=== PATIENT | female | born 1945 | race Caucasian/White ===

== ENCOUNTER → 2017-01-04 | Emergency (ER) | payer MEDICARE, MEDICAID ==
[~2017-01-04] VITALS: Ht 172.7 cm; Wt 100.0 kg
[~2017-01-04] MED LIST: ACET-2047 PO; ALPR0.25 PO; ALPR0.5T PO; AMLO5TAB4 PO; ARGI1POW19 PO; ASCO500C7 PO; BUDE0.5A INHALATION; BUDE1AMP INHALATION; CLOT15CR4 TP; CYAN500T46 PO; DIPH25CA6 PO; DOCU-144 PO; DULR PR; FER325 PO; FOLI-49 PO; HYDR-3671 PO; IPRA3AMP INHALATION; LEVA1.2527 INHALATION; METO25TA4 PO; MULTI PO; ONDA-43 PO; PANT40TA3 PO; RIVA20TA PO; SILD20TA13 PO; SS SC; UDROBAC PO; ZINC220C5 PO
--- NOTE | 2017-01-04 22:37 | ERA ---
ER Documentation Chief Complaint Date/Time DATE: 01/04/17 TIME: 22:37 Chief Complaint Abnormal lab HPI The patient is a 71-year-old female, presenting to the ER because of low hemoglobin 7.6 and low hematocrit 25.1 on January 03, 2017. She is unable to provide any history, the history is obtained per the stewardess supervisor and intermediate notes Past medical history: Chronic respiratory failure, history of gastrointestinal bleed, atrial fibrillation, anxiety, chronic respiratory failure, COPD, dysphagia, CAD, CHF, peripheral vascular disease, hypertension,pulmonary fibrosis Past surgical history: Tracheostomy. She had a colonoscopy that showed polyps and EGD that showed gastritis in October 2016 ROS All systems reviewed and are negative except as per history of present illness. Medications Home Meds Reported Medications Insulin Human Regular (Novolin-R U-100) 100 Unit/Ml Soln, 0 SC SLIDING SCALE AC , EA WITH MEALS 71-150 = 0 UNITS 151-200 = 2UNITS 201-250 = 4 UNITS 251-300 = 6 UNITS 301-350 = 8 UNITS 351-400 = 10 UNITS FOR BLOOD SUGAR ABOVE 400 GIVE 12 UNITS AND NOTIFY MD 01/04/17 Budesonide* (Budesonide*) 0.5 Mg/2 Ml Ampul.neb, 0.5 MG INHALATION BID, AMP 01/04/17 Alprazolam* (Xanax*) 0.25 Mg Tablet, 0.25 MG PO Q6 Y for ANXIETY, TAB 01/04/17 Ondansetron Hcl* (Zofran*) 4 Mg Tab, 4 MG PO Q6H Y for NAUSEA AND OR VOMITING, TAB 10/31/16 Levalbuterol Hcl* (Xopenex*) 1.25 Mg/3 Ml Vial.neb, 1.25 MG INHALATION Q6H Y for WHEEZING AND SOB, EA 10/31/16 Rivaroxaban* (Xarelto*) 20 Mg Tablet, 20 MG PO WITH DINNER, TAB 10/31/16 Ascorbic Acid* (Vitamin C*) 500 Mg Capsule.sa, 500 MG PO BID, CAP 10/31/16 Acetaminophen* (Acetaminophen*) 650 Mg Tablet, 650 MG PO Q4 Y for PAIN AND OR ELEVATED TEMP, #30 TAB 10/31/16 Sildenafil Citrate* (Revatio*) 20 Mg Tab, 20 MG PO TID, TAB 10/31/16 Pantoprazole* (Protonix*) 40 Mg Tablet.dr, 40 MG PO DAILY, TAB 10/31/16 Amlodipine Besylate* (Norvasc*) 5 Mg Tablet, 5 MG PO DAILY, TAB HOLD FOR SBP<110 OR PULSE<60 10/31/16 Multivitamins* (Theragran*) 1 Tab Tab, 1 TAB PO DAILY, TAB 10/31/16 Metoprolol Tartrate* (Lopressor*) 25 Mg Tablet, 25 MG PO BID, #60 TAB 10/31/16 Ipratropium-Albuterol (Ipratropium-Albuterol) 0.5-3 Mg/3 Ml Ampul.neb, 1 DOSE INHALATION Q6, #30 VIAL 10/31/16 Hydralazine Hcl* (Hydralazine Hcl*) 25 Mg Tab, 25 MG PO Q6H Y for ELEVATED BLOOD PRESSURE, #60 TAB 10/31/16 Guaifenesin-Codeine Phosphate* (Robitussin* AC) 5 Ml Syrup, 5 ML PO Q6H Y for COUGH, ML 10/31/16 Folic Acid* (Folic Acid*) 1 Mg Tablet, 1 MG PO DAILY, TAB 10/31/16 Ferrous Sulfate* (Ferrous Sulfate*) 325 Mg Tabec, 325 MG PO BID, TAB 10/31/16 Bisacodyl* (Bisacodyl*) 10 Mg Supp, 10 MG IN DAILY Y for CONSTIPATION, SUPP 10/31/16 Acetaminophen* (Acetaminophen*) 650 Mg Tablet, 650 MG PO Q4 Y for FEVER, #30 TAB 10/31/16 Discontinued Reported Medications Zinc Sulfate* (Zinc Sulfate*) 220 Mg Cap, 220 MG PO DAILY, CAP 10/31/16 Alprazolam* (Xanax*) 0.5 Mg Tab, 0.5 MG PO BID Y for ANXIETY, TAB 10/31/16 Cyanocobalamin* (Vitamin B12*) 500 Mcg Tab, 1000 MCG PO DAILY, TAB 10/31/16 Budesonide* (Pulmicort*) 1 Mg/2 Ml Ampul.neb, 1 DOSE INHALATION BID, #60 AMP 10/31/16 Clotrimazole/Betamethasone Dip (Lotrisone Cream) 15 Gm Cream..g., 1 APPLIC TP BID 10/31/16 Insulin Human Regular (Novolin-R U-100) 100 Unit/Ml Soln, 0-12 SC BID WITH MEALS , EA 10/31/16 Docusate Sodium* (Colace*) 100 Mg Capsule, 100 MG PO BID, #60 CAP 10/31/16 Diphenhydramine Hcl* (Diphenhydramine Hcl*) 25 Mg Capsule, 25 MG PO Q6 Y for ITCHING, CAP 10/31/16 Arginine/Ascorbate Sod/Antonio AC (Arginaid Powder) 1 Each Powd.pack, 1 EACH PO BID 10/31/16 Allergies Allergies: Coded Allergies: No Known Allergy (Unverified , 10/31/16) PMhx/Soc History of Surgery: No Anesthesia Reaction: No Hx Neurological Disorder: No Hx Respiratory Disorders: Yes (Pulmonary fibroids, trach to vent, COPD) Hx Cardiac Disorders: Yes (HTN, heart failure) Hx Psychiatric Problems: Yes (Anxiety) Hx Miscellaneous Medical Probl: Yes (Morbid obesity) Hx Alcohol Use: No Hx Substance Use: No Hx Tobacco Use: No Physical Exam Vitals Vital Signs Date Time Temp Pulse Resp B/P Pulse Ox O2 Delivery O2 Flow Rate FiO2 01/05/17 01:10 77 20 98 40 01/05/17 01:06 98.6 01/05/17 00:00 74 20 122/56 100 Mechanical Ventilator 01/04/17 22:42 92 26 144/99 97 Mechanical Ventilator 01/04/17 22:40 83 27 99 40 01/04/17 22:39 97.6 108 21 144/99 95 Physical Exam Const: No acute distress. Head: Atraumatic. Eyes: Normal Conjunctiva. ENT: Normal External Ears, Nose and Mouth. Neck: Full range of motion. No meningismus. Tracheostomy Resp: Clear to auscultation bilaterally. Cardio: Regular rate and rhythm, no murmurs. Abd: Soft, non distended, normal bowel sounds, non tender. Skin: No petechiae or rashes. Back: No midline or flank tenderness. Ext: No cyanosis, or edema. Neur: Limited due to her condition Psych: Limited due to her condition Result Diagram: 01/04/17225701/04/172257 Results 24 hrs Laboratory Tests Test 01/04/17 22:58 Activated Partial Thromboplast Time 32.8Sec Alanine Aminotransferase (ALT/SGPT) 31IU/L Albumin 3.6g/dl Albumin/Globulin Ratio 0.87 Alkaline Phosphatase 175IU/L Anion Gap 17 Aspartate Amino Transf (AST/SGOT) 23IU/L Blood Urea Nitrogen 27mg/dl Calcium Level 9.4mg/dl Carbon Dioxide Level 26mmol/L Chloride Level 102mmol/L Creatinine 1.39mg/dl Direct Bilirubin 0.00mg/dl Eosinophils # 2.410^3/ul Eosinophils % 21.0% Globulin 4.10g/dl Glucose Level 110mg/dl Hematocrit 26.3% Hemoglobin 8.0g/dl INR International Normalized Ratio 1.16 Indirect Bilirubin 0.1mg/dl Lymphocytes # 1.310^3/ul Lymphocytes % 11.0% Mean Corpuscular Hemoglobin 29.4pg Mean Corpuscular Hemoglobin Concent 30.4g/dl Mean Corpuscular Volume 96.7fl Mean Platelet Volume 9.2fl Monocytes # 0.110^3/ul Monocytes % 1.0% Neutrophils # 7.810^3/ul Neutrophils % 67.0% Platelet Count 50032^3/UL Potassium Level 4.9mmol/L Prothrombin Time 14.8Sec Prothrombin Time Ratio 1.2 Red Blood Count 2.7210^6/ul Red Cell Distribution Width 17.1% Sodium Level 140mmol/L Total Bilirubin 0.1mg/dl Total Protein 7.7g/dl White Blood Count 11.610^3/ul Procedures/MDM MEDICAL MAKING DECISION: The patient is a 71-year-old male, presenting with chronic anemia. He does not require any emergent blood transfusion. I do not suspect any acute GI bleeding. The differential diagnoses considered include but are not limited to gastritis, peptic ulcer disease, esophageal varices, Lita-Fontanez tear, carcinoma, polyp, hemorrhoid, fissure, diverticulosis, angiodysplasia. Departure Diagnosis: Primary Impression: Anemia Condition: Good Comments I discussed the finding with her physician Dr Elder Vasquez I discussed the findings with the patient and my discussion with Dr. Vasquez. I advised the patient to follow-up with the primary physician in about 1-2 days, sooner if needed and return if any concern. MAYLIN NATHAN MD Jan 04, 2017 22:37
[2017-01-04 22:39] VITALS: Ht 172.7 cm; Wt 100.0 kg
[2017-01-04 23:52] LABS: ABNORMAL IP MESSAGE 1; HEMATOCRIT 26.3 % (37.0-47.0); MEAN CORPUSCULAR HEMOGLOBIN 29.4 pg (29.0-33.0); MEAN CORPUSCULAR HGB CONC 30.4 g/dl (32.0-37.0); MEAN CORPUSCULAR VOLUME 96.7 fl (82.0-101.0); MEAN PLATELET VOLUME 9.2 fl (7.4-10.4); PLATELET COUNT 398 10^3/UL (140-415); RED BLOOD COUNT 2.72 10^6/ul (4.20-5.40); RED CELL DISTRIBUTION WIDTH 17.1 % (11.5-14.5); WHITE BLOOD COUNT 11.6 10^3/ul (4.8-10.8)
[2017-01-04 23:54] LABS: ADD SCAN DIFF YES
[2017-01-05 00:03] LABS: ALBUMIN 3.6 g/dl (3.3-4.9)
[2017-01-05 00:04] LABS: INR 1.16; PARTIAL THROMBOPLASTIN TIME 32.8 Sec (25.0-35.0); POTASSIUM 4.9 mmol/L (3.5-5.1); PROTIME 14.8 Sec (12.2-14.2); PT RATIO 1.2
[2017-01-05 00:06] LABS: ALBUMIN/GLOBULIN RATIO 0.87; BILIRUBIN,INDIRECT 0.1 mg/dl (0-1.1); BILIRUBIN,TOTAL 0.1 mg/dl (0.2-1.3); CALCIUM 9.4 mg/dl (8.4-10.2); CREATININE 1.39 mg/dl (0.44-1.00); TOTAL PROTEIN 7.7 g/dl (6.1-8.1)
[2017-01-05 01:06] VITALS: TEMP 98.6
[2017-01-05 01:33] LABS: EOSINOPHILS # 2.4 10^3/ul (0.0-0.5); LYMPHOCYTES # 1.3 10^3/ul (0.8-2.9); MONOCYTE # 0.1 10^3/ul (0.3-0.9); NEUTROPHIL # 7.8 10^3/ul (1.6-7.5)
[2017-01-05 03:55] VITALS: BP 107/58; PULSE 66; RESP 18
== END | disposition home or self-care (01) ==
LOC: E/R 22:29
DX: D64.9 Anemia, unspecified (principal); I10 Essential (primary) hypertension; I50.9 Heart failure, unspecified; I25.10 Atherosclerotic heart disease of native coronary artery without angina pectoris; J44.9 Chronic obstructive pulmonary disease, unspecified; E11.9 Type 2 diabetes mellitus without complications; E66.01 Morbid (severe) obesity due to excess calories; Z79.4 Long term (current) use of insulin; Z68.33 Body mass index [BMI] 33.0-33.9, adult
CPT/HCPCS: 36415; 80053; 85025; 85610; 85730; 86850; 86900; 86901; 93005; 94002

== ENCOUNTER → 2018-01-03 | Outpatient (CLI) | END | disposition home or self-care (01) ==

== ENCOUNTER 2018-03-05 13:12 | Inpatient (IN) | END 2018-03-19 20:50 | DRG 177 ==

== ENCOUNTER 2018-05-10 14:25 | Inpatient (IN) | END 2018-05-21 17:00 | DRG 207 ==

== ENCOUNTER 2018-07-23 21:43 | Inpatient (IN) | END 2018-07-31 21:15 | DRG 853 ==

== ENCOUNTER 2018-10-23 11:57 | Inpatient (IN) | END 2018-10-26 14:14 | DRG 291 ==

== ENCOUNTER 2018-10-27 07:39 | Inpatient (IN) | payer MEDICARE, OTHER ==
[~2018-10-27] VITALS: Ht 157.5 cm; Wt 86.9 kg
[2018-10-27] VITALS (23 sets, daily range): BP systolic 120–158; BP diastolic 58–132; PULSE 87–138; RESP 17–19; Ht 157.5 cm; Wt 86.9 kg
[~2018-10-27 07:39] MED LIST changes: -ACET-2047 PO; +ACET325T33 PO; +ALLO100T PO; -ALPR0.25 PO; -ALPR0.5T PO; -AMLO5TAB4 PO; -ARGI1POW19 PO; +ASC500 PO; -ASCO500C7 PO; +ATOR20TA38 PO; +BETH25TA PO; -BUDE0.5A INHALATION; -BUDE1AMP INHALATION; -CLOT15CR4 TP; +CYAN100080 PO; -CYAN500T46 PO; -DIPH25CA6 PO; -DULR PR; +EPO10ESRD SC; -HYDR-3671 PO; -IPRA3AMP INHALATION; +IPRA3AMP29 INHALATION; +L. A1CAP12 PO; +LANS30CA PO; -LEVA1.2527 INHALATION; +MAGN400O19 PO; +MEGE400O4 PO; -METO25TA4 PO; +MINE133E23 PR; +MULT-275 PO; -ONDA-43 PO; +ONDA4TAB13 PO; -RIVA20TA PO; -SILD20TA13 PO; -SS SC; -UDROBAC PO; -ZINC220C5 PO
[2018-10-27] MEDS ORDERED: SOD CHLORIDE 0.9% 1,000 ML IV STA (07:41)
[2018-10-27] MEDS ORDERED: DILTIAZEM 25 MG INJ IV ONE (08:00)
[2018-10-27] MEDS ORDERED: DILTIAZEM-D5W 125MG/125ML DRIP 125 ML IV STA (08:00)
[2018-10-27] MEDS ORDERED: CEFEPIME 2GM/50 ML (PMX) 50 ML IVPB STA (08:42)
[2018-10-27] MEDS ORDERED: SODIUM CHLORIDE 0.9% 1L BAG IV* STA (08:42)
[2018-10-27] MEDS ORDERED: VANCOMYCIN 1 GM (PMX) 250 ML IVPB ONE (09:00)
[2018-10-27] MEDS ORDERED: LORAZEPAM 2 MG INJ IV ONE (09:00)
[2018-10-27] MEDS ORDERED: DIPHENHYDRAMINE 50 MG INJ IV ONE (09:00)
--- NOTE | 2018-10-27 09:05 | ERD ---
ER Documentation Chief Complaint Chief Complaint evevated pulse rate x 30 minutes HPI This is a 73-year-old female trach to vent dependent patient who currently have been admitted to [place]. The patient was transferred to the emergency department after the patient had developed severe tachycardia. The patient's heart rate was 170. The patient has a history of congestive heart failure. The patient had no documentation of fevers. There is no coughing choking or gagging episode. The patient is bedbound. No further history is available. Upon reviewing the patient's medication list she does take digoxin. ROS All systems reviewed and are negative except as per history of present illness. Medications Home Meds Reported Medications Morphine Sulfate* (Morphine* Liq) 10 Mg/0.5 Ml Disp.syrin, 6 ML SL Q4H PRN for PAIN, ML 10/27/18 Metoprolol Tartrate* (Lopressor*) 25 Mg Tab, 25 MG PO BID, #60 TAB HOLD FOR SBP<110 OR HR<60 10/27/18 Levalbuterol Hcl* (Levalbuterol Hcl*) 1.25 Mg/0.5 Ml Vial.neb, 1.25 MG INHALATION Q6H, VIAL 10/27/18 Furosemide* (Lasix*) 20 Mg Tablet, 20 MG PO DAILY, TAB 10/27/18 Famotidine* (Famotidine*) 20 Mg Tablet, 20 MG PO DAILY, #30 TAB 10/27/18 Digoxin* (Digitek*) 125 Mcg Tablet, 0.125 MG PO DAILY, TAB 10/27/18 Collagenase* (Santyl*) 30 Gm Oint..gm., 1 APPLIC TOP .SOILED PRN for SOILED, #1 TUB 10/27/18 Ceftriaxone Na/Dextrose,Iso (Ceftriaxone 1 gm Piggyback) 1 Gm/50 Ml Froz.piggy, 1 GM IV Q24H START 10/25/18-11/01/18 10/27/18 Budesonide* (Budesonide*) 0.5 Mg/2 Ml Ampul.neb, 0.5 MG INHALATION BID, AMP 10/27/18 Apixaban* (Eliquis*) 2.5 Mg Tablet, 2.5 MG PO BID, TAB 10/27/18 Ipratropium-Albuterol (Ipratropium-Albuterol) 0.5-3 Mg/3 Ml Ampul.neb, 3 ML INHALATION Q6, #30 VIAL 10/22/18 Lansoprazole* (Lansoprazole*) 30 Mg Capsule.dr, 30 MG PO DAILY, CAP 10/22/18 Multivitamin with Minerals (Daily Vitamin Formula-Minerals) 1 Each Tablet, 1 EACH PO, TAB 10/22/18 Megestrol Acetate (Megestrol Acetate) 400 Mg/10 Ml Oral.susp, 400 MG PO BID, ML 10/22/18 Bethanechol Chloride* (Bethanechol Chloride*) 25 Mg Tablet, 25 MG PO TID, TAB 10/22/18 Ondansetron Hcl* (Zofran*) 4 Mg Tab, 4 MG PO Q6H PRN for NAUSEA AND OR VOMITING, TAB 05/10/18 L. Acidophilus/Pectin, [place] (Acidophilus Capsule) 1 Each Capsule, 1 EACH PO DAILY, CAP 05/10/18 Epoetin Amor (Epogen) 10,000 Units/Ml Soln, 1.5 ML SC Q MON,WED,FRI,5PM, VIAL 05/10/18 Cyanocobalamin* (Vitamin B-12*) 1,000 Mcg Tablet.sa, 1000 MCG PO BID, TAB 05/10/18 Folic Acid* (Folic Acid*) 1 Mg Tablet, 1 MG PO DAILY, TAB 05/10/18 Pantoprazole* (Protonix*) 40 Mg Tablet.dr, 40 MG PO QAM, TAB 05/10/18 Atorvastatin Calcium* (Atorvastatin Calcium*) 20 Mg Tablet, 20 MG PO QHS, #30 TAB 05/10/18 Allopurinol* (Allopurinol*) 100 Mg Tablet, 100 MG PO BID for GOUT, TAB 05/10/18 Mineral Oil* (Fleet* Mineral Oil Enema) 133 Ml Oil, 1 APPLIC AL NEEDED PRN for Q2DAYS, ENEMA 05/10/18 Magnesium Hydroxide* (Milk Of Magnesia*) 400 Mg/5 Ml Oral.susp, 30 ML PO Q24H PRN for PRN, ML 05/10/18 Docusate Sodium* (Colace*) 100 Mg Capsule, 100 MG PO Q9PM, #30 CAP 05/10/18 Ferrous Sulfate* (Ferrous Sulfate*) 325 Mg Tabec, 325 MG PO DAILY, TAB 05/10/18 Ascorbic Acid (Vitamin C) 500 Mg Tab, 500 MG PO DAILY, TAB 05/10/18 Multivitamins* (Theragran*) 1 Tab Tab, 1 TAB PO DAILY, TAB 05/10/18 Acetaminophen* (Tylenol*) 325 Mg Tablet, 650 MG PO NEEDED PRN for TRACH TUBE CHANGE, TAB 05/10/18 Discontinued Reported Medications Hydrocodone/Acetaminophen ([place] 5-325 Tablet) 1 Each Tablet, 1 EACH PO, TAB 10/22/18 Digoxin* (Lanoxin*) 0.125 Mg Tablet, 0.125 MG PO DAILY, TAB 10/22/18 Tramadol Hcl* (Ultram*) 50 Mg Tablet, 50 MG PO Q6H PRN for PAIN, TAB 10/22/18 Rivaroxaban* (Xarelto*) 20 Mg Tablet, 20 MG PO WITH DINNER, TAB 05/10/18 Metoprolol Tartrate* (Lopressor*) 50 Mg Tab, 50 MG PO BID, #60 TAB HOLD FOR SBP<110 OR HR<60 05/10/18 Bisacodyl* (Bisacodyl*) 10 Mg Supp, 10 MG AL Q24H for CONSTIPATION, SUPP 05/10/18 Acetaminophen* (Tylenol*) 500 Mg Tab, 1000 MG PO Q4H PRN for PAIN LEVEL 4-10, TAB 05/10/18 Acetaminophen* (Tylenol*) 325 Mg Tablet, 650 MG PO BID PRN for PAIN, TAB 05/10/18 Acetaminophen* (Tylenol*) 325 Mg Tablet, 650 MG PO Q4H PRN for MILD PAIN LEVEL 1-3, TAB and fever 101 and above 05/10/18 Allergies Allergies: Coded Allergies: No Known Allergy (Unverified , 10/27/18) PMhx/Soc History of Surgery: Yes (Trach ) Hx Neurological Disorder: No Hx Respiratory Disorders: Yes (Trach, Respiratory failure, Pulmonary fibrosis) Hx Cardiac Disorders: Yes (CHF, HTN, HLD, Afib) Hx Psychiatric Problems: No Hx Miscellaneous Medical Probl: Yes (Anemia) Smoking Status: Unknown if ever smoked Physical Exam Vitals Vital Signs Date Temp Pulse Resp B/P (MAP) Pulse Ox O2 O2 Flow FiO2 Time Delivery Rate 10/27/18 126 18 145/72 98 Mechanical 09:58 (96) Ventilator Trach Collar 10/27/18 156 18 60 08:47 10/27/18 98.0 151 20 152/88 100 BIPAP 08:11 (109) 10/27/18 98.9 168 20 152/88 100 07:45 (109) Physical Exam Constitutional:Well-developed. Debilitated bedbound patient HEENT:Normocephalic. Atraumatic.Pupils were equal round reactive to light and patient has left-sided gaze. Moist mucous membranes. NECK: No nuchal rigidity. No lymphadenopathy. No posterior cervical spine tenderness or step-offs. Tracheostomy site is clean dry and intact Respiratory: Not using accessory muscles of respiration.Lungs were clear to auscultation bilaterally. No rhonchi. No rales. No wheezing. Cardiovascular: Tachycardic with irregular regular rhythm. No murmurs. No rubs were appreciated.S1, S2 normal. Distal pulses are palpable 2+ bilaterally. GI: Abdomen was soft. Nontender. Non Distended. No pulsatile abdominal masses or bruits. No rebound. No guarding. Bowel sounds were present and normal. Muscle skeletal: Patient has no movement of the upper or lower extremities Skin: No petechia, no purpura. No lesions on the palms or the soles of the feet. No maculopapular rash. NEURO: Patient was alert with eyes open. Patient does not follow verbal command. Patient is aphasic and bedbound. Result Diagram: 10/27/1881310/27/18813 Results 24 hrs Laboratory Tests Test 10/27/18 08:14 10/27/18 09:25 White Blood Count 20.0 10^3/ul Red Blood Count 4.35 10^6/ul Hemoglobin 13.1 g/dl Hematocrit 44.7 % Mean Corpuscular Volume 102.8 fl Mean Corpuscular Hemoglobin 30.1 pg Mean Corpuscular Hemoglobin Concent 29.3 g/dl Red Cell Distribution Width 15.3 % Platelet Count 301 10^3/UL Mean Platelet Volume 10.0 fl Immature Granulocytes % 0.800 % Neutrophils % 89.2 % Lymphocytes % 7.5 % Monocytes % 2.4 % Eosinophils % 0.0 % Basophils % 0.1 % Nucleated Red Blood Cells % 0.1 /100WBC Immature Granulocytes # 0.170 10^3/ul Neutrophils # 17.8 10^3/ul Lymphocytes # 1.5 10^3/ul Monocytes # 0.5 10^3/ul Eosinophils # 0.0 10^3/ul Basophils # 0.0 10^3/ul Nucleated Red Blood Cells # 0.0 10^3/ul Prothrombin Time 14.2 Sec Prothrombin Time Ratio 1.1 INR International Normalized Ratio 1.09 Activated Partial Thromboplast Time 22.3 Sec Sodium Level 140 mmol/L Potassium Level 4.6 mmol/L Chloride Level 101 mmol/L Carbon Dioxide Level 26 mmol/L Anion Gap 13 Blood Urea Nitrogen 48 mg/dl Creatinine 1.55 mg/dl Est Glomerular Filtrat Rate mL/min mL/min Glucose Level 215 mg/dl Calcium Level 8.8 mg/dl Total Bilirubin 0.3 mg/dl Direct Bilirubin 0.00 mg/dl Indirect Bilirubin 0.3 mg/dl Aspartate Amino Transf (AST/SGOT) 32 IU/L Alanine Aminotransferase (ALT/SGPT) 45 IU/L Alkaline Phosphatase 81 IU/L Creatine Kinase < 20 IU/L Creatine Kinase Index Creatinine Kinase MB (Mass) 0.74 ng/ml Troponin I 0.092 ng/ml B-Type Natriuretic Peptide 20700 PG/ML Total Protein 6.6 g/dl Albumin 3.5 g/dl Globulin 3.10 g/dl Albumin/Globulin Ratio 1.12 Digoxin Level 0.9 ng/ml POC Venous Lactate 2.3 mmol/L Current Medications Medications Dose Sig/Ale Start Time Status Last (Trade) Ordered Route PRN Stop Time Admin Dose Reason Admin Diltiazem 20 mg ONCE ONCE 10/27/18 DC 10/27/18 HCl IV 08:00 07:59 (Cardizem Iv) 10/27/18 08:01 Sodium 1,000 ml @ Q1H STAT 10/27/18 DC 10/27/18 Chloride 1,000 mls/hr IV 07:41 07:58 10/27/18 08:40 Diltiazem 125 ml @ 5 ONCE STAT 10/27/18 10/27/18 HCl mls/hr IV 08:00 08:46 10/28/18 08:59 50 mg ONCE ONCE 10/27/18 DC 10/27/18 Diphenhydrami IV 09:00 08:38 ne HCl 10/27/18 (Benadryl) 09:01 Lorazepam 1 mg ONCE ONCE 10/27/18 DC 10/27/18 (Ativan) IV 09:00 08:39 10/27/18 09:01 Sodium 1,910 ml BOLUS OVER 2 10/27/18 DC 10/27/18 Chloride HOURS STAT 08:42 09:49 (NS) IV* 10/27/18 08:48 Cefepime HCl 50 ml @ ONCE STAT 10/27/18 DC 10/27/18 100 mls/hr IVPB 08:42 09:49 10/27/18 09:11 Vancomycin 250 ml @ ONCE ONCE 10/27/18 HCl 125 mls/hr IVPB 09:00 10/27/18 10:59 Amiodarone 100 ml ONCE STAT 10/27/18 DC 10/27/18 HCl IV* 09:18 09:38 (Cordarone 10/27/18 150mg/ D5W 09:19 Bolus) Digoxin 0.125 mg ONCE ONCE 10/27/18 DC (Digoxin) PO 09:30 10/27/18 09:31 1 inch ONCE STAT 10/27/18 DC 10/27/18 Nitroglycerin TD 09:20 09:30 10/27/18 (Nitroglyceri 09:23 n 2% Oint) Procedures/MDM This is a 73-year-old female that was transferred from [place] to the emergency department for evaluation of tachycardia. Patient was placed on a mammographer continuous pulse oximetry and IV access was established by nursing staff. The patient appeared to be in atrial fibrillation with rapid ventricular response. The patient was given 20 mg of Cardizem intravenously and started on a Cardizem drip with minimal improvement of the tachycardia. I obtained a digoxin level which was subtherapeutic and therefore administered digoxin and amiodarone to the patient. 12 Lead EKG tracing ordered and reviewed by myself showed: Irregular irregular rhythm with tachycardia 167 bpm and no arrhythmia. AL interval not present as P waves are not appreciated due to atrial fibrillation QRS duration normal. No ST segment elevation No ST segment depression. No changes consistent with acute ischemia. The patient had significant leukocytosis with white blood cell count of 20,000. Therefore I did obtain blood cultures and a lactic acid to evaluate for possible sepsis. However the patient was afebrile and did not initially meet Sirs criteria. IV fluids were given to the patient with a 30 cc/kg bolus of normal saline but this was monitored very closely in order to prevent fluid overload as the patient also has a history of congestive heart failure with a significantly elevated BNP. Blood pressure was controlled and nitroglycerin paste was placed onto the patient. Patient's infectious symptoms have not stabilized and the patient is at risk of rapid decompensation. The patient will be admitted for careful hydration, antibiotic therapy, and infectious source control. Severe Sepsis Assessment: Infectious Source: Unknown End organ damage indicated by: Lactate > 2.0 mmol/L Severe Sepsis Managment: Blood Cultures X 2 before broad spectrum antibiotics initiated within 3 hours of recognition. 30 ml/kg NS bolus Completed Initial Lactate: 2.3 Repeat Lactate pending I considered further perfusion assessment with CVP measurement, SCVO2, bedside ultrasound volume assessment, passive leg raise, trial of further fluid bolus. And preceded with gentle IV fluid hydration The patient will be admitted in serious condition to the intensive care unit under the care of Dr. Vasquez who is taking call for Dr. Phillips. Critical Care: Time: 80 minutes Treatments/Evaluations: Close monitoring and treatment of unstable vital signs, cardiorespiratory, and neurologic status, while maintaining tight balance of fluid, respiratory, and cardiac interventions. Time does not include performing any of the above billable procedures. Departure Diagnosis: Primary Impression: Atrial fibrillation with RVR Additional Impressions: CHF (congestive heart failure) Heart failure type: unspecified Heart failure chronicity: acute on chronic Qualified Codes: I50.9 - Heart failure, unspecified Sepsis Sepsis type: sepsis due to unspecified organism Qualified Codes: A41.9 - Sepsis, unspecified organism Condition: Serious HUSSEIN WORKMAN MD Oct 27, 2018 09:05
[2018-10-27] MEDS ORDERED: AMIODARONE 150MG/D5W BOLUS IV* STA (09:18)
[2018-10-27] MEDS ORDERED: NITROGLYCERIN 2% 1 GM OINT PKT TD STA (09:20)
[2018-10-27] MEDS ORDERED: DIGOXIN 0.125 MG TAB PO ONE (09:30)
[2018-10-27] MEDS ORDERED: APIX2.5T PO (10:29)
[2018-10-27] MEDS ORDERED: BUDE0.5A INHALATION (10:30)
[2018-10-27] MEDS ORDERED: CEFT1FRO2 IV (10:32)
[2018-10-27] MEDS ORDERED: SAN30GM TOP (10:33)
[2018-10-27] MEDS ORDERED: FAMO20TA18 PO (10:34)
[2018-10-27] MEDS ORDERED: DIGO125T PO (10:34)
[2018-10-27] MEDS ORDERED: FURO-110 PO (10:35)
[2018-10-27] MEDS ORDERED: LEVA1.25 INHALATION (10:37)
[2018-10-27] MEDS ORDERED: METO-448 PO (10:38)
[2018-10-27] MEDS ORDERED: MORP10DI10 SL (10:40)
[2018-10-27] MEDS ORDERED: MAGN400T28 PO (10:44)
[2018-10-27] MEDS ORDERED: MAGN400O19 PO (10:45)
[2018-10-27] MEDS ORDERED: METH40VI IV (10:48)
[2018-10-27] MEDS ORDERED: LORAZEPAM 2 MG INJ IV PRN (12:00)
[2018-10-27] MEDS ORDERED: DIGOXIN 500 MCG INJ IV ONE ×4 (12:00→18:00)
--- NOTE | 2018-10-27 12:00 | HP ---
Date/Time of Note Date/Time of Note DATE: 10/27/18 TIME: 11:56 Assessment/Plan VTE Prophylaxis Pharmacological prophylaxis: LMWH Lines/Catheters IV [facility] Saline Lock Urinary Cath still in place: Yes Reason Cath still needed: skin wounds contaminated by urine Assessment/Plan Hospital Course 1) atrial fibrillation - on cardizem drip - will try to restart digoxin IV since the patient is not tolerating oral medication 2) respiratory failure - on vent via trach - continue to monitor 3) possible seizure activity - ativan prn - consider neurology consult for possible EEG and other work up HPI/ROS Admit Date/Time Admit Date/Time Oct 27, 2018 at 08:14 Hx of Present Illness Patient with history of atrial fibrillation, hypertension, pulmonary edema, respiratory failure, COPD was inpatient at [facility] day prior to this current admission. Patient was transferred to [facility] for continued care of her respiratory failure. Early this morning, patient was noted to have worsening tachycardia with atrial fibrillation with possible seizure activity. Rapid response was called and because of her worsening condition, patient was transferred to the Emergency Room and then admitted to the ICU. PMH/Family/Social Past Medical History atrial fibrillation, respiratory failure, pulmonary fibrosis Medical History: coronary artery disease, hypertension Coded Allergies: No Known Allergy (Unverified , 10/27/18) Past Surgical History Past Surgical Hx: other Family History Significant Family History: no pertinent family hx Social History Smoking Status: Unknown if ever smoked Exam/Review of Systems Vital Signs Vitals Vital Signs Date Temp Pulse Resp B/P (MAP) Pulse Ox O2 O2 Flow FiO2 Time Delivery Rate 10/27/18 60 11:35 10/27/18 116 11:19 10/27/18 19 11:10 10/27/18 145/72 98 Mechanical 09:58 (96) Ventilator Trach Collar 10/27/18 98.0 08:11 Exam Constitutional: well developed Head: normocephalic, atraumatic Neck: supple Respiratory: diminished breath sounds Cardiovascular: regular rate and rhythm Gastrointestinal: soft, non-tender Extremities: normal pulses Medications Medications Current Medications Diltiazem HCl 125 ml @ 5 mls/hr ONCE STAT IV Last administered on 10/27/18at 08:46; Admin Dose 5 MLS/HR; Start 10/27/18 at 08:00; Stop 10/28/18 at 08:59 Digoxin (Digoxin) 0.125 mcg NOW ONCE IV ; Start 10/27/18 at 12:00; Stop 10/27/18 at 12:01 Results Result Diagram: 10/27/18 0814 10/27/18 0814 Results 24 hrs Laboratory Tests Test 10/27/18 08:14 10/27/18 09:25 White Blood Count 20.0 #H Red Blood Count 4.35 Hemoglobin 13.1 Hematocrit 44.7 Mean Corpuscular Volume 102.8 H Mean Corpuscular Hemoglobin 30.1 Mean Corpuscular Hemoglobin Concent 29.3 L Red Cell Distribution Width 15.3 H Platelet Count 301 # Mean Platelet Volume 10.0 Immature Granulocytes % 0.800 H Neutrophils % 89.2 H Lymphocytes % 7.5 L Monocytes % 2.4 Eosinophils % 0.0 Basophils % 0.1 Nucleated Red Blood Cells % 0.1 H Immature Granulocytes # 0.170 H Neutrophils # 17.8 H Lymphocytes # 1.5 Monocytes # 0.5 Eosinophils # 0.0 Basophils # 0.0 Nucleated Red Blood Cells # 0.0 Prothrombin Time 14.2 Prothrombin Time Ratio 1.1 INR International Normalized Ratio 1.09 Activated Partial Thromboplast Time 22.3 L Sodium Level 140 Potassium Level 4.6 Chloride Level 101 Carbon Dioxide Level 26 Anion Gap 13 Blood Urea Nitrogen 48 H Creatinine 1.55 H Est Glomerular Filtrat Rate mL/min Glucose Level 215 Calcium Level 8.8 Total Bilirubin 0.3 Direct Bilirubin 0.00 Indirect Bilirubin 0.3 Aspartate Amino Transf (AST/SGOT) 32 Alanine Aminotransferase (ALT/SGPT) 45 Alkaline Phosphatase 81 Creatine Kinase < 20 L Creatine Kinase Index Creatinine Kinase MB (Mass) 0.74 Troponin I 0.092 B-Type Natriuretic Peptide 30772 H Total Protein 6.6 Albumin 3.5 Globulin 3.10 Albumin/Globulin Ratio 1.12 Digoxin Level 0.9 L POC Venous Lactate 2.3 *H ROSALVA SANCHES Oct 27, 2018 12:00
[2018-10-27] MEDS: SOD CHLORIDE 0.9% 1,000 ML IV SCH (12:19)
--- NOTE | 2018-10-27 12:46 | CONS ---
Date/Time of Note Date/Time of Note DATE: 10/27/18 TIME: 12:42 Assessment/Plan Assessment/Plan Additional Assessment/Plan Chest x-ray is pending. Urine analysis grossly positive for UTI. Ventilator setting; AC of 16, tidal volume 500, PEEP of 5, 60% FiO2. Assessment recommendations; next 1. Patient with history of chronic encephalopathy and VDR F admitted for A. fib with RVR. Rate is improving on Cardizem drip. 2. UTI. With significant leukocytosis. Currently on appropriate antimicrobial regimen. Continue current supportive care. Antibiotic adjustment to be done once urine culture results are obtained. Further recommendations per crusher setter. Consultation Date/Type/Reason Admit Date/Time Oct 27, 2018 at 08:14 Date of Consultation: Oct 27, 2018 Type of Consult Pulmonary/critical care history of presenting illness; Patient is a 73-year-old lady who was transferred over to ICU from [facility] after developing A. fib with RVR. Rapid response was called in, patient be transferred to ICU and started on Cardizem drip with improvement in heart rate. Patient has chronic encephalopathy as well as VDR F and was unable to give any history by herself whatsoever. However by the time I saw her, patient is on ventilator via tracheostomy and did not appear to be in any distress. Past medical history; 1. History of chronic encephalopathy. 2. VDR F. 3. Status post tracheostomy and G-tube placement. Medications; reviewed. Allergies; none. Family history; not available. Patient apparently does not have any family. Occupational history; not available. Review of system; unable to be obtained. General exam; elderly woman, on ventilator via tracheostomy, awake but noncommunicative. Currently in no distress. Reason for Consultation HEENT exam; supple neck, no JVD. No lymphadenopathy. Midline trachea. No thyromegaly. Patient is edentulous. Tracheostomy in place. Chest exam; diminished but clear breath sounds. S1-S2 audible, no murmurs. Irregular rhythm. Tachycardic. Abdomen exam; soft, no organomegaly. G-tube in place. Bowel sounds audible. Extremity exam; no peripheral edema. Patient does have patchy ecchymosis. PATIENT SUPPORT REPRESENTATIVE exam; patient is awake but noncommunicative. Past Medical History Medical History: coronary artery disease, hypertension Past Surgical History Past Surgical Hx: other Social History Smoking Status: Unknown if ever smoked Exam/Review of Systems Vital Signs Vitals Vital Signs Date Temp Pulse Resp B/P (MAP) Pulse Ox O2 O2 Flow FiO2 Time Delivery Rate 10/27/18 60 11:35 10/27/18 116 11:19 10/27/18 19 11:10 10/27/18 145/72 98 Mechanical 09:58 (96) Ventilator Trach Collar 10/27/18 98.0 08:11 Medications Medications Current Medications Diltiazem HCl 125 ml @ 5 mls/hr ONCE STAT IV Last administered on 10/27/18at 08:46; Admin Dose 5 MLS/HR; Start 10/27/18 at 08:00; Stop 10/28/18 at 08:59 Lorazepam (Ativan) 1 mg Q6H PRN IV agitation, seizure activity; Start 10/27/18 at 12:00 Enoxaparin Sodium (Lovenox) 30 mg DAILY SC ; Start 10/28/18 at 09:00 Sodium Chloride 1,000 ml @ 75 mls/hr [id number] IV Last administered on 10/27/18at 12:19; Admin Dose 75 MLS/HR; Start 10/27/18 at 12:30 Results Result Diagram: 10/27/18 0814 10/27/18 0814 Results 24 hrs Laboratory Tests Test 10/27/18 08:14 10/27/18 09:25 10/27/18 10:50 White Blood Count 20.0 #H Red Blood Count 4.35 Hemoglobin 13.1 Hematocrit 44.7 Mean Corpuscular Volume 102.8 H Mean Corpuscular Hemoglobin 30.1 Mean Corpuscular 29.3 L Hemoglobin Concent Red Cell Distribution Width 15.3 H Platelet Count 301 # Mean Platelet Volume 10.0 Immature Granulocytes % 0.800 H Neutrophils % 89.2 H Lymphocytes % 7.5 L Monocytes % 2.4 Eosinophils % 0.0 Basophils % 0.1 Nucleated Red Blood Cells % 0.1 H Immature Granulocytes # 0.170 H Neutrophils # 17.8 H Lymphocytes # 1.5 Monocytes # 0.5 Eosinophils # 0.0 Basophils # 0.0 Nucleated Red Blood Cells # 0.0 Prothrombin Time 14.2 Prothrombin Time Ratio 1.1 INR International 1.09 Normalized Ratio Activated 22.3 L Partial Thromboplast Time Sodium Level 140 Potassium Level 4.6 Chloride Level 101 Carbon Dioxide Level 26 Anion Gap 13 Blood Urea Nitrogen 48 H Creatinine 1.55 H Est Glomerular Filtrat Rate mL/min Glucose Level 215 Calcium Level 8.8 Total Bilirubin 0.3 Direct Bilirubin 0.00 Indirect Bilirubin 0.3 Aspartate Amino 32 Transf (AST/SGOT) Alanine 45 Aminotransferase (ALT/SGPT) Alkaline Phosphatase 81 Creatine Kinase < 20 L Creatine Kinase Index Creatinine Kinase MB (Mass) 0.74 Troponin I 0.092 B-Type Natriuretic Peptide 04370 H Total Protein 6.6 Albumin 3.5 Globulin 3.10 Albumin/Globulin Ratio 1.12 Digoxin Level 0.9 L POC Venous Lactate 2.3 *H Urine Color YELLOW Urine Clarity SLIGHTLY CLOUDY A Urine pH 6.0 Urine Specific [place] 1.008 Urine Ketones NEGATIVE Urine Nitrite NEGATIVE Urine Bilirubin NEGATIVE Urine Urobilinogen NEGATIVE Urine Leukocyte Esterase 3+ H Urine Microscopic RBC 8 H Urine Microscopic WBC 92 H Urine Bacteria MANY A Urine Mucus MANY A Urine Hemoglobin 1+ H Urine Glucose NEGATIVE Urine Total Protein NEGATIVE GABRIEL TODD Oct 27, 2018 12:46
[2018-10-27] MEDS: ENOXAPARIN 60 MG/0.6 ML SYG SC SCH (14:12)
--- NOTE | 2018-10-27 19:29 | CONS ---
DATE OF ADMISSION: 10/26/2018 DATE OF CONSULTATION: 10/27/2018 REASON FOR CONSULTATION: Atrial fibrillation with rapid ventricular response. REQUESTING PHYSICIAN: Dr. Vasquez HISTORY OF PRESENT ILLNESS: Ms. Dowd is a 73-year-old female with history of congestive heart failure with preserved left ventricular ejection fraction by echo July 2018, hypertension, atri al fibrillation on systemic anticoagulation, dyslipidemia, COPD who had previously been admitted to [facility] on 10/21/2018 with shortness of breath, COPD exacerbation, upper respirat ory infection and ongoing URI. The patient had made significant improvement and was transferred to [facility] yesterday. The patient was noted to have a possible seizure-like episodes and increased atrial fibrillation with rapid ventricular response and therefore transferred to the [facility]. The patient had a head CT done prior to being transferred to ER and the ICU which revealed evide nce of acute intracranial pathology, mild volume loss. A 1.8 focal lucency defect in the left mastoi d temporal lobe. A 6 mm left parietal extraaxial calcified lesion, mild volume loss. The patient no w has been placed in the ICU where she has ongoing issues with atrial fibrillation with rapid ventric ular response and appears decreased responsiveness. PAST MEDICAL HISTORY: As above in HPI. MEDICATIONS CURRENTLY IN HOSPITAL: 1. Lovenox subcutaneously daily. 2. IV fluid hydration at 75 mL an hour. 3. Ativan p.r.n. 4. Diltiazem drip. ALLERGIES: NO KNOWN DRUG ALLERGIES. SOCIAL HISTORY: No current tobacco, EtOH or illicit drug use. FAMILY HISTORY: No sudden cardiac or early CAD. REVIEW OF SYSTEMS: As above in HPI. CONSTITUTIONAL: No fevers, chills. PULMONARY: Chronic respiratory failure, status post trach. GASTROINTESTINAL: Dysphagia, status post G-tube. GENITOURINARY: No hematuria. MUSCULOSKELETAL: Degenerative joint disease. PSYCHIATRIC: No documented psych history. NEUROLOGIC: Altered mental state. CARDIOVASCULAR: Atrial fibrillation with rapid ventricular response. PHYSICAL EXAMINATION: VITAL SIGNS: Temperature 98.4, blood pressure most recently 144/74, pulse 126, 75%. GENERAL: The patient is awake but appears somewhat lethargic, not clearly responding to verbal comma nds. NECK: Tracheostomy in place. CHEST: Upper airway transmitted rhonchus sounds. HEART: Tachycardic, irregular, I/ systolic murmur. ABDOMEN: Positive bowel sounds, soft. EXTREMITIES: Trace edema, 1+ pulses bilateral posterior tibial. LABORATORY DATA: Most recently from today, white count 20, hemoglobin of 13.1, platelet count 301. Sodium 140, potassium 4.6, creatinine 0.55, BUN of 48. Tox screen digoxin 0.9. UA with positive lorin teria. IMAGING STUDIES: Head CT from the revealing no acute intracranial pathology. IMPRESSION: 1. Atrial fibrillation with a rapid ventricular response. 2. Abnormal electrocardiogram with ST depressions during atrial fibrillation with rapid ventricular response. 3. Altered mental state/encephalopathy. 4. Possible seizure-like activity. 5. Congestive heart failure, diastolic, chronic. 6. Hypertension. 7. Urinary tract infection. 8. Renal failure. 9. Leukocytosis. RECOMMENDATIONS: 1. At this time, would maintain patient in ICU on close monitoring. 2. Would rule out patient for myocardial infarction, given EKG abnormalities. 3. Will give patient additional dose of digoxin. The patient currently n.p.o. at this time and give IV push p.r.n. beta blockers as necessary, wean off diltiazem as possible. 4. We will place patient on Lovenox systemic anticoagulation until able to take p.o., and once can t jorge Eliquis for prevention of thromboembolic complications and atrial fibrillation. 5. Follow the patient's volume status closely and creatinine and IV fluid hydration. 6. Follow for recurrent seizure activity. 7. Consider antibiotic therapy and initiation of antibiotics. Thank you for allowing me to take part in the care of this patient. I will continue to follow very c losely with you. Further recommendations will be made as the [facility]. Dictated By: LUIS JENKINS/NTS Conf#: [id number] DID#: [id number] CC: JAYLEN LUGO MD;*End*
[2018-10-28] VITALS (36 sets, daily range): BP systolic 118–159; BP diastolic 61–91; PULSE 77–110; RESP 16–23
[2018-10-28] MEDS: SOD CHLORIDE 0.9% 1,000 ML IV SCH ×2 (01:28→21:15)
[2018-10-28] MEDS ORDERED: ACETAMINOPHEN 650 MG SUPP PR PRN (02:30)
[2018-10-28] MEDS: METOPROLOL 5 MG INJ IV PRN (05:38)
[2018-10-28] MEDS ORDERED: PANTOPRAZOLE 40 MG INJ IV SCH (06:00)
--- NOTE | 2018-10-28 08:08 | PN ---
DATE: 10/28/2018 SUBJECTIVE: The patient was transferred from [facility] to [facility] intens selam Care Unit with hypertension, atrial fibrillation rapid rate, and respiratory failure. The patien geraldine was initially admitted to [facility] with complaints of congestive heart failure exacerbation. The patient was treated medically, stabilized and transferred to [facility] nt for continued care. The patient then subsequently brought down to the emergency room of [facility] due to decline in physical state in atrial fibrillation with rapid rate. The p atjennifer was transferred to intensive care unit and placed on Cardizem drip. Overnight, the patient's Cardizem drip was weaned off. In terms of patient's renal history, the patient has baseline creatinine of between 1.5 to 1.8 mg/dL. There are no reports of any hemoptysis, hematemesis or hematochezia. OBJECTIVE: VITAL SIGNS: Blood pressure is 154/74, respirations 18, pulse 87, temperature 100.4. HEENT: Head is normocephalic. NECK: Supple. HEART: Tachycardic. LUNGS: Show diminished breath sounds at the base. ABDOMEN: Soft, nontender to palpation. No rebound or guarding. EXTREMITIES: Negative for clubbing, cyanosis, no edema. DERMATOLOGIC: No rashes. MUSCULOSKELETAL: No joint effusions. NEUROLOGIC: No change in exam. MEDICATIONS: Reviewed. LABORATORY DATA: From 10/28/2018 pending. Laboratory data from 10/27/2018 was reviewed. IMAGING STUDIES: Chest x-ray pending. CT scan of the brain was reviewed, no evidence of acute infar ction. ASSESSMENT AND PLAN: This is a 73-year-old female who presents with: 1. Nonoliguric acute kidney injury on top of chronic kidney disease with previous baseline creatinin e of 1.5 mg/dL. Etiology of initial acute kidney injury is secondary to hemodynamics. Renal functio n is near baseline. At this point, continue current treatment plans, supportive care, renally dose a ll medicines. 2. Acute diastolic heart failure. Continue medical management. Continue intermittent diuretic ther apy. 3. Anemia. Continue to monitor hemoglobin and hematocrit levels. 4. Mineral bone disorder. Monitor calcium and phosphorus level. 5. Atrial fibrillation with rapid rate. Continue medical management. The patient is completing Car dizem drip. 6. Ventilator-dependent respiratory failure. Vent settings have been reviewed. ABG is reviewed. C ontinue to monitor. Follow up with Pulmonary. 7. Dysphagia. Continue modified diet. 8. Chronic obstructive pulmonary disease. Continue medical management. 9. History of pulmonary fibrosis. 10. Encephalopathy, etiology is toxic metabolic. Continue to monitor. 11. Systemic inflammatory response syndrome rule out sepsis. The patient has elevated white count. On empiric antibiotics. We will continue. Follow up cultures. Monitor inputs and outputs and IV f luids closely. Given history of congestive heart failure. Please note I spent over 30 minutes of critical care time with this patient. Dictated By: RAJINDER ATWOOD DO NR/NTS Conf#: [id number] DID#: [id number] CC: ERUM ALCOCER MD; ROSALVA SANCHES MD;*EndCC*
[2018-10-28] MEDS ORDERED: ENOXAPARIN 30 MG/0.3 ML SYG SC SCH (09:00)
[2018-10-28] MEDS: CEFEPIME 1GM/50 ML (PMX) 50 ML IVPB SCH (09:20)
[2018-10-28] MEDS: ENOXAPARIN 60 MG/0.6 ML SYG SC SCH (09:27)
--- NOTE | 2018-10-28 10:02 | CONS ---
Date/Time of Note Date/Time of Note DATE: 10/28/18 TIME: 10:00 Consult Date/Type/Reason Admit Date/Time Oct 27, 2018 at 08:14 Initial Consult Date 10/27/18 Type of Consultation: Pulmonary ICU Subjective Patient remains comfortable on mechanical ventilation this morning. Eyes open not following commands. Objective Vital Signs Date Temp Pulse Resp B/P (MAP) Pulse Ox O2 O2 Flow FiO2 Time Delivery Rate 10/28/18 95 08:00 10/28/18 18 154/74 100 [place] 07:00 (100) l Ventilato r 10/28/18 40 05:20 10/28/18 100.4 04:00 Intake and Output 10/27/18 10/27/18 10/28/18 1515:00 23:00 07:00 IntakeIntake Total 585 ml 605 ml 590 ml OutputOutput Total 615 ml 370 ml 275 ml BalanceBalance -30 ml 235 ml 315 ml Exam GENERAL: Chronically ill-appearing lady on mechanical ventilation appears comfortable at rest VITAL SIGNS: per chart NECK: Supple. No JVD or lymphadenopathy. CARDIAC EXAM: S1, S2. No added sounds or murmurs. CHEST: clear bilaterally, No added sounds, rales or wheezes ABDOMEN: Soft, nontender. No guarding or rebound. EXTREMITIES: No cyanosis, clubbing or edema. NEUROLOGIC: Generalized weakness. Results/Medications Result Diagram: 10/27/18 0814 10/28/18 0750 Results 24 hrs Laboratory Tests Test 10/27/18 10:50 10/28/18 03:00 10/28/18 07:50 10/28/18 07:52 Urine Color YELLOW YELLOW Urine Clarity SLIGHTLY CLOUDY CLOUDY A A Urine pH 6.0 5.0 Urine Specific 1.008 1.016 [place] Urine Ketones NEGATIVE NEGATIVE Urine Nitrite NEGATIVE NEGATIVE Urine Bilirubin NEGATIVE NEGATIVE Urine NEGATIVE NEGATIVE Urobilinogen Urine Leukocyte 3+ H 2+ H Esterase Urine 8 H 47 H Microscopic RBC Urine 92 H > 182 H Microscopic WBC Urine Bacteria MANY A FEW A Urine Mucus MANY A Urine 1+ H 2+ H Hemoglobin Urine Glucose NEGATIVE NEGATIVE Urine Total NEGATIVE 1+ H Protein Urine Squamous MANY A Epithelial Cell s Urine Calcium MANY A Oxalate Crystals Urine Amorphous FEW A Crystals Sodium Level 138 Potassium Level 4.5 Chloride Level 103 Carbon Dioxide 27 Level Anion Gap 8 Blood Urea 48 H Nitrogen Creatinine 1.46 H Est Glomerular Filtrat Rate mL/min Glucose Level 89 # Calcium Level 8.4 Blood Gas Blood Specimen arterial Source Arterial Blood 10/28/2018 8:1 Date Drawn 5:44 AM Arterial Blood 7.374 pH (Temp corrected ) Arterial Blood 44.9 pCO2 (Temp correct) Arterial Blood 90.0 pO2 (Temp corrected ) Arterial Blood 25.6 HCO3 Arterial Blood 0.1 Base Excess Arterial Blood 96.8 Oxygen Saturati on Jeremie Test ACCEPTAB Arterial Blood Right Radial Gas Puncture Site Arterial 0.2 Blood Carboxyhe moglobin Arterial Blood 0.3 Methemoglobin Blood Gas A-a 143.6 H O2 Differential Oxyhemoglobin 96.3 Percent Blood Gas 37.0 Temperature Blood Gas 16.0 Respiration Rate Blood Gas 18 Actual Respiration Rat e Blood Gas VENT - AC Modality FiO2 40.0 Blood Gas Tidal 500.0 Volume Blood Gas Low 5.0 PEEP Setting Blood Gas TM Notified Whom Blood Gas 10/28/2018 8:3 Notified Time 6:28 AM Medications Current Medications Lorazepam (Ativan) 1 mg Q6H PRN IV agitation, seizure activity Last administered on 10/27/18at 20:17; Admin Dose 1 MG; Start 10/27/18 at 12:00 Sodium Chloride 1,000 ml @ 40 mls/hr Q24H IV Last administered on 10/28/18 01:28; Admin Dose 75 MLS/HR; Start 10/27/18 at 12:30 Enoxaparin Sodium (Lovenox) 60 mg DAILY SC Last administered on 10/28/18at 09:27; Admin Dose 60 MG; Start 10/27/18 at 13:30 Metoprolol Tartrate (Lopressor) 5 mg Q4H PRN IV HR>110 Hold SBP<100 Last administered on 10/28/18at 05:38; Admin Dose 5 MG; Start 10/27/18 at 13:30 Pantoprazole (Protonix Iv) 20 mg DAILY@06 IV Last administered on 10/28/18at 05:35; Admin Dose 20 MG; Start 10/28/18 at 06:00 Cefepime HCl 50 ml @ 100 mls/hr DAILY IVPB Last administered on 10/28/18at 09:20; Admin Dose 100 MLS/HR; Start 10/28/18 at 09:00 Acetaminophen (Tylenol Supp) 650 mg Q6H PRN [place] FEVER GREATER THAN 100.6 Last administered on 10/28/18at 03:07; Admin Dose 650 MG; Start 10/28/18 at 02:30 Assessment/Plan Chief Complaint/Hosp Course Assessment 1. Atrial fibrillation with rapid ventricular rate now rate controlled 2. Chronic respiratory failure with tracheostomy and mechanical ventilation 3. Significant sepsis with leukocytosis 4. Dysphagia but no G-tube Plan 1. Continue rate control per cardiology 2. Nasogastric tube placement and initiation of tube feeding 3. Continue broad-spectrum antibiotics pending culture results 4. Address CODE STATUS with next of kin Patient stable for transfer to telemetry Critical care time 40 minutes ERUM ALCOCER MD, [facility] Oct 28, 2018 10:02
--- NOTE | 2018-10-28 10:50 | CONS ---
Date/Time of Note Date/Time of Note DATE: 10/28/18 TIME: 10:43 Assessment/Plan Assessment/Plan Chief Complaint/Hosp Course IMPRESSION: 1. Atrial fibrillation with a rapid ventricular response.-now improved HR s/p IVP digoxin doses x 2 2. Abnormal [address] with ST depressions during atrial fibrillation with rapid ventricular response. 3. Altered mental state/encephalopathy. 4. Possible seizure-like activity. 5. Congestive heart failure, diastolic, chronic. 6. Hypertension. 7. Urinary tract infection. 8. Renal failure. 9. Leukocytosis. 10. bacteremia 11.fevers Recc: -ICU -Continue IVP BB until able to take PO's. ? place NGT -Continue lovenox -Continue abx's and f/u cx data -consider clonidine TTS to improve BP until bale to take po's. Will write for pRN hydralazine Consultation Date/Type/Reason Admit Date/Time Oct 27, 2018 at 08:14 Initial Consult Date 10/27/18 Type of Consult cardiology Reason for Consultation AF Requesting Provider: JAYLEN LUGO MD Exam/Review of Systems Vital Signs Vitals Vital Signs Date Temp Pulse Resp B/P (MAP) Pulse Ox O2 O2 Flow FiO2 Time Delivery Rate 10/28/18 95 08:00 10/28/18 18 154/74 100 [place] 07:00 (100) l Ventilato r 10/28/18 40 05:20 10/28/18 100.4 04:00 Intake and Output 10/27/18 10/27/18 10/28/18 1515:00 23:00 07:00 IntakeIntake Total 585 ml 605 ml 590 ml OutputOutput Total 615 ml 370 ml 275 ml BalanceBalance -30 ml 235 ml 315 ml Exam Review of Systems: CONSTITUTIONAL: No fevers, chills. PULMONARY: trached CARDIOVASCULAR: No chest pain/palpitations GASTROINTESTINAL: No nausea/vomiting. GENITOURINARY: No hematuria/dysuria. MUSCULOSKELETAL: No myagias/arthalgias. PSYCHIATRIC: The patient denies depression. NEUROLOGIC: lethargic Constitutional: alert Psych: no complaints Head: normocephalic ENMT: mucosa pink and moist Neck: supple, jvd (9 cm water) Respiratory: diminished breath sounds (at bases/B) Cardiovascular: irregular rhythm Gastrointestinal: soft, non-tender Musculoskeletal: muscle weakness (generalized) Extremities: edema (trace/B) Neurological: other (No focal deficts) Medications Medications Current Medications Lorazepam (Ativan) 1 mg Q6H PRN IV agitation, seizure activity Last administered on 10/27/18at 20:17; Admin Dose 1 MG; Start 10/27/18 at 12:00 Sodium Chloride 1,000 ml @ 40 mls/hr Q24H IV Last administered on 10/28/18at 01:28; Admin Dose 75 MLS/HR; Start 10/27/18 at 12:30 Enoxaparin Sodium (Lovenox) 60 mg DAILY SC Last administered on 10/28/18at 09:27; Admin Dose 60 MG; Start 10/27/18 at 13:30 Metoprolol Tartrate (Lopressor) 5 mg Q4H PRN IV HR>110 Hold SBP<100 Last administered on 10/28/18at 05:38; Admin Dose 5 MG; Start 10/27/18 at 13:30 Pantoprazole (Protonix Iv) 20 mg DAILY@06 IV Last administered on 10/28/18at 05:35; Admin Dose 20 MG; Start 10/28/18 at 06:00 Cefepime HCl 50 ml @ 100 mls/hr DAILY IVPB Last administered on 10/28/18at 09:20; Admin Dose 100 MLS/HR; Start 10/28/18 at 09:00 Acetaminophen (Tylenol Supp) 650 mg Q6H PRN [place] FEVER GREATER THAN 100.6 Last administered on 10/28/18at 03:07; Admin Dose 650 MG; Start 10/28/18 at 02:30 Results Result Diagram: 10/27/18 0814 10/28/18 0750 Results 24 hrs Laboratory Tests Test 10/27/18 10:50 10/28/18 03:00 10/28/18 07:50 10/28/18 07:52 Urine Color YELLOW YELLOW Urine Clarity SLIGHTLY CLOUDY CLOUDY A A Urine pH 6.0 5.0 Urine Specific 1.008 1.016 [place] Urine Ketones NEGATIVE NEGATIVE Urine Nitrite NEGATIVE NEGATIVE Urine Bilirubin NEGATIVE NEGATIVE Urine NEGATIVE NEGATIVE Urobilinogen Urine Leukocyte 3+ H 2+ H Esterase Urine 8 H 47 H Microscopic RBC Urine 92 H > 182 H Microscopic WBC Urine Bacteria MANY A FEW A Urine Mucus MANY A Urine 1+ H 2+ H Hemoglobin Urine Glucose NEGATIVE NEGATIVE Urine Total NEGATIVE 59.0 H Protein Urine Squamous MANY A Epithelial Cell s Urine Calcium MANY A Oxalate Crystals Urine Amorphous FEW A Crystals Urine Random 68.73 Creatinine Urine Random 44 Sodium Sodium Level 138 Potassium Level 4.5 Chloride Level 103 Carbon Dioxide 27 Level Anion Gap 8 Blood Urea 48 H Nitrogen Creatinine 1.46 H Est Glomerular Filtrat Rate mL/min Glucose Level 89 # Calcium Level 8.4 Blood Gas Blood Specimen arterial Source Arterial Blood 10/28/2018 8:1 Date Drawn 5:44 AM Arterial Blood 7.374 pH (Temp corrected ) Arterial Blood 44.9 pCO2 (Temp correct) Arterial Blood 90.0 pO2 (Temp corrected ) Arterial Blood 25.6 HCO3 Arterial Blood 0.1 Base Excess Arterial Blood 96.8 Oxygen Saturati on Jeremie Test ACCEPTAB Arterial Blood Right Radial Gas Puncture Site Arterial 0.2 Blood Carboxyhe moglobin Arterial Blood 0.3 Methemoglobin Blood Gas A-a 143.6 H O2 Differential Oxyhemoglobin 96.3 Percent Blood Gas 37.0 Temperature Blood Gas 16.0 Respiration Rate Blood Gas 18 Actual Respiration Rat e Blood Gas VENT - AC Modality FiO2 40.0 Blood Gas Tidal 500.0 Volume Blood Gas Low 5.0 PEEP Setting Blood Gas TM Notified Whom Blood Gas 10/28/2018 8:3 Notified Time 6:28 AM LUIS FERGUSON Oct 28, 2018 10:50
[2018-10-28] MEDS ORDERED: hydrALAzine 20 MG INJ IV PRN (11:00)
[2018-10-28] MEDS ORDERED: VANCOMYCIN IV PER PHARMACY XX SCH (13:00)
[2018-10-28] MEDS: VANCOMYCIN 1 GM 250 ML IVPB SCH (14:10)
--- NOTE | 2018-10-28 16:06 | CONS ---
[facility] LIVE HCIS Consult Initial Patient Name: Tawana Dowd Unit Number: [id number] Date of : 1945 Patient Status: Admitted Inpatient Attending Doctor: Sadaf Vasquez Edit: CHRISTIANA LARSON on 10/29/18 @ 06:39 73 yo F with reported Hx of afib, HTN, and other comorbidities...who presents with ams, tachyarrhythmia, and involuntary muscle jerking...for which neurology is consulted. The clinical picture is consistent w/ status epilepticus. The pt was noted to be in afib with RVR on readmission, which raises concern for superimposed acute stroke. Encephalitis is unlikely.. Of note, patient DPOA is reportedly refusing Ativan.. P: MRI brain for further characterization EEG Versed 2mg x1 stat, then dilantin 1g iv loading dose, followed by maintenance dosing of 100mg TID. Titrate Dilantin prn to goal level 10-20.. Versed iv for prolonged seizure > 5min or for cluster Other medical management and supportive care per primary Will follow clinically Consultation Date/Type/Reason Admit Date/Time Oct 27, 2018 at 08:14 Date of Consultation: Oct 28, 2018 Type of Consult neurology Reason for Consultation eval for seizures Hx of Present Illness This is a 73 yo F with hx of afib, HTN, respiratory failure and other comorb idities who presented to [facility] from [place] with dysrhythmias and possible seizure activity. History was obtained from chart review as pt is in critical condition and therefore unable to contribute. It is elsewhere noted: Patient with history of atrial fibrillation, hypertension, pulmonary edema, re spiratory failure, COPD was inpatient at [facility] day prior to this current admission. Patient was transferred to [facility] for continued care of her respiratory failure. Early this morning, patient was noted to have worsening tachycardia with atrial fibrillation with possible seizure activity. Rapid response was called and because of her worsening condition, patient was transferred to the Emergency Room and then admitted to the ICU. Subjective hx not possible: pt non-verbal, pt critical Past Medical History reviewed Medical History: coronary artery disease, hypertension Past Surgical History reviewed Past Surgical Hx: other Family History Significant Family History: no pertinent family hx Social History reviewed Smoking Status: Former smoker Exam/Review of Systems Vital Signs Vitals Vital Signs Date Temp Pulse Resp B/P (MAP) Pulse Ox O2 O2 Flow FiO2 Time Delivery Rate 10/28/18 93 17 159/74 100 Mechanical 14:00 (102) Ventilator 10/28/18 40 12:00 10/28/18 99.8 12:00 Intake and Output 10/27/18 10/27/18 10/28/18 1515:00 23:00 07:00 IntakeIntake Total 585 ml 605 ml 590 ml OutputOutput Total 615 ml 370 ml 295 ml BalanceBalance -30 ml 235 ml 295 ml Exam PE: Gen Appearance: No Apparent Distress HEENT: Has trach Cardiovascular: SR on telemetry Abdomen: Soft Extremities: Dry NE: The patient was awake though unresponsive. Was blinking spontaneously. The pt did not track or follow commands. Cranial nerve examination was limited by mental status. Pupils were equal, round and briskly reactive to light. There was no afferent pupillary defect. Funduscopic examination was limited. Face was grossly symmetric, w/ a present cough/gag reflex. Tone was increased in her upper extremities . Muscle bulk was slightly dimi nished. I did see eye and chest fasciculations as well as BUE and LLE rhythmic muscle jerking. The patient did not withdraw to noxious stimuli. Coordination and gait testing was limited by mental status. Arm and leg reflexes were symmetric. Doshi's sign was absent. Plantar responses were flexor. Medications Medications Current Medications Sodium Chloride 1,000 ml @ 40 mls/hr Q24H IV Last administered on 10/28/18at 01:28; Admin Dose 75 MLS/HR; Start 10/27/18 at 12:30 Enoxaparin Sodium (Lovenox) 60 mg DAILY SC Last administered on 10/28/18at 09:27; Admin Dose 60 MG; Start 10/27/18 at 13:30 Metoprolol Tartrate (Lopressor) 5 mg Q4H PRN IV HR>110 Hold SBP<100 Last administered on 10/28/18at 05:38; Admin Dose 5 MG; Start 10/27/18 at 13:30 Cefepime HCl 50 ml @ 100 mls/hr DAILY IVPB Last administered on 10/28/18at 09:20; Admin Dose 100 MLS/HR; Start 10/28/18 at 09:00 Acetaminophen (Tylenol Supp) 650 mg Q6H PRN SC FEVER GREATER THAN 100.6 Last administered on 10/28/18at 03:07; Admin Dose 650 MG; Start 10/28/18 at 02:30 Hydralazine HCl (Apresoline) 10 mg Q4H PRN IV SBP>170; Start 10/28/18 at 11:00 Vancomycin HCl (Vanco Iv Per Pharmacy) VANCOMYCIN PER PHARMACY PER PROTOCOL XX ; Start 10/28/18 at 13:00 Pantoprazole (Protonix Iv) 40 mg DAILY@06 IV ; Start 10/29/18 at 06:00 Vancomycin HCl 250 ml @ 125 mls/hr Q48H IVPB Last administered on 10/28/18at 14:10; Admin Dose 125 MLS/HR; Start 10/28/18 at 14:00 Mupirocin (Bactroban) 1 applic BID TOP ; Start 10/28/18 at 21:00 Results Result Diagram: 10/27/18 0814 10/28/18 0750 Results 24 hrs Laboratory Tests Test 10/28/18 03:00 10/28/18 07:50 10/28/18 07:52 Urine Color YELLOW Urine Clarity CLOUDY A Urine pH 5.0 Urine Specific [place] 1.016 Urine Ketones NEGATIVE Urine Nitrite NEGATIVE Urine Bilirubin NEGATIVE Urine Urobilinogen NEGATIVE Urine Leukocyte Esterase 2+ H Urine Microscopic RBC 47 H Urine Microscopic WBC > 182 H Urine Squamous MANY A Epithelial Cells Urine Calcium Oxalate MANY A Crystals Urine Amorphous Crystals FEW A Urine Bacteria FEW A Urine Hemoglobin 2+ H Urine Random Creatinine 68.73 Urine Random Sodium 44 Urine Glucose NEGATIVE Urine Total Protein 59.0 H Sodium Level 138 Potassium Level 4.5 Chloride Level 103 Carbon Dioxide Level 27 Anion Gap 8 Blood Urea Nitrogen 48 H Creatinine 1.46 H Est Glomerular Filtrat Rate mL/min Glucose Level 89 # Calcium Level 8.4 Blood Gas Specimen Blood arterial Source Arterial Blood Date 10/28/2018 8:15:44 AM Drawn Arterial Blood pH 7.374 (Temp corrected) Arterial Blood pCO2 44.9 (Temp correct) Arterial Blood pO2 90.0 (Temp corrected) Arterial Blood HCO3 25.6 Arterial Blood Base 0.1 Excess Arterial Blood 96.8 Oxygen Saturation Jeremie Test ACCEPTAB Arterial Blood Gas Right Radial Puncture Site Arterial 0.2 Blood Carboxyhemoglobin Arterial Blood 0.3 Methemoglobin Blood Gas A-a O2 143.6 H Differential Oxyhemoglobin Percent 96.3 Blood Gas Temperature 37.0 Blood Gas Respiration 16.0 Rate Blood Gas Actual 18 Respiration Rate Blood Gas Modality VENT - AC FiO2 40.0 Blood Gas Tidal Volume 500.0 Blood Gas Low PEEP 5.0 Setting Blood Gas Notified Whom TM Blood Gas Notified Time 10/28/2018 8:36:28 AM Date/Time of Note Date/Time of Note DATE: 10/28/18 TIME: 16:06 Assessment/Plan Assessment/Plan Chief Complaint/Hosp Course 73 yo F with PMH of afib, HTN, and other comorbidities who presented to [facility] with ams, dysrhythmias, and episodic muscle jerking...for which neurology is consulted. The pt was noted to be in afib with RVR on readmission, which raises concern for a possible stroke. The pt was additionally noted to have episodic rhythmic upper and lower body muscle jerking, which additionally raises concern for seizures. P: Obtain MRI brain for further characterization Await EEG Give versed 2mg x1 dose now Give dilantin 1g loading dose, followed by maintenance dosing 100mg TID. Repeat level 1 hr after bolus and again in am. Ativan (or versed) for seizure > 5min or for cluster Seizure precautions Cont medical management per primary Will follow clinically Consultation Date/Type/Reason Admit Date/Time Oct 27, 2018 at 08:14 Date of Consultation: Oct 28, 2018 Type of Consult neurology Reason for Consultation eval for seizures Hx of Present Illness This is a 73 yo F with hx of afib, HTN, respiratory failure and other comorbidities who presented to [facility] from [place] with dysrhythmias and possible seizure activity. History was obtained from chart review as pt is in critical condition and the refore unable to contribute. It is elsewhere noted: Patient with history of atrial fibrillation, hypertension, pulmonary edema, respiratory failure, COPD was inpatient at [facility] day prior to this current admission. Patient was transferred to [facility] for continued care of her respiratory failure. Early this morning, patient was noted to have worsening tachycardia with atrial fibrillation with possible seizure activity. Rapid response was called and because of her worsening condition, patient was transferred to the Emergency Room and then admitted to the ICU. Subjective hx not possible: pt non-verbal, pt critical Past Medical History reviewed Medical History: coronary artery disease, hypertension Past Surgical History reviewed Past Surgical Hx: other Family History Significant Family History: no pertinent family hx Social History reviewed Smoking Status: Former smoker Exam/Review of Systems Vital Signs Vitals Vital Signs Date Temp Pulse Resp B/P (MAP) Pulse Ox O2 O2 Flow FiO2 Time Delivery Rate 10/28/18 93 17 159/74 100 Mechanical 14:00 (102) Ventilator 10/28/18 40 12:00 10/28/18 99.8 12:00 Intake and Output 10/27/18 10/27/18 10/28/18 1515:00 23:00 07:00 IntakeIntake Total 585 ml 605 ml 590 ml OutputOutput Total 615 ml 370 ml 295 ml BalanceBalance -30 ml 235 ml 295 ml Exam PE: Gen Appearance: No Apparent Distress HEENT: Has trach Cardiovascular: SR on telemetry Abdomen: Soft Extremities: Dry NE: The patient was awake though unresponsive. Was blinking spontaneously. The pt did not track or follow commands. Cranial nerve examination was limited by mental status. Pupils were equal, round and briskly reactive to light. There was no afferent pupillary defect. Funduscopic examination was limited. Face was grossly symmetric, w/ a present cough/gag reflex. Tone was increased in her upper extremities . Muscle bulk was slightly diminished. I did see eye and chest fasciculations as well as BUE and LLE rhythmic muscle jerking. The patient did not withdraw to noxious stimuli. Coordination and gait testing was limited by mental status. Arm and leg reflexes were symmetric. Doshi's sign was absent. Plantar responses were flexor. Medications Medications Current Medications Sodium Chloride 1,000 ml @ 40 mls/hr Q24H IV Last administered on 10/28/18at 01:28; Admin Dose 75 MLS/HR; Start 10/27/18 at 12:30 Enoxaparin Sodium (Lovenox) 60 mg DAILY SC Last administered on 10/28/18at 09:27; Admin Dose 60 MG; Start 10/27/18 at 13:30 Metoprolol Tartrate (Lopressor) 5 mg Q4H PRN IV HR>110 Hold SBP<100 Last administered on 10/28/18at 05:38; Admin Dose 5 MG; Start 10/27/18 at 13:30 Cefepime HCl 50 ml @ 100 mls/hr DAILY IVPB Last administered on 10/28/18at 09:20; Admin Dose 100 MLS/HR; Start 10/28/18 at 09:00 Acetaminophen (Tylenol Supp) 650 mg Q6H PRN SC FEVER GREATER THAN 100.6 Last administered on 10/28/18at 03:07; Admin Dose 650 MG; Start 10/28/18 at 02:30 Hydralazine HCl (Apresoline) 10 mg Q4H PRN IV SBP>170; Start 10/28/18 at 11:00 Vancomycin HCl (Vanco Iv Per Pharmacy) VANCOMYCIN PER PHARMACY PER PROTOCOL XX ; Start 10/28/18 at 13:00 Pantoprazole (Protonix Iv) 40 mg DAILY@06 IV ; Start 10/29/18 at 06:00 Vancomycin HCl 250 ml @ 125 mls/hr Q48H IVPB Last administered on 10/28/18at 14:10; Admin Dose 125 MLS/HR; Start 10/28/18 at 14:00 Mupirocin (Bactroban) 1 applic BID TOP ; Start 10/28/18 at 21:00 Results Result Diagram: 10/27/18 0814 10/28/18 0750 Results 24 hrs Laboratory Tests Test 10/28/18 03:00 10/28/18 07:50 10/28/18 07:52 Urine Color YELLOW Urine Clarity CLOUDY A Urine pH 5.0 Urine Specific [place] 1.016 Urine Ketones NEGATIVE Urine Nitrite NEGATIVE Urine Bilirubin NEGATIVE Urine Urobilinogen NEGATIVE Urine Leukocyte Esterase 2+ H Urine Microscopic RBC 47 H Urine Microscopic WBC > 182 H Urine Squamous MANY A Epithelial Cells Urine Calcium Oxalate MANY A Crystals Urine Amorphous Crystals FEW A Urine Bacteria FEW A Urine Hemoglobin 2+ H Urine Random Creatinine 68.73 Urine Random Sodium 44 Urine Glucose NEGATIVE Urine Total Protein 59.0 H Sodium Level 138 Potassium Level 4.5 Chloride Level 103 Carbon Dioxide Level 27 Anion Gap 8 Blood Urea Nitrogen 48 H Creatinine 1.46 H Est Glomerular Filtrat Rate mL/min Glucose Level 89 # Calcium Level 8.4 Blood Gas Specimen Blood arterial Source Arterial Blood Date 10/28/2018 8:15:44 AM Drawn Arterial Blood pH 7.374 (Temp corrected) Arterial Blood pCO2 44.9 (Temp correct) Arterial Blood pO2 90.0 (Temp corrected) Arterial Blood HCO3 25.6 Arterial Blood Base 0.1 Excess Arterial Blood 96.8 Oxygen Saturation Jeremie Test ACCEPTAB Arterial Blood Gas Right Radial Puncture Site Arterial 0.2 Blood Carboxyhemoglobin Arterial Blood 0.3 Methemoglobin Blood Gas A-a O2 143.6 H Differential Oxyhemoglobin Percent 96.3 Blood Gas Temperature 37.0 Blood Gas Respiration 16.0 Rate Blood Gas Actual 18 Respiration Rate Blood Gas Modality VENT - AC FiO2 40.0 Blood Gas Tidal Volume 500.0 Blood Gas Low PEEP 5.0 Setting Blood Gas Notified Whom TM Blood Gas Notified Time 10/28/2018 8:36:28 AM JOE WYATT NP Oct 28, 2018 16:06
--- NOTE | 2018-10-28 16:29 | PN ---
DATE: 10/28/2018 SUBJECTIVE AND INTERVAL HISTORY: The patient was recently transferred from [facility] due to AFib with rapid ventricular response. The patient in fact initially was transferred to ER after patient had developed severe tachycardia. The patient's heart rate was 170. The patient had t o be put on Cardizem drip and received 1 dose of digoxin. The patient remains in AFib, although hear t rate has improved. The patient also had significant leukocytosis with white cells of 20,000 and el evated lactate. The patient has been started on cefepime. The patient however since transfer from [facility] appears awake, however, confused and is not following command and only intermittently tracking. The patient did receive a dose of Ativan yesterday morning. The patient also received IV fluid rj us at 30 mL per kg while she was in the ER. The patient is also connected with the vent. The patien t continues to have intermittent fever, T-max 100.9, and patient's blood culture is growing gram-posi tive cocci in 11/13. The patient has been given a dose of vancomycin, and ID consult from Dr. Al perez as been requested. OBJECTIVE: VITAL SIGNS: T-max 100.9, pulse 95, blood pressure 150/73, O2 saturation 100% on FiO2 of 40%. HEENT: No eye discharge or redness. Nose and ears normal. Oropharynx grossly negative. NECK: Tracheostomy in place, mild secretion, no mass. CHEST: Diminished air entry bilaterally. CARDIOVASCULAR: Irregularly irregular rhythm. No murmur or gallop. ABDOMEN: Soft, nondistended, nontender. EXTREMITIES: No edema. Pedal pulses palpable. SKIN: Without acute rash. NEUROLOGIC: The patient is awake, alert, follows simple commands. LABORATORY DATA: Labs done this morning: Sodium 138, potassium 4.5, BUN 48, creatinine 1.4, glucose 89, calcium 8.4. CBC: WBC 20, hemoglobin 13.1, platelet 301. Chest x-ray done this morning reveal ed no significant interval change, increased interstitial changes throughout the lung, mild patchy bi basilar infiltrate. IMPRESSION: 1. Acute encephalopathy. We will obtain EEG and a neurology consultation from Dr. Meng. 2. Fever and leukocytosis with positive blood culture. Continue IV vancomycin and cefepime. Furthe r recommendation will depend on patient's hospital course and recommendation from Dr. Melendez. 3. Chronic obstructive pulmonary disease. Continue breathing treatment. 4. Paroxysmal atrial fibrillation. The patient is currently in atrial fibrillation. The patient is on metoprolol on p.r.n. basis. The patient is unable to take anything p.o. since she is encephalopat hic. The patient does not have a G-tube or NG tube. I met with patient's daughter and granddaughter and updated them regarding patient's condition and pl an of care. I recommended NG tube for nutrition as well as for medication, but daughter did not want her to have NG tube. Meanwhile for CVA prophylaxis, we will continue subQ Lovenox based on creatini ne; and for GI prophylaxis, continue Protonix. Plan of care discussed with nursing staff in ICU. Total critical care time spent 35 minutes. Dictated By: JAYLEN LUGO MD AB/NTS Conf#: [id number] DID#: [id number] CC: ROSALVA SANCHES MD;*EndCC*
[2018-10-28] MEDS ORDERED: MIDAZOLAM 1 MG/ML 2 ML INJ IV ONE (16:30)
--- NOTE | 2018-10-28 17:43 | CONS ---
DATE OF ADMISSION: 10/27/2018 DATE OF CONSULTATION: 10/28/2018 TYPE OF CONSULTATION: Infectious disease. REASON FOR CONSULTATION: Antibiotic management. HISTORY OF PRESENT ILLNESS: Tawana Dowd is a 73-year-old female who was admitted to [place]. She is ventilator dependent tracheostomy patient. She was transferred to the emergency room after renetta rice had developed severe tachycardia with a rate of 170. The patient has congestive heart failure . There is no documented fever, no cough. She is bedridden. Her problems include respiratory failu re, pulmonary fibrosis, congestive heart failure, hypertension, hyperlipidemia and atrial fibrillatio n. PAST MEDICAL HISTORY: Operations: None known. FAMILY HISTORY: Noncontributory. SOCIAL HISTORY: She does not smoke, drink or abuse drugs. ALLERGIES: NONE TO PENICILLIN, SULFA OR FOODS. MEDICATIONS: Per chart. REVIEW OF SYSTEMS: Noncontributory. HOSPITAL COURSE: The patient has a urinary catheter currently. She is in the intensive care unit. She continues to have intermittent fevers to 100.9. Blood cultures are positive 1 out of 2 for gram- positive cocci in clusters which was drawn on 10/27/2018. Urine culture is pending. The patient is currently on vancomycin. Her chest x-ray shows no significant interval change. There are increase i nterstitial changes throughout the lung, mild patchy bibasilar infiltrates, small left pleural effusi on, no pneumothorax, tracheostomy in place, calcified aorta consistent with atherosclerotic cardiovas cular disease. PHYSICAL EXAMINATION: GENERAL: The patient is an elderly appearing female who is awake, noncommunicative, in no acute dist ress. VITAL SIGNS: Stable. T-max of 100.9 today. SKIN: Without generalized rash. HEENT: Within normal limits. NECK: Tracheostomy in place. CHEST: Decreased breath sounds at the bases. HEART: Without murmur or gallop. ABDOMEN: Soft, obese, nontender without organosplenomegaly or masses. EXTREMITIES: Without cyanosis, clubbing or edema. RECTAL AND GENITAL: Deferred. NEUROLOGIC: The patient is relatively obtunded at the present time. No obvious focal neurological a bnormalities. IMPRESSION AND PLAN: I will repeat 2 sets of blood cultures. I will dictate my findings to Dr. Soniya paige. I want to thank him for asking me to see this unfortunate lady in consultation. Dictated By: MENDEL FIELDS MD, JD/MONROE Conf#: [id number] DID#: [id number] CC: ROSALVA SANCHES MD;*EndCC*
[2018-10-28] MEDS ORDERED: PHENYTOIN 1,000 MG in SOD CHLORIDE 0.9% 100 ML IV ONE ×2 (18:30→19:30)
[2018-10-28] MEDS: MUPIROCIN 2% 22 GM OINT TOP SCH (21:15)
--- NOTE | 2018-10-28 23:36 | CONS ---
Date/Time of Note Date/Time of Note DATE: 10/28/18 TIME: 23:35 Assessment/Plan Assessment/Plan Chief Complaint/Hosp Course ANEMIA WITH COMPONENT ACD CONT TO MONITOR BLOOD COUNT CLOSELY OBSERVE FOR BLEEDING AND HEMOLYSIS NO INDICATIONS FOR TRANSFUSION Hypomagnesium- resolved [id number] respiratory failure. The patient's respiratory status has improved after he was dialyzed yesterday. The patient is breathing comfortably. Endstage renal disease. Continue hemodialysis as per Dr. Monique. Coronary artery disease. Continue aspirin and carvedilol. Cardiomyopathy. Continue aspirin, carvedilol and Eliquis. Dyslipidemia. The patient is already maxed out on Lipitor. Benign prostatic hypertrophy. Continue Flomax. Chronic obstructive pulmonary disease evaluation. Continue DuoNeb, Rocephin. Meanwhile, we will decrease Solu-Medrol to 20 daily. Diabetes. Out of control due to Solu-Medrol and also patient due to agitation and unpredictable p.o. intake was not given long-acting. The patient at home takes Tresiba. I will start him on Lantus. Acute psychosis. Continue p.r.n. Haldol. Chronic lower back pain. Continue [place] as needed. Consultation Date/Type/Reason Admit Date/Time Oct 27, 2018 at 08:14 Date of Consultation: Oct 28, 2018 Type of Consult [facility] Reason for Consultation LEUKOCYTOSIS Requesting Provider: JAYLEN LUGO MD Hx of Present Illness Patient with history of atrial fibrillation, hypertension, pulmonary edema, respiratory failure, COPD was inpatient at [facility] day prior to this current admission. Patient was transferred to [facility] for continued care of her respiratory failure. Early this morning, patient was noted to have worsening tachycardia with atrial fibrillation with possible seizure activity. Rapid response was called and because of her worsening condition, patient was transferred to the Emergency Room and then adm itted to the ICU. PMH/Family/Social Past Medical History atrial fibrillation, respiratory failure, pulmonary fibrosis Medical History: coronary artery disease, hypertension Coded Allergies: No Known Allergy (Unverified , 10/27/18) Past Surgical History Past Surgical Hx: other Family History Significant Family History: no pertinent family hx Social History Smoking Status: Unknown if ever smoked ll noted NAD NO BLEEDING NO HEMOLYSIS Past Medical History Medical History: coronary artery disease, hypertension Past Surgical History Past Surgical Hx: other Social History Smoking Status: Former smoker Exam/Review of Systems Vital Signs Vitals Vital Signs Date Temp Pulse Resp B/P (MAP) Pulse Ox O2 O2 Flow FiO2 Time Delivery Rate 10/28/18 92 20 100 40 21:39 10/28/18 99.6 118/62 Mechanical 20:00 (80) Ventilator Intake and Output 10/27/18 10/27/18 10/28/18 1515:00 23:00 07:00 IntakeIntake Total 585 ml 605 ml 590 ml OutputOutput Total 615 ml 370 ml 295 ml BalanceBalance -30 ml 235 ml 295 ml Exam Exam Constitutional: well developed Head: normocephalic, atraumatic Neck: supple Respiratory: diminished breath sounds Cardiovascular: regular rate and rhythm Gastrointestinal: soft, non-tender Extremities: normal pulses Medications Medications Current Medications Sodium Chloride 1,000 ml @ 40 mls/hr Q24H IV Last administered on 10/28/18at 21:15; Admin Dose 40 MLS/HR; Start 10/27/18 at 12:30 Enoxaparin Sodium (Lovenox) 60 mg DAILY SC Last administered on 10/28/18at 09:27; Admin Dose 60 MG; Start 10/27/18 at 13:30 Metoprolol Tartrate (Lopressor) 5 mg Q4H PRN IV HR>110 Hold SBP<100 Last administered on 10/28/18at 05:38; Admin Dose 5 MG; Start 10/27/18 at 13:30 Cefepime HCl 50 ml @ 100 mls/hr DAILY IVPB Last administered on 10/28/18at 09:20; Admin Dose 100 MLS/HR; Start 10/28/18 at 09:00 Acetaminophen (Tylenol Supp) 650 mg Q6H PRN [place] FEVER GREATER THAN 100.6 Last administered on 10/28/18at 03:07; Admin Dose 650 MG; Start 10/28/18 at 02:30 Hydralazine HCl (Apresoline) 10 mg Q4H PRN IV SBP>170; Start 10/28/18 at 11:00 Vancomycin HCl (Vanco Iv Per Pharmacy) VANCOMYCIN PER PHARMACY PER PROTOCOL XX ; Start 10/28/18 at 13:00 Pantoprazole (Protonix Iv) 40 mg DAILY@06 IV ; Start 10/29/18 at 06:00 Vancomycin HCl 250 ml @ 125 mls/hr Q48H IVPB Last administered on 10/28/18at 14:10; Admin Dose 125 MLS/HR; Start 10/28/18 at 14:00 Mupirocin (Bactroban) 1 applic BID TOP Last administered on 10/28/18at 21:15; Admin Dose 1 APPLIC; Start 10/28/18 at 21:00 Phenytoin (Dilantin) 100 mg Q8 IV ; Start 10/29/18 at 06:00 Results Result Diagram: 10/27/18 0814 10/28/18 0750 Results 24 hrs Laboratory Tests Test 10/28/18 03:00 10/28/18 07:50 10/28/18 07:52 10/28/18 20:57 Urine Color YELLOW Urine Clarity CLOUDY A Urine pH 5.0 Urine Specific 1.016 [place] Urine Ketones NEGATIVE Urine Nitrite NEGATIVE Urine Bilirubin NEGATIVE Urine NEGATIVE Urobilinogen Urine Leukocyte 2+ H Esterase Urine 47 H Microscopic RBC Urine > 182 H Microscopic WBC Urine Squamous MANY A Epithelial Cell s Urine Calcium MANY A Oxalate Crystals Urine Amorphous FEW A Crystals Urine Bacteria FEW A Urine 2+ H Hemoglobin Urine Random 68.73 Creatinine Urine Random 44 Sodium Urine Glucose NEGATIVE Urine Total 59.0 H Protein Sodium Level 138 Potassium Level 4.5 Chloride Level 103 Carbon Dioxide 27 Level Anion Gap 8 Blood Urea 48 H Nitrogen Creatinine 1.46 H Est Glomerular Filtrat Rate mL/min Glucose Level 89 # Calcium Level 8.4 Blood Gas Blood arterial Specimen Source Arterial Blood 10/28/2018 8:15 Date Drawn :44 AM Arterial Blood 7.374 pH (Temp corrected ) Arterial Blood 44.9 pCO2 (Temp correct) Arterial Blood 90.0 pO2 (Temp corrected ) Arterial Blood 25.6 HCO3 Arterial Blood 0.1 Base Excess Arterial Blood 96.8 Oxygen Saturati on Jeremie Test ACCEPTAB Arterial Blood Right Radial Gas Puncture Site Arterial 0.2 Blood Carboxyhe moglobin Arterial Blood 0.3 Methemoglobin Blood Gas A-a 143.6 H O2 Differential Oxyhemoglobin 96.3 Percent Blood Gas 37.0 Temperature Blood Gas 16.0 Respiration Rate Blood Gas 18 Actual Respiration Rat e Blood Gas VENT - AC Modality FiO2 40.0 Blood Gas Tidal 500.0 Volume Blood Gas Low 5.0 PEEP Setting Blood Gas TM Notified Whom Blood Gas 10/28/2018 8:36 Notified Time :28 AM Phenytoin 10.3 (Dilantin) Level KLEYNBERG,VERA M MD Oct 28, 2018 23:36
[2018-10-29] VITALS (36 sets, daily range): BP systolic 120–148; BP diastolic 51–83; PULSE 80–108; RESP 10–40
[2018-10-29] MEDS: PANTOPRAZOLE 40 MG INJ IV SCH (06:27)
[2018-10-29] MEDS: PHENYTOIN 100 MG INJ IV SCH ×2 (06:27→14:07)
[2018-10-29] MEDS ORDERED: MAGNESIUM SULFATE 2 GM/50 ML 50 ML IVPB ONE (08:00)
--- NOTE | 2018-10-29 08:04 | PN ---
DATE: 10/29/2018 SUBJECTIVE: The patient is in serous, but stable condition, on full ventilatory support. The patien t had excellent urinary output. No other events noted. OBJECTIVE: VITAL SIGNS: Blood pressure is 142/67, respirations 16, pulse 18, temperature 100.0. HEENT: Head is normocephalic. NECK: Supple. HEART: Regular rate. LUNGS: Show diminished breath sounds at the base. ABDOMEN: Soft, nontender to palpation. No rebound or guarding. EXTREMITIES: Negative for clubbing, cyanosis, no edema. DERMATOLOGIC: No rashes. MUSCULOSKELETAL: No joint effusion. NEUROLOGIC: No change in exam. MEDICATIONS: The patient's medications have been reviewed. LABORATORY DATA: Shows blood cultures 1 out of 2 positive for gram-positive cocci. The patient's BM P shows sodium 139, potassium 3.7, BUN 44, creatinine 1.51, magnesium 1.5. The patient's CBC is pend ing. ABG was reviewed. Urinalysis shows FENa greater than 1%, protein creatinine ratio approximatel y 800 mg per gram of creatinine. The patient's urinalysis shows pyuria, calcium oxalate crystals, sq uamous epithelial cells and hematuria. IMAGING: Chest x-ray was reviewed and showed interstitial changes, patchy infiltrates. ASSESSMENT AND PLAN: 1. Nonoliguric acute kidney injury on top of chronic kidney disease with previous baseline creatinin e of 1.5 mg/dL. Etiology of acute kidney injury is secondary to hemodynamics. Renal function is cur rently at baseline. We will continue current treatment plan, supportive care, renally dose all medic thomas. 2. Acute diastolic heart failure. The patient appears compensated. Continue current medical manage ment. Follow up with Cardiology. 3. Anemia. Continue to monitor hemoglobin and hematocrit levels. 4. Mineral bone disorder, monitor calcium and phosphorus levels. 5. Atrial fibrillation, currently rate controlled. Continue medical management. 6. Ventilator-dependent respiratory failure. Vent settings and ABG has been reviewed. Continue to monitor. Follow up with Pulmonary. 7. Dysphagia. Continue modified diet. 8. Chronic obstructive pulmonary disease. Continue medical management. 9. Encephalopathy, etiology is toxic metabolic. Continue to monitor. 10. Sepsis secondary to bacteremia. Continue antibiotic therapy, monitor closely. The patient's IV fluids were deescalated given history of heart failure. Monitor I's and O's closely. 11. Seizure disorder. Continue Dilantin. 12. Hypomagnesemia. We will replete with magnesium sulfate. Dictated By: RAJINDER WATTS/MONROE Conf#: [id number] DID#: [id number] CC: ROSALVA SANCHES MD; MENDEL FIELDS MD;*EndCC*
--- NOTE | 2018-10-29 08:28 | PN ---
DATE: 10/29/2018 SUBJECTIVE: This is a 73-year-old female patient, who was transferred from [facility] to the ICU on 10/27/2018. She was seen by Dr. Mosley and the next day by Dr. Fernandes for pulmonary management. Th is patient is well known to me and has been followed by me for the past few years. The patient was r ecently here after treatment for congestive heart failure, decompensated chronic obstructive pulmonar y disease and she was transferred to [facility] last Sunday. The patient was transferred back to the intensive care unit on 10/27/2018 with a rapid atrial fibrill ation. She also had seizures. She continues to have twitchings. The patient's mental status is als o poor. She has been seen by multiple consultants for cardiology, neurology and nephrology. The pat ient has been started on phenytoin for control of seizures. The CT scan has been nondiagnostic. MRI scan is being planned. The patient herself is unable to give any history. Her mental status is poor. She is known to have chronic obstructive pulmonary disease, congestive heart failure, chronic atrial fibrillation. She al so has history of pulmonary fibrosis. In addition, the patient also has a history of chronic anemia and chronic kidney disease. Currently, the patient is on vancomycin and Maxipime. PHYSICAL EXAMINATION: The physical examination in ICU shows an elderly patient who has a tracheostomy for airway access dede ng connected to the ventilator this morning, her temperature is 99.8, blood pressure is 129/67, pulse rate is 94 showing atrial fibrillation, respiratory rate is 19, pulse oximetry shows 100% saturation with 40% inhaled oxygen concentration. Tracheal secretions are clear and mucoid, but no bleeding is seen. HEART: Atrial fibrillation with controlled ventricular rate. CHEST: Breath sounds are heard bilaterally, diminished in both the lung corona with rales and rhonch i. ABDOMEN: Soft, no distention seen. Bowel sounds are present. EXTREMITIES: Show no edema. No cyanosis, no clubbing, no calf tenderness. NEUROLOGICAL: The patient is poorly responsive shows minimal eye opening, but does not focus. She d oes not follow. She shows a response to deep painful stimuli with facial grimacing. LABORATORY DATA: The lab tests show sodium 139, potassium 3.7, bicarbonate of 26, BUN 44, creatinine 1.51. Lactic acid level done earlier 2 days ago was 2.3, slightly high. The CBC showed of 10/27/20 18 white count of 20,000, hemoglobin 13.1, hematocrit 44.7, platelets are within normal limits. Amara beyer's CBC results are awaited. The arterial blood gases done on 10/28/2018 yesterday showed ABG: pH 7 .37, pCO2 of 44, pO2 90 on 40% oxygen with a rate of 16. Urinalysis shows white blood cell count mor e than 182, leukocyte esterase 2+ positive, urine was cloudy. IMAGING STUDIES: The chest x-ray taken on the day of admission showed no significant interval change . Mild cardiomegaly with increased interstitial markings throughout the lungs. Mild patchy bibasila r infiltrates and small left pleural effusion. IMPRESSIONS: 1. Chronic ventilator-dependent respiratory failure. 2. Advanced chronic obstructive pulmonary disease. 3. History of pulmonary fibrosis. 4. History of congestive heart failure. 5. Chronic atrial fibrillation. 6. New onset seizures. 7. Possible sepsis. Cultures are pending. 8. Chronic kidney disease. 9. Acute encephalopathy, probably multifactorial. RECOMMENDATIONS: 1. As the patient is ventilator dependent, ventilator support needs to be continued on long-term bas is. Blood gases are satisfactory. 2. Continue antibiotics pending culture results. 3. Sputum culture from the tracheostomy aspirate will also be sent. 4. Continue bronchodilator inhalation therapy to maintain pulmonary hygiene and clear the secretions . 5. Continue to inhale steroid, Pulmicort. We will avoid intravenous steroids at this time. 6. The patient is scheduled to have MRI scan. Based on the MRI scan findings further neurological f ollow-up will be done. 7. Continue anticonvulsant medications. 8. If the patient's mental status does not improve, and if she cannot swallow safely she would need to have a tube feeding, probably initially nasogastric tube and later as for long-term feeding, upper clear endoscopic gastrostomy tube feedings may be necessary. 9. Continue deep vein thrombosis prophylaxis. 10. Continue gastrointestinal prophylaxis. Dictated By: KORTNEY GAMEZ MD SR/NTS Conf#: [id number] DID#: [id number] CC: ROSALVA SANCHES MD; MENDEL FIELDS MD;*End*
[2018-10-29] MEDS: CEFEPIME 1GM/50 ML (PMX) 50 ML IVPB SCH (09:29)
[2018-10-29] MEDS: ENOXAPARIN 60 MG/0.6 ML SYG SC SCH (09:33)
[2018-10-29] MEDS: IPRATROPIUM (NEB) 0.5 MG/2.5 ML AMP HHN SCH ×3 (09:48→19:17)
[2018-10-29] MEDS: LEVALBUTEROL (NEB) 1.25 MG/0.5 ML AMP HHN SCH ×3 (09:48→19:17)
[2018-10-29] MEDS: BUDESONIDE (NEB) 0.5MG/2ML AMP HHN SCH ×2 (09:49→19:17)
[2018-10-29] MEDS: ASPIRIN 81 MG TAB PO SCH (10:00)
[2018-10-29] MEDS: MUPIROCIN 2% 22 GM OINT TOP SCH ×2 (10:00→20:14)
[2018-10-29] MEDS ORDERED: MIDAZOLAM 1 MG/ML 2 ML INJ IV PRN (11:30)
--- NOTE | 2018-10-29 11:47 | CONS ---
Date/Time of Note Date/Time of Note DATE: 10/29/18 TIME: 11:46 Assessment/Plan Assessment/Plan Chief Complaint/Hosp Course Patient remains nonresponsive, she is laying down in bed with open eyes her face is twitching she just finished EEG with preliminary report positive for seizures. T-max 102 current 99.9 pulse 97 respirations 23 blood pressure 128/79 saturation 92% on vent WBC 8.4 H&H 10.2 and 34 platelets 150 neutrophils 87.5 BUN 44 creatinine 1.51 Microbiology: Blood culture on admission grew staph species, MRSA screen positive, urine culture growing gram-negative rods. MRI of the brain revealed acute nonhemorrhagic right parietal, medial occipital, posterior temporal and right temporal gyral cortical infarcts. Chest x-ray from yesterday revealed mild cardiomegaly, mild patchy bibasilar infiltrates Antimicrobials: Vancomycin, cefepime Indwelling: Tracheostomy, Damon catheter, peripheral IV Physical examination: Chronically ill-appearing elderly woman who is awake nonverbal noncommunicative and in no distress. Head atraumatic normocephalic sclera nonicteric. Neck is supple, tracheostomy present. Chest rise symmetrical, breath sounds diminished bases. Heart: S1-S2. Abdomen soft bowel sounds present. Extremities with trace edema. Assessment: 1. Acute encephalopathy secondary to CVA 2. Urinary tract infection, recurrent 3. Seizure disorder 4. Bacteremia, possibly contaminant 5. MRSA nares colonization 6. Atrial fibrillation 7. Healthcare associated pneumonia Plan: Patient is hemodynamically stable, with ongoing seizures, family refusing sedation and Ativan, she is on Dilantin, neurology follows, we will repeat blood cultures and continue her on current antibiotics Consultation Date/Type/Reason Admit Date/Time Oct 27, 2018 at 08:14 Initial Consult Date 10/28/18 Type of Consult ID Requesting Provider: JAYLEN LUGO MD Exam/Review of Systems Vital Signs Vitals Vital Signs Date Temp Pulse Resp B/P (MAP) Pulse Ox O2 O2 Flow FiO2 Time Delivery Rate 10/29/18 97 23 128/79 93 Mechanical 11:00 (95) Ventilator 10/29/18 99.9 08:00 10/29/18 40 05:36 Intake and Output 10/28/18 10/28/18 10/29/18 1515:00 23:00 07:00 IntakeIntake Total 545 ml 580 ml 280 ml OutputOutput Total 200 ml 425 ml 400 ml BalanceBalance 345 ml 155 ml -120 ml Medications Medications Current Medications Sodium Chloride 1,000 ml @ 40 mls/hr Q24H IV Last administered on 10/28/18at 21:15; Admin Dose 40 MLS/HR; Start 10/27/18 at 12:30 Enoxaparin Sodium (Lovenox) 60 mg DAILY SC Last administered on 10/29/18at 09:33; Admin Dose 60 MG; Start 10/27/18 at 13:30 Metoprolol Tartrate (Lopressor) 5 mg Q4H PRN IV HR>110 Hold SBP<100 Last administered on 10/28/18at 05:38; Admin Dose 5 MG; Start 10/27/18 at 13:30 Cefepime HCl 50 ml @ 100 mls/hr DAILY IVPB Last administered on 10/29/18at 09:29; Admin Dose 100 MLS/HR; Start 10/28/18 at 09:00 Acetaminophen (Tylenol Supp) 650 mg Q6H PRN [place] FEVER GREATER THAN 100.6 Last administered on 10/28/18at 03:07; Admin Dose 650 MG; Start 10/28/18 at 02:30 Hydralazine HCl (Apresoline) 10 mg Q4H PRN IV SBP>170; Start 10/28/18 at 11:00 Vancomycin HCl (Vanco Iv Per Pharmacy) VANCOMYCIN PER PHARMACY PER PROTOCOL XX ; Start 10/28/18 at 13:00 Pantoprazole (Protonix Iv) 40 mg DAILY@06 IV Last administered on 10/29/18at 06:27; Admin Dose 40 MG; Start 10/29/18 at 06:00 Vancomycin HCl 250 ml @ 125 mls/hr Q48H IVPB Last administered on 10/28/18at 14:10; Admin Dose 125 MLS/HR; Start 10/28/18 at 14:00 Mupirocin (Bactroban) 1 applic BID TOP Last administered on 10/29/18at 10:00; Admin Dose 1 APPLIC; Start 10/28/18 at 21:00 Phenytoin (Dilantin) 100 mg Q8 IV Last administered on 10/29/18at 06:27; Admin Dose 100 MG; Start 10/29/18 at 06:00 Levalbuterol (Xopenex Neb) 1.25 mg Q6H RESP THERAPY HHN Last administered on 10/29/18at 09:48; Admin Dose 1.25 MG; Start 10/29/18 at 08:00 Budesonide (Pulmicort (Neb)) 0.5 mg BID RESP THERAPY HHN Last administered on 10/29/18at 09:49; Admin Dose 0.5 MG; Start 10/29/18 at 09:00 Ipratropium [place] (Atrovent 0.02% (Neb)) 0.5 mg Q6H RESP THERAPY HHN Last administered on 10/29/18at 09:48; Admin Dose 0.5 MG; Start 10/29/18 at 08:00 Aspirin (Aspirin) 81 mg DAILY PO ; Start 10/29/18 at 10:00 Midazolam HCl (Versed) 2 mg ONCE PRN IV seizures; Start 10/29/18 at 11:30; Stop 10/30/18 at 23:00 Results Result Diagram: 10/29/18 0435 10/29/18 0435 Results 24 hrs Laboratory Tests Test 10/28/18 20:57 10/29/18 04:32 10/29/18 04:35 Phenytoin (Dilantin) Level 10.3 7.4 L Erythrocyte Sedimentation Rate 4.0 White Blood Count 8.4 # Red Blood Count 3.29 #L Hemoglobin 10.2 #L Hematocrit 34.0 #L Mean Corpuscular Volume 103.3 H Mean Corpuscular Hemoglobin 31.0 Mean Corpuscular 30.0 L Hemoglobin Concent Red Cell Distribution Width 15.7 H Platelet Count 150 # Mean Platelet Volume 10.3 Immature Granulocytes % 0.600 H Neutrophils % 87.5 H Lymphocytes % 8.1 L Monocytes % 3.8 Eosinophils % 0.0 Basophils % 0.0 Nucleated Red Blood Cells % 0.0 Immature Granulocytes # 0.050 H Neutrophils # 7.3 Lymphocytes # 0.7 L Monocytes # 0.3 Eosinophils # 0.0 Basophils # 0.0 Nucleated Red Blood Cells # 0.0 Sodium Level 139 Potassium Level 3.7 Chloride Level 106 Carbon Dioxide Level 26 Anion Gap 7 Blood Urea Nitrogen 44 H Creatinine 1.51 H Est Glomerular Filtrat Rate mL/min Glucose Level 78 Calcium Level 8.2 L Phosphorus Level 3.7 Magnesium Level 1.5 L DEBO UMANA NP Oct 29, 2018 11:47
--- NOTE | 2018-10-29 11:59 | CONS ---
Date/Time of Note Date/Time of Note DATE: 10/29/18 TIME: 11:57 Assessment/Plan Assessment/Plan Additional Assessment/Plan 1. Atrial fibrillation with a rapid ventricular response.-now improved HR s/p IVP digoxin doses x 2 - HR much better now - will monitor closely. Responded to Rx. 2. Abnormal electrocardiogram with ST depressions during atrial fibrillation with rapid ventricular response. 3. Altered mental state/encephalopathy- still altered. 4. Possible seizure-like activity - neurology. 5. Congestive heart failure, diastolic, chronic- euvolemic on exam. 6. Hypertension- BP well controlled. 7. Urinary tract infection - on anti-Bx, will Rx. 8. Renal failure. 9. Leukocytosis. 10. bacteremia 11.fevers Consultation Date/Type/Reason Admit Date/Time Oct 27, 2018 at 08:14 Initial Consult Date 10/28/18 Requesting Provider: JAYLEN LUGO MD 24 HR Interval Summary Free Text/Dictation Rate controlled - anti-coagulation per neurology team - not in CHF by exam. ROS: No fever, no chills, no nausea, no vomiting, no diarrhea/constipation No recent weight changes No chest pain, no PND, no orthopnea - chroic SOB No dizziness, blurred vision No thirst, no heat or cold intolerance Exam/Review of Systems Vital Signs Vitals Vital Signs Date Temp Pulse Resp B/P (MAP) Pulse Ox O2 O2 Flow FiO2 Time Delivery Rate 10/29/18 97 23 128/79 93 Mechanical 11:00 (95) Ventilator 10/29/18 99.9 08:00 10/29/18 40 05:36 Intake and Output 10/28/18 10/28/18 10/29/18 1515:00 23:00 07:00 IntakeIntake Total 545 ml 580 ml 280 ml OutputOutput Total 200 ml 425 ml 400 ml BalanceBalance 345 ml 155 ml -120 ml Exam General: WN/WD/NAD, AOx comfortable, vconfused HEENT: Unicetric/atraumatic/EOMI (does not follow commands) NECK: trach Lymph: no lymphadenopathy HEART: irregular with no S3, II/ systolic murmur at apex LUNGS: Coarse sounds ABD: soft, NT, ND, +BS : Intact Neuro: non focal SKIN: chronic changes EXT: trace edema Medications Medications Current Medications Sodium Chloride 1,000 ml @ 40 mls/hr Q24H IV Last administered on 10/28/18at 21:15; Admin Dose 40 MLS/HR; Start 10/27/18 at 12:30 Enoxaparin Sodium (Lovenox) 60 mg DAILY SC Last administered on 10/29/18at 09:33; Admin Dose 60 MG; Start 10/27/18 at 13:30 Metoprolol Tartrate (Lopressor) 5 mg Q4H PRN IV HR>110 Hold SBP<100 Last administered on 10/28/18at 05:38; Admin Dose 5 MG; Start 10/27/18 at 13:30 Cefepime HCl 50 ml @ 100 mls/hr DAILY IVPB Last administered on 10/29/18at 09:29; Admin Dose 100 MLS/HR; Start 10/28/18 at 09:00 Acetaminophen (Tylenol Supp) 650 mg Q6H PRN [place] FEVER GREATER THAN 100.6 Last administered on 10/28/18at 03:07; Admin Dose 650 MG; Start 10/28/18 at 02:30 Hydralazine HCl (Apresoline) 10 mg Q4H PRN IV SBP>170; Start 10/28/18 at 11:00 Vancomycin HCl (Vanco Iv Per Pharmacy) VANCOMYCIN PER PHARMACY PER PROTOCOL XX ; Start 10/28/18 at 13:00 Pantoprazole (Protonix Iv) 40 mg DAILY@06 IV Last administered on 10/29/18at 06:27; Admin Dose 40 MG; Start 10/29/18 at 06:00 Vancomycin HCl 250 ml @ 125 mls/hr Q48H IVPB Last administered on 10/28/18at 14:10; Admin Dose 125 MLS/HR; Start 10/28/18 at 14:00 Mupirocin (Bactroban) 1 applic BID TOP Last administered on 10/29/18at 10:00; Admin Dose 1 APPLIC; Start 10/28/18 at 21:00 Phenytoin (Dilantin) 100 mg Q8 IV Last administered on 10/29/18at 06:27; Admin Dose 100 MG; Start 10/29/18 at 06:00 Levalbuterol (Xopenex Neb) 1.25 mg Q6H RESP THERAPY HHN Last administered on 10/29/18at 09:48; Admin Dose 1.25 MG; Start 10/29/18 at 08:00 Budesonide (Pulmicort (Neb)) 0.5 mg BID RESP THERAPY HHN Last administered on 10/29/18at 09:49; Admin Dose 0.5 MG; Start 10/29/18 at 09:00 Ipratropium [place] (Atrovent 0.02% (Neb)) 0.5 mg Q6H RESP THERAPY HHN Last administered on 10/29/18at 09:48; Admin Dose 0.5 MG; Start 10/29/18 at 08:00 Aspirin (Aspirin) 81 mg DAILY PO ; Start 10/29/18 at 10:00 Midazolam HCl (Versed) 2 mg ONCE PRN IV seizures; Start 10/29/18 at 11:30; Stop 10/30/18 at 23:00 Results Result Diagram: 10/29/18 0435 10/29/18 0435 Results 24 hrs Laboratory Tests Test 10/28/18 20:57 10/29/18 04:32 10/29/18 04:35 Phenytoin (Dilantin) Level 10.3 7.4 L Erythrocyte Sedimentation Rate 4.0 White Blood Count 8.4 # Red Blood Count 3.29 #L Hemoglobin 10.2 #L Hematocrit 34.0 #L Mean Corpuscular Volume 103.3 H Mean Corpuscular Hemoglobin 31.0 Mean Corpuscular 30.0 L Hemoglobin Concent Red Cell Distribution Width 15.7 H Platelet Count 150 # Mean Platelet Volume 10.3 Immature Granulocytes % 0.600 H Neutrophils % 87.5 H Lymphocytes % 8.1 L Monocytes % 3.8 Eosinophils % 0.0 Basophils % 0.0 Nucleated Red Blood Cells % 0.0 Immature Granulocytes # 0.050 H Neutrophils # 7.3 Lymphocytes # 0.7 L Monocytes # 0.3 Eosinophils # 0.0 Basophils # 0.0 Nucleated Red Blood Cells # 0.0 Sodium Level 139 Potassium Level 3.7 Chloride Level 106 Carbon Dioxide Level 26 Anion Gap 7 Blood Urea Nitrogen 44 H Creatinine 1.51 H Est Glomerular Filtrat Rate mL/min Glucose Level 78 Calcium Level 8.2 L Phosphorus Level 3.7 Magnesium Level 1.5 L KINGSTON HEARD MD Oct 29, 2018 11:59
--- NOTE | 2018-10-29 12:02 | CONS ---
Date/Time of Note Date/Time of Note DATE: 10/29/18 TIME: 12:02 Assessment/Plan Assessment/Plan Chief Complaint/Hosp Course ANEMIA WITH COMPONENT ACD CONT TO MONITOR BLOOD COUNT CLOSELY OBSERVE FOR BLEEDING AND HEMOLYSIS NO INDICATIONS FOR TRANSFUSION Hypomagnesium- resolved [id number] respiratory failure. The patient's respiratory status has improved after he was dialyzed yesterday. The patient is breathing comfortably. Endstage renal disease. Continue hemodialysis as per Dr. Monique. Coronary artery disease. Continue aspirin and carvedilol. Cardiomyopathy. Continue aspirin, carvedilol and Eliquis. Dyslipidemia. The patient is already maxed out on Lipitor. Benign prostatic hypertrophy. Continue Flomax. Chronic obstructive pulmonary disease evaluation. Continue DuoNeb, Rocephin. Meanwhile, we will decrease Solu-Medrol to 20 daily. Diabetes. Out of control due to Solu-Medrol and also patient due to agitation and unpredictable p.o. intake was not given long-acting. The patient at home takes Tresiba. I will start him on Lantus. Acute psychosis. Continue p.r.n. Haldol. Chronic lower back pain. Continue Conley as needed. Consultation Date/Type/Reason Admit Date/Time Oct 27, 2018 at 08:14 Initial Consult Date 10/28/18 Type of Consult [facility] Requesting Provider: JAYLEN LUGO MD 24 HR Interval Summary Free Text/Dictation ALL NOTED Exam/Review of Systems Vital Signs Vitals Vital Signs Date Temp Pulse Resp B/P (MAP) Pulse Ox O2 O2 Flow FiO2 Time Delivery Rate 10/29/18 97 23 128/79 93 Mechanical 11:00 (95) Ventilator 10/29/18 99.9 08:00 10/29/18 40 05:36 Intake and Output 10/28/18 10/28/18 10/29/18 1414:59 22:59 06:59 IntakeIntake Total 455 ml 705 ml 320 ml OutputOutput Total 200 ml 395 ml 370 ml BalanceBalance 255 ml 310 ml -50 ml Exam Constitutional: non-verbal Psych: nl mood/affect Eyes: nl conjunctiva, nl lids, nl sclera ENMT: nl external ears & nose Neck: other Respiratory: diminished breath sounds Cardiovascular: nl pulses, other Gastrointestinal: soft, other Musculoskeletal: muscle weakness, range of motion Extremities: normal pulses Neurological: lethargic Lymph: nontender Medications Medications Current Medications Sodium Chloride 1,000 ml @ 40 mls/hr Q24H IV Last administered on 10/28/18at 21:15; Admin Dose 40 MLS/HR; Start 10/27/18 at 12:30 Enoxaparin Sodium (Lovenox) 60 mg DAILY SC Last administered on 10/29/18at 09 :33; Admin Dose 60 MG; Start 10/27/18 at 13:30 Metoprolol Tartrate (Lopressor) 5 mg Q4H PRN IV HR>110 Hold SBP<100 Last administered on 10/28/18at 05:38; Admin Dose 5 MG; Start 10/27/18 at 13:30 Cefepime HCl 50 ml @ 100 mls/hr DAILY IVPB Last administered on 10/29/18at 09:29; Admin Dose 100 MLS/HR; Start 10/28/18 at 09:00 Acetaminophen (Tylenol Supp) 650 mg Q6H PRN [place] FEVER GREATER THAN 100.6 Last administered on 10/28/18at 03:07; Admin Dose 650 MG; Start 10/28/18 at 02:30 Hydralazine HCl (Apresoline) 10 mg Q4H PRN IV SBP>170; Start 10/28/18 at 11:00 Vancomycin HCl (Vanco Iv Per Pharmacy) VANCOMYCIN PER PHARMACY PER PROTOCOL XX ; Start 10/28/18 at 13:00 Pantoprazole (Protonix Iv) 40 mg DAILY@06 IV Last administered on 10/29/18at 06:27; Admin Dose 40 MG; Start 10/29/18 at 06:00 Vancomycin HCl 250 ml @ 125 mls/hr Q48H IVPB Last administered on 10/28/18at 14:10; Admin Dose 125 MLS/HR; Start 10/28/18 at 14:00 Mupirocin (Bactroban) 1 applic BID TOP Last administered on 10/29/18at 10:00; Admin Dose 1 APPLIC; Start 10/28/18 at 21:00 Phenytoin (Dilantin) 100 mg Q8 IV Last administered on 10/29/18at 06:27; Admin Dose 100 MG; Start 10/29/18 at 06:00 Levalbuterol (Xopenex Neb) 1.25 mg Q6H RESP THERAPY HHN Last administered on 10/29/18at 09:48; Admin Dose 1.25 MG; Start 10/29/18 at 08:00 Budesonide (Pulmicort (Neb)) 0.5 mg BID RESP THERAPY HHN Last administered on 10/29/18at 09:49; Admin Dose 0.5 MG; Start 10/29/18 at 09:00 Ipratropium [place] (Atrovent 0.02% (Neb)) 0.5 mg Q6H RESP THERAPY HHN Last administered on 10/29/18at 09:48; Admin Dose 0.5 MG; Start 10/29/18 at 08:00 Aspirin (Aspirin) 81 mg DAILY PO ; Start 10/29/18 at 10:00 Midazolam HCl (Versed) 2 mg ONCE PRN IV seizures; Start 10/29/18 at 11:30; Stop 10/30/18 at 23:00 Results Result Diagram: 10/29/18 0435 10/29/18 0435 Results 24 hrs Laboratory Tests Test 10/28/18 20:57 10/29/18 04:32 10/29/18 04:35 Phenytoin (Dilantin) Level 10.3 7.4 L Erythrocyte Sedimentation Rate 4.0 White Blood Count 8.4 # Red Blood Count 3.29 #L Hemoglobin 10.2 #L Hematocrit 34.0 #L Mean Corpuscular Volume 103.3 H Mean Corpuscular Hemoglobin 31.0 Mean Corpuscular 30.0 L Hemoglobin Concent Red Cell Distribution Width 15.7 H Platelet Count 150 # Mean Platelet Volume 10.3 Immature Granulocytes % 0.600 H Neutrophils % 87.5 H Lymphocytes % 8.1 L Monocytes % 3.8 Eosinophils % 0.0 Basophils % 0.0 Nucleated Red Blood Cells % 0.0 Immature Granulocytes # 0.050 H Neutrophils # 7.3 Lymphocytes # 0.7 L Monocytes # 0.3 Eosinophils # 0.0 Basophils # 0.0 Nucleated Red Blood Cells # 0.0 Sodium Level 139 Potassium Level 3.7 Chloride Level 106 Carbon Dioxide Level 26 Anion Gap 7 Blood Urea Nitrogen 44 H Creatinine 1.51 H Est Glomerular Filtrat Rate mL/min Glucose Level 78 Calcium Level 8.2 L Phosphorus Level 3.7 Magnesium Level 1.5 L WENDIE BARILLAS MD Oct 29, 2018 12:02
--- NOTE | 2018-10-29 14:44 | RADRPT ---
Echocardiogram Report Patient Name: KELI FARIAS Gender: Female Date: 1945 Study Date: 29-Oct-2018 Mask Designer: Anabela Carrington [facility] Location: 118 Ref. Physician: ROSALVA SANCHES Quality: Adequate Procedures: Transthoracic echocardiogram examination. Indications: stroke workup. Findings Left Ventricle: The left ventricular ejection fraction is visually estimated at 65 %. Mitral Valve: Anterior mitral valve leaflet appear mildly thickened. Posterior mitral valve leaflet appear mildly thickened. Mild mitral annular calcification. Aortic Valve: Aortic cusps appear mildly calcified. Trace aortic regurgitation. IVC: Dilated inferior vena cava with no respiratory collapse. Conclusions The left ventricular ejection fraction is visually estimated at 65 %. Anterior mitral valve leaflet appear mildly thickened. Posterior mitral valve leaflet appear mildly thickened. Mild mitral annular calcification. Aortic cusps appear mildly calcified. Trace aortic regurgitation. Electronically Signed By: Gerard Romero 29-Oct-2018 14:43:38 -0800 Patient Name: KELI FARIAS Study Date: 29-Oct-[id number]
--- NOTE | 2018-10-29 14:56 | CONS ---
[facility]IVE HCIS Consult Follow-up Patient Name: Tawana Dowd Unit Number: [id number] Date of : 1945 Patient Status: Admitted Inpatient Attending Doctor: Sadaf Vasquez Edit: CHRISTIANA LARSON on 10/29/18 @ 19:39 73 yo F with reported Hx of afib, HTN, and other comorbidities...who presents with ams, tachyarrhythmia, and involuntary muscle jerking...for which neurology is consulted. The clinical picture is consistent w/ status epilepticus. 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 EEG is consistent w/ the clinical Dx of status epilepticus... P: Add echocardiogram, ESR, RPR Start ASA/Lipitor for secondary stroke prevention for now Load Dilantin 500mg iv, then increase maintenance to 200mg q12h... Titrate dilantin PRN to goal level ~20. Repeat level in am. Other medical management and supportive care per primary Will follow clinically Consultation Date/Type/Reason Admit Date/Time Oct 27, 2018 at 08:14 Initial Consult Date 10/28/18 Type of Consult neurology Requesting Provider: JAYLEN LUGO MD 24 HR Interval Summary Free Text/Dictation Continues critical care. Pt still noted to have muscle tremors. Family is reportedly refusing echo, NGT for meds, and ativan. Subjective hx not possible: pt non-verbal, pt critical status Exam/Review of Systems Vital Signs Vitals Vital Signs Date Temp Pulse Resp B/P (MAP) Pulse Ox O2 O2 Flow FiO2 Time Delivery Rate 10/29/18 107 12:00 10/29/18 40 12:00 10/29/18 23 128/79 93 Mechanical 11:00 (95) Ventilator 10/29/18 99.9 08:00 Intake and Output 10/28/18 10/28/18 10/29/18 1515:00 23:00 07:00 IntakeIntake Total 545 ml 580 ml 280 ml OutputOutput Total 200 ml 425 ml 400 ml BalanceBalance 345 ml 155 ml -120 ml Exam PE: Gen Appearance: No Apparent Distress HEENT: Has trach Cardiovascular: SR on telemetry Abdomen: Soft Extremities: Dry NE: The patient was awake though nonverbal. Was blinking spontaneously. The pt did not track or follow commands. Cranial nerve examination was limited by mental status. Pupils were equal, round and briskly reactive to light. There was no afferent pupillary defect. Funduscopic examination was limited. Face was grossly symmetric, w/ a present cough/gag reflex. Tone was increased in her upper extremities . Muscle bulk was slightly diminish ed. I did see intermittent LUE/LLE rhythmic muscle jerking. The patient spontaneously moved her RUE and minimally withdrew to noxious stimuli in lower extremities. Coordination and gait testing was limited by mental status. Arm and leg reflexes were symmetric. Doshi's sign was absent. Plantar re sponses were flexor. Medications Medications Current Medications Sodium Chloride 1,000 ml @ 40 mls/hr Q24H IV Last administered on 10/28/18at 2 1:15; Admin Dose 40 MLS/HR; Start 10/27/18 at 12:30 Enoxaparin Sodium (Lovenox) 60 mg DAILY SC Last administered on 10/29/18at 09:33; Admin Dose 60 MG; Start 10/27/18 at 13:30 Metoprolol Tartrate (Lopressor) 5 mg Q4H PRN IV HR>110 Hold SBP<100 Last administered on 10/28/18at 05:38; Admin Dose 5 MG; Start 10/27/18 at 13:30 Cefepime HCl 50 ml @ 100 mls/hr DAILY IVPB Last administered on 10/29/18at 09:29; Admin Dose 100 MLS/HR; Start 10/28/18 at 09:00 Acetaminophen (Tylenol Supp) 650 mg Q6H PRN [place] FEVER GREATER THAN 100.6 Last administered on 10/28/18at 03:07; Admin Dose 650 MG; Start 10/28/18 at 02:30 Hydralazine HCl (Apresoline) 10 mg Q4H PRN IV SBP>170; Start 10/28/18 at 11:00 Vancomycin HCl (Vanco Iv Per Pharmacy) VANCOMYCIN PER PHARMACY PER PROTOCOL XX ; Start 10/28/18 at 13:00 Pantoprazole (Protonix Iv) 40 mg DAILY@06 IV Last administered on 10/29/18at 06:27; Admin Dose 40 MG; Start 10/29/18 at 06:00 Vancomycin HCl 250 ml @ 125 mls/hr Q48H IVPB Last administered on 10/28/18 14:10; Admin Dose 125 MLS/HR; Start 10/28/18 at 14:00 Mupirocin (Bactroban) 1 applic BID TOP Last administered on 10/29/18at 10:00; Admin Dose 1 APPLIC; Start 10/28/18 at 21:00 Phenytoin (Dilantin) 100 mg Q8 IV Last administered on 10/29/18 14:07; Admin Dose 100 MG; Start 10/29/18 at 06:00 Levalbuterol (Xopenex Neb) 1.25 mg Q6H RESP THERAPY HHN Last administered on 10/29/18 14:45; Admin Dose 1.25 MG; Start 10/29/18 at 08:00 Budesonide (Pulmicort (Neb)) 0.5 mg BID RESP THERAPY HHN Last administered on 10/29/18at 09:49; Admin Dose 0.5 MG; Start 10/29/18 at 09:00 Ipratropium [place] (Atrovent 0.02% (Neb)) 0.5 mg Q6H RESP THERAPY HHN Last administered on 10/29/18 14:45; Admin Dose 0.5 MG; Start 10/29/18 at 08:00 Aspirin (Aspirin) 81 mg DAILY PO ; Start 10/29/18 at 10:00 Midazolam HCl (Versed) 2 mg ONCE PRN IV seizures; Start 10/29/18 at 11:30; Stop 10/30/18 at 23:00 Results Result Diagram: 10/29/18 0435 10/29/18 0435 Results 24 hrs Laboratory Tests Test 10/28/18 20:57 10/29/18 04:32 10/29/18 04:35 Phenytoin (Dilantin) Level 10.3 7.4 L Erythrocyte Sedimentation Rate 4.0 White Blood Count 8.4 # Red Blood Count 3.29 #L Hemoglobin 10.2 #L Hematocrit 34.0 #L Mean Corpuscular Volume 103.3 H Mean Corpuscular Hemoglobin 31.0 Mean Corpuscular 30.0 L Hemoglobin Concent Red Cell Distribution Width 15.7 H Platelet Count 150 # Mean Platelet Volume 10.3 Immature Granulocytes % 0.600 H Neutrophils % 87.5 H Lymphocytes % 8.1 L Monocytes % 3.8 Eosinophils % 0.0 Basophils % 0.0 Nucleated Red Blood Cells % 0.0 Immature Granulocytes # 0.050 H Neutrophils # 7.3 Lymphocytes # 0.7 L Monocytes # 0.3 Eosinophils # 0.0 Basophils # 0.0 Nucleated Red Blood Cells # 0.0 Sodium Level 139 Potassium Level 3.7 Chloride Level 106 Carbon Dioxide Level 26 Anion Gap 7 Blood Urea Nitrogen 44 H Creatinine 1.51 H Est Glomerular Filtrat Rate mL/min Glucose Level 78 Calcium Level 8.2 L Phosphorus Level 3.7 Magnesium Level 1.5 L Date/Time of Note Date/Time of Note DATE: 10/29/18 TIME: 14:56 Assessment/Plan Assessment/Plan Chief Complaint/Hosp Course 73 yo F with reported Hx of afib, HTN, and other comorbidities...who presents with ams, tachyarrhythmia, and involuntary muscle jerking...for which neurology is consulted. The clinical picture is consistent w/ status epilepticus. The pt was noted to be in afib with RVR on readmission, which raises concern for superimposed acute stroke. Encephalitis is unlikely.. 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 P: Await EEG Add echocardiogram, ESR, RPR Start ASA/Lipitor for secondary stroke prevention Continue dilantin 100 TID as scheduled. Titrate dilantin PRN to goal level 10- 20. Repeat level in am. Versed iv for prolonged seizure > 5min or for cluster Other medical management and supportive care per primary Will follow clinically Consultation Date/Type/Reason Admit Date/Time Oct 27, 2018 at 08:14 Initial Consult Date 10/28/18 Type of Consult neurology Requesting Provider: JAYLEN LUGO MD 24 HR Interval Summary Free Text/Dictation Continues critical care. Pt still noted to have muscle tremors. Family is reportedly refusing echo, NGT for meds, and ativan. Subjective hx not possible: pt non-verbal, pt critical status Exam/Review of Systems Vital Signs Vitals Vital Signs Date Temp Pulse Resp B/P (MAP) Pulse Ox O2 O2 Flow FiO2 Time Delivery Rate 10/29/18 107 12:00 10/29/18 40 12:00 10/29/18 23 128/79 93 Mechanical 11:00 (95) Ventilator 10/29/18 99.9 08:00 Intake and Output 10/28/18 10/28/18 10/29/18 1515:00 23:00 07:00 IntakeIntake Total 545 ml 580 ml 280 ml OutputOutput Total 200 ml 425 ml 400 ml BalanceBalance 345 ml 155 ml -120 ml Exam PE: Gen Appearance: No Apparent Distress HEENT: Has trach Cardiovascular: SR on telemetry Abdomen: Soft Extremities: Dry NE: The patient was awake though nonverbal. Was blinking spontaneously. The pt did not track or follow commands. Cranial nerve examination was limited by mental status. Pupils were equal, round and briskly reactive to light. There was no afferent pupillary defect. Funduscopic examination was limited. Face was grossly symmetric, w/ a present cough/gag reflex. Tone was increased in her upper extremities . Muscle bulk was slightly diminished. I did see intermittent LUE/LLE rhythmic muscle jerking. The patient spontaneously moved her RUE and minimally withdrew to noxious stimuli in lower extremities. Coordination and gait testing was limited by mental status. Arm and leg reflexes were symmetric. Doshi's sign was absent. Plantar responses were flexor. Medications Medications Current Medications Sodium Chloride 1,000 ml @ 40 mls/hr Q24H IV Last administered on 10/28/18at 21:15; Admin Dose 40 MLS/HR; Start 10/27/18 at 12:30 Enoxaparin Sodium (Lovenox) 60 mg DAILY SC Last administered on 10/29/18at 09:33; Admin Dose 60 MG; Start 10/27/18 at 13:30 Metoprolol Tartrate (Lopressor) 5 mg Q4H PRN IV HR>110 Hold SBP<100 Last administered on 10/28/18at 05:38; Admin Dose 5 MG; Start 10/27/18 at 13:30 Cefepime HCl 50 ml @ 100 mls/hr DAILY IVPB Last administered on 10/29/18at 09:29; Admin Dose 100 MLS/HR; Start 10/28/18 at 09:00 Acetaminophen (Tylenol Supp) 650 mg Q6H PRN [place] FEVER GREATER THAN 100.6 Last administered on 10/28/18 03:07; Admin Dose 650 MG; Start 10/28/18 at 02:30 Hydralazine HCl (Apresoline) 10 mg Q4H PRN IV SBP>170; Start 10/28/18 at 11:00 Vancomycin HCl (Vanco Iv Per Pharmacy) VANCOMYCIN PER PHARMACY PER PROTOCOL XX ; Start 10/28/18 at 13:00 Pantoprazole (Protonix Iv) 40 mg DAILY@06 IV Last administered on 10/29/18at 06:27; Admin Dose 40 MG; Start 10/29/18 at 06:00 Vancomycin HCl 250 ml @ 125 mls/hr Q48H IVPB Last administered on 10/28/18at 14:10; Admin Dose 125 MLS/HR; Start 10/28/18 at 14:00 Mupirocin (Bactroban) 1 applic BID TOP Last administered on 10/29/18at 10:00; Admin Dose 1 APPLIC; Start 10/28/18 at 21:00 Phenytoin (Dilantin) 100 mg Q8 IV Last administered on 10/29/18 14:07; Admin Dose 100 MG; Start 10/29/18 at 06:00 Levalbuterol (Xopenex Neb) 1.25 mg Q6H RESP THERAPY HHN Last administered on 10/29/18 14:45; Admin Dose 1.25 MG; Start 10/29/18 at 08:00 Budesonide (Pulmicort (Neb)) 0.5 mg BID RESP THERAPY HHN Last administered on 10/29/18 09:49; Admin Dose 0.5 MG; Start 10/29/18 at 09:00 Ipratropium [place] (Atrovent 0.02% (Neb)) 0.5 mg Q6H RESP THERAPY HHN Last administered on 10/29/18 14:45; Admin Dose 0.5 MG; Start 10/29/18 at 08:00 Aspirin (Aspirin) 81 mg DAILY PO ; Start 10/29/18 at 10:00 Midazolam HCl (Versed) 2 mg ONCE PRN IV seizures; Start 10/29/18 at 11:30; Stop 10/30/18 at 23:00 Results Result Diagram: 10/29/18 0435 10/29/18 0435 Results 24 hrs Laboratory Tests Test 10/28/18 20:57 10/29/18 04:32 10/29/18 04:35 Phenytoin (Dilantin) Level 10.3 7.4 L Erythrocyte Sedimentation Rate 4.0 White Blood Count 8.4 # Red Blood Count 3.29 #L Hemoglobin 10.2 #L Hematocrit 34.0 #L Mean Corpuscular Volume 103.3 H Mean Corpuscular Hemoglobin 31.0 Mean Corpuscular 30.0 L Hemoglobin Concent Red Cell Distribution Width 15.7 H Platelet Count 150 # Mean Platelet Volume 10.3 Immature Granulocytes % 0.600 H Neutrophils % 87.5 H Lymphocytes % 8.1 L Monocytes % 3.8 Eosinophils % 0.0 Basophils % 0.0 Nucleated Red Blood Cells % 0.0 Immature Granulocytes # 0.050 H Neutrophils # 7.3 Lymphocytes # 0.7 L Monocytes # 0.3 Eosinophils # 0.0 Basophils # 0.0 Nucleated Red Blood Cells # 0.0 Sodium Level 139 Potassium Level 3.7 Chloride Level 106 Carbon Dioxide Level 26 Anion Gap 7 Blood Urea Nitrogen 44 H Creatinine 1.51 H Est Glomerular Filtrat Rate mL/min Glucose Level 78 Calcium Level 8.2 L Phosphorus Level 3.7 Magnesium Level 1.5 L JOE WYATT NP Oct 29, 2018 14:56
--- NOTE | 2018-10-29 19:30 | EEG ---
EEG NOTE Report Details DATE OF TEST: 10/29/18 HISTORY: The patient is a 73-year-old F who presents with altered mental status. This EEG is requested to evaluate for seizures. SEDATION: None. CONDITIONS OF RECORDING: This EEG was recorded digitally on the [employer] machine, using the [employer] 10-20 System of electrodes plus anterior temporals and [place]. STATES SAMPLED: Lethargic. FINDINGS: The background is asymmetric...somewhat discontinuous.. There are frequent right hemispheric sharp waves. There are 3 electrographic seizures noted, each < 60s in duration. The normal [id number] frequency-amplitude gradient was absent. Photic stimulation does not elicit any definite driving responses or epileptiform discharges. Hyperventilation was not performed. IMPRESSION: Abnormal electroencephalogram due to: frequent right hemispheric epileptiform discharges, with 3 right hemisphere onset secondarily generalized electrographic seizures noted, each less than one minute in duration, corresponding to annotated "chewing." CHRISTIANA LARSON Oct 29, 2018 19:30
[2018-10-29] MEDS ORDERED: PHENYTOIN 500 MG in SOD CHLORIDE 0.9% 100 ML IV STA (19:32)
--- NOTE | 2018-10-29 20:59 | PN ---
Date/Time of Note Date/Time of Note DATE: 10/29/18 TIME: 20:55 Assessment/Plan VTE Prophylaxis Risk score (from Ns)>0 risk: 12 SCD applied (from Ns): Yes Pharmacological prophylaxis: other Lines/Catheters IV Catheter Type (from Nrsg): Peripheral IV Urinary Cath still in place: Yes Reason Cath still needed: urinary retention Assessment/Plan Assessment/Plan - HYPOMAGNESIUM- REPLACED, fu am Mag 1. Acute encephalopathy. We will obtain EEG and a neurology consultation from Dr. Meng. 2. Fever and leukocytosis with positive blood culture. Continue IV vancomycin and cefepime. Further recommendation will depend on patient's hospital course and recommendation from Dr. Melendez. 3. Chronic obstructive pulmonary disease. Continue breathing treatment. 4. Paroxysmal atrial fibrillation. The patient is currently in atrial fibrillation. The patient is on metoprolol on p.r.n. basis. The patient is unable to take anything p.o. since she is encephalopathic. The patient does not have a G-tube or NG tube. - CVA prophylaxis- Lovenox based on creatinine - GI prophylaxis, continue Protonix. Total critical care time spent is 35 mins. Plan of care discussed with Dr Camilo/ nursing staff in ICU. Subjective 24 Hr Interval Summary Free Text/Dictation - Low Mag, replaced, fu am labs Subjective hx not possible: pt non-verbal, pt critical status Constitutional: requiring IVF, requiring O2 Exam/Review of Systems Vital Signs Vitals Vital Signs Date Temp Pulse Resp B/P (MAP) Pulse Ox O2 O2 Flow FiO2 Time Delivery Rate 10/29/18 98.8 103 16 122/61 100 Mechanical 20:00 (81) Ventilator 10/29/18 40 19:45 Intake and Output 10/28/18 10/28/18 10/29/18 1515:00 23:00 07:00 IntakeIntake Total 545 ml 580 ml 320 ml OutputOutput Total 200 ml 425 ml 400 ml BalanceBalance 345 ml 155 ml -80 ml Exam Constitutional: non-verbal, frail Eyes: nl conjunctiva, nl lids, nl sclera ENMT: nl external ears & nose Neck: non-tender, other (trach intact) Respiratory: diminished breath sounds Cardiovascular: nl pulses, irregular rhythm, other (s1s2) Musculoskeletal: muscle weakness, range of motion Extremities: normal pulses Neurological: confused SADEORA,FRANCESCO Oct 29, 2018 20:59
[2018-10-29] MEDS: SOD CHLORIDE 0.9% 1,000 ML IV SCH (22:34)
[2018-10-30] VITALS (35 sets, daily range): BP systolic 106–140; BP diastolic 52–105; PULSE 77–104; RESP 14–36
[2018-10-30] MEDS: LEVALBUTEROL (NEB) 1.25 MG/0.5 ML AMP HHN SCH ×4 (01:24→19:43)
[2018-10-30] MEDS: IPRATROPIUM (NEB) 0.5 MG/2.5 ML AMP HHN SCH ×4 (01:24→19:43)
[2018-10-30] MEDS: MIDAZOLAM 1 MG/ML 2 ML INJ IV PRN (02:40)
[2018-10-30] MEDS: PANTOPRAZOLE 40 MG INJ IV SCH (05:44)
[2018-10-30] MEDS: PHENYTOIN 100 MG INJ IV SCH ×2 (05:44→18:55)
[2018-10-30] MEDS: ASPIRIN 81 MG TAB PO SCH (08:32)
[2018-10-30] MEDS: MUPIROCIN 2% 22 GM OINT TOP SCH ×2 (08:32→20:41)
[2018-10-30] MEDS: BALSAM PERU/CASTOR OIL 60 GM TUBE TOP SCH (08:32)
[2018-10-30] MEDS: CEFEPIME 1GM/50 ML (PMX) 50 ML IVPB SCH (08:32)
[2018-10-30] MEDS: ENOXAPARIN 60 MG/0.6 ML SYG SC SCH (08:41)
--- NOTE | 2018-10-30 08:46 | PN ---
DATE: 10/30/2018 SUBJECTIVE: The patient remains altered, noted to be in status epilepticus per neurology. The patie nt is on full ventilatory support. No other events noted. OBJECTIVE: VITAL SIGNS: Blood pressure is 120/61, respirations 20, pulse 90, temperature 99.4. HEENT: Head is normocephalic. NECK: Supple. HEART: Regular rate. LUNGS: Show diminished breath sounds at the base. ABDOMEN: Soft, nontender to palpation. No rebound or guarding. EXTREMITIES: Negative for clubbing, cyanosis, no edema. DERMATOLOGIC: No rashes. MUSCULOSKELETAL: No joint effusion. NEUROLOGIC: No change in exam. MEDICATIONS: Reviewed. LABORATORY DATA: Shows sodium 142, potassium 3.5, BUN 41, creatinine 1.30. White count 8.4, hemoglo bin 10.5, platelet count is 132. Urinalysis was reviewed. IMAGING STUDIES: Chest x-ray was reviewed. Cultures have been reviewed. ASSESSMENT AND PLAN: 1. Nonoliguric acute kidney injury on top of chronic kidney disease with previous baseline creatinin e of 1.5 mg/dL. Etiology of acute kidney injury is secondary to hemodynamics. Renal function is cur rently below baseline. Continue current treatment plan, supportive care, renally dose all medicines. 2. Acute diastolic heart failure. The patient appears to be near euvolemic status. Monitor closely and IV fluids. 3. Anemia. Monitor hemoglobin and hematocrit levels. 4. Mineral bone disorder, monitor calcium and phosphorus levels. 5. Atrial fibrillation, rate controlled. Continue medical management. 6. Ventilator-dependent respiratory failure. Vent settings and ABG was reviewed. Continue to monit or. Follow up with pulmonary. 7. Dysphagia. The patient is currently n.p.o. Consider starting tube feedings. 8. Seizure disorder, possible status epilepticus. Continue medical management. Continue antiepilep tic medications. Follow up with Neurology. 9. Encephalopathy, etiology is secondary to seizures. Continue to monitor. 10. Sepsis secondary to bacteremia. Continue antibiotic therapy. 11. Hypomagnesemia. Continue to monitor and replete as needed. Dictated By: RAJINDER ATWOOD DO NR/NTS Conf#: [id number] DID#: [id number] CC: ROSALVA SANCHES MD; MENDEL FIELDS MD;*EndCC*
[2018-10-30] MEDS: BUDESONIDE (NEB) 0.5MG/2ML AMP HHN SCH ×2 (08:58→19:43)
--- NOTE | 2018-10-30 11:57 | CONS ---
Date/Time of Note Date/Time of Note DATE: 10/30/18 TIME: 11:53 Assessment/Plan Assessment/Plan Chief Complaint/Hosp Course IMPRESSION: 1. Atrial fibrillation with a rapid ventricular response.-now improved HR s/p IVP digoxin doses x 2 2. Ab[address] with [address] depressions during atrial fibrillation with rapid ventricular response. 3. Altered mental state/encephalopathy. 4. Possible seizure-like activity. 5. Congestive heart failure, diastolic, chronic. 6. Hypertension. 7. Urinary tract infection. 8. Renal failure. 9. Leukocytosis. 10. bacteremia 11.fevers Recc: -ICU -Continue IVP BB PRN until able to take PO's. ? place NGT -Continue lovenox -Continue abx's and f/u cx data -IVP PRN hydralazine -follow MS closely Consultation Date/Type/Reason Admit Date/Time Oct 27, 2018 at 08:14 Initial Consult Date 10/27/18 Type of Consult cardiology Reason for Consultation AF Requesting Provider: JAYLEN LUGO MD Exam/Review of Systems Vital Signs Vitals Vital Signs Date Temp Pulse Resp B/P (MAP) Pulse Ox O2 O2 Flow FiO2 Time Delivery Rate 10/30/18 81 24 100 30 11:15 10/30/18 120/61 Mechanical 06:00 (80) Ventilator 10/30/18 99.4 04:00 Intake and Output 10/29/18 10/29/18 10/30/18 1515:00 23:00 07:00 IntakeIntake Total 370 ml 630 ml 640 ml OutputOutput Total 280 ml 440 ml 435 ml BalanceBalance 90 ml 190 ml 205 ml Exam Review of Systems: CONSTITUTIONAL: No fevers, chills. PULMONARY: No sob CARDIOVASCULAR: No chest pain/palpitations GASTROINTESTINAL: No nausea/vomiting. GENITOURINARY: No hematuria/dysuria. MUSCULOSKELETAL: No myagias/arthalgias. PSYCHIATRIC: The patient denies depression. NEUROLOGIC: No weakness Constitutional: other (sleeping, arousable) Psych: no complaints Head: normocephalic ENMT: mucosa pink and moist Neck: supple, jvd (9 cm water) Respiratory: diminished breath sounds (at bases/B) Cardiovascular: regular rate and rhythm Gastrointestinal: soft, non-tender Musculoskeletal: muscle weakness (generalized) Extremities: edema (none) Neurological: lethargic FERGUSON,LUIS R. Oct 30, 2018 11:57
--- NOTE | 2018-10-30 12:31 | PN ---
DATE: 10/30/2018 SUBJECTIVE: The patient is in ICU on the ventilator support through tracheostomy. Her mental status is poor. Intermittently, she opens her eyes per nursing report. However, she makes eye contact and does not follow. No cognitive response seen during examination. PHYSICAL EXAMINATION: VITAL SIGNS: This morning shows temperature of 99.4, blood pressure 120/61, pulse rate 90, respirati ons 20, pulse oximetry 98% saturation. NECK: Tracheal secretions are mucoid. No bleeding seen. HEART: Irregular rhythm showing atrial fibrillation. CHEST: Breath sounds are heard, more diminished in the lower lung corona; otherwise rales and rhonch i on both sides. ABDOMEN: Soft. No distention seen, tolerating NG tube feedings. Bowel sounds are present. EXTREMITIES: Show no edema. Intermittent twitching movements are seen. LABORATORY RESULTS: From today show sodium of 142, potassium 3.5, BUN 41, creatinine 1.3, glucose 12 3. Both BUN and creatinine have shown some slight improvement. CBC from today shows a WBC 8400, hem oglobin 10.5, hematocrit 34.9, platelets slightly decreased to 132,000. The urine culture is reporte d to show gram-negative rods. Identification and sensitivity are awaited. Blood culture shows coagu lase-negative Staphylococcus in one specimen. The other one is negative. This could be a contaminan t. DIAGNOSTIC DATA: The chest x-ray from today shows cardiomegaly with central pulmonary vascular conge stion and mild interstitial prominence in both the lungs, also retrocardiac opacity which may be due to left lower lobe atelectasis or infiltrate combined with a small pleural effusion, also patchy lars hilar infiltrates in the right lung and small right pleural effusion. All of above could be due to c ongestive heart failure which the patient is known to have; however pneumonia was initially ruled out . Sputum cultures have been sent and the results are awaited. The patient had an MRI of the brain yesterday which shows an acute nonhemorrhagic multiple infarcts i nvolving the right parietal, medial, occipital, posterotemporal and right parahippocampal areas. Mil d to moderate chronic microvascular ischemic disease with diffuse volume loss is also seen. There is also parietal, lateral and parafalcine micro-calcified meningioma present. IMPRESSION: 1. Chronic ventilator dependent respiratory failure. 2. Multiple acute cerebral infarcts. 3. Acute encephalopathy. 4. Advanced chronic obstructive pulmonary disease. 5. Congestive heart failure. 6. History of pulmonary fibrosis. 7. Chronic atrial fibrillation. 8. New onset seizures. 9. Possible sepsis with urinary tract infection. 10. Chronic kidney disease. RECOMMENDATIONS: 1. The patient will be continued on long-term ventilator support. With multiple new acute cerebral infarcts and unstable neurological status, weaning will be difficult. 2. Continue antibiotics, pending culture results. This will be directed by the infectious disease c onsultant. 3. Continue bronchodilator inhalation therapy to maintain pulmonary hygiene and clear the secretions . 4. Continue inhaled steroids. 5. Continue anticonvulsant medications. 6. Continue G-tube feedings. If the patient cannot take oral feedings, gastrostomy tube feeding may be necessary for long-term nutrition. 7. Continue on GI prophylaxis. 8. Continue deep venous thrombosis prophylaxis. Dictated By: KORTNEY GAMEZ MD SR/NTS Conf#: [id number] DID#: [id number] CC: ROSALVA SANCHES MD; MENDEL FIELDS MD;*EndCC*
--- NOTE | 2018-10-30 14:01 | CONS ---
Assessment/Plan Assessment/Plan Assessment/Plan 73 yo F with reported Hx of afib, HTN, and other comorbidities...who presents with ams, tachyarrhythmia, and involuntary muscle jerking...for which neurology is consulted. The clinical picture is consistent w/ status epilepticus. The pt was noted to be in afib with RVR on readmission, which raises concern for superimposed acute stroke. Encephalitis is unlikely.. 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 EEG is notable for frequent right hemispheric epileptiform discharges, which is clinically consistent with status epilepticus. Echo is unrevealing. P: Continue ASA/Lipitor for secondary stroke prevention Reload Dilantin 300mg iv x1, then continue maintenance 200 BID. Repeat level in am. Titrate PRN to goal level 10-20 Versed iv for prolonged seizure > 5min or for cluster Other medical management and supportive care per primary Will follow clinically Result Diagram: 10/30/18 0435 10/30/18 0435 Results 24hrs Laboratory Tests Test 10/30/18 04:35 White Blood Count 8.4 Red Blood Count 3.46 L Hemoglobin 10.5 L Hematocrit 34.9 L Mean Corpuscular Volume 100.9 Mean Corpuscular Hemoglobin 30.3 Mean Corpuscular Hemoglobin Concent 30.1 L Red Cell Distribution Width 15.9 H Platelet Count 132 L Mean Platelet Volume 10.5 H Immature Granulocytes % 0.600 H Neutrophils % 91.4 H Lymphocytes % 5.2 L Monocytes % 2.8 Eosinophils % 0.0 Basophils % 0.0 Nucleated Red Blood Cells % 0.0 Immature Granulocytes # 0.050 H Neutrophils # 7.7 H Lymphocytes # 0.4 L Monocytes # 0.2 L Eosinophils # 0.0 Basophils # 0.0 Nucleated Red Blood Cells # 0.0 Sodium Level 142 Potassium Level 3.5 Chloride Level 110 Carbon Dioxide Level 26 Anion Gap 6 Blood Urea Nitrogen 41 H Creatinine 1.30 H Est Glomerular Filtrat Rate mL/min Glucose Level 123 # Calcium Level 8.0 L Phosphorus Level 3.0 Magnesium Level 1.8 Total Bilirubin 0.4 Direct Bilirubin 0.00 Indirect Bilirubin 0.4 Aspartate Amino Transf (AST/SGOT) 14 L Alanine Aminotransferase (ALT/SGPT) 22 Alkaline Phosphatase 48 Total Protein 4.9 L Albumin 2.4 L Globulin 2.50 Albumin/Globulin Ratio 0.96 Phenytoin (Dilantin) Level 8.2 L Consultation Date/Type/Reason Admit Date/Time Oct 27, 2018 at 08:14 Type of Consult Neurology Requesting Provider: JAYLEN LUGO MD Date/Time of Note DATE: 10/30/18 TIME: 13:51 24 HR Interval Summary Free Text/Dictation Continues critical care. S/p EEG and echo. Subjective hx not possible: pt non-verbal, pt critical Exam Vital Signs Vitals Vital Signs Date Temp Pulse Resp B/P (MAP) Pulse Ox O2 O2 Flow FiO2 Time Delivery Rate 10/30/18 88 22 100 30 12:45 10/30/18 120/61 Mechanical 06:00 (80) Ventilator 10/30/18 99.4 04:00 Intake and Output 10/29/18 10/29/18 10/30/18 1515:00 23:00 07:00 IntakeIntake Total 370 ml 630 ml 640 ml OutputOutput Total 280 ml 440 ml 435 ml BalanceBalance 90 ml 190 ml 205 ml Exam PE: Gen Appearance: No Apparent Distress HEENT: Has trach Cardiovascular: SR on telemetry Abdomen: Soft Extremities: Dry NE: The patient was awake though nonverbal. Was blinking spontaneously. The pt did not track or follow commands. Cranial nerve examination was limited by mental status. Pupils were equal, round and briskly reactive to light. There was no afferent pupillary defect. Funduscopic examination was limited. Face was grossly symmetric, w/ a present cough/gag reflex. Tone was increased in her upper extremities . Muscle bulk was slightly diminished. I did see a rhythmic chewing and an arhythmic L foot jerking. The patient spontaneously moved her UE and localized to noxious stimuli; the pt minimally withdrew to noxious stimuli in lower extremities. Coordination and gait testing was limited by mental status. Arm and leg reflexes were symmetric. Doshi's sign was absent. Plantar responses were flexor. JOE WYATT NP Oct 30, 2018 14:01 CHRISTIANA LARSON Oct 30, 2018 21:52
--- NOTE | 2018-10-30 14:32 | PN ---
Date/Time of Note Date/Time of Note DATE: 10/30/18 TIME: 14:30 Assessment/Plan VTE Prophylaxis Risk score (from Ns)>0 risk: 15 SCD applied (from [facility] [place]): Yes SCD contraindicated: other Pharmacological prophylaxis: other Lines/Catheters IV [facility]ter Type (from [facility]): Peripheral IV Urinary Cath still in place: Yes Reason Cath still needed: urinary retention Assessment/Plan Assessment/Plan -Hypomagnesium- resolved 1. Acute encephalopathy. - neurology follows; EEG done 2. Fever and leukocytosis with positive blood culture. Continue IV vancomycin and cefepime. Further recommendation will depend on patient's hospital course and recommendation from Dr. Melendez. 3. Chronic obstructive pulmonary disease. Continue breathing treatment. 4. Paroxysmal atrial fibrillation. The patient is currently in atrial fibrillation. The patient is on metoprolol on p.r.n. basis. The patient is unable to take anything p.o. since she is encephalopathic. The patient does not have a G-tube or NG tube. - CVA prophylaxis- Lovenox based on creatinine - GI prophylaxis, continue Protonix. Total critical care time spent is 35 mins. Plan of care discussed with Dr Camilo/ nursing staff in ICU. Subjective 24 Hr Interval Summary Free Text/Dictation Hypomagnesium - resolved Subjective hx not possible: pt non-verbal, pt critical Constitutional: requiring IVF, requiring O2 Exam/Review of Systems Vital Signs Vitals Vital Signs Date Temp Pulse Resp B/P (MAP) Pulse Ox O2 O2 Flow FiO2 Time Delivery Rate 10/30/18 88 22 100 30 12:45 10/30/18 120/61 Mechanical 06:00 (80) Ventilator 10/30/18 99.4 04:00 Intake and Output 10/29/18 10/29/18 10/30/18 1515:00 23:00 07:00 IntakeIntake Total 370 ml 630 ml 640 ml OutputOutput Total 280 ml 440 ml 435 ml BalanceBalance 90 ml 190 ml 205 ml Exam Constitutional: non-verbal Psych: nl mood/affect Eyes: nl conjunctiva, nl lids, nl sclera ENMT: nl external ears & nose Neck: other Respiratory: diminished breath sounds Cardiovascular: nl pulses, other Gastrointestinal: soft, other Musculoskeletal: muscle weakness, range of motion Extremities: normal pulses Neurological: lethargic Lymph: nontender FRANCESCO SIU Oct 30, 2018 14:32
[2018-10-30] MEDS: VANCOMYCIN 1 GM 250 ML IVPB SCH (15:00)
--- NOTE | 2018-10-30 15:27 | CONS ---
Date/Time of Note Date/Time of Note DATE: 10/30/18 TIME: 15:26 Assessment/Plan Assessment/Plan Chief Complaint/Hosp Course No acute changes overnight patient was started on tube feedings she has NG tube now clinically unchanged in no distress T-max 102 current 99.4 pulse 90 respirations 20 blood pressure 120/61 saturation 98 on vent WBC 8.4 H&H 10.5 and 34.9 platelets 132 neutrophils 91.4 BUN 41 creatinine 1.30 Microbiology: Blood culture on admission grew coag negative staph species with repeat blood cultures negative, urine culture growing Klebsiella ESBL Antimicrobials: Vancomycin, cefepime Indwelling: Tracheostomy, NG tube, Damon catheter, peripheral IV Physical examination: Chronically ill-appearing elderly woman who is awake nonverbal noncommunicative and in no distress. Head atraumatic normocephalic sclera nonicteric. Neck is supple, tracheostomy present. Chest rise symmetrical, breath sounds diminished bases. Heart: S1-S2. Abdomen soft bowel sounds present. Extremities with trace edema. Assessment: 1. Acute encephalopathy secondary to CVA 2. Urinary tract infection 3. Seizure disorder 4. Bacteremia, possibly contaminant 5. MRSA nares colonization 6. Atrial fibrillation 7. Healthcare associated pneumonia Plan: Remains unchanged, hemodynamically stable, on appropriate antibiotics Consultation Date/Type/Reason Admit Date/Time Oct 27, 2018 at 08:14 Initial Consult Date 10/28/18 Type of Consult ID Requesting Provider: JAYLEN LUGO MD Exam/Review of Systems Vital Signs Vitals Vital Signs Date Temp Pulse Resp B/P (MAP) Pulse Ox O2 O2 Flow FiO2 Time Delivery Rate 10/30/18 90 20 99 30 15:07 10/30/18 120/61 Mechanical 06:00 (80) Ventilator 10/30/18 99.4 04:00 Intake and Output 10/29/18 10/29/18 10/30/18 1515:00 23:00 07:00 IntakeIntake Total 370 ml 630 ml 640 ml OutputOutput Total 280 ml 440 ml 435 ml BalanceBalance 90 ml 190 ml 205 ml DEBO UMANA NP Oct 30, 2018 15:27
[2018-10-30] MEDS: SOD CHLORIDE 0.9% 1,000 ML IV SCH (21:56)
[2018-10-30] MEDS ORDERED: PHENYTOIN 300 MG in SOD CHLORIDE 0.9% 50 ML IV ONE (22:00)
--- NOTE | 2018-10-30 23:50 | CONS ---
Date/Time of Note Date/Time of Note DATE: 10/30/18 TIME: 23:47 Assessment/Plan Assessment/Plan Chief Complaint/Hosp Course ANEMIA WITH COMPONENT ACD CONT TO MONITOR BLOOD COUNT CLOSELY OBSERVE FOR BLEEDING AND HEMOLYSIS NO INDICATIONS FOR TRANSFUSION Hypomagnesium- resolved [id number] respiratory failure. The patient's respiratory status has improved after he was dialyzed yesterday. The patient is breathing comfortably. Endstage renal disease. Continue hemodialysis as per Dr. Monique. Coronary artery disease. Continue aspirin and carvedilol. Cardiomyopathy. Continue aspirin, carvedilol and Eliquis. Dyslipidemia. The patient is already maxed out on Lipitor. Benign prostatic hypertrophy. Continue Flomax. Chronic obstructive pulmonary disease evaluation. Continue DuoNeb, Rocephin. Meanwhile, we will decrease Solu-Medrol to 20 daily. Diabetes. Out of control due to Solu-Medrol and also patient due to agitation and unpredictable p.o. intake was not given long-acting. The patient at home takes Tresiba. I will start him on Lantus. Acute psychosis. Continue p.r.n. Haldol. Chronic lower back pain. Continue [place] as needed. Consultation Date/Type/Reason Admit Date/Time Oct 27, 2018 at 08:14 Initial Consult Date 10/28/18 Type of Consult [facility] Requesting Provider: JAYLEN LUGO MD 24 HR Interval Summary Free Text/Dictation all noted d/w rn Exam/Review of Systems Vital Signs Vitals Vital Signs Date Temp Pulse Resp B/P (MAP) Pulse Ox O2 O2 Flow FiO2 Time Delivery Rate 10/30/18 88 25 132/70 99 Mechanical 23:00 (90) Ventilator 10/30/18 99.4 21:00 10/30/18 30 17:10 Intake and Output 10/29/18 10/29/18 10/30/18 1515:00 23:00 07:00 IntakeIntake Total 370 ml 630 ml 730 ml OutputOutput Total 280 ml 440 ml 455 ml BalanceBalance 90 ml 190 ml 275 ml Exam Constitutional: non-verbal Psych: nl mood/affect Eyes: nl conjunctiva, nl lids, nl sclera ENMT: nl external ears & nose Neck: other Respiratory: diminished breath sounds Cardiovascular: nl pulses, other Gastrointestinal: soft, other Musculoskeletal: muscle weakness, range of motion Extremities: normal pulses Neurological: lethargic Lymph: nontender WENDIE BARILLAS MD Oct 30, 2018 23:50
[2018-10-31] VITALS (36 sets, daily range): BP systolic 109–142; BP diastolic 48–115; PULSE 69–96; RESP 12–29
[2018-10-31] MEDS: LEVALBUTEROL (NEB) 1.25 MG/0.5 ML AMP HHN SCH ×4 (01:18→19:20)
[2018-10-31] MEDS: IPRATROPIUM (NEB) 0.5 MG/2.5 ML AMP HHN SCH ×4 (01:18→19:20)
[2018-10-31] MEDS: LANSOPRAZOLE 30 MG CAP GTB SCH (05:36)
[2018-10-31] MEDS: PHENYTOIN 100 MG INJ IV SCH ×2 (05:37→17:58)
[2018-10-31] MEDS: SOD CHLORIDE 0.9% 1,000 ML IV SCH (05:50)
[2018-10-31] MEDS: BUDESONIDE (NEB) 0.5MG/2ML AMP HHN SCH ×2 (08:10→19:20)
[2018-10-31] MEDS: BALSAM PERU/CASTOR OIL 60 GM TUBE TOP SCH (09:34)
[2018-10-31] MEDS: MUPIROCIN 2% 22 GM OINT TOP SCH ×2 (09:34→22:25)
[2018-10-31] MEDS: ASPIRIN 81 MG TAB PO SCH (09:34)
[2018-10-31] MEDS: ENOXAPARIN 60 MG/0.6 ML SYG SC SCH (09:38)
[2018-10-31] MEDS: CEFEPIME 1GM/50 ML (PMX) 50 ML IVPB SCH (11:02)
--- NOTE | 2018-10-31 11:36 | CONS ---
Date/Time of Note Date/Time of Note DATE: 10/31/18 TIME: 11:33 Assessment/Plan Assessment/Plan Chief Complaint/Hosp Course IMPRESSION: 1. Atrial fibrillation with a rapid ventricular response.-now improved HR s/p IVP digoxin doses x 2 2. Abnormal electrocardiogram with ST depressions during atrial fibrillation with rapid ventricular response. 3. Altered mental state/encephalopathy. 4. Possible seizure-like activity. 5. Congestive heart failure, diastolic, chronic. 6. Hypertension. 7. Urinary tract infection. 8. Renal failure. 9. Leukocytosis. 10. bacteremia 11.fevers Recc: -ICU -Continue IVP BB PRN until able to take PO's. -Continue lovenox/asa -po BB -Continue abx's and f/u cx data -IVP PRN hydralazine -follow MS closely Consultation Date/Type/Reason Admit Date/Time Oct 27, 2018 at 08:14 Initial Consult Date 10/27/18 Type of Consult cardiology Reason for Consultation AF Requesting Provider: JAYLEN LUGO MD Exam/Review of Systems Vital Signs Vitals Vital Signs Date Temp Pulse Resp B/P (MAP) Pulse Ox O2 O2 Flow FiO2 Time Delivery Rate 10/31/18 84 20 100 30 11:30 10/31/18 130/68 Mechanical 09:00 (88) Ventilator 10/31/18 98.8 07:00 Intake and Output 10/30/18 10/30/18 10/31/18 1515:00 23:00 07:00 IntakeIntake Total 920 ml 1010 ml 746 ml OutputOutput Total 240 ml 330 ml 335 ml BalanceBalance 680 ml 680 ml 411 ml Exam Review of Systems: CONSTITUTIONAL: No fevers, chills. PULMONARY: No sob CARDIOVASCULAR: No chest pain/palpitations GASTROINTESTINAL: No nausea/vomiting. GENITOURINARY: No hematuria/dysuria. MUSCULOSKELETAL: No myagias/arthalgias. PSYCHIATRIC: The patient denies depression. NEUROLOGIC: No weakness Constitutional: alert Psych: no complaints Head: normocephalic ENMT: mucosa pink and moist Neck: supple, jvd (9 cm water) Respiratory: diminished breath sounds (at bases/B) Cardiovascular: regular rate and rhythm Gastrointestinal: soft, non-tender Musculoskeletal: muscle weakness (generalized) Extremities: edema (none) Neurological: other (focal defiicts) LUIS FERGUSON Oct 31, 2018 11:36
--- NOTE | 2018-10-31 11:59 | CONS ---
Date/Time of Note Date/Time of Note DATE: 10/31/18 TIME: 11:59 Assessment/Plan Assessment/Plan Chief Complaint/Hosp Course No acute changes overnight patient is noncommunicative in no distress no fevers temperature 98.8 pulse 75 respirations 14 blood pressure 126/53 saturation 99% WBC 6.2 H&H 9.9 33.6 platelets 110 neutrophils 85.4 BUN 38 creatinine 1.22 Microbiology: Blood culture on admission grew coag negative staph species with repeat blood cultures negative, urine culture growing Klebsiella ESBL Antimicrobials: Vancomycin, cefepime Indwelling: Tracheostomy, NG tube, Damon catheter, peripheral IV Physical examination: Chronically ill-appearing elderly woman who is awake nonverbal noncommunicative and in no distress. Head atraumatic normocephalic sclera nonicteric. Neck is supple, tracheostomy present. Chest rise symmetrical, breath sounds diminished bases. Heart: S1-S2. Abdomen soft bowel sounds present. Extremities with trace edema. Assessment: 1. Acute encephalopathy secondary to CVA 2. Urinary tract infection 3. Seizure disorder/status epilepticus 4. Bacteremia, consistent with contaminant 5. MRSA nares colonization 6. Atrial fibrillation 7. Healthcare associated pneumonia Plan: Remains unchanged, hemodynamically stable, on appropriate antibiotics, follow neurology recommendations Consultation Date/Type/Reason Admit Date/Time Oct 27, 2018 at 08:14 Initial Consult Date 10/28/18 Type of Consult ID Requesting Provider: JAYLEN LUGO MD Exam/Review of Systems Vital Signs Vitals Vital Signs Date Temp Pulse Resp B/P (MAP) Pulse Ox O2 O2 Flow FiO2 Time Delivery Rate 10/31/18 84 20 100 30 11:30 10/31/18 130/68 Mechanical 09:00 (88) Ventilator 10/31/18 98.8 07:00 Intake and Output 10/30/18 10/30/18 10/31/18 1515:00 23:00 07:00 IntakeIntake Total 920 ml 1010 ml 746 ml OutputOutput Total 240 ml 330 ml 335 ml BalanceBalance 680 ml 680 ml 411 ml DEBO UMANA NP Oct 31, 2018 11:59
--- NOTE | 2018-10-31 12:33 | CONS ---
Assessment/Plan Assessment/Plan Assessment/Plan 73 yo F with reported Hx of afib, HTN, and other comorbidities...who presents with ams, tachyarrhythmia, and involuntary muscle jerking...for which neurology is consulted. The clinical picture is consistent w/ status epilepticus. The pt was noted to be in afib with RVR on readmission, which raises concern for superimposed acute stroke. Encephalitis is unlikely.. 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 EEG is notable for frequent right hemispheric epileptiform discharges, which is clinically consistent with status epilepticus. Echo is unrevealing. P: Continue ASA/Lipitor for secondary stroke prevention Reload again with Dilantin 600mg iv, then continue maintenance 200 BID. Repeat level in am. Titrate PRN to goal level 10-20 Versed iv for prolonged seizure > 5min or for cluster Other medical management and supportive care per primary Will follow clinically Result Diagram: 10/31/18 0515 10/31/18 0515 Results 24hrs Laboratory Tests Test 10/31/18 05:15 White Blood Count 6.2 # Red Blood Count 3.29 L Hemoglobin 9.9 L Hematocrit 33.6 L Mean Corpuscular Volume 102.1 H Mean Corpuscular Hemoglobin 30.1 Mean Corpuscular Hemoglobin Concent 29.5 L Red Cell Distribution Width 15.9 H Platelet Count 110 L Mean Platelet Volume 10.4 Immature Granulocytes % 0.500 H Neutrophils % 85.4 H Lymphocytes % 9.9 L Monocytes % 3.7 Eosinophils % 0.5 Basophils % 0.0 Nucleated Red Blood Cells % 0.0 Immature Granulocytes # 0.030 Neutrophils # 5.3 Lymphocytes # 0.6 L Monocytes # 0.2 L Eosinophils # 0.0 Basophils # 0.0 Nucleated Red Blood Cells # 0.0 Sodium Level 145 H Potassium Level 3.7 Chloride Level 111 H Carbon Dioxide Level 29 Anion Gap 5 Blood Urea Nitrogen 38 H Creatinine 1.22 H Est Glomerular Filtrat Rate mL/min Glucose Level 104 Calcium Level 7.8 L Phosphorus Level 2.2 L Magnesium Level 1.7 Phenytoin (Dilantin) Level 8.8 L Consultation Date/Type/Reason Admit Date/Time Oct 27, 2018 at 08:14 Type of Consult Neurology Requesting Provider: JAYLEN LUGO MD Date/Time of Note DATE: 10/31/18 TIME: 12:33 24 HR Interval Summary Free Text/Dictation Continues critical care. No acute events or seizure activity reported Subjective hx not possible: pt non-verbal, pt critical status Exam Vital Signs Vitals Vital Signs Date Temp Pulse Resp B/P (MAP) Pulse Ox O2 O2 Flow FiO2 Time Delivery Rate 10/31/18 84 20 100 30 11:30 10/31/18 130/68 Mechanical 09:00 (88) Ventilator 10/31/18 98.8 07:00 Intake and Output 10/30/18 10/30/18 10/31/18 1515:00 23:00 07:00 IntakeIntake Total 920 ml 1010 ml 746 ml OutputOutput Total 240 ml 330 ml 335 ml BalanceBalance 680 ml 680 ml 411 ml Exam PE: Gen Appearance: No Apparent Distress HEENT: Has trach Cardiovascular: SR on telemetry Abdomen: Soft Extremities: Dry NE: The patient was awake though nonverbal. Was blinking spontaneously. The pt did not track or follow commands. Cranial nerve examination was limited by mental status. Pupils were equal, round and briskly reactive to light. There was no afferent pupillary defect. Funduscopic examination was limited. Face was grossly symmetric, w/ a present cough/gag reflex. Tone was increased in her upper extremities . Muscle bulk was slightly diminished. I did see a rhythmic chewing and an arhythmic L foot jerking. The patient spontaneously moved her UE and localized to noxious stimuli; the pt minimally withdrew to noxious stimuli in lower extremities. Coordination and gait testing was limited by mental status. Arm and leg reflexes were symmetric. Doshi's sign was absent. Plantar responses were flexor JOE WYATT NP Oct 31, 2018 12:33 CHRISTIANA LARSON Oct 31, 2018 15:49
--- NOTE | 2018-10-31 13:07 | PN ---
DATE: 10/31/2018 SUBJECTIVE: The patient remains in serious condition. Remains on full ventilatory support. No othe r events noted. OBJECTIVE: VITAL SIGNS: Blood pressure is 109/64, respiration 19, pulse 91, temperature 99.9. HEENT: Head is normocephalic. NECK: Supple. HEART: Regular rate. LUNGS: Show diminished breath sounds at base. ABDOMEN: Soft, nontender to palpation without rebound or guarding. EXTREMITIES: Negative for clubbing, cyanosis, no edema. DERMATOLOGIC: No rashes. MUSCULOSKELETAL: No joint effusion. NEUROLOGIC: No change in exam. MEDICATIONS: Reviewed. LABORATORY DATA: Shows a white count 6.2, hemoglobin 9.9, platelet count is 110, sodium 145, potassi um 3.7, BUN 38, creatinine 1.22. Phosphorus 3.2. The patient's cultures have been reviewed. IMAGING: Chest x-ray was reviewed. ASSESSMENT AND PLAN: 1. Nonoliguric acute kidney injury on top of chronic kidney disease with previous baseline creatinin e of 1.5 mg/dL. Etiology of acute kidney injury is secondary to hemodynamics. Renal function is cur rently stable at baseline. Continue current treatment plan, supportive care, renally dose all meds. 2. Hypernatremia. The patient has a free water deficit approximately 2 liters. We will start the p atient on free water flushes, monitor sodium levels closely. 3. Acute diastolic heart failure. The patient appears to be euvolemic. Discontinue IV fluids. 4. Anemia. Continue to monitor hemoglobin and hematocrit levels. 5. Mineral bone disorder, monitor calcium and phosphorus levels. 6. Atrial fibrillation, rate controlled. Continue medical management. 7. Ventilator-dependent respiratory failure. Vent settings and arterial blood gas was reviewed. Co ntinue to monitor. 8. Dysphagia. Continue tube feedings. 9. Seizure disorder. Continue antiepileptic medications. Follow up with neurology. 10. Encephalopathy. Continue to monitor. 11. Sepsis secondary to bacteremia. Continue current antibiotic regimen. 12. Hyperphosphatemia. We will replete with potassium phosphate. Dictated By: RAJINDER ATWOOD DO NR/NTS Conf#: [id number] DID#: [id number] CC: ROSALVA SANCHES MD;*EndCC*
[2018-10-31] MEDS: METOPROLOL 25 MG TAB PO SCH ×2 (13:32→22:24)
[2018-10-31] MEDS ORDERED: PHENYTOIN 100 MG INJ IV ONE (15:00)
--- NOTE | 2018-10-31 15:29 | PN ---
DATE: 10/31/2018 SUBJECTIVE: The patient is minimally awake showing minimal eye opening, but she does not follow beyo nd this. Her family is at the bedside, even though they cannot make her show any response. She is o n continuous ventilator support through tracheostomy. Her breathing appears comfortable. She opened her eyes during the examination. PHYSICAL EXAMINATION: VITAL SIGNS: Stable. Temperature 99.1, blood pressure 109/64, pulse rate 91, respirations 19, pulse oximetry 99% saturation. NECK: Tracheal secretions are clear per the respiratory therapist. No bleeding seen. HEART: Irregular rhythm showing atrial fibrillation. CHEST: Breath sounds are heard bilaterally, diminished in both the lower lung corona with a few rale s and rhonchi. ABDOMEN: Soft. No distention seen. Tolerating NG tube feedings. Bowel sounds are present. EXTREMITIES: Show no edema. SCDs have been applied over both the legs. LABORATORY TESTS: From today shows sodium 145, potassium 3.7, bicarbonate 21, BUN 38, creatinine 1.2 2, glucose 104. BUN and creatinine have been progressively improving. CBC shows a WBC 6200, hemoglo bin 9.9, hematocrit 33.6, platelets 110,000 showing a further decrease from yesterday's 132,000. The urine culture showed growth of Klebsiella pneumoniae which is sensitive to Maxipime which the patien t is getting now. The blood cultures show no growth. IMPRESSION: 1. Chronic ventilator dependent respiratory failure. 2. Multiple acute cerebral infarcts. 3. Acute encephalopathy. 4. New onset seizures. 5. Advanced chronic obstructive pulmonary disease. 6. Congestive heart failure. 7. Chronic atrial fibrillation. 8. History of pulmonary fibrosis. 9. Urosepsis. 10. Chronic kidney disease, improving. RECOMMENDATIONS: 1. Continue long-term ventilator support. 2. Continue antibiotics per infectious disease hospice care consultant. 3. Continue bronchodilator inhalation therapy to maintain pulmonary hygiene and clear the secretions . 4. Continue inhaled steroids. 5. Continue anticonvulsant medications. 6. Continue NG tube feedings. If the patient cannot take oral feedings for swallow evaluation, she may need permanent gastrostomy tube placement for long-term nutritional maintenance. 7. Continue GI prophylaxis. 8. Continue deep venous thrombosis prophylaxis. 9. I discussed with the patient's daughter and the grandson outside the patient's room with the kevyn mccauley nurse present about patient's multiple medical problems and prognosis. In view of the multipl e cerebral infarcts and altered mental status, the prognosis is rather poor. However because of all these additional problems, the patient would be difficult to come off the ventilator. Long-term vent ilator support will be necessary. Gastrostomy tube may also be as needed for long-term feeding. I w ill also advise the patient's family members to pass on this information to other family members and also discussed with other physicians involved in the patient's care to get a comprehensive picture of the patient's status and multiple medical problems. Dictated By: KORTNEY GAMEZ MD SR/NTS Conf#: [id number] DID#: [id number] CC: ROSALVA SANCHES MD; MENDEL FIELDS MD;*End*
--- NOTE | 2018-10-31 16:53 | PN ---
Date/Time of Note Date/Time of Note DATE: 10/31/18 TIME: 16:45 Assessment/Plan VTE Prophylaxis Risk score (from Ns)>0 risk: 8 [place] applied [place] [facility] Yes SCD contraindicated: other Pharmacological prophylaxis: other Lines/Catheters IV Catheter Type (from [facility]): Peripheral IV Urinary Cath still in place: Yes Reason Cath still needed: urinary retention Assessment/Plan Assessment/Plan 1. Acute encephalopathy. - neurology follows; EEG done 2. Fever and leukocytosis with positive blood culture. Continue IV vancomycin and cefepime. Further recommendation will depend on patient's hospital course and recommendation from Dr. Melendez. 3. Chronic obstructive pulmonary disease. Continue breathing treatment. 4. Paroxysmal atrial fibrillation. The patient is currently in atrial fibrillation. The patient is on metoprolol on p.r.n. basis. The patient is unable to take anything p.o. since she is encephalopathic. The patient does not have a G-tube or NG tube. - CVA prophylaxis- Lovenox based on creatinine - GI prophylaxis, continue Protonix. Daughter at bed side- all Qs answered. Total critical care time spent is 35 mins. Plan of care discussed with Dr Camilo/ nursing staff in ICU. Subjective 24 Hr Interval Summary Free Text/Dictation stable- ok to step down to tele floor Subjective hx not possible: pt non-verbal Constitutional: requiring O2 Exam/Review of Systems Vital Signs Vitals Vital Signs Date Temp Pulse Resp B/P (MAP) Pulse Ox O2 O2 Flow FiO2 Time Delivery Rate 10/31/18 74 16:00 10/31/18 23 129/56 99 Mechanical 14:00 (80) Ventilator 10/31/18 98.2 12:00 10/31/18 30 11:30 Intake and Output 10/30/18 10/30/18 10/31/18 1515:00 23:00 07:00 IntakeIntake Total 920 ml 1010 ml 836 ml OutputOutput Total 240 ml 330 ml 335 ml BalanceBalance 680 ml 680 ml 501 ml Exam Constitutional: non-verbal, frail Psych: nl mood/affect Head: atraumatic Eyes: nl sclera ENMT: nl external ears & nose Neck: other (trach intact) Respiratory: diminished breath sounds Cardiovascular: nl pulses, other (sis2) Gastrointestinal: soft, non-tender, other (gt intact) Musculoskeletal: muscle weakness, range of motion Extremities: normal pulses Neurological: unresponsive FRANCESCO SIU Oct 31, 2018 16:53
[2018-10-31] MEDS ORDERED: PHENYTOIN 300 MG in SOD CHLORIDE 0.9% 50 ML IV ONE (17:00)
[2018-10-31] MEDS: MIDAZOLAM 1 MG/ML 2 ML INJ IV PRN (22:28)
--- NOTE | 2018-10-31 23:24 | CONS ---
Date/Time of Note Date/Time of Note DATE: 10/31/18 TIME: 23:24 Assessment/Plan Assessment/Plan Chief Complaint/Hosp Course ANEMIA WITH COMPONENT ACD CONT TO MONITOR BLOOD COUNT CLOSELY OBSERVE FOR BLEEDING AND HEMOLYSIS NO INDICATIONS FOR TRANSFUSION Hypomagnesium- resolved Mceus-cv-wlivvhi respiratory failure. The patient's respiratory status has improved after he was dialyzed yesterday. The patient is breathing comfortably. Endstage renal disease. Continue hemodialysis as per Dr. Monique. Coronary artery disease. Continue aspirin and carvedilol. Cardiomyopathy. Continue aspirin, carvedilol and Eliquis. Dyslipidemia. The patient is already maxed out on Lipitor. Benign prostatic hypertrophy. Continue Flomax. Chronic obstructive pulmonary disease evaluation. Continue DuoNeb, Rocephin. Meanwhile, we will decrease Solu-Medrol to 20 daily. Diabetes. Out of control due to Solu-Medrol and also patient due to agitation and unpredictable p.o. intake was not given long-acting. The patient at home takes Tresiba. I will start him on Lantus. Acute psychosis. Continue p.r.n. Haldol. Chronic lower back pain. Continue [place] as needed. Consultation Date/Type/Reason Admit Date/Time Oct 27, 2018 at 08:14 Initial Consult Date 10/28/18 Type of Consult [facility] Requesting Provider: JAYLEN LUGO MD 24 HR Interval Summary Free Text/Dictation all noted nad Exam/Review of Systems Vital Signs Vitals Vital Signs Date Temp Pulse Resp B/P (MAP) Pulse Ox O2 O2 Flow FiO2 Time Delivery Rate 10/31/18 79 22 129/69 99 Mechanical 21:00 (89) Ventilator 10/31/18 98.4 20:00 10/31/18 30 18:04 Intake and Output 10/30/18 10/30/18 10/31/18 1414:59 22:59 06:59 IntakeIntake Total 920 ml 1010 ml 836 ml OutputOutput Total 230 ml 315 ml 380 ml BalanceBalance 690 ml 695 ml 456 ml Exam Constitutional: non-verbal Psych: nl mood/affect Eyes: nl conjunctiva, nl lids, nl sclera ENMT: nl external ears & nose Neck: other Respiratory: diminished breath sounds Cardiovascular: nl pulses, other Gastrointestinal: soft, other Musculoskeletal: muscle weakness, range of motion Extremities: normal pulses Neurological: lethargic Lymph: nontender WENDIE BARILLAS MD Oct 31, 2018 23:24
[2018-11-01] VITALS (28 sets, daily range): BP systolic 114–154; BP diastolic 58–92; PULSE 71–89; RESP 16–32
[2018-11-01] MEDS: IPRATROPIUM (NEB) 0.5 MG/2.5 ML AMP HHN SCH ×4 (01:50→20:22)
[2018-11-01] MEDS: LEVALBUTEROL (NEB) 1.25 MG/0.5 ML AMP HHN SCH ×4 (01:50→20:22)
[2018-11-01] MEDS: PHENYTOIN 100 MG INJ IV SCH ×2 (05:34→21:30)
[2018-11-01] MEDS: LANSOPRAZOLE 30 MG CAP GTB SCH (05:34)
[2018-11-01] MEDS ORDERED: MAGNESIUM SULFATE 2 GM/50 ML 50 ML IVPB ONE (08:30)
[2018-11-01] MEDS: BUDESONIDE (NEB) 0.5MG/2ML AMP HHN SCH ×2 (08:34→20:22)
[2018-11-01] MEDS: NEUTRA-PHOS 250 MG PACKET PO SCH ×2 (08:43→21:31)
[2018-11-01] MEDS: METOPROLOL 25 MG TAB PO SCH ×2 (08:43→21:31)
[2018-11-01] MEDS: ASPIRIN 81 MG TAB PO SCH (08:43)
[2018-11-01] MEDS: ENOXAPARIN 60 MG/0.6 ML SYG SC SCH (08:51)
[2018-11-01] MEDS: BALSAM PERU/CASTOR OIL 60 GM TUBE TOP SCH (09:24)
[2018-11-01] MEDS: MUPIROCIN 2% 22 GM OINT TOP SCH ×2 (09:24→21:31)
[2018-11-01] MEDS: CEFEPIME 1GM/50 ML (PMX) 50 ML IVPB SCH (09:24)
--- NOTE | 2018-11-01 12:54 | CONS ---
Date/Time of Note Date/Time of Note DATE: 11/01/18 TIME: 12:52 Assessment/Plan Assessment/Plan Chief Complaint/Hosp Course IMPRESSION: 1. Atrial fibrillation with a rapid ventricular response.-now improved HR s/p IVP digoxin doses x [address] with [address] depressions during atrial fibrillation with rapid ventricular response. 3. Altered mental state/encephalopathy. 4. Possible seizure-like activity. 5. Congestive heart failure, diastolic, chronic. 6. Hypertension. 7. Urinary tract infection. 8. Renal failure. 9. Leukocytosis. 10. bacteremia 11.fevers Recc: -Tele -Continue IVP BB PRN -continue PO BB -Resume eliquis and d/c lovenox and will hold asa to decrease bleeding risk at this time given decreasing platelets -Continue abx's and f/u cx data -IVP PRN hydralazine -Continue bronchodilators -follow MS closely Consultation Date/Type/Reason Admit Date/Time Oct 27, 2018 at 08:14 Initial Consult Date 10/27/18 Type of Consult cardiology Reason for Consultation AF Requesting Provider: JAYLEN LUGO MD Exam/Review of Systems Vital Signs Vitals Vital Signs Date Temp Pulse Resp B/P (MAP) Pulse Ox O2 O2 Flow FiO2 Time Delivery Rate 11/01/18 98.9 76 18 129/58 100 Mechanical 11:55 (81) Ventilator 11/01/18 30 11:20 Intake and Output 10/31/18 10/31/18 11/01/18 1515:00 23:00 07:00 IntakeIntake Total 950 ml 856 ml 750 ml OutputOutput Total 600 ml 440 ml 330 ml BalanceBalance 350 ml 416 ml 420 ml Exam Review of Systems: CONSTITUTIONAL: No fevers, chills. PULMONARY: No sob CARDIOVASCULAR: No chest pain/palpitations GASTROINTESTINAL: No nausea/vomiting. GENITOURINARY: No hematuria/dysuria. MUSCULOSKELETAL: No myagias/arthalgias. PSYCHIATRIC: The patient denies depression. NEUROLOGIC: No weakness Constitutional: alert Psych: no complaints Head: normocephalic ENMT: mucosa pink and moist Neck: supple, jvd (9 cm water), other (trached) Respiratory: diminished breath sounds Cardiovascular: regular rate and rhythm Gastrointestinal: soft, non-tender Musculoskeletal: muscle tone (normal) Extremities: edema (none) Neurological: other (No focal deficits) LUIS FERGUSON Nov 01, 2018 12:54
--- NOTE | 2018-11-01 14:46 | CONS ---
Assessment/Plan Assessment/Plan Assessment/Plan 73 yo F with reported Hx of afib, HTN, and other comorbidities...who presents with ams, tachyarrhythmia, and involuntary muscle jerking...for which neurology is consulted. The clinical picture is consistent w/ status epilepticus. The pt was noted to be in afib with RVR on readmission, which raises concern for superimposed acute stroke. Encephalitis is unlikely.. 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 EEG is notable for frequent right hemispheric epileptiform discharges, which is clinically consistent with status epilepticus. Echo is unrevealing. P: Reload again with Dilantin 500mg iv, then increase maintenance dose to 200/100/200mg. Titrate PRN to goal level 10-20 Change Versed to Ativan iv for prolonged seizure > 5min or for cluster Continue ASA/Lipitor for secondary stroke prevention Other medical management and supportive care per primary Will follow clinically Result Diagram: 11/01/18 0448 11/01/18 0448 Results 24hrs Laboratory Tests Test 11/01/18 04:48 White Blood Count 6.5 Red Blood Count 3.36 L Hemoglobin 10.3 L Hematocrit 34.5 L Mean Corpuscular Volume 102.7 H Mean Corpuscular Hemoglobin 30.7 Mean Corpuscular Hemoglobin Concent 29.9 L Red Cell Distribution Width 16.3 H Platelet Count 93 L Mean Platelet Volume 10.7 H Immature Granulocytes % 0.500 H Neutrophils % 85.2 H Lymphocytes % 9.8 L Monocytes % 3.1 Eosinophils % 1.4 Basophils % 0.0 Nucleated Red Blood Cells % 0.0 Immature Granulocytes # 0.030 Neutrophils # 5.6 Lymphocytes # 0.6 L Monocytes # 0.2 L Eosinophils # 0.1 Basophils # 0.0 Nucleated Red Blood Cells # 0.0 Sodium Level 146 H Potassium Level 3.6 Chloride Level 111 H Carbon Dioxide Level 28 Anion Gap 7 Blood Urea Nitrogen 36 H Creatinine 1.12 H Est Glomerular Filtrat Rate mL/min Glucose Level 100 Calcium Level 7.7 L Phosphorus Level 2.0 L Magnesium Level 1.6 L Phenytoin (Dilantin) Level 8.9 L Consultation Date/Type/Reason Admit Date/Time Oct 27, 2018 at 08:14 Type of Consult Neurology Requesting Provider: JAYLEN LUGO MD Date/Time of Note DATE: 11/01/18 TIME: 14:46 24 HR Interval Summary Free Text/Dictation Downgraded to telemetry overnight. No acute events reported. Subjective hx not possible: pt non-verbal Exam Vital Signs Vitals Vital Signs Date Temp Pulse Resp B/P (MAP) Pulse Ox O2 O2 Flow FiO2 Time Delivery Rate 11/01/18 85 12:00 11/01/18 98.9 18 129/58 100 Mechanical 11:55 (81) Ventilator 11/01/18 30 11:20 Intake and Output 10/31/18 10/31/18 11/01/18 1515:00 23:00 07:00 IntakeIntake Total 950 ml 856 ml 750 ml OutputOutput Total 600 ml 440 ml 330 ml BalanceBalance 350 ml 416 ml 420 ml Exam PE: Gen Appearance: No Apparent Distress HEENT: Has trach Cardiovascular: SR on telemetry Abdomen: Soft Extremities: Dry NE: The patient was awake though nonverbal. Was blinking spontaneously. The pt did not track or follow commands. Cranial nerve examination was limited by mental status. Pupils were equal, round and briskly reactive to light. There was no afferent pupillary defect. Funduscopic examination was limited. Face was grossly symmetric, w/ a present cough/gag reflex. Tone was increased in her upper extremities . Muscle bulk was slightly d iminished. I did see a continuous and rhythmic chewing and an arhythmic L foot jerking. The patient withdrew her extremities to noxious stimuli. Coordination and gait testing was limited by mental status. Arm and leg reflexes were symmetric. Doshi's sign was absent. Plantar responses were flexor. JOE WYATT NP Nov 01, 2018 14:46 CHRISTIANA LARSON Nov 02, 2018 06:33
--- NOTE | 2018-11-01 14:53 | PN ---
DATE: 11/01/2018 SUBJECTIVE: The patient is transferred from intensive care unit to telemetry. No other acute events noted overnight. OBJECTIVE: VITAL SIGNS: Blood pressure is 142/76, respirations 20, pulse 88, temperature 99.4. HEENT: Head is normocephalic. NECK: Supple. HEART: Regular rate. LUNGS: Show diminished breath sounds at the base. ABDOMEN: Soft, nontender to palpation, no rebound or guarding. EXTREMITIES: Negative for clubbing or cyanosis, no edema. DERMATOLOGIC: No rashes. MUSCULOSKELETAL: No joint effusion. NEUROLOGIC: No change in exam. MEDICATIONS: The patient's medications have been reviewed. LABORATORY DATA: Shows a sodium 146, potassium 3.6, chloride 111, BUN 36, creatinine 1.12, calcium 7 .7, phosphorus 2.0, magnesium 1.6. White count 6.5, platelet count 93. ASSESSMENT AND PLAN: 1. Nonoliguric acute kidney injury on top of chronic kidney disease with previous baseline creatinin e of 1.5 mg/dL. Etiology of acute kidney injury is secondary to hemodynamics. Renal function is imp roved. Continue current treatment plan, supportive care, renally dose all meds. 2. Hypernatremia. The patient has free water deficit approximately 2 L. We will increase free wate r flushes to 300 mL q.4 hours. 3. Acute diastolic heart failure. Continue medical management. 4. Anemia. Monitor hemoglobin and hematocrit levels. 5. Mineral bone disorder. The patient is hypophosphatemic. We will replete with potassium phosphat e. 6. Hypomagnesemia. We will replete with magnesium sulfate. 7. Atrial fibrillation, rate controlled. Continue medical management. 8. Ventilator-dependent respiratory failure. Vent settings and ABG reviewed. Continue to monitor. 9. Dysphagia. Continue tube feeding. 10. Seizure disorder. Follow up with neurology. 11. Encephalopathy. Continue to monitor. 12. Sepsis secondary to bacteremia. Continue antibiotic regimen. Dictated By: RAJINDER WATTS/NTS Conf#: [id number] DID#: [id number] CC: ROSALVA SANCHES MD;*EndCC*
[2018-11-01] MEDS ORDERED: PHENYTOIN 750 MG in SOD CHLORIDE 0.9% 100 ML IV ONE (15:00)
[2018-11-01] MEDS ORDERED: LORAZEPAM 4 MG/ML VIAL IV PRN (15:00)
--- NOTE | 2018-11-01 15:45 | PN ---
Date/Time of Note Date/Time of Note DATE: 11/01/18 TIME: 15:43 Assessment/Plan VTE Prophylaxis Risk score (from [facility])>0 risk: 6 SCD applied (from [facility]): Yes SCD contraindicated: other Pharmacological prophylaxis: other Pharm contraindication: other Lines/Catheters [facility] C[facility] Type ([facility]): Peripheral IV Urinary Cath still in place: Yes Reason Cath still needed: urinary retention Assessment/Plan Assessment/Plan -hYPOMAGNESIUM-replaced 1. Acute encephalopathy. - neurology follows; EEG done 2. Fever and leukocytosis with positive blood culture. Continue IV vancomycin and cefepime. Further recommendation will depend on patient's hospital course and recommendation from Dr. Melendez. 3. Chronic obstructive pulmonary disease. Continue breathing treatment. 4. Paroxysmal atrial fibrillation. The patient is currently in atrial fibrillation. The patient is on metoprolol on p.r.n. basis. The patient is unable to take anything p.o. since she is encephalopathic. The patient does not have a G-tube or NG tube. - CVA prophylaxis- Lovenox based on creatinine - GI prophylaxis, continue Protonix. Plan of care discussed with Dr Camilo/ nursing staff in ICU. Exam/Review of Systems Vital Signs Vitals Vital Signs Date Temp Pulse Resp B/P (MAP) Pulse Ox O2 O2 Flow FiO2 Time Delivery Rate 11/01/18 98.8 89 22 122/64 99 Mechanical 15:22 (83) Ventilator 11/01/18 30 15:21 Intake and Output 10/31/18 10/31/18 11/01/18 1414:59 22:59 06:59 IntakeIntake Total 990 ml 856 ml 800 ml OutputOutput Total 500 ml 490 ml 380 ml BalanceBalance 490 ml 366 ml 420 ml FRANCESCO SIU Nov 01, 2018 15:45
--- NOTE | 2018-11-01 16:36 | PN ---
DATE: 11/01/2018 SUBJECTIVE: The patient's general condition is same. She shows minimal eye opening, but she does no t follow when spoken to. She is on the ventilator support through tracheostomy. PHYSICAL EXAMINATION: VITAL SIGNS: Stable. Temperature 99.4, blood pressure 140/76, pulse rate 88, respirations 20, pulse oximetry 100% saturation. She is on 30% inhaled oxygen concentration. NECK: Tracheal secretions are mostly clear. No bleeding seen. HEART: Atrial fibrillation with controlled rate. CHEST: Breath sounds are diminished in both the lower lung corona with a few intermittent rales and rhonchi. ABDOMEN: Soft, somewhat obese. No localized tenderness. She is tolerating NG tube feedings well. Bowel sounds are normally heard. EXTREMITIES: Show no edema. SCDs have been applied to both the legs. LABORATORY DATA: From today shows normal WBC of 6500, hemoglobin 10.3, hematocrit 34.5, platelets ar e decreased to 93,000. Her platelet count has been progressively decreasing. Chemistry panel shows sodium 146, potassium 3.6, bicarbonate of 28, BUN 36, creatinine 1.12. BUN and creatinine have also been gradually improving. Glucose 100. Sputum culture from the tracheal aspirate reported to show gram-negative rods. Identification and se nsitivity are awaited. The patient is on: 1. Cefepime. 2. Vancomycin. IMPRESSION: 1. Chronic ventilator dependent respiratory failure. 2. Multiple acute cerebral infarcts. 3. Acute encephalopathy. 4. New onset seizures. 5. Advanced chronic obstructive pulmonary disease. 6. Congestive heart failure - diastolic. 7. Chronic atrial fibrillation. 8. History of pulmonary fibrosis. 9. Urosepsis. 10. Chronic kidney disease, gradually improving. 11. Chronic anemia with thrombocytopenia. PLAN: 1. Continue long-term ventilator support. 2. Continue antibiotics per infectious disease alliances consultant. 3. Continue bronchodilator inhalation therapy to maintain pulmonary hygiene and clear the secretions . 4. Continue inhaled steroids. 5. Continue anticonvulsant medications. 6. Continue G-tube feedings. 7. Continue GI prophylaxis. 8. Continue anticoagulant prophylaxis. Preferably, the patient should be on anticoagulants, which c ould be given through NG tube. Avoid Lovenox especially in view of thrombocytopenia. 9. Continue supportive therapy. Dictated By: KORTNEY GAMEZ MD SR/MONROE Conf#: [id number] [facility]#: [id number] CC: ROSALVA SANCHES MD; MENDEL FIELDS MD;*[facility]*
[2018-11-01] MEDS: VANCOMYCIN 1 GM 250 ML IVPB SCH (16:40)
--- NOTE | 2018-11-01 17:22 | CONS ---
Date/Time of Note Date/Time of Note DATE: 11/01/18 TIME: 17:21 Assessment/Plan Assessment/Plan Chief Complaint/Hosp Course Patient was transferred to telemetry, she looks comfortable, afebrile WBC 6.5 H&H 10.3 and 34.5 platelets 93 neutrophils 85.2 BUN 36 creatinine 1.12 Microbiology: Blood culture on admission grew coag negative staph species with repeat blood cultures negative, urine culture growing Klebsiella ESBL Antimicrobials: Vancomycin, cefepime Indwelling: Tracheostomy, NG tube, Damon catheter, peripheral IV Physical examination: Chronically ill-appearing elderly woman who is awake nonverbal noncommunicative and in no distress. Head atraumatic normocephalic sclera nonicteric. Neck is supple, tracheostomy present. Chest rise symmetrical, breath sounds diminished bases. Heart: S1-S2. Abdomen soft bowel sounds present. Extremities with trace edema. Assessment: 1. Acute encephalopathy secondary to CVA 2. Urinary tract infection 3. Seizure disorder/status epilepticus 4. Bacteremia, consistent with contaminant 5. MRSA nares colonization 6. Atrial fibrillation 7. Healthcare associated pneumonia Plan: Remains unchanged, hemodynamically stable, continue antibiotics, follow neurology recommendations Consultation Date/Type/Reason Admit Date/Time Oct 27, 2018 at 08:14 Initial Consult Date 10/28/18 Type of Consult ID Requesting Provider: JAYLEN LUGO MD Exam/Review of Systems Vital Signs Vitals Vital Signs Date Temp Pulse Resp B/P (MAP) Pulse Ox O2 O2 Flow FiO2 Time Delivery Rate 11/01/18 87 16 98 30 17:20 11/01/18 98.8 122/64 Mechanical 15:22 (83) Ventilator Intake and Output 10/31/18 10/31/18 11/01/18 1515:00 23:00 07:00 IntakeIntake Total 950 ml 856 ml 750 ml OutputOutput Total 600 ml 440 ml 330 ml BalanceBalance 350 ml 416 ml 420 ml DEBO UMANA NP Nov 01, 2018 17:22
--- NOTE | 2018-11-01 18:11 | CONS ---
Date/Time of Note Date/Time of Note DATE: 11/01/18 TIME: 18:06 Assessment/Plan Assessment/Plan Chief Complaint/Hosp Course ANEMIA WITH COMPONENT ACD CONT TO MONITOR BLOOD COUNT CLOSELY OBSERVE FOR BLEEDING AND HEMOLYSIS NO INDICATIONS FOR TRANSFUSION Hypomagnesium- resolved Fxtsi-fw-krukddc respiratory failure. The patient's respiratory status has improved after he was dialyzed yesterday. The patient is breathing comfortably. Endstage renal disease. Continue hemodialysis as per Dr. Monique. Coronary artery disease. Continue aspirin and carvedilol. Cardiomyopathy. Continue aspirin, carvedilol and Eliquis. Dyslipidemia. The patient is already maxed out on Lipitor. Benign prostatic hypertrophy. Continue Flomax. Chronic obstructive pulmonary disease evaluation. Continue DuoNeb, Rocephin. Meanwhile, we will decrease Solu-Medrol to 20 daily. Diabetes. Out of control due to Solu-Medrol and also patient due to agitation and unpredictable p.o. intake was not given long-acting. The patient at home takes Tresiba. I will start him on Lantus. Acute psychosis. Continue p.r.n. Haldol. Chronic lower back pain. Continue [place] as needed. Consultation Date/Type/Reason Admit Date/Time Oct 27, 2018 at 08:14 Initial Consult Date 10/28/18 Type of Consult [facility] Requesting Provider: JAYLEN LUGO MD 24 HR Interval Summary Free Text/Dictation ALL NOTED NAD NO BLEEDING Exam/Review of Systems Vital Signs Vitals Vital Signs Date Temp Pulse Resp B/P (MAP) Pulse Ox O2 O2 Flow FiO2 Time Delivery Rate 11/01/18 87 16 98 30 17:20 11/01/18 98.8 122/64 Mechanical 15:22 (83) Ventilator Intake and Output 10/31/18 10/31/18 11/01/18 1515:00 23:00 07:00 IntakeIntake Total 950 ml 856 ml 750 ml OutputOutput Total 600 ml 440 ml 330 ml BalanceBalance 350 ml 416 ml 420 ml Exam Constitutional: non-verbal Psych: nl mood/affect Eyes: nl conjunctiva, nl lids, nl sclera ENMT: nl external ears & nose Neck: other Respiratory: diminished breath sounds Cardiovascular: nl pulses, other Gastrointestinal: soft, other Musculoskeletal: muscle weakness, range of motion Extremities: normal pulses Neurological: lethargic Lymph: nontender WENDIE BARILLAS MD Nov 01, 2018 18:11
[2018-11-02] VITALS (23 sets, daily range): BP systolic 122–137; BP diastolic 64–87; PULSE 66–92; RESP 18–31
[2018-11-02] MEDS: IPRATROPIUM (NEB) 0.5 MG/2.5 ML AMP HHN SCH ×4 (01:17→19:34)
[2018-11-02] MEDS: LEVALBUTEROL (NEB) 1.25 MG/0.5 ML AMP HHN SCH ×4 (01:18→19:34)
[2018-11-02] MEDS: LANSOPRAZOLE 30 MG CAP GTB SCH (05:34)
[2018-11-02] MEDS: BUDESONIDE (NEB) 0.5MG/2ML AMP HHN SCH ×2 (08:21→19:34)
[2018-11-02] MEDS: NEUTRA-PHOS 250 MG PACKET PO SCH ×2 (09:17→23:39)
[2018-11-02] MEDS: CEFEPIME 1GM/50 ML (PMX) 50 ML IVPB SCH (09:17)
[2018-11-02] MEDS: METOPROLOL 25 MG TAB PO SCH ×2 (09:18→23:40)
[2018-11-02] MEDS: APIXABAN 5 MG TABLET PO SCH ×2 (09:18→23:40)
[2018-11-02] MEDS: PHENYTOIN 100 MG INJ IV SCH ×2 (09:18→23:41)
[2018-11-02] MEDS: MUPIROCIN 2% 22 GM OINT TOP SCH ×2 (09:19→23:41)
[2018-11-02] MEDS: BALSAM PERU/CASTOR OIL 60 GM TUBE TOP SCH (09:19)
--- NOTE | 2018-11-02 09:33 | CONS ---
Date/Time of Note Date/Time of Note DATE: 11/02/18 TIME: 09:32 Assessment/Plan Assessment/Plan Chief Complaint/Hosp Course ANEMIA WITH COMPONENT ACD CONT TO MONITOR BLOOD COUNT CLOSELY OBSERVE FOR BLEEDING AND HEMOLYSIS NO INDICATIONS FOR TRANSFUSION Hypomagnesium- resolved Orqhq-xf-fzqsnev respiratory failure. The patient's respiratory status has improved after he was dialyzed yesterday. The patient is breathing comfortably. Endstage renal disease. Continue hemodialysis as per Dr. Monique. Coronary artery disease. Continue aspirin and carvedilol. Cardiomyopathy. Continue aspirin, carvedilol and Eliquis. Dyslipidemia. The patient is already maxed out on Lipitor. Benign prostatic hypertrophy. Continue Flomax. Chronic obstructive pulmonary disease evaluation. Continue DuoNeb, Rocephin. Meanwhile, we will decrease Solu-Medrol to 20 daily. Diabetes. Out of control due to Solu-Medrol and also patient due to agitation and unpredictable p.o. intake was not given long-acting. The patient at home takes Tresiba. I will start him on Lantus. Acute psychosis. Continue p.r.n. Haldol. Chronic lower back pain. Continue [place] as needed. Consultation Date/Type/Reason Admit Date/Time Oct 27, 2018 at 08:14 Initial Consult Date 10/28/18 Type of Consult [facility] Requesting Provider: JAYLEN LUGO MD 24 HR Interval Summary Free Text/Dictation ALL NOTED NAD NO BLEEDING Exam/Review of Systems Vital Signs Vitals Vital Signs Date Temp Pulse Resp B/P (MAP) Pulse Ox O2 O2 Flow FiO2 Time Delivery Rate 11/02/18 79 26 97 30 08:10 11/02/18 98.4 129/81 Mechanical 07:30 (97) Ventilator Intake and Output 11/01/18 11/01/18 11/02/18 1515:00 23:00 07:00 IntakeIntake Total 50 ml 165 ml 1200 ml OutputOutput Total 450 ml 750 ml BalanceBalance 50 ml -285 ml 450 ml Exam Constitutional: non-verbal Psych: nl mood/affect Eyes: nl conjunctiva, nl lids, nl sclera ENMT: nl external ears & nose Neck: other Respiratory: diminished breath sounds Cardiovascular: nl pulses, other Gastrointestinal: soft, other Musculoskeletal: muscle weakness, range of motion Extremities: normal pulses Neurological: lethargic Lymph: nontender KLEYNBERG,VERA M MD Nov 02, 2018 09:33
--- NOTE | 2018-11-02 11:09 | PN ---
Date/Time of Note Date/Time of Note DATE: 11/02/18 TIME: 11:09 Assessment/Plan VTE Prophylaxis Risk score (from Ns)>0 risk: 7 SCD applied (from Ns): Yes Pharmacological prophylaxis: LMWH Lines/Catheters [facility]from [facility] [place] Urinary Cath still in place: Yes Reason Cath still needed: skin wounds contaminated by urine Assessment/Plan Hospital Course 1. Acute encephalopathy. - neurology follows; EEG done 2. Fever and leukocytosis with positive blood culture. Continue IV vancomycin and cefepime. Further recommendation will depend on patient's hospital course and recommendation from Dr. Melendez. 3. Chronic obstructive pulmonary disease. Continue breathing treatment. 4. Paroxysmal atrial fibrillation. The patient is currently in atrial fibrillation. The patient is on metoprolol on p.r.n. basis. The patient is unable to take anything p.o. since she is encephalopathic. The patient does not have a G-tube or NG tube. - CVA prophylaxis- Lovenox based on creatinine - GI prophylaxis, continue Protonix. Subjective 24 Hr Interval Summary Free Text/Dictation Patient has some reaction to voice but not verbally communicative Exam/Review of Systems Vital Signs Vitals Vital Signs Date Temp Pulse Resp B/P (MAP) Pulse Ox O2 O2 Flow FiO2 Time Delivery Rate 11/02/18 71 24 98 30 10:28 11/02/18 98.4 129/81 Mechanical 07:30 (97) Ventilator Intake and Output 11/01/18 11/01/18 11/02/18 1515:00 23:00 07:00 IntakeIntake Total 50 ml 165 ml 1200 ml OutputOutput Total 450 ml 750 ml BalanceBalance 50 ml -285 ml 450 ml Exam Constitutional: well developed Head: normocephalic, atraumatic Neck: supple Respiratory: diminished breath sounds Cardiovascular: regular rate and rhythm Gastrointestinal: soft, non-tender Extremities: normal pulses ROSALVA SANCHES Nov 02, 2018 11:09
--- NOTE | 2018-11-02 12:58 | PN ---
DATE: 11/02/2018 SUBJECTIVE: The patient is stable. No events overnight. No fever, chills, nausea, vomiting. OBJECTIVE: VITAL SIGNS: Blood pressure is 129/81, respiration 18, pulse 77, temperature 98.4. HEENT: Head is normocephalic. NECK: Supple. HEART: Regular rate. LUNGS: Show diminished breath sounds at base. ABDOMEN: Soft, nontender to palpation without rebound or guarding. EXTREMITIES: Negative for clubbing, cyanosis. No edema. DERMATOLOGIC: No rashes. MUSCULOSKELETAL: No joint effusion. NEUROLOGIC: No change in exam. MEDICATIONS: Have been reviewed. LABORATORY DATA: Show sodium 146, potassium 4.2, BUN 36, creatinine 0.96. Phosphorus is 1.8, calciu m 7.8. White count 7.6, hemoglobin 10.0, platelet count is 87. ASSESSMENT AND PLAN: 1. Nonoliguric acute kidney injury on top of chronic kidney disease with previous baseline creatinin e of 1.5 mg/dL. Etiology is likely secondary to hemodynamics. Renal function has improved. Continu e current treatment plan, supportive care, renally dose all meds. 2. Hypernatremia. We will increase free water flushes to 400 mL q.4 hours. Monitor closely. 3. Acute diastolic heart failure. Continue medical management. 4. Anemia. Monitor H and H levels. 5. Mineral bone disorder. The patient is hypophosphatemic. Continue repletion. 6. Hypomagnesemia. Continue to monitor and replete as needed. 7. Atrial fibrillation. Continue medical management. 8. Ventilator-dependent respiratory failure. Vent settings and ABG was reviewed. Continue to monit or. 9. Dysphagia. Continue tube feeding. 10. Seizure disorder. Continue to monitor. Follow up with neurology. 11. Encephalopathy. Continue to monitor. 12. Sepsis secondary to bacteremia. Continue antibiotic therapy. Dictated By: RAJINDER ATWOOD DO NR/NTS Conf#: [id number] DID#: [id number] CC: MENDEL FIELDS MD; ROSALVA SANCHES MD;*EndCC*
[2018-11-02] MEDS ORDERED: PHENYTOIN 100 MG INJ IV SCH (13:00)
--- NOTE | 2018-11-02 13:10 | PN ---
DATE: 11/02/2018 The patient is on in the telemetry floor in room 631. She is on continuous ventilator support. She opens her eyes minimally, but she does not focus and does not follow. She has intermittent involunta ry movements of the lower jaw and facial muscles. According to nursing staff, she has been breathing comfortably with the ventilator support in [facility]. No respiratory distress, no episodes of desaturation, no tracheal bleeding. Secretions are mini mal to moderate and clear. She has been tolerating tube feedings well, without any vomiting. PHYSICAL EXAMINATION: VITAL SIGNS: Show temperature 98.4, blood pressure 129/81, pulse rate 77, respirations 18, pulse oxi metry 100% saturation. She is on 30% inhaled oxygen concentration. HEART: Irregular rhythm showing atrial fibrillation with controlled ventricular rate. CHEST: Breath sounds are heard diminished in both the lower lung corona with a few intermittent rale s and rhonchi. ABDOMEN: Soft. No distention seen. Normal bowel sounds. EXTREMITIES: Show no edema. SCDs are being applied on both the legs. Her intake is 1450 mL and output is 1200 mL in the last 24 hours. The lab tests show sodium 146, potassium 4.2, bicarbonate of 29, BUN is 36, creatinine 0.97. BUN and creatinine have been gradually decreasing, showing improvement in renal status. The glucose is 95. CBC shows a normal WBC of 7600, hemoglobin of 10, hematocrit 35.1, platelets are decreased to 87,000 . Platelets are gradually decreasing from yesterday is 93,000 to 87,000 today. The sputum culture is reported to show gram-negative bacilli. Identification and sensitivity are raysa ited. IMPRESSION: 1. Chronic ventilator-dependent respiratory failure. 2. Multiple acute cerebral infarcts. 3. Acute encephalopathy. 4. New-onset seizures. 5. Advanced chronic obstructive pulmonary disease. 6. Congestive heart failure, diastolic. 7. Chronic atrial fibrillation. 8. History of pulmonary fibrosis. 9. Urosepsis. 10. Chronic kidney disease, gradually improving. 11. Chronic anemia with thrombocytopenia. PLAN: 1. Continue long-term ventilator support. 2. Continue antibiotics per infectious disease leadership development consultant. As of now, she is on vancomycin and Maxi pime. 3. Continue bronchodilator inhalation therapy to maintain the pulmonary hygiene and clear the secret ions. 4. Continue inhaled steroids. 5. Continue anticonvulsant medications per neurology. 6. Continue G-tube feeding. 7. Continue GI prophylaxis. 8. Continue anticoagulant prophylaxis. She is off Lovenox and has been placed on Eliquis. 9. Continue supportive therapy. Dictated By: KORTNEY GAMEZ MD SR/NTS Conf#: [id number] DID#: [id number] CC: ROSALVA SANCHES MD;*EndCC*
--- NOTE | 2018-11-02 14:07 | CONS ---
Date/Time of Note Date/Time of Note DATE: 11/02/18 TIME: 14:05 Assessment/Plan Assessment/Plan Additional Assessment/Plan 1. Atrial fibrillation with a rapid ventricular response.-now improved HR s/p IVP digoxin doses x 2 - in sinus now 2. Abnormal electrocardiogram with ST depressions during atrial fibrillation with rapid ventricular response- resume anti-coagultion 3. Altered mental state/encephalopathy - [place] 4. Possible seizure-like activity. 5. Congestive heart failure, diastolic, ACUTE - increased water retention now - start lasix 20 mg IV BID 6. Hypertension. 7. Urinary tract infection. 8. Renal failure. 9. Leukocytosis- on anti-bx, will monitor clinically 10. bacteremia- treated 11.fevers Consultation Date/Type/Reason Admit Date/Time Oct 27, 2018 at 08:14 Initial Consult Date 10/28/18 Requesting Provider: JAYLEN LUGO MD 24 HR Interval Summary Free Text/Dictation increased water retention now - start lasix 20 mg IV BID ROS: No fever, no chills, no nausea, no vomiting, no diarrhea/constipation No recent weight changes No chest pain, no PND, no orthopnea - chronic SOB No dizziness, blurred vision No thirst, no heat or cold intolerance Exam/Review of Systems Vital Signs Vitals Vital Signs Date Temp Pulse Resp B/P (MAP) Pulse Ox O2 O2 Flow FiO2 Time Delivery Rate 11/02/18 82 12:00 11/02/18 20 99 30 11:40 11/02/18 98.6 124/80 Mechanical 11:35 (95) Ventilator Intake and Output 11/01/18 11/01/18 11/02/18 1515:00 23:00 07:00 IntakeIntake Total 50 ml 165 ml 1200 ml OutputOutput Total 450 ml 750 ml BalanceBalance 50 ml -285 ml 450 ml Exam General: WN/WD/NAD, AOx comfortable HEENT: Unicetric/atraumatic/EOMI (follow commands) NECK: trach Lymph: no lymphadenopathy HEART: regular with no S3, II/ systolic murmur at apex LUNGS: Coarse sounds ABD: soft, NT, ND, +BS : Intact Neuro: non focal SKIN: chronic changes EXT: INCREASED edema KINGSTON HEARD MD Nov 02, 2018 14:07
--- NOTE | 2018-11-02 15:17 | CONS ---
Date/Time of Note Date/Time of Note DATE: 11/02/18 TIME: 15:14 Consultation Date/Type/Reason Admit Date/Time Oct 27, 2018 at 08:14 Initial Consult Date SUBJECTIVE: Patient is sleepy, trach to vent. Looks comfortable, afebrile. VS: stable T: 98.5 LABS: Reviewed. WBC-7.6 Microbiology: Blood culture on admission grew coag negative staph species with repeat blood cultures negative, urine culture growing Klebsiella ESBL Antimicrobials: Vancomycin, cefepime Indwelling: Tracheostomy, NG tube, Damon catheter, peripheral IV Physical examination: GEN: Chronically ill-appearing elderly woman who is awake nonverbal noncommunicative and in no distress. Head atraumatic normocephalic sclera nonicteric. Neck is supple, tracheostomy present. Chest rise symmetrical, breath sounds diminished bases. Heart: S1-S2. Abdomen soft bowel sounds present. Extremities with trace edema. Assessment: 1. Acute encephalopathy secondary to CVA 2. Urinary tract infection 3. Seizure disorder/status epilepticus 4. Bacteremia, consistent with contaminant 5. MRSA nares colonization 6. Atrial fibrillation 7. Healthcare associated pneumonia Plan: Remains unchanged and hemodynamically stable. Continue current antibiotics. Requesting Provider: JAYLEN LUGO MD Exam/Review of Systems Vital Signs Vitals Vital Signs Date Temp Pulse Resp B/P (MAP) Pulse Ox O2 O2 Flow FiO2 Time Delivery Rate 11/02/18 98.5 68 24 131/87 100 Mechanical 15:05 (102) Ventilator 11/02/18 30 14:08 Intake and Output 11/01/18 11/01/18 11/02/18 1414:59 22:59 06:59 IntakeIntake Total 50 ml 165 ml 1200 ml OutputOutput Total 450 ml 750 ml BalanceBalance 50 ml -285 ml 450 ml MADONNA ODELL Nov 02, 2018 15:17
[2018-11-02] MEDS ORDERED: PHENYTOIN 500 MG in SOD CHLORIDE 0.9% 100 ML IV ONE (17:30)
[2018-11-02] MEDS: FUROSEMIDE 20 MG INJ IV SCH (17:53)
[2018-11-03] VITALS (22 sets, daily range): BP systolic 106–125; BP diastolic 53–67; PULSE 67–105; RESP 16–30
[2018-11-03] MEDS: LEVALBUTEROL (NEB) 1.25 MG/0.5 ML AMP HHN SCH ×4 (01:10→19:40)
[2018-11-03] MEDS: IPRATROPIUM (NEB) 0.5 MG/2.5 ML AMP HHN SCH ×4 (01:10→19:40)
[2018-11-03] MEDS: LANSOPRAZOLE 30 MG CAP GTB SCH (05:06)
[2018-11-03] MEDS: FUROSEMIDE 20 MG INJ IV SCH ×2 (05:59→18:40)
[2018-11-03] MEDS: BUDESONIDE (NEB) 0.5MG/2ML AMP HHN SCH ×2 (08:02→19:40)
[2018-11-03] MEDS: MUPIROCIN 2% 22 GM OINT TOP SCH ×2 (09:00→21:55)
[2018-11-03] MEDS: PHENYTOIN 100 MG INJ IV SCH ×2 (09:00→21:55)
[2018-11-03] MEDS: METOPROLOL 25 MG TAB PO SCH ×2 (09:00→21:56)
[2018-11-03] MEDS: BALSAM PERU/CASTOR OIL 60 GM TUBE TOP SCH (09:00)
[2018-11-03] MEDS: CEFEPIME 1GM/50 ML (PMX) 50 ML IVPB SCH (10:20)
[2018-11-03] MEDS: APIXABAN 5 MG TABLET PO SCH ×2 (10:20→21:57)
[2018-11-03] MEDS: NEUTRA-PHOS 250 MG PACKET PO SCH ×2 (10:20→21:57)
--- NOTE | 2018-11-03 11:00 | PN ---
Date/Time of Note Date/Time of Note DATE: 11/03/18 TIME: 10:59 Assessment/Plan VTE Prophylaxis Risk score (from Ns)>0 risk: 8 SCD applied [place]from [facility] [place] Yes Pharmacological prophylaxis: LMWH Lines/Catheters IV [facility]ter Type (from [facility]): Peripheral IV Urinary Cath still in place: Yes Reason Cath still needed: skin wounds contaminated by urine Assessment/Plan Hospital Course 1. Acute encephalopathy. - neurology follows; EEG done 2. Fever and leukocytosis with positive blood culture. Continue IV vancomycin and cefepime. Further recommendation will depend on patient's hospital course and recommendation from Dr. Melendez. 3. Chronic obstructive pulmonary disease. Continue breathing treatment. 4. Paroxysmal atrial fibrillation. The patient is currently in atrial fibrillation. The patient is on metoprolol on p.r.n. basis. The patient is unable to take anything p.o. since she is encephalopathic. The patient does not have a G-tube or NG tube. - CVA prophylaxis- Lovenox based on creatinine - GI prophylaxis, continue Protonix. Subjective 24 Hr Interval Summary Free Text/Dictation Patient appear comfortable, seems to comprehend but unable to speak because of trach Exam/Review of Systems Vital Signs Vitals Vital Signs Date Temp Pulse Resp B/P (MAP) Pulse Ox O2 O2 Flow FiO2 Time Delivery Rate 11/03/18 82 08:00 11/03/18 99.0 18 106/53 100 07:42 (70) 11/03/18 30 05:12 11/02/18 Mechanical 15:05 Ventilator Intake and Output 11/02/18 11/02/18 11/03/18 1515:00 23:00 07:00 IntakeIntake Total 1200 ml 1320 ml OutputOutput Total 550 ml 950 ml BalanceBalance 650 ml 370 ml Exam Constitutional: well developed Head: normocephalic, atraumatic Neck: supple Respiratory: diminished breath sounds Cardiovascular: regular rate and rhythm Gastrointestinal: soft, non-tender Extremities: normal pulses ROSALVA SANCHES Nov 03, 2018 11:00
--- NOTE | 2018-11-03 12:05 | CONS ---
Date/Time of Note Date/Time of Note DATE: 11/03/18 TIME: 12:03 Assessment/Plan Assessment/Plan Additional Assessment/Plan 1. Atrial fibrillation with a rapid ventricular response.-now improved HR s/p IVP digoxin doses x 2 - in sinus now - rate controled - better overall 2. Abnormal electrocardiogram with ST depressions during atrial fibrillation with rapid ventricular response- resume anti-coagultion 3. Altered mental state/encephalopathy - stable 4. Possible seizure-like activity. 5. Congestive heart failure, diastolic, ACUTE - increased water retention now - start lasix 20 mg IV BID - con;t diuresis - better today 6. Hypertension. 7. Urinary tract infection. 8. Renal failure. 9. Leukocytosis- on anti-bx, will monitor clinically - no new fevers Consultation Date/Type/Reason Admit Date/Time Oct 27, 2018 at 08:14 Initial Consult Date 10/28/18 Requesting Provider: JAYLEN LUGO MD 24 HR Interval Summary Free Text/Dictation NO acute events - no CP - responded to diuresis - rate controlled ROS: No fever, no chills, no nausea, no vomiting, no diarrhea/constipation No recent weight changes No chest pain, no PND, no orthopnea + SOB No dizziness, blurred vision No thirst, no heat or cold intolerance Exam/Review of Systems Vital Signs Vitals Vital Signs Date Temp Pulse Resp B/P (MAP) Pulse Ox O2 O2 Flow FiO2 Time Delivery Rate 11/03/18 98.6 67 20 121/67 99 11:44 (85) 11/03/18 30 05:12 11/02/18 Mechanical 15:05 Ventilator Intake and Output 11/02/18 11/02/18 11/03/18 1515:00 23:00 07:00 IntakeIntake Total 1200 ml 1320 ml OutputOutput Total 550 ml 950 ml BalanceBalance 650 ml 370 ml Exam General: WN/WD/NAD, AOx more comfortable HEENT: Unicetric/atraumatic/EOMI (does not follow commands) NECK: JVD elevated, no thyromegaly Lymph: no lymphadenopathy HEART: regular with no S3, II/ systolic murmur at apex - PMI L LUNGS: Coarse sounds ABD: soft, NT, ND, +BS : Intact Neuro: non focal SKIN: chronic changes EXT: + edema KINGSTON HEARD MD Nov 03, 2018 12:05
--- NOTE | 2018-11-03 12:27 | PN ---
DATE: 11/03/2018 SUBJECTIVE: The patient remains in serious but stable condition. No other events noted. OBJECTIVE: VITAL SIGNS: Blood pressure is 106/53, pulse 78, respiration 18, temperature 99.0. HEENT: Head is normocephalic. NECK: Supple. HEART: Regular rate. LUNGS: Show diminished breath sounds at the base. ABDOMEN: Soft, nontender to palpation without rebound or guarding. EXTREMITIES: Negative for clubbing, cyanosis, no edema. DERMATOLOGIC: No rashes. MUSCULOSKELETAL: No joint effusions. NEUROLOGIC: No change in exam. MEDICATIONS: Reviewed. LABORATORY DATA: Shows sodium 141, potassium 4.0, BUN 36, creatinine 0.92. White count 6.4, hemoglo bin 9.6, platelet count is 95. ASSESSMENT AND PLAN: 1. Nonoliguric acute kidney injury on top of chronic kidney disease with previous baseline creatinin e of 1.5 mg/dL. Etiology of AKA is secondary to hemodynamics. Renal function is improved. Continue current treatment plan, supportive care, renally dose all meds. 2. Hypernatremia. The patient's sodium levels improved. Continue free water flushes. We will cons ider deescalating in the next 24 hours. 3. Acute diastolic heart failure. Continue medical management. 4. Anemia. Monitor hemoglobin and hematocrit levels. 5. Mineral bone disorder. The patient's phosphorus levels have improved. Continue repletion. 6. Hypomagnesemia. Continue to monitor and replete as needed. 7. Atrial fibrillation. Continue medical management. 8. Ventilator dependent respiratory failure. Vent settings and ABG was reviewed. Continue to monit or. 9. Dysphagia. Continue tube feeding. 10. Seizure disorder. Continue to monitor. Follow up with neurology. 11. Encephalopathy continue current treatment plan. 12. Sepsis bacteremia. Continue current antibiotic regimen. Dictated By: RAJINDER ATWOOD DO NR/NTS Conf#: [id number] DID#: [id number] CC: ROSALVA SANCHES MD; MENDEL FIELDS MD;*EndCC*
--- NOTE | 2018-11-03 12:29 | PN ---
DATE: 11/03/2018 SUBJECTIVE: The patient is in telemetry floor in room 631. She is on ventilator support. She seems to be awake. Her eyes are open, but she makes no eye contact and does not follow when spoken to. Her breathing appears comfortable in synchrony with ventilator support. She is on a rate of 16 and h er own spontaneous respiratory rate is 19. PHYSICAL EXAMINATION: VITAL SIGNS: Stable. No fever spikes. Temperature 99, blood pressure 106/53, pulse rate 78, respir ations 18, pulse oximetry 100% saturation. NECK: Tracheal secretions are clear. No bleeding seen. HEART: Irregular rhythm showing atrial fibrillation with controlled ventricular rate. CHEST: Breath sounds are heard bilaterally, diminished in both the lower lung corona with a few inte rmittent rales and rhonchi. ABDOMEN: Soft, tolerating NG tube feedings. Bowel sounds are present. EXTREMITIES: Show no edema. She has SCDs on both the legs. NEUROLOGICAL: The patient's mental status as described earlier. She has intermittent involuntary tw itching movements involving the lower jaw and the facial muscles. LABORATORY TESTS: From today show sodium 141, potassium 4, bicarbonate of 28, BUN is 36, creatinine 0.92, glucose 104. BUN and creatinine have been gradually improving, but further improvement may not be likely due to her underlying chronic kidney disease. The CBC shows a WBC of 6400, hemoglobin 9.6 , hematocrit 33.4, platelets are decreased from 95,000 for what seems to be coming up slightly from y 's 87,000. The sputum culture is reported to show growth of Pseudomonas aeruginosa and Steno trophomonas maltophilia. MEDICATIONS: The patient is on: 1. Vancomycin. 2. Cefepime. IMPRESSION: 1. Chronic ventilator dependent respiratory failure. 2. Multiple acute cerebral infarcts. 3. Acute encephalopathy. 4. New onset seizures. 5. Advanced chronic obstructive pulmonary disease. 6. Healthcare-acquired pneumonia secondary to Pseudomonas aeruginosa and Stenotrophomonas maltophili a. 7. Advanced chronic obstructive pulmonary disease. 8. Congestive heart failure, diastolic. 9. Chronic atrial fibrillation. 10. History of pulmonary fibrosis. 11. Urosepsis. 12. Chronic kidney disease, gradually improving. 13. Chronic anemia with thrombocytopenia. PLAN: 1. Continue long-term ventilator support. 2. Continue bronchodilator inhalation therapy to maintain pulmonary hygiene and clear the secretions . 3. Continue antibiotics per infectious disease retirement consultant. 4. Continue inhaled steroids. 5. Continue anticonvulsant medications per neurology. 6. Continue G-tube feedings. 7. Continue GI prophylaxis. 8. Continue anticoagulant prophylaxis for long-term. 9. Continue supportive therapy. 10. The patient may need permanent G-tube placement for long-term feeding as she may not be able to take oral feedings in view of her altered mental status which carries a risk of aspiration. Dictated By: KORTNEY GAMEZ MD SR/NTS Conf#: [id number] DID#: [id number] CC: ROSALVA SANCHES MD; MENDEL FIELDS MD;*EndCC*
[2018-11-03] MEDS ORDERED: PHENYTOIN 100 MG INJ IV SCH (13:00)
[2018-11-03] MEDS: PHENYTOIN 250 MG INJ IV SCH (13:00)
--- NOTE | 2018-11-03 13:38 | CONS ---
Date/Time of Note Date/Time of Note DATE: 11/03/18 TIME: 13:37 Assessment/Plan Assessment/Plan Chief Complaint/Hosp Course Patient is more awake and in no distress looks comfortable no fevers overnight WBC 6.4 neutrophils 82.1 BUN 36 creatinine 0.92 Microbiology: Endotracheal aspirate growing Pseudomonas, procidentia and Stenotrophomonas maltophilia Antimicrobials: Vancomycin, cefepime Indwelling: Tracheostomy, NG tube, Damon catheter, peripheral IV Physical examination: Chronically ill-appearing elderly woman who is awake nonverbal noncommunicative and in no distress. Head atraumatic normocephalic sclera nonicteric. Neck is supple, tracheostomy present. Chest rise symm etrical, breath sounds diminished bases. Heart: S1-S2. Abdomen soft bowel sounds present. Extremities with trace edema. Assessment: 1. Acute encephalopathy secondary to CVA 2. Urinary tract infection 3. Seizure disorder/status epilepticus 4. Bacteremia, consistent with contaminant 5. MRSA nares colonization 6. Atrial fibrillation 7. Healthcare associated pneumonia Plan: Clinically doing better, will change vancomycin to Bactrim Consultation Date/Type/Reason Admit Date/Time Oct 27, 2018 at 08:14 Initial Consult Date 10/28/18 Type of Consult ID Requesting Provider: JAYLEN LUGO MD Exam/Review of Systems Vital Signs Vitals Vital Signs Date Temp Pulse Resp B/P (MAP) Pulse Ox O2 O2 Flow FiO2 Time Delivery Rate 11/03/18 71 16 100 30 13:20 11/03/18 98.6 121/67 11:44 (85) 11/02/18 Mechanical 15:05 Ventilator Intake and Output 11/02/18 11/02/18 11/03/18 1515:00 23:00 07:00 IntakeIntake Total 1200 ml 1320 ml OutputOutput Total 550 ml 950 ml BalanceBalance 650 ml 370 ml [employer]BO [employer] Nov 03, 2018 13:38
[2018-11-03] MEDS ORDERED: VANCOMYCIN 1.25 GM in SOD CHLORIDE 0.9% 250 ML IVPB SCH (16:00)
[2018-11-03] MEDS: TRIMETHOPRIM/SULFAMETHOX (DS) TAB NGT SCH (21:57)
--- NOTE | 2018-11-03 22:18 | CONS ---
Date/Time of Note Date/Time of Note DATE: 11/03/18 TIME: 22:17 Assessment/Plan Assessment/Plan Chief Complaint/Hosp Course ANEMIA WITH COMPONENT ACD CONT TO MONITOR BLOOD COUNT CLOSELY OBSERVE FOR BLEEDING AND HEMOLYSIS NO INDICATIONS FOR TRANSFUSION Hypomagnesium- resolved Imrhn-go-[id number] respiratory failure. The patient's respiratory status has improved after he was dialyzed yesterday. The patient is breathing comfortably. Endstage renal disease. Continue hemodialysis as per Dr. Monique. Coronary artery disease. Continue aspirin and carvedilol. Cardiomyopathy. Continue aspirin, carvedilol and Eliquis. Dyslipidemia. The patient is already maxed out on Lipitor. Benign prostatic hypertrophy. Continue Flomax. Chronic obstructive pulmonary disease evaluation. Continue DuoNeb, Rocephin. Meanwhile, we will decrease Solu-Medrol to 20 daily. Diabetes. Out of control due to Solu-Medrol and also patient due to agitation and unpredictable p.o. intake was not given long-acting. The patient at home takes Tresiba. I will start him on Lantus. Acute psychosis. Continue p.r.n. Haldol. Chronic lower back pain. Continue [place] as needed. Consultation Date/Type/Reason Admit Date/Time Oct 27, 2018 at 08:14 Initial Consult Date 10/28/18 Type of Consult [facility] Requesting Provider: JAYLEN LUGO MD 24 HR Interval Summary Free Text/Dictation ALL NOTED NAD NO BLEEDING Exam/Review of Systems Vital Signs Vitals Vital Signs Date Temp Pulse Resp B/P (MAP) Pulse Ox O2 O2 Flow FiO2 Time Delivery Rate 11/03/18 97.8 105 17 125/61 96 20:46 (82) 11/03/18 30 18:00 11/02/18 Mechanical 15:05 Ventilator Intake and Output 11/02/18 11/02/18 11/03/18 1515:00 23:00 07:00 IntakeIntake Total 1200 ml 1320 ml OutputOutput Total 550 ml 950 ml BalanceBalance 650 ml 370 ml Exam Constitutional: non-verbal Psych: nl mood/affect Eyes: nl conjunctiva, nl lids, nl sclera ENMT: nl external ears & nose Neck: other Respiratory: diminished breath sounds Cardiovascular: nl pulses, other Gastrointestinal: soft, other Musculoskeletal: muscle weakness, range of motion Extremities: normal pulses Neurological: lethargic Lymph: nontender WENDIE BARILLAS MD Nov 03, 2018 22:18
[2018-11-04] VITALS (24 sets, daily range): BP systolic 113–120; BP diastolic 58–73; PULSE 72–107; RESP 16–29
[2018-11-04] MEDS: LEVALBUTEROL (NEB) 1.25 MG/0.5 ML AMP HHN SCH ×4 (01:14→20:09)
[2018-11-04] MEDS: IPRATROPIUM (NEB) 0.5 MG/2.5 ML AMP HHN SCH ×4 (01:14→20:09)
[2018-11-04] MEDS: LANSOPRAZOLE 30 MG CAP GTB SCH (06:22)
[2018-11-04] MEDS: FUROSEMIDE 20 MG INJ IV SCH ×2 (06:23→18:25)
[2018-11-04] MEDS: BUDESONIDE (NEB) 0.5MG/2ML AMP HHN SCH ×2 (08:16→20:09)
[2018-11-04] MEDS: MUPIROCIN 2% 22 GM OINT TOP SCH ×2 (09:00→20:56)
[2018-11-04] MEDS: PHENYTOIN 100 MG INJ IV SCH ×2 (09:00→20:54)
[2018-11-04] MEDS: BALSAM PERU/CASTOR OIL 60 GM TUBE TOP SCH (09:00)
[2018-11-04] MEDS: NEUTRA-PHOS 250 MG PACKET PO SCH ×2 (09:00→20:56)
--- NOTE | 2018-11-04 09:52 | PN ---
DATE: 11/04/2018 SUBJECTIVE: The patient seems to be awake. Her eyes are open, but she is poorly communicative and d oes not follow. She does not make eye contact and does not focus. Her breathing with her long-term ventilator support through tracheostomy appears comfortable. She has not had any periods of desatura tion. No respiratory distress according to nursing staff and per the respiratory therapist at the [facility]. PHYSICAL EXAMINATION: VITAL SIGNS: Show temperature 97, blood pressure 116/73, pulse rate of 94, respirations 18, pulse ox imetry 100% saturation. NECK: Tracheal secretions are minimal to moderate. No bleeding seen. HEART: Irregular rhythm showing atrial fibrillation with controlled ventricular rate. CHEST: Breath sounds are heard bilaterally, diminished in both the lower lung corona with a few inte rmittent rales and rhonchi. ABDOMEN: Soft, tolerating nasogastric tube feedings. Bowel sounds are normally heard. EXTREMITIES: Show no pedal edema. SCDs have been applied over both the lower legs. Intake the last 24 hours is 1320 mL, output is 1250 mL. LABORATORY DATA: From today shows sodium 138, potassium 4.3, bicarbonate of 31, BUN 37, creatinine 0 .98. BUN and creatinine seems to have reached a plateau and may not show further improvement. Actua lly there has been some slight increase in both BUN and creatinine. No CBC results are available as of now. The sputum culture is reported to show growth of Pseudomonas aeruginosa, and Stenotrop homonas maltophilia. She is on cefepime. IMPRESSION: 1. Chronic ventilator dependent respiratory failure. 2. Healthcare-acquired pneumonia secondary to Pseudomonas aeruginosa, she has and the Stenotro phomonas maltophilia. 3. Multiple acute cerebral infarcts. 4. Acute encephalopathy. 5. New onset seizures under control. 6. Advanced chronic obstructive lung disease. 7. Congestive heart failure, diastolic. 8. Chronic atrial fibrillation. 9. History of pulmonary fibrosis. 10. Urosepsis secondary to Klebsiella pneumoniae. 11. Chronic kidney disease, gradually improving. 12. Chronic anemia, thrombocytopenia. PLAN: 1. Continue long-term ventilator support. 2. Continue bronchodilator inhalation therapy to maintain the pulmonary hygiene and clear the secret ions. 3. Continue antibiotics per infectious disease healthcare management consultant. 4. Continue inhaled steroids. 5. Continue anticonvulsant medications per neurology. 6. Continue NG tube feedings. 7. Continue GI prophylaxis. 8. Continue anticoagulant prophylaxis for long-term. 9. Continue supportive therapy. 10. The patient will need swallow evaluation and if she fails swallow evaluation, she may need G-tub e placement for long-term feeding. Dictated By: KORTNEY GAMEZ MD SR/NTS Conf#: [id number] DID#: [id number] CC: ROSALVA SANCHES MD;*EndCC*
[2018-11-04] MEDS ORDERED: MAGNESIUM SULFATE 2 GM/50 ML 50 ML IVPB ONE (10:00)
--- NOTE | 2018-11-04 10:57 | PN ---
Date/Time of Note Date/Time of Note DATE: 11/04/18 TIME: 10:56 Assessment/Plan VTE Prophylaxis Risk score (from Ns)>0 risk: 8 SCD applied (from [facility] [place]): Yes Pharmacological prophylaxis: LMWH Lines/Catheters IV Catheter Type (from [facility]): Peripheral IV Urinary Cath still in place: Yes Reason Cath still needed: skin wounds contaminated by urine Assessment/Plan Hospital Course 1. Acute encephalopathy. - neurology follows; EEG done 2. Fever and leukocytosis with positive blood culture. Continue IV vancomycin and cefepime. Further recommendation will depend on patient's hospital course and recommendation from Dr. Melendez. 3. Chronic obstructive pulmonary disease. Continue breathing treatment. 4. Paroxysmal atrial fibrillation. The patient is currently in atrial fibrillation. The patient is on metoprolol on p.r.n. basis. The patient is unable to take anything p.o. since she is encephalopathic. The patient does not have a G-tube or NG tube. - CVA prophylaxis- Lovenox based on creatinine - GI prophylaxis, continue Protonix. Subjective 24 Hr Interval Summary Free Text/Dictation Patient sedated, l arm seem to be more swollen Exam/Review of Systems Vital Signs Vitals Vital Signs Date Temp Pulse Resp B/P (MAP) Pulse Ox O2 O2 Flow FiO2 Time Delivery Rate 11/04/18 84 08:34 11/04/18 26 100 30 08:06 11/04/18 97.0 116/73 08:00 (87) 11/02/18 Mechanical 15:05 Ventilator Intake and Output 11/03/18 11/03/18 11/04/18 1515:00 23:00 07:00 IntakeIntake Total 1320 ml OutputOutput Total 1250 ml BalanceBalance 70 ml Exam Constitutional: well developed Head: normocephalic, atraumatic Neck: supple Respiratory: clear to auscultation Gastrointestinal: soft, non-tender Extremities: normal pulses ROSALVA SANCHES Nov 04, 2018 10:57
--- NOTE | 2018-11-04 11:49 | CONS ---
Assessment/Plan Assessment/Plan Assessment/Plan 73 yo F with reported Hx of afib, HTN, and other comorbidities...who presents with ams, tachyarrhythmia, and involuntary muscle jerking...for which neurology is consulted. The clinical picture is consistent w/ status epilepticus. The pt was noted to be in afib with RVR on readmission, which raises concern for superimposed acute stroke. Encephalitis is unlikely.. 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 EEG is notable for frequent right hemispheric epileptiform discharges, which is clinically consistent with status epilepticus. Echo is unrevealing. P: Continue maintenance dilantin 200/250/200 for now. Titrate PRN to goal level 10- 20 Ativan iv for prolonged seizure > 5min or for cluster Continue Lipitor for secondary stroke prevention Eliquis OK for the same..beginning 11/04 Other medical management and supportive care per primary Will follow clinically Result Diagram: 11/03/18 0603 11/04/18 0514 Results 24hrs Laboratory Tests Test 11/04/18 05:14 Sodium Level 138 Potassium Level 4.3 Chloride Level 103 Carbon Dioxide Level 31 Anion Gap 4 L Blood Urea Nitrogen 37 H Creatinine 0.98 Est Glomerular Filtrat Rate mL/min Glucose Level 101 Calcium Level 7.3 L Phosphorus Level 2.5 Magnesium Level 1.6 L Phenytoin (Dilantin) Level 10.0 Consultation Date/Type/Reason Admit Date/Time Oct 27, 2018 at 08:14 Type of Consult Neurology Requesting Provider: JAYLEN LUGO MD Date/Time of Note DATE: 11/04/18 TIME: 11:48 24 HR Interval Summary Free Text/Dictation Continues telemetry monitoring. No acute events or seizures reported. Subjective hx not possible: pt non-verbal Exam Vital Signs Vitals Vital Signs Date Temp Pulse Resp B/P (MAP) Pulse Ox O2 O2 Flow FiO2 Time Delivery Rate 11/04/18 84 08:34 11/04/18 26 100 30 08:06 11/04/18 97.0 116/73 08:00 (87) 11/02/18 Mechanical 15:05 Ventilator Intake and Output 11/03/18 11/03/18 11/04/18 1414:59 22:59 06:59 IntakeIntake Total 1320 ml OutputOutput Total 1250 ml BalanceBalance 70 ml Exam PE: Gen Appearance: No Apparent Distress HEENT: Has trach Cardiovascular: SR on telemetry Abdomen: Soft Extremities: Dry NE: The patient was awake though nonverbal. Was blinking spontaneously. The pt did not track or follow commands. Cranial nerve examination was limited by mental status. Pupils were equal, round and briskly reactive to light. There was no afferent pupillary defect. Funduscopic examination was limited. Face was grossly symmetric, w/ a present cough/gag reflex. Tone was increased in her upper extremities . Muscle bulk was slightly diminished. I did not see fasciculations. The patient withdrew her extremities to noxious stimuli. Coordination and gait testing was limited by mental status. Arm and leg reflexes were symmetric. Doshi's sign was absent. Plantar responses were flexor. JOE WYATT NP Nov 04, 2018 11:49 CHRISTIANA LARSON Nov 05, 2018 08:02
--- NOTE | 2018-11-04 11:53 | CONS ---
Date/Time of Note Date/Time of Note DATE: 11/04/18 TIME: 11:51 Assessment/Plan Assessment/Plan Additional Assessment/Plan 1. Atrial fibrillation with a rapid ventricular response.-now improved HR s/p IVP digoxin doses x 2 - In A. FIB - rate controled - better overall 2. Abnormal electrocardiogram with ST depressions during atrial fibrillation with rapid ventricular response- resume anti-coagultion - no signs of bleeding. 3. Altered mental state/encephalopathy - stable 4. Possible seizure-like activity. 5. Congestive heart failure, diastolic, ACUTE - increased water retention now - start lasix 20 mg IV BID - con;t diuresis - better today RESPONDED to DIURESIS. 6. Hypertension. 7. Urinary tract infection. 8. Renal failure. 9. Leukocytosis- on anti-bx, will monitor clinically - no new fever Consultation Date/Type/Reason Admit Date/Time Oct 27, 2018 at 08:14 Initial Consult Date 10/28/18 Requesting Provider: JAYLEN LUGO MD 24 HR Interval Summary Free Text/Dictation Rate controlled - in a. fib - responded to diuresis - no CP now. ROS: No fever, no chills, no nausea, no vomiting, no diarrhea/constipation No recent weight changes No chest pain, no PND, no orthopnea + SOB No dizziness, blurred vision No thirst, no heat or cold intolerance Meds and Labs reviewed. Exam/Review of Systems Vital Signs Vitals Vital Signs Date Temp Pulse Resp B/P (MAP) Pulse Ox O2 O2 Flow FiO2 Time Delivery Rate 11/04/18 84 08:34 11/04/18 26 100 30 08:06 11/04/18 97.0 116/73 08:00 (87) 11/02/18 Mechanical 15:05 Ventilator Intake and Output 11/03/18 11/03/18 11/04/18 1515:00 23:00 07:00 IntakeIntake Total 1320 ml OutputOutput Total 1250 ml BalanceBalance 70 ml Exam General: WN/WD/NAD, AOx 1-2 confused HEENT: Unicetric/atraumatic/EOMI (does not follow commands) NECK: trach Lymph: no lymphadenopathy HEART: irregular with no S3, II/ systolic murmur at apex LUNGS: Coarse sounds ABD: soft, NT, ND, +BS : Intact Neuro: non focal SKIN: chronic changes EXT: improved edema KINGSTON HEARD MD Nov 04, 2018 11:53
--- NOTE | 2018-11-04 12:08 | PN ---
DATE: 11/04/2018 SUBJECTIVE: The patient is stable, no events overnight. OBJECTIVE: VITAL SIGNS: Blood pressure is 116/73, pulse 84, temperature 97.0. HEENT: Head is normocephalic. NECK: Supple. HEART: Regular rate. LUNGS: Show diminished breath sounds at the base. ABDOMEN: Soft, nontender to palpation, no rebound or guarding. EXTREMITIES: Negative for clubbing, cyanosis, no edema. DERMATOLOGIC: No rashes. MUSCULOSKELETAL: No joint effusion. NEUROLOGIC: No change in exam. MEDICATIONS: Reviewed. LABORATORY DATA: From 11/04/2018 shows magnesium 1.6, BUN 37, creatinine 0.98. White count 6.4, hem oglobin 9.6, platelet count is 96. ASSESSMENT AND PLAN: 1. Nonoliguric acute kidney injury on top. CK is 56, creatinine of 1.5 mg/dL. Etiology of acute ki dney injury is secondary to hemodynamics. Renal function is improved. Continue current treatment pl ans, supportive care, renally dose all medication. 2. Hypernatremia, improved. Continue free water flushes. 3. Acute diastolic heart failure. Continue low-dose diuretic therapy. 4. Anemia. Continue to monitor hemoglobin and hematocrit levels. 5. Mineral bone disorder. Monitor calcium and phosphorus levels. 6. Hypomagnesemia. Will replete with magnesium sulfate. 7. Atrial fibrillation. Continue medical management. 8. Ventilator dependent respiratory failure. Vent settings and arterial blood gas was reviewed. Co ntinue to monitor. 9. Dysphagia. Continue tube feeding. 10. Seizure disorder. Continue to monitor. 11. Encephalopathy, improving. Continue to monitor. 12. Sepsis bacteremia. Continue current antibiotic regimen. Dictated By: RAJINDER ATWOOD DO NR/NTS Conf#: [id number] DID#: [id number] CC: ROSALVA SANCHES MD;*EndCC*
[2018-11-04] MEDS: TRIMETHOPRIM/SULFAMETHOX (DS) TAB NGT SCH ×2 (12:22→20:54)
[2018-11-04] MEDS: APIXABAN 5 MG TABLET PO SCH ×2 (12:22→20:55)
[2018-11-04] MEDS: CEFEPIME 1GM/50 ML (PMX) 50 ML IVPB SCH (12:23)
[2018-11-04] MEDS: METOPROLOL 25 MG TAB PO SCH ×2 (12:23→20:56)
[2018-11-04] MEDS: PHENYTOIN 250 MG INJ IV SCH (12:24)
[2018-11-04] MEDS ORDERED: morphine LIQ (10 MG/5 ML) CUP PO PRN (14:30)
[2018-11-04] MEDS ORDERED: LORAZEPAM 4 MG/ML VIAL IV PRN ×2 (15:00)
--- NOTE | 2018-11-04 15:55 | CONS ---
Date/Time of Note Date/Time of Note DATE: 11/04/18 TIME: 15:54 Assessment/Plan Assessment/Plan Chief Complaint/Hosp Course No acute changes patient looks comfortable, no fevers overnight, tolerates tube feedings Microbiology: Endotracheal aspirate growing Pseudomonas, procidentia and Stenotrophomonas maltophilia Antimicrobials: Bactrim, cefepime Indwelling: Tracheostomy, NG tube, Damon catheter, peripheral IV Physical examination: Chronically ill-appearing elderly woman who is awake nonverbal noncommunicative and in no distress. Head atraumatic normocephalic sclera nonicteric. Neck is supple, tracheostomy present. Chest rise symmetrical, breath sounds diminished bases. Heart: S1-S2. Abdomen soft bowel sounds present. Extremities with trace edema. Assessment: 1. Acute encephalopathy secondary to CVA 2. Urinary tract infection 3. Seizure disorder/status epilepticus 4. Bacteremia, consistent with contaminant 5. MRSA nares colonization 6. Atrial fibrillation 7. Healthcare associated pneumonia 8. Bilateral superficial venous thrombus within the cephalic veins. Plan: Remains stable, continue present care Consultation Date/Type/Reason Admit Date/Time Oct 27, 2018 at 08:14 Initial Consult Date 10/28/18 Type of Consult ID Requesting Provider: JAYLEN LUGO MD Exam/Review of Systems Vital Signs Vitals Vital Signs Date Temp Pulse Resp B/P (MAP) Pulse Ox O2 O2 Flow FiO2 Time Delivery Rate 11/04/18 98.7 107 19 113/66 99 15:40 (82) 11/04/18 30 14:01 11/02/18 Mechanical 15:05 Ventilator Intake and Output 11/03/18 11/03/18 11/04/18 1515:00 23:00 07:00 IntakeIntake Total 1320 ml OutputOutput Total 1250 ml BalanceBalance 70 ml Medications Medications Current Medications Metoprolol Tartrate (Lopressor) 5 mg Q4H PRN IV HR>110 Hold SBP<100 Last administered on 10/28/18at 05:38; Admin Dose 5 MG; Start 10/27/18 at 13:30 Cefepime HCl 50 ml @ 100 mls/hr DAILY IVPB Last administered on 11/04/18at 12:23; Admin Dose 100 MLS/HR; Start 10/28/18 at 09:00 Acetaminophen (Tylenol Supp) [address] FEVER GREATER THAN 100.6 Last a dministered on 10/28/18 03:07; Admin Dose 650 MG; Start 10/28/18 at 02:30 Hydralazine HCl (Apresoline) 10 mg Q4H PRN IV SBP>170; Start 10/28/18 at 11:00 Mupirocin (Bactroban) 1 applic BID TOP Last administered on 11/04/18 09:00; Admin Dose 1 APPLIC; Start 10/28/18 at 21:00 Levalbuterol (Xopenex Neb) 1.25 mg Q6H RESP THERAPY HHN Last administered on 11/04/18 14:05; Admin Dose 1.25 MG; Start 10/29/18 at 08:00 Budesonide (Pulmicort (Neb)) 0.5 mg BID RESP THERAPY HHN Last administered on 11/04/18 08:16; Admin Dose 0.5 MG; Start 10/29/18 at 09:00 Ipratropium [place] (Atrovent 0.02% (Neb)) 0.5 mg Q6H RESP THERAPY HHN Last administered on 11/04/18 14:04; Admin Dose 0.5 MG; Start 10/29/18 at 08:00 Lansoprazole (Prevacid) 30 mg DAILY@06 GTB Last administered on 11/04/18 06:22; Admin Dose 30 MG; Start 10/31/18 at 06:00 Metoprolol Tartrate (Lopressor) 25 mg BID PO Last administered on 11/04/18 12:23; Admin Dose 25 MG; Start 10/31/18 at 12:00 Sodium Phosphate (Neutra-Phos) 250 mg BID PO Last administered on 11/04/18 09:00; Admin Dose 250 MG; Start 11/01/18 at 09:00 Apixaban (Eliquis) 2.5 mg BID PO Last administered on 11/04/18 12:22; Admin Dose 2.5 MG; Start 11/02/18 at 09:00 Phenytoin (Dilantin) 200 mg Q12 IV Last administered on 11/04/18 09:00; Admin Dose 200 MG; Start 11/01/18 at 21:00 Furosemide (Lasix) 20 mg BID DIURETICS IV Last administered on 12/24/18at 06:23; Admin Dose 20 MG; Start 11/02/18 at 18:00 Phenytoin (Dilantin) 250 mg DAILY@1300 IV Last administered on 11/04/18at 12:24; Admin Dose 250 MG; Start 11/03/18 at 13:00 Trimethoprim/ Sulfamethoxazole (Bactrim (Ds)) 1 tab BID NGT Last administered on 11/04/18at 12:22; Admin Dose 1 TAB; Start 11/03/18 at 21:00 Morphine Sulfate (morphine) 15 mg Q4H PRN PO SEVERE PAIN LEVEL 7-10; Start 11/04/18 at 14:30 Lorazepam (Ativan) 1 mg Q6H PRN IV SEIZURES; Start 11/04/18 at 15:00 Lorazepam (Ativan) 1 mg Q6H PRN PO ANXIETY; Start 11/04/18 at 15:00 DEBO UMANA NP Nov 04, 2018 15:55
--- NOTE | 2018-11-04 17:50 | CONS ---
Date/Time of Note Date/Time of Note DATE: 11/04/18 TIME: 17:50 Assessment/Plan Assessment/Plan Chief Complaint/Hosp Course ANEMIA WITH COMPONENT ACD CONT TO MONITOR BLOOD COUNT CLOSELY OBSERVE FOR BLEEDING AND HEMOLYSIS NO INDICATIONS FOR TRANSFUSION Hypomagnesium- resolved [id number] respiratory failure. The patient's respiratory status has improved after he was dialyzed yesterday. The patient is breathing comfortably. Endstage renal disease. Continue hemodialysis as per Dr. Monique. Coronary artery disease. Continue aspirin and carvedilol. Cardiomyopathy. Continue aspirin, carvedilol and Eliquis. Dyslipidemia. The patient is already maxed out on Lipitor. Benign prostatic hypertrophy. Continue Flomax. Chronic obstructive pulmonary disease evaluation. Continue DuoNeb, Rocephin. Meanwhile, we will decrease Solu-Medrol to 20 daily. Diabetes. Out of control due to Solu-Medrol and also patient due to agitation and unpredictable p.o. intake was not given long-acting. The patient at home takes Tresiba. I will start him on Lantus. Acute psychosis. Continue p.r.n. Haldol. Chronic lower back pain. Continue [place] as needed. Consultation Date/Type/Reason Admit Date/Time Oct 27, 2018 at 08:14 Initial Consult Date 10/28/18 Type of Consult [facility] Requesting Provider: JAYLEN LUGO MD 24 HR Interval Summary Free Text/Dictation ALL NOTED Exam/Review of Systems Vital Signs Vitals Vital Signs Date Temp Pulse Resp B/P (MAP) Pulse Ox O2 O2 Flow FiO2 Time Delivery Rate 11/04/18 82 26 98 30 17:25 11/04/18 98.7 113/66 15:40 (82) 11/02/18 Mechanical 15:05 Ventilator Intake and Output 11/03/18 11/03/18 11/04/18 1414:59 22:59 06:59 IntakeIntake Total 1320 ml OutputOutput Total 1250 ml BalanceBalance 70 ml Exam Constitutional: non-verbal Psych: nl mood/affect Eyes: nl conjunctiva, nl lids, nl sclera ENMT: nl external ears & nose Neck: other Respiratory: diminished breath sounds Cardiovascular: nl pulses, other Gastrointestinal: soft, other Musculoskeletal: muscle weakness, range of motion Extremities: normal pulses Neurological: lethargic Lymph: nontender Medications Medications Current Medications Metoprolol Tartrate (Lopressor) 5 mg Q4H PRN IV HR>110 Hold SBP<100 Last administered on 10/28/18at 05:38; Admin Dose 5 MG; Start 10/27/18 at 13:30 Cefepime HCl 50 ml @ 100 mls/hr DAILY IVPB Last administered on 11/04/18 12:23; Admin Dose 100 MLS/HR; Start 10/28/18 at 09:00 Acetaminophen (Tylenol Supp) 650 mg Q6H PRN [place] FEVER GREATER THAN 100.6 Last administered on 10/28/18 03:07; Admin Dose 650 MG; Start 10/28/18 at 02:30 Hydralazine HCl (Apresoline) 10 mg Q4H PRN IV SBP>170; Start 10/28/18 at 11:00 Mupirocin (Bactroban) 1 applic BID TOP Last administered on 11/04/18 09:00; Admin Dose 1 APPLIC; Start 10/28/18 at 21:00 Levalbuterol (Xopenex Neb) 1.25 mg Q6H RESP THERAPY HHN Last administered on 11/04/18 14:05; Admin Dose 1.25 MG; Start 10/29/18 at 08:00 Budesonide (Pulmicort (Neb)) 0.5 mg BID RESP THERAPY HHN Last administered on 11/04/18 08:16; Admin Dose 0.5 MG; Start 10/29/18 at 09:00 Ipratropium [place] (Atrovent 0.02% (Neb)) 0.5 mg Q6H RESP THERAPY HHN Last administered on 11/04/18 14:04; Admin Dose 0.5 MG; Start 10/29/18 at 08:00 Lansoprazole (Prevacid) 30 mg DAILY@06 GTB Last administered on 11/04/18 06:22; Admin Dose 30 MG; Start 10/31/18 at 06:00 Metoprolol Tartrate (Lopressor) 25 mg BID PO Last administered on 11/04/18 12:23; Admin Dose 25 MG; Start 10/31/18 at 12:00 Sodium Phosphate (Neutra-Phos) 250 mg BID PO Last administered on 11/04/18 09:00; Admin Dose 250 MG; Start 11/01/18 at 09:00 Apixaban (Eliquis) 2.5 mg BID PO Last administered on 11/04/18at 12:22; Admin Dose 2.5 MG; Start 11/02/18 at 09:00 Phenytoin (Dilantin) 200 mg Q12 IV Last administered on 11/04/18at 09:00; Admin Dose 200 MG; Start 11/01/18 at 21:00 Furosemide (Lasix) 20 mg BID DIURETICS IV Last administered on 11/04/18at 06:23; Admin Dose 20 MG; Start 11/02/18 at 18:00 Phenytoin (Dilantin) 250 mg DAILY@1300 IV Last administered on 11/04/18at 12:24; Admin Dose 250 MG; Start 11/03/18 at 13:00 Trimethoprim/ Sulfamethoxazole (Bactrim (Ds)) 1 tab BID NGT Last administered on 11/04/18at 12:22; Admin Dose 1 TAB; Start 11/03/18 at 21:00 Morphine Sulfate (morphine) 15 mg Q4H PRN PO SEVERE PAIN LEVEL 7-10; Start 11/04/18 at 14:30 Lorazepam (Ativan) 1 mg Q6H PRN IV SEIZURES; Start 11/04/18 at 15:00 Lorazepam (Ativan) 1 mg Q6H PRN PO ANXIETY; Start 11/04/18 at 15:00 WENDIE BARILLAS MD Nov 04, 2018 17:50
[2018-11-04] MEDS: DOCUSATE SODIUM 10 MG/ML (10ML CUP) NGT SCH (20:54)
[2018-11-04] MEDS ORDERED: DOCUSATE SODIUM 100 MG CAP PO SCH (21:00)
[2018-11-05] VITALS (24 sets, daily range): BP systolic 115–124; BP diastolic 55–87; PULSE 70–101; RESP 16–28
[2018-11-05] MEDS: LEVALBUTEROL (NEB) 1.25 MG/0.5 ML AMP HHN SCH ×4 (01:17→20:36)
[2018-11-05] MEDS: IPRATROPIUM (NEB) 0.5 MG/2.5 ML AMP HHN SCH ×4 (01:17→20:36)
[2018-11-05] MEDS: LANSOPRAZOLE 30 MG CAP GTB SCH (06:08)
[2018-11-05] MEDS: FUROSEMIDE 20 MG INJ IV SCH ×2 (06:10→18:00)
--- NOTE | 2018-11-05 07:13 | CONS ---
Date/Time of Note Date/Time of Note DATE: 11/05/18 TIME: 07:12 Assessment/Plan Assessment/Plan Chief Complaint/Hosp Course ANEMIA WITH COMPONENT ACD CONT TO MONITOR BLOOD COUNT CLOSELY OBSERVE FOR BLEEDING AND HEMOLYSIS NO INDICATIONS FOR TRANSFUSION Hypomagnesium- resolved [id number] respiratory failure. The patient's respiratory status has improved after he was dialyzed yesterday. The patient is breathing comfortably. Endstage renal disease. Continue hemodialysis as per Dr. Monique. Coronary artery disease. Continue aspirin and carvedilol. Cardiomyopathy. Continue aspirin, carvedilol and Eliquis. Dyslipidemia. The patient is already maxed out on Lipitor. Benign prostatic hypertrophy. Continue Flomax. Chronic obstructive pulmonary disease evaluation. Continue DuoNeb, Rocephin. Meanwhile, we will decrease Solu-Medrol to 20 daily. Diabetes. Out of control due to Solu-Medrol and also patient due to agitation and unpredictable p.o. intake was not given long-acting. The patient at home takes Tresiba. I will start him on Lantus. Acute psychosis. Continue p.r.n. Haldol. Chronic lower back pain. Continue [place] as needed. Consultation Date/Type/Reason Admit Date/Time Oct 27, 2018 at 08:14 Initial Consult Date 10/28/18 Type of Consult [facility] Requesting Provider: JAYLEN LUGO MD 24 HR Interval Summary Free Text/Dictation ALL NOTED nad NO BLEEDING Exam/Review of Systems Vital Signs Vitals Vital Signs Date Temp Pulse Resp B/P (MAP) Pulse Ox O2 O2 Flow FiO2 Time Delivery Rate 11/05/18 97 25 99 30 05:10 11/05/18 97.9 124/60 03:56 (81) 11/02/18 Mechanical 15:05 Ventilator Intake and Output 11/04/18 11/04/18 11/05/18 1515:00 23:00 07:00 IntakeIntake Total 1000 ml 1000 ml OutputOutput Total 1500 ml 650 ml BalanceBalance -500 ml 350 ml Exam Constitutional: non-verbal Psych: nl mood/affect Eyes: nl conjunctiva, nl lids, nl sclera ENMT: nl external ears & nose Neck: other Respiratory: diminished breath sounds Cardiovascular: nl pulses, other Gastrointestinal: soft, other Musculoskeletal: muscle weakness, range of motion Extremities: normal pulses Neurological: lethargic Lymph: nontender Medications Medications Current Medications Metoprolol Tartrate (Lopressor) 5 mg Q4H PRN IV HR>110 Hold SBP<100 Last administered on 10/28/18at 05:38; Admin Dose 5 MG; Start 10/27/18 at 13:30 Cefepime HCl 50 ml @ 100 mls/hr DAILY IVPB Last administered on 11/04/18at 12:23; Admin Dose 100 MLS/HR; Start 10/28/18 at 09:00 Acetaminophen (Tylenol Supp) 650 mg Q6H PRN [place] FEVER GREATER THAN 100.6 Last administered on 10/28/18 03:07; Admin Dose 650 MG; Start 10/28/18 at 02:30 Hydralazine HCl (Apresoline) 10 mg Q4H PRN IV SBP>170; Start 10/28/18 at 11:00 Mupirocin (Bactroban) 1 applic BID TOP Last administered on 11/04/18 20:56; Admin Dose 1 APPLIC; Start 10/28/18 at 21:00 Levalbuterol (Xopenex Neb) 1.25 mg Q6H RESP THERAPY HHN Last administered on 11/05/18 01:17; Admin Dose 1.25 MG; Start 10/29/18 at 08:00 Budesonide (Pulmicort (Neb)) 0.5 mg BID RESP THERAPY HHN Last administered on 11/04/18 20:09; Admin Dose 0.5 MG; Start 10/29/18 at 09:00 Ipratropium [place] (Atrovent 0.02% (Neb)) 0.5 mg Q6H RESP THERAPY HHN Last administered on 11/05/18 01:17; Admin Dose 0.5 MG; Start 10/29/18 at 08:00 Lansoprazole (Prevacid) 30 mg DAILY@06 GTB Last administered on 11/05/18 06:08; Admin Dose 30 MG; Start 10/31/18 at 06:00 Metoprolol Tartrate (Lopressor) 25 mg BID PO Last administered on 11/04/18 20:56; Admin Dose 25 MG; Start 10/31/18 at 12:00 Sodium Phosphate (Neutra-Phos) 250 mg BID PO Last administered on 11/04/18 20:56; Admin Dose 250 MG; Start 11/01/18 at 09:00 Apixaban (Eliquis) 2.5 mg BID PO Last administered on 11/04/18at 20:55; Admin Dose 2.5 MG; Start 11/02/18 at 09:00 Phenytoin (Dilantin) 200 mg Q12 IV Last administered on 11/04/18at 20:54; Admin Dose 200 MG; Start 11/01/18 at 21:00 Furosemide (Lasix) 20 mg BID DIURETICS IV Last administered on 11/05/18at 06:10; Admin Dose 20 MG; Start 11/02/18 at 18:00 Phenytoin (Dilantin) 250 mg DAILY@1300 IV Last administered on 11/04/18at 12:24; Admin Dose 250 MG; Start 11/03/18 at 13:00 Trimethoprim/ Sulfamethoxazole (Bactrim (Ds)) 1 tab BID NGT Last administered on 11/04/18at 20:54; Admin Dose 1 TAB; Start 11/03/18 at 21:00 Morphine Sulfate (morphine) 15 mg Q4H PRN PO SEVERE PAIN LEVEL 7-10; Start 11/04/18 at 14:30 Lorazepam (Ativan) 1 mg Q6H PRN IV SEIZURES; Start 11/04/18 at 15:00 Lorazepam (Ativan) 1 mg Q6H PRN PO ANXIETY; Start 11/04/18 at 15:00 Docusate Sodium (Colace Liquid Cup) 100 mg BID NGT Last administered on 11/04/18at 20:54; Admin Dose 100 MG; Start 11/04/18 at 21:00 WENDIE BARILLAS MD Nov 05, 2018 07:13
[2018-11-05] MEDS: BUDESONIDE (NEB) 0.5MG/2ML AMP HHN SCH ×2 (08:30→20:36)
[2018-11-05] MEDS: PHENYTOIN 100 MG INJ IV SCH ×2 (09:48→21:14)
[2018-11-05] MEDS: METOPROLOL 25 MG TAB PO SCH ×2 (09:48→21:12)
[2018-11-05] MEDS: APIXABAN 5 MG TABLET PO SCH ×2 (09:48→21:13)
[2018-11-05] MEDS: CEFEPIME 1GM/50 ML (PMX) 50 ML IVPB SCH (09:48)
[2018-11-05] MEDS: TRIMETHOPRIM/SULFAMETHOX (DS) TAB NGT SCH ×2 (09:48→21:11)
[2018-11-05] MEDS: DOCUSATE SODIUM 10 MG/ML (10ML CUP) NGT SCH ×2 (09:48→21:14)
[2018-11-05] MEDS: BALSAM PERU/CASTOR OIL 60 GM TUBE TOP SCH (09:49)
[2018-11-05] MEDS: NEUTRA-PHOS 250 MG PACKET PO SCH ×2 (09:49→21:11)
[2018-11-05] MEDS: MUPIROCIN 2% 22 GM OINT TOP SCH ×2 (09:49→21:13)
[2018-11-05] MEDS ORDERED: BISACODYL 10 MG SUPP PR PRN (11:30)
--- NOTE | 2018-11-05 11:32 | PN ---
Date/Time of Note Date/Time of Note DATE: 11/05/18 TIME: 11:31 Assessment/Plan VTE Prophylaxis Risk score (from Ns)>0 risk: 7 SCD applied (from Ns): Yes Pharmacological prophylaxis: LMWH Lines/Catheters IV Catheter Type (from [facility]): Peripheral IV Urinary Cath still in place: Yes Reason Cath still needed: skin wounds contaminated by urine Assessment/Plan Hospital Course 1. Acute encephalopathy. - neurology follows; EEG done 2. Fever and leukocytosis with positive blood culture. Continue IV vancomycin and cefepime. Further recommendation will depend on patient's hospital course and recommendation from Dr. Melendez. 3. Chronic obstructive pulmonary disease. Continue breathing treatment. 4. Paroxysmal atrial fibrillation. The patient is currently in atrial fibrillation. The patient is on metoprolol on p.r.n. basis. The patient is unable to take anything p.o. since she is encephalopathic. The patient does not have a G-tube or NG tube. - CVA prophylaxis- Lovenox based on creatinine - GI prophylaxis, continue Protonix. Result Diagram: 11/05/18 0603 11/05/18 0603 Results 24hrs Laboratory Tests Test 11/05/18 06:03 White Blood Count 5.8 Red Blood Count 3.28 L Hemoglobin 9.9 L Hematocrit 33.7 L Mean Corpuscular Volume 102.7 H Mean Corpuscular Hemoglobin 30.2 Mean Corpuscular Hemoglobin Concent 29.4 L Red Cell Distribution Width 15.9 H Platelet Count 78 L Mean Platelet Volume 12.2 H Immature Granulocytes % 0.700 H Neutrophils % 82.3 H Lymphocytes % 12.3 L Monocytes % 3.6 Eosinophils % 0.9 Basophils % 0.2 Nucleated Red Blood Cells % 0.0 Immature Granulocytes # 0.040 H Neutrophils # 4.8 Lymphocytes # 0.7 L Monocytes # 0.2 L Eosinophils # 0.1 Basophils # 0.0 Nucleated Red Blood Cells # 0.0 Sodium Level 140 Potassium Level 4.3 Chloride Level 101 Carbon Dioxide Level 29 Anion Gap 10 # Blood Urea Nitrogen 38 H Creatinine 1.07 H Est Glomerular Filtrat Rate mL/min Glucose Level 96 Calcium Level 7.8 L Phosphorus Level 3.1 Magnesium Level 1.7 Phenytoin (Dilantin) Level 6.4 L Subjective 24 Hr Interval Summary Free Text/Dictation Patient has eyes open but not verbally responsive Exam/Review of Systems Vital Signs Vitals Vital Signs Date Temp Pulse Resp B/P (MAP) Pulse Ox O2 O2 Flow FiO2 Time Delivery Rate 11/05/18 92 22 96 30 11:22 11/05/18 98.5 122/58 11:10 (79) 11/02/18 Mechanical 15:05 Ventilator Intake and Output 11/04/18 11/04/18 11/05/18 1515:00 23:00 07:00 IntakeIntake Total 1000 ml 1000 ml OutputOutput Total 1500 ml 650 ml BalanceBalance -500 ml 350 ml Exam Constitutional: well developed Head: normocephalic, atraumatic Neck: supple Respiratory: diminished breath sounds Cardiovascular: regular rate and rhythm Gastrointestinal: soft, non-tender Extremities: normal pulses Medications Medications Current Medications Metoprolol Tartrate (Lopressor) 5 mg Q4H PRN IV HR>110 Hold SBP<100 Last administered on 10/28/18 05:38; Admin Dose 5 MG; Start 10/27/18 at 13:30 Cefepime HCl 50 ml @ 100 mls/hr DAILY IVPB Last administered on 11/05/18 09:48; Admin Dose 100 MLS/HR; Start 10/28/18 at 09:00 Acetaminophen (Tylenol Supp) 650 mg Q6H PRN [place] FEVER GREATER THAN 100.6 Last administered on 10/28/18 03:07; Admin Dose 650 MG; Start 10/28/18 at 02:30 Hydralazine HCl (Apresoline) 10 mg Q4H PRN IV SBP>170; Start 10/28/18 at 11:00 Mupirocin (Bactroban) 1 applic BID TOP Last administered on 11/05/18 09:49; Admin Dose 1 APPLIC; Start 10/28/18 at 21:00 Levalbuterol (Xopenex Neb) 1.25 mg Q6H RESP THERAPY HHN Last administered on 1 01/06/18 08:30; Admin Dose 1.25 MG; Start 10/29/18 at 08:00 Budesonide (Pulmicort (Neb)) 0.5 mg BID RESP THERAPY HHN Last administered on 11/05/18 08:30; Admin Dose 0.5 MG; Start 10/29/18 at 09:00 Ipratropium [place] (Atrovent 0.02% (Neb)) 0.5 mg Q6H RESP THERAPY HHN Last administered on 11/05/18 08:30; Admin Dose 0.5 MG; Start 10/29/18 at 08:00 Lansoprazole (Prevacid) 30 mg DAILY@06 GTB Last administered on 11/05/18 06:08; Admin Dose 30 MG; Start 10/31/18 at 06:00 Metoprolol Tartrate (Lopressor) 25 mg BID PO Last administered on 11/05/18 09:48; Admin Dose 25 MG; Start 10/31/18 at 12:00 Sodium Phosphate (Neutra-Phos) 250 mg BID PO Last administered on 11/05/18 09:49; Admin Dose 250 MG; Start 11/01/18 at 09:00 Apixaban (Eliquis) 2.5 mg BID PO Last administered on 11/05/18 09:48; Admin Dose 2.5 MG; Start 11/02/18 at 09:00 Phenytoin (Dilantin) 200 mg Q12 IV Last administered on 11/05/18 09:48; Admin Dose 200 MG; Start 11/01/18 at 21:00 Furosemide (Lasix) 20 mg BID DIURETICS IV Last administered on 11/05/18 06:10; Admin Dose 20 MG; Start 11/02/18 at 18:00 Phenytoin (Dilantin) 250 mg DAILY@1300 IV Last administered on 11/04/18 12:24; Admin Dose 250 MG; Start 11/03/18 at 13:00 Trimethoprim/ Sulfamethoxazole (Bactrim (Ds)) 1 tab BID NGT Last administered on 11/05/18 09:48; Admin Dose 1 TAB; Start 11/03/18 at 21:00 Morphine Sulfate (morphine) 15 mg Q4H PRN PO SEVERE PAIN LEVEL 7-10; Start 11/04/18 at 14:30 Lorazepam (Ativan) 1 mg Q6H PRN IV SEIZURES; Start 11/04/18 at 15:00 Lorazepam (Ativan) 1 mg Q6H PRN PO ANXIETY; Start 11/04/18 at 15:00 Docusate Sodium (Colace Liquid Cup) 100 mg BID NGT Last administered on 11/05/18 09:48; Admin Dose 100 MG; Start 11/04/18 at 21:00 Bisacodyl (Dulcolax Supp) 10 mg DAILY PRN [place] CONSTIPATION; Start 11/05/18 at 11:30; Status UNV ROSALVA SANCHES Nov 05, 2018 11:32
--- NOTE | 2018-11-05 11:46 | CONS ---
Date/Time of Note Date/Time of Note DATE: 11/05/18 TIME: 11:46 Assessment/Plan Assessment/Plan Chief Complaint/Hosp Course Subjective: All noted, looks comfortable, no fevers overnight Microbiology: Endotracheal aspirate growing Pseudomonas, procidentia and Stenotrophomonas maltophilia Antimicrobials: Bactrim, cefepime Indwelling: Tracheostomy, NG tube, Damon catheter, peripheral IV Physical examination: Chronically ill-appearing elderly woman who is awake nonverbal noncommunicative and in no distress. Head atraumatic normocephalic sclera nonicteric. Neck is supple, tracheostomy present. Chest rise symmetrical, breath sounds diminished bases. Heart: S1-S2. Abdomen soft bowel sounds present. Extremities with trace edema. Assessment: 1. Acute encephalopathy secondary to CVA 2. Urinary tract infection 3. Seizure disorder/status epilepticus 4. Bacteremia, consistent with contaminant 5. MRSA nares colonization 6. Atrial fibrillation 7. Healthcare associated pneumonia 8. Bilateral superficial venous thrombus within the cephalic veins. Plan: Remains stable, completing antibiotics, continue present care Consultation Date/Type/Reason Admit Date/Time Oct 27, 2018 at 08:14 Initial Consult Date 10/28/18 Type of Consult ID Requesting Provider: JAYLEN LUGO MD Exam/Review of Systems Vital Signs Vitals Vital Signs Date Temp Pulse Resp B/P (MAP) Pulse Ox O2 O2 Flow FiO2 Time Delivery Rate 11/05/18 92 22 96 30 11:22 11/05/18 98.5 122/58 11:10 (79) 11/02/18 Mechanical 15:05 Ventilator Intake and Output 11/04/18 11/04/18 11/05/18 1515:00 23:00 07:00 IntakeIntake Total 1000 ml 1000 ml OutputOutput Total 1500 ml 650 ml BalanceBalance -500 ml 350 ml Medications Medications Current Medications Metoprolol Tartrate (Lopressor) 5 mg Q4H PRN IV HR>110 Hold SBP<100 Last administered on 10/28/18at 05:38; Admin Dose 5 MG; Start 10/27/18 at 13:30 Cefepime HCl 50 ml @ 100 mls/hr DAILY IVPB Last administered on 11/05/18at 09:48; Admin Dose 100 MLS/HR; Start 10/28/18 at 09:00 Acetaminophen (Tylenol Supp) [address] FEVER GREATER THAN 100.6 Last administered on 10/28/18 03:07; Admin Dose 650 MG; Start 10/28/18 at 02:30 Hydralazine HCl (Apresoline) 10 mg Q4H PRN IV SBP>170; Start 10/28/18 at 11:00 Mupirocin (Bactroban) 1 applic BID TOP Last administered on 11/05/18 09:49; Admin Dose 1 APPLIC; Start 10/28/18 at 21:00 Levalbuterol (Xopenex Neb) 1.25 mg Q6H RESP THERAPY HHN Last administered on 11/05/18 08:30; Admin Dose 1.25 MG; Start 10/29/18 at 08:00 Budesonide (Pulmicort (Neb)) 0.5 mg BID RESP THERAPY HHN Last administered on 11/05/18 08:30; Admin Dose 0.5 MG; Start 10/29/18 at 09:00 Ipratropium [place] (Atrovent 0.02% (Neb)) 0.5 mg Q6H RESP THERAPY HHN Last administered on 11/05/18 08:30; Admin Dose 0.5 MG; Start 10/29/18 at 08:00 Lansoprazole (Prevacid) 30 mg DAILY@06 GTB Last administered on 11/05/18 06:08; Admin Dose 30 MG; Start 10/31/18 at 06:00 Metoprolol Tartrate (Lopressor) 25 mg BID PO Last administered on 11/05/18 09:48; Admin Dose 25 MG; Start 10/31/18 at 12:00 Sodium Phosphate (Neutra-Phos) 250 mg BID PO Last administered on 11/05/18 09:49; Admin Dose 250 MG; Start 11/01/18 at 09:00 Apixaban (Eliquis) 2.5 mg BID PO Last administered on 11/05/18 09:48; Admin Dose 2.5 MG; Start 11/02/18 at 09:00 Phenytoin (Dilantin) 200 mg Q12 IV Last administered on 11/05/18 09:48; Admin Dose 200 MG; Start 11/01/18 at 21:00 Furosemide (Lasix) 20 mg BID DIURETICS IV Last administered on 12/25/18at 06:10; Admin Dose 20 MG; Start 11/02/18 at 18:00 Phenytoin (Dilantin) 250 mg DAILY@1300 IV Last administered on 11/04/18at 12:24; Admin Dose 250 MG; Start 11/03/18 at 13:00 Trimethoprim/ Sulfamethoxazole (Bactrim (Ds)) 1 tab BID NGT Last administered on 11/05/18at 09:48; Admin Dose 1 TAB; Start 11/03/18 at 21:00 Morphine Sulfate (morphine) 15 mg Q4H PRN PO SEVERE PAIN LEVEL 7-10; Start 11/04/18 at 14:30 Lorazepam (Ativan) 1 mg Q6H PRN IV SEIZURES; Start 11/04/18 at 15:00 Lorazepam (Ativan) 1 mg Q6H PRN PO ANXIETY; Start 11/04/18 at 15:00 Docusate Sodium (Colace Liquid Cup) 100 mg BID NGT Last administered on 11/05/18at 09:48; Admin Dose 100 MG; Start 11/04/18 at 21:00 Bisacodyl (Dulcolax Supp) [address] CONSTIPATION; Start 11/05/18 at 11:30 DEBO UMANA NP Nov 05, 2018 11:46
--- NOTE | 2018-11-05 11:46 | PN ---
DATE: 11/05/2018 SUBJECTIVE: The patient is stable, no events overnight. OBJECTIVE: VITAL SIGNS: Blood pressure is 124/63, pulse 94, respiration 18, temperature 98.5. HEENT: Head is normocephalic. NECK: Supple. HEART: Regular rate. LUNGS: Show diminished breath sounds at the base. ABDOMEN: Soft, nontender to palpation without rebound or guarding. EXTREMITIES: Negative for clubbing, cyanosis, no edema. DERMATOLOGIC: No rashes. MUSCULOSKELETAL: No joint effusion. NEUROLOGIC: No change in exam. MEDICATIONS: Reviewed. LABORATORY DATA: Shows a sodium 140, potassium 4.3, BUN 38, creatinine 1.07. White count 5.8, hemog lobin 9.9, platelet count is 78. ASSESSMENT AND PLAN: 1. Nonoliguric acute injury on top of chronic kidney disease with previous baseline creatinine of 1. 5 mg/dL. Etiology of acute kidney injury is secondary to hemodynamics. The patient's renal function is currently below baseline. At this point, continue current treatment plan, supportive care, renal ly dose all meds. 2. Hyponatremia, improved. 3. Acute diastolic heart failure. The patient remains volume overloaded. Continue diuretic therapy , monitor renal function, electrolytes closely. 4. Anemia. Monitor hemoglobin and hematocrit levels. 5. Mineral bone disorder, monitor calcium and phosphorus levels. 6. Hypomagnesemia. Continue to monitor and replete as needed. 7. Atrial fibrillation. Continue medical management. 8. Ventilator-dependent respiratory failure. Vent settings and ABG was reviewed. Continue to monit or. 9. Dysphagia. Continue tube feeding. 10. Seizure disorder. Continue to monitor. 11. Encephalopathy, improving. 12. Sepsis bacteremia. The patient is completing an antibiotic course. Dictated By: RAJINDER ATWOOD DO NR/NTS Conf#: [id number] DID#: [id number] CC: ROSALVA SANCHES MD; MENDEL FIELDS MD;*[facility]*
--- NOTE | 2018-11-05 12:04 | PN ---
DATE: 11/05/2018 SUBJECTIVE: The patient is in room 631 on the telemetry floor. She is on continuous ventilator supp ort through tracheostomy. Her breathing appears comfortable and synchronized with the ventilator. S he is awake and looks around when called and able to follow simple commands, though not consistently. She still has involuntary twitching movements of the lower jaw and the lower facial muscles. NECK: Tracheal secretions are mucoid. No bleeding seen. HEART: Irregular rhythm showing atrial fibrillation with controlled ventricular rate. CHEST: Breath sounds are heard bilaterally, diminished in both the lower lung corona with a few inte rmittent rales and rhonchi. ABDOMEN: Soft, no distention seen, tolerating NG tube feedings. Bowel sounds are normally heard. EXTREMITIES: Show no pedal edema. SCDs have been applied over the lower extremities. The intake in the last 24 hours is 2000 mL, output is 2150 mL. LABORATORY DATA: From today shows a WBC 5800, hemoglobin 9.9, hematocrit 33.7, platelets decreased t o 78,000. The chemistry panel shows sodium 140, potassium 4.3, bicarbonate 29, BUN 38, creatinine 1. 07, glucose 96. Her BUN and creatinine seem to have reached a plateau and gradually now inching up. There may not be any further improvement. The upper extremity venous Doppler study shows bilateral superficial vein thrombosis within the hepat ic cephalic veins, but no evidence of deep vein thrombosis. IMPRESSION: 1. Chronic ventilator dependent respiratory failure. 2. Healthcare-acquired pneumonia. 3. Multiple acute cerebral infarcts. 4. Acute encephalopathy. 5. New onset seizures. 6. Advanced chronic obstructive lung disease. 7. Congestive heart failure, diastolic. 8. Chronic atrial fibrillation. 9. History of pulmonary fibrosis. 10. Urosepsis secondary to Klebsiella pneumoniae. 11. Chronic kidney disease. 12. Chronic anemia with thrombocytopenia. PLAN: 1. Continue long-term ventilator support. 2. Continue bronchodilator inhalation therapy to maintain the pulmonary hygiene and clear the secret ions. 3. Continue antibiotics per infectious disease medical sales consultant. As of now, she is on Maxipime. 4. Continue inhaled steroids. 5. Continue anticonvulsant medications per neurology. She is on Dilantin. 6. Continue NG tube feedings. 7. Continue GI prophylaxis. 8. Continue anticoagulant prophylaxis for long-term. 9. Patient will need swallow evaluation and if she fails swallow evaluation, she may need endoscopic ally placed gastrostomy tube for long-term feeding. Dictated By: KORTNEY GAMEZ MD SR/NTS Conf#: [id number] DID#: [id number] CC: ROSALVA SANCHES MD; MENDEL FIELDS MD;*[facility]*
--- NOTE | 2018-11-05 12:46 | CONS ---
Date/Time of Note Date/Time of Note DATE: 11/05/18 TIME: 12:43 Assessment/Plan Assessment/Plan Additional Assessment/Plan 1. Atrial fibrillation with a rapid ventricular response.-now improved HR s/p IVP digoxin doses x 2 - In A. FIB - rate controled - better overall 2. Abnormal electrocardiogram with ST depressions during atrial fibrillation with rapid ventricular response- resume anti-coagultion - no signs of bleeding. Stable. 3. Altered mental state/encephalopathy - stable - more alert now - more agitated con't pain Rx. 4. Possible seizure-like activity - nio new episodes now 5. Congestive heart failure, diastolic, ACUTE - increased water retention now - start lasix 20 mg IV BID - con;t diuresis - better today RESPONDED to DIURESIS. Better fluidsatus. 6. Hypertension. 7. Urinary tract infection. 8. Renal failure. 9. Leukocytosis- on anti-bx, will monitor clinically - no new fever Consultation Date/Type/Reason Admit Date/Time Oct 27, 2018 at 08:14 Initial Consult Date 10/28/18 Requesting Provider: JAYLEN LUGO MD 24 HR Interval Summary Free Text/Dictation Better fluid status - more agitated - con't pain Rx and resp Rx - good urine output. ROS: No fever, no chills, no nausea, no vomiting, no diarrhea/constipation No recent weight changes No chest pain, no PND, no orthopnea - chronic SOB No dizziness, blurred vision No thirst, no heat or cold intolerance Exam/Review of Systems Vital Signs Vitals Vital Signs Date Temp Pulse Resp B/P (MAP) Pulse Ox O2 O2 Flow FiO2 Time Delivery Rate 11/05/18 92 22 96 30 11:22 11/05/18 98.5 122/58 11:10 (79) 11/02/18 Mechanical 15:05 Ventilator Intake and Output 11/04/18 11/04/18 11/05/18 1515:00 23:00 07:00 IntakeIntake Total 1000 ml 1000 ml OutputOutput Total 1500 ml 650 ml BalanceBalance -500 ml 350 ml Exam General: WN/WD/NAD, AOx 3 HEENT: Unicetric/atraumatic/EOMI (does not follow commands) NECK: trach Lymph: no lymphadenopathy HEART: irregular with no S3, II/ systolic murmur at apex LUNGS: Coarse sounds ABD: soft, NT, ND, +BS : Intact Neuro: non focal SKIN: chronic changes EXT: improved edema Medications Medications Current Medications Metoprolol Tartrate (Lopressor) 5 mg Q4H PRN IV HR>110 Hold SBP<100 Last administered on 10/28/18 05:38; Admin Dose 5 MG; Start 10/27/18 at 13:30 Cefepime HCl 50 ml @ 100 mls/hr DAILY IVPB Last administered on 11/05/18 09:48; Admin Dose 100 MLS/HR; Start 10/28/18 at 09:00 Acetaminophen (Tylenol Supp) 650 mg Q6H PRN [place] FEVER GREATER THAN 100.6 Last administered on 10/28/18 03:07; Admin Dose 650 MG; Start 10/28/18 at 02:30 Hydralazine HCl (Apresoline) 10 mg Q4H PRN IV SBP>170; Start 10/28/18 at 11:00 Mupirocin (Bactroban) 1 applic BID TOP Last administered on 11/05/18 09:49; Admin Dose 1 APPLIC; Start 10/28/18 at 21:00 Levalbuterol (Xopenex Neb) 1.25 mg Q6H RESP THERAPY HHN Last administered on 11/05/18 08:30; Admin Dose 1.25 MG; Start 10/29/18 at 08:00 Budesonide (Pulmicort (Neb)) 0.5 mg BID RESP THERAPY HHN Last administered on 11/05/18 08:30; Admin Dose 0.5 MG; Start 10/29/18 at 09:00 Ipratropium [place] (Atrovent 0.02% (Neb)) 0.5 mg Q6H RESP THERAPY HHN Last administered on 11/05/18 08:30; Admin Dose 0.5 MG; Start 10/29/18 at 08:00 Lansoprazole (Prevacid) 30 mg DAILY@06 GTB Last administered on 11/05/18 06:08; Admin Dose 30 MG; Start 10/31/18 at 06:00 Metoprolol Tartrate (Lopressor) 25 mg BID PO Last administered on 11/05/18 09:48; Admin Dose 25 MG; Start 10/31/18 at 12:00 Sodium Phosphate (Neutra-Phos) 250 mg BID PO Last administered on 11/05/18 09:49; Admin Dose 250 MG; Start 11/01/18 at 09:00 Apixaban (Eliquis) 2.5 mg BID PO Last administered on 11/05/18 09:48; Admin Dose 2.5 MG; Start 11/02/18 at 09:00 Phenytoin (Dilantin) 200 mg Q12 IV Last administered on 11/05/18 09:48; Admin Dose 200 MG; Start 11/01/18 at 21:00 Furosemide (Lasix) 20 mg BID DIURETICS IV Last administered on 11/05/18 06:10; Admin Dose 20 MG; Start 11/02/18 at 18:00 Phenytoin (Dilantin) 250 mg DAILY@1300 IV Last administered on 11/04/18 12:24; Admin Dose 250 MG; Start 11/03/18 at 13:00 Trimethoprim/ Sulfamethoxazole (Bactrim (Ds)) 1 tab BID NGT Last administered on 11/05/18 09:48; Admin Dose 1 TAB; Start 11/03/18 at 21:00 Morphine Sulfate (morphine) 15 mg Q4H PRN PO SEVERE PAIN LEVEL 7-10; Start 11/04/18 at 14:30 Lorazepam (Ativan) 1 mg Q6H PRN IV SEIZURES; Start 11/04/18 at 15:00 Lorazepam (Ativan) 1 mg Q6H PRN PO ANXIETY; Start 11/04/18 at 15:00 Docusate Sodium (Colace Liquid Cup) 100 mg BID NGT Last administered on 11/05/18 09:48; Admin Dose 100 MG; Start 11/04/18 at 21:00 Bisacodyl (Dulcolax Supp) 10 mg DAILY PRN [place] CONSTIPATION Last administered on 11/05/18 12:21; Admin Dose 10 MG; Start 11/05/18 at 11:30 KINGSTON HEARD MD Nov 05, 2018 12:46
[2018-11-05] MEDS: PHENYTOIN 250 MG INJ IV SCH (13:00)
[2018-11-05] MEDS ORDERED: FUROSEMIDE 20 MG TAB NGT SCH (19:30)
[2018-11-05] MEDS ORDERED: PHENYTOIN (100 MG/4 ML) CUP NGT SCH (21:00)
[2018-11-06] VITALS (22 sets, daily range): BP systolic 105–125; BP diastolic 51–82; PULSE 70–102; RESP 2–25
[2018-11-06] MEDS: LEVALBUTEROL (NEB) 1.25 MG/0.5 ML AMP HHN SCH ×4 (02:45→19:31)
[2018-11-06] MEDS: IPRATROPIUM (NEB) 0.5 MG/2.5 ML AMP HHN SCH ×4 (02:45→19:30)
[2018-11-06] MEDS: LANSOPRAZOLE 30 MG CAP GTB SCH (05:24)
[2018-11-06] MEDS: FUROSEMIDE 20 MG INJ IV SCH ×2 (05:31→17:11)
[2018-11-06] MEDS: BUDESONIDE (NEB) 0.5MG/2ML AMP HHN SCH ×2 (08:10→19:30)
[2018-11-06] MEDS: NEUTRA-PHOS 250 MG PACKET PO SCH ×2 (08:53→22:49)
[2018-11-06] MEDS: CEFEPIME 1GM/50 ML (PMX) 50 ML IVPB SCH (08:53)
[2018-11-06] MEDS: PHENYTOIN 100 MG INJ IV SCH ×2 (08:53→21:00)
[2018-11-06] MEDS: TRIMETHOPRIM/SULFAMETHOX (DS) TAB NGT SCH (08:54)
[2018-11-06] MEDS: DOCUSATE SODIUM 10 MG/ML (10ML CUP) NGT SCH ×2 (08:54→22:49)
[2018-11-06] MEDS: METOPROLOL 25 MG TAB PO SCH ×2 (08:54→21:00)
[2018-11-06] MEDS: APIXABAN 5 MG TABLET PO SCH ×2 (08:54→22:50)
[2018-11-06] MEDS: BALSAM PERU/CASTOR OIL 60 GM TUBE TOP SCH (08:55)
[2018-11-06] MEDS: MUPIROCIN 2% 22 GM OINT TOP SCH ×2 (08:55→21:00)
--- NOTE | 2018-11-06 11:34 | PN ---
Date/Time of Note Date/Time of Note DATE: 11/06/18 TIME: 11:33 Assessment/Plan VTE Prophylaxis Risk score (from Ns)>0 risk: 8 SCD applied (from Ns): Yes Pharmacological prophylaxis: LMWH Lines/Catheters IV C[facility] ([facility] Mid Line Urinary Cath still in place: Yes Reason Cath still needed: skin wounds contaminated by urine Assessment/Plan Hospital Course 1. Acute encephalopathy. - neurology follows; EEG done 2. Fever and leukocytosis with positive blood culture. Continue IV vancomycin and cefepime. Further recommendation will depend on patient's hospital course and recommendation from Dr. Melendez. 3. Chronic obstructive pulmonary disease. Continue breathing treatment. 4. Paroxysmal atrial fibrillation. The patient is currently in atrial fibrillation. The patient is on metoprolol on p.r.n. basis. The patient is unable to take anything p.o. since she is encephalopathic. The patient does not have a G-tube or NG tube. - CVA prophylaxis- Lovenox based on creatinine - GI prophylaxis, continue Protonix. Result Diagram: 11/05/18 0603 11/06/18 1031 Results 24hrs Laboratory Tests Test 11/06/18 10:31 Sodium Level 137 Potassium Level 4.7 Chloride Level 102 Carbon Dioxide Level 27 Anion Gap 8 Blood Urea Nitrogen 40 H Creatinine 1.13 H Est Glomerular Filtrat Rate mL/min Glucose Level 102 Calcium Level 7.6 L Phosphorus Level 3.7 Magnesium Level 2.0 Phenytoin (Dilantin) Level 6.9 L Subjective 24 Hr Interval Summary Free Text/Dictation Patient has eyes open, not communicative Exam/Review of Systems Vital Signs Vitals Vital Signs Date Temp Pulse Resp B/P (MAP) Pulse Ox O2 O2 Flow FiO2 Time Delivery Rate 11/06/18 98.3 84 20 115/56 100 11:17 (75) 11/06/18 30 11:15 11/02/18 Mechanical 15:05 Ventilator Intake and Output 11/05/18 11/05/18 11/06/18 1414:59 22:59 06:59 IntakeIntake Total 900 ml OutputOutput Total 1100 ml BalanceBalance -200 ml Exam Constitutional: well developed Head: normocephalic, atraumatic Neck: supple Respiratory: diminished breath sounds Cardiovascular: regular rate and rhythm Gastrointestinal: soft, non-tender Extremities: normal pulses Medications Medications Current Medications Metoprolol Tartrate (Lopressor) 5 mg Q4H PRN IV HR>110 Hold SBP<100 Last administered on 10/28/18 05:38; Admin Dose 5 MG; Start 10/27/18 at 13:30 Cefepime HCl 50 ml @ 100 mls/hr DAILY IVPB Last administered on 11/06/18 08:53; Admin Dose 100 MLS/HR; Start 10/28/18 at 09:00 Acetaminophen (Tylenol Supp) 650 mg Q6H PRN IN FEVER GREATER THAN 100.6 Last administered on 10/28/18 03:07; Admin Dose 650 MG; Start 10/28/18 at 02:30 Hydralazine HCl (Apresoline) 10 mg Q4H PRN IV SBP>170; Start 10/28/18 at 11:00 Mupirocin (Bactroban) 1 applic BID TOP Last administered on 11/06/18 08:55; Admin Dose 1 APPLIC; Start 10/28/18 at 21:00 Levalbuterol (Xopenex Neb) 1.25 mg Q6H RESP THERAPY HHN Last administered on 11/06/18 07:58; Admin Dose 1.25 MG; Start 10/29/18 at 08:00 Budesonide (Pulmicort (Neb)) 0.5 mg BID RESP THERAPY HHN Last administered on 11/06/18at 08:10; Admin Dose 0.5 MG; Start 10/29/18 at 09:00 Ipratropium [place] (Atrovent 0.02% (Neb)) 0.5 mg Q6H RESP THERAPY HHN Last administered on 11/06/18 07:58; Admin Dose 0.5 MG; Start 10/29/18 at 08:00 Lansoprazole (Prevacid) 30 mg DAILY@06 GTB Last administered on 11/06/18 05:24; Admin Dose 30 MG; Start 10/31/18 at 06:00 Metoprolol Tartrate (Lopressor) 25 mg BID PO Last administered on 11/06/18 08:54; Admin Dose 25 MG; Start 10/31/18 at 12:00 Sodium Phosphate (Neutra-Phos) 250 mg BID PO Last administered on 11/06/18 08:53; Admin Dose 250 MG; Start 11/01/18 at 09:00 Apixaban (Eliquis) 2.5 mg BID PO Last administered on 11/06/18 08:54; Admin Dose 2.5 MG; Start 11/02/18 at 09:00 Phenytoin (Dilantin) 200 mg Q12 IV Last administered on 11/06/18 08:53; Admin Dose 200 MG; Start 11/01/18 at 21:00 Furosemide (Lasix) 20 mg BID DIURETICS IV Last administered on 11/06/18at 05:31; Admin Dose 20 MG; Start 11/02/18 at 18:00 Phenytoin (Dilantin) 250 mg DAILY@1300 IV Last administered on 11/05/18 13:00; Admin Dose 250 MG; Start 11/03/18 at 13:00 Trimethoprim/ Sulfamethoxazole (Bactrim (Ds)) 1 tab BID NGT Last administered on 11/06/18 08:54; Admin Dose 1 TAB; Start 11/03/18 at 21:00 Morphine Sulfate (morphine) 15 mg Q4H PRN PO SEVERE PAIN LEVEL 7-10; Start 11/04/18 at 14:30 Lorazepam (Ativan) 1 mg Q6H PRN IV SEIZURES; Start 11/04/18 at 15:00 Lorazepam (Ativan) 1 mg Q6H PRN PO ANXIETY; Start 11/04/18 at 15:00 Docusate Sodium (Colace Liquid Cup) 100 mg BID NGT Last administered on 11/06/18 08:54; Admin Dose 100 MG; Start 11/04/18 at 21:00 Bisacodyl (Dulcolax Supp) 10 mg DAILY PRN IN CONSTIPATION Last administered on 11/05/18 12:21; Admin Dose 10 MG; Start 11/05/18 at 11:30 ROSALVA SANCHES Nov 06, 2018 11:34
--- NOTE | 2018-11-06 12:17 | PN ---
DATE: 11/06/2018 SUBJECTIVE: The patient's general condition is same. She seems to be awake with eyes open, but she does not follow much. She still has involuntary twitching movements of the lower jaw at the lower fa cial muscles. PHYSICAL EXAMINATION: VITAL SIGNS: Show temperature 98.7, temperature 98.3, blood pressure 123/82, pulse rate 94, respirat ions 20, pulse oximetry 98% saturation. She is on 30% inhaled oxygen concentration through a long-te rm ventilator support. She seems to be breathing comfortably, synchronized with the ventilator. Her own spontaneous respiratory rate is in the low 20s, usually 22 to 23 per minute. NECK: Tracheal secretions are moderate. No bleeding seen. HEART: Irregular rhythm showing atrial fibrillation with controlled ventricular rate. CHEST: Breath sounds are heard bilaterally, diminished in the lower lung corona with a few intermitt ent rales or rhonchi. ABDOMEN: Soft, no distention seen. She is tolerating NG tube feedings. She is scheduled to have a swallow evaluation today per nursing staff. EXTREMITIES: Show no pedal edema. SCDs have been applied on both the lower legs. INTAKE: 900 mL, output is 1100 mL. No lab tests results are available today. ASSESSMENT AND PLAN: 1. Chronic ventilator dependent respiratory failure. 2. Healthcare-acquired pneumonia. 3. Multiple acute cerebral infarcts. 4. Acute encephalopathy. 5. New onset seizures. 6. Advanced chronic obstructive lung disease. 7. Congestive heart failure, diastolic. 8. Chronic atrial fibrillation. 9. History of pulmonary fibrosis. 10. Urosepsis secondary to Klebsiella pneumoniae. 11. Chronic kidney disease. 12. Chronic anemia with thrombocytopenia. 13. Superficial venous thrombosis in both the upper extremities. PLAN: 1. Continue long-term ventilator support. 2. Continue bronchodilator inhalation therapy to maintain the pulmonary hygiene and clear the secret ions. 3. Continue antibiotics per infectious disease senior financial consultant. As of now, she is on Maxipime. 4. Continue inhaled steroids. 5. Continue anticonvulsant medications per neurology. She is on Dilantin. 6. Continue NG tube feedings. 7. Continue GI prophylaxis. 8. Continue anticoagulant prophylaxis for long-term, and we will follow. 9. Chronic atrial fibrillation. 10. Swallow evaluation today. Dictated By: KORTNEY GAMEZ MD SR/MONROE Conf#: [id number] [facility]#: [id number] CC: ROSALVA SANCHES MD;*End*
--- NOTE | 2018-11-06 12:34 | PN ---
DATE: 11/06/2018 SUBJECTIVE: The patient is stable. No events overnight. No fevers, chills, nausea, vomiting. No s hortness of breath. OBJECTIVE: VITAL SIGNS: Blood pressure is 123/82, pulse 74, respirations 20, temperature 98.3. HEENT: Head is normocephalic. NECK: Supple. HEART: Regular rate. LUNGS: Show diminished breath sounds at the base. ABDOMEN: Soft, nontender to palpation without rebound or guarding. EXTREMITIES: Negative for clubbing, cyanosis. No edema. DERMATOLOGIC: No rashes. MUSCULOSKELETAL: No joint effusions. NEUROLOGIC: No change in exam. MEDICATIONS: Have been reviewed. LABORATORY DATA: From 11/05/2018 was reviewed. ASSESSMENT AND PLAN: 1. Nonoliguric kidney injury on top of chronic kidney disease with previous baseline creatinine of 1 .5 mg/dL. Etiology of acute kidney injury is secondary to hemodynamics. The patient's renal functio n is currently below baseline. Continue current treatment plans, supportive care, renally dose medic ations. 2. Hypernatremia, improved. 3. Acute diastolic heart failure. The patient is clinically improving. Continue diuretic therapy. Monitor renal function and electrolytes closely. 4. Anemia. Monitor hemoglobin and hematocrit levels. 5. Mineral bone disorder. Monitor calcium and phosphorus level. 6. Hypomagnesemia. Continue to monitor and replete as needed. 7. Atrial fibrillation. Continue current medical management. 8. Ventilator dependent respiratory failure. The patient's vent settings and ABG was reviewed. Con tinue to monitor. Follow up with pulmonary. 9. Dysphagia. Continue tube feeding. 10. Seizure disorder. Continue medical management. 11. Encephalopathy. 11. Sepsis. The patient is completing antibiotic course. Dictated By: RAJINDER ATWOOD DO NR/NTS Conf#: [id number] DID#: [id number] CC: ROSALVA SANCHES MD; MENDEL FIELDS MD;*End*
--- NOTE | 2018-11-06 12:35 | CONS ---
Date/Time of Note Date/Time of Note DATE: 11/06/18 TIME: 12:33 Assessment/Plan Assessment/Plan Assessment/Plan 1. Atrial fibrillation with a rapid ventricular response.-now improved HR s/p IVP digoxin doses x 2 - In A. FIB - rate controled - better overall - stable 2. Abnormal electrocardiogram with ST depressions during atrial fibrillation with rapid ventricular response- resume anti-coagultion - no signs of bleeding. Stable. 3. Altered mental state/encephalopathy - stable - more alert now - more agitated con't pain Rx. Still confused. 4. Possible seizure-like activity - nio new episodes now 5. Congestive heart failure, diastolic, ACUTE - diuresis as needed, responds to lasix. 6. Hypertension. 7. Urinary tract infection- on anti-Bx now. 8. Renal failure. 9. Leukocytosis- on anti-bx, will monitor clinically - no new fever Result Diagram: 11/05/18 0603 11/06/18 1031 Results 24hrs Laboratory Tests Test 11/06/18 10:31 Sodium Level 137 Potassium Level 4.7 Chloride Level 102 Carbon Dioxide Level 27 Anion Gap 8 Blood Urea Nitrogen 40 H Creatinine 1.13 H Est Glomerular Filtrat Rate mL/min Glucose Level 102 Calcium Level 7.6 L Phosphorus Level 3.7 Magnesium Level 2.0 Phenytoin (Dilantin) Level 6.9 L Consultation Date/Type/Reason Admit Date/Time Oct 27, 2018 at 08:14 Initial Consult Date 10/28/18 Requesting Provider: JAYLEN LUGO MD 24 HR Interval Summary Free Text/Dictation Overall stable - responded to gentle diuresis - still confused. ROS: No fever, no chills, no nausea, no vomiting, no diarrhea/constipation - per nurse Exam/Review of Systems Vital Signs Vitals Vital Signs Date Temp Pulse Resp B/P (MAP) Pulse Ox O2 O2 Flow FiO2 Time Delivery Rate 11/06/18 87 12:21 11/06/18 98.3 20 115/56 100 11:17 (75) 11/06/18 30 11:15 11/02/18 Mechanical 15:05 Ventilator Intake and Output 11/05/18 11/05/18 11/06/18 1515:00 23:00 07:00 IntakeIntake Total 900 ml OutputOutput Total 1100 ml BalanceBalance -200 ml Exam General: WN/WD/NAD, AOx 0 confused HEENT: Unicetric/atraumatic/EOMI (does not follow commands) NECK: trace Lymph: no lymphadenopathy HEART: regular with no S3, II/ systolic murmur at apex LUNGS: Coarse sounds ABD: soft, NT, ND, +BS : Intact Neuro: non focal SKIN: chronic changes EXT: less edema Medications Medications Current Medications Metoprolol Tartrate (Lopressor) 5 mg Q4H PRN IV HR>110 Hold SBP<100 Last administered on 10/28/18 05:38; Admin Dose 5 MG; Start 10/27/18 at 13:30 Cefepime HCl 50 ml @ 100 mls/hr DAILY IVPB Last administered on 11/06/18 08:53; Admin Dose 100 MLS/HR; Start 10/28/18 at 09:00 Acetaminophen (Tylenol Supp) 650 mg Q6H PRN [place] FEVER GREATER THAN 100.6 Last administered on 10/28/18 03:07; Admin Dose 650 MG; Start 10/28/18 at 02:30 Hydralazine HCl (Apresoline) 10 mg Q4H PRN IV SBP>170; Start 10/28/18 at 11:00 Mupirocin (Bactroban) 1 applic BID TOP Last administered on 11/06/18 08:55; Admin Dose 1 APPLIC; Start 10/28/18 at 21:00 Levalbuterol (Xopenex Neb) 1.25 mg Q6H RESP THERAPY HHN Last administered on 11/06/18 07:58; Admin Dose 1.25 MG; Start 10/29/18 at 08:00 Budesonide (Pulmicort (Neb)) 0.5 mg BID RESP THERAPY HHN Last administered on 11/06/18 08:10; Admin Dose 0.5 MG; Start 10/29/18 at 09:00 Ipratropium [place] (Atrovent 0.02% (Neb)) 0.5 mg Q6H RESP THERAPY HHN Last administered on 11/06/18 07:58; Admin Dose 0.5 MG; Start 10/29/18 at 08:00 Lansoprazole (Prevacid) 30 mg DAILY@06 GTB Last administered on 11/06/18 05:24; Admin Dose 30 MG; Start 10/31/18 at 06:00 Metoprolol Tartrate (Lopressor) 25 mg BID PO Last administered on 11/06/18 08:54; Admin Dose 25 MG; Start 10/31/18 at 12:00 Sodium Phosphate (Neutra-Phos) 250 mg BID PO Last administered on 11/06/18 08:53; Admin Dose 250 MG; Start 11/01/18 at 09:00 Apixaban (Eliquis) 2.5 mg BID PO Last administered on 11/06/18 08:54; Admin Dose 2.5 MG; Start 11/02/18 at 09:00 Phenytoin (Dilantin) 200 mg Q12 IV Last administered on 11/06/18 08:53; Admin Dose 200 MG; Start 11/01/18 at 21:00 Furosemide (Lasix) 20 mg BID DIURETICS IV Last administered on 11/06/18 05:31; Admin Dose 20 MG; Start 11/02/18 at 18:00 Phenytoin (Dilantin) 250 mg DAILY@1300 IV Last administered on 11/05/18 13:00; Admin Dose 250 MG; Start 11/03/18 at 13:00 Trimethoprim/ Sulfamethoxazole (Bactrim (Ds)) 1 tab BID NGT Last administered on 11/06/18 08:54; Admin Dose 1 TAB; Start 11/03/18 at 21:00 Morphine Sulfate (morphine) 15 mg Q4H PRN PO SEVERE PAIN LEVEL 7-10; Start 11/04/18 at 14:30 Lorazepam (Ativan) 1 mg Q6H PRN IV SEIZURES; Start 11/04/18 at 15:00 Lorazepam (Ativan) 1 mg Q6H PRN PO ANXIETY; Start 11/04/18 at 15:00 Docusate Sodium (Colace Liquid Cup) 100 mg BID NGT Last administered on 11/06/18 08:54; Admin Dose 100 MG; Start 11/04/18 at 21:00 Bisacodyl (Dulcolax Supp) 10 mg DAILY PRN [place] CONSTIPATION Last administered on 11/05/18 12:21; Admin Dose 10 MG; Start 11/05/18 at 11:30 KINGSTON HEARD MD Nov 06, 2018 12:35
[2018-11-06] MEDS ORDERED: PHENYTOIN (100 MG/4 ML) CUP NGT SCH (13:00)
--- NOTE | 2018-11-06 13:19 | CONS ---
Date/Time of Note Date/Time of Note DATE: 11/06/18 TIME: 13:19 Assessment/Plan Assessment/Plan Hospital Course Subjective: All noted, looks comfortable, no fevers overnight BUN 40 creatinine 1.13 Microbiology: Endotracheal aspirate growing Pseudomonas, procidentia and Stenotrophomonas maltophilia Antimicrobials: Bactrim, cefepime Indwelling: Tracheostomy, NG tube, Damon catheter, peripheral IV Physical examination: Chronically ill-appearing elderly woman who is awake nonverbal noncommunicative and in no distress. Head atraumatic normocephalic sclera nonicteric. Neck is supple, tracheostomy present. Chest rise symmetrical, breath sounds diminished bases. Heart: S1-S2. Abdomen soft bowel sounds present. Extremities with trace edema. Assessment: 1. Acute encephalopathy secondary to CVA 2. Urinary tract infection 3. Seizure disorder/status epilepticus 4. Bacteremia, consistent with contaminant 5. MRSA nares colonization 6. Atrial fibrillation 7. Healthcare associated pneumonia 8. Bilateral superficial venous thrombus within the cephalic veins. Plan: Remains stable, renal function is getting worse patient had been afebrile without leukocytosis, we will will discontinue antibiotics and observe Result Diagram: 11/05/18 0603 11/06/18 1031 Results 24hrs Laboratory Tests Test 11/06/18 10:31 Sodium Level 137 Potassium Level 4.7 Chloride Level 102 Carbon Dioxide Level 27 Anion Gap 8 Blood Urea Nitrogen 40 H Creatinine 1.13 H Est Glomerular Filtrat Rate mL/min Glucose Level 102 Calcium Level 7.6 L Phosphorus Level 3.7 Magnesium Level 2.0 Phenytoin (Dilantin) Level 6.9 L Consultation Date/Type/Reason Admit Date/Time Oct 27, 2018 at 08:14 Initial Consult Date 10/28/18 Type of Consult ID Requesting Provider: JAYLEN LUGO MD Exam/Review of Systems Vital Signs Vitals Vital Signs Date Temp Pulse Resp B/P (MAP) Pulse Ox O2 O2 Flow FiO2 Time Delivery Rate 11/06/18 87 12:21 11/06/18 98.3 20 115/56 100 11:17 (75) 11/06/18 30 11:15 11/02/18 Mechanical 15:05 Ventilator Intake and Output 11/05/18 11/05/18 11/06/18 1515:00 23:00 07:00 IntakeIntake Total 900 ml OutputOutput Total 1100 ml BalanceBalance -200 ml Medications Medications Current Medications Metoprolol Tartrate (Lopressor) 5 mg Q4H PRN IV HR>110 Hold SBP<100 Last administered on 10/28/18 05:38; Admin Dose 5 MG; Start 10/27/18 at 13:30 Cefepime HCl 50 ml @ 100 mls/hr DAILY IVPB Last administered on 11/06/18 08:53; Admin Dose 100 MLS/HR; Start 10/28/18 at 09:00 Acetaminophen (Tylenol Supp) 650 mg Q6H PRN [place] FEVER GREATER THAN 100.6 Last administered on 10/28/18 03:07; Admin Dose 650 MG; Start 10/28/18 at 02:30 Hydralazine HCl (Apresoline) 10 mg Q4H PRN IV SBP>170; Start 10/28/18 at 11:00 Mupirocin (Bactroban) 1 applic BID TOP Last administered on 11/06/18 08:55; Admin Dose 1 APPLIC; Start 10/28/18 at 21:00 Levalbuterol (Xopenex Neb) 1.25 mg Q6H RESP THERAPY HHN Last administered on 11/06/18 07:58; Admin Dose 1.25 MG; Start 10/29/18 at 08:00 Budesonide (Pulmicort (Neb)) 0.5 mg BID RESP THERAPY HHN Last administered on 11/06/18 08:10; Admin Dose 0.5 MG; Start 10/29/18 at 09:00 Ipratropium [place] (Atrovent 0.02% (Neb)) 0.5 mg Q6H RESP THERAPY HHN Last administered on 11/06/18 07:58; Admin Dose 0.5 MG; Start 10/29/18 at 08:00 Lansoprazole (Prevacid) 30 mg DAILY@06 GTB Last administered on 11/06/18 05:24; Admin Dose 30 MG; Start 10/31/18 at 06:00 Metoprolol Tartrate (Lopressor) 25 mg BID PO Last administered on 11/06/18 08:54; Admin Dose 25 MG; Start 10/31/18 at 12:00 Sodium Phosphate (Neutra-Phos) 250 mg BID PO Last administered on 11/06/18 08:53; Admin Dose 250 MG; Start 11/01/18 at 09:00 Apixaban (Eliquis) 2.5 mg BID PO Last administered on 11/06/18 08:54; Admin Dose 2.5 MG; Start 11/02/18 at 09:00 Phenytoin (Dilantin) 200 mg Q12 IV Last administered on 11/06/18 08:53; Admin Dose 200 MG; Start 11/01/18 at 21:00 Furosemide (Lasix) 20 mg BID DIURETICS IV Last administered on 11/06/18 05:31; Admin Dose 20 MG; Start 11/02/18 at 18:00 Phenytoin (Dilantin) 250 mg DAILY@1300 IV Last administered on 11/05/18 13:00; Admin Dose 250 MG; Start 11/03/18 at 13:00 Trimethoprim/ Sulfamethoxazole (Bactrim (Ds)) 1 tab BID NGT Last administered on 11/06/18 08:54; Admin Dose 1 TAB; Start 11/03/18 at 21:00 Morphine Sulfate (morphine) 15 mg Q4H PRN PO SEVERE PAIN LEVEL 7-10; Start 11/04/18 at 14:30 Lorazepam (Ativan) 1 mg Q6H PRN IV SEIZURES; Start 11/04/18 at 15:00 Lorazepam (Ativan) 1 mg Q6H PRN PO ANXIETY; Start 11/04/18 at 15:00 Docusate Sodium (Colace Liquid Cup) 100 mg BID NGT Last administered on 11/06/18at 08:54; Admin Dose 100 MG; Start 11/04/18 at 21:00 Bisacodyl (Dulcolax Supp) 10 mg DAILY PRN [place] CONSTIPATION Last administered on 11/05/18at 12:21; Admin Dose 10 MG; Start 11/05/18 at 11:30 DEBO UMANA NP Nov 06, 2018 13:19
--- NOTE | 2018-11-06 14:16 | CONS ---
Assessment/Plan Assessment/Plan Hospital Course A: 73 yo F with reported Hx of afib, HTN, and other comorbidities...who presents with ams, tachyarrhythmia, and involuntary muscle jerking...for which neurology is consulted. The clinical picture is consistent w/ status epilepticus. The pt was noted to be in afib with RVR on readmission, which raises concern for superimposed acute stroke. Encephalitis is unlikely.. 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 EEG is notable for frequent right hemispheric epileptiform discharges, which is clinically consistent with status epilepticus. Echo is unrevealing. P: Repeat CTH for surveillance Continue maintenance dilantin 200/250/200 for now. Titrate PRN to goal level 10- 20 Ativan iv for prolonged seizure > 5min or for cluster Continue Lipitor for secondary stroke prevention Eliquis OK for the same Other medical management and supportive care per primary Will follow clinically Result Diagram: 11/05/18 0603 11/06/18 1031 Results 24hrs Laboratory Tests Test 11/06/18 10:31 Sodium Level 137 Potassium Level 4.7 Chloride Level 102 Carbon Dioxide Level 27 Anion Gap 8 Blood Urea Nitrogen 40 H Creatinine 1.13 H Est Glomerular Filtrat Rate mL/min Glucose Level 102 Calcium Level 7.6 L Phosphorus Level 3.7 Magnesium Level 2.0 Phenytoin (Dilantin) Level 6.9 L Consultation Date/Type/Reason Admit Date/Time Oct 27, 2018 at 08:14 Type of Consult Neurology Requesting Provider: JAYLEN LUGO MD Date/Time of Note DATE: 11/06/18 TIME: 14:16 24 HR Interval Summary Free Text/Dictation Continues telemetry monitoring. No acute events or seizures reported. Subjective hx not possible: pt non-verbal Exam Vital Signs Vitals Vital Signs Date Temp Pulse Resp B/P (MAP) Pulse Ox O2 O2 Flow FiO2 Time Delivery Rate 11/06/18 87 12:21 11/06/18 98.3 20 115/56 100 11:17 (75) 11/06/18 30 11:15 11/02/18 Mechanical 15:05 Ventilator Intake and Output 11/05/18 11/05/18 11/06/18 1414:59 22:59 06:59 IntakeIntake Total 900 ml OutputOutput Total 1100 ml BalanceBalance -200 ml Exam PE: Gen Appearance: No Apparent Distress HEENT: Has trach Cardiovascular: SR on telemetry Abdomen: Soft Extremities: Dry NE: The patient was awake though nonverbal. Was blinking spontaneously. The pt did not track or follow commands. Cranial nerve examination was limited by mental status. Pupils were equal, round and briskly reactive to light. There was no afferent pupillary defect. Funduscopic examination was limited. Face was grossly symmetric, w/ a present cough/gag reflex. Tone was increased in her upper extremities . Muscle bulk was slightly diminished. I did not see fasciculations. The patient withdrew her extremities to noxious stimuli. Coordination and gait testing was limited by mental status. Arm and leg reflexes were symmetric. Doshi's sign was absent. Plantar responses were flexor. JOE WYATT NP Nov 06, 2018 14:16 CHRISTIANA LARSON Nov 07, 2018 06:01
[2018-11-06] MEDS: PHENYTOIN 250 MG INJ IV SCH (15:51)
[2018-11-06] MEDS ORDERED: PHENYTOIN 1,000 MG in SOD CHLORIDE 0.9% 100 ML IV ONE (17:30)
[2018-11-06] MEDS ORDERED: LIDOCAINE 1% (MPF) 5 ML VIAL SC ONE (21:00)
[2018-11-07] VITALS (24 sets, daily range): BP systolic 103–132; BP diastolic 51–62; PULSE 64–187; RESP 16–26
[2018-11-07] MEDS: IPRATROPIUM (NEB) 0.5 MG/2.5 ML AMP HHN SCH ×4 (01:00→20:12)
[2018-11-07] MEDS: LEVALBUTEROL (NEB) 1.25 MG/0.5 ML AMP HHN SCH ×4 (01:00→20:12)
[2018-11-07] MEDS: LANSOPRAZOLE 30 MG CAP GTB SCH (06:56)
[2018-11-07] MEDS: FUROSEMIDE 20 MG INJ IV SCH (06:56)
[2018-11-07] MEDS: BUDESONIDE (NEB) 0.5MG/2ML AMP HHN SCH ×2 (08:14→20:12)
[2018-11-07] MEDS: DOCUSATE SODIUM 10 MG/ML (10ML CUP) NGT SCH ×2 (08:47→22:12)
[2018-11-07] MEDS: NEUTRA-PHOS 250 MG PACKET PO SCH ×2 (08:47→22:14)
[2018-11-07] MEDS: PHENYTOIN 100 MG INJ IV SCH ×2 (08:47→22:13)
[2018-11-07] MEDS: APIXABAN 5 MG TABLET PO SCH ×2 (08:48→22:13)
[2018-11-07] MEDS: MUPIROCIN 2% 22 GM OINT TOP SCH ×2 (08:48→22:15)
[2018-11-07] MEDS: BALSAM PERU/CASTOR OIL 60 GM TUBE TOP SCH (08:49)
[2018-11-07] MEDS: METOPROLOL 25 MG TAB PO SCH ×2 (08:51→21:00)
--- NOTE | 2018-11-07 10:09 | PN ---
DATE: 11/07/2018 SUBJECTIVE: The patient is stable, no events overnight. OBJECTIVE: VITAL SIGNS: Blood pressure is 132/60, pulse 75, respirations 66, temperature 97.8. HEENT: Head is normocephalic. NECK: Supple. HEART: Regular rate. LUNGS: Diminished breath sounds at the base. ABDOMEN: Soft, nontender to palpation. No rebound or guarding. EXTREMITIES: Negative for clubbing, cyanosis. Trace edema. DERMATOLOGIC: No rashes. MUSCULOSKELETAL: No joint effusions. NEUROLOGIC: No change in exam. MEDICATIONS: The patient's medications have been reviewed. LABORATORY DATA: From 11/06/2018 was reviewed. Laboratory data from 11/07/2018 is pending. ASSESSMENT AND PLAN: 1. Nonoliguric acute kidney injury on top of chronic kidney disease with previous baseline creatinin e of 1.5 mg/dL. Etiology of acute kidney injury is secondary to hemodynamics. The patient's renal f unction is improved and fluctuating. We will continue to monitor creatinine closely. If renal funct ion should further decline, will deescalate diuretic therapy. 2. Hypernatremia, improved. Continue free water flushes. 3. Acute diastolic heart failure. The patient is clinically improving. Continue current management . Continue diuretic therapy. 4. Anemia. Monitor hemoglobin and hematocrit levels. 4. Mineral bone disorder, monitor calcium and phosphorus levels. 5. Hypomagnesemia. Continue to monitor as needed. 6. Atrial fibrillation. Continue current medical management. 7. Ventilator dependent respiratory failure. Vent settings and arterial blood gas was reviewed. Co ntinue to monitor. 8. Dysphagia. Continue tube feeding. 9. Seizure disorder. Continue medical management. 10. Sepsis. The patient has completed antibiotic course. Continue to monitor. Dictated By: RAJINDER ATWOOD DO NR/NTS Conf#: [id number] DID#: [id number] CC: ROSALVA SANCHES MD;*End*
--- NOTE | 2018-11-07 10:54 | PN ---
Date/Time of Note Date/Time of Note DATE: 11/07/18 TIME: 10:53 Assessment/Plan VTE Prophylaxis Risk score (from [facility])>0 risk: 9 SCD applied (from [facility]): Yes Pharmacological prophylaxis: LMWH Lines/Catheters IV Catheter Type (from [facility]): Peripheral IV Urinary Cath still in place: Yes Reason Cath still needed: skin wounds contaminated by urine Assessment/Plan Hospital Course 1. Acute encephalopathy. - neurology follows; EEG done 2. Fever and leukocytosis with positive blood culture. Continue IV vancomycin and cefepime. Further recommendation will depend on patient's hospital course and recommendation from Dr. Melendez. 3. Chronic obstructive pulmonary disease. Continue breathing treatment. 4. Paroxysmal atrial fibrillation. The patient is currently in atrial fibrillation. The patient is on metoprolol on p.r.n. basis. The patient is unable to take anything p.o. since she is encephalopathic. The patient does not have a G-tube or NG tube. - CVA prophylaxis- Lovenox based on creatinine - GI prophylaxis, continue Protonix. Result Diagram: 11/05/18 0603 11/06/18 1031 Results 24hrs Laboratory Tests Test 11/07/18 05:58 Phenytoin (Dilantin) Level 5.1 L Subjective 24 Hr Interval Summary Free Text/Dictation Patient has eyes open but not verbally responsive Exam/Review of Systems Vital Signs Vitals Vital Signs Date Temp Pulse Resp B/P (MAP) Pulse Ox O2 O2 Flow FiO2 Time Delivery Rate 11/07/18 97.6 80 22 115/62 96 Mechanical 08:56 (79) Ventilator Trach Collar 11/07/18 30 08:13 Intake and Output 11/06/18 11/06/18 11/07/18 1515:00 23:00 07:00 IntakeIntake Total 1000 ml OutputOutput Total 950 ml BalanceBalance 50 ml Exam Constitutional: well developed Head: normocephalic, atraumatic Neck: supple Respiratory: diminished breath sounds Cardiovascular: regular rate and rhythm Gastrointestinal: soft, non-tender Extremities: normal pulses Medications Medications Current Medications Metoprolol Tartrate (Lopressor) 5 mg Q4H PRN IV HR>110 Hold SBP<100 Last administered on 10/28/18at 05:38; Admin Dose 5 MG; Start 10/27/18 at 13:30 Acetaminophen (Tylenol Supp) 650 mg Q6H PRN [place] FEVER GREATER THAN 100.6 Last administered on 10/28/18 03:07; Admin Dose 650 MG; Start 10/28/18 at 02:30 Hydralazine HCl (Apresoline) 10 mg Q4H PRN IV SBP>170; Start 10/28/18 at 11:00 Mupirocin (Bactroban) 1 applic BID TOP Last administered on 11/07/18 08:48; Admin Dose 1 APPLIC; Start 10/28/18 at 21:00 Levalbuterol (Xopenex Neb) 1.25 mg Q6H RESP THERAPY HHN Last administered on 11/07/18 08:14; Admin Dose 1.25 MG; Start 10/29/18 at 08:00 Budesonide (Pulmicort (Neb)) 0.5 mg BID RESP THERAPY HHN Last administered on 11/07/18 08:14; Admin Dose 0.5 MG; Start 10/29/18 at 09:00 Ipratropium [place] (Atrovent 0.02% (Neb)) 0.5 mg Q6H RESP THERAPY HHN Last administered on 11/07/18 08:14; Admin Dose 0.5 MG; Start 10/29/18 at 08:00 Lansoprazole (Prevacid) 30 mg DAILY@06 GTB Last administered on 11/07/18 06:56; Admin Dose 30 MG; Start 10/31/18 at 06:00 Metoprolol Tartrate (Lopressor) 25 mg BID PO Last administered on 11/07/18 08:51; Admin Dose 25 MG; Start 10/31/18 at 12:00 Sodium Phosphate (Neutra-Phos) 250 mg BID PO Last administered on 11/07/18 08:47; Admin Dose 250 MG; Start 11/01/18 at 09:00 Apixaban (Eliquis) 2.5 mg BID PO Last administered on 11/07/18 08:48; Admin Dose 2.5 MG; Start 11/02/18 at 09:00 Phenytoin (Dilantin) 200 mg Q12 IV Last administered on 11/07/18 08:47; Admin Dose 200 MG; Start 11/01/18 at 21:00 Phenytoin (Dilantin) 250 mg DAILY@1300 IV Last administered on 12/26/18at 15:51; Admin Dose 250 MG; Start 11/03/18 at 13:00 Morphine Sulfate (morphine) 15 mg Q4H PRN PO SEVERE PAIN LEVEL 7-10; Start 11/04/18 at 14:30 Lorazepam (Ativan) 1 mg Q6H PRN IV SEIZURES; Start 11/04/18 at 15:00 Lorazepam (Ativan) 1 mg Q6H PRN PO ANXIETY; Start 11/04/18 at 15:00 Docusate Sodium (Colace Liquid Cup) 100 mg BID NGT Last administered on 10/13 05/29at 08:47; Admin Dose 100 MG; Start 11/04/18 at 21:00 Bisacodyl (Dulcolax Supp) 10 mg DAILY PRN [place] CONSTIPATION Last administered on 11/05/18at 12:21; Admin Dose 10 MG; Start 11/05/18 at 11:30 Furosemide (Lasix) 20 mg DAILY IV ; Start 11/08/18 at 09:00 ROSALVA SANCHES Nov 07, 2018 10:54
--- NOTE | 2018-11-07 11:45 | CONS ---
Date/Time of Note Date/Time of Note DATE: 11/07/18 TIME: 11:40 Assessment/Plan Assessment/Plan Hospital Course IMPRESSION: 1. Atrial fibrillation with a rapid ventricular response.-now in SR 2. Abnormal electrocardiogram with ST depressions during atrial fibrillation with rapid ventricular response. 3. Altered mental state/encephalopathy. 4. Possible seizure-like activity. 5. Congestive heart failure, diastolic, chronic. 6. Hypertension. 7. Urinary tract infection. 8. Renal failure. 9. Leukocytosis. 10. bacteremia 11.fevers Recc: -Tele -Continue IVP BB PRN -continue PO BB -Continue eliquis -Continue abx's and f/u cx data -IVP PRN hydralazine -Continue bronchodilators -follow MS closely -Continue lasix and follow volume status closely Result Diagram: 11/05/18 0603 11/06/18 1031 Results 24hrs Laboratory Tests Test 11/07/18 05:58 Phenytoin (Dilantin) Level 5.1 L Consultation Date/Type/Reason Admit Date/Time Oct 27, 2018 at 08:14 Initial Consult Date 10/27/18 Type of Consult cardiology Reason for Consultation AF Requesting Provider: JAYLEN LUGO MD Exam/Review of Systems Vital Signs Vitals Vital Signs Date Temp Pulse Resp B/P (MAP) Pulse Ox O2 O2 Flow FiO2 Time Delivery Rate 11/07/18 97.6 76 18 122/59 96 Mechanical 11:19 (80) Ventilator Trach Collar 11/07/18 30 08:13 Intake and Output 11/06/18 11/06/18 11/07/18 1515:00 23:00 07:00 IntakeIntake Total 1000 ml OutputOutput Total 950 ml BalanceBalance 50 ml Exam Review of Systems: CONSTITUTIONAL: No fevers, chills. PULMONARY: No sob CARDIOVASCULAR: No chest pain/palpitations GASTROINTESTINAL: No nausea/vomiting. GENITOURINARY: No hematuria/dysuria. MUSCULOSKELETAL: No myagias/arthalgias. PSYCHIATRIC: The patient denies depression. NEUROLOGIC: encephalopathy Constitutional: alert Psych: no complaints Head: normocephalic Neck: supple Respiratory: diminished breath sounds Cardiovascular: regular rate and rhythm Gastrointestinal: soft, non-tender Musculoskeletal: muscle tone (normal) Extremities: edema (none) Neurological: other (No focal deficits) Medications Medications Current Medications Metoprolol Tartrate (Lopressor) 5 mg Q4H PRN IV HR>110 Hold SBP<100 Last administered on 10/28/18at 05:38; Admin Dose 5 MG; Start 10/27/18 at 13:30 Acetaminophen (Tylenol Supp) 650 mg Q6H PRN [place] FEVER GREATER THAN 100.6 Last administered on 10/28/18 03:07; Admin Dose 650 MG; Start 10/28/18 at 02:30 Hydralazine HCl (Apresoline) 10 mg Q4H PRN IV SBP>170; Start 10/28/18 at 11:00 Mupirocin (Bactroban) 1 applic BID TOP Last administered on 11/07/18 08:48; Admin Dose 1 APPLIC; Start 10/28/18 at 21:00 Levalbuterol (Xopenex Neb) 1.25 mg Q6H RESP THERAPY HHN Last administered on 11/07/18 08:14; Admin Dose 1.25 MG; Start 10/29/18 at 08:00 Budesonide (Pulmicort (Neb)) 0.5 mg BID RESP THERAPY HHN Last administered on 11/07/18 08:14; Admin Dose 0.5 MG; Start 10/29/18 at 09:00 Ipratropium [place] (Atrovent 0.02% (Neb)) 0.5 mg Q6H RESP THERAPY HHN Last administered on 11/07/18 08:14; Admin Dose 0.5 MG; Start 10/29/18 at 08:00 Lansoprazole (Prevacid) 30 mg DAILY@06 GTB Last administered on 11/07/18 06:56; Admin Dose 30 MG; Start 10/31/18 at 06:00 Metoprolol Tartrate (Lopressor) 25 mg BID PO Last administered on 11/07/18 08:51; Admin Dose 25 MG; Start 10/31/18 at 12:00 Sodium Phosphate (Neutra-Phos) 250 mg BID PO Last administered on 11/07/18 08:47; Admin Dose 250 MG; Start 11/01/18 at 09:00 Apixaban (Eliquis) 2.5 mg BID PO Last administered on 11/07/18 08:48; Admin Dose 2.5 MG; Start 11/02/18 at 09:00 Phenytoin (Dilantin) 200 mg Q12 IV Last administered on 11/07/18at 08:47; Admin Dose 200 MG; Start 11/01/18 at 21:00 Phenytoin (Dilantin) 250 mg DAILY@1300 IV Last administered on 11/06/18at 15:51; Admin Dose 250 MG; Start 11/03/18 at 13:00 Morphine Sulfate (morphine) 15 mg Q4H PRN PO SEVERE PAIN LEVEL 7-10; Start 11/04/18 at 14:30 Lorazepam (Ativan) 1 mg Q6H PRN IV SEIZURES; Start 11/04/18 at 15:00 Lorazepam (Ativan) 1 mg Q6H PRN PO ANXIETY; Start 11/04/18 at 15:00 Docusate Sodium (Colace Liquid Cup) 100 mg BID NGT Last administered on 11/07/18at 08:47; Admin Dose 100 MG; Start 11/04/18 at 21:00 Bisacodyl (Dulcolax Supp) 10 mg DAILY PRN [place] CONSTIPATION Last administered on 11/05/18at 12:21; Admin Dose 10 MG; Start 11/05/18 at 11:30 Furosemide (Lasix) 20 mg DAILY IV ; Start 11/08/18 at 09:00 LUIS FERGUSON Nov 07, 2018 11:45
--- NOTE | 2018-11-07 12:11 | PN ---
DATE: 11/07/2018 SUBJECTIVE: The patient's general condition is same. She seems to be awake. Her eyes are open, but she does not make much of an eye contact and does not follow when spoken to. Involuntary movements in the lower jaw and the lower face seem to be getting better. She is breathing comfortably with the long-term ventilator support through tracheostomy. PHYSICAL EXAMINATION: VITAL SIGNS: Show temperature 97.6, blood pressure 115/62, pulse rate 80, respirations 22, pulse oxi metry 96% saturation. NECK: Tracheal secretions are clear, moderate in quantity. No bleeding seen. HEART: Atrial fibrillation with controlled ventricular rate. CHEST: Breath sounds are heard bilaterally, somewhat diminished in the lower lung corona with a few intermittent rales and rhonchi. ABDOMEN: Soft, tolerating NG tube feedings. Normal bowel sounds. EXTREMITIES: Show no pedal edema. SCDs have been applied in both the legs. LABORATORY DATA: There are no lab test results available today. MEDICATIONS: Antibiotics, cefepime and Cipro have been discontinued by the infectious disease consul tangeraldine. IMPRESSION: 1. Chronic ventilator dependent respiratory failure. 2. Healthcare-acquired pneumonia. 3. Multiple acute cerebral infarcts. 4. Acute encephalopathy. 5. New onset seizures. 6. Advanced chronic obstructive lung disease. 7. Congestive heart failure, diastolic. 8. Chronic atrial fibrillation. 9. History of pulmonary fibrosis. 10. Urosepsis secondary to Klebsiella pneumoniae. 11. Chronic kidney disease. 12. Chronic anemia and thrombocytopenia. 13. Superficial venous thrombosis in both upper extremities. PLAN: 1. Continue long-term ventilator support. 2. Continue bronchodilator inhalation therapy to maintain pulmonary hygiene and clear the secretions . 3. Continue inhaled steroids. 4. Continue tube feedings. Preferably, G-tube will be better for long-term feeding. 5. Continue anticoagulant prophylaxis for long-term. 6. Continue anticonvulsants per neurology. The patient's pulmonary status seems to have reached plateau and seems to be stable. I will sign off at this time and we will follow on her request. Please call if any significant changes occur in her pulmonary status. Dictated By: KORTNEY GAMEZ MD SR/NTS Conf#: [id number] DID#: [id number] CC: ROSALVA SANCHES MD; MENDEL FIELDS MD;*EndCC*
--- NOTE | 2018-11-07 14:42 | CONS ---
Date/Time of Note Date/Time of Note DATE: 11/07/18 TIME: 14:41 Assessment/Plan Assessment/Plan Hospital Course Subjective: Patient is awake noncommunicative in no distress, no fevers overnight Microbiology: Endotracheal aspirate grew Pseudomonas, procidentia and Stenotrophomonas maltophilia Indwelling: Tracheostomy, NG tube, Damon catheter, peripheral IV Physical examination: Chronically ill-appearing elderly woman who is awake nonverbal noncommunicative and in no distress. Head atraumatic normocephalic sclera nonicteric. Neck is supple, tracheostomy present. Chest rise symmetrical, breath sounds diminished bases. Heart: S1-S2. Abdomen soft bowel sounds present. Extremities with trace edema. Assessment: 1. Acute encephalopathy secondary to CVA 2. Status post urinary tract infection 3. Seizure disorder/status epilepticus 4. Status post bacteremia, consistent with contaminant 5. MRSA nares colonization 6. Atrial fibrillation 7. Status post healthcare associated pneumonia 8. Bilateral superficial venous thrombus within the cephalic veins. Plan: Remains stable, completed antibiotics, continue present care, follow neurology and pulmonary recommendations, repeat cultures prn Result Diagram: 11/05/18 0603 11/06/18 1031 Results 24hrs Laboratory Tests Test 11/07/18 05:58 Phenytoin (Dilantin) Level 5.1 L Consultation Date/Type/Reason Admit Date/Time Oct 27, 2018 at 08:14 Initial Consult Date 10/28/18 Type of Consult ID Requesting Provider: JAYLEN LUGO MD Exam/Review of Systems Vital Signs Vitals Vital Signs Date Temp Pulse Resp B/P (MAP) Pulse Ox O2 O2 Flow FiO2 Time Delivery Rate 11/07/18 97.6 76 18 122/59 96 Mechanical 11:19 (80) Ventilator Trach Collar 11/07/18 30 08:13 Intake and Output 11/06/18 11/06/18 11/07/18 1414:59 22:59 06:59 IntakeIntake Total 1000 ml OutputOutput Total 950 ml BalanceBalance 50 ml Medications Medications Current Medications Metoprolol Tartrate (Lopressor) 5 mg Q4H PRN IV HR>110 Hold SBP<100 Last administered on 10/28/18at 05:38; Admin Dose 5 MG; Start 10/27/18 at 13:30 Acetaminophen (Tylenol Supp) 650 mg Q6H PRN [place] FEVER GREATER THAN 100.6 Last administered on 10/28/18 03:07; Admin Dose 650 MG; Start 10/28/18 at 02:30 Hydralazine HCl (Apresoline) 10 mg Q4H PRN IV SBP>170; Start 10/28/18 at 11:00 Mupirocin (Bactroban) 1 applic BID TOP Last administered on 11/07/18 08:48; Admin Dose 1 APPLIC; Start 10/28/18 at 21:00 Levalbuterol (Xopenex Neb) 1.25 mg Q6H RESP THERAPY HHN Last administered on 11/07/18 13:36; Admin Dose 1.25 MG; Start 10/29/18 at 08:00 Budesonide (Pulmicort (Neb)) 0.5 mg BID RESP THERAPY HHN Last administered on 11/07/18 08:14; Admin Dose 0.5 MG; Start 10/29/18 at 09:00 Ipratropium [place] (Atrovent 0.02% (Neb)) 0.5 mg Q6H RESP THERAPY HHN Last administered on 11/07/18 13:36; Admin Dose 0.5 MG; Start 10/29/18 at 08:00 Lansoprazole (Prevacid) 30 mg DAILY@06 GTB Last administered on 11/07/18 06:56; Admin Dose 30 MG; Start 10/31/18 at 06:00 Metoprolol Tartrate (Lopressor) 25 mg BID PO Last administered on 11/07/18 08:51; Admin Dose 25 MG; Start 10/31/18 at 12:00 Sodium Phosphate (Neutra-Phos) 250 mg BID PO Last administered on 11/07/18 08:47; Admin Dose 250 MG; Start 11/01/18 at 09:00 Apixaban (Eliquis) 2.5 mg BID PO Last administered on 11/07/18 08:48; Admin Dose 2.5 MG; Start 11/02/18 at 09:00 Phenytoin (Dilantin) 200 mg Q12 IV Last administered on 11/07/18 08:47; Admin Dose 200 MG; Start 11/01/18 at 21:00 Phenytoin (Dilantin) 250 mg DAILY@1300 IV Last administered on 11/06/18 15:51; Admin Dose 250 MG; Start 11/03/18 at 13:00 Morphine Sulfate (morphine) 15 mg Q4H PRN PO SEVERE PAIN LEVEL 7-10; Start 11/04/18 at 14:30 Lorazepam (Ativan) 1 mg Q6H PRN IV SEIZURES; Start 11/04/18 at 15:00 Lorazepam (Ativan) 1 mg Q6H PRN PO ANXIETY; Start 11/04/18 at 15:00 Docusate Sodium (Colace Liquid Cup) 100 mg BID NGT Last administered on 11/07/18at 08:47; Admin Dose 100 MG; Start 11/04/18 at 21:00 Bisacodyl (Dulcolax Supp) 10 mg DAILY PRN [place] CONSTIPATION Last administered on 11/05/18at 12:21; Admin Dose 10 MG; Start 11/05/18 at 11:30 Furosemide (Lasix) 20 mg DAILY IV ; Start 11/08/18 at 09:00 DEBO UMANA NP Nov 07, 2018 14:42
--- NOTE | 2018-11-07 14:46 | CONS ---
Assessment/Plan Assessment/Plan Assessment/Plan A: 73 yo F with reported Hx of afib, HTN, and other comorbidities...who presents with ams, tachyarrhythmia, and involuntary muscle jerking...for which neurology is consulted. The clinical picture is consistent w/ status epilepticus. The pt was noted to be in afib with RVR on readmission, which raises concern for superimposed acute stroke. Encephalitis is unlikely.. 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 EEG is notable for frequent right hemispheric epileptiform discharges, which is clinically consistent with status epilepticus. Echo is unrevealing. Repeat CTH is unrevealing. P: D/c dilantin. Load Keppra 1g IV x 1 and start maintenance dose 500 BID Ativan iv for prolonged seizure > 5min or for cluster Continue Lipitor for secondary stroke prevention Eliquis OK for the same Other medical management and supportive care per primary Will follow clinically Result Diagram: 11/05/18 0603 11/06/18 1031 Results 24hrs Laboratory Tests Test 11/07/18 05:58 Phenytoin (Dilantin) Level 5.1 L Consultation Date/Type/Reason Admit Date/Time Oct 27, 2018 at 08:14 Type of Consult Neurology Requesting Provider: JAYLEN LUGO MD Date/Time of Note DATE: 11/07/18 TIME: 14:46 24 HR Interval Summary Free Text/Dictation Continues telemetry monitoring. No acute events or seizures reported. Pt is without complaints at this time. Exam Vital Signs Vitals Vital Signs Date Temp Pulse Resp B/P (MAP) Pulse Ox O2 O2 Flow FiO2 Time Delivery Rate 11/07/18 97.6 76 18 122/59 96 Mechanical 11:19 (80) Ventilator Trach Collar 11/07/18 30 08:13 Intake and Output 11/06/18 11/06/18 11/07/18 1515:00 23:00 07:00 IntakeIntake Total 1000 ml OutputOutput Total 950 ml BalanceBalance 50 ml Exam PE: Gen Appearance: No Apparent Distress HEENT: Has trach Cardiovascular: SR on telemetry Abdomen: Soft Extremities: Dry NE: The patient was awake and alert though nonverbal, d/t trach. Was able to mouth words. Was blinking spontaneously. The pt was able to track and follow simple axial and appendicular commands. Cranial nerve examination was limited by mental status. Pupils were equal, round and briskly reactive to light. There was no afferent pupillary defect. Funduscopic examination was limited. Face was grossly symmetric, w/ a present cough/gag reflex. Tone was increased in her upper extremities . Muscle bulk was slightly diminished. I did not see fasciculations. The patient moved her upper extremities spontaneously and withdrew her lowers extremities to noxious stimuli. Coordination and gait testing was limited by mental status. Arm and leg reflexes were symmetric. Doshi's sign was absent. Plantar responses were flexor. JOE WYATT NP Nov 07, 2018 14:46 CHRISTIANA LARSON Nov 08, 2018 06:17
[2018-11-07] MEDS: PHENYTOIN 250 MG INJ IV SCH (15:00)
[2018-11-08] VITALS (25 sets, daily range): BP systolic 111–130; BP diastolic 55–69; PULSE 58–78; RESP 15–23
[2018-11-08] MEDS: IPRATROPIUM (NEB) 0.5 MG/2.5 ML AMP HHN SCH ×4 (02:01→20:02)
[2018-11-08] MEDS: LEVALBUTEROL (NEB) 1.25 MG/0.5 ML AMP HHN SCH ×4 (02:01→20:02)
[2018-11-08] MEDS: LANSOPRAZOLE 30 MG CAP GTB SCH (04:54)
[2018-11-08] MEDS ORDERED: LEVETIRACETAM 1000 MG (PMX) 100 ML IVPB ONE (06:00)
[2018-11-08] MEDS: BUDESONIDE (NEB) 0.5MG/2ML AMP HHN SCH ×2 (08:01→20:02)
[2018-11-08] MEDS: DOCUSATE SODIUM 10 MG/ML (10ML CUP) NGT SCH ×2 (08:29→20:44)
[2018-11-08] MEDS: APIXABAN 5 MG TABLET PO SCH ×2 (08:29→20:45)
[2018-11-08] MEDS: METOPROLOL 25 MG TAB PO SCH ×2 (08:29→20:45)
[2018-11-08] MEDS: NEUTRA-PHOS 250 MG PACKET PO SCH ×2 (08:29→20:44)
[2018-11-08] MEDS: MUPIROCIN 2% 22 GM OINT TOP SCH ×2 (08:30→20:44)
[2018-11-08] MEDS: BALSAM PERU/CASTOR OIL 60 GM TUBE TOP SCH (08:30)
[2018-11-08] MEDS: FUROSEMIDE 20 MG INJ IV SCH (08:31)
[2018-11-08] MEDS ORDERED: LEVETIRACETAM 500 MG TAB PO SCH (09:00)
--- NOTE | 2018-11-08 11:31 | PN ---
DATE: 11/08/2018 SUBJECTIVE: The patient is stable. No events overnight. No fevers, chills, nausea, vomiting. OBJECTIVE: VITAL SIGNS: Blood pressure is 129/63, pulse 70, respirations 17, temperature 98.2. HEENT: Head is normocephalic. NECK: Supple. HEART: Regular rate. LUNGS: Show diminished breath sounds at the base. ABDOMEN: Soft, nontender to palpation without rebound or guarding. EXTREMITIES: Negative for clubbing, cyanosis. No edema. DERMATOLOGIC: No rashes. MUSCULOSKELETAL: No joint effusion. NEUROLOGIC: No change in exam. MEDICATIONS: Have been reviewed. LABORATORY DATA: Show sodium 139, BUN 44, creatinine 1.23. White count 4.1, hemoglobin 8.6 and plat elet count is 149. ASSESSMENT AND PLAN: 1. Nonoliguric acute kidney injury on top of chronic kidney disease with previous baseline creatinin e of 1.5 mg/dL. Etiology of acute kidney injury is secondary to hemodynamics. The patient's renal f unction is fluctuating, but has declined in the last 2 to 3 days. This is likely due to diuretic the rapy. We will deescalate Lasix, monitor renal function closely, adjust diuretics as needed. 2. Hypernatremia, improved. Continue free water flushes. 3. Acute diastolic heart failure. The patient is clinically improving. Continue current medical ma nagement. 4. Anemia. Monitor hemoglobin and hematocrit levels. 5. Mineral bone disorder. Monitor calcium and phosphorus levels. 6. Hypomagnesemia. Continue to monitor and replete as needed. 7. Atrial fibrillation. Continue medical management. 8. Ventilatory-dependent respiratory failure. Vent settings and ABG was reviewed. Continue to [facility]. Follow up with pulmonary. 9. Dysphagia. Continue tube feeding. 10. Seizure disorder. Continue medical management. 11. Sepsis. The patient is completing antibiotic course. Continue to monitor. 12. Acute cerebrovascular accident. Continue medical management. Follow up with neurology. 13. Acute encephalopathy secondary to cerebrovascular accident. Continue to monitor. Dictated By: RAJINDER ATWOOD DO NR/NTS Conf#: [id number] DID#: [id number] CC: ROSALVA SANCHES MD; MENDEL FIELDS MD;*EndCC*
--- NOTE | 2018-11-08 11:44 | CONS ---
Date/Time of Note Date/Time of Note DATE: 11/08/18 TIME: 11:41 Assessment/Plan Assessment/Plan Hospital Course Subjective: All noted. Patient is awake, in no distress, no fevers overnight Microbiology: Endotracheal aspirate grew Pseudomonas, procidentia and Stenotrophomonas maltophilia Indwelling: Tracheostomy, NG tube, Damon catheter, PICC Physical examination: Chronically ill-appearing elderly woman who is awake nonverbal noncommunicative and in no distress. Head atraumatic normocephalic sclera nonicteric. Neck is supple, tracheostomy present. Chest rise symmetrical, breath sounds diminished bases. Heart: S1-S2. Abdomen soft bowel sounds present. Extremities with trace edema. Assessment: 1. Acute encephalopathy secondary to CVA 2. Status post urinary tract infection 3. Seizure disorder/status epilepticus 4. Status post bacteremia, consistent with contaminant 5. MRSA nares colonization 6. Atrial fibrillation 7. Status post healthcare associated pneumonia 8. Bilateral superficial venous thrombus within the cephalic veins. Plan: Remains stable, off antibiotics, continue present care, follow neurology and pulmonary recommendations, repeat cultures prn Result Diagram: 11/08/18 0525 11/08/18 0525 Results 24hrs Laboratory Tests Test 11/08/18 05:25 White Blood Count 4.1 #L Red Blood Count 2.86 L Hemoglobin 8.6 L Hematocrit 29.7 L Mean Corpuscular Volume 103.8 H Mean Corpuscular Hemoglobin 30.1 Mean Corpuscular Hemoglobin Concent 29.0 L Red Cell Distribution Width 16.1 H Platelet Count 149 # Mean Platelet Volume 11.0 H Immature Granulocytes % 0.500 H Neutrophils % 74.5 Lymphocytes % 19.2 Monocytes % 3.9 Eosinophils % 1.7 Basophils % 0.2 Nucleated Red Blood Cells % 0.0 Immature Granulocytes # 0.020 Neutrophils # 3.1 Lymphocytes # 0.8 Monocytes # 0.2 L Eosinophils # 0.1 Basophils # 0.0 Nucleated Red Blood Cells # 0.0 Sodium Level 139 Potassium Level 4.6 Chloride Level 100 Carbon Dioxide Level 30 Anion Gap 9 Blood Urea Nitrogen 44 H Creatinine 1.23 H Est Glomerular Filtrat Rate mL/min Glucose Level 91 Calcium Level 8.1 L Phosphorus Level 4.0 Magnesium Level 2.0 Consultation Date/Type/Reason Admit Date/Time Oct 27, 2018 at 08:14 Initial Consult Date 10/28/18 Type of Consult ID Requesting Provider: JAYLEN LUGO MD Exam/Review of Systems Vital Signs Vitals Vital Signs Date Temp Pulse Resp B/P (MAP) Pulse Ox O2 O2 Flow FiO2 Time Delivery Rate 11/08/18 98.3 68 15 113/61 98 11:28 (78) 11/08/18 30 05:42 11/08/18 Mechanical 04:42 Ventilator Intake and Output 11/07/18 11/07/18 11/08/18 1515:00 23:00 07:00 IntakeIntake Total 1000 ml 800 ml OutputOutput Total 1700 ml 400 ml BalanceBalance -700 ml 400 ml Medications Medications Current Medications Metoprolol Tartrate (Lopressor) 5 mg Q4H PRN IV HR>110 Hold SBP<100 Last administered on 10/28/18at 05:38; Admin Dose 5 MG; Start 10/27/18 at 13:30 Acetaminophen (Tylenol Supp) 650 mg Q6H PRN [place] FEVER GREATER THAN 100.6 Last administered on 10/28/18 03:07; Admin Dose 650 MG; Start 10/28/18 at 02:30 Hydralazine HCl (Apresoline) 10 mg Q4H PRN IV SBP>170; Start 10/28/18 at 11:00 Mupirocin (Bactroban) 1 applic BID TOP Last administered on 11/08/18 08:30; Admin Dose 1 APPLIC; Start 10/28/18 at 21:00 Levalbuterol (Xopenex Neb) 1.25 mg Q6H RESP THERAPY HHN Last administered on 11/08/18 07:58; Admin Dose 1.25 MG; Start 10/29/18 at 08:00 Budesonide (Pulmicort (Neb)) 0.5 mg BID RESP THERAPY HHN Last administered on 11/08/18 08:01; Admin Dose 0.5 MG; Start 10/29/18 at 09:00 Ipratropium [place] (Atrovent 0.02% (Neb)) 0.5 mg Q6H RESP THERAPY HHN Last administered on 11/08/18 07:58; Admin Dose 0.5 MG; Start 10/29/18 at 08:00 Lansoprazole (Prevacid) 30 mg DAILY@06 GTB Last administered on 12/28/18at 04:54; Admin Dose 30 MG; Start 10/31/18 at 06:00 Metoprolol Tartrate (Lopressor) 25 mg BID PO Last administered on 11/08/18at 0 8:29; Admin Dose 25 MG; Start 10/31/18 at 12:00 Sodium Phosphate (Neutra-Phos) 250 mg BID PO Last administered on 11/08/18 08:29; Admin Dose 250 MG; Start 11/01/18 at 09:00 Apixaban (Eliquis) 2.5 mg BID PO Last administered on 11/08/18 08:29; Admin Dose 2.5 MG; Start 11/02/18 at 09:00 Morphine Sulfate (morphine) 15 mg Q4H PRN PO SEVERE PAIN LEVEL 7-10; Start 11/04/18 at 14:30 Lorazepam (Ativan) 1 mg Q6H PRN IV SEIZURES; Start 11/04/18 at 15:00 Lorazepam (Ativan) 1 mg Q6H PRN PO ANXIETY; Start 11/04/18 at 15:00 Docusate Sodium (Colace Liquid Cup) 100 mg BID NGT Last administered on 11/08/18 08:29; Admin Dose 100 MG; Start 11/04/18 at 21:00 Bisacodyl (Dulcolax Supp) 10 mg DAILY PRN [place] CONSTIPATION Last administered on 11/05/18at 12:21; Admin Dose 10 MG; Start 11/05/18 at 11:30 Furosemide (Lasix) 20 mg DAILY IV Last administered on 11/08/18 08:31; Admin Dose 20 MG; Start 11/08/18 at 09:00 IV Flush (NS 10 ml) 10 ml PRN PRN IV IV PROTOCOL; Start 11/07/18 at 15:00 Levetiracetam (Keppra) 500 mg BID PO Last administered on 11/08/18 08:29; Admin Dose 500 MG; Start 11/08/18 at 09:00 DEBO UMANA NP Nov 08, 2018 11:44
--- NOTE | 2018-11-08 13:30 | CONS ---
Date/Time of Note Date/Time of Note DATE: 11/08/18 TIME: 13:29 Assessment/Plan Assessment/Plan Hospital Course IMPRESSION: 1. Atrial fibrillation with a rapid ventricular response.-now in SR and remains 2. Abnormal electrocardiogram with ST depressions during atrial fibrillation with rapid ventricular response. 3. Altered mental state/encephalopathy. 4. Possible seizure-like activity. 5. Congestive heart failure, diastolic, chronic. 6. Hypertension. 7. Urinary tract infection. 8. Renal failure. 9. Leukocytosis. 10. bacteremia 11.fevers Recc: -Tele -Continue IVP BB PRN -continue PO BB -Continue eliquis -Continue abx's and f/u cx data -IVP PRN hydralazine -Continue bronchodilators -follow MS closely -Continue lasix and follow volume status closely Result Diagram: 11/08/18 0525 11/08/18 0525 Results 24hrs Laboratory Tests Test 11/08/18 05:25 White Blood Count 4.1 #L Red Blood Count 2.86 L Hemoglobin 8.6 L Hematocrit 29.7 L Mean Corpuscular Volume 103.8 H Mean Corpuscular Hemoglobin 30.1 Mean Corpuscular Hemoglobin Concent 29.0 L Red Cell Distribution Width 16.1 H Platelet Count 149 # Mean Platelet Volume 11.0 H Immature Granulocytes % 0.500 H Neutrophils % 74.5 Lymphocytes % 19.2 Monocytes % 3.9 Eosinophils % 1.7 Basophils % 0.2 Nucleated Red Blood Cells % 0.0 Immature Granulocytes # 0.020 Neutrophils # 3.1 Lymphocytes # 0.8 Monocytes # 0.2 L Eosinophils # 0.1 Basophils # 0.0 Nucleated Red Blood Cells # 0.0 Sodium Level 139 Potassium Level 4.6 Chloride Level 100 Carbon Dioxide Level 30 Anion Gap 9 Blood Urea Nitrogen 44 H Creatinine 1.23 H Est Glomerular Filtrat Rate mL/min Glucose Level 91 Calcium Level 8.1 L Phosphorus Level 4.0 Magnesium Level 2.0 Consultation Date/Type/Reason Admit Date/Time Oct 27, 2018 at 08:14 Initial Consult Date 10/27/18 Type of Consult cardiology Reason for Consultation AF Requesting Provider: JAYLEN LUGO MD Exam/Review of Systems Vital Signs Vitals Vital Signs Date Temp Pulse Resp B/P (MAP) Pulse Ox O2 O2 Flow FiO2 Time Delivery Rate 11/08/18 75 19 98 30 13:10 12/28/18 98.3 113/61 11:28 (78) 11/08/18 Mechanical 04:42 Ventilator Intake and Output 11/07/18 11/07/18 11/08/18 1515:00 23:00 07:00 IntakeIntake Total 1000 ml 800 ml OutputOutput Total 1700 ml 400 ml BalanceBalance -700 ml 400 ml Exam Review of Systems: CONSTITUTIONAL: No fevers, chills. PULMONARY: No sob CARDIOVASCULAR: No chest pain/palpitations GASTROINTESTINAL: No nausea/vomiting. GENITOURINARY: No hematuria/dysuria. MUSCULOSKELETAL: No myagias/arthalgias. PSYCHIATRIC: The patient denies depression. NEUROLOGIC: No weakness Constitutional: alert Psych: no complaints Head: normocephalic ENMT: mucosa pink and moist Neck: supple, jvd (9 cm water), other (trached) Respiratory: diminished breath sounds (at bases/B) Cardiovascular: regular rate and rhythm Gastrointestinal: soft, non-tender Musculoskeletal: muscle weakness (generalized) Extremities: edema (none) Medications Medications Current Medications Metoprolol Tartrate (Lopressor) 5 mg Q4H PRN IV HR>110 Hold SBP<100 Last administered on 10/28/18at 05:38; Admin Dose 5 MG; Start 10/27/18 at 13:30 Acetaminophen (Tylenol Supp) 650 mg Q6H PRN [place] FEVER GREATER THAN 100.6 Last administered on 10/28/18at 03:07; Admin Dose 650 MG; Start 10/28/18 at 02:30 Hydralazine HCl (Apresoline) 10 mg Q4H PRN IV SBP>170; Start 10/28/18 at 11:00 Mupirocin (Bactroban) 1 applic BID TOP Last administered on 11/08/18at 08:30; Admin Dose 1 APPLIC; Start 10/28/18 at 21:00 Levalbuterol (Xopenex Neb) 1.25 mg Q6H RESP THERAPY HHN Last administered on 11/08/18at 13:21; Admin Dose 1.25 MG; Start 10/29/18 at 08:00 Budesonide (Pulmicort (Neb)) 0.5 mg BID RESP THERAPY HHN Last administered on 11/08/18at 08:01; Admin Dose 0.5 MG; Start 10/29/18 at 09:00 Ipratropium [place] (Atrovent 0.02% (Neb)) 0.5 mg Q6H RESP THERAPY HHN Last administered on 11/08/18 13:21; Admin Dose 0.5 MG; Start 10/29/18 at 08:00 Lansoprazole (Prevacid) 30 mg DAILY@06 GTB Last administered on 11/08/18 04: 54; Admin Dose 30 MG; Start 10/31/18 at 06:00 Metoprolol Tartrate (Lopressor) 25 mg BID PO Last administered on 11/08/18 08:29; Admin Dose 25 MG; Start 10/31/18 at 12:00 Sodium Phosphate (Neutra-Phos) 250 mg BID PO Last administered on 11/08/18 08:29; Admin Dose 250 MG; Start 11/01/18 at 09:00 Apixaban (Eliquis) 2.5 mg BID PO Last administered on 11/08/18 08:29; Admin Dose 2.5 MG; Start 11/02/18 at 09:00 Morphine Sulfate (morphine) 15 mg Q4H PRN PO SEVERE PAIN LEVEL 7-10; Start at 14:30 Lorazepam (Ativan) 1 mg Q6H PRN IV SEIZURES; Start 11/04/18 at 15:00 Lorazepam (Ativan) 1 mg Q6H PRN PO ANXIETY; Start 11/04/18 at 15:00 Docusate Sodium (Colace Liquid Cup) 100 mg BID NGT Last administered on 11/08/18 08:29; Admin Dose 100 MG; Start 11/04/18 at 21:00 Bisacodyl (Dulcolax Supp) 10 mg DAILY PRN [place] CONSTIPATION Last administered on 11/05/18 12:21; Admin Dose 10 MG; Start 11/05/18 at 11:30 Furosemide (Lasix) 20 mg DAILY IV Last administered on 11/08/18 08:31; Admin Dose 20 MG; Start 11/08/18 at 09:00 IV Flush (NS 10 ml) 10 ml PRN PRN IV IV PROTOCOL; Start 11/07/18 at 15:00 Levetiracetam (Keppra) 500 mg BID PO Last administered on 11/08/18 08:29; Admin Dose 500 MG; Start 11/08/18 at 09:00 LUIS FERGUSON Nov 08, 2018 13:30
--- NOTE | 2018-11-08 13:37 | CONS ---
Assessment/Plan Assessment/Plan Hospital Course A: 73 yo F with reported Hx of afib, HTN, and other comorbidities...who presents with ams, tachyarrhythmia, and involuntary muscle jerking...for which neurology is consulted. The clinical picture is consistent w/ status epilepticus. The pt was noted to be in afib with RVR on readmission, which raises concern for superimposed acute stroke. Encephalitis is unlikely.. 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 EEG is notable for frequent right hemispheric epileptiform discharges, which is clinically consistent with status epilepticus. Echo is unrevealing. Repeat CTH is unrevealing. P: Cont maintenance Keppra 500 BID Ativan iv for prolonged seizure > 5min or for cluster Continue Lipitor for secondary stroke prevention Eliquis OK for the same Other medical management and supportive care per primary Will follow clinically Result Diagram: 11/08/18 0525 11/08/18 0525 Results 24hrs Laboratory Tests Test 11/08/18 05:25 White Blood Count 4.1 #L Red Blood Count 2.86 L Hemoglobin 8.6 L Hematocrit 29.7 L Mean Corpuscular Volume 103.8 H Mean Corpuscular Hemoglobin 30.1 Mean Corpuscular Hemoglobin Concent 29.0 L Red Cell Distribution Width 16.1 H Platelet Count 149 # Mean Platelet Volume 11.0 H Immature Granulocytes % 0.500 H Neutrophils % 74.5 Lymphocytes % 19.2 Monocytes % 3.9 Eosinophils % 1.7 Basophils % 0.2 Nucleated Red Blood Cells % 0.0 Immature Granulocytes # 0.020 Neutrophils # 3.1 Lymphocytes # 0.8 Monocytes # 0.2 L Eosinophils # 0.1 Basophils # 0.0 Nucleated Red Blood Cells # 0.0 Sodium Level 139 Potassium Level 4.6 Chloride Level 100 Carbon Dioxide Level 30 Anion Gap 9 Blood Urea Nitrogen 44 H Creatinine 1.23 H Est Glomerular Filtrat Rate mL/min Glucose Level 91 Calcium Level 8.1 L Phosphorus Level 4.0 Magnesium Level 2.0 Consultation Date/Type/Reason Admit Date/Time Oct 27, 2018 at 08:14 Type of Consult Neurology Requesting Provider: JAYLEN LUGO MD Date/Time of Note DATE: 11/08/18 TIME: 13:37 24 HR Interval Summary Free Text/Dictation Continues telemetry monitoring. No acute events or seizures reported. Subjective hx not possible: pt non-verbal Exam Vital Signs Vitals Vital Signs Date Temp Pulse Resp B/P (MAP) Pulse Ox O2 O2 Flow FiO2 Time Delivery Rate 11/08/18 75 19 98 30 13:10 11/08/18 98.3 113/61 11:28 (78) 11/08/18 Mechanical 04:42 Ventilator Intake and Output 11/07/18 11/07/18 11/08/18 1515:00 23:00 07:00 IntakeIntake Total 1000 ml 800 ml OutputOutput Total 1700 ml 400 ml BalanceBalance -700 ml 400 ml Exam PE: Gen Appearance: No Apparent Distress HEENT: Has trach Cardiovascular: SR on telemetry Abdomen: Soft Extremities: Dry NE: The patient was awake and alert though nonverbal, d/t trach. Jaw tremors were noted, however pt was able to mouth words. Was blinking spontaneously. The pt was able to track and follow simple axial and appendicular commands. Cranial nerve examination was limited by mental status. Pupils were equal, round and briskly reactive to light. There was no afferent pupillary defect. Funduscopic examination was limited. Face was grossly symmetric, w/ a present cough/gag reflex. Tone was increased in her upper extremities . Muscle bulk was slightly diminished. I did not see fasciculations. The patient moved her upper extremities spontaneously and withdrew her lowers extremities to noxious stimuli. Coordination and gait testing was limited by mental status. Arm and leg reflexes were symmetric. Doshi's sign was absent. Plantar responses were flexor. JOE WYATT NP Nov 08, 2018 13:37 CHRISTIANA LARSON Nov 08, 2018 18:55
--- NOTE | 2018-11-08 14:59 | PN ---
Date/Time of Note Date/Time of Note DATE: 11/08/18 TIME: 14:58 Assessment/Plan VTE Prophylaxis [place] [facility] [place] [facility] risk: 11 SCD applied [place] [facility] [place] Yes Pharmacological prophylaxis: LMWH Lines/Catheters IV Catheter Type (from [facility]): PICC Line Central line still needed: Yes Urinary Cath still in place: Yes Reason Cath still needed: skin wounds contaminated by urine Assessment/Plan Hospital Course 1. Acute encephalopathy. - neurology follows; EEG done 2. Fever and leukocytosis with positive blood culture. Continue IV vancomycin and cefepime. Further recommendation will depend on patient's hospital course and recommendation from Dr. Melendez. 3. Chronic obstructive pulmonary disease. Continue breathing treatment. 4. Paroxysmal atrial fibrillation. The patient is currently in atrial fibrillation. The patient is on metoprolol on p.r.n. basis. The patient is unable to take anything p.o. since she is encephalopathic. The patient does not have a G-tube or NG tube. - CVA prophylaxis- Lovenox based on creatinine - GI prophylaxis, continue Protonix. Result Diagram: 11/08/18 0525 11/08/18 0525 Results 24hrs Laboratory Tests Test 11/08/18 05:25 White Blood Count 4.1 #L Red Blood Count 2.86 L Hemoglobin 8.6 L Hematocrit 29.7 L Mean Corpuscular Volume 103.8 H Mean Corpuscular Hemoglobin 30.1 Mean Corpuscular Hemoglobin Concent 29.0 L Red Cell Distribution Width 16.1 H Platelet Count 149 # Mean Platelet Volume 11.0 H Immature Granulocytes % 0.500 H Neutrophils % 74.5 Lymphocytes % 19.2 Monocytes % 3.9 Eosinophils % 1.7 Basophils % 0.2 Nucleated Red Blood Cells % 0.0 Immature Granulocytes # 0.020 Neutrophils # 3.1 Lymphocytes # 0.8 Monocytes # 0.2 L Eosinophils # 0.1 Basophils # 0.0 Nucleated Red Blood Cells # 0.0 Sodium Level 139 Potassium Level 4.6 Chloride Level 100 Carbon Dioxide Level 30 Anion Gap 9 Blood Urea Nitrogen 44 H Creatinine 1.23 H Est Glomerular Filtrat Rate mL/min Glucose Level 91 Calcium Level 8.1 L Phosphorus Level 4.0 Magnesium Level 2.0 Subjective 24 Hr Interval Summary Free Text/Dictation Patient remain unchanged Exam/Review of Systems Vital Signs Vitals Vital Signs Date Temp Pulse Resp B/P (MAP) Pulse Ox O2 O2 Flow FiO2 Time Delivery Rate 11/08/18 75 19 98 30 13:10 11/08/18 98.3 113/61 11:28 (78) 11/08/18 Mechanical 04:42 Ventilator Intake and Output 11/07/18 11/07/18 11/08/18 1515:00 23:00 07:00 IntakeIntake Total 1000 ml 800 ml OutputOutput Total 1700 ml 400 ml BalanceBalance -700 ml 400 ml Exam Constitutional: well developed Head: normocephalic, atraumatic Neck: supple Respiratory: diminished breath sounds Cardiovascular: regular rate and rhythm Gastrointestinal: soft, non-tender Extremities: normal pulses Medications Medications Current Medications Metoprolol Tartrate (Lopressor) 5 mg Q4H PRN IV HR>110 Hold SBP<100 Last administered on 10/28/18at 05:38; Admin Dose 5 MG; Start 10/27/18 at 13:30 Acetaminophen (Tylenol Supp) 650 mg Q6H PRN [place] FEVER GREATER THAN 100.6 Last administered on 10/28/18at 03:07; Admin Dose 650 MG; Start 10/28/18 at 02:30 Hydralazine HCl (Apresoline) 10 mg Q4H PRN IV SBP>170; Start 10/28/18 at 11:00 Mupirocin (Bactroban) 1 applic BID TOP Last administered on 11/08/18 08:30; Admin Dose 1 APPLIC; Start 10/28/18 at 21:00 Levalbuterol (Xopenex Neb) 1.25 mg Q6H RESP THERAPY HHN Last administered on 11/08/18 13:21; Admin Dose 1.25 MG; Start 10/29/18 at 08:00 Budesonide (Pulmicort (Neb)) 0.5 mg BID RESP THERAPY HHN Last administered on 11/08/18 08:01; Admin Dose 0.5 MG; Start 10/29/18 at 09:00 Ipratropium [place] (Atrovent 0.02% (Neb)) 0.5 mg Q6H RESP THERAPY HHN Last administered on 11/08/18 13:21; Admin Dose 0.5 MG; Start 10/29/18 at 08:00 Lansoprazole (Prevacid) 30 mg DAILY@06 GTB Last administered on 11/08/18 04:54; Admin Dose 30 MG; Start 10/31/18 at 06:00 Metoprolol Tartrate (Lopressor) 25 mg BID PO Last administered on 11/08/18 08:29; Admin Dose 25 MG; Start 10/31/18 at 12:00 Sodium Phosphate (Neutra-Phos) 250 mg BID PO Last administered on 11/08/18 08:29; Admin Dose 250 MG; Start 11/01/18 at 09:00 Apixaban (Eliquis) 2.5 mg BID PO Last administered on 11/08/18 08:29; Admin Dose 2.5 MG; Start 11/02/18 at 09:00 Morphine Sulfate (morphine) 15 mg Q4H PRN PO SEVERE PAIN LEVEL 7-10; Start 11/04/18 at 14:30 Lorazepam (Ativan) 1 mg Q6H PRN IV SEIZURES; Start 11/04/18 at 15:00 Lorazepam (Ativan) 1 mg Q6H PRN PO ANXIETY; Start 11/04/18 at 15:00 Docusate Sodium (Colace Liquid Cup) 100 mg BID NGT Last administered on 11/08/18 08:29; Admin Dose 100 MG; Start 11/04/18 at 21:00 Bisacodyl (Dulcolax Supp) 10 mg DAILY PRN [place] CONSTIPATION Last administered on 11/05/18 12:21; Admin Dose 10 MG; Start 11/05/18 at 11:30 Furosemide (Lasix) 20 mg DAILY IV Last administered on 11/08/18 08:31; Admin Dose 20 MG; Start 11/08/18 at 09:00 IV Flush (NS 10 ml) 10 ml PRN PRN IV IV PROTOCOL; Start 11/07/18 at 15:00 Levetiracetam (Keppra) 500 mg BID PO Last administered on 11/08/18 08:29; Admin Dose 500 MG; Start 11/08/18 at 09:00 ROSALVA SANCHES Nov 08, 2018 14:59
[2018-11-08] MEDS: LEVETIRACETAM (100 MG/ML) 5ML CUP GTB SCH (20:44)
[2018-11-09] VITALS (24 sets, daily range): BP systolic 115–155; BP diastolic 60–72; PULSE 68–168; RESP 16–23
[2018-11-09] MEDS: IPRATROPIUM (NEB) 0.5 MG/2.5 ML AMP HHN SCH ×4 (01:23→19:18)
[2018-11-09] MEDS: LEVALBUTEROL (NEB) 1.25 MG/0.5 ML AMP HHN SCH ×4 (01:23→19:18)
[2018-11-09] MEDS: LANSOPRAZOLE 30 MG CAP GTB SCH (05:39)
--- NOTE | 2018-11-09 08:09 | PN ---
Date/Time of Note Date/Time of Note DATE: 11/09/18 TIME: 08:08 Assessment/Plan VTE Prophylaxis Risk score (from Nsg)>0 risk: 11 SCD applied (from Nsg): Yes Pharmacological prophylaxis: other Lines/Catheters IV Catheter Type (from Nrsg): PICC Line Central line still needed: Yes Urinary Cath still in place: Yes Reason Cath still needed: urinary retention Assessment/Plan Hospital Course renal follow up SUBJECTIVE: The patient is stable. No events overnight. No fevers, chills, nausea, vomiting. OBJECTIVE: HEENT: Head is normocephalic. NECK: Supple. HEART: Regular rate. LUNGS: Show diminished breath sounds at the base. ABDOMEN: Soft, nontender to palpation without rebound or guarding. EXTREMITIES: Negative for clubbing, cyanosis. No edema. DERMATOLOGIC: No rashes. MUSCULOSKELETAL: No joint effusion. NEUROLOGIC: No change in exam. MEDICATIONS: Have been reviewed. ASSESSMENT AND PLAN: 1. Nonoliguric acute kidney injury on top of chronic kidney disease with previous baseline creatinine of 1.5 mg/dL. Etiology of acute kidney injury is secondary to hemodynamics. The patient's renal function is fluctuating, but has declined in the last 2 to 3 days. This is likely due to diuretic therapy. We will deescalate Lasix, monitor renal function closely, adjust diuretics as needed. 2. Hypernatremia, improved. Continue free water flushes. 3. Acute diastolic heart failure. The patient is clinically improving. Continue current medical management. 4. Anemia. Monitor hemoglobin and hematocrit levels. 5. Mineral bone disorder. Monitor calcium and phosphorus levels. 6. Hypomagnesemia. Continue to monitor and replete as needed. 7. Atrial fibrillation. Continue medical management. 8. Ventilatory-dependent respiratory failure. Vent settings and ABG was reviewed. Continue to monitor. Follow up with pulmonary. 9. Dysphagia. Continue tube feeding. 10. Seizure disorder. Continue medical management. 11. Sepsis. The patient is completing antibiotic course. Continue to monitor. 12. Acute cerebrovascular accident. Continue medical management. Follow up with neurology. 13. Acute encephalopathy secondary to cerebrovascular accident. Continue to monitor. Result Diagram: 11/08/1825 11/08/18 05 Exam/Review of Systems Vital Signs Vitals Vital Signs Date Temp Pulse Resp B/P (MAP) Pulse Ox O2 O2 Flow FiO2 Time Delivery Rate 11/09/18 63 19 100 30 07:15 11/09/18 98.8 128/68 Mechanical 07:11 (88) Ventilator Intake and Output 11/08/18 11/08/18 11/09/18 1515:00 23:00 07:00 IntakeIntake Total 600 ml 600 ml OutputOutput Total 600 ml BalanceBalance 600 ml 0 ml Medications Medications Current Medications Metoprolol Tartrate (Lopressor) 5 mg Q4H PRN IV HR>110 Hold SBP<100 Last administered on 10/28/18 05:38; Admin Dose 5 MG; Start 10/27/18 at 13:30 Acetaminophen (Tylenol Supp) 650 mg Q6H PRN [place] FEVER GREATER THAN 100.6 Last administered on 10/28/18at 03:07; Admin Dose 650 MG; Start 10/28/18 at 02:30 Hydralazine HCl (Apresoline) 10 mg Q4H PRN IV SBP>170; Start 10/28/18 at 11:00 Mupirocin (Bactroban) 1 applic BID TOP Last administered on 11/08/18at 20:44; Admin Dose 1 APPLIC; Start 10/28/18 at 21:00 Levalbuterol (Xopenex Neb) 1.25 mg Q6H RESP THERAPY HHN Last administered on 11/09/18 07:51; Admin Dose 1.25 MG; Start 10/29/18 at 08:00 Budesonide (Pulmicort (Neb)) 0.5 mg BID RESP THERAPY HHN Last administered on 11/08/18 20:02; Admin Dose 0.5 MG; Start 10/29/18 at 09:00 Ipratropium [place] (Atrovent 0.02% (Neb)) 0.5 mg Q6H RESP THERAPY HHN Last administered on 11/09/18 07:51; Admin Dose 0.5 MG; Start 10/29/18 at 08:00 Lansoprazole (Prevacid) 30 mg DAILY@06 GTB Last administered on 11/09/18 05:39; Admin Dose 30 MG; Start 10/31/18 at 06:00 Metoprolol Tartrate (Lopressor) 25 mg BID PO Last administered on 11/08/18at 20:45; Admin Dose 25 MG; Start 10/31/18 at 12:00 Sodium Phosphate (Neutra-Phos) 250 mg BID PO Last administered on 11/08/18 20:44; Admin Dose 250 MG; Start 11/01/18 at 09:00 Apixaban (Eliquis) 2.5 mg BID PO Last administered on 11/08/18 20:45; Admin Dose 2.5 MG; Start 11/02/18 at 09:00 Morphine Sulfate (morphine) 15 mg Q4H PRN PO SEVERE PAIN LEVEL 7-10; Start 11/04/18 at 14:30 Lorazepam (Ativan) 1 mg Q6H PRN IV SEIZURES; Start 11/04/18 at 15:00 Lorazepam (Ativan) 1 mg Q6H PRN PO ANXIETY; Start 11/04/18 at 15:00 Docusate Sodium (Colace Liquid Cup) 100 mg BID NGT Last administered on 11/08/18 20:44; Admin Dose 100 MG; Start 11/04/18 at 21:00 Bisacodyl (Dulcolax Supp) 10 mg DAILY PRN [place] CONSTIPATION Last administered on 11/05/18at 12:21; Admin Dose 10 MG; Start 11/05/18 at 11:30 Furosemide (Lasix) 20 mg DAILY IV Last administered on 11/08/18 08:31; Admin Dose 20 MG; Start 11/08/18 at 09:00 IV Flush (NS 10 ml) 10 ml PRN PRN IV IV PROTOCOL; Start 11/07/18 at 15:00 Levetiracetam (Keppra Liquid) 500 mg BID GTB Last administered on 11/08/18at 20:44; Admin Dose 500 MG; Start 11/08/18 at 21:00 CLAIRE MARTINEZ DO Nov 09, 2018 08:09
[2018-11-09] MEDS: APIXABAN 5 MG TABLET PO SCH ×2 (09:17→21:57)
[2018-11-09] MEDS: DOCUSATE SODIUM 10 MG/ML (10ML CUP) NGT SCH ×2 (09:17→21:56)
[2018-11-09] MEDS: FUROSEMIDE 20 MG INJ IV SCH (09:17)
[2018-11-09] MEDS: LEVETIRACETAM (100 MG/ML) 5ML CUP GTB SCH ×2 (09:17→21:56)
[2018-11-09] MEDS: NEUTRA-PHOS 250 MG PACKET PO SCH ×2 (09:17→21:56)
[2018-11-09] MEDS: METOPROLOL 25 MG TAB PO SCH ×2 (09:17→21:57)
[2018-11-09] MEDS: MUPIROCIN 2% 22 GM OINT TOP SCH ×2 (09:18→21:57)
[2018-11-09] MEDS: BALSAM PERU/CASTOR OIL 60 GM TUBE TOP SCH (09:18)
[2018-11-09] MEDS: BUDESONIDE (NEB) 0.5MG/2ML AMP HHN SCH ×2 (09:36→19:18)
--- NOTE | 2018-11-09 11:18 | PN ---
Date/Time of Note Date/Time of Note DATE: 11/09/18 TIME: 11:18 Assessment/Plan VTE Prophylaxis Risk score (from [facility] [place])>0 risk: 11 SCD applied (from [facility] [place]): Yes Pharmacological prophylaxis: LMWH Lines/Catheters IV Catheter Type (from [facility]): PICC Line Central line still needed: Yes Urinary Cath still in place: Yes Reason Cath still needed: skin wounds contaminated by urine Assessment/Plan Hospital Course 1. Acute encephalopathy. - neurology follows; EEG done 2. Fever and leukocytosis with positive blood culture. Continue IV vancomycin and cefepime. Further recommendation will depend on patient's hospital course and recommendation from Dr. Melendez. 3. Chronic obstructive pulmonary disease. Continue breathing treatment. 4. Paroxysmal atrial fibrillation. The patient is currently in atrial fibrillation. The patient is on metoprolol on p.r.n. basis. The patient is unable to take anything p.o. since she is encephalopathic. The patient does not have a G-tube or NG tube. - CVA prophylaxis- Lovenox based on creatinine - GI prophylaxis, continue Protonix. Result Diagram: 11/08/18 0525 11/08/18 0525 Subjective 24 Hr Interval Summary Free Text/Dictation Patient has eyes open, trach in place Exam/Review of Systems Vital Signs Vitals Vital Signs Date Temp Pulse Resp B/P (MAP) Pulse Ox O2 O2 Flow FiO2 Time Delivery Rate 11/09/18 83 09:08 11/09/18 20 99 30 09:05 11/09/18 98.8 128/68 Mechanical 07:11 (88) Ventilator Intake and Output 11/08/18 11/08/18 11/09/18 1515:00 23:00 07:00 IntakeIntake Total 600 ml 600 ml OutputOutput Total 600 ml BalanceBalance 600 ml 0 ml Exam Constitutional: well developed Head: normocephalic, atraumatic Neck: supple Respiratory: diminished breath sounds Cardiovascular: regular rate and rhythm Gastrointestinal: soft, non-tender Extremities: normal pulses Medications Medications Current Medications Metoprolol Tartrate (Lopressor) 5 mg Q4H PRN IV HR>110 Hold SBP<100 Last administered on 10/28/18at 05:38; Admin Dose 5 MG; Start 10/27/18 at 13:30 Acetaminophen (Tylenol Supp) 650 mg Q6H PRN [place] FEVER GREATER THAN 100.6 Last administered on 10/28/18 03:07; Admin Dose 650 MG; Start 10/28/18 at 02:30 Hydralazine HCl (Apresoline) 10 mg Q4H PRN IV SBP>170; Start 10/28/18 at 11:00 Mupirocin (Bactroban) 1 applic BID TOP Last administered on 11/09/18 09:18; Admin Dose 1 APPLIC; Start 10/28/18 at 21:00 Levalbuterol (Xopenex Neb) 1.25 mg Q6H RESP THERAPY HHN Last administered on 11/09/18 07:51; Admin Dose 1.25 MG; Start 10/29/18 at 08:00 Budesonide (Pulmicort (Neb)) 0.5 mg BID RESP THERAPY HHN Last administered on 11/09/18 09:36; Admin Dose 0.5 MG; Start 10/29/18 at 09:00 Ipratropium [place] (Atrovent 0.02% (Neb)) 0.5 mg Q6H RESP THERAPY HHN Last administered on 11/09/18 07:51; Admin Dose 0.5 MG; Start 10/29/18 at 08:00 Lansoprazole (Prevacid) 30 mg DAILY@06 GTB Last administered on 11/09/18at 05:39; Admin Dose 30 MG; Start 10/31/18 at 06:00 Metoprolol Tartrate (Lopressor) 25 mg BID PO Last administered on 11/09/18 09:17; Admin Dose 25 MG; Start 10/31/18 at 12:00 Sodium Phosphate (Neutra-Phos) 250 mg BID PO Last administered on 11/09/18 09:17; Admin Dose 250 MG; Start 11/01/18 at 09:00 Apixaban (Eliquis) 2.5 mg BID PO Last administered on 11/09/18 09:17; Admin Dose 2.5 MG; Start 11/02/18 at 09:00 Morphine Sulfate (morphine) 15 mg Q4H PRN PO SEVERE PAIN LEVEL 7-10; Start 11/04/18 at 14:30 Lorazepam (Ativan) 1 mg Q6H PRN IV SEIZURES; Start 11/04/18 at 15:00 Lorazepam (Ativan) 1 mg Q6H PRN PO ANXIETY; Start 11/04/18 at 15:00 Docusate Sodium (Colace Liquid Cup) 100 mg BID NGT Last administered on 11/09/18 09:17; Admin Dose 100 MG; Start 11/04/18 at 21:00 Bisacodyl (Dulcolax Supp) 10 mg DAILY PRN [place] CONSTIPATION Last administered on 11/05/18at 12:21; Admin Dose 10 MG; Start 11/05/18 at 11:30 Furosemide (Lasix) 20 mg DAILY IV Last administered on 11/09/18at 09:17; Admin Dose 20 MG; Start 11/08/18 at 09:00 IV Flush (NS 10 ml) 10 ml PRN PRN IV IV PROTOCOL; Start 11/07/18 at 15:00 Levetiracetam (Keppra Liquid) 500 mg BID GTB Last administered on 11/09/18 09:17; Admin Dose 500 MG; Start 11/08/18 at 21:00 ROSALVA SANCHES Nov 09, 2018 11:18
--- NOTE | 2018-11-09 11:22 | CONS ---
Date/Time of Note Date/Time of Note DATE: 11/09/18 TIME: 11:22 Assessment/Plan Assessment/Plan Hospital Course ID PROGRESS NOTE CURRENT ABX: DAY # = OFF ABX s/p Vanco IV, Bactrim, Cefepime 11/08/18 0525 11/08/18 0525 24H INTERVAL SUMMARY * 73 obese F => encephalopathic, lethargic, noncommunicative on the Vent - VSS, NAD, no fevers * INDWELLINGS: Trach, NGT,Damon, NEW PICC LINE * DIAGNOSTICS: Chest x-ray on admission revealed extensive bilateral pneumonia or pulmonary edema. * 11/07/18 CXR: IMPRESSION: * 1. Right arm PICC line is over the inferior SVC. Negative for a postprocedure pneumothorax. * 2. Enteric tube tip is in the gastric fundus and the side port is at the GE junction. Consider advancement. * 3. Diffuse lung disease with diffuse reticulonodular opacities is similar to the prior exam. It is unclear if this is due to infection, pulmonary edema superimposed on emphysema or chronic interstitial lung disease. This could better be evaluated with CT. Enlarged pulmonary arteries suggest pulmonary artery hypertension. * 4. Left lower lobe consolidation may represent atelectasis, aspiration or pneumonia. * 5. Small bilateral pleural effusions are unchanged. 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 MULTI DRUG RESISTANT ORGANISM * 10/28/18 BCX (-) * 10/29/18 TRACH RESPIRATORY CULTURE Final Organism 1 PSEUDOMONAS AERUGINOSA QUANTITY 1+ Organism 2 PROVIDENCIA STUARTII QUANTITY 1+ Organism 3 STENOTROPHOMONAS MALTOPHILIA QUANTITY 1+ PHYSICAL EXAMINATION: GENERAL: Afebrile, VSS, A/A/responsive, chronically ill-appearing HEENT: AT, NC, anicteric NECK: Supple,(+)TRACH secure CHEST: Equal chest rise bilaterally, without dyspnea on observation HEART: Pulse RRR ABDOMEN: Soft EXTREMITIES: Warm, dry, Bilateral lower extremities edema and erythema. SKIN: FUNGAL MOISTURE DERMATITIS UNDER BREASTS MASH BRAD-ANAL no diaphoresis ID ASSESSMENT 73 yo MORBID OBESE F admit with 1. s/p SIRS w/ low grade temps, leukocytosis on 10/31/18 = due to GNR UTI= RESOLVED * 10/28/18 Urine Cx (+) URINE CULTURE Final Organism 1 K PNEUMO ESBL COLONY COUNT >100,000 CFU/ml . MULTI DRUG RESISTANT ORGANISM 2. Status post bacteremia, consistent with contaminant = RESOLVED 3. Acute encephalopathy secondary to CVA 4. Seizure disorder/status epilepticus 5. Status post healthcare associated pneumonia 6. (+) Tracheobronchitis == Polymicrobial GNR = SUSPECT TRACH COLONIZATION * 10/29/18 TRACH RESPIRATORY CULTURE Final Organism 1 PSEUDOMONAS AERUGINOSA Organism 2 PROVIDENCIA STUARTII Organism 3 STENOTROPHOMONAS MALTOPHILIA 7. Chronic respiratory failure=> (+)Trach * COPD Emphysema * Interstitial Lung Disease * (+)PHTN 8. Bilateral superficial venous thrombus within the cephalic veins. 9. Bilateral lower extremity cellulitis, likely acute on chronic = RESOLVED 10. Breast folds = moisture yeast dermatitis 11. Atrial fibrillation. 12. Hx of CHF w/pulmonary edema 13. Anemia. (-)MRSA NARES w/hx of prior (+)MRSA (+)VRE stool colonization ABX ALLERGIES: KNDA CURRENT ABX: DAY #OFF ABX s/p Vanco IV, Bactrim, Cefepime ID RECOMMENDATIONS Continue to monitor OFF ABX . Result Diagram: 11/08/1825 11/08/1825 Consultation Date/Type/Reason Admit Date/Time Oct 27, 2018 at 08:14 Initial Consult Date 10/28/18 Requesting Provider: JAYLEN LUGO MD Exam/Review of Systems Vital Signs Vitals Vital Signs Date Temp Pulse Resp B/P (MAP) Pulse Ox O2 O2 Flow FiO2 Time Delivery Rate 11/09/18 83 09:08 11/09/18 20 99 30 09:05 11/09/18 98.8 128/68 Mechanical 07:11 (88) Ventilator Intake and Output 11/08/18 11/08/18 11/09/18 1515:00 23:00 07:00 IntakeIntake Total 600 ml 600 ml OutputOutput Total 600 ml BalanceBalance 600 ml 0 ml Medications Medications Current Medications Metoprolol Tartrate (Lopressor) 5 mg Q4H PRN IV HR>110 Hold SBP<100 Last administered on 10/28/18 05:38; Admin Dose 5 MG; Start 10/27/18 at 13:30 Acetaminophen (Tylenol Supp) 650 mg Q6H PRN [place] FEVER GREATER THAN 100.6 Last administered on 10/28/18 03:07; Admin Dose 650 MG; Start 10/28/18 at 02:30 Hydralazine HCl (Apresoline) 10 mg Q4H PRN IV SBP>170; Start 10/28/18 at 11:00 Mupirocin (Bactroban) 1 applic BID TOP Last administered on 11/09/18 09:18; Admin Dose 1 APPLIC; Start 10/28/18 at 21:00 Levalbuterol (Xopenex Neb) 1.25 mg Q6H RESP THERAPY HHN Last administered on 11/09/18 07:51; Admin Dose 1.25 MG; Start 10/29/18 at 08:00 Budesonide (Pulmicort (Neb)) 0.5 mg BID RESP THERAPY HHN Last administered on 11/09/18 09:36; Admin Dose 0.5 MG; Start 10/29/18 at 09:00 Ipratropium [place] (Atrovent 0.02% (Neb)) 0.5 mg Q6H RESP THERAPY HHN Last administered on 11/09/18 07:51; Admin Dose 0.5 MG; Start 10/29/18 at 08:00 Lansoprazole (Prevacid) 30 mg DAILY@06 GTB Last administered on 11/09/18 05:39; Admin Dose 30 MG; Start 10/31/18 at 06:00 Metoprolol Tartrate (Lopressor) 25 mg BID PO Last administered on 11/09/18 09:17; Admin Dose 25 MG; Start 10/31/18 at 12:00 Sodium Phosphate (Neutra-Phos) 250 mg BID PO Last administered on 11/09/18 09:17; Admin Dose 250 MG; Start 11/01/18 at 09:00 Apixaban (Eliquis) 2.5 mg BID PO Last administered on 11/09/18 09:17; Admin Dose 2.5 MG; Start 11/02/18 at 09:00 Morphine Sulfate (morphine) 15 mg Q4H PRN PO SEVERE PAIN LEVEL 7-10; Start 11/04/18 at 14:30 Lorazepam (Ativan) 1 mg Q6H PRN IV SEIZURES; Start 11/04/18 at 15:00 Lorazepam (Ativan) 1 mg Q6H PRN PO ANXIETY; Start 11/04/18 at 15:00 Docusate Sodium (Colace Liquid Cup) 100 mg BID NGT Last administered on 11/09/18 09:17; Admin Dose 100 MG; Start 11/04/18 at 21:00 Bisacodyl (Dulcolax Supp) 10 mg DAILY PRN [place] CONSTIPATION Last administered on 11/05/18at 12:21; Admin Dose 10 MG; Start 11/05/18 at 11:30 Furosemide (Lasix) 20 mg DAILY IV Last administered on 11/09/18at 09:17; Admin Dose 20 MG; Start 11/08/18 at 09:00 IV Flush (NS 10 ml) 10 ml PRN PRN IV IV PROTOCOL; Start 11/07/18 at 15:00 Levetiracetam (Keppra Liquid) 500 mg BID GTB Last administered on 11/09/18at 09:17; Admin Dose 500 MG; Start 11/08/18 at 21:00 ELIAS CORONEL NP Nov 09, 2018 11:22
--- NOTE | 2018-11-09 12:25 | CONS ---
Assessment/Plan Assessment/Plan Hospital Course Assessment/Plan A: 73 yo F with reported Hx of afib, HTN, and other comorbidities...who presents with ams, tachyarrhythmia, and involuntary muscle jerking...for which neurology is consulted. The clinical picture is consistent w/ status epilepticus. The pt was noted to be in afib with RVR on readmission, which raises concern for superimposed acute stroke. Encephalitis is unlikely.. 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 EEG is notable for frequent right hemispheric epileptiform discharges, which is clinically consistent with status epilepticus. Echo is unrevealing. Repeat CTH is unrevealing. P: Cont maintenance Keppra 500 BID for now Ativan iv for prolonged seizure > 5min or for cluster Continue Lipitor for secondary stroke prevention Eliquis OK for the same Other medical management and supportive care per primary Will follow clinically Result Diagram: 11/08/18 0525 11/08/18 0525 Consultation Date/Type/Reason Admit Date/Time Oct 27, 2018 at 08:14 Type of Consult Neurology Requesting Provider: JAYLEN LUGO MD Date/Time of Note DATE: 11/09/18 TIME: 12:25 24 HR Interval Summary Free Text/Dictation Continues telemetry monitoring. No acute events reported. Pt states that she isn't doing okay but is unable to verbalize why. Exam Vital Signs Vitals Vital Signs Date Temp Pulse Resp B/P (MAP) Pulse Ox O2 O2 Flow FiO2 Time Delivery Rate 11/09/18 66 17 98 30 11:05 11/09/18 98.8 128/68 Mechanical 07:11 (88) Ventilator Intake and Output 11/08/18 11/08/18 11/09/18 1515:00 23:00 07:00 IntakeIntake Total 600 ml 600 ml OutputOutput Total 600 ml BalanceBalance 600 ml 0 ml Exam PE: Gen Appearance: No Apparent Distress HEENT: Has trach Cardiovascular: SR on telemetry Abdomen: Soft Extremities: Dry NE: The patient was awake and alert though nonverbal, d/t trach. Jaw tremors were noted, however pt was able to mouth words. Was blinking spontaneously. The pt was able to track and follow simple axial and appendicular commands. Cranial nerve examination was limited by mental status. Pupils were equal, round and briskly reactive to light. There was no afferent pupillary defect. Funduscopic examination was limited. Face was grossly symmetric, w/ a present cough/gag reflex. Tone was increased in her upper extremities . Muscle bulk was slightly diminished. I did not see fasciculations. The patient moved her upper extremities spontaneously and withdrew her lowers extremities to noxious stimuli. Coordination and gait testing was limited by mental status. Arm and leg reflexes were symmetric. Doshi's sign was absent. Plantar responses were flexor. JOE WYATT NP Nov 09, 2018 12:25 CHRISTIANA LARSON Nov 10, 2018 07:11
--- NOTE | 2018-11-09 14:48 | CONS ---
Date/Time of Note Date/Time of Note DATE: 11/09/18 TIME: 14:47 Assessment/Plan Assessment/Plan Hospital Course IMPRESSION: 1. Atrial fibrillation with a rapid ventricular response.-now in SR and remains 2. Abnormal electrocardiogram with ST depressions during atrial fibrillation with rapid ventricular response. 3. Altered mental state/encephalopathy. 4. Possible seizure-like activity. 5. Congestive heart failure, diastolic, chronic. 6. Hypertension. 7. Urinary tract infection. 8. Renal failure. 9. Leukocytosis. 10. bacteremia 11.fevers Recc: -Tele -Continue IVP BB PRN -continue PO BB -Continue eliquis -Continue abx's and f/u cx data -IVP PRN hydralazine -Continue bronchodilators -follow MS closely -Continue lasix and follow volume status closely Result Diagram: 11/08/18 0525 11/08/1825 Consultation Date/Type/Reason Admit Date/Time Oct 27, 2018 at 08:14 Initial Consult Date 10/27/18 Type of Consult cardiology Reason for Consultation AF Requesting Provider: JAYLEN LUGO MD Exam/Review of Systems Vital Signs Vitals Vital Signs Date Temp Pulse Resp B/P (MAP) Pulse Ox O2 O2 Flow FiO2 Time Delivery Rate 11/09/18 84 13:05 11/09/18 16 99 30 13:00 11/09/18 98.6 130/60 Mechanical 12:00 (83) Ventilator Intake and Output 11/08/18 11/08/18 11/09/18 1515:00 23:00 07:00 IntakeIntake Total 600 ml 600 ml OutputOutput Total 600 ml BalanceBalance 600 ml 0 ml Exam Review of Systems: CONSTITUTIONAL: No fevers, chills. PULMONARY: No sob CARDIOVASCULAR: No chest pain/palpitations GASTROINTESTINAL: No nausea/vomiting. GENITOURINARY: No hematuria/dysuria. MUSCULOSKELETAL: No myagias/arthalgias. PSYCHIATRIC: The patient denies depression. NEUROLOGIC: No weakness Constitutional: alert Psych: no complaints Head: normocephalic ENMT: mucosa pink and moist Neck: supple, jvd (9 cm water) Respiratory: diminished breath sounds Cardiovascular: regular rate and rhythm Gastrointestinal: soft, non-tender Musculoskeletal: muscle tone (normal) Extremities: edema (none) Neurological: other (No focal deficits) Medications Medications Current Medications Metoprolol Tartrate (Lopressor) 5 mg Q4H PRN IV HR>110 Hold SBP<100 Last ad ministered on 10/28/18at 05:38; Admin Dose 5 MG; Start 10/27/18 at 13:30 Acetaminophen (Tylenol Supp) 650 mg Q6H PRN [place] FEVER GREATER THAN 100.6 Last administered on 10/28/18 03:07; Admin Dose 650 MG; Start 10/28/18 at 02:30 Hydralazine HCl (Apresoline) 10 mg Q4H PRN IV SBP>170; Start 10/28/18 at 11:00 Mupirocin (Bactroban) 1 applic BID TOP Last administered on 11/09/18 09:18; Admin Dose 1 APPLIC; Start 10/28/18 at 21:00 Levalbuterol (Xopenex Neb) 1.25 mg Q6H RESP THERAPY HHN Last administered on 11/09/18 13:05; Admin Dose 1.25 MG; Start 10/29/18 at 08:00 Budesonide (Pulmicort (Neb)) 0.5 mg BID RESP THERAPY HHN Last administered on 11/09/18 09:36; Admin Dose 0.5 MG; Start 10/29/18 at 09:00 Ipratropium [place] (Atrovent 0.02% (Neb)) 0.5 mg Q6H RESP THERAPY [facility] Last ad ministered on 11/09/18at 13:05; Admin Dose 0.5 MG; Start 10/29/18 at 08:00 Lansoprazole (Prevacid) 30 mg DAILY@06 GTB Last administered on 11/09/18 05:39; Admin Dose 30 MG; Start 10/31/18 at 06:00 Metoprolol Tartrate (Lopressor) 25 mg BID PO Last administered on 11/09/18 09:17; Admin Dose 25 MG; Start 10/31/18 at 12:00 Sodium Phosphate (Neutra-Phos) 250 mg BID PO Last administered on 11/09/18 09:17; Admin Dose 250 MG; Start 11/01/18 at 09:00 Apixaban (Eliquis) 2.5 mg BID PO Last administered on 11/09/18 09:17; Admin Dose 2.5 MG; Start 11/02/18 at 09:00 Morphine Sulfate (morphine) 15 mg Q4H PRN PO SEVERE PAIN LEVEL 7-10; Start 11/04/18 at 14:30 Lorazepam (Ativan) 1 mg Q6H PRN IV SEIZURES; Start 11/04/18 at 15:00 Lorazepam (Ativan) 1 mg Q6H PRN PO ANXIETY; Start 11/04/18 at 15:00 Docusate Sodium (Colace Liquid Cup) 100 mg BID NGT Last administered on 11/09/18at 09:17; Admin Dose 100 MG; Start 11/04/18 at 21:00 Bisacodyl (Dulcolax Supp) 10 mg DAILY PRN [place] CONSTIPATION Last administered on 11/05/18at 12:21; Admin Dose 10 MG; Start 11/05/18 at 11:30 Furosemide (Lasix) 20 mg DAILY IV Last administered on 11/09/18at 09:17; Admin Dose 20 MG; Start 11/08/18 at 09:00 IV Flush (NS 10 ml) 10 ml PRN PRN IV IV PROTOCOL; Start 11/07/18 at 15:00 Levetiracetam (Keppra Liquid) 500 mg BID GTB Last administered on 11/09/18 09:17; Admin Dose 500 MG; Start 11/08/18 at 21:00 LUIS FERGUSON Nov 09, 2018 14:48
--- NOTE | 2018-11-09 14:54 | CONS ---
Date/Time of Note Date/Time of Note DATE: 11/09/18 TIME: 14:34 Assessment/Plan Assessment/Plan Hospital Course ID PROGRESS NOTE CURRENT ABX: DAY # = OFF ABX s/p Vanco IV, Bactrim, Cefepime 11/08/18 0525 11/08/18 0525 24H INTERVAL SUMMARY * 73 obese F => encephalopathic, lethargic, noncommunicative on the Vent - VSS, NAD, no fevers * INDWELLINGS: Trach, NGT,Damon, NEW PICC LINE * DIAGNOSTICS: Chest x-ray on admission revealed extensive bilateral pneumonia or pulmonary edema. * 11/07/18 CXR: IMPRESSION: * 1. Right arm PICC line is over the inferior SVC. Negative for a postprocedure pneumothorax. * 2. Enteric tube tip is in the gastric fundus and the side port is at the GE junction. Consider advancement. * 3. Diffuse lung disease with diffuse reticulonodular opacities is similar to the prior exam. It is unclear if this is due to infection, pulmonary edema superimposed on emphysema or chronic interstitial lung disease. This could better be evaluated with CT. Enlarged pulmonary arteries suggest pulmonary artery hypertension. * 4. Left lower lobe consolidation may represent atelectasis, aspiration or pneumonia. * 5. Small bilateral pleural effusions are unchanged. 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 MULTI DRUG RESISTANT ORGANISM * 10/28/18 BCX (-) * 10/29/18 TRACH RESPIRATORY CULTURE Final Organism 1 PSEUDOMONAS AERUGINOSA QUANTITY 1+ Organism 2 PROVIDENCIA STUARTII QUANTITY 1+ Organism 3 STENOTROPHOMONAS MALTOPHILIA QUANTITY 1+ PHYSICAL EXAMINATION: GENERAL: Afebrile, VSS, A/A/responsive, chronically ill-appearing HEENT: AT, NC, anicteric NECK: Supple,(+)TRACH secure CHEST: Equal chest rise bilaterally, without dyspnea on observation HEART: Pulse RRR ABDOMEN: Soft EXTREMITIES: Warm, dry, Bilateral lower extremities edema and erythema. SKIN: FUNGAL MOISTURE DERMATITIS UNDER BREASTS MASH BRAD-ANAL no diaphoresis ID ASSESSMENT 73 yo MORBID OBESE F admit with 1. s/p SIRS w/ low grade temps, leukocytosis on 10/31/18 = due to GNR UTI= RESOLVED * 10/28/18 Urine Cx (+) URINE CULTURE Final Organism 1 K PNEUMO ESBL COLONY COUNT >100,000 CFU/ml . MULTI DRUG RESISTANT ORGANISM 2. Status post bacteremia, consistent with contaminant = RESOLVED 3. Acute encephalopathy secondary to CVA 4. Seizure disorder/status epilepticus 5. Status post healthcare associated pneumonia 6. (+) Tracheobronchitis == Polymicrobial GNR = SUSPECT TRACH COLONIZATION * 10/29/18 TRACH RESPIRATORY CULTURE Final Organism 1 PSEUDOMONAS AERUGINOSA Organism 2 PROVIDENCIA STUARTII Organism 3 STENOTROPHOMONAS MALTOPHILIA 7. Chronic respiratory failure=> (+)Trach * COPD Emphysema * Interstitial Lung Disease * (+)PHTN 8. Bilateral superficial venous thrombus within the cephalic veins. 9. Bilateral lower extremity cellulitis, likely acute on chronic = RESOLVED 10. Breast folds = moisture yeast dermatitis 11. Atrial fibrillation. 12. Hx of CHF w/pulmonary edema 13. Anemia. (-)MRSA NARES w/hx of prior (+)MRSA (+)VRE stool colonization ABX ALLERGIES: KNDA CURRENT ABX: DAY #OFF ABX s/p Vanco IV, Bactrim, Cefepime ID RECOMMENDATIONS Continue to monitor OFF ABX . Result Diagram: 11/08/1825 11/08/18 0525 Consultation Date/Type/Reason Admit Date/Time Oct 27, 2018 at 08:14 Initial Consult Date 10/28/18 Requesting Provider: JAYLEN LUGO MD Exam/Review of Systems Vital Signs Vitals Vital Signs Date Temp Pulse Resp B/P (MAP) Pulse Ox O2 O2 Flow FiO2 Time Delivery Rate 11/09/18 84 13:05 11/09/18 16 99 30 13:00 11/09/18 98.6 130/60 Mechanical 12:00 (83) Ventilator Intake and Output 11/08/18 11/08/18 11/09/18 1414:59 22:59 06:59 IntakeIntake Total 600 ml 600 ml OutputOutput Total 600 ml BalanceBalance 600 ml 0 ml Medications Medications Current Medications Metoprolol Tartrate (Lopressor) 5 mg Q4H PRN IV HR>110 Hold SBP<100 Last administered on 10/28/18 05:38; Admin Dose 5 MG; Start 10/27/18 at 13:30 Acetaminophen (Tylenol Supp) 650 mg Q6H PRN [place] FEVER GREATER THAN 100.6 Last administered on 10/28/18 03:07; Admin Dose 650 MG; Start 10/28/18 at 02:30 Hydralazine HCl (Apresoline) 10 mg Q4H PRN IV SBP>170; Start 10/28/18 at 11:00 Mupirocin (Bactroban) 1 applic BID TOP Last administered on 11/09/18 09:18; Admin Dose 1 APPLIC; Start 10/28/18 at 21:00 Levalbuterol (Xopenex Neb) 1.25 mg Q6H RESP THERAPY HHN Last administered on 11/09/18 13:05; Admin Dose 1.25 MG; Start 10/29/18 at 08:00 Budesonide (Pulmicort (Neb)) 0.5 mg BID RESP THERAPY [facility]N Last administered on 11/09/18 09:36; Admin Dose 0.5 MG; Start 10/29/18 at 09:00 Ipratropium [place] (Atrovent 0.02% (Neb)) 0.5 mg Q6H RESP THERAPY [facility] Last administered on 11/09/18 13:05; Admin Dose 0.5 MG; Start 10/29/18 at 08:00 Lansoprazole (Prevacid) 30 mg DAILY@06 GTB Last administered on 11/09/18 05:39; Admin Dose 30 MG; Start 10/31/18 at 06:00 Metoprolol Tartrate (Lopressor) 25 mg BID PO Last administered on 11/09/18 09:17; Admin Dose 25 MG; Start 10/31/18 at 12:00 Sodium Phosphate (Neutra-Phos) 250 mg BID PO Last administered on 11/09/18 09:17; Admin Dose 250 MG; Start 11/01/18 at 09:00 Apixaban (Eliquis) 2.5 mg BID PO Last administered on 11/09/18 09:17; Admin Dose 2.5 MG; Start 11/02/18 at 09:00 Morphine Sulfate (morphine) 15 mg Q4H PRN PO SEVERE PAIN LEVEL 7-10; Start 11/04/18 at 14:30 Lorazepam (Ativan) 1 mg Q6H PRN IV SEIZURES; Start 11/04/18 at 15:00 Lorazepam (Ativan) 1 mg Q6H PRN PO ANXIETY; Start 11/04/18 at 15:00 Docusate Sodium (Colace Liquid Cup) 100 mg BID NGT Last administered on 11/09/18 09:17; Admin Dose 100 MG; Start 11/04/18 at 21:00 Bisacodyl (Dulcolax Supp) 10 mg DAILY PRN [place] CONSTIPATION Last administered on 11/05/18at 12:21; Admin Dose 10 MG; Start 11/05/18 at 11:30 Furosemide (Lasix) 20 mg DAILY IV Last administered on 11/09/18at 09:17; Admin Dose 20 MG; Start 11/08/18 at 09:00 IV Flush (NS 10 ml) 10 ml PRN PRN IV IV PROTOCOL; Start 11/07/18 at 15:00 Levetiracetam (Keppra Liquid) 500 mg BID GTB Last administered on 11/09/18at 09:17; Admin Dose 500 MG; Start 11/08/18 at 21:00 ELIAS CORONEL NP Nov 09, 2018 14:46
[2018-11-10] VITALS (23 sets, daily range): BP systolic 122–149; BP diastolic 53–82; PULSE 66–158; RESP 14–23
[2018-11-10] MEDS: LEVALBUTEROL (NEB) 1.25 MG/0.5 ML AMP HHN SCH ×4 (01:00→19:51)
[2018-11-10] MEDS: IPRATROPIUM (NEB) 0.5 MG/2.5 ML AMP HHN SCH ×4 (01:00→19:51)
[2018-11-10] MEDS: LANSOPRAZOLE 30 MG CAP GTB SCH (06:42)
--- NOTE | 2018-11-10 07:21 | PN ---
Date/Time of Note Date/Time of Note DATE: 11/10/18 TIME: 07:20 Assessment/Plan VTE Prophylaxis Risk score (from Nsg)>0 risk: 10 SCD applied (from Nsg): Yes Pharmacological prophylaxis: other Lines/Catheters IV Catheter Type (from Nrsg): PICC Line Central line still needed: Yes Urinary Cath still in place: Yes Reason Cath still needed: urinary retention Assessment/Plan Hospital Course renal follow up SUBJECTIVE: The patient is stable. No events overnight. No fevers, chills, nausea, vomiting. OBJECTIVE: HEENT: Head is normocephalic. NECK: Supple. HEART: Regular rate. LUNGS: Show diminished breath sounds at the base. ABDOMEN: Soft, nontender to palpation without rebound or guarding. EXTREMITIES: Negative for clubbing, cyanosis. No edema. DERMATOLOGIC: No rashes. MUSCULOSKELETAL: No joint effusion. NEUROLOGIC: No change in exam. MEDICATIONS: Have been reviewed. ASSESSMENT AND PLAN: 1. Nonoliguric acute kidney injury on top of chronic kidney disease with previous baseline creatinine of 1.5 mg/dL. Etiology of acute kidney injury is secondary to hemodynamics. The patient's renal function is fluctuating,. This is likely due to diuretic therapy. We will deescalate Lasix, monitor renal function closely, adjust diuretics as needed. 2. Hypernatremia, improved. Continue free water flushes. 3. Acute diastolic heart failure. The patient is clinically improving. Continue current medical management. 4. Anemia. Monitor hemoglobin and hematocrit levels. 5. Mineral bone disorder. Monitor calcium and phosphorus levels. 6. Hypomagnesemia. Continue to monitor and replete as needed. 7. Atrial fibrillation. Continue medical management. 8. Ventilatory-dependent respiratory failure. Vent settings and ABG was reviewed. Continue to monitor. Follow up with pulmonary. 9. Dysphagia. Continue tube feeding. 10. Seizure disorder. Continue medical management. 11. Sepsis. The patient is completing antibiotic course. Continue to monitor. 12. Acute cerebrovascular accident. Continue medical management. Follow up with neurology. 13. Acute encephalopathy secondary to cerebrovascular accident. Continue to monitor. Result Diagram: 11/08/1852411/08/18524 Exam/Review of Systems Vital Signs Vitals Vital Signs Date Temp Pulse Resp B/P (MAP) Pulse Ox O2 O2 Flow FiO2 Time Delivery Rate 11/10/18 76 16 99 30 05:05 11/10/18 98.5 137/72 04:22 (93) 11/09/18 Mechanical 20:02 Ventilator Intake and Output 11/09/18 11/09/18 11/10/18 1515:00 23:00 07:00 IntakeIntake Total 800 ml OutputOutput Total 1900 ml BalanceBalance -1100 ml Medications Medications Current Medications Metoprolol Tartrate (Lopressor) 5 mg Q4H PRN IV HR>110 Hold SBP<100 Last administered on 10/28/18at 05:38; Admin Dose 5 MG; Start 10/27/18 at 13:30 Acetaminophen (Tylenol Supp) 650 mg Q6H PRN IN FEVER GREATER THAN 100.6 Last administered on 10/28/18at 03:07; Admin Dose 650 MG; Start 10/28/18 at 02:30 Hydralazine HCl (Apresoline) 10 mg Q4H PRN IV SBP>170; Start 10/28/18 at 11:00 Mupirocin (Bactroban) 1 applic BID TOP Last administered on 11/09/18 21:57; Admin Dose 1 APPLIC; Start 10/28/18 at 21:00 Levalbuterol (Xopenex Neb) 1.25 mg Q6H RESP THERAPY HHN Last administered on 11/10/18 01:00; Admin Dose 1.25 MG; Start 10/29/18 at 08:00 Budesonide (Pulmicort (Neb)) 0.5 mg BID RESP THERAPY HHN Last administered on 11/09/18 19:18; Admin Dose 0.5 MG; Start 10/29/18 at 09:00 Ipratropium [place] (Atrovent 0.02% (Neb)) 0.5 mg Q6H RESP THERAPY HHN Last administered on 11/10/18 01:00; Admin Dose 0.5 MG; Start 10/29/18 at 08:00 Lansoprazole (Prevacid) 30 mg DAILY@06 GTB Last administered on 11/10/18 06: 42; Admin Dose 30 MG; Start 10/31/18 at 06:00 Metoprolol Tartrate (Lopressor) 25 mg BID PO Last administered on 11/09/18 21:57; Admin Dose 25 MG; Start 10/31/18 at 12:00 Sodium Phosphate (Neutra-Phos) 250 mg BID PO Last administered on 11/09/18 21:56; Admin Dose 250 MG; Start 11/01/18 at 09:00 Apixaban (Eliquis) 2.5 mg BID PO Last administered on 11/09/18 21:57; Admin Dose 2.5 MG; Start 11/02/18 at 09:00 Morphine Sulfate (morphine) 15 mg Q4H PRN PO SEVERE PAIN LEVEL 7-10; Start at 14:30 Lorazepam (Ativan) 1 mg Q6H PRN IV SEIZURES; Start 11/04/18 at 15:00 Lorazepam (Ativan) 1 mg Q6H PRN PO ANXIETY; Start 11/04/18 at 15:00 Docusate Sodium (Colace Liquid Cup) 100 mg BID NGT Last administered on 11/09/18 21:56; Admin Dose 100 MG; Start 11/04/18 at 21:00 Bisacodyl (Dulcolax Supp) 10 mg DAILY PRN IN CONSTIPATION Last administered on 11/05/18at 12:21; Admin Dose 10 MG; Start 11/05/18 at 11:30 Furosemide (Lasix) 20 mg DAILY IV Last administered on 11/09/18 09:17; Admin Dose 20 MG; Start 11/08/18 at 09:00 IV Flush (NS 10 ml) 10 ml PRN PRN IV IV PROTOCOL; Start 11/07/18 at 15:00 Levetiracetam (Keppra Liquid) 500 mg BID GTB Last administered on 11/09/18 21:56; Admin Dose 500 MG; Start 11/08/18 at 21:00 CLAIRE MARTINEZ DO Nov 10, 2018 07:21
[2018-11-10] MEDS: LEVETIRACETAM (100 MG/ML) 5ML CUP GTB SCH ×2 (08:53→21:24)
[2018-11-10] MEDS: DOCUSATE SODIUM 10 MG/ML (10ML CUP) NGT SCH ×2 (08:53→21:25)
[2018-11-10] MEDS: NEUTRA-PHOS 250 MG PACKET PO SCH ×2 (08:53→21:25)
[2018-11-10] MEDS: METOPROLOL 25 MG TAB PO SCH ×2 (08:54→21:25)
[2018-11-10] MEDS: FUROSEMIDE 20 MG INJ IV SCH (08:54)
[2018-11-10] MEDS: APIXABAN 5 MG TABLET PO SCH ×2 (08:54→21:26)
[2018-11-10] MEDS: MUPIROCIN 2% 22 GM OINT TOP SCH ×2 (08:55→21:28)
[2018-11-10] MEDS: BALSAM PERU/CASTOR OIL 60 GM TUBE TOP SCH (08:55)
[2018-11-10] MEDS: BUDESONIDE (NEB) 0.5MG/2ML AMP HHN SCH ×2 (09:12→19:57)
--- NOTE | 2018-11-10 12:57 | PN ---
Date/Time of Note Date/Time of Note DATE: 11/10/18 TIME: 12:57 Assessment/Plan VTE Prophylaxis Risk score (from [facility])>0 risk: 6 SCD applied (from Ns): Yes Pharmacological prophylaxis: LMWH Lines/Catheters IV [facility] Type (from [facility] PICC Line Central line still needed: Yes Urinary Cath still in place: Yes Reason Cath still needed: skin wounds contaminated by urine Assessment/Plan Hospital Course 1. Acute encephalopathy. - neurology follows; EEG done 2. Fever and leukocytosis with positive blood culture. Continue IV vancomycin and cefepime. Further recommendation will depend on patient's hospital course and recommendation from Dr. Melendez. 3. Chronic obstructive pulmonary disease. Continue breathing treatment. 4. Paroxysmal atrial fibrillation. The patient is currently in atrial fibrillation. The patient is on metoprolol on p.r.n. basis. The patient is unable to take anything p.o. since she is encephalopathic. The patient does not have a G-tube or NG tube. - CVA prophylaxis- Lovenox based on creatinine - GI prophylaxis, continue Protonix. Result Diagram: 11/08/18 0525 11/08/18 0525 Subjective 24 Hr Interval Summary Free Text/Dictation Eyes open but not communicative Exam/Review of Systems Vital Signs Vitals Vital Signs Date Temp Pulse Resp B/P (MAP) Pulse Ox O2 O2 Flow FiO2 Time Delivery Rate 11/10/18 98.6 66 14 122/53 95 11:43 (76) 11/10/18 30 11:15 11/09/18 Mechanical 20:02 Ventilator Intake and Output 11/09/18 11/09/18 11/10/18 1515:00 23:00 07:00 IntakeIntake Total 800 ml 1000 ml OutputOutput Total 1900 ml 1300 ml BalanceBalance -1100 ml -300 ml Exam Constitutional: well developed Head: normocephalic, atraumatic Neck: supple Respiratory: diminished breath sounds Cardiovascular: regular rate and rhythm Gastrointestinal: soft, non-tender Extremities: normal pulses Medications Medications Current Medications Metoprolol Tartrate (Lopressor) 5 mg Q4H PRN IV HR>110 Hold SBP<100 Last administered on 10/28/18at 05:38; Admin Dose 5 MG; Start 10/27/18 at 13:30 Acetaminophen (Tylenol Supp) [address] FEVER GREATER THAN 100.6 Last administered on 10/28/18 03:07; Admin Dose 650 MG; Start 10/28/18 at 02:30 Hydralazine HCl (Apresoline) 10 mg Q4H PRN IV SBP>170; Start 10/28/18 at 11:00 Mupirocin (Bactroban) 1 applic BID TOP Last administered on 11/10/18 08:55; Admin Dose 1 APPLIC; Start 10/28/18 at 21:00 Levalbuterol (Xopenex Neb) 1.25 mg Q6H RESP THERAPY HHN Last administered on 11/10/18 07:59; Admin Dose 1.25 MG; Start 10/29/18 at 08:00 Budesonide (Pulmicort (Neb)) 0.5 mg BID RESP THERAPY HHN Last administered on 11/10/18 09:12; Admin Dose 0.5 MG; Start 10/29/18 at 09:00 Ipratropium [place] (Atrovent 0.02% (Neb)) 0.5 mg Q6H RESP THERAPY HHN Last administered on 11/10/18 07:59; Admin Dose 0.5 MG; Start 10/29/18 at 08:00 Lansoprazole (Prevacid) 30 mg DAILY@06 GTB Last administered on 11/10/18 06:42; Admin Dose 30 MG; Start 10/31/18 at 06:00 Metoprolol Tartrate (Lopressor) 25 mg BID PO Last administered on 11/10/18 08:54; Admin Dose 25 MG; Start 10/31/18 at 12:00 Sodium Phosphate (Neutra-Phos) 250 mg BID PO Last administered on 11/10/18 08:53; Admin Dose 250 MG; Start 11/01/18 at 09:00 Apixaban (Eliquis) 2.5 mg BID PO Last administered on 11/10/18 08:54; Admin Dose 2.5 MG; Start 11/02/18 at 09:00 Morphine Sulfate (morphine) 15 mg Q4H PRN PO SEVERE PAIN LEVEL 7-10; Start 11/04/18 at 14:30 Lorazepam (Ativan) 1 mg Q6H PRN IV SEIZURES; Start 11/04/18 at 15:00 Lorazepam (Ativan) 1 mg Q6H PRN PO ANXIETY; Start 11/04/18 at 15:00 Docusate Sodium (Colace Liquid Cup) 100 mg BID NGT Last administered on 11/10/18 08:53; Admin Dose 100 MG; Start 11/04/18 at 21:00 Bisacodyl (Dulcolax Supp) [address] CONSTIPATION Last administered on 11/05/18at 12:21; Admin Dose 10 MG; Start 11/05/18 at 11:30 Furosemide (Lasix) 20 mg DAILY IV Last administered on 11/10/18at 08:54; Admin Dose 20 MG; Start 11/08/18 at 09:00 IV Flush (NS 10 ml) 10 ml PRN PRN IV IV PROTOCOL; Start 11/07/18 at 15:00 Levetiracetam (Keppra Liquid) 500 mg BID GTB Last administered on 11/10/18 08:53; Admin Dose 500 MG; Start 11/08/18 at 21:00 ROSALVA SANCHES Nov 10, 2018 12:57
--- NOTE | 2018-11-10 13:16 | CONS ---
Date/Time of Note Date/Time of Note DATE: 11/10/18 TIME: 13:15 Assessment/Plan Assessment/Plan Hospital Course IMPRESSION: 1. Atrial fibrillation with a rapid ventricular response.-now in SR and remains 2. Abnormal electrocardiogram with ST depressions during atrial fibrillation with rapid ventricular response. 3. Altered mental state/encephalopathy. 4. Possible seizure-like activity. 5. Congestive heart failure, diastolic, chronic. 6. Hypertension. 7. Urinary tract infection. 8. Renal failure. 9. Leukocytosis. 10. bacteremia 11.fevers Recc: -Tele -Continue IVP BB PRN -continue PO BB -Continue eliquis -Continue abx's and f/u cx data -IVP PRN hydralazine -Continue bronchodilators -follow MS closely -Continue lasix and follow volume status closely Result Diagram: 11/08/1825 11/08/1825 Consultation Date/Type/Reason Admit Date/Time Oct 27, 2018 at 08:14 Initial Consult Date 10/27/18 Type of Consult cardiology Reason for Consultation AF Requesting Provider: JAYLEN LUGO MD Exam/Review of Systems Vital Signs Vitals Vital Signs Date Temp Pulse Resp B/P (MAP) Pulse Ox O2 O2 Flow FiO2 Time Delivery Rate 11/10/18 98.6 66 14 122/53 95 11:43 (76) 11/10/18 30 11:15 11/09/18 Mechanical 20:02 Ventilator Intake and Output 11/09/18 11/09/18 11/10/18 1515:00 23:00 07:00 IntakeIntake Total 800 ml 1000 ml OutputOutput Total 1900 ml 1300 ml BalanceBalance -1100 ml -300 ml Exam Review of Systems: CONSTITUTIONAL: No fevers, chills. PULMONARY: trached CARDIOVASCULAR: No chest pain/palpitations GASTROINTESTINAL: No nausea/vomiting. GENITOURINARY: No hematuria/dysuria. MUSCULOSKELETAL: No myagias/arthalgias. PSYCHIATRIC: The patient denies depression. NEUROLOGIC: No weakness Constitutional: alert Psych: no complaints Head: normocephalic ENMT: mucosa pink and moist Neck: supple, jvd (9 cm water) Respiratory: clear to auscultation Cardiovascular: irregular rhythm Gastrointestinal: soft, non-tender Musculoskeletal: muscle tone (normal) Extremities: edema (none) Neurological: other (No focal deficits) Medications Medications Current Medications Metoprolol Tartrate (Lopressor) 5 mg Q4H PRN IV HR>110 Hold SBP<100 Last administered on 10/28/18at 05:38; Admin Dose 5 MG; Start 10/27/18 at 13:30 Acetaminophen (Tylenol Supp) 650 mg Q6H PRN [place] FEVER GREATER THAN 100.6 Last administered on 10/28/18 03:07; Admin Dose 650 MG; Start 10/28/18 at 02:30 Hydralazine HCl (Apresoline) 10 mg Q4H PRN IV SBP>170; Start 10/28/18 at 11:00 Mupirocin (Bactroban) 1 applic BID TOP Last administered on 11/10/18 08:55; Admin Dose 1 APPLIC; Start 10/28/18 at 21:00 Levalbuterol (Xopenex Neb) 1.25 mg Q6H RESP THERAPY HHN Last administered on 11/10/18 07:59; Admin Dose 1.25 MG; Start 10/29/18 at 08:00 Budesonide (Pulmicort (Neb)) 0.5 mg BID RESP THERAPY HHN Last administered on 11/10/18 09:12; Admin Dose 0.5 MG; Start 10/29/18 at 09:00 Ipratropium [place] (Atrovent 0.02% (Neb)) 0.5 mg Q6H RESP THERAPY HHN Last administered on 11/10/18 07:59; Admin Dose 0.5 MG; Start 10/29/18 at 08:00 Lansoprazole (Prevacid) 30 mg DAILY@06 GTB Last administered on 11/10/18 06:42; Admin Dose 30 MG; Start 10/31/18 at 06:00 Metoprolol Tartrate (Lopressor) 25 mg BID PO Last administered on 11/10/18 08:54; Admin Dose 25 MG; Start 10/31/18 at 12:00 Sodium Phosphate (Neutra-Phos) 250 mg BID PO Last administered on 11/10/18 08:53; Admin Dose 250 MG; Start 11/01/18 at 09:00 Apixaban (Eliquis) 2.5 mg BID PO Last administered on 11/10/18 08:54; Admin Dose 2.5 MG; Start 11/02/18 at 09:00 Morphine Sulfate (morphine) 15 mg Q4H PRN PO SEVERE PAIN LEVEL 7-10; Start 11/04/18 at 14:30 Lorazepam (Ativan) 1 mg Q6H PRN IV SEIZURES; Start 11/04/18 at 15:00 Lorazepam (Ativan) 1 mg Q6H PRN PO ANXIETY; Start 11/04/18 at 15:00 Docusate Sodium (Colace Liquid Cup) 100 mg BID NGT Last administered on 11/10/18at 08:53; Admin Dose 100 MG; Start 11/04/18 at 21:00 Bisacodyl (Dulcolax Supp) 10 mg DAILY PRN [place] CONSTIPATION Last administered on 11/05/18at 12:21; Admin Dose 10 MG; Start 11/05/18 at 11:30 Furosemide (Lasix) 20 mg DAILY IV Last administered on 11/10/18at 08:54; Admin Dose 20 MG; Start 11/08/18 at 09:00 IV Flush (NS 10 ml) 10 ml PRN PRN IV IV PROTOCOL; Start 11/07/18 at 15:00 Levetiracetam (Keppra Liquid) 500 mg BID GTB Last administered on 11/10/18at 08:53; Admin Dose 500 MG; Start 11/08/18 at 21:00 LUIS FERGUSON Nov 10, 2018 13:16
--- NOTE | 2018-11-10 20:15 | CONS ---
Date/Time of Note Date/Time of Note DATE: 11/10/18 TIME: 20:12 Assessment/Plan Assessment/Plan Hospital Course ID PROGRESS NOTE CURRENT ABX: DAY # = OFF ABX s/p Vanco IV, Bactrim, Cefepime 24H INTERVAL SUMMARY * Low grade temps -- Tmax 99.9 * 73 obese F => encephalopathic, lethargic, noncommunicative on the Vent - VSS, NAD * INDWELLINGS: Trach, NGT,Damon, NEW PICC LINE * DIAGNOSTICS: Chest x-ray on admission revealed extensive bilateral pneumonia or pulmonary edema. * 11/07/18 CXR: IMPRESSION: * 1. Right arm PICC line is over the inferior SVC. Negative for a postprocedure pneumothorax. * 2. Enteric tube tip is in the gastric fundus and the side port is at the GE junction. Consider advancement. * 3. Diffuse lung disease with diffuse reticulonodular opacities is similar to the prior exam. It is unclear if this is due to infection, pulmonary edema superimposed on emphysema or chronic interstitial lung disease. This could better be evaluated with CT. Enlarged pulmonary arteries suggest pulmonary artery hypertension. * 4. Left lower lobe consolidation may represent atelectasis, aspiration or pneumonia. * 5. Small bilateral pleural effusions are unchanged. 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 MULTI DRUG RESISTANT ORGANISM * 10/28/18 BCX (-) * 10/29/18 TRACH RESPIRATORY CULTURE Final Organism 1 PSEUDOMONAS AERUGINOSA QUANTITY 1+ Organism 2 PROVIDENCIA STUARTII QUANTITY 1+ Organism 3 STENOTROPHOMONAS MALTOPHILIA QUANTITY 1+ PHYSICAL EXAMINATION: GENERAL: Afebrile, VSS, A/A/responsive, chronically ill-appearing HEENT: AT, NC, anicteric NECK: Supple,(+)TRACH secure CHEST: Equal chest rise bilaterally, without dyspnea on observation HEART: Pulse RRR ABDOMEN: Soft EXTREMITIES: Warm, dry, Bilateral lower extremities edema and erythema. SKIN: FUNGAL MOISTURE DERMATITIS UNDER BREASTS MASH BRAD-ANAL no diaphoresis ID ASSESSMENT 73 yo MORBID OBESE F admit with 1. s/p SIRS w/ low grade temps, leukocytosis on 10/31/18 = due to GNR UTI= RESOLVED * 10/28/18 Urine Cx (+) URINE CULTURE Final Organism 1 K PNEUMO ESBL COLONY COUNT >100,000 CFU/ml . MULTI DRUG RESISTANT ORGANISM 2. Status post bacteremia, consistent with contaminant = RESOLVED 3. Acute encephalopathy secondary to CVA 4. Seizure disorder/status epilepticus 5. Status post healthcare associated pneumonia 6. (+) Tracheobronchitis == Polymicrobial GNR = SUSPECT TRACH COLONIZATION * 10/29/18 TRACH RESPIRATORY CULTURE Final Organism 1 PSEUDOMONAS AERUGINOSA Organism 2 PROVIDENCIA STUARTII Organism 3 STENOTROPHOMONAS MALTOPHILIA 7. Chronic respiratory failure=> (+)Trach * COPD Emphysema * Interstitial Lung Disease * (+)PHTN 8. Bilateral superficial venous thrombus within the cephalic veins. 9. Bilateral lower extremity cellulitis, likely acute on chronic = RESOLVED 10. Breast folds = moisture yeast dermatitis 11. Atrial fibrillation. 12. Hx of CHF w/pulmonary edema 13. Anemia. (-)MRSA NARES w/hx of prior (+)MRSA (+)VRE stool colonization ABX ALLERGIES: KNDA CURRENT ABX: DAY #OFF ABX s/p Vanco IV, Bactrim, Cefepime ID RECOMMENDATIONS Continue to monitor OFF ABX Low grade Temps today @ 99.9 == For TEMP > 101.5 repeat BCX, Urine . Result Diagram: 11/08/18 0525 11/08/18 0525 Consultation Date/Type/Reason Admit Date/Time Oct 27, 2018 at 08:14 Initial Consult Date 10/28/18 Requesting Provider: JAYLEN LUGO MD Exam/Review of Systems Vital Signs Vitals Vital Signs Date Temp Pulse Resp B/P (MAP) Pulse Ox O2 O2 Flow FiO2 Time Delivery Rate 11/10/18 98.9 82 18 135/82 96 20:09 (99) 11/10/18 30 19:42 11/09/18 Mechanical 20:02 Ventilator Intake and Output 11/09/18 11/09/18 11/10/18 1515:00 23:00 07:00 IntakeIntake Total 800 ml 1000 ml OutputOutput Total 1900 ml 1300 ml BalanceBalance -1100 ml -300 ml Medications Medications Current Medications Metoprolol Tartrate (Lopressor) 5 mg Q4H PRN IV HR>110 Hold SBP<100 Last administered on 10/28/18 05:38; Admin Dose 5 MG; Start 10/27/18 at 13:30 Acetaminophen (Tylenol Supp) 650 mg Q6H PRN [place] FEVER GREATER THAN 100.6 Last administered on 10/28/18 03:07; Admin Dose 650 MG; Start 10/28/18 at 02:30 Hydralazine HCl (Apresoline) 10 mg Q4H PRN IV SBP>170; Start 10/28/18 at 11:00 Mupirocin (Bactroban) 1 applic BID TOP Last administered on 11/10/18 08:55; Admin Dose 1 APPLIC; Start 10/28/18 at 21:00 Levalbuterol (Xopenex Neb) 1.25 mg Q6H RESP THERAPY HHN Last administered on 11/10/18 19:51; Admin Dose 1.25 MG; Start 10/29/18 at 08:00 Budesonide (Pulmicort (Neb)) 0.5 mg BID RESP THERAPY HHN Last administered on 11/10/18 19:57; Admin Dose 0.5 MG; Start 10/29/18 at 09:00 Ipratropium [place] (Atrovent 0.02% (Neb)) 0.5 mg Q6H RESP THERAPY HHN Last administered on 11/10/18 19:51; Admin Dose 0.5 MG; Start 10/29/18 at 08:00 Lansoprazole (Prevacid) 30 mg DAILY@06 GTB Last administered on 11/10/18 06:42; Admin Dose 30 MG; Start 10/31/18 at 06:00 Metoprolol Tartrate (Lopressor) 25 mg BID PO Last administered on 11/10/18 08:54; Admin Dose 25 MG; Start 10/31/18 at 12:00 Sodium Phosphate (Neutra-Phos) 250 mg BID PO Last administered on 11/10/18 08:53; Admin Dose 250 MG; Start 11/01/18 at 09:00 Apixaban (Eliquis) 2.5 mg BID PO Last administered on 11/10/18 08:54; Admin Dose 2.5 MG; Start 11/02/18 at 09:00 Morphine Sulfate (morphine) 15 mg Q4H PRN PO SEVERE PAIN LEVEL 7-10; Start 11/04/18 at 14:30 Lorazepam (Ativan) 1 mg Q6H PRN IV SEIZURES; Start 11/04/18 at 15:00 Lorazepam (Ativan) 1 mg Q6H PRN PO ANXIETY; Start 11/04/18 at 15:00 Docusate Sodium (Colace Liquid Cup) 100 mg BID NGT Last administered on 11/10/18 08:53; Admin Dose 100 MG; Start 11/04/18 at 21:00 Bisacodyl (Dulcolax Supp) 10 mg DAILY PRN [place] CONSTIPATION Last administered on 11/05/18 12:21; Admin Dose 10 MG; Start 11/05/18 at 11:30 Furosemide (Lasix) 20 mg DAILY IV Last administered on 11/10/18at 08:54; Admin Dose 20 MG; Start 11/08/18 at 09:00 IV Flush (NS 10 ml) 10 ml PRN PRN IV IV PROTOCOL; Start 11/07/18 at 15:00 Levetiracetam (Keppra Liquid) 500 mg BID GTB Last administered on 11/10/18 08:53; Admin Dose 500 MG; Start 11/08/18 at 21:00 ELIAS CORONEL NP Nov 10, 2018 20:15
[2018-11-11] VITALS (24 sets, daily range): BP systolic 117–139; BP diastolic 52–88; PULSE 60–88; RESP 16–21
[2018-11-11] MEDS: IPRATROPIUM (NEB) 0.5 MG/2.5 ML AMP HHN SCH ×4 (01:16→19:36)
[2018-11-11] MEDS: LEVALBUTEROL (NEB) 1.25 MG/0.5 ML AMP HHN SCH ×4 (01:16→19:36)
[2018-11-11] MEDS: LANSOPRAZOLE 30 MG CAP GTB SCH (05:34)
[2018-11-11] MEDS: BUDESONIDE (NEB) 0.5MG/2ML AMP HHN SCH ×2 (08:05→19:36)
--- NOTE | 2018-11-11 08:47 | PN ---
DATE: 11/11/2018 SUBJECTIVE: The patient is stable. No events overnight. No hemoptysis, hematemesis, hematochezia. OBJECTIVE: VITAL SIGNS: Blood pressure is 129/88, respirations 18, pulse 88, temperature 98.8. HEENT: Head is normocephalic. NECK: Supple. HEART: Regular rate. LUNGS: Show diminished breath sounds at the base. ABDOMEN: Soft, nontender to palpation without rebound or guarding. EXTREMITIES: Negative for clubbing, cyanosis. Trace edema. DERMATOLOGIC: No rashes. MUSCULOSKELETAL: No joint effusions. NEUROLOGIC: No change in exam. MEDICATIONS: The patient's medications have been reviewed. LABORATORY DATA: Currently pending. ASSESSMENT AND PLAN: 1. Nonoliguric acute kidney injury on top of chronic kidney disease with previous baseline creatinin e of 1.5 mg/dL. Etiology of acute kidney injury is secondary to hemodynamics. The patient's renal f unction has been fluctuating. The patient's diuretics were deescalated. At this point, continue cur rent treatment plan. Follow up renal panel. Continue supportive care. Monitor closely. 2. Hypernatremia, improved. Continue free water flushes. 3. Acute diastolic heart failure, improving. Continue medical management. 4. Anemia. Continue to monitor hemoglobin and hematocrit levels. 5. Mineral bone disorder, monitor calcium and phosphorus levels. 6. Hypomagnesemia. Continue to monitor and replete as needed. 7. Atrial fibrillation. Continue medical management. 8. Ventilator-dependent respiratory failure. Vent settings and ABG was reviewed. Continue to monit or. Follow up with pulmonary. 9. Dysphagia. Continue tube feeding. 10. Seizure disorder. Continue medical management. 11. Sepsis. The patient is completing antibiotic course. 12. Acute cerebrovascular accident. Continue current treatment plan. Follow up with neurology. 13. Acute encephalopathy secondary to cerebrovascular accident. Continue to monitor. Dictated By: RAJINDER ATWOOD DO NR/NTS Conf#: [id number] DID#: [id number] CC: MENDEL FIELDS MD; ROSALVA SANCHES MD;*EndCC*
[2018-11-11] MEDS: NEUTRA-PHOS 250 MG PACKET PO SCH ×2 (09:34→21:38)
[2018-11-11] MEDS: DOCUSATE SODIUM 10 MG/ML (10ML CUP) NGT SCH ×2 (09:34→21:36)
[2018-11-11] MEDS: LEVETIRACETAM (100 MG/ML) 5ML CUP GTB SCH ×2 (09:34→21:36)
[2018-11-11] MEDS: APIXABAN 5 MG TABLET PO SCH ×2 (09:35→21:38)
[2018-11-11] MEDS: FUROSEMIDE 20 MG INJ IV SCH (09:35)
[2018-11-11] MEDS: METOPROLOL 25 MG TAB PO SCH ×2 (09:36→21:38)
[2018-11-11] MEDS: BALSAM PERU/CASTOR OIL 60 GM TUBE TOP SCH (09:38)
[2018-11-11] MEDS: MUPIROCIN 2% 22 GM OINT TOP SCH ×2 (09:38→21:39)
--- NOTE | 2018-11-11 11:27 | CONS ---
Date/Time of Note Date/Time of Note DATE: 11/11/18 TIME: 11:23 Assessment/Plan Assessment/Plan Hospital Course ID PROGRESS NOTE CURRENT ABX: DAY # = OFF ABX s/p Vanco IV, Bactrim, Cefepime 11/08/18 0525 11/08/18 0525 24H INTERVAL SUMMARY * Afebrile -- yesterday Tmax 99.9 -- Eyes open, non-tracking => encephalopathic,noncommunicative on the Vent - VSS, NAD * INDWELLINGS: Trach, NGT,Damon, NEW PICC LINE * DIAGNOSTICS: Chest x-ray on admission revealed extensive bilateral pneumonia or pulmonary edema. * 11/07/18 CXR: IMPRESSION: * 1. Right arm PICC line is over the inferior SVC. Negative for a postprocedure pneumothorax. * 2. Enteric tube tip is in the gastric fundus and the side port is at the GE junction. Consider advancement. * 3. Diffuse lung disease with diffuse reticulonodular opacities is similar to the prior exam. It is unclear if this is due to infection, pulmonary edema superimposed on emphysema or chronic interstitial lung disease. This could better be evaluated with CT. Enlarged pulmonary arteries suggest pulmonary artery hypertension. * 4. Left lower lobe consolidation may represent atelectasis, aspiration or pneumonia. * 5. Small bilateral pleural effusions are unchanged. 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 MULTI DRUG RESISTANT ORGANISM * 10/28/18 BCX (-) * 10/29/18 TRACH RESPIRATORY CULTURE Final Organism 1 PSEUDOMONAS AERUGINOSA QUANTITY 1+ Organism 2 PROVIDENCIA STUARTII QUANTITY 1+ Organism 3 STENOTROPHOMONAS MALTOPHILIA QUANTITY 1+ PHYSICAL EXAMINATION: GENERAL: Afebrile, VSS, A/A/responsive, chronically ill-appearing HEENT: AT, NC, anicteric NECK: Supple,(+)TRACH secure CHEST: Equal chest rise bilaterally, without dyspnea on observation HEART: Pulse RRR ABDOMEN: Soft EXTREMITIES: Warm, dry, Bilateral lower extremities edema and erythema. SKIN: FUNGAL MOISTURE DERMATITIS UNDER BREASTS MASH BRAD-ANAL no diaphoresis ID ASSESSMENT 73 yo MORBID OBESE F admit with 1. s/p SIRS w/ low grade temps, leukocytosis on 10/31/18 = due to GNR UTI= RESOLVED * 10/28/18 Urine Cx (+) URINE CULTURE Final Organism 1 K PNEUMO ESBL COLONY COUNT >100,000 CFU/ml . MULTI DRUG RESISTANT ORGANISM 2. Status post bacteremia, consistent with contaminant = RESOLVED 3. Acute encephalopathy secondary to CVA 4. Seizure disorder/status epilepticus 5. Status post healthcare associated pneumonia 6. (+) Tracheobronchitis == Polymicrobial GNR = SUSPECT TRACH COLONIZATION * 10/29/18 TRACH RESPIRATORY CULTURE Final Organism 1 PSEUDOMONAS AERUGINOSA Organism 2 PROVIDENCIA STUARTII Organism 3 STENOTROPHOMONAS MALTOPHILIA 7. Chronic respiratory failure=> (+)Trach * COPD Emphysema * Interstitial Lung Disease * (+)PHTN 8. Bilateral superficial venous thrombus within the cephalic veins. 9. Bilateral lower extremity cellulitis, likely acute on chronic = RESOLVED 10. Breast folds = moisture yeast dermatitis 11. Atrial fibrillation. 12. Hx of CHF w/pulmonary edema 13. Anemia. 14. Dysphagia (-)MRSA NARES w/hx of prior (+)MRSA (+)VRE stool colonization ABX ALLERGIES: KNDA CURRENT ABX: DAY #OFF ABX s/p Vanco IV, Bactrim, Cefepime ID RECOMMENDATIONS Continue to monitor OFF ABX Low grade Temps today @ 99.9 == For TEMP > 101.5 repeat BCX, Urine . Result Diagram: 11/08/18 0525 11/08/18 0525 Consultation Date/Type/Reason Admit Date/Time Oct 27, 2018 at 08:14 Initial Consult Date 10/28/18 Requesting Provider: JAYLEN LUGO MD Exam/Review of Systems Vital Signs Vitals Vital Signs Date Temp Pulse Resp B/P (MAP) Pulse Ox O2 O2 Flow FiO2 Time Delivery Rate 11/11/18 60 08:00 11/11/18 98.8 18 129/88 97 Mechanical 07:29 (102) Ventilator 11/11/18 30 05:43 Intake and Output 11/10/18 11/10/18 11/11/18 1515:00 23:00 07:00 IntakeIntake Total 1000 ml 1000 ml OutputOutput Total 900 ml 1000 ml BalanceBalance 100 ml 0 ml Medications Medications Current Medications Metoprolol Tartrate (Lopressor) 5 mg Q4H PRN IV HR>110 Hold SBP<100 Last administered on 10/28/18 05:38; Admin Dose 5 MG; Start 10/27/18 at 13:30 Acetaminophen (Tylenol Supp) 650 mg Q6H PRN [place] FEVER GREATER THAN 100.6 Last administered on 10/28/18 03:07; Admin Dose 650 MG; Start 10/28/18 at 02:30 Hydralazine HCl (Apresoline) 10 mg Q4H PRN IV SBP>170; Start 10/28/18 at 11:00 Mupirocin (Bactroban) 1 applic BID TOP Last administered on 11/11/18 09:38; Admin Dose 1 APPLIC; Start 10/28/18 at 21:00 Levalbuterol (Xopenex Neb) 1.25 mg Q6H RESP THERAPY HHN Last administered on 11/11/18 07:56; Admin Dose 1.25 MG; Start 10/29/18 at 08:00 Budesonide (Pulmicort (Neb)) 0.5 mg BID RESP THERAPY HHN Last administered on 11/11/18 08:05; Admin Dose 0.5 MG; Start 10/29/18 at 09:00 Ipratropium [place] (Atrovent 0.02% (Neb)) 0.5 mg Q6H RESP THERAPY HHN Last administered on 11/11/18 07:56; Admin Dose 0.5 MG; Start 10/29/18 at 08:00 Lansoprazole (Prevacid) 30 mg DAILY@06 GTB Last administered on 11/11/18 05:34; Admin Dose 30 MG; Start 10/31/18 at 06:00 Metoprolol Tartrate (Lopressor) 25 mg BID PO Last administered on 11/11/18 09:36; Admin Dose 25 MG; Start 10/31/18 at 12:00 Sodium Phosphate (Neutra-Phos) 250 mg BID PO Last administered on 11/11/18 09:34; Admin Dose 250 MG; Start 11/01/18 at 09:00 Apixaban (Eliquis) 2.5 mg BID PO Last administered on 11/11/18 09:35; Admin Dose 2.5 MG; Start 11/02/18 at 09:00 Morphine Sulfate (morphine) 15 mg Q4H PRN PO SEVERE PAIN LEVEL 7-10; Start 11/04/18 at 14:30 Lorazepam (Ativan) 1 mg Q6H PRN IV SEIZURES; Start 11/04/18 at 15:00 Lorazepam (Ativan) 1 mg Q6H PRN PO ANXIETY; Start 11/04/18 at 15:00 Docusate Sodium (Colace Liquid Cup) 100 mg BID NGT Last administered on 11/11/18at 09:34; Admin Dose 100 MG; Start 11/04/18 at 21:00 Bisacodyl (Dulcolax Supp) 10 mg DAILY PRN [place] CONSTIPATION Last administered on 11/05/18at 12:21; Admin Dose 10 MG; Start 11/05/18 at 11:30 Furosemide (Lasix) 20 mg DAILY IV Last administered on 11/11/18at 09:35; Admin Dose 20 MG; Start 11/08/18 at 09:00 IV Flush (NS 10 ml) 10 ml PRN PRN IV IV PROTOCOL; Start 11/07/18 at 15:00 Levetiracetam (Keppra Liquid) 500 mg BID GTB Last administered on 11/11/18 09:34; Admin Dose 500 MG; Start 11/08/18 at 21:00 ELIAS CORONEL NP Nov 11, 2018 11:27
--- NOTE | 2018-11-11 12:05 | CONS ---
Assessment/Plan Assessment/Plan Hospital Course A: 73 yo F with reported Hx of afib, HTN, and other comorbidities...who presents with ams, tachyarrhythmia, and involuntary muscle jerking...for which neurology is consulted. The clinical picture is consistent w/ status epilepticus. The pt was noted to be in afib with RVR on readmission, which raises concern for superimposed acute stroke. Encephalitis is unlikely.. 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 EEG is notable for frequent right hemispheric epileptiform discharges, which is clinically consistent with status epilepticus. Echo is unrevealing. Repeat CTH is unrevealing. P: Cont maintenance Keppra 500 BID for now Ativan iv for prolonged seizure > 5min or for cluster Continue Lipitor for secondary stroke prevention Eliquis OK for the same Other medical management and supportive care per primary Will follow clinically Result Diagram: 11/08/18 0525 11/08/18 0525 Consultation Date/Type/Reason Admit Date/Time Oct 27, 2018 at 08:14 Type of Consult Neurology Requesting Provider: JAYLEN LUGO MD Date/Time of Note DATE: 11/11/18 TIME: 12:05 24 HR Interval Summary Free Text/Dictation Continues telemetry monitoring. No acute events reported. Pt is without complaints at this time. Subjective hx not possible: pt non-verbal Exam Vital Signs Vitals Vital Signs Date Temp Pulse Resp B/P (MAP) Pulse Ox O2 O2 Flow FiO2 Time Delivery Rate 11/11/18 74 16 100 30 11:30 11/11/18 98.7 133/82 Mechanical 11:22 (99) Ventilator Intake and Output 11/10/18 11/10/18 11/11/18 1515:00 23:00 07:00 IntakeIntake Total 1000 ml 1000 ml OutputOutput Total 900 ml 1000 ml BalanceBalance 100 ml 0 ml Exam PE: Gen Appearance: No Apparent Distress HEENT: Has trach Cardiovascular: SR on telemetry Abdomen: Soft Extremities: Dry NE: The patient was awake and alert though nonverbal, d/t trach. Jaw tremors were n oted, however pt was able to mouth words. Was blinking spontaneously. The pt was able to track and follow simple axial and appendicular commands. Cranial nerve examination was limited by mental status. Pupils were equal, round and briskly reactive to light. There was no afferent pupillary defect. Funduscopic examination was limited. Face was grossly symmetric, w/ a present cough/gag reflex. Tone was increased in her upper extremities . Muscle bulk was slightly diminished. I did not see fasciculations. The patient moved her upper extremities spontaneously and withdrew her lowers extremities to noxious stimuli. Coordination and gait testing was limited by mental status. Arm and leg reflexes were symmetric. Doshi's sign was absent. Plantar responses were flexor. JOE WYATT NP Nov 11, 2018 12:05 CHRISTIANA LARSON Nov 11, 2018 20:40
--- NOTE | 2018-11-11 13:45 | PN ---
Date/Time of Note Date/Time of Note DATE: 11/11/18 TIME: 13:44 Assessment/Plan VTE Prophylaxis Risk score (from Ns)>0 risk: 6 SCD applied (from Ns): Yes Pharmacological prophylaxis: LMWH Lines/Catheters IV C[facility] Type (from [facility] PICC Line Central line still needed: Yes Urinary Cath still in place: Yes Reason Cath still needed: skin wounds contaminated by urine Assessment/Plan Hospital Course 1. Acute encephalopathy. - neurology follows; EEG done 2. Fever and leukocytosis with positive blood culture. Continue IV vancomycin and cefepime. Further recommendation will depend on patient's hospital course and recommendation from Dr. Melendez. 3. Chronic obstructive pulmonary disease. Continue breathing treatment. 4. Paroxysmal atrial fibrillation. The patient is currently in atrial fibrillation. The patient is on metoprolol on p.r.n. basis. The patient is unable to take anything p.o. since she is encephalopathic. The patient does not have a G-tube or NG tube. - CVA prophylaxis- Lovenox based on creatinine - GI prophylaxis, continue Protonix. Result Diagram: 11/08/18 0525 11/08/18 0525 Subjective 24 Hr Interval Summary Free Text/Dictation Eyes open, noninteractive Exam/Review of Systems Vital Signs Vitals Vital Signs Date Temp Pulse Resp B/P (MAP) Pulse Ox O2 O2 Flow FiO2 Time Delivery Rate 11/11/18 76 12:00 11/11/18 16 100 30 11:30 11/11/18 98.7 133/82 Mechanical 11:22 (99) Ventilator Intake and Output 11/10/18 11/10/18 11/11/18 1515:00 23:00 07:00 IntakeIntake Total 1000 ml 1000 ml OutputOutput Total 900 ml 1000 ml BalanceBalance 100 ml 0 ml Exam Constitutional: well developed Head: normocephalic, atraumatic Neck: supple Respiratory: diminished breath sounds Cardiovascular: regular rate and rhythm Gastrointestinal: soft, non-tender Extremities: normal pulses Medications Medications Current Medications Metoprolol Tartrate (Lopressor) 5 mg Q4H PRN IV HR>110 Hold SBP<100 Last administered on 10/28/18at 05:38; Admin Dose 5 MG; Start 10/27/18 at 13:30 Acetaminophen (Tylenol Supp) 650 mg Q6H PRN [place] FEVER GREATER THAN 100.6 Last administered on 10/28/18 03:07; Admin Dose 650 MG; Start 10/28/18 at 02:30 Hydralazine HCl (Apresoline) 10 mg Q4H PRN IV SBP>170; Start 10/28/18 at 11:00 Mupirocin (Bactroban) 1 applic BID TOP Last administered on 11/11/18 09:38; Admin Dose 1 APPLIC; Start 10/28/18 at 21:00 Levalbuterol (Xopenex Neb) 1.25 mg Q6H RESP THERAPY HHN Last administered on 11/11/18 13:28; Admin Dose 1.25 MG; Start 10/29/18 at 08:00 Budesonide (Pulmicort (Neb)) 0.5 mg BID RESP THERAPY HHN Last administered on 11/11/18 08:05; Admin Dose 0.5 MG; Start 10/29/18 at 09:00 Ipratropium [place] (Atrovent 0.02% (Neb)) 0.5 mg Q6H RESP THERAPY HHN Last administered on 11/11/18 13:28; Admin Dose 0.5 MG; Start 10/29/18 at 08:00 Lansoprazole (Prevacid) 30 mg DAILY@06 GTB Last administered on 11/11/18 05:34; Admin Dose 30 MG; Start 10/31/18 at 06:00 Metoprolol Tartrate (Lopressor) 25 mg BID PO Last administered on 11/11/18 09:36; Admin Dose 25 MG; Start 10/31/18 at 12:00 Sodium Phosphate (Neutra-Phos) 250 mg BID PO Last administered on 11/11/18 09:34; Admin Dose 250 MG; Start 11/01/18 at 09:00 Apixaban (Eliquis) 2.5 mg BID PO Last administered on 11/11/18 09:35; Admin Dose 2.5 MG; Start 11/02/18 at 09:00 Morphine Sulfate (morphine) 15 mg Q4H PRN PO SEVERE PAIN LEVEL 7-10; Start 11/04/18 at 14:30 Lorazepam (Ativan) 1 mg Q6H PRN IV SEIZURES; Start 11/04/18 at 15:00 Lorazepam (Ativan) 1 mg Q6H PRN PO ANXIETY; Start 11/04/18 at 15:00 Docusate Sodium (Colace Liquid Cup) 100 mg BID NGT Last administered on 11/11/18at 09:34; Admin Dose 100 MG; Start 11/04/18 at 21:00 Bisacodyl (Dulcolax Supp) 10 mg DAILY PRN [place] CONSTIPATION Last administered on 11/05/18at 12:21; Admin Dose 10 MG; Start 11/05/18 at 11:30 Furosemide (Lasix) 20 mg DAILY IV Last administered on 11/11/18at 09:35; Admin Dose 20 MG; Start 11/08/18 at 09:00 IV Flush (NS 10 ml) 10 ml PRN PRN IV IV PROTOCOL; Start 11/07/18 at 15:00 Levetiracetam (Keppra Liquid) 500 mg BID GTB Last administered on 11/11/18 09:34; Admin Dose 500 MG; Start 11/08/18 at 21:00 ROSALVA SANCHES Nov 11, 2018 13:45
--- NOTE | 2018-11-11 13:55 | CONS ---
Date/Time of Note Date/Time of Note DATE: 11/11/18 TIME: 13:54 Assessment/Plan Assessment/Plan Hospital Course IMPRESSION: 1. Atrial fibrillation with a rapid ventricular response.-now in SR and remains 2. Abnormal electrocardiogram with ST depressions during atrial fibrillation with rapid ventricular response. 3. Altered mental state/encephalopathy. 4. Possible seizure-like activity. 5. Congestive heart failure, diastolic, chronic. 6. Hypertension. 7. Urinary tract infection. 8. Renal failure. 9. Leukocytosis. 10. bacteremia 11.fevers Recc: -Tele -Continue IVP BB PRN -continue PO BB -Continue eliquis -Continue abx's and f/u cx data -IVP PRN hydralazine -Continue bronchodilators -follow MS closely -Continue lasix and follow volume status closely Result Diagram: 11/08/18 0525 11/08/18 0525 Consultation Date/Type/Reason Admit Date/Time Oct 27, 2018 at 08:14 Initial Consult Date 10/27/18 Type of Consult cardiology Reason for Consultation CHF Requesting Provider: JAYLEN LUGO MD Exam/Review of Systems Vital Signs Vitals Vital Signs Date Temp Pulse Resp B/P (MAP) Pulse Ox O2 O2 Flow FiO2 Time Delivery Rate 11/11/18 76 12:00 11/11/18 16 100 30 11:30 11/11/18 98.7 133/82 Mechanical 11:22 (99) Ventilator Intake and Output 11/10/18 11/10/18 11/11/18 1515:00 23:00 07:00 IntakeIntake Total 1000 ml 1000 ml OutputOutput Total 900 ml 1000 ml BalanceBalance 100 ml 0 ml Exam Review of Systems: CONSTITUTIONAL: No fevers, chills. PULMONARY: No sob CARDIOVASCULAR: No chest pain/palpitations GASTROINTESTINAL: No nausea/vomiting. GENITOURINARY: No hematuria/dysuria. MUSCULOSKELETAL: No myagias/arthalgias. PSYCHIATRIC: The patient denies depression. NEUROLOGIC: No weakness Constitutional: alert Psych: no complaints Head: normocephalic ENMT: mucosa pink and moist Neck: supple, jvd (9 cm water) Respiratory: clear to auscultation Cardiovascular: regular rate and rhythm Gastrointestinal: soft, non-tender Musculoskeletal: muscle tone (normal) Extremities: edema (none) Neurological: other (No focal deficits) Medications Medications Current Medications Metoprolol Tartrate (Lopressor) 5 mg Q4H PRN IV HR>110 Hold SBP<100 Last administered on 10/28/18 05:38; Admin Dose 5 MG; Start 10/27/18 at 13:30 Acetaminophen (Tylenol Supp) 650 mg Q6H PRN [place] FEVER GREATER THAN 100.6 Last administered on 10/28/18 03:07; Admin Dose 650 MG; Start 10/28/18 at 02:30 Hydralazine HCl (Apresoline) 10 mg Q4H PRN IV SBP>170; Start 10/28/18 at 11:00 Mupirocin (Bactroban) 1 applic BID TOP Last administered on 11/11/18 09:38; Admin Dose 1 APPLIC; Start 10/28/18 at 21:00 Levalbuterol (Xopenex Neb) 1.25 mg Q6H RESP THERAPY HHN Last administered on 11/11/18 13:28; Admin Dose 1.25 MG; Start 10/29/18 at 08:00 Budesonide (Pulmicort (Neb)) 0.5 mg BID RESP THERAPY HHN Last administered on 11/11/18 08:05; Admin Dose 0.5 MG; Start 10/29/18 at 09:00 Ipratropium [place] (Atrovent 0.02% (Neb)) 0.5 mg Q6H RESP THERAPY HHN Last administered on 11/11/18 13:28; Admin Dose 0.5 MG; Start 10/29/18 at 08:00 Lansoprazole (Prevacid) 30 mg DAILY@06 GTB Last administered on 11/11/18 05:34; Admin Dose 30 MG; Start 10/31/18 at 06:00 Metoprolol Tartrate (Lopressor) 25 mg BID PO Last administered on 11/11/18 09:36; Admin Dose 25 MG; Start 10/31/18 at 12:00 Sodium Phosphate (Neutra-Phos) 250 mg BID PO Last administered on 11/11/18 09:34; Admin Dose 250 MG; Start 11/01/18 at 09:00 Apixaban (Eliquis) 2.5 mg BID PO Last administered on 11/11/18 09:35; Admin Dose 2.5 MG; Start 11/02/18 at 09:00 Morphine Sulfate (morphine) 15 mg Q4H PRN PO SEVERE PAIN LEVEL 7-10; Start 11/04/18 at 14:30 Lorazepam (Ativan) 1 mg Q6H PRN IV SEIZURES; Start 11/04/18 at 15:00 Lorazepam (Ativan) 1 mg Q6H PRN PO ANXIETY; Start 11/04/18 at 15:00 Docusate Sodium (Colace Liquid Cup) 100 mg BID NGT Last administered on 8at 09:34; Admin Dose 100 MG; Start 11/04/18 at 21:00 Bisacodyl (Dulcolax Supp) 10 mg DAILY PRN [place] CONSTIPATION Last administered on 11/05/18at 12:21; Admin Dose 10 MG; Start 11/05/18 at 11:30 Furosemide (Lasix) 20 mg DAILY IV Last administered on 11/11/18at 09:35; Admin Dose 20 MG; Start 11/08/18 at 09:00 IV Flush (NS 10 ml) 10 ml PRN PRN IV IV PROTOCOL; Start 11/07/18 at 15:00 Levetiracetam (Keppra Liquid) 500 mg BID GTB Last administered on 11/11/18at 09:34; Admin Dose 500 MG; Start 11/08/18 at 21:00 LUIS FERGUSON Nov 11, 2018 13:55
[2018-11-12] VITALS (23 sets, daily range): BP systolic 112–125; BP diastolic 58–65; PULSE 66–88; RESP 16–22
[2018-11-12] MEDS: LEVALBUTEROL (NEB) 1.25 MG/0.5 ML AMP HHN SCH ×4 (02:07→20:48)
[2018-11-12] MEDS: IPRATROPIUM (NEB) 0.5 MG/2.5 ML AMP HHN SCH ×4 (02:07→20:48)
[2018-11-12] MEDS: LANSOPRAZOLE 30 MG CAP GTB SCH (05:27)
[2018-11-12] MEDS: BUDESONIDE (NEB) 0.5MG/2ML AMP HHN SCH ×2 (08:39→20:48)
[2018-11-12] MEDS: NEUTRA-PHOS 250 MG PACKET PO SCH ×2 (09:33→21:30)
[2018-11-12] MEDS: APIXABAN 5 MG TABLET PO SCH ×2 (09:33→21:58)
[2018-11-12] MEDS: DOCUSATE SODIUM 10 MG/ML (10ML CUP) NGT SCH ×2 (09:33→21:30)
[2018-11-12] MEDS: LEVETIRACETAM (100 MG/ML) 5ML CUP GTB SCH ×2 (09:33→21:30)
[2018-11-12] MEDS: METOPROLOL 25 MG TAB PO SCH ×2 (09:34→21:31)
[2018-11-12] MEDS: BALSAM PERU/CASTOR OIL 60 GM TUBE TOP SCH (09:35)
[2018-11-12] MEDS: MUPIROCIN 2% 22 GM OINT TOP SCH ×2 (09:35→21:31)
--- NOTE | 2018-11-12 09:49 | PN ---
DATE: 11/12/2018 SUBJECTIVE: The patient remains on tube feeding. Full ventilator support. No acute events noted. OBJECTIVE: VITAL SIGNS: Blood pressure is 112/59, respiration 18, pulse 85, temperature 98.1. HEENT: Head is normocephalic. NECK: Supple. HEART: Regular rate. LUNGS: Show diminished breath sounds at the base. ABDOMEN: Soft, nontender to palpation without rebound or guarding. EXTREMITIES: Negative for clubbing, cyanosis. Trace edema. DERMATOLOGIC: No rashes. MUSCULOSKELETAL: No joint effusions. NEUROLOGIC: No change in exam. MEDICATIONS: The patient's medications have been reviewed. LABORATORY DATA: Currently pending. ASSESSMENT AND PLAN: 1. Nonoliguric acute kidney injury on top of chronic kidney disease with previous baseline creatinin e of 1.5 mg/dL. The patient's renal function has been fluctuating but overall improved. Likely due to diuretic therapy. The patient's Lasix has been held. At this point, continue to monitor. Contin ue treatment plan, supportive care, renally dose all medication. 2. Hypernatremia. Continue free water flushes. 3. Acute diastolic heart failure. Continue medical management. 4. Anemia. Continue to monitor hemoglobin and hematocrit levels. 5. Mineral bone disorder, monitor calcium and phosphorus levels. 6. Hypomagnesemia. Continue to monitor and replete. 7. Atrial fibrillation. Continue medical management. 8. Ventilator dependent respiratory failure. Vent settings and ABG was reviewed. Continue to monit or. 9. Dysphagia. Continue tube feeding. 10. Seizure disorder. Continue medical management. 11. Sepsis. The patient is completing antibiotic course. 12. Acute cerebrovascular accident. Continue current treatment plan. Follow up with neurology. Dictated By: RAJINDER ATWOOD DO NR/NTS Conf#: [id number] DID#: [id number] CC: MENDEL FIELDS MD; ROSALVA SANCHES MD;*EndCC*
--- NOTE | 2018-11-12 12:27 | CONS ---
Assessment/Plan Assessment/Plan Hospital Course A: 73 yo F with reported Hx of afib, HTN, and other comorbidities...who presents with ams, tachyarrhythmia, and involuntary muscle jerking...for which neurology is consulted. The clinical picture is consistent w/ status epilepticus. The pt was noted to be in afib with RVR on readmission, which raises concern for superimposed acute stroke. Encephalitis is unlikely.. 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 EEG is notable for frequent right hemispheric epileptiform discharges, which is clinically consistent with status epilepticus. Echo is unrevealing. Repeat CTH is unrevealing. P: Cont maintenance Keppra 500 BID for now Ativan iv for prolonged seizure > 5min or for cluster Continue Lipitor for secondary stroke prevention Eliquis OK for the same Other medical management and supportive care per primary Will follow clinically Result Diagram: 11/12/18 0701 11/12/18 0701 Results 24hrs Laboratory Tests Test 11/12/18 07:01 White Blood Count 3.6 L Red Blood Count 2.66 L Hemoglobin 8.2 L Hematocrit 27.6 L Mean Corpuscular Volume 103.8 H Mean Corpuscular Hemoglobin 30.8 Mean Corpuscular Hemoglobin Concent 29.7 L Red Cell Distribution Width 15.8 H Platelet Count 188 # Mean Platelet Volume 10.1 Immature Granulocytes % 0.800 H Neutrophils % 72.1 Lymphocytes % 20.9 Monocytes % 3.8 Eosinophils % 1.9 Basophils % 0.5 Nucleated Red Blood Cells % 0.0 Immature Granulocytes # 0.030 Neutrophils # 2.6 Lymphocytes # 0.8 Monocytes # 0.1 L Eosinophils # 0.1 Basophils # 0.0 Nucleated Red Blood Cells # 0.0 Sodium Level 138 Potassium Level 4.3 Chloride Level 102 Carbon Dioxide Level 30 Anion Gap 6 Blood Urea Nitrogen 33 H Creatinine 0.84 Est Glomerular Filtrat Rate mL/min Glucose Level 104 Calcium Level 8.3 L Phosphorus Level 3.9 Magnesium Level 1.7 Consultation Date/Type/Reason Admit Date/Time Oct 27, 2018 at 08:14 Type of Consult Neurology Requesting Provider: JAYLEN LUGO MD Date/Time of Note DATE: 11/12/18 TIME: 12:27 24 HR Interval Summary Free Text/Dictation Continues telemetry monitoring. No acute events or changes in pt condition reported. Exam Vital Signs Vitals Vital Signs Date Temp Pulse Resp B/P (MAP) Pulse Ox O2 O2 Flow FiO2 Time Delivery Rate 11/12/18 71 08:00 11/12/18 30 08:00 11/12/18 98.0 22 119/59 96 Mechanical 07:55 (79) Ventilator Trach Collar Intake and Output 11/11/18 11/11/18 11/12/18 1515:00 23:00 07:00 IntakeIntake Total 1000 ml 1060 ml OutputOutput Total 1850 ml 1000 ml BalanceBalance -850 ml 60 ml Exam PE: Gen Appearance: No Apparent Distress HEENT: Has trach Cardiovascular: SR on telemetry Abdomen: Soft Extremities: Dry NE: The patient was awake and alert though nonverbal, d/t trach. Jaw tremors were noted, however pt was able to mouth words. Was blinking spontaneously. The pt was able to track and follow simple axial and appendicular commands. Cranial nerve examination was limited by mental status. Pupils were equal, round and briskly reactive to light. There was no afferent pupillary defect. Funduscopic examination was limited. Face was grossly symmetric, w/ a present cough/gag reflex. Tone was increased in her upper extremities . Muscle bulk was slightly diminished. I did not see fasciculations. The patient moved her upper extremities spontaneously and withdrew her lowers extremities to noxious stimuli. Coordination and gait testing was limited by mental status. Arm and leg reflexes were symmetric. Doshi's sign was absent. Plantar responses were flexor. JOE WYATT NP Nov 12, 2018 12:27
--- NOTE | 2018-11-12 12:59 | PN ---
Date/Time of Note Date/Time of Note DATE: 11/12/18 TIME: 12:58 Assessment/Plan VTE Prophylaxis Risk score (from [facility] [place]0 risk: 9 SCD applied (from [facility] [place]): Yes Pharmacological prophylaxis: LMWH Lines/Catheters IV Catheter Type (from [facility]): [place] Urinary Cath still in place: Yes Reason Cath still needed: skin wounds contaminated by urine Assessment/Plan Hospital Course 1. Acute encephalopathy. - neurology follows; EEG done 2. Fever and leukocytosis with positive blood culture. Continue IV vancomycin and cefepime. Further recommendation will depend on patient's hospital course and recommendation from Dr. Melendez. 3. Chronic obstructive pulmonary disease. Continue breathing treatment. 4. Paroxysmal atrial fibrillation. The patient is currently in atrial fibrillation. The patient is on metoprolol on p.r.n. basis. The patient is unable to take anything p.o. since she is encephalopathic. The patient does not have a G-tube or NG tube. - CVA prophylaxis- Lovenox based on creatinine - GI prophylaxis, continue Protonix. Result Diagram: 11/12/18 0711/12/18 0701 Results 24hrs Laboratory Tests Test 11/12/18 07:01 White Blood Count 3.6 L Red Blood Count 2.66 L Hemoglobin 8.2 L Hematocrit 27.6 L Mean Corpuscular Volume 103.8 H Mean Corpuscular Hemoglobin 30.8 Mean Corpuscular Hemoglobin Concent 29.7 L Red Cell Distribution Width 15.8 H Platelet Count 188 # Mean Platelet Volume 10.1 Immature Granulocytes % 0.800 H Neutrophils % 72.1 Lymphocytes % 20.9 Monocytes % 3.8 Eosinophils % 1.9 Basophils % 0.5 Nucleated Red Blood Cells % 0.0 Immature Granulocytes # 0.030 Neutrophils # 2.6 Lymphocytes # 0.8 Monocytes # 0.1 L Eosinophils # 0.1 Basophils # 0.0 Nucleated Red Blood Cells # 0.0 Sodium Level 138 Potassium Level 4.3 Chloride Level 102 Carbon Dioxide Level 30 Anion Gap 6 Blood Urea Nitrogen 33 H Creatinine 0.84 Est Glomerular Filtrat Rate mL/min Glucose Level 104 Calcium Level 8.3 L Phosphorus Level 3.9 Magnesium Level 1.7 Subjective 24 Hr Interval Summary Free Text/Dictation Patient appears stable, with eyes open but noncommunicative Exam/Review of Systems Vital Signs Vitals Vital Signs Date Temp Pulse Resp B/P (MAP) Pulse Ox O2 O2 Flow FiO2 Time Delivery Rate 11/12/18 71 08:00 11/12/18 30 08:00 11/12/18 98.0 22 119/59 96 Mechanical 07:55 (79) Ventilator Trach Collar Intake and Output 11/11/18 11/11/18 11/12/18 1414:59 22:59 06:59 IntakeIntake Total 1000 ml 1060 ml OutputOutput Total 1850 ml 1000 ml BalanceBalance -850 ml 60 ml Exam Constitutional: well developed Head: normocephalic, atraumatic Neck: supple Respiratory: diminished breath sounds Cardiovascular: regular rate and rhythm Gastrointestinal: soft, non-tender Extremities: normal pulses Medications Medications Current Medications Metoprolol Tartrate (Lopressor) 5 mg Q4H PRN IV HR>110 Hold SBP<100 Last administered on 10/28/18at 05:38; Admin Dose 5 MG; Start 10/27/18 at 13:30 Acetaminophen (Tylenol Supp) 650 mg Q6H PRN [place] FEVER GREATER THAN 100.6 Last administered on 10/28/18at 03:07; Admin Dose 650 MG; Start 10/28/18 at 02:30 Hydralazine HCl (Apresoline) 10 mg Q4H PRN IV SBP>170; Start 10/28/18 at 11:00 Mupirocin (Bactroban) 1 applic BID TOP Last administered on 11/12/18 09:35; Admin Dose 1 APPLIC; Start 10/28/18 at 21:00 Levalbuterol (Xopenex Neb) 1.25 mg Q6H RESP THERAPY HHN Last administered on 11/12/18 08:39; Admin Dose 1.25 MG; Start 10/29/18 at 08:00 Budesonide (Pulmicort (Neb)) 0.5 mg BID RESP THERAPY HHN Last administered on 11/12/18 08:39; Admin Dose 0.5 MG; Start 10/29/18 at 09:00 Ipratropium [place] (Atrovent 0.02% (Neb)) 0.5 mg Q6H RESP THERAPY HHN Last administered on 11/12/18 08:39; Admin Dose 0.5 MG; Start 10/29/18 at 08:00 Lansoprazole (Prevacid) 30 mg DAILY@06 GTB Last administered on 11/12/18 05:27; Admin Dose 30 MG; Start 10/31/18 at 06:00 Metoprolol Tartrate (Lopressor) 25 mg BID PO Last administered on 11/12/18 09:34; Admin Dose 25 MG; Start 10/31/18 at 12:00 Sodium Phosphate (Neutra-Phos) 250 mg BID PO Last administered on 11/12/18 09:33; Admin Dose 250 MG; Start 11/01/18 at 09:00 Apixaban (Eliquis) 2.5 mg BID PO Last administered on 11/12/18 09:33; Admin Dose 2.5 MG; Start 11/02/18 at 09:00 Morphine Sulfate (morphine) 15 mg Q4H PRN PO SEVERE PAIN LEVEL 7-10; Start 11/04/18 at 14:30 Lorazepam (Ativan) 1 mg Q6H PRN IV SEIZURES; Start 11/04/18 at 15:00 Lorazepam (Ativan) 1 mg Q6H PRN PO ANXIETY; Start 11/04/18 at 15:00 Docusate Sodium (Colace Liquid Cup) 100 mg BID NGT Last administered on 11/12/18 at 09:33; Admin Dose 100 MG; Start 11/04/18 at 21:00 Bisacodyl (Dulcolax Supp) 10 mg DAILY PRN [place] CONSTIPATION Last administered on 11/05/18at 12:21; Admin Dose 10 MG; Start 11/05/18 at 11:30 IV Flush (NS 10 ml) 10 ml PRN PRN IV IV PROTOCOL; Start 11/07/18 at 15:00 Levetiracetam (Keppra Liquid) 500 mg BID GTB Last administered on 11/12/18 09:33; Admin Dose 500 MG; Start 11/08/18 at 21:00 ROSALVA SANCHES Nov 12, 2018 12:59
--- NOTE | 2018-11-12 13:19 | CONS ---
Date/Time of Note Date/Time of Note DATE: 11/12/18 TIME: 13:16 Assessment/Plan Assessment/Plan Hospital Course IMPRESSION: 1. Atrial fibrillation with a rapid ventricular response.-now in SR and remains 2. Abnormal electrocardiogram with ST depressions during atrial fibrillation with rapid ventricular response. 3. Altered mental state/encephalopathy. 4. Possible seizure-like activity. 5. Congestive heart failure, diastolic, chronic. 6. Hypertension. 7. Urinary tract infection. 8. Renal failure. 9. Leukocytosis. 10. bacteremia 11.fevers Recc: -Tele -Continue IVP BB PRN -continue PO BB -Continue eliquis -Continue abx's and f/u cx data -IVP PRN hydralazine -Continue bronchodilators -follow MS closely -Follow volume status closely with lasix currently held Result Diagram: 11/12/18 0701 11/12/18 0701 Results 24hrs Laboratory Tests Test 11/12/18 07:01 White Blood Count 3.6 L Red Blood Count 2.66 L Hemoglobin 8.2 L Hematocrit 27.6 L Mean Corpuscular Volume 103.8 H Mean Corpuscular Hemoglobin 30.8 Mean Corpuscular Hemoglobin Concent 29.7 L Red Cell Distribution Width 15.8 H Platelet Count 188 # Mean Platelet Volume 10.1 Immature Granulocytes % 0.800 H Neutrophils % 72.1 Lymphocytes % 20.9 Monocytes % 3.8 Eosinophils % 1.9 Basophils % 0.5 Nucleated Red Blood Cells % 0.0 Immature Granulocytes # 0.030 Neutrophils # 2.6 Lymphocytes # 0.8 Monocytes # 0.1 L Eosinophils # 0.1 Basophils # 0.0 Nucleated Red Blood Cells # 0.0 Sodium Level 138 Potassium Level 4.3 Chloride Level 102 Carbon Dioxide Level 30 Anion Gap 6 Blood Urea Nitrogen 33 H Creatinine 0.84 Est Glomerular Filtrat Rate mL/min Glucose Level 104 Calcium Level 8.3 L Phosphorus Level 3.9 Magnesium Level 1.7 Consultation Date/Type/Reason Admit Date/Time Oct 27, 2018 at 08:14 Initial Consult Date 10/27/18 Type of Consult cardiology Reason for Consultation AF Requesting Provider: JAYLEN LUGO MD Exam/Review of Systems Vital Signs Vitals Vital Signs Date Temp Pulse Resp B/P (MAP) Pulse Ox O2 O2 Flow FiO2 Time Delivery Rate 11/12/18 85 20 100 30 13:11 11/12/18 98.0 119/59 Mechanical 07:55 (79) Ventilator Trach Collar Intake and Output 11/11/18 11/11/18 11/12/18 1515:00 23:00 07:00 IntakeIntake Total 1000 ml 1060 ml OutputOutput Total 1850 ml 1000 ml BalanceBalance -850 ml 60 ml Exam Review of Systems: CONSTITUTIONAL: No fevers, chills. PULMONARY: No sob CARDIOVASCULAR: No chest pain/palpitations GASTROINTESTINAL: No nausea/vomiting. GENITOURINARY: No hematuria/dysuria. MUSCULOSKELETAL: No myagias/arthalgias. PSYCHIATRIC: The patient denies depression. NEUROLOGIC: No weakness Constitutional: other (sleeping) Psych: no complaints Head: normocephalic ENMT: mucosa pink and moist Neck: supple, jvd (9 cm water), other (trached) Respiratory: clear to auscultation Cardiovascular: regular rate and rhythm Gastrointestinal: soft, nl liver, spleen Musculoskeletal: muscle weakness (generalized) Extremities: edema (trace/B) Neurological: lethargic Medications Medications Current Medications Metoprolol Tartrate (Lopressor) 5 mg Q4H PRN IV HR>110 Hold SBP<100 Last administered on 10/28/18at 05:38; Admin Dose 5 MG; Start 10/27/18 at 13:30 Acetaminophen (Tylenol Supp) 650 mg Q6H PRN [place] FEVER GREATER THAN 100.6 Last administered on 10/28/18at 03:07; Admin Dose 650 MG; Start 10/28/18 at 02:30 Hydralazine HCl (Apresoline) 10 mg Q4H PRN IV SBP>170; Start 10/28/18 at 11:00 Mupirocin (Bactroban) 1 applic BID TOP Last administered on 11/12/18 09:35; Admin Dose 1 APPLIC; Start 10/28/18 at 21:00 Levalbuterol (Xopenex Neb) 1.25 mg Q6H RESP THERAPY HHN Last administered on 11/12/18 08:39; Admin Dose 1.25 MG; Start 10/29/18 at 08:00 Budesonide (Pulmicort (Neb)) 0.5 mg BID RESP THERAPY HHN Last administered on 11/12/18 08:39; Admin Dose 0.5 MG; Start 10/29/18 at 09:00 Ipratropium [place] (Atrovent 0.02% (Neb)) 0.5 mg Q6H RESP THERAPY HHN Last administered on 11/12/18 08:39; Admin Dose 0.5 MG; Start 10/29/18 at 08:00 Lansoprazole (Prevacid) 30 mg DAILY@06 GTB Last administered on 11/12/18 05:27; Admin Dose 30 MG; Start 10/31/18 at 06:00 Metoprolol Tartrate (Lopressor) 25 mg BID PO Last administered on 11/12/18 09:34; Admin Dose 25 MG; Start 10/31/18 at 12:00 Sodium Phosphate (Neutra-Phos) 250 mg BID PO Last administered on 11/12/18 09:33; Admin Dose 250 MG; Start 11/01/18 at 09:00 Apixaban (Eliquis) 2.5 mg BID PO Last administered on 11/12/18 09:33; Admin Dose 2.5 MG; Start 11/02/18 at 09:00 Morphine Sulfate (morphine) 15 mg Q4H PRN PO SEVERE PAIN LEVEL 7-10; Start 11/04/18 at 14:30 Lorazepam (Ativan) 1 mg Q6H PRN IV SEIZURES; Start 11/04/18 at 15:00 Lorazepam (Ativan) 1 mg Q6H PRN PO ANXIETY; Start 11/04/18 at 15:00 Docusate Sodium (Colace Liquid Cup) 100 mg BID NGT Last administered on 11/12/18 09:33; Admin Dose 100 MG; Start 11/04/18 at 21:00 Bisacodyl (Dulcolax Supp) 10 mg DAILY PRN [place] CONSTIPATION Last administered on 11/05/18 12:21; Admin Dose 10 MG; Start 11/05/18 at 11:30 IV Flush (NS 10 ml) 10 ml PRN PRN IV IV PROTOCOL; Start 11/07/18 at 15:00 Levetiracetam (Keppra Liquid) 500 mg BID GTB Last administered on 11/12/18 09:33; Admin Dose 500 MG; Start 11/08/18 at 21:00 LUIS FERGUSON Nov 12, 2018 13:18
--- NOTE | 2018-11-12 17:48 | CONS ---
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 MULTI DRUG RESISTANT ORGANISM * 10/28/18 BCX (-) * 10/29/18 TRACH RESPIRATORY CULTURE Final Organism 1 PSEUDOMONAS AERUGINOSA QUANTITY 1+ Organism 2 PROVIDENCIA STUARTII QUANTITY 1+ Organism 3 STENOTROPHOMONAS MALTOPHILIA QUANTITY 1+ PHYSICAL EXAMINATION: GENERAL: Afebrile, VSS, A/A/responsive, chronically ill-appearing HEENT: AT, NC, anicteric NECK: Supple,(+)TRACH secure CHEST: Equal chest rise bilaterally, without dyspnea on observation HEART: Pulse RRR ABDOMEN: Soft EXTREMITIES: Warm, dry, Bilateral lower extremities edema and erythema. SKIN: FUNGAL MOISTURE DERMATITIS UNDER BREASTS MASH BRAD-ANAL no diaphoresis ID ASSESSMENT 73 yo MORBID OBESE F admit with 1. s/p SIRS w/ low grade temps, leukocytosis on 10/31/18 = due to GNR UTI= RESOLVED * 10/28/18 Urine Cx (+) URINE CULTURE Final Organism 1 K PNEUMO ESBL COLONY COUNT >100,000 CFU/ml . MULTI DRUG RESISTANT ORGANISM 2. Status post bacteremia, consistent with contaminant = RESOLVED 3. Acute encephalopathy secondary to CVA 4. Seizure disorder/status epilepticus 5. Status post healthcare associated pneumonia 6. (+) Tracheobronchitis == Polymicrobial GNR = SUSPECT TRACH COLONIZATION * 10/29/18 TRACH RESPIRATORY CULTURE Final Organism 1 PSEUDOMONAS AERUGINOSA Organism 2 PROVIDENCIA STUARTII Organism 3 STENOTROPHOMONAS MALTOPHILIA 7. Chronic respiratory failure=> (+)Trach * COPD Emphysema * Interstitial Lung Disease * (+)PHTN 8. Bilateral superficial venous thrombus within the cephalic veins. 9. Bilateral lower extremity cellulitis, likely acute on chronic = RESOLVED 10. Breast folds = moisture yeast dermatitis 11. Atrial fibrillation. 12. Hx of CHF w/pulmonary edema 13. Anemia. 14. Dysphagia (-)MRSA NARES w/hx of prior (+)MRSA (+)VRE stool colonization ABX ALLERGIES: KNDA CURRENT ABX: DAY #OFF ABX s/p Vanco IV, Bactrim, Cefepime ID RECOMMENDATIONS Continue to monitor OFF ABX For TEMP > 101.5 repeat BCX, Urine . Result Diagram: 11/12/18 0701 11/12/18 07 Results 24hrs Laboratory Tests Test 11/12/18 07:01 White Blood Count 3.6 L Red Blood Count 2.66 L Hemoglobin 8.2 L Hematocrit 27.6 L Mean Corpuscular Volume 103.8 H Mean Corpuscular Hemoglobin 30.8 Mean Corpuscular Hemoglobin Concent 29.7 L Red Cell Distribution Width 15.8 H Platelet Count 188 # Mean Platelet Volume 10.1 Immature Granulocytes % 0.800 H Neutrophils % 72.1 Lymphocytes % 20.9 Monocytes % 3.8 Eosinophils % 1.9 Basophils % 0.5 Nucleated Red Blood Cells % 0.0 Immature Granulocytes # 0.030 Neutrophils # 2.6 Lymphocytes # 0.8 Monocytes # 0.1 L Eosinophils # 0.1 Basophils # 0.0 Nucleated Red Blood Cells # 0.0 Sodium Level 138 Potassium Level 4.3 Chloride Level 102 Carbon Dioxide Level 30 Anion Gap 6 Blood Urea Nitrogen 33 H Creatinine 0.84 Est Glomerular Filtrat Rate mL/min Glucose Level 104 Calcium Level 8.3 L Phosphorus Level 3.9 Magnesium Level 1.7 Consultation Date/Type/Reason Admit Date/Time Oct 27, 2018 at 08:14 Initial Consult Date 10/28/18 Requesting Provider: JAYLEN LUGO MD Exam/Review of Systems Vital Signs Vitals Vital Signs Date Temp Pulse Resp B/P (MAP) Pulse Ox O2 O2 Flow FiO2 Time Delivery Rate 11/12/18 79 19 100 30 17:20 11/12/18 97.8 125/65 Mechanical 16:00 (85) Ventilator Trach Collar Intake and Output 11/11/18 11/11/18 11/12/18 1515:00 23:00 07:00 IntakeIntake Total 1000 ml 1060 ml OutputOutput Total 1850 ml 1000 ml BalanceBalance -850 ml 60 ml Medications Medications Current Medications Metoprolol Tartrate (Lopressor) 5 mg Q4H PRN IV HR>110 Hold SBP<100 Last administered on 10/28/18at 05:38; Admin Dose 5 MG; Start 10/27/18 at 13:30 Acetaminophen (Tylenol Supp) 650 mg Q6H PRN [place] FEVER GREATER THAN 100.6 Last administered on 10/28/18at 03:07; Admin Dose 650 MG; Start 10/28/18 at 02:30 Hydralazine HCl (Apresoline) 10 mg Q4H PRN IV SBP>170; Start 10/28/18 at 11:00 Mupirocin (Bactroban) 1 applic BID TOP Last administered on 11/12/18 09:35; Admin Dose 1 APPLIC; Start 10/28/18 at 21:00 Levalbuterol (Xopenex Neb) 1.25 mg Q6H RESP THERAPY HHN Last administered on 11/12/18 13:42; Admin Dose 1.25 MG; Start 10/29/18 at 08:00 Budesonide (Pulmicort (Neb)) 0.5 mg BID RESP THERAPY HHN Last administered on 11/12/18 08:39; Admin Dose 0.5 MG; Start 10/29/18 at 09:00 Ipratropium [place] (Atrovent 0.02% (Neb)) 0.5 mg Q6H RESP THERAPY HHN Last administered on 11/12/18 13:42; Admin Dose 0.5 MG; Start 10/29/18 at 08:00 Lansoprazole (Prevacid) 30 mg DAILY@06 GTB Last administered on 11/12/18 05:27; Admin Dose 30 MG; Start 10/31/18 at 06:00 Metoprolol Tartrate (Lopressor) 25 mg BID PO Last administered on 11/12/18 09:34; Admin Dose 25 MG; Start 10/31/18 at 12:00 Sodium Phosphate (Neutra-Phos) 250 mg BID PO Last administered on 11/12/18 09:33; Admin Dose 250 MG; Start 11/01/18 at 09:00 Apixaban (Eliquis) 2.5 mg BID PO Last administered on 11/12/18 09:33; Admin Dose 2.5 MG; Start 11/02/18 at 09:00 Morphine Sulfate (morphine) 15 mg Q4H PRN PO SEVERE PAIN LEVEL 7-10; Start 11/04/18 at 14:30 Lorazepam (Ativan) 1 mg Q6H PRN IV SEIZURES; Start 11/04/18 at 15:00 Lorazepam (Ativan) 1 mg Q6H PRN PO ANXIETY; Start 11/04/18 at 15:00 Docusate Sodium (Colace Liquid Cup) 100 mg BID NGT Last administered on 11/12/18 09:33; Admin Dose 100 MG; Start 11/04/18 at 21:00 Bisacodyl (Dulcolax Supp) 10 mg DAILY PRN [place] CONSTIPATION Last administered on 11/05/18at 12:21; Admin Dose 10 MG; Start 11/05/18 at 11:30 IV Flush (NS 10 ml) 10 ml PRN PRN IV IV PROTOCOL; Start 11/07/18 at 15:00 Levetiracetam (Keppra Liquid) 500 mg BID GTB Last administered on 11/12/18 09:33; Admin Dose 500 MG; Start 11/08/18 at 21:00 ELIAS CORONEL NP Nov 12, 2018 17:48
[2018-11-13] VITALS (26 sets, daily range): BP systolic 109–142; BP diastolic 52–71; PULSE 66–89; RESP 16–24
[2018-11-13] MEDS: LEVALBUTEROL (NEB) 1.25 MG/0.5 ML AMP HHN SCH ×4 (02:10→19:25)
[2018-11-13] MEDS: IPRATROPIUM (NEB) 0.5 MG/2.5 ML AMP HHN SCH ×4 (02:10→19:25)
[2018-11-13] MEDS: LANSOPRAZOLE 30 MG CAP GTB SCH (06:23)
[2018-11-13] MEDS: BUDESONIDE (NEB) 0.5MG/2ML AMP HHN SCH ×2 (07:57→19:25)
--- NOTE | 2018-11-13 08:28 | PN ---
DATE: 11/13/2018 SUBJECTIVE: The patient is stable, no events overnight. No fevers, chills, nausea, or vomiting. OBJECTIVE: VITAL SIGNS: Blood pressure is 137/58, respirations 18, pulse 77, temperature 98.7. HEENT: Head is normocephalic. NECK: Supple. HEART: Regular rate. LUNGS: Show diminished breath sounds at the base. ABDOMEN: Soft, nontender to palpation without rebound or guarding. EXTREMITIES: Negative for clubbing, cyanosis, no edema. DERMATOLOGIC: No rashes. MUSCULOSKELETAL: No joint effusion. NEUROLOGIC: No change in exam. MEDICATIONS: Reviewed. LABORATORY DATA: From 11/13/2018 was reviewed. The patient's BUN 31, creatinine 0.83. ASSESSMENT AND PLAN: 1. Nonoliguric acute kidney injury on top of chronic kidney disease with previous baseline creatinin e of 1.5 mg/dL. The patient's renal function has improved, currently creatinine is below previous ba seline. Etiology is likely due to hemodynamics and diuretics. At this point, continue current treat ment plan, supportive care, renally dose all medicines. 2. Hypernatremia, improved. Continue free water flushes. 3. Acute diastolic heart failure. The patient appears near euvolemic status. Continue to monitor, give intermittent diuretic therapy as needed. 4. Anemia. Monitor hemoglobin and hematocrit levels. 5. Mineral bone disorder, monitor calcium and phosphorus levels. 6. Atrial fibrillation. Continue medical management. 7. Ventilator-dependent respiratory failure. Vent settings and ABG was reviewed. Continue to monit or. 8. Dysphagia. Continue tube feeding. 9. Seizure disorder. Continue current treatment plan. 10. Sepsis. The patient has completed antibiotic course. 11. Encephalitis, acute encephalopathy. Continue current medical management. 12. Cerebrovascular accident. Continue current treatment plan. Dictated By: RAJINDER ATWOOD DO NR/NTS Conf#: [id number] DID#: [id number] CC: ROSALVA SANCHES MD; MENDEL FIELDS MD;*End*
[2018-11-13] MEDS: NEUTRA-PHOS 250 MG PACKET PO SCH ×2 (10:25→21:56)
[2018-11-13] MEDS: APIXABAN 5 MG TABLET PO SCH ×2 (10:25→21:57)
[2018-11-13] MEDS: LEVETIRACETAM (100 MG/ML) 5ML CUP GTB SCH ×2 (10:25→21:56)
[2018-11-13] MEDS: METOPROLOL 25 MG TAB PO SCH ×2 (10:26→21:57)
[2018-11-13] MEDS: DOCUSATE SODIUM 10 MG/ML (10ML CUP) NGT SCH ×2 (10:26→21:56)
[2018-11-13] MEDS: MUPIROCIN 2% 22 GM OINT TOP SCH ×2 (10:28→21:58)
[2018-11-13] MEDS: BALSAM PERU/CASTOR OIL 60 GM TUBE TOP SCH (10:28)
--- NOTE | 2018-11-13 11:01 | CONS ---
Date/Time of Note Date/Time of Note DATE: 11/13/18 TIME: 11:00 Assessment/Plan Assessment/Plan Hospital Course IMPRESSION: 1. Atrial fibrillation with a rapid ventricular response.-now in SR and remains 2. Abnormal electrocardiogram with ST depressions during atrial fibrillation with rapid ventricular response. 3. Altered mental state/encephalopathy. 4. Possible seizure-like activity. 5. Congestive heart failure, diastolic, chronic. 6. Hypertension. 7. Urinary tract infection. 8. Renal failure. 9. Leukocytosis. 10. bacteremia 11.fevers Recc: -Tele -Continue IVP BB PRN -continue PO BB -Continue eliquis -Continue abx's and f/u cx data -IVP PRN hydralazine -Continue bronchodilators -follow MS closely -Follow volume status closely Result Diagram: 11/13/187 11/13/187 Results 24hrs Laboratory Tests Test 11/13/18 04:37 White Blood Count 3.7 L Red Blood Count 2.71 L Hemoglobin 8.3 L Hematocrit 27.7 L Mean Corpuscular Volume 102.2 H Mean Corpuscular Hemoglobin 30.6 Mean Corpuscular Hemoglobin Concent 30.0 L Red Cell Distribution Width 15.9 H Platelet Count 207 Mean Platelet Volume 9.8 Immature Granulocytes % 0.800 H Neutrophils % 69.6 Lymphocytes % 22.6 Monocytes % 4.0 Eosinophils % 2.7 Basophils % 0.3 Nucleated Red Blood Cells % 0.0 Immature Granulocytes # 0.030 Neutrophils # 2.6 Lymphocytes # 0.8 Monocytes # 0.2 L Eosinophils # 0.1 Basophils # 0.0 Nucleated Red Blood Cells # 0.0 Sodium Level 141 Potassium Level 4.6 Chloride Level 103 Carbon Dioxide Level 31 Anion Gap 7 Blood Urea Nitrogen 31 H Creatinine 0.83 Est Glomerular Filtrat Rate mL/min Glucose Level 105 Calcium Level 8.4 Phosphorus Level 3.6 Magnesium Level 1.7 Consultation Date/Type/Reason Admit Date/Time Oct 27, 2018 at 08:14 Initial Consult Date 10/27/18 Type of Consult cardiology Reason for Consultation AF Requesting Provider: JAYLEN LUGO MD Exam/Review of Systems Vital Signs Vitals Vital Signs Date Temp Pulse Resp B/P (MAP) Pulse Ox O2 O2 Flow FiO2 Time Delivery Rate 11/13/18 89 18 100 30 09:13 11/13/18 98.8 123/59 Mechanical 08:20 (80) Ventilator Intake and Output 11/12/18 11/12/18 11/13/18 1515:00 23:00 07:00 IntakeIntake Total 1000 ml 1600 ml OutputOutput Total 1700 ml 1300 ml BalanceBalance -700 ml 300 ml Exam Review of Systems: CONSTITUTIONAL: No fevers, chills. PULMONARY: No sob CARDIOVASCULAR: No chest pain/palpitations GASTROINTESTINAL: No nausea/vomiting. GENITOURINARY: No hematuria/dysuria. MUSCULOSKELETAL: No myagias/arthalgias. PSYCHIATRIC: The patient denies depression. NEUROLOGIC: No weakness Constitutional: alert Psych: no complaints Head: normocephalic ENMT: mucosa pink and moist Neck: supple, jvd (9 cm water), other (trached) Respiratory: diminished breath sounds (at bases/B) Cardiovascular: regular rate and rhythm Gastrointestinal: soft, non-tender Musculoskeletal: muscle tone (normal) Extremities: edema (none) Neurological: other (No focal defiicts) Medications Medications Current Medications Metoprolol Tartrate (Lopressor) 5 mg Q4H PRN IV HR>110 Hold SBP<100 Last administered on 10/28/18at 05:38; Admin Dose 5 MG; Start 10/27/18 at 13:30 Acetaminophen (Tylenol Supp) 650 mg Q6H PRN [place] FEVER GREATER THAN 100.6 Last administered on 10/28/18at 03:07; Admin Dose 650 MG; Start 10/28/18 at 02:30 Hydralazine HCl (Apresoline) 10 mg Q4H PRN IV SBP>170; Start 10/28/18 at 11:00 Mupirocin (Bactroban) 1 applic BID TOP Last administered on 11/13/18 10:28; Admin Dose 1 APPLIC; Start 10/28/18 at 21:00 Levalbuterol (Xopenex Neb) 1.25 mg Q6H RESP THERAPY HHN Last administered on 11/13/18 07:57; Admin Dose 1.25 MG; Start 10/29/18 at 08:00 Budesonide (Pulmicort (Neb)) 0.5 mg BID RESP THERAPY HHN Last administered on 11/13/18 07:57; Admin Dose 0.5 MG; Start 10/29/18 at 09:00 Ipratropium [place] (Atrovent 0.02% (Neb)) 0.5 mg Q6H RESP THERAPY HHN Last administered on 11/13/18 07:57; Admin Dose 0.5 MG; Start 10/29/18 at 08:00 Lansoprazole (Prevacid) 30 mg DAILY@06 GTB Last administered on 11/13/18 06:23; Admin Dose 30 MG; Start 10/31/18 at 06:00 Metoprolol Tartrate (Lopressor) 25 mg BID PO Last administered on 11/13/18 10:26; Admin Dose 25 MG; Start 10/31/18 at 12:00 Sodium Phosphate (Neutra-Phos) 250 mg BID PO Last administered on 11/13/18 10:25; Admin Dose 250 MG; Start 11/01/18 at 09:00 Apixaban (Eliquis) 2.5 mg BID PO Last administered on 11/13/18 10:25; Admin Dose 2.5 MG; Start 11/02/18 at 09:00 Morphine Sulfate (morphine) 15 mg Q4H PRN PO SEVERE PAIN LEVEL 7-10; Start 11/04/18 at 14:30 Lorazepam (Ativan) 1 mg Q6H PRN IV SEIZURES; Start 11/04/18 at 15:00 Lorazepam (Ativan) 1 mg Q6H PRN PO ANXIETY; Start 11/04/18 at 15:00 Docusate Sodium (Colace Liquid Cup) 100 mg BID NGT Last administered on 11/13/18 10:26; Admin Dose 100 MG; Start 11/04/18 at 21:00 Bisacodyl (Dulcolax Supp) 10 mg DAILY PRN [place] CONSTIPATION Last administered on 11/05/18 12:21; Admin Dose 10 MG; Start 11/05/18 at 11:30 IV Flush (NS 10 ml) 10 ml PRN PRN IV IV PROTOCOL; Start 11/07/18 at 15:00 Levetiracetam (Keppra Liquid) 500 mg BID GTB Last administered on 11/13/18 10:25; Admin Dose 500 MG; Start 11/08/18 at 21:00 LUIS FERGUSON Nov 13, 2018 11:01
--- NOTE | 2018-11-13 12:55 | CONS ---
Assessment/Plan Assessment/Plan Hospital Course A: 73 yo F with reported Hx of afib, HTN, and other comorbidities...who presents with ams, tachyarrhythmia, and involuntary muscle jerking...for which neurology is consulted. The clinical picture is consistent w/ status epilepticus. The pt was noted to be in afib with RVR on readmission, which raises concern for superimposed acute stroke. Encephalitis is unlikely.. MRI brain is notable for multiple multilobar infarcts. EEG is notable for frequent right hemispheric epileptiform discharges, which is clinically consistent with status epilepticus. Echo is unrevealing. Repeat CTH is unrevealing. P: Cont maintenance Keppra 500 BID for now Ativan iv for prolonged seizure > 5min or for cluster Continue Lipitor for secondary stroke prevention Eliquis OK for the same Other medical management and supportive care per primary Will follow clinically Result Diagram: 11/13/187 11/13/187 Results 24hrs Laboratory Tests Test 11/13/18 04:37 White Blood Count 3.7 L Red Blood Count 2.71 L Hemoglobin 8.3 L Hematocrit 27.7 L Mean Corpuscular Volume 102.2 H Mean Corpuscular Hemoglobin 30.6 Mean Corpuscular Hemoglobin Concent 30.0 L Red Cell Distribution Width 15.9 H Platelet Count 207 Mean Platelet Volume 9.8 Immature Granulocytes % 0.800 H Neutrophils % 69.6 Lymphocytes % 22.6 Monocytes % 4.0 Eosinophils % 2.7 Basophils % 0.3 Nucleated Red Blood Cells % 0.0 Immature Granulocytes # 0.030 Neutrophils # 2.6 Lymphocytes # 0.8 Monocytes # 0.2 L Eosinophils # 0.1 Basophils # 0.0 Nucleated Red Blood Cells # 0.0 Sodium Level 141 Potassium Level 4.6 Chloride Level 103 Carbon Dioxide Level 31 Anion Gap 7 Blood Urea Nitrogen 31 H Creatinine 0.83 Est Glomerular Filtrat Rate mL/min Glucose Level 105 Calcium Level 8.4 Phosphorus Level 3.6 Magnesium Level 1.7 Consultation Date/Type/Reason Admit Date/Time Oct 27, 2018 at 08:14 Type of Consult Neurology Requesting Provider: JAYLEN LUGO MD Date/Time of Note DATE: 11/13/18 TIME: 12:53 24 HR Interval Summary Free Text/Dictation Continues telemetry monitoring. No acute events or changes in pt condition reported. Subjective hx not possible: pt non-verbal Exam Vital Signs Vitals Vital Signs Date Temp Pulse Resp B/P (MAP) Pulse Ox O2 O2 Flow FiO2 Time Delivery Rate 11/13/18 86 19 100 30 11:09 11/13/18 98.8 123/59 Mechanical 08:20 (80) Ventilator Intake and Output 11/12/18 11/12/18 11/13/18 1515:00 23:00 07:00 IntakeIntake Total 1000 ml 1600 ml OutputOutput Total 1700 ml 1300 ml BalanceBalance -700 ml 300 ml Exam PE: Gen Appearance: No Apparent Distress HEENT: Has trach Cardiovascular: SR on telemetry Abdomen: Soft Extremities: Dry NE: The patient was awake and alert though nonverbal, d/t trach. Jaw tremors were noted, however pt was able to mouth words. Was blinking spontaneously. The pt was not following commands today. Cranial nerve examination was limited by mental status. Pupils were equal, round and briskly reactive to light. There was no afferent pupillary defect. Funduscopic examination was limited. Face was grossly symmetric, w/ a present cough/gag reflex. Tone was increased in her upper extremities . Muscle bulk was slightly diminished. I did not see fasciculations. The patient moved her upper extremities spontaneously and withdrew her lowers extremities to noxious stimuli. Coordination and gait testing was limited by mental status. Arm and leg reflexes were symmetric. Doshi's sign was absent. Plantar responses were flexor. JOE WYATT NP Nov 13, 2018 12:55 CHRISTIANA LARSON Nov 13, 2018 13:28
--- NOTE | 2018-11-13 14:46 | CONS ---
Date/Time of Note Date/Time of Note DATE: 11/13/18 TIME: 14:46 Assessment/Plan Assessment/Plan Hospital Course Subjective: No acute events overnight patient looks comfortable no fevers Indwelling: Tracheostomy, NG tube, Damon catheter, peripheral IV Physical examination: Chronically ill-appearing elderly woman who is awake nonverbal noncommunicative and in no distress. Head atraumatic normocephalic sclera nonicteric. Neck is supple, tracheostomy present. Chest rise symmetrical, breath sounds diminished bases. Heart: S1-S2. Abdomen soft bowel sounds present. Extremities with trace edema. Assessment: 1. Acute encephalopathy secondary to CVA 2. Status post urinary tract infection 3. Seizure disorder/status epilepticus 4. Status post bacteremia, consistent with contaminant 5. MRSA nares colonization 6. Atrial fibrillation 7. Status post healthcare associated pneumonia 8. Bilateral superficial venous thrombus within the cephalic veins. Plan: Remains stable, off antibiotics, continue present care, follow neurology and pulmonary recommendations, repeat cultures prn ?PEG Result Diagram: 11/13/18 0437 11/13/18 0437 Results 24hrs Laboratory Tests Test 11/13/18 04:37 White Blood Count 3.7 L Red Blood Count 2.71 L Hemoglobin 8.3 L Hematocrit 27.7 L Mean Corpuscular Volume 102.2 H Mean Corpuscular Hemoglobin 30.6 Mean Corpuscular Hemoglobin Concent 30.0 L Red Cell Distribution Width 15.9 H Platelet Count 207 Mean Platelet Volume 9.8 Immature Granulocytes % 0.800 H Neutrophils % 69.6 Lymphocytes % 22.6 Monocytes % 4.0 Eosinophils % 2.7 Basophils % 0.3 Nucleated Red Blood Cells % 0.0 Immature Granulocytes # 0.030 Neutrophils # 2.6 Lymphocytes # 0.8 Monocytes # 0.2 L Eosinophils # 0.1 Basophils # 0.0 Nucleated Red Blood Cells # 0.0 Sodium Level 141 Potassium Level 4.6 Chloride Level 103 Carbon Dioxide Level 31 Anion Gap 7 Blood Urea Nitrogen 31 H Creatinine 0.83 Est Glomerular Filtrat Rate mL/min Glucose Level 105 Calcium Level 8.4 Phosphorus Level 3.6 Magnesium Level 1.7 Consultation Date/Type/Reason Admit Date/Time Oct 27, 2018 at 08:14 Initial Consult Date 10/28/18 Type of Consult ID Requesting Provider: JAYLEN LUGO MD Exam/Review of Systems Vital Signs Vitals Vital Signs Date Temp Pulse Resp B/P (MAP) Pulse Ox O2 O2 Flow FiO2 Time Delivery Rate 11/13/18 91 17 100 13:23 11/13/18 98.8 142/66 Mechanical 12:00 (91) Ventilator 11/13/18 30 11:09 Intake and Output 11/12/18 11/12/18 11/13/18 1515:00 23:00 07:00 IntakeIntake Total 1000 ml 1600 ml OutputOutput Total 1700 ml 1300 ml BalanceBalance -700 ml 300 ml Medications Medications Current Medications Metoprolol Tartrate (Lopressor) 5 mg Q4H PRN IV HR>110 Hold SBP<100 Last administered on 10/28/18 05:38; Admin Dose 5 MG; Start 10/27/18 at 13:30 Acetaminophen (Tylenol Supp) 650 mg Q6H PRN [place] FEVER GREATER THAN 100.6 Last administered on 10/28/18 03:07; Admin Dose 650 MG; Start 10/28/18 at 02:30 Hydralazine HCl (Apresoline) 10 mg Q4H PRN IV SBP>170; Start 10/28/18 at 11:00 Mupirocin (Bactroban) 1 applic BID TOP Last administered on 11/13/18 10:28; Admin Dose 1 APPLIC; Start 10/28/18 at 21:00 Levalbuterol (Xopenex Neb) 1.25 mg Q6H RESP THERAPY HHN Last administered on 11/13/18 13:22; Admin Dose 1.25 MG; Start 10/29/18 at 08:00 Budesonide (Pulmicort (Neb)) 0.5 mg BID RESP THERAPY HHN Last administered on 11/13/18 07:57; Admin Dose 0.5 MG; Start 10/29/18 at 09:00 Ipratropium [place] (Atrovent 0.02% (Neb)) 0.5 mg Q6H RESP THERAPY HHN Last administered on 11/13/18 13:22; Admin Dose 0.5 MG; Start 10/29/18 at 08:00 Lansoprazole (Prevacid) 30 mg DAILY@06 GTB Last administered on 11/13/18 06:23; Admin Dose 30 MG; Start 10/31/18 at 06:00 Metoprolol Tartrate (Lopressor) 25 mg BID PO Last administered on 11/13/18 10:26; Admin Dose 25 MG; Start 10/31/18 at 12:00 Sodium Phosphate (Neutra-Phos) 250 mg BID PO Last administered on 11/13/18 10:25; Admin Dose 250 MG; Start 11/01/18 at 09:00 Apixaban (Eliquis) 2.5 mg BID PO Last administered on 11/13/18 10:25; Admin Dose 2.5 MG; Start 11/02/18 at 09:00 Morphine Sulfate (morphine) 15 mg Q4H PRN PO SEVERE PAIN LEVEL 7-10; Start 11/04/18 at 14:30 Lorazepam (Ativan) 1 mg Q6H PRN IV SEIZURES; Start 11/04/18 at 15:00 Lorazepam (Ativan) 1 mg Q6H PRN PO ANXIETY; Start 11/04/18 at 15:00 Docusate Sodium (Colace Liquid Cup) 100 mg BID NGT Last administered on 11/13/18 10:26; Admin Dose 100 MG; Start 11/04/18 at 21:00 Bisacodyl (Dulcolax Supp) 10 mg DAILY PRN [place] CONSTIPATION Last administered on 11/05/18at 12:21; Admin Dose 10 MG; Start 11/05/18 at 11:30 IV Flush (NS 10 ml) 10 ml PRN PRN IV IV PROTOCOL; Start 11/07/18 at 15:00 Levetiracetam (Keppra Liquid) 500 mg BID GTB Last administered on 11/13/18 10:25; Admin Dose 500 MG; Start 11/08/18 at 21:00 DEBO UMANA NP Nov 13, 2018 14:46
--- NOTE | 2018-11-13 15:53 | PN ---
Date/Time of Note Date/Time of Note DATE: 11/13/18 TIME: 15:36 Assessment/Plan VTE Prophylaxis Risk score (from Ns)>0 risk: 9 SCD applied (from Ns): Yes Pharmacological prophylaxis: apixaban Lines/Catheters IV Catheter Type (from Nrsg): PICC Line Central line still needed: Yes Urinary Cath still in place: Yes Reason Cath still needed: urinary retention Assessment/Plan Hospital Course Patient with improvement in neuro status, tolerates NG tube feeding, comfortable on ventilatory support. Patient's condition and plan of care discussed with PRABHU Gudino, will obtain swallow evaluation Assessment/Plan -Acute encephalopathy secondary to CVA. Dr. Meng is following in neurology consultation. -Seizure disorder/status epilepticus. Continue Keppra and Ativan as needed. -Status post healthcare associated pneumonia and urinary tract infection. -MRSA nares colonization -Atrial fibrillation, continue Eliquis -Diastolic congestive heart failure. Dr. Hernandez is following in cardiology consultation. -Bilateral superficial venous thrombus within the cephalic veins. -Pulmonary fibrosis, continue Pulmicort. Dr. Davenport is following in pulmonology consultation. -Chronic tracheostomy -COPD Further recommendations based on clinical course. Plan of care discussed with Dr. Phillips. Result Diagram: 11/13/18 0437 11/13/18 0437 Results 24hrs Laboratory Tests Test 11/13/18 04:37 White Blood Count 3.7 L Red Blood Count 2.71 L Hemoglobin 8.3 L Hematocrit 27.7 L Mean Corpuscular Volume 102.2 H Mean Corpuscular Hemoglobin 30.6 Mean Corpuscular Hemoglobin Concent 30.0 L Red Cell Distribution Width 15.9 H Platelet Count 207 Mean Platelet Volume 9.8 Immature Granulocytes % 0.800 H Neutrophils % 69.6 Lymphocytes % 22.6 Monocytes % 4.0 Eosinophils % 2.7 Basophils % 0.3 Nucleated Red Blood Cells % 0.0 Immature Granulocytes # 0.030 Neutrophils # 2.6 Lymphocytes # 0.8 Monocytes # 0.2 L Eosinophils # 0.1 Basophils # 0.0 Nucleated Red Blood Cells # 0.0 Sodium Level 141 Potassium Level 4.6 Chloride Level 103 Carbon Dioxide Level 31 Anion Gap 7 Blood Urea Nitrogen 31 H Creatinine 0.83 Est Glomerular Filtrat Rate mL/min Glucose Level 105 Calcium Level 8.4 Phosphorus Level 3.6 Magnesium Level 1.7 Exam/Review of Systems Vital Signs Vitals Vital Signs Date Temp Pulse Resp B/P (MAP) Pulse Ox O2 O2 Flow FiO2 Time Delivery Rate 11/13/18 98.3 79 24 110/65 97 Mechanical 15:23 (80) Ventilator 11/13/18 30 11:09 Intake and Output 11/12/18 11/12/18 11/13/18 1414:59 22:59 06:59 IntakeIntake Total 1000 ml 1600 ml OutputOutput Total 1700 ml 1300 ml BalanceBalance -700 ml 300 ml Exam Constitutional: alert, non-verbal Neck: supple, other (trach) Respiratory: diminished breath sounds Cardiovascular: irregular rhythm Gastrointestinal: soft, non-tender Musculoskeletal: nl extremities to inspection Extremities: normal pulses Skin: nl turgor Medications Medications Current Medications Metoprolol Tartrate (Lopressor) 5 mg Q4H PRN IV HR>110 Hold SBP<100 Last administered on 10/28/18 05:38; Admin Dose 5 MG; Start 10/27/18 at 13:30 Acetaminophen (Tylenol Supp) 650 mg Q6H PRN [place] FEVER GREATER THAN 100.6 Last administered on 10/28/18 03:07; Admin Dose 650 MG; Start 10/28/18 at 02:30 Hydralazine HCl (Apresoline) 10 mg Q4H PRN IV SBP>170; Start 10/28/18 at 11:00 Mupirocin (Bactroban) 1 applic BID TOP Last administered on 11/13/18 10:28; Admin Dose 1 APPLIC; Start 10/28/18 at 21:00 Levalbuterol (Xopenex Neb) 1.25 mg Q6H RESP THERAPY HHN Last administered on 11/13/18 13:22; Admin Dose 1.25 MG; Start 10/29/18 at 08:00 Budesonide (Pulmicort (Neb)) 0.5 mg BID RESP THERAPY HHN Last administered on 11/13/18 07:57; Admin Dose 0.5 MG; Start 10/29/18 at 09:00 Ipratropium [place] (Atrovent 0.02% (Neb)) 0.5 mg Q6H RESP THERAPY HHN Last administered on 11/13/18 13:22; Admin Dose 0.5 MG; Start 10/29/18 at 08:00 Lansoprazole (Prevacid) 30 mg DAILY@06 GTB Last administered on 11/13/18 06:23; Admin Dose 30 MG; Start 10/31/18 at 06:00 Metoprolol Tartrate (Lopressor) 25 mg BID PO Last administered on 11/13/18 10:26; Admin Dose 25 MG; Start 10/31/18 at 12:00 Sodium Phosphate (Neutra-Phos) 250 mg BID PO Last administered on 11/13/18 10:25; Admin Dose 250 MG; Start 11/01/18 at 09:00 Apixaban (Eliquis) 2.5 mg BID PO Last administered on 11/13/18 10:25; Admin Dose 2.5 MG; Start 11/02/18 at 09:00 Morphine Sulfate (morphine) 15 mg Q4H PRN PO SEVERE PAIN LEVEL 7-10; Start 11/04/18 at 14:30 Lorazepam (Ativan) 1 mg Q6H PRN IV SEIZURES; Start 11/04/18 at 15:00 Lorazepam (Ativan) 1 mg Q6H PRN PO ANXIETY; Start 11/04/18 at 15:00 Docusate Sodium (Colace Liquid Cup) 100 mg BID NGT Last administered on 11/13/18 10:26; Admin Dose 100 MG; Start 11/04/18 at 21:00 Bisacodyl (Dulcolax Supp) 10 mg DAILY PRN [place] CONSTIPATION Last administered on 11/05/18at 12:21; Admin Dose 10 MG; Start 11/05/18 at 11:30 IV Flush (NS 10 ml) 10 ml PRN PRN IV IV PROTOCOL; Start 11/07/18 at 15:00 Levetiracetam (Keppra Liquid) 500 mg BID GTB Last administered on 11/13/18 10:25; Admin Dose 500 MG; Start 11/08/18 at 21:00 IMER VARGAS Nov 13, 2018 15:46
[2018-11-14] VITALS (30 sets, daily range): BP systolic 113–151; BP diastolic 53–72; PULSE 66–98; RESP 16–22
[2018-11-14] MEDS: LEVALBUTEROL (NEB) 1.25 MG/0.5 ML AMP HHN SCH ×4 (01:20→20:29)
[2018-11-14] MEDS: IPRATROPIUM (NEB) 0.5 MG/2.5 ML AMP HHN SCH ×4 (01:20→20:29)
[2018-11-14] MEDS: LANSOPRAZOLE 30 MG CAP GTB SCH (06:01)
[2018-11-14] MEDS: LEVETIRACETAM (100 MG/ML) 5ML CUP GTB SCH ×2 (08:50→22:27)
[2018-11-14] MEDS: NEUTRA-PHOS 250 MG PACKET PO SCH ×2 (08:50→22:27)
[2018-11-14] MEDS: DOCUSATE SODIUM 10 MG/ML (10ML CUP) NGT SCH ×2 (08:50→22:28)
[2018-11-14] MEDS: APIXABAN 5 MG TABLET PO SCH ×2 (08:51→22:27)
--- NOTE | 2018-11-14 08:51 | PN ---
DATE: 11/14/2018 SUBJECTIVE: The patient is stable, no events overnight. No fevers, chills, nausea, vomiting. OBJECTIVE: VITAL SIGNS: Blood pressure is 121/60, respirations 22, pulse 87, temperature 98.8. HEENT: Head is normocephalic. NECK: Supple. HEART: Regular rate. LUNGS: Show diminished breath sounds at the base. ABDOMEN: Soft, nontender to palpation without rebound or guarding. EXTREMITIES: Negative for clubbing, cyanosis, no edema. DERMATOLOGIC: No rashes. MUSCULOSKELETAL: No joint effusion. NEUROLOGIC: No change in exam. MEDICATIONS: Reviewed. LABORATORY DATA: Has been reviewed. ASSESSMENT AND PLAN: 1. Nonoliguric acute kidney injury with previous baseline creatinine of 1.5 mg/dL. The patient's re nal function has improved after holding diuretics. At this point, continue current plans, supportive care, renally dose all meds. 2. Hyponatremia, improved. Continue free water flushes. 3. Acute diastolic heart failure. The patient appears near euvolemic status. Continue to monitor, give intermittent diuretic therapy as needed. 4. Anemia. Monitor hemoglobin and hematocrit levels. 5. Mineral bone disorder, monitor calcium and phosphorus levels. 6. Atrial fibrillation. Continue medical management. 7. Ventilatory-dependent respiratory failure. Vent settings and ABG was reviewed. Continue to [facility]. 8. Dysphagia. Continue tube feeding. 9. Seizure disorder. Continue current treatment plan. 10. Sepsis. The patient has completed antibiotic course. 11. Acute encephalopathy. Continue to monitor. 12. History of cerebrovascular accident. Continue current treatment plan. Dictated By: RAJINDER WATTS/MONROE Conf#: [id number] DID#: [id number] CC: MENDEL FIELDS MD; ROSALVA SANCHES MD;*EndCC*
[2018-11-14] MEDS: METOPROLOL 25 MG TAB PO SCH ×2 (08:52→22:28)
[2018-11-14] MEDS: MUPIROCIN 2% 22 GM OINT TOP SCH ×2 (08:56→22:28)
[2018-11-14] MEDS: BALSAM PERU/CASTOR OIL 60 GM TUBE TOP SCH (08:56)
[2018-11-14] MEDS: BUDESONIDE (NEB) 0.5MG/2ML AMP HHN SCH ×2 (09:05→20:29)
--- NOTE | 2018-11-14 12:36 | CONS ---
Date/Time of Note Date/Time of Note DATE: 11/14/18 TIME: 12:34 Assessment/Plan Assessment/Plan Hospital Course IMPRESSION: 1. Atrial fibrillation with a rapid ventricular response.-now in SR and remains 2. Abnormal electrocardiogram with ST depressions during atrial fibrillation with rapid ventricular response. 3. Altered mental state/encephalopathy. 4. Possible seizure-like activity. 5. Congestive heart failure, diastolic, chronic. 6. Hypertension. 7. Urinary tract infection. 8. Renal failure. 9. Leukocytosis. 10. bacteremia 11.fevers Recc: -Tele -Continue IVP BB PRN -continue PO BB -Continue eliquis -Continue abx's and f/u cx data -IVP PRN hydralazine -Continue bronchodilators -follow MS closely -Follow volume status closely Result Diagram: 11/14/18 0455 11/14/18 0455 Results 24hrs Laboratory Tests Test 11/14/18 04:55 White Blood Count 4.0 L Red Blood Count 2.71 L Hemoglobin 8.3 L Hematocrit 27.8 L Mean Corpuscular Volume 102.6 H Mean Corpuscular Hemoglobin 30.6 Mean Corpuscular Hemoglobin Concent 29.9 L Red Cell Distribution Width 15.9 H Platelet Count 228 Mean Platelet Volume 9.8 Immature Granulocytes % 0.700 H Neutrophils % 67.7 Lymphocytes % 24.7 Monocytes % 4.2 Eosinophils % 2.2 Basophils % 0.5 Nucleated Red Blood Cells % 0.0 Immature Granulocytes # 0.030 Neutrophils # 2.7 Lymphocytes # 1.0 Monocytes # 0.2 L Eosinophils # 0.1 Basophils # 0.0 Nucleated Red Blood Cells # 0.0 Sodium Level 138 Potassium Level 4.4 Chloride Level 104 Carbon Dioxide Level 30 Anion Gap 4 L Blood Urea Nitrogen 29 H Creatinine 0.80 Est Glomerular Filtrat Rate mL/min Glucose Level 126 Calcium Level 8.5 Consultation Date/Type/Reason Admit Date/Time Oct 27, 2018 at 08:14 Initial Consult Date 10/27/18 Type of Consult cardiology Reason for Consultation AF Requesting Provider: JAYLEN LUGO MD Exam/Review of Systems Vital Signs Vitals Vital Signs Date Temp Pulse Resp B/P (MAP) Pulse Ox O2 O2 Flow FiO2 Time Delivery Rate 11/14/18 98.6 69 16 113/53 98 Mechanical 11:56 (73) Ventilator 11/14/18 30 11:00 Intake and Output 11/13/18 11/13/18 11/14/18 1515:00 23:00 07:00 IntakeIntake Total 1200 ml 600 ml OutputOutput Total 875 ml 950 ml BalanceBalance 325 ml -350 ml Exam Review of Systems: CONSTITUTIONAL: No fevers, chills. PULMONARY: trached CARDIOVASCULAR: No chest pain/palpitations GASTROINTESTINAL: No nausea/vomiting. GENITOURINARY: No hematuria/dysuria. MUSCULOSKELETAL: No myagias/arthalgias. PSYCHIATRIC: The patient denies depression. NEUROLOGIC: No weakness Constitutional: alert Psych: no complaints Head: normocephalic ENMT: mucosa pink and moist Neck: supple, jvd (9 cm water) Respiratory: diminished breath sounds (at bases/B) Cardiovascular: regular rate and rhythm Gastrointestinal: soft, non-tender Musculoskeletal: muscle tone (normal) Extremities: edema (none) Neurological: other (No focal deficits) Medications Medications Current Medications Metoprolol Tartrate (Lopressor) 5 mg Q4H PRN IV HR>110 Hold SBP<100 Last administered on 10/28/18at 05:38; Admin Dose 5 MG; Start 10/27/18 at 13:30 Acetaminophen (Tylenol Supp) 650 mg Q6H PRN [place] FEVER GREATER THAN 100.6 Last administered on 10/28/18at 03:07; Admin Dose 650 MG; Start 10/28/18 at 02:30 Hydralazine HCl (Apresoline) 10 mg Q4H PRN IV SBP>170; Start 10/28/18 at 11:00 Mupirocin (Bactroban) 1 applic BID TOP Last administered on 11/14/18 08:56; Admin Dose 1 APPLIC; Start 10/28/18 at 21:00 Levalbuterol (Xopenex Neb) 1.25 mg Q6H RESP THERAPY HHN Last administered on 11/14/18 08:04; Admin Dose 1.25 MG; Start 10/29/18 at 08:00 Budesonide (Pulmicort (Neb)) 0.5 mg BID RESP THERAPY HHN Last administered on 11/14/18 09:05; Admin Dose 0.5 MG; Start 10/29/18 at 09:00 Ipratropium [place] (Atrovent 0.02% (Neb)) 0.5 mg Q6H RESP THERAPY HHN Last administered on 11/14/18 08:04; Admin Dose 0.5 MG; Start 10/29/18 at 08:00 Lansoprazole (Prevacid) 30 mg DAILY@06 GTB Last administered on 11/14/18 06:01; Admin Dose 30 MG; Start 10/31/18 at 06:00 Metoprolol Tartrate (Lopressor) 25 mg BID PO Last administered on 11/14/18 08:52; Admin Dose 25 MG; Start 10/31/18 at 12:00 Sodium Phosphate (Neutra-Phos) 250 mg BID PO Last administered on 11/14/18 08:50; Admin Dose 250 MG; Start 11/01/18 at 09:00 Apixaban (Eliquis) 2.5 mg BID PO Last administered on 11/14/18 08:51; Admin Dose 2.5 MG; Start 11/02/18 at 09:00 Morphine Sulfate (morphine) 15 mg Q4H PRN PO SEVERE PAIN LEVEL 7-10; Start 11/04/18 at 14:30 Lorazepam (Ativan) 1 mg Q6H PRN IV SEIZURES; Start 11/04/18 at 15:00 Lorazepam (Ativan) 1 mg Q6H PRN PO ANXIETY; Start 11/04/18 at 15:00 Docusate Sodium (Colace Liquid Cup) 100 mg BID NGT Last administered on 11/14/18 08:50; Admin Dose 100 MG; Start 11/04/18 at 21:00 Bisacodyl (Dulcolax Supp) 10 mg DAILY PRN [place] CONSTIPATION Last administered on 11/05/18at 12:21; Admin Dose 10 MG; Start 11/05/18 at 11:30 IV Flush (NS 10 ml) 10 ml PRN PRN IV IV PROTOCOL; Start 11/07/18 at 15:00 Levetiracetam (Keppra Liquid) 500 mg BID GTB Last administered on 11/14/18 08:50; Admin Dose 500 MG; Start 11/08/18 at 21:00 LUIS FERGUSON Nov 14, 2018 12:36
--- NOTE | 2018-11-14 13:52 | CONS ---
Assessment/Plan Assessment/Plan Hospital Course A: 73 yo F with reported Hx of afib, HTN, and other comorbidities...who presents with ams, tachyarrhythmia, and involuntary muscle jerking...for which neurology is consulted. The clinical picture was initially consistent w/ status epilepticus...which has since responded to AED Tx.. The pt was addtionally noted to be in afib with RVR on readmission, which raised concern for superimposed acute stroke. MRI brain confirmed acute multilobar infarcts. EEG was notable for frequent right hemispheric epileptiform discharges, which was clinically consistent with status epilepticus. Echo was unrevealing. Repeat CTH was unrevealing. P: Cont maintenance Keppra 500 BID for now Ativan iv for prolonged seizure > 5min or for cluster Continue Lipitor for secondary stroke prevention Eliquis OK for the same Other medical management and supportive care per primary Will follow clinically Result Diagram: 11/14/18 0455 11/14/18 0455 Results 24hrs Laboratory Tests Test 11/14/18 04:55 White Blood Count 4.0 L Red Blood Count 2.71 L Hemoglobin 8.3 L Hematocrit 27.8 L Mean Corpuscular Volume 102.6 H Mean Corpuscular Hemoglobin 30.6 Mean Corpuscular Hemoglobin Concent 29.9 L Red Cell Distribution Width 15.9 H Platelet Count 228 Mean Platelet Volume 9.8 Immature Granulocytes % 0.700 H Neutrophils % 67.7 Lymphocytes % 24.7 Monocytes % 4.2 Eosinophils % 2.2 Basophils % 0.5 Nucleated Red Blood Cells % 0.0 Immature Granulocytes # 0.030 Neutrophils # 2.7 Lymphocytes # 1.0 Monocytes # 0.2 L Eosinophils # 0.1 Basophils # 0.0 Nucleated Red Blood Cells # 0.0 Sodium Level 138 Potassium Level 4.4 Chloride Level 104 Carbon Dioxide Level 30 Anion Gap 4 L Blood Urea Nitrogen 29 H Creatinine 0.80 Est Glomerular Filtrat Rate mL/min Glucose Level 126 Calcium Level 8.5 Consultation Date/Type/Reason Admit Date/Time Oct 27, 2018 at 08:14 Type of Consult Neurology Requesting Provider: JAYLEN LUGO MD Date/Time of Note DATE: 11/14/18 TIME: 13:52 24 HR Interval Summary Free Text/Dictation Continues telemetry monitoring. No acute events or changes in pt condition reported at this time. Exam Vital Signs Vitals Vital Signs Date Temp Pulse Resp B/P (MAP) Pulse Ox O2 O2 Flow FiO2 Time Delivery Rate 11/14/18 86 21 100 30 13:12 11/14/18 98.6 113/53 Mechanical 11:56 (73) Ventilator Intake and Output 11/13/18 11/13/18 11/14/18 1515:00 23:00 07:00 IntakeIntake Total 1200 ml 600 ml OutputOutput Total 875 ml 950 ml BalanceBalance 325 ml -350 ml Exam PE: Gen Appearance: No Apparent Distress HEENT: Has trach Cardiovascular: SR on telemetry Abdomen: Soft Extremities: Dry NE: The patient was awake and alert though nonverbal, d/t trach. Jaw tremors were noted, however pt was able to mouth words. Was blinking spontaneously. The pt was not following commands today. Cranial nerve examination was limited by mental status. Pupils were equal, round and briskly reactive to light. There was no afferent pupillary defect. Funduscopic examination was limited. Face was grossly symmetric, w/ a present cough/gag reflex. Tone was increased in her upper extremities . Muscle bulk was slightly diminished. I did not see fasciculations. The patient moved her upper extremities spontaneously and withdrew her lowers extremities to noxious stimuli. Coordination and gait testing was limited by mental status. Arm and leg reflexes were symmetric. Doshi's sign was absent. Plantar response s were flexor. JOE WYATT NP Nov 14, 2018 13:52 CHRISTIANA LARSON Nov 14, 2018 19:21
--- NOTE | 2018-11-14 15:01 | PN ---
Date/Time of Note Date/Time of Note DATE: 11/14/18 TIME: 14:57 Assessment/Plan VTE Prophylaxis Risk score (from [facility])>0 risk: 9 SCD applied (from [facility]): Yes Pharmacological prophylaxis: NA/contraindicated Pharm contraindication: other Lines/Catheters IV Catheter Type (from [facility]): PICC Line Central line still needed: Yes Urinary Cath still in place: Yes Reason Cath still needed: urinary retention Assessment/Plan Hospital Course Patient continues on vent without distress, patient failed swallow evaluation, will reassess tomorrow, continue NG tube feeding, strict aspiration precaution. Assessment/Plan -Acute encephalopathy secondary to CVA. Dr. Meng is following in neurology consultation. -Seizure disorder/status epilepticus. Continue Keppra and Ativan as needed. -Status post healthcare associated pneumonia and urinary tract infection. -MRSA nares colonization -Atrial fibrillation, continue Eliquis -Diastolic congestive heart failure. Dr. Hernandez is following in cardiology consultation. -Bilateral superficial venous thrombus within the cephalic veins. -Pulmonary fibrosis, continue Pulmicort. Dr. Davenport is following in pulmonology consultation. -Chronic tracheostomy -COPD Further recommendations based on clinical course. Plan of care discussed with Dr. Phillips. Result Diagram: 11/14/18 0455 11/14/18 0455 Results 24hrs Laboratory Tests Test 11/14/18 04:55 White Blood Count 4.0 L Red Blood Count 2.71 L Hemoglobin 8.3 L Hematocrit 27.8 L Mean Corpuscular Volume 102.6 H Mean Corpuscular Hemoglobin 30.6 Mean Corpuscular Hemoglobin Concent 29.9 L Red Cell Distribution Width 15.9 H Platelet Count 228 Mean Platelet Volume 9.8 Immature Granulocytes % 0.700 H Neutrophils % 67.7 Lymphocytes % 24.7 Monocytes % 4.2 Eosinophils % 2.2 Basophils % 0.5 Nucleated Red Blood Cells % 0.0 Immature Granulocytes # 0.030 Neutrophils # 2.7 Lymphocytes # 1.0 Monocytes # 0.2 L Eosinophils # 0.1 Basophils # 0.0 Nucleated Red Blood Cells # 0.0 Sodium Level 138 Potassium Level 4.4 Chloride Level 104 Carbon Dioxide Level 30 Anion Gap 4 L Blood Urea Nitrogen 29 H Creatinine 0.80 Est Glomerular Filtrat Rate mL/min Glucose Level 126 Calcium Level 8.5 Exam/Review of Systems Vital Signs Vitals Vital Signs Date Temp Pulse Resp B/P (MAP) Pulse Ox O2 O2 Flow FiO2 Time Delivery Rate 11/14/18 98.6 98 22 151/72 98 Mechanical 14:11 (98) Ventilator 11/14/18 30 13:12 Intake and Output 11/13/18 11/13/18 11/14/18 1414:59 22:59 06:59 IntakeIntake Total 1200 ml 600 ml OutputOutput Total 875 ml 950 ml BalanceBalance 325 ml -350 ml Exam Constitutional: alert, non-verbal Neck: supple, other (trach) Respiratory: diminished breath sounds Cardiovascular: irregular rhythm Gastrointestinal: soft, non-tender Musculoskeletal: nl extremities to inspection Extremities: normal pulses Skin: nl turgor Medications Medications Current Medications Metoprolol Tartrate (Lopressor) 5 mg Q4H PRN IV HR>110 Hold SBP<100 Last administered on 10/28/18at 05:38; Admin Dose 5 MG; Start 10/27/18 at 13:30 Acetaminophen (Tylenol Supp) 650 mg Q6H PRN [place] FEVER GREATER THAN 100.6 Last administered on 10/28/18at 03:07; Admin Dose 650 MG; Start 10/28/18 at 02:30 Hydralazine HCl (Apresoline) 10 mg Q4H PRN IV SBP>170; Start 10/28/18 at 11:00 Mupirocin (Bactroban) 1 applic BID TOP Last administered on 11/14/18 08:56; Admin Dose 1 APPLIC; Start 10/28/18 at 21:00 Levalbuterol (Xopenex Neb) 1.25 mg Q6H RESP THERAPY HHN Last administered on 11/14/18 13:09; Admin Dose 1.25 MG; Start 10/29/18 at 08:00 Budesonide (Pulmicort (Neb)) 0.5 mg BID RESP THERAPY HHN Last administered on 11/14/18 09:05; Admin Dose 0.5 MG; Start 10/29/18 at 09:00 Ipratropium [place] (Atrovent 0.02% (Neb)) 0.5 mg Q6H RESP THERAPY HHN Last administered on 11/14/18 13:09; Admin Dose 0.5 MG; Start 10/29/18 at 08:00 Lansoprazole (Prevacid) 30 mg DAILY@06 GTB Last administered on 11/14/18 06:01; Admin Dose 30 MG; Start 10/31/18 at 06:00 Metoprolol Tartrate (Lopressor) 25 mg BID PO Last administered on 11/14/18 0 8:52; Admin Dose 25 MG; Start 10/31/18 at 12:00 Sodium Phosphate (Neutra-Phos) 250 mg BID PO Last administered on 11/14/18 08:50; Admin Dose 250 MG; Start 11/01/18 at 09:00 Apixaban (Eliquis) 2.5 mg BID PO Last administered on 11/14/18 08:51; Admin Dose 2.5 MG; Start 11/02/18 at 09:00 Morphine Sulfate (morphine) 15 mg Q4H PRN PO SEVERE PAIN LEVEL 7-10; Start 11/04/18 at 14:30 Lorazepam (Ativan) 1 mg Q6H PRN IV SEIZURES; Start 11/04/18 at 15:00 Lorazepam (Ativan) 1 mg Q6H PRN PO ANXIETY; Start 11/04/18 at 15:00 Docusate Sodium (Colace Liquid Cup) 100 mg BID NGT Last administered on 11/14/18 08:50; Admin Dose 100 MG; Start 11/04/18 at 21:00 Bisacodyl (Dulcolax Supp) 10 mg DAILY PRN [place] CONSTIPATION Last administered on 11/05/18at 12:21; Admin Dose 10 MG; Start 11/05/18 at 11:30 IV Flush (NS 10 ml) 10 ml PRN PRN IV IV PROTOCOL; Start 11/07/18 at 15:00 Levetiracetam (Keppra Liquid) 500 mg BID GTB Last administered on 11/14/18 08:50; Admin Dose 500 MG; Start 11/08/18 at 21:00 IMER VARGAS Nov 14, 2018 15:01
--- NOTE | 2018-11-14 16:34 | CONS ---
Date/Time of Note Date/Time of Note DATE: 11/14/18 TIME: 16:33 Assessment/Plan Assessment/Plan Hospital Course Subjective: No acute events patient is noncommunicative looks comfortable afebrile tolerates tube feeding WBC today 4 platelets 228 neutrophils 67.7 BUN 29 creatinine 0.80 Indwelling: Tracheostomy, NG tube, Damon catheter, peripheral IV Physical examination: Chronically ill-appearing elderly woman who is awake nonverbal noncommunicative and in no distress. Head atraumatic normocephalic sclera nonicteric. Neck is supple, tracheostomy present. Chest rise symmetrical, breath sounds diminished bases. Heart: S1-S2. Abdomen soft bowel sounds present. Extremities with trace edema. Assessment: 1. Acute encephalopathy secondary to CVA 2. Status post urinary tract infection 3. Seizure disorder/status epilepticus 4. Status post bacteremia, consistent with contaminant 5. MRSA nares colonization 6. Atrial fibrillation 7. Status post healthcare associated pneumonia 8. Bilateral superficial venous thrombus within the cephalic veins. Plan: Remains stable, off antibiotics, continue present care, follow neurology and pulmonary recommendations, repeat cultures prn ?PEG Result Diagram: 11/14/18 0455 11/14/18 0455 Results 24hrs Laboratory Tests Test 11/14/18 04:55 White Blood Count 4.0 L Red Blood Count 2.71 L Hemoglobin 8.3 L Hematocrit 27.8 L Mean Corpuscular Volume 102.6 H Mean Corpuscular Hemoglobin 30.6 Mean Corpuscular Hemoglobin Concent 29.9 L Red Cell Distribution Width 15.9 H Platelet Count 228 Mean Platelet Volume 9.8 Immature Granulocytes % 0.700 H Neutrophils % 67.7 Lymphocytes % 24.7 Monocytes % 4.2 Eosinophils % 2.2 Basophils % 0.5 Nucleated Red Blood Cells % 0.0 Immature Granulocytes # 0.030 Neutrophils # 2.7 Lymphocytes # 1.0 Monocytes # 0.2 L Eosinophils # 0.1 Basophils # 0.0 Nucleated Red Blood Cells # 0.0 Sodium Level 138 Potassium Level 4.4 Chloride Level 104 Carbon Dioxide Level 30 Anion Gap 4 L Blood Urea Nitrogen 29 H Creatinine 0.80 Est Glomerular Filtrat Rate mL/min Glucose Level 126 Calcium Level 8.5 Consultation Date/Type/Reason Admit Date/Time Oct 27, 2018 at 08:14 Initial Consult Date 10/28/18 Type of Consult ID Requesting Provider: JAYLEN LUGO MD Exam/Review of Systems Vital Signs Vitals Vital Signs Date Temp Pulse Resp B/P (MAP) Pulse Ox O2 O2 Flow FiO2 Time Delivery Rate 11/14/18 98.6 89 17 123/66 98 Mechanical 15:54 (85) Ventilator 11/14/18 30 15:15 Intake and Output 11/13/18 11/13/18 11/14/18 1515:00 23:00 07:00 IntakeIntake Total 1200 ml 600 ml OutputOutput Total 875 ml 950 ml BalanceBalance 325 ml -350 ml Medications Medications Current Medications Metoprolol Tartrate (Lopressor) 5 mg Q4H PRN IV HR>110 Hold SBP<100 Last administered on 10/28/18 05:38; Admin Dose 5 MG; Start 10/27/18 at 13:30 Acetaminophen (Tylenol Supp) 650 mg Q6H PRN [place] FEVER GREATER THAN 100.6 Last administered on 10/28/18 03:07; Admin Dose 650 MG; Start 10/28/18 at 02:30 Hydralazine HCl (Apresoline) 10 mg Q4H PRN IV SBP>170; Start 10/28/18 at 11:00 Mupirocin (Bactroban) 1 applic BID TOP Last administered on 11/14/18 08:56; Admin Dose 1 APPLIC; Start 10/28/18 at 21:00 Levalbuterol (Xopenex Neb) 1.25 mg Q6H RESP THERAPY HHN Last administered on 11/14/18 13:09; Admin Dose 1.25 MG; Start 10/29/18 at 08:00 Budesonide (Pulmicort (Neb)) 0.5 mg BID RESP THERAPY HHN Last administered on 11/14/18 09:05; Admin Dose 0.5 MG; Start 10/29/18 at 09:00 Ipratropium [place] (Atrovent 0.02% (Neb)) 0.5 mg Q6H RESP THERAPY HHN Last administered on 11/14/18 13:09; Admin Dose 0.5 MG; Start 10/29/18 at 08:00 Lansoprazole (Prevacid) 30 mg DAILY@06 GTB Last administered on 11/14/18 06:01; Admin Dose 30 MG; Start 10/31/18 at 06:00 Metoprolol Tartrate (Lopressor) 25 mg BID PO Last administered on 11/14/18 0 8:52; Admin Dose 25 MG; Start 10/31/18 at 12:00 Sodium Phosphate (Neutra-Phos) 250 mg BID PO Last administered on 11/14/18 08:50; Admin Dose 250 MG; Start 11/01/18 at 09:00 Apixaban (Eliquis) 2.5 mg BID PO Last administered on 11/14/18 08:51; Admin Dose 2.5 MG; Start 11/02/18 at 09:00 Morphine Sulfate (morphine) 15 mg Q4H PRN PO SEVERE PAIN LEVEL 7-10; Start 11/04/18 at 14:30 Lorazepam (Ativan) 1 mg Q6H PRN IV SEIZURES; Start 11/04/18 at 15:00 Lorazepam (Ativan) 1 mg Q6H PRN PO ANXIETY; Start 11/04/18 at 15:00 Docusate Sodium (Colace Liquid Cup) 100 mg BID NGT Last administered on 11/14/18 08:50; Admin Dose 100 MG; Start 11/04/18 at 21:00 Bisacodyl (Dulcolax Supp) 10 mg DAILY PRN [place] CONSTIPATION Last administered on 11/05/18at 12:21; Admin Dose 10 MG; Start 11/05/18 at 11:30 IV Flush (NS 10 ml) 10 ml PRN PRN IV IV PROTOCOL; Start 11/07/18 at 15:00 Levetiracetam (Keppra Liquid) 500 mg BID GTB Last administered on 11/14/18 08:50; Admin Dose 500 MG; Start 11/08/18 at 21:00 DEBO UMANA NP Nov 14, 2018 16:34
[2018-11-15] VITALS (30 sets, daily range): BP systolic 108–169; BP diastolic 56–80; PULSE 60–186; RESP 16–25
[2018-11-15] MEDS: LEVALBUTEROL (NEB) 1.25 MG/0.5 ML AMP HHN SCH ×4 (01:41→20:20)
[2018-11-15] MEDS: IPRATROPIUM (NEB) 0.5 MG/2.5 ML AMP HHN SCH ×4 (01:41→20:19)
[2018-11-15] MEDS: LANSOPRAZOLE 30 MG CAP GTB SCH (05:37)
[2018-11-15] MEDS: LORAZEPAM 1 MG TAB PO PRN (06:53)
[2018-11-15] MEDS: METOPROLOL 5 MG INJ IV PRN (07:59)
[2018-11-15] MEDS ORDERED: ACETAMINOPHEN 650MG/20.3ML CUP NGT PRN (08:00)
[2018-11-15] MEDS ORDERED: ONDANSETRON 4 MG INJ IV PRN (08:00)
[2018-11-15] MEDS: LEVETIRACETAM (100 MG/ML) 5ML CUP GTB SCH ×2 (08:03→21:07)
[2018-11-15] MEDS: DOCUSATE SODIUM 10 MG/ML (10ML CUP) NGT SCH ×2 (08:04→21:07)
[2018-11-15] MEDS: METOPROLOL 25 MG TAB PO SCH (08:04)
[2018-11-15] MEDS: APIXABAN 5 MG TABLET PO SCH ×2 (08:04→21:08)
[2018-11-15] MEDS: NEUTRA-PHOS 250 MG PACKET PO SCH ×2 (08:04→21:07)
[2018-11-15] MEDS: MUPIROCIN 2% 22 GM OINT TOP SCH ×2 (08:05→21:09)
[2018-11-15] MEDS: BALSAM PERU/CASTOR OIL 60 GM TUBE TOP SCH (08:05)
[2018-11-15] MEDS: BUDESONIDE (NEB) 0.5MG/2ML AMP HHN SCH ×2 (09:00→20:19)
[2018-11-15] MEDS ORDERED: DILTIAZEM-D5W 125MG/125ML DRIP 125 ML IV SCH (10:00)
--- NOTE | 2018-11-15 10:01 | PN ---
Date/Time of Note Date/Time of Note DATE: 11/15/18 TIME: 10:00 Assessment/Plan VTE Prophylaxis Risk score (from [facility])>0 risk: 9 SCD applied (from [facility]): Yes Pharmacological prophylaxis: other Lines/Catheters IV Catheter Type (from [facility]): PICC Line Central line still needed: Yes Urinary Cath still in place: Yes Reason Cath still needed: urinary retention Assessment/Plan Hospital Course renal follow up SUBJECTIVE: The patient is stable. No events overnight. No fevers, chills, nausea, vomiting. OBJECTIVE: HEENT: Head is normocephalic. NECK: Supple. HEART: Regular rate. LUNGS: Show diminished breath sounds at the base. ABDOMEN: Soft, nontender to palpation without rebound or guarding. EXTREMITIES: Negative for clubbing, cyanosis, no edema. DERMATOLOGIC: No rashes. MUSCULOSKELETAL: No joint effusion. NEUROLOGIC: No change in exam. MEDICATIONS: Reviewed. LABORATORY DATA: Has been reviewed. ASSESSMENT AND PLAN: 1. Nonoliguric acute kidney injury. The patient's renal function has improved after holding diuretics. At this point, continue current plans, supportive care, renally dose all meds. 2. Hyponatremia, improved. Continue free water flushes. 3. Acute diastolic heart failure. The patient appears near euvolemic status. Continue to monitor, give intermittent diuretic therapy as needed. 4. Anemia. Monitor hemoglobin and hematocrit levels. 5. Mineral bone disorder, monitor calcium and phosphorus levels. 6. Atrial fibrillation. Continue medical management. 7. Ventilatory-dependent respiratory failure. Vent settings and ABG was reviewed. Continue to monitor. 8. Dysphagia. Continue tube feeding. 9. Seizure disorder. Continue current treatment plan. 10. Sepsis. The patient has completed antibiotic course. 11. Acute encephalopathy. Continue to monitor. 12. History of cerebrovascular accident. Continue current treatment plan. will follow prn thanks Result Diagram: 11/15/18 0537 11/15/18 0537 Results 24hrs Laboratory Tests Test 11/15/18 05:37 11/15/18 08:44 11/15/18 09:00 White Blood Count 5.2 # Red Blood Count 2.85 L Hemoglobin 8.7 L Hematocrit 29.7 L Mean Corpuscular Volume 104.2 H Mean Corpuscular Hemoglobin 30.5 Mean Corpuscular Hemoglobin Concent 29.3 L Red Cell Distribution Width 15.9 H Platelet Count 265 Mean Platelet Volume 9.7 Immature Granulocytes % 0.600 H Neutrophils % 70.7 Lymphocytes % 22.7 Monocytes % 3.7 Eosinophils % 1.9 Basophils % 0.4 Nucleated Red Blood Cells % 0.0 Immature Granulocytes # 0.030 Neutrophils # 3.7 Lymphocytes # 1.2 Monocytes # 0.2 L Eosinophils # 0.1 Basophils # 0.0 Nucleated Red Blood Cells # 0.0 Sodium Level 140 Potassium Level 4.6 Chloride Level 104 Carbon Dioxide Level 32 H Anion Gap 4 L Blood Urea Nitrogen 27 H Creatinine 0.84 Est Glomerular Filtrat Rate mL/min Glucose Level 115 Calcium Level 8.8 Bedside Glucose 148 Lactic Acid Level 2.0 Exam/Review of Systems Vital Signs Vitals Vital Signs Date Temp Pulse Resp B/P (MAP) Pulse Ox O2 O2 Flow FiO2 Time Delivery Rate 11/15/18 148 09:29 11/15/18 100.2 08:48 11/15/18 25 158/80 100 [place] 07:23 (106) l Ventilato r 11/15/18 30 05:47 Intake and Output 11/14/18 11/14/18 11/15/18 1515:00 23:00 07:00 IntakeIntake Total 1060 ml 899 ml OutputOutput Total 1450 ml 450 ml BalanceBalance -390 ml 449 ml Medications Medications Current Medications Metoprolol Tartrate (Lopressor) 5 mg Q4H PRN IV HR>110 Hold SBP<100 Last administered on 11/15/18 07:59; Admin Dose 5 MG; Start 10/27/18 at 13:30 Acetaminophen (Tylenol Supp) 650 mg Q6H PRN [place] FEVER GREATER THAN 100.6 Last administered on 10/28/18at 03:07; Admin Dose 650 MG; Start 10/28/18 at 02:30 Hydralazine HCl (Apresoline) 10 mg Q4H PRN IV SBP>170; Start 10/28/18 at 11:00 Mupirocin (Bactroban) 1 applic BID TOP Last administered on 11/15/18 08:05; Admin Dose 1 APPLIC; Start 10/28/18 at 21:00 Levalbuterol (Xopenex Neb) 1.25 mg Q6H RESP THERAPY HHN Last administered on 11/15/18 08:13; Admin Dose 1.25 MG; Start 10/29/18 at 08:00 Budesonide (Pulmicort (Neb)) 0.5 mg BID RESP THERAPY HHN Last administered on 11/14/18 20:29; Admin Dose 0.5 MG; Start 10/29/18 at 09:00 Ipratropium [place] (Atrovent 0.02% (Neb)) 0.5 mg Q6H RESP THERAPY HHN Last administered on 11/15/18 08:12; Admin Dose 0.5 MG; Start 10/29/18 at 08:00 Lansoprazole (Prevacid) 30 mg DAILY@06 GTB Last administered on 11/15/18 05:37; Admin Dose 30 MG; Start 10/31/18 at 06:00 Metoprolol Tartrate (Lopressor) 25 mg BID PO Last administered on 11/15/18 08:04; Admin Dose 25 MG; Start 10/31/18 at 12:00 Sodium Phosphate (Neutra-Phos) 250 mg BID PO Last administered on 11/15/18 08:04; Admin Dose 250 MG; Start 11/01/18 at 09:00 Apixaban (Eliquis) 2.5 mg BID PO Last administered on 11/15/18 08:04; Admin Dose 2.5 MG; Start 11/02/18 at 09:00 Morphine Sulfate (morphine) 15 mg Q4H PRN PO SEVERE PAIN LEVEL 7-10; Start 11/04/18 at 14:30 Lorazepam (Ativan) 1 mg Q6H PRN IV SEIZURES; Start 11/04/18 at 15:00 Lorazepam (Ativan) 1 mg Q6H PRN PO ANXIETY Last administered on 11/15/18 06:53; Admin Dose 1 MG; Start 11/04/18 at 15:00 Docusate Sodium (Colace Liquid Cup) 100 mg BID NGT Last administered on 11/15/18 at 08:04; Admin Dose 100 MG; Start 11/04/18 at 21:00 Bisacodyl (Dulcolax Supp) 10 mg DAILY PRN [place] CONSTIPATION Last administered on 11/05/18at 12:21; Admin Dose 10 MG; Start 11/05/18 at 11:30 IV Flush (NS 10 ml) 10 ml PRN PRN IV IV PROTOCOL; Start 11/07/18 at 15:00 Levetiracetam (Keppra Liquid) 500 mg BID GTB Last administered on 11/15/18at 08:03; Admin Dose 500 MG; Start 11/08/18 at 21:00 Ondansetron HCl (Zofran Inj) 4 mg Q6H PRN IV NAUSEA AND/OR VOMITING; Start 11/15/18 at 08:00 Acetaminophen (Tylenol Liquid) 650 mg Q4H PRN NGT MILD PAIN(1-3)OR ELEVATED TEMP Last administered on 11/15/18at 08:03; Admin Dose 650 MG; Start 11/15/18 at 08:00 Diltiazem HCl 125 ml @ 5 mls/hr TITRATE IV Last administered on 11/15/18at 09:17; Admin Dose 5 MLS/HR; Start 11/15/18 at 10:00 Cefepime HCl 50 ml @ 100 mls/hr Q12 IVPB ; Start 11/15/18 at 10:30 Levofloxacin/ Dextrose 150 ml @ 100 mls/hr Q24H IVPB ; Start 11/15/18 at 10:30 CLAIRE MARTINEZ DO Nov 15, 2018 10:01
[2018-11-15] MEDS: LEVOFLOXACIN 750MG/D5W (PMX) 150 ML IVPB SCH (11:44)
--- NOTE | 2018-11-15 13:07 | CONS ---
Assessment/Plan Assessment/Plan Hospital Course A: 73 yo F with reported Hx of afib, HTN, and other comorbidities...who presents with ams, tachyarrhythmia, and involuntary muscle jerking...for which neurology is consulted. The clinical picture was initially consistent w/ status epilepticus...which has since responded to AED Tx.. The pt was addtionally noted to be in afib with RVR on readmission, which raised concern for superimposed acute stroke. MRI brain confirmed acute multilobar infarcts. EEG was notable for frequent right hemispheric epileptiform discharges, which was clinically consistent with status epilepticus. Echo was unrevealing. Repeat CTH was unrevealing. P: Cont maintenance Keppra 500 BID for now Ativan iv for prolonged seizure > 5min or for cluster Continue Lipitor for secondary stroke prevention Eliquis OK for the same Other medical management and supportive care per primary Will follow clinically Result Diagram: 11/15/18 0537 11/15/18 0537 Results 24hrs Laboratory Tests Test 11/15/18 05:37 11/15/18 08:44 11/15/18 09:00 White Blood Count 5.2 # Red Blood Count 2.85 L Hemoglobin 8.7 L Hematocrit 29.7 L Mean Corpuscular Volume 104.2 H Mean Corpuscular Hemoglobin 30.5 Mean Corpuscular Hemoglobin Concent 29.3 L Red Cell Distribution Width 15.9 H Platelet Count 265 Mean Platelet Volume 9.7 Immature Granulocytes % 0.600 H Neutrophils % 70.7 Lymphocytes % 22.7 Monocytes % 3.7 Eosinophils % 1.9 Basophils % 0.4 Nucleated Red Blood Cells % 0.0 Immature Granulocytes # 0.030 Neutrophils # 3.7 Lymphocytes # 1.2 Monocytes # 0.2 L Eosinophils # 0.1 Basophils # 0.0 Nucleated Red Blood Cells # 0.0 Sodium Level 140 Potassium Level 4.6 Chloride Level 104 Carbon Dioxide Level 32 H Anion Gap 4 L Blood Urea Nitrogen 27 H Creatinine 0.84 Est Glomerular Filtrat Rate mL/min Glucose Level 115 Calcium Level 8.8 Bedside Glucose 148 Urine Color YELLOW Urine Clarity CLOUDY A Urine pH 7.0 Urine Specific [place] 1.011 Urine Ketones NEGATIVE Urine Nitrite POSITIVE A Urine Bilirubin NEGATIVE Urine Urobilinogen 1+ H Urine Leukocyte Esterase 2+ H Urine Microscopic RBC 9 H Urine Microscopic WBC 38 H Urine Squamous Epithelial Cells MODERATE Urine Bacteria FEW A Urine Hemoglobin NEGATIVE Urine Glucose NEGATIVE Urine Total Protein 1+ H Lactic Acid Level 2.0 Consultation Date/Type/Reason Admit Date/Time Oct 27, 2018 at 08:14 Type of Consult Neurology Requesting Provider: JAYLEN LUGO MD Date/Time of Note DATE: 11/15/18 TIME: 13:07 24 HR Interval Summary Free Text/Dictation Continues telemetry monitoring. No acute events or changes in pt condition reported. Family at bedside. Subjective hx not possible: pt non-verbal Exam Vital Signs Vitals Vital Signs Date Temp Pulse Resp B/P (MAP) Pulse Ox O2 O2 Flow FiO2 Time Delivery Rate 11/15/18 98.1 78 116/56 100 Mechanical 11:49 (76) Ventilator 11/15/18 17 45 11:10 Intake and Output 11/14/18 11/14/18 11/15/18 1515:00 23:00 07:00 IntakeIntake Total 1060 ml 899 ml OutputOutput Total 1450 ml 450 ml BalanceBalance -390 ml 449 ml Exam PE: Gen Appearance: No Apparent Distress HEENT: Has trach Cardiovascular: SR on telemetry Abdomen: Soft Extremities: Dry NE: The patient was awake and alert though nonverbal, d/t trach. Jaw tremors were noted, however pt was able to mouth words. Was blinking spontaneously. The pt intermittently followed appendicular commands. Cranial nerve examination was limited by mental status. Pupils were equal, round and briskly reactive to light. There was no afferent pupillary defect. Funduscopic examination was limited. Face was grossly symmetric, w/ a present cough/gag reflex. Tone was increased in her upper extremities . Muscle bulk was slightly diminished. I did not see fasciculations. The patient moved her upper extremities spontaneously and withdrew her lowers extremities to noxious stimuli. Coordination and gait testing was limited by mental status. Arm and leg reflexes were symmetric. Doshi's sign was absent. Plantar responses were flexor. JOE WYATT NP Nov 15, 2018 13:07
[2018-11-15] MEDS: CEFEPIME 2GM/50 ML (PMX) 50 ML IVPB SCH ×2 (13:38→21:07)
[2018-11-15] MEDS ORDERED: VANCOMYCIN IV PER PHARMACY XX SCH (14:00)
[2018-11-15] MEDS ORDERED: VANCOMYCIN 1.75 GM in SOD CHLORIDE 0.9% 500 ML IVPB SCH (15:00)
--- NOTE | 2018-11-15 15:34 | CONS ---
Date/Time of Note Date/Time of Note DATE: 11/15/18 TIME: 15:32 Assessment/Plan Assessment/Plan Hospital Course Subjective: Patient spiked fever this morning of 101.2 clinically unchanged in no distress WBC today 5.2 platelets 265 neutrophils 70.7 BUN 27 creatinine 0.84 Antimicrobials: Vancomycin, cefepime, levofloxacin Indwelling: Tracheostomy, NG tube, Damon catheter, peripheral IV Physical examination: Chronically ill-appearing elderly woman who is awake nonverbal noncommunicative and in no distress. Head atraumatic normocephalic sclera nonicteric. Neck is supple, tracheostomy present. Chest rise symmetric al, breath sounds diminished bases. Heart: S1-S2. Abdomen soft bowel sounds present. Extremities with trace edema. Assessment: 1. Fevers, possibly nosocomial sepsis ?aspirated 2. Acute encephalopathy secondary to CVA 3. Status post urinary tract infection 4. Seizure disorder/status epilepticus 5. Status post bacteremia, consistent with contaminant 6. MRSA nares colonization 7. Atrial fibrillation 8. Status post healthcare associated pneumonia 9. Bilateral superficial venous thrombus within the cephalic veins. Plan: Clinically unchanged, started on broad-spectrum antibiotics, we will repeat cultures and chest x-ray, follow neurology and pulmonary recommendations Result Diagram: 11/15/18 0537 11/15/18 0537 Results 24hrs Laboratory Tests Test 11/15/18 05:37 11/15/18 08:44 11/15/18 09:00 White Blood Count 5.2 # Red Blood Count 2.85 L Hemoglobin 8.7 L Hematocrit 29.7 L Mean Corpuscular Volume 104.2 H Mean Corpuscular Hemoglobin 30.5 Mean Corpuscular Hemoglobin Concent 29.3 L Red Cell Distribution Width 15.9 H Platelet Count 265 Mean Platelet Volume 9.7 Immature Granulocytes % 0.600 H Neutrophils % 70.7 Lymphocytes % 22.7 Monocytes % 3.7 Eosinophils % 1.9 Basophils % 0.4 Nucleated Red Blood Cells % 0.0 Immature Granulocytes # 0.030 Neutrophils # 3.7 Lymphocytes # 1.2 Monocytes # 0.2 L Eosinophils # 0.1 Basophils # 0.0 Nucleated Red Blood Cells # 0.0 Sodium Level 140 Potassium Level 4.6 Chloride Level 104 Carbon Dioxide Level 32 H Anion Gap 4 L Blood Urea Nitrogen 27 H Creatinine 0.84 Est Glomerular Filtrat Rate mL/min Glucose Level 115 Calcium Level 8.8 Bedside Glucose 148 Urine Color YELLOW Urine Clarity CLOUDY A Urine pH 7.[address] 1.011 Urine Ketones NEGATIVE Urine Nitrite POSITIVE A Urine Bilirubin NEGATIVE Urine Urobilinogen 1+ H Urine Leukocyte Esterase 2+ H Urine Microscopic RBC 9 H Urine Microscopic WBC 38 H Urine Squamous Epithelial Cells MODERATE Urine Bacteria FEW A Urine Hemoglobin NEGATIVE Urine Glucose NEGATIVE Urine Total Protein 1+ H Lactic Acid Level 2.0 Consultation Date/Type/Reason Admit Date/Time Oct 27, 2018 at 08:14 Initial Consult Date 10/28/18 Type of Consult ID Requesting Provider: JAYLEN LUOG MD Exam/Review of Systems Vital Signs Vitals Vital Signs Date Temp Pulse Resp B/P (MAP) Pulse Ox O2 O2 Flow FiO2 Time Delivery Rate 11/15/18 97.8 76 20 158/64 100 Mechanical 14:00 (95) Ventilator 11/15/18 40 13:15 Intake and Output 11/14/18 11/14/18 11/15/18 1515:00 23:00 07:00 IntakeIntake Total 1060 ml 899 ml OutputOutput Total 1450 ml 450 ml BalanceBalance -390 ml 449 ml Medications Medications Current Medications Metoprolol Tartrate (Lopressor) 5 mg Q4H PRN IV HR>110 Hold SBP<100 Last administered on 11/15/18 07:59; Admin Dose 5 MG; Start 10/27/18 at 13:30 Acetaminophen (Tylenol Supp) 650 mg Q6H PRN [place] FEVER GREATER THAN 100.6 Last administered on 10/28/18at 03:07; Admin Dose 650 MG; Start 10/28/18 at 02:30 Hydralazine HCl (Apresoline) 10 mg Q4H PRN IV SBP>170; Start 10/28/18 at 11:00 Mupirocin (Bactroban) 1 applic BID TOP Last administered on 11/15/18 08:05; Admin Dose 1 APPLIC; Start 10/28/18 at 21:00 Levalbuterol (Xopenex Neb) 1.25 mg Q6H RESP THERAPY HHN Last administered on 11/15/18 15:31; Admin Dose 1.25 MG; Start 10/29/18 at 08:00 Budesonide (Pulmicort (Neb)) 0.5 mg BID RESP THERAPY HHN Last administered on 11/14/18 20:29; Admin Dose 0.5 MG; Start 10/29/18 at 09:00 Ipratropium [place] (Atrovent 0.02% (Neb)) 0.5 mg Q6H RESP THERAPY HHN Last administered on 11/15/18 15:30; Admin Dose 0.5 MG; Start 10/29/18 at 08:00 Lansoprazole (Prevacid) 30 mg DAILY@06 GTB Last administered on 11/15/18 05:37; Admin Dose 30 MG; Start 10/31/18 at 06:00 Metoprolol Tartrate (Lopressor) 25 mg BID PO Last administered on 11/15/18 08:04; Admin Dose 25 MG; Start 10/31/18 at 12:00 Sodium Phosphate (Neutra-Phos) 250 mg BID PO Last administered on 11/15/18 08:04; Admin Dose 250 MG; Start 11/01/18 at 09:00 Apixaban (Eliquis) 2.5 mg BID PO Last administered on 11/15/18 08:04; Admin Dose 2.5 MG; Start 11/02/18 at 09:00 Morphine Sulfate (morphine) 15 mg Q4H PRN PO SEVERE PAIN LEVEL 7-10; Start 11/04/18 at 14:30 Lorazepam (Ativan) 1 mg Q6H PRN IV SEIZURES; Start 11/04/18 at 15:00 Lorazepam (Ativan) 1 mg Q6H PRN PO ANXIETY Last administered on 11/15/18 06:53; Admin Dose 1 MG; Start 11/04/18 at 15:00 Docusate Sodium (Colace Liquid Cup) 100 mg BID NGT Last administered on 11/15/18 08:04; Admin Dose 100 MG; Start 11/04/18 at 21:00 Bisacodyl (Dulcolax Supp) 10 mg DAILY PRN [place] CONSTIPATION Last administered on 11/05/18 12:21; Admin Dose 10 MG; Start 11/05/18 at 11:30 IV Flush (NS 10 ml) 10 ml PRN PRN IV IV PROTOCOL; Start 11/07/18 at 15:00 Levetiracetam (Keppra Liquid) 500 mg BID GTB Last administered on 11/15/18 08:03; Admin Dose 500 MG; Start 11/08/18 at 21:00 Ondansetron HCl (Zofran Inj) 4 mg Q6H PRN IV NAUSEA AND/OR VOMITING; Start 11/15/18 at 08:00 Acetaminophen (Tylenol Liquid) 650 mg Q4H PRN NGT MILD PAIN(1-3)OR ELEVATED TEMP Last administered on 11/15/18at 08:03; Admin Dose 650 MG; Start 11/15/18 at 08:00 Diltiazem HCl 125 ml @ 5 mls/hr TITRATE IV Last administered on 11/15/18at 09:17; Admin Dose 5 MLS/HR; Start 11/15/18 at 10:00 Cefepime HCl 50 ml @ 100 mls/hr Q12 IVPB Last administered on 11/15/18at 13:38; Admin Dose 100 MLS/HR; Start 11/15/18 at 10:30 Levofloxacin/ Dextrose 150 ml @ 100 mls/hr Q24H IVPB Last administered on 11/15/18at 11:44; Admin Dose 100 MLS/HR; Start 11/15/18 at 10:30 Vancomycin HCl (Vanco Iv Per Pharmacy) VANCOMYCIN PER PHARMACY PER PROTOCOL XX ; Start 11/15/18 at 14:00 Vancomycin HCl 1.75 gm/Sodium Chloride 500 ml @ 125 mls/hr 1500 IVPB ; Start 11/15/18 at 15:00; Stop 11/15/18 at 23:00 Vancomycin HCl 1.25 gm/Sodium Chloride 250 ml @ 83.333 mls/ hr Q48H IVPB ; Start 11/17/18 at 15:00 DEBO UMANA NP Nov 15, 2018 15:34
--- NOTE | 2018-11-15 18:02 | CONS ---
Date/Time of Note Date/Time of Note DATE: 11/15/18 TIME: 17:59 Assessment/Plan Assessment/Plan Hospital Course IMPRESSION: 1. Atrial fibrillation with a rapid ventricular response.-now in SR and remains. Had SVT ths am in the setting of fevers, intially regular at 170-180. Improved after starting silt drip. ? AVNRT/AT-now SR 2. Abnormal electrocardiogram with ST depressions during atrial fibrillation with rapid ventricular response. 3. Altered mental state/encephalopathy. 4. Possible seizure-like activity. 5. Congestive heart failure, diastolic, chronic. 6. Hypertension. 7. Urinary tract infection. 8. Renal failure. 9. Leukocytosis. 10. bacteremia 11.fevers Recc: -Tele -Continue IVP BB PRN -continue PO BB with increase to suppress further bouts of SVT -Continue eliquis -Continue abx's and f/u cx data -IVP PRN hydralazine -Continue bronchodilators -follow MS closely -Follow volume status closely Result Diagram: 11/15/18 0537 11/15/18 0537 Results 24hrs Laboratory Tests Test 11/15/18 05:37 11/15/18 08:44 11/15/18 09:00 White Blood Count 5.2 # Red Blood Count 2.85 L Hemoglobin 8.7 L Hematocrit 29.7 L Mean Corpuscular Volume 104.2 H Mean Corpuscular Hemoglobin 30.5 Mean Corpuscular Hemoglobin Concent 29.3 L Red Cell Distribution Width 15.9 H Platelet Count 265 Mean Platelet Volume 9.7 Immature Granulocytes % 0.600 H Neutrophils % 70.7 Lymphocytes % 22.7 Monocytes % 3.7 Eosinophils % 1.9 Basophils % 0.4 Nucleated Red Blood Cells % 0.0 Immature Granulocytes # 0.030 Neutrophils # 3.7 Lymphocytes # 1.2 Monocytes # 0.2 L Eosinophils # 0.1 Basophils # 0.0 Nucleated Red Blood Cells # 0.0 Sodium Level 140 Potassium Level 4.6 Chloride Level 104 Carbon Dioxide Level 32 H Anion Gap 4 L Blood Urea Nitrogen 27 H Creatinine 0.84 Est Glomerular Filtrat Rate mL/min Glucose Level 115 Calcium Level 8.8 Bedside Glucose 148 Urine Color YELLOW Urine Clarity CLOUDY A Urine pH 7.0 Urine Specific [place] 1.011 Urine Ketones NEGATIVE Urine Nitrite POSITIVE A Urine Bilirubin NEGATIVE Urine Urobilinogen 1+ H Urine Leukocyte Esterase 2+ H Urine Microscopic RBC 9 H Urine Microscopic WBC 38 H Urine Squamous Epithelial Cells MODERATE Urine Bacteria FEW A Urine Hemoglobin NEGATIVE Urine Glucose NEGATIVE Urine Total Protein 1+ H Lactic Acid Level 2.0 Consultation Date/Type/Reason Admit Date/Time Oct 27, 2018 at 08:14 Initial Consult Date 10/27/18 Type of Consult cardiology Reason for Consultation PAF Requesting Provider: JAYLEN LUGO MD Exam/Review of Systems Vital Signs Vitals Vital Signs Date Temp Pulse Resp B/P (MAP) Pulse Ox O2 O2 Flow FiO2 Time Delivery Rate 11/15/18 91 22 99 30 17:20 11/15/18 98.3 135/63 Nasal 15:53 (87) Cannula Intake and Output 11/14/18 11/14/18 11/15/18 1515:00 23:00 07:00 IntakeIntake Total 1060 ml 899 ml OutputOutput Total 1450 ml 450 ml BalanceBalance -390 ml 449 ml Exam Review of Systems: CONSTITUTIONAL: No fevers, chills. PULMONARY: No sob CARDIOVASCULAR: No chest pain/palpitations GASTROINTESTINAL: No nausea/vomiting. GENITOURINARY: No hematuria/dysuria. MUSCULOSKELETAL: No myagias/arthalgias. PSYCHIATRIC: The patient denies depression. NEUROLOGIC: No weakness Constitutional: alert, oriented Psych: no complaints Head: normocephalic ENMT: mucosa pink and moist Neck: supple, jvd Respiratory: diminished breath sounds (at bases/B) Cardiovascular: regular rate and rhythm Gastrointestinal: soft, non-tender Musculoskeletal: muscle tone (normal) Extremities: edema (none) Neurological: other (No focal deficits) Medications Medications Current Medications Metoprolol Tartrate (Lopressor) 5 mg Q4H PRN IV HR>110 Hold SBP<100 Last administered on 11/15/18at 07:59; Admin Dose 5 MG; Start 10/27/18 at 13:30 Acetaminophen (Tylenol Supp) 650 mg Q6H PRN [place] FEVER GREATER THAN 100.6 Last administered on 10/28/18at 03:07; Admin Dose 650 MG; Start 10/28/18 at 02:30 Hydralazine HCl (Apresoline) 10 mg Q4H PRN IV SBP>170; Start 10/28/18 at 11:00 Mupirocin (Bactroban) 1 applic BID TOP Last administered on 11/15/18 08:05; Admin Dose 1 APPLIC; Start 10/28/18 at 21:00 Levalbuterol (Xopenex Neb) 1.25 mg Q6H RESP THERAPY HHN Last administered on 11/15/18 15:31; Admin Dose 1.25 MG; Start 10/29/18 at 08:00 Budesonide (Pulmicort (Neb)) 0.5 mg BID RESP THERAPY HHN Last administered on 11/14/18 20:29; Admin Dose 0.5 MG; Start 10/29/18 at 09:00 Ipratropium [place] (Atrovent 0.02% (Neb)) 0.5 mg Q6H RESP THERAPY HHN Last administered on 11/15/18 15:30; Admin Dose 0.5 MG; Start 10/29/18 at 08:00 Lansoprazole (Prevacid) 30 mg DAILY@06 GTB Last administered on 11/15/18 05:37; Admin Dose 30 MG; Start 10/31/18 at 06:00 Metoprolol Tartrate (Lopressor) 25 mg BID PO Last administered on 11/15/18 08:04; Admin Dose 25 MG; Start 10/31/18 at 12:00 Sodium Phosphate (Neutra-Phos) 250 mg BID PO Last administered on 11/15/18 08:04; Admin Dose 250 MG; Start 11/01/18 at 09:00 Apixaban (Eliquis) 2.5 mg BID PO Last administered on 11/15/18 08:04; Admin Dose 2.5 MG; Start 11/02/18 at 09:00 Morphine Sulfate (morphine) 15 mg Q4H PRN PO SEVERE PAIN LEVEL 7-10; Start 11/04/18 at 14:30 Lorazepam (Ativan) 1 mg Q6H PRN IV SEIZURES; Start 11/04/18 at 15:00 Lorazepam (Ativan) 1 mg Q6H PRN PO ANXIETY Last administered on 11/15/18 06:53; Admin Dose 1 MG; Start 11/04/18 at 15:00 Docusate Sodium (Colace Liquid Cup) 100 mg BID NGT Last administered on 11/15/18 08:04; Admin Dose 100 MG; Start 12/24/18 at 21:00 Bisacodyl (Dulcolax Supp) 10 mg DAILY PRN [place] CONSTIPATION Last administered on 11/05/18at 12:21; Admin Dose 10 MG; Start 11/05/18 at 11:30 IV Flush (NS 10 ml) 10 ml PRN PRN IV IV PROTOCOL; Start 11/07/18 at 15:00 Levetiracetam (Keppra Liquid) 500 mg BID GTB Last administered on 11/15/18 08:03; Admin Dose 500 MG; Start 11/08/18 at 21:00 Ondansetron HCl (Zofran Inj) 4 mg Q6H PRN IV NAUSEA AND/OR VOMITING; Start 11/15/18 at 08:00 Acetaminophen (Tylenol Liquid) 650 mg Q4H PRN NGT MILD PAIN(1-3)OR ELEVATED TEMP Last administered on 11/15/18 08:03; Admin Dose 650 MG; Start 11/15/18 at 08:00 Diltiazem HCl 125 ml @ 5 mls/hr TITRATE IV Last administered on 11/15/18at 09:17; Admin Dose 5 MLS/HR; Start 11/15/18 at 10:00 Cefepime HCl 50 ml @ 100 mls/hr Q12 IVPB Last administered on 11/15/18at 13:38; Admin Dose 100 MLS/HR; Start 11/15/18 at 10:30 Levofloxacin/ Dextrose 150 ml @ 100 mls/hr Q24H IVPB Last administered on 11/15/18at 11:44; Admin Dose 100 MLS/HR; Start 11/15/18 at 10:30 Vancomycin HCl (Vanco Iv Per Pharmacy) VANCOMYCIN PER PHARMACY PER PROTOCOL XX ; Start 11/15/18 at 14:00 Vancomycin HCl 1.75 gm/Sodium Chloride 500 ml @ 125 mls/hr 1500 IVPB Last administered on 11/15/18 16:27; Admin Dose 125 MLS/HR; Start 11/15/18 at 15:00; Stop 11/15/18 at 23:00 Vancomycin HCl 1.25 gm/Sodium Chloride 250 ml @ 83.333 mls/ hr Q48H IVPB ; Start 11/17/18 at 15:00 LUIS FERGUSON Nov 15, 2018 18:02
[2018-11-15] MEDS ORDERED: DILTIAZEM 25 MG INJ IV PRN (18:30)
[2018-11-15] MEDS: METOPROLOL 50 MG TAB PO SCH (21:08)
[2018-11-16] VITALS (26 sets, daily range): BP systolic 115–149; BP diastolic 57–67; PULSE 72–131; RESP 16–22
[2018-11-16] MEDS: IPRATROPIUM (NEB) 0.5 MG/2.5 ML AMP HHN SCH ×4 (02:17→20:01)
[2018-11-16] MEDS: LEVALBUTEROL (NEB) 1.25 MG/0.5 ML AMP HHN SCH ×4 (02:18→20:01)
[2018-11-16] MEDS: LANSOPRAZOLE 30 MG CAP GTB SCH (06:52)
--- NOTE | 2018-11-16 08:04 | CONS ---
Assessment/Plan Assessment/Plan Hospital Course A: 73 yo F with reported Hx of afib, HTN, and other comorbidities...who presents with ams, tachyarrhythmia, and involuntary muscle jerking...for which neurology is consulted. The clinical picture was initially consistent w/ status epilepticus...which has since responded to AED Tx.. The pt was addtionally noted to be in afib with RVR on readmission, which raised concern for superimposed acute stroke. MRI brain confirmed acute multilobar infarcts. EEG was notable for frequent right hemispheric epileptiform discharges, which was clinically consistent with status epilepticus. Echo was unrevealing. Repeat CTH was unrevealing. P: Cont maintenance Keppra 500 BID for now Ativan iv for prolonged seizure > 5min or for cluster Continue Lipitor for secondary stroke prevention Eliquis OK for the same Other medical management and supportive care per primary Will follow clinically Result Diagram: 11/16/18 0455 11/16/18 0455 Results 24hrs Laboratory Tests Test 11/15/18 08:44 11/15/18 08:52 11/15/18 09:00 11/16/18 04:55 Bedside Glucose 148 Thyroid Stimulating 3.950 Hormone (TSH) Urine Color YELLOW Urine Clarity CLOUDY A Urine pH 7.0 Urine Specific [place] 1.011 Urine Ketones NEGATIVE Urine Nitrite POSITIVE A Urine Bilirubin NEGATIVE Urine Urobilinogen 1+ H Urine Leukocyte Esterase 2+ H Urine Microscopic RBC 9 H Urine Microscopic WBC 38 H Urine Squamous MODERATE Epithelial Cells Urine Bacteria FEW A Urine Hemoglobin NEGATIVE Urine Glucose NEGATIVE Urine Total Protein 1+ H Lactic Acid Level 2.0 White Blood Count 4.7 L Red Blood Count 2.49 L Hemoglobin 7.7 L Hematocrit 25.8 L Mean Corpuscular Volume 103.6 H Mean Corpuscular 30.9 Hemoglobin Mean Corpuscular 29.8 L Hemoglobin Concent Red Cell Distribution 15.9 H Width Platelet Count 229 Mean Platelet Volume 9.7 Immature Granulocytes % 1.100 H Neutrophils % 70.8 Lymphocytes % 22.4 Monocytes % 4.4 Eosinophils % 1.1 Basophils % 0.2 Nucleated Red Blood 0.0 Cells % Immature Granulocytes # 0.050 H Neutrophils # 3.4 Lymphocytes # 1.1 Monocytes # 0.2 L Eosinophils # 0.1 Basophils # 0.0 Nucleated Red Blood 0.0 Cells # Sodium Level 140 Potassium Level 4.6 Chloride Level 105 Carbon Dioxide Level 29 Anion Gap 6 Blood Urea Nitrogen 27 H Creatinine 0.92 Est Glomerular Filtrat Rate mL/min Glucose Level 127 Calcium Level 8.4 Consultation Date/Type/Reason Admit Date/Time Oct 27, 2018 at 08:14 Type of Consult Neurology Requesting Provider: JAYLEN LUGO MD Date/Time of Note DATE: 11/16/18 TIME: 08:03 24 HR Interval Summary Free Text/Dictation Continues telemetry monitoring. Pt reportedly went into afib with rvr yesterday for which cardizem gtt was initiated; pt back in SR now. Subjective hx not possible: pt non-verbal Exam Vital Signs Vitals Vital Signs Date Temp Pulse Resp B/P (MAP) Pulse Ox O2 O2 Flow FiO2 Time Delivery Rate 11/16/18 96.6 86 21 131/58 96 Mechanical 07:49 (82) Ventilator Trach Collar 11/15/18 30 23:04 Intake and Output 11/15/18 11/15/18 11/16/18 1515:00 23:00 07:00 IntakeIntake Total 1000 ml 1110 ml OutputOutput Total 600 ml 900 ml BalanceBalance 400 ml 210 ml Exam PE: Gen Appearance: No Apparent Distress HEENT: Has trach, NGT Cardiovascular: SR on telemetry Abdomen: Soft Extremities: Dry NE: The patient was awake and alert though nonverbal, d/t trach, however pt was able to mouth words. Was blinking spontaneously. The pt intermittently followed appendicular commands. Cranial nerve examination was limited by mental status. Pupils were equal, round and briskly reactive to light. There was no afferent pupillary defect. Funduscopic examination was limited. Face was grossly symmetric, w/ a present cough/gag reflex. Tone was increased in her upper extremities . Muscle bulk was slightly diminished. I did not see fasciculations. The patient moved her upper extremities spontaneously and withdrew her lowers extremities to noxious stimuli. Coordination and gait testing was limited by mental status. Arm and leg reflexes were symmetric. Doshi's sign was absent. Plantar responses were flexor. JOE WYATT NP Nov 16, 2018 08:04 CHRISTIANA LARSON Nov 17, 2018 05:35
[2018-11-16] MEDS: BUDESONIDE (NEB) 0.5MG/2ML AMP HHN SCH ×2 (08:06→19:52)
[2018-11-16] MEDS: CEFEPIME 2GM/50 ML (PMX) 50 ML IVPB SCH ×2 (08:45→21:24)
[2018-11-16] MEDS: APIXABAN 5 MG TABLET PO SCH ×2 (08:46→21:24)
[2018-11-16] MEDS: METOPROLOL 50 MG TAB PO SCH ×2 (08:46→21:24)
[2018-11-16] MEDS: LEVETIRACETAM (100 MG/ML) 5ML CUP GTB SCH ×2 (08:46→21:23)
[2018-11-16] MEDS: NEUTRA-PHOS 250 MG PACKET PO SCH ×2 (08:46→21:24)
[2018-11-16] MEDS: MUPIROCIN 2% 22 GM OINT TOP SCH ×2 (08:46→21:25)
[2018-11-16] MEDS: DOCUSATE SODIUM 10 MG/ML (10ML CUP) NGT SCH ×2 (08:47→21:23)
[2018-11-16] MEDS: BALSAM PERU/CASTOR OIL 60 GM TUBE TOP SCH (08:47)
--- NOTE | 2018-11-16 10:22 | CONS ---
Date/Time of Note Date/Time of Note DATE: 11/16/18 TIME: 10:21 Consult Date/Type/Reason Admit Date/Time Oct 27, 2018 at 08:14 Initial Consult Date 10/28/18 Type of Consultation: Pulmonary ICU Requesting Provider: JAYLEN LUGO MD Objective Vital Signs Date Temp Pulse Resp B/P (MAP) Pulse Ox O2 O2 Flow FiO2 Time Delivery Rate 11/16/18 78 08:00 11/16/18 21 98 07:55 11/16/18 96.6 131/58 Mechanical 07:49 (82) Ventilator Trach Collar 11/15/18 30 23:04 Intake and Output 11/15/18 11/15/18 11/16/18 1515:00 23:00 07:00 IntakeIntake Total 1000 ml 1110 ml OutputOutput Total 600 ml 900 ml BalanceBalance 400 ml 210 ml Results/Medications Result Diagram: 11/16/18 0455 11/16/18 0455 Results 24 hrs Laboratory Tests Test 11/16/18 04:55 White Blood Count 4.7 L Red Blood Count 2.49 L Hemoglobin 7.7 L Hematocrit 25.8 L Mean Corpuscular Volume 103.6 H Mean Corpuscular Hemoglobin 30.9 Mean Corpuscular Hemoglobin Concent 29.8 L Red Cell Distribution Width 15.9 H Platelet Count 229 Mean Platelet Volume 9.7 Immature Granulocytes % 1.100 H Neutrophils % 70.8 Lymphocytes % 22.4 Monocytes % 4.4 Eosinophils % 1.1 Basophils % 0.2 Nucleated Red Blood Cells % 0.0 Immature Granulocytes # 0.050 H Neutrophils # 3.4 Lymphocytes # 1.1 Monocytes # 0.2 L Eosinophils # 0.1 Basophils # 0.0 Nucleated Red Blood Cells # 0.0 Sodium Level 140 Potassium Level 4.6 Chloride Level 105 Carbon Dioxide Level 29 Anion Gap 6 Blood Urea Nitrogen 27 H Creatinine 0.92 Est Glomerular Filtrat Rate mL/min Glucose Level 127 Calcium Level 8.4 Medications Current Medications Acetaminophen (Tylenol Supp) 650 mg Q6H PRN [place] FEVER GREATER THAN 100.6 Last administered on 10/28/18at 03:07; Admin Dose 650 MG; Start 10/28/18 at 02:30 Hydralazine HCl (Apresoline) 10 mg Q4H PRN IV SBP>170; Start 10/28/18 at 11:00 Mupirocin (Bactroban) 1 applic BID TOP Last administered on 11/16/18 08:46; Admin Dose 1 APPLIC; Start 10/28/18 at 21:00 Levalbuterol (Xopenex Neb) 1.25 mg Q6H RESP THERAPY HHN Last administered on 11/16/18 08:06; Admin Dose 1.25 MG; Start 10/29/18 at 08:00 Budesonide (Pulmicort (Neb)) 0.5 mg BID RESP THERAPY HHN Last administered on 11/16/18 08:06; Admin Dose 0.5 MG; Start 10/29/18 at 09:00 Ipratropium [place] (Atrovent 0.02% (Neb)) 0.5 mg Q6H RESP THERAPY HHN Last administered on 11/16/18 08:05; Admin Dose 0.5 MG; Start 10/29/18 at 08:00 Lansoprazole (Prevacid) 30 mg DAILY@06 GTB Last administered on 11/16/18 06:52; Admin Dose 30 MG; Start 10/31/18 at 06:00 Sodium Phosphate (Neutra-Phos) 250 mg BID PO Last administered on 11/16/18 08:46; Admin Dose 250 MG; Start 11/01/18 at 09:00 Apixaban (Eliquis) 2.5 mg BID PO Last administered on 11/16/18 08:46; Admin Dose 2.5 MG; Start 11/02/18 at 09:00 Morphine Sulfate (morphine) 15 mg Q4H PRN PO SEVERE PAIN LEVEL 7-10; Start 11/04/18 at 14:30 Lorazepam (Ativan) 1 mg Q6H PRN IV SEIZURES; Start 11/04/18 at 15:00 Lorazepam (Ativan) 1 mg Q6H PRN PO ANXIETY Last administered on 11/15/18 06:53; Admin Dose 1 MG; Start 11/04/18 at 15:00 Docusate Sodium (Colace Liquid Cup) 100 mg BID NGT Last administered on 11/15/18 21:07; Admin Dose 100 MG; Start 11/04/18 at 21:00 Bisacodyl (Dulcolax Supp) 10 mg DAILY PRN [place] CONSTIPATION Last administered on 12/25/18at 12:21; Admin Dose 10 MG; Start 11/05/18 at 11:30 IV Flush (NS 10 ml) 10 ml PRN PRN IV IV PROTOCOL; Start 11/07/18 at 15:00 Levetiracetam (Keppra Liquid) 500 mg BID GTB Last administered on 11/16/18 08:46; Admin Dose 500 MG; Start 11/08/18 at 21:00 Ondansetron HCl (Zofran Inj) 4 mg Q6H PRN IV NAUSEA AND/OR VOMITING; Start 11/15/18 at 08:00 Acetaminophen (Tylenol Liquid) 650 mg Q4H PRN NGT MILD PAIN(1-3)OR ELEVATED TEMP Last administered on 11/15/18 08:03; Admin Dose 650 MG; Start 11/15/18 at 08:00 Diltiazem HCl 125 ml @ 5 mls/hr TITRATE IV Last administered on 11/15/18 09:17; Admin Dose 5 MLS/HR; Start 11/15/18 at 10:00; Status Hold Cefepime HCl 50 ml @ 100 mls/hr Q12 IVPB Last administered on 11/16/18 08:45; Admin Dose 100 MLS/HR; Start 11/15/18 at 10:30 Levofloxacin/ Dextrose 150 ml @ 100 mls/hr Q24H IVPB Last administered on 11/15/18at 11:44; Admin Dose 100 MLS/HR; Start 11/15/18 at 10:30 Vancomycin HCl (Vanco Iv Per Pharmacy) VANCOMYCIN PER PHARMACY PER PROTOCOL XX ; Start 11/15/18 at 14:00 Vancomycin HCl 1.25 gm/Sodium Chloride 250 ml @ 83.333 mls/ hr Q48H IVPB ; Start 11/17/18 at 15:00 Metoprolol Tartrate (Lopressor) 50 mg BID PO Last administered on 11/16/18 08:46; Admin Dose 50 MG; Start 11/15/18 at 21:00 Diltiazem HCl (Cardizem Iv) 5 mg Q4 PRN IV HR>110 Hold SBP<100; Start 11/15/18 a t 18:30 Assessment/Plan Chief Complaint/Hosp Course The patient is stable. No events overnight. No fevers, chills, nausea, vomiting. good uop PE: HEENT: Head is normocephalic. NECK: Supple. HEART: Regular rate. LUNGS: Show diminished breath sounds at the base. ABDOMEN: Soft, nontender to palpation without rebound or guarding. EXTREMITIES: Negative for clubbing, cyanosis, no edema. DERMATOLOGIC: No rashes. MUSCULOSKELETAL: No joint effusion. NEUROLOGIC: No change in exam. MEDICATIONS: Reviewed. ASSESSMENT AND PLAN: 1. Nonoliguric acute kidney injury. The patient's renal function has improved after holding diuretics. At this point, continue current plans, supportive care, renally dose all meds. 2. Hyponatremia, improved. Continue free water flushes. 3. Acute diastolic heart failure. The patient appears near euvolemic status. Continue to monitor, give intermittent diuretic therapy as needed. 4. Anemia. Monitor hemoglobin and hematocrit levels. 5. Mineral bone disorder, monitor calcium and phosphorus levels. 6. Atrial fibrillation. Continue medical management. 7. Ventilatory-dependent respiratory failure. Vent settings and ABG was reviewed. Continue to monitor. 8. Dysphagia. Continue tube feeding. 9. Seizure disorder. Continue current treatment plan. 10. Sepsis. The patient has completed antibiotic course. 11. Acute encephalopathy. Continue to monitor. 12. History of cerebrovascular accident. Continue current treatment plan. PHILLIP HENDERSON MD Nov 16, 2018 10:21
[2018-11-16] MEDS: LEVOFLOXACIN 750MG/D5W (PMX) 150 ML IVPB SCH (11:22)
--- NOTE | 2018-11-16 12:45 | CONS ---
Date/Time of Note Date/Time of Note DATE: 11/16/18 TIME: 12:43 Assessment/Plan Assessment/Plan Assessment/Plan 1. Atrial fibrillation with a rapid ventricular response.-now in SR and remains. Had SVT ths am in the setting of fevers, intially regular at 170-180. Improved after starting silt drip. ? AVNRT/AT-now SR - NOW RATE CONTROLLED 2. Abnormal electrocardiogram with ST depressions during atrial fibrillation with rapid ventricular response- no CP noed 3. Altered mental state/encephalopathy - might be new baseline 4. Possible seizure-like activity. 5. Congestive heart failure, diastolic, chronic- con't to keep euvolemic. 6. Hypertension- well controlled. 7. Urinary tract infection- on anti-Bx, no fevers nw. 8. Renal failure - avoid nephrotoxic meds. Result Diagram: 11/16/18 0455 11/16/18 0455 Results 24hrs Laboratory Tests Test 11/16/18 04:55 White Blood Count 4.7 L Red Blood Count 2.49 L Hemoglobin 7.7 L Hematocrit 25.8 L Mean Corpuscular Volume 103.6 H Mean Corpuscular Hemoglobin 30.9 Mean Corpuscular Hemoglobin Concent 29.8 L Red Cell Distribution Width 15.9 H Platelet Count 229 Mean Platelet Volume 9.7 Immature Granulocytes % 1.100 H Neutrophils % 70.8 Lymphocytes % 22.4 Monocytes % 4.4 Eosinophils % 1.1 Basophils % 0.2 Nucleated Red Blood Cells % 0.0 Immature Granulocytes # 0.050 H Neutrophils # 3.4 Lymphocytes # 1.1 Monocytes # 0.2 L Eosinophils # 0.1 Basophils # 0.0 Nucleated Red Blood Cells # 0.0 Sodium Level 140 Potassium Level 4.6 Chloride Level 105 Carbon Dioxide Level 29 Anion Gap 6 Blood Urea Nitrogen 27 H Creatinine 0.92 Est Glomerular Filtrat Rate mL/min Glucose Level 127 Calcium Level 8.4 Consultation Date/Type/Reason Admit Date/Time Oct 27, 2018 at 08:14 Initial Consult Date 10/28/18 Requesting Provider: JAYLEN LUGO MD 24 HR Interval Summary Free Text/Dictation NO acute events - encephalopathic now. Per nurse: no fevers, no CP, + SO B - HR controlled Exam/Review of Systems Vital Signs Vitals Vital Signs Date Temp Pulse Resp B/P (MAP) Pulse Ox O2 O2 Flow FiO2 Time Delivery Rate 11/16/18 82 16 98 11:50 11/16/18 97.6 122/60 Mechanical 11:46 (80) Ventilator Trach Collar 11/16/18 30 11:06 Intake and Output 11/15/18 11/15/18 11/16/18 1515:00 23:00 07:00 IntakeIntake Total 1000 ml 1110 ml OutputOutput Total 600 ml 900 ml BalanceBalance 400 ml 210 ml Exam General: WN/WD/NAD, AOx 0 HEENT: Unicetric/atraumatic/EOMI (does not follow commands) NECK: trach Lymph: no lymphadenopathy HEART: regular with no S3, II/ systolic murmur at apex LUNGS: Coarse sounds ABD: soft, NT, ND, +BS : Intact Neuro: non focal SKIN: chronic changes EXT: trace edema Medications Medications Current Medications Acetaminophen (Tylenol Supp) 650 mg Q6H PRN [place] FEVER GREATER THAN 100.6 Last administered on 10/28/18 03:07; Admin Dose 650 MG; Start 10/28/18 at 02:30 Hydralazine HCl (Apresoline) 10 mg Q4H PRN IV SBP>170; Start 10/28/18 at 11:00 Mupirocin (Bactroban) 1 applic BID TOP Last administered on 11/16/18 08:46; Admin Dose 1 APPLIC; Start 10/28/18 at 21:00 Levalbuterol (Xopenex Neb) 1.25 mg Q6H RESP THERAPY HHN Last administered on 11/16/18 08:06; Admin Dose 1.25 MG; Start 10/29/18 at 08:00 Budesonide (Pulmicort (Neb)) 0.5 mg BID RESP THERAPY HHN Last administered on 11/16/18 08:06; Admin Dose 0.5 MG; Start 10/29/18 at 09:00 Ipratropium [place] (Atrovent 0.02% (Neb)) 0.5 mg Q6H RESP THERAPY HHN Last administered on 11/16/18 08:05; Admin Dose 0.5 MG; Start 10/29/18 at 08:00 Lansoprazole (Prevacid) 30 mg DAILY@06 GTB Last administered on 11/16/18 06:52; Admin Dose 30 MG; Start 10/31/18 at 06:00 Sodium Phosphate (Neutra-Phos) 250 mg BID PO Last administered on 11/16/18 08:46; Admin Dose 250 MG; Start 11/01/18 at 09:00 Apixaban (Eliquis) 2.5 mg BID PO Last administered on 11/16/18 08:46; Admin Dose 2.5 MG; Start 11/02/18 at 09:00 Morphine Sulfate (morphine) 15 mg Q4H PRN PO SEVERE PAIN LEVEL 7-10; Start 11/04/18 at 14:30 Lorazepam (Ativan) 1 mg Q6H PRN IV SEIZURES; Start 11/04/18 at 15:00 Lorazepam (Ativan) 1 mg Q6H PRN PO ANXIETY Last administered on 11/15/18 06:53; Admin Dose 1 MG; Start 11/04/18 at 15:00 Docusate Sodium (Colace Liquid Cup) 100 mg BID NGT Last administered on 11/15/18 21:07; Admin Dose 100 MG; Start 11/04/18 at 21:00 Bisacodyl (Dulcolax Supp) 10 mg DAILY PRN [place] CONSTIPATION Last administered on 11/05/18at 12:21; Admin Dose 10 MG; Start 11/05/18 at 11:30 IV Flush (NS 10 ml) 10 ml PRN PRN IV IV PROTOCOL; Start 11/07/18 at 15:00 Levetiracetam (Keppra Liquid) 500 mg BID GTB Last administered on 11/16/18 08:46; Admin Dose 500 MG; Start 11/08/18 at 21:00 Ondansetron HCl (Zofran Inj) 4 mg Q6H PRN IV NAUSEA AND/OR VOMITING; Start 11/15/18 at 08:00 Acetaminophen (Tylenol Liquid) 650 mg Q4H PRN NGT MILD PAIN(1-3)OR ELEVATED TEMP Last administered on 11/15/18 08:03; Admin Dose 650 MG; Start 11/15/18 at 08:00 Diltiazem HCl 125 ml @ 5 mls/hr TITRATE IV Last administered on 11/15/18 09:17; Admin Dose 5 MLS/HR; Start 11/15/18 at 10:00; Status Hold Cefepime HCl 50 ml @ 100 mls/hr Q12 IVPB Last administered on 11/16/18at 08:45; Admin Dose 100 MLS/HR; Start 11/15/18 at 10:30 Levofloxacin/ Dextrose 150 ml @ 100 mls/hr Q24H IVPB Last administered on 11/16/18at 11:22; Admin Dose 100 MLS/HR; Start 11/15/18 at 10:30 Vancomycin HCl (Vanco Iv Per Pharmacy) VANCOMYCIN PER PHARMACY PER PROTOCOL XX ; Start 11/15/18 at 14:00 Vancomycin HCl 1.25 gm/Sodium Chloride 250 ml @ 83.333 mls/ hr Q48H IVPB ; Start 11/17/18 at 15:00 Metoprolol Tartrate (Lopressor) 50 mg BID PO Last administered on 11/16/18at 08:46; Admin Dose 50 MG; Start 11/15/18 at 21:00 Diltiazem HCl (Cardizem Iv) 5 mg Q4 PRN IV HR>110 Hold SBP<100; Start 11/15/18 at 18:30 KINGSTON EHARD MD Nov 16, 2018 12:45
--- NOTE | 2018-11-16 16:11 | PN ---
Date/Time of Note Date/Time of Note DATE: 11/16/18 TIME: 16:10 Assessment/Plan VTE [place] [facility] [place]: 8 [place] [facility] [place] No SCD contraindicated: other Pharmacological prophylaxis: other Pharm contraindication: other Lines/Catheters [facility] Type (from [facility] PICC Line Central line still needed: Yes Urinary Cath still in place: Yes Reason Cath still needed: urinary retention Assessment/Plan Assessment/Plan -Acute encephalopathy secondary to CVA. Dr. Meng is following in neurology consultation. -Seizure disorder/status epilepticus. Continue Keppra and Ativan as needed. -Status post healthcare associated pneumonia and urinary tract infection. -MRSA nares colonization -Atrial fibrillation, continue Eliquis -Diastolic congestive heart failure. Dr. Hernandez is following in cardiology consultation. -Bilateral superficial venous thrombus within the cephalic veins. -Pulmonary fibrosis, continue Pulmicort. Dr. Davenport is following in pulmonology consultation. -Chronic tracheostomy -COPD Further recommendations based on clinical course. Plan of care discussed with Dr. Phillips. Result Diagram: 11/16/18 0455 11/16/18 0455 Results 24hrs Laboratory Tests Test 11/16/18 04:55 White Blood Count 4.7 L Red Blood Count 2.49 L Hemoglobin 7.7 L Hematocrit 25.8 L Mean Corpuscular Volume 103.6 H Mean Corpuscular Hemoglobin 30.9 Mean Corpuscular Hemoglobin Concent 29.8 L Red Cell Distribution Width 15.9 H Platelet Count 229 Mean Platelet Volume 9.7 Immature Granulocytes % 1.100 H Neutrophils % 70.8 Lymphocytes % 22.4 Monocytes % 4.4 Eosinophils % 1.1 Basophils % 0.2 Nucleated Red Blood Cells % 0.0 Immature Granulocytes # 0.050 H Neutrophils # 3.4 Lymphocytes # 1.1 Monocytes # 0.2 L Eosinophils # 0.1 Basophils # 0.0 Nucleated Red Blood Cells # 0.0 Sodium Level 140 Potassium Level 4.6 Chloride Level 105 Carbon Dioxide Level 29 Anion Gap 6 Blood Urea Nitrogen 27 H Creatinine 0.92 Est Glomerular Filtrat Rate mL/min Glucose Level 127 Calcium Level 8.4 Exam/Review of Systems Vital Signs Vitals Vital Signs Date Temp Pulse Resp B/P (MAP) Pulse Ox O2 O2 Flow FiO2 Time Delivery Rate 11/16/18 98.8 92 18 126/61 98 Mechanical 15:59 (82) Ventilator 11/16/18 30 11:06 Intake and Output 11/15/18 11/15/18 11/16/18 1515:00 23:00 07:00 IntakeIntake Total 1000 ml 1110 ml OutputOutput Total 600 ml 900 ml BalanceBalance 400 ml 210 ml Medications Medications Current Medications Acetaminophen (Tylenol Supp) 650 mg Q6H PRN [place] FEVER GREATER THAN 100.6 Last administered on 10/28/18 03:07; Admin Dose 650 MG; Start 10/28/18 at 02:30 Hydralazine HCl (Apresoline) 10 mg Q4H PRN IV SBP>170; Start 10/28/18 at 11:00 Mupirocin (Bactroban) 1 applic BID TOP Last administered on 11/16/18 08:46; Admin Dose 1 APPLIC; Start 10/28/18 at 21:00 Levalbuterol (Xopenex Neb) 1.25 mg Q6H RESP THERAPY HHN Last administered on 11/16/18 08:06; Admin Dose 1.25 MG; Start 10/29/18 at 08:00 Budesonide (Pulmicort (Neb)) 0.5 mg BID RESP THERAPY HHN Last administered on 11/16/18 08:06; Admin Dose 0.5 MG; Start 10/29/18 at 09:00 Ipratropium [place] (Atrovent 0.02% (Neb)) 0.5 mg Q6H RESP THERAPY HHN Last administered on 11/16/18 08:05; Admin Dose 0.5 MG; Start 10/29/18 at 08:00 Lansoprazole (Prevacid) 30 mg DAILY@06 GTB Last administered on 11/16/18 06:52; Admin Dose 30 MG; Start 10/31/18 at 06:00 Sodium Phosphate (Neutra-Phos) 250 mg BID PO Last administered on 11/16/18 08:46; Admin Dose 250 MG; Start 11/01/18 at 09:00 Apixaban (Eliquis) 2.5 mg BID PO Last administered on 11/16/18 08:46; Admin Dose 2.5 MG; Start 11/02/18 at 09:00 Morphine Sulfate (morphine) 15 mg Q4H PRN PO SEVERE PAIN LEVEL 7-10; Start 11/04/18 at 14:30 Lorazepam (Ativan) 1 mg Q6H PRN IV SEIZURES; Start 11/04/18 at 15:00 Lorazepam (Ativan) 1 mg Q6H PRN PO ANXIETY Last administered on 11/15/18 06:53; Admin Dose 1 MG; Start 11/04/18 at 15:00 Docusate Sodium (Colace Liquid Cup) 100 mg BID NGT Last administered on 11/15/18 21:07; Admin Dose 100 MG; Start 11/04/18 at 21:00 Bisacodyl (Dulcolax Supp) 10 mg DAILY PRN [place] CONSTIPATION Last administered on 11/05/18at 12:21; Admin Dose 10 MG; Start 11/05/18 at 11:30 IV Flush (NS 10 ml) 10 ml PRN PRN IV IV PROTOCOL; Start 11/07/18 at 15:00 Levetiracetam (Keppra Liquid) 500 mg BID GTB Last administered on 11/16/18 08:46; Admin Dose 500 MG; Start 11/08/18 at 21:00 Ondansetron HCl (Zofran Inj) 4 mg Q6H PRN IV NAUSEA AND/OR VOMITING; Start 11/15/18 at 08:00 Acetaminophen (Tylenol Liquid) 650 mg Q4H PRN NGT MILD PAIN(1-3)OR ELEVATED TEMP Last administered on 11/15/18 08:03; Admin Dose 650 MG; Start 11/15/18 at 08:00 Diltiazem HCl 125 ml @ 5 mls/hr TITRATE IV Last administered on 11/15/18 09:17; Admin Dose 5 MLS/HR; Start 11/15/18 at 10:00; Status Hold Cefepime HCl 50 ml @ 100 mls/hr Q12 IVPB Last administered on 11/16/18 08:45; Admin Dose 100 MLS/HR; Start 11/15/18 at 10:30 Levofloxacin/ Dextrose 150 ml @ 100 mls/hr Q24H IVPB Last administered on 11/16/18 11:22; Admin Dose 100 MLS/HR; Start 11/15/18 at 10:30 Vancomycin HCl (Vanco Iv Per Pharmacy) VANCOMYCIN PER PHARMACY PER PROTOCOL XX ; Start 11/15/18 at 14:00 Vancomycin HCl 1.25 gm/Sodium Chloride 250 ml @ 83.333 mls/ hr Q48H IVPB ; Start 11/17/18 at 15:00 Metoprolol Tartrate (Lopressor) 50 mg BID PO Last administered on 11/16/18at 08:46; Admin Dose 50 MG; Start 11/15/18 at 21:00 Diltiazem HCl (Cardizem Iv) 5 mg Q4 PRN IV HR>110 Hold SBP<100; Start 11/15/18 at 18:30 FRANCESCO SIU Nov 16, 2018 16:11
--- NOTE | 2018-11-16 19:36 | CONS ---
Date/Time of Note Date/Time of Note DATE: 11/16/18 TIME: 19:35 Assessment/Plan Assessment/Plan Hospital Course 1315 Subjective: All noted, no fevers over night, looks comfortable Antimicrobials: Vancomycin, cefepime, levofloxacin Indwelling: Tracheostomy, NG tube, Damon catheter, peripheral IV Physical examination: Chronically ill-appearing elderly woman who is awake nonverbal noncommunicative and in no distress. Head atraumatic normocephalic sclera nonicteric. Neck is supple, tracheostomy present. Chest rise symmetrical, breath sounds diminished bases. Heart: S1-S2. Abdomen soft bowel sounds present. Extremities with trace edema. Assessment: 1. Fevers, possibly nosocomial sepsis ?aspirated 2. Acute encephalopathy secondary to CVA 3. Status post urinary tract infection 4. Seizure disorder/status epilepticus 5. Status post bacteremia, consistent with contaminant 6. MRSA nares colonization 7. Atrial fibrillation 8. Status post healthcare associated pneumonia 9. Bilateral superficial venous thrombus within the cephalic veins. Plan: Stable, started on broad-spectrum antibiotics, will f/u repeat cultures, neurology and pulmonary recommendations Result Diagram: 11/16/18 0455 11/16/18 0455 Results 24hrs Laboratory Tests Test 11/16/18 04:55 White Blood Count 4.7 L Red Blood Count 2.49 L Hemoglobin 7.7 L Hematocrit 25.8 L Mean Corpuscular Volume 103.6 H Mean Corpuscular Hemoglobin 30.9 Mean Corpuscular Hemoglobin Concent 29.8 L Red Cell Distribution Width 15.9 H Platelet Count 229 Mean Platelet Volume 9.7 Immature Granulocytes % 1.100 H Neutrophils % 70.8 Lymphocytes % 22.4 Monocytes % 4.4 Eosinophils % 1.1 Basophils % 0.2 Nucleated Red Blood Cells % 0.0 Immature Granulocytes # 0.050 H Neutrophils # 3.4 Lymphocytes # 1.1 Monocytes # 0.2 L Eosinophils # 0.1 Basophils # 0.0 Nucleated Red Blood Cells # 0.0 Sodium Level 140 Potassium Level 4.6 Chloride Level 105 Carbon Dioxide Level 29 Anion Gap 6 Blood Urea Nitrogen 27 H Creatinine 0.92 Est Glomerular Filtrat Rate mL/min Glucose Level 127 Calcium Level 8.4 Consultation Date/Type/Reason Admit Date/Time Oct 27, 2018 at 08:14 Initial Consult Date 10/28/18 Type of Consult ID Requesting Provider: JAYLEN LUGO MD Exam/Review of Systems Vital Signs Vitals Vital Signs Date Temp Pulse Resp B/P (MAP) Pulse Ox O2 O2 Flow FiO2 Time Delivery Rate 11/16/18 97.8 131 22 149/67 96 Mechanical 18:00 (94) Ventilator Trach Collar 11/16/18 30 11:06 Intake and Output 11/15/18 11/15/18 11/16/18 1515:00 23:00 07:00 IntakeIntake Total 1000 ml 1110 ml OutputOutput Total 600 ml 900 ml BalanceBalance 400 ml 210 ml Medications Medications Current Medications Acetaminophen (Tylenol Supp) 650 mg Q6H PRN [place] FEVER GREATER THAN 100.6 Last administered on 10/28/18 03:07; Admin Dose 650 MG; Start 10/28/18 at 02:30 Hydralazine HCl (Apresoline) 10 mg Q4H PRN IV SBP>170; Start 10/28/18 at 11:00 Mupirocin (Bactroban) 1 applic BID TOP Last administered on 11/16/18 08:46; Admin Dose 1 APPLIC; Start 10/28/18 at 21:00 Levalbuterol (Xopenex Neb) 1.25 mg Q6H RESP THERAPY HHN Last administered on 11/16/18 16:39; Admin Dose 1.25 MG; Start 10/29/18 at 08:00 Budesonide (Pulmicort (Neb)) 0.5 mg BID RESP THERAPY HHN Last administered on 11/16/18 08:06; Admin Dose 0.5 MG; Start 10/29/18 at 09:00 Ipratropium [place] (Atrovent 0.02% (Neb)) 0.5 mg Q6H RESP THERAPY HHN Last administered on 11/16/18 16:33; Admin Dose 0.5 MG; Start 10/29/18 at 08:00 Lansoprazole (Prevacid) 30 mg DAILY@06 GTB Last administered on 11/16/18 06:52; Admin Dose 30 MG; Start 10/31/18 at 06:00 Sodium Phosphate (Neutra-Phos) 250 mg BID PO Last administered on 11/16/18 08:46; Admin Dose 250 MG; Start 11/01/18 at 09:00 Apixaban (Eliquis) 2.5 mg BID PO Last administered on 11/16/18 08:46; Admin Dose 2.5 MG; Start 11/02/18 at 09:00 Morphine Sulfate (morphine) 15 mg Q4H PRN PO SEVERE PAIN LEVEL 7-10; Start 11/04/18 at 14:30 Lorazepam (Ativan) 1 mg Q6H PRN IV SEIZURES; Start 11/04/18 at 15:00 Lorazepam (Ativan) 1 mg Q6H PRN PO ANXIETY Last administered on 11/15/18 06:53; Admin Dose 1 MG; Start 11/04/18 at 15:00 Docusate Sodium (Colace Liquid Cup) 100 mg BID NGT Last administered on 11/15/18 21:07; Admin Dose 100 MG; Start 11/04/18 at 21:00 Bisacodyl (Dulcolax Supp) 10 mg DAILY PRN [place] CONSTIPATION Last administered on 11/05/18at 12:21; Admin Dose 10 MG; Start 11/05/18 at 11:30 IV Flush (NS 10 ml) 10 ml PRN PRN IV IV PROTOCOL; Start 11/07/18 at 15:00 Levetiracetam (Keppra Liquid) 500 mg BID GTB Last administered on 11/16/18 08:46; Admin Dose 500 MG; Start 11/08/18 at 21:00 Ondansetron HCl (Zofran Inj) 4 mg Q6H PRN IV NAUSEA AND/OR VOMITING; Start 11/15/18 at 08:00 Acetaminophen (Tylenol Liquid) 650 mg Q4H PRN NGT MILD PAIN(1-3)OR ELEVATED TEMP Last administered on 11/15/18 08:03; Admin Dose 650 MG; Start 11/15/18 at 08:00 Diltiazem HCl 125 ml @ 5 mls/hr TITRATE IV Last administered on 11/15/18 09:17; Admin Dose 5 MLS/HR; Start 11/15/18 at 10:00; Status Hold Cefepime HCl 50 ml @ 100 mls/hr Q12 IVPB Last administered on 11/16/18 08:45; Admin Dose 100 MLS/HR; Start 11/15/18 at 10:30 Levofloxacin/ Dextrose 150 ml @ 100 mls/hr Q24H IVPB Last administered on 1/5/19at 11:22; Admin Dose 100 MLS/HR; Start 11/15/18 at 10:30 Vancomycin HCl (Vanco Iv Per Pharmacy) VANCOMYCIN PER PHARMACY PER PROTOCOL XX ; Start 11/15/18 at 14:00 Vancomycin HCl 1.25 gm/Sodium Chloride 250 ml @ 83.333 mls/ hr Q48H IVPB ; Start 11/17/18 at 15:00 Metoprolol Tartrate (Lopressor) 50 mg BID PO Last administered on 11/16/18at 08:46; Admin Dose 50 MG; Start 11/15/18 at 21:00 Diltiazem HCl (Cardizem Iv) 5 mg Q4 PRN IV HR>110 Hold SBP<100; Start 11/15/18 at 18:30 Collagenase (Santyl) 1 applic BID TOP ; Start 11/16/18 at 21:00 DEBO UMANA NP Nov 16, 2018 19:36
[2018-11-16] MEDS: COLLAGENASE 5 GM (UD JAR) TOP SCH (21:23)
[2018-11-17] VITALS (27 sets, daily range): BP systolic 116–162; BP diastolic 55–82; PULSE 70–159; RESP 16–26
[2018-11-17] MEDS: LEVALBUTEROL (NEB) 1.25 MG/0.5 ML AMP HHN SCH ×4 (01:28→20:01)
[2018-11-17] MEDS: IPRATROPIUM (NEB) 0.5 MG/2.5 ML AMP HHN SCH ×4 (01:28→20:01)
[2018-11-17] MEDS: LANSOPRAZOLE 30 MG CAP GTB SCH (05:38)
[2018-11-17] MEDS: BUDESONIDE (NEB) 0.5MG/2ML AMP HHN SCH ×2 (08:23→20:01)
[2018-11-17] MEDS: CEFEPIME 2GM/50 ML (PMX) 50 ML IVPB SCH ×2 (09:08→21:48)
[2018-11-17] MEDS: APIXABAN 5 MG TABLET PO SCH ×2 (09:09→21:48)
[2018-11-17] MEDS: METOPROLOL 50 MG TAB PO SCH ×2 (09:09→21:49)
[2018-11-17] MEDS: LEVETIRACETAM (100 MG/ML) 5ML CUP GTB SCH ×2 (09:09→21:48)
[2018-11-17] MEDS: DOCUSATE SODIUM 10 MG/ML (10ML CUP) NGT SCH ×2 (09:09→21:48)
[2018-11-17] MEDS: BALSAM PERU/CASTOR OIL 60 GM TUBE TOP SCH (09:10)
[2018-11-17] MEDS: NEUTRA-PHOS 250 MG PACKET PO SCH ×2 (09:10→21:49)
[2018-11-17] MEDS: COLLAGENASE 5 GM (UD JAR) TOP SCH ×2 (09:10→21:49)
[2018-11-17] MEDS: MUPIROCIN 2% 22 GM OINT TOP SCH ×2 (09:11→21:53)
[2018-11-17] MEDS: LEVOFLOXACIN 750MG/D5W (PMX) 150 ML IVPB SCH (10:27)
--- NOTE | 2018-11-17 10:52 | CONS ---
Date/Time of Note Date/Time of Note DATE: 11/17/18 TIME: 10:51 Consult Date/Type/Reason Admit Date/Time Oct 27, 2018 at 08:14 Initial Consult Date 10/28/18 Type of Consultation: nephrology Requesting Provider: JAYLEN LUGO MD Objective Vital Signs Date Temp Pulse Resp B/P (MAP) Pulse Ox O2 O2 Flow FiO2 Time Delivery Rate 11/17/18 85 16 136/65 99 Mechanical 10:24 (88) Ventilator 11/17/18 30 09:33 11/17/18 97.6 08:00 Intake and Output 11/16/18 11/16/18 11/17/18 1515:00 23:00 07:00 IntakeIntake Total 200 ml 1110 ml 1060 ml OutputOutput Total 800 ml 2550 ml BalanceBalance 200 ml 310 ml -1490 ml Results/Medications Result Diagram: 11/17/18 0450 11/17/18 0450 Results 24 hrs Laboratory Tests Test 11/17/18 04:50 White Blood Count 4.3 L Red Blood Count 2.39 L Hemoglobin 7.4 L Hematocrit 24.6 L Mean Corpuscular Volume 102.9 H Mean Corpuscular Hemoglobin 31.0 Mean Corpuscular Hemoglobin Concent 30.1 L Red Cell Distribution Width 16.0 H Platelet Count 230 Mean Platelet Volume 9.9 Immature Granulocytes % 1.900 H Neutrophils % 66.9 Lymphocytes % 23.3 Monocytes % 5.6 Eosinophils % 2.3 Basophils % 0.0 Nucleated Red Blood Cells % 0.0 Immature Granulocytes # 0.080 H Neutrophils # 2.9 Lymphocytes # 1.0 Monocytes # 0.2 L Eosinophils # 0.1 Basophils # 0.0 Nucleated Red Blood Cells # 0.0 Sodium Level 139 Potassium Level 4.4 Chloride Level 104 Carbon Dioxide Level 29 Anion Gap 6 Blood Urea Nitrogen 26 H Creatinine 0.90 Est Glomerular Filtrat Rate mL/min Glucose Level 104 Calcium Level 8.6 Medications Current Medications Acetaminophen (Tylenol Supp) 650 mg Q6H PRN [place] FEVER GREATER THAN 100.6 Last administered on 10/28/18at 03:07; Admin Dose 650 MG; Start 10/28/18 at 02:30 Hydralazine HCl (Apresoline) 10 mg Q4H PRN IV SBP>170; Start 10/28/18 at 11:00 Mupirocin (Bactroban) 1 applic BID TOP Last administered on 11/17/18 09:11; Admin Dose 1 APPLIC; Start 10/28/18 at 21:00 Levalbuterol (Xopenex Neb) 1.25 mg Q6H RESP THERAPY HHN Last administered on 11/17/18 08:23; Admin Dose 1.25 MG; Start 10/29/18 at 08:00 Budesonide (Pulmicort (Neb)) 0.5 mg BID RESP THERAPY HHN Last administered on 11/17/18 08:23; Admin Dose 0.5 MG; Start 10/29/18 at 09:00 Ipratropium [place] (Atrovent 0.02% (Neb)) 0.5 mg Q6H RESP THERAPY HHN Last administered on 11/17/18 08:23; Admin Dose 0.5 MG; Start 10/29/18 at 08:00 Lansoprazole (Prevacid) 30 mg DAILY@06 GTB Last administered on 11/17/18 05:38; Admin Dose 30 MG; Start 10/31/18 at 06:00 Sodium Phosphate (Neutra-Phos) 250 mg BID PO Last administered on 11/17/18 09:10; Admin Dose 250 MG; Start 11/01/18 at 09:00 Apixaban (Eliquis) 2.5 mg BID PO Last administered on 11/17/18 09:09; Admin D ose 2.5 MG; Start 11/02/18 at 09:00 Morphine Sulfate (morphine) 15 mg Q4H PRN PO SEVERE PAIN LEVEL 7-10; Start 11/04/18 at 14:30 Lorazepam (Ativan) 1 mg Q6H PRN IV SEIZURES; Start 11/04/18 at 15:00 Lorazepam (Ativan) 1 mg Q6H PRN PO ANXIETY Last administered on 11/15/18 06:53; Admin Dose 1 MG; Start 11/04/18 at 15:00 Docusate Sodium (Colace Liquid Cup) 100 mg BID NGT Last administered on 09:09; Admin Dose 100 MG; Start 11/04/18 at 21:00 Bisacodyl (Dulcolax Supp) 10 mg DAILY PRN [place] CONSTIPATION Last administered on 12/25/18at 12:21; Admin Dose 10 MG; Start 11/05/18 at 11:30 IV Flush (NS 10 ml) 10 ml PRN PRN IV IV PROTOCOL; Start 11/07/18 at 15:00 Levetiracetam (Keppra Liquid) 500 mg BID GTB Last administered on 11/17/18 09:09; Admin Dose 500 MG; Start 11/08/18 at 21:00 Ondansetron HCl (Zofran Inj) 4 mg Q6H PRN IV NAUSEA AND/OR VOMITING; Start 11/15/18 at 08:00 Acetaminophen (Tylenol Liquid) 650 mg Q4H PRN NGT MILD PAIN(1-3)OR ELEVATED TEMP Last administered on 11/15/18 08:03; Admin Dose 650 MG; Start 11/15/18 at 08:00 Diltiazem HCl 125 ml @ 5 mls/hr TITRATE IV Last administered on 11/15/18 09:17; Admin Dose 5 MLS/HR; Start 11/15/18 at 10:00; Status Hold Cefepime HCl 50 ml @ 100 mls/hr Q12 IVPB Last administered on 11/17/18 09:08; Admin Dose 100 MLS/HR; Start 11/15/18 at 10:30 Levofloxacin/ Dextrose 150 ml @ 100 mls/hr Q24H IVPB Last administered on 10:27; Admin Dose 100 MLS/HR; Start 11/15/18 at 10:30 Vancomycin HCl (Vanco Iv Per Pharmacy) VANCOMYCIN PER PHARMACY PER PROTOCOL XX ; Start 11/15/18 at 14:00 Vancomycin HCl 1.25 gm/Sodium Chloride 250 ml @ 83.333 mls/ hr Q48H IVPB ; Start 11/17/18 at 15:00 Metoprolol Tartrate (Lopressor) 50 mg BID PO Last administered on 11/17/18 09:09; Admin Dose 50 MG; Start 11/15/18 at 21:00 Diltiazem HCl (Cardizem Iv) 5 mg Q4 PRN IV HR>110 Hold SBP<100; Start 11/15/18 at 18:30 Collagenase (Santyl) 1 applic BID TOP Last administered on 11/17/18 09:10; Admin Dose 1 APPLIC; Start 1/5/19 at 21:00 Assessment/Plan Chief Complaint/Hosp Course The patient is stable. No events overnight. No fevers, chills, nausea, vomiting. good uop PE: HEENT: Head is normocephalic. NECK: Supple. HEART: Regular rate. LUNGS: Show diminished breath sounds at the base. ABDOMEN: Soft, nontender to palpation without rebound or guarding. EXTREMITIES: Negative for clubbing, cyanosis, no edema. DERMATOLOGIC: No rashes. MUSCULOSKELETAL: No joint effusion. NEUROLOGIC: No change in exam. MEDICATIONS: Reviewed. ASSESSMENT AND PLAN: 1. Nonoliguric acute kidney injury. The patient's renal function has improved after holding diuretics. At this point, continue current plans, supportive care, renally dose all meds. 2. Hyponatremia, improved. Continue free water flushes. 3. Acute diastolic heart failure. The patient appears near euvolemic status. Continue to monitor, give intermittent diuretic therapy as needed. 4. Anemia. Monitor hemoglobin and hematocrit levels. 5. Mineral bone disorder, monitor calcium and phosphorus levels. 6. Atrial fibrillation. Continue medical management. 7. Ventilatory-dependent respiratory failure. Vent settings and ABG was reviewed. Continue to monitor. 8. Dysphagia. Continue tube feeding. 9. Seizure disorder. Continue current treatment plan. 10. Sepsis. The patient has completed antibiotic course. 11. Acute encephalopathy. Continue to monitor. 12. History of cerebrovascular accident. Continue current treatment plan. PHILLIP HENDERSON MD Nov 17, 2018 10:52
--- NOTE | 2018-11-17 13:38 | CONS ---
Date/Time of Note Date/Time of Note DATE: 11/17/18 TIME: 13:35 Assessment/Plan Assessment/Plan Result Diagram: 11/17/18 0450 11/17/18 0450 Results 24hrs Laboratory Tests Test 11/17/18 04:50 White Blood Count 4.3 L Red Blood Count 2.39 L Hemoglobin 7.4 L Hematocrit 24.6 L Mean Corpuscular Volume 102.9 H Mean Corpuscular Hemoglobin 31.0 Mean Corpuscular Hemoglobin Concent 30.1 L Red Cell Distribution Width 16.0 H Platelet Count 230 Mean Platelet Volume 9.9 Immature Granulocytes % 1.900 H Neutrophils % 66.9 Lymphocytes % 23.3 Monocytes % 5.6 Eosinophils % 2.3 Basophils % 0.0 Nucleated Red Blood Cells % 0.0 Immature Granulocytes # 0.080 H Neutrophils # 2.9 Lymphocytes # 1.0 Monocytes # 0.2 L Eosinophils # 0.1 Basophils # 0.0 Nucleated Red Blood Cells # 0.0 Sodium Level 139 Potassium Level 4.4 Chloride Level 104 Carbon Dioxide Level 29 Anion Gap 6 Blood Urea Nitrogen 26 H Creatinine 0.90 Est Glomerular Filtrat Rate mL/min Glucose Level 104 Calcium Level 8.6 Consultation Date/Type/Reason Admit Date/Time Oct 27, 2018 at 08:14 Initial Consult Date SUBJECTIVE: Patient is sleepy, trach to vent. Looks comfortable, afebrile. VS: stable T: 98.2 LABS: Reviewed. WBC-4.3 Microbiology: Blood culture on admission grew coag negative staph species with repeat blood cultures negative, urine culture growing Klebsiella ESBL REPEAT BLOOD Cx 11/15/18: BLOOD CULTURE Preliminary BCULT GRAM BOTTLE 1 Gram positive cocci in clusters 1 of 2 bottles . seen on gram stain of the broth Organism 1 GRAM POSITIVE COCCI IN CLUSTER Antimicrobials: Vancomycin, cefepime, levofloxacin Indwelling: Tracheostomy, NG tube, Damon catheter, peripheral IV Physical examination: GEN: Chronically ill-appearing elderly woman who is awake nonverbal noncommunicative and in no distress. Head atraumatic normocephalic sclera nonicteric. Neck is supple, tracheostomy present. Chest rise symmetrical, breath sounds diminished bases. Heart: S1-S2. Abdomen soft bowel sounds present. Extremities with trace edema. Assessment: 1. Fevers, possibly nosocomial sepsis ?aspirated 2. Acute encephalopathy secondary to CVA 3. Status post urinary tract infection 4. Seizure disorder/status epilepticus 5. Status post bacteremia, consistent with contaminant 6. MRSA nares colonization 7. Atrial fibrillation 8. Status post healthcare associated pneumonia 9. Bilateral superficial venous thrombus within the cephalic veins. Plan: Remains unchanged and hemodynamically stable. Continue current antibiotics.Pending final blood culture. Neurology and pulmonary recommendations Requesting Provider: JAYLEN LUGO MD Exam/Review of Systems Vital Signs Vitals Vital Signs Date Temp Pulse Resp B/P (MAP) Pulse Ox O2 O2 Flow FiO2 Time Delivery Rate 11/17/18 97.8 76 22 138/68 99 Mechanical 12:06 (91) Ventilator Trach Collar 11/17/18 30 11:45 Intake and Output 11/16/18 11/16/18 11/17/18 1515:00 23:00 07:00 IntakeIntake Total 200 ml 1110 ml 1060 ml OutputOutput Total 800 ml 2550 ml BalanceBalance 200 ml 310 ml -1490 ml Medications Medications Current Medications Acetaminophen (Tylenol Supp) 650 mg Q6H PRN ME FEVER GREATER THAN 100.6 Last administered on 10/28/18at 03:07; Admin Dose 650 MG; Start 10/28/18 at 02:30 Hydralazine HCl (Apresoline) 10 mg Q4H PRN IV SBP>170; Start 10/28/18 at 11:00 Mupirocin (Bactroban) 1 applic BID TOP Last administered on 11/17/18 09:11; Admin Dose 1 APPLIC; Start 10/28/18 at 21:00 Levalbuterol (Xopenex Neb) 1.25 mg Q6H RESP THERAPY HHN Last administered on 11/17/18 08:23; Admin Dose 1.25 MG; Start 10/29/18 at 08:00 Budesonide (Pulmicort (Neb)) 0.5 mg BID RESP THERAPY HHN Last administered on 11/17/18 08:23; Admin Dose 0.5 MG; Start 10/29/18 at 09:00 Ipratropium [place] (Atrovent 0.02% (Neb)) 0.5 mg Q6H RESP THERAPY HHN Last administered on 11/17/18 08:23; Admin Dose 0.5 MG; Start 10/29/18 at 08:00 Lansoprazole (Prevacid) 30 mg DAILY@06 GTB Last administered on 11/17/18 05:38; Admin Dose 30 MG; Start 10/31/18 at 06:00 Sodium Phosphate (Neutra-Phos) 250 mg BID PO Last administered on 11/17/18 09:10; Admin Dose 250 MG; Start 11/01/18 at 09:00 Apixaban (Eliquis) 2.5 mg BID PO Last administered on 11/17/18 09:09; Admin Dose 2.5 MG; Start 11/02/18 at 09:00 Morphine Sulfate (morphine) 15 mg Q4H PRN PO SEVERE PAIN LEVEL 7-10; Start 11/04/18 at 14:30 Lorazepam (Ativan) 1 mg Q6H PRN IV SEIZURES; Start 11/04/18 at 15:00 Lorazepam (Ativan) 1 mg Q6H PRN PO ANXIETY Last administered on 11/15/18 06:53; Admin Dose 1 MG; Start 11/04/18 at 15:00 Docusate Sodium (Colace Liquid Cup) 100 mg BID NGT Last administered on 11/17/18 09:09; Admin Dose 100 MG; Start 11/04/18 at 21:00 Bisacodyl (Dulcolax Supp) 10 mg DAILY PRN [place] CONSTIPATION Last administered on 11/05/18at 12:21; Admin Dose 10 MG; Start 11/05/18 at 11:30 IV Flush (NS 10 ml) 10 ml PRN PRN IV IV PROTOCOL; Start 11/07/18 at 15:00 Levetiracetam (Keppra Liquid) 500 mg BID GTB Last administered on 11/17/18 09:09; Admin Dose 500 MG; Start 11/08/18 at 21:00 Ondansetron HCl (Zofran Inj) 4 mg Q6H PRN IV NAUSEA AND/OR VOMITING; Start 11/15/18 at 08:00 Acetaminophen (Tylenol Liquid) 650 mg Q4H PRN NGT MILD PAIN(1-3)OR ELEVATED TEMP Last administered on 11/15/18 08:03; Admin Dose 650 MG; Start 11/15/18 at 08:00 Diltiazem HCl 125 ml @ 5 mls/hr TITRATE IV Last administered on 1/4/19at 09:17; Admin Dose 5 MLS/HR; Start 11/15/18 at 10:00; Status Hold Cefepime HCl 50 ml @ 100 mls/hr Q12 IVPB Last administered on 11/17/18at 09:08; Admin Dose 100 MLS/HR; Start 11/15/18 at 10:30 Levofloxacin/ Dextrose 150 ml @ 100 mls/hr Q24H IVPB Last administered on 11/17/18at 10:27; Admin Dose 100 MLS/HR; Start 11/15/18 at 10:30 Vancomycin HCl (Vanco Iv Per Pharmacy) VANCOMYCIN PER PHARMACY PER PROTOCOL XX ; Start 11/15/18 at 14:00 Vancomycin HCl 1.25 gm/Sodium Chloride 250 ml @ 83.333 mls/ hr Q48H IVPB ; Start 11/17/18 at 15:00 Metoprolol Tartrate (Lopressor) 50 mg BID PO Last administered on 11/17/18at 09:09; Admin Dose 50 MG; Start 11/15/18 at 21:00 Diltiazem HCl (Cardizem Iv) 5 mg Q4 PRN IV HR>110 Hold SBP<100; Start 11/15/18 at 18:30 Collagenase (Santyl) 1 applic BID TOP Last administered on 11/17/18at 09:10; Admin Dose 1 APPLIC; Start 11/16/18 at 21:00 MADONNA ODELL Nov 17, 2018 13:38
--- NOTE | 2018-11-17 13:42 | CONS ---
Date/Time of Note Date/Time of Note DATE: 11/17/18 TIME: 13:40 Assessment/Plan Assessment/Plan Assessment/Plan 1. Atrial fibrillation with a rapid ventricular response.-now in SR and remains. Had SVT ths am in the setting of fevers, intially regular at 170-180. Improved after starting silt drip. ? AVNRT/AT-now SR - NOW RATE CONTROLLED - stable overall. 2. Abnormal electrocardiogram with ST depressions during atrial fibrillation with rapid ventricular response- no CP noed - treated. 3. Altered mental state/encephalopathy - might be new baseline 4. Possible seizure-like activity - no new episodes noted. 5. Congestive heart failure, diastolic, chronic- con't to keep euvolemic. 6. Hypertension- well controlled - treated, 7. Urinary tract infection- on anti-Bx, no fevers now - on meds. 8. Renal failure - avoid nephrotoxic meds. Result Diagram: 11/17/18 0450 11/17/18 0450 Results 24hrs Laboratory Tests Test 11/17/18 04:50 White Blood Count 4.3 L Red Blood Count 2.39 L Hemoglobin 7.4 L Hematocrit 24.6 L Mean Corpuscular Volume 102.9 H Mean Corpuscular Hemoglobin 31.0 Mean Corpuscular Hemoglobin Concent 30.1 L Red Cell Distribution Width 16.0 H Platelet Count 230 Mean Platelet Volume 9.9 Immature Granulocytes % 1.900 H Neutrophils % 66.9 Lymphocytes % 23.3 Monocytes % 5.6 Eosinophils % 2.3 Basophils % 0.0 Nucleated Red Blood Cells % 0.0 Immature Granulocytes # 0.080 H Neutrophils # 2.9 Lymphocytes # 1.0 Monocytes # 0.2 L Eosinophils # 0.1 Basophils # 0.0 Nucleated Red Blood Cells # 0.0 Sodium Level 139 Potassium Level 4.4 Chloride Level 104 Carbon Dioxide Level 29 Anion Gap 6 Blood Urea Nitrogen 26 H Creatinine 0.90 Est Glomerular Filtrat Rate mL/min Glucose Level 104 Calcium Level 8.6 Consultation Date/Type/Reason Admit Date/Time Oct 27, 2018 at 08:14 Initial Consult Date 10/28/18 Requesting Provider: JAYLEN LUGO MD 24 HR Interval Summary Free Text/Dictation NO acute events - encephalopathic. PEr nurse: no FEVERS. + SOB Exam/Review of Systems Vital Signs Vitals Vital Signs Date Temp Pulse Resp B/P (MAP) Pulse Ox O2 O2 Flow FiO2 Time Delivery Rate 11/17/18 97.8 76 22 138/68 99 Mechanical 12:06 (91) Ventilator Trach Collar 11/17/18 30 11:45 Intake and Output 11/16/18 11/16/18 11/17/18 1515:00 23:00 07:00 IntakeIntake Total 200 ml 1110 ml 1060 ml OutputOutput Total 800 ml 2550 ml BalanceBalance 200 ml 310 ml -1490 ml Exam General: WN/WD/NAD, AOx 0 enceph HEENT: Unicetric/atraumatic/EOMI (does not follow commands) NECK: trach Lymph: no lymphadenopathy HEART: irregular with no S3, II/ systolic murmur at apex LUNGS: Coarse sounds ABD: soft, NT, ND, +BS : Intact Neuro: non focal SKIN: chronic changes EXT: trace edema Medications Medications Current Medications Acetaminophen (Tylenol Supp) 650 mg Q6H PRN [place] FEVER GREATER THAN 100.6 Last administered on 10/28/18at 03:07; Admin Dose 650 MG; Start 10/28/18 at 02:30 Hydralazine HCl (Apresoline) 10 mg Q4H PRN IV SBP>170; Start 10/28/18 at 11:00 Mupirocin (Bactroban) 1 applic BID TOP Last administered on 11/17/18 09:11; Admin Dose 1 APPLIC; Start 10/28/18 at 21:00 Levalbuterol (Xopenex Neb) 1.25 mg Q6H RESP THERAPY HHN Last administered on 11/17/18 08:23; Admin Dose 1.25 MG; Start 10/29/18 at 08:00 Budesonide (Pulmicort (Neb)) 0.5 mg BID RESP THERAPY HHN Last administered on 11/17/18 08:23; Admin Dose 0.5 MG; Start 10/29/18 at 09:00 Ipratropium [place] (Atrovent 0.02% (Neb)) 0.5 mg Q6H RESP THERAPY HHN Last administered on 11/17/18 08:23; Admin Dose 0.5 MG; Start 10/29/18 at 08:00 Lansoprazole (Prevacid) 30 mg DAILY@06 GTB Last administered on 11/17/18 05:38; Admin Dose 30 MG; Start 10/31/18 at 06:00 Sodium Phosphate (Neutra-Phos) 250 mg BID PO Last administered on 11/17/18 09:10; Admin Dose 250 MG; Start 11/01/18 at 09:00 Apixaban (Eliquis) 2.5 mg BID PO Last administered on 11/17/18 09:09; Admin Dose 2.5 MG; Start 11/02/18 at 09:00 Morphine Sulfate (morphine) 15 mg Q4H PRN PO SEVERE PAIN LEVEL 7-10; Start 11/04/18 at 14:30 Lorazepam (Ativan) 1 mg Q6H PRN IV SEIZURES; Start 11/04/18 at 15:00 Lorazepam (Ativan) 1 mg Q6H PRN PO ANXIETY Last administered on 11/15/18 06:53; Admin Dose 1 MG; Start 11/04/18 at 15:00 Docusate Sodium (Colace Liquid Cup) 100 mg BID NGT Last administered on 09:09; Admin Dose 100 MG; Start 11/04/18 at 21:00 Bisacodyl (Dulcolax Supp) 10 mg DAILY PRN [place] CONSTIPATION Last administered on 11/05/18at 12:21; Admin Dose 10 MG; Start 11/05/18 at 11:30 IV Flush (NS 10 ml) 10 ml PRN PRN IV IV PROTOCOL; Start 11/07/18 at 15:00 Levetiracetam (Keppra Liquid) 500 mg BID GTB Last administered on 11/17/18 09:09; Admin Dose 500 MG; Start 11/08/18 at 21:00 Ondansetron HCl (Zofran Inj) 4 mg Q6H PRN IV NAUSEA AND/OR VOMITING; Start 11/15/18 at 08:00 Acetaminophen (Tylenol Liquid) 650 mg Q4H PRN NGT MILD PAIN(1-3)OR ELEVATED TEMP Last administered on 11/15/18 08:03; Admin Dose 650 MG; Start 11/15/18 at 08:00 Diltiazem HCl 125 ml @ 5 mls/hr TITRATE IV Last administered on 11/15/18 09:17; Admin Dose 5 MLS/HR; Start 11/15/18 at 10:00; Status Hold Cefepime HCl 50 ml @ 100 mls/hr Q12 IVPB Last administered on 11/17/18at 09:08; Admin Dose 100 MLS/HR; Start 11/15/18 at 10:30 Levofloxacin/ Dextrose 150 ml @ 100 mls/hr Q24H IVPB Last administered on 11/17/18at 10:27; Admin Dose 100 MLS/HR; Start 11/15/18 at 10:30 Vancomycin HCl (Vanco Iv Per Pharmacy) VANCOMYCIN PER PHARMACY PER PROTOCOL XX ; Start 11/15/18 at 14:00 Vancomycin HCl 1.25 gm/Sodium Chloride 250 ml @ 83.333 mls/ hr Q48H IVPB ; Start 11/17/18 at 15:00 Metoprolol Tartrate (Lopressor) 50 mg BID PO Last administered on 11/17/18at 09:09; Admin Dose 50 MG; Start 11/15/18 at 21:00 Diltiazem HCl (Cardizem Iv) 5 mg Q4 PRN IV HR>110 Hold SBP<100; Start 11/15/18 at 18:30 Collagenase (Santyl) 1 applic BID TOP Last administered on 11/17/18at 09:10; Admin Dose 1 APPLIC; Start 11/16/18 at 21:00 KINGSTON HEARD MD Nov 17, 2018 13:42
[2018-11-17] MEDS ORDERED: VANCOMYCIN 1.25 GM in SOD CHLORIDE 0.9% 250 ML IVPB SCH ×2 (15:00→16:00)
--- NOTE | 2018-11-17 15:28 | PN ---
Date/Time of Note Date/Time of Note DATE: 11/17/18 TIME: 15:27 Assessment/Plan VTE Prophylaxis Risk score (from [facility])>0 risk: 8 SCD applied (from [facility]): Yes SCD contraindicated: other Pharmacological prophylaxis: other Pharm contraindication: other Lines/Catheters IV C[facility]ter Type (from [facility]): PICC Line Central line still needed: Yes Urinary Cath still in place: Yes Reason Cath still needed: urinary retention Assessment/Plan Assessment/Plan -Acute encephalopathy secondary to CVA. Dr. Meng is following in neurology consultation. -Seizure disorder/status epilepticus. Continue Keppra and Ativan as needed. -Status post healthcare associated pneumonia and urinary tract infection. -MRSA nares colonization -Atrial fibrillation, continue Eliquis -Diastolic congestive heart failure. Dr. Hernandez is following in cardiology consultation. -Bilateral superficial venous thrombus within the cephalic veins. -Pulmonary fibrosis, continue Pulmicort. Dr. Davenport is following in pulmonology consultation. -Chronic tracheostomy -COPD Further recommendations based on clinical course. Plan of care discussed with Dr. Phillips. Result Diagram: 11/17/18 0450 11/17/18 0450 Results 24hrs Laboratory Tests Test 11/17/18 04:50 White Blood Count 4.3 L Red Blood Count 2.39 L Hemoglobin 7.4 L Hematocrit 24.6 L Mean Corpuscular Volume 102.9 H Mean Corpuscular Hemoglobin 31.0 Mean Corpuscular Hemoglobin Concent 30.1 L Red Cell Distribution Width 16.0 H Platelet Count 230 Mean Platelet Volume 9.9 Immature Granulocytes % 1.900 H Neutrophils % 66.9 Lymphocytes % 23.3 Monocytes % 5.6 Eosinophils % 2.3 Basophils % 0.0 Nucleated Red Blood Cells % 0.0 Immature Granulocytes # 0.080 H Neutrophils # 2.9 Lymphocytes # 1.0 Monocytes # 0.2 L Eosinophils # 0.1 Basophils # 0.0 Nucleated Red Blood Cells # 0.0 Sodium Level 139 Potassium Level 4.4 Chloride Level 104 Carbon Dioxide Level 29 Anion Gap 6 Blood Urea Nitrogen 26 H Creatinine 0.90 Est Glomerular Filtrat Rate mL/min Glucose Level 104 Calcium Level 8.6 Subjective 24 Hr Interval Summary Constitutional: requiring O2 Exam/Review of Systems Vital Signs Vitals Vital Signs Date Temp Pulse Resp B/P (MAP) Pulse Ox O2 O2 Flow FiO2 Time Delivery Rate 11/17/18 98.5 107 20 144/67 96 Mechanical 14:00 (92) Ventilator 11/17/18 30 11:45 Intake and Output 11/16/18 11/16/18 11/17/18 1515:00 23:00 07:00 IntakeIntake Total 200 ml 1110 ml 1060 ml OutputOutput Total 800 ml 2550 ml BalanceBalance 200 ml 310 ml -1490 ml Exam Constitutional: non-verbal Psych: nl mood/affect Medications Medications Current Medications Acetaminophen (Tylenol Supp) 650 mg Q6H PRN [place] FEVER GREATER THAN 100.6 Last administered on 10/28/18 03:07; Admin Dose 650 MG; Start 10/28/18 at 02:30 Hydralazine HCl (Apresoline) 10 mg Q4H PRN IV SBP>170; Start 10/28/18 at 11:00 Mupirocin (Bactroban) 1 applic BID TOP Last administered on 11/17/18 09:11; Admin Dose 1 APPLIC; Start 10/28/18 at 21:00 Levalbuterol (Xopenex Neb) 1.25 mg Q6H RESP THERAPY HHN Last administered on 11/17/18 14:22; Admin Dose 1.25 MG; Start 10/29/18 at 08:00 Budesonide (Pulmicort (Neb)) 0.5 mg BID RESP THERAPY HHN Last administered on 11/17/18 08:23; Admin Dose 0.5 MG; Start 10/29/18 at 09:00 Ipratropium [place] (Atrovent 0.02% (Neb)) 0.5 mg Q6H RESP THERAPY HHN Last administered on 11/17/18 14:22; Admin Dose 0.5 MG; Start 10/29/18 at 08:00 Lansoprazole (Prevacid) 30 mg DAILY@06 GTB Last administered on 11/17/18 05:38; Admin Dose 30 MG; Start 10/31/18 at 06:00 Sodium Phosphate (Neutra-Phos) 250 mg BID PO Last administered on 11/17/18 09:10; Admin Dose 250 MG; Start 11/01/18 at 09:00 Apixaban (Eliquis) 2.5 mg BID PO Last administered on 11/17/18 09:09; Admin Dose 2.5 MG; Start 11/02/18 at 09:00 Morphine Sulfate (morphine) 15 mg Q4H PRN PO SEVERE PAIN LEVEL 7-10; Start 11/04/18 at 14:30 Lorazepam (Ativan) 1 mg Q6H PRN IV SEIZURES; Start 11/04/18 at 15:00 Lorazepam (Ativan) 1 mg Q6H PRN PO ANXIETY Last administered on 11/15/18 06:53; Admin Dose 1 MG; Start 11/04/18 at 15:00 Docusate Sodium (Colace Liquid Cup) 100 mg BID NGT Last administered on 11/17/18 09:09; Admin Dose 100 MG; Start 11/04/18 at 21:00 Bisacodyl (Dulcolax Supp) 10 mg DAILY PRN [place] CONSTIPATION Last administered on 11/05/18at 12:21; Admin Dose 10 MG; Start 11/05/18 at 11:30 IV Flush (NS 10 ml) 10 ml PRN PRN IV IV PROTOCOL; Start 11/07/18 at 15:00 Levetiracetam (Keppra Liquid) 500 mg BID GTB Last administered on 11/17/18 09:09; Admin Dose 500 MG; Start 11/08/18 at 21:00 Ondansetron HCl (Zofran Inj) 4 mg Q6H PRN IV NAUSEA AND/OR VOMITING; Start 11/15/18 at 08:00 Acetaminophen (Tylenol Liquid) 650 mg Q4H PRN NGT MILD PAIN(1-3)OR ELEVATED TEMP Last administered on 11/15/18 08:03; Admin Dose 650 MG; Start 11/15/18 at 08:00 Diltiazem HCl 125 ml @ 5 mls/hr TITRATE IV Last administered on 11/15/18 09:17; Admin Dose 5 MLS/HR; Start 11/15/18 at 10:00; Status Hold Cefepime HCl 50 ml @ 100 mls/hr Q12 IVPB Last administered on 11/17/18 09:08; Admin Dose 100 MLS/HR; Start 11/15/18 at 10:30 Levofloxacin/ Dextrose 150 ml @ 100 mls/hr Q24H IVPB Last administered on 11/17/18 10:27; Admin Dose 100 MLS/HR; Start 11/15/18 at 10:30 Vancomycin HCl (Vanco Iv Per Pharmacy) VANCOMYCIN PER PHARMACY PER PROTOCOL XX ; Start 11/15/18 at 14:00 Metoprolol Tartrate (Lopressor) 50 mg BID PO Last administered on 11/17/18at 09:09; Admin Dose 50 MG; Start 11/15/18 at 21:00 Diltiazem HCl (Cardizem Iv) 5 mg Q4 PRN IV HR>110 Hold SBP<100; Start 11/15/18 at 18:30 Collagenase (Santyl) 1 applic BID TOP Last administered on 11/17/18at 09:10; Admin Dose 1 APPLIC; Start 11/16/18 at 21:00 Vancomycin HCl 1.25 gm/Sodium Chloride 250 ml @ 83.333 mls/ hr Q24H IVPB ; Start 11/17/18 at 16:00 FRANCESCO SIU Nov 17, 2018 15:28
--- NOTE | 2018-11-17 21:20 | RADRPT ---
Vent Rate: 173 bpm RR Interval: 0 msec MS Interval: 0 msec QRS Duration: 70 msec QT Interval: 242 msec QTC Interval: 410 msec P-R-T [place]: 0 - 78 - 0 degrees Atrial fibrillation with rapid ventricular response RSR apos; orattern in V1 suggests right ventricular conduction delay ST depression, consider subendocardial injury or digitalis effect Nonspecific T wave abnormality , probably digitalis effect Abnormal ECG Electronically Signed By: Duane Estrada [id number]
[2018-11-18] VITALS (27 sets, daily range): BP systolic 116–186; BP diastolic 58–82; PULSE 84–108; RESP 17–30
[2018-11-18] MEDS: LEVALBUTEROL (NEB) 1.25 MG/0.5 ML AMP HHN SCH ×4 (01:42→20:50)
[2018-11-18] MEDS: IPRATROPIUM (NEB) 0.5 MG/2.5 ML AMP HHN SCH ×4 (01:42→20:51)
[2018-11-18] MEDS: LANSOPRAZOLE 30 MG CAP GTB SCH (06:14)
--- NOTE | 2018-11-18 08:32 | PN ---
DATE: 11/18/2018 SUBJECTIVE DATA: The patient is stable. No events overnight. No fevers, chills, nausea, vomiting. OBJECTIVE: VITAL SIGNS: Blood pressure is 136/82, respirations 22, pulse 87, temperature 98.3. HEENT: Head is normocephalic. NECK: Supple. HEART: Regular rate. LUNGS: Show diminished breath sounds at base. ABDOMEN: Soft, nontender to palpation. No rebound or guarding. EXTREMITIES: Negative for clubbing, cyanosis, no edema. DERMATOLOGIC: No rashes. MUSCULOSKELETAL: No joint effusion. NEUROLOGIC: No change in exam. MEDICATIONS: Reviewed. LABORATORY DATA: From 11/18/2018 was reviewed. ASSESSMENT AND PLAN: 1. Nonoliguric acute kidney injury. The patient's renal function has improved after adjusting diure tics. Continue current treatment plan, supportive care, renally dose all meds. 2. Hypernatremia, improved. Continue water flushes. 3. Acute diastolic heart failure. The patient appears near euvolemic. Continue to monitor, will gi ve intermittent diuretics as needed. 4. Anemia. Continue to monitor hemoglobin and hematocrit levels. 5. Mineral bone disorder, monitor calcium and phosphorus levels. 6. Atrial fibrillation. Continue medical management. 7. Ventilator-dependent respiratory failure. Vent settings and ABG was reviewed. Continue to monit or. 8. Dysphagia. Continue tube feeding. 9. Seizure disorder. Continue current treatment plan. 10. Sepsis. Patient is completing antibiotic course. 11. Encephalopathy, improved. 12. History of cerebrovascular accident. Continue current treatment plan. Dictated By: RAJINDER WATTS/MONROE Conf#: [id number] DID#: [id number] CC: ROSALVA SANCHES MD;*EndCC*
[2018-11-18] MEDS: BUDESONIDE (NEB) 0.5MG/2ML AMP HHN SCH ×2 (08:34→20:51)
[2018-11-18] MEDS: LEVETIRACETAM (100 MG/ML) 5ML CUP GTB SCH ×2 (09:07→21:08)
[2018-11-18] MEDS: NEUTRA-PHOS 250 MG PACKET PO SCH ×2 (09:07→21:09)
[2018-11-18] MEDS: DOCUSATE SODIUM 10 MG/ML (10ML CUP) NGT SCH ×2 (09:07→21:09)
[2018-11-18] MEDS: COLLAGENASE 5 GM (UD JAR) TOP SCH ×2 (09:07→21:09)
[2018-11-18] MEDS: CEFEPIME 2GM/50 ML (PMX) 50 ML IVPB SCH ×2 (09:07→21:20)
[2018-11-18] MEDS: APIXABAN 5 MG TABLET PO SCH ×2 (09:07→21:09)
[2018-11-18] MEDS: METOPROLOL 50 MG TAB PO SCH ×2 (09:08→21:10)
[2018-11-18] MEDS: BALSAM PERU/CASTOR OIL 60 GM TUBE TOP SCH (09:08)
[2018-11-18] MEDS: MUPIROCIN 2% 22 GM OINT TOP SCH ×2 (09:09→21:11)
--- NOTE | 2018-11-18 11:59 | CONS ---
Date/Time of Note Date/Time of Note DATE: 11/18/18 TIME: 11:53 Assessment/Plan Assessment/Plan Hospital Course IMPRESSION: 1. Atrial fibrillation with a rapid ventricular response.-now in SR and remains. Had SVT ths am in the setting of fevers, intially regular at 170-180. Improved after starting silt drip. ? AVNRT/AT-now SR 2. Abnormal electrocardiogram with ST depressions during atrial fibrillation with rapid ventricular response. 3. Altered mental state/encephalopathy. 4. Possible seizure-like activity. 5. Congestive heart failure, diastolic, chronic. 6. Hypertension. 7. Urinary tract infection. 8. Renal failure. 9. Leukocytosis. 10. bacteremia 11.fevers Recc: -Tele -Continue IVP BB PRN -continue PO BB with increase to suppress further bouts of SVT -Continue eliquis -Continue abx's and f/u cx data -IVP PRN hydralazine -Continue bronchodilators -follow MS closely -Follow volume status closely Result Diagram: 11/18/18 0516 11/18/18 0516 Results 24hrs Laboratory Tests Test 11/18/18 05:16 White Blood Count 5.6 # Red Blood Count 2.53 L Hemoglobin 7.8 L Hematocrit 25.9 L Mean Corpuscular Volume 102.4 H Mean Corpuscular Hemoglobin 30.8 Mean Corpuscular Hemoglobin Concent 30.1 L Red Cell Distribution Width 15.9 H Platelet Count 252 Mean Platelet Volume 9.7 Immature Granulocytes % 1.600 H Neutrophils % 69.1 Lymphocytes % 21.1 Monocytes % 5.9 Eosinophils % 1.8 Basophils % 0.5 Nucleated Red Blood Cells % 0.0 Immature Granulocytes # 0.090 H Neutrophils # 3.9 Lymphocytes # 1.2 Monocytes # 0.3 Eosinophils # 0.1 Basophils # 0.0 Nucleated Red Blood Cells # 0.0 Sodium Level 142 Potassium Level 4.6 Chloride Level 102 Carbon Dioxide Level 29 Anion Gap 11 Blood Urea Nitrogen 26 H Creatinine 0.92 Est Glomerular Filtrat Rate mL/min Glucose Level 113 Calcium Level 8.8 Consultation Date/Type/Reason Admit Date/Time Oct 27, 2018 at 08:14 Initial Consult Date 10/27/18 Type of Consult cardiology Reason for Consultation AF Requesting Provider: JAYLEN LUGO MD Exam/Review of Systems Vital Signs Vitals Vital Signs Date Temp Pulse Resp B/P (MAP) Pulse Ox O2 O2 Flow FiO2 Time Delivery Rate 11/18/18 89 25 131/62 98 10:00 (85) 11/18/18 30 07:53 11/18/18 98.9 07:49 11/18/18 Mechanical 06:00 Ventilator Trach Collar Intake and Output 11/17/18 11/17/18 11/18/18 1515:00 23:00 07:00 IntakeIntake Total 200 ml 1360 ml 1060 ml OutputOutput Total 1200 ml 1100 ml BalanceBalance 200 ml 160 ml -40 ml Exam Review of Systems: CONSTITUTIONAL: No fevers, chills. PULMONARY: No sob CARDIOVASCULAR: No chest pain/palpitations GASTROINTESTINAL: No nausea/vomiting. GENITOURINARY: No hematuria/dysuria. MUSCULOSKELETAL: No myagias/arthalgias. PSYCHIATRIC: The patient denies depression. NEUROLOGIC: lethargic Constitutional: alert Psych: no complaints Head: normocephalic ENMT: mucosa pink and moist Neck: supple, jvd (9 cm water) Respiratory: diminished breath sounds Cardiovascular: regular rate and rhythm Gastrointestinal: soft Musculoskeletal: muscle tone (normal) Extremities: edema (none) Medications Medications Current Medications Acetaminophen (Tylenol Supp) 650 mg Q6H PRN [place] FEVER GREATER THAN 100.6 Last administered on 10/28/18at 03:07; Admin Dose 650 MG; Start 10/28/18 at 02:30 Hydralazine HCl (Apresoline) 10 mg Q4H PRN IV SBP>170; Start 10/28/18 at 11:00 Mupirocin (Bactroban) 1 applic BID TOP Last administered on 11/18/18 09:09; Admin Dose 1 APPLIC; Start 10/28/18 at 21:00 Levalbuterol (Xopenex Neb) 1.25 mg Q6H RESP THERAPY HHN Last administered on 11/18/18 07:52; Admin Dose 1.25 MG; Start 10/29/18 at 08:00 Budesonide (Pulmicort (Neb)) 0.5 mg BID RESP THERAPY HHN Last administered on 11/18/18 08:34; Admin Dose 0.5 MG; Start 10/29/18 at 09:00 Ipratropium [place] (Atrovent 0.02% (Neb)) 0.5 mg Q6H RESP THERAPY HHN Last administered on 11/18/18 07:52; Admin Dose 0.5 MG; Start 10/29/18 at 08:00 Lansoprazole (Prevacid) 30 mg DAILY@06 GTB Last administered on 11/18/18 06:14; Admin Dose 30 MG; Start 10/31/18 at 06:00 Sodium Phosphate (Neutra-Phos) 250 mg BID PO Last administered on 11/18/18 09:07; Admin Dose 250 MG; Start 11/01/18 at 09:00 Apixaban (Eliquis) 2.5 mg BID PO Last administered on 11/18/18 09:07; Admin Dose 2.5 MG; Start 11/02/18 at 09:00 Morphine Sulfate (morphine) 15 mg Q4H PRN PO SEVERE PAIN LEVEL 7-10; Start 11/04/18 at 14:30 Lorazepam (Ativan) 1 mg Q6H PRN IV SEIZURES; Start 11/04/18 at 15:00 Lorazepam (Ativan) 1 mg Q6H PRN PO ANXIETY Last administered on 11/15/18 06:53; Admin Dose 1 MG; Start 11/04/18 at 15:00 Docusate Sodium (Colace Liquid Cup) 100 mg BID NGT Last administered on 11/18/18 09:07; Admin Dose 100 MG; Start 11/04/18 at 21:00 Bisacodyl (Dulcolax Supp) 10 mg DAILY PRN [place] CONSTIPATION Last administered on 11/05/18at 12:21; Admin Dose 10 MG; Start 11/05/18 at 11:30 IV Flush (NS 10 ml) 10 ml PRN PRN IV IV PROTOCOL; Start 11/07/18 at 15:00 Levetiracetam (Keppra Liquid) 500 mg BID GTB Last administered on 11/18/18 09:07; Admin Dose 500 MG; Start 11/08/18 at 21:00 Ondansetron HCl (Zofran Inj) 4 mg Q6H PRN IV NAUSEA AND/OR VOMITING; Start 11/15/18 at 08:00 Acetaminophen (Tylenol Liquid) 650 mg Q4H PRN NGT MILD PAIN(1-3)OR ELEVATED TEMP Last administered on 11/15/18 08:03; Admin Dose 650 MG; Start 11/15/18 at 08:00 Diltiazem HCl 125 ml @ 5 mls/hr TITRATE IV Last administered on 11/15/18 09:17; Admin Dose 5 MLS/HR; Start 11/15/18 at 10:00; Status Hold Cefepime HCl 50 ml @ 100 mls/hr Q12 IVPB Last administered on 11/18/18 09:07; Admin Dose 100 MLS/HR; Start 11/15/18 at 10:30 Levofloxacin/ Dextrose 150 ml @ 100 mls/hr Q24H IVPB Last administered on 11/17/18 10:27; Admin Dose 100 MLS/HR; Start 11/15/18 at 10:30 Vancomycin HCl (Vanco Iv Per Pharmacy) VANCOMYCIN PER PHARMACY PER PROTOCOL XX ; Start 11/15/18 at 14:00 Metoprolol Tartrate (Lopressor) 50 mg BID PO Last administered on 11/18/18 09:08; Admin Dose 50 MG; Start 11/15/18 at 21:00 Diltiazem HCl (Cardizem Iv) 5 mg Q4 PRN IV HR>110 Hold SBP<100; Start 11/15/18 at 18:30 Collagenase (Santyl) 1 applic BID TOP Last administered on 11/18/18 09:07; Admin Dose 1 APPLIC; Start 11/16/18 at 21:00 Vancomycin HCl 1.25 gm/Sodium Chloride 250 ml @ 83.333 mls/ hr Q24H IVPB ; Start 11/17/18 at 16:00 LUIS FERGUSON Nov 18, 2018 11:59
[2018-11-18] MEDS: LEVOFLOXACIN 750MG/D5W (PMX) 150 ML IVPB SCH (12:11)
--- NOTE | 2018-11-18 12:20 | CONS ---
Assessment/Plan Assessment/Plan Hospital Course A: 73 yo F with reported Hx of afib, HTN, and other comorbidities...who presents with ams, tachyarrhythmia, and involuntary muscle jerking...for which neurology is consulted. The clinical picture was initially consistent w/ status epilepticus...which has since responded to AED Tx.. The pt was addtionally noted to be in afib with RVR on readmission, which raised concern for superimposed acute stroke. MRI brain confirmed acute multilobar infarcts. EEG was notable for frequent right hemispheric epileptiform discharges, which was clinically consistent with status epilepticus. Echo was unrevealing. Repeat CTH was unrevealing. P: Cont maintenance Keppra 500 BID for now Ativan iv for prolonged seizure > 5min or for cluster Continue Lipitor for secondary stroke prevention Eliquis OK for the same Other medical management and supportive care per primary Will follow clinically Result Diagram: 11/18/18 0516 11/18/18 0516 Results 24hrs Laboratory Tests Test 11/18/18 05:16 White Blood Count 5.6 # Red Blood Count 2.53 L Hemoglobin 7.8 L Hematocrit 25.9 L Mean Corpuscular Volume 102.4 H Mean Corpuscular Hemoglobin 30.8 Mean Corpuscular Hemoglobin Concent 30.1 L Red Cell Distribution Width 15.9 H Platelet Count 252 Mean Platelet Volume 9.7 Immature Granulocytes % 1.600 H Neutrophils % 69.1 Lymphocytes % 21.1 Monocytes % 5.9 Eosinophils % 1.8 Basophils % 0.5 Nucleated Red Blood Cells % 0.0 Immature Granulocytes # 0.090 H Neutrophils # 3.9 Lymphocytes # 1.2 Monocytes # 0.3 Eosinophils # 0.1 Basophils # 0.0 Nucleated Red Blood Cells # 0.0 Sodium Level 142 Potassium Level 4.6 Chloride Level 102 Carbon Dioxide Level 29 Anion Gap 11 Blood Urea Nitrogen 26 H Creatinine 0.92 Est Glomerular Filtrat Rate mL/min Glucose Level 113 Calcium Level 8.8 Consultation Date/Type/Reason Admit Date/Time Oct 27, 2018 at 08:14 Type of Consult Neurology Requesting Provider: JAYLEN LUGO MD Date/Time of Note DATE: 11/18/18 TIME: 12:20 24 HR Interval Summary Free Text/Dictation Continues telemetry monitoring. No acute events or changes in pt condition reported. Subjective hx not possible: pt non-verbal Exam Vital Signs Vitals Vital Signs Date Temp Pulse Resp B/P (MAP) Pulse Ox O2 O2 Flow FiO2 Time Delivery Rate 11/18/18 97 23 98 30 11:50 11/18/18 131/62 10:00 (85) 11/18/18 98.9 07:49 11/18/18 Mechanical 06:00 Ventilator Trach Collar Intake and Output 11/17/18 11/17/18 11/18/18 1515:00 23:00 07:00 IntakeIntake Total 200 ml 1360 ml 1060 ml OutputOutput Total 1200 ml 1100 ml BalanceBalance 200 ml 160 ml -40 ml Exam PE: Gen Appearance: No Apparent Distress HEENT: Has trach, NGT Cardiovascular: SR on telemetry Abdomen: Soft Extremities: Dry NE: The patient was awake and alert though nonverbal, d/t trach, however pt was able to mouth words. Was blinking spontaneously. The pt intermittently followed appendicular commands. Cranial nerve examination was limited by mental status. Pupils were equal, round and briskly reactive to light. There was no afferent pupillary defect. Funduscopic examination was limited. Face was grossly symmetric, w/ a present cough/gag reflex. Tone was increased in her upper extremities . Muscle bulk was slightly diminished. I did not see fasciculations. The patient moved her upper extremities spontaneously and withdrew her lowers extremities to noxious stimuli. Coordination and gait testing was limited by mental status. Arm and leg reflexes were symmetric. Doshi's sign was absent. Plantar responses were flexor. JOE WYATT NP Nov 18, 2018 12:20
--- NOTE | 2018-11-18 14:44 | PN ---
Date/Time of Note Date/Time of Note DATE: 11/18/18 TIME: 14:40 Assessment/Plan VTE Prophylaxis Risk score (from Ns)>0 risk: 8 SCD applied (from Ns): Yes Pharmacological prophylaxis: apixaban Lines/Catheters IV Catheter Type (from Nrs): PICC Line Central line still needed: Yes Urinary Cath still in place: Yes Reason Cath still needed: urinary retention Assessment/Plan Hospital Course Patient is confused, continues on vent without distress, afebrile, pt continues on NG tube feeding, will obtain speech swallowing reevaluation. Assessment/Plan -Acute encephalopathy secondary to CVA. Dr. Meng is following in neurology consultation. -Seizure disorder/status epilepticus. Continue Keppra and Ativan as needed. -Status post healthcare associated pneumonia and urinary tract infection. -MRSA nares colonization -Atrial fibrillation, continue Eliquis -Diastolic congestive heart failure. Dr. Hernandez is following in cardiology consultation. -Bilateral superficial venous thrombus within the cephalic veins. -Pulmonary fibrosis, continue Pulmicort. Dr. Davenport is following in pulmonology consultation. -Chronic tracheostomy -COPD Further recommendations based on clinical course. Plan of care discussed with Dr. Phillips. Result Diagram: 11/18/18 0516 11/18/18 0516 Results 24hrs Laboratory Tests Test 11/18/18 05:16 White Blood Count 5.6 # Red Blood Count 2.53 L Hemoglobin 7.8 L Hematocrit 25.9 L Mean Corpuscular Volume 102.4 H Mean Corpuscular Hemoglobin 30.8 Mean Corpuscular Hemoglobin Concent 30.1 L Red Cell Distribution Width 15.9 H Platelet Count 252 Mean Platelet Volume 9.7 Immature Granulocytes % 1.600 H Neutrophils % 69.1 Lymphocytes % 21.1 Monocytes % 5.9 Eosinophils % 1.8 Basophils % 0.5 Nucleated Red Blood Cells % 0.0 Immature Granulocytes # 0.090 H Neutrophils # 3.9 Lymphocytes # 1.2 Monocytes # 0.3 Eosinophils # 0.1 Basophils # 0.0 Nucleated Red Blood Cells # 0.0 Sodium Level 142 Potassium Level 4.6 Chloride Level 102 Carbon Dioxide Level 29 Anion Gap 11 Blood Urea Nitrogen 26 H Creatinine 0.92 Est Glomerular Filtrat Rate mL/min Glucose Level 113 Calcium Level 8.8 Exam/Review of Systems Vital Signs Vitals Vital Signs Date Temp Pulse Resp B/P (MAP) Pulse Ox O2 O2 Flow FiO2 Time Delivery Rate 11/18/18 90 28 186/81 100 14:07 (116) 11/18/18 30 13:56 11/18/18 98.9 07:49 11/18/18 Mechanical 06:00 Ventilator Trach Collar Intake and Output 11/17/18 11/17/18 11/18/18 1515:00 23:00 07:00 IntakeIntake Total 200 ml 1360 ml 1060 ml OutputOutput Total 1200 ml 1100 ml BalanceBalance 200 ml 160 ml -40 ml Exam Constitutional: alert, non-verbal Neck: supple, other (trach) Respiratory: diminished breath sounds Cardiovascular: regular rhythm Gastrointestinal: soft, non-tender Musculoskeletal: nl extremities to inspection Extremities: normal pulses Skin: nl turgor Medications Medications Current Medications Acetaminophen (Tylenol Supp) 650 mg Q6H PRN [place] FEVER GREATER THAN 100.6 Last administered on 10/28/18 03:07; Admin Dose 650 MG; Start 10/28/18 at 02:30 Hydralazine HCl (Apresoline) 10 mg Q4H PRN IV SBP>170; Start 10/28/18 at 11:00 Mupirocin (Bactroban) 1 applic BID TOP Last administered on 11/18/18 09:09; Admin Dose 1 APPLIC; Start 10/28/18 at 21:00 Levalbuterol (Xopenex Neb) 1.25 mg Q6H RESP THERAPY HHN Last administered on 13:56; Admin Dose 1.25 MG; Start 10/29/18 at 08:00 Budesonide (Pulmicort (Neb)) 0.5 mg BID RESP THERAPY HHN Last administered on 11/18/18 08:34; Admin Dose 0.5 MG; Start 10/29/18 at 09:00 Ipratropium [place] (Atrovent 0.02% (Neb)) 0.5 mg Q6H RESP THERAPY HHN Last administered on 11/18/18 13:56; Admin Dose 0.5 MG; Start 10/29/18 at 08:00 Lansoprazole (Prevacid) 30 mg DAILY@06 GTB Last administered on 11/18/18 06:14; Admin Dose 30 MG; Start 10/31/18 at 06:00 Sodium Phosphate (Neutra-Phos) 250 mg BID PO Last administered on 11/18/18 09:07; Admin Dose 250 MG; Start 11/01/18 at 09:00 Apixaban (Eliquis) 2.5 mg BID PO Last administered on 11/18/18 09:07; Admin Dose 2.5 MG; Start 11/02/18 at 09:00 Morphine Sulfate (morphine) 15 mg Q4H PRN PO SEVERE PAIN LEVEL 7-10; Start at 14:30 Lorazepam (Ativan) 1 mg Q6H PRN IV SEIZURES; Start 11/04/18 at 15:00 Lorazepam (Ativan) 1 mg Q6H PRN PO ANXIETY Last administered on 11/15/18 06:53; Admin Dose 1 MG; Start 11/04/18 at 15:00 Docusate Sodium (Colace Liquid Cup) 100 mg BID NGT Last administered on 11/18/18 09:07; Admin Dose 100 MG; Start 11/04/18 at 21:00 Bisacodyl (Dulcolax Supp) 10 mg DAILY PRN [place] CONSTIPATION Last administered on 11/05/18at 12:21; Admin Dose 10 MG; Start 11/05/18 at 11:30 IV Flush (NS 10 ml) 10 ml PRN PRN IV IV PROTOCOL; Start 11/07/18 at 15:00 Levetiracetam (Keppra Liquid) 500 mg BID GTB Last administered on 11/18/18 09:07; Admin Dose 500 MG; Start 11/08/18 at 21:00 Ondansetron HCl (Zofran Inj) 4 mg Q6H PRN IV NAUSEA AND/OR VOMITING; Start 11/15/18 at 08:00 Acetaminophen (Tylenol Liquid) 650 mg Q4H PRN NGT MILD PAIN(1-3)OR ELEVATED TEMP Last administered on 11/15/18 08:03; Admin Dose 650 MG; Start 11/15/18 at 08:00 Diltiazem HCl 125 ml @ 5 mls/hr TITRATE IV Last administered on 11/15/18 09:17; Admin Dose 5 MLS/HR; Start 11/15/18 at 10:00; Status Hold Cefepime HCl 50 ml @ 100 mls/hr Q12 IVPB Last administered on 11/18/18at 09:07; Admin Dose 100 MLS/HR; Start 11/15/18 at 10:30 Levofloxacin/ Dextrose 150 ml @ 100 mls/hr Q24H IVPB Last administered on 11/18/18at 12:11; Admin Dose 100 MLS/HR; Start 11/15/18 at 10:30 Vancomycin HCl (Vanco Iv Per Pharmacy) VANCOMYCIN PER PHARMACY PER PROTOCOL XX ; Start 11/15/18 at 14:00 Metoprolol Tartrate (Lopressor) 50 mg BID PO Last administered on 11/18/18at 09:08; Admin Dose 50 MG; Start 11/15/18 at 21:00 Diltiazem HCl (Cardizem Iv) 5 mg Q4 PRN IV HR>110 Hold SBP<100; Start 11/15/18 at 18:30 Collagenase (Santyl) 1 applic BID TOP Last administered on 11/18/18at 09:07; Admin Dose 1 APPLIC; Start 11/16/18 at 21:00 Vancomycin HCl 1.25 gm/Sodium Chloride 250 ml @ 83.333 mls/ hr Q48H IVPB ; Start 11/19/18 at 14:00 IMER VARGAS Nov 18, 2018 14:44
--- NOTE | 2018-11-18 15:38 | CONS ---
Date/Time of Note Date/Time of Note DATE: 11/18/18 TIME: 15:37 Assessment/Plan Assessment/Plan Hospital Course ANEMIA WITH COMPONENT ACD CONT TO MONITOR BLOOD COUNT CLOSELY OBSERVE FOR BLEEDING AND HEMOLYSIS NO INDICATIONS FOR TRANSFUSION Hypomagnesium- resolved [id number] respiratory failure. The patient's respiratory status has improved after he was dialyzed yesterday. The patient is breathing comfortably. Endstage renal disease. Continue hemodialysis as per Dr. Monique. Coronary artery disease. Continue aspirin and carvedilol. Cardiomyopathy. Continue aspirin, carvedilol and Eliquis. Dyslipidemia. The patient is already maxed out on Lipitor. Benign prostatic hypertrophy. Continue Flomax. Chronic obstructive pulmonary disease evaluation. Continue DuoNeb, Rocephin. Meanwhile, we will decrease Solu-Medrol to 20 daily. Diabetes. Out of control due to Solu-Medrol and also patient due to agitation and unpredictable p.o. intake was not given long-acting. The patient at home takes Tresiba. I will start him on Lantus. Acute psychosis. Continue p.r.n. Haldol. Chronic lower back pain. Continue [place] as needed. Result Diagram: 11/18/18 0516 11/18/1816 Results 24hrs Laboratory Tests Test 11/18/18 05:16 White Blood Count 5.6 # Red Blood Count 2.53 L Hemoglobin 7.8 L Hematocrit 25.9 L Mean Corpuscular Volume 102.4 H Mean Corpuscular Hemoglobin 30.8 Mean Corpuscular Hemoglobin Concent 30.1 L Red Cell Distribution Width 15.9 H Platelet Count 252 Mean Platelet Volume 9.7 Immature Granulocytes % 1.600 H Neutrophils % 69.1 Lymphocytes % 21.1 Monocytes % 5.9 Eosinophils % 1.8 Basophils % 0.5 Nucleated Red Blood Cells % 0.0 Immature Granulocytes # 0.090 H Neutrophils # 3.9 Lymphocytes # 1.2 Monocytes # 0.3 Eosinophils # 0.1 Basophils # 0.0 Nucleated Red Blood Cells # 0.0 Sodium Level 142 Potassium Level 4.6 Chloride Level 102 Carbon Dioxide Level 29 Anion Gap 11 Blood Urea Nitrogen 26 H Creatinine 0.92 Est Glomerular Filtrat Rate mL/min Glucose Level 113 Calcium Level 8.8 Consultation Date/Type/Reason Admit Date/Time Oct 27, 2018 at 08:14 Initial Consult Date 10/28/18 Type of Consult [facility] Requesting Provider: JAYLEN LUGO MD 24 HR Interval Summary Free Text/Dictation ALL NOTED INTERMITTENT SVT NO BLEEDING Exam/Review of Systems Vital Signs Vitals Vital Signs Date Temp Pulse Resp B/P (MAP) Pulse Ox O2 O2 Flow FiO2 Time Delivery Rate 11/18/18 90 28 186/81 100 14:07 (116) 11/18/18 30 13:56 11/18/18 98.9 07:49 11/18/18 Mechanical 06:00 Ventilator Trach Collar Intake and Output 11/17/18 11/17/18 11/18/18 1515:00 23:00 07:00 IntakeIntake Total 200 ml 1360 ml 1060 ml OutputOutput Total 1200 ml 1100 ml BalanceBalance 200 ml 160 ml -40 ml Exam Constitutional: non-verbal Psych: nl mood/affect Eyes: nl conjunctiva, nl lids, nl sclera ENMT: nl external ears & nose Neck: other Respiratory: diminished breath sounds Cardiovascular: nl pulses, other Gastrointestinal: soft, other Musculoskeletal: muscle weakness, range of motion Extremities: normal pulses Neurological: lethargic Lymph: nontender Medications Medications Current Medications Acetaminophen (Tylenol Supp) 650 mg Q6H PRN [place] FEVER GREATER THAN 100.6 Last administered on 10/28/18at 03:07; Admin Dose 650 MG; Start 10/28/18 at 02:30 Hydralazine HCl (Apresoline) 10 mg Q4H PRN IV SBP>170; Start 10/28/18 at 11:00 Mupirocin (Bactroban) 1 applic BID TOP Last administered on 11/18/18 09:09; Adm in Dose 1 APPLIC; Start 10/28/18 at 21:00 Levalbuterol (Xopenex Neb) 1.25 mg Q6H RESP THERAPY HHN Last administered on 11/18/18 13:56; Admin Dose 1.25 MG; Start 10/29/18 at 08:00 Budesonide (Pulmicort (Neb)) 0.5 mg BID RESP THERAPY HHN Last administered on 11/18/18 08:34; Admin Dose 0.5 MG; Start 10/29/18 at 09:00 Ipratropium [place] (Atrovent 0.02% (Neb)) 0.5 mg Q6H RESP THERAPY HHN Last administered on 11/18/18 13:56; Admin Dose 0.5 MG; Start 10/29/18 at 08:00 Lansoprazole (Prevacid) 30 mg DAILY@06 GTB Last administered on 11/18/18 06:14; Admin Dose 30 MG; Start 10/31/18 at 06:00 Sodium Phosphate (Neutra-Phos) 250 mg BID PO Last administered on 11/18/18 09:07; Admin Dose 250 MG; Start 11/01/18 at 09:00 Apixaban (Eliquis) 2.5 mg BID PO Last administered on 11/18/18 09:07; Admin Dose 2.5 MG; Start 11/02/18 at 09:00 Morphine Sulfate (morphine) 15 mg Q4H PRN PO SEVERE PAIN LEVEL 7-10; Start 11/04/18 at 14:30 Lorazepam (Ativan) 1 mg Q6H PRN IV SEIZURES; Start 11/04/18 at 15:00 Lorazepam (Ativan) 1 mg Q6H PRN PO ANXIETY Last administered on 11/15/18 06:53; Admin Dose 1 MG; Start 11/04/18 at 15:00 Docusate Sodium (Colace Liquid Cup) 100 mg BID NGT Last administered on 11/18/18 09:07; Admin Dose 100 MG; Start 11/04/18 at 21:00 Bisacodyl (Dulcolax Supp) 10 mg DAILY PRN [place] CONSTIPATION Last administered on 11/05/18at 12:21; Admin Dose 10 MG; Start 11/05/18 at 11:30 IV Flush (NS 10 ml) 10 ml PRN PRN IV IV PROTOCOL; Start 11/07/18 at 15:00 Levetiracetam (Keppra Liquid) 500 mg BID GTB Last administered on 11/18/18 09:07; Admin Dose 500 MG; Start 11/08/18 at 21:00 Ondansetron HCl (Zofran Inj) 4 mg Q6H PRN IV NAUSEA AND/OR VOMITING; Start 11/15/18 at 08:00 Acetaminophen (Tylenol Liquid) 650 mg Q4H PRN NGT MILD PAIN(1-3)OR ELEVATED TEMP Last administered on 11/15/18 08:03; Admin Dose 650 MG; Start 11/15/18 at 08:00 Diltiazem HCl 125 ml @ 5 mls/hr TITRATE IV Last administered on 11/15/18at 09:17; Admin Dose 5 MLS/HR; Start 11/15/18 at 10:00; Status Hold Cefepime HCl 50 ml @ 100 mls/hr Q12 IVPB Last administered on 11/18/18at 09:07; Admin Dose 100 MLS/HR; Start 11/15/18 at 10:30 Levofloxacin/ Dextrose 150 ml @ 100 mls/hr Q24H IVPB Last administered on 11/18/18at 12:11; Admin Dose 100 MLS/HR; Start 11/15/18 at 10:30 Vancomycin HCl (Vanco Iv Per Pharmacy) VANCOMYCIN PER PHARMACY PER PROTOCOL XX ; Start 11/15/18 at 14:00 Metoprolol Tartrate (Lopressor) 50 mg BID PO Last administered on 11/18/18at 09:08; Admin Dose 50 MG; Start 11/15/18 at 21:00 Diltiazem HCl (Cardizem Iv) 5 mg Q4 PRN IV HR>110 Hold SBP<100; Start 11/15/18 at 18:30 Collagenase (Santyl) 1 applic BID TOP Last administered on 11/18/18 09:07; Admin Dose 1 APPLIC; Start 11/16/18 at 21:00 Vancomycin HCl 1.25 gm/Sodium Chloride 250 ml @ 83.333 mls/ hr Q48H IVPB ; Start 11/19/18 at 14:00 WENDIE BARILLAS MD Nov 18, 2018 15:38
[2018-11-18] MEDS: LORAZEPAM 1 MG TAB PO PRN (21:08)
[2018-11-19] VITALS (27 sets, daily range): BP systolic 104–158; BP diastolic 52–86; PULSE 65–105; RESP 19–31
[2018-11-19] MEDS: IPRATROPIUM (NEB) 0.5 MG/2.5 ML AMP HHN SCH ×4 (01:53→20:17)
[2018-11-19] MEDS: LEVALBUTEROL (NEB) 1.25 MG/0.5 ML AMP HHN SCH ×4 (01:53→20:17)
[2018-11-19] MEDS: LANSOPRAZOLE 30 MG CAP GTB SCH (05:22)
--- NOTE | 2018-11-19 08:29 | PN ---
DATE: 11/19/2018 SUBJECTIVE: The patient remains stable, no acute events overnight. No fevers, chills, nausea, vomit ing. OBJECTIVE: VITAL SIGNS: Blood pressure is 132/86, pulse 89, respiratory rate 22, temperature 98.0. HEENT: Head is normocephalic. NECK: Supple. HEART: Regular rate. LUNGS: Show diminished breath sounds at the base. ABDOMEN: Soft, nontender to palpation. No rebound or guarding. EXTREMITIES: Negative for clubbing, cyanosis, no edema. DERMATOLOGIC: No rashes. MUSCULOSKELETAL: No joint effusions. NEUROLOGIC: No change in exam. MEDICATIONS: The patient's medications have been reviewed. LABORATORY DATA: Shows white count 5.4, hemoglobin 10.2, white count 231. Sodium 140, potassium 4.5 , BUN 27, creatinine 0.92. ASSESSMENT AND PLAN: 1. Nonoliguric acute kidney injury. Etiology of acute kidney injury was secondary to hemodynamics. Renal function has improved. Continue current treatment plans, supportive care, renally dose all me ds. 2. Hypernatremia, improved. Continue free water flushes. 3. Acute diastolic heart failure. Continue medical management. The patient appears to be near euvo lemic status. Continue intermittent diuretic therapy as needed. 4. Anemia. Monitor hemoglobin and hematocrit levels. 5. Mineral bone disorder. Monitor calcium and phosphorus levels. 6. Atrial fibrillation, continue medical management. 7. Ventilator-dependent respiratory failure. Vent settings and ABG was reviewed. Continue to monit or. 8. Dysphagia. Continue tube feeding. 9. Seizure disorder. Continue medical management. 10. Sepsis. Patient has completed antibiotic course. 11. Encephalopathy. 12. History of cerebrovascular accident. Continue current treatment plan. Dictated By: RAJINDER ATWOOD DO NR/NTS Conf#: [id number] DID#: [id number] CC: MENDEL FIELDS MD; ROSALVA SANCHES MD;*End*
[2018-11-19] MEDS: BUDESONIDE (NEB) 0.5MG/2ML AMP HHN SCH ×2 (08:53→20:17)
--- NOTE | 2018-11-19 09:05 | CONS ---
Date/Time of Note Date/Time of Note DATE: 11/19/18 TIME: 09:02 Assessment/Plan Assessment/Plan Assessment/Plan 1. Atrial fibrillation with a rapid ventricular response.-now in SR and remains. Had SVT ths am in the setting of fevers, intially regular at 170-180. Improved after starting silt drip. ? AVNRT/AT-now SR - NOW RATE CONTROLLED - stable overall. Converted to sinus now. 2. Abnormal electrocardiogram with ST depressions during atrial fibrillation with rapid ventricular response- no CP noed - treated. 3. Altered mental state/encephalopathy - might be new baseline - more alert now. 4. Possible seizure-like activity - no new episodes noted. 5. Congestive heart failure, diastolic, chronic- con't to keep euvolemic. Better fluid status. 6. Hypertension- well controlled - treated, 7. Urinary tract infection- on anti-Bx, no fevers now - on meds. No fevers. 8. Renal failure - avoid nephrotoxic meds. Result Diagram: 11/19/18 0459 11/19/18 0459 Results 24hrs Laboratory Tests Test 11/19/18 04:59 White Blood Count 5.4 Red Blood Count 2.31 L Hemoglobin 7.2 L Hematocrit 24.1 L Mean Corpuscular Volume 104.3 H Mean Corpuscular Hemoglobin 31.2 Mean Corpuscular Hemoglobin Concent 29.9 L Red Cell Distribution Width 16.1 H Platelet Count 231 Mean Platelet Volume 10.1 Immature Granulocytes % 1.700 H Neutrophils % 69.6 Lymphocytes % 20.7 Monocytes % 6.3 Eosinophils % 1.5 Basophils % 0.2 Nucleated Red Blood Cells % 0.0 Immature Granulocytes # 0.090 H Neutrophils # 3.8 Lymphocytes # 1.1 Monocytes # 0.3 Eosinophils # 0.1 Basophils # 0.0 Nucleated Red Blood Cells # 0.0 Sodium Level 140 Potassium Level 4.5 Chloride Level 106 Carbon Dioxide Level 29 Anion Gap 5 Blood Urea Nitrogen 27 H Creatinine 0.92 Est Glomerular Filtrat Rate mL/min Glucose Level 109 Calcium Level 8.9 Consultation Date/Type/Reason Admit Date/Time Oct 27, 2018 at 08:14 Initial Consult Date 10/28/18 Requesting Provider: JAYLEN LUGO MD 24 HR Interval Summary Free Text/Dictation NO acute events - BP in good range - more alert - converted to sinus now. ROS: No fever, no chills, no nausea, no vomiting, no diarrhea/constipation - PER NURSE No recent weight changes No chest pain, no PND, no orthopnea - mild SOB No dizziness, blurred vision No thirst, no heat or cold intolerance Exam/Review of Systems Vital Signs Vitals Vital Signs Date Temp Pulse Resp B/P (MAP) Pulse Ox O2 O2 Flow FiO2 Time Delivery Rate 11/19/18 98.0 89 22 132/86 96 Mechanical 07:47 (101) Ventilator Trach Collar 11/19/18 30 05:02 Intake and Output 11/18/18 11/18/18 11/19/18 1515:00 23:00 07:00 IntakeIntake Total 950 ml 1110 ml OutputOutput Total 800 ml 1200 ml BalanceBalance 150 ml -90 ml Exam General: WN/WD/NAD, AOx confused HEENT: Unicetric/atraumatic/EOMI (does not follow commands) NECK: trach Lymph: no lymphadenopathy HEART: regular with no S3, II/ systolic murmur at apex LUNGS: Coarse sounds ABD: soft, NT, ND, +BS : Intact Neuro: non focal SKIN: chronic changes EXT: trace edema Medications Medications Current Medications Acetaminophen (Tylenol Supp) 650 mg Q6H PRN [place] FEVER GREATER THAN 100.6 Last administered on 10/28/18at 03:07; Admin Dose 650 MG; Start 10/28/18 at 02:30 Hydralazine HCl (Apresoline) 10 mg Q4H PRN IV SBP>170; Start 10/28/18 at 11:00 Mupirocin (Bactroban) 1 applic BID TOP Last administered on 11/18/18 21:11; Admin Dose 1 APPLIC; Start 10/28/18 at 21:00 Levalbuterol (Xopenex Neb) 1.25 mg Q6H RESP THERAPY HHN Last administered on 11/19/18 08:52; Admin Dose 1.25 MG; Start 10/29/18 at 08:00 Budesonide (Pulmicort (Neb)) 0.5 mg BID RESP THERAPY HHN Last administered on 11/19/18 08:53; Admin Dose 0.5 MG; Start 10/29/18 at 09:00 Ipratropium [place] (Atrovent 0.02% (Neb)) 0.5 mg Q6H RESP THERAPY HHN Last administered on 11/19/18 08:52; Admin Dose 0.5 MG; Start 10/29/18 at 08:00 Lansoprazole (Prevacid) 30 mg DAILY@06 GTB Last administered on 11/19/18 05:22; Admin Dose 30 MG; Start 10/31/18 at 06:00 Sodium Phosphate (Neutra-Phos) 250 mg BID PO Last administered on 11/18/18 21 :09; Admin Dose 250 MG; Start 11/01/18 at 09:00 Apixaban (Eliquis) 2.5 mg BID PO Last administered on 11/18/18 21:09; Admin Dose 2.5 MG; Start 11/02/18 at 09:00 Morphine Sulfate (morphine) 15 mg Q4H PRN PO SEVERE PAIN LEVEL 7-10; Start 11/04/18 at 14:30 Lorazepam (Ativan) 1 mg Q6H PRN IV SEIZURES; Start 11/04/18 at 15:00 Lorazepam (Ativan) 1 mg Q6H PRN PO ANXIETY Last administered on 11/18/18 21:08; Admin Dose 1 MG; Start 11/04/18 at 15:00 Docusate Sodium (Colace Liquid Cup) 100 mg BID NGT Last administered on 11/18/18 21:09; Admin Dose 100 MG; Start 11/04/18 at 21:00 Bisacodyl (Dulcolax Supp) 10 mg DAILY PRN [place] CONSTIPATION Last administered on 11/05/18at 12:21; Admin Dose 10 MG; Start 11/05/18 at 11:30 IV Flush (NS 10 ml) 10 ml PRN PRN IV IV PROTOCOL; Start 11/07/18 at 15:00 Levetiracetam (Keppra Liquid) 500 mg BID GTB Last administered on 11/18/18 21:08; Admin Dose 500 MG; Start 11/08/18 at 21:00 Ondansetron HCl (Zofran Inj) 4 mg Q6H PRN IV NAUSEA AND/OR VOMITING; Start 11/15/18 at 08:00 Acetaminophen (Tylenol Liquid) 650 mg Q4H PRN NGT MILD PAIN(1-3)OR ELEVATED TEMP Last administered on 11/15/18 08:03; Admin Dose 650 MG; Start 11/15/18 at 08:00 Diltiazem HCl 125 ml @ 5 mls/hr TITRATE IV Last administered on 11/15/18 09:17; Admin Dose 5 MLS/HR; Start 11/15/18 at 10:00; Status Hold Cefepime HCl 50 ml @ 100 mls/hr Q12 IVPB Last administered on 11/18/18 21:20; Admin Dose 100 MLS/HR; Start 11/15/18 at 10:30 Levofloxacin/ Dextrose 150 ml @ 100 mls/hr Q24H IVPB Last administered on 11/18/18 12:11; Admin Dose 100 MLS/HR; Start 11/15/18 at 10:30 Vancomycin HCl (Vanco Iv Per Pharmacy) VANCOMYCIN PER PHARMACY PER PROTOCOL XX ; Start 11/15/18 at 14:00 Metoprolol Tartrate (Lopressor) 50 mg BID PO Last administered on 11/18/18 21:10; Admin Dose 50 MG; Start 11/15/18 at 21:00 Diltiazem HCl (Cardizem Iv) 5 mg Q4 PRN IV HR>110 Hold SBP<100; Start 11/15/18 at 18:30 Collagenase (Santyl) 1 applic BID TOP Last administered on 11/18/18 21:09; Admin Dose 1 APPLIC; Start 11/16/18 at 21:00 Vancomycin HCl 1.25 gm/Sodium Chloride 250 ml @ 83.333 mls/ hr Q48H IVPB ; Start 11/19/18 at 14:00 KINGSTON HEARD MD Nov 19, 2018 09:05
[2018-11-19] MEDS: DOCUSATE SODIUM 10 MG/ML (10ML CUP) NGT SCH ×2 (09:40→21:17)
[2018-11-19] MEDS: LEVETIRACETAM (100 MG/ML) 5ML CUP GTB SCH ×2 (09:40→21:17)
[2018-11-19] MEDS: CEFEPIME 2GM/50 ML (PMX) 50 ML IVPB SCH ×2 (09:40→21:17)
[2018-11-19] MEDS: COLLAGENASE 5 GM (UD JAR) TOP SCH ×2 (09:41→21:19)
[2018-11-19] MEDS: MUPIROCIN 2% 22 GM OINT TOP SCH ×2 (09:41→21:19)
[2018-11-19] MEDS: BALSAM PERU/CASTOR OIL 60 GM TUBE TOP SCH (09:41)
[2018-11-19] MEDS: NEUTRA-PHOS 250 MG PACKET PO SCH ×2 (09:41→21:18)
[2018-11-19] MEDS: APIXABAN 5 MG TABLET PO SCH ×2 (09:41→21:17)
[2018-11-19] MEDS: METOPROLOL 50 MG TAB PO SCH ×2 (09:44→21:18)
[2018-11-19] MEDS: LEVOFLOXACIN 750MG/D5W (PMX) 150 ML IVPB SCH (10:06)
--- NOTE | 2018-11-19 12:36 | PN ---
Date/Time of Note Date/Time of Note DATE: 11/19/18 TIME: 12:28 Assessment/Plan VTE Prophylaxis Risk score (from Ns)>0 risk: 10 SCD applied (from Ns): Yes Pharmacological prophylaxis: apixaban Lines/Catheters IV Catheter Type (from Nrs): PICC Line Central line still needed: Yes Urinary Cath still in place: Yes Reason Cath still needed: urinary retention Assessment/Plan Hospital Course Patient failed speech swallowing reevaluation, speech therapy recommends manager terminal enteral nutrition, patient is confused, being fed via NG tube. Patient is currently on antibiotics for bacteremia. We will transfuse 1 unit of packed red blood cells for hemoglobin 7.2. Assessment/Plan -Acute encephalopathy secondary to CVA. Dr. Meng is following in neurology consultation. -Seizure disorder/status epilepticus. Continue Keppra and Ativan as needed. -Status post healthcare associated pneumonia and urinary tract infection. -MRSA nares colonization -Atrial fibrillation, continue Eliquis -Diastolic congestive heart failure. Dr. Hernandez is following in cardiology consultation. -Bilateral superficial venous thrombus within the cephalic veins. -Pulmonary fibrosis, continue Pulmicort. Dr. Davenport is following in pulmonology consultation. -Chronic tracheostomy -COPD Further recommendations based on clinical course. Plan of care discussed with Dr. Phillips. Result Diagram: 11/19/189 11/19/18 0459 Results 24hrs Laboratory Tests Test 11/19/18 04:59 White Blood Count 5.4 Red Blood Count 2.31 L Hemoglobin 7.2 L Hematocrit 24.1 L Mean Corpuscular Volume 104.3 H Mean Corpuscular Hemoglobin 31.2 Mean Corpuscular Hemoglobin Concent 29.9 L Red Cell Distribution Width 16.1 H Platelet Count 231 Mean Platelet Volume 10.1 Immature Granulocytes % 1.700 H Neutrophils % 69.6 Lymphocytes % 20.7 Monocytes % 6.3 Eosinophils % 1.5 Basophils % 0.2 Nucleated Red Blood Cells % 0.0 Immature Granulocytes # 0.090 H Neutrophils # 3.8 Lymphocytes # 1.1 Monocytes # 0.3 Eosinophils # 0.1 Basophils # 0.0 Nucleated Red Blood Cells # 0.0 Sodium Level 140 Potassium Level 4.5 Chloride Level 106 Carbon Dioxide Level 29 Anion Gap 5 Blood Urea Nitrogen 27 H Creatinine 0.92 Est Glomerular Filtrat Rate mL/min Glucose Level 109 Calcium Level 8.9 Exam/Review of Systems Vital Signs Vitals Vital Signs Date Temp Pulse Resp B/P (MAP) Pulse Ox O2 O2 Flow FiO2 Time Delivery Rate 11/19/18 98.0 70 22 127/72 96 Mechanical 12:17 (90) Ventilator Trach Collar 11/19/18 30 09:00 Intake and Output 11/18/18 11/18/18 11/19/18 1515:00 23:00 07:00 IntakeIntake Total 950 ml 1110 ml OutputOutput Total 800 ml 1200 ml BalanceBalance 150 ml -90 ml Exam Constitutional: alert, non-verbal Neck: supple, other (trach) Respiratory: diminished breath sounds Cardiovascular: regular rhythm Gastrointestinal: soft, non-tender Musculoskeletal: nl extremities to inspection Extremities: normal pulses Skin: nl turgor Medications Medications Current Medications Acetaminophen (Tylenol Supp) 650 mg Q6H PRN [place] FEVER GREATER THAN 100.6 Last administered on 10/28/18 03:07; Admin Dose 650 MG; Start 10/28/18 at 02:30 Hydralazine HCl (Apresoline) 10 mg Q4H PRN IV SBP>170; Start 10/28/18 at 11:00 Mupirocin (Bactroban) 1 applic BID TOP Last administered on 11/19/18 09:41; Admin Dose 1 APPLIC; Start 10/28/18 at 21:00 Levalbuterol (Xopenex Neb) 1.25 mg Q6H RESP THERAPY HHN Last administered on 11/19/18 08:52; Admin Dose 1.25 MG; Start 10/29/18 at 08:00 Budesonide (Pulmicort (Neb)) 0.5 mg BID RESP THERAPY HHN Last administered on 11/19/18 08:53; Admin Dose 0.5 MG; Start 10/29/18 at 09:00 Ipratropium [place] (Atrovent 0.02% (Neb)) 0.5 mg Q6H RESP THERAPY HHN Last administered on 11/19/18 08:52; Admin Dose 0.5 MG; Start 10/29/18 at 08:00 Lansoprazole (Prevacid) 30 mg DAILY@06 GTB Last administered on 11/19/18 05:22; Admin Dose 30 MG; Start 10/31/18 at 06:00 Sodium Phosphate (Neutra-Phos) 250 mg BID PO Last administered on 11/19/18 09:41; Admin Dose 250 MG; Start 11/01/18 at 09:00 Apixaban (Eliquis) 2.5 mg BID PO Last administered on 11/19/18 09:41; Admin Dose 2.5 MG; Start 11/02/18 at 09:00 Morphine Sulfate (morphine) 15 mg Q4H PRN PO SEVERE PAIN LEVEL 7-10; Start 11/04/18 at 14:30 Lorazepam (Ativan) 1 mg Q6H PRN IV SEIZURES; Start 11/04/18 at 15:00 Lorazepam (Ativan) 1 mg Q6H PRN PO ANXIETY Last administered on 11/18/18 21:08; Admin Dose 1 MG; Start 11/04/18 at 15:00 Docusate Sodium (Colace Liquid Cup) 100 mg BID NGT Last administered on 11/19/18 09:40; Admin Dose 100 MG; Start 11/04/18 at 21:00 Bisacodyl (Dulcolax Supp) 10 mg DAILY PRN [place] CONSTIPATION Last administered on 11/05/18at 12:21; Admin Dose 10 MG; Start 11/05/18 at 11:30 IV Flush (NS 10 ml) 10 ml PRN PRN IV IV PROTOCOL; Start 11/07/18 at 15:00 Levetiracetam (Keppra Liquid) 500 mg BID GTB Last administered on 11/19/18 09:40; Admin Dose 500 MG; Start 11/08/18 at 21:00 Ondansetron HCl (Zofran Inj) 4 mg Q6H PRN IV NAUSEA AND/OR VOMITING; Start 11/15/18 at 08:00 Acetaminophen (Tylenol Liquid) 650 mg Q4H PRN NGT MILD PAIN(1-3)OR ELEVATED TEMP Last administered on 11/15/18 08:03; Admin Dose 650 MG; Start 11/15/18 at 08:00 Diltiazem HCl 125 ml @ 5 mls/hr TITRATE IV Last administered on 11/15/18 09:17; Admin Dose 5 MLS/HR; Start 11/15/18 at 10:00; Status Hold Cefepime HCl 50 ml @ 100 mls/hr Q12 IVPB Last administered on 11/19/18at 09:40; Admin Dose 100 MLS/HR; Start 11/15/18 at 10:30 Levofloxacin/ Dextrose 150 ml @ 100 mls/hr Q24H IVPB Last administered on 11/19/18at 10:06; Admin Dose 100 MLS/HR; Start 11/15/18 at 10:30 Vancomycin HCl (Vanco Iv Per Pharmacy) VANCOMYCIN PER PHARMACY PER PROTOCOL XX ; Start 11/15/18 at 14:00 Metoprolol Tartrate (Lopressor) 50 mg BID PO Last administered on 11/19/18at 09:44; Admin Dose 50 MG; Start 11/15/18 at 21:00 Diltiazem HCl (Cardizem Iv) 5 mg Q4 PRN IV HR>110 Hold SBP<100; Start 11/15/18 at 18:30 Collagenase (Santyl) 1 applic BID TOP Last administered on 11/19/18at 09:41; Admin Dose 1 APPLIC; Start 11/16/18 at 21:00 Vancomycin HCl 1.25 gm/Sodium Chloride 250 ml @ 83.333 mls/ hr Q48H IVPB ; Start 11/19/18 at 14:00 IMER VARGAS Nov 19, 2018 12:36
[2018-11-19] MEDS ORDERED: SOD CHLORIDE 0.9% 250 ML IV* ONE (12:38)
[2018-11-19] MEDS ORDERED: VANCOMYCIN 1.25 GM in SOD CHLORIDE 0.9% 250 ML IVPB SCH (14:00)
--- NOTE | 2018-11-19 15:04 | CONS ---
Date/Time of Note Date/Time of Note DATE: 11/19/18 TIME: 15:02 Assessment/Plan Assessment/Plan Hospital Course Subjective: All noted, no fevers over night, looks comfortable Antimicrobials: Vancomycin, cefepime, levofloxacin Indwelling: Tracheostomy, NG tube, Damon catheter, peripheral IV Physical examination: Chronically ill-appearing elderly woman who is awake nonverbal noncommunicative and in no distress. Head atraumatic normocephalic sclera nonicteric. Neck is supple, tracheostomy present. Chest rise symme trical, breath sounds diminished bases. Heart: S1-S2. Abdomen soft bowel sounds present. Extremities with trace edema. Assessment: 1. Fevers, possibly nosocomial sepsis ?aspirated==> resolved 2. Bacteremia, blood culture growing gram-positive cocci in clusters 3. Acute encephalopathy secondary to CVA 4. Status post urinary tract infection 5. Seizure disorder, status post status epilepticus 6. MRSA nares colonization 7. Atrial fibrillation 8. Status post healthcare associated pneumonia 9. Bilateral superficial venous thrombus within the cephalic veins. Plan: Clinically stable, repeat bld cultures neg, continue abx, f/u cxr in am Result Diagram: 11/19/18 0459 11/19/18 0459 Results 24hrs Laboratory Tests Test 11/19/18 04:59 White Blood Count 5.4 Red Blood Count 2.31 L Hemoglobin 7.2 L Hematocrit 24.1 L Mean Corpuscular Volume 104.3 H Mean Corpuscular Hemoglobin 31.2 Mean Corpuscular Hemoglobin Concent 29.9 L Red Cell Distribution Width 16.1 H Platelet Count 231 Mean Platelet Volume 10.1 Immature Granulocytes % 1.700 H Neutrophils % 69.6 Lymphocytes % 20.7 Monocytes % 6.3 Eosinophils % 1.5 Basophils % 0.2 Nucleated Red Blood Cells % 0.0 Immature Granulocytes # 0.090 H Neutrophils # 3.8 Lymphocytes # 1.1 Monocytes # 0.3 Eosinophils # 0.1 Basophils # 0.0 Nucleated Red Blood Cells # 0.0 Sodium Level 140 Potassium Level 4.5 Chloride Level 106 Carbon Dioxide Level 29 Anion Gap 5 Blood Urea Nitrogen 27 H Creatinine 0.92 Est Glomerular Filtrat Rate mL/min Glucose Level 109 Calcium Level 8.9 Consultation Date/Type/Reason Admit Date/Time Oct 27, 2018 at 08:14 Initial Consult Date 10/28/18 Type of Consult ID Requesting Provider: JAYLEN LUGO MD Exam/Review of Systems Vital Signs Vitals Vital Signs Date Temp Pulse Resp B/P (MAP) Pulse Ox O2 O2 Flow FiO2 Time Delivery Rate 11/19/18 97.5 100 22 137/76 96 Mechanical 14:00 (96) Ventilator 11/19/18 30 09:00 Intake and Output 11/18/18 11/18/18 11/19/18 1414:59 22:59 06:59 IntakeIntake Total 950 ml 1110 ml OutputOutput Total 800 ml 1200 ml BalanceBalance 150 ml -90 ml Medications Medications Current Medications Acetaminophen (Tylenol Supp) 650 mg Q6H PRN [place] FEVER GREATER THAN 100.6 Last administered on 10/28/18 03:07; Admin Dose 650 MG; Start 10/28/18 at 02:30 Hydralazine HCl (Apresoline) 10 mg Q4H PRN IV SBP>170; Start 10/28/18 at 11:00 Mupirocin (Bactroban) 1 applic BID TOP Last administered on 11/19/18 09:41; Admin Dose 1 APPLIC; Start 10/28/18 at 21:00 Levalbuterol (Xopenex Neb) 1.25 mg Q6H RESP THERAPY HHN Last administered on 11/19/18 13:33; Admin Dose 1.25 MG; Start 10/29/18 at 08:00 Budesonide (Pulmicort (Neb)) 0.5 mg BID RESP THERAPY HHN Last administered on 11/19/18 08:53; Admin Dose 0.5 MG; Start 10/29/18 at 09:00 Ipratropium [place] (Atrovent 0.02% (Neb)) 0.5 mg Q6H RESP THERAPY HHN Last administered on 11/19/18 13:33; Admin Dose 0.5 MG; Start 10/29/18 at 08:00 Lansoprazole (Prevacid) 30 mg DAILY@06 GTB Last administered on 11/19/18 05:22; Admin Dose 30 MG; Start 10/31/18 at 06:00 Sodium Phosphate (Neutra-Phos) 250 mg BID PO Last administered on 11/19/18 09:41; Admin Dose 250 MG; Start 11/01/18 at 09:00 Apixaban (Eliquis) 2.5 mg BID PO Last administered on 11/19/18 09:41; Admin Dose 2.5 MG; Start 11/02/18 at 09:00 Morphine Sulfate (morphine) 15 mg Q4H PRN PO SEVERE PAIN LEVEL 7-10; Start 11/04/18 at 14:30 Lorazepam (Ativan) 1 mg Q6H PRN IV SEIZURES; Start 11/04/18 at 15:00 Lorazepam (Ativan) 1 mg Q6H PRN PO ANXIETY Last administered on 11/18/18 21:08; Admin Dose 1 MG; Start 11/04/18 at 15:00 Docusate Sodium (Colace Liquid Cup) 100 mg BID NGT Last administered on 11/19/18 09:40; Admin Dose 100 MG; Start 11/04/18 at 21:00 Bisacodyl (Dulcolax Supp) 10 mg DAILY PRN [place] CONSTIPATION Last administered on 11/05/18at 12:21; Admin Dose 10 MG; Start 11/05/18 at 11:30 IV Flush (NS 10 ml) 10 ml PRN PRN IV IV PROTOCOL; Start 11/07/18 at 15:00 Levetiracetam (Keppra Liquid) 500 mg BID GTB Last administered on 11/19/18 09:40; Admin Dose 500 MG; Start 11/08/18 at 21:00 Ondansetron HCl (Zofran Inj) 4 mg Q6H PRN IV NAUSEA AND/OR VOMITING; Start 11/15/18 at 08:00 Acetaminophen (Tylenol Liquid) 650 mg Q4H PRN NGT MILD PAIN(1-3)OR ELEVATED TEMP Last administered on 11/15/18 08:03; Admin Dose 650 MG; Start 11/15/18 at 08:00 Diltiazem HCl 125 ml @ 5 mls/hr TITRATE IV Last administered on 11/15/18 09:17; Admin Dose 5 MLS/HR; Start 11/15/18 at 10:00; Status Hold Cefepime HCl 50 ml @ 100 mls/hr Q12 IVPB Last administered on 11/19/18 09:40; Admin Dose 100 MLS/HR; Start 11/15/18 at 10:30 Levofloxacin/ Dextrose 150 ml @ 100 mls/hr Q24H IVPB Last administered on 11/19/18at 10:06; Admin Dose 100 MLS/HR; Start 11/15/18 at 10:30 Vancomycin HCl (Vanco Iv Per Pharmacy) VANCOMYCIN PER PHARMACY PER PROTOCOL XX ; Start 11/15/18 at 14:00 Metoprolol Tartrate (Lopressor) 50 mg BID PO Last administered on 11/19/18at 09:44; Admin Dose 50 MG; Start 11/15/18 at 21:00 Diltiazem HCl (Cardizem Iv) 5 mg Q4 PRN IV HR>110 Hold SBP<100; Start 11/15/18 at 18:30 Collagenase (Santyl) 1 applic BID TOP Last administered on 11/19/18at 09:41; Admin Dose 1 APPLIC; Start 11/16/18 at 21:00 Vancomycin HCl 1.25 gm/Sodium Chloride 250 ml @ 83.333 mls/ hr Q48H IVPB ; Start 11/19/18 at 14:00 DEBO UMANA NP Nov 19, 2018 15:04
--- NOTE | 2018-11-19 15:45 | CONS ---
Assessment/Plan Assessment/Plan Hospital Course A: 73 yo F with reported Hx of afib, HTN, and other comorbidities...who presents with ams, tachyarrhythmia, and involuntary muscle jerking...for which neurology is consulted. The clinical picture was initially consistent w/ status epilepticus...which has since responded to AED Tx.. The pt was addtionally noted to be in afib with RVR on readmission, which raised concern for superimposed acute stroke. MRI brain confirmed acute multilobar infarcts. EEG was notable for frequent right hemispheric epileptiform discharges, which was clinically consistent with status epilepticus. Echo was unrevealing. Repeat CTH was unrevealing. P: Cont maintenance Keppra 500 BID for now Ativan iv for prolonged seizure > 5min or for cluster Continue Lipitor for secondary stroke prevention Eliquis OK for the same Other medical management and supportive care per primary Will follow clinically Result Diagram: 11/19/18 0459 11/19/18 0459 Results 24hrs Laboratory Tests Test 11/19/18 04:59 White Blood Count 5.4 Red Blood Count 2.31 L Hemoglobin 7.2 L Hematocrit 24.1 L Mean Corpuscular Volume 104.3 H Mean Corpuscular Hemoglobin 31.2 Mean Corpuscular Hemoglobin Concent 29.9 L Red Cell Distribution Width 16.1 H Platelet Count 231 Mean Platelet Volume 10.1 Immature Granulocytes % 1.700 H Neutrophils % 69.6 Lymphocytes % 20.7 Monocytes % 6.3 Eosinophils % 1.5 Basophils % 0.2 Nucleated Red Blood Cells % 0.0 Immature Granulocytes # 0.090 H Neutrophils # 3.8 Lymphocytes # 1.1 Monocytes # 0.3 Eosinophils # 0.1 Basophils # 0.0 Nucleated Red Blood Cells # 0.0 Sodium Level 140 Potassium Level 4.5 Chloride Level 106 Carbon Dioxide Level 29 Anion Gap 5 Blood Urea Nitrogen 27 H Creatinine 0.92 Est Glomerular Filtrat Rate mL/min Glucose Level 109 Calcium Level 8.9 Consultation Date/Type/Reason Admit Date/Time Oct 27, 2018 at 08:14 Type of Consult Neurology Requesting Provider: JAYLEN LUGO MD Date/Time of Note DATE: 11/19/18 TIME: 15:45 24 HR Interval Summary Free Text/Dictation Continues telemetry monitoring. No acute events or changes in pt condition reported. Subjective hx not possible: pt non-verbal Exam Vital Signs Vitals Vital Signs Date Temp Pulse Resp B/P (MAP) Pulse Ox O2 O2 Flow FiO2 Time Delivery Rate 11/19/18 97.5 100 22 137/76 96 Mechanical 14:00 (96) Ventilator 11/19/18 30 09:00 Intake and Output 11/18/18 11/18/18 11/19/18 1515:00 23:00 07:00 IntakeIntake Total 950 ml 1110 ml OutputOutput Total 800 ml 1200 ml BalanceBalance 150 ml -90 ml Exam PE: Gen Appearance: No Apparent Distress HEENT: Has trach, NGT Cardiovascular: SR on telemetry Abdomen: Soft Extremities: Dry NE: The patient was awake and alert though nonverbal, d/t trach, however pt was able to mouth words. Was blinking spontaneously. The pt intermittently followed appendicular commands. Cranial nerve examination was limited by mental status. Pupils were equal, round and briskly reactive to light. There was no afferent pupillary defect. Funduscopic examination was limited. Face was grossly symmetric, w/ a present cough/gag reflex. Tone was increased in her upper extremities . Muscle bulk was slightly diminished. I did not see fasciculations. The patient moved her upper extremities spontaneously and withdrew her lowers extremities to noxious stimuli . Coordination and gait testing was limited by mental status. Arm and leg reflexes were symmetric. Doshi's sign was absent. Plantar responses were flexor. JOE WYATT NP Nov 19, 2018 15:45 CHRISTIANA LARSON Nov 19, 2018 17:55
--- NOTE | 2018-11-19 18:13 | CONS ---
Date/Time of Note Date/Time of Note DATE: 11/19/18 TIME: 18:13 Assessment/Plan Assessment/Plan Hospital Course ANEMIA WITH COMPONENT ACD CONT TO MONITOR BLOOD COUNT CLOSELY OBSERVE FOR BLEEDING AND HEMOLYSIS NO INDICATIONS FOR TRANSFUSION Hypomagnesium- resolved [id number] respiratory failure. The patient's respiratory status has improved after he was dialyzed yesterday. The patient is breathing comfortably. Endstage renal disease. Continue hemodialysis as per Dr. Monique. Coronary artery disease. Continue aspirin and carvedilol. Cardiomyopathy. Continue aspirin, carvedilol and Eliquis. Dyslipidemia. The patient is already maxed out on Lipitor. Benign prostatic hypertrophy. Continue Flomax. Chronic obstructive pulmonary disease evaluation. Continue DuoNeb, Rocephin. Meanwhile, we will decrease Solu-Medrol to 20 daily. Diabetes. Out of control due to Solu-Medrol and also patient due to agitation and unpredictable p.o. intake was not given long-acting. The patient at home takes Tresiba. I will start him on Lantus. Acute psychosis. Continue p.r.n. Haldol. Chronic lower back pain. Continue [place] as needed. Result Diagram: 11/19/18 0459 11/19/18 0459 Results 24hrs Laboratory Tests Test 11/19/18 04:59 White Blood Count 5.4 Red Blood Count 2.31 L Hemoglobin 7.2 L Hematocrit 24.1 L Mean Corpuscular Volume 104.3 H Mean Corpuscular Hemoglobin 31.2 Mean Corpuscular Hemoglobin Concent 29.9 L Red Cell Distribution Width 16.1 H Platelet Count 231 Mean Platelet Volume 10.1 Immature Granulocytes % 1.700 H Neutrophils % 69.6 Lymphocytes % 20.7 Monocytes % 6.3 Eosinophils % 1.5 Basophils % 0.2 Nucleated Red Blood Cells % 0.0 Immature Granulocytes # 0.090 H Neutrophils # 3.8 Lymphocytes # 1.1 Monocytes # 0.3 Eosinophils # 0.1 Basophils # 0.0 Nucleated Red Blood Cells # 0.0 Sodium Level 140 Potassium Level 4.5 Chloride Level 106 Carbon Dioxide Level 29 Anion Gap 5 Blood Urea Nitrogen 27 H Creatinine 0.92 Est Glomerular Filtrat Rate mL/min Glucose Level 109 Calcium Level 8.9 Consultation Date/Type/Reason Admit Date/Time Oct 27, 2018 at 08:14 Initial Consult Date 10/28/18 Type of Consult [facility] Requesting Provider: JAYLEN LUGO MD 24 HR Interval Summary Free Text/Dictation NAD Exam/Review of Systems Vital Signs Vitals Vital Signs Date Temp Pulse Resp B/P (MAP) Pulse Ox O2 O2 Flow FiO2 Time Delivery Rate 11/19/18 95 20 100 30 17:10 11/19/18 98.0 135/56 Room Air 16:00 (82) Intake and Output 11/18/18 11/18/18 11/19/18 1515:00 23:00 07:00 IntakeIntake Total 950 ml 1110 ml OutputOutput Total 800 ml 1200 ml BalanceBalance 150 ml -90 ml Exam Constitutional: non-verbal Psych: nl mood/affect Eyes: nl conjunctiva, nl lids, nl sclera ENMT: nl external ears & nose Neck: other Respiratory: diminished breath sounds Cardiovascular: nl pulses, other Gastrointestinal: soft, other Musculoskeletal: muscle weakness, range of motion Extremities: normal pulses Neurological: lethargic Lymph: nontender Medications Medications Current Medications Acetaminophen (Tylenol Supp) 650 mg Q6H PRN [place] FEVER GREATER THAN 100.6 Last administered on 10/28/18at 03:07; Admin Dose 650 MG; Start 10/28/18 at 02:30 Hydralazine HCl (Apresoline) 10 mg Q4H PRN IV SBP>170; Start 10/28/18 at 11:00 Mupirocin (Bactroban) 1 applic BID TOP Last administered on 11/19/18 09:41; Admin Dose 1 APPLIC; Start 10/28/18 at 21:00 Levalbuterol (Xopenex Neb) 1.25 mg Q6H RESP THERAPY HHN Last administered on 11/19/18 13:33; Admin Dose 1.25 MG; Start 10/29/18 at 08:00 Budesonide (Pulmicort (Neb)) 0.5 mg BID RESP THERAPY HHN Last administered on 11/19/18 08:53; Admin Dose 0.5 MG; Start 10/29/18 at 09:[address] (Atrovent 0.02% (Neb)) 0.5 mg Q6H RESP THERAPY HHN Last administered on 11/19/18 13:33; Admin Dose 0.5 MG; Start 10/29/18 at 08:00 Lansoprazole (Prevacid) 30 mg DAILY@06 GTB Last administered on 11/19/18 05:22; Admin Dose 30 MG; Start 10/31/18 at 06:00 Sodium Phosphate (Neutra-Phos) 250 mg BID PO Last administered on 11/19/18 09:41; Admin Dose 250 MG; Start 11/01/18 at 09:00 Apixaban (Eliquis) 2.5 mg BID PO Last administered on 11/19/18 09:41; Admin Dose 2.5 MG; Start 11/02/18 at 09:00 Morphine Sulfate (morphine) 15 mg Q4H PRN PO SEVERE PAIN LEVEL 7-10; Start 11/04/18 at 14:30 Lorazepam (Ativan) 1 mg Q6H PRN IV SEIZURES; Start 11/04/18 at 15:00 Lorazepam (Ativan) 1 mg Q6H PRN PO ANXIETY Last administered on 11/18/18 21:08; Admin Dose 1 MG; Start 11/04/18 at 15:00 Docusate Sodium (Colace Liquid Cup) 100 mg BID NGT Last administered on 11/19/18 09:40; Admin Dose 100 MG; Start 11/04/18 at 21:00 Bisacodyl (Dulcolax Supp) 10 mg DAILY PRN [place] CONSTIPATION Last administered on 11/05/18at 12:21; Admin Dose 10 MG; Start 11/05/18 at 11:30 IV Flush (NS 10 ml) 10 ml PRN PRN IV IV PROTOCOL; Start 11/07/18 at 15:00 Levetiracetam (Keppra Liquid) 500 mg BID GTB Last administered on 11/19/18 09:40; Admin Dose 500 MG; Start 11/08/18 at 21:00 Ondansetron HCl (Zofran Inj) 4 mg Q6H PRN IV NAUSEA AND/OR VOMITING; Start 11/15/18 at 08:00 Acetaminophen (Tylenol Liquid) 650 mg Q4H PRN NGT MILD PAIN(1-3)OR ELEVATED TEMP Last administered on 11/15/18 08:03; Admin Dose 650 MG; Start 11/15/18 at 08:00 Diltiazem HCl 125 ml @ 5 mls/hr TITRATE IV Last administered on 11/15/18 09:17; Admin Dose 5 MLS/HR; Start 11/15/18 at 10:00; Status Hold Cefepime HCl 50 ml @ 100 mls/hr Q12 IVPB Last administered on 11/19/18 09:40; Admin Dose 100 MLS/HR; Start 11/15/18 at 10:30 Levofloxacin/ Dextrose 150 ml @ 100 mls/hr Q24H IVPB Last administered on 11/19/18 10:06; Admin Dose 100 MLS/HR; Start 11/15/18 at 10:30 Vancomycin HCl (Vanco Iv Per Pharmacy) VANCOMYCIN PER PHARMACY PER PROTOCOL XX ; Start 11/15/18 at 14:00 Metoprolol Tartrate (Lopressor) 50 mg BID PO Last administered on 11/19/18 09:44; Admin Dose 50 MG; Start 11/15/18 at 21:00 Diltiazem HCl (Cardizem Iv) 5 mg Q4 PRN IV HR>110 Hold SBP<100; Start 11/15/18 at 18:30 Collagenase (Santyl) 1 applic BID TOP Last administered on 11/19/18 09:41; Admin Dose 1 APPLIC; Start 11/16/18 at 21:00 Vancomycin HCl 1.25 gm/Sodium Chloride 250 ml @ 83.333 mls/ hr Q48H IVPB Last administered on 11/19/18 15:51; Admin Dose 83.333 MLS/HR; Start 11/19/18 at 14:00 WENDIE BARILLAS MD Nov 19, 2018 18:13
[2018-11-20] VITALS (22 sets, daily range): BP systolic 115–155; BP diastolic 53–85; PULSE 74–114; RESP 18–28
[2018-11-20] MEDS: IPRATROPIUM (NEB) 0.5 MG/2.5 ML AMP HHN SCH ×4 (02:18→19:35)
[2018-11-20] MEDS: LEVALBUTEROL (NEB) 1.25 MG/0.5 ML AMP HHN SCH ×4 (02:18→19:35)
[2018-11-20] MEDS: LANSOPRAZOLE 30 MG CAP GTB SCH (05:28)
[2018-11-20] MEDS: BUDESONIDE (NEB) 0.5MG/2ML AMP HHN SCH ×2 (08:02→19:35)
--- NOTE | 2018-11-20 08:23 | PN ---
DATE: 11/20/2018 SUBJECTIVE: The patient is stable. No events overnight. OBJECTIVE: VITAL SIGNS: Blood pressure is 140/63, respiration 22, pulse 77, temperature 98.5. HEENT: Head is normocephalic. NECK: Supple. HEART: Regular rate. LUNGS: Show diminished breath sounds at the base. ABDOMEN: Soft, nontender to palpation, no rebound or guarding. EXTREMITIES: Negative for clubbing, cyanosis, no edema. DERMATOLOGIC: No rashes. MUSCULOSKELETAL: No joint effusion. NEUROLOGIC: No change in exam. MEDICATIONS: Reviewed. LABORATORY DATA: From 11/20/2018 was reviewed. ASSESSMENT AND PLAN: 1. Nonoliguric acute kidney injury. Etiology of acute kidney injury is secondary to hemodynamics. Renal functions improved. Continue current treatment plans, supportive care, renally dose all meds. 2. Hypernatremia, improved. Continue free water flushes. 3. Acute diastolic heart failure. The patient appears to be near euvolemic status. Continue interm ittent diuretic therapy as needed. 4. Anemia. Monitor hemoglobin and hematocrit levels. 5. Mineral bone disorder, monitor calcium and phosphorus levels. 6. Atrial fibrillation. Continue medical management. 7. Ventilator-dependent respiratory failure. Vent settings and ABG was reviewed. Continue to monit or. 8. Dysphagia. Continue tube feeding. 9. Seizure disorder. Continue current treatment plan. 10. Sepsis. Patient has completed antibiotic course. 11. Encephalopathy. 12. History of cerebrovascular accident. Dictated By: RAJINDER WATTS/MONROE Conf#: [id number] DID#: [id number]
[2018-11-20] MEDS: DOCUSATE SODIUM 10 MG/ML (10ML CUP) NGT SCH (08:53)
[2018-11-20] MEDS: METOPROLOL 50 MG TAB PO SCH (08:53)
[2018-11-20] MEDS: CEFEPIME 2GM/50 ML (PMX) 50 ML IVPB SCH (08:53)
[2018-11-20] MEDS: APIXABAN 5 MG TABLET PO SCH (08:53)
[2018-11-20] MEDS: NEUTRA-PHOS 250 MG PACKET PO SCH (08:53)
[2018-11-20] MEDS: LEVETIRACETAM (100 MG/ML) 5ML CUP GTB SCH (08:53)
[2018-11-20] MEDS: COLLAGENASE 5 GM (UD JAR) TOP SCH (08:54)
[2018-11-20] MEDS: BALSAM PERU/CASTOR OIL 60 GM TUBE TOP SCH (08:54)
[2018-11-20] MEDS: MUPIROCIN 2% 22 GM OINT TOP SCH (08:54)
[2018-11-20] MEDS: LEVOFLOXACIN 750MG/D5W (PMX) 150 ML IVPB SCH (09:48)
--- NOTE | 2018-11-20 11:35 | CONS ---
Date/Time of Note Date/Time of Note DATE: 11/20/18 TIME: 11:35 Assessment/Plan Assessment/Plan Hospital Course ANEMIA WITH COMPONENT ACD CONT TO MONITOR BLOOD COUNT CLOSELY OBSERVE FOR BLEEDING AND HEMOLYSIS NO INDICATIONS FOR TRANSFUSION Hypomagnesium- resolved Usmcz-le-[id number] respiratory failure. The patient's respiratory status has improved after he was dialyzed yesterday. The patient is breathing comfortably. Endstage renal disease. Continue hemodialysis as per Dr. Monique. Coronary artery disease. Continue aspirin and carvedilol. Cardiomyopathy. Continue aspirin, carvedilol and Eliquis. Dyslipidemia. The patient is already maxed out on Lipitor. Benign prostatic hypertrophy. Continue Flomax. Chronic obstructive pulmonary disease evaluation. Continue DuoNeb, Rocephin. Meanwhile, we will decrease Solu-Medrol to 20 daily. Diabetes. Out of control due to Solu-Medrol and also patient due to agitation and unpredictable p.o. intake was not given long-acting. The patient at home takes Tresiba. I will start him on Lantus. Acute psychosis. Continue p.r.n. Haldol. Chronic lower back pain. Continue Sharon as needed. Result Diagram: 11/20/1852311/20/18523 Results 24hrs Laboratory Tests Test 11/20/18 05:24 11/20/18 07:43 White Blood Count 5.9 Red Blood Count 2.68 L Hemoglobin 8.2 L Hematocrit 27.1 L Mean Corpuscular Volume 101.1 H Mean Corpuscular Hemoglobin 30.6 Mean Corpuscular Hemoglobin Concent 30.3 L Red Cell Distribution Width 17.6 H Platelet Count 234 Mean Platelet Volume 9.9 Immature Granulocytes % 4.100 H Neutrophils % 67.9 Lymphocytes % 20.6 Monocytes % 5.9 Eosinophils % 1.2 Basophils % 0.3 Nucleated Red Blood Cells % 0.0 Immature Granulocytes # 0.240 H Neutrophils # 4.0 Lymphocytes # 1.2 Monocytes # 0.4 Eosinophils # 0.1 Basophils # 0.0 Nucleated Red Blood Cells # 0.0 Sodium Level 141 Potassium Level 4.2 Chloride Level 107 Carbon Dioxide Level 26 Anion Gap 8 Blood Urea Nitrogen 26 H Creatinine 0.91 Est Glomerular Filtrat Rate mL/min Glucose Level 102 Calcium Level 9.0 Lab Scanned Report BLOOD TRANSFUSION Consultation Date/Type/Reason Admit Date/Time Oct 27, 2018 at 08:14 Initial Consult Date 10/28/18 Type of Consult [facility] Requesting Provider: JAYLEN LUGO MD 24 HR Interval Summary Free Text/Dictation all noted Exam/Review of Systems Vital Signs Vitals Vital Signs Date Temp Pulse Resp B/P (MAP) Pulse Ox O2 O2 Flow FiO2 Time Delivery Rate 11/20/18 92 28 99 30 10:39 11/20/18 98.3 146/63 08:35 (90) 11/19/18 Mechanical 18:00 Ventilator Intake and Output 11/19/18 11/19/18 11/20/18 1515:00 23:00 07:00 IntakeIntake Total 200 ml 1200 ml 1450 ml OutputOutput Total 1000 ml 900 ml BalanceBalance 200 ml 200 ml 550 ml Exam Constitutional: non-verbal Psych: nl mood/affect Eyes: nl conjunctiva, nl lids, nl sclera ENMT: nl external ears & nose Neck: other Respiratory: diminished breath sounds Cardiovascular: nl pulses, other Gastrointestinal: soft, other Musculoskeletal: muscle weakness, range of motion Extremities: normal pulses Neurological: lethargic Lymph: nontender Medications Medications Current Medications Acetaminophen (Tylenol Supp) 650 mg Q6H PRN [place] FEVER GREATER THAN 100.6 Last administered on 10/28/18at 03:07; Admin Dose 650 MG; Start 10/28/18 at 02:30 Hydralazine HCl (Apresoline) 10 mg Q4H PRN IV SBP>170; Start 10/28/18 at 11:00 Mupirocin (Bactroban) 1 applic BID TOP Last administered on 11/20/18 08:54; Admin Dose 1 APPLIC; Start 10/28/18 at 21:00 Levalbuterol (Xopenex Neb) 1.25 mg Q6H RESP THERAPY HHN Last administered on 11/20/18 08:02; Admin Dose 1.25 MG; Start 10/29/18 at 08:00 Budesonide (Pulmicort (Neb)) 0.5 mg BID RESP THERAPY HHN Last administered on 11/20/18 08:02; Admin Dose 0.5 MG; Start 10/29/18 at 09:00 Ipratropium [place] (Atrovent 0.02% (Neb)) 0.5 mg Q6H RESP THERAPY HHN Last administered on 11/20/18 08:02; Admin Dose 0.5 MG; Start 10/29/18 at 08:00 Lansoprazole (Prevacid) 30 mg DAILY@06 GTB Last administered on 11/20/18 05:28; Admin Dose 30 MG; Start 10/31/18 at 06:00 Sodium Phosphate (Neutra-Phos) 250 mg BID PO Last administered on 11/20/18 08:53; Admin Dose 250 MG; Start 11/01/18 at 09:00 Apixaban (Eliquis) 2.5 mg BID PO Last administered on 11/20/18 08:53; Admin Dose 2.5 MG; Start 11/02/18 at 09:00 Morphine Sulfate (morphine) 15 mg Q4H PRN PO SEVERE PAIN LEVEL 7-10; Start 11/04/18 at 14:30 Lorazepam (Ativan) 1 mg Q6H PRN IV SEIZURES; Start 11/04/18 at 15:00 Lorazepam (Ativan) 1 mg Q6H PRN PO ANXIETY Last administered on 11/18/18 21:08; Admin Dose 1 MG; Start 11/04/18 at 15:00 Docusate Sodium (Colace Liquid Cup) 100 mg BID NGT Last administered on 11/20/18 08:53; Admin Dose 100 MG; Start 11/04/18 at 21:00 Bisacodyl (Dulcolax Supp) 10 mg DAILY PRN [place] CONSTIPATION Last administered on 11/05/18at 12:21; Admin Dose 10 MG; Start 11/05/18 at 11:30 IV Flush (NS 10 ml) 10 ml PRN PRN IV IV PROTOCOL; Start 11/07/18 at 15:00 Levetiracetam (Keppra Liquid) 500 mg BID GTB Last administered on 11/20/18 08:53; Admin Dose 500 MG; Start 11/08/18 at 21:00 Ondansetron HCl (Zofran Inj) 4 mg Q6H PRN IV NAUSEA AND/OR VOMITING; Start 11/15 at 08:00 Acetaminophen (Tylenol Liquid) 650 mg Q4H PRN NGT MILD PAIN(1-3)OR ELEVATED TEMP Last administered on 11/15/18 08:03; Admin Dose 650 MG; Start 11/15/18 at 08:00 Diltiazem HCl 125 ml @ 5 mls/hr TITRATE IV Last administered on 11/15/18 09:17; Admin Dose 5 MLS/HR; Start 11/15/18 at 10:00; Status Hold Cefepime HCl 50 ml @ 100 mls/hr Q12 IVPB Last administered on 11/20/18 08:53; Admin Dose 100 MLS/HR; Start 11/15/18 at 10:30 Levofloxacin/ Dextrose 150 ml @ 100 mls/hr Q24H IVPB Last administered on 11/20/18 09:48; Admin Dose 100 MLS/HR; Start 11/15/18 at 10:30 Vancomycin HCl (Vanco Iv Per Pharmacy) VANCOMYCIN PER PHARMACY PER PROTOCOL XX ; Start 11/15/18 at 14:00 Metoprolol Tartrate (Lopressor) 50 mg BID PO Last administered on 11/20/18 08:53; Admin Dose 50 MG; Start 11/15/18 at 21:00 Diltiazem HCl (Cardizem Iv) 5 mg Q4 PRN IV HR>110 Hold SBP<100; Start 11/15/18 at 18:30 Collagenase (Santyl) 1 applic BID TOP Last administered on 11/20/18 08:54; Admin Dose 1 APPLIC; Start 11/16/18 at 21:00 Vancomycin HCl 1.25 gm/Sodium Chloride 250 ml @ 83.333 mls/ hr Q48H IVPB Last administered on 11/19/18at 15:51; Admin Dose 83.333 MLS/HR; Start 11/19/18 at 14:00 WENDIE BARILLAS MD Nov 20, 2018 11:35
--- NOTE | 2018-11-20 13:50 | CONS ---
Assessment/Plan Assessment/Plan Hospital Course A: 73 yo F with reported Hx of afib, HTN, and other comorbidities...who presents with ams, tachyarrhythmia, and involuntary muscle jerking...for which neurology is consulted. The clinical picture was initially consistent w/ status epilepticus...which has since responded to AED Tx.. The pt was addtionally noted to be in afib with RVR on readmission, which raised concern for superimposed acute stroke. MRI brain confirmed acute multilobar infarcts. EEG was notable for frequent right hemispheric epileptiform discharges, which was clinically consistent with status epilepticus. Echo was unrevealing. Repeat CTH was unrevealing. P: Cont maintenance Keppra 500 BID for now Ativan iv for prolonged seizure > 5min or for cluster Continue Lipitor for secondary stroke prevention Eliquis OK for the same Other medical management and supportive care per primary Will follow clinically Result Diagram: 11/20/18 0524 11/20/18 0524 Results 24hrs Laboratory Tests Test 11/20/18 05:24 11/20/18 07:43 White Blood Count 5.9 Red Blood Count 2.68 L Hemoglobin 8.2 L Hematocrit 27.1 L Mean Corpuscular Volume 101.1 H Mean Corpuscular Hemoglobin 30.6 Mean Corpuscular Hemoglobin Concent 30.3 L Red Cell Distribution Width 17.6 H Platelet Count 234 Mean Platelet Volume 9.9 Immature Granulocytes % 4.100 H Neutrophils % 67.9 Lymphocytes % 20.6 Monocytes % 5.9 Eosinophils % 1.2 Basophils % 0.3 Nucleated Red Blood Cells % 0.0 Immature Granulocytes # 0.240 H Neutrophils # 4.0 Lymphocytes # 1.2 Monocytes # 0.4 Eosinophils # 0.1 Basophils # 0.0 Nucleated Red Blood Cells # 0.0 Sodium Level 141 Potassium Level 4.2 Chloride Level 107 Carbon Dioxide Level 26 Anion Gap 8 Blood Urea Nitrogen 26 H Creatinine 0.91 Est Glomerular Filtrat Rate mL/min Glucose Level 102 Calcium Level 9.0 Lab Scanned Report BLOOD TRANSFUSION Consultation Date/Type/Reason Admit Date/Time Oct 27, 2018 at 08:14 Type of Consult Neurology Requesting Provider: JAYLEN LUGO MD Date/Time of Note DATE: 11/20/18 TIME: 13:50 24 HR Interval Summary Free Text/Dictation Continues telemetry monitoring. No acute events or changes in pt condition reported. Exam Vital Signs Vitals Vital Signs Date Temp Pulse Resp B/P (MAP) Pulse Ox O2 O2 Flow FiO2 Time Delivery Rate 11/20/18 91 20 99 30 13:07 11/20/18 99.0 148/85 11:49 (106) 11/19/18 Mechanical 18:00 Ventilator Intake and Output 11/19/18 11/19/18 11/20/18 1515:00 23:00 07:00 IntakeIntake Total 200 ml 1200 ml 1450 ml OutputOutput Total 1000 ml 900 ml BalanceBalance 200 ml 200 ml 550 ml Exam PE: Gen Appearance: No Apparent Distress HEENT: Has trach, NGT Cardiovascular: SR on telemetry Abdomen: Soft Extremities: Dry NE: The patient was awake and alert though nonverbal, d/t trach, however pt was able to mouth words. Was blinking spontaneously. The pt intermittently followed appendicular commands. Cranial nerve examination was limited by mental status. Pupils were equal, round and briskly reactive to light. There was no afferent pupillary defect. Funduscopic examination was limited. Face was grossly symmetric, w/ a present cough/gag reflex. Tone was increased in her upper extremities . Muscle bulk was slightly diminished. I did not see fasciculations. The patient moved her upper extremities spontaneously and withdrew her lowers extremities to noxious stimuli. Coordination and gait testing was limited by mental status. Arm and leg reflexes were symmetric. Doshi's sign was absent. Plantar re sponses were flexor. JOE WYATT NP Nov 20, 2018 13:50
--- NOTE | 2018-11-20 14:29 | CONS ---
Date/Time of Note Date/Time of Note DATE: 11/20/18 TIME: 14:28 Assessment/Plan Assessment/Plan Hospital Course Subjective: Awake, looks comfortable, no fevers, repeat bld cx + Antimicrobials: Vancomycin, cefepime, levofloxacin Indwelling: Tracheostomy, NG tube, Damon catheter, peripheral IV Physical examination: Chronically ill-appearing elderly woman who is awake nonverbal noncommunicative and in no distress. Head atraumatic normocephalic sclera nonicteric. Neck is supple, tracheostomy present. Chest rise sym metrical, breath sounds diminished bases. Heart: S1-S2. Abdomen soft bowel sounds present. Extremities with trace edema. Assessment: 1. Fevers, possibly nosocomial sepsis ?aspirated==> resolved 2. Bacteremia, blood culture growing gram-positive cocci in clusters 3. Acute encephalopathy secondary to CVA 4. Status post urinary tract infection 5. Seizure disorder, status post status epilepticus 6. MRSA nares colonization 7. Atrial fibrillation 8. Status post healthcare associated pneumonia 9. Bilateral superficial venous thrombus within the cephalic veins. Plan: Clinically stable, cxr noted, repeat bld cultures +, continue abx, dc PICC Result Diagram: 11/20/1852311/20/1824 Results 24hrs Laboratory Tests Test 11/20/18 05:24 11/20/18 07:43 White Blood Count 5.9 Red Blood Count 2.68 L Hemoglobin 8.2 L Hematocrit 27.1 L Mean Corpuscular Volume 101.1 H Mean Corpuscular Hemoglobin 30.6 Mean Corpuscular Hemoglobin Concent 30.3 L Red Cell Distribution Width 17.6 H Platelet Count 234 Mean Platelet Volume 9.9 Immature Granulocytes % 4.100 H Neutrophils % 67.9 Lymphocytes % 20.6 Monocytes % 5.9 Eosinophils % 1.2 Basophils % 0.3 Nucleated Red Blood Cells % 0.0 Immature Granulocytes # 0.240 H Neutrophils # 4.0 Lymphocytes # 1.2 Monocytes # 0.4 Eosinophils # 0.1 Basophils # 0.0 Nucleated Red Blood Cells # 0.0 Sodium Level 141 Potassium Level 4.2 Chloride Level 107 Carbon Dioxide Level 26 Anion Gap 8 Blood Urea Nitrogen 26 H Creatinine 0.91 Est Glomerular Filtrat Rate mL/min Glucose Level 102 Calcium Level 9.0 Lab Scanned Report BLOOD TRANSFUSION Consultation Date/Type/Reason Admit Date/Time Oct 27, 2018 at 08:14 Initial Consult Date 10/28/18 Type of Consult ID Requesting Provider: JAYLEN LUGO MD Exam/Review of Systems Vital Signs Vitals Vital Signs Date Temp Pulse Resp B/P (MAP) Pulse Ox O2 O2 Flow FiO2 Time Delivery Rate 11/20/18 91 20 99 30 13:07 11/20/18 99.0 148/85 11:49 (106) 11/19/18 Mechanical 18:00 Ventilator Intake and Output 11/19/18 11/19/18 11/20/18 1515:00 23:00 07:00 IntakeIntake Total 200 ml 1200 ml 1450 ml OutputOutput Total 1000 ml 900 ml BalanceBalance 200 ml 200 ml 550 ml Medications Medications Current Medications Acetaminophen (Tylenol Supp) 650 mg Q6H PRN [place] FEVER GREATER THAN 100.6 Last administered on 10/28/18at 03:07; Admin Dose 650 MG; Start 10/28/18 at 02:30 Hydralazine HCl (Apresoline) 10 mg Q4H PRN IV SBP>170; Start 10/28/18 at 11:00 Mupirocin (Bactroban) 1 applic BID TOP Last administered on 11/20/18 08:54; Admin Dose 1 APPLIC; Start 10/28/18 at 21:00 Levalbuterol (Xopenex Neb) 1.25 mg Q6H RESP THERAPY HHN Last administered on 13:06; Admin Dose 1.25 MG; Start 10/29/18 at 08:00 Budesonide (Pulmicort (Neb)) 0.5 mg BID RESP THERAPY HHN Last administered on 11/20/18 08:02; Admin Dose 0.5 MG; Start 10/29/18 at 09:00 Ipratropium [place] (Atrovent 0.02% (Neb)) 0.5 mg Q6H RESP THERAPY HHN Last administered on 11/20/18 13:06; Admin Dose 0.5 MG; Start 10/29/18 at 08:00 Lansoprazole (Prevacid) 30 mg DAILY@06 GTB Last administered on 11/20/18 05:28; Admin Dose 30 MG; Start 10/31/18 at 06:00 Sodium Phosphate (Neutra-Phos) 250 mg BID PO Last administered on 11/20/18 08:53; Admin Dose 250 MG; Start 11/01/18 at 09:00 Apixaban (Eliquis) 2.5 mg BID PO Last administered on 11/20/18 08:53; Admin Dose 2.5 MG; Start 11/02/18 at 09:00 Morphine Sulfate (morphine) 15 mg Q4H PRN PO SEVERE PAIN LEVEL 7-10; Start at 14:30 Lorazepam (Ativan) 1 mg Q6H PRN IV SEIZURES; Start 11/04/18 at 15:00 Lorazepam (Ativan) 1 mg Q6H PRN PO ANXIETY Last administered on 11/18/18 21:08; Admin Dose 1 MG; Start 11/04/18 at 15:00 Docusate Sodium (Colace Liquid Cup) 100 mg BID NGT Last administered on 11/20/18 08:53; Admin Dose 100 MG; Start 11/04/18 at 21:00 Bisacodyl (Dulcolax Supp) 10 mg DAILY PRN [place] CONSTIPATION Last administered on 11/05/18at 12:21; Admin Dose 10 MG; Start 11/05/18 at 11:30 IV Flush (NS 10 ml) 10 ml PRN PRN IV IV PROTOCOL; Start 11/07/18 at 15:00 Levetiracetam (Keppra Liquid) 500 mg BID GTB Last administered on 11/20/18 08:53; Admin Dose 500 MG; Start 11/08/18 at 21:00 Ondansetron HCl (Zofran Inj) 4 mg Q6H PRN IV NAUSEA AND/OR VOMITING; Start 11/15/18 at 08:00 Acetaminophen (Tylenol Liquid) 650 mg Q4H PRN NGT MILD PAIN(1-3)OR ELEVATED TEMP Last administered on 11/15/18 08:03; Admin Dose 650 MG; Start 11/15/18 at 08:00 Diltiazem HCl 125 ml @ 5 mls/hr TITRATE IV Last administered on 11/15/18 09:17; Admin Dose 5 MLS/HR; Start 11/15/18 at 10:00; Status Hold Cefepime HCl 50 ml @ 100 mls/hr Q12 IVPB Last administered on 11/20/18 08:53; Admin Dose 100 MLS/HR; Start 11/15/18 at 10:30 Levofloxacin/ Dextrose 150 ml @ 100 mls/hr Q24H IVPB Last administered on 11/20/18at 09:48; Admin Dose 100 MLS/HR; Start 11/15/18 at 10:30 Vancomycin HCl (Vanco Iv Per Pharmacy) VANCOMYCIN PER PHARMACY PER PROTOCOL XX ; Start 11/15/18 at 14:00 Metoprolol Tartrate (Lopressor) 50 mg BID PO Last administered on 11/20/18at 08:53; Admin Dose 50 MG; Start 11/15/18 at 21:00 Diltiazem HCl (Cardizem Iv) 5 mg Q4 PRN IV HR>110 Hold SBP<100; Start 11/15/18 at 18:30 Collagenase (Santyl) 1 applic BID TOP Last administered on 11/20/18at 08:54; Admin Dose 1 APPLIC; Start 11/16/18 at 21:00 Vancomycin HCl 1.25 gm/Sodium Chloride 250 ml @ 83.333 mls/ hr Q48H IVPB Last administered on 11/19/18at 15:51; Admin Dose 83.333 MLS/HR; Start 11/19/18 at 14:00 DEBO UMANA NP Nov 20, 2018 14:29
--- NOTE | 2018-11-20 14:31 | CONS ---
Date/Time of Note Date/Time of Note DATE: 11/20/18 TIME: 14:28 Assessment/Plan Assessment/Plan Hospital Course IMPRESSION: 1. Atrial fibrillation with a rapid ventricular response.-now in SR and remains. Had SVT ths am in the setting of fevers, intially regular at 170-180. Improved after starting silt drip. ? AVNRT/AT-now back in AF 2. Abnormal electrocardiogram with ST depressions during atrial fibrillation with rapid ventricular response. 3. Altered mental state/encephalopathy. 4. Possible seizure-like activity. 5. Congestive heart failure, diastolic, chronic. 6. Hypertension. 7. Urinary tract infection. 8. Renal failure. 9. Leukocytosis. 10. bacteremia 11.fevers Recc: -Tele -Continue IVP BB PRN -continue PO BB and will add low dose CCD to assure good HR control -Continue eliquis -Continue abx's and f/u cx data -IVP PRN hydralazine -Continue bronchodilators -follow MS closely -Follow volume status closely Result Diagram: 11/20/18 0524 11/20/18 0524 Results 24hrs Laboratory Tests Test 11/20/18 05:24 11/20/18 07:43 White Blood Count 5.9 Red Blood Count 2.68 L Hemoglobin 8.2 L Hematocrit 27.1 L Mean Corpuscular Volume 101.1 H Mean Corpuscular Hemoglobin 30.6 Mean Corpuscular Hemoglobin Concent 30.3 L Red Cell Distribution Width 17.6 H Platelet Count 234 Mean Platelet Volume 9.9 Immature Granulocytes % 4.100 H Neutrophils % 67.9 Lymphocytes % 20.6 Monocytes % 5.9 Eosinophils % 1.2 Basophils % 0.3 Nucleated Red Blood Cells % 0.0 Immature Granulocytes # 0.240 H Neutrophils # 4.0 Lymphocytes # 1.2 Monocytes # 0.4 Eosinophils # 0.1 Basophils # 0.0 Nucleated Red Blood Cells # 0.0 Sodium Level 141 Potassium Level 4.2 Chloride Level 107 Carbon Dioxide Level 26 Anion Gap 8 Blood Urea Nitrogen 26 H Creatinine 0.91 Est Glomerular Filtrat Rate mL/min Glucose Level 102 Calcium Level 9.0 Lab Scanned Report BLOOD TRANSFUSION Consultation Date/Type/Reason Admit Date/Time Oct 27, 2018 at 08:14 Initial Consult Date 10/27/18 Type of Consult cardiology Reason for Consultation AF Requesting Provider: JAYLEN LUGO MD Exam/Review of Systems Vital Signs Vitals Vital Signs Date Temp Pulse Resp B/P (MAP) Pulse Ox O2 O2 Flow FiO2 Time Delivery Rate 11/20/18 91 20 99 30 13:07 11/20/18 99.0 148/85 11:49 (106) 11/19/18 Mechanical 18:00 Ventilator Intake and Output 11/19/18 11/19/18 11/20/18 1515:00 23:00 07:00 IntakeIntake Total 200 ml 1200 ml 1450 ml OutputOutput Total 1000 ml 900 ml BalanceBalance 200 ml 200 ml 550 ml Exam Review of Systems: CONSTITUTIONAL: No fevers, chills. PULMONARY: trached CARDIOVASCULAR: No chest pain/palpitations GASTROINTESTINAL: No nausea/vomiting. GENITOURINARY: No hematuria/dysuria. MUSCULOSKELETAL: No myagias/arthalgias. PSYCHIATRIC: The patient denies depression. NEUROLOGIC: confused Constitutional: other (confused) Psych: no complaints Head: normocephalic ENMT: mucosa pink and moist Neck: other (trached) Respiratory: diminished breath sounds (at bases/B) Cardiovascular: regular rate and rhythm Gastrointestinal: soft, non-tender Musculoskeletal: muscle weakness (generalized) Extremities: edema (trace/B) Neurological: confused Medications Medications Current Medications Acetaminophen (Tylenol Supp) 650 mg Q6H PRN WI FEVER GREATER THAN 100.6 Last administered on 10/28/18at 03:07; Admin Dose 650 MG; Start 10/28/18 at 02:30 Hydralazine HCl (Apresoline) 10 mg Q4H PRN IV SBP>170; Start 10/28/18 at 11:00 Mupirocin (Bactroban) 1 applic BID TOP Last administered on 11/20/18 08:54; Admin Dose 1 APPLIC; Start 10/28/18 at 21:00 Levalbuterol (Xopenex Neb) 1.25 mg Q6H RESP THERAPY HHN Last administered on 11/20/18 13:06; Admin Dose 1.25 MG; Start 10/29/18 at 08:00 Budesonide (Pulmicort (Neb)) 0.5 mg BID RESP THERAPY HHN Last administered on 11/20/18 08:02; Admin Dose 0.5 MG; Start 10/29/18 at 09:00 Ipratropium [place] (Atrovent 0.02% (Neb)) 0.5 mg Q6H RESP THERAPY HHN Last administered on 11/20/18 13:06; Admin Dose 0.5 MG; Start 10/29/18 at 08:00 Lansoprazole (Prevacid) 30 mg DAILY@06 GTB Last administered on 11/20/18 05:28; Admin Dose 30 MG; Start 10/31/18 at 06:00 Sodium Phosphate (Neutra-Phos) 250 mg BID PO Last administered on 11/20/18 08:53; Admin Dose 250 MG; Start 11/01/18 at 09:00 Apixaban (Eliquis) 2.5 mg BID PO Last administered on 11/20/18 08:53; Admin Dose 2.5 MG; Start 11/02/18 at 09:00 Morphine Sulfate (morphine) 15 mg Q4H PRN PO SEVERE PAIN LEVEL 7-10; Start 11/04/18 at 14:30 Lorazepam (Ativan) 1 mg Q6H PRN IV SEIZURES; Start 11/04/18 at 15:00 Lorazepam (Ativan) 1 mg Q6H PRN PO ANXIETY Last administered on 11/18/18 21:08; Admin Dose 1 MG; Start 11/04/18 at 15:00 Docusate Sodium (Colace Liquid Cup) 100 mg BID NGT Last administered on 11/20/18 08:53; Admin Dose 100 MG; Start 11/04/18 at 21:00 Bisacodyl (Dulcolax Supp) 10 mg DAILY PRN WI CONSTIPATION Last administered on 11/05/18at 12:21; Admin Dose 10 MG; Start 11/05/18 at 11:30 IV Flush (NS 10 ml) 10 ml PRN PRN IV IV PROTOCOL; Start 11/07/18 at 15:00 Levetiracetam (Keppra Liquid) 500 mg BID GTB Last administered on 11/20/18 08:53; Admin Dose 500 MG; Start 11/08/18 at 21:00 Ondansetron HCl (Zofran Inj) 4 mg Q6H PRN IV NAUSEA AND/OR VOMITING; Start 11/15/18 at 08:00 Acetaminophen (Tylenol Liquid) 650 mg Q4H PRN NGT MILD PAIN(1-3)OR ELEVATED TEMP Last administered on 11/15/18 08:03; Admin Dose 650 MG; Start 11/15/18 at 08:00 Diltiazem HCl 125 ml @ 5 mls/hr TITRATE IV Last administered on 11/15/18 09:17; Admin Dose 5 MLS/HR; Start 11/15/18 at 10:00; Status Hold Cefepime HCl 50 ml @ 100 mls/hr Q12 IVPB Last administered on 11/20/18 08:53; Admin Dose 100 MLS/HR; Start 11/15/18 at 10:30 Levofloxacin/ Dextrose 150 ml @ 100 mls/hr Q24H IVPB Last administered on 11/20/18 09:48; Admin Dose 100 MLS/HR; Start 11/15/18 at 10:30 Vancomycin HCl (Vanco Iv Per Pharmacy) VANCOMYCIN PER PHARMACY PER PROTOCOL XX ; Start 11/15/18 at 14:00 Metoprolol Tartrate (Lopressor) 50 mg BID PO Last administered on 11/20/18 08:53; Admin Dose 50 MG; Start 11/15/18 at 21:00 Diltiazem HCl (Cardizem Iv) 5 mg Q4 PRN IV HR>110 Hold SBP<100; Start 11/15/18 at 18:30 Collagenase (Santyl) 1 applic BID TOP Last administered on 11/20/18 08:54; Admin Dose 1 APPLIC; Start 11/16/18 at 21:00 Vancomycin HCl 1.25 gm/Sodium Chloride 250 ml @ 83.333 mls/ hr Q48H IVPB Last administered on 11/19/18 15:51; Admin Dose 83.333 MLS/HR; Start 11/19/18 at 14:00 LUIS FERGUSON Nov 20, 2018 14:31
[2018-11-20] MEDS ORDERED: DILTIAZEM 30 MG TAB PO SCH (14:43)
--- NOTE | 2018-11-20 23:12 | DS ---
Date/Time of Note Date/Time of Note DATE: 11/20/18 TIME: 23:12 Discharge Summary Admission/Discharge Info Admit Date/Time Oct 27, 2018 at 08:14 Discharge Date/Time Nov 20, 2018 at 20:22 Patient Condition: Stable Hx of Present Illness Patient with history of atrial fibrillation, hypertension, pulmonary edema, respiratory failure, COPD was inpatient at [facility] day prior to this current admission. Patient was transferred to [facility] for continued care of her respiratory failure. Early this morning, patient was noted to have worsening tachycardia with atrial fibrillation with p ossible seizure activity. Rapid response was called and because of her worsening condition, patient was transferred to the Emergency Room and then admitted to the ICU. Hospital Course Pt d/alvin to [place] Assessment/Plan -Acute encephalopathy secondary to CVA. Dr. Meng is following in neurology consultation. -Seizure disorder/status epilepticus. Continue Keppra and Ativan as needed. -Status post healthcare associated pneumonia and urinary tract infection. -MRSA nares colonization -Atrial fibrillation, continue Eliquis -Diastolic congestive heart failure. Dr. Hernandez is following in cardiology consultation. -Bilateral superficial venous thrombus within the cephalic veins. -Pulmonary fibrosis, continue Pulmicort. Dr. Davenport is following in pulmonology consultation. -Chronic tracheostomy -COPD Plan of care discussed with Dr. Phillips. Home Meds Reported Medications Methylprednisolone Sodium Succinate PF (Solu-Medrol PF) 40 Mg/1 Ml Vial, 30 MG IV Q8H, VIAL 10/27/18 Magnesium Hydroxide* (Milk Of Magnesia*) 400 Mg/5 Ml Oral.susp, 30 ML PO BID, ML 10/27/18 Magnesium Oxide* (Magnesium Oxide*) 400 Mg Tablet, 400 MG PO BID, TAB 10/27/18 Morphine Sulfate* (Morphine* Liq) 10 Mg/0.5 Ml Disp.syrin, 6 ML SL Q4H PRN for PAIN, ML 10/27/18 Metoprolol Tartrate* (Lopressor*) 25 Mg Tab, 25 MG PO BID, #60 TAB HOLD FOR SBP<110 OR HR<60 10/27/18 Levalbuterol Hcl* (Levalbuterol Hcl*) 1.25 Mg/0.5 Ml Vial.neb, 1.25 MG INHALATION Q6H, VIAL 10/27/18 Furosemide* (Lasix*) 20 Mg Tablet, 20 MG PO DAILY, TAB 10/27/18 Famotidine* (Famotidine*) 20 Mg Tablet, 20 MG PO DAILY, #30 TAB 10/27/18 Digoxin* (Digitek*) 125 Mcg Tablet, 0.125 MG PO DAILY, TAB 10/27/18 Collagenase* (Santyl*) 30 Gm Oint..gm., 1 APPLIC TOP .SOILED PRN for SOILED, #1 TUB 10/27/18 Budesonide* (Budesonide*) 0.5 Mg/2 Ml Ampul.neb, 0.5 MG INHALATION BID, AMP 10/27/18 Apixaban* (Eliquis*) 2.5 Mg Tablet, 2.5 MG PO BID, TAB 10/27/18 Ipratropium-Albuterol (Ipratropium-Albuterol) 0.5-3 Mg/3 Ml Ampul.neb, 3 ML INHALATION Q6, #30 VIAL 10/22/18 Bethanechol Chloride* (Bethanechol Chloride*) 25 Mg Tablet, 25 MG PO TID, TAB 10/22/18 Ondansetron Hcl* (Zofran*) 4 Mg Tab, 4 MG PO Q6H PRN for NAUSEA AND OR VOMITING, TAB 05/10/18 L. Acidophilus/Pectin, [place] (Acidophilus Capsule) 1 Each Capsule, 1 EACH PO DAILY, CAP 05/10/18 Epoetin Amor (Epogen) 10,000 Units/Ml Soln, 1.5 ML SC Q MON,WED,FRI,5PM, VIAL 05/10/18 Cyanocobalamin* (Vitamin B-12*) 1,000 Mcg Tablet.sa, 1000 MCG PO BID, TAB 05/10/18 Folic Acid* (Folic Acid*) 1 Mg Tablet, 1 MG PO DAILY, TAB 05/10/18 Atorvastatin Calcium* (Atorvastatin Calcium*) 20 Mg Tablet, 20 MG PO QHS, #30 TAB 05/10/18 Allopurinol* (Allopurinol*) 100 Mg Tablet, 100 MG PO BID for GOUT, TAB 05/10/18 Mineral Oil* (Fleet* Mineral Oil Enema) 133 Ml Oil, 1 APPLIC [place] NEEDED PRN for Q2DAYS, ENEMA 05/10/18 Docusate Sodium* (Colace*) 100 Mg Capsule, 100 MG PO Q9PM, #30 CAP 05/10/18 Ferrous Sulfate* (Ferrous Sulfate*) 325 Mg Tabec, 325 MG PO DAILY, TAB 05/10/18 Ascorbic Acid (Vitamin C) 500 Mg Tab, 500 MG PO DAILY, TAB 05/10/18 Multivitamins* (Theragran*) 1 Tab Tab, 1 TAB PO DAILY, TAB 05/10/18 Acetaminophen* (Tylenol*) 325 Mg Tablet, 650 MG PO NEEDED PRN for TRACH TUBE CHANGE, TAB 05/10/18 Discontinued Reported Medications Ceftriaxone Na/Dextrose,Iso (Ceftriaxone 1 gm Piggyback) 1 Gm/50 Ml Froz.piggy, 1 GM IV Q24H START 10/25/18-11/01/18 10/27/18 Primary Care Provider Higinio Phillips MD Time spent on discharge: > 30 minutes Pending Labs Laboratory Tests Test 11/20/18 05:24 11/20/18 07:43 White Blood Count 5.9 10^3/ul (4.8-10.8) Red Blood Count 2.68 10^6/ul (4.20-5.40) Hemoglobin 8.2 g/dl (12.0-16.0) Hematocrit 27.1 % (37.0-47.0) Mean Corpuscular Volume 101.1 fl (82.0-101.0) Mean Corpuscular Hemoglobin 30.6 pg (29.0-33.0) Mean Corpuscular 30.3 g/dl (32.0-37.0) Hemoglobin Concent Red Cell Distribution Width 17.6 % (11.5-14.5) Platelet Count 234 10^3/UL (140-415) Mean Platelet Volume 9.9 fl (7.4-10.4) Immature Granulocytes % 4.100 % (0.001-0.429) Neutrophils % 67.9 % (39.0-77.0) Lymphocytes % 20.6 % (15.0-51.0) Monocytes % 5.9 % (0.0-11.0) Eosinophils % 1.2 % (0.0-7.0) Basophils % 0.3 % (0.0-2.0) Nucleated Red Blood Cells % 0.0 /100WBC (0.0-0.0) Immature Granulocytes # 0.240 10^3/ul (0.0-0.031) Neutrophils # 4.0 10^3/ul (1.6-7.5) Lymphocytes # 1.2 10^3/ul (0.8-2.9) Monocytes # 0.4 10^3/ul (0.3-0.9) Eosinophils # 0.1 10^3/ul (0.0-0.5) Basophils # 0.0 10^3/ul (0.0-0.1) Nucleated Red Blood Cells # 0.0 10^3/ul (0.0-0.0) Sodium Level 141 mmol/L (135-144) Potassium Level 4.2 mmol/L (3.5-5.1) Chloride Level 107 mmol/L (97-110) Carbon Dioxide Level 26 mmol/L (21-31) Anion Gap 8 (5-13) Blood Urea Nitrogen 26 mg/dl (7-20) Creatinine 0.91 mg/dl (0.44-1.00) Est Glomerular Filtrat Rate mL/min mL/min (>60) Glucose Level 102 mg/dl (70-220) Calcium Level 9.0 mg/dl (8.4-10.2) Lab Scanned Report BLOOD TRANSFUSION IMER VARGAS Nov 20, 2018 23:12
--- NOTE | 2018-12-01 21:51 | DS ---
Date/Time of Note Date/Time of Note DATE: 12/01/18 TIME: 21:50 Discharge Summary Admission/Discharge Info Admit Date/Time Oct 27, 2018 at 08:14 Discharge Date/Time Nov 20, 2018 at 20:22 Patient Condition: Stable Hx of Present Illness Patient with history of atrial fibrillation, hypertension, pulmonary edema, respiratory failure, COPD was inpatient at [facility] day prior to this current admission. Patient was transferred to [facility] for continued care of her respiratory failure. Early this morning, patient was noted to have worsening tachycardia with atrial fibrillation with possible seizure activity. Rapid response was called and because of her worsening condition, patient was transferred to the Emergency Room and then admitted to the ICU. Hospital Course Pt d/alvin to [place] -Acute encephalopathy secondary to CVA. Dr. Meng is following in neurology consultation. -Seizure disorder/status epilepticus. Continue Keppra and Ativan as needed. -Status post healthcare associated pneumonia and urinary tract infection. -MRSA nares colonization -Atrial fibrillation, continue Eliquis -Diastolic congestive heart failure. Dr. Hernandez is following in cardiology consultation. -Bilateral superficial venous thrombus within the cephalic veins. -Pulmonary fibrosis, continue Pulmicort. Dr. Davenport is following in pulmonology c onsultation. -Chronic tracheostomy -COPD Plan of care discussed with Dr. Phillips. Home Meds Reported Medications Methylprednisolone Sodium Succinate PF (Solu-Medrol PF) 40 Mg/1 Ml Vial, 30 MG IV Q8H, VIAL 10/27/18 Magnesium Hydroxide* (Milk Of Magnesia*) 400 Mg/5 Ml Oral.susp, 30 ML PO BID, ML 10/27/18 Magnesium Oxide* (Magnesium Oxide*) 400 Mg Tablet, 400 MG PO BID, TAB 10/27/18 Morphine Sulfate* (Morphine* Liq) 10 Mg/0.5 Ml Disp.syrin, 6 ML SL Q4H PRN for PAIN, ML 10/27/18 Metoprolol Tartrate* (Lopressor*) 25 Mg Tab, 25 MG PO BID, #60 TAB HOLD FOR SBP<110 OR HR<60 10/27/18 Levalbuterol Hcl* (Levalbuterol Hcl*) 1.25 Mg/0.5 Ml Vial.neb, 1.25 MG INHALATION Q6H, VIAL 10/27/18 Furosemide* (Lasix*) 20 Mg Tablet, 20 MG PO DAILY, TAB 10/27/18 Famotidine* (Famotidine*) 20 Mg Tablet, 20 MG PO DAILY, #30 TAB 10/27/18 Digoxin* (Digitek*) 125 Mcg Tablet, 0.125 MG PO DAILY, TAB 10/27/18 Collagenase* (Santyl*) 30 Gm Oint..gm., 1 APPLIC TOP .SOILED PRN for SOILED, #1 TUB 10/27/18 Budesonide* (Budesonide*) 0.5 Mg/2 Ml Ampul.neb, 0.5 MG INHALATION BID, AMP 10/27/18 Apixaban* (Eliquis*) 2.5 Mg Tablet, 2.5 MG PO BID, TAB 10/27/18 Ipratropium-Albuterol (Ipratropium-Albuterol) 0.5-3 Mg/3 Ml Ampul.neb, 3 ML INHALATION Q6, #30 VIAL 10/22/18 Bethanechol Chloride* (Bethanechol Chloride*) 25 Mg Tablet, 25 MG PO TID, TAB 10/22/18 Ondansetron Hcl* (Zofran*) 4 Mg Tab, 4 MG PO Q6H PRN for NAUSEA AND OR VOMITING, TAB 05/10/18 L. Acidophilus/Pectin, [place] (Acidophilus Capsule) 1 Each Capsule, 1 EACH PO DAILY, CAP 05/10/18 Epoetin Amor (Epogen) 10,000 Units/Ml Soln, 1.5 ML SC Q MON,WED,FRI,5PM, VIAL 05/10/18 Cyanocobalamin* (Vitamin B-12*) 1,000 Mcg Tablet.sa, 1000 MCG PO BID, TAB 05/10/18 Folic Acid* (Folic Acid*) 1 Mg Tablet, 1 MG PO DAILY, TAB 05/10/18 Atorvastatin Calcium* (Atorvastatin Calcium*) 20 Mg Tablet, 20 MG PO QHS, #30 TAB 05/10/18 Allopurinol* (Allopurinol*) 100 Mg Tablet, 100 MG PO BID for GOUT, TAB 05/10/18 Mineral Oil* (Fleet* Mineral Oil Enema) 133 Ml Oil, 1 APPLIC [place] NEEDED PRN for Q2DAYS, ENEMA 05/10/18 Docusate Sodium* (Colace*) 100 Mg Capsule, 100 MG PO Q9PM, #30 CAP 05/10/18 Ferrous Sulfate* (Ferrous Sulfate*) 325 Mg Tabec, 325 MG PO DAILY, TAB 05/10/18 Ascorbic Acid (Vitamin C) 500 Mg Tab, 500 MG PO DAILY, TAB 05/10/18 Multivitamins* (Theragran*) 1 Tab Tab, 1 TAB PO DAILY, TAB 05/10/18 Acetaminophen* (Tylenol*) 325 Mg Tablet, 650 MG PO NEEDED PRN for TRACH TUBE CHANGE, TAB 05/10/18 Discontinued Reported Medications Ceftriaxone Na/Dextrose,Iso (Ceftriaxone 1 gm Piggyback) 1 Gm/50 Ml Froz.piggy, 1 GM IV Q24H START 10/25/18-11/01/18 10/27/18 Primary Care Provider Higinio Phillips MD Time spent on discharge: > 30 minutes IMER VARGAS Dec 01, 2018 21:51
== END 2018-11-20 20:22 | disposition short-term general hospital (02) | DRG 870 ==
LOC: E/R 07:39 → ICU 08:14 → 6WM 11-01 05:45
PROVIDERS: ADMIT Internal Medicine; ATTEND Internal Medicine
PROC: 5A1955Z Respiratory Ventilation, Greater than 96 Consecutive Hours (ICD-10-PCS; principal; 2018-10-27)
PROC: 02HV33Z Insertion of Infusion Device into Superior Vena Cava, Percutaneous Approach (ICD-10-PCS; 2018-11-07)
PROC: B548ZZA Ultrasonography of Superior Vena Cava, Guidance (ICD-10-PCS; 2018-11-07)
PROC: 30233N1 Transfusion of Nonautologous Red Blood Cells into Peripheral Vein, Percutaneous Approach (ICD-10-PCS; 2018-11-19)
DX: A41.9 Sepsis, unspecified organism (principal); I50.33 Acute on chronic diastolic (congestive) heart failure; G92 Toxic encephalopathy; J18.9 Pneumonia, unspecified organism; I63.9 Cerebral infarction, unspecified; J96.20 Acute and chronic respiratory failure, unspecified whether with hypoxia or hypercapnia; N18.6 End stage renal disease; N39.0 Urinary tract infection, site not specified; N17.9 Acute kidney failure, unspecified; E87.0 Hyperosmolality and hypernatremia; Z99.11 Dependence on respirator [ventilator] status; I42.9 Cardiomyopathy, unspecified; I13.2 Hypertensive heart and chronic kidney disease with heart failure and with stage 5 chronic kidney disease, or end stage renal disease; I82.613 Acute embolism and thrombosis of superficial veins of upper extremity, bilateral; L03.116 Cellulitis of left lower limb; L03.115 Cellulitis of right lower limb; Z93.0 Tracheostomy status; E78.5 Hyperlipidemia, unspecified; Z93.1 Gastrostomy status; Z99.81 Dependence on supplemental oxygen; R13.10 Dysphagia, unspecified; N18.9 Chronic kidney disease, unspecified; G40.901 Epilepsy, unspecified, not intractable, with status epilepticus; I48.0 Paroxysmal atrial fibrillation; I25.10 Atherosclerotic heart disease of native coronary artery without angina pectoris; D63.1 Anemia in chronic kidney disease; E83.42 Hypomagnesemia; E83.39 Other disorders of phosphorus metabolism; E83.89 Other disorders of mineral metabolism; M54.5 Low back pain; G89.29 Other chronic pain; F29 Unspecified psychosis not due to a substance or known physiological condition; D64.9 Anemia, unspecified; D69.6 Thrombocytopenia, unspecified; E11.22 Type 2 diabetes mellitus with diabetic chronic kidney disease; B96.1 Klebsiella pneumoniae [K. pneumoniae] as the cause of diseases classified elsewhere; J43.9 Emphysema, unspecified; E66.01 Morbid (severe) obesity due to excess calories; Z68.35 Body mass index [BMI] 35.0-35.9, adult
CPT/HCPCS: 36430; 36569; 36600; 70450; 70551; 71045; 76937; 80048; 80053; 80162; 80185; 80202; 81001; 81003; 82043; 82550; 82553; 82803; 82962; 83605; 83735; 83880; 84100; 84155; 84300; 84443; 84484; 85025; 85610; 85651; 85730; 86022; 86592; 86850; 86900; 86901; 86920; 87040; 87070; 87075; 87081; 87086; 92526; 92610; 93005; 93308; 93970; 94002; 94003; 94640; 95819; 96374; 97163; 97530; C1769; C9113; J0282; J0692; J1165; J1200; J1940; J1953; J1956; J2060; J2250; J3370; J3475; J7030; J7040; J7050; P9016

== ENCOUNTER 2018-11-28 14:20 | Day surgery (SDC) | payer OTHER ==
[~2018-11-28] VITALS: Ht 157.5 cm; Wt 73.4 kg
[2018-11-28] VITALS (10 sets, daily range): BP systolic 119–141; BP diastolic 50–92; PULSE 68–82; RESP 15–77; Ht 157.5 cm; Wt 73.4 kg
[~2018-11-28 14:20] MED LIST changes: +APIX2.5T PO; +BUDE0.5A INHALATION; +CEFAZOLIN 1 GM INJ ONE; +CEFT1FRO2 IV; +DIGO125T PO; +FAMO20TA18 PO; +FURO-110 PO; -LANS30CA PO; +LEVA1.25 INHALATION; +MAGN400T28 PO; -MEGE400O4 PO; +METH40VI IV; +METO-448 PO; +MORP10DI10 SL; -MULT-275 PO; -PANT40TA3 PO; +SAN30GM TOP
--- NOTE | 2018-11-28 16:31 | PREAC ---
Date/Time of Note Date/Time of Note DATE: 11/28/18 TIME: 16:26 Anesthesia Eval and Record Evaluation Time Pre-Procedure Interview DATE: 11/28/18 TIME: 16:26 Age 73 Sex female NPO: 8 hrs Preoperative diagnosis Feeding tube removal Planned procedure PEG tube placement Past Medical History Past Medical History: Includes Cardio: HTN, CHF Pulm: COPD, Other (SR with PAC) Renal: CKD Surgery & Anesthesia Issues No known issue Meds Anticoagulation: No Beta Eros within 24 hr: No Reason Beta Eros not given: Pt. not on B-Eros Reported Medications Methylprednisolone Sodium Succinate PF (Solu-Medrol PF) 40 Mg/1 Ml Vial, 30 MG IV Q8H, VIAL 10/27/18 Magnesium Hydroxide* (Milk Of Magnesia*) 400 Mg/5 Ml Oral.susp, 30 ML PO BID, ML 10/27/18 Magnesium Oxide* (Magnesium Oxide*) 400 Mg Tablet, 400 MG PO BID, TAB 10/27/18 Morphine Sulfate* (Morphine* Liq) 10 Mg/0.5 Ml Disp.syrin, 6 ML SL Q4H PRN for PAIN, ML 10/27/18 Metoprolol Tartrate* (Lopressor*) 25 Mg Tab, 25 MG PO BID, #60 TAB HOLD FOR SBP<110 OR HR<60 10/27/18 Levalbuterol Hcl* (Levalbuterol Hcl*) 1.25 Mg/0.5 Ml Vial.neb, 1.25 MG INHALATION Q6H, VIAL 10/27/18 Furosemide* (Lasix*) 20 Mg Tablet, 20 MG PO DAILY, TAB 10/27/18 Famotidine* (Famotidine*) 20 Mg Tablet, 20 MG PO DAILY, #30 TAB 10/27/18 Digoxin* (Digitek*) 125 Mcg Tablet, 0.125 MG PO DAILY, TAB 10/27/18 Collagenase* (Santyl*) 30 Gm Oint..gm., 1 APPLIC TOP .SOILED PRN for SOILED, #1 TUB 10/27/18 Budesonide* (Budesonide*) 0.5 Mg/2 Ml Ampul.neb, 0.5 MG INHALATION BID, AMP 10/27/18 Apixaban* (Eliquis*) 2.5 Mg Tablet, 2.5 MG PO BID, TAB 10/27/18 Ipratropium-Albuterol (Ipratropium-Albuterol) 0.5-3 Mg/3 Ml Ampul.neb, 3 ML INHALATION Q6, #30 VIAL 10/22/18 Bethanechol Chloride* (Bethanechol Chloride*) 25 Mg Tablet, 25 MG PO TID, TAB 10/22/18 Ondansetron Hcl* (Zofran*) 4 Mg Tab, 4 MG PO Q6H PRN for NAUSEA AND OR VOMITING, TAB 05/10/18 L. Acidophilus/Pectin, [place] (Acidophilus Capsule) 1 Each Capsule, 1 EACH PO DAILY, CAP 05/10/18 Epoetin Amor (Epogen) 10,000 Units/Ml Soln, 1.5 ML SC Q MON,WED,FRI,5PM, VIAL 05/10/18 Cyanocobalamin* (Vitamin B-12*) 1,000 Mcg Tablet.sa, 1000 MCG PO BID, TAB 05/10/18 Folic Acid* (Folic Acid*) 1 Mg Tablet, 1 MG PO DAILY, TAB 05/10/18 Atorvastatin Calcium* (Atorvastatin Calcium*) 20 Mg Tablet, 20 MG PO QHS, #30 TAB 05/10/18 Allopurinol* (Allopurinol*) 100 Mg Tablet, 100 MG PO BID for GOUT, TAB 05/10/18 Mineral Oil* (Fleet* Mineral Oil Enema) 133 Ml Oil, 1 APPLIC RI NEEDED PRN for Q2DAYS, ENEMA 05/10/18 Docusate Sodium* (Colace*) 100 Mg Capsule, 100 MG PO Q9PM, #30 CAP 05/10/18 Ferrous Sulfate* (Ferrous Sulfate*) 325 Mg Tabec, 325 MG PO DAILY, TAB 05/10/18 Ascorbic Acid (Vitamin C) 500 Mg Tab, 500 MG PO DAILY, TAB 05/10/18 Multivitamins* (Theragran*) 1 Tab Tab, 1 TAB PO DAILY, TAB 05/10/18 Acetaminophen* (Tylenol*) 325 Mg Tablet, 650 MG PO NEEDED PRN for TRACH TUBE CHANGE, TAB 05/10/18 Discontinued Reported Medications Ceftriaxone Na/Dextrose,Iso (Ceftriaxone 1 gm Piggyback) 1 Gm/50 Ml Froz.piggy, 1 GM IV Q24H START 10/25/18-11/01/18 10/27/18 Meds reviewed: Yes Allergies Coded Allergies: No Known Allergy (Unverified , 11/28/18) Allergies Reviewed: Yes Labs/Studies Labs Reviewed: Reviewed by anesthesiologist test: N/A Studies: ECG (sinus arrthymia), 2D Echo (EF 60%) Pre-procedure Exam Airway: Adequate mouth opening Mallampati: Mallampati II Teeth: Normal Lung: Normal Heart: Normal ASA Physical Status ASA physical status: 4 Emergency: None Planned Anesthetic General/MAC: ETT Pre-operative Attestations Prior to commencing anesthesia and surgery, the patient was re-evaluated, there was verification of: *The patient's identity *The results of appropriate recent lab work and preoperative vital signs *The above evaluation not changing prior to induction *Anesthetic plan, risk benefits, alternative and complications discussed with patient/family; questions answered; patient/family understands, accepts and wishes to proceed. KARLA EVANS Nov 28, 2018 16:31
[2018-11-28] MEDS ORDERED: FENTAnyl 50 MCG/ML VIAL ONE (17:00)
--- NOTE | 2018-11-28 17:49 | PAC ---
Date/Time of Note Date/Time of Note DATE: 11/28/18 TIME: 17:48 Post-Anesthesia Notes Post-Anesthesia Note Last documented vital signs 1748 130/69 75 99% 98 Activity: WNL Respiratory function: WNL Cardiovascular function: WNL Mental status: Baseline Pain reasonably controlled: Yes Hydration appropriate: Yes Nausea/Vomiting absent: Yes SRAVANTHI ADAMES DO Nov 28, 2018 17:49
--- NOTE | 2018-11-30 02:31 | GILP ---
DATE OF PROCEDURE: 11/28/2018 PROCEDURE PERFORMED: Percutaneous endoscopic gastrostomy. INDICATION: A 73-year-old female undergoing this procedure for dysphagia secondary to stroke. The p urpose is to put a G-tube directly into the stomach for jail enteral nutrition. The risk of the procedure, related and unrelated complications, anesthetic risks, alternatives were discussed. Infor med consent was obtained. DESCRIPTION OF PROCEDURE: The patient was brought to the GI lab, sedated by [employer] and after optimal s edation, scope was passed with much ease into the esophagus. She was also given NSAID prior to the p rocedure. Scope was advanced further down into stomach and duodenum. There was no evidence of obstr uction. By transillumination and digital palpation technique, appropriate site was chosen on anterio r abdominal wall. Site was sterilized with chlorhexidine solution. A 2% Xylocaine instilled by safe method. A small incision was made. Through that incision, trocar stylet was passed into the stomac h. Stylet was removed. Through the hollow tip of the catheter, insertion wire was passed and the en tire procedure was completed by modified Ponsky technique. The patient was rescoped. The position o f the internal bumper confirmed. External bumper secured. She tolerated the procedure very well. IMPRESSION: Successful placement of PEG tube done without any complication. PLAN: Resume feeding after 6 hours, all the medication after 3 hours and abdominal binder. Dictated By: TYSON NAVARRETE/NTS Conf#: [id number] DID#: [id number] CC: JAYLEN LUGO MD;*EndCC*
--- NOTE | 2018-12-12 09:13 | HPN ---
Date/Time of Note Date/Time of Note DATE: 12/12/18 TIME: 09:13 Interval H&P Admission Note Pt. seen H&P reviewed: No system changes TYSON ALICEA MD Dec 12, 2018 09:13
== END 2018-11-28 18:25 | disposition other institution (70) ==
LOC: SDS 14:20
PROVIDERS: ATTEND Internal Medicine Gastroenterology
DX: Z43.1 Encounter for attention to gastrostomy (principal); I11.0 Hypertensive heart disease with heart failure; I50.32 Chronic diastolic (congestive) heart failure; J44.9 Chronic obstructive pulmonary disease, unspecified
CPT/HCPCS: 43246; 94002; J0690; J3010

== ENCOUNTER 2019-03-17 12:05 | Inpatient (IN) | payer MEDICARE, OTHER ==
[~2019-03-17] VITALS: Ht 160 cm; Wt 66.4 kg
[~2019-03-17 12:05] MED LIST changes: -CEFAZOLIN 1 GM INJ ONE; -CEFT1FRO2 IV
--- NOTE | 2019-03-17 12:19 | ERD ---
ER Documentation Chief Complaint Chief Complaint low hemoglobin, ?aloc HPI The patient is a 73-year-old female, presenting to the ER because of abnormal hemoglobin I did discuss the patient with her physician Dr. Phillips who wanted a CT scan of the brain as well because of questionable altered level of consciousness. He is unable to provide any history, the history is obtained from medical record and her physician Past medical history: Chronic respiratory failure, dyslipidemia, hypertension, history of CHF, atrial fibrillation, COPD, history of CVA, epilepsy, pulmonary fibrosis, anemia, status post cardiac arrest Past surgical history: Tracheostomy, G-tube ROS All systems reviewed and are negative except as per history of present illness. Medications Home Meds Reported Medications Levalbuterol Hcl* (Xopenex*) 1.25 Mg/0.5 Ml Vial.neb, 1.25 MG INHALATION Q6H for WHEEZING AND SOB, EA 03/17/19 Levalbuterol Hcl* (Levalbuterol Hcl*) 1.25 Mg/0.5 Ml Vial.neb, 1.25 MG INHALATION Q3H, VIAL 03/17/19 Ascorbic Acid (Vitamin C) 500 Mg Tab, 500 MG GTB DAILY, TAB 03/17/19 Cran/Vitc/Mannose/Inulin/Brom (Uti-Stat Liquid) 3,875 Mg/30 Ml Liquid, 30 ML GTB BID 03/17/19 Acetaminophen* (Acetaminophen*) 500 MG Extra Strength Tablet, 1000 MG PO Q4H PRN for NEEDED, TAB UNTIL 04/16/19 03/17/19 Acetaminophen* (Tylenol*) 325 Mg Tablet, 650 MG GTB BID PRN for PAIN MGT, TAB 03/17/19 Acetaminophen* (Tylenol*) 325 Mg Tablet, 650 MG GTB Q4H PRN for MILD PAIN LEVEL 1-3, TAB AND FEVER 101F, END DATE 04/16/19 03/17/19 Acetaminophen* (Tylenol*) 325 Mg Tablet, 650 MG GTB NEEDED PRN for TRACH TUBE CHANGE, TAB 03/17/19 Epoetin Amor (Procrit) 4,000 Unit/1 Ml Vial, 4000 UNIT IJ Q WED, VIAL 03/17/19 Amino Acids/Protein Hydrolys (PRO-STAT LIQUID) 30 Ml Liquid.pkt, 30 ML GTB DAILY 03/17/19 Multivitamins* (Theragran*) 1 Tab Tab, 1 TAB GTB DAILY, TAB 03/17/19 Magnesium Hydroxide* (Milk Of Magnesia*) 400 Mg/5 Ml Oral.susp, 30 ML GTB NEEDED, ML END DATE 04/16/19 03/17/19 Metoprolol Tartrate* (Lopressor*) 25 Mg Tab, 25 MG GTB BID, #60 TAB HOLD IF SBP<110 OR HR<60 03/17/19 Levetiracetam* (Levetiracetam*) 500 Mg/5 Ml Solution, 2.5 ML PO Q12H, ML 03/17/19 Mineral Oil* (Fleet* Mineral Oil Enema) Unknown Strength Oil, 1 APPLIC ND NEEDED PRN for CONSTIPATION, ENEMA 03/17/19 Bisacodyl (Dulcolax) 10 Mg Supp.rect, 10 MG RC NEEDED, SUPP.RECT UNTIL 04/16/19 03/17/19 Digoxin* (Digox*) 125 Mcg Tablet, 0.125 MG GTB DAILY PRN for HOLD IF HR<60, TAB 03/17/19 Docusate Sodium* (Colace*) 100 Mg Capsule, 100 MG GTB DAILY, #30 CAP 03/17/19 Chlorhexidine Gluconate (Peridex) 473 Ml Mouthwash, 15 ML MM Q12H, BOTTLE 03/17/19 Discontinued Reported Medications Methylprednisolone Sodium Succinate PF (Solu-Medrol PF) 40 Mg/1 Ml Vial, 30 MG IV Q8H, VIAL 10/27/18 Magnesium Hydroxide* (Milk Of Magnesia*) 400 Mg/5 Ml Oral.susp, 30 ML PO BID, ML 10/27/18 Magnesium Oxide* (Magnesium Oxide*) 400 Mg Tablet, 400 MG PO BID, TAB 10/27/18 Morphine Sulfate* (Morphine* Liq) 10 Mg/0.5 Ml Disp.syrin, 6 ML SL Q4H PRN for PAIN, ML 10/27/18 Metoprolol Tartrate* (Lopressor*) 25 Mg Tab, 25 MG PO BID, #60 TAB HOLD FOR SBP<110 OR HR<60 10/27/18 Levalbuterol Hcl* (Levalbuterol Hcl*) 1.25 Mg/0.5 Ml Vial.neb, 1.25 MG IN HALATION Q6H, VIAL 10/27/18 Furosemide* (Lasix*) 20 Mg Tablet, 20 MG PO DAILY, TAB 10/27/18 Famotidine* (Famotidine*) 20 Mg Tablet, 20 MG PO DAILY, #30 TAB 10/27/18 Digoxin* (Digitek*) 125 Mcg Tablet, 0.125 MG PO DAILY, TAB 10/27/18 Collagenase* (Santyl*) 30 Gm Oint..gm., 1 APPLIC TOP .SOILED PRN for SOILED, #1 TUB 10/27/18 Budesonide* (Budesonide*) 0.5 Mg/2 Ml Ampul.neb, 0.5 MG INHALATION BID, AMP 10/27/18 Apixaban* (Eliquis*) 2.5 Mg Tablet, 2.5 MG PO BID, TAB 10/27/18 Ipratropium-Albuterol (Ipratropium-Albuterol) 0.5-3 Mg/3 Ml Ampul.neb, 3 ML INHALATION Q6, #30 VIAL 10/22/18 Bethanechol Chloride* (Bethanechol Chloride*) 25 Mg Tablet, 25 MG PO TID, TAB 10/22/18 Ondansetron Hcl* (Zofran*) 4 Mg Tab, 4 MG PO Q6H PRN for NAUSEA AND OR VOMITING, TAB 05/10/18 L. Acidophilus/Pectin, Sharkey (Acidophilus Capsule) 1 Each Capsule, 1 EACH PO DAILY, CAP 05/10/18 Epoetin Amor (Epogen) 10,000 Units/Ml Soln, 1.5 ML SC Q MON,WED,FRI,5PM, VIAL 05/10/18 Cyanocobalamin* (Vitamin B-12*) 1,000 Mcg Tablet.sa, 1000 MCG PO BID, TAB 05/10/18 Folic Acid* (Folic Acid*) 1 Mg Tablet, 1 MG PO DAILY, TAB 05/10/18 Atorvastatin Calcium* (Atorvastatin Calcium*) 20 Mg Tablet, 20 MG PO QHS, #30 TAB 05/10/18 Allopurinol* (Allopurinol*) 100 Mg Tablet, 100 MG PO BID for GOUT, TAB 05/10/18 Mineral Oil* (Fleet* Mineral Oil Enema) 133 Ml Oil, 1 APPLIC ND NEEDED PRN for Q2DAYS, ENEMA 05/10/18 Docusate Sodium* (Colace*) 100 Mg Capsule, 100 MG PO Q9PM, #30 CAP 05/10/18 Ferrous Sulfate* (Ferrous Sulfate*) 325 Mg Tabec, 325 MG PO DAILY, TAB 05/10/18 Ascorbic Acid (Vitamin C) 500 Mg Tab, 500 MG PO DAILY, TAB 05/10/18 Multivitamins* (Theragran*) 1 Tab Tab, 1 TAB PO DAILY, TAB 05/10/18 Acetaminophen* (Tylenol*) 325 Mg Tablet, 650 MG PO NEEDED PRN for TRACH TUBE CHANGE, TAB 05/10/18 Allergies Allergies: Coded Allergies: No Known Allergy (Unverified , 03/17/19) PMhx/Soc History of Surgery: Yes (TRACH/GTUBE) Anesthesia Reaction: No Hx Neurological Disorder: Yes (STROKE) Hx Respiratory Disorders: Yes (RESP FAILURE) Hx Cardiac Disorders: Yes (HTN, CHF) Hx Psychiatric Problems: No Hx Miscellaneous Medical Probl: No Hx Alcohol Use: No Hx Substance Use: No Hx Tobacco Use: No Physical Exam Vitals Vital Signs Date Temp Pulse Resp B/P (MAP) Pulse Ox O2 O2 Flow FiO2 Time Delivery Rate 03/17/19 85 20 99 35 15:39 03/17/19 88 24 100 35 12:43 03/17/19 97.3 68 20 115/67 97 12:25 (83) Physical Exam Const: No acute distress. Head: Atraumatic. Eyes: Normal Conjunctiva. ENT: Normal External Ears, Nose and Mouth. Neck: Full range of motion. No meningismus. Trach Resp: Clear to auscultation bilaterally. Cardio: Irregularly irregular Abd: Soft, non distended, normal bowel sounds, non tender.G tube Skin: No petechiae or rashes. Back: No midline or flank tenderness. Ext: No cyanosis, or edema. Neur: Unable to obtain due to her condition Psych: Unable to obtain due to her condition Result Diagram: 03/17/19 1303 03/17/19 1303 Results 24 hrs Laboratory Tests Test 03/17/19 13:03 White Blood Count 9.3 10^3/ul Red Blood Count 2.50 10^6/ul Hemoglobin 7.8 g/dl Hematocrit 26.1 % Mean Corpuscular Volume 104.4 fl Mean Corpuscular Hemoglobin 31.2 pg Mean Corpuscular Hemoglobin Concent 29.9 g/dl Red Cell Distribution Width 18.8 % Platelet Count 481 10^3/UL Mean Platelet Volume 9.5 fl Immature Granulocytes % 1.300 % Neutrophils % 74.5 % Lymphocytes % 18.4 % Monocytes % 4.3 % Eosinophils % 1.4 % Basophils % 0.1 % Nucleated Red Blood Cells % 0.2 /100WBC Immature Granulocytes # 0.120 10^3/ul Neutrophils # 7.0 10^3/ul Lymphocytes # 1.7 10^3/ul Monocytes # 0.4 10^3/ul Eosinophils # 0.1 10^3/ul Basophils # 0.0 10^3/ul Nucleated Red Blood Cells # 0.0 10^3/ul Prothrombin Time 14.1 Sec Prothrombin Time Ratio 1.1 INR International Normalized Ratio 1.08 Activated Partial Thromboplast Time 28.0 Sec Sodium Level 139 mmol/L Potassium Level 4.7 mmol/L Chloride Level 98 mmol/L Carbon Dioxide Level 32 mmol/L Anion Gap 9 Blood Urea Nitrogen 81 mg/dl Creatinine 1.01 mg/dl Est Glomerular Filtrat Rate mL/min mL/min Glucose Level 121 mg/dl Calcium Level 9.4 mg/dl Total Bilirubin 0.2 mg/dl Direct Bilirubin 0.00 mg/dl Indirect Bilirubin 0.2 mg/dl Aspartate Amino Transf (AST/SGOT) 20 IU/L Alanine Aminotransferase (ALT/SGPT) 19 IU/L Alkaline Phosphatase 192 IU/L Troponin I 0.036 ng/ml Total Protein 7.4 g/dl Albumin 3.2 g/dl Globulin 4.20 g/dl Albumin/Globulin Ratio 0.76 Procedures/MDM [place] [id number] Radiology Main Line: [phone] DIAGNOSTIC IMAGING REPORT Patient: KELI FARIAS : 1945 Age: 73 Sex: F [id number] DOS: 03/17/19 1229 Ordering MD: MAYLIN NATHAN MD Location: E/R Room/Bed: PROCEDURE: XR Chest. CLINICAL INDICATION: Chest pain TECHNIQUE: Single frontal view of the chest was obtained. COMPARISON: None FINDINGS: The heart is within normal limits. The thoracic aorta is calcified. There is a tracheostomy tube in place. There are chronic interstitial changes throughout the lungs. There is a small right pleural effusion . There is no pneumothorax. RPTAT: AA IMPRESSION: Chronic interstitial changes throughout the lungs. Small right pleural effusion. Calcified aorta consistent with atherosclerotic disease. .Escobar Mckeon MD, MD Date Time Electronically viewed and signed by .Escobar Mckeon MD, on 03/17/2019 13:00 .S/ CC: MAYLIN NATHAN MD [phone] EKG: Read by emergency physician Rate/Rhythm: Atrial fibrillation 104 beats/min QRS, ST, T-waves: No ST elevation, no T inversion, artifacts Impression: Abnormal EKG ABG, brain CT Pending MEDICAL MAKING DECISION: The patient is 73-year-old female, presenting with acute gastrointestinal bleeding, hemoglobin was 9.2 on December 15, 2018. She is stable in the emergency department The differential diagnoses considered include but are not limited to gastritis, peptic ulcer disease, esophageal varices, Lita-Fontanez tear, carcinoma, polyp, hemorrhoid, fissure, diverticulosis, angiodysplasia. Departure Diagnosis: Primary Impression: GI bleed Additional Impressions: Anemia Pleural effusion, right Condition: Stable Comments I discussed the findings with the patient. I discussed the patient with Alan at 2 PM, who was made aware of the lab, the treatment, the patient condition, pending CT. The patient is admitted to [facility] Disclaimer: Inadvertent spelling and grammatical errors are likely due to EHR/dictation software use and do not reflect on the overall quality of patient care. Also, please note that the electronic time recorded on this note does not necessarily reflect the actual time of the patient encounter. MAYLIN NATHAN MD March 17, 2019 12:19
[2019-03-17] MEDS ORDERED: CHLO473M4 MM (13:19)
[2019-03-17] MEDS ORDERED: DOCU-144 GTB (13:19)
[2019-03-17] MEDS ORDERED: DIGO125T19 GTB (13:21)
[2019-03-17] MEDS ORDERED: BISA10SU55 RC (13:23)
[2019-03-17] MEDS ORDERED: MINE133E23 PR (13:24)
[2019-03-17] MEDS ORDERED: LEVE500S8 PO (13:25)
[2019-03-17] MEDS ORDERED: METO-448 GTB (13:26)
[2019-03-17] MEDS ORDERED: MULTI GTB (13:28)
[2019-03-17] MEDS ORDERED: MAGN400O19 GTB (13:28)
[2019-03-17] MEDS ORDERED: AMIN30LI GTB (13:30)
[2019-03-17] MEDS ORDERED: EPOE40009 IJ (13:31)
[2019-03-17] MEDS ORDERED: ACET325T33 GTB ×3 (13:36)
[2019-03-17] MEDS ORDERED: ACET-141 PO (13:36)
[2019-03-17] MEDS ORDERED: CRAN3875 GTB (13:37)
[2019-03-17] MEDS ORDERED: ASC500 GTB (13:38)
[2019-03-17] MEDS ORDERED: LEVA1.25 INHALATION (13:40)
[2019-03-17] MEDS ORDERED: LEVA1.2523 INHALATION (13:40)
[2019-03-17 19:48] VITALS: RESP 20
[2019-03-17 19:51] VITALS: PULSE 88
[2019-03-17 20:00] VITALS: BP 104/53; PULSE 87; PULSE 94; RESP 20; Ht 160 cm; Wt 66.4 kg
[2019-03-17] MEDS ORDERED: BISACODYL 10 MG SUPP PR PRN (21:00)
[2019-03-17] MEDS ORDERED: MAGNESIUM HYDROXIDE 30ML CUP GTB PRN (21:00)
[2019-03-17] MEDS ORDERED: ACETAMINOPHEN 325 MG TAB GTB PRN (21:00)
[2019-03-17 21:26] VITALS: RESP 20
[2019-03-17] MEDS ORDERED: ACETAMINOPHEN 650MG/20.3ML CUP GTB PRN (21:30)
[2019-03-17] MEDS: LEVALBUTEROL (NEB) 0.63 MG/3 ML AMP HHN SCH (22:11)
[2019-03-17] MEDS: SOD CHLORIDE 0.45% 1,000 ML IV SCH (22:18)
[2019-03-17] MEDS: LEVETIRACETAM (100 MG/ML) 5ML CUP GTB SCH (22:53)
[2019-03-17] MEDS: METOPROLOL 25 MG TAB GTB SCH (22:53)
[2019-03-17] MEDS: ASCORBIC ACID 500 MG TAB GTB SCH (22:59)
[2019-03-17] MEDS: CHLORHEXIDINE GLUCONATE 15 ML UD CUP MM SCH (22:59)
[2019-03-17 23:20] VITALS: RESP 22
[2019-03-18] VITALS (21 sets, daily range): BP systolic 81–133; BP diastolic 43–63; PULSE 60–90; RESP 20–22
[2019-03-18] MEDS: LEVALBUTEROL (NEB) 0.63 MG/3 ML AMP HHN SCH ×4 (01:50→19:40)
--- NOTE | 2019-03-18 02:55 | HP ---
DATE OF ADMISSION: 03/17/2019 CHIEF COMPLAINT AND HISTORY OF PRESENT ILLNESS: The patient is a 73-year-old female well known to me from previous several admissions. The patient has history of COPD, chronic respiratory failure, CVA , paroxysmal atrial fibrillation, seizure disorder, anemia of chronic kidney disease, history of chi tolic congestive heart failure, pulmonary fibrosis. The patient also is status post cardiopulmonary arrest. The patient at baseline is noncommunicative and is vent dependent. The patient is being fol lowed by Dr. Rambo Davenport from pulmonary standpoint at [facility]. I was call ed this morning regarding the patient's hemoglobin being around 7.8. The patient was sent to [facility] ER for further evaluation and management. The patient did not have any obvious hemateme sis or melena. No reported hematuria. No reported any known peptic ulcer disease. The patient has a G-tube since 11/2018. The patient did not have any fever or chills. No history of leg edema. No history of any change in her respiratory status or mental status. The patient is awake however nonve rbal and no useful communication was possible. The patient also was noted to have stable vital signs and her hemoglobin was noted to be 7.8 down from 9.2 back in 12/2018. Chemistry revealed BUN of 81 up from 53 approximately 3 months ago. The patient had normal AST and ALT, although slightly elevate d. Chest x-ray revealed chronic interstitial changes, small right pleural effusion. CT of the head was negative for any intracranial hemorrhage, mass effect or midline shift. The patient was noted to have multiple areas of chronic infarct in the right parietal, occipital and temporal lobes with poss ible meningioma. The patient is being admitted for further evaluation and management. REVIEW OF SYSTEMS: Limited because the patient was noncommunicative, although she did not have any t emperature spike or wheezing or any known tonic-clonic activity. PAST MEDICAL HISTORY: As stated above. In addition back in early part of 2018, the patient was diag nosed with epilepsy based on EEG and also was diagnosed with acute CVA. The patient was seen by Dr. Meng at that time. In addition, the patient also has history of anemia of chronic disease for which she had been getting Procrit. ALLERGIES: NO KNOWN DRUG ALLERGIES. PAST SURGICAL HISTORY: Status post tracheostomy and G-tube placement. FAMILY HISTORY: No pertinent family history. SOCIAL HISTORY: Ex-smoker, quit smoking when she underwent tracheostomy few months ago. FAMILY HISTORY: Noncontributory for patient's condition. PHYSICAL EXAMINATION: GENERAL: Revealed the patient to be lethargic but arousable, does not follow any commands. VITAL SIGNS: Upon arrival in the ER, temperature 97.3, pulse 60, respiration 20, blood pressure 115/ 67, O2 saturation 97% on FiO2 of 35% on full vent support. HEENT: No eye discharge or redness. Conjunctivae and lids are normal. Nose and ears are normal. O ropharynx is grossly negative. NECK: Tracheostomy in place. No mass. CHEST: Diminished air entry at bases. No use of accessory muscles. CARDIOVASCULAR: S1, S2 normal. No murmur, gallop or rub. ABDOMEN: Soft, nondistended, nontender. G-tube in place. EXTREMITIES: No edema, clubbing or cyanosis. NEUROLOGIC: The patient is lethargic but arousable; however does not follow any command. LABORATORY DATA: Sodium 139, potassium 4.7, BUN 81, creatinine 1. WBC 9.3, hemoglobin 7.8, platelet 481. IMPRESSION: 1. Worsening anemia probably due to anemia of chronic disease. The patient's last iron studies were done a few months ago and iron level was low, but also had low TIBC. Ferritin level was borderline high with a maximum of 336 back in 07/2018. The patient has had previous multiple negative stool for guaiac. We will obtain stool for OB again especially in view of elevated BUN. We will obtain GI co nsultation with Dr. Galdamez who had previously seen her. 2. Acute on chronic kidney disease. The patient's BUN has worsened. We will obtain nephrology cons ult from Dr. Grant. 3. Hypertension. Continue metoprolol. 4. Paroxysmal atrial fibrillation. Continue digoxin, metoprolol and we will add baby aspirin for ce rebrovascular accident prophylaxis. The patient will continue tube feeding. 5. Acute kidney injury. We will also give gentle hydration and monitor electrolytes. If the patien t does not have any improvement in her renal function, we will obtain nephrology consultation. The patient will be transfused 1 unit of PRBC and we will do followup CBC. We will continue to bud martin. We will discuss with the patient's family about goals of care. Prognosis for any meaningful kimberlee very remains poor. I spoke with the ER physician, Dr. Damir Carter and discussed with him about curr ent plan. I spoke with Dr. Rambo Davenport, patient's account administrator. Dictated By: JAYLEN VILLA/MONROE Conf#: [id number] DID#: [id number]
[2019-03-18] MEDS: LANSOPRAZOLE 30 MG CAP GTB SCH (06:24)
[2019-03-18] MEDS: DOCUSATE SODIUM 100 MG CAP PO SCH (08:43)
[2019-03-18] MEDS: ASCORBIC ACID 500 MG TAB GTB SCH (08:43)
[2019-03-18] MEDS: CHLORHEXIDINE GLUCONATE 15 ML UD CUP MM SCH ×2 (08:43→21:53)
[2019-03-18] MEDS: ASPIRIN 81 MG TAB NGT SCH (08:43)
[2019-03-18] MEDS: LEVETIRACETAM (100 MG/ML) 5ML CUP GTB SCH ×2 (08:44→21:53)
[2019-03-18] MEDS: METOPROLOL 25 MG TAB GTB SCH ×2 (08:44→21:54)
[2019-03-18] MEDS: MULTIVITAMINS 30 ML CUP GTB SCH (08:46)
[2019-03-18] MEDS: DIGOXIN 0.125 MG TAB PO SCH (13:00)
--- NOTE | 2019-03-18 14:03 | CONS ---
Assessment/Plan Assessment/Plan Hospital Course (Demo Recall) 73 yo with #Anemia -pt is noted to have a macrocytic anemia which is mostly likely 2/2 underlying myelodysplastic syndrome -will check epo level and start epogen 20,000 units weekly -check iron panel -check vitamin b12 and folate levels -past workup for anemia reveals a negative SPEP and no signs of hemolysis. will however recheck LDH, haptoglobin and retic Consultation Date/Type/Reason Admit Date/Time March 17, 2019 at 14:33 Date of Consultation: March 18, 2019 Type of Consult hematology Reason for Consultation anemia Requesting Provider: JAYLEN LUGO MD Date/Time of Note DATE: 03/18/19 TIME: 13:49 Hx of Present Illness 73 yo female with multiple medical problems including COPD, chronic respiratory failure, CVA, paroxysmal atrial fibrillation, seizure disorder, anemia of chronic kidney disease, history of diastolic congestive heart failure, and pulmonary fibrosis, who was admitted from her subacute facility for sever anemia and Hg 7.8. History did not reveal evidence of melena or GI bleed. PT has had a G tube since 11/2018. Since admission pt has received 1 unit of PRBCs. Thus far, patients anemia workup reveals macrocytosis, elevated Creatinine 1.04. Constitutional: no complaints, disoriented, poor po Eyes: no complaints ENT: no complaints Respiratory: no complaints Cardiovascular: no complaints Gastrointestinal: no complaints Genitourinary: no complaints Musculoskeletal: no complaints, bone/joint pain Neurologic: no complaints Endocrine: no complaints Past Medical History Chronic respiratory failure, dyslipidemia, hypertension, history of CHF, atrial fibrillation, COPD, history of CVA, epilepsy, pulmonary fibrosis, anemia, status post cardiac arrest Home Meds Reported Medications Levalbuterol Hcl* (Xopenex*) 1.25 Mg/0.5 Ml Vial.neb, 1.25 MG INHALATION Q6H for WHEEZING AND SOB, EA 03/17/19 Levalbuterol Hcl* (Levalbuterol Hcl*) 1.25 Mg/0.5 Ml Vial.neb, 1.25 MG INHALATION Q3H, VIAL 03/17/19 Ascorbic Acid (Vitamin C) 500 Mg Tab, 500 MG GTB DAILY, TAB 03/17/19 Cran/Vitc/Mannose/Inulin/Brom (Uti-Stat Liquid) 3,875 Mg/30 Ml Liquid, 30 ML GTB BID 03/17/19 Acetaminophen* (Acetaminophen*) 500 MG Extra Strength Tablet, 1000 MG PO Q4H PRN for NEEDED, TAB UNTIL 04/16/19 03/17/19 Acetaminophen* (Tylenol*) 325 Mg Tablet, 650 MG GTB BID PRN for PAIN MGT, TAB 03/17/19 Acetaminophen* (Tylenol*) 325 Mg Tablet, 650 MG GTB Q4H PRN for MILD PAIN LEVEL 1-3, TAB AND FEVER 101F, END DATE 04/16/19 03/17/19 Acetaminophen* (Tylenol*) 325 Mg Tablet, 650 MG GTB NEEDED PRN for TRACH TUBE CHANGE, TAB 03/17/19 Epoetin Amor (Procrit) 4,000 Unit/1 Ml Vial, 4000 UNIT IJ Q WED, VIAL 03/17/19 Amino Acids/Protein Hydrolys (PRO-STAT LIQUID) 30 Ml Liquid.pkt, 30 ML GTB DAILY 03/17/19 Multivitamins* (Theragran*) 1 Tab Tab, 1 TAB GTB DAILY, TAB 03/17/19 Magnesium Hydroxide* (Milk Of Magnesia*) 400 Mg/5 Ml Oral.susp, 30 ML GTB NEEDED, ML END DATE 04/16/19 03/17/19 Metoprolol Tartrate* (Lopressor*) 25 Mg Tab, 25 MG GTB BID, #60 TAB HOLD IF SBP<110 OR HR<60 03/17/19 Levetiracetam* (Levetiracetam*) 500 Mg/5 Ml Solution, 2.5 ML PO Q12H, ML 03/17/19 Mineral Oil* (Fleet* Mineral Oil Enema) Unknown Strength Oil, 1 APPLIC OH NEEDED PRN for CONSTIPATION, ENEMA 03/17/19 Bisacodyl (Dulcolax) 10 Mg Supp.rect, 10 MG RC NEEDED, SUPP.RECT UNTIL 04/16/19 03/17/19 Digoxin* (Digox*) 125 Mcg Tablet, 0.125 MG GTB DAILY PRN for HOLD IF HR<60, TAB 03/17/19 Docusate Sodium* (Colace*) 100 Mg Capsule, 100 MG GTB DAILY, #30 CAP 03/17/19 Chlorhexidine Gluconate (Peridex) 473 Ml Mouthwash, 15 ML MM Q12H, BOTTLE 03/17/19 Discontinued Reported Medications Methylprednisolone Sodium Succinate PF (Solu-Medrol PF) 40 Mg/1 Ml Vial, 30 MG IV Q8H, VIAL 10/27/18 Magnesium Hydroxide* (Milk Of Magnesia*) 400 Mg/5 Ml Oral.susp, 30 ML PO BID, ML 10/27/18 Magnesium Oxide* (Magnesium Oxide*) 400 Mg Tablet, 400 MG PO BID, TAB 10/27/18 Morphine Sulfate* (Morphine* Liq) 10 Mg/0.5 Ml Disp.syrin, 6 ML SL Q4H PRN for PAIN, ML 10/27/18 Metoprolol Tartrate* (Lopressor*) 25 Mg Tab, 25 MG PO BID, #60 TAB HOLD FOR SBP<110 OR HR<60 10/27/18 Levalbuterol Hcl* (Levalbuterol Hcl*) 1.25 Mg/0.5 Ml Vial.neb, 1.25 MG INHALATION Q6H, VIAL 10/27/18 Furosemide* (Lasix*) 20 Mg Tablet, 20 MG PO DAILY, TAB 10/27/18 Famotidine* (Famotidine*) 20 Mg Tablet, 20 MG PO DAILY, #30 TAB 10/27/18 Digoxin* (Digitek*) 125 Mcg Tablet, 0.125 MG PO DAILY, TAB 10/27/18 Collagenase* (Santyl*) 30 Gm Oint..gm., 1 APPLIC TOP .SOILED PRN for SOILED, #1 TUB 10/27/18 Budesonide* (Budesonide*) 0.5 Mg/2 Ml Ampul.neb, 0.5 MG INHALATION BID, AMP 10/27/18 Apixaban* (Eliquis*) 2.5 Mg Tablet, 2.5 MG PO BID, TAB 10/27/18 Ipratropium-Albuterol (Ipratropium-Albuterol) 0.5-3 Mg/3 Ml Ampul.neb, 3 ML INHALATION Q6, #30 VIAL 10/22/18 Bethanechol Chloride* (Bethanechol Chloride*) 25 Mg Tablet, 25 MG PO TID, TAB 10/22/18 Ondansetron Hcl* (Zofran*) 4 Mg Tab, 4 MG PO Q6H PRN for NAUSEA AND OR VOMITING, TAB 05/10/18 L. Acidophilus/Pectin, [place] (Acidophilus Capsule) 1 Each Capsule, 1 EACH PO DAILY, CAP 05/10/18 Epoetin Amor (Epogen) 10,000 Units/Ml Soln, 1.5 ML SC Q MON,WED,FRI,5PM, VIAL 05/10/18 Cyanocobalamin* (Vitamin B-12*) 1,000 Mcg Tablet.sa, 1000 MCG PO BID, TAB 05/10/18 Folic Acid* (Folic Acid*) 1 Mg Tablet, 1 MG PO DAILY, TAB 05/10/18 Atorvastatin Calcium* (Atorvastatin Calcium*) 20 Mg Tablet, 20 MG PO QHS, #30 TAB 05/10/18 Allopurinol* (Allopurinol*) 100 Mg Tablet, 100 MG PO BID for GOUT, TAB 05/10/18 Mineral Oil* (Fleet* Mineral Oil Enema) 133 Ml Oil, 1 APPLIC OH NEEDED PRN for Q2DAYS, ENEMA 05/10/18 Docusate Sodium* (Colace*) 100 Mg Capsule, 100 MG PO Q9PM, #30 CAP 05/10/18 Ferrous Sulfate* (Ferrous Sulfate*) 325 Mg Tabec, 325 MG PO DAILY, TAB 05/10/18 Ascorbic Acid (Vitamin C) 500 Mg Tab, 500 MG PO DAILY, TAB 05/10/18 Multivitamins* (Theragran*) 1 Tab Tab, 1 TAB PO DAILY, TAB 05/10/18 Acetaminophen* (Tylenol*) 325 Mg Tablet, 650 MG PO NEEDED PRN for TRACH TUBE CHANGE, TAB 05/10/18 Medications Current Medications Acetaminophen (Tylenol Liquid) 650 mg Q4H PRN GTB MILD PAIN 1-3; Start 03/17/19 at 21:30 Ascorbic Acid (Vitamin C) 500 mg DAILY GTB Last administered on 03/18/19at 08:43; Admin Dose 500 MG; Start 03/17/19 at 21:00 Bisacodyl (Dulcolax Supp) 10 mg DAILY PRN OH CONSTIPATION; Start 03/17/19 at 21:00 Chlorhexidine Gluconate (Peridex) 15 ml Q12H MM Last administered on 03/18/19at 08:43; Admin Dose 15 ML; Start 03/17/19 at 21:00 Digoxin (Digoxin) 0.125 mg DAILY@13 PO ; Start 03/18/19 at 13:00 Docusate Sodium (Colace) 100 mg DAILY PO Last administered on 03/18/19 08:43; Admin Dose 100 MG; Start 03/18/19 at 09:00 Levalbuterol (Xopenex Neb) 0.63 mg Q6H RESP THERAPY HHN Last administered on 03/18/19 13:08; Admin Dose 0.63 MG; Start 03/17/19 at 21:08 Levetiracetam (Keppra Liquid) 250 mg Q12H GTB Last administered on 03/18/19 08:44; Admin Dose 250 MG; Start 03/17/19 at 21:00 Magnesium Hydroxide (Milk Of Mag) 30 ml DAILY PRN GTB CONSTIPATION; Start 03/17/19 at 21:00 Metoprolol Tartrate (Lopressor) 25 mg BID GTB Last administered on 03/18/19 08:44; Admin Dose 25 MG; Start 03/17/19 at 21:00 Multivitamins (Multivitamin) 30 ml DAILY GTB Last administered on 03/18/19 08:46; Admin Dose 30 ML; Start 03/18/19 at 09:00 Sodium Chloride 1,000 ml @ 50 mls/hr Q20H IV Last administered on 03/17/19 22:18; Admin Dose 50 MLS/HR; Start 03/17/19 at 21:00 Aspirin (Aspirin) 81 mg DAILY NGT Last administered on 03/18/19at 08:43; Admin Dose 81 MG; Start 03/18/19 at 09:00 Lansoprazole (Prevacid) 30 mg DAILY@06 GTB Last administered on 03/18/19at 06:24; Admin Dose 30 MG; Start 03/18/19 at 06:00 Epoetin Amor-epbx (RETACRIT(non-esrd)) 40,000 unit We@1700 SC ; Start 03/19/19 at 17:00 Allergies: Coded Allergies: No Known Allergy (Unverified , 03/17/19) Past Surgical History Tracheostomy, G-tube Past Surgical Hx: other Family History Significant Family History: no pertinent family hx Social History Alcohol Use: none Smoking Status: Never smoker Drug Use: none Exam/Review of Systems Exam Vitals Vital Signs Date Temp Pulse Resp B/P (MAP) Pulse Ox O2 O2 Flow FiO2 Time Delivery Rate 03/18/19 60 20 100 30 13:09 03/18/19 98.3 81/43 (56) Mechanical 11:31 Ventilator Intake and Output 03/17/19 03/17/19 03/18/19 1515:00 23:00 07:00 IntakeIntake Total 300 ml OutputOutput Total 1400 ml BalanceBalance -1100 ml Constitutional: alert, frail Head: normocephalic Eyes: nl conjunctiva ENMT: nl external ears & nose Neck: supple Respiratory: clear to auscultation Cardiovascular: regular rate and rhythm Gastrointestinal: soft, other (G tube) Musculoskeletal: nl extremities to inspection Results Result Diagram: 03/18/19 0620 03/18/19 0620 Results 24hrs Laboratory Tests Test 03/18/19 06:20 White Blood Count 8.2 Red Blood Count 2.31 L Hemoglobin 7.2 L Hematocrit 24.7 L Mean Corpuscular Volume 106.9 H Mean Corpuscular Hemoglobin 31.2 Mean Corpuscular Hemoglobin Concent 29.1 L Red Cell Distribution Width 18.6 H Platelet Count 449 H Mean Platelet Volume 9.5 Immature Granulocytes % 1.100 H Neutrophils % 70.3 Lymphocytes % 22.0 Monocytes % 5.0 Eosinophils % 1.2 Basophils % 0.4 Nucleated Red Blood Cells % 0.0 Immature Granulocytes # 0.090 H Neutrophils # 5.7 Lymphocytes # 1.8 Monocytes # 0.4 Eosinophils # 0.1 Basophils # 0.0 Nucleated Red Blood Cells # 0.0 Sodium Level 142 Potassium Level 4.3 Chloride Level 103 Carbon Dioxide Level 31 Anion Gap 8 Blood Urea Nitrogen 73 H Creatinine 1.04 H Est Glomerular Filtrat Rate mL/min Glucose Level 103 Calcium Level 8.9 Medications Medication Current Medications Acetaminophen (Tylenol Liquid) 650 mg Q4H PRN GTB MILD PAIN 1-3; Start 03/17/19 at 21:30 Ascorbic Acid (Vitamin C) 500 mg DAILY GTB Last administered on 03/18/19at 08:43; Admin Dose 500 MG; Start 03/17/19 at 21:00 Bisacodyl (Dulcolax Supp) 10 mg DAILY PRN OH CONSTIPATION; Start 03/17/19 at 21:00 Chlorhexidine Gluconate (Peridex) 15 ml Q12H MM Last administered on 03/18/19at 08:43; Admin Dose 15 ML; Start 03/17/19 at 21:00 Digoxin (Digoxin) 0.125 mg DAILY@13 PO ; Start 03/18/19 at 13:00 Docusate Sodium (Colace) 100 mg DAILY PO Last administered on 03/18/19 08:43; Admin Dose 100 MG; Start 03/18/19 at 09:00 Levalbuterol (Xopenex Neb) 0.63 mg Q6H RESP THERAPY HHN Last administered on 03/18/19 13:08; Admin Dose 0.63 MG; Start 03/17/19 at 21:08 Levetiracetam (Keppra Liquid) 250 mg Q12H GTB Last administered on 03/18/19 08:44; Admin Dose 250 MG; Start 03/17/19 at 21:00 Magnesium Hydroxide (Milk Of Mag) 30 ml DAILY PRN GTB CONSTIPATION; Start 03/17/19 at 21:00 Metoprolol Tartrate (Lopressor) 25 mg BID GTB Last administered on 03/18/19 08:44; Admin Dose 25 MG; Start 03/17/19 at 21:00 Multivitamins (Multivitamin) 30 ml DAILY GTB Last administered on 03/18/19 08: 46; Admin Dose 30 ML; Start 03/18/19 at 09:00 Sodium Chloride 1,000 ml @ 50 mls/hr Q20H IV Last administered on 03/17/19 22:18; Admin Dose 50 MLS/HR; Start 03/17/19 at 21:00 Aspirin (Aspirin) 81 mg DAILY NGT Last administered on 03/18/19 08:43; Admin Dose 81 MG; Start 03/18/19 at 09:00 Lansoprazole (Prevacid) 30 mg DAILY@06 GTB Last administered on 03/18/19 06:24; Admin Dose 30 MG; Start 03/18/19 at 06:00 Epoetin Amor-epbx (RETACRIT(non-esrd)) 40,000 unit We@1700 SC ; Start 03/19/19 at 17:00 IJEOMA GROSSMAN M.D. March 18, 2019 14:02
--- NOTE | 2019-03-18 15:28 | CONS ---
DATE OF ADMISSION: 03/17/2019 DATE OF CONSULTATION: 03/18/2019 TYPE OF CONSULTATION: Pulmonary REQUESTING: Dr. Jaylen Lugo Thank you, Dr. Lugo, for referring this patient in pulmonary consultation. HISTORY OF PRESENT ILLNESS: As you know, this is 73-year-old female who is a long-term resident in [facility], being ventilator dependent, was transferred to the hospital yesterday with a history of low hemoglobin and hematocrit. The patient has not had any obvious external bleeding like hemate mesis, hemoptysis, melena, hematochezia or hematuria. The patient has had respiratory failure and is ventilator dependent. She has also had a cardiac arrest resulting in chronic encephalopathic state. She has a history of advanced chronic obstructive pulmonary disease and also congestive heart failu re. In addition, she has history of paroxysmal atrial fibrillation. She has a history of hypertensi on, dyslipidemia, chronic anemia. She is also known to have pulmonary fibrosis. In addition, she marks s a history of cerebrovascular accidents. The patient has a long smoking prior to the onset of present illness until a few years ago with advan cing COPD and having had respiratory failure, she has been a nonsmoker. The patient is ventilator dependent and has had a tracheostomy. She also has a gastrostomy for tube feeding. MEDICATIONS: 1. Albuterol inhalation. 2. Ascorbic acid. 3. Cranberry with vitamin C tablets. 4. Tylenol. 5. Epogen. 6. Multivitamin supplements. 7. Magnesium hydroxide as needed. 8. Metoprolol. 9. Keppra. 10. Mineral oil as needed. 11. Dulcolax suppository as needed. 12. Digoxin. 13. Colace. 14. Peridex mouthwash. 15. Solu-Medrol. 16. Magnesium hydroxide. 17. Magnesium oxide. 18. Morphine sulfate. 19. Lasix. 20. Pepcid. 21. Eliquis. 22. Atrovent inhalation. 23. Vitamin B12. 24. Lactobacillus acidophilus capsules. 25. Probiotic. 26. Lipitor. 27. Allopurinol. 28. Ferrous sulfate. In the Emergency Room the patient was found to have anemia with a hemoglobin of 7.8 hematocrit 26.1. She received blood transfusion. Subsequently she was also admitted to the medical floor with teleme try monitoring. PHYSICAL EXAMINATION: GENERAL: Shows an elderly female patient who is in status with eyes partly open, but makes eye contact and does not follow. She is on long-term ventilator support without showing any signs of re spiratory distress. VITAL SIGNS: Today shows temperature 98.3, blood pressure 81/43, pulse rate of 60, respirations 20, pulse oximetry 96% saturation. HEENT: Head looks normal. No scleral icterus is seen. Throat could not be seen. She would not injury prevention coordinator perate and open her mouth fully. Oral mucosa appears moist. NECK: No retinopathy. No jugular venous distention seen. HEART: Regular rhythm, normal first and second heart sounds. CHEST: Breath sounds are heard, more diminished with a few occasional rales and rhonchi. Lung field s are mostly clear. ABDOMEN: Soft, not localized, distant. No localized tenderness. Tolerating G-tube feedings. Bowel sounds are normally heard. EXTREMITIES: Show no edema. Relevant spasticity in all extremities. No cyanosis, no calf tendernes s. NEUROLOGIC: The patient is non-cognitive. Eyes are partly open, but she makes eye contact and does not follow when spoken to. Shows facial grimacing and reaction to deep painful stimuli. No spontane ous movements are seen. IMAGING: The chest x-ray taken in the Emergency Room is reported to show chronic interstitial change s throughout both the lungs with a small right pleural effusion. The CT scan of the brain is reporte d to show a moderate generalized atrophy with severe chronic microangiopathic micro angioplasty, isch emic changes. Multiple areas of chronic infarcts involving the right parietal, occipital and tempora l lobes are seen. LABORATORY DATA: From today shows a WBC of 8200, hemoglobin 7.2, hematocrit 34.7, platelets are incr eased to 449,000. The chemistry panel shows sodium 142, potassium 4.3, BUN 73, creatinine 1.04, gluc ose 103, calcium 8.9. ASSESSMENT AND PLAN: 1. Chronic ventilator dependent respiratory failure. 2. Chronic encephalopathy following cardiac arrest. 3. History of advanced chronic obstructive lung disease. 4. History of congestive heart failure. 5. History of paroxysmal atrial fibrillation. 6. Status post cerebrovascular accident. 7. History of seizure disorder. 8. Chronic anemia. 9. Azotemia, probably secondary to dehydration. RECOMMENDATIONS: 1. From a pulmonary standpoint, the patient will need to be continued on long-term ventilator suppor t. She is not a candidate for any weaning. 2. Continue bronchodilator inhalation therapy to maintain the pulmonary hygiene and clear the secret ions. 3. Continue G-tube feedings. 4. Treat anemia and transfuse as needed based on the hemoglobin and hematocrit readings. The patien t's general condition and prognosis have been discussed in detail with the patient's family members s everal times in the assisted. The family is fully aware of condition and prognosis. Thank you, Dr. Lugo, for referring this patient in pulmonary consultation. Dictated By: KORTNEY GAMEZ MD SR/NTS Conf#: [id number] DID#: [id number] CC: JAYLEN LUGO MD;*EndCC*
--- NOTE | 2019-03-18 16:02 | CONS ---
DATE OF ADMISSION: 03/17/2019 DATE OF CONSULTATION: 03/18/2019 TYPE OF CONSULTATION: Nephrology. REASON FOR CONSULTATION: Chronic kidney disease. PHYSICIAN REQUESTING CONSULT: Jaylen Phillips MD HISTORY OF PRESENT ILLNESS: This is a 73-year-old female with a past medical history of ventilatory dependent respiratory failure, history of dysphagia, history of dyslipidemia, hypertension, history o f CHF, COPD, history of AFib, history of chronic kidney disease with baseline creatinine around 1.0 m g/dL, who presents to [facility] due to abnormal labs. The patient upon arrival to the emergency room had a CT scan of the brain which showed no acute findings. The patient was diagn osed with anemia in the emergency room, possible GI bleed. The patient was subsequently admitted to telemetry for further evaluation. In terms of patient's renal history, the patient has a history of chronic kidney disease with previou s baseline creatinine of 1.0 mg/dL. On admission, the patient's renal function was at baseline. The re were no reports of any rashes or any hematuria. PAST MEDICAL HISTORY: As stated above, history of ventilatory dependent respiratory failure, history of dysphagia, history of coronary artery disease, history of COPD, CVA, epilepsy, pulmonary fibrosis , hypertension. PAST SURGICAL HISTORY: Status post trach, status post PEG placement. FAMILY HISTORY: Noncontributory. MEDICATIONS: Have been reviewed. ALLERGIES: HAVE BEEN REVIEWED. REVIEW OF SYSTEMS: Unable to do adequate review of systems as patient is altered. Pertinent positiv es were as stated, reviewed medical records, speaking to hospital staff and stated in HPI; otherwise negative. PHYSICAL EXAMINATION: VITAL SIGNS: Blood pressure is 81/43, respiratory rate 20, pulse 60, temperature 98.3. HEENT: Head is normocephalic. HEART: Regular rate. LUNGS: Show diminished breath sounds at base. ABDOMEN: Soft, nontender to palpation. No rebound or guarding. EXTREMITIES: Negative for clubbing, cyanosis. Trace edema. DERMATOLOGIC: No rashes. MUSCULOSKELETAL: No joint effusion. NEUROLOGIC: No change in exam. LABORATORY DATA: Have been reviewed. ASSESSMENT AND PLAN: This is a 73-year-old female who presents with: 1. Nonoliguric acute kidney injury on top of chronic kidney disease with previous baseline creatinin e of around 1.0 mg/dL. Etiology of current acute kidney injury is secondary to hemodynamics, possibl e volume depletion. Plan at this point is to check UA with microanalysis. Check urine electrolytes. Calculate a FENa. We would continue and I agree with gentle fluid challenge. Otherwise, continue current treatment plan, supportive care, renally dose all meds. Monitor I's and O's and renal functi on closely. 2. Anemia. Monitor hemoglobin and hematocrit levels. 3. Mineral bone disorder. Monitor calcium and phosphate levels. 4. Hypotension, possibly due to volume depletion. The patient has been on IV fluids. We will monit or volume status closely. 5. Ventilatory dependent respiratory failure. Vent settings were reviewed. Continue current treatm ent. Follow up with pulmonary. 6. Dysphagia. Continue tube feeding. 7. Seizure disorder. Continue current medical management. 8. Encephalopathy, chronic. Continue to monitor. 9. History of cerebrovascular accident. Continue current treatment plan. 10. Anemia with possible gastrointestinal bleed. The patient has been by hematology. Currently on Epogen. We follow up iron panel. Follow up iron, B12, folic acid level. Thank you, Dr. Phillips, for this interesting consult. It will be a pleasure to follow patient with you throughout the hospital course. Dictated By: RAJINDER ATWOOD DO NR/NTS Conf#: [id number] DID#: [id number] CC: JAYLEN PHILLIPS MD;*EndCC*
[2019-03-18] MEDS: SOD CHLORIDE 0.45% 1,000 ML IV SCH (17:00)
[2019-03-18] MEDS ORDERED: EPOETIN 4000 UNITS/ML VIAL (ONCOLOGY) SC SCH (17:00)
[2019-03-18] MEDS ORDERED: BISACODYL (EC) 5 MG TAB PO STA (17:57)
[2019-03-18] MEDS ORDERED: NA PHOSPHATE/BIPHOS 133 ML ENEMA PR STA (17:58)
--- NOTE | 2019-03-18 18:38 | PN ---
Date/Time of Note Date/Time of Note DATE: 03/18/19 TIME: 18:28 Assessment/Plan VTE Prophylaxis Risk score (from [facility] [place])>0 risk: 6 SCD applied (from [facility] [place]): Yes Pharmacological prophylaxis: NA/contraindicated Pharm contraindication: other Lines/Catheters IV Catheter Type (from [facility]): Peripheral IV Urinary Cath still in place: Yes Reason Cath still needed: urinary retention Assessment/Plan Hospital Course Patient continues on ventilatory support without distress, lethargic, hemodynamically stable. Assessment/Plan -Anemia, rule out GI bleed. Dr. Galdamez is following in gastroenterology consultation. Dr. Kiser is following in hematology consultation -Ventilator dependent respiratory failure with tracheostomy. Dr. Davenport is following in pulmonology consultation. -Acute on chronic kidney disease. Monitor BUN and creatinine. Dr. Grant is following in nephrology consultation -Atrial fibrillation, continue metoprolol -Diastolic congestive heart failure. Dr. Hernandez is following in cardiology consultation. -Pulmonary fibrosis, continue Pulmicort. -Dysphagia with G-tube. -Chronic encephalopathy -COPD -History of CVA, continue aspirin. -Seizure disorder/status epilepticus. Continue Keppra and Ativan as needed. -MRSA nares colonization Further recommendations based on clinical course. Plan of care discussed with Dr. Phillips. Result Diagram: 03/18/19 0620 03/18/19 0620 Results 24hrs Laboratory Tests Test 03/18/19 06:20 03/18/19 14:17 03/18/19 16:01 White Blood Count 8.2 Red Blood Count 2.31 L Hemoglobin 7.2 L Hematocrit 24.7 L Mean Corpuscular Volume 106.9 H Mean Corpuscular Hemoglobin 31.2 Mean Corpuscular 29.1 L Hemoglobin Concent Red Cell Distribution Width 18.6 H Platelet Count 449 H Mean Platelet Volume 9.5 Immature Granulocytes % 1.100 H Neutrophils % 70.3 Lymphocytes % 22.0 Monocytes % 5.0 Eosinophils % 1.2 Basophils % 0.4 Nucleated Red Blood Cells % 0.0 Immature Granulocytes # 0.090 H Neutrophils # 5.7 Lymphocytes # 1.8 Monocytes # 0.4 Eosinophils # 0.1 Basophils # 0.0 Nucleated Red Blood Cells # 0.0 Sodium Level 142 Potassium Level 4.3 Chloride Level 103 Carbon Dioxide Level 31 Anion Gap 8 Blood Urea Nitrogen 73 H Creatinine 1.04 H Est Glomerular Filtrat Rate mL/min Glucose Level 103 Calcium Level 8.9 Absolute Reticulocyte Count 0.104 Percent Reticulocyte Count 3.8 H Lactate Dehydrogenase 354 Blood Gas Specimen Source Blood arterial Arterial Blood Date Drawn 03/18/2019 4:15:49 PM Arterial Blood pH 7.525 H (Temp corrected) Arterial Blood pCO2 35.5 (Temp correct) Arterial Blood pO2 90.5 H (Temp corrected) Arterial Blood HCO3 28.7 H Arterial Blood Base Excess 5.7 H Arterial Blood 97.0 Oxygen Saturation Jeremie Test N/A Arterial Blood Gas Right Brachial Puncture Site Arterial 1.1 Blood Carboxyhemoglobin Arterial Blood Methemoglobin 0 Blood Gas A-a O2 Differential 81.7 H Oxyhemoglobin Percent 95.9 Blood Gas Temperature 37.0 Blood Gas Respiration Rate 20.0 Blood Gas Actual 20 Respiration Rate Blood Gas Modality VENT - AC FiO2 30.0 Blood Gas Tidal Volume 500.0 Blood Gas Low PEEP Setting 5.0 Blood Gas Notified Whom CW Blood Gas Notified Time 03/18/2019 4:31:10 PM Exam/Review of Systems Exam Vitals Vital Signs Date Temp Pulse Resp B/P (MAP) Pulse Ox O2 O2 Flow FiO2 Time Delivery Rate 03/18/19 72 20 98 30 17:05 03/18/19 99.8 116/55 Mechanical 15:40 (75) Ventilator Intake and Output 03/17/19 03/17/19 03/18/19 1414:59 22:59 06:59 IntakeIntake Total 300 ml OutputOutput Total 1400 ml BalanceBalance -1100 ml Constitutional: frail Neck: other (trach) Respiratory: diminished breath sounds Cardiovascular: regular rate and rhythm Gastrointestinal: soft, non-tender, other (G-tube) Extremities: normal pulses Neurological: lethargic Results Results 24hrs Laboratory Tests Test 03/18/19 06:20 03/18/19 14:17 03/18/19 16:01 White Blood Count 8.2 Red Blood Count 2.31 L Hemoglobin 7.2 L Hematocrit 24.7 L Mean Corpuscular Volume 106.9 H Mean Corpuscular Hemoglobin 31.2 Mean Corpuscular 29.1 L Hemoglobin Concent Red Cell Distribution Width 18.6 H Platelet Count 449 H Mean Platelet Volume 9.5 Immature Granulocytes % 1.100 H Neutrophils % 70.3 Lymphocytes % 22.0 Monocytes % 5.0 Eosinophils % 1.2 Basophils % 0.4 Nucleated Red Blood Cells % 0.0 Immature Granulocytes # 0.090 H Neutrophils # 5.7 Lymphocytes # 1.8 Monocytes # 0.4 Eosinophils # 0.1 Basophils # 0.0 Nucleated Red Blood Cells # 0.0 Sodium Level 142 Potassium Level 4.3 Chloride Level 103 Carbon Dioxide Level 31 Anion Gap 8 Blood Urea Nitrogen 73 H Creatinine 1.04 H Est Glomerular Filtrat Rate mL/min Glucose Level 103 Calcium Level 8.9 Absolute Reticulocyte Count 0.104 Percent Reticulocyte Count 3.8 H Lactate Dehydrogenase 354 Blood Gas Specimen Source Blood arterial Arterial Blood Date Drawn 03/18/2019 4:15:49 PM Arterial Blood pH 7.525 H (Temp corrected) Arterial Blood pCO2 35.5 (Temp correct) Arterial Blood pO2 90.5 H (Temp corrected) Arterial Blood HCO3 28.7 H Arterial Blood Base Excess 5.7 H Arterial Blood 97.0 Oxygen Saturation Jeremie Test N/A Arterial Blood Gas Right Brachial Puncture Site Arterial 1.1 Blood Carboxyhemoglobin Arterial Blood Methemoglobin 0 Blood Gas A-a O2 Differential 81.7 H Oxyhemoglobin Percent 95.9 Blood Gas Temperature 37.0 Blood Gas Respiration Rate 20.0 Blood Gas Actual 20 Respiration Rate Blood Gas Modality VENT - AC FiO2 30.0 Blood Gas Tidal Volume 500.0 Blood Gas Low PEEP Setting 5.0 Blood Gas Notified Whom CW Blood Gas Notified Time 03/18/2019 4:31:10 PM Medications Medication Current Medications Acetaminophen (Tylenol Liquid) 650 mg Q4H PRN GTB MILD PAIN 1-3; Start 03/17/19 at 21:30 Ascorbic Acid (Vitamin C) 500 mg DAILY GTB Last administered on 03/18/19at 08:43; Admin Dose 500 MG; Start 03/17/19 at 21:00 Bisacodyl (Dulcolax Supp) 10 mg DAILY PRN [place] CONSTIPATION; Start 03/17/19 at 21:00 Chlorhexidine Gluconate (Peridex) 15 ml Q12H MM Last administered on 03/18/19at 08:43; Admin Dose 15 ML; Start 03/17/19 at 21:00 Digoxin (Digoxin) 0.125 mg DAILY@13 PO ; Start 03/18/19 at 13:00 Docusate Sodium (Colace) 100 mg DAILY PO Last administered on 03/18/19 08:43; Admin Dose 100 MG; Start 03/18/19 at 09:00 Levalbuterol (Xopenex Neb) 0.63 mg Q6H RESP THERAPY HHN Last administered on 03/18/19 13:08; Admin Dose 0.63 MG; Start 03/17/19 at 21:08 Levetiracetam (Keppra Liquid) 250 mg Q12H GTB Last administered on 03/18/19 08:44; Admin Dose 250 MG; Start 03/17/19 at 21:00 Magnesium Hydroxide (Milk Of Mag) 30 ml DAILY PRN GTB CONSTIPATION; Start 03/17/19 at 21:00 Metoprolol Tartrate (Lopressor) 25 mg BID GTB Last administered on 03/18/19 08:44; Admin Dose 25 MG; Start 03/17/19 at 21:00 Multivitamins (Multivitamin) 30 ml DAILY GTB Last administered on 03/18/19 08:46; Admin Dose 30 ML; Start 03/18/19 at 09:00 Sodium Chloride 1,000 ml @ 50 mls/hr Q20H IV Last administered on 03/17/19 22:18; Admin Dose 50 MLS/HR; Start 03/17/19 at 21:00 Aspirin (Aspirin) 81 mg DAILY NGT Last administered on 03/18/19 08:43; Admin Dose 81 MG; Start 03/18/19 at 09:00 Lansoprazole (Prevacid) 30 mg DAILY@06 GTB Last administered on 03/18/19 06:24; Admin Dose 30 MG; Start 03/18/19 at 06:00 Epoetin Amor-epbx (RETACRIT(non-esrd)) 40,000 unit We@1700 SC ; Start 03/19/19 at 17:00 Magnesium Citrate (Citroma) 300 ml ONCE ONCE PO ; Start 03/18/19 at 23:00; Stop 03/18/19 at 23:01 IMER VARGAS March 18, 2019 18:37
--- NOTE | 2019-03-18 19:33 | CONS ---
DATE OF ADMISSION: 03/17/2019 DATE OF CONSULTATION: TYPE OF CONSULTATION: Gastroenterology. From Justin Alicea MD, to Jaylen Phillips MD Thank you for kind consultation. HISTORY OF PRESENT ILLNESS: A 73-year-old female with a history of COPD, CVA, vent dependent respira tory failure, atrial fibrillation, anemia of chronic disease, CHF, status post cardiopulmonary arrest was admitted to the hospital for anemia. As per the staff, no gross GI bleeding was noted. The NG tube aspirate was not bloody and she has not had a bowel movement. Indeed, her BUN has gone up to 81 from 53. REVIEW OF SYSTEMS: Unable to do it. PAST MEDICAL HISTORY: As described. Besides, she had multiple strokes and possible meningioma. ALLERGIES: NO KNOWN DRUG ALLERGIES. PAST SURGICAL HISTORY: Trach and G-tube. SOCIAL HISTORY: Ex-smoker. FAMILY HISTORY: Nothing contributory. PHYSICAL EXAMINATION GENERAL: Sleepy, not in distress. VITAL SIGNS: Stable. HEENT: Unremarkable. NECK: Supple. No thyromegaly, no lymphadenopathy. CARDIOVASCULAR: No murmur, gallop or click. LUNGS: Clear. She is on vent. ABDOMEN: Benign. G-tube is in place. EXTREMITIES: No edema. LABORATORY DATA: BUN is 81. Hemoglobin was low at , normochromic normocytic picture. Platelet count was normal. Retic count was 3.8, absolute retic count was low. Alkaline phosphatase was mild ly elevated. IMPRESSION: 1. Anemia which is anemia of chronic disease, rule out gastrointestinal bleeding. 2. Chronic kidney disease. 3. Hypertension. 4. Paroxysmal atrial fibrillation. 5. Cerebrovascular accident. 6. Possible meningioma. 7. Vent dependent respiratory failure. 8. Dysphagia, status post G-tube. PLAN: At this point is to work her up for anemia. I have informed the staff nurse if they see black stool, they should contact me. In the interim, we will continue lansoprazole and monitor H and H. Dictated By: JUSTIN ALIECA MD PJ/NTS Conf#: [id number] DID#: [id number] CC: JAYLEN PHILLIPS MD;*EndCC*
[2019-03-18] MEDS ORDERED: MAGNESIUM CITRATE 300 ML BTL PO ONE (23:00)
[2019-03-19] VITALS (22 sets, daily range): BP systolic 99–132; BP diastolic 50–71; PULSE 73–88; RESP 20–24
[2019-03-19] MEDS: LEVALBUTEROL (NEB) 0.63 MG/3 ML AMP HHN SCH ×4 (01:27→20:17)
[2019-03-19] MEDS: LANSOPRAZOLE 30 MG CAP GTB SCH (06:40)
[2019-03-19] MEDS ORDERED: GLUCAGON 1 MG INJ ONE (07:00)
[2019-03-19] MEDS: MULTIVITAMINS 30 ML CUP GTB SCH (08:54)
[2019-03-19] MEDS: ASPIRIN 81 MG TAB NGT SCH (08:55)
[2019-03-19] MEDS: DOCUSATE SODIUM 100 MG CAP PO SCH (08:55)
[2019-03-19] MEDS: LEVETIRACETAM (100 MG/ML) 5ML CUP GTB SCH ×2 (08:55→20:52)
[2019-03-19] MEDS: CHLORHEXIDINE GLUCONATE 15 ML UD CUP MM SCH ×2 (08:55→20:51)
[2019-03-19] MEDS: ASCORBIC ACID 500 MG TAB GTB SCH (08:55)
[2019-03-19] MEDS: METOPROLOL 25 MG TAB GTB SCH ×2 (08:57→20:52)
--- NOTE | 2019-03-19 09:13 | PN ---
DATE: 03/19/2019 SUBJECTIVE: The patient was stable. No events overnight. The patient is pending possible EGD, colo noscopy. No episodes of bleeding. OBJECTIVE: VITAL SIGNS: Blood pressure is 199/50, respirations 20, pulse 74, temperature 98.7. HEENT: Head is normocephalic. NECK: Supple. HEART: Regular rate. LUNGS: Show diminished breath sounds at the base. ABDOMEN: Soft, nontender to palpation without rebound or guarding. EXTREMITIES: Negative for clubbing, cyanosis. Trace edema. DERMATOLOGIC: No rashes. MUSCULOSKELETAL: No joint effusions. NEUROLOGIC: No change in exam. Patient remains obtunded. LABORATORY DATA: Has been reviewed. MEDICATIONS: Have been reviewed. IMAGING STUDIES: Have been reviewed. ASSESSMENT AND PLAN: 1. Nonoliguric acute kidney injury on top of chronic kidney disease with previous baseline creatinin e around 1 mg/dL. The patient's renal function appears to be at baseline. A urinalysis, urine elect rolytes are pending. At this point, continue current treatment plan, supportive care, renally dose a ll meds. 2. Anemia. Monitor hemoglobin and hematocrit levels. 3. Mineral bone disorder, monitor calcium and phosphorus levels, no need for phos binders. 4. Hypertension, improved. Continue to monitor. 5. Ventilatory-dependent respiratory failure. Vent settings and ABG was reviewed. Continue to [facility]. Follow up with pulmonary for vent management. 6. Dysphagia. Continue tube feeding. 7. Anemia, questionable gastrointestinal bleed. The patient seen by GI, pending possible EGD and co lonoscopy. 8. History of cerebrovascular accident. Continue medical management. 9. Chronic encephalopathy. No change. 10. Seizure disorder. Continue current treatment plan. 11. Dysphagia. Continue tube feeding. Dictated By: RAJINDER ATWOOD DO NR/NTS Conf#: [id number] DID#: [id number] CC: JAYLEN LUGO MD;*EndCC*
[2019-03-19] MEDS: DIGOXIN 0.125 MG TAB PO SCH (12:49)
[2019-03-19] MEDS: SOD CHLORIDE 0.45% 1,000 ML IV SCH (13:00)
[2019-03-19] MEDS ORDERED: PROPOFOL 0 ML ONE (13:53)
[2019-03-19] MEDS ORDERED: ETOMIDATE 20 MG INJ ONE (13:57)
[2019-03-19] MEDS ORDERED: FENTAnyl 50 MCG/ML VIAL ONE (14:04)
--- NOTE | 2019-03-19 14:13 | PREAC ---
Date/Time of Note Date/Time of Note DATE: 03/19/19 TIME: 14:10 Anesthesia Eval and Record Evaluation Time Pre-Procedure Interview DATE: 03/19/19 TIME: 14:10 Age 73 Sex female NPO: 8 hrs Preoperative diagnosis rectal bleeding Planned procedure colonoscopy Past Medical History Past Medical History: Includes Cardio: CHF Endo: Diabetes Pulm: COPD, Other (res failure) Neuro: CVA, Seizure disorder Renal: CKD Surgery & Anesthesia Issues No known issue Meds Anticoagulation: No Beta Eros within 24 hr: Yes Reason Beta Eros not given: Pt. not on B-Eros Reported Medications Levalbuterol Hcl* (Xopenex*) 1.25 Mg/0.5 Ml Vial.neb, 1.25 MG INHALATION Q6H for WHEEZING AND SOB, EA 03/17/19 Levalbuterol Hcl* (Levalbuterol Hcl*) 1.25 Mg/0.5 Ml Vial.neb, 1.25 MG INHALATION Q3H, VIAL 03/17/19 Ascorbic Acid (Vitamin C) 500 Mg Tab, 500 MG GTB DAILY, TAB 03/17/19 Cran/Vitc/Mannose/Inulin/Brom (Uti-Stat Liquid) 3,875 Mg/30 Ml Liquid, 30 ML GTB BID 03/17/19 Acetaminophen* (Acetaminophen*) 500 MG Extra Strength Tablet, 1000 MG PO Q4H PRN for NEEDED, TAB UNTIL 04/16/19 03/17/19 Acetaminophen* (Tylenol*) 325 Mg Tablet, 650 MG GTB BID PRN for PAIN MGT, TAB 03/17/19 Acetaminophen* (Tylenol*) 325 Mg Tablet, 650 MG GTB Q4H PRN for MILD PAIN LEVEL 1-3, TAB AND FEVER 101F, END DATE 04/16/19 03/17/19 Acetaminophen* (Tylenol*) 325 Mg Tablet, 650 MG GTB NEEDED PRN for TRACH TUBE CHANGE, TAB 03/17/19 Epoetin Amor (Procrit) 4,000 Unit/1 Ml Vial, 4000 UNIT IJ Q WED, VIAL 03/17/19 Amino Acids/Protein Hydrolys (PRO-STAT LIQUID) 30 Ml Liquid.pkt, 30 ML GTB DAILY 03/17/19 Multivitamins* (Theragran*) 1 Tab Tab, 1 TAB GTB DAILY, TAB 03/17/19 Magnesium Hydroxide* (Milk Of Magnesia*) 400 Mg/5 Ml Oral.susp, 30 ML GTB NEEDED, ML END DATE 04/16/19 03/17/19 Metoprolol Tartrate* (Lopressor*) 25 Mg Tab, 25 MG GTB BID, #60 TAB HOLD IF SBP<110 OR HR<60 03/17/19 Levetiracetam* (Levetiracetam*) 500 Mg/5 Ml Solution, 2.5 ML PO Q12H, ML 03/17/19 Mineral Oil* (Fleet* Mineral Oil Enema) Unknown Strength Oil, 1 APPLIC MN NEEDED PRN for CONSTIPATION, ENEMA 03/17/19 Bisacodyl (Dulcolax) 10 Mg Supp.rect, 10 MG RC NEEDED, SUPP.RECT UNTIL 04/16/19 03/17/19 Digoxin* (Digox*) 125 Mcg Tablet, 0.125 MG GTB DAILY PRN for HOLD IF HR<60, TAB 03/17/19 Docusate Sodium* (Colace*) 100 Mg Capsule, 100 MG GTB DAILY, #30 CAP 03/17/19 Chlorhexidine Gluconate (Peridex) 473 Ml Mouthwash, 15 ML MM Q12H, BOTTLE 03/17/19 Discontinued Reported Medications Methylprednisolone Sodium Succinate PF (Solu-Medrol PF) 40 Mg/1 Ml Vial, 30 MG IV Q8H, VIAL 10/27/18 Magnesium Hydroxide* (Milk Of Magnesia*) 400 Mg/5 Ml Oral.susp, 30 ML PO BID, ML 10/27/18 Magnesium Oxide* (Magnesium Oxide*) 400 Mg Tablet, 400 MG PO BID, TAB 10/27/18 Morphine Sulfate* (Morphine* Liq) 10 Mg/0.5 Ml Disp.syrin, 6 ML SL Q4H PRN for PAIN, ML 10/27/18 Metoprolol Tartrate* (Lopressor*) 25 Mg Tab, 25 MG PO BID, #60 TAB HOLD FOR SBP<110 OR HR<60 10/27/18 Levalbuterol Hcl* (Levalbuterol Hcl*) 1.25 Mg/0.5 Ml Vial.neb, 1.25 MG INHALATION Q6H, VIAL 10/27/18 Furosemide* (Lasix*) 20 Mg Tablet, 20 MG PO DAILY, TAB 10/27/18 Famotidine* (Famotidine*) 20 Mg Tablet, 20 MG PO DAILY, #30 TAB 10/27/18 Digoxin* (Digitek*) 125 Mcg Tablet, 0.125 MG PO DAILY, TAB 10/27/18 Collagenase* (Santyl*) 30 Gm Oint..gm., 1 APPLIC TOP .SOILED PRN for SOILED, #1 TUB 10/27/18 Budesonide* (Budesonide*) 0.5 Mg/2 Ml Ampul.neb, 0.5 MG INHALATION BID, AMP 10/27/18 Apixaban* (Eliquis*) 2.5 Mg Tablet, 2.5 MG PO BID, TAB 10/27/18 Ipratropium-Albuterol (Ipratropium-Albuterol) 0.5-3 Mg/3 Ml Ampul.neb, 3 ML INHALATION Q6, #30 VIAL 10/22/18 Bethanechol Chloride* (Bethanechol Chloride*) 25 Mg Tablet, 25 MG PO TID, TAB 10/22/18 Ondansetron Hcl* (Zofran*) 4 Mg Tab, 4 MG PO Q6H PRN for NAUSEA AND OR VOMITING, TAB 05/10/18 L. Acidophilus/Pectin, [place] (Acidophilus Capsule) 1 Each Capsule, 1 EACH PO DAILY, CAP 05/10/18 Epoetin Amor (Epogen) 10,000 Units/Ml Soln, 1.5 ML SC Q MON,WED,FRI,5PM, VIAL 05/10/18 Cyanocobalamin* (Vitamin B-12*) 1,000 Mcg Tablet.sa, 1000 MCG PO BID, TAB 05/10/18 Folic Acid* (Folic Acid*) 1 Mg Tablet, 1 MG PO DAILY, TAB 05/10/18 Atorvastatin Calcium* (Atorvastatin Calcium*) 20 Mg Tablet, 20 MG PO QHS, #30 TA B 05/10/18 Allopurinol* (Allopurinol*) 100 Mg Tablet, 100 MG PO BID for GOUT, TAB 05/10/18 Mineral Oil* (Fleet* Mineral Oil Enema) 133 Ml Oil, 1 APPLIC [place] NEEDED PRN for Q2DAYS, ENEMA 05/10/18 Docusate Sodium* (Colace*) 100 Mg Capsule, 100 MG PO Q9PM, #30 CAP 05/10/18 Ferrous Sulfate* (Ferrous Sulfate*) 325 Mg Tabec, 325 MG PO DAILY, TAB 05/10/18 Ascorbic Acid (Vitamin C) 500 Mg Tab, 500 MG PO DAILY, TAB 05/10/18 Multivitamins* (Theragran*) 1 Tab Tab, 1 TAB PO DAILY, TAB 05/10/18 Acetaminophen* (Tylenol*) 325 Mg Tablet, 650 MG PO NEEDED PRN for TRACH TUBE CHANGE, TAB 05/10/18 Current Medications Acetaminophen (Tylenol Liquid) 650 mg Q4H PRN GTB MILD PAIN 1-3; Start 03/17/19 at 21:30 Ascorbic Acid (Vitamin C) 500 mg DAILY GTB Last administered on 03/19/19 08:55; Admin Dose 500 MG; Start 03/17/19 at 21:00 Bisacodyl (Dulcolax Supp) 10 mg DAILY PRN [place] CONSTIPATION; Start 03/17/19 at 21:00 Chlorhexidine Gluconate (Peridex) 15 ml Q12H MM Last administered on 03/19/19 08:55; Admin Dose 15 ML; Start 03/17/19 at 21:00 Digoxin (Digoxin) 0.125 mg DAILY@13 PO ; Start 03/18/19 at 13:00 Docusate Sodium (Colace) 100 mg DAILY PO Last administered on 03/19/19 08:55; Admin Dose 100 MG; Start 03/18/19 at 09:00 Levalbuterol (Xopenex Neb) 0.63 mg Q6H RESP THERAPY HHN Last administered on 03/19/19 01:27; Admin Dose 0.63 MG; Start 03/17/19 at 21:08 Levetiracetam (Keppra Liquid) 250 mg Q12H GTB Last administered on 03/19/19 08:55; Admin Dose 250 MG; Start 03/17/19 at 21:00 Magnesium Hydroxide (Milk Of Mag) 30 ml DAILY PRN GTB CONSTIPATION; Start 03/17/19 at 21:00 Metoprolol Tartrate (Lopressor) 25 mg BID GTB Last administered on 03/18/19 21:54; Admin Dose 25 MG; Start 03/17/19 at 21:00 Multivitamins (Multivitamin) 30 ml DAILY GTB Last administered on 03/19/19 08:54; Admin Dose 30 ML; Start 03/18/19 at 09:00 Sodium Chloride 1,000 ml @ 50 mls/hr Q20H IV Last administered on 03/18/19at 17:00; Admin Dose 50 MLS/HR; Start 03/17/19 at 21:00 Lansoprazole (Prevacid) 30 mg DAILY@06 GTB Last administered on 03/19/19at 06:40; Admin Dose 30 MG; Start 03/18/19 at 06:00 Epoetin Amor-epbx (RETACRIT(non-esrd)) 40,000 unit We@1700 SC ; Start 03/19/19 at 17:00 Meds reviewed: Yes Allergies Coded Allergies: No Known Allergy (Unverified , 03/17/19) Allergies Reviewed: Yes Labs/Studies Labs Reviewed: Reviewed by anesthesiologist Result Diagram: 03/19/19 0502 03/19/19 0502 Laboratory Tests 03/19/19 05:02 test: N/A Studies: ECG (Afib), CXR (r pleural effusio) Pre-procedure Exam Last vitals Vital Signs Date Temp Pulse Resp B/P (MAP) Pulse Ox O2 O2 Flow FiO2 Time Delivery Rate 03/19/19 75 22 114/71 96 Mechanical 13:27 (85) Ventilator 03/19/19 99.3 11:37 03/19/19 30 09:09 Airway: Adequate mouth opening Mallampati: Mallampati I Teeth: Abnormal (on vent) Lung: Normal Heart: Abnormal (afib) ASA Physical Status ASA physical status: 3 Emergency: None Planned Anesthetic General/MAC: MAC Pre-operative Attestations Prior to commencing anesthesia and surgery, the patient was re-evaluated, there was verification of: *The patient's identity *The results of appropriate recent lab work and preoperative vital signs *The above evaluation not changing prior to induction *Anesthetic plan, risk benefits, alternative and complications discussed with patient/family; questions answered; patient/family understands, accepts and wishes to proceed. DELVIN JEFFERSON MD March 19, 2019 14:13
--- NOTE | 2019-03-19 14:19 | PN ---
Date/Time of Note Date/Time of Note DATE: 03/19/19 TIME: 14:16 Assessment/Plan VTE Prophylaxis Risk score (from [facility] [place])>0 risk: 6 SCD applied (from [facility] [place]): Yes Pharmacological prophylaxis: NA/contraindicated Pharm contraindication: bleeding Lines/Catheters IV Catheter Type (from [facility]): Peripheral IV Central line still needed: Yes Urinary Cath still in place: Yes Reason Cath still needed: urinary retention Assessment/Plan Hospital Course Plan for colonoscopy today, patient continues on ventilatory support without distress, lethargic. Assessment/Plan -Anemia, rule out GI bleed. Dr. Galdamez is following in gastroenterology consultation. Dr. Kiser is following in hematology consultation -Ventilator dependent respiratory failure with tracheostomy. Dr. Davenport is following in pulmonology consultation. -Acute on chronic kidney disease. Monitor BUN and creatinine. Dr. Grant is following in nephrology consultation -Atrial fibrillation, continue metoprolol -Diastolic congestive heart failure. Dr. Hernandez is following in cardiology consultation. -Pulmonary fibrosis, continue Pulmicort. -Dysphagia with G-tube. -Chronic encephalopathy -COPD -History of CVA, continue aspirin. -Seizure disorder/status epilepticus. Continue Keppra and Ativan as needed. -MRSA nares colonization Further recommendations based on clinical course. Plan of care discussed with Dr. Phillips. Result Diagram: 03/19/19 0502 03/19/19 0502 Results 24hrs Laboratory Tests Test 03/18/19 14:17 03/18/19 16:01 03/19/19 05:02 03/19/19 08:00 Absolute 0.104 Reticulocyte Count Percent 3.8 H Reticulocyte Count Lactate 354 Dehydrogenase Blood Gas Specimen Blood arterial Source Arterial Blood 03/18/2019 4:15:49 Date Drawn PM Arterial Blood pH 7.525 H (Temp corrected) Arterial Blood 35.5 pCO2 (Temp correct) Arterial Blood pO2 90.5 H (Temp corrected) Arterial Blood 28.7 H HCO3 Arterial Blood 5.7 H Base Excess Arterial Blood 97.0 Oxygen Saturation Jeremie Test N/A Arterial Blood Gas Right Brachial Puncture Site Arterial 1.1 Blood Carboxyhemog lobin Arterial Blood 0 Methemoglobin Blood Gas A-a O2 81.7 H Differential Oxyhemoglobin 95.9 Percent Blood Gas 37.0 Temperature Blood Gas 20.0 Respiration Rate Blood Gas Actual 20 Respiration Rate Blood Gas Modality VENT - AC FiO2 30.0 Blood Gas Tidal 500.0 Volume Blood Gas Low PEEP 5.0 Setting Blood Gas Notified CW Whom Blood Gas Notified 03/18/2019 4:31:10 Time PM White Blood Count 11.5 #H Red Blood Count 2.84 #L Hemoglobin 8.8 #L Hematocrit 29.2 L Mean Corpuscular 102.8 H Volume Mean Corpuscular 31.0 Hemoglobin Mean Corpuscular 30.1 L Hemoglobin Concent Red Cell 19.8 H Distribution Width Platelet Count 453 H Mean Platelet 9.4 Volume Immature 1.400 H Granulocytes % Neutrophils % 78.2 H Lymphocytes % 15.3 Monocytes % 4.2 Eosinophils % 0.6 Basophils % 0.3 Nucleated Red 0.0 Blood Cells % Immature 0.160 H Granulocytes # Neutrophils # 9.0 H Lymphocytes # 1.8 Monocytes # 0.5 Eosinophils # 0.1 Basophils # 0.0 Nucleated Red 0.0 Blood Cells # Sodium Level 143 Potassium Level 3.8 Chloride Level 108 Carbon Dioxide 28 Level Anion Gap 7 Blood Urea 62 H Nitrogen Creatinine 1.03 H Est Glomerular Filtrat Rate mL/min Glucose Level 110 Calcium Level 8.6 Stool Occult Blood NEGATIVE Exam/Review of Systems Exam Vitals Vital Signs Date Temp Pulse Resp B/P (MAP) Pulse Ox O2 O2 Flow FiO2 Time Delivery Rate 03/19/19 75 22 114/71 96 Mechanical 13:27 (85) Ventilator 03/19/19 99.3 11:37 03/19/19 30 09:09 Intake and Output 03/18/19 03/18/19 03/19/19 1515:00 23:00 07:00 IntakeIntake Total 550 ml OutputOutput Total 350 ml BalanceBalance 200 ml Exam Constitutional: frail Neck: other (trach) Respiratory: diminished breath sounds Cardiovascular: regular rate and rhythm Gastrointestinal: soft, non-tender, other (G-tube) Extremities: normal pulses Neurological: lethargic Results Results 24hrs Laboratory Tests Test 03/18/19 14:17 03/18/19 16:01 03/19/19 05:02 03/19/19 08:00 Absolute 0.104 Reticulocyte Count Percent 3.8 H Reticulocyte Count Lactate 354 Dehydrogenase Blood Gas Specimen Blood arterial Source Arterial Blood 03/18/2019 4:15:49 Date Drawn PM Arterial Blood pH 7.525 H (Temp corrected) Arterial Blood 35.5 pCO2 (Temp correct) Arterial Blood pO2 90.5 H (Temp corrected) Arterial Blood 28.7 H HCO3 Arterial Blood 5.7 H Base Excess Arterial Blood 97.0 Oxygen Saturation Jeremie Test N/A Arterial Blood Gas Right Brachial Puncture Site Arterial 1.1 Blood Carboxyhemog lobin Arterial Blood 0 Methemoglobin Blood Gas A-a O2 81.7 H Differential Oxyhemoglobin 95.9 Percent Blood Gas 37.0 Temperature Blood Gas 20.0 Respiration Rate Blood Gas Actual 20 Respiration Rate Blood Gas Modality VENT - AC FiO2 30.0 Blood Gas Tidal 500.0 Volume Blood Gas Low PEEP 5.0 Setting Blood Gas Notified CW Whom Blood Gas Notified 03/18/2019 4:31:10 Time PM White Blood Count 11.5 #H Red Blood Count 2.84 #L Hemoglobin 8.8 #L Hematocrit 29.2 L Mean Corpuscular 102.8 H Volume Mean Corpuscular 31.0 Hemoglobin Mean Corpuscular 30.1 L Hemoglobin Concent Red Cell 19.8 H Distribution Width Platelet Count 453 H Mean Platelet 9.4 Volume Immature 1.400 H Granulocytes % Neutrophils % 78.2 H Lymphocytes % 15.3 Monocytes % 4.2 Eosinophils % 0.6 Basophils % 0.3 Nucleated Red 0.0 Blood Cells % Immature 0.160 H Granulocytes # Neutrophils # 9.0 H Lymphocytes # 1.8 Monocytes # 0.5 Eosinophils # 0.1 Basophils # 0.0 Nucleated Red 0.0 Blood Cells # Sodium Level 143 Potassium Level 3.8 Chloride Level 108 Carbon Dioxide 28 Level Anion Gap 7 Blood Urea 62 H Nitrogen Creatinine 1.03 H Est Glomerular Filtrat Rate mL/min Glucose Level 110 Calcium Level 8.6 Stool Occult Blood NEGATIVE Medications Medication Current Medications Acetaminophen (Tylenol Liquid) 650 mg Q4H PRN GTB MILD PAIN 1-3; Start 03/17/19 at 21:30 Ascorbic Acid (Vitamin C) 500 mg DAILY GTB Last administered on 03/19/19at 08:55; Admin Dose 500 MG; Start 03/17/19 at 21:00 Bisacodyl (Dulcolax Supp) 10 mg DAILY PRN [place] CONSTIPATION; Start 03/17/19 at 21:00 Chlorhexidine Gluconate (Peridex) 15 ml Q12H MM Last administered on 03/19/19at 08:55; Admin Dose 15 ML; Start 03/17/19 at 21:00 Digoxin (Digoxin) 0.125 mg DAILY@13 PO ; Start 03/18/19 at 13:00 Docusate Sodium (Colace) 100 mg DAILY PO Last administered on 03/19/19 08:55; Admin Dose 100 MG; Start 03/18/19 at 09:00 Levalbuterol (Xopenex Neb) 0.63 mg Q6H RESP THERAPY HHN Last administered on 03/19/19 01:27; Admin Dose 0.63 MG; Start 03/17/19 at 21:08 Levetiracetam (Keppra Liquid) 250 mg Q12H GTB Last administered on 03/19/19 08:55; Admin Dose 250 MG; Start 03/17/19 at 21:00 Magnesium Hydroxide (Milk Of Mag) 30 ml DAILY PRN GTB CONSTIPATION; Start 03/17/19 at 21:00 Metoprolol Tartrate (Lopressor) 25 mg BID GTB Last administered on 03/18/19 21:54; Admin Dose 25 MG; Start 03/17/19 at 21:00 Multivitamins (Multivitamin) 30 ml DAILY GTB Last administered on 03/19/19 08:54; Admin Dose 30 ML; Start 03/18/19 at 09:00 Sodium Chloride 1,000 ml @ 50 mls/hr Q20H IV Last administered on 03/18/19at 17:00; Admin Dose 50 MLS/HR; Start 03/17/19 at 21:00 Lansoprazole (Prevacid) 30 mg DAILY@06 GTB Last administered on 03/19/19at 06:40; Admin Dose 30 MG; Start 03/18/19 at 06:00 Epoetin Amor-epbx (RETACRIT(non-esrd)) 40,000 unit We@1700 SC ; Start 03/19/19 at 17:00 IMER VARGAS March 19, 2019 14:19
[2019-03-19] MEDS ORDERED: PROPOFOL 60 ML ONE (14:25)
--- NOTE | 2019-03-19 14:43 | CONS ---
Assessment/Plan Assessment/Plan Hospital Course (Demo Recall) 73 yo with #Anemia -Hg up to 8.8 after 1 units PRBC transfusion -pt is noted to have a macrocytic anemia which is mostly likely 2/2 underlying myelodysplastic syndrome -will check epo level and start epogen 40,000 units weekly -check iron panel -check vitamin b12 and folate levels -past workup for anemia reveals a negative SPEP and no signs of hemolysis. will however recheck LDH, haptoglobin and retic -f/u colonoscopy results Consultation Date/Type/Reason Admit Date/Time March 17, 2019 at 14:33 Initial Consult Date 03/18/19 Type of Consult hematology Reason for Consultation anemia Requesting Provider: JAYLEN LUGO MD Date/Time of Note DATE: 03/19/19 TIME: 14:42 24 HR Interval Summary Free Text/Dictation colonoscopy today Exam/Review of Systems Exam Vitals Vital Signs Date Temp Pulse Resp B/P (MAP) Pulse Ox O2 O2 Flow FiO2 Time Delivery Rate 03/19/19 75 22 114/71 96 Mechanical 13:27 (85) Ventilator 03/19/19 99.3 11:37 03/19/19 30 09:09 Intake and Output 03/18/19 03/18/19 03/19/19 1414:59 22:59 06:59 IntakeIntake Total 550 ml OutputOutput Total 350 ml BalanceBalance 200 ml Constitutional: alert Psych: confusion Head: normocephalic Eyes: nl conjunctiva ENMT: nl external ears & nose Neck: supple Respiratory: clear to auscultation Cardiovascular: regular rate and rhythm Gastrointestinal: soft Musculoskeletal: nl extremities to inspection Extremities: normal pulses Results Result Diagram: 03/19/19 0502 03/19/19 0502 Results 24hrs Laboratory Tests Test 03/18/19 16:01 03/19/19 05:02 03/19/19 08:00 Blood Gas Specimen Source Blood arterial Arterial Blood Date Drawn 03/18/2019 4:15:49 PM Arterial Blood pH 7.525 H (Temp corrected) Arterial Blood pCO2 35.5 (Temp correct) Arterial Blood pO2 90.5 H (Temp corrected) Arterial Blood HCO3 28.7 H Arterial Blood Base Excess 5.7 H Arterial Blood 97.0 Oxygen Saturation Jeremie Test N/A Arterial Blood Gas Right Brachial Puncture Site Arterial 1.1 Blood Carboxyhemoglobin Arterial Blood Methemoglobin 0 Blood Gas A-a O2 Differential 81.7 H Oxyhemoglobin Percent 95.9 Blood Gas Temperature 37.0 Blood Gas Respiration Rate 20.0 Blood Gas Actual 20 Respiration Rate Blood Gas Modality VENT - AC FiO2 30.0 Blood Gas Tidal Volume 500.0 Blood Gas Low PEEP Setting 5.0 Blood Gas Notified Whom CW Blood Gas Notified Time 03/18/2019 4:31:10 PM White Blood Count 11.5 #H Red Blood Count 2.84 #L Hemoglobin 8.8 #L Hematocrit 29.2 L Mean Corpuscular Volume 102.8 H Mean Corpuscular Hemoglobin 31.0 Mean Corpuscular 30.1 L Hemoglobin Concent Red Cell Distribution Width 19.8 H Platelet Count 453 H Mean Platelet Volume 9.4 Immature Granulocytes % 1.400 H Neutrophils % 78.2 H Lymphocytes % 15.3 Monocytes % 4.2 Eosinophils % 0.6 Basophils % 0.3 Nucleated Red Blood Cells % 0.0 Immature Granulocytes # 0.160 H Neutrophils # 9.0 H Lymphocytes # 1.8 Monocytes # 0.5 Eosinophils # 0.1 Basophils # 0.0 Nucleated Red Blood Cells # 0.0 Sodium Level 143 Potassium Level 3.8 Chloride Level 108 Carbon Dioxide Level 28 Anion Gap 7 Blood Urea Nitrogen 62 H Creatinine 1.03 H Est Glomerular Filtrat Rate mL/min Glucose Level 110 Calcium Level 8.6 Stool Occult Blood NEGATIVE Medications Medication Current Medications Acetaminophen (Tylenol Liquid) 650 mg Q4H PRN GTB MILD PAIN 1-3; Start 03/17/19 at 21:30 Ascorbic Acid (Vitamin C) 500 mg DAILY GTB Last administered on 03/19/19at 08:55; Admin Dose 500 MG; Start 03/17/19 at 21:00 Bisacodyl (Dulcolax Supp) 10 mg DAILY PRN [place] CONSTIPATION; Start 03/17/19 at 21:00 Chlorhexidine Gluconate (Peridex) 15 ml Q12H MM Last administered on 03/19/19at 08:55; Admin Dose 15 ML; Start 03/17/19 at 21:00 Digoxin (Digoxin) 0.125 mg DAILY@13 PO ; Start 03/18/19 at 13:00 Docusate Sodium (Colace) 100 mg DAILY PO Last administered on 03/19/19at 08:55; Admin Dose 100 MG; Start 03/18/19 at 09:00 Levalbuterol (Xopenex Neb) 0.63 mg Q6H RESP THERAPY HHN Last administered on 03/19/19 01:27; Admin Dose 0.63 MG; Start 03/17/19 at 21:08 Levetiracetam (Keppra Liquid) 250 mg Q12H GTB Last administered on 03/19/19 08:55; Admin Dose 250 MG; Start 03/17/19 at 21:00 Magnesium Hydroxide (Milk Of Mag) 30 ml DAILY PRN GTB CONSTIPATION; Start at 21:00 Metoprolol Tartrate (Lopressor) 25 mg BID GTB Last administered on 03/18/19 21:54; Admin Dose 25 MG; Start 03/17/19 at 21:00 Multivitamins (Multivitamin) 30 ml DAILY GTB Last administered on 03/19/19 08:54; Admin Dose 30 ML; Start 03/18/19 at 09:00 Sodium Chloride 1,000 ml @ 50 mls/hr Q20H IV Last administered on 03/18/19 17:00; Admin Dose 50 MLS/HR; Start 03/17/19 at 21:00 Lansoprazole (Prevacid) 30 mg DAILY@06 GTB Last administered on 03/19/19 06:40; Admin Dose 30 MG; Start 03/18/19 at 06:00 Epoetin Amor-epbx (RETACRIT(non-esrd)) 40,000 unit We@1700 SC ; Start 03/19/19 at 17:00 IJEOMA GROSSMAN M.D. March 19, 2019 14:43
[2019-03-19] MEDS ORDERED: EPHEDrine 25 MG/5 ML SYG ONE (17:09)
[2019-03-19] MEDS: EPOETIN ALFA-EPBX (NON-ESRD 10,000 UNIT/ML VIAL SC SCH (17:25)
--- NOTE | 2019-03-19 18:33 | PN ---
DATE: 03/19/2019 SUBJECTIVE: The patient remains in a vegetative state. She shows only minimal eye opening. She is breathing comfortably with the ventilator support. PHYSICAL EXAMINATION: VITAL SIGNS: Show temperature of 98.9, blood pressure 109/54, pulse rate 75, respirations 20, pulse oximetry 94% saturation. NECK: Tracheal secretions are minimal to moderate. No bleeding seen. HEART: Regular rhythm. CHEST: Breath sounds are diminished bilaterally in the lung bases but otherwise clear except for a f ew occasional rales and rhonchi. ABDOMEN: Soft. No distention seen. EXTREMITIES: Show no spontaneous movement, spasticity seen in all the extremities. LABORATORY TESTS: Show sodium 143, potassium 3.8, BUN down to 62, creatinine 1.03, glucose is 110. The CBC shows WBC 11,500, hemoglobin 8.8, hematocrit 29.2, platelets increased to 453,000. ABG shows pH of 7.52, pCO2 of 35, pO2 of 90 on 30% oxygen with a rate of 20. IMPRESSION: 1. Chronic ventilator dependent respiratory failure. 2. Chronic encephalopathy following cardiac arrest. 3. History of advanced chronic obstructive lung disease. 4. History of congestive heart failure. 5. History of paroxysmal atrial fibrillation. 6. Status post cerebrovascular accident. 7. History of seizure disorder. 8. Chronic anemia. 9. Azotemia, probably secondary to dehydration, improving. PLAN: 1. Continue long-term ventilator support. 2. Continue bronchodilator inhalation therapy to maintain the pulmonary hygiene and clear the secret ions. 3. Continue G-tube feedings. Overall, patient's pulmonary status seems stable. She needs to be on long-term ventilator support. Dictated By: KORTNEY GAMEZ MD SR/NTS Conf#: [id number] DID#: [id number] CC: JAYLEN LUGO MD;*EndCC*
[2019-03-20] VITALS (22 sets, daily range): BP systolic 90–111; BP diastolic 44–73; PULSE 70–83; RESP 18–20
[2019-03-20] MEDS: LEVALBUTEROL (NEB) 0.63 MG/3 ML AMP HHN SCH ×4 (01:39→19:03)
[2019-03-20] MEDS: LANSOPRAZOLE 30 MG CAP GTB SCH (06:49)
[2019-03-20] MEDS: SOD CHLORIDE 0.45% 1,000 ML IV SCH ×2 (09:00→13:27)
--- NOTE | 2019-03-20 09:03 | PAC ---
Date/Time of Note Date/Time of Note DATE: 03/20/19 TIME: 09:03 Post-Anesthesia Notes Post-Anesthesia Note Last documented vital signs Vital Signs Date Temp Pulse Resp B/P (MAP) Pulse Ox O2 O2 Flow FiO2 Time Delivery Rate 03/20/19 97.9 75 19 111/73 100 07:53 (86) 03/20/19 40 05:50 03/19/19 Mechanical 16:09 Ventilator Activity: WNL Respiratory function: WNL Cardiovascular function: WNL Mental status: Baseline Pain reasonably controlled: Yes Hydration appropriate: Yes Nausea/Vomiting absent: No DELVIN JEFFERSON MD March 20, 2019 09:03
[2019-03-20] MEDS: LEVETIRACETAM (100 MG/ML) 5ML CUP GTB SCH ×2 (10:07→22:41)
[2019-03-20] MEDS: CHLORHEXIDINE GLUCONATE 15 ML UD CUP MM SCH ×2 (10:07→22:41)
[2019-03-20] MEDS: MULTIVITAMINS 30 ML CUP GTB SCH (10:07)
[2019-03-20] MEDS: ASCORBIC ACID 500 MG TAB GTB SCH (10:08)
[2019-03-20] MEDS: METOPROLOL 25 MG TAB GTB SCH ×2 (10:08→22:41)
[2019-03-20] MEDS: DOCUSATE SODIUM 100 MG CAP PO SCH (10:08)
--- NOTE | 2019-03-20 10:28 | PN ---
DATE: 03/20/2019 SUBJECTIVE: The patient is stable. No events overnight. OBJECTIVE: VITAL SIGNS: Blood pressure is 109/73, pulse 75, respirations 19, temperature 97.9. HEENT: Head is normocephalic. NECK: Supple. HEART: Regular rate. LUNGS: Show diminished breath sounds at the base. ABDOMEN: Soft, nontender to palpation without rebound or guarding. EXTREMITIES: Negative for clubbing, cyanosis, no edema. DERMATOLOGIC: No rashes. MUSCULOSKELETAL: No joint effusion. NEUROLOGIC: No change in exam. MEDICATIONS: Reviewed. LABORATORY DATA: Reviewed. ASSESSMENT AND PLAN: 1. Nonoliguric acute kidney injury on top of chronic kidney disease with baseline creatinine of arou nd 1.0 mg/dL. The patient's renal function currently appears to be at baseline. Continue current tr eatment plan, supportive care and renally dose all medications. 2. Anemia. Monitor hematology and hematocrit levels. 3. Mineral bone disorder. Monitor calcium and phosphorus levels. 4. Hypertension. Continue current blood pressure regimen. 5. Ventilatory-dependent respiratory failure. Vent settings and ABG was reviewed. Continue to gaurav tor. 6. Dysphagia. Continue tube feeding. 7. Questionable GI bleed. The patient is status post EGD. Results are pending. Continue to monito r. Followup with GI. 8. Chronic encephalopathy. No change. 9. Seizures disorder. Dictated By: RAJINDER WATTS/MONROE Conf#: [id number] DID#: [id number] CC: JAYLEN LUGO MD;*End*
--- NOTE | 2019-03-20 13:13 | PN ---
Date/Time of Note Date/Time of Note DATE: 03/20/19 TIME: 13:07 Assessment/Plan VTE Prophylaxis Risk score (from [facility] [place])>0 risk: 4 SCD applied (from [facility] [place]): Yes Pharmacological prophylaxis: NA/contraindicated Pharm contraindication: bleeding Lines/Catheters IV Catheter Type (from [facility]): Peripheral IV Central line still needed: Yes Urinary Cath still in place: Yes Reason Cath still needed: urinary retention Assessment/Plan Hospital Course Patient is status post colonoscopy yesterday, patient remains hemodynamically stable, continues on vent support without distress. Assessment/Plan -Severe diverticulosis with spasm per colonoscopy -Anemia, rule out GI bleed. Dr. Galdamez is following in gastroenterology consultation. Dr. Kiser is following in hematology consultation -Ventilator dependent respiratory failure with tracheostomy. Dr. Davenport is following in pulmonology consultation. -Acute on chronic kidney disease. Monitor BUN and creatinine. Dr. Grant is following in nephrology consultation -Atrial fibrillation, continue metoprolol -Diastolic congestive heart failure. Dr. Hernandez is following in cardiology consultation. -Pulmonary fibrosis, continue Pulmicort. -Dysphagia with G-tube. -Chronic encephalopathy -COPD -History of CVA, continue aspirin. -Seizure disorder/status epilepticus. Continue Keppra and Ativan as needed. -MRSA nares colonization Further recommendations based on clinical course. Plan of care discussed with Dr. Phillips. Result Diagram: 03/20/19 0600 03/20/19 0600 Results 24hrs Laboratory Tests Test 03/20/19 06:00 White Blood Count 7.6 # Red Blood Count 2.77 L Hemoglobin 8.5 L Hematocrit 28.4 L Mean Corpuscular Volume 102.5 H Mean Corpuscular Hemoglobin 30.7 Mean Corpuscular Hemoglobin Concent 29.9 L Red Cell Distribution Width 19.2 H Platelet Count 379 Mean Platelet Volume 9.5 Immature Granulocytes % 1.300 H Neutrophils % 71.7 Lymphocytes % 21.3 Monocytes % 4.2 Eosinophils % 1.2 Basophils % 0.3 Nucleated Red Blood Cells % 0.0 Immature Granulocytes # 0.100 H Neutrophils # 5.4 Lymphocytes # 1.6 Monocytes # 0.3 Eosinophils # 0.1 Basophils # 0.0 Nucleated Red Blood Cells # 0.0 Sodium Level 144 Potassium Level 3.8 Chloride Level 111 H Carbon Dioxide Level 26 Anion Gap 7 Blood Urea Nitrogen 46 #H Creatinine 0.95 Est Glomerular Filtrat Rate mL/min Glucose Level 106 Calcium Level 8.5 Phosphorus Level 4.0 Magnesium Level 3.3 H Exam/Review of Systems Exam Vitals Vital Signs Date Temp Pulse Resp B/P (MAP) Pulse Ox O2 O2 Flow FiO2 Time Delivery Rate 03/20/19 98.9 70 19 106/53 100 Room Air 11:09 (70) 03/20/19 35 09:30 Intake and Output 03/19/19 03/19/19 03/20/19 1515:00 23:00 07:00 IntakeIntake Total 200 ml 400 ml 800 ml OutputOutput Total 400 ml 850 ml 600 ml BalanceBalance -200 ml -450 ml 200 ml Exam Constitutional: frail Neck: other (trach) Respiratory: diminished breath sounds Cardiovascular: regular rate and rhythm Gastrointestinal: soft, non-tender, other (G-tube) Extremities: normal pulses Neurological: lethargic Results Results 24hrs Laboratory Tests Test 03/20/19 06:00 White Blood Count 7.6 # Red Blood Count 2.77 L Hemoglobin 8.5 L Hematocrit 28.4 L Mean Corpuscular Volume 102.5 H Mean Corpuscular Hemoglobin 30.7 Mean Corpuscular Hemoglobin Concent 29.9 L Red Cell Distribution Width 19.2 H Platelet Count 379 Mean Platelet Volume 9.5 Immature Granulocytes % 1.300 H Neutrophils % 71.7 Lymphocytes % 21.3 Monocytes % 4.2 Eosinophils % 1.2 Basophils % 0.3 Nucleated Red Blood Cells % 0.0 Immature Granulocytes # 0.100 H Neutrophils # 5.4 Lymphocytes # 1.6 Monocytes # 0.3 Eosinophils # 0.1 Basophils # 0.0 Nucleated Red Blood Cells # 0.0 Sodium Level 144 Potassium Level 3.8 Chloride Level 111 H Carbon Dioxide Level 26 Anion Gap 7 Blood Urea Nitrogen 46 #H Creatinine 0.95 Est Glomerular Filtrat Rate mL/min Glucose Level 106 Calcium Level 8.5 Phosphorus Level 4.0 Magnesium Level 3.3 H Medications Medication Current Medications Acetaminophen (Tylenol Liquid) 650 mg Q4H PRN GTB MILD PAIN 1-3; Start 03/17/19 at 21:30 Ascorbic Acid (Vitamin C) 500 mg DAILY GTB Last administered on 03/20/19at 10:08; Admin Dose 500 MG; Start 03/17/19 at 21:00 Bisacodyl (Dulcolax Supp) 10 mg DAILY PRN [place] CONSTIPATION; Start 03/17/19 at 21:00 Chlorhexidine Gluconate (Peridex) 15 ml Q12H MM Last administered on 03/20/19 10:07; Admin Dose 15 ML; Start 03/17/19 at 21:00 Digoxin (Digoxin) 0.125 mg DAILY@13 PO ; Start 03/18/19 at 13:00 Docusate Sodium (Colace) 100 mg DAILY PO Last administered on 03/20/19 10:08; Admin Dose 100 MG; Start 03/18/19 at 09:00 Levalbuterol (Xopenex Neb) 0.63 mg Q6H RESP THERAPY HHN Last administered on 03/20/19 08:07; Admin Dose 0.63 MG; Start 03/17/19 at 21:08 Levetiracetam (Keppra Liquid) 250 mg Q12H GTB Last administered on 03/20/19 10:07; Admin Dose 250 MG; Start 03/17/19 at 21:00 Magnesium Hydroxide (Milk Of Mag) 30 ml DAILY PRN GTB CONSTIPATION; Start 03/17/19 at 21:00 Metoprolol Tartrate (Lopressor) 25 mg BID GTB Last administered on 03/20/19 10:08; Admin Dose 25 MG; Start 03/17/19 at 21:00 Multivitamins (Multivitamin) 30 ml DAILY GTB Last administered on 03/20/19 10:07; Admin Dose 30 ML; Start 03/18/19 at 09:00 Sodium Chloride 1,000 ml @ 50 mls/hr Q20H IV Last administered on 03/18/19 17:00; Admin Dose 50 MLS/HR; Start 03/17/19 at 21:00 Lansoprazole (Prevacid) 30 mg DAILY@06 GTB Last administered on 03/20/19 06:49; Admin Dose 30 MG; Start 03/18/19 at 06:00 Epoetin Amor-epbx (RETACRIT(non-esrd)) 40,000 unit We@1700 SC Last administered on 03/19/19 17:25; Admin Dose 40,000 UNIT; Start 03/19/19 at 17:00 Ferric Sodium Gluconate Complex 125 mg/Sodium Chloride 110 ml @ 110 mls/hr DAILY@1300 IVPB ; Start 03/20/19 at 13:00; Stop 03/24/19 at 13:59 IMER VARGAS March 20, 2019 13:13
--- NOTE | 2019-03-20 13:20 | CONS ---
Assessment/Plan Assessment/Plan Hospital Course (Demo Recall) 1. Anemia of chronic disease --per DR Kiser note "pt is noted to have a macrocytic anemia which is mostly likely 2/2 underlying myelodysplastic syndrome" 2. Chronic kidney disease. 3. Hypertension. 4. Paroxysmal atrial fibrillation. 5. Cerebrovascular accident. 6. Possible meningioma. 7. Vent dependent respiratory failure. 8. Dysphagia, status post G-tube. 9. S/P colonoscopy 03/20 -found severe diverticulosis of left side of colon with spasm and poor prep Plan: CT of abd/pelvis High fiber diet. Continue tube feeds, monitor residuals Monitor HH Consultation Date/Type/Reason Admit Date/Time March 17, 2019 at 14:33 Initial Consult Date 03/18/19 Requesting Provider: JAYLEN LUGO MD Date/Time of Note DATE: 03/20/19 TIME: 13:16 Exam/Review of Systems Exam Vitals Vital Signs Date Temp Pulse Resp B/P (MAP) Pulse Ox O2 O2 Flow FiO2 Time Delivery Rate 03/20/19 98.9 70 19 106/53 100 Room Air 11:09 (70) 03/20/19 35 09:30 Intake and Output 03/19/19 03/19/19 03/20/19 1515:00 23:00 07:00 IntakeIntake Total 200 ml 400 ml 800 ml OutputOutput Total 400 ml 850 ml 600 ml BalanceBalance -200 ml -450 ml 200 ml Respiratory: normal air movement Cardiovascular: regular rate and rhythm Gastrointestinal: soft, bowel sounds Results Result Diagram: 03/20/19 0600 03/20/19 0600 Results 24hrs Laboratory Tests Test 03/20/19 06:00 White Blood Count 7.6 # Red Blood Count 2.77 L Hemoglobin 8.5 L Hematocrit 28.4 L Mean Corpuscular Volume 102.5 H Mean Corpuscular Hemoglobin 30.7 Mean Corpuscular Hemoglobin Concent 29.9 L Red Cell Distribution Width 19.2 H Platelet Count 379 Mean Platelet Volume 9.5 Immature Granulocytes % 1.300 H Neutrophils % 71.7 Lymphocytes % 21.3 Monocytes % 4.2 Eosinophils % 1.2 Basophils % 0.3 Nucleated Red Blood Cells % 0.0 Immature Granulocytes # 0.100 H Neutrophils # 5.4 Lymphocytes # 1.6 Monocytes # 0.3 Eosinophils # 0.1 Basophils # 0.0 Nucleated Red Blood Cells # 0.0 Sodium Level 144 Potassium Level 3.8 Chloride Level 111 H Carbon Dioxide Level 26 Anion Gap 7 Blood Urea Nitrogen 46 #H Creatinine 0.95 Est Glomerular Filtrat Rate mL/min Glucose Level 106 Calcium Level 8.5 Phosphorus Level 4.0 Magnesium Level 3.3 H Medications Medication Current Medications Acetaminophen (Tylenol Liquid) 650 mg Q4H PRN GTB MILD PAIN 1-3; Start 03/17/19 at 21:30 Bisacodyl (Dulcolax Supp) 10 mg DAILY PRN [place] CONSTIPATION; Start 03/17/19 at 21:00 Chlorhexidine Gluconate (Peridex) 15 ml Q12H MM Last administered on 03/20/19 10:07; Admin Dose 15 ML; Start 03/17/19 at 21:00 Digoxin (Digoxin) 0.125 mg DAILY@13 PO ; Start 03/18/19 at 13:00 Docusate Sodium (Colace) 100 mg DAILY PO Last administered on 03/20/19 10:08; Admin Dose 100 MG; Start 03/18/19 at 09:00 Levalbuterol (Xopenex Neb) 0.63 mg Q6H RESP THERAPY HHN Last administered on 03/20/19 08:07; Admin Dose 0.63 MG; Start 03/17/19 at 21:08 Levetiracetam (Keppra Liquid) 250 mg Q12H GTB Last administered on 03/20/19 10:07; Admin Dose 250 MG; Start 03/17/19 at 21:00 Magnesium Hydroxide (Milk Of Mag) 30 ml DAILY PRN GTB CONSTIPATION; Start 03/17/19 at 21:00 Metoprolol Tartrate (Lopressor) 25 mg BID GTB Last administered on 03/20/19 10:08; Admin Dose 25 MG; Start 03/17/19 at 21:00 Sodium Chloride 1,000 ml @ 50 mls/hr Q20H IV Last administered on 03/18/19at 17:00; Admin Dose 50 MLS/HR; Start 03/17/19 at 21:00 Lansoprazole (Prevacid) 30 mg DAILY@06 GTB Last administered on 03/20/19at 06:49; Admin Dose 30 MG; Start 03/18/19 at 06:00 Epoetin Amor-epbx (RETACRIT(non-esrd)) 40,000 unit We@1700 SC Last administered on 03/19/19at 17:25; Admin Dose 40,000 UNIT; Start 03/19/19 at 17:00 Ferric Sodium Gluconate Complex 125 mg/Sodium Chloride 110 ml @ 110 mls/hr DAILY@1300 IVPB ; Start 03/20/19 at 13:00; Stop 03/24/19 at 13:59 Multivit/Ca Carb/ B Cmplx/FA/Prenat (Renee-Antonio) 1 tab DAILY GTB ; Start 03/21/19 at 09:00; Status UNV Zinc Sulfate (Zinc Sulfate) 220 mg DAILY GTB ; Start 03/21/19 at 09:00; Status UNV TEODORA DAVILA March 20, 2019 13:20
[2019-03-20] MEDS: DIGOXIN 0.125 MG TAB PO SCH (13:26)
[2019-03-20] MEDS: SOD FERRIC GLUC COMPLX 125 MG in SOD CHLORIDE 0.9% 100 ML IVPB SCH (13:26)
--- NOTE | 2019-03-20 16:15 | CONS ---
Assessment/Plan Assessment/Plan Hospital Course (Demo Recall) 73 yo with #Anemia -Hg up to 8.5 today -pt is noted to have a macrocytic anemia which is mostly likely 2/2 underlying myelodysplastic syndrome -will check epo level and start epogen 40,000 units weekly -iron panel reveals mild iron deficiency. Ferrlecit ordered -vitamin b12 and folate levels are ok -past workup for anemia reveals a negative SPEP and no signs of hemolysis. will however recheck LDH, haptoglobin and retic -f/u colonoscopy results Consultation Date/Type/Reason Admit Date/Time March 17, 2019 at 14:33 Initial Consult Date 03/18/19 Type of Consult hematology Reason for Consultation anemia Requesting Provider: JAYLEN LUGO MD Date/Time of Note DATE: 03/20/19 TIME: 16:13 24 HR Interval Summary Free Text/Dictation no acute overnight Exam/Review of Systems Exam Vitals Vital Signs Date Temp Pulse Resp B/P (MAP) Pulse Ox O2 O2 Flow FiO2 Time Delivery Rate 03/20/19 99.0 71 110/53 100 Mechanical 15:33 (72) Ventilator 03/20/19 20 35 15:00 Intake and Output 03/19/19 03/19/19 03/20/19 1414:59 22:59 06:59 IntakeIntake Total 200 ml 400 ml 800 ml OutputOutput Total 400 ml 850 ml 600 ml BalanceBalance -200 ml -450 ml 200 ml Constitutional: distress, frail Psych: no complaints, depression Head: normocephalic Eyes: nl conjunctiva ENMT: nl external ears & nose Neck: supple Respiratory: clear to auscultation Cardiovascular: regular rate and rhythm Gastrointestinal: soft Musculoskeletal: nl extremities to inspection Results Result Diagram: 03/20/19 0600 03/20/19 0600 Results 24hrs Laboratory Tests Test 03/20/19 06:00 White Blood Count 7.6 # Red Blood Count 2.77 L Hemoglobin 8.5 L Hematocrit 28.4 L Mean Corpuscular Volume 102.5 H Mean Corpuscular Hemoglobin 30.7 Mean Corpuscular Hemoglobin Concent 29.9 L Red Cell Distribution Width 19.2 H Platelet Count 379 Mean Platelet Volume 9.5 Immature Granulocytes % 1.300 H Neutrophils % 71.7 Lymphocytes % 21.3 Monocytes % 4.2 Eosinophils % 1.2 Basophils % 0.3 Nucleated Red Blood Cells % 0.0 Immature Granulocytes # 0.100 H Neutrophils # 5.4 Lymphocytes # 1.6 Monocytes # 0.3 Eosinophils # 0.1 Basophils # 0.0 Nucleated Red Blood Cells # 0.0 Sodium Level 144 Potassium Level 3.8 Chloride Level 111 H Carbon Dioxide Level 26 Anion Gap 7 Blood Urea Nitrogen 46 #H Creatinine 0.95 Est Glomerular Filtrat Rate mL/min Glucose Level 106 Calcium Level 8.5 Phosphorus Level 4.0 Magnesium Level 3.3 H Medications Medication Current Medications Acetaminophen (Tylenol Liquid) 650 mg Q4H PRN GTB MILD PAIN 1-3; Start 03/17/19 at 21:30 Bisacodyl (Dulcolax Supp) 10 mg DAILY PRN [place] CONSTIPATION; Start 03/17/19 at 21:00 Chlorhexidine Gluconate (Peridex) 15 ml Q12H MM Last administered on 03/20/19 1 0:07; Admin Dose 15 ML; Start 03/17/19 at 21:00 Digoxin (Digoxin) 0.125 mg DAILY@13 PO Last administered on 03/20/19 13:26; Admin Dose 0.125 MG; Start 03/18/19 at 13:00 Docusate Sodium (Colace) 100 mg DAILY PO Last administered on 03/20/19 10:08; Admin Dose 100 MG; Start 03/18/19 at 09:00 Levalbuterol (Xopenex Neb) 0.63 mg Q6H RESP THERAPY HHN Last administered on 03/20/19 13:54; Admin Dose 0.63 MG; Start 03/17/19 at 21:08 Levetiracetam (Keppra Liquid) 250 mg Q12H GTB Last administered on 03/20/19 10:07; Admin Dose 250 MG; Start 03/17/19 at 21:00 Magnesium Hydroxide (Milk Of Mag) 30 ml DAILY PRN GTB CONSTIPATION; Start 03/17/19 at 21:00 Metoprolol Tartrate (Lopressor) 25 mg BID GTB Last administered on 03/20/19 10:08; Admin Dose 25 MG; Start 03/17/19 at 21:00 Sodium Chloride 1,000 ml @ 50 mls/hr Q20H IV Last administered on 03/20/19 13:27; Admin Dose 50 MLS/HR; Start 03/17/19 at 21:00 Lansoprazole (Prevacid) 30 mg DAILY@06 GTB Last administered on 03/20/19at 06:49; Admin Dose 30 MG; Start 03/18/19 at 06:00 Epoetin Amor-epbx (RETACRIT(non-esrd)) 40,000 unit We@1700 SC Last administered on 03/19/19at 17:25; Admin Dose 40,000 UNIT; Start 03/19/19 at 17:00 Ferric Sodium Gluconate Complex 125 mg/Sodium Chloride 110 ml @ 110 mls/hr DAILY@1300 IVPB Last administered on 03/20/19at 13:26; Admin Dose 110 MLS/HR; Start 03/20/19 at 13:00; Stop 03/24/19 at 13:59 Multivit/Ca Carb/ B Cmplx/FA/Prenat (Renee-Antonio) 1 tab DAILY GTB ; Start 03/21/19 at 09:00 Zinc Sulfate (Zinc Sulfate) 220 mg DAILY GTB ; Start 03/21/19 at 09:00 Collagenase (Santyl) 1 applic BID TOP ; Start 03/20/19 at 21:00 IJEOMA GROSSMAN M.D. March 20, 2019 16:15
[2019-03-20] MEDS: COLLAGENASE 5 GM (UD JAR) TOP SCH ×2 (17:01→22:41)
--- NOTE | 2019-03-20 18:23 | PN ---
DATE: 03/20/2019 SUBJECTIVE: The patient's general condition is same. She remains noncognitive. No eye opening seen . She is breathing comfortably with long-term ventilator support and tracheostomy. PHYSICAL EXAMINATION: VITAL SIGNS: Show temperature 98.9, blood pressure 106/53, pulse rate 70, respirations 19, pulse oxi metry 100% saturation. NECK: Tracheal secretions are clear. No bleeding seen. HEART: Regular rate, rhythm. CHEST: Breath sounds are clear bilaterally, though somewhat diminished in the lung bases. ABDOMEN: Soft. No distention seen. Tolerating tube feedings. Bowel sounds are present. EXTREMITIES: Show no spontaneous movements. No edema. Generalized spasticity seen in all the extre mities. LABORATORY TESTS: Show sodium 144, potassium 3.8, BUN is 46, creatinine 0.95, glucose 106. CBC show s a WBC 7600 decrease from yesterday, hemoglobin 8.5, hematocrit 28.4 almost same as before. Platele t count is 379,000. IMPRESSION: 1. Chronic ventilator dependent respiratory failure. 2. Chronic encephalopathy following cardiac arrest. 3. History of advanced chronic obstructive lung disease. 4. History of congestive heart failure. 5. History of paroxysmal atrial fibrillation. 6. Status post cerebrovascular accident. 7. History of seizure disorder. 8. Chronic anemia. 9. Azotemia, probably secondary to dehydration, improving. PLAN: 1. Continue long-term ventilator support. 2. Continue bronchodilator inhalation therapy to maintain pulmonary hygiene and clear the secretions . 3. Continue G-tube feedings. Dictated By: KROTNEY GAMEZ MD SR/NTS Conf#: [id number] DID#: [id number] CC: JAYLEN LUGO MD;*EndCC*
[2019-03-20] MEDS ORDERED: COLLAGENASE 5 GM (UD JAR) TOP SCH (21:00)
[2019-03-21] VITALS (23 sets, daily range): BP systolic 99–129; BP diastolic 50–63; PULSE 64–77; RESP 18–20
[2019-03-21] MEDS: LEVALBUTEROL (NEB) 0.63 MG/3 ML AMP HHN SCH ×4 (01:16→19:20)
[2019-03-21] MEDS: LANSOPRAZOLE 30 MG CAP GTB SCH (05:33)
--- NOTE | 2019-03-21 08:40 | PN ---
DATE: 03/21/2019 SUBJECTIVE: The patient is stable, no events overnight. OBJECTIVE: VITAL SIGNS: Blood pressure is 123/59, pulse 65, respirations 20, temperature 98.6. HEENT: Head is normocephalic. NECK: Supple. HEART: Regular rate. LUNGS: Show diminished breath sounds at base. ABDOMEN: Soft, nontender to palpation. No rebound or guarding. EXTREMITIES: Negative for clubbing, cyanosis, no edema. DERMATOLOGIC: No rashes. MUSCULOSKELETAL: No joint effusion. NEUROLOGIC: No change in exam. MEDICATIONS: Reviewed. LABORATORY DATA: Has been reviewed. ASSESSMENT AND PLAN: 1. Chronic kidney disease stage III. The patient's renal function is currently at baseline. Contin ue current treatment plan, supportive care, renally dose all meds. 2. Anemia. Continue to monitor hemoglobin and hematocrit levels. Patient has been seen by hematolo gy workup ongoing. 3. Mineral bone disorder, monitor calcium and phosphorus levels. 4. Hypertension. Continue current blood pressure regimen. 5. Diverticulosis per colonoscopy. The patient is pending a CT abdomen and pelvis per GI. Continue to monitor. 6. Ventilatory respiratory failure. Vent settings have been reviewed. Continue to monitor. Follow up with pulmonary. 7. Dysphagia. Continue tube feeding. 8. Chronic encephalopathy. No change. 9. Seizure disorder. Dictated By: RAJINDER WATTS/NTS Conf#: [id number] DID#: [id number] CC: JAYLEN LUGO MD;*EndCC*
[2019-03-21] MEDS: MULTIVIT/CA CARB/B CMPLX/FA TAB GTB SCH (09:28)
[2019-03-21] MEDS: ZINC SULFATE 220 MG CAP GTB SCH (09:28)
[2019-03-21] MEDS: DOCUSATE SODIUM 100 MG CAP PO SCH (09:28)
[2019-03-21] MEDS: CHLORHEXIDINE GLUCONATE 15 ML UD CUP MM SCH ×2 (09:28→20:24)
[2019-03-21] MEDS: COLLAGENASE 5 GM (UD JAR) TOP SCH ×2 (09:28→20:24)
[2019-03-21] MEDS: SOD CHLORIDE 0.45% 1,000 ML IV SCH (09:28)
[2019-03-21] MEDS: LEVETIRACETAM (100 MG/ML) 5ML CUP GTB SCH ×2 (09:29→20:21)
[2019-03-21] MEDS: METOPROLOL 25 MG TAB GTB SCH ×2 (09:29→20:24)
[2019-03-21] MEDS ORDERED: IOHEXOL 14.3 MG(I)/ML (ADULT) BTL PO ONE (10:00)
--- NOTE | 2019-03-21 10:23 | PN ---
Date/Time of Note Date/Time of Note DATE: 03/21/19 TIME: 10:21 Assessment/Plan VTE Prophylaxis Risk score (from [facility])>0 risk: 7 SCD applied (from [facility]): Yes SCD contraindicated: other Pharmacological prophylaxis: other Pharm contraindication: surgical contra, other Lines/Catheters IV Catheter Type (from [facility]): Peripheral IV Urinary Cath still in place: Yes Reason Cath still needed: urinary retention Assessment/Plan Assessment/Plan -Severe diverticulosis with spasm per colonoscopy -Anemia, rule out GI bleed. Dr. Galdamez is following in gastroenterology consultation. Dr. Kiser is following in hematology consultation -Ventilator dependent respiratory failure with tracheostomy. Dr. Davenport is following in pulmonology consultation. -Acute on chronic kidney disease. Monitor BUN and creatinine. Dr. Grant is following in nephrology consultation -Atrial fibrillation, continue metoprolol -Diastolic congestive heart failure. Dr. Hernandez is following in cardiology consultation. -Pulmonary fibrosis, continue Pulmicort. -Dysphagia with G-tube. -Chronic encephalopathy -COPD -History of CVA, continue aspirin. -Seizure disorder/status epilepticus. Continue Keppra and Ativan as needed. -MRSA nares colonization Further recommendations based on clinical course. Plan of care discussed with Dr. Phillips. Result Diagram: 03/20/19 0600 03/20/19 0600 Results 24hrs Laboratory Tests Test 03/21/19 07:33 Lab Scanned Report REFERENCE LAB Subjective 24 Hr Interval Summary Free Text/Dictation CT abdomen; feeding on hold; fu results Constitutional: requiring O2 Exam/Review of Systems Exam Vitals Vital Signs Date Temp Pulse Resp B/P (MAP) Pulse Ox O2 O2 Flow FiO2 Time Delivery Rate 03/21/19 74 09:05 03/21/19 98.6 20 123/59 100 07:54 (80) 03/21/19 30 05:17 03/20/19 Mechanical 15:33 Ventilator Intake and Output 03/20/19 03/20/19 03/21/19 1515:00 23:00 07:00 IntakeIntake Total 700 ml 1330 ml 1150 ml OutputOutput Total 400 ml 350 ml BalanceBalance 700 ml 930 ml 800 ml Constitutional: alert, non-verbal, frail Psych: nl mood/affect Eyes: EOMI, nl sclera ENMT: nl external ears & nose Respiratory: clear to auscultation Cardiovascular: nl pulses, other (S1S2) Gastrointestinal: soft, non-tender, other (gt) Musculoskeletal: muscle weakness Extremities: normal pulses Neurological: confused Skin: other Results Results 24hrs Laboratory Tests Test 03/21/19 07:33 Lab Scanned Report REFERENCE LAB Medications Medication Current Medications Acetaminophen (Tylenol Liquid) 650 mg Q4H PRN GTB MILD PAIN 1-3; Start 03/17/19 at 21:30 Bisacodyl (Dulcolax Supp) 10 mg DAILY PRN [place] CONSTIPATION; Start 03/17/19 at 21:00 Chlorhexidine Gluconate (Peridex) 15 ml Q12H MM Last administered on 03/21/19 09:28; Admin Dose 15 ML; Start 03/17/19 at 21:00 Digoxin (Digoxin) 0.125 mg DAILY@13 PO Last administered on 03/20/19 13:26; Admin Dose 0.125 MG; Start 03/18/19 at 13:00 Docusate Sodium (Colace) 100 mg DAILY PO Last administered on 03/21/19 09:28; Admin Dose 100 MG; Start 03/18/19 at 09:00 Levalbuterol (Xopenex Neb) 0.63 mg Q6H RESP THERAPY HHN Last administered on 03/21/19 07:38; Admin Dose 0.63 MG; Start 03/17/19 at 21:08 Levetiracetam (Keppra Liquid) 250 mg Q12H GTB Last administered on 03/21/19 09:29; Admin Dose 250 MG; Start 03/17/19 at 21:00 Magnesium Hydroxide (Milk Of Mag) 30 ml DAILY PRN GTB CONSTIPATION; Start 03/17/19 at 21:00 Metoprolol Tartrate (Lopressor) 25 mg BID GTB Last administered on 03/21/19 09 :29; Admin Dose 25 MG; Start 03/17/19 at 21:00 Sodium Chloride 1,000 ml @ 50 mls/hr Q20H IV Last administered on 03/21/19 09:28; Admin Dose 50 MLS/HR; Start 03/17/19 at 21:00 Lansoprazole (Prevacid) 30 mg DAILY@06 GTB Last administered on 03/21/19 05:33; Admin Dose 30 MG; Start 03/18/19 at 06:00 Epoetin Amor-epbx (RETACRIT(non-esrd)) 40,000 unit We@1700 SC Last administered on 03/19/19 17:25; Admin Dose 40,000 UNIT; Start 03/19/19 at 17:00 Ferric Sodium Gluconate Complex 125 mg/Sodium Chloride 110 ml @ 110 mls/hr DAILY@1300 IVPB Last administered on 03/20/19 13:26; Admin Dose 110 MLS/HR; Start 03/20/19 at 13:00; Stop 03/24/19 at 13:59 Multivit/Ca Carb/ B Cmplx/FA/Prenat (Renee-Antonio) 1 tab DAILY GTB Last administered on 03/21/19 09:28; Admin Dose 1 TAB; Start 03/21/19 at 09:00 Zinc Sulfate (Zinc Sulfate) 220 mg DAILY GTB Last administered on 03/21/19 09:28; Admin Dose 220 MG; Start 03/21/19 at 09:00 Collagenase (Santyl) 1 applic BID TOP Last administered on 03/21/19 09:28; Admin Dose 1 APPLIC; Start 03/20/19 at 16:28 FRANCESCO SIU March 21, 2019 10:23
[2019-03-21] MEDS: DIGOXIN 0.125 MG TAB PO SCH (13:36)
[2019-03-21] MEDS: SOD FERRIC GLUC COMPLX 125 MG in SOD CHLORIDE 0.9% 100 ML IVPB SCH (13:36)
[2019-03-22] VITALS (22 sets, daily range): BP systolic 94–139; BP diastolic 52–66; PULSE 60–78; RESP 20–23
[2019-03-22] MEDS: LEVALBUTEROL (NEB) 0.63 MG/3 ML AMP HHN SCH ×4 (02:04→20:29)
[2019-03-22] MEDS: LANSOPRAZOLE 30 MG CAP GTB SCH (05:16)
[2019-03-22] MEDS: METOPROLOL 25 MG TAB GTB SCH ×2 (09:17→20:58)
[2019-03-22] MEDS: MULTIVIT/CA CARB/B CMPLX/FA TAB GTB SCH (09:17)
[2019-03-22] MEDS: COLLAGENASE 5 GM (UD JAR) TOP SCH ×2 (09:17→20:58)
[2019-03-22] MEDS: ZINC SULFATE 220 MG CAP GTB SCH (09:17)
[2019-03-22] MEDS: DOCUSATE SODIUM 100 MG CAP PO SCH (09:17)
[2019-03-22] MEDS: CHLORHEXIDINE GLUCONATE 15 ML UD CUP MM SCH ×2 (09:17→20:57)
[2019-03-22] MEDS: LEVETIRACETAM (100 MG/ML) 5ML CUP GTB SCH ×2 (09:17→20:56)
--- NOTE | 2019-03-22 12:34 | CONS ---
Assessment/Plan Assessment/Plan Hospital Course (Demo Recall) 1. Chronic kidney disease stage III. The patient's renal function is currently at baseline. Continue current treatment plan, supportive care, renally dose all meds. 2. Anemia. Continue to monitor hemoglobin and hematocrit levels. Patient has been seen by hematology workup ongoing. 3. Mineral bone disorder, monitor calcium and phosphorus levels. 4. Hypertension. Continue current blood pressure regimen. 5. Diverticulosis per colonoscopy. The patient is pending a CT abdomen and pel vis per GI. Continue to monitor. 6. Ventilatory respiratory failure. Vent settings have been reviewed. Continue to monitor. Follow up with pulmonary. 7. Dysphagia. Continue tube feeding. 8. Chronic encephalopathy. No change. 9. Seizure disorder. Consultation Date/Type/Reason Admit Date/Time March 17, 2019 at 14:33 Initial Consult Date 03/18/19 Requesting Provider: JAYLEN LUGO MD Date/Time of Note DATE: 03/22/19 TIME: 12:33 24 HR Interval Summary Free Text/Dictation denies n/v or urinary issues gen nad cv rrr pulm ctab abd soft, nd, nt +bs ext: no edema Exam/Review of Systems Exam Vitals Vital Signs Date Temp Pulse Resp B/P (MAP) Pulse Ox O2 O2 Flow FiO2 Time Delivery Rate 03/22/19 68 20 99 30 11:44 03/22/19 98.4 94/52 (66) Mechanical 11:22 Ventilator Intake and Output 03/21/19 03/21/19 03/22/19 1414:59 22:59 06:59 IntakeIntake Total 700 ml 510 ml 1440 ml OutputOutput Total 400 ml 400 ml BalanceBalance 700 ml 110 ml 1040 ml Results Result Diagram: 03/20/19 0600 03/20/19 0600 Medications Medication Current Medications Acetaminophen (Tylenol Liquid) 650 mg Q4H PRN GTB MILD PAIN 1-3; Start 03/17/19 at 21:30 Bisacodyl (Dulcolax Supp) 10 mg DAILY PRN [place] CONSTIPATION; Start 03/17/19 at 21:00 Chlorhexidine Gluconate (Peridex) 15 ml Q12H MM Last administered on 03/22/19at 09:17; Admin Dose 15 ML; Start 03/17/19 at 21:00 Digoxin (Digoxin) 0.125 mg DAILY@13 PO Last administered on 03/21/19 13:36; Admin Dose 0.125 MG; Start 03/18/19 at 13:00 Docusate Sodium (Colace) 100 mg DAILY PO Last administered on 03/22/19 09:17; Admin Dose 100 MG; Start 03/18/19 at 09:00 Levalbuterol (Xopenex Neb) 0.63 mg Q6H RESP THERAPY HHN Last administered on 03/22/19 07:55; Admin Dose 0.63 MG; Start 03/17/19 at 21:08 Levetiracetam (Keppra Liquid) 250 mg Q12H GTB Last administered on 03/22/19 09:17; Admin Dose 250 MG; Start 03/17/19 at 21:00 Magnesium Hydroxide (Milk Of Mag) 30 ml DAILY PRN GTB CONSTIPATION; Start 03/17/19 at 21:00 Metoprolol Tartrate (Lopressor) 25 mg BID GTB Last administered on 03/22/19 09:17; Admin Dose 25 MG; Start 03/17/19 at 21:00 Sodium Chloride 1,000 ml @ 50 mls/hr Q20H IV Last administered on 03/21/19 09:28; Admin Dose 50 MLS/HR; Start 03/17/19 at 21:00 Lansoprazole (Prevacid) 30 mg DAILY@06 GTB Last administered on 03/22/19 05:16; Admin Dose 30 MG; Start 03/18/19 at 06:00 Epoetin Amor-epbx (RETACRIT(non-esrd)) 40,000 unit We@1700 SC Last administered on 03/19/19 17:25; Admin Dose 40,000 UNIT; Start 03/19/19 at 17:00 Ferric Sodium Gluconate Complex 125 mg/Sodium Chloride 110 ml @ 110 mls/hr DAILY@1300 IVPB Last administered on 03/21/19 13:36; Admin Dose 110 MLS/HR; Start 03/20/19 at 13:00; Stop 03/24/19 at 13:59 Multivit/Ca Carb/ B Cmplx/FA/Prenat (Renee-Antonio) 1 tab DAILY GTB Last administered on 03/22/19 09:17; Admin Dose 1 TAB; Start 03/21/19 at 09:00 Zinc Sulfate (Zinc Sulfate) 220 mg DAILY GTB Last administered on 03/22/19at 09:17; Admin Dose 220 MG; Start 03/21/19 at 09:00 Collagenase (Santyl) 1 applic BID TOP Last administered on 03/22/19at 09:17; Admin Dose 1 APPLIC; Start 03/20/19 at 16:28 CHANEL RAMIREZ MD March 22, 2019 12:33
[2019-03-22] MEDS: SOD FERRIC GLUC COMPLX 125 MG in SOD CHLORIDE 0.9% 100 ML IVPB SCH (13:16)
[2019-03-22] MEDS: DIGOXIN 0.125 MG TAB PO SCH (13:17)
[2019-03-22] MEDS: SOD CHLORIDE 0.45% 1,000 ML IV SCH (13:18)
--- NOTE | 2019-03-22 13:34 | PN ---
Date/Time of Note Date/Time of Note DATE: 03/22/19 TIME: 13:32 Assessment/Plan VTE Prophylaxis Risk score (from [facility] [place]0 risk: 5 SCD applied (from [facility] [place] Yes SCD contraindicated: other Pharmacological prophylaxis: other Pharm contraindication: other Lines/Catheters IV Catheter Type (from [facility]): Peripheral IV Urinary Cath still in place: Yes Reason Cath still needed: urinary retention Assessment/Plan Assessment/Plan -Severe diverticulosis with spasm per colonoscopy -Anemia, rule out GI bleed. Dr. Galdamez is following in gastroenterology consultation. Dr. Kiser is following in hematology consultation -Ventilator dependent respiratory failure with tracheostomy. Dr. Davenport is following in pulmonology consultation. -Acute on chronic kidney disease. Monitor BUN and creatinine. Dr. Grant is following in nephrology consultation -Atrial fibrillation, continue metoprolol -Diastolic congestive heart failure. Dr. Hernandez is following in cardiology consultation. -Pulmonary fibrosis, continue Pulmicort. -Dysphagia with G-tube. -Chronic encephalopathy -COPD -History of CVA, continue aspirin. -Seizure disorder/status epilepticus. Continue Keppra and Ativan as needed. -MRSA nares colonization Further recommendations based on clinical course. Plan of care discussed with Dr. Phillips. Result Diagram: 03/20/19 0600 03/22/19 1135 Results 24hrs Laboratory Tests Test 03/22/19 11:35 Sodium Level 139 Potassium Level 4.2 Chloride Level 109 Carbon Dioxide Level 25 Anion Gap 5 Blood Urea Nitrogen 35 H Creatinine 0.89 Est Glomerular Filtrat Rate mL/min Glucose Level 106 Calcium Level 8.5 Magnesium Level 2.7 H Subjective 24 Hr Interval Summary Free Text/Dictation afebrile sees comfortable on trach to vent no new events reported last night dw staff Subjective hx not possible: pt non-verbal Constitutional: requiring O2 Exam/Review of Systems Exam Vitals Vital Signs Date Temp Pulse Resp B/P (MAP) Pulse Ox O2 O2 Flow FiO2 Time Delivery Rate 03/22/19 72 20 98 30 13:20 03/22/19 98.4 94/52 (66) Mechanical 11:22 Ventilator Intake and Output 03/21/19 03/21/19 03/22/19 1414:59 22:59 06:59 IntakeIntake Total 700 ml 510 ml 1440 ml OutputOutput Total 400 ml 400 ml BalanceBalance 700 ml 110 ml 1040 ml Constitutional: alert, frail Psych: nl mood/affect Eyes: nl lids ENMT: nl external ears & nose Respiratory: diminished breath sounds Cardiovascular: nl pulses, other (s1s2) Gastrointestinal: soft, non-tender Musculoskeletal: nl extremities to inspection Extremities: normal pulses Neurological: nl mental status Lymph: nontender Results Results 24hrs Laboratory Tests Test 03/22/19 11:35 Sodium Level 139 Potassium Level 4.2 Chloride Level 109 Carbon Dioxide Level 25 Anion Gap 5 Blood Urea Nitrogen 35 H Creatinine 0.89 Est Glomerular Filtrat Rate mL/min Glucose Level 106 Calcium Level 8.5 Magnesium Level 2.7 H Medications Medication Current Medications Acetaminophen (Tylenol Liquid) 650 mg Q4H PRN GTB MILD PAIN 1-3; Start 03/17/19 at 21:30 Bisacodyl (Dulcolax Supp) 10 mg DAILY PRN [place] CONSTIPATION; Start 03/17/19 at 21: 00 Chlorhexidine Gluconate (Peridex) 15 ml Q12H MM Last administered on 03/22/19 09:17; Admin Dose 15 ML; Start 03/17/19 at 21:00 Digoxin (Digoxin) 0.125 mg DAILY@13 PO Last administered on 03/22/19 13:17; Admin Dose 0.125 MG; Start 03/18/19 at 13:00 Docusate Sodium (Colace) 100 mg DAILY PO Last administered on 03/22/19 09:17; Admin Dose 100 MG; Start 03/18/19 at 09:00 Levalbuterol (Xopenex Neb) 0.63 mg Q6H RESP THERAPY HHN Last administered on 03/22/19 13:21; Admin Dose 0.63 MG; Start 03/17/19 at 21:08 Levetiracetam (Keppra Liquid) 250 mg Q12H GTB Last administered on 03/22/19 09:17; Admin Dose 250 MG; Start 03/17/19 at 21:00 Magnesium Hydroxide (Milk Of Mag) 30 ml DAILY PRN GTB CONSTIPATION; Start 03/17/19 at 21:00 Metoprolol Tartrate (Lopressor) 25 mg BID GTB Last administered on 03/22/19 09:17; Admin Dose 25 MG; Start 03/17/19 at 21:00 Sodium Chloride 1,000 ml @ 50 mls/hr Q20H IV Last administered on 03/22/19 13:18; Admin Dose 50 MLS/HR; Start 03/17/19 at 21:00 Lansoprazole (Prevacid) 30 mg DAILY@06 GTB Last administered on 03/22/19 05:16; Admin Dose 30 MG; Start 03/18/19 at 06:00 Epoetin Amor-epbx (RETACRIT(non-esrd)) 40,000 unit We@1700 SC Last administered on 03/19/19 17:25; Admin Dose 40,000 UNIT; Start 03/19/19 at 17:00 Ferric Sodium Gluconate Complex 125 mg/Sodium Chloride 110 ml @ 110 mls/hr DAILY@1300 IVPB Last administered on 03/22/19 13:16; Admin Dose 110 MLS/HR; Start 03/20/19 at 13:00; Stop 03/24/19 at 13:59 Multivit/Ca Carb/ B Cmplx/FA/Prenat (Renee-Antonio) 1 tab DAILY GTB Last administered on 03/22/19 09:17; Admin Dose 1 TAB; Start 03/21/19 at 09:00 Zinc Sulfate (Zinc Sulfate) 220 mg DAILY GTB Last administered on 03/22/19 09:17; Admin Dose 220 MG; Start 03/21/19 at 09:00 Collagenase (Santyl) 1 applic BID TOP Last administered on 03/22/19 09:17; Admin Dose 1 APPLIC; Start 03/20/19 at 16:28 FRANCESCO SIU March 22, 2019 13:34
--- NOTE | 2019-03-22 14:19 | CONS ---
Consultation Date/Type/Reason Admit Date/Time March 17, 2019 at 14:33 Type of Consult Cardiology Date/Time of Note DATE: 03/22/19 TIME: 14:18 Hx of Present Illness Pt well known to me, debilitated - had very short episode of SVT - a. fib vs a. tach - OK with BB, hold anti-coag with pos GIB. Full note dictated. # [id number] Past Medical History Home Meds Reported Medications Levalbuterol Hcl* (Xopenex*) 1.25 Mg/0.5 Ml Vial.neb, 1.25 MG INHALATION Q6H for WHEEZING AND SOB, EA 03/17/19 Levalbuterol Hcl* (Levalbuterol Hcl*) 1.25 Mg/0.5 Ml Vial.neb, 1.25 MG INHALATION Q3H, VIAL 03/17/19 Ascorbic Acid (Vitamin C) 500 Mg Tab, 500 MG GTB DAILY, TAB 03/17/19 Cran/Vitc/Mannose/Inulin/Brom (Uti-Stat Liquid) 3,875 Mg/30 Ml Liquid, 30 ML GTB BID 03/17/19 Acetaminophen* (Acetaminophen*) 500 MG Extra Strength Tablet, 1000 MG PO Q4H PRN for NEEDED, TAB UNTIL 04/16/19 03/17/19 Acetaminophen* (Tylenol*) 325 Mg Tablet, 650 MG GTB BID PRN for PAIN MGT, TAB 03/17/19 Acetaminophen* (Tylenol*) 325 Mg Tablet, 650 MG GTB Q4H PRN for MILD PAIN LEVEL 1-3, TAB AND FEVER 101F, END DATE 04/16/19 03/17/19 Acetaminophen* (Tylenol*) 325 Mg Tablet, 650 MG GTB NEEDED PRN for TRACH TUBE CHANGE, TAB 03/17/19 Epoetin Amor (Procrit) 4,000 Unit/1 Ml Vial, 4000 UNIT IJ Q WED, VIAL 03/17/19 Amino Acids/Protein Hydrolys (PRO-STAT LIQUID) 30 Ml Liquid.pkt, 30 ML GTB DAILY 03/17/19 Multivitamins* (Theragran*) 1 Tab Tab, 1 TAB GTB DAILY, TAB 03/17/19 Magnesium Hydroxide* (Milk Of Magnesia*) 400 Mg/5 Ml Oral.susp, 30 ML GTB NEEDED, ML END DATE 04/16/19 03/17/19 Metoprolol Tartrate* (Lopressor*) 25 Mg Tab, 25 MG GTB BID, #60 TAB HOLD IF SBP<110 OR HR<60 03/17/19 Levetiracetam* (Levetiracetam*) 500 Mg/5 Ml Solution, 2.5 ML PO Q12H, ML 03/17/19 Mineral Oil* (Fleet* Mineral Oil Enema) Unknown Strength Oil, 1 APPLIC SC NEEDED PRN for CONSTIPATION, ENEMA 03/17/19 Bisacodyl (Dulcolax) 10 Mg Supp.rect, 10 MG RC NEEDED, SUPP.RECT UNTIL 04/16/19 03/17/19 Digoxin* (Digox*) 125 Mcg Tablet, 0.125 MG GTB DAILY PRN for HOLD IF HR<60, TAB 03/17/19 Docusate Sodium* (Colace*) 100 Mg Capsule, 100 MG GTB DAILY, #30 CAP 03/17/19 Chlorhexidine Gluconate (Peridex) 473 Ml Mouthwash, 15 ML MM Q12H, BOTTLE 03/17/19 Discontinued Reported Medications Methylprednisolone Sodium Succinate PF (Solu-Medrol PF) 40 Mg/1 Ml Vial, 30 MG IV Q8H, VIAL 10/27/18 Magnesium Hydroxide* (Milk Of Magnesia*) 400 Mg/5 Ml Oral.susp, 30 ML PO BID, ML 10/27/18 Magnesium Oxide* (Magnesium Oxide*) 400 Mg Tablet, 400 MG PO BID, TAB 10/27/18 Morphine Sulfate* (Morphine* Liq) 10 Mg/0.5 Ml Disp.syrin, 6 ML SL Q4H PRN for PAIN, ML 10/27/18 Metoprolol Tartrate* (Lopressor*) 25 Mg Tab, 25 MG PO BID, #60 TAB HOLD FOR SBP<110 OR HR<60 10/27/18 Levalbuterol Hcl* (Levalbuterol Hcl*) 1.25 Mg/0.5 Ml Vial.neb, 1.25 MG INHALATION Q6H, VIAL 10/27/18 Furosemide* (Lasix*) 20 Mg Tablet, 20 MG PO DAILY, TAB 10/27/18 Famotidine* (Famotidine*) 20 Mg Tablet, 20 MG PO DAILY, #30 TAB 10/27/18 Digoxin* (Digitek*) 125 Mcg Tablet, 0.125 MG PO DAILY, TAB 10/27/18 Collagenase* (Santyl*) 30 Gm Oint..gm., 1 APPLIC TOP .SOILED PRN for SOILED, #1 TUB 10/27/18 Budesonide* (Budesonide*) 0.5 Mg/2 Ml Ampul.neb, 0.5 MG INHALATION BID, AMP 10/27/18 Apixaban* (Eliquis*) 2.5 Mg Tablet, 2.5 MG PO BID, TAB 10/27/18 Ipratropium-Albuterol (Ipratropium-Albuterol) 0.5-3 Mg/3 Ml Ampul.neb, 3 ML INHALATION Q6, #30 VIAL 10/22/18 Bethanechol Chloride* (Bethanechol Chloride*) 25 Mg Tablet, 25 MG PO TID, TAB 10/22/18 Ondansetron Hcl* (Zofran*) 4 Mg Tab, 4 MG PO Q6H PRN for NAUSEA AND OR VOMITING, TAB 05/10/18 L. Acidophilus/Pectin, Nuckolls (Acidophilus Capsule) 1 Each Capsule, 1 EACH PO DAILY, CAP 05/10/18 Epoetin Amor (Epogen) 10,000 Units/Ml Soln, 1.5 ML SC Q MON,WED,FRI,5PM, VIAL 05/10/18 Cyanocobalamin* (Vitamin B-12*) 1,000 Mcg Tablet.sa, 1000 MCG PO BID, TAB 05/10/18 Folic Acid* (Folic Acid*) 1 Mg Tablet, 1 MG PO DAILY, TAB 05/10/18 Atorvastatin Calcium* (Atorvastatin Calcium*) 20 Mg Tablet, 20 MG PO QHS, #30 TAB 05/10/18 Allopurinol* (Allopurinol*) 100 Mg Tablet, 100 MG PO BID for GOUT, TAB 05/10/18 Mineral Oil* (Fleet* Mineral Oil Enema) 133 Ml Oil, 1 APPLIC SC NEEDED PRN for Q2DAYS, ENEMA 05/10/18 Docusate Sodium* (Colace*) 100 Mg Capsule, 100 MG PO Q9PM, #30 CAP 05/10/18 Ferrous Sulfate* (Ferrous Sulfate*) 325 Mg Tabec, 325 MG PO DAILY, TAB 05/10/18 Ascorbic Acid (Vitamin C) 500 Mg Tab, 500 MG PO DAILY, TAB 05/10/18 Multivitamins* (Theragran*) 1 Tab Tab, 1 TAB PO DAILY, TAB 05/10/18 Acetaminophen* (Tylenol*) 325 Mg Tablet, 650 MG PO NEEDED PRN for TRACH TUBE CHANGE, TAB 05/10/18 Medications Current Medications Acetaminophen (Tylenol Liquid) 650 mg Q4H PRN GTB MILD PAIN 1-3; Start 03/17/19 at 21:30 Bisacodyl (Dulcolax Supp) 10 mg DAILY PRN SC CONSTIPATION; Start 03/17/19 at 21:00 Chlorhexidine Gluconate (Peridex) 15 ml Q12H MM Last administered on 03/22/19 09:17; Admin Dose 15 ML; Start 03/17/19 at 21:00 Digoxin (Digoxin) 0.125 mg DAILY@13 PO Last administered on 03/22/19 13:17; Admin Dose 0.125 MG; Start 03/18/19 at 13:00 Docusate Sodium (Colace) 100 mg DAILY PO Last administered on 03/22/19 09:17; Admin Dose 100 MG; Start 03/18/19 at 09:00 Levalbuterol (Xopenex Neb) 0.63 mg Q6H RESP THERAPY HHN Last administered on 03/22/19 13:21; Admin Dose 0.63 MG; Start 03/17/19 at 21:08 Levetiracetam (Keppra Liquid) 250 mg Q12H GTB Last administered on 03/22/19 09:17; Admin Dose 250 MG; Start 03/17/19 at 21:00 Magnesium Hydroxide (Milk Of Mag) 30 ml DAILY PRN GTB CONSTIPATION; Start 03/17/19 at 21:00 Metoprolol Tartrate (Lopressor) 25 mg BID GTB Last administered on 03/22/19 09:17; Admin Dose 25 MG; Start 03/17/19 at 21:00 Sodium Chloride 1,000 ml @ 50 mls/hr Q20H IV Last administered on 03/22/19 13:18; Admin Dose 50 MLS/HR; Start 03/17/19 at 21:00 Lansoprazole (Prevacid) 30 mg DAILY@06 GTB Last administered on 03/22/19 05:16; Admin Dose 30 MG; Start 03/18/19 at 06:00 Epoetin Amor-epbx (RETACRIT(non-esrd)) 40,000 unit We@1700 SC Last administered on 03/19/19at 17:25; Admin Dose 40,000 UNIT; Start 03/19/19 at 17:00 Ferric Sodium Gluconate Complex 125 mg/Sodium Chloride 110 ml @ 110 mls/hr DAILY@1300 IVPB Last administered on 03/22/19at 13:16; Admin Dose 110 MLS/HR; Start 03/20/19 at 13:00; Stop 03/24/19 at 13:59 Multivit/Ca Carb/ B Cmplx/FA/Prenat (Renee-Antonio) 1 tab DAILY GTB Last administered on 03/22/19 09:17; Admin Dose 1 TAB; Start 03/21/19 at 09:00 Zinc Sulfate (Zinc Sulfate) 220 mg DAILY GTB Last administered on 03/22/19 09:17; Admin Dose 220 MG; Start 03/21/19 at 09:00 Collagenase (Santyl) 1 applic BID TOP Last administered on 03/22/19 09:17; Admin Dose 1 APPLIC; Start 03/20/19 at 16:28 Allergies: Coded Allergies: No Known Allergy (Unverified , 03/17/19) Past Surgical History Past Surgical Hx: other Social History Alcohol Use: none Smoking Status: Never smoker Drug Use: none Exam/Review of Systems Vital Signs Vitals Vital Signs Date Temp Pulse Resp B/P (MAP) Pulse Ox O2 O2 Flow FiO2 Time Delivery Rate 03/22/19 72 20 98 30 13:20 03/22/19 98.4 94/52 (66) Mechanical 11:22 Ventilator Intake and Output 03/21/19 03/21/19 03/22/19 1414:59 22:59 06:59 IntakeIntake Total 700 ml 510 ml 1440 ml OutputOutput Total 400 ml 400 ml BalanceBalance 700 ml 110 ml 1040 ml Labs Result Diagram: 03/20/19 0600 03/22/19 1135 Results 24hrs Laboratory Tests Test 03/22/19 11:35 Sodium Level 139 Potassium Level 4.2 Chloride Level 109 Carbon Dioxide Level 25 Anion Gap 5 Blood Urea Nitrogen 35 H Creatinine 0.89 Est Glomerular Filtrat Rate mL/min Glucose Level 106 Calcium Level 8.5 Magnesium Level 2.7 H Medications Medications Current Medications Acetaminophen (Tylenol Liquid) 650 mg Q4H PRN GTB MILD PAIN 1-3; Start 03/17/19 at 21:30 Bisacodyl (Dulcolax Supp) 10 mg DAILY PRN SC CONSTIPATION; Start 03/17/19 at 21:00 Chlorhexidine Gluconate (Peridex) 15 ml Q12H MM Last administered on 03/22/19 09:17; Admin Dose 15 ML; Start 03/17/19 at 21:00 Digoxin (Digoxin) 0.125 mg DAILY@13 PO Last administered on 03/22/19 13:17; Admin Dose 0.125 MG; Start 03/18/19 at 13:00 Docusate Sodium (Colace) 100 mg DAILY PO Last administered on 03/22/19 09:17; Admin Dose 100 MG; Start 03/18/19 at 09:00 Levalbuterol (Xopenex Neb) 0.63 mg Q6H RESP THERAPY HHN Last administered on 03/22/19 13:21; Admin Dose 0.63 MG; Start 03/17/19 at 21:08 Levetiracetam (Keppra Liquid) 250 mg Q12H GTB Last administered on 03/22/19 09:17; Admin Dose 250 MG; Start 03/17/19 at 21:00 Magnesium Hydroxide (Milk Of Mag) 30 ml DAILY PRN GTB CONSTIPATION; Start 03/17/19 at 21:00 Metoprolol Tartrate (Lopressor) 25 mg BID GTB Last administered on 03/22/19 09:17; Admin Dose 25 MG; Start 03/17/19 at 21:00 Sodium Chloride 1,000 ml @ 50 mls/hr Q20H IV Last administered on 03/22/19 13:18; Admin Dose 50 MLS/HR; Start 03/17/19 at 21:00 Lansoprazole (Prevacid) 30 mg DAILY@06 GTB Last administered on 03/22/19 05:16; Admin Dose 30 MG; Start 03/18/19 at 06:00 Epoetin Amor-epbx (RETACRIT(non-esrd)) 40,000 unit We@1700 SC Last administered on 03/19/19 17:25; Admin Dose 40,000 UNIT; Start 03/19/19 at 17:00 Ferric Sodium Gluconate Complex 125 mg/Sodium Chloride 110 ml @ 110 mls/hr DAILY@1300 IVPB Last administered on 03/22/19at 13:16; Admin Dose 110 MLS/HR; Start 03/20/19 at 13:00; Stop 03/24/19 at 13:59 Multivit/Ca Carb/ B Cmplx/FA/Prenat (Renee-Antonio) 1 tab DAILY GTB Last administered on 03/22/19at 09:17; Admin Dose 1 TAB; Start 03/21/19 at 09:00 Zinc Sulfate (Zinc Sulfate) 220 mg DAILY GTB Last administered on 03/22/19 09:17; Admin Dose 220 MG; Start 03/21/19 at 09:00 Collagenase (Santyl) 1 applic BID TOP Last administered on 03/22/19 09:17; Admin Dose 1 APPLIC; Start 03/20/19 at 16:28 KINGSTON HEARD MD March 22, 2019 14:18
--- NOTE | 2019-03-22 19:26 | CONS ---
DATE OF ADMISSION: 03/17/2019 DATE OF CONSULTATION: 03/22/2019 REASON FOR EVALUATION: PVCs. HISTORY OF PRESENT ILLNESS: Mr. Dowd is a 73-year-old woman, known to me from multiple prior admissions, with history of COPD, history of chronic respiratory failure, prior history of CVA, parox ysmal atrial fibrillation, seizure disorder, chronic renal disease, heart failure with preserved ejec tion fraction, and pulmonary fibrosis, who comes to the hospital now for evaluation of anemia and chr onic debility. I have been asked to see patient in consultation because of the reported runs of PVCs . I reviewed her telemetry carefully. There is 1 episode that the patient had few beats of irregula r supraventricular rhythm, possibly atrial fibrillation versus atrial tachycardia, with pulmonary fib rosis which predisposed such event. She appears to be hemodynamically stable at this particular poin t. She is much less alert than last time I remembered seeing her with chronic decompensation from mu ltiple conditions. I think, for now, conservative therapy is expected. The patient would not be a g ood invasive candidate anyway. I am going to review her medications carefully and provide more recom mendations for her care as more information of her condition becomes available. PAST MEDICAL HISTORY: COPD, history of coronary artery disease, history of hypertension, prior history of CVA, chronic resp iratory failure, malnutrition with PEG, history of chronic debilitated state, and pulmonary fibrosis. ALLERGIES: NO KNOWN DRUG ALLERGIES. SOCIAL HISTORY: The patient does not smoke, does not drink, and does not use drugs. FAMILY HISTORY: Positive for hypertension and diabetes per records review. MEDICATIONS: The patient is on zinc sulfide, collagenase, Digoxin 0.125 mg once a day, EPO projectio n, docusate, pantoprazole, bisacodyl, and metoprolol tartrate 25 mg p.o. b.i.d. REVIEW OF SYSTEMS: The patient is not able to provide. According to the nurse, she has been showing some decompensation, but no fever and no chills. Has weakness and respiratory failure, fairly chron ic. She is on PEG feedings, on a stable ventilatory support. PHYSICAL EXAMINATION: VITAL SIGNS: Temperature 98.4, heart rate 72, blood pressure 94/52. GENERAL: She is thin woman in no acute distress, not fully alert, much change just a few months ago. NECK: With trach. HEART: Regular with soft holosystolic murmur. PMI is nondisplaced. LUNGS: Coarse at the base. ABDOMEN: PEG in place. GENITOURINARY: Intact. EXTREMITIES: Show no evidence of edema. There are some chronic changes. LABORATORY DATA: White blood cell count is 7.6, hemoglobin is 8.5, platelets are 379. INR is 1.1. Sodium 139, potassium 4.2, BUN 35, creatinine 0.8. Troponin is negative at 0.036. ASSESSMENT AND PLAN: 1. Premature ventricular contractions. Premature ventricular contractions are not confirmed based o n my interpretation on telemetry strip. We will monitor clinically now. 2. Supraventricular tachycardia, possibly atrial tachycardia versus a short run of atrial tachycardi a. No particular treatment is required. Continue to treat the patient with a beta-jude now. She is also on digoxin which is reasonable. 3. Hypertension. Blood pressure is well optimized now, which was actually in the low side. I think it is reasonable to hydrate as needed. 4. Respiratory failure. Continue respiratory therapy. The patient is on the ventilator. 5. Chronic malnourished state. Continue feedings per PEG. 6. Anemia. Hemoglobin is fairly stable now. No evidence of bleeding. We will monitor clinically. I would like to thank Dr. Phillips for referring this patient for my evaluation. Dictated By: KINGSTON HEARD MD ML/NTS Conf#: [id number] DID#: [id number] CC: JAYLEN PHILLIPS MD;*EndCC*
[2019-03-23] VITALS (21 sets, daily range): BP systolic 111–133; BP diastolic 54–61; PULSE 57–73; RESP 20–21
[2019-03-23] MEDS: LEVALBUTEROL (NEB) 0.63 MG/3 ML AMP HHN SCH ×4 (02:26→19:30)
[2019-03-23] MEDS: LANSOPRAZOLE 30 MG CAP GTB SCH (05:11)
--- NOTE | 2019-03-23 06:11 | PN ---
Date/Time of Note Date/Time of Note DATE: 03/23/19 TIME: 06:09 Assessment/Plan VTE Prophylaxis Risk score (from [facility])>0 risk: 7 SCD applied (from [facility]): Yes SCD contraindicated: other Pharmacological prophylaxis: other Pharm contraindication: other Lines/Catheters IV Catheter Type (from [facility]): Peripheral IV Urinary Cath still in place: Yes Reason Cath still needed: urinary retention Assessment/Plan Assessment/Plan - Abdominal Abscess - ID consult - Vanco/Zosyn - ? IR to drain abscess per Dr Galdamez -Severe diverticulosis with spasm per colonoscopy -Anemia, rule out GI bleed. Dr. Galdamez is following in gastroenterology consultation. Dr. Kiser is following in hematology consultation -Ventilator dependent respiratory failure with tracheostomy. Dr. Davenport is following in pulmonology consultation. -Acute on chronic kidney disease. Monitor BUN and creatinine. Dr. Grant is following in nephrology consultation -Atrial fibrillation, continue metoprolol -Diastolic congestive heart failure. Dr. Hernandez is following in cardiology consultation. -Pulmonary fibrosis, continue Pulmicort. -Dysphagia with G-tube. -Chronic encephalopathy -COPD -History of CVA, continue aspirin. -Seizure disorder/status epilepticus. Continue Keppra and Ativan as needed. -MRSA nares colonization Further recommendations based on clinical course. Plan of care discussed with Dr. Phillips. Result Diagram: 03/20/19 0600 03/22/19 1135 Results 24hrs Laboratory Tests Test 03/22/19 11:35 Sodium Level 139 Potassium Level 4.2 Chloride Level 109 Carbon Dioxide Level 25 Anion Gap 5 Blood Urea Nitrogen 35 H Creatinine 0.89 Est Glomerular Filtrat Rate mL/min Glucose Level 106 Calcium Level 8.5 Magnesium Level 2.7 H Subjective 24 Hr Interval Summary Free Text/Dictation - Abdominal Abscess; will get ID consult; start on Vanco/Zosyn - ? IR to drain abscess per Dr Galdamez Subjective hx not possible: pt non-verbal Constitutional: requiring O2 Exam/Review of Systems Exam Vitals Vital Signs Date Temp Pulse Resp B/P (MAP) Pulse Ox O2 O2 Flow FiO2 Time Delivery Rate 03/23/19 61 20 98 30 06:01 03/23/19 98.1 117/61 Mechanical 04:00 (79) Ventilator 03/22/19 2.0 20:00 Intake and Output 03/22/19 03/22/19 03/23/19 1515:00 23:00 07:00 IntakeIntake Total 100 ml 840 ml OutputOutput Total 600 ml BalanceBalance 100 ml 240 ml Constitutional: non-verbal, frail Psych: nl mood/affect Eyes: nl lids, nl sclera ENMT: nl external ears & nose Neck: other (trach intact) Respiratory: diminished breath sounds (at bases bilaterally) Cardiovascular: nl pulses, other (s1s2) Gastrointestinal: soft, other (gt intact) Musculoskeletal: muscle weakness, range of motion Neurological: confused Skin: other Results Results 24hrs Laboratory Tests Test 03/22/19 11:35 Sodium Level 139 Potassium Level 4.2 Chloride Level 109 Carbon Dioxide Level 25 Anion Gap 5 Blood Urea Nitrogen 35 H Creatinine 0.89 Est Glomerular Filtrat Rate mL/min Glucose Level 106 Calcium Level 8.5 Magnesium Level 2.7 H Medications Medication Current Medications Acetaminophen (Tylenol Liquid) 650 mg Q4H PRN GTB MILD PAIN 1-3; Start 03/17/19 at 21:30 Bisacodyl (Dulcolax Supp) 10 mg DAILY PRN ME CONSTIPATION; Start 03/17/19 at 21:00 Chlorhexidine Gluconate (Peridex) 15 ml Q12H MM Last administered on 03/22/19at 20:57; Admin Dose 15 ML; Start 03/17/19 at 21:00 Digoxin (Digoxin) 0.125 mg DAILY@13 PO Last administered on 03/22/19at 13:17; Admin Dose 0.125 MG; Start 03/18/19 at 13:00 Docusate Sodium (Colace) 100 mg DAILY PO Last administered on 03/22/19at 09:17; Admin Dose 100 MG; Start 03/18/19 at 09:00 Levalbuterol (Xopenex Neb) 0.63 mg Q6H RESP THERAPY HHN Last administered on 03/23/19at 02:26; Admin Dose 0.63 MG; Start 03/17/19 at 21:08 Levetiracetam (Keppra Liquid) 250 mg Q12H GTB Last administered on 03/22/19at 20:56; Admin Dose 250 MG; Start 03/17/19 at 21:00 Magnesium Hydroxide (Milk Of Mag) 30 ml DAILY PRN GTB CONSTIPATION; Start 03/17/19 at 21:00 Metoprolol Tartrate (Lopressor) 25 mg BID GTB Last administered on 03/22/19 20:58; Admin Dose 25 MG; Start 03/17/19 at 21:00 Sodium Chloride 1,000 ml @ 50 mls/hr Q20H IV Last administered on 03/22/19 13:18; Admin Dose 50 MLS/HR; Start 03/17/19 at 21:00 Lansoprazole (Prevacid) 30 mg DAILY@06 GTB Last administered on 03/23/19 05:11; Admin Dose 30 MG; Start 03/18/19 at 06:00 Epoetin Amor-epbx (RETACRIT(non-esrd)) 40,000 unit We@1700 SC Last administered on 03/19/19 17:25; Admin Dose 40,000 UNIT; Start 03/19/19 at 17:00 Ferric Sodium Gluconate Complex 125 mg/Sodium Chloride 110 ml @ 110 mls/hr DAILY@1300 IVPB Last administered on 03/22/19 13:16; Admin Dose 110 MLS/HR; Start 03/20/19 at 13:00; Stop 03/24/19 at 13:59 Multivit/Ca Carb/ B Cmplx/FA/Prenat (Renee-Antonio) 1 tab DAILY GTB Last administered on 03/22/19 09:17; Admin Dose 1 TAB; Start 03/21/19 at 09:00 Zinc Sulfate (Zinc Sulfate) 220 mg DAILY GTB Last administered on 03/22/19 09:17; Admin Dose 220 MG; Start 03/21/19 at 09:00 Collagenase (Santyl) 1 applic BID TOP Last administered on 03/22/19 20:58; Admin Dose 1 APPLIC; Start 03/20/19 at 16:28 FRANCESCO SIU March 23, 2019 06:11
[2019-03-23] MEDS: PIPER-TAZO 3.375 GM IV (PMX) 100 ML IVPB SCH ×4 (06:22→23:43)
[2019-03-23] MEDS ORDERED: VANCOMYCIN IV PER PHARMACY XX SCH (06:30)
[2019-03-23] MEDS ORDERED: VANCOMYCIN HCL 1.25 GM in SOD CHLORIDE 0.9% 250 ML IVPB ONE (08:00)
[2019-03-23] MEDS: LEVETIRACETAM (100 MG/ML) 5ML CUP GTB SCH ×2 (08:32→20:45)
[2019-03-23] MEDS: MULTIVIT/CA CARB/B CMPLX/FA TAB GTB SCH (08:32)
[2019-03-23] MEDS: METOPROLOL 25 MG TAB GTB SCH ×2 (08:32→20:45)
[2019-03-23] MEDS: DOCUSATE SODIUM 100 MG CAP PO SCH (08:33)
[2019-03-23] MEDS: ZINC SULFATE 220 MG CAP GTB SCH (08:33)
[2019-03-23] MEDS: CHLORHEXIDINE GLUCONATE 15 ML UD CUP MM SCH ×2 (08:35→20:44)
[2019-03-23] MEDS: COLLAGENASE 5 GM (UD JAR) TOP SCH ×2 (08:35→20:49)
--- NOTE | 2019-03-23 12:38 | CONS ---
Assessment/Plan Assessment/Plan Hospital Course (Demo Recall) 1. Chronic kidney disease stage III. The patient's renal function is currently at baseline. Continue current treatment plan, supportive care, renally dose all meds. 2. Anemia. Continue to monitor hemoglobin and hematocrit levels. Patient has been seen by hematology workup ongoing. 3. Mineral bone disorder, monitor calcium and phosphorus levels. 4. Hypertension. Continue current blood pressure regimen. 5. Diverticulosis per colonoscopy. Continue to monitor. 6. intra-abdominal abscess: cont abx. possible IR to drain? 7. Ventilatory respiratory failure. Vent settings have been reviewed. Continue to monitor. Follow up with pulmonary. 8. Dysphagia. Continue tube feeding. 9. Chronic encephalopathy. No change. 10. Seizure disorder. Consultation Date/Type/Reason Admit Date/Time March 17, 2019 at 14:33 Initial Consult Date 03/18/19 Requesting Provider: JAYLEN LUGO MD Date/Time of Note DATE: 03/23/19 TIME: 12:36 24 HR Interval Summary Free Text/Dictation urinating via catheter afebrile gen nad cv rrr pulm ctab abd soft ,nd ,nt +bs ext: no edema Exam/Review of Systems Exam Vitals Vital Signs Date Temp Pulse Resp B/P (MAP) Pulse Ox O2 O2 Flow FiO2 Time Delivery Rate 03/23/19 98.8 69 20 120/59 100 Mechanical 11:03 (79) Ventilator 03/23/19 30 08:44 03/22/19 2.0 20:00 Intake and Output 03/22/19 03/22/19 03/23/19 1515:00 23:00 07:00 IntakeIntake Total 100 ml 840 ml 200 ml OutputOutput Total 600 ml 350 ml BalanceBalance 100 ml 240 ml -150 ml Results Result Diagram: 03/23/19 0712 03/23/19 0712 Results 24hrs Laboratory Tests Test 03/23/19 07:12 03/23/19 09:23 White Blood Count 9.1 Red Blood Count 2.74 L Hemoglobin 8.5 L Hematocrit 28.8 L Mean Corpuscular Volume 105.1 H Mean Corpuscular Hemoglobin 31.0 Mean Corpuscular Hemoglobin Concent 29.5 L Red Cell Distribution Width 18.5 H Platelet Count 362 Mean Platelet Volume 9.3 Immature Granulocytes % 1.000 H Neutrophils % 76.4 Lymphocytes % 17.8 Monocytes % 3.5 Eosinophils % 1.0 Basophils % 0.3 Nucleated Red Blood Cells % 0.0 Immature Granulocytes # 0.090 H Neutrophils # 6.9 Lymphocytes # 1.6 Monocytes # 0.3 Eosinophils # 0.1 Basophils # 0.0 Nucleated Red Blood Cells # 0.0 Sodium Level 138 Potassium Level 4.3 Chloride Level 109 Carbon Dioxide Level 24 Anion Gap 5 Blood Urea Nitrogen 31 H Creatinine 0.88 Est Glomerular Filtrat Rate mL/min Glucose Level 86 Calcium Level 8.6 Lactic Acid Level 1.0 Medications Medication Current Medications Acetaminophen (Tylenol Liquid) 650 mg Q4H PRN GTB MILD PAIN 1-3; Start 03/17/19 at 21:30 Bisacodyl (Dulcolax Supp) 10 mg DAILY PRN [place] CONSTIPATION; Start 03/17/19 at 21:00 Chlorhexidine Gluconate (Peridex) 15 ml Q12H MM Last administered on 03/23/19 08:35; Admin Dose 15 ML; Start 03/17/19 at 21:00 Digoxin (Digoxin) 0.125 mg DAILY@13 PO Last administered on 03/22/19 13:17; Admin Dose 0.125 MG; Start 03/18/19 at 13:00 Docusate Sodium (Colace) 100 mg DAILY PO Last administered on 03/22/19 09:17; Admin Dose 100 MG; Start 03/18/19 at 09:00 Levalbuterol (Xopenex Neb) 0.63 mg Q6H RESP THERAPY HHN Last administered on 03/23/19 08:18; Admin Dose 0.63 MG; Start 03/17/19 at 21:08 Levetiracetam (Keppra Liquid) 250 mg Q12H GTB Last administered on 03/22/19 20:56; Admin Dose 250 MG; Start 03/17/19 at 21:00 Magnesium Hydroxide (Milk Of Mag) 30 ml DAILY PRN GTB CONSTIPATION; Start 03/17/19 at 21:00 Metoprolol Tartrate (Lopressor) 25 mg BID GTB Last administered on 03/22/19 20:58; Admin Dose 25 MG; Start 03/17/19 at 21:00 Sodium Chloride 1,000 ml @ 50 mls/hr Q20H IV Last administered on 03/22/19 13:18; Admin Dose 50 MLS/HR; Start 03/17/19 at 21:00 Lansoprazole (Prevacid) 30 mg DAILY@06 GTB Last administered on 03/23/19 05:11; Admin Dose 30 MG; Start 03/18/19 at 06:00 Epoetin Amor-epbx (RETACRIT(non-esrd)) 40,000 unit We@1700 SC Last administered on 03/19/19 17:25; Admin Dose 40,000 UNIT; Start 03/19/19 at 17:00 Ferric Sodium Gluconate Complex 125 mg/Sodium Chloride 110 ml @ 110 mls/hr DAILY@1300 IVPB Last administered on 03/22/19 13:16; Admin Dose 110 MLS/HR; Start 03/20/19 at 13:00; Stop 03/24/19 at 13:59 Multivit/Ca Carb/ B Cmplx/FA/Prenat (Renee-Antonio) 1 tab DAILY GTB Last administered on 03/22/19 09:17; Admin Dose 1 TAB; Start 03/21/19 at 09:00 Zinc Sulfate (Zinc Sulfate) 220 mg DAILY GTB Last administered on 03/22/19 09:17; Admin Dose 220 MG; Start 03/21/19 at 09:00 Collagenase (Santyl) 1 applic BID TOP Last administered on 03/23/19 08:35; Admin Dose 1 APPLIC; Start 03/20/19 at 16:28 Vancomycin HCl (Vanco Iv Per Pharmacy) VANCOMYCIN PER PHARMACY PER PROTOCOL XX ; Start 03/23/19 at 06:30 Piperacillin Sod/ Tazobactam Sod 100 ml @ 200 mls/hr Q6 IVPB Last administered on 03/23/19 06:22; Admin Dose 200 MLS/HR; Start 03/23/19 at 06:30 Vancomycin HCl 250 ml @ 125 mls/hr Q48H IVPB ; Start 03/25/19 at 08:00 CHANEL RAMIREZ MD March 23, 2019 12:38
[2019-03-23] MEDS: DIGOXIN 0.125 MG TAB PO SCH (13:00)
--- NOTE | 2019-03-23 13:47 | CONS ---
Assessment/Plan Assessment/Plan Hospital Course (Demo Recall) ID PRELIMINARY NOTE => Please see Dr. Melendez's ID FULL CONSULT NOTE pending CURRENT ABX: DAY #1 = VANCO IV + ZOSYN 03/23/19 0712 03/23/19 0712 24H INTERVAL SUMMARY * She was admitted with SIRS and anemia -- (+)Diverticulosis on colonoscopy * CT ABD revealing diverticulitis w/small abscess -- started on broad spectrum IV ABX for conservative tx RADIOLOGY IMAGING REPORTS * 03/21/19 CT ABD-PEL: * 1. Sigmoid diverticulosis with a focal area of abnormal wall thickening of the proximal sigmoid colon with an adjacent gas containing fluid collection measuring 3.1 x 3.2 x 8.5 cm extending along the left iliopsoas/iliacus muscles. This could represent peridiverticular abscess/contained perfor ation. No additional fluid collection is identified in the remainder of the abdomen. * 2. Complete atelectasis of the left lower lobe. Query mucus plugging. Consider bronchoscopy for further evaluation. * 3. Unchanged left adrenal nodule. * 4. Cholelithiasis. * 5. Splenomegaly. * 6. Peg tube is in satisfactory position. * 7. Multiple bilateral renal cysts. * 8. Aortoiliac vascular calcifications with no aneurysmal dilatation. * 03/17/19 CXR: IMPRESSION:Chronic interstitial changes throughout the lungs.Small right pleural effusion.Calcified aorta consistent with ath erosclerotic disease. * 03/17/[address] * 1. No intracranial hemorrhage, mass effect or midline shift. * 2. Moderate generalized atrophy. Severe chronic microangiopathic ischemic change. * 3. Multiple areas of chronic infarcts in the right parietal, occipital and temporal lobes. * 4. Intracranial atherosclerosis. * 5. Unchanged left parietal convexity parafalcine presumed meningiomas. Microbiology * NONE THIS ADMISSION * PER REVIEW PRIOR ADMISSION: * Hx of (+)VRE Stool Colonization * Hx of GNR Trach pathogen colonization PHYSICAL EXAMINATION: GENERAL: Afebrile, VSS, opens eyes, nonverbal, chronically ill-appearing HEENT: AT, NC, anicteric NECK: Supple,(+)TRACH secure CHEST: Equal chest rise bilaterally, without dyspnea on observation HEART: Pulse RRR ABDOMEN: Soft EXTREMITIES: Warm, dry, Bilateral lower extremities edema SKIN: no diaphoresis ID ASSESSMENT 73 yo MORBID OBESE F admit with 1. SIRS w/ low grade temps, leukocytosis, transient low b/p 90/44 2. Diverticulitis w/small abscess on CT * 03/21/19 CT ABD-PEL: Sigmoid diverticulosis with a focal area of abnormal wall thickening of the proximal sigmoid colon with an adjacent gas containing fluid collection measuring 3.1 x 3.2 x 8.5 cm extending along the left iliopsoas/iliacus muscles. This could represent peridiverticular abscess/contained perforation. 3. Encephalopathy secondary to hx of CVA 4. Seizure disorder/w/hx of prior status epilepticus 5. Status post healthcare associated pneumonia * CT evidence 03/21/19: Complete atelectasis of the left lower lobe. Query mucus plugging. Consider bronchoscopy for further evaluation. 6. Hx of GNR Tracheobronchitis == Polymicrobial GNR trach colonization 7. Chronic respiratory failure=> (+)Trach * COPD Emphysema * Interstitial Lung Disease * (+)PHTN 8. Hx of PRIOR Bilateral superficial venous thrombus within the cephalic veins. 9. Hx of Bilateral lower extremity cellulitis, likely acute on chronic 10. Hx of Breast folds = moisture yeast dermatitis 11. Atrial fibrillation. 12. Hx of CHF w/pulmonary edema and BLEXT edema 13. Anemia. 14. Dysphagia ABX ALLERGIES: KNDA CURRENT ABX: DAY #1=> VANCO IV + ZOSYN ID RECOMMENDATIONS Started on appropriate ABX Monitor response to conservative Tx . Consultation Date/Type/Reason Admit Date/Time March 17, 2019 at 14:33 Initial Consult Date 03/18/19 Requesting Provider: JAYLEN LUGO MD Date/Time of Note DATE: 03/23/19 TIME: 13:32 Exam/Review of Systems Exam Vitals Vital Signs Date Temp Pulse Resp B/P (MAP) Pulse Ox O2 O2 Flow FiO2 Time Delivery Rate 03/23/19 98.8 69 20 120/59 100 Mechanical 11:03 (79) Ventilator 03/23/19 30 08:44 03/22/19 2.0 20:00 Intake and Output 03/22/19 03/22/19 03/23/19 1515:00 23:00 07:00 IntakeIntake Total 100 ml 840 ml 200 ml OutputOutput Total 600 ml 350 ml BalanceBalance 100 ml 240 ml -150 ml Results Result Diagram: 03/23/1971103/23/19 0712 Results 24hrs Laboratory Tests Test 03/23/19 07:12 03/23/19 09:23 03/23/19 13:00 White Blood Count 9.1 Red Blood Count 2.74 L Hemoglobin 8.5 L Hematocrit 28.8 L Mean Corpuscular Volume 105.1 H Mean Corpuscular Hemoglobin 31.0 Mean Corpuscular Hemoglobin Concent 29.5 L Red Cell Distribution Width 18.5 H Platelet Count 362 Mean Platelet Volume 9.3 Immature Granulocytes % 1.000 H Neutrophils % 76.4 Lymphocytes % 17.8 Monocytes % 3.5 Eosinophils % 1.0 Basophils % 0.3 Nucleated Red Blood Cells % 0.0 Immature Granulocytes # 0.090 H Neutrophils # 6.9 Lymphocytes # 1.6 Monocytes # 0.3 Eosinophils # 0.1 Basophils # 0.0 Nucleated Red Blood Cells # 0.0 Sodium Level 138 Potassium Level 4.3 Chloride Level 109 Carbon Dioxide Level 24 Anion Gap 5 Blood Urea Nitrogen 31 H Creatinine 0.88 Est Glomerular Filtrat Rate mL/min Glucose Level 86 Calcium Level 8.6 Lactic Acid Level 1.0 Bedside Glucose 97 Medications Medication Current Medications Acetaminophen (Tylenol Liquid) 650 mg Q4H PRN GTB MILD PAIN 1-3; Start 03/17/19 at 21:30 Bisacodyl (Dulcolax Supp) 10 mg DAILY PRN [place] CONSTIPATION; Start 03/17/19 at 21:00 Chlorhexidine Gluconate (Peridex) 15 ml Q12H MM Last administered on 03/23/19at 08:35; Admin Dose 15 ML; Start 03/17/19 at 21:00 Digoxin (Digoxin) 0.125 mg DAILY@13 PO Last administered on 03/22/19at 13:17; Admin Dose 0.125 MG; Start 03/18/19 at 13:00 Docusate Sodium (Colace) 100 mg DAILY PO Last administered on 03/22/19at 09:17; Admin Dose 100 MG; Start 03/18/19 at 09:00 Levalbuterol (Xopenex Neb) 0.63 mg Q6H RESP THERAPY HHN Last administered on 03/23/19at 08:18; Admin Dose 0.63 MG; Start 03/17/19 at 21:08 Levetiracetam (Keppra Liquid) 250 mg Q12H GTB Last administered on 03/22/19 20:56; Admin Dose 250 MG; Start 03/17/19 at 21:00 Magnesium Hydroxide (Milk Of Mag) 30 ml DAILY PRN GTB CONSTIPATION; Start 03/17/19 at 21:00 Metoprolol Tartrate (Lopressor) 25 mg BID GTB Last administered on 03/22/19 20:58; Admin Dose 25 MG; Start 03/17/19 at 21:00 Sodium Chloride 1,000 ml @ 50 mls/hr Q20H IV Last administered on 03/22/19 13:18; Admin Dose 50 MLS/HR; Start 03/17/19 at 21:00 Lansoprazole (Prevacid) 30 mg DAILY@06 GTB Last administered on 03/23/19 05:11; Admin Dose 30 MG; Start 03/18/19 at 06:00 Epoetin Amor-epbx (RETACRIT(non-esrd)) 40,000 unit We@1700 SC Last administered on 03/19/19 17:25; Admin Dose 40,000 UNIT; Start 03/19/19 at 17:00 Ferric Sodium Gluconate Complex 125 mg/Sodium Chloride 110 ml @ 110 mls/hr DAILY@1300 IVPB Last administered on 03/22/19 13:16; Admin Dose 110 MLS/HR; Start 03/20/19 at 13:00; Stop 03/24/19 at 13:59 Multivit/Ca Carb/ B Cmplx/FA/Prenat (Renee-Antonio) 1 tab DAILY GTB Last administered on 03/22/19 09:17; Admin Dose 1 TAB; Start 03/21/19 at 09:00 Zinc Sulfate (Zinc Sulfate) 220 mg DAILY GTB Last administered on 03/22/19 09:17; Admin Dose 220 MG; Start 03/21/19 at 09:00 Collagenase (Santyl) 1 applic BID TOP Last administered on 03/23/19 08:35; Admin Dose 1 APPLIC; Start 03/20/19 at 16:28 Vancomycin HCl (Vanco Iv Per Pharmacy) VANCOMYCIN PER PHARMACY PER PROTOCOL XX ; Start 03/23/19 at 06:30 Piperacillin Sod/ Tazobactam Sod 100 ml @ 200 mls/hr Q6 IVPB Last administered on 5/12/19at 13:04; Admin Dose 200 MLS/HR; Start 03/23/19 at 06:30 Vancomycin HCl 250 ml @ 125 mls/hr Q48H IVPB ; Start 03/25/19 at 08:00 ELIAS CORONEL NP March 23, 2019 13:43
--- NOTE | 2019-03-23 14:33 | CONS ---
Consult Date/Type/Reason Admit Date/Time March 17, 2019 at 14:33 Initial Consult Date 03/18/19 Requesting Provider: JAYLEN LUGO MD Date/Time of Note DATE: 03/23/19 TIME: 14:30 Subjective NO acute events - pt comfortable - no CP - in good fluid status now - con't resp Rx. ROS: No fever, no chills, no nausea, no vomiting, no diarrhea/constipation - per nurse Objective Vitals Vital Signs Date Temp Pulse Resp B/P (MAP) Pulse Ox O2 O2 Flow FiO2 Time Delivery Rate 03/23/19 70 12:00 03/23/19 98.8 20 120/59 100 Mechanical 11:03 (79) Ventilator 03/23/19 30 08:44 03/22/19 2.0 20:00 Intake and Output 03/22/19 03/22/19 03/23/19 1515:00 23:00 07:00 IntakeIntake Total 100 ml 840 ml 200 ml OutputOutput Total 600 ml 350 ml BalanceBalance 100 ml 240 ml -150 ml Exam General: WN/WD/NAD, AOx 0 HEENT: Unicetric/atraumatic/EOMI (does not follow commands) NECK: JVD elevated, no thyromegaly Lymph: no lymphadenopathy HEART: regular with no S3, II/ systolic murmur at apex LUNGS: Coarse sounds ABD: soft, NT, ND, +BS : Intact Neuro: h/o CVA SKIN: chronic changes EXT: trace edema Results/Medications Result Diagram: 03/23/19 0712 03/23/19 0712 Results 24 hrs Laboratory Tests Test 03/23/19 07:12 03/23/19 09:23 03/23/19 13:00 White Blood Count 9.1 Red Blood Count 2.74 L Hemoglobin 8.5 L Hematocrit 28.8 L Mean Corpuscular Volume 105.1 H Mean Corpuscular Hemoglobin 31.0 Mean Corpuscular Hemoglobin Concent 29.5 L Red Cell Distribution Width 18.5 H Platelet Count 362 Mean Platelet Volume 9.3 Immature Granulocytes % 1.000 H Neutrophils % 76.4 Lymphocytes % 17.8 Monocytes % 3.5 Eosinophils % 1.0 Basophils % 0.3 Nucleated Red Blood Cells % 0.0 Immature Granulocytes # 0.090 H Neutrophils # 6.9 Lymphocytes # 1.6 Monocytes # 0.3 Eosinophils # 0.1 Basophils # 0.0 Nucleated Red Blood Cells # 0.0 Sodium Level 138 Potassium Level 4.3 Chloride Level 109 Carbon Dioxide Level 24 Anion Gap 5 Blood Urea Nitrogen 31 H Creatinine 0.88 Est Glomerular Filtrat Rate mL/min Glucose Level 86 Calcium Level 8.6 Lactic Acid Level 1.0 Bedside Glucose 97 Home Meds Reported Medications Levalbuterol Hcl* (Xopenex*) 1.25 Mg/0.5 Ml Vial.neb, 1.25 MG INHALATION Q6H for WHEEZING AND SOB, EA 03/17/19 Levalbuterol Hcl* (Levalbuterol Hcl*) 1.25 Mg/0.5 Ml Vial.neb, 1.25 MG INHALATION Q3H, VIAL 03/17/19 Ascorbic Acid (Vitamin C) 500 Mg Tab, 500 MG GTB DAILY, TAB 03/17/19 Cran/Vitc/Mannose/Inulin/Brom (Uti-Stat Liquid) 3,875 Mg/30 Ml Liquid, 30 ML GTB BID 03/17/19 Acetaminophen* (Acetaminophen*) 500 MG Extra Strength Tablet, 1000 MG PO Q4H PRN for NEEDED, TAB UNTIL 04/16/19 03/17/19 Acetaminophen* (Tylenol*) 325 Mg Tablet, 650 MG GTB BID PRN for PAIN MGT, TAB 03/17/19 Acetaminophen* (Tylenol*) 325 Mg Tablet, 650 MG GTB Q4H PRN for MILD PAIN LEVEL 1-3, TAB AND FEVER 101F, END DATE 04/16/19 03/17/19 Acetaminophen* (Tylenol*) 325 Mg Tablet, 650 MG GTB NEEDED PRN for TRACH TUBE CHANGE, TAB 03/17/19 Epoetin Amor (Procrit) 4,000 Unit/1 Ml Vial, 4000 UNIT IJ Q WED, VIAL 03/17/19 Amino Acids/Protein Hydrolys (PRO-STAT LIQUID) 30 Ml Liquid.pkt, 30 ML GTB DAILY 03/17/19 Multivitamins* (Theragran*) 1 Tab Tab, 1 TAB GTB DAILY, TAB 03/17/19 Magnesium Hydroxide* (Milk Of Magnesia*) 400 Mg/5 Ml Oral.susp, 30 ML GTB NEEDED, ML END DATE 04/16/19 03/17/19 Metoprolol Tartrate* (Lopressor*) 25 Mg Tab, 25 MG GTB BID, #60 TAB HOLD IF SBP<110 OR HR<60 03/17/19 Levetiracetam* (Levetiracetam*) 500 Mg/5 Ml Solution, 2.5 ML PO Q12H, ML 03/17/19 Mineral Oil* (Fleet* Mineral Oil Enema) Unknown Strength Oil, 1 APPLIC SC NEEDED PRN for CONSTIPATION, ENEMA 03/17/19 Bisacodyl (Dulcolax) 10 Mg Supp.rect, 10 MG RC NEEDED, SUPP.RECT UNTIL 04/16/19 03/17/19 Digoxin* (Digox*) 125 Mcg Tablet, 0.125 MG GTB DAILY PRN for HOLD IF HR<60, TAB 03/17/19 Docusate Sodium* (Colace*) 100 Mg Capsule, 100 MG GTB DAILY, #30 CAP 03/17/19 Chlorhexidine Gluconate (Peridex) 473 Ml Mouthwash, 15 ML MM Q12H, BOTTLE 03/17/19 Discontinued Reported Medications Methylprednisolone Sodium Succinate PF (Solu-Medrol PF) 40 Mg/1 Ml Vial, 30 MG IV Q8H, VIAL 10/27/18 Magnesium Hydroxide* (Milk Of Magnesia*) 400 Mg/5 Ml Oral.susp, 30 ML PO BID, ML 10/27/18 Magnesium Oxide* (Magnesium Oxide*) 400 Mg Tablet, 400 MG PO BID, TAB 10/27/18 Morphine Sulfate* (Morphine* Liq) 10 Mg/0.5 Ml Disp.syrin, 6 ML SL Q4H PRN for PAIN, ML 10/27/18 Metoprolol Tartrate* (Lopressor*) 25 Mg Tab, 25 MG PO BID, #60 TAB HOLD FOR SBP<110 OR HR<60 10/27/18 Levalbuterol Hcl* (Levalbuterol Hcl*) 1.25 Mg/0.5 Ml Vial.neb, 1.25 MG INH ALATION Q6H, VIAL 10/27/18 Furosemide* (Lasix*) 20 Mg Tablet, 20 MG PO DAILY, TAB 10/27/18 Famotidine* (Famotidine*) 20 Mg Tablet, 20 MG PO DAILY, #30 TAB 10/27/18 Digoxin* (Digitek*) 125 Mcg Tablet, 0.125 MG PO DAILY, TAB 10/27/18 Collagenase* (Santyl*) 30 Gm Oint..gm., 1 APPLIC TOP .SOILED PRN for SOILED, #1 TUB 10/27/18 Budesonide* (Budesonide*) 0.5 Mg/2 Ml Ampul.neb, 0.5 MG INHALATION BID, AMP 10/27/18 Apixaban* (Eliquis*) 2.5 Mg Tablet, 2.5 MG PO BID, TAB 10/27/18 Ipratropium-Albuterol (Ipratropium-Albuterol) 0.5-3 Mg/3 Ml Ampul.neb, 3 ML INHALATION Q6, #30 VIAL 10/22/18 Bethanechol Chloride* (Bethanechol Chloride*) 25 Mg Tablet, 25 MG PO TID, TAB 10/22/18 Ondansetron Hcl* (Zofran*) 4 Mg Tab, 4 MG PO Q6H PRN for NAUSEA AND OR VOMITING, TAB 05/10/18 L. Acidophilus/Pectin, [place] (Acidophilus Capsule) 1 Each Capsule, 1 EACH PO DAILY, CAP 05/10/18 Epoetin Amor (Epogen) 10,000 Units/Ml Soln, 1.5 ML SC Q MON,WED,FRI,5PM, VIAL 05/10/18 Cyanocobalamin* (Vitamin B-12*) 1,000 Mcg Tablet.sa, 1000 MCG PO BID, TAB 05/10/18 Folic Acid* (Folic Acid*) 1 Mg Tablet, 1 MG PO DAILY, TAB 05/10/18 Atorvastatin Calcium* (Atorvastatin Calcium*) 20 Mg Tablet, 20 MG PO QHS, #30 TAB 05/10/18 Allopurinol* (Allopurinol*) 100 Mg Tablet, 100 MG PO BID for GOUT, TAB 05/10/18 Mineral Oil* (Fleet* Mineral Oil Enema) 133 Ml Oil, 1 APPLIC SC NEEDED PRN for Q2DAYS, ENEMA 05/10/18 Docusate Sodium* (Colace*) 100 Mg Capsule, 100 MG PO Q9PM, #30 CAP 05/10/18 Ferrous Sulfate* (Ferrous Sulfate*) 325 Mg Tabec, 325 MG PO DAILY, TAB 05/10/18 Ascorbic Acid (Vitamin C) 500 Mg Tab, 500 MG PO DAILY, TAB 05/10/18 Multivitamins* (Theragran*) 1 Tab Tab, 1 TAB PO DAILY, TAB 05/10/18 Acetaminophen* (Tylenol*) 325 Mg Tablet, 650 MG PO NEEDED PRN for TRACH TUBE CHANGE, TAB 05/10/18 Medications Current Medications Acetaminophen (Tylenol Liquid) 650 mg Q4H PRN GTB MILD PAIN 1-3; Start 03/17/19 at 21:30 Bisacodyl (Dulcolax Supp) 10 mg DAILY PRN [place] CONSTIPATION; Start 03/17/19 at 21:00 Chlorhexidine Gluconate (Peridex) 15 ml Q12H MM Last administered on 03/23/19 08:35; Admin Dose 15 ML; Start 03/17/19 at 21:00 Digoxin (Digoxin) 0.125 mg DAILY@13 PO Last administered on 03/22/19 13:17; Admin Dose 0.125 MG; Start 03/18/19 at 13:00 Docusate Sodium (Colace) 100 mg DAILY PO Last administered on 03/22/19 09:17; Admin Dose 100 MG; Start 03/18/19 at 09:00 Levalbuterol (Xopenex Neb) 0.63 mg Q6H RESP THERAPY HHN Last administered on 03/23/19 13:50; Admin Dose 0.63 MG; Start 03/17/19 at 21:08 Levetiracetam (Keppra Liquid) 250 mg Q12H GTB Last administered on 03/22/19 20:56; Admin Dose 250 MG; Start 03/17/19 at 21:00 Magnesium Hydroxide (Milk Of Mag) 30 ml DAILY PRN GTB CONSTIPATION; Start 03/17/19 at 21:00 Metoprolol Tartrate (Lopressor) 25 mg BID GTB Last administered on 03/22/19 20:58; Admin Dose 25 MG; Start 03/17/19 at 21:00 Sodium Chloride 1,000 ml @ 50 mls/hr Q20H IV Last administered on 03/22/19at 1 3:18; Admin Dose 50 MLS/HR; Start 03/17/19 at 21:00 Lansoprazole (Prevacid) 30 mg DAILY@06 GTB Last administered on 03/23/19 05:11; Admin Dose 30 MG; Start 03/18/19 at 06:00 Epoetin Amor-epbx (RETACRIT(non-esrd)) 40,000 unit We@1700 SC Last administered on 03/19/19at 17:25; Admin Dose 40,000 UNIT; Start 03/19/19 at 17:00 Ferric Sodium Gluconate Complex 125 mg/Sodium Chloride 110 ml @ 110 mls/hr CECILE LY@1300 IVPB Last administered on 03/22/19 13:16; Admin Dose 110 MLS/HR; Start 03/20/19 at 13:00; Stop 03/24/19 at 13:59 Multivit/Ca Carb/ B Cmplx/FA/Prenat (Renee-Antonio) 1 tab DAILY GTB Last administ ered on 03/22/19at 09:17; Admin Dose 1 TAB; Start 03/21/19 at 09:00 Zinc Sulfate (Zinc Sulfate) 220 mg DAILY GTB Last administered on 03/22/19at 09:17; Admin Dose 220 MG; Start 03/21/19 at 09:00 Collagenase (Santyl) 1 applic BID TOP Last administered on 03/23/19at 08:35; Admin Dose 1 APPLIC; Start 03/20/19 at 16:28 Vancomycin HCl (Vanco Iv Per Pharmacy) VANCOMYCIN PER PHARMACY PER PROTOCOL XX ; Start 03/23/19 at 06:30 Piperacillin Sod/ Tazobactam Sod 100 ml @ 200 mls/hr Q6 IVPB Last administered on 03/23/19at 13:04; Admin Dose 200 MLS/HR; Start 03/23/19 at 06:30 Vancomycin HCl 250 ml @ 125 mls/hr Q48H IVPB ; Start 03/25/19 at 08:00 Assessment/Plan Hospital Course (Demo Recall) 1. Premature ventricular contractions. Premature ventricular contractions are not confirmed based on my interpretation on telemetry strip. We will monitor clinically now. No new arrhythmia now. 2. Supraventricular tachycardia, possibly atrial tachycardia versus a short run of atrial tachycardia. No particular treatment is required. Continue to treat the patient with a beta-jude now. She is also on digoxin which is reasonable. Rate controlled now. 3. Hypertension. Blood pressure is well optimized now, which was actually in the low side. I think it is reasonable to hydrate as needed. BP stable. 4. Respiratory failure. Continue respiratory therapy. The patient is on the ventilator. 5. Chronic malnourished state. Continue feedings per PEG. 6. Anemia. Hemoglobin is fairly stable now. No evidence of bleeding. We will monitor clinically. H/H stable now. KINGSTON HEARD MD March 23, 2019 14:33
[2019-03-23] MEDS: SOD FERRIC GLUC COMPLX 125 MG in SOD CHLORIDE 0.9% 100 ML IVPB SCH (14:46)
[2019-03-23] MEDS: SOD CHLORIDE 0.45% 1,000 ML IV SCH (14:49)
[2019-03-23] MEDS: DEXTROSE 5%-0.45% NACL 1,000 ML IV SCH (20:44)
--- NOTE | 2019-03-23 21:45 | CONS ---
DATE OF ADMISSION: 03/17/2019 DATE OF CONSULTATION: HISTORY OF PRESENT ILLNESS: I saw the patient yesterday, discussed the case with . I dictated the report, but it is not on the computer. The patient is a 73-year-old female who has no abdominal pain, no nausea, no vomiting. OBJECTIVE: VITAL SIGNS: Stable. CARDIOVASCULAR: Totally benign. LUNGS: Clear. EXTREMITIES: No edema. CENTRAL NERVOUS SYSTEM: The patient does not communicate. LABORATORY DATA: WBC is within normal limits. CAT scan shows a diverticular abscess walled off perf oration was a fistula formation. IMPRESSION: 1. Diverticular abscess, walled off perforation was a fistula. The patient is totally asymptomatic, has no leukocytosis. 2. Possible meningioma. 3. Vent dependent respiratory failure. 4. Cerebrovascular accident. 5. Hypertension. 6. Anemia of chronic disease. PLAN: To continue antibiotic. Keep the patient n.p.o. Will get a surgical consult and a repeat CAT scan after 7 to 10 days. Dictated By: TYSON NAVARRETE/NTS Conf#: [id number] DID#: [id number] CC: JAYLEN LUGO MD;*EndCC*
--- NOTE | 2019-03-23 21:54 | CONS ---
DATE OF ADMISSION: 03/17/2019 DATE OF CONSULTATION: 03/22/2019 HISTORY OF PRESENT ILLNESS: I saw the patient yesterday, 03/22/2019, Tawana. The patient is a 73-y ear-old female, totally asymptomatic, had a CAT scan done which showed diverticular abscess OBJECTIVE VITAL SIGNS: Stable. ABDOMEN: Totally benign. CARDIOVASCULAR: No peritonitis. Nontender, very soft. LUNGS: The patient is on vent. EXTREMITIES: No edema. CENTRAL NERVOUS SYSTEM: Does not communicate. LABORATORY DATA: WBC is within normal limit. IMPRESSION: 1. Diverticular abscess walled off perforation. There is no free air. It could be also fistula. 2. Vent dependent respiratory failure. 3. Anemia. 4. Status post G-tube. 5. Cerebrovascular accident. 6. Anemia of chronic disease. PLAN: To continue antibiotic. I discussed the case with a nurse practitioner, Blue. Also, I will get a surgical consult. I discussed with the radiologist for possible aspiration of the abscess, bu t as per the radiologist, it is not possible without going through the important organs, so he was re luctant to do it. Dictated By: TYSON NAVARRETE/MONROE Conf#: [id number] DID#: [id number]
[2019-03-24] VITALS (22 sets, daily range): BP systolic 111–136; BP diastolic 51–61; PULSE 58–67; RESP 20–21
[2019-03-24] MEDS: LEVALBUTEROL (NEB) 0.63 MG/3 ML AMP HHN SCH ×2 (01:34→08:12)
[2019-03-24] MEDS: LANSOPRAZOLE 30 MG CAP GTB SCH (06:43)
[2019-03-24] MEDS: PIPER-TAZO 3.375 GM IV (PMX) 100 ML IVPB SCH ×4 (06:43→23:41)
--- NOTE | 2019-03-24 08:13 | CONS ---
Consult Date/Type/Reason Admit Date/Time March 17, 2019 at 14:33 Initial Consult Date 03/18/19 Requesting Provider: JAYLEN LUGO MD Date/Time of Note DATE: 03/24/19 TIME: 08:11 Subjective NO acute events - pt comfortable - no focal ectopy on tele - con't Rx on vent. Per nurse: NO F/C/N/V/D - resp SOB chronic vent Objective Vitals Vital Signs Date Temp Pulse Resp B/P (MAP) Pulse Ox O2 O2 Flow FiO2 Time Delivery Rate 03/24/19 98.0 63 20 136/61 100 Trach 07:18 (86) Collar 03/24/19 30 05:10 03/22/19 2.0 20:00 Intake and Output 03/23/19 03/23/19 03/24/19 1515:00 23:00 07:00 OutputOutput Total 400 ml BalanceBalance -400 ml Exam General: WN/WD/NAD, AOx 0 HEENT: Unicetric/atraumatic/EOMI (does not follow commands) NECK: trach Lymph: no lymphadenopathy HEART: regular with no S3, II/ systolic murmur at apex LUNGS: Coarse sounds ABD: soft, NT, ND, +BS - PEG : Intact Neuro: h/o CVA SKIN: chronic changes EXT: trace edema Results/Medications Result Diagram: 03/23/19 0712 03/24/19 0542 Results 24 hrs Laboratory Tests Test 03/23/19 09:23 03/23/19 13:00 03/23/19 17:21 03/24/19 05:42 Lactic Acid Level 1.0 Bedside Glucose 97 102 White Blood Count Pending Red Blood Count Pending Hemoglobin Pending Hematocrit Pending Mean Corpuscular Pending Volume Mean Corpuscular Pending Hemoglobin Mean Corpuscular Pending Hemoglobin Concent Red Cell Pending Distribution Width Platelet Count Pending Mean Platelet Volume Pending Sodium Level 139 Potassium Level 4.6 Chloride Level 111 H Carbon Dioxide Level 19 L Anion Gap 9 Blood Urea Nitrogen 27 H Creatinine 0.84 Est Glomerular Filtrat Rate mL/min Glucose Level 94 Calcium Level 8.5 Home Meds Reported Medications Levalbuterol Hcl* (Xopenex*) 1.25 Mg/0.5 Ml Vial.neb, 1.25 MG INHALATION Q6H for WHEEZING AND SOB, EA 5//19 Levalbuterol Hcl* (Levalbuterol Hcl*) 1.25 Mg/0.5 Ml Vial.neb, 1.25 MG INHALATION Q3H, VIAL 03/17/19 Ascorbic Acid (Vitamin C) 500 Mg Tab, 500 MG GTB DAILY, TAB 03/17/19 Cran/Vitc/Mannose/Inulin/Brom (Uti-Stat Liquid) 3,875 Mg/30 Ml Liquid, 30 ML GTB BID 03/17/19 Acetaminophen* (Acetaminophen*) 500 MG Extra Strength Tablet, 1000 MG PO Q4H PRN for NEEDED, TAB UNTIL 04/16/19 03/17/19 Acetaminophen* (Tylenol*) 325 Mg Tablet, 650 MG GTB BID PRN for PAIN MGT, TAB 03/17/19 Acetaminophen* (Tylenol*) 325 Mg Tablet, 650 MG GTB Q4H PRN for MILD PAIN LEVEL 1-3, TAB AND FEVER 101F, END DATE 04/16/19 03/17/19 Acetaminophen* (Tylenol*) 325 Mg Tablet, 650 MG GTB NEEDED PRN for TRACH TUBE CHANGE, TAB 03/17/19 Epoetin Amor (Procrit) 4,000 Unit/1 Ml Vial, 4000 UNIT IJ Q WED, VIAL 03/17/19 Amino Acids/Protein Hydrolys (PRO-STAT LIQUID) 30 Ml Liquid.pkt, 30 ML GTB DAILY 03/17/19 Multivitamins* (Theragran*) 1 Tab Tab, 1 TAB GTB DAILY, TAB 03/17/19 Magnesium Hydroxide* (Milk Of Magnesia*) 400 Mg/5 Ml Oral.susp, 30 ML GTB NEEDED, ML END DATE 04/16/19 03/17/19 Metoprolol Tartrate* (Lopressor*) 25 Mg Tab, 25 MG GTB BID, #60 TAB HOLD IF SBP<110 OR HR<60 03/17/19 Levetiracetam* (Levetiracetam*) 500 Mg/5 Ml Solution, 2.5 ML PO Q12H, ML 03/17/19 Mineral Oil* (Fleet* Mineral Oil Enema) Unknown Strength Oil, 1 APPLIC TX NEEDED PRN for CONSTIPATION, ENEMA 03/17/19 Bisacodyl (Dulcolax) 10 Mg Supp.rect, 10 MG RC NEEDED, SUPP.RECT UNTIL 04/16/19 03/17/19 Digoxin* (Digox*) 125 Mcg Tablet, 0.125 MG GTB DAILY PRN for HOLD IF HR<60, TAB 03/17/19 Docusate Sodium* (Colace*) 100 Mg Capsule, 100 MG GTB DAILY, #30 CAP 03/17/19 Chlorhexidine Gluconate (Peridex) 473 Ml Mouthwash, 15 ML MM Q12H, BOTTLE 03/17/19 Discontinued Reported Medications Methylprednisolone Sodium Succinate PF (Solu-Medrol PF) 40 Mg/1 Ml Vial, 30 MG IV Q8H, VIAL 10/27/18 Magnesium Hydroxide* (Milk Of Magnesia*) 400 Mg/5 Ml Oral.susp, 30 ML PO BID, ML 10/27/18 Magnesium Oxide* (Magnesium Oxide*) 400 Mg Tablet, 400 MG PO BID, TAB 10/27/18 Morphine Sulfate* (Morphine* Liq) 10 Mg/0.5 Ml Disp.syrin, 6 ML SL Q4H PRN for PAIN, ML 10/27/18 Metoprolol Tartrate* (Lopressor*) 25 Mg Tab, 25 MG PO BID, #60 TAB HOLD FOR SBP<110 OR HR<60 10/27/18 Levalbuterol Hcl* (Levalbuterol Hcl*) 1.25 Mg/0.5 Ml Vial.neb, 1.25 MG INHALATION Q6H, VIAL 10/27/18 Furosemide* (Lasix*) 20 Mg Tablet, 20 MG PO DAILY, TAB 10/27/18 Famotidine* (Famotidine*) 20 Mg Tablet, 20 MG PO DAILY, #30 TAB 10/27/18 Digoxin* (Digitek*) 125 Mcg Tablet, 0.125 MG PO DAILY, TAB 10/27/18 Collagenase* (Santyl*) 30 Gm Oint..gm., 1 APPLIC TOP .SOILED PRN for SOILED, #1 TUB 10/27/18 Budesonide* (Budesonide*) 0.5 Mg/2 Ml Ampul.neb, 0.5 MG INHALATION BID, AMP 10/27/18 Apixaban* (Eliquis*) 2.5 Mg Tablet, 2.5 MG PO BID, TAB 10/27/18 Ipratropium-Albuterol (Ipratropium-Albuterol) 0.5-3 Mg/3 Ml Ampul.neb, 3 ML INHALATION Q6, #30 VIAL 10/22/18 Bethanechol Chloride* (Bethanechol Chloride*) 25 Mg Tablet, 25 MG PO TID, TAB 10/22/18 Ondansetron Hcl* (Zofran*) 4 Mg Tab, 4 MG PO Q6H PRN for NAUSEA AND OR VOMITING, TAB 05/10/18 L. Acidophilus/Pectin, [place] (Acidophilus Capsule) 1 Each Capsule, 1 EACH PO DAILY, CAP 05/10/18 Epoetin Amor (Epogen) 10,000 Units/Ml Soln, 1.5 ML SC Q MON,WED,FRI,5PM, VIAL 05/10/18 Cyanocobalamin* (Vitamin B-12*) 1,000 Mcg Tablet.sa, 1000 MCG PO BID, TAB 05/10/18 Folic Acid* (Folic Acid*) 1 Mg Tablet, 1 MG PO DAILY, TAB 05/10/18 Atorvastatin Calcium* (Atorvastatin Calcium*) 20 Mg Tablet, 20 MG PO QHS, #30 TAB 05/10/18 Allopurinol* (Allopurinol*) 100 Mg Tablet, 100 MG PO BID for GOUT, TAB 05/10/18 Mineral Oil* (Fleet* Mineral Oil Enema) 133 Ml Oil, 1 APPLIC TX NEEDED PRN for Q2DAYS, ENEMA 05/10/18 Docusate Sodium* (Colace*) 100 Mg Capsule, 100 MG PO Q9PM, #30 CAP 05/10/18 Ferrous Sulfate* (Ferrous Sulfate*) 325 Mg Tabec, 325 MG PO DAILY, TAB 05/10/18 Ascorbic Acid (Vitamin C) 500 Mg Tab, 500 MG PO DAILY, TAB 05/10/18 Multivitamins* (Theragran*) 1 Tab Tab, 1 TAB PO DAILY, TAB 05/10/18 Acetaminophen* (Tylenol*) 325 Mg Tablet, 650 MG PO NEEDED PRN for TRACH TUBE CHANGE, TAB 05/10/18 Medications Current Medications Acetaminophen (Tylenol Liquid) 650 mg Q4H PRN GTB MILD PAIN 1-3; Start 03/17/19 at 21:30 Bisacodyl (Dulcolax Supp) 10 mg DAILY PRN [place] CONSTIPATION; Start 03/17/19 at 21:00 Chlorhexidine Gluconate (Peridex) 15 ml Q12H MM Last administered on 03/23/19 20:44; Admin Dose 15 ML; Start 03/17/19 at 21:00 Digoxin (Digoxin) 0.125 mg DAILY@13 PO Last administered on 03/22/19 13:17; Admin Dose 0.125 MG; Start 03/18/19 at 13:00 Docusate Sodium (Colace) 100 mg DAILY PO Last administered on 03/22/19 09:17; Admin Dose 100 MG; Start 03/18/19 at 09:00 Levalbuterol (Xopenex Neb) 0.63 mg Q6H RESP THERAPY HHN Last administered on 03/24/19 01:34; Admin Dose 0.63 MG; Start 03/17/19 at 21:08 Levetiracetam (Keppra Liquid) 250 mg Q12H GTB Last administered on 03/23/19 20:45; Admin Dose 250 MG; Start 03/17/19 at 21:00 Magnesium Hydroxide (Milk Of Mag) 30 ml DAILY PRN GTB CONSTIPATION; Start 03/17/19 at 21:00 Metoprolol Tartrate (Lopressor) 25 mg BID GTB Last administered on 03/23/19 20:45; Admin Dose 25 MG; Start 03/17/19 at 21:00 Lansoprazole (Prevacid) 30 mg DAILY@06 GTB Last administered on 03/24/19 06:43; Admin Dose 30 MG; Start 03/18/19 at 06:00 Epoetin Amor-epbx (RETACRIT(non-esrd)) 40,000 unit We@1700 SC Last administered on 03/19/19 17:25; Admin Dose 40,000 UNIT; Start 03/19/19 at 17:00 Ferric Sodium Gluconate Complex 125 mg/Sodium Chloride 110 ml @ 110 mls/hr DAILY@1300 IVPB Last administered on 03/23/19 14:46; Admin Dose 110 MLS/HR; Start 03/20/19 at 13:00; Stop 03/24/19 at 13:59 Multivit/Ca Carb/ B Cmplx/FA/Prenat (Renee-Antonio) 1 tab DAILY GTB Last administered on 03/22/19 09:17; Admin Dose 1 TAB; Start 03/21/19 at 09:00 Zinc Sulfate (Zinc Sulfate) 220 mg DAILY GTB Last administered on 03/22/19at 09:17; Admin Dose 220 MG; Start 03/21/19 at 09:00 Collagenase (Santyl) 1 applic BID TOP Last administered on 03/23/19at 20:49; Admin Dose 1 APPLIC; Start 03/20/19 at 16:28 Vancomycin HCl (Vanco Iv Per Pharmacy) VANCOMYCIN PER PHARMACY PER PROTOCOL XX ; Start 03/23/19 at 06:30 Piperacillin Sod/ Tazobactam Sod 100 ml @ 200 mls/hr Q6 IVPB Last administered on 03/24/19at 06:43; Admin Dose 200 MLS/HR; Start 03/23/19 at 06:30 Vancomycin HCl 250 ml @ 125 mls/hr Q48H IVPB ; Start 03/25/19 at 08:00 Dextrose/Sodium Chloride 1,000 ml @ 75 mls/hr [id number] IV Last administered on 03/23/19at 20:44; Admin Dose 75 MLS/HR; Start 03/23/19 at 19:30 Assessment/Plan Hospital Course (Demo Recall) 1. Premature ventricular contractions. Premature ventricular contractions are not confirmed based on my interpretation on telemetry strip. We will monitor clinically now. No new arrhythmia now. NO focal ectopy on tele. 2. Supraventricular tachycardia, possibly atrial tachycardia versus a short run of atrial tachycardia. No particular treatment is required. Continue to treat the patient with a beta-jude now. She is also on digoxin which is reasonable. Rate controlled now. In sinus now - rachele at times - no pauses. 3. Hypertension. Blood pressure is well optimized now, which was actually in the low side. I think it is reasonable to hydrate as needed. BP stable. Stable overall. 4. Respiratory failure. Continue respiratory therapy. The patient is on the ventilator. 5. Chronic malnourished state. Continue feedings per PEG. At goal. 6. Anemia. Hemoglobin is fairly stable now. No evidence of bleeding. We will monitor clinically. H/H stable now. KINGSTON HEARD MD March 24, 2019 08:13
--- NOTE | 2019-03-24 08:23 | PN ---
DATE: 03/24/2019 SUBJECTIVE: The patient is stable, no events overnight. OBJECTIVE: VITAL SIGNS: Blood pressure is 136/61, respirations 20, pulse 63, temperature 98.0. HEENT: Head is normocephalic. NECK: Supple. HEART: Regular rate. LUNGS: Show diminished breath sounds at the base. ABDOMEN: Soft, nontender to palpation without rebound or guarding. EXTREMITIES: Negative for clubbing, cyanosis, no edema. DERMATOLOGIC: No rashes. MUSCULOSKELETAL: No joint effusion. NEUROLOGIC: No change in exam. MEDICATIONS: The patient's medications have been reviewed. LABORATORY DATA: Reviewed. ASSESSMENT AND PLAN: 1. Chronic kidney disease, stage III. The patient's renal function is stable. Continue current rosibel atment plans, supportive care, renally dose all medications. 2. Anemia. Continue to monitor hemoglobin and hematocrit levels. Workup is ongoing by hematology. 3. Mineral bone disorder. Monitor calcium and phosphorus levels. 4. Hypertension. Continue current blood pressure regimen. 5. Diverticulosis. The patient was seen by GI. Continue to monitor. 6. Possible intraabdominal abscess. Continue current antibiotic regimen. Possible IR to drain. Co ntinue to monitor. Follow up with primary team. 7. Ventilator-dependent respiratory failure. Vent settings have been reviewed. Continue to monitor . Follow up with pulmonary. 8. Dysphagia. Continue tube feeding. 9. Chronic encephalopathy. No change. 10. Seizure disorder. Dictated By: RAJINDER ATWOOD DO NR/NTS Conf#: [id number] DID#: [id number] CC: MENDEL FIELDS MD; JAYLEN LUGO MD;*EndCC*
[2019-03-24] MEDS: DEXTROSE 5%-0.45% NACL 1,000 ML IV SCH ×2 (08:50→22:10)
--- NOTE | 2019-03-24 08:58 | CONS ---
Assessment/Plan Assessment/Plan Hospital Course (Demo Recall) 1. Anemia of chronic disease --per DR Kiser note "pt is noted to have a macrocytic anemia which is mostly likely 2/2 underlying myelodysplastic syndrome" 2. Chronic kidney disease. 3. Hypertension. 4. Paroxysmal atrial fibrillation. 5. Cerebrovascular accident. 6. Possible meningioma. 7. Vent dependent respiratory failure. 8. Dysphagia, status post G-tube. 9. S/P colonoscopy 03/20 -found severe diverticulosis of left side of colon with spasm and poor prep 10. Walled off diverticular perforation abscess - no free air, could be also fistula. CT abd 03/21: 1. Sigmoid diverticulosis with a focal area of abnormal wall thickening of the proximal sigmoid colon with an adjacent gas containing fluid collection measuring 3.1 x 3.2 x 8.5 cm extending along the left iliopsoas/iliacus muscles. This could represent peridiverticular abscess/contained perforation. No additional fluid collection is identified in the remainder of the abdomen. 2. Complete atelectasis of the left lower lobe. Query mucus plugging. Consider bronchoscopy for further evaluation. 3. Unchanged left adrenal nodule. 4. Cholelithiasis. 5. Splenomegaly. 6. Peg tube is in satisfactory position. 7. Multiple bilateral renal cysts. 8. Aortoiliac vascular calcifications with no aneurysmal dilatation. PLAN: Continue abx Surgical consult IR is reluctant to aspirate, will monitor Hold Tube feeds Pt examined and plan of care discussed with Dr. Galdamez Consultation Date/Type/Reason Admit Date/Time March 17, 2019 at 14:33 Initial Consult Date 03/18/19 Requesting Provider: JAYLEN LUGO MD Date/Time of Note DATE: 03/24/19 TIME: 08:46 Exam/Review of Systems Exam Vitals Vital Signs Date Temp Pulse Resp B/P (MAP) Pulse Ox O2 O2 Flow FiO2 Time Delivery Rate 03/24/19 98.0 63 20 136/61 100 Trach 07:18 (86) Collar 03/24/19 30 05:10 03/22/19 2.0 20:00 Intake and Output 03/23/19 03/23/19 03/24/19 1515:00 23:00 07:00 OutputOutput Total 400 ml BalanceBalance -400 ml Head: normocephalic Eyes: PERRL Gastrointestinal: soft, non-tender (no non verbal cues to pain to palpitations), bowel sounds Results Result Diagram: 03/23/19 0712 03/24/19 0542 Results 24hrs Laboratory Tests Test 03/23/19 09:23 03/23/19 13:00 03/23/19 17:21 03/24/19 05:42 Lactic Acid Level 1.0 Bedside Glucose 97 102 White Blood Count Pending Red Blood Count Pending Hemoglobin Pending Hematocrit Pending Mean Corpuscular Pending Volume Mean Corpuscular Pending Hemoglobin Mean Corpuscular Pending Hemoglobin Concent Red Cell Pending Distribution Width Platelet Count Pending Mean Platelet Volume Pending Sodium Level 139 Potassium Level 4.6 Chloride Level 111 H Carbon Dioxide Level 19 L Anion Gap 9 Blood Urea Nitrogen 27 H Creatinine 0.84 Est Glomerular Filtrat Rate mL/min Glucose Level 94 Calcium Level 8.5 Medications Medication Current Medications Acetaminophen (Tylenol Liquid) 650 mg Q4H PRN GTB MILD PAIN 1-3; Start 03/17/19 at 21:30 Bisacodyl (Dulcolax Supp) 10 mg DAILY PRN [place] CONSTIPATION; Start 03/17/19 at 21:00 Chlorhexidine Gluconate (Peridex) 15 ml Q12H MM Last administered on 03/23/19at 20:44; Admin Dose 15 ML; Start 03/17/19 at 21:00 Digoxin (Digoxin) 0.125 mg DAILY@13 PO Last administered on 03/22/19 13:17; Admin Dose 0.125 MG; Start 03/18/19 at 13:00 Docusate Sodium (Colace) 100 mg DAILY PO Last administered on 03/22/19 09:17; Admin Dose 100 MG; Start 03/18/19 at 09:00 Levalbuterol (Xopenex Neb) 0.63 mg Q6H RESP THERAPY HHN Last administered on 08:12; Admin Dose 0.63 MG; Start 03/17/19 at 21:08 Levetiracetam (Keppra Liquid) 250 mg Q12H GTB Last administered on 03/23/19at 20:45; Admin Dose 250 MG; Start 03/17/19 at 21:00 Magnesium Hydroxide (Milk Of Mag) 30 ml DAILY PRN GTB CONSTIPATION; Start 03/17/19 at 21:00 Metoprolol Tartrate (Lopressor) 25 mg BID GTB Last administered on 03/23/19 20:45; Admin Dose 25 MG; Start 03/17/19 at 21:00 Lansoprazole (Prevacid) 30 mg DAILY@06 GTB Last administered on 03/24/19 06:43; Admin Dose 30 MG; Start 03/18/19 at 06:00 Epoetin Amor-epbx (RETACRIT(non-esrd)) 40,000 unit We@1700 SC Last administered on 03/19/19 17:25; Admin Dose 40,000 UNIT; Start 03/19/19 at 17:00 Ferric Sodium Gluconate Complex 125 mg/Sodium Chloride 110 ml @ 110 mls/hr DAILY@1300 IVPB Last administered on 03/23/19 14:46; Admin Dose 110 MLS/HR; Start 03/20/19 at 13:00; Stop 03/24/19 at 13:59 Multivit/Ca Carb/ B Cmplx/FA/Prenat (Renee-Antonio) 1 tab DAILY GTB Last administered on 03/22/19 09:17; Admin Dose 1 TAB; Start 03/21/19 at 09:00 Zinc Sulfate (Zinc Sulfate) 220 mg DAILY GTB Last administered on 03/22/19 09: 17; Admin Dose 220 MG; Start 03/21/19 at 09:00 Collagenase (Santyl) 1 applic BID TOP Last administered on 03/23/19 20:49; Admin Dose 1 APPLIC; Start 03/20/19 at 16:28 Vancomycin HCl (Vanco Iv Per Pharmacy) VANCOMYCIN PER PHARMACY PER PROTOCOL XX ; Start 03/23/19 at 06:30 Piperacillin Sod/ Tazobactam Sod 100 ml @ 200 mls/hr Q6 IVPB Last administered on 03/24/19 06:43; Admin Dose 200 MLS/HR; Start 03/23/19 at 06:30 Vancomycin HCl 250 ml @ 125 mls/hr Q48H IVPB ; Start 03/25/19 at 08:00 Dextrose/Sodium Chloride 1,000 ml @ 75 mls/hr [id number] IV Last administered on 03/23/19 20:44; Admin Dose 75 MLS/HR; Start 03/23/19 at 19:30 TEODORA DAVILA March 24, 2019 08:58
[2019-03-24] MEDS: CHLORHEXIDINE GLUCONATE 15 ML UD CUP MM SCH ×2 (09:25→21:31)
[2019-03-24] MEDS: COLLAGENASE 5 GM (UD JAR) TOP SCH ×2 (09:26→21:31)
[2019-03-24] MEDS: LEVETIRACETAM (100 MG/ML) 5ML CUP GTB SCH ×2 (09:26→21:29)
[2019-03-24] MEDS: DOCUSATE SODIUM 100 MG CAP PO SCH (09:27)
[2019-03-24] MEDS: ZINC SULFATE 220 MG CAP GTB SCH (09:27)
[2019-03-24] MEDS: MULTIVIT/CA CARB/B CMPLX/FA TAB GTB SCH (09:27)
[2019-03-24] MEDS: METOPROLOL 25 MG TAB GTB SCH ×2 (09:34→21:31)
[2019-03-24] MEDS: ACETYLCYSTEINE 20% 4 ML VIAL NEB SCH ×3 (11:00→20:08)
--- NOTE | 2019-03-24 12:03 | PN ---
DATE: 03/24/2019 GENERAL: The patient general condition is same. She is noncognitive. No eye opening, response to ve rbal or painful stimuli. She is on continuous ventilator support through tracheostomy. Her breathin g appears comfortable synchronized with the ventilator. PHYSICAL EXAMINATION: VITAL SIGNS: Show temperature 98, blood pressure 136/61, pulse rate 63, respirations 20, pulse oxime try 100% saturation. NECK: Tracheal secretions are minimal to moderate. No purulence or bleeding seen. HEART: Regular rhythm. CHEST: Breath sounds are heard bilaterally, diminished in the lower lung corona with a few intermitt ent rales and rhonchi. Otherwise, fairly clear. ABDOMEN: Soft, no distention seen. She is n.p.o. in preparation for drainage of the abdominal absce ss. EXTREMITIES: Show no edema. Generalized spasticity in all the extremities. LABORATORY DATA: The CT scan of the chest, CT scan of the abdomen done on 03/21/2019 is reported to show atelectasis of the left lower lobe. The lab tests show WBC 8600, hemoglobin 9.2, hematocrit 30. 6, platelets within normal limits. The chemistry panel shows sodium 139, potassium 4.6, BUN of 27, c reatinine 0.84, glucose 94. BUN and creatinine have shown progressive improvement. IMPRESSION: 1. Chronic ventilator dependent respiratory failure. 2. Atelectasis of the left lower lobe, probably due to retained secretions. 3. Chronic encephalopathy following cardiac arrest. 4. History of advanced chronic obstructive lung disease. 5. History of congestive heart failure. 6. History of paroxysmal atrial fibrillation. 7. Status post cerebrovascular accident. 8. History of seizure disorder. 9. Chronic anemia. 10. Azotemia, progressively improving. PLAN: 1. Continue long-term ventilator support. 2. Continue bronchodilator inhalation therapy to maintain pulmonary hygiene and clear the secretions . 3. Will add Mucomyst to help clear the secretions. 4. Will also adjust oxygen therapy to clear the secretions. 5. Follow up chest x-ray has been ordered. Dictated By: KORTNEY GAMEZ MD SR/NTS Conf#: [id number] DID#: [id number] CC: JAYLEN LUGO MD;*EndCC*
--- NOTE | 2019-03-24 13:51 | PN ---
Date/Time of Note Date/Time of Note DATE: 03/24/19 TIME: 13:45 Assessment/Plan VTE Prophylaxis Risk score (from [facility])>0 risk: 6 SCD applied (from [facility]): Yes Pharmacological prophylaxis: NA/contraindicated Pharm contraindication: surgical contra Lines/Catheters IV Catheter Type (from [facility]): Peripheral IV Central line still needed: Yes Urinary Cath still in place: Yes Reason Cath still needed: urinary retention Assessment/Plan Hospital Course Patient continues on vent. Pt is NPO, continued on IVF. No distress. Assessment/Plan -Diverticular abscess, pending surgical evaluation. Continue NPO, IVF. -Severe diverticulosis with spasm per colonoscopy. Dr. Galdamez is following in gastroenterology consultation. -Anemia. Stool for OB neg. Continue Epogen and Iron supplementation. Dr. Kiser is following in hematology consultation -Ventilator dependent respiratory failure with tracheostomy. Dr. Davenport is following in pulmonology consultation. -Acute on chronic kidney disease. Monitor BUN and creatinine. Dr. Grant is following in nephrology consultation -Atrial fibrillation, continue metoprolol -Diastolic congestive heart failure. Dr. Hernandez is following in cardiology consultation. -Pulmonary fibrosis, continue Pulmicort. -Dysphagia with G-tube. -Chronic encephalopathy -COPD -History of CVA, continue aspirin. -Seizure disorder/status epilepticus. Continue Keppra and Ativan as needed. -MRSA nares colonization Further recommendations based on clinical course. Plan of care discussed with Dr. Phillips. Result Diagram: 03/24/19 0847 03/24/19 0542 Results 24hrs Laboratory Tests Test 03/23/19 17:21 03/24/19 05:42 03/24/19 08:47 Bedside Glucose 102 Sodium Level 139 Potassium Level 4.6 Chloride Level 111 H Carbon Dioxide Level 19 L Anion Gap 9 Blood Urea Nitrogen 27 H Creatinine 0.84 Est Glomerular Filtrat Rate mL/min Glucose Level 94 Calcium Level 8.5 White Blood Count 8.6 Red Blood Count 2.99 L Hemoglobin 9.2 L Hematocrit 30.6 L Mean Corpuscular Volume 102.3 H Mean Corpuscular Hemoglobin 30.8 Mean Corpuscular Hemoglobin Concent 30.1 L Red Cell Distribution Width 18.6 H Platelet Count 323 Mean Platelet Volume 9.2 Immature Granulocytes % 1.000 H Neutrophils % 74.7 Lymphocytes % 18.5 Monocytes % 4.3 Eosinophils % 1.2 Basophils % 0.3 Nucleated Red Blood Cells % 0.0 Immature Granulocytes # 0.090 H Neutrophils # 6.4 Lymphocytes # 1.6 Monocytes # 0.4 Eosinophils # 0.1 Basophils # 0.0 Nucleated Red Blood Cells # 0.0 Exam/Review of Systems Exam Vitals Vital Signs Date Temp Pulse Resp B/P (MAP) Pulse Ox O2 O2 Flow FiO2 Time Delivery Rate 03/24/19 64 12:44 03/24/19 97.5 20 127/58 99 Trach 11:48 (81) Collar 03/24/19 30 09:00 03/22/19 2.0 20:00 Intake and Output 03/23/19 03/23/19 03/24/19 1515:00 23:00 07:00 OutputOutput Total 400 ml BalanceBalance -400 ml Exam Constitutional: frail Neck: other (trach) Respiratory: diminished breath sounds Cardiovascular: regular rate and rhythm Gastrointestinal: soft, non-tender, other (G-tube) Extremities: normal pulses Neurological: lethargic Results Results 24hrs Laboratory Tests Test 03/23/19 17:21 03/24/19 05:42 03/24/19 08:47 Bedside Glucose 102 Sodium Level 139 Potassium Level 4.6 Chloride Level 111 H Carbon Dioxide Level 19 L Anion Gap 9 Blood Urea Nitrogen 27 H Creatinine 0.84 Est Glomerular Filtrat Rate mL/min Glucose Level 94 Calcium Level 8.5 White Blood Count 8.6 Red Blood Count 2.99 L Hemoglobin 9.2 L Hematocrit 30.6 L Mean Corpuscular Volume 102.3 H Mean Corpuscular Hemoglobin 30.8 Mean Corpuscular Hemoglobin Concent 30.1 L Red Cell Distribution Width 18.6 H Platelet Count 323 Mean Platelet Volume 9.2 Immature Granulocytes % 1.000 H Neutrophils % 74.7 Lymphocytes % 18.5 Monocytes % 4.3 Eosinophils % 1.2 Basophils % 0.3 Nucleated Red Blood Cells % 0.0 Immature Granulocytes # 0.090 H Neutrophils # 6.4 Lymphocytes # 1.6 Monocytes # 0.4 Eosinophils # 0.1 Basophils # 0.0 Nucleated Red Blood Cells # 0.0 Medications Medication Current Medications Acetaminophen (Tylenol Liquid) 650 mg Q4H PRN GTB MILD PAIN 1-3; Start 03/17/19 at 21:30 Bisacodyl (Dulcolax Supp) 10 mg DAILY PRN [place] CONSTIPATION; Start 03/17/19 at 21:00 Chlorhexidine Gluconate (Peridex) 15 ml Q12H MM Last administered on 03/24/19 09:25; Admin Dose 15 ML; Start 03/17/19 at 21:00 Digoxin (Digoxin) 0.125 mg DAILY@13 PO Last administered on 03/22/19 13:17; Admin Dose 0.125 MG; Start 03/18/19 at 13:00 Docusate Sodium (Colace) 100 mg DAILY PO Last administered on 03/24/19 09:27; Admin Dose 100 MG; Start 03/18/19 at 09:00 Levetiracetam (Keppra Liquid) 250 mg Q12H GTB Last administered on 03/24/19 09:26; Admin Dose 250 MG; Start 03/17/19 at 21:00 Magnesium Hydroxide (Milk Of Mag) 30 ml DAILY PRN GTB CONSTIPATION; Start 03/17/19 at 21:00 Metoprolol Tartrate (Lopressor) 25 mg BID GTB Last administered on 03/24/19 09:34; Admin Dose 25 MG; Start 03/17/19 at 21:00 Lansoprazole (Prevacid) 30 mg DAILY@06 GTB Last administered on 03/24/19 06:43; Admin Dose 30 MG; Start 03/18/19 at 06:00 Epoetin Amor-epbx (RETACRIT(non-esrd)) 40,000 unit We@1700 SC Last administered on 03/19/19 17:25; Admin Dose 40,000 UNIT; Start 03/19/19 at 17:00 Ferric Sodium Gluconate Complex 125 mg/Sodium Chloride 110 ml @ 110 mls/hr DAILY@1300 IVPB Last administered on 03/23/19 14:46; Admin Dose 110 MLS/HR; Start 03/20/19 at 13:00; Stop 03/24/19 at 13:59 Multivit/Ca Carb/ B Cmplx/FA/Prenat (Renee-Antonio) 1 tab DAILY GTB Last administered on 03/24/19 09:27; Admin Dose 1 TAB; Start 03/21/19 at 09:00 Zinc Sulfate (Zinc Sulfate) 220 mg DAILY GTB Last administered on 03/24/19 09:27; Admin Dose 220 MG; Start 03/21/19 at 09:00 Collagenase (Santyl) 1 applic BID TOP Last administered on 03/24/19at 09:26; Admin Dose 1 APPLIC; Start 03/20/19 at 16:28 Vancomycin HCl (Vanco Iv Per Pharmacy) VANCOMYCIN PER PHARMACY PER PROTOCOL XX ; Start 03/23/19 at 06:30 Piperacillin Sod/ Tazobactam Sod 100 ml @ 200 mls/hr Q6 IVPB Last administered on 03/24/19at 06:43; Admin Dose 200 MLS/HR; Start 03/23/19 at 06:30 Vancomycin HCl 250 ml @ 125 mls/hr Q48H IVPB ; Start 03/25/19 at 08:00 Dextrose/Sodium Chloride 1,000 ml @ 75 mls/hr [id number] IV Last administered on 03/23/19at 20:44; Admin Dose 75 MLS/HR; Start 03/23/19 at 19:30 Acetylcysteine (Mucomyst) 2 ml Q6H RESP THERAPY NEB ; Start 03/24/19 at 11:00 Levalbuterol (Xopenex Hfa) 2 puff Q6H RESP THERAPY INH ; Start 03/24/19 at 14:00 IMER VARGAS March 24, 2019 13:51
[2019-03-24] MEDS: LEVALBUTEROL (HFA) 15 GM INHALER INH SCH ×2 (14:45→19:57)
[2019-03-24] MEDS: SOD FERRIC GLUC COMPLX 125 MG in SOD CHLORIDE 0.9% 100 ML IVPB SCH (15:02)
[2019-03-24] MEDS: DIGOXIN 0.125 MG TAB PO SCH (15:14)
--- NOTE | 2019-03-24 15:31 | CONS ---
Assessment/Plan Assessment/Plan Hospital Course (Demo Recall) Patient is noncommunicative lying comfortably in bed, no fevers overnight. WBC 8.6 platelets 323 neutrophils 74.7 BUN 27 creatinine 0.84 Indwelling: Trach, PEG, Damon Antimicrobials: Vancomycin, Zosyn Physical examination: Chronically ill-appearing elderly woman in no distress. Head atraumatic normocephalic neck is supple tracheostomy present chest rise symmetrical breath sounds diminished bases. Heart: S1-S2. Abdomen soft bowel sounds present. Assessment: 1. Sigmoid diverticulosis with abscess 2. Left lower lobe atelectasis 3. Chronic respiratory failure and dysphagia 4. Seizure disorder 5. Acute on chronic encephalopathy 6. Chronic kidney disease 7. Urinary tract infection as per urinalysis Plan: Clinically stable, order blood and urine cultures, continue antibiotics, pending surgical evaluation Consultation Date/Type/Reason Admit Date/Time March 17, 2019 at 14:33 Initial Consult Date 03/18/19 Type of Consult id Requesting Provider: JAYLEN LUGO MD Date/Time of Note DATE: 03/24/19 TIME: 15:31 Exam/Review of Systems Exam Vitals Vital Signs Date Temp Pulse Resp B/P (MAP) Pulse Ox O2 O2 Flow FiO2 Time Delivery Rate 03/24/19 64 12:44 03/24/19 97.5 20 127/58 99 Trach 11:48 (81) Collar 03/24/19 30 09:00 03/22/19 2.0 20:00 Intake and Output 03/23/19 03/23/19 03/24/19 1515:00 23:00 07:00 OutputOutput Total 400 ml BalanceBalance -400 ml Results Result Diagram: 03/24/19 0847 03/24/19 0542 Results 24hrs Laboratory Tests Test 03/23/19 17:21 03/24/19 05:42 03/24/19 08:47 Bedside Glucose 102 Sodium Level 139 Potassium Level 4.6 Chloride Level 111 H Carbon Dioxide Level 19 L Anion Gap 9 Blood Urea Nitrogen 27 H Creatinine 0.84 Est Glomerular Filtrat Rate mL/min Glucose Level 94 Calcium Level 8.5 White Blood Count 8.6 Red Blood Count 2.99 L Hemoglobin 9.2 L Hematocrit 30.6 L Mean Corpuscular Volume 102.3 H Mean Corpuscular Hemoglobin 30.8 Mean Corpuscular Hemoglobin Concent 30.1 L Red Cell Distribution Width 18.6 H Platelet Count 323 Mean Platelet Volume 9.2 Immature Granulocytes % 1.000 H Neutrophils % 74.7 Lymphocytes % 18.5 Monocytes % 4.3 Eosinophils % 1.2 Basophils % 0.3 Nucleated Red Blood Cells % 0.0 Immature Granulocytes # 0.090 H Neutrophils # 6.4 Lymphocytes # 1.6 Monocytes # 0.4 Eosinophils # 0.1 Basophils # 0.0 Nucleated Red Blood Cells # 0.0 Medications Medication Current Medications Acetaminophen (Tylenol Liquid) 650 mg Q4H PRN GTB MILD PAIN 1-3; Start 03/17/19 at 21:30 Bisacodyl (Dulcolax Supp) 10 mg DAILY PRN [place] CONSTIPATION; Start 03/17/19 at 21:00 Chlorhexidine Gluconate (Peridex) 15 ml Q12H MM Last administered on 03/24/19 09:25; Admin Dose 15 ML; Start 03/17/19 at 21:00 Digoxin (Digoxin) 0.125 mg DAILY@13 PO Last administered on 03/24/19 15:14; Admin Dose 0.125 MG; Start 03/18/19 at 13:00 Docusate Sodium (Colace) 100 mg DAILY PO Last administered on 03/24/19 09:27; Admin Dose 100 MG; Start 03/18/19 at 09:00 Levetiracetam (Keppra Liquid) 250 mg Q12H GTB Last administered on 03/24/19 09:26; Admin Dose 250 MG; Start 03/17/19 at 21:00 Magnesium Hydroxide (Milk Of Mag) 30 ml DAILY PRN GTB CONSTIPATION; Start 03/17/19 at 21:00 Metoprolol Tartrate (Lopressor) 25 mg BID GTB Last administered on 03/24/19 09:34; Admin Dose 25 MG; Start 03/17/19 at 21:00 Lansoprazole (Prevacid) 30 mg DAILY@06 GTB Last administered on 03/24/19 06:43; Admin Dose 30 MG; Start 03/18/19 at 06:00 Epoetin Amor-epbx (RETACRIT(non-esrd)) 40,000 unit We@1700 SC Last administered on 03/19/19 17:25; Admin Dose 40,000 UNIT; Start 03/19/19 at 17:00 Multivit/Ca Carb/ B Cmplx/FA/Prenat (Renee-Antonio) 1 tab DAILY GTB Last administered on 03/24/19 09:27; Admin Dose 1 TAB; Start 03/21/19 at 09:00 Zinc Sulfate (Zinc Sulfate) 220 mg DAILY GTB Last administered on 03/24/19 09:27; Admin Dose 220 MG; Start 03/21/19 at 09:00 Collagenase (Santyl) 1 applic BID TOP Last administered on 03/24/19 09:26; Admin Dose 1 APPLIC; Start 03/20/19 at 16:28 Vancomycin HCl (Vanco Iv Per Pharmacy) VANCOMYCIN PER PHARMACY PER PROTOCOL XX ; Start 03/23/19 at 06:30 Piperacillin Sod/ Tazobactam Sod 100 ml @ 200 mls/hr Q6 IVPB Last administered on 03/24/19 15:02; Admin Dose 200 MLS/HR; Start 03/23/19 at 06:30 Vancomycin HCl 250 ml @ 125 mls/hr Q48H IVPB ; Start 03/25/19 at 08:00 Dextrose/Sodium Chloride 1,000 ml @ 75 mls/hr [id number] IV Last administered on 03/23/19 20:44; Admin Dose 75 MLS/HR; Start 03/23/19 at 19:30 Acetylcysteine (Mucomyst) 2 ml Q6H RESP THERAPY NEB Last administered on 03/24/19 14:45; Admin Dose 2 ML; Start 03/24/19 at 11:00 Levalbuterol (Xopenex Hfa) 2 puff Q6H RESP THERAPY INH Last administered on 03/24/19 14:45; Admin Dose 2 PUFF; Start 03/24/19 at 14:00 DEBO UMANA NP March 24, 2019 15:31
[2019-03-25] VITALS (23 sets, daily range): BP systolic 102–137; BP diastolic 54–63; PULSE 57–79; RESP 18–24
[2019-03-25] MEDS: LEVALBUTEROL (HFA) 15 GM INHALER INH SCH ×4 (01:36→19:10)
[2019-03-25] MEDS: ACETYLCYSTEINE 20% 4 ML VIAL NEB SCH ×4 (01:44→19:10)
[2019-03-25] MEDS: LANSOPRAZOLE 30 MG CAP GTB SCH (06:15)
[2019-03-25] MEDS: PIPER-TAZO 3.375 GM IV (PMX) 100 ML IVPB SCH ×4 (06:16→23:46)
[2019-03-25] MEDS: DEXTROSE 5%-0.45% NACL 1,000 ML IV SCH (06:18)
--- NOTE | 2019-03-25 08:41 | CONS ---
Assessment/Plan Assessment/Plan Hospital Course (Demo Recall) 1. Anemia of chronic disease --per DR Kiser note "pt is noted to have a macrocytic anemia which is mostly likely 2/2 underlying myelodysplastic syndrome" 2. Chronic kidney disease. 3. Hypertension. 4. Paroxysmal atrial fibrillation. 5. Cerebrovascular accident. 6. Possible meningioma. 7. Vent dependent respiratory failure. 8. Dysphagia, status post G-tube. 9. S/P colonoscopy 03/20 -found severe diverticulosis of left side of colon with spasm and poor prep 10. Walled off diverticular perforation abscess - no free air, could be also fistula. CT abd 03/21: 1. Sigmoid diverticulosis with a focal area of abnormal wall thickening of the proximal sigmoid colon with an adjacent gas containing fluid collection measuring 3.1 x 3.2 x 8.5 cm extending along the left iliopsoas/iliacus muscles. This could represent peridiverticular abscess/contained perforation. No additional fluid collection is identified in the remainder of the abdomen. 2. Complete atelectasis of the left lower lobe. Query mucus plugging. Consider bronchoscopy for further evaluation. 3. Unchanged left adrenal nodule. 4. Cholelithiasis. 5. Splenomegaly. 6. Peg tube is in satisfactory position. 7. Multiple bilateral renal cysts. 8. Aortoiliac vascular calcifications with no aneurysmal dilatation. PLAN: Surgical consult to clear patient to restart tube feeds IR needs to aspirate abscess Hold Tube feeds until surgery clears pt Pt examined and plan of care discussed with Dr. Galdamez Consultation Date/Type/Reason Admit Date/Time March 17, 2019 at 14:33 Initial Consult Date 03/18/19 Requesting Provider: JAYLEN LUGO MD Date/Time of Note DATE: 03/25/19 TIME: 08:39 24 HR Interval Summary Free Text/Dictation No acute changes. TUBE CLEANER has gone up slightly Exam/Review of Systems Exam Vitals Vital Signs Date Temp Pulse Resp B/P (MAP) Pulse Ox O2 O2 Flow FiO2 Time Delivery Rate 03/25/19 30 05:18 03/25/19 60 20 99 05:17 03/25/19 99.0 107/54 04:44 (71) 03/24/19 Trach 15:54 Collar 03/22/19 2.0 20:00 Intake and Output 03/24/19 03/24/19 03/25/19 1515:00 23:00 07:00 IntakeIntake Total 200 ml 210 ml 1250 ml OutputOutput Total 400 ml BalanceBalance -200 ml 210 ml 1250 ml Respiratory: normal air movement Cardiovascular: regular rate and rhythm Gastrointestinal: soft, non-tender, bowel sounds Results Result Diagram: 03/24/19 0847 03/25/19 0550 Results 24hrs Laboratory Tests Test 03/24/19 08:47 03/25/19 05:50 White Blood Count 8.6 Red Blood Count 2.99 L Hemoglobin 9.2 L Hematocrit 30.6 L Mean Corpuscular Volume 102.3 H Mean Corpuscular Hemoglobin 30.8 Mean Corpuscular Hemoglobin Concent 30.1 L Red Cell Distribution Width 18.6 H Platelet Count 323 Mean Platelet Volume 9.2 Immature Granulocytes % 1.000 H Neutrophils % 74.7 Lymphocytes % 18.5 Monocytes % 4.3 Eosinophils % 1.2 Basophils % 0.3 Nucleated Red Blood Cells % 0.0 Immature Granulocytes # 0.090 H Neutrophils # 6.4 Lymphocytes # 1.6 Monocytes # 0.4 Eosinophils # 0.1 Basophils # 0.0 Nucleated Red Blood Cells # 0.0 Sodium Level 140 Potassium Level 3.8 Chloride Level 113 H Carbon Dioxide Level 19 L Anion Gap 8 Blood Urea Nitrogen 22 H Creatinine 1.05 H Est Glomerular Filtrat Rate mL/min Glucose Level 97 Calcium Level 8.5 Total Bilirubin 0.4 Direct Bilirubin 0.00 Indirect Bilirubin 0.4 Aspartate Amino Transf (AST/SGOT) 13 L Alanine Aminotransferase (ALT/SGPT) 7 L Alkaline Phosphatase 89 Total Protein 5.6 L Albumin 2.5 L Globulin 3.10 Albumin/Globulin Ratio 0.80 Medications Medication Current Medications Acetaminophen (Tylenol Liquid) 650 mg Q4H PRN GTB MILD PAIN 1-3; Start 03/17/19 at 21:30 Bisacodyl (Dulcolax Supp) 10 mg DAILY PRN [place] CONSTIPATION; Start 03/17/19 at 2 1:00 Chlorhexidine Gluconate (Peridex) 15 ml Q12H MM Last administered on 03/24/19at 21:31; Admin Dose 15 ML; Start 03/17/19 at 21:00 Digoxin (Digoxin) 0.125 mg DAILY@13 PO Last administered on 03/24/19at 15:14; Admin Dose 0.125 MG; Start 03/18/19 at 13:00 Docusate Sodium (Colace) 100 mg DAILY PO Last administered on 03/24/19 09:27; Admin Dose 100 MG; Start 03/18/19 at 09:00 Levetiracetam (Keppra Liquid) 250 mg Q12H GTB Last administered on 03/24/19 21:29; Admin Dose 250 MG; Start 03/17/19 at 21:00 Magnesium Hydroxide (Milk Of Mag) 30 ml DAILY PRN GTB CONSTIPATION; Start 03/17/19 at 21:00 Metoprolol Tartrate (Lopressor) 25 mg BID GTB Last administered on 03/24/19 21:31; Admin Dose 25 MG; Start 03/17/19 at 21:00 Lansoprazole (Prevacid) 30 mg DAILY@06 GTB Last administered on 03/25/19 06: 15; Admin Dose 30 MG; Start 03/18/19 at 06:00 Epoetin Amor-epbx (RETACRIT(non-esrd)) 40,000 unit We@1700 SC Last administered on 03/19/19 17:25; Admin Dose 40,000 UNIT; Start 03/19/19 at 17:00 Multivit/Ca Carb/ B Cmplx/FA/Prenat (Renee-Antonio) 1 tab DAILY GTB Last administered on 03/24/19 09:27; Admin Dose 1 TAB; Start 03/21/19 at 09:00 Zinc Sulfate (Zinc Sulfate) 220 mg DAILY GTB Last administered on 03/24/19 09:27; Admin Dose 220 MG; Start 03/21/19 at 09:00 Collagenase (Santyl) 1 applic BID TOP Last administered on 03/24/19 21:31; Admin Dose 1 APPLIC; Start 03/20/19 at 16:28 Vancomycin HCl (Vanco Iv Per Pharmacy) VANCOMYCIN PER PHARMACY PER PROTOCOL XX ; Start 03/23/19 at 06:30 Piperacillin Sod/ Tazobactam Sod 100 ml @ 200 mls/hr Q6 IVPB Last administered on 03/25/19 06:16; Admin Dose 200 MLS/HR; Start 03/23/19 at 06:30 Vancomycin HCl 250 ml @ 125 mls/hr Q48H IVPB ; Start 03/25/19 at 08:00 Dextrose/Sodium Chloride 1,000 ml @ 75 mls/hr [id number] IV Last administered on 03/25/19 06:18; Admin Dose 75 MLS/HR; Start 03/23/19 at 19:30 Acetylcysteine (Mucomyst) 2 ml Q6H RESP THERAPY NEB Last administered on 03/25/19at 01:44; Admin Dose 2 ML; Start 03/24/19 at 11:00 Levalbuterol (Xopenex Hfa) 2 puff Q6H RESP THERAPY INH Last administered on 03/25/19at 01:36; Admin Dose 2 PUFF; Start 03/24/19 at 14:00 TEODORA DAVILA March 25, 2019 08:41
--- NOTE | 2019-03-25 08:48 | PN ---
DATE: 03/25/2019 SUBJECTIVE: The patient is stable. No events overnight. OBJECTIVE: VITAL SIGNS: Blood pressure is 107/54, respirations 18, pulse 64, temperature 99.0. HEENT: Head is normocephalic. NECK: Supple. HEART: Regular rate. LUNGS: Show diminished breath sounds at the base. ABDOMEN: Soft, nontender to palpation without rebound or guarding. EXTREMITIES: Negative for clubbing, cyanosis, no edema. DERMATOLOGIC: No rashes. MUSCULOSKELETAL: No joint effusion. NEUROLOGIC: No change in exam. MEDICATIONS: Reviewed. LABORATORY DATA: Reviewed. ASSESSMENT AND PLAN: 1. Chronic kidney disease, stage III. The patient's renal function is stable. Continue current rosibel atment plan, supportive care, renally dose all medications. 2. Anemia. Continue to monitor hemoglobin and hematocrit levels. 3. Mineral bone disorder, monitor calcium and phosphorus levels. 4. Hypertension. Continue current blood pressure regimen. 5. Sigmoid diverticulosis with abscess. Continue current medical management, continue antibiotic th erapy. The patient is pending surgical evaluation. 6. Ventilator-dependent respiratory failure. Vent settings have been reviewed. Continue to monitor . Follow up with pulmonary. 7. Dysphagia. Continue tube feeding. 8. Chronic encephalopathy. No change. 9. Seizure disorder. Dictated By: RAJINDER ATWOOD DO NR/NTS Conf#: [id number] DID#: [id number] CC: MENDEL FIELDS MD; JAYLEN LUGO MD;*EndCC*
--- NOTE | 2019-03-25 08:59 | CONS ---
Consult Date/Type/Reason Admit Date/Time March 17, 2019 at 14:33 Initial Consult Date 03/18/19 Requesting Provider: JAYLEN LUGO MD Date/Time of Note DATE: 03/25/19 TIME: 08:57 Subjective NO acute events - pt stable - non-verbal now - stable resp effort - will monitor clinically now. ROS: No fever, no chills, no nausea, no vomiting, no diarrhea/constipation - per nurse Objective Vitals Vital Signs Date Temp Pulse Resp B/P (MAP) Pulse Ox O2 O2 Flow FiO2 Time Delivery Rate 03/25/19 30 05:18 03/25/19 60 20 99 05:17 03/25/19 99.0 107/54 04:44 (71) 03/24/19 Trach 15:54 Collar 03/22/19 2.0 20:00 Intake and Output 03/24/19 03/24/19 03/25/19 1515:00 23:00 07:00 IntakeIntake Total 200 ml 210 ml 1250 ml OutputOutput Total 400 ml BalanceBalance -200 ml 210 ml 1250 ml Exam General: WN/WD/NAD, AOx 0 HEENT: Unicetric/atraumatic/EOMI (does not follow commands) NECK: trach Lymph: no lymphadenopathy HEART: regular with no S3, II/ systolic murmur at apex LUNGS: Coarse sounds ABD: soft, NT, ND, +BS : Intact Neuro: non focal SKIN: chronic changes EXT: trace edema Results/Medications Result Diagram: 03/24/19 0847 03/25/19 0550 Results 24 hrs Laboratory Tests Test 03/25/19 05:50 Sodium Level 140 Potassium Level 3.8 Chloride Level 113 H Carbon Dioxide Level 19 L Anion Gap 8 Blood Urea Nitrogen 22 H Creatinine 1.05 H Est Glomerular Filtrat Rate mL/min Glucose Level 97 Calcium Level 8.5 Total Bilirubin 0.4 Direct Bilirubin 0.00 Indirect Bilirubin 0.4 Aspartate Amino Transf (AST/SGOT) 13 L Alanine Aminotransferase (ALT/SGPT) 7 L Alkaline Phosphatase 89 Total Protein 5.6 L Albumin 2.5 L Globulin 3.10 Albumin/Globulin Ratio 0.80 Home Meds Reported Medications Levalbuterol Hcl* (Xopenex*) 1.25 Mg/0.5 Ml Vial.neb, 1.25 MG INHALATION Q6H for WHEEZING AND SOB, EA 03/17/19 Levalbuterol Hcl* (Levalbuterol Hcl*) 1.25 Mg/0.5 Ml Vial.neb, 1.25 MG INHALATIO N Q3H, VIAL 03/17/19 Ascorbic Acid (Vitamin C) 500 Mg Tab, 500 MG GTB DAILY, TAB 03/17/19 Cran/Vitc/Mannose/Inulin/Brom (Uti-Stat Liquid) 3,875 Mg/30 Ml Liquid, 30 ML GTB BID 03/17/19 Acetaminophen* (Acetaminophen*) 500 MG Extra Strength Tablet, 1000 MG PO Q4H PRN for NEEDED, TAB UNTIL 04/16/19 03/17/19 Acetaminophen* (Tylenol*) 325 Mg Tablet, 650 MG GTB BID PRN for PAIN MGT, TAB 03/17/19 Acetaminophen* (Tylenol*) 325 Mg Tablet, 650 MG GTB Q4H PRN for MILD PAIN LEVEL 1-3, TAB AND FEVER 101F, END DATE 04/16/19 03/17/19 Acetaminophen* (Tylenol*) 325 Mg Tablet, 650 MG GTB NEEDED PRN for TRACH TUBE CHANGE, TAB 03/17/19 Epoetin Amor (Procrit) 4,000 Unit/1 Ml Vial, 4000 UNIT IJ Q WED, VIAL 03/17/19 Amino Acids/Protein Hydrolys (PRO-STAT LIQUID) 30 Ml Liquid.pkt, 30 ML GTB DAILY 03/17/19 Multivitamins* (Theragran*) 1 Tab Tab, 1 TAB GTB DAILY, TAB 03/17/19 Magnesium Hydroxide* (Milk Of Magnesia*) 400 Mg/5 Ml Oral.susp, 30 ML GTB NEEDED, ML END DATE 04/16/19 03/17/19 Metoprolol Tartrate* (Lopressor*) 25 Mg Tab, 25 MG GTB BID, #60 TAB HOLD IF SBP<110 OR HR<60 03/17/19 Levetiracetam* (Levetiracetam*) 500 Mg/5 Ml Solution, 2.5 ML PO Q12H, ML 03/17/19 Mineral Oil* (Fleet* Mineral Oil Enema) Unknown Strength Oil, 1 APPLIC [place] NEEDED PRN for CONSTIPATION, ENEMA 03/17/19 Bisacodyl (Dulcolax) 10 Mg Supp.rect, 10 MG RC NEEDED, SUPP.RECT UNTIL 04/16/19 03/17/19 Digoxin* (Digox*) 125 Mcg Tablet, 0.125 MG GTB DAILY PRN for HOLD IF HR<60, TAB 03/17/19 Docusate Sodium* (Colace*) 100 Mg Capsule, 100 MG GTB DAILY, #30 CAP 03/17/19 Chlorhexidine Gluconate (Peridex) 473 Ml Mouthwash, 15 ML MM Q12H, BOTTLE 03/17/19 Medications Current Medications Acetaminophen (Tylenol Liquid) 650 mg Q4H PRN GTB MILD PAIN 1-3; Start 03/17/19 at 21:30 Bisacodyl (Dulcolax Supp) 10 mg DAILY PRN [place] CONSTIPATION; Start 03/17/19 at 21:00 Chlorhexidine Gluconate (Peridex) 15 ml Q12H MM Last administered on 03/24/19 21:31; Admin Dose 15 ML; Start 03/17/19 at 21:00 Digoxin (Digoxin) 0.125 mg DAILY@13 PO Last administered on 03/24/19 15:14; Admin Dose 0.125 MG; Start 03/18/19 at 13:00 Docusate Sodium (Colace) 100 mg DAILY PO Last administered on 03/24/19 09:27; Admin Dose 100 MG; Start 03/18/19 at 09:00 Levetiracetam (Keppra Liquid) 250 mg Q12H GTB Last administered on 03/24/19 21:29; Admin Dose 250 MG; Start 03/17/19 at 21:00 Magnesium Hydroxide (Milk Of Mag) 30 ml DAILY PRN GTB CONSTIPATION; Start 03/17/19 at 21:00 Metoprolol Tartrate (Lopressor) 25 mg BID GTB Last administered on 03/24/19 21:31; Admin Dose 25 MG; Start 03/17/19 at 21:00 Lansoprazole (Prevacid) 30 mg DAILY@06 GTB Last administered on 03/25/19 06:15; Admin Dose 30 MG; Start 03/18/19 at 06:00 Epoetin Amor-epbx (RETACRIT(non-esrd)) 40,000 unit We@1700 SC Last administered on 03/19/19 17:25; Admin Dose 40,000 UNIT; Start 03/19/19 at 17:00 Multivit/Ca Carb/ B Cmplx/FA/Prenat (Renee-Antonio) 1 tab DAILY GTB Last administered on 03/24/19 09:27; Admin Dose 1 TAB; Start 03/21/19 at 09:00 Zinc Sulfate (Zinc Sulfate) 220 mg DAILY GTB Last administered on 03/24/19 09:27; Admin Dose 220 MG; Start 03/21/19 at 09:00 Collagenase (Santyl) 1 applic BID TOP Last administered on 03/24/19 21:31; Admin Dose 1 APPLIC; Start 03/20/19 at 16:28 Vancomycin HCl (Vanco Iv Per Pharmacy) VANCOMYCIN PER PHARMACY PER PROTOCOL XX ; Start 03/23/19 at 06:30 Piperacillin Sod/ Tazobactam Sod 100 ml @ 200 mls/hr Q6 IVPB Last administered on 03/25/19 06:16; Admin Dose 200 MLS/HR; Start 03/23/19 at 06:30 Vancomycin HCl 250 ml @ 125 mls/hr Q48H IVPB ; Start 03/25/19 at 08:00 Dextrose/Sodium Chloride 1,000 ml @ 75 mls/hr [id number] IV Last administered on 03/25/19 06:18; Admin Dose 75 MLS/HR; Start 03/23/19 at 19:30 Acetylcysteine (Mucomyst) 2 ml Q6H RESP THERAPY NEB Last administered on 03/25/19at 08:54; Admin Dose 2 ML; Start 03/24/19 at 11:00 Levalbuterol (Xopenex Hfa) 2 puff Q6H RESP THERAPY INH Last administered on 03/25/19 08:53; Admin Dose 2 PUFF; Start 03/24/19 at 14:00 Assessment/Plan Hospital Course (Demo Recall) 1. Premature ventricular contractions. Premature ventricular contractions are not confirmed based on my interpretation on telemetry strip. We will monitor clinically now. No new arrhythmia now. NO focal ectopy on tele. Better now - will follow clinically. 2. Supraventricular tachycardia, possibly atrial tachycardia versus a short run of atrial tachycardia. No particular treatment is required. Continue to treat the patient with a beta-jude now. She is also on digoxin which is reasonable. Rate controlled now. In sinus now - rachele at times - no pauses. On meds - better. 3. Hypertension. Blood pressure is well optimized now, which was actually in the low side. I think it is reasonable to hydrate as needed. BP stable. Stable overall. 4. Respiratory failure. Continue respiratory therapy. The patient is on the ventilator. 5. Chronic malnourished state. Continue feedings per PEG. At goal. 6. Anemia. Hemoglobin is fairly stable now. No evidence of bleeding. We will monitor clinically. H/H stable now. NO bleeding. KINGSTON HEADR MD March 25, 2019 08:59
[2019-03-25] MEDS: METOPROLOL 25 MG TAB GTB SCH ×2 (09:00→21:50)
[2019-03-25] MEDS: VANCOMYCIN 1 GM 250 ML IVPB SCH (09:53)
[2019-03-25] MEDS: LEVETIRACETAM (100 MG/ML) 5ML CUP GTB SCH ×2 (09:55→21:49)
[2019-03-25] MEDS: MULTIVIT/CA CARB/B CMPLX/FA TAB GTB SCH (09:56)
[2019-03-25] MEDS: CHLORHEXIDINE GLUCONATE 15 ML UD CUP MM SCH ×2 (09:56→21:50)
[2019-03-25] MEDS: ZINC SULFATE 220 MG CAP GTB SCH (09:56)
[2019-03-25] MEDS: DOCUSATE SODIUM 100 MG CAP PO SCH (09:56)
[2019-03-25] MEDS: COLLAGENASE 5 GM (UD JAR) TOP SCH ×2 (09:57→21:50)
[2019-03-25] MEDS: DIGOXIN 0.125 MG TAB PO SCH (12:30)
--- NOTE | 2019-03-25 14:36 | CONS ---
Assessment/Plan Assessment/Plan Hospital Course (Demo Recall) 1. Sigmoid diverticulosis with a focal area of abnormal wall thickening of the proximal sigmoid colon with an adjacent gas containing fluid collection measuring 3.1 x 3.2 x 8.5 cm extending along the left iliopsoas/iliacus muscles. This could represent peridiverticular abscess/contained perforation. Not drainable per IR. Family does not want aggressive measures (OR) -abx -supportive -nutrition ok -obs 2. anemia: No overt bleed noted -Monitor and transfuse as needed -Per hematology 3. VDRF: -Pulmonary toilet -Vent management per pulmonary 4. CKD -Limit nephrotoxic meds -Renally dose meds -Per renal 5. Atrial fibrillation history -Rate control 6. Heart failure: -Cardiac optimization 7. Dysphagia with PEG placement -Continue tube feeds with aspiration precautions Thank you. Patient seen and examined in collaboration with Dr. Harry Mario. Consultation Date/Type/Reason Admit Date/Time March 17, 2019 at 14:33 Type of Consult Surgical Reason for Consultation Abscess Requesting Provider: IMER VARGAS Date/Time of Note DATE: 03/25/19 TIME: 14:36 Hx of Present Illness Tawana Dowd is a 73-year-old woman with multiple comorbidities who was initially admitted to the hospital for anemia found at outside facility. She is currently being evaluated and managed by GI as well as hematology. No reports of obvious bleeding, fevers, congested cough, labored breathing, hematemesis, hematochezia, melena, seizure, rash, skin changes. While in-house, CT abdomen was performed which showed diverticular abscess extending along the left iliopsoas/iliac is muscle representing abscess/contained perforation which is not drainable by IR. General surgery was asked to evaluate. 12 point review of systems was reviewed and is negative except for as stated in HPI. Past Medical History COPD Chronic respiratory failure, vent dependent CVA Proximal atrial fibrillation Seizure disorder Anemia of chronic disease Congestive heart failure Pulmonary fibrosis Dysphagia status post PEG placement Home Meds Reported Medications Levalbuterol Hcl* (Xopenex*) 1.25 Mg/0.5 Ml Vial.neb, 1.25 MG INHALATION Q6H for WHEEZING AND SOB, EA 03/17/19 Levalbuterol Hcl* (Levalbuterol Hcl*) 1.25 Mg/0.5 Ml Vial.neb, 1.25 MG INHALATION Q3H, VIAL 03/17/19 Ascorbic Acid (Vitamin C) 500 Mg Tab, 500 MG GTB DAILY, TAB 03/17/19 Cran/Vitc/Mannose/Inulin/Brom (Uti-Stat Liquid) 3,875 Mg/30 Ml Liquid, 30 ML GTB BID 03/17/19 Acetaminophen* (Acetaminophen*) 500 MG Extra Strength Tablet, 1000 MG PO Q4H PRN for NEEDED, TAB UNTIL 04/16/19 03/17/19 Acetaminophen* (Tylenol*) 325 Mg Tablet, 650 MG GTB BID PRN for PAIN MGT, TAB 03/17/19 Acetaminophen* (Tylenol*) 325 Mg Tablet, 650 MG GTB Q4H PRN for MILD PAIN LEVEL 1-3, TAB AND FEVER 101F, END DATE 04/16/19 03/17/19 Acetaminophen* (Tylenol*) 325 Mg Tablet, 650 MG GTB NEEDED PRN for TRACH TUBE CHANGE, TAB 03/17/19 Epoetin Amor (Procrit) 4,000 Unit/1 Ml Vial, 4000 UNIT IJ Q WED, VIAL 03/17/19 Amino Acids/Protein Hydrolys (PRO-STAT LIQUID) 30 Ml Liquid.pkt, 30 ML GTB DAILY 03/17/19 Multivitamins* (Theragran*) 1 Tab Tab, 1 TAB GTB DAILY, TAB 03/17/19 Magnesium Hydroxide* (Milk Of Magnesia*) 400 Mg/5 Ml Oral.susp, 30 ML GTB NEEDED, ML END DATE 04/16/19 03/17/19 Metoprolol Tartrate* (Lopressor*) 25 Mg Tab, 25 MG GTB BID, #60 TAB HOLD IF SBP<110 OR HR<60 03/17/19 Levetiracetam* (Levetiracetam*) 500 Mg/5 Ml Solution, 2.5 ML PO Q12H, ML 03/17/19 Mineral Oil* (Fleet* Mineral Oil Enema) Unknown Strength Oil, 1 APPLIC [place] NEEDED PRN for CONSTIPATION, ENEMA 03/17/19 Bisacodyl (Dulcolax) 10 Mg Supp.rect, 10 MG RC NEEDED, SUPP.RECT UNTIL 04/16/19 03/17/19 Digoxin* (Digox*) 125 Mcg Tablet, 0.125 MG GTB DAILY PRN for HOLD IF HR<60, TAB 03/17/19 Docusate Sodium* (Colace*) 100 Mg Capsule, 100 MG GTB DAILY, #30 CAP 03/17/19 Chlorhexidine Gluconate (Peridex) 473 Ml Mouthwash, 15 ML MM Q12H, BOTTLE 03/17/19 Medications Current Medications Acetaminophen (Tylenol Liquid) 650 mg Q4H PRN GTB MILD PAIN 1-3; Start 03/17/19 at 21:30 Bisacodyl (Dulcolax Supp) 10 mg DAILY PRN [place] CONSTIPATION; Start 03/17/19 at 21:00 Chlorhexidine Gluconate (Peridex) 15 ml Q12H MM Last administered on 03/25/19 09:56; Admin Dose 15 ML; Start 03/17/19 at 21:00 Digoxin (Digoxin) 0.125 mg DAILY@13 PO Last administered on 03/24/19 15:14; Admin Dose 0.125 MG; Start 03/18/19 at 13:00 Docusate Sodium (Colace) 100 mg DAILY PO Last administered on 03/25/19 09:56; Admin Dose 100 MG; Start 03/18/19 at 09:00 Levetiracetam (Keppra Liquid) 250 mg Q12H GTB Last administered on 03/25/19 09:55; Admin Dose 250 MG; Start 03/17/19 at 21:00 Magnesium Hydroxide (Milk Of Mag) 30 ml DAILY PRN GTB CONSTIPATION; Start 03/17/19 at 21:00 Metoprolol Tartrate (Lopressor) 25 mg BID GTB Last administered on 03/25/19at 09:00; Admin Dose 25 MG; Start 03/17/19 at 21:00 Lansoprazole (Prevacid) 30 mg DAILY@06 GTB Last administered on 03/25/19 06:15; Admin Dose 30 MG; Start 03/18/19 at 06:00 Epoetin Amor-epbx (RETACRIT(non-esrd)) 40,000 unit We@1700 SC Last administered on 03/19/19at 17:25; Admin Dose 40,000 UNIT; Start 03/19/19 at 17:00 Multivit/Ca Carb/ B Cmplx/FA/Prenat (Renee-Antonio) 1 tab DAILY GTB Last administered on 03/25/19 09:56; Admin Dose 1 TAB; Start 03/21/19 at 09:00 Zinc Sulfate (Zinc Sulfate) 220 mg DAILY GTB Last administered on 03/25/19 09:56; Admin Dose 220 MG; Start 03/21/19 at 09:00 Collagenase (Santyl) 1 applic BID TOP Last administered on 03/25/19 09:57; Admin Dose 1 APPLIC; Start 03/20/19 at 16:28 Vancomycin HCl (Vanco Iv Per Pharmacy) VANCOMYCIN PER PHARMACY PER PROTOCOL XX ; Start 03/23/19 at 06:30 Piperacillin Sod/ Tazobactam Sod 100 ml @ 200 mls/hr Q6 IVPB Last administered on 03/25/19 12:42; Admin Dose 200 MLS/HR; Start 03/23/19 at 06:30 Vancomycin HCl 250 ml @ 125 mls/hr Q48H IVPB Last administered on 03/25/19 09:53; Admin Dose 125 MLS/HR; Start 03/25/19 at 08:00 Dextrose/Sodium Chloride 1,000 ml @ 75 mls/hr [id number] IV Last administered on 03/25/19 06:18; Admin Dose 75 MLS/HR; Start 03/23/19 at 19:30 Acetylcysteine (Mucomyst) 2 ml Q6H RESP THERAPY NEB Last administered on 03/25/19 08:54; Admin Dose 2 ML; Start 03/24/19 at 11:00 Levalbuterol (Xopenex Hfa) 2 puff Q6H RESP THERAPY INH Last administered on 03/25/19 14:35; Admin Dose 2 PUFF; Start 03/24/19 at 14:00 Allergies: Coded Allergies: No Known Allergy (Unverified , 03/17/19) Past Surgical History As above Past Surgical Hx: other Family History Significant Family History: no pertinent family hx Social History Alcohol Use: none Smoking Status: Never smoker Drug Use: none Exam/Review of Systems Exam Vitals Vital Signs Date Temp Pulse Resp B/P (MAP) Pulse Ox O2 O2 Flow FiO2 Time Delivery Rate 03/25/19 63 20 98 30 13:20 03/25/19 98.1 136/63 10:56 (87) 03/24/19 Trach 15:54 Collar 03/22/19 2.0 20:00 Intake and Output 03/24/19 03/24/19 03/25/19 1515:00 23:00 07:00 IntakeIntake Total 200 ml 210 ml 1250 ml OutputOutput Total 400 ml BalanceBalance -200 ml 210 ml 1250 ml Constitutional: alert; No oriented, No distress Psych: nl mood/affect Head: normocephalic, atraumatic Eyes: nl conjunctiva, EOMI, nl lids, nl sclera ENMT: nl external ears & nose, nl lips & teeth, mucosa pink and moist Neck: supple, non-tender, other (Tracheostomy) Respiratory: normal air movement, other (Vent); No congested cough Cardiovascular: regular rate and rhythm Gastrointestinal: soft, non-tender, other (PEG); No distended Genitourinary - Female: nl external genitalia Musculoskeletal: nl extremities to inspection, nl gait and stance Extremities: normal pulses; No edema Neurological: No nl mental status, No nl speech (Nonverbal, noncommunicative), No nl strength, No focal weakness Skin: No rash or lesions Results Result Diagram: 03/24/19 0847 03/25/19 0550 Results 24hrs Laboratory Tests Test 03/25/19 05:50 Sodium Level 140 Potassium Level 3.8 Chloride Level 113 H Carbon Dioxide Level 19 L Anion Gap 8 Blood Urea Nitrogen 22 H Creatinine 1.05 H Est Glomerular Filtrat Rate mL/min Glucose Level 97 Calcium Level 8.5 Total Bilirubin 0.4 Direct Bilirubin 0.00 Indirect Bilirubin 0.4 Aspartate Amino Transf (AST/SGOT) 13 L Alanine Aminotransferase (ALT/SGPT) 7 L Alkaline Phosphatase 89 Total Protein 5.6 L Albumin 2.5 L Globulin 3.10 Albumin/Globulin Ratio 0.80 Medications Medication Current Medications Acetaminophen (Tylenol Liquid) 650 mg Q4H PRN GTB MILD PAIN 1-3; Start 03/17/19 at 21:30 Bisacodyl (Dulcolax Supp) 10 mg DAILY PRN [place] CONSTIPATION; Start 03/17/19 at 21:00 Chlorhexidine Gluconate (Peridex) 15 ml Q12H MM Last administered on 03/25/19at 09:56; Admin Dose 15 ML; Start 03/17/19 at 21:00 Digoxin (Digoxin) 0.125 mg DAILY@13 PO Last administered on 03/24/19 15:14; Admin Dose 0.125 MG; Start 03/18/19 at 13:00 Docusate Sodium (Colace) 100 mg DAILY PO Last administered on 03/25/19 09:56; Admin Dose 100 MG; Start 03/18/19 at 09:00 Levetiracetam (Keppra Liquid) 250 mg Q12H GTB Last administered on 03/25/19 09:55; Admin Dose 250 MG; Start 03/17/19 at 21:00 Magnesium Hydroxide (Milk Of Mag) 30 ml DAILY PRN GTB CONSTIPATION; Start 03/17/19 at 21:00 Metoprolol Tartrate (Lopressor) 25 mg BID GTB Last administered on 03/25/19 09:00; Admin Dose 25 MG; Start 03/17/19 at 21:00 Lansoprazole (Prevacid) 30 mg DAILY@06 GTB Last administered on 03/25/19 06:15; Admin Dose 30 MG; Start 03/18/19 at 06:00 Epoetin Amor-epbx (RETACRIT(non-esrd)) 40,000 unit We@1700 SC Last administered on 03/19/19 17:25; Admin Dose 40,000 UNIT; Start 03/19/19 at 17:00 Multivit/Ca Carb/ B Cmplx/FA/Prenat (Renee-Antonio) 1 tab DAILY GTB Last administered on 03/25/19 09:56; Admin Dose 1 TAB; Start 03/21/19 at 09:00 Zinc Sulfate (Zinc Sulfate) 220 mg DAILY GTB Last administered on 03/25/19 09:56; Admin Dose 220 MG; Start 03/21/19 at 09:00 Collagenase (Santyl) 1 applic BID TOP Last administered on 03/25/19 09:57; Admin Dose 1 APPLIC; Start 03/20/19 at 16:28 Vancomycin HCl (Vanco Iv Per Pharmacy) VANCOMYCIN PER PHARMACY PER PROTOCOL XX ; Start 03/23/19 at 06:30 Piperacillin Sod/ Tazobactam Sod 100 ml @ 200 mls/hr Q6 IVPB Last administered on 03/25/19 12:42; Admin Dose 200 MLS/HR; Start 03/23/19 at 06:30 Vancomycin HCl 250 ml @ 125 mls/hr Q48H IVPB Last administered on 03/25/19 09:53; Admin Dose 125 MLS/HR; Start 03/25/19 at 08:00 Dextrose/Sodium Chloride 1,000 ml @ 75 mls/hr [id number] IV Last administered on 03/25/19 06:18; Admin Dose 75 MLS/HR; Start 03/23/19 at 19:30 Acetylcysteine (Mucomyst) 2 ml Q6H RESP THERAPY NEB Last administered on 03/25/19at 08:54; Admin Dose 2 ML; Start 03/24/19 at 11:00 Levalbuterol (Xopenex Hfa) 2 puff Q6H RESP THERAPY INH Last administered on 03/25/19 14:35; Admin Dose 2 PUFF; Start 03/24/19 at 14:00 EULA HICKMAN NP March 25, 2019 14:36
--- NOTE | 2019-03-25 14:53 | CONS ---
Consultation Date/Type/Reason Admit Date/Time March 17, 2019 at 14:33 Date/Time of Note DATE: 03/25/19 TIME: 14:53 Past Medical History Home Meds Reported Medications Levalbuterol Hcl* (Xopenex*) 1.25 Mg/0.5 Ml Vial.neb, 1.25 MG INHALATION Q6H for WHEEZING AND SOB, EA 03/17/19 Levalbuterol Hcl* (Levalbuterol Hcl*) 1.25 Mg/0.5 Ml Vial.neb, 1.25 MG INHALATION Q3H, VIAL 03/17/19 Ascorbic Acid (Vitamin C) 500 Mg Tab, 500 MG GTB DAILY, TAB 03/17/19 Cran/Vitc/Mannose/Inulin/Brom (Uti-Stat Liquid) 3,875 Mg/30 Ml Liquid, 30 ML GTB BID 03/17/19 Acetaminophen* (Acetaminophen*) 500 MG Extra Strength Tablet, 1000 MG PO Q4H PRN for NEEDED, TAB UNTIL 04/16/19 03/17/19 Acetaminophen* (Tylenol*) 325 Mg Tablet, 650 MG GTB BID PRN for PAIN MGT, TAB 03/17/19 Acetaminophen* (Tylenol*) 325 Mg Tablet, 650 MG GTB Q4H PRN for MILD PAIN LEVEL 1-3, TAB AND FEVER 101F, END DATE 04/16/19 03/17/19 Acetaminophen* (Tylenol*) 325 Mg Tablet, 650 MG GTB NEEDED PRN for TRACH TUBE CHANGE, TAB 03/17/19 Epoetin Amor (Procrit) 4,000 Unit/1 Ml Vial, 4000 UNIT IJ Q WED, VIAL 03/17/19 Amino Acids/Protein Hydrolys (PRO-STAT LIQUID) 30 Ml Liquid.pkt, 30 ML GTB DAILY 03/17/19 Multivitamins* (Theragran*) 1 Tab Tab, 1 TAB GTB DAILY, TAB 03/17/19 Magnesium Hydroxide* (Milk Of Magnesia*) 400 Mg/5 Ml Oral.susp, 30 ML GTB NEEDED, ML END DATE 04/16/19 03/17/19 Metoprolol Tartrate* (Lopressor*) 25 Mg Tab, 25 MG GTB BID, #60 TAB HOLD IF SBP<110 OR HR<60 03/17/19 Levetiracetam* (Levetiracetam*) 500 Mg/5 Ml Solution, 2.5 ML PO Q12H, ML 03/17/19 Mineral Oil* (Fleet* Mineral Oil Enema) Unknown Strength Oil, 1 APPLIC NH NEEDED PRN for CONSTIPATION, ENEMA 03/17/19 Bisacodyl (Dulcolax) 10 Mg Supp.rect, 10 MG RC NEEDED, SUPP.RECT UNTIL 04/16/19 03/17/19 Digoxin* (Digox*) 125 Mcg Tablet, 0.125 MG GTB DAILY PRN for HOLD IF HR<60, TAB 03/17/19 Docusate Sodium* (Colace*) 100 Mg Capsule, 100 MG GTB DAILY, #30 CAP 03/17/19 Chlorhexidine Gluconate (Peridex) 473 Ml Mouthwash, 15 ML MM Q12H, BOTTLE 03/17/19 Medications Current Medications Acetaminophen (Tylenol Liquid) 650 mg Q4H PRN GTB MILD PAIN 1-3; Start 03/17/19 at 21:30 Bisacodyl (Dulcolax Supp) 10 mg DAILY PRN [place] CONSTIPATION; Start 03/17/19 at 21:00 Chlorhexidine Gluconate (Peridex) 15 ml Q12H MM Last administered on 03/25/19at 09:56; Admin Dose 15 ML; Start 03/17/19 at 21:00 Digoxin (Digoxin) 0.125 mg DAILY@13 PO Last administered on 03/24/19at 15:14; Admin Dose 0.125 MG; Start 03/18/19 at 13:00 Docusate Sodium (Colace) 100 mg DAILY PO Last administered on 03/25/19at 09:56; Admin Dose 100 MG; Start 03/18/19 at 09:00 Levetiracetam (Keppra Liquid) 250 mg Q12H GTB Last administered on 03/25/19at 09:55; Admin Dose 250 MG; Start 03/17/19 at 21:00 Magnesium Hydroxide (Milk Of Mag) 30 ml DAILY PRN GTB CONSTIPATION; Start 03/17/19 at 21:00 Metoprolol Tartrate (Lopressor) 25 mg BID GTB Last administered on 03/25/19at 09:00; Admin Dose 25 MG; Start 03/17/19 at 21:00 Lansoprazole (Prevacid) 30 mg DAILY@06 GTB Last administered on 03/25/19 06:15; Admin Dose 30 MG; Start 03/18/19 at 06:00 Epoetin Amor-epbx (RETACRIT(non-esrd)) 40,000 unit We@1700 SC Last administered on 03/19/19 17:25; Admin Dose 40,000 UNIT; Start 03/19/19 at 17:00 Multivit/Ca Carb/ B Cmplx/FA/Prenat (Renee-Antonio) 1 tab DAILY GTB Last administered on 03/25/19 09:56; Admin Dose 1 TAB; Start 03/21/19 at 09:00 Zinc Sulfate (Zinc Sulfate) 220 mg DAILY GTB Last administered on 03/25/19 09:56; Admin Dose 220 MG; Start 03/21/19 at 09:00 Collagenase (Santyl) 1 applic BID TOP Last administered on 03/25/19 09:57; Admin Dose 1 APPLIC; Start 03/20/19 at 16:28 Vancomycin HCl (Vanco Iv Per Pharmacy) VANCOMYCIN PER PHARMACY PER PROTOCOL XX ; Start 03/23/19 at 06:30 Piperacillin Sod/ Tazobactam Sod 100 ml @ 200 mls/hr Q6 IVPB Last administered on 03/25/19 12:42; Admin Dose 200 MLS/HR; Start 03/23/19 at 06:30 Vancomycin HCl 250 ml @ 125 mls/hr Q48H IVPB Last administered on 03/25/19 09:53; Admin Dose 125 MLS/HR; Start 03/25/19 at 08:00 Dextrose/Sodium Chloride 1,000 ml @ 75 mls/hr [id number] IV Last administered on 03/25/19 06:18; Admin Dose 75 MLS/HR; Start 03/23/19 at 19:30 Acetylcysteine (Mucomyst) 2 ml Q6H RESP THERAPY NEB Last administered on 03/25/19 08:54; Admin Dose 2 ML; Start 03/24/19 at 11:00 Levalbuterol (Xopenex Hfa) 2 puff Q6H RESP THERAPY INH Last administered on 03/25/19 14:35; Admin Dose 2 PUFF; Start 03/24/19 at 14:00 Allergies: Coded Allergies: No Known Allergy (Unverified , 03/17/19) Past Surgical History Past Surgical Hx: other Social History Alcohol Use: none Smoking Status: Never smoker Drug Use: none Exam/Review of Systems Exam Vitals Vital Signs Date Temp Pulse Resp B/P (MAP) Pulse Ox O2 O2 Flow FiO2 Time Delivery Rate 03/25/19 63 20 98 30 13:20 03/25/19 98.1 136/63 10:56 (87) 03/24/19 Trach 15:54 Collar 03/22/19 2.0 20:00 Intake and Output 03/24/19 03/24/19 03/25/19 1515:00 23:00 07:00 IntakeIntake Total 200 ml 210 ml 1250 ml OutputOutput Total 400 ml BalanceBalance -200 ml 210 ml 1250 ml Results Result Diagram: 03/24/19 0847 03/25/19 0550 Results 24hrs Laboratory Tests Test 03/25/19 05:50 Sodium Level 140 Potassium Level 3.8 Chloride Level 113 H Carbon Dioxide Level 19 L Anion Gap 8 Blood Urea Nitrogen 22 H Creatinine 1.05 H Est Glomerular Filtrat Rate mL/min Glucose Level 97 Calcium Level 8.5 Total Bilirubin 0.4 Direct Bilirubin 0.00 Indirect Bilirubin 0.4 Aspartate Amino Transf (AST/SGOT) 13 L Alanine Aminotransferase (ALT/SGPT) 7 L Alkaline Phosphatase 89 Total Protein 5.6 L Albumin 2.5 L Globulin 3.10 Albumin/Globulin Ratio 0.80 Medications Medication Current Medications Acetaminophen (Tylenol Liquid) 650 mg Q4H PRN GTB MILD PAIN 1-3; Start 03/17/19 at 21:30 Bisacodyl (Dulcolax Supp) 10 mg DAILY PRN [place] CONSTIPATION; Start 03/17/19 at 21:00 Chlorhexidine Gluconate (Peridex) 15 ml Q12H MM Last administered on 03/25/19at 09:56; Admin Dose 15 ML; Start 03/17/19 at 21:00 Digoxin (Digoxin) 0.125 mg DAILY@13 PO Last administered on 03/24/19at 15:14; Admin Dose 0.125 MG; Start 03/18/19 at 13:00 Docusate Sodium (Colace) 100 mg DAILY PO Last administered on 03/25/19at 09:56; Admin Dose 100 MG; Start 03/18/19 at 09:00 Levetiracetam (Keppra Liquid) 250 mg Q12H GTB Last administered on 03/25/19 09:55; Admin Dose 250 MG; Start 03/17/19 at 21:00 Magnesium Hydroxide (Milk Of Mag) 30 ml DAILY PRN GTB CONSTIPATION; Start 03/17/19 at 21:00 Metoprolol Tartrate (Lopressor) 25 mg BID GTB Last administered on 03/25/19 09:00; Admin Dose 25 MG; Start 03/17/19 at 21:00 Lansoprazole (Prevacid) 30 mg DAILY@06 GTB Last administered on 03/25/19 06:15; Admin Dose 30 MG; Start 03/18/19 at 06:00 Epoetin Amor-epbx (RETACRIT(non-esrd)) 40,000 unit We@1700 SC Last administered on 03/19/19 17:25; Admin Dose 40,000 UNIT; Start 03/19/19 at 17:00 Multivit/Ca Carb/ B Cmplx/FA/Prenat (Renee-Antonio) 1 tab DAILY GTB Last administered on 03/25/19 09:56; Admin Dose 1 TAB; Start 03/21/19 at 09:00 Zinc Sulfate (Zinc Sulfate) 220 mg DAILY GTB Last administered on 03/25/19 09:56; Admin Dose 220 MG; Start 03/21/19 at 09:00 Collagenase (Santyl) 1 applic BID TOP Last administered on 03/25/19 09:57; Admin Dose 1 APPLIC; Start 03/20/19 at 16:28 Vancomycin HCl (Vanco Iv Per Pharmacy) VANCOMYCIN PER PHARMACY PER PROTOCOL XX ; Start 03/23/19 at 06:30 Piperacillin Sod/ Tazobactam Sod 100 ml @ 200 mls/hr Q6 IVPB Last administered on 03/25/19 12:42; Admin Dose 200 MLS/HR; Start 03/23/19 at 06:30 Vancomycin HCl 250 ml @ 125 mls/hr Q48H IVPB Last administered on 03/25/19 09:53; Admin Dose 125 MLS/HR; Start 03/25/19 at 08:00 Dextrose/Sodium Chloride 1,000 ml @ 75 mls/hr [id number] IV Last administered on 03/25/19 06:18; Admin Dose 75 MLS/HR; Start 03/23/19 at 19:30 Acetylcysteine (Mucomyst) 2 ml Q6H RESP THERAPY NEB Last administered on 03/25/19at 08:54; Admin Dose 2 ML; Start 03/24/19 at 11:00 Levalbuterol (Xopenex Hfa) 2 puff Q6H RESP THERAPY INH Last administered on 03/25/19at 14:35; Admin Dose 2 PUFF; Start 03/24/19 at 14:00 EULA HICKMAN NP March 25, 2019 14:53
--- NOTE | 2019-03-25 14:59 | PN ---
DATE: 03/25/2019 SUBJECTIVE: The patient's general condition is same. She is on long-term ventilator support through tracheostomy. She is noncognitive. No response to verbal or painful stimuli. Her breathing appear s comfortable synchronized with the ventilator. PHYSICAL EXAMINATION: VITAL SIGNS: Show temperature 98.1, blood pressure 136/63, pulse rate 62, respirations 20, pulse oxi metry 100% saturation. NECK: Tracheal secretions are moderate and clear per respiratory therapist. No gross bleeding seen. HEART: Regular rhythm. CHEST: Breath sounds are heard bilaterally, more diminished in the lower lung corona; otherwise fair ly clear. ABDOMEN: Soft. No distention seen. Tolerating tube feedings. Normal bowel sounds. EXTREMITIES: Show no spontaneous movements, no edema. Spastic in all the extremities. LABORATORY RESULTS: From today shows sodium 140, potassium 3.8, BUN 22, creatinine 1.05, glucose 97. DIAGNOSTIC DATA: Chest x-ray results are still awaited. The patient is getting vancomycin and Zosyn. She is also getting Mucomyst inhalation with chest perc ussion therapy following inhalation therapy. IMPRESSION: 1. Chronic ventilator dependent respiratory failure. 2. Atelectasis, left lower lobe, probably due to retained secretions. 3. Chronic encephalopathy following cardiac arrest. 4. History of advanced chronic obstructive pulmonary disease. 5. History of congestive heart failure. 6. History of paroxysmal atrial fibrillation. 7. Status post cerebrovascular accident. 8. History of seizure disorder. 9. Chronic anemia. 10. Azotemia, progressively improving. PLAN: 1. Continue long-term ventilator support. 2. Continue bronchodilator inhalation therapy to maintain the pulmonary hygiene and clear the secret ions. 3. Continue Mucomyst inhalation to clear the secretions. 4. Continue chest percussion therapy. 5. Chest x-ray was done today, but the report is not available. I called the radiology department. It will take some more time to get the results. Dictated By: KORTNEY GAMEZ MD SR/NTS Conf#: [id number] DID#: [id number] CC: MENDEL FIELDS MD; JAYLEN LUGO MD;*EndCC*
--- NOTE | 2019-03-25 15:27 | CONS ---
Assessment/Plan Assessment/Plan Hospital Course (Demo Recall) 73 yo with #Anemia -Hg > 9 today -pt is noted to have a macrocytic anemia which is mostly likely 2/2 underlying myelodysplastic syndrome -will check epo level and start epogen 40,000 units weekly -iron panel reveals mild iron deficiency. Ferrlecit ordered -vitamin b12 and folate levels are ok -past workup for anemia reveals a negative SPEP and no signs of hemolysis. will however recheck LDH, haptoglobin and retic -f/u colonoscopy results Consultation Date/Type/Reason Admit Date/Time March 17, 2019 at 14:33 Initial Consult Date 03/18/19 Type of Consult hematology Reason for Consultation anemia Requesting Provider: JAYLEN LUGO MD Date/Time of Note DATE: 03/25/19 TIME: 15:25 24 HR Interval Summary Free Text/Dictation no acute overnight events. Hg stable Exam/Review of Systems Exam Vitals Vital Signs Date Temp Pulse Resp B/P (MAP) Pulse Ox O2 O2 Flow FiO2 Time Delivery Rate 03/25/19 63 20 98 30 13:20 03/25/19 98.1 136/63 10:56 (87) 03/24/19 Trach 15:54 Collar 03/22/19 2.0 20:00 Intake and Output 03/24/19 03/24/19 03/25/19 1515:00 23:00 07:00 IntakeIntake Total 200 ml 210 ml 1250 ml OutputOutput Total 400 ml BalanceBalance -200 ml 210 ml 1250 ml Constitutional: alert, oriented Psych: no complaints Head: normocephalic Eyes: nl conjunctiva ENMT: nl external ears & nose Neck: supple Respiratory: clear to auscultation Cardiovascular: regular rate and rhythm Gastrointestinal: soft Musculoskeletal: nl extremities to inspection Results Result Diagram: 03/24/19 0847 03/25/19 0550 Results 24hrs Laboratory Tests Test 03/25/19 05:50 Sodium Level 140 Potassium Level 3.8 Chloride Level 113 H Carbon Dioxide Level 19 L Anion Gap 8 Blood Urea Nitrogen 22 H Creatinine 1.05 H Est Glomerular Filtrat Rate mL/min Glucose Level 97 Calcium Level 8.5 Total Bilirubin 0.4 Direct Bilirubin 0.00 Indirect Bilirubin 0.4 Aspartate Amino Transf (AST/SGOT) 13 L Alanine Aminotransferase (ALT/SGPT) 7 L Alkaline Phosphatase 89 Total Protein 5.6 L Albumin 2.5 L Globulin 3.10 Albumin/Globulin Ratio 0.80 Medications Medication Current Medications Acetaminophen (Tylenol Liquid) 650 mg Q4H PRN GTB MILD PAIN 1-3; Start 03/17/19 at 21:30 Bisacodyl (Dulcolax Supp) 10 mg DAILY PRN SD CONSTIPATION; Start 03/17/19 at 21:00 Chlorhexidine Gluconate (Peridex) 15 ml Q12H MM Last administered on 03/25/19 09:56; Admin Dose 15 ML; Start 03/17/19 at 21:00 Digoxin (Digoxin) 0.125 mg DAILY@13 PO Last administered on 03/24/19 15:14; Admin Dose 0.125 MG; Start 03/18/19 at 13:00 Docusate Sodium (Colace) 100 mg DAILY PO Last administered on 03/25/19 09:56; Admin Dose 100 MG; Start 03/18/19 at 09:00 Levetiracetam (Keppra Liquid) 250 mg Q12H GTB Last administered on 03/25/19 09:55; Admin Dose 250 MG; Start 03/17/19 at 21:00 Magnesium Hydroxide (Milk Of Mag) 30 ml DAILY PRN GTB CONSTIPATION; Start 03/17/19 at 21:00 Metoprolol Tartrate (Lopressor) 25 mg BID GTB Last administered on 03/25/19 09:00; Admin Dose 25 MG; Start 03/17/19 at 21:00 Lansoprazole (Prevacid) 30 mg DAILY@06 GTB Last administered on 03/25/19 06:15; Admin Dose 30 MG; Start 03/18/19 at 06:00 Epoetin Amor-epbx (RETACRIT(non-esrd)) 40,000 unit We@1700 SC Last administered on 03/19/19 17:25; Admin Dose 40,000 UNIT; Start 03/19/19 at 17:00 Multivit/Ca Carb/ B Cmplx/FA/Prenat (Renee-Antonio) 1 tab DAILY GTB Last administered on 03/25/19 09:56; Admin Dose 1 TAB; Start 03/21/19 at 09:00 Zinc Sulfate (Zinc Sulfate) 220 mg DAILY GTB Last administered on 03/25/19 09:56; Admin Dose 220 MG; Start 03/21/19 at 09:00 Collagenase (Santyl) 1 applic BID TOP Last administered on 03/25/19 09:57; Admin Dose 1 APPLIC; Start 03/20/19 at 16:28 Vancomycin HCl (Vanco Iv Per Pharmacy) VANCOMYCIN PER PHARMACY PER PROTOCOL XX ; Start 03/23/19 at 06:30 Piperacillin Sod/ Tazobactam Sod 100 ml @ 200 mls/hr Q6 IVPB Last administered on 03/25/19 12:42; Admin Dose 200 MLS/HR; Start 03/23/19 at 06:30 Vancomycin HCl 250 ml @ 125 mls/hr Q48H IVPB Last administered on 03/25/19 09:53; Admin Dose 125 MLS/HR; Start 03/25/19 at 08:00 Dextrose/Sodium Chloride 1,000 ml @ 75 mls/hr [id number] IV Last administered on 03/25/19 06:18; Admin Dose 75 MLS/HR; Start 03/23/19 at 19:30 Acetylcysteine (Mucomyst) 2 ml Q6H RESP THERAPY NEB Last administered on 03/25/19 08:54; Admin Dose 2 ML; Start 03/24/19 at 11:00 Levalbuterol (Xopenex Hfa) 2 puff Q6H RESP THERAPY INH Last administered on 03/25/19 14:35; Admin Dose 2 PUFF; Start 03/24/19 at 14:00 IJEOMA GROSSMAN M.D. March 25, 2019 15:27
--- NOTE | 2019-03-25 15:32 | PN ---
Date/Time of Note Date/Time of Note DATE: 03/25/19 TIME: 15:25 Assessment/Plan VTE Prophylaxis Risk score (from Ns)>0 risk: 9 [place] applied [place] [facility] Yes Pharmacological prophylaxis: NA/contraindicated Pharm contraindication: other Lines/Catheters IV [facility]ter Type (from [facility]): Peripheral IV Urinary Cath still in place: Yes Reason Cath still needed: urinary retention Assessment/Plan Hospital Course Pt is NPO, continued on IVF. No distress, continues on ventilatory support without acute distress. Assessment/Plan -Diverticular abscess, Dr Mario is asked to see pt in surgical consultation. Continue NPO, IVF. -Severe diverticulosis with spasm per colonoscopy. Dr. Galdamez is following in gastroenterology consultation. -Anemia. Stool for OB neg. Continue Epogen and Iron supplementation. Dr. Kiser is following in hematology consultation -Ventilator dependent respiratory failure with tracheostomy. Dr. Davenport is following in pulmonology consultation. -Acute on chronic kidney disease. Monitor BUN and creatinine. Dr. Grant is following in nephrology consultation -Atrial fibrillation, continue metoprolol -Diastolic congestive heart failure. Dr. Hernandez is following in cardiology consultation. -Pulmonary fibrosis, continue Pulmicort. -Dysphagia with G-tube. -Chronic encephalopathy -COPD -History of CVA, continue aspirin. -Seizure disorder/status epilepticus. Continue Keppra and Ativan as needed. -MRSA nares colonization Further recommendations based on clinical course. Plan of care discussed with Dr. Phillips. Result Diagram: 03/24/19 0847 03/25/19 0550 Results 24hrs Laboratory Tests Test 03/25/19 05:50 Sodium Level 140 Potassium Level 3.8 Chloride Level 113 H Carbon Dioxide Level 19 L Anion Gap 8 Blood Urea Nitrogen 22 H Creatinine 1.05 H Est Glomerular Filtrat Rate mL/min Glucose Level 97 Calcium Level 8.5 Total Bilirubin 0.4 Direct Bilirubin 0.00 Indirect Bilirubin 0.4 Aspartate Amino Transf (AST/SGOT) 13 L Alanine Aminotransferase (ALT/SGPT) 7 L Alkaline Phosphatase 89 Total Protein 5.6 L Albumin 2.5 L Globulin 3.10 Albumin/Globulin Ratio 0.80 Exam/Review of Systems Exam Vitals Vital Signs Date Temp Pulse Resp B/P (MAP) Pulse Ox O2 O2 Flow FiO2 Time Delivery Rate 03/25/19 63 20 98 30 13:20 03/25/19 98.1 136/63 10:56 (87) 03/24/19 Trach 15:54 Collar 03/22/19 2.0 20:00 Intake and Output 03/24/19 03/24/19 03/25/19 1515:00 23:00 07:00 IntakeIntake Total 200 ml 210 ml 1250 ml OutputOutput Total 400 ml BalanceBalance -200 ml 210 ml 1250 ml Exam Constitutional: frail Neck: other (trach) Respiratory: diminished breath sounds Cardiovascular: regular rate and rhythm Gastrointestinal: soft, non-tender, other (G-tube) Extremities: normal pulses Neurological: lethargic Results Results 24hrs Laboratory Tests Test 03/25/19 05:50 Sodium Level 140 Potassium Level 3.8 Chloride Level 113 H Carbon Dioxide Level 19 L Anion Gap 8 Blood Urea Nitrogen 22 H Creatinine 1.05 H Est Glomerular Filtrat Rate mL/min Glucose Level 97 Calcium Level 8.5 Total Bilirubin 0.4 Direct Bilirubin 0.00 Indirect Bilirubin 0.4 Aspartate Amino Transf (AST/SGOT) 13 L Alanine Aminotransferase (ALT/SGPT) 7 L Alkaline Phosphatase 89 Total Protein 5.6 L Albumin 2.5 L Globulin 3.10 Albumin/Globulin Ratio 0.80 Medications Medication Current Medications Acetaminophen (Tylenol Liquid) 650 mg Q4H PRN GTB MILD PAIN 1-3; Start 03/17/19 at 21:30 Bisacodyl (Dulcolax Supp) 10 mg DAILY PRN SD CONSTIPATION; Start 03/17/19 at 21:00 Chlorhexidine Gluconate (Peridex) 15 ml Q12H MM Last administered on 03/25/19at 09:56; Admin Dose 15 ML; Start 03/17/19 at 21:00 Digoxin (Digoxin) 0.125 mg DAILY@13 PO Last administered on 03/24/19at 15:14; Admin Dose 0.125 MG; Start 03/18/19 at 13:00 Docusate Sodium (Colace) 100 mg DAILY PO Last administered on 03/25/19at 09:56; Admin Dose 100 MG; Start 03/18/19 at 09:00 Levetiracetam (Keppra Liquid) 250 mg Q12H GTB Last administered on 03/25/19at 09:55; Admin Dose 250 MG; Start 03/17/19 at 21:00 Magnesium Hydroxide (Milk Of Mag) 30 ml DAILY PRN GTB CONSTIPATION; Start 03/17/19 at 21:00 Metoprolol Tartrate (Lopressor) 25 mg BID GTB Last administered on 03/25/19 09:00; Admin Dose 25 MG; Start 03/17/19 at 21:00 Lansoprazole (Prevacid) 30 mg DAILY@06 GTB Last administered on 03/25/19 06:15; Admin Dose 30 MG; Start 03/18/19 at 06:00 Epoetin Amor-epbx (RETACRIT(non-esrd)) 40,000 unit We@1700 SC Last administered on 03/19/19 17:25; Admin Dose 40,000 UNIT; Start 03/19/19 at 17:00 Multivit/Ca Carb/ B Cmplx/FA/Prenat (Renee-Antonio) 1 tab DAILY GTB Last administered on 03/25/19 09:56; Admin Dose 1 TAB; Start 03/21/19 at 09:00 Zinc Sulfate (Zinc Sulfate) 220 mg DAILY GTB Last administered on 03/25/19 09:56; Admin Dose 220 MG; Start 03/21/19 at 09:00 Collagenase (Santyl) 1 applic BID TOP Last administered on 03/25/19 09:57; Admin Dose 1 APPLIC; Start 03/20/19 at 16:28 Vancomycin HCl (Vanco Iv Per Pharmacy) VANCOMYCIN PER PHARMACY PER PROTOCOL XX ; Start 03/23/19 at 06:30 Piperacillin Sod/ Tazobactam Sod 100 ml @ 200 mls/hr Q6 IVPB Last administered on 03/25/19 12:42; Admin Dose 200 MLS/HR; Start 03/23/19 at 06:30 Vancomycin HCl 250 ml @ 125 mls/hr Q48H IVPB Last administered on 03/25/19 09:53; Admin Dose 125 MLS/HR; Start 03/25/19 at 08:00 Dextrose/Sodium Chloride 1,000 ml @ 75 mls/hr [id number] IV Last administered on 03/25/19 06:18; Admin Dose 75 MLS/HR; Start 03/23/19 at 19:30 Acetylcysteine (Mucomyst) 2 ml Q6H RESP THERAPY NEB Last administered on 5/14/19at 08:54; Admin Dose 2 ML; Start 03/24/19 at 11:00 Levalbuterol (Xopenex Hfa) 2 puff Q6H RESP THERAPY INH Last administered on 03/25/19at 14:35; Admin Dose 2 PUFF; Start 03/24/19 at 14:00 IMER VARGAS March 25, 2019 15:32
--- NOTE | 2019-03-25 15:38 | CONS ---
Assessment/Plan Assessment/Plan Hospital Course (Demo Recall) Patient is noncommunicative lying comfortably in bed, no fevers overnight. Indwelling: Trach, PEG, Damon Antimicrobials: Vancomycin, Zosyn Physical examination: Chronically ill-appearing elderly woman in no distress. Head atraumatic normocephalic neck is supple tracheostomy present chest rise symmetrical breath sounds diminished bases. Heart: S1-S2. Abdomen soft bowel sounds present. Assessment: 1. Sigmoid diverticulosis with abscess 2. Left lower lobe atelectasis ? PNA 3. Chronic respiratory failure and dysphagia 4. Seizure disorder 5. Acute on chronic encephalopathy 6. Chronic kidney disease 7. Urinary tract infection as per urinalysis Plan: Clinically stable, continue antibiotics, fu cx's, pending surgical evaluation Consultation Date/Type/Reason Admit Date/Time March 17, 2019 at 14:33 Initial Consult Date 03/18/19 Type of Consult id Requesting Provider: JAYLEN LUGO MD Date/Time of Note DATE: 03/25/19 TIME: 15:37 Exam/Review of Systems Exam Vitals Vital Signs Date Temp Pulse Resp B/P (MAP) Pulse Ox O2 O2 Flow FiO2 Time Delivery Rate 03/25/19 97.7 76 19 132/61 100 15:31 (84) 03/25/19 30 13:20 03/24/19 Trach 15:54 Collar 03/22/19 2.0 20:00 Intake and Output 03/24/19 03/24/19 03/25/19 1515:00 23:00 07:00 IntakeIntake Total 200 ml 210 ml 1250 ml OutputOutput Total 400 ml BalanceBalance -200 ml 210 ml 1250 ml Results Result Diagram: 03/24/19 0847 03/25/19 0550 Results 24hrs Laboratory Tests Test 03/25/19 05:50 Sodium Level 140 Potassium Level 3.8 Chloride Level 113 H Carbon Dioxide Level 19 L Anion Gap 8 Blood Urea Nitrogen 22 H Creatinine 1.05 H Est Glomerular Filtrat Rate mL/min Glucose Level 97 Calcium Level 8.5 Total Bilirubin 0.4 Direct Bilirubin 0.00 Indirect Bilirubin 0.4 Aspartate Amino Transf (AST/SGOT) 13 L Alanine Aminotransferase (ALT/SGPT) 7 L Alkaline Phosphatase 89 Total Protein 5.6 L Albumin 2.5 L Globulin 3.10 Albumin/Globulin Ratio 0.80 Medications Medication Current Medications Acetaminophen (Tylenol Liquid) 650 mg Q4H PRN GTB MILD PAIN 1-3; Start 03/17/19 at 21:30 Bisacodyl (Dulcolax Supp) 10 mg DAILY PRN [place] CONSTIPATION; Start 03/17/19 at 21:00 Chlorhexidine Gluconate (Peridex) 15 ml Q12H MM Last administered on 03/25/19 09:56; Admin Dose 15 ML; Start 03/17/19 at 21:00 Digoxin (Digoxin) 0.125 mg DAILY@13 PO Last administered on 03/24/19 15:14; Admin Dose 0.125 MG; Start 03/18/19 at 13:00 Docusate Sodium (Colace) 100 mg DAILY PO Last administered on 03/25/19 09:56; Admin Dose 100 MG; Start 03/18/19 at 09:00 Levetiracetam (Keppra Liquid) 250 mg Q12H GTB Last administered on 03/25/19 09:55; Admin Dose 250 MG; Start 03/17/19 at 21:00 Magnesium Hydroxide (Milk Of Mag) 30 ml DAILY PRN GTB CONSTIPATION; Start 03/17/19 at 21:00 Metoprolol Tartrate (Lopressor) 25 mg BID GTB Last administered on 03/25/19 09:00; Admin Dose 25 MG; Start 03/17/19 at 21:00 Lansoprazole (Prevacid) 30 mg DAILY@06 GTB Last administered on 03/25/19 06:15; Admin Dose 30 MG; Start 03/18/19 at 06:00 Epoetin Amor-epbx (RETACRIT(non-esrd)) 40,000 unit We@1700 SC Last administered on 03/19/19 17:25; Admin Dose 40,000 UNIT; Start 03/19/19 at 17:00 Multivit/Ca Carb/ B Cmplx/FA/Prenat (Renee-Antonio) 1 tab DAILY GTB Last administered on 03/25/19 09:56; Admin Dose 1 TAB; Start 03/21/19 at 09:00 Zinc Sulfate (Zinc Sulfate) 220 mg DAILY GTB Last administered on 03/25/19 09:56; Admin Dose 220 MG; Start 03/21/19 at 09:00 Collagenase (Santyl) 1 applic BID TOP Last administered on 03/25/19 09:57; Adm in Dose 1 APPLIC; Start 03/20/19 at 16:28 Vancomycin HCl (Vanco Iv Per Pharmacy) VANCOMYCIN PER PHARMACY PER PROTOCOL XX ; Start 03/23/19 at 06:30 Piperacillin Sod/ Tazobactam Sod 100 ml @ 200 mls/hr Q6 IVPB Last administered on 03/25/19 12:42; Admin Dose 200 MLS/HR; Start 03/23/19 at 06:30 Vancomycin HCl 250 ml @ 125 mls/hr Q48H IVPB Last administered on 03/25/19 09:53; Admin Dose 125 MLS/HR; Start 03/25/19 at 08:00 Dextrose/Sodium Chloride 1,000 ml @ 75 mls/hr [id number] IV Last administered on 03/25/19 06:18; Admin Dose 75 MLS/HR; Start 03/23/19 at 19:30 Acetylcysteine (Mucomyst) 2 ml Q6H RESP THERAPY NEB Last administered on 03/25/19 14:00; Admin Dose 2 ML; Start 03/24/19 at 11:00 Levalbuterol (Xopenex Hfa) 2 puff Q6H RESP THERAPY INH Last administered on 03/25/19 14:35; Admin Dose 2 PUFF; Start 03/24/19 at 14:00 DEBO UMANA NP March 25, 2019 15:38
--- NOTE | 2019-03-25 16:44 | PN ---
DATE: 03/25/2019 ADDENDUM: PROGRESS NOTE: I called her daughter Yoon, regarding the patient's condition, CAT scan finding and pending recommendation from surgery. She requested that if she can manage her without any surgic al intervention that will be the preferred choice. Due to patient's history of being noncommunicativ e and vent dependent, I agree with her decision. DISPOSITION: Patient will be transferred back to subacute unit once GI and surgery are okay with res uming G-tube feeding. Dictated By: JAYLEN VILLA/MONROE Conf#: [id number] DID#: [id number]
[2019-03-26] VITALS (23 sets, daily range): BP systolic 119–146; BP diastolic 53–64; PULSE 54–65; RESP 17–20
[2019-03-26] MEDS: DEXTROSE 5%-0.45% NACL 1,000 ML IV SCH ×2 (01:03→14:31)
[2019-03-26] MEDS: ACETYLCYSTEINE 20% 4 ML VIAL NEB SCH ×4 (01:13→19:23)
[2019-03-26] MEDS: LEVALBUTEROL (HFA) 15 GM INHALER INH SCH ×4 (01:13→19:23)
[2019-03-26] MEDS: PIPER-TAZO 3.375 GM IV (PMX) 100 ML IVPB SCH ×4 (05:38→23:15)
[2019-03-26] MEDS: LANSOPRAZOLE 30 MG CAP GTB SCH (05:38)
[2019-03-26] MEDS: METOPROLOL 25 MG TAB GTB SCH ×2 (09:00→20:54)
--- NOTE | 2019-03-26 09:45 | PN ---
DATE: 03/26/2019 SUBJECTIVE: The patient is stable, no events overnight. No other events noted. OBJECTIVE: VITAL SIGNS: Blood pressure is 146/63, respirations 20, pulse 68, temperature 98.1. HEENT: Head is normocephalic. NECK: Supple. HEART: Regular rate. LUNGS: Show diminished breath sounds at the base. ABDOMEN: Soft, nontender to palpation without rebound or guarding. EXTREMITIES: Negative for clubbing, cyanosis, no edema. DERMATOLOGIC: No rashes. MUSCULOSKELETAL: No joint effusion. NEUROLOGIC: No change in exam. MEDICATIONS: The patient's medications have been reviewed. LABORATORY DATA: Reviewed. ASSESSMENT AND PLAN: 1. Chronic kidney disease, stage III. The patient's renal function is stable. Continue current rosibel atment plan, supportive care, renally dose all medications. 2. Anemia. Continue to monitor hemoglobin and hematocrit levels. 3. Mineral bone disorder, monitor calcium and phosphorus levels. 4. Hypertension. Continue current blood pressure regimen. 5. Sigmoid diverticulosis with abscess. Continue medical management. Follow up with general surger y. Continue antibiotic therapy. 6. Ventilator-dependent respiratory failure. Vent settings have been reviewed. Continue to monitor . Follow up with pulmonary. 7. Dysphagia. Continue tube feeding. 8. Chronic encephalopathy. No change. 9. Seizure disorder. Continue medical management. Dictated By: RAJINDER ATWOOD DO NR/NTS Conf#: [id number] DID#: [id number] CC: JAYLEN LUGO MD; MENDEL FIELDS MD;*EndCC*
[2019-03-26] MEDS: DOCUSATE SODIUM 100 MG CAP PO SCH (10:04)
[2019-03-26] MEDS: COLLAGENASE 5 GM (UD JAR) TOP SCH ×2 (10:04→20:55)
[2019-03-26] MEDS: MULTIVIT/CA CARB/B CMPLX/FA TAB GTB SCH (10:04)
[2019-03-26] MEDS: ZINC SULFATE 220 MG CAP GTB SCH (10:04)
[2019-03-26] MEDS: LEVETIRACETAM (100 MG/ML) 5ML CUP GTB SCH ×2 (10:04→20:54)
[2019-03-26] MEDS: CHLORHEXIDINE GLUCONATE 15 ML UD CUP MM SCH ×2 (10:04→20:54)
--- NOTE | 2019-03-26 11:37 | PN ---
Date/Time of Note Date/Time of Note DATE: 03/26/19 TIME: 11:32 Assessment/Plan VTE Prophylaxis Risk score (from Ns)>0 risk: 7 SCD applied (from [facility] [place]): Yes Pharmacological prophylaxis: NA/contraindicated Pharm contraindication: surgical contra Lines/Catheters IV Catheter Type (from [facility], [place]): Peripheral IV Urinary Cath still in place: Yes Reason Cath still needed: urinary retention Assessment/Plan Hospital Course Patient continues on ventilatory support, more chest x-ray reviewed discussed with Dr. Davenport pulmonology, continue current treatment. pt is NPO, continued on IVF. Monitor electrolytes. Patient's daughter prefer patient is to be managed conservatively if possible. Assessment/Plan -Diverticular abscess, Dr Mario is following in surgical consultation. Continue NPO, IVF. -Severe diverticulosis with spasm per colonoscopy. Dr. Galdamez is following in gastroenterology consultation. -Anemia. Stool for OB neg. Continue Epogen and Iron supplementation. Dr. Kiser is following in hematology consultation -Ventilator dependent respiratory failure with tracheostomy. Dr. Davenport is following in pulmonology consultation. -Acute on chronic kidney disease. Monitor BUN and creatinine. Dr. Grant is following in nephrology consultation -Atrial fibrillation, continue metoprolol -Diastolic congestive heart failure. Dr. Hernandez is following in cardiology consultation. -Pulmonary fibrosis, continue Pulmicort. -Dysphagia with G-tube. -Chronic encephalopathy -COPD -History of CVA, continue aspirin. -Seizure disorder/status epilepticus. Continue Keppra and Ativan as needed. -MRSA nares colonization Further recommendations based on clinical course. Plan of care discussed with Dr. Phillips. Result Diagram: 03/24/19 0847 03/25/19 0550 Exam/Review of Systems Exam Vitals Vital Signs Date Temp Pulse Resp B/P (MAP) Pulse Ox O2 O2 Flow FiO2 Time Delivery Rate 03/26/19 61 20 98 30 09:15 03/26/19 98.1 146/63 Mechanical 07:40 (90) Ventilator 03/22/19 2.0 20:00 Intake and Output 03/25/19 03/25/19 03/26/19 1515:00 23:00 07:00 IntakeIntake Total 1550 ml OutputOutput Total 200 ml 1500 ml BalanceBalance -200 ml 50 ml Exam Constitutional: frail Neck: other (trach) Respiratory: diminished breath sounds Cardiovascular: regular rate and rhythm Gastrointestinal: soft, non-tender, other (G-tube) Extremities: normal pulses Neurological: lethargic Medications Medication Current Medications Acetaminophen (Tylenol Liquid) 650 mg Q4H PRN GTB MILD PAIN 1-3; Start 03/17/19 at 21:30 Bisacodyl (Dulcolax Supp) 10 mg DAILY PRN [place] CONSTIPATION; Start 03/17/19 at 21:00 Chlorhexidine Gluconate (Peridex) 15 ml Q12H MM Last administered on 03/26/19 10:04; Admin Dose 15 ML; Start 03/17/19 at 21:00 Digoxin (Digoxin) 0.125 mg DAILY@13 PO Last administered on 03/24/19 15:14; Admin Dose 0.125 MG; Start 03/18/19 at 13:00 Docusate Sodium (Colace) 100 mg DAILY PO Last administered on 03/26/19 10:04; Admin Dose 100 MG; Start 03/18/19 at 09:00 Levetiracetam (Keppra Liquid) 250 mg Q12H GTB Last administered on 03/26/19 10:04; Admin Dose 250 MG; Start 03/17/19 at 21:00 Magnesium Hydroxide (Milk Of Mag) 30 ml DAILY PRN GTB CONSTIPATION; Start 03/17/19 at 21:00 Metoprolol Tartrate (Lopressor) 25 mg BID GTB Last administered on 03/25/19 21:50; Admin Dose 25 MG; Start 03/17/19 at 21:00 Lansoprazole (Prevacid) 30 mg DAILY@06 GTB Last administered on 03/26/19 05:38; Admin Dose 30 MG; Start 03/18/19 at 06:00 Epoetin Amor-epbx (RETACRIT(non-esrd)) 40,000 unit We@1700 SC Last administered on 03/19/19 17:25; Admin Dose 40,000 UNIT; Start 03/19/19 at 17:00 Multivit/Ca Carb/ B Cmplx/FA/Prenat (Renee-Antonio) 1 tab DAILY GTB Last administered on 03/26/19 10:04; Admin Dose 1 TAB; Start 03/21/19 at 09:00 Zinc Sulfate (Zinc Sulfate) 220 mg DAILY GTB Last administered on 03/26/19 10:04; Admin Dose 220 MG; Start 03/21/19 at 09:00 Collagenase (Santyl) 1 applic BID TOP Last administered on 03/26/19 10:04; Admin Dose 1 APPLIC; Start 03/20/19 at 16:28 Vancomycin HCl (Vanco Iv Per Pharmacy) VANCOMYCIN PER PHARMACY PER PROTOCOL XX ; Start 03/23/19 at 06:30 Piperacillin Sod/ Tazobactam Sod 100 ml @ 200 mls/hr Q6 IVPB Last administered on 03/26/19 05:38; Admin Dose 200 MLS/HR; Start 03/23/19 at 06:30 Vancomycin HCl 250 ml @ 125 mls/hr Q48H IVPB Last administered on 03/25/19 09:53; Admin Dose 125 MLS/HR; Start 03/25/19 at 08:00 Dextrose/Sodium Chloride 1,000 ml @ 75 mls/hr [id number] IV Last administered on 03/26/19 01:03; Admin Dose 75 MLS/HR; Start 03/23/19 at 19:30 Acetylcysteine (Mucomyst) 2 ml Q6H RESP THERAPY NEB Last administered on 03/26/19 08:30; Admin Dose 2 ML; Start 03/24/19 at 11:00 Levalbuterol (Xopenex Hfa) 2 puff Q6H RESP THERAPY INH Last administered on 03/26/19 08:30; Admin Dose 2 PUFF; Start 03/24/19 at 14:00 IMER VARGAS March 26, 2019 11:37
[2019-03-26] MEDS: DIGOXIN 0.125 MG TAB PO SCH (12:55)
--- NOTE | 2019-03-26 14:24 | CONS ---
Assessment/Plan Assessment/Plan Hospital Course (Demo Recall) IMP: 1.PVC-ongoing. EF 65% by echo 10/29 2.Bradycardia-to 50's 3.HTN 4.REsp failure-chronic s/p trach 5.SVT-short run. NO recurrence 6.anemia Recc: -Tele -check digoxin level -Continue low dose BB as tolertedonly -Check TSH -Complete kamar -Continue abx's and f/u cx data Consultation Date/Type/Reason Admit Date/Time March 17, 2019 at 14:33 Initial Consult Date 03/18/19 Type of Consult Cardiology Reason for Consultation PVC Requesting Provider: JAYLEN LUGO MD Date/Time of Note DATE: 03/26/19 TIME: 14:18 Exam/Review of Systems Vital Signs Vitals Vital Signs Date Temp Pulse Resp B/P (MAP) Pulse Ox O2 O2 Flow FiO2 Time Delivery Rate 03/26/19 65 13:01 03/26/19 98.7 20 132/62 99 Mechanical 11:40 (85) Ventilator 03/26/19 30 11:17 03/22/19 2.0 20:00 Intake and Output 03/25/19 03/25/19 03/26/19 1515:00 23:00 07:00 IntakeIntake Total 1550 ml OutputOutput Total 200 ml 1500 ml BalanceBalance -200 ml 50 ml Exam Exam Review of Systems: CONSTITUTIONAL: No fevers, chills. PULMONARY: No sob CARDIOVASCULAR: No chest pain/palpitations GASTROINTESTINAL: No nausea/vomiting. GENITOURINARY: No hematuria/dysuria. MUSCULOSKELETAL: No myagias/arthalgias. PSYCHIATRIC: The patient denies depression. NEUROLOGIC: lethargic Constitutional: alert Psych: no complaints Head: normocephalic ENMT: mucosa pink and moist Neck: supple, jvd (9 cm water) Respiratory: diminished breath sounds Cardiovascular: regular rate and rhythm Gastrointestinal: soft, non-tender Musculoskeletal: muscle tone (normal) Extremities: edema (none) Neurological: other (No focal deficits) Labs Result Diagram: 03/24/19 0870 03/25/19 0550 Medications Medications Current Medications Acetaminophen (Tylenol Liquid) 650 mg Q4H PRN GTB MILD PAIN 1-3; Start 03/17/19 at 21:30 Bisacodyl (Dulcolax Supp) 10 mg DAILY PRN [place] CONSTIPATION; Start 03/17/19 at 21:00 Chlorhexidine Gluconate (Peridex) 15 ml Q12H MM Last administered on 03/26/19 10:04; Admin Dose 15 ML; Start 03/17/19 at 21:00 Digoxin (Digoxin) 0.125 mg DAILY@13 PO Last administered on 03/24/19 15:14; Admin Dose 0.125 MG; Start 03/18/19 at 13:00 Docusate Sodium (Colace) 100 mg DAILY PO Last administered on 03/26/19 10:04; Admin Dose 100 MG; Start 03/18/19 at 09:00 Levetiracetam (Keppra Liquid) 250 mg Q12H GTB Last administered on 03/26/19 10:04; Admin Dose 250 MG; Start 03/17/19 at 21:00 Magnesium Hydroxide (Milk Of Mag) 30 ml DAILY PRN GTB CONSTIPATION; Start 03/17/19 at 21:00 Metoprolol Tartrate (Lopressor) 25 mg BID GTB Last administered on 03/25/19 21:50; Admin Dose 25 MG; Start 03/17/19 at 21:00 Lansoprazole (Prevacid) 30 mg DAILY@06 GTB Last administered on 03/26/19 05:38; Admin Dose 30 MG; Start 03/18/19 at 06:00 Epoetin Amor-epbx (RETACRIT(non-esrd)) 40,000 unit We@1700 SC Last administered on 03/19/19 17:25; Admin Dose 40,000 UNIT; Start 03/19/19 at 17:00 Multivit/Ca Carb/ B Cmplx/FA/Prenat (Renee-Antonio) 1 tab DAILY GTB Last administered on 03/26/19 10:04; Admin Dose 1 TAB; Start 03/21/19 at 09:00 Zinc Sulfate (Zinc Sulfate) 220 mg DAILY GTB Last administered on 03/26/19 10:04; Admin Dose 220 MG; Start 03/21/19 at 09:00 Collagenase (Santyl) 1 applic BID TOP Last administered on 03/26/19 10:04; Admin Dose 1 APPLIC; Start 03/20/19 at 16:28 Vancomycin HCl (Vanco Iv Per Pharmacy) VANCOMYCIN PER PHARMACY PER PROTOCOL XX ; Start 03/23/19 at 06:30 Piperacillin Sod/ Tazobactam Sod 100 ml @ 200 mls/hr Q6 IVPB Last administered on 03/26/19at 13:04; Admin Dose 200 MLS/HR; Start 03/23/19 at 06:30 Vancomycin HCl 250 ml @ 125 mls/hr Q48H IVPB Last administered on 03/25/19at 09:53; Admin Dose 125 MLS/HR; Start 03/25/19 at 08:00 Dextrose/Sodium Chloride 1,000 ml @ 75 mls/hr [id number] IV Last administered on 03/26/19 01:03; Admin Dose 75 MLS/HR; Start 03/23/19 at 19:30 Acetylcysteine (Mucomyst) 2 ml Q6H RESP THERAPY NEB Last administered on 03/26/19at 08:30; Admin Dose 2 ML; Start 03/24/19 at 11:00 Levalbuterol (Xopenex Hfa) 2 puff Q6H RESP THERAPY INH Last administered on 03/26/19 08:30; Admin Dose 2 PUFF; Start 03/24/19 at 14:00 LUIS FERGUSON March 26, 2019 14:23
--- NOTE | 2019-03-26 14:47 | PN ---
DATE: 03/26/2019 SUBJECTIVE: The patient's general condition is same. She remains noncognitive. She is on continuou s long-term ventilator support through tracheostomy. Her breathing appears comfortable, synchronized with the ventilator. According to respiratory therapist at the bedside, she has moderate secretions , no excessive purulence or bleeding seen. PHYSICAL EXAMINATION: VITAL SIGNS: Show temperature 98.1, blood pressure 146/63, pulse rate of 61, respirations 20, pulse oximetry 98% saturation. She is on 30% oxygen. HEART: Regular rhythm. CHEST: Breath sounds are somewhat diminished in the lower lung corona with few intermittent rales or rhonchi. Otherwise, upper lung corona are clear. ABDOMEN: Soft. No distention seen. EXTREMITIES: Show no edema. Generalized spasticity in all the extremities. LABORATORY TESTS: No lab tests results are available today. MICROBIOLOGY: Blood cultures show no growth. DIAGNOSTIC DATA: Chest x-ray taken yesterday for followup is reported to show mild increase in bilat eral interstitial markings and patchy opacities in the lungs, representing probably pulmonary vascula r congestion or infiltrate on background of chronic interstitial lung changes, persistent retrocardia c opacity may represent atelectasis infiltrate or small left pleural effusion. Overall, the chest x- ray finding of left lower lobe atelectasis seems to be improving. Most of the changes are chronic. IMPRESSION: 1. Chronic ventilator dependent respiratory failure. 2. Probable pneumonia, left lower lobe versus atelectasis versus effusion. 3. Chronic encephalopathy following cardiac arrest. 4. History of advanced chronic obstructive pulmonary disease. 5. History of congestive heart failure. 6. History of paroxysmal atrial fibrillation. 7. Status post cerebrovascular accident. 8. History of seizure disorder. 9. Chronic anemia. PLAN: 1. Continue long-term ventilator support. 2. Continue bronchodilator inhalation therapy to maintain pulmonary hygiene and clear the secretions . 3. Continue Mucomyst inhalation to clear the secretions. 4. Continue chest percussion therapy. 5. Continue antibiotics in which the patient is already getting with vancomycin and Zosyn. 6. Given the patient's general condition, she is not a candidate for any aggressive interventions. Dictated By: KORTNEY GAMEZ MD SR/NTS Conf#: [id number] DID#: [id number] CC: JAYLEN LUGO MD; MENDEL FIELDS MD;*EndCC*
--- NOTE | 2019-03-26 14:49 | CONS ---
Assessment/Plan Assessment/Plan Hospital Course (Demo Recall) No acute changes overnight patient is noncommunicative in no distress no fevers overnight Indwelling: Trach, PEG, Damon Antimicrobials: Vancomycin, Zosyn Physical examination: Chronically ill-appearing elderly woman in no distress. Head atraumatic normocephalic neck is supple tracheostomy present chest rise symmetrical breath sounds diminished bases. Heart: S1-S2. Abdomen soft bowel sounds present. Assessment: 1. Sigmoid diverticulosis with abscess 2. Left lower lobe atelectasis ? PNA 3. Chronic respiratory failure and dysphagia 4. Seizure disorder 5. Acute on chronic encephalopathy 6. Chronic kidney disease 7. Urinary tract infection as per urinalysis Plan: Clinically unchanged, per discussion with Dr. Davenport family refusing surgical interventions, will continue medical management with current antibiotics Consultation Date/Type/Reason Admit Date/Time March 17, 2019 at 14:33 Initial Consult Date 03/18/19 Type of Consult id Requesting Provider: JAYLEN LUGO MD Date/Time of Note DATE: 03/26/19 TIME: 14:48 Exam/Review of Systems Exam Vitals Vital Signs Date Temp Pulse Resp B/P (MAP) Pulse Ox O2 O2 Flow FiO2 Time Delivery Rate 03/26/19 65 13:01 03/26/19 98.7 20 132/62 99 Mechanical 11:40 (85) Ventilator 03/26/19 30 11:17 03/22/19 2.0 20:00 Intake and Output 03/25/19 03/25/19 03/26/19 1515:00 23:00 07:00 IntakeIntake Total 1550 ml OutputOutput Total 200 ml 1500 ml BalanceBalance -200 ml 50 ml Results Result Diagram: 03/24/19 0847 03/25/19 0550 Medications Medication Current Medications Acetaminophen (Tylenol Liquid) 650 mg Q4H PRN GTB MILD PAIN 1-3; Start 03/17/19 at 21:30 Bisacodyl (Dulcolax Supp) 10 mg DAILY PRN [place] CONSTIPATION; Start 03/17/19 at 21:00 Chlorhexidine Gluconate (Peridex) 15 ml Q12H MM Last administered on 03/26/19at 10:04; Admin Dose 15 ML; Start 03/17/19 at 21:00 Digoxin (Digoxin) 0.125 mg DAILY@13 PO Last administered on 03/24/19 15:14; Admin Dose 0.125 MG; Start 03/18/19 at 13:00 Docusate Sodium (Colace) 100 mg DAILY PO Last administered on 03/26/19 10:04; Admin Dose 100 MG; Start 03/18/19 at 09:00 Levetiracetam (Keppra Liquid) 250 mg Q12H GTB Last administered on 03/26/19 10:04; Admin Dose 250 MG; Start 03/17/19 at 21:00 Magnesium Hydroxide (Milk Of Mag) 30 ml DAILY PRN GTB CONSTIPATION; Start 03/17/19 at 21:00 Metoprolol Tartrate (Lopressor) 25 mg BID GTB Last administered on 03/25/19 21:50; Admin Dose 25 MG; Start 03/17/19 at 21:00 Lansoprazole (Prevacid) 30 mg DAILY@06 GTB Last administered on 03/26/19 05:38; Admin Dose 30 MG; Start 03/18/19 at 06:00 Epoetin Amor-epbx (RETACRIT(non-esrd)) 40,000 unit We@1700 SC Last administered on 03/19/19 17:25; Admin Dose 40,000 UNIT; Start 03/19/19 at 17:00 Multivit/Ca Carb/ B Cmplx/FA/Prenat (Renee-Antonio) 1 tab DAILY GTB Last administered on 03/26/19 10:04; Admin Dose 1 TAB; Start 03/21/19 at 09:00 Zinc Sulfate (Zinc Sulfate) 220 mg DAILY GTB Last administered on 03/26/19 10:04; Admin Dose 220 MG; Start 03/21/19 at 09:00 Collagenase (Santyl) 1 applic BID TOP Last administered on 03/26/19 10:04; Admin Dose 1 APPLIC; Start 03/20/19 at 16:28 Vancomycin HCl (Vanco Iv Per Pharmacy) VANCOMYCIN PER PHARMACY PER PROTOCOL XX ; Start 03/23/19 at 06:30 Piperacillin Sod/ Tazobactam Sod 100 ml @ 200 mls/hr Q6 IVPB Last administered on 03/26/19 13:04; Admin Dose 200 MLS/HR; Start 03/23/19 at 06:30 Vancomycin HCl 250 ml @ 125 mls/hr Q48H IVPB Last administered on 03/25/19 09:53; Admin Dose 125 MLS/HR; Start 03/25/19 at 08:00 Dextrose/Sodium Chloride 1,000 ml @ 75 mls/hr [id number] IV Last administered on 03/26/19 14:31; Admin Dose 75 MLS/HR; Start 03/23/19 at 19:30 Acetylcysteine (Mucomyst) 2 ml Q6H RESP THERAPY NEB Last administered on 03/12 14:45; Admin Dose 2 ML; Start 03/24/19 at 11:00 Levalbuterol (Xopenex Hfa) 2 puff Q6H RESP THERAPY INH Last administered on 03/26/19 14:44; Admin Dose 2 PUFF; Start 03/24/19 at 14:00 DEBO UMANA NP March 26, 2019 14:48
--- NOTE | 2019-03-26 15:09 | CONS ---
Assessment/Plan Assessment/Plan Hospital Course (Demo Recall) 73 yo with #Anemia -Hg > 9 today -pt is noted to have a macrocytic anemia which is mostly likely 2/2 underlying myelodysplastic syndrome -will check epo level and start epogen 40,000 units weekly -iron panel reveals mild iron deficiency. Ferrlecit ordered -vitamin b12 and folate levels are ok -past workup for anemia reveals a negative SPEP and no signs of hemolysis. will however recheck LDH, haptoglobin and retic -f/u colonoscopy results Consultation Date/Type/Reason Admit Date/Time March 17, 2019 at 14:33 Initial Consult Date 03/18/19 Type of Consult hematology Reason for Consultation anemia Requesting Provider: JAYLEN LUGO MD Date/Time of Note DATE: 03/26/19 TIME: 15:09 24 HR Interval Summary Free Text/Dictation no acute overnight events Exam/Review of Systems Exam Vitals Vital Signs Date Temp Pulse Resp B/P (MAP) Pulse Ox O2 O2 Flow FiO2 Time Delivery Rate 03/26/19 60 20 100 30 14:53 03/26/19 98.7 132/62 Mechanical 11:40 (85) Ventilator 03/22/19 2.0 20:00 Intake and Output 03/25/19 03/25/19 03/26/19 1515:00 23:00 07:00 IntakeIntake Total 1550 ml OutputOutput Total 200 ml 1500 ml BalanceBalance -200 ml 50 ml Constitutional: alert, oriented Psych: no complaints, anxiety, depression Eyes: nl conjunctiva ENMT: nl external ears & nose Neck: supple Respiratory: clear to auscultation Cardiovascular: regular rate and rhythm Gastrointestinal: soft Musculoskeletal: nl extremities to inspection Results Result Diagram: 03/24/19 0847 03/25/19 0550 Medications Medication Current Medications Acetaminophen (Tylenol Liquid) 650 mg Q4H PRN GTB MILD PAIN 1-3; Start 03/17/19 at 21:30 Bisacodyl (Dulcolax Supp) 10 mg DAILY PRN [place] CONSTIPATION; Start 03/17/19 at 21:00 Chlorhexidine Gluconate (Peridex) 15 ml Q12H MM Last administered on 03/26/19at 10:04; Admin Dose 15 ML; Start 03/17/19 at 21:00 Digoxin (Digoxin) 0.125 mg DAILY@13 PO Last administered on 03/24/19 15:14; Admin Dose 0.125 MG; Start 03/18/19 at 13:00 Docusate Sodium (Colace) 100 mg DAILY PO Last administered on 03/26/19 10:04; Admin Dose 100 MG; Start 03/18/19 at 09:00 Levetiracetam (Keppra Liquid) 250 mg Q12H GTB Last administered on 03/26/19 10:04; Admin Dose 250 MG; Start 03/17/19 at 21:00 Magnesium Hydroxide (Milk Of Mag) 30 ml DAILY PRN GTB CONSTIPATION; Start 03/17/19 at 21:00 Metoprolol Tartrate (Lopressor) 25 mg BID GTB Last administered on 03/25/19 21:50; Admin Dose 25 MG; Start 03/17/19 at 21:00 Lansoprazole (Prevacid) 30 mg DAILY@06 GTB Last administered on 03/26/19 05:38; Admin Dose 30 MG; Start 03/18/19 at 06:00 Epoetin Amor-epbx (RETACRIT(non-esrd)) 40,000 unit We@1700 SC Last administered on 03/19/19 17:25; Admin Dose 40,000 UNIT; Start 03/19/19 at 17:00 Multivit/Ca Carb/ B Cmplx/FA/Prenat (Renee-Antonio) 1 tab DAILY GTB Last administered on 03/26/19 10:04; Admin Dose 1 TAB; Start 03/21/19 at 09:00 Zinc Sulfate (Zinc Sulfate) 220 mg DAILY GTB Last administered on 03/26/19 10:04; Admin Dose 220 MG; Start 03/21/19 at 09:00 Collagenase (Santyl) 1 applic BID TOP Last administered on 03/26/19 10:04; Admin Dose 1 APPLIC; Start 03/20/19 at 16:28 Vancomycin HCl (Vanco Iv Per Pharmacy) VANCOMYCIN PER PHARMACY PER PROTOCOL XX ; Start 03/23/19 at 06:30 Piperacillin Sod/ Tazobactam Sod 100 ml @ 200 mls/hr Q6 IVPB Last administered on 03/26/19 13:04; Admin Dose 200 MLS/HR; Start 03/23/19 at 06:30 Vancomycin HCl 250 ml @ 125 mls/hr Q48H IVPB Last administered on 03/25/19 09:53; Admin Dose 125 MLS/HR; Start 03/25/19 at 08:00 Dextrose/Sodium Chloride 1,000 ml @ 75 mls/hr [id number] IV Last administered on 03/26/19 14:31; Admin Dose 75 MLS/HR; Start 03/23/19 at 19:30 Acetylcysteine (Mucomyst) 2 ml Q6H RESP THERAPY NEB Last administered on 03/26/19 14:45; Admin Dose 2 ML; Start 03/24/19 at 11:00 Levalbuterol (Xopenex Hfa) 2 puff Q6H RESP THERAPY INH Last administered on 03/26/19 14:44; Admin Dose 2 PUFF; Start 03/24/19 at 14:00 IJEOMA GROSSMAN M.D. March 26, 2019 15:09
[2019-03-26] MEDS: EPOETIN ALFA-EPBX (NON-ESRD 10,000 UNIT/ML VIAL SC SCH (17:30)
--- NOTE | 2019-03-26 17:37 | CONS ---
Assessment/Plan Assessment/Plan Assessment/Plan (Daily) Assessment/Plan Assessment/Plan Hospital Course (Demo Recall) 1. Anemia of chronic disease --per DR Kiser note "pt is noted to have a macrocytic anemia which is mostly likely 2/2 underlying myelodysplastic syndrome" 2. Chronic kidney disease. 3. Hypertension. 4. Paroxysmal atrial fibrillation. 5. Cerebrovascular accident. 6. Possible meningioma. 7. Vent dependent respiratory failure. 8. Dysphagia, status post G-tube. 9. S/P colonoscopy 03/20 -found severe diverticulosis of left side of colon with spasm and poor prep 10. Walled off diverticular perforation abscess - no free air, could be also fistula. CT abd 03/21: 1. Sigmoid diverticulosis with a focal area of abnormal wall thickening of the proximal sigmoid colon with an adjacent gas containing fluid collection measuring 3.1 x 3.2 x 8.5 cm extending along the left iliopsoas/iliacus muscles. This could represent peridiverticular abscess/contained perforation. No additional fluid collection is identified in the remainder of the abdomen. 2. Complete atelectasis of the left lower lobe. Query mucus plugging. Consider bronchoscopy for further evaluation. 3. Unchanged left adrenal nodule. 4. Cholelithiasis. 5. Splenomegaly. 6. Peg tube is in satisfactory position. 7. Multiple bilateral renal cysts. 8. Aortoiliac vascular calcifications with no aneurysmal dilatation. PLAN: Surgical consult to clear patient to restart tube feeds IR needs to aspirate abscess. Awaiting response from IR Hold Tube feeds until surgery clears pt Consultation Date/Type/Reason Admit Date/Time March 17, 2019 at 14:33 Initial Consult Date 03/18/19 Requesting Provider: JAYLEN LUGO MD Date/Time of Note DATE: 03/26/19 TIME: 17:36 24 HR Interval Summary Subjective hx not possible: pt non-verbal Constitutional: improved Exam/Review of Systems Exam Vitals Vital Signs Date Temp Pulse Resp B/P (MAP) Pulse Ox O2 O2 Flow FiO2 Time Delivery Rate 03/26/19 60 20 100 30 17:04 03/26/19 98.5 138/62 16:49 (87) 03/26/19 Mechanical 11:40 Ventilator 03/22/19 2.0 20:00 Intake and Output 03/25/19 03/25/19 03/26/19 1515:00 23:00 07:00 IntakeIntake Total 1550 ml OutputOutput Total 200 ml 1500 ml BalanceBalance -200 ml 50 ml Constitutional: frail ENMT: intubated Respiratory: diminished breath sounds Cardiovascular: regular rate and rhythm, nl pulses Gastrointestinal: soft, nl liver, spleen, non-tender Extremities: normal pulses Neurological: unresponsive Results Result Diagram: 03/24/19 0847 03/25/19 0550 Results 24hrs Laboratory Tests Test 03/26/19 14:57 Thyroid Stimulating Hormone (TSH) 0.822 Digoxin Level 0.4 L Medications Medication Current Medications Acetaminophen (Tylenol Liquid) 650 mg Q4H PRN GTB MILD PAIN 1-3; Start 03/17/19 at 21:30 Bisacodyl (Dulcolax Supp) 10 mg DAILY PRN [place] CONSTIPATION; Start 03/17/19 at 21:00 Chlorhexidine Gluconate (Peridex) 15 ml Q12H MM Last administered on 03/26/19at 10:04; Admin Dose 15 ML; Start 03/17/19 at 21:00 Digoxin (Digoxin) 0.125 mg DAILY@13 PO Last administered on 03/24/19 15:14; Admin Dose 0.125 MG; Start 03/18/19 at 13:00 Docusate Sodium (Colace) 100 mg DAILY PO Last administered on 03/26/19 10:04; Admin Dose 100 MG; Start 03/18/19 at 09:00 Levetiracetam (Keppra Liquid) 250 mg Q12H GTB Last administered on 03/26/19 10:04; Admin Dose 250 MG; Start 03/17/19 at 21:00 Magnesium Hydroxide (Milk Of Mag) 30 ml DAILY PRN GTB CONSTIPATION; Start 03/17/19 at 21:00 Metoprolol Tartrate (Lopressor) 25 mg BID GTB Last administered on 03/25/19 21:50; Admin Dose 25 MG; Start 03/17/19 at 21:00 Lansoprazole (Prevacid) 30 mg DAILY@06 GTB Last administered on 03/26/19 05:38; Admin Dose 30 MG; Start 03/18/19 at 06:00 Epoetin Amor-epbx (RETACRIT(non-esrd)) 40,000 unit We@1700 SC Last administered on 03/26/19 17:30; Admin Dose 40,000 UNIT; Start 03/19/19 at 17:00 Multivit/Ca Carb/ B Cmplx/FA/Prenat (Renee-Antonio) 1 tab DAILY GTB Last administered on 03/26/19 10:04; Admin Dose 1 TAB; Start 03/21/19 at 09:00 Zinc Sulfate (Zinc Sulfate) 220 mg DAILY GTB Last administered on 03/26/19 10:04; Admin Dose 220 MG; Start 03/21/19 at 09:00 Collagenase (Santyl) 1 applic BID TOP Last administered on 03/26/19 10:04; Admin Dose 1 APPLIC; Start 03/20/19 at 16:28 Vancomycin HCl (Vanco Iv Per Pharmacy) VANCOMYCIN PER PHARMACY PER PROTOCOL XX ; Start 03/23/19 at 06:30 Piperacillin Sod/ Tazobactam Sod 100 ml @ 200 mls/hr Q6 IVPB Last administered on 03/26/19 17:30; Admin Dose 200 MLS/HR; Start 03/23/19 at 06:30 Vancomycin HCl 250 ml @ 125 mls/hr Q48H IVPB Last administered on 03/25/19 09:53; Admin Dose 125 MLS/HR; Start 03/25/19 at 08:00 Dextrose/Sodium Chloride 1,000 ml @ 75 mls/hr [id number] IV Last administered on 03/26/19 14:31; Admin Dose 75 MLS/HR; Start 03/23/19 at 19:30 Acetylcysteine (Mucomyst) 2 ml Q6H RESP THERAPY NEB Last administered on 03/26/19 14:45; Admin Dose 2 ML; Start 03/24/19 at 11:00 Levalbuterol (Xopenex Hfa) 2 puff Q6H RESP THERAPY INH Last administered on 03/26/19 14:44; Admin Dose 2 PUFF; Start 03/24/19 at 14:00 TYSON ALICEA MD March 26, 2019 17:37
[2019-03-27] VITALS (23 sets, daily range): BP systolic 125–143; BP diastolic 59–61; PULSE 50–99; RESP 16–21
[2019-03-27] MEDS: LEVALBUTEROL (HFA) 15 GM INHALER INH SCH ×4 (01:06→20:55)
[2019-03-27] MEDS: ACETYLCYSTEINE 20% 4 ML VIAL NEB SCH ×4 (01:06→20:55)
--- NOTE | 2019-03-27 02:53 | PN ---
Date/Time of Note Date/Time of Note DATE: 03/26/19 TIME: 22:52 Assessment/Plan Lines/Catheters IV Catheter Type (from [facility]): Peripheral IV Damon in Place (from [facility]): Yes Assessment/Plan Chief Complaint/Hosp Course 1. Sigmoid diverticulosis with a focal area of abnormal wall thickening of the proximal sigmoid colon with an adjacent gas containing fluid collection measuring 3.1 x 3.2 x 8.5 cm extending along the left iliopsoas/iliacus muscles. This could represent peridiverticular abscess/contained perforation. Not drainable per IR. Family does not want aggressive measures (OR) -abx -supportive -nutrition -obs Thank you, Late entry 03/26 Exam/Review of Systems Vital Signs Vitals Vital Signs Date Temp Pulse Resp B/P (MAP) Pulse Ox O2 O2 Flow FiO2 Time Delivery Rate 03/27/19 61 20 100 30 01:06 03/27/19 98.2 126/61 00:25 (82) 03/26/19 Mechanical 11:40 Ventilator Intake and Output 03/26/19 03/26/19 03/27/19 1515:00 23:00 07:00 IntakeIntake Total 100 ml OutputOutput Total 600 ml BalanceBalance -500 ml Results Result Diagram: 03/24/19 0847 03/25/19 0550 MARÍA ELENA MARTINEZ MD March 27, 2019 02:53
[2019-03-27] MEDS: DEXTROSE 5%-0.45% NACL 1,000 ML IV SCH ×2 (03:30→05:14)
[2019-03-27] MEDS: LANSOPRAZOLE 30 MG CAP GTB SCH (05:13)
[2019-03-27] MEDS: PIPER-TAZO 3.375 GM IV (PMX) 100 ML IVPB SCH ×3 (05:13→18:54)
--- NOTE | 2019-03-27 09:09 | PN ---
DATE: 03/27/2019 SUBJECTIVE: The patient is stable. No events overnight. OBJECTIVE: VITAL SIGNS: Blood pressure is 125/59, pulse 67, respirations 16, temperature 98.4. HEENT: Head is normocephalic. NECK: Supple. HEART: Regular rate. LUNGS: Show diminished breath sounds at the base. ABDOMEN: Soft, nontender to palpation without rebound or guarding. EXTREMITIES: Negative for clubbing, cyanosis, no edema. DERMATOLOGIC: No rashes. MUSCULOSKELETAL: No joint effusions. NEUROLOGIC: No change in exam. MEDICATIONS: Have been reviewed. LABORATORY DATA: Has been reviewed. ASSESSMENT AND PLAN: 1. Chronic kidney disease, stage III. Renal function is stable. Continue current treatment plan, s upportive care, renally dose all meds. 2. Hypokalemia. We will replete with potassium chloride. 3. Anemia. Continue to monitor hemoglobin and hematocrit levels. 4. Mineral bone disorder. Monitor calcium and phosphorus levels. 5. Hypertension. Continue current blood pressure regimen. 6. Sigmoid diverticulosis with intra-abdominal abscess. The patient has been seen by general surger y, no plans for surgery at this time. Continue antibiotic therapy. 7. Ventilator-dependent respiratory failure. Vent settings have been reviewed. Continue to monitor . Follow up with pulmonary. 8. Dysphagia. Continue tube feeding. 9. Chronic encephalopathy. No change. 10. Seizure disorder. Continue current medical management. Dictated By: RAJINDER ATWOOD DO NR/NTS Conf#: [id number] DID#: [id number] CC: JAYLEN LUGO MD;*EndCC*
[2019-03-27] MEDS: COLLAGENASE 5 GM (UD JAR) TOP SCH ×2 (10:20→20:26)
[2019-03-27] MEDS: LEVETIRACETAM (100 MG/ML) 5ML CUP GTB SCH ×2 (10:20→20:25)
[2019-03-27] MEDS: VANCOMYCIN 1 GM 250 ML IVPB SCH (10:20)
[2019-03-27] MEDS: MULTIVIT/CA CARB/B CMPLX/FA TAB GTB SCH (10:20)
[2019-03-27] MEDS: CHLORHEXIDINE GLUCONATE 15 ML UD CUP MM SCH ×2 (10:20→20:26)
[2019-03-27] MEDS: DOCUSATE SODIUM 100 MG CAP PO SCH (10:20)
[2019-03-27] MEDS: ZINC SULFATE 220 MG CAP GTB SCH (10:21)
[2019-03-27] MEDS: METOPROLOL 25 MG TAB GTB SCH ×2 (10:22→20:26)
[2019-03-27] MEDS: TRIAMCINOLONE ACET 0.1% 15 GM CR TOP SCH ×2 (10:22→20:27)
[2019-03-27] MEDS: POTASSIUM CHLORIDE 100 ML IVPB SCH ×2 (10:50→10:51)
--- NOTE | 2019-03-27 11:59 | CONS ---
Assessment/Plan Assessment/Plan Hospital Course (Demo Recall) IMP: 1.PVC-ongoing. EF 65% by echo 10/29. neg trop x 3 2.Bradycardia-to 50's 3.HTN 4.REsp failure-chronic s/p trach 5.SVT-short run. NO recurrence 6.anemia Recc: -Tele -Continue low dose BB as tolerated only -Continue abx's and f/u cx data -Continue digoxin Consultation Date/Type/Reason Admit Date/Time March 17, 2019 at 14:33 Initial Consult Date 03/18/19 Type of Consult Cardiology Reason for Consultation PVC Requesting Provider: JAYLEN LUGO MD Date/Time of Note DATE: 03/27/19 TIME: 11:56 Exam/Review of Systems Vital Signs Vitals Vital Signs Date Temp Pulse Resp B/P (MAP) Pulse Ox O2 O2 Flow FiO2 Time Delivery Rate 03/27/19 59 21 100 30 11:11 03/27/19 98.4 125/59 Mechanical 07:45 (81) Ventilator Intake and Output 03/26/19 03/26/19 03/27/19 1515:00 23:00 07:00 IntakeIntake Total 100 ml 150 ml OutputOutput Total 600 ml 300 ml BalanceBalance -500 ml -150 ml Exam Exam Review of Systems: CONSTITUTIONAL: No fevers, chills. PULMONARY: No sob CARDIOVASCULAR: No chest pain/palpitations GASTROINTESTINAL: No nausea/vomiting. GENITOURINARY: No hematuria/dysuria. MUSCULOSKELETAL: No myagias/arthalgias. PSYCHIATRIC: The patient denies depression. NEUROLOGIC: lethargic Constitutional: alert Psych: no complaints ENMT: mucosa pink and moist Neck: other (trached) Respiratory: diminished breath sounds (at bases/B) Cardiovascular: regular rate and rhythm Gastrointestinal: soft, non-tender Musculoskeletal: muscle tone (normal) Extremities: edema (none) Neurological: other (No focal deficicts) Labs Result Diagram: 03/27/19 0539 03/27/19 0539 Results 24hrs Laboratory Tests Test 03/26/19 14:57 03/26/19 17:36 03/27/19 00:30 03/27/19 05:39 Thyroid 0.822 Stimulating Hormone (TSH) Digoxin Level 0.4 L Troponin I 0.013 0.020 White Blood Count 5.7 # Red Blood Count 2.76 L Hemoglobin 8.6 L Hematocrit 28.3 L Mean Corpuscular 102.5 H Volume Mean Corpuscular 31.2 Hemoglobin Mean Corpuscular 30.4 L Hemoglobin Concen t Red Cell 18.3 H Distribution Width Platelet Count 320 Mean Platelet 8.8 Volume Immature 0.900 H Granulocytes % Neutrophils % 67.0 Lymphocytes % 25.2 Monocytes % 4.6 Eosinophils % 1.9 Basophils % 0.4 Nucleated Red 0.0 Blood Cells % Immature 0.050 H Granulocytes # Neutrophils # 3.8 Lymphocytes # 1.4 Monocytes # 0.3 Eosinophils # 0.1 Basophils # 0.0 Nucleated Red 0.0 Blood Cells # Sodium Level 141 Potassium Level 2.9 *L Chloride Level 117 H Carbon Dioxide 18 L Level Anion Gap 6 Blood Urea 11 # Nitrogen Creatinine 0.81 Est Glomerular Filtrat Rate mL/min Glucose Level 80 Calcium Level 8.1 L Test 03/27/19 07:16 Lab Scanned BLOOD TRANSFUSIO Report N Medications Medications Current Medications Acetaminophen (Tylenol Liquid) 650 mg Q4H PRN GTB MILD PAIN 1-3; Start 03/17/19 at 21:30 Bisacodyl (Dulcolax Supp) 10 mg DAILY PRN [place] CONSTIPATION; Start 03/17/19 at 21:00 Chlorhexidine Gluconate (Peridex) 15 ml Q12H MM Last administered on 03/27/19at 10:20; Admin Dose 15 ML; Start 03/17/19 at 21:00 Digoxin (Digoxin) 0.125 mg DAILY@13 PO Last administered on 03/24/19at 15:14; Admin Dose 0.125 MG; Start 03/18/19 at 13:00 Docusate Sodium (Colace) 100 mg DAILY PO Last administered on 03/27/19 10:20; Admin Dose 100 MG; Start 03/18/19 at 09:00 Levetiracetam (Keppra Liquid) 250 mg Q12H GTB Last administered on 03/27/19 10:20; Admin Dose 250 MG; Start 03/17/19 at 21:00 Magnesium Hydroxide (Milk Of Mag) 30 ml DAILY PRN GTB CONSTIPATION; Start 03/17/19 at 21:00 Metoprolol Tartrate (Lopressor) 25 mg BID GTB Last administered on 03/27/19at 10:22; Admin Dose 25 MG; Start 03/17/19 at 21:00 Lansoprazole (Prevacid) 30 mg DAILY@06 GTB Last administered on 03/27/19 05:13; Admin Dose 30 MG; Start 03/18/19 at 06:00 Epoetin Amor-epbx (RETACRIT(non-esrd)) 40,000 unit We@1700 SC Last administered on 03/26/19 17:30; Admin Dose 40,000 UNIT; Start 03/19/19 at 17:00 Multivit/Ca Carb/ B Cmplx/FA/Prenat (Renee-Antonio) 1 tab DAILY GTB Last administered on 03/27/19 10:20; Admin Dose 1 TAB; Start 03/21/19 at 09:00 Zinc Sulfate (Zinc Sulfate) 220 mg DAILY GTB Last administered on 03/27/19 10:21; Admin Dose 220 MG; Start 03/21/19 at 09:00 Collagenase (Santyl) 1 applic BID TOP Last administered on 03/27/19 10:20; Admin Dose 1 APPLIC; Start 03/20/19 at 16:28 Vancomycin HCl (Vanco Iv Per Pharmacy) VANCOMYCIN PER PHARMACY PER PROTOCOL XX ; Start 03/23/19 at 06:30 Piperacillin Sod/ Tazobactam Sod 100 ml @ 200 mls/hr Q6 IVPB Last administered on 03/27/19 05:13; Admin Dose 200 MLS/HR; Start 03/23/19 at 06:30 Vancomycin HCl 250 ml @ 125 mls/hr Q48H IVPB Last administered on 03/27/19 10:20; Admin Dose 125 MLS/HR; Start 03/25/19 at 08:00 Acetylcysteine (Mucomyst) 2 ml Q6H RESP THERAPY NEB Last administered on 03/27/19 07:27; Admin Dose 2 ML; Start 03/24/19 at 11:00 Levalbuterol (Xopenex Hfa) 2 puff Q6H RESP THERAPY INH Last administered on 03/27/19 07:16; Admin Dose 2 PUFF; Start 03/24/19 at 14:00 Triamcinolone Acetonide (Kenalog 0.1% Cr) 1 applic BID TOP Last administered on 03/27/19 10:22; Admin Dose 1 APPLIC; Start 03/27/19 at 09:00 Potassium Chloride 100 ml @ 50 mls/hr Q2H IVPB Last administered on 03/27/19at 10:51; Admin Dose 50 MLS/HR; Start 03/27/19 at 08:00; Stop 03/27/19 at 11:59 Potassium Chloride/Dextrose/ Sod Cl 1,000 ml @ 75 mls/hr [id number] IV ; Start 03/27/19 at 08:00 LUIS FERGUSON March 27, 2019 11:59
[2019-03-27] MEDS: D5W-0.45 NACL + KCL 40 MEQ 1,000 ML IV SCH ×2 (12:07→21:20)
[2019-03-27] MEDS: DIGOXIN 0.125 MG TAB PO SCH (13:16)
--- NOTE | 2019-03-27 13:45 | CONS ---
Assessment/Plan Assessment/Plan Hospital Course (Demo Recall) No acute changes overnight patient is noncommunicative in no distress no fevers Indwelling: Trach, PEG, Damon Antimicrobials: Vancomycin, Zosyn Physical examination: Chronically ill-appearing elderly woman in no distress. Head atraumatic normocephalic neck is supple tracheostomy present chest rise symmetrical breath sounds diminished bases. Heart: S1-S2. Abdomen soft bowel sounds present. Assessment: 1. Sigmoid diverticulosis with abscess 2. Left lower lobe atelectasis ? PNA 3. Chronic respiratory failure and dysphagia 4. Seizure disorder 5. Acute on chronic encephalopathy 6. Chronic kidney disease 7. Urinary tract infection as per urinalysis Plan: Clinically unchanged, continue antibiotics, await for surgical evaluation, GI recommendations noted Consultation Date/Type/Reason Admit Date/Time March 17, 2019 at 14:33 Initial Consult Date 03/18/19 Type of Consult id Requesting Provider: JAYLEN LUGO MD Date/Time of Note DATE: 03/27/19 TIME: 13:44 Exam/Review of Systems Exam Vitals Vital Signs Date Temp Pulse Resp B/P (MAP) Pulse Ox O2 O2 Flow FiO2 Time Delivery Rate 03/27/19 52 20 100 30 13:23 03/27/19 98.7 137/61 Mechanical 12:19 (86) Ventilator Intake and Output 03/26/19 03/26/19 03/27/19 1515:00 23:00 07:00 IntakeIntake Total 100 ml 150 ml OutputOutput Total 600 ml 300 ml BalanceBalance -500 ml -150 ml Results Result Diagram: 03/27/19 0539 03/27/19 0539 Results 24hrs Laboratory Tests Test 03/26/19 14:57 03/26/19 17:36 03/27/19 00:30 03/27/19 05:39 Thyroid 0.822 Stimulating Hormone (TSH) Digoxin Level 0.4 L Troponin I 0.013 0.020 White Blood Count 5.7 # Red Blood Count 2.76 L Hemoglobin 8.6 L Hematocrit 28.3 L Mean Corpuscular 102.5 H Volume Mean Corpuscular 31.2 Hemoglobin Mean Corpuscular 30.4 L Hemoglobin Concen t Red Cell 18.3 H Distribution Width Platelet Count 320 Mean Platelet 8.8 Volume Immature 0.900 H Granulocytes % Neutrophils % 67.0 Lymphocytes % 25.2 Monocytes % 4.6 Eosinophils % 1.9 Basophils % 0.4 Nucleated Red 0.0 Blood Cells % Immature 0.050 H Granulocytes # Neutrophils # 3.8 Lymphocytes # 1.4 Monocytes # 0.3 Eosinophils # 0.1 Basophils # 0.0 Nucleated Red 0.0 Blood Cells # Sodium Level 141 Potassium Level 2.9 *L Chloride Level 117 H Carbon Dioxide 18 L Level Anion Gap 6 Blood Urea 11 # Nitrogen Creatinine 0.81 Est Glomerular Filtrat Rate mL/min Glucose Level 80 Calcium Level 8.1 L Test 03/27/19 07:16 Lab Scanned BLOOD TRANSFUSIO Report N Medications Medication Current Medications Acetaminophen (Tylenol Liquid) 650 mg Q4H PRN GTB MILD PAIN 1-3; Start 03/17/19 at 21:30 Bisacodyl (Dulcolax Supp) 10 mg DAILY PRN [place] CONSTIPATION; Start 03/17/19 at 21:00 Chlorhexidine Gluconate (Peridex) 15 ml Q12H MM Last administered on 03/27/19 10:20; Admin Dose 15 ML; Start 03/17/19 at 21:00 Digoxin (Digoxin) 0.125 mg DAILY@13 PO Last administered on 03/27/19 13:16; Admin Dose 0.125 MG; Start 03/18/19 at 13:00 Docusate Sodium (Colace) 100 mg DAILY PO Last administered on 03/27/19 10:20; Admin Dose 100 MG; Start 03/18/19 at 09:00 Levetiracetam (Keppra Liquid) 250 mg Q12H GTB Last administered on 03/27/19 10:20; Admin Dose 250 MG; Start 03/17/19 at 21:00 Magnesium Hydroxide (Milk Of Mag) 30 ml DAILY PRN GTB CONSTIPATION; Start 03/17/19 at 21:00 Metoprolol Tartrate (Lopressor) 25 mg BID GTB Last administered on 03/27/19at 10:22; Admin Dose 25 MG; Start 03/17/19 at 21:00 Lansoprazole (Prevacid) 30 mg DAILY@06 GTB Last administered on 03/27/19at 05:13; Admin Dose 30 MG; Start 03/18/19 at 06:00 Epoetin Amor-epbx (RETACRIT(non-esrd)) 40,000 unit We@1700 SC Last administered on 03/26/19 17:30; Admin Dose 40,000 UNIT; Start 03/19/19 at 17:00 Multivit/Ca Carb/ B Cmplx/FA/Prenat (Renee-Antonio) 1 tab DAILY GTB Last administered on 03/27/19 10:20; Admin Dose 1 TAB; Start 03/21/19 at 09:00 Zinc Sulfate (Zinc Sulfate) 220 mg DAILY GTB Last administered on 03/27/19 10:21; Admin Dose 220 MG; Start 03/21/19 at 09:00 Collagenase (Santyl) 1 applic BID TOP Last administered on 03/27/19 10:20; Admin Dose 1 APPLIC; Start 03/20/19 at 16:28 Vancomycin HCl (Vanco Iv Per Pharmacy) VANCOMYCIN PER PHARMACY PER PROTOCOL XX ; Start 03/23/19 at 06:30 Piperacillin Sod/ Tazobactam Sod 100 ml @ 200 mls/hr Q6 IVPB Last administered on 03/27/19 13:16; Admin Dose 200 MLS/HR; Start 03/23/19 at 06:30 Vancomycin HCl 250 ml @ 125 mls/hr Q48H IVPB Last administered on 03/27/19 10:20; Admin Dose 125 MLS/HR; Start 03/25/19 at 08:00 Acetylcysteine (Mucomyst) 2 ml Q6H RESP THERAPY NEB Last administered on 03/27/19 13:26; Admin Dose 2 ML; Start 03/24/19 at 11:00 Levalbuterol (Xopenex Hfa) 2 puff Q6H RESP THERAPY INH Last administered on 03/27/19 13:23; Admin Dose 2 PUFF; Start 03/24/19 at 14:00 Triamcinolone Acetonide (Kenalog 0.1% Cr) 1 applic BID TOP Last administered on 03/27/19 10:22; Admin Dose 1 APPLIC; Start 03/27/19 at 09:00 Potassium Chloride/Dextrose/ Sod Cl 1,000 ml @ 75 mls/hr [id number] IV Last administered on 03/27/19 12:07; Admin Dose 75 MLS/HR; Start 03/27/19 at 08:00 DEBO UMANA NP March 27, 2019 13:45
--- NOTE | 2019-03-27 13:46 | CONS ---
Assessment/Plan Assessment/Plan Hospital Course (Demo Recall) 73 yo with #Anemia -Hg ok at 8.6 today -pt is noted to have a macrocytic anemia which is mostly likely 2/2 underlying myelodysplastic syndrome -continue epogen 40,000 units weekly -iron panel reveals mild iron deficiency. s/p ferrilict -vitamin b12 and folate levels are ok -past workup for anemia reveals a negative SPEP and no signs of hemolysis. will however recheck LDH, haptoglobin and retic -f/u colonoscopy results # fluid collection -measuring 3.1 x 3.2 x 8.5 cm extending along the left iliopsoas/iliacus muscles. This could represent peridiverticular abscess/contained perforation. -IR to drain -pt is currently on vancomycin and zosyn Consultation Date/Type/Reason Admit Date/Time March 17, 2019 at 14:33 Initial Consult Date 03/18/19 Type of Consult hematology Reason for Consultation anemia Requesting Provider: JAYLEN LUGO MD Date/Time of Note DATE: 03/27/19 TIME: 13:44 24 HR Interval Summary Free Text/Dictation no acute overnight events Exam/Review of Systems Exam Vitals Vital Signs Date Temp Pulse Resp B/P (MAP) Pulse Ox O2 O2 Flow FiO2 Time Delivery Rate 03/27/19 52 20 100 30 13:23 03/27/19 98.7 137/61 Mechanical 12:19 (86) Ventilator Intake and Output 03/26/19 03/26/19 03/27/19 1515:00 23:00 07:00 IntakeIntake Total 100 ml 150 ml OutputOutput Total 600 ml 300 ml BalanceBalance -500 ml -150 ml Constitutional: alert Psych: confusion, depression Head: normocephalic Eyes: nl conjunctiva ENMT: nl external ears & nose Neck: supple Respiratory: clear to auscultation Cardiovascular: regular rate and rhythm Gastrointestinal: soft Musculoskeletal: nl extremities to inspection Results Result Diagram: 03/27/19 0539 03/27/19 0539 Results 24hrs Laboratory Tests Test 03/26/19 14:57 03/26/19 17:36 03/27/19 00:30 03/27/19 05:39 Thyroid 0.822 Stimulating Hormone (TSH) Digoxin Level 0.4 L Troponin I 0.013 0.020 White Blood Count 5.7 # Red Blood Count 2.76 L Hemoglobin 8.6 L Hematocrit 28.3 L Mean Corpuscular 102.5 H Volume Mean Corpuscular 31.2 Hemoglobin Mean Corpuscular 30.4 L Hemoglobin Concen t Red Cell 18.3 H Distribution Width Platelet Count 320 Mean Platelet 8.8 Volume Immature 0.900 H Granulocytes % Neutrophils % 67.0 Lymphocytes % 25.2 Monocytes % 4.6 Eosinophils % 1.9 Basophils % 0.4 Nucleated Red 0.0 Blood Cells % Immature 0.050 H Granulocytes # Neutrophils # 3.8 Lymphocytes # 1.4 Monocytes # 0.3 Eosinophils # 0.1 Basophils # 0.0 Nucleated Red 0.0 Blood Cells # Sodium Level 141 Potassium Level 2.9 *L Chloride Level 117 H Carbon Dioxide 18 L Level Anion Gap 6 Blood Urea 11 # Nitrogen Creatinine 0.81 Est Glomerular Filtrat Rate mL/min Glucose Level 80 Calcium Level 8.1 L Test 03/27/19 07:16 Lab Scanned BLOOD TRANSFUSIO Report N Medications Medication Current Medications Acetaminophen (Tylenol Liquid) 650 mg Q4H PRN GTB MILD PAIN 1-3; Start 03/17/19 at 21:30 Bisacodyl (Dulcolax Supp) 10 mg DAILY PRN [place] CONSTIPATION; Start 03/17/19 at 21:00 Chlorhexidine Gluconate (Peridex) 15 ml Q12H MM Last administered on 03/27/19at 10:20; Admin Dose 15 ML; Start 03/17/19 at 21:00 Digoxin (Digoxin) 0.125 mg DAILY@13 PO Last administered on 03/27/19at 13:16; Admin Dose 0.125 MG; Start 03/18/19 at 13:00 Docusate Sodium (Colace) 100 mg DAILY PO Last administered on 03/27/19at 10:20; Admin Dose 100 MG; Start 03/18/19 at 09:00 Levetiracetam (Keppra Liquid) 250 mg Q12H GTB Last administered on 03/27/19 10:20; Admin Dose 250 MG; Start 03/17/19 at 21:00 Magnesium Hydroxide (Milk Of Mag) 30 ml DAILY PRN GTB CONSTIPATION; Start 03/17/19 at 21:00 Metoprolol Tartrate (Lopressor) 25 mg BID GTB Last administered on 03/27/19at 10:22; Admin Dose 25 MG; Start 03/17/19 at 21:00 Lansoprazole (Prevacid) 30 mg DAILY@06 GTB Last administered on 03/27/19 05:13; Admin Dose 30 MG; Start 03/18/19 at 06:00 Epoetin Amor-epbx (RETACRIT(non-esrd)) 40,000 unit We@1700 SC Last administered on 03/26/19 17:30; Admin Dose 40,000 UNIT; Start 03/19/19 at 17:00 Multivit/Ca Carb/ B Cmplx/FA/Prenat (Renee-Antonio) 1 tab DAILY GTB Last administered on 03/27/19 10:20; Admin Dose 1 TAB; Start 03/21/19 at 09:00 Zinc Sulfate (Zinc Sulfate) 220 mg DAILY GTB Last administered on 03/27/19 10:21; Admin Dose 220 MG; Start 03/21/19 at 09:00 Collagenase (Santyl) 1 applic BID TOP Last administered on 03/27/19 10:20; Admin Dose 1 APPLIC; Start 03/20/19 at 16:28 Vancomycin HCl (Vanco Iv Per Pharmacy) VANCOMYCIN PER PHARMACY PER PROTOCOL XX ; Start 03/23/19 at 06:30 Piperacillin Sod/ Tazobactam Sod 100 ml @ 200 mls/hr Q6 IVPB Last administered on 03/27/19 13:16; Admin Dose 200 MLS/HR; Start 03/23/19 at 06:30 Vancomycin HCl 250 ml @ 125 mls/hr Q48H IVPB Last administered on 03/27/19 10:20; Admin Dose 125 MLS/HR; Start 03/25/19 at 08:00 Acetylcysteine (Mucomyst) 2 ml Q6H RESP THERAPY NEB Last administered on 03/27/19 13:26; Admin Dose 2 ML; Start 03/24/19 at 11:00 Levalbuterol (Xopenex Hfa) 2 puff Q6H RESP THERAPY INH Last administered on 03/27/19 13:23; Admin Dose 2 PUFF; Start 03/24/19 at 14:00 Triamcinolone Acetonide (Kenalog 0.1% Cr) 1 applic BID TOP Last administered on 03/27/19 10:22; Admin Dose 1 APPLIC; Start 03/27/19 at 09:00 Potassium Chloride/Dextrose/ Sod Cl 1,000 ml @ 75 mls/hr [id number] IV Last administered on 03/27/19at 12:07; Admin Dose 75 MLS/HR; Start 03/27/19 at 08:00 IJEOMA GROSSMAN M.D. March 27, 2019 13:46
--- NOTE | 2019-03-27 14:25 | PN ---
Date/Time of Note Date/Time of Note DATE: 03/27/19 TIME: 14:22 Assessment/Plan VTE Prophylaxis Risk score (from [facility])>0 risk: 10 SCD applied (from [facility]): Yes Pharmacological prophylaxis: NA/contraindicated Pharm contraindication: anticoag not tolerated Lines/Catheters IV [facility] Type [facility] Peripheral IV Urinary Cath still in place: Yes Reason Cath still needed: urinary retention Assessment/Plan Hospital Course Hypokalemia, potassium was replaced, patient is continued on IV fluids. Assessment/Plan -Diverticular abscess, Dr Mario is following in surgical consultation. Continue NPO, IVF. -Severe diverticulosis with spasm per colonoscopy. Dr. Galdamez is following in gastroenterology consultation. -Anemia. Stool for OB neg. Continue Epogen and Iron supplementation. Dr. Kiser is following in hematology consultation -Ventilator dependent respiratory failure with tracheostomy. Dr. Davenport is following in pulmonology consultation. -Acute on chronic kidney disease. Monitor BUN and creatinine. Dr. Grant is following in nephrology consultation -Atrial fibrillation, continue metoprolol -Diastolic congestive heart failure. Dr. Hernandez is following in cardiology consultation. -Pulmonary fibrosis, continue Pulmicort. -Dysphagia with G-tube. -Chronic encephalopathy -COPD -History of CVA, continue aspirin. -Seizure disorder/status epilepticus. Continue Keppra and Ativan as needed. -MRSA nares colonization Further recommendations based on clinical course. Plan of care discussed with Dr. Phillips. Result Diagram: 03/27/19 0539 03/27/19 0539 Results 24hrs Laboratory Tests Test 03/26/19 14:57 03/26/19 17:36 03/27/19 00:30 03/27/19 05:39 Thyroid 0.822 Stimulating Hormone (TSH) Digoxin Level 0.4 L Troponin I 0.013 0.020 White Blood Count 5.7 # Red Blood Count 2.76 L Hemoglobin 8.6 L Hematocrit 28.3 L Mean Corpuscular 102.5 H Volume Mean Corpuscular 31.2 Hemoglobin Mean Corpuscular 30.4 L Hemoglobin Concen t Red Cell 18.3 H Distribution Width Platelet Count 320 Mean Platelet 8.8 Volume Immature 0.900 H Granulocytes % Neutrophils % 67.0 Lymphocytes % 25.2 Monocytes % 4.6 Eosinophils % 1.9 Basophils % 0.4 Nucleated Red 0.0 Blood Cells % Immature 0.050 H Granulocytes # Neutrophils # 3.8 Lymphocytes # 1.4 Monocytes # 0.3 Eosinophils # 0.1 Basophils # 0.0 Nucleated Red 0.0 Blood Cells # Sodium Level 141 Potassium Level 2.9 *L Chloride Level 117 H Carbon Dioxide 18 L Level Anion Gap 6 Blood Urea 11 # Nitrogen Creatinine 0.81 Est Glomerular Filtrat Rate mL/min Glucose Level 80 Calcium Level 8.1 L Test 03/27/19 07:16 Lab Scanned BLOOD TRANSFUSIO Report N Exam/Review of Systems Exam Vitals Vital Signs Date Temp Pulse Resp B/P (MAP) Pulse Ox O2 O2 Flow FiO2 Time Delivery Rate 03/27/19 52 20 100 30 13:23 03/27/19 98.7 137/61 Mechanical 12:19 (86) Ventilator Intake and Output 03/26/19 03/26/19 03/27/19 1515:00 23:00 07:00 IntakeIntake Total 100 ml 150 ml OutputOutput Total 600 ml 300 ml BalanceBalance -500 ml -150 ml Exam Constitutional: frail Neck: other (trach) Respiratory: diminished breath sounds Cardiovascular: regular rate and rhythm Gastrointestinal: soft, non-tender, other (G-tube) Extremities: normal pulses Neurological: lethargic Results Results 24hrs Laboratory Tests Test 03/26/19 14:57 03/26/19 17:36 03/27/19 00:30 03/27/19 05:39 Thyroid 0.822 Stimulating Hormone (TSH) Digoxin Level 0.4 L Troponin I 0.013 0.020 White Blood Count 5.7 # Red Blood Count 2.76 L Hemoglobin 8.6 L Hematocrit 28.3 L Mean Corpuscular 102.5 H Volume Mean Corpuscular 31.2 Hemoglobin Mean Corpuscular 30.4 L Hemoglobin Concen t Red Cell 18.3 H Distribution Width Platelet Count 320 Mean Platelet 8.8 Volume Immature 0.900 H Granulocytes % Neutrophils % 67.0 Lymphocytes % 25.2 Monocytes % 4.6 Eosinophils % 1.9 Basophils % 0.4 Nucleated Red 0.0 Blood Cells % Immature 0.050 H Granulocytes # Neutrophils # 3.8 Lymphocytes # 1.4 Monocytes # 0.3 Eosinophils # 0.1 Basophils # 0.0 Nucleated Red 0.0 Blood Cells # Sodium Level 141 Potassium Level 2.9 *L Chloride Level 117 H Carbon Dioxide 18 L Level Anion Gap 6 Blood Urea 11 # Nitrogen Creatinine 0.81 Est Glomerular Filtrat Rate mL/min Glucose Level 80 Calcium Level 8.1 L Test 03/27/19 07:16 Lab Scanned BLOOD TRANSFUSIO Report N Medications Medication Current Medications Acetaminophen (Tylenol Liquid) 650 mg Q4H PRN GTB MILD PAIN 1-3; Start 03/17/19 at 21:30 Bisacodyl (Dulcolax Supp) 10 mg DAILY PRN [place] CONSTIPATION; Start 03/17/19 at 21:00 Chlorhexidine Gluconate (Peridex) 15 ml Q12H MM Last administered on 03/27/19 10:20; Admin Dose 15 ML; Start 03/17/19 at 21:00 Digoxin (Digoxin) 0.125 mg DAILY@13 PO Last administered on 03/27/19 13:16; Admin Dose 0.125 MG; Start 03/18/19 at 13:00 Docusate Sodium (Colace) 100 mg DAILY PO Last administered on 03/27/19 10:20; Admin Dose 100 MG; Start 03/18/19 at 09:00 Levetiracetam (Keppra Liquid) 250 mg Q12H GTB Last administered on 03/27/19 10:20; Admin Dose 250 MG; Start 03/17/19 at 21:00 Magnesium Hydroxide (Milk Of Mag) 30 ml DAILY PRN GTB CONSTIPATION; Start 03/17/19 at 21:00 Metoprolol Tartrate (Lopressor) 25 mg BID GTB Last administered on 03/27/19 10:22; Admin Dose 25 MG; Start 03/17/19 at 21:00 Lansoprazole (Prevacid) 30 mg DAILY@06 GTB Last administered on 03/27/19 05:13; Admin Dose 30 MG; Start 03/18/19 at 06:00 Epoetin Amor-epbx (RETACRIT(non-esrd)) 40,000 unit We@1700 SC Last administered on 03/26/19 17:30; Admin Dose 40,000 UNIT; Start 03/19/19 at 17:00 Multivit/Ca Carb/ B Cmplx/FA/Prenat (Renee-Antonio) 1 tab DAILY GTB Last administered on 03/27/19 10:20; Admin Dose 1 TAB; Start 03/21/19 at 09:00 Zinc Sulfate (Zinc Sulfate) 220 mg DAILY GTB Last administered on 03/27/19 10:21; Admin Dose 220 MG; Start 03/21/19 at 09:00 Collagenase (Santyl) 1 applic BID TOP Last administered on 03/27/19 10:20; Admin Dose 1 APPLIC; Start 03/20/19 at 16:28 Vancomycin HCl (Vanco Iv Per Pharmacy) VANCOMYCIN PER PHARMACY PER PROTOCOL XX ; Start 03/23/19 at 06:30 Piperacillin Sod/ Tazobactam Sod 100 ml @ 200 mls/hr Q6 IVPB Last administered on 03/27/19 13:16; Admin Dose 200 MLS/HR; Start 03/23/19 at 06:30 Vancomycin HCl 250 ml @ 125 mls/hr Q48H IVPB Last administered on 03/27/19 10:20; Admin Dose 125 MLS/HR; Start 03/25/19 at 08:00 Acetylcysteine (Mucomyst) 2 ml Q6H RESP THERAPY NEB Last administered on 03/27/19 13:26; Admin Dose 2 ML; Start 03/24/19 at 11:00 Levalbuterol (Xopenex Hfa) 2 puff Q6H RESP THERAPY INH Last administered on 03/27/19 13:23; Admin Dose 2 PUFF; Start 03/24/19 at 14:00 Triamcinolone Acetonide (Kenalog 0.1% Cr) 1 applic BID TOP Last administered on 03/27/19 10:22; Admin Dose 1 APPLIC; Start 03/27/19 at 09:00 Potassium Chloride/Dextrose/ Sod Cl 1,000 ml @ 75 mls/hr [id number] IV Last administered on 03/27/19 12:07; Admin Dose 75 MLS/HR; Start 03/27/19 at 08:00 IMER VARGAS March 27, 2019 14:25
--- NOTE | 2019-03-27 16:57 | PN ---
Date/Time of Note Date/Time of Note DATE: 03/27/19 TIME: 16:54 Assessment/Plan Lines/Catheters IV Catheter Type (from [facility]): Peripheral IV Damon in Place (from [facility]): Yes Assessment/Plan Chief Complaint/Hosp Course 1. Sigmoid diverticulosis with a focal area of abnormal wall thickening of the proximal sigmoid colon with an adjacent gas containing fluid collection measuring 3.1 x 3.2 x 8.5 cm extending along the left iliopsoas/iliacus muscles. This could represent peridiverticular abscess/contained perforation. Not drainable per IR. Family does not want aggressive measures (OR) -Continue Abx per ID -supportive -nutrition ok -obs 2. anemia: No overt bleed noted -Monitor and transfuse as needed -Per hematology 3. VDRF: -Pulmonary toilet -Vent management per pulmonary 4. CKD -Limit nephrotoxic meds -Renally dose meds -Per renal 5. Atrial fibrillation history -Rate control 6. Heart failure: -Cardiac optimization 7. Dysphagia with PEG placement -Continue tube feeds with aspiration precautions Thank you. Patient seen and examined in collaboration with Dr. Harry Mario. Subjective 24 Hr Interval Summary Appears comfortable. Nonverbal indicators of pain at present. + Bowel function. No fevers, labored breathing, congested cough, vomiting, abdominal distention, diarrhea, seizure, rash. Exam/Review of Systems Vital Signs Vitals Vital Signs Date Temp Pulse Resp B/P (MAP) Pulse Ox O2 O2 Flow FiO2 Time Delivery Rate 03/27/19 97.9 50 18 143/59 98 Mechanical 15:35 (87) Ventilator 03/27/19 30 15:29 Intake and Output 03/26/19 03/26/19 03/27/19 1515:00 23:00 07:00 IntakeIntake Total 100 ml 150 ml OutputOutput Total 600 ml 300 ml BalanceBalance -500 ml -150 ml Exam Free Text/Dictation Constitutional: alert; No oriented, No distress Psych: nl mood/affect Head: normocephalic, atraumatic Eyes: nl conjunctiva, EOMI, nl lids, nl sclera ENMT: nl external ears & nose, nl lips & teeth, mucosa pink and moist Neck: supple, non-tender, other (Tracheostomy) Respiratory: normal air movement, other (Vent); No congested cough Cardiovascular: regular rate and rhythm Gastrointestinal: soft, non-tender, other (PEG); No distended Genitourinary - Female: nl external genitalia Musculoskeletal: nl extremities to inspection, nl gait and stance Extremities: normal pulses; No edema Neurological: No nl mental status, No nl speech (Nonverbal, noncommunicative), No nl strength, No focal weakness Skin: No rash or lesions Results Result Diagram: 03/27/19 0539 03/27/19 0539 EULA HICKMAN NP March 27, 2019 16:57
--- NOTE | 2019-03-27 17:31 | CONS ---
Assessment/Plan Assessment/Plan Assessment/Plan (Daily) Assessment/Plan Assessment/Plan Assessment/Plan (Daily) Assessment/Plan Assessment/Plan Hospital Course (Demo Recall) 1. Anemia of chronic disease --per DR Kiser note "pt is noted to have a macrocytic anemia which is mostly likely 2/2 underlying myelodysplastic syndrome" 2. Chronic kidney disease. 3. Hypertension. 4. Paroxysmal atrial fibrillation. 5. Cerebrovascular accident. 6. Possible meningioma. 7. Vent dependent respiratory failure. 8. Dysphagia, status post G-tube. 9. S/P colonoscopy 03/20 -found severe diverticulosis of left side of colon with spasm and poor prep 10. Walled off diverticular perforation abscess - no free air, could be also fistula. CT abd 03/21: 1. Sigmoid diverticulosis with a focal area of abnormal wall thickening of the proximal sigmoid colon with an adjacent gas containing fluid collection measuring 3.1 x 3.2 x 8.5 cm extending along the left iliopsoas/iliacus muscles. This could represent peridiverticular abscess/contained perforation. No additional fluid collection is identified in the remainder of the abdomen. 2. Complete atelectasis of the left lower lobe. Query mucus plugging. Consider bronchoscopy for further evaluation. 3. Unchanged left adrenal nodule. 4. Cholelithiasis. 5. Splenomegaly. 6. Peg tube is in satisfactory position. 7. Multiple bilateral renal cysts. 8. Aortoiliac vascular calcifications with no aneurysmal dilatation. PLAN: Surgical consult to clear patient to restart tube feeds IR needs to aspirate abscess. Awaiting response from IR. IR cannot put a drain Hold Tube feeds until surgery clears pt Since the patient is totally asymptomatic and has no evidence of peritonitis we may start feeding through the G-tube and to continue antibiotic Consultation Date/Type/Reason Admit Date/Time March 17, 2019 at 14:33 Initial Consult Date 03/18/19 Requesting Provider: IMER VARGAS Date/Time of Note DATE: 03/27/19 TIME: 17:29 24 HR Interval Summary Constitutional: no complaints Exam/Review of Systems Exam Vitals Vital Signs Date Temp Pulse Resp B/P (MAP) Pulse Ox O2 O2 Flow FiO2 Time Delivery Rate 03/27/19 97.9 50 18 143/59 98 Mechanical 15:35 (87) Ventilator 03/27/19 30 15:29 Intake and Output 03/26/19 03/26/19 03/27/19 1515:00 23:00 07:00 IntakeIntake Total 100 ml 150 ml OutputOutput Total 600 ml 300 ml BalanceBalance -500 ml -150 ml Constitutional: alert, oriented, well developed, non-verbal, frail Psych: no complaints, nl mood/affect Head: normocephalic, atraumatic Eyes: nl conjunctiva, EOMI, nl lids, nl sclera, PERRL ENMT: nl external ears & nose, nl lips & teeth, nl nasal mucosa & septum, intubated Neck: supple, non-tender Respiratory: clear to auscultation, normal air movement Cardiovascular: regular rate and rhythm, nl pulses Gastrointestinal: soft, nl liver, spleen, non-tender Musculoskeletal: nl extremities to inspection, nl gait and stance Extremities: normal pulses Neurological: [employer] EX[employer] II-XII intact, nl mental status, nl speech, nl strength, confused, lethargic Skin: nl turgor; No rash or lesions Lymph: nl lymph nodes Results Result Diagram: 03/27/19 0539 03/27/19 0539 Results 24hrs Laboratory Tests Test 03/26/19 17:36 03/27/19 00:30 03/27/19 05:39 03/27/19 07:16 Troponin I 0.013 0.020 White Blood Count 5.7 # Red Blood Count 2.76 L Hemoglobin 8.6 L Hematocrit 28.3 L Mean Corpuscular 102.5 H Volume Mean Corpuscular 31.2 Hemoglobin Mean Corpuscular 30.4 L Hemoglobin Concen t Red Cell 18.3 H Distribution Width Platelet Count 320 Mean Platelet 8.8 Volume Immature 0.900 H Granulocytes % Neutrophils % 67.0 Lymphocytes % 25.2 Monocytes % 4.6 Eosinophils % 1.9 Basophils % 0.4 Nucleated Red 0.0 Blood Cells % Immature 0.050 H Granulocytes # Neutrophils # 3.8 Lymphocytes # 1.4 Monocytes # 0.3 Eosinophils # 0.1 Basophils # 0.0 Nucleated Red 0.0 Blood Cells # Sodium Level 141 Potassium Level 2.9 *L Chloride Level 117 H Carbon Dioxide 18 L Level Anion Gap 6 Blood Urea 11 # Nitrogen Creatinine 0.81 Est Glomerular Filtrat Rate mL/min Glucose Level 80 Calcium Level 8.1 L Lab Scanned BLOOD TRANSFUSIO Report N Medications Medication Current Medications Acetaminophen (Tylenol Liquid) 650 mg Q4H PRN GTB MILD PAIN 1-3; Start 03/17/19 at 21:30 Bisacodyl (Dulcolax Supp) 10 mg DAILY PRN [place] CONSTIPATION; Start 03/17/19 at 21:00 Chlorhexidine Gluconate (Peridex) 15 ml Q12H MM Last administered on 03/27/19 10:20; Admin Dose 15 ML; Start 03/17/19 at 21:00 Digoxin (Digoxin) 0.125 mg DAILY@13 PO Last administered on 03/27/19 13:16; Admin Dose 0.125 MG; Start 03/18/19 at 13:00 Docusate Sodium (Colace) 100 mg DAILY PO Last administered on 03/27/19 10:20; Admin Dose 100 MG; Start 03/18/19 at 09:00 Levetiracetam (Keppra Liquid) 250 mg Q12H GTB Last administered on 03/27/19 10:20; Admin Dose 250 MG; Start 03/17/19 at 21:00 Magnesium Hydroxide (Milk Of Mag) 30 ml DAILY PRN GTB CONSTIPATION; Start 03/17/19 at 21:00 Metoprolol Tartrate (Lopressor) 25 mg BID GTB Last administered on 03/27/19 10 :22; Admin Dose 25 MG; Start 03/17/19 at 21:00 Lansoprazole (Prevacid) 30 mg DAILY@06 GTB Last administered on 03/27/19 05:13; Admin Dose 30 MG; Start 03/18/19 at 06:00 Epoetin Amor-epbx (RETACRIT(non-esrd)) 40,000 unit We@1700 SC Last administered on 03/26/19 17:30; Admin Dose 40,000 UNIT; Start 03/19/19 at 17:00 Multivit/Ca Carb/ B Cmplx/FA/Prenat (Renee-Antonio) 1 tab DAILY GTB Last administered on 03/27/19 10:20; Admin Dose 1 TAB; Start 03/21/19 at 09:00 Zinc Sulfate (Zinc Sulfate) 220 mg DAILY GTB Last administered on 03/27/19 10:21; Admin Dose 220 MG; Start 03/21/19 at 09:00 Collagenase (Santyl) 1 applic BID TOP Last administered on 03/27/19 10:20; Admin Dose 1 APPLIC; Start 03/20/19 at 16:28 Vancomycin HCl (Vanco Iv Per Pharmacy) VANCOMYCIN PER PHARMACY PER PROTOCOL XX ; Start 03/23/19 at 06:30 Piperacillin Sod/ Tazobactam Sod 100 ml @ 200 mls/hr Q6 IVPB Last administered on 03/27/19 13:16; Admin Dose 200 MLS/HR; Start 03/23/19 at 06:30 Vancomycin HCl 250 ml @ 125 mls/hr Q48H IVPB Last administered on 03/27/19 10:20; Admin Dose 125 MLS/HR; Start 03/25/19 at 08:00 Acetylcysteine (Mucomyst) 2 ml Q6H RESP THERAPY NEB Last administered on 03/27/19 13:26; Admin Dose 2 ML; Start 03/24/19 at 11:00 Levalbuterol (Xopenex Hfa) 2 puff Q6H RESP THERAPY INH Last administered on 03/27/19 13:23; Admin Dose 2 PUFF; Start 03/24/19 at 14:00 Triamcinolone Acetonide (Kenalog 0.1% Cr) 1 applic BID TOP Last administered on 03/27/19 10:22; Admin Dose 1 APPLIC; Start 03/27/19 at 09:00 Potassium Chloride/Dextrose/ Sod Cl 1,000 ml @ 75 mls/hr [id number] IV Last administered on 03/27/19 12:07; Admin Dose 75 MLS/HR; Start 03/27/19 at 08:00 TYSON ALICEA MD March 27, 2019 17:31
--- NOTE | 2019-03-27 19:38 | PN ---
DATE: 03/27/2019 SUBJECTIVE: The patient's general condition is same. She remains in a noncognitive status. She is ventilator-dependent, breathing comfortably synchronized with the ventilator. PHYSICAL EXAMINATION: VITAL SIGNS: Stable. Blood pressure is 98.7, pulse rate is 89, pulse oximetry 98% saturation, respi ratory rate is 18 to 20. She is on 30% oxygen. NECK: Tracheal secretions are minimal to moderate. No gross bleeding seen. Secretions are mucoid t o clear. HEART: Regular rhythm. CHEST: Breath sounds are heard bilaterally, somewhat diminished in the lower lung corona and the lisa g bases. There are a few occasional rales and rhonchi. ABDOMEN: Soft. No distention seen. EXTREMITIES: Show no edema. Generalized spasticity present in all the extremities. LABORATORY TESTS: The lab test results show sodium 141, potassium 2.9, bicarbonate of 18, glucose 80 , BUN is 11, creatinine 0.81. BUN and creatinine have normalized. The CBC shows WBC of 5700, hemogl obin 8.6, hematocrit 28.3, platelets within normal limits. IMPRESSION: 1. Chronic ventilator-dependent respiratory failure. 2. Probable pneumonia, left lower lobe, versus atelectasis versus effusion. 3. Chronic encephalopathy following cardiac arrest. 4. History of advanced chronic obstructive pulmonary disease. 5. History of congestive heart failure. 6. History of paroxysmal atrial fibrillation. 7. Status post cerebrovascular accident. 8. History of seizure disorder. 9. Chronic anemia. PLAN: 1. Continue long-term ventilator support. 2. Continue bronchodilator inhalation therapy to maintain pulmonary hygiene and clear the secretions . 3. Continue Mucomyst to clear the secretions. 4. Continue chest percussion therapy. 5. Continue antibiotics as per the Infectious Disease energy consultant. 6. The patient's pulmonary status seems to have stabilized and reached a plateau. No further interv ention under consideration. Discussed these with Dr. Phillips on 03/26/2019. I will sign off at this time. Dictated By: KORTNEY GAMEZ MD SR/NTS Conf#: [id number] DID#: [id number] CC: JAYLEN PHILLIPS MD;*EndCC*
[2019-03-28] VITALS (22 sets, daily range): BP systolic 116–145; BP diastolic 54–66; PULSE 50–66; RESP 18–22
[2019-03-28] MEDS: PIPER-TAZO 3.375 GM IV (PMX) 100 ML IVPB SCH ×5 (00:32→23:43)
[2019-03-28] MEDS: LEVALBUTEROL (HFA) 15 GM INHALER INH SCH ×4 (01:03→19:12)
[2019-03-28] MEDS: ACETYLCYSTEINE 20% 4 ML VIAL NEB SCH ×4 (01:03→19:12)
[2019-03-28] MEDS: LANSOPRAZOLE 30 MG CAP GTB SCH (05:21)
[2019-03-28] MEDS: CHLORHEXIDINE GLUCONATE 15 ML UD CUP MM SCH ×2 (08:06→20:46)
[2019-03-28] MEDS: LEVETIRACETAM (100 MG/ML) 5ML CUP GTB SCH ×2 (08:06→20:46)
[2019-03-28] MEDS: COLLAGENASE 5 GM (UD JAR) TOP SCH ×2 (08:06→20:46)
[2019-03-28] MEDS: METOPROLOL 25 MG TAB GTB SCH ×2 (08:07→20:45)
[2019-03-28] MEDS: MULTIVIT/CA CARB/B CMPLX/FA TAB GTB SCH (08:07)
[2019-03-28] MEDS: ZINC SULFATE 220 MG CAP GTB SCH (08:07)
[2019-03-28] MEDS: DOCUSATE SODIUM 100 MG CAP PO SCH (08:07)
[2019-03-28] MEDS: D5W-0.45 NACL + KCL 40 MEQ 1,000 ML IV SCH ×2 (08:08→23:42)
[2019-03-28] MEDS: TRIAMCINOLONE ACET 0.1% 15 GM CR TOP SCH ×2 (08:08→20:46)
--- NOTE | 2019-03-28 09:24 | PN ---
DATE: 03/28/2019 SUBJECTIVE: The patient is stable. No events overnight. OBJECTIVE: VITAL SIGNS: Blood pressure is 145/65, pulse 57, respirations 20, temperature 98.6. HEENT: Head is normocephalic. NECK: Supple. HEART: Regular rate. LUNGS: Show diminished breath sounds at the base. ABDOMEN: Soft, nontender to palpation without rebound or guarding. EXTREMITIES: Negative for clubbing, cyanosis, no edema. DERMATOLOGIC: No rashes. MUSCULOSKELETAL: No joint effusion. NEUROLOGIC: No change in exam. MEDICATIONS: Reviewed. LABORATORY DATA: Reviewed. ASSESSMENT AND PLAN: 1. Chronic kidney disease, stage III. Renal function is stable. Continue current treatment plan, s upportive care, renally dose all meds. 2. Hypokalemia, improved. 3. Hypomagnesemia. Continue to monitor and replete as needed. 4. Anemia. Monitor hemoglobin and hematocrit levels. 5. Mineral bone disorder, monitor calcium and phosphorus levels. 6. Hypertension. Continue current blood pressure regimen. 7. Sigmoid diverticulosis with possible intraabdominal abscess. Continue to monitor. Follow up wit h general surgery for possible drainage. 8. Ventilator dependent respiratory failure. Vent settings have been reviewed. Continue to monitor . 9. Dysphagia. Continue tube feeding. 10. Chronic encephalopathy. No change. 11. Seizure disorder. Continue medical management. Dictated By: RAJINDER WATTS/NTS Conf#: [id number] DID#: [id number] CC: JAYLEN LUGO MD;*EndCC*
[2019-03-28] MEDS ORDERED: MAGNESIUM SULFATE 2 GM/50 ML 50 ML IVPB ONE (09:30)
--- NOTE | 2019-03-28 09:40 | PN ---
Date/Time of Note Date/Time of Note DATE: 03/28/19 TIME: 09:37 Assessment/Plan VTE Prophylaxis Risk score (from [facility] [place]0 risk: 8 SCD applied (from [facility] [place]): Yes SCD contraindicated: other Pharmacological prophylaxis: other Pharm contraindication: other Lines/Catheters IV Catheter Type (from [facility]): Peripheral IV Urinary Cath still in place: Yes Reason Cath still needed: urinary retention Assessment/Plan Assessment/Plan -Hypokalemia, resolved -Hypomagnesium - replace mag. am Mag level -Diverticular abscess, Dr Mario is following in surgical consultation. Continue NPO, IVF. -Severe diverticulosis with spasm per colonoscopy. Dr. Galdamez is following in gastroenterology consultation. -Anemia. Stool for OB neg. Continue Epogen and Iron supplementation. Dr. Kiser is following in hematology consultation -Ventilator dependent respiratory failure with tracheostomy. Dr. Davenport is following in pulmonology consultation. -Acute on chronic kidney disease. Monitor BUN and creatinine. Dr. Grant is following in nephrology consultation -Atrial fibrillation, continue metoprolol -Diastolic congestive heart failure. Dr. Hernandez is following in cardiology consultation. -Pulmonary fibrosis, continue Pulmicort. -Dysphagia with G-tube. -Chronic encephalopathy -COPD -History of CVA, continue aspirin. -Seizure disorder/status epilepticus. Continue Keppra and Ativan as needed. -MRSA nares colonization Further recommendations based on clinical course. Plan of care discussed with Dr. Phillips. Result Diagram: 03/28/19 0513 03/28/19 0514 Results 24hrs Laboratory Tests Test 03/28/19 05:13 03/28/19 05:14 White Blood Count 6.6 Red Blood Count 3.05 L Hemoglobin 9.4 L Hematocrit 31.5 L Mean Corpuscular Volume 103.3 H Mean Corpuscular Hemoglobin 30.8 Mean Corpuscular Hemoglobin Concent 29.8 L Red Cell Distribution Width 18.2 H Platelet Count 293 Mean Platelet Volume 8.6 Immature Granulocytes % 0.900 H Neutrophils % 77.2 H Lymphocytes % 17.7 Monocytes % 2.6 Eosinophils % 1.1 Basophils % 0.5 Nucleated Red Blood Cells % 0.0 Immature Granulocytes # 0.060 H Neutrophils # 5.1 Lymphocytes # 1.2 Monocytes # 0.2 L Eosinophils # 0.1 Basophils # 0.0 Nucleated Red Blood Cells # 0.0 Phosphorus Level 3.2 Magnesium Level 1.6 L Sodium Level 142 Potassium Level 3.6 Chloride Level 118 H Carbon Dioxide Level 18 L Anion Gap 6 Blood Urea Nitrogen 8 Creatinine 0.82 Est Glomerular Filtrat Rate mL/min Glucose Level 89 Calcium Level 8.7 Subjective 24 Hr Interval Summary Free Text/Dictation Hypokalemia, resolved Hypomagnesium - replace mag. am Mag level Subjective hx not possible: pt non-verbal Constitutional: requiring IVF, requiring O2 Exam/Review of Systems Exam Vitals Vital Signs Date Temp Pulse Resp B/P (MAP) Pulse Ox O2 O2 Flow FiO2 Time Delivery Rate 03/28/19 65 20 99 30 09:26 03/28/19 98.7 145/66 Mechanical 07:34 (92) Ventilator Intake and Output 03/27/19 03/27/19 03/28/19 1515:00 23:00 07:00 IntakeIntake Total 1375 ml 75 ml 100 ml BalanceBalance 1375 ml 75 ml 100 ml Constitutional: well developed, non-verbal Psych: nl mood/affect Eyes: nl lids, nl sclera ENMT: nl external ears & nose Neck: other (trach ) Respiratory: clear to auscultation Cardiovascular: nl pulses, other (s1s2) Musculoskeletal: muscle weakness Extremities: normal pulses Neurological: confused, lethargic Results Results 24hrs Laboratory Tests Test 03/28/19 05:13 03/28/19 05:14 White Blood Count 6.6 Red Blood Count 3.05 L Hemoglobin 9.4 L Hematocrit 31.5 L Mean Corpuscular Volume 103.3 H Mean Corpuscular Hemoglobin 30.8 Mean Corpuscular Hemoglobin Concent 29.8 L Red Cell Distribution Width 18.2 H Platelet Count 293 Mean Platelet Volume 8.6 Immature Granulocytes % 0.900 H Neutrophils % 77.2 H Lymphocytes % 17.7 Monocytes % 2.6 Eosinophils % 1.1 Basophils % 0.5 Nucleated Red Blood Cells % 0.0 Immature Granulocytes # 0.060 H Neutrophils # 5.1 Lymphocytes # 1.2 Monocytes # 0.2 L Eosinophils # 0.1 Basophils # 0.0 Nucleated Red Blood Cells # 0.0 Phosphorus Level 3.2 Magnesium Level 1.6 L Sodium Level 142 Potassium Level 3.6 Chloride Level 118 H Carbon Dioxide Level 18 L Anion Gap 6 Blood Urea Nitrogen 8 Creatinine 0.82 Est Glomerular Filtrat Rate mL/min Glucose Level 89 Calcium Level 8.7 Medications Medication Current Medications Acetaminophen (Tylenol Liquid) 650 mg Q4H PRN GTB MILD PAIN 1-3; Start 03/17/19 at 21:30 Bisacodyl (Dulcolax Supp) 10 mg DAILY PRN [place] CONSTIPATION; Start 03/17/19 at 21:00 Chlorhexidine Gluconate (Peridex) 15 ml Q12H MM Last administered on 03/28/19 08:06; Admin Dose 15 ML; Start 03/17/19 at 21:00 Digoxin (Digoxin) 0.125 mg DAILY@13 PO Last administered on 03/27/19 13:16; Admin Dose 0.125 MG; Start 03/18/19 at 13:00 Docusate Sodium (Colace) 100 mg DAILY PO Last administered on 03/28/19 08:07; Admin Dose 100 MG; Start 03/18/19 at 09:00 Levetiracetam (Keppra Liquid) 250 mg Q12H GTB Last administered on 03/28/19 08:06; Admin Dose 250 MG; Start 03/17/19 at 21:00 Magnesium Hydroxide (Milk Of Mag) 30 ml DAILY PRN GTB CONSTIPATION; Start 03/17/19 at 21:00 Metoprolol Tartrate (Lopressor) 25 mg BID GTB Last administered on 03/28/19at 08:07; Admin Dose 25 MG; Start 03/17/19 at 21:00 Lansoprazole (Prevacid) 30 mg DAILY@06 GTB Last administered on 03/28/19at 05:21; Admin Dose 30 MG; Start 03/18/19 at 06:00 Epoetin Amor-epbx (RETACRIT(non-esrd)) 40,000 unit We@1700 SC Last administered on 03/26/19at 17:30; Admin Dose 40,000 UNIT; Start 03/19/19 at 17:00 Multivit/Ca Carb/ B Cmplx/FA/Prenat (Renee-Antonio) 1 tab DAILY GTB Last administered on 03/28/19 08:07; Admin Dose 1 TAB; Start 03/21/19 at 09:00 Zinc Sulfate (Zinc Sulfate) 220 mg DAILY GTB Last administered on 03/28/19 08:07; Admin Dose 220 MG; Start 03/21/19 at 09:00 Collagenase (Santyl) 1 applic BID TOP Last administered on 03/28/19 08:06; Admin Dose 1 APPLIC; Start 03/20/19 at 16:28 Vancomycin HCl (Vanco Iv Per Pharmacy) VANCOMYCIN PER PHARMACY PER PROTOCOL XX ; Start 03/23/19 at 06:30 Piperacillin Sod/ Tazobactam Sod 100 ml @ 200 mls/hr Q6 IVPB Last administered on 03/28/19 05:22; Admin Dose 200 MLS/HR; Start 03/23/19 at 06:30 Vancomycin HCl 250 ml @ 125 mls/hr Q48H IVPB Last administered on 03/27/19 10:20; Admin Dose 125 MLS/HR; Start 03/25/19 at 08:00 Acetylcysteine (Mucomyst) 2 ml Q6H RESP THERAPY NEB Last administered on 03/28/19 07:29; Admin Dose 2 ML; Start 03/24/19 at 11:00 Levalbuterol (Xopenex Hfa) 2 puff Q6H RESP THERAPY INH Last administered on 03/28/19 07:26; Admin Dose 2 PUFF; Start 03/24/19 at 14:00 Triamcinolone Acetonide (Kenalog 0.1% Cr) 1 applic BID TOP Last administered on 03/28/19 08:08; Admin Dose 1 APPLIC; Start 03/27/19 at 09:00 Potassium Chloride/Dextrose/ Sod Cl 1,000 ml @ 75 mls/hr [id number] IV Last administered on 03/28/19 08:08; Admin Dose 75 MLS/HR; Start 03/27/19 at 08:00 Magnesium Sulfate 50 ml @ 25 mls/hr ONCE ONCE IVPB ; Start 03/28/19 at 09:30; Stop 03/28/19 at 11:29 FRANCESCO SIU March 28, 2019 09:40
--- NOTE | 2019-03-28 11:55 | CONS ---
Assessment/Plan Assessment/Plan Hospital Course (Demo Recall) IMP: 1.PVC-ongoing. EF 65% by echo 10/29. neg trop x 3 2.Bradycardia-to 50's 3.HTN 4.REsp failure-chronic s/p trach 5.SVT-short run. NO recurrence 6.anemia Recc: -Tele -Continue low dose BB as tolerated only -Continue abx's and f/u cx data -Continue digoxin -Continue mucomyst and bronchodilators Consultation Date/Type/Reason Admit Date/Time March 17, 2019 at 14:33 Initial Consult Date 03/18/19 Type of Consult Cardiology Reason for Consultation CHF Requesting Provider: IMER VARGAS Date/Time of Note DATE: 03/28/19 TIME: 11:52 Exam/Review of Systems Vital Signs Vitals Vital Signs Date Temp Pulse Resp B/P (MAP) Pulse Ox O2 O2 Flow FiO2 Time Delivery Rate 03/28/19 61 20 100 30 11:17 03/28/19 98.7 145/66 Mechanical 07:34 (92) Ventilator Intake and Output 03/27/19 03/27/19 03/28/19 1515:00 23:00 07:00 IntakeIntake Total 1375 ml 75 ml 100 ml BalanceBalance 1375 ml 75 ml 100 ml Exam Exam Review of Systems: CONSTITUTIONAL: No fevers, chills. PULMONARY: No sob CARDIOVASCULAR: No chest pain/palpitations GASTROINTESTINAL: No nausea/vomiting. GENITOURINARY: No hematuria/dysuria. MUSCULOSKELETAL: No myagias/arthalgias. PSYCHIATRIC: The patient denies depression. NEUROLOGIC: No weakness Constitutional: alert Psych: no complaints Head: normocephalic ENMT: mucosa pink and moist Neck: supple, jvd (9 cm water) Respiratory: diminished breath sounds Cardiovascular: regular rate and rhythm Gastrointestinal: soft, non-tender Musculoskeletal: muscle tone (normal) Extremities: edema (trace/B) Neurological: other (No focal deficits) Labs Result Diagram: 03/28/19 0513 03/28/19 0514 Results 24hrs Laboratory Tests Test 03/28/19 05:13 03/28/19 05:14 White Blood Count 6.6 Red Blood Count 3.05 L Hemoglobin 9.4 L Hematocrit 31.5 L Mean Corpuscular Volume 103.3 H Mean Corpuscular Hemoglobin 30.8 Mean Corpuscular Hemoglobin Concent 29.8 L Red Cell Distribution Width 18.2 H Platelet Count 293 Mean Platelet Volume 8.6 Immature Granulocytes % 0.900 H Neutrophils % 77.2 H Lymphocytes % 17.7 Monocytes % 2.6 Eosinophils % 1.1 Basophils % 0.5 Nucleated Red Blood Cells % 0.0 Immature Granulocytes # 0.060 H Neutrophils # 5.1 Lymphocytes # 1.2 Monocytes # 0.2 L Eosinophils # 0.1 Basophils # 0.0 Nucleated Red Blood Cells # 0.0 Phosphorus Level 3.2 Magnesium Level 1.6 L Sodium Level 142 Potassium Level 3.6 Chloride Level 118 H Carbon Dioxide Level 18 L Anion Gap 6 Blood Urea Nitrogen 8 Creatinine 0.82 Est Glomerular Filtrat Rate mL/min Glucose Level 89 Calcium Level 8.7 Medications Medications Current Medications Acetaminophen (Tylenol Liquid) 650 mg Q4H PRN GTB MILD PAIN 1-3; Start 03/17/19 at 21:30 Bisacodyl (Dulcolax Supp) 10 mg DAILY PRN [place] CONSTIPATION; Start 03/17/19 at 21:00 Chlorhexidine Gluconate (Peridex) 15 ml Q12H MM Last administered on 03/28/19at 08:06; Admin Dose 15 ML; Start 03/17/19 at 21:00 Digoxin (Digoxin) 0.125 mg DAILY@13 PO Last administered on 03/27/19at 13:16; Admin Dose 0.125 MG; Start 03/18/19 at 13:00 Docusate Sodium (Colace) 100 mg DAILY PO Last administered on 03/28/19at 08:07; Admin Dose 100 MG; Start 03/18/19 at 09:00 Levetiracetam (Keppra Liquid) 250 mg Q12H GTB Last administered on 03/28/19at 08:06; Admin Dose 250 MG; Start 03/17/19 at 21:00 Magnesium Hydroxide (Milk Of Mag) 30 ml DAILY PRN GTB CONSTIPATION; Start 03/17/19 at 21:00 Metoprolol Tartrate (Lopressor) 25 mg BID GTB Last administered on 03/28/19at 08:07; Admin Dose 25 MG; Start 03/17/19 at 21:00 Lansoprazole (Prevacid) 30 mg DAILY@06 GTB Last administered on 03/28/19at 05:21; Admin Dose 30 MG; Start 03/18/19 at 06:00 Epoetin Amor-epbx (RETACRIT(non-esrd)) 40,000 unit We@1700 SC Last administered on 03/26/19 17:30; Admin Dose 40,000 UNIT; Start 03/19/19 at 17:00 Multivit/Ca Carb/ B Cmplx/FA/Prenat (Renee-Antonio) 1 tab DAILY GTB Last administered on 03/28/19 08:07; Admin Dose 1 TAB; Start 03/21/19 at 09:00 Zinc Sulfate (Zinc Sulfate) 220 mg DAILY GTB Last administered on 03/28/19 08:07; Admin Dose 220 MG; Start 03/21/19 at 09:00 Collagenase (Santyl) 1 applic BID TOP Last administered on 03/28/19 08:06; Admin Dose 1 APPLIC; Start 03/20/19 at 16:28 Vancomycin HCl (Vanco Iv Per Pharmacy) VANCOMYCIN PER PHARMACY PER PROTOCOL XX ; Start 03/23/19 at 06:30 Piperacillin Sod/ Tazobactam Sod 100 ml @ 200 mls/hr Q6 IVPB Last administered on 03/28/19 11:49; Admin Dose 200 MLS/HR; Start 03/23/19 at 06:30 Vancomycin HCl 250 ml @ 125 mls/hr Q48H IVPB Last administered on 03/27/19 10:20; Admin Dose 125 MLS/HR; Start 03/25/19 at 08:00 Acetylcysteine (Mucomyst) 2 ml Q6H RESP THERAPY NEB Last administered on 03/28/19 07:29; Admin Dose 2 ML; Start 03/24/19 at 11:00 Levalbuterol (Xopenex Hfa) 2 puff Q6H RESP THERAPY INH Last administered on 03/28/19 07:26; Admin Dose 2 PUFF; Start 03/24/19 at 14:00 Triamcinolone Acetonide (Kenalog 0.1% Cr) 1 applic BID TOP Last administered on 03/28/19 08:08; Admin Dose 1 APPLIC; Start 03/27/19 at 09:00 Potassium Chloride/Dextrose/ Sod Cl 1,000 ml @ 75 mls/hr [id number] IV Last administered on 5/17/19at 08:08; Admin Dose 75 MLS/HR; Start 03/27/19 at 08:00 LUIS FERGUSON March 28, 2019 11:55
--- NOTE | 2019-03-28 12:13 | CONS ---
Assessment/Plan Assessment/Plan Assessment/Plan (Daily) Assessment/Plan Assessment/Plan Hospital Course (Demo Recall) 1. Anemia of chronic disease --per DR Kiser note "pt is noted to have a macrocytic anemia which is mostly likely 2/2 underlying myelodysplastic syndrome" 2. Chronic kidney disease. 3. Hypertension. 4. Paroxysmal atrial fibrillation. 5. Cerebrovascular accident. 6. Possible meningioma. 7. Vent dependent respiratory failure. 8. Dysphagia, status post G-tube. 9. S/P colonoscopy 03/20 -found severe diverticulosis of left side of colon with spasm and poor prep 10. Walled off diverticular perforation abscess - no free air, could be also fistula. CT abd 03/21: 1. Sigmoid diverticulosis with a focal area of abnormal wall thickening of the proximal sigmoid colon with an adjacent gas containing fluid collection measuring 3.1 x 3.2 x 8.5 cm extending along the left iliopsoas/iliacus muscles. This could represent peridiverticular abscess/contained perforation. No additional fluid collection is identified in the remainder of the abdomen. 2. Complete atelectasis of the left lower lobe. Query mucus plugging. Consider bronchoscopy for further evaluation. 3. Unchanged left adrenal nodule. 4. Cholelithiasis. 5. Splenomegaly. 6. Peg tube is in satisfactory position. 7. Multiple bilateral renal cysts. 8. Aortoiliac vascular calcifications with no aneurysmal dilatation. PLAN: Surgical consult to clear patient to restart tube feeds IR needs to aspirate abscess. Awaiting response from IR. IR cannot put a drain Hold Tube feeds until surgery clears pt Since the patient is totally asymptomatic and has no evidence of peritonitis we may start feeding through the G-tube and to continue antibiotic Patient is tolerating feeding and will continue that. Her WBC is within normal limit. We will repeat CAT scan after 2 weeks Consultation Date/Type/Reason Admit Date/Time March 17, 2019 at 14:33 Initial Consult Date 03/18/19 Requesting Provider: IMER VARGAS Date/Time of Note DATE: 03/28/19 TIME: 12:13 24 HR Interval Summary Subjective hx not possible: pt non-verbal Exam/Review of Systems Exam Vitals Vital Signs Date Temp Pulse Resp B/P (MAP) Pulse Ox O2 O2 Flow FiO2 Time Delivery Rate 03/28/19 98.6 56 20 142/66 100 Mechanical 11:40 (91) Ventilator 5/17/19 30 11:17 Intake and Output 03/27/19 03/27/19 03/28/19 1515:00 23:00 07:00 IntakeIntake Total 1375 ml 75 ml 100 ml BalanceBalance 1375 ml 75 ml 100 ml ENMT: intubated Respiratory: clear to auscultation, normal air movement Results Result Diagram: 03/28/19 0513 03/28/19 0514 Results 24hrs Laboratory Tests Test 03/28/19 05:13 03/28/19 05:14 White Blood Count 6.6 Red Blood Count 3.05 L Hemoglobin 9.4 L Hematocrit 31.5 L Mean Corpuscular Volume 103.3 H Mean Corpuscular Hemoglobin 30.8 Mean Corpuscular Hemoglobin Concent 29.8 L Red Cell Distribution Width 18.2 H Platelet Count 293 Mean Platelet Volume 8.6 Immature Granulocytes % 0.900 H Neutrophils % 77.2 H Lymphocytes % 17.7 Monocytes % 2.6 Eosinophils % 1.1 Basophils % 0.5 Nucleated Red Blood Cells % 0.0 Immature Granulocytes # 0.060 H Neutrophils # 5.1 Lymphocytes # 1.2 Monocytes # 0.2 L Eosinophils # 0.1 Basophils # 0.0 Nucleated Red Blood Cells # 0.0 Phosphorus Level 3.2 Magnesium Level 1.6 L Sodium Level 142 Potassium Level 3.6 Chloride Level 118 H Carbon Dioxide Level 18 L Anion Gap 6 Blood Urea Nitrogen 8 Creatinine 0.82 Est Glomerular Filtrat Rate mL/min Glucose Level 89 Calcium Level 8.7 Medications Medication Current Medications Acetaminophen (Tylenol Liquid) 650 mg Q4H PRN GTB MILD PAIN 1-3; Start 03/17/19 at 21:30 Bisacodyl (Dulcolax Supp) 10 mg DAILY PRN [place] CONSTIPATION; Start 03/17/19 at 21:00 Chlorhexidine Gluconate (Peridex) 15 ml Q12H MM Last administered on 03/28/19at 08:06; Admin Dose 15 ML; Start 03/17/19 at 21:00 Digoxin (Digoxin) 0.125 mg DAILY@13 PO Last administered on 03/27/19at 13:16; Admin Dose 0.125 MG; Start 03/18/19 at 13:00 Docusate Sodium (Colace) 100 mg DAILY PO Last administered on 5/17/19at 08:07; Admin Dose 100 MG; Start 03/18/19 at 09:00 Levetiracetam (Keppra Liquid) 250 mg Q12H GTB Last administered on 03/28/19 08:06; Admin Dose 250 MG; Start 03/17/19 at 21:00 Magnesium Hydroxide (Milk Of Mag) 30 ml DAILY PRN GTB CONSTIPATION; Start 03/17/19 at 21:00 Metoprolol Tartrate (Lopressor) 25 mg BID GTB Last administered on 03/28/19 08 :07; Admin Dose 25 MG; Start 03/17/19 at 21:00 Lansoprazole (Prevacid) 30 mg DAILY@06 GTB Last administered on 03/28/19 05:21; Admin Dose 30 MG; Start 03/18/19 at 06:00 Epoetin Amor-epbx (RETACRIT(non-esrd)) 40,000 unit We@1700 SC Last administered on 03/26/19 17:30; Admin Dose 40,000 UNIT; Start 03/19/19 at 17:00 Multivit/Ca Carb/ B Cmplx/FA/Prenat (Renee-Antonio) 1 tab DAILY GTB Last administered on 03/28/19 08:07; Admin Dose 1 TAB; Start 03/21/19 at 09:00 Zinc Sulfate (Zinc Sulfate) 220 mg DAILY GTB Last administered on 03/28/19 08:07; Admin Dose 220 MG; Start 03/21/19 at 09:00 Collagenase (Santyl) 1 applic BID TOP Last administered on 03/28/19 08:06; Admin Dose 1 APPLIC; Start 03/20/19 at 16:28 Vancomycin HCl (Vanco Iv Per Pharmacy) VANCOMYCIN PER PHARMACY PER PROTOCOL XX ; Start 03/23/19 at 06:30 Piperacillin Sod/ Tazobactam Sod 100 ml @ 200 mls/hr Q6 IVPB Last administered on 03/28/19at 11:49; Admin Dose 200 MLS/HR; Start 03/23/19 at 06:30 Vancomycin HCl 250 ml @ 125 mls/hr Q48H IVPB Last administered on 03/27/19at 10:20; Admin Dose 125 MLS/HR; Start 03/25/19 at 08:00 Acetylcysteine (Mucomyst) 2 ml Q6H RESP THERAPY NEB Last administered on 03/28/19 07:29; Admin Dose 2 ML; Start 03/24/19 at 11:00 Levalbuterol (Xopenex Hfa) 2 puff Q6H RESP THERAPY INH Last administered on 03/28/19 07:26; Admin Dose 2 PUFF; Start 03/24/19 at 14:00 Triamcinolone Acetonide (Kenalog 0.1% Cr) 1 applic BID TOP Last administered on 03/28/19 08:08; Admin Dose 1 APPLIC; Start 03/27/19 at 09:00 Potassium Chloride/Dextrose/ Sod Cl 1,000 ml @ 75 mls/hr [id number] IV Last administered on 03/28/19 08:08; Admin Dose 75 MLS/HR; Start 03/27/19 at 08:00 TYSON ALICEA MD March 28, 2019 12:13
[2019-03-28] MEDS: DIGOXIN 0.125 MG TAB PO SCH (13:00)
--- NOTE | 2019-03-28 13:21 | CONS ---
Assessment/Plan Assessment/Plan Hospital Course (Demo Recall) No acute changes overnight patient is noncommunicative in no distress no fevers Indwelling: Trach, PEG, Damon Antimicrobials: Vancomycin, Zosyn Physical examination: Chronically ill-appearing elderly woman in no distress. Head atraumatic normocephalic neck is supple tracheostomy present chest rise symmetrical breath sounds diminished bases. Heart: S1-S2. Abdomen soft bowel sounds present. Assessment: 1. Sigmoid diverticulosis with abscess 2. Left lower lobe atelectasis ? PNA 3. Chronic respiratory failure and dysphagia 4. Seizure disorder 5. Acute on chronic encephalopathy 6. Chronic kidney disease 7. Urinary tract infection as per urinalysis Plan: Clinically unchanged, surgical rec-s noted, no aggressive measures per family, continue antibiotics Consultation Date/Type/Reason Admit Date/Time March 17, 2019 at 14:33 Initial Consult Date 03/18/19 Type of Consult id Requesting Provider: IMER VARGAS Date/Time of Note DATE: 03/28/19 TIME: 13:20 Exam/Review of Systems Exam Vitals Vital Signs Date Temp Pulse Resp B/P (MAP) Pulse Ox O2 O2 Flow FiO2 Time Delivery Rate 03/28/19 98.6 56 20 142/66 100 Mechanical 11:40 (91) Ventilator 03/28/19 30 11:17 Intake and Output 03/27/19 03/27/19 03/28/19 1515:00 23:00 07:00 IntakeIntake Total 1375 ml 75 ml 100 ml BalanceBalance 1375 ml 75 ml 100 ml Results Result Diagram: 03/28/19 0513 03/28/19 0514 Results 24hrs Laboratory Tests Test 03/28/19 05:13 03/28/19 05:14 White Blood Count 6.6 Red Blood Count 3.05 L Hemoglobin 9.4 L Hematocrit 31.5 L Mean Corpuscular Volume 103.3 H Mean Corpuscular Hemoglobin 30.8 Mean Corpuscular Hemoglobin Concent 29.8 L Red Cell Distribution Width 18.2 H Platelet Count 293 Mean Platelet Volume 8.6 Immature Granulocytes % 0.900 H Neutrophils % 77.2 H Lymphocytes % 17.7 Monocytes % 2.6 Eosinophils % 1.1 Basophils % 0.5 Nucleated Red Blood Cells % 0.0 Immature Granulocytes # 0.060 H Neutrophils # 5.1 Lymphocytes # 1.2 Monocytes # 0.2 L Eosinophils # 0.1 Basophils # 0.0 Nucleated Red Blood Cells # 0.0 Phosphorus Level 3.2 Magnesium Level 1.6 L Sodium Level 142 Potassium Level 3.6 Chloride Level 118 H Carbon Dioxide Level 18 L Anion Gap 6 Blood Urea Nitrogen 8 Creatinine 0.82 Est Glomerular Filtrat Rate mL/min Glucose Level 89 Calcium Level 8.7 Medications Medication Current Medications Acetaminophen (Tylenol Liquid) 650 mg Q4H PRN GTB MILD PAIN 1-3; Start 03/17/19 at 21:30 Bisacodyl (Dulcolax Supp) 10 mg DAILY PRN [place] CONSTIPATION; Start 03/17/19 at 21:00 Chlorhexidine Gluconate (Peridex) 15 ml Q12H MM Last administered on 03/28/19 08:06; Admin Dose 15 ML; Start 03/17/19 at 21:00 Digoxin (Digoxin) 0.125 mg DAILY@13 PO Last administered on 03/27/19at 13:16; Admin Dose 0.125 MG; Start 03/18/19 at 13:00 Docusate Sodium (Colace) 100 mg DAILY PO Last administered on 03/28/19 08:07; Admin Dose 100 MG; Start 03/18/19 at 09:00 Levetiracetam (Keppra Liquid) 250 mg Q12H GTB Last administered on 03/28/19 08:06; Admin Dose 250 MG; Start 03/17/19 at 21:00 Magnesium Hydroxide (Milk Of Mag) 30 ml DAILY PRN GTB CONSTIPATION; Start 03/17/19 at 21:00 Metoprolol Tartrate (Lopressor) 25 mg BID GTB Last administered on 03/28/19at 08:07; Admin Dose 25 MG; Start 03/17/19 at 21:00 Lansoprazole (Prevacid) 30 mg DAILY@06 GTB Last administered on 03/28/19at 05:21; Admin Dose 30 MG; Start 03/18/19 at 06:00 Epoetin Amor-epbx (RETACRIT(non-esrd)) 40,000 unit We@1700 SC Last administered on 03/26/19at 17:30; Admin Dose 40,000 UNIT; Start 03/19/19 at 17:00 Multivit/Ca Carb/ B Cmplx/FA/Prenat (Renee-Antonio) 1 tab DAILY GTB Last administered on 03/28/19 08:07; Admin Dose 1 TAB; Start 03/21/19 at 09:00 Zinc Sulfate (Zinc Sulfate) 220 mg DAILY GTB Last administered on 03/28/19 08:07; Admin Dose 220 MG; Start 03/21/19 at 09:00 Collagenase (Santyl) 1 applic BID TOP Last administered on 03/28/19 08:06; Admin Dose 1 APPLIC; Start 03/20/19 at 16:28 Vancomycin HCl (Vanco Iv Per Pharmacy) VANCOMYCIN PER PHARMACY PER PROTOCOL XX ; Start 03/23/19 at 06:30 Piperacillin Sod/ Tazobactam Sod 100 ml @ 200 mls/hr Q6 IVPB Last administered on 03/28/19 11:49; Admin Dose 200 MLS/HR; Start 03/23/19 at 06:30 Vancomycin HCl 250 ml @ 125 mls/hr Q48H IVPB Last administered on 03/27/19 10:20; Admin Dose 125 MLS/HR; Start 03/25/19 at 08:00 Acetylcysteine (Mucomyst) 2 ml Q6H RESP THERAPY NEB Last administered on 03/28/19 07:29; Admin Dose 2 ML; Start 03/24/19 at 11:00 Levalbuterol (Xopenex Hfa) 2 puff Q6H RESP THERAPY INH Last administered on 03/28/19 07:26; Admin Dose 2 PUFF; Start 03/24/19 at 14:00 Triamcinolone Acetonide (Kenalog 0.1% Cr) 1 applic BID TOP Last administered on 03/28/19 08:08; Admin Dose 1 APPLIC; Start 03/27/19 at 09:00 Potassium Chloride/Dextrose/ Sod Cl 1,000 ml @ 75 mls/hr [id number] IV Last administered on 03/28/19 08:08; Admin Dose 75 MLS/HR; Start 03/27/19 at 08:00 Miscellaneous Information (*Rx Drug Level Order Reminder*) VANCOMYCIN TROUGH LEVEL... 0700 ONCE XX ; Start 03/29/19 at 07:00; Stop 03/29/19 at 07:01 DEBO UMANA NP March 28, 2019 13:21
--- NOTE | 2019-03-28 15:02 | CONS ---
Assessment/Plan Assessment/Plan Hospital Course (Demo Recall) 73 yo with #Anemia -Hg ok at 9.4 today -pt is noted to have a macrocytic anemia which is mostly likely 2/2 underlying myelodysplastic syndrome -continue epogen 40,000 units weekly -iron panel reveals mild iron deficiency. s/p ferrilict -vitamin b12 and folate levels are ok -past workup for anemia reveals a negative SPEP and no signs of hemolysis. will however recheck LDH, haptoglobin and retic -f/u colonoscopy results # fluid collection -measuring 3.1 x 3.2 x 8.5 cm extending along the left iliopsoas/iliacus muscles. This could represent peridiverticular abscess/contained perforation. -IR to drain -pt is currently on vancomycin and zosyn Consultation Date/Type/Reason Admit Date/Time March 17, 2019 at 14:33 Initial Consult Date 03/18/19 Type of Consult hematology Reason for Consultation pancytopenia Requesting Provider: IMER VARGAS Date/Time of Note DATE: 03/28/19 TIME: 14:59 24 HR Interval Summary Free Text/Dictation no acute overnight events Exam/Review of Systems Exam Vitals Vital Signs Date Temp Pulse Resp B/P (MAP) Pulse Ox O2 O2 Flow FiO2 Time Delivery Rate 03/28/19 30 13:48 03/28/19 52 20 100 13:40 03/28/19 98.6 142/66 Mechanical 11:40 (91) Ventilator Intake and Output 03/27/19 03/27/19 03/28/19 1414:59 22:59 06:59 IntakeIntake Total 1300 ml 150 ml 100 ml BalanceBalance 1300 ml 150 ml 100 ml Constitutional: alert, oriented Psych: no complaints Head: normocephalic Eyes: nl conjunctiva ENMT: nl external ears & nose Neck: supple Respiratory: clear to auscultation Cardiovascular: regular rate and rhythm Gastrointestinal: soft Genitourinary - Female: nl adnexae Musculoskeletal: nl extremities to inspection Results Result Diagram: 03/28/19 0513 03/28/19 0514 Results 24hrs Laboratory Tests Test 03/28/19 05:13 03/28/19 05:14 White Blood Count 6.6 Red Blood Count 3.05 L Hemoglobin 9.4 L Hematocrit 31.5 L Mean Corpuscular Volume 103.3 H Mean Corpuscular Hemoglobin 30.8 Mean Corpuscular Hemoglobin Concent 29.8 L Red Cell Distribution Width 18.2 H Platelet Count 293 Mean Platelet Volume 8.6 Immature Granulocytes % 0.900 H Neutrophils % 77.2 H Lymphocytes % 17.7 Monocytes % 2.6 Eosinophils % 1.1 Basophils % 0.5 Nucleated Red Blood Cells % 0.0 Immature Granulocytes # 0.060 H Neutrophils # 5.1 Lymphocytes # 1.2 Monocytes # 0.2 L Eosinophils # 0.1 Basophils # 0.0 Nucleated Red Blood Cells # 0.0 Phosphorus Level 3.2 Magnesium Level 1.6 L Sodium Level 142 Potassium Level 3.6 Chloride Level 118 H Carbon Dioxide Level 18 L Anion Gap 6 Blood Urea Nitrogen 8 Creatinine 0.82 Est Glomerular Filtrat Rate mL/min Glucose Level 89 Calcium Level 8.7 Medications Medication Current Medications Acetaminophen (Tylenol Liquid) 650 mg Q4H PRN GTB MILD PAIN 1-3; Start 03/17/19 at 21:30 Bisacodyl (Dulcolax Supp) 10 mg DAILY PRN [place] CONSTIPATION; Start 03/17/19 at 21:00 Chlorhexidine Gluconate (Peridex) 15 ml Q12H MM Last administered on 03/28/19at 08:06; Admin Dose 15 ML; Start 03/17/19 at 21:00 Digoxin (Digoxin) 0.125 mg DAILY@13 PO Last administered on 03/27/19at 13:16; Admin Dose 0.125 MG; Start 03/18/19 at 13:00 Docusate Sodium (Colace) 100 mg DAILY PO Last administered on 03/28/19at 08:07; Admin Dose 100 MG; Start 03/18/19 at 09:00 Levetiracetam (Keppra Liquid) 250 mg Q12H GTB Last administered on 03/28/19at 08:06; Admin Dose 250 MG; Start 03/17/19 at 21:00 Magnesium Hydroxide (Milk Of Mag) 30 ml DAILY PRN GTB CONSTIPATION; Start 03/17/19 at 21:00 Metoprolol Tartrate (Lopressor) 25 mg BID GTB Last administered on 03/28/19at 08:07; Admin Dose 25 MG; Start 03/17/19 at 21:00 Lansoprazole (Prevacid) 30 mg DAILY@06 GTB Last administered on 5/17/19at 05:21; Admin Dose 30 MG; Start 03/18/19 at 06:00 Epoetin Amor-epbx (RETACRIT(non-esrd)) 40,000 unit We@1700 SC Last administered on 03/26/19 17:30; Admin Dose 40,000 UNIT; Start 03/19/19 at 17:00 Multivit/Ca Carb/ B Cmplx/FA/Prenat (Renee-Antonio) 1 tab DAILY GTB Last administered on 03/28/19 08:07; Admin Dose 1 TAB; Start 03/21/19 at 09:00 Zinc Sulfate (Zinc Sulfate) 220 mg DAILY GTB Last administered on 03/28/19 08:07; Admin Dose 220 MG; Start 03/21/19 at 09:00 Collagenase (Santyl) 1 applic BID TOP Last administered on 03/28/19 08:06; Admin Dose 1 APPLIC; Start 03/20/19 at 16:28 Vancomycin HCl (Vanco Iv Per Pharmacy) VANCOMYCIN PER PHARMACY PER PROTOCOL XX ; Start 03/23/19 at 06:30 Piperacillin Sod/ Tazobactam Sod 100 ml @ 200 mls/hr Q6 IVPB Last administered on 03/28/19 11:49; Admin Dose 200 MLS/HR; Start 03/23/19 at 06:30 Vancomycin HCl 250 ml @ 125 mls/hr Q48H IVPB Last administered on 03/27/19 10:20; Admin Dose 125 MLS/HR; Start 03/25/19 at 08:00 Acetylcysteine (Mucomyst) 2 ml Q6H RESP THERAPY NEB Last administered on 03/28/19 14:14; Admin Dose 2 ML; Start 03/24/19 at 11:00 Levalbuterol (Xopenex Hfa) 2 puff Q6H RESP THERAPY INH Last administered on 03/28/19 14:14; Admin Dose 2 PUFF; Start 03/24/19 at 14:00 Triamcinolone Acetonide (Kenalog 0.1% Cr) 1 applic BID TOP Last administered on 03/28/19 08:08; Admin Dose 1 APPLIC; Start 03/27/19 at 09:00 Potassium Chloride/Dextrose/ Sod Cl 1,000 ml @ 75 mls/hr [id number] IV Last administered on 5/17/19at 08:08; Admin Dose 75 MLS/HR; Start 03/27/19 at 08:00 Miscellaneous Information (*Rx Drug Level Order Reminder*) VANCOMYCIN TROUGH LEVEL... 0700 ONCE XX ; Start 03/29/19 at 07:00; Stop 03/29/19 at 07:01 IJEOMA GROSSMAN M.D. March 28, 2019 15:02
--- NOTE | 2019-03-28 16:32 | PN ---
Date/Time of Note Date/Time of Note DATE: 03/28/19 TIME: 16:30 Assessment/Plan Lines/Catheters IV Catheter Type (from [facility]): Peripheral IV Damon in Place (from [facility]): Yes Assessment/Plan Chief Complaint/Hosp Course 1. Sigmoid diverticulosis with a focal area of abnormal wall thickening of the proximal sigmoid colon with an adjacent gas containing fluid collection measuring 3.1 x 3.2 x 8.5 cm extending along the left iliopsoas/iliacus muscles. This could represent peridiverticular abscess/contained perforation. Not drainable per IR. Family does not want aggressive measures (OR) -Continue Abx per ID -supportive -nutrition ok -obs -consider d/w IR again 2. anemia: No overt bleed noted -Monitor and transfuse as needed -Per hematology 3. VDRF: -Pulmonary toilet -Vent management per pulmonary 4. CKD -Limit nephrotoxic meds -Renally dose meds -Per renal 5. Atrial fibrillation history -Rate control 6. Heart failure: -Cardiac optimization 7. Dysphagia with PEG placement -Continue tube feeds with aspiration precautions Thank you, Subjective 24 Hr Interval Summary Nonverbal indicators of pain at present. + Bowel function. No fevers, labored breathing, congested cough, vomiting, abdominal distention, diarrhea, seizure, rash. Exam/Review of Systems Vital Signs Vitals Vital Signs Date Temp Pulse Resp B/P (MAP) Pulse Ox O2 O2 Flow FiO2 Time Delivery Rate 03/28/19 50 16:19 03/28/19 98.1 20 116/54 100 Mechanical 15:40 (74) Ventilator 03/28/19 30 15:28 Intake and Output 03/27/19 03/27/19 03/28/19 1414:59 22:59 06:59 IntakeIntake Total 1300 ml 150 ml 100 ml BalanceBalance 1300 ml 150 ml 100 ml Exam Free Text/Dictation Constitutional: alert; No oriented, No distress Psych: nl mood/affect Head: normocephalic, atraumatic Eyes: nl conjunctiva, EOMI, nl lids, nl sclera ENMT: nl external ears & nose, nl lips & teeth, mucosa pink and moist Neck: supple, non-tender, other (Tracheostomy) Respiratory: normal air movement, other (Vent); No congested cough Cardiovascular: regular rate and rhythm Gastrointestinal: soft, non-tender, other (PEG); No distended Genitourinary - Female: nl external genitalia Musculoskeletal: nl extremities to inspection, nl gait and stance Extremities: normal pulses; No edema Neurological: No nl mental status, No nl speech (Nonverbal, noncommunicative), No nl strength, No focal weakness Skin: No rash or lesions Results Result Diagram: 03/28/19 0513 03/28/19 0514 MARÍA ELENA MARTINEZ MD March 28, 2019 16:32
[2019-03-29] VITALS (21 sets, daily range): BP systolic 101–157; BP diastolic 50–69; PULSE 48–60; RESP 18–23
[2019-03-29] MEDS: ACETYLCYSTEINE 20% 4 ML VIAL NEB SCH ×4 (01:06→20:14)
[2019-03-29] MEDS: LEVALBUTEROL (HFA) 15 GM INHALER INH SCH ×4 (01:07→20:07)
[2019-03-29] MEDS: LANSOPRAZOLE 30 MG CAP GTB SCH (05:52)
[2019-03-29] MEDS: PIPER-TAZO 3.375 GM IV (PMX) 100 ML IVPB SCH ×3 (05:52→17:46)
--- NOTE | 2019-03-29 08:28 | CONS ---
Assessment/Plan Assessment/Plan Assessment/Plan (Daily) Assessment/Plan (Daily) Assessment/Plan Assessment/Plan Hospital Course (Demo Recall) 1. Anemia of chronic disease --per DR Kiser note "pt is noted to have a macrocytic anemia which is mostly likely 2/2 underlying myelodysplastic syndrome" 2. Chronic kidney disease. 3. Hypertension. 4. Paroxysmal atrial fibrillation. 5. Cerebrovascular accident. 6. Possible meningioma. 7. Vent dependent respiratory failure. 8. Dysphagia, status post G-tube. 9. S/P colonoscopy 03/20 -found severe diverticulosis of left side of colon with spasm and poor prep 10. Walled off diverticular perforation abscess - no free air, could be also fistula. CT abd 03/21: 1. Sigmoid diverticulosis with a focal area of abnormal wall thickening of the proximal sigmoid colon with an adjacent gas containing fluid collection measuring 3.1 x 3.2 x 8.5 cm extending along the left iliopsoas/iliacus muscles. This could represent peridiverticular abscess/contained perforation. No additio nal fluid collection is identified in the remainder of the abdomen. 2. Complete atelectasis of the left lower lobe. Query mucus plugging. Consider bronchoscopy for further evaluation. 3. Unchanged left adrenal nodule. 4. Cholelithiasis. 5. Splenomegaly. 6. Peg tube is in satisfactory position. 7. Multiple bilateral renal cysts. 8. Aortoiliac vascular calcifications with no aneurysmal dilatation. PLAN: Family refused a surgical intervention. IR cannot put a drain Since the patient is totally asymptomatic and has no evidence of peritonitis we may start feeding through the G-tube and to continue antibiotic Patient is tolerating feeding and will continue that. Her WBC is within normal limit. We will repeat CAT scan after 2 weeks Yesterday discussed with the staff and told him to increase the feeding which patient is tolerating it and has no GI symptoms or leukocytosis or fever. We will continue with the present care Consultation Date/Type/Reason Admit Date/Time March 17, 2019 at 14:33 Initial Consult Date 03/18/19 Requesting Provider: IMER VARGAS Date/Time of Note DATE: 03/29/19 TIME: 08:27 24 HR Interval Summary Subjective hx not possible: pt non-verbal Constitutional: no complaints, improved Exam/Review of Systems Exam Vitals Vital Signs Date Temp Pulse Resp B/P (MAP) Pulse Ox O2 O2 Flow FiO2 Time Delivery Rate 03/29/19 59 20 98 30 08:07 03/29/19 97.4 122/56 04:00 (78) 03/28/19 Mechanical 15:40 Ventilator Intake and Output 03/28/19 03/28/19 03/29/19 1515:00 23:00 07:00 IntakeIntake Total 390 ml 2200 ml OutputOutput Total 450 ml 350 ml BalanceBalance -60 ml 1850 ml Constitutional: non-verbal ENMT: intubated Cardiovascular: regular rate and rhythm, nl pulses Extremities: normal pulses Neurological: confused Results Result Diagram: 03/29/19 0516 03/29/19 0516 Results 24hrs Laboratory Tests Test 03/29/19 05:16 03/29/19 07:09 White Blood Count 7.2 Red Blood Count 2.83 L Hemoglobin 8.7 L Hematocrit 29.5 L Mean Corpuscular Volume 104.2 H Mean Corpuscular Hemoglobin 30.7 Mean Corpuscular Hemoglobin Concent 29.5 L Red Cell Distribution Width 18.4 H Platelet Count 280 Mean Platelet Volume 8.8 Immature Granulocytes % 0.700 H Neutrophils % 71.0 Lymphocytes % 22.2 Monocytes % 4.3 Eosinophils % 1.5 Basophils % 0.3 Nucleated Red Blood Cells % 0.0 Immature Granulocytes # 0.050 H Neutrophils # 5.1 Lymphocytes # 1.6 Monocytes # 0.3 Eosinophils # 0.1 Basophils # 0.0 Nucleated Red Blood Cells # 0.0 Sodium Level 141 Potassium Level 4.1 Chloride Level 119 H Carbon Dioxide Level 16 L Anion Gap 6 Blood Urea Nitrogen 8 Creatinine 0.73 Est Glomerular Filtrat Rate mL/min Glucose Level 108 Calcium Level 8.0 L Magnesium Level 2.0 Vancomycin Level Trough 10.3 Medications Medication Current Medications Acetaminophen (Tylenol Liquid) 650 mg Q4H PRN GTB MILD PAIN 1-3; Start 03/17/19 at 21:30 Bisacodyl (Dulcolax Supp) 10 mg DAILY PRN [place] CONSTIPATION; Start 03/17/19 at 21:00 Chlorhexidine Gluconate (Peridex) 15 ml Q12H MM Last administered on 03/28/19at 20:46; Admin Dose 15 ML; Start 03/17/19 at 21:00 Digoxin (Digoxin) 0.125 mg DAILY@13 PO Last administered on 03/27/19 13:16; Admin Dose 0.125 MG; Start 03/18/19 at 13:00 Docusate Sodium (Colace) 100 mg DAILY PO Last administered on 03/28/19 08:07; Admin Dose 100 MG; Start 03/18/19 at 09:00 Levetiracetam (Keppra Liquid) 250 mg Q12H GTB Last administered on 03/28/19 20:46; Admin Dose 250 MG; Start 03/17/19 at 21:00 Magnesium Hydroxide (Milk Of Mag) 30 ml DAILY PRN GTB CONSTIPATION; Start 03/17/19 at 21:00 Metoprolol Tartrate (Lopressor) 25 mg BID GTB Last administered on 03/28/19 08:07; Admin Dose 25 MG; Start 03/17/19 at 21:00 Lansoprazole (Prevacid) 30 mg DAILY@06 GTB Last administered on 03/29/19 05:52; Admin Dose 30 MG; Start 03/18/19 at 06:00 Epoetin Amor-epbx (RETACRIT(non-esrd)) 40,000 unit We@1700 SC Last administered on 03/26/19 17:30; Admin Dose 40,000 UNIT; Start 03/19/19 at 17:00 Multivit/Ca Carb/ B Cmplx/FA/Prenat (Renee-Antonio) 1 tab DAILY GTB Last administered on 03/28/19 08:07; Admin Dose 1 TAB; Start 03/21/19 at 09:00 Zinc Sulfate (Zinc Sulfate) 220 mg DAILY GTB Last administered on 03/28/19 08:07; Admin Dose 220 MG; Start 03/21/19 at 09:00 Collagenase (Santyl) 1 applic BID TOP Last administered on 03/28/19 20:46; Admin Dose 1 APPLIC; Start 03/20/19 at 16:28 Vancomycin HCl (Vanco Iv Per Pharmacy) VANCOMYCIN PER PHARMACY PER PROTOCOL XX ; Start 03/23/19 at 06:30 Piperacillin Sod/ Tazobactam Sod 100 ml @ 200 mls/hr Q6 IVPB Last administered on 03/29/19 05:52; Admin Dose 200 MLS/HR; Start 03/23/19 at 06:30 Vancomycin HCl 250 ml @ 125 mls/hr Q48H IVPB Last administered on 03/27/19 10:20; Admin Dose 125 MLS/HR; Start 03/25/19 at 08:00; Stop 03/29/19 at 12:00 Acetylcysteine (Mucomyst) 2 ml Q6H RESP THERAPY NEB Last administered on 03/29/19 07:59; Admin Dose 2 ML; Start 03/24/19 at 11:00 Levalbuterol (Xopenex Hfa) 2 puff Q6H RESP THERAPY INH Last administered on 03/29/19 07:58; Admin Dose 2 PUFF; Start 03/24/19 at 14:00 Triamcinolone Acetonide (Kenalog 0.1% Cr) 1 applic BID TOP Last administered on 03/28/19 20:46; Admin Dose 1 APPLIC; Start 03/27/19 at 09:00 Potassium Chloride/Dextrose/ Sod Cl 1,000 ml @ 75 mls/hr [id number] IV Last administered on 03/28/19 23:42; Admin Dose 75 MLS/HR; Start 03/27/19 at 08:00 Vancomycin HCl 1.25 gm/Sodium Chloride 250 ml @ 83.333 mls/ hr Q48H IVPB ; Start 03/31/19 at 06:00 TYSON ALICEA MD March 29, 2019 08:28
[2019-03-29] MEDS: DOCUSATE SODIUM 100 MG CAP PO SCH (08:54)
[2019-03-29] MEDS: MULTIVIT/CA CARB/B CMPLX/FA TAB GTB SCH (08:54)
[2019-03-29] MEDS: METOPROLOL 25 MG TAB GTB SCH ×2 (08:54→20:47)
[2019-03-29] MEDS: ZINC SULFATE 220 MG CAP GTB SCH (08:54)
[2019-03-29] MEDS: LEVETIRACETAM (100 MG/ML) 5ML CUP GTB SCH ×2 (08:55→20:46)
[2019-03-29] MEDS: COLLAGENASE 5 GM (UD JAR) TOP SCH ×2 (08:55→20:46)
[2019-03-29] MEDS: VANCOMYCIN 1 GM 250 ML IVPB SCH (08:55)
[2019-03-29] MEDS: CHLORHEXIDINE GLUCONATE 15 ML UD CUP MM SCH ×2 (08:55→20:46)
[2019-03-29] MEDS: TRIAMCINOLONE ACET 0.1% 15 GM CR TOP SCH ×2 (08:55→20:47)
--- NOTE | 2019-03-29 10:15 | PN ---
DATE: 03/29/2019 SUBJECTIVE: The patient is stable, no events overnight. No fevers, chills, nausea, vomiting. OBJECTIVE: VITAL SIGNS: Blood pressure is 113/54, pulse 58, respirations 20, temperature 97.7. HEENT: Head is normocephalic. NECK: Supple. HEART: Regular rate. LUNGS: Show diminished breath sounds at the base. ABDOMEN: Soft, nontender to palpation without rebound or guarding. EXTREMITIES: Negative for clubbing, cyanosis, no edema. DERMATOLOGIC: No rashes. MUSCULOSKELETAL: No joint effusions. NEUROLOGIC: No change in exam. MEDICATIONS: Have been reviewed. LABORATORY DATA: Has been reviewed. ASSESSMENT AND PLAN: 1. Chronic kidney disease, stage III. Renal function is stable. Continue current treatment plans, supportive care, renally dose all meds. 2. Hypokalemia, improved. 3. Hypomagnesemia. Continue to monitor and replace as needed. 4. Anemia. Monitor hemoglobin and hematocrit levels. 5. Mineral bone disorder, monitor calcium and phosphorus levels. 6. Hypertension. Continue current blood pressure regimen. 7. Mild diverticulosis with possible intraabdominal abscess. Continue to monitor. Follow up with g eneral surgery. 8. Ventilator dependent respiratory failure. Vent settings have been reviewed. Continue to monitor . 9. Dysphagia. Continue tube feeding. 10. Chronic encephalopathy. No change. 11. Seizure disorder. Continue medical management. Dictated By: RAJINDER WATTS/NTS Conf#: [id number] DID#: [id number] CC: JAYLEN LUGO MD;*EndCC*
--- NOTE | 2019-03-29 11:02 | PN ---
Date/Time of Note Date/Time of Note DATE: 03/29/19 TIME: 11:02 Assessment/Plan VTE Prophylaxis Risk score (from Ns)>0 risk: 8 SCD applied (from Ns): Yes Pharmacological prophylaxis: LMWH Lines/Catheters IV C[facility]ter Type (from [facility]): Peripheral IV Urinary Cath still in place: Yes Reason Cath still needed: skin wounds contaminated by urine Assessment/Plan Hospital Course -Hypokalemia, resolved -Hypomagnesium - replace mag. am Mag level -Diverticular abscess, Dr Mario is following in surgical consultation. Continue NPO, IVF. -Severe diverticulosis with spasm per colonoscopy. Dr. Galdamez is following in gastroenterology consultation. -Anemia. Stool for OB neg. Continue Epogen and Iron supplementation. Dr. Kiser is following in hematology consultation -Ventilator dependent respiratory failure with tracheostomy. Dr. Davenport is follo wing in pulmonology consultation. -Acute on chronic kidney disease. Monitor BUN and creatinine. Dr. Grant is following in nephrology consultation -Atrial fibrillation, continue metoprolol -Diastolic congestive heart failure. Dr. Hernandez is following in cardiology consultation. -Pulmonary fibrosis, continue Pulmicort. -Dysphagia with G-tube. -Chronic encephalopathy -COPD -History of CVA, continue aspirin. -Seizure disorder/status epilepticus. Continue Keppra and Ativan as needed. -MRSA nares colonization Result Diagram: 03/29/19 0516 03/29/19 0516 Results 24hrs Laboratory Tests Test 03/29/19 05:16 03/29/19 07:09 White Blood Count 7.2 Red Blood Count 2.83 L Hemoglobin 8.7 L Hematocrit 29.5 L Mean Corpuscular Volume 104.2 H Mean Corpuscular Hemoglobin 30.7 Mean Corpuscular Hemoglobin Concent 29.5 L Red Cell Distribution Width 18.4 H Platelet Count 280 Mean Platelet Volume 8.8 Immature Granulocytes % 0.700 H Neutrophils % 71.0 Lymphocytes % 22.2 Monocytes % 4.3 Eosinophils % 1.5 Basophils % 0.3 Nucleated Red Blood Cells % 0.0 Immature Granulocytes # 0.050 H Neutrophils # 5.1 Lymphocytes # 1.6 Monocytes # 0.3 Eosinophils # 0.1 Basophils # 0.0 Nucleated Red Blood Cells # 0.0 Sodium Level 141 Potassium Level 4.1 Chloride Level 119 H Carbon Dioxide Level 16 L Anion Gap 6 Blood Urea Nitrogen 8 Creatinine 0.73 Est Glomerular Filtrat Rate mL/min Glucose Level 108 Calcium Level 8.0 L Magnesium Level 2.0 Vancomycin Level Trough 10.3 Subjective 24 Hr Interval Summary Free Text/Dictation Patient is sedated and on vent via trach Exam/Review of Systems Exam Vitals Vital Signs Date Temp Pulse Resp B/P (MAP) Pulse Ox O2 O2 Flow FiO2 Time Delivery Rate 03/29/19 58 23 98 30 09:56 03/29/19 97.7 113/54 Trach 08:29 (73) Collar Intake and Output 03/28/19 03/28/19 03/29/19 1414:59 22:59 06:59 IntakeIntake Total 390 ml 2200 ml OutputOutput Total 450 ml 350 ml BalanceBalance -60 ml 1850 ml Constitutional: well developed Head: normocephalic, atraumatic Neck: supple Respiratory: diminished breath sounds Cardiovascular: regular rate and rhythm Gastrointestinal: soft, non-tender Extremities: normal pulses Results Results 24hrs Laboratory Tests Test 03/29/19 05:16 03/29/19 07:09 White Blood Count 7.2 Red Blood Count 2.83 L Hemoglobin 8.7 L Hematocrit 29.5 L Mean Corpuscular Volume 104.2 H Mean Corpuscular Hemoglobin 30.7 Mean Corpuscular Hemoglobin Concent 29.5 L Red Cell Distribution Width 18.4 H Platelet Count 280 Mean Platelet Volume 8.8 Immature Granulocytes % 0.700 H Neutrophils % 71.0 Lymphocytes % 22.2 Monocytes % 4.3 Eosinophils % 1.5 Basophils % 0.3 Nucleated Red Blood Cells % 0.0 Immature Granulocytes # 0.050 H Neutrophils # 5.1 Lymphocytes # 1.6 Monocytes # 0.3 Eosinophils # 0.1 Basophils # 0.0 Nucleated Red Blood Cells # 0.0 Sodium Level 141 Potassium Level 4.1 Chloride Level 119 H Carbon Dioxide Level 16 L Anion Gap 6 Blood Urea Nitrogen 8 Creatinine 0.73 Est Glomerular Filtrat Rate mL/min Glucose Level 108 Calcium Level 8.0 L Magnesium Level 2.0 Vancomycin Level Trough 10.3 Medications Medication Current Medications Acetaminophen (Tylenol Liquid) 650 mg Q4H PRN GTB MILD PAIN 1-3; Start 03/17/19 at 21:30 Bisacodyl (Dulcolax Supp) 10 mg DAILY PRN [place] CONSTIPATION; Start 03/17/19 at 21:00 Chlorhexidine Gluconate (Peridex) 15 ml Q12H MM Last administered on 03/29/19 08:55; Admin Dose 15 ML; Start 03/17/19 at 21:00 Digoxin (Digoxin) 0.125 mg DAILY@13 PO Last administered on 03/27/19 13:16; Admin Dose 0.125 MG; Start 03/18/19 at 13:00 Docusate Sodium (Colace) 100 mg DAILY PO Last administered on 03/29/19 08:54; Admin Dose 100 MG; Start 03/18/19 at 09:00 Levetiracetam (Keppra Liquid) 250 mg Q12H GTB Last administered on 03/29/19 08:55; Admin Dose 250 MG; Start 03/17/19 at 21:00 Magnesium Hydroxide (Milk Of Mag) 30 ml DAILY PRN GTB CONSTIPATION; Start 03/17/19 at 21:00 Metoprolol Tartrate (Lopressor) 25 mg BID GTB Last administered on 03/28/19 08:07; Admin Dose 25 MG; Start 03/17/19 at 21:00 Lansoprazole (Prevacid) 30 mg DAILY@06 GTB Last administered on 03/29/19 05:52; Admin Dose 30 MG; Start 03/18/19 at 06:00 Epoetin Amor-epbx (RETACRIT(non-esrd)) 40,000 unit We@1700 SC Last administered on 03/26/19at 17:30; Admin Dose 40,000 UNIT; Start 03/19/19 at 17:00 Multivit/Ca Carb/ B Cmplx/FA/Prenat (Renee-Antonio) 1 tab DAILY GTB Last administered on 03/29/19 08:54; Admin Dose 1 TAB; Start 03/21/19 at 09:00 Zinc Sulfate (Zinc Sulfate) 220 mg DAILY GTB Last administered on 03/29/19 08:54; Admin Dose 220 MG; Start 03/21/19 at 09:00 Collagenase (Santyl) 1 applic BID TOP Last administered on 03/29/19 08:55; Admin Dose 1 APPLIC; Start 03/20/19 at 16:28 Vancomycin HCl (Vanco Iv Per Pharmacy) VANCOMYCIN PER PHARMACY PER PROTOCOL XX ; Start 03/23/19 at 06:30 Piperacillin Sod/ Tazobactam Sod 100 ml @ 200 mls/hr Q6 IVPB Last administered on 03/29/19 05:52; Admin Dose 200 MLS/HR; Start 03/23/19 at 06:30 Vancomycin HCl 250 ml @ 125 mls/hr Q48H IVPB Last administered on 03/29/19 08:55; Admin Dose 125 MLS/HR; Start 03/25/19 at 08:00; Stop 03/29/19 at 12:00 Acetylcysteine (Mucomyst) 2 ml Q6H RESP THERAPY NEB Last administered on 03/29/19 07:59; Admin Dose 2 ML; Start 03/24/19 at 11:00 Levalbuterol (Xopenex Hfa) 2 puff Q6H RESP THERAPY INH Last administered on 03/29/19 07:58; Admin Dose 2 PUFF; Start 03/24/19 at 14:00 Triamcinolone Acetonide (Kenalog 0.1% Cr) 1 applic BID TOP Last administered on 03/29/19at 08:55; Admin Dose 1 APPLIC; Start 03/27/19 at 09:00 Potassium Chloride/Dextrose/ Sod Cl 1,000 ml @ 75 mls/hr [id number] IV Last administered on 03/28/19at 23:42; Admin Dose 75 MLS/HR; Start 03/27/19 at 08:00 Vancomycin HCl 1.25 gm/Sodium Chloride 250 ml @ 83.333 mls/ hr Q48H IVPB ; Start 03/31/19 at 06:00 ROSALVA SANCHES March 29, 2019 11:02
[2019-03-29] MEDS: DIGOXIN 0.125 MG TAB PO SCH (12:39)
[2019-03-29] MEDS: D5W-0.45 NACL + KCL 40 MEQ 1,000 ML IV SCH (13:20)
--- NOTE | 2019-03-29 13:27 | CONS ---
Consultation Date/Type/Reason Admit Date/Time March 17, 2019 at 14:33 Initial Consult Date 03/18/19 Type of Consult SUBJECTIVE: Pt is with chronic encephalopathy, Trach to vent. No acute events over night. NO fevers. VS: stable T: 98.3 LABS: Reviewed. WBC- 7.2 Indwelling: Trach, PEG, Damon Antimicrobials: Vancomycin, Zosyn Physical examination: GEN: Chronically ill-appearing elderly woman, in no distress. HENT: Head atraumatic normocephalic; neck is supple; tracheostomy present PULM: chest rise symmetrical, breath sounds diminished bases. Heart: S1-S2. Abdomen: soft, bowel sounds present. Assessment: 1. Sigmoid diverticulosis with abscess 2. Left lower lobe atelectasis ? PNA 3. Chronic respiratory failure and dysphagia 4. Seizure disorder 5. Acute on chronic encephalopathy 6. Chronic kidney disease 7. Urinary tract infection as per urinalysis Plan: Clinically unchanged. No aggressive measures per family. Will continue current antibiotics. Requesting Provider: IMER VARGAS Date/Time of Note DATE: 03/29/19 TIME: 13:24 Exam/Review of Systems Exam Vitals Vital Signs Date Temp Pulse Resp B/P (MAP) Pulse Ox O2 O2 Flow FiO2 Time Delivery Rate 03/29/19 98.3 55 20 144/67 100 12:04 (92) 03/29/19 30 11:16 03/29/19 Trach 08:29 Collar Intake and Output 03/28/19 03/28/19 03/29/19 1515:00 23:00 07:00 IntakeIntake Total 390 ml 2200 ml OutputOutput Total 450 ml 350 ml BalanceBalance -60 ml 1850 ml Results Result Diagram: 03/29/19 0516 03/29/19 0516 Results 24hrs Laboratory Tests Test 03/29/19 05:16 03/29/19 07:09 White Blood Count 7.2 Red Blood Count 2.83 L Hemoglobin 8.7 L Hematocrit 29.5 L Mean Corpuscular Volume 104.2 H Mean Corpuscular Hemoglobin 30.7 Mean Corpuscular Hemoglobin Concent 29.5 L Red Cell Distribution Width 18.4 H Platelet Count 280 Mean Platelet Volume 8.8 Immature Granulocytes % 0.700 H Neutrophils % 71.0 Lymphocytes % 22.2 Monocytes % 4.3 Eosinophils % 1.5 Basophils % 0.3 Nucleated Red Blood Cells % 0.0 Immature Granulocytes # 0.050 H Neutrophils # 5.1 Lymphocytes # 1.6 Monocytes # 0.3 Eosinophils # 0.1 Basophils # 0.0 Nucleated Red Blood Cells # 0.0 Sodium Level 141 Potassium Level 4.1 Chloride Level 119 H Carbon Dioxide Level 16 L Anion Gap 6 Blood Urea Nitrogen 8 Creatinine 0.73 Est Glomerular Filtrat Rate mL/min Glucose Level 108 Calcium Level 8.0 L Magnesium Level 2.0 Vancomycin Level Trough 10.3 Medications Medication Current Medications Acetaminophen (Tylenol Liquid) 650 mg Q4H PRN GTB MILD PAIN 1-3; Start 03/17/19 at 21:30 Bisacodyl (Dulcolax Supp) 10 mg DAILY PRN [place] CONSTIPATION; Start 03/17/19 at 21:00 Chlorhexidine Gluconate (Peridex) 15 ml Q12H MM Last administered on 03/29/19 08:55; Admin Dose 15 ML; Start 03/17/19 at 21:00 Digoxin (Digoxin) 0.125 mg DAILY@13 PO Last administered on 03/27/19 13:16; Admin Dose 0.125 MG; Start 03/18/19 at 13:00 Docusate Sodium (Colace) 100 mg DAILY PO Last administered on 03/29/19 08:54; Admin Dose 100 MG; Start 03/18/19 at 09:00 Levetiracetam (Keppra Liquid) 250 mg Q12H GTB Last administered on 03/29/19 08:55; Admin Dose 250 MG; Start 03/17/19 at 21:00 Magnesium Hydroxide (Milk Of Mag) 30 ml DAILY PRN GTB CONSTIPATION; Start 03/17/19 at 21:00 Metoprolol Tartrate (Lopressor) 25 mg BID GTB Last administered on 03/28/19 08:07; Admin Dose 25 MG; Start 03/17/19 at 21:00 Lansoprazole (Prevacid) 30 mg DAILY@06 GTB Last administered on 03/29/19 05:52; Admin Dose 30 MG; Start 03/18/19 at 06:00 Epoetin Amor-epbx (RETACRIT(non-esrd)) 40,000 unit We@1700 SC Last administered on 03/26/19 17:30; Admin Dose 40,000 UNIT; Start 03/19/19 at 17:00 Multivit/Ca Carb/ B Cmplx/FA/Prenat (Renee-Antonio) 1 tab DAILY GTB Last administered on 03/29/19 08:54; Admin Dose 1 TAB; Start 03/21/19 at 09:00 Zinc Sulfate (Zinc Sulfate) 220 mg DAILY GTB Last administered on 03/29/19 08:54; Admin Dose 220 MG; Start 03/21/19 at 09:00 Collagenase (Santyl) 1 applic BID TOP Last administered on 03/29/19 08:55; Admin Dose 1 APPLIC; Start 03/20/19 at 16:28 Vancomycin HCl (Vanco Iv Per Pharmacy) VANCOMYCIN PER PHARMACY PER PROTOCOL XX ; Start 03/23/19 at 06:30 Piperacillin Sod/ Tazobactam Sod 100 ml @ 200 mls/hr Q6 IVPB Last administered on 03/29/19 11:51; Admin Dose 200 MLS/HR; Start 03/23/19 at 06:30 Acetylcysteine (Mucomyst) 2 ml Q6H RESP THERAPY NEB Last administered on 03/29/19 07:59; Admin Dose 2 ML; Start 03/24/19 at 11:00 Levalbuterol (Xopenex Hfa) 2 puff Q6H RESP THERAPY INH Last administered on 03/29/19 07:58; Admin Dose 2 PUFF; Start 03/24/19 at 14:00 Triamcinolone Acetonide (Kenalog 0.1% Cr) 1 applic BID TOP Last administered on 03/29/19 08:55; Admin Dose 1 APPLIC; Start 03/27/19 at 09:00 Potassium Chloride/Dextrose/ Sod Cl 1,000 ml @ 75 mls/hr [id number] IV Last administered on 03/28/19 23:42; Admin Dose 75 MLS/HR; Start 03/27/19 at 08:00 Vancomycin HCl 1.25 gm/Sodium Chloride 250 ml @ 83.333 mls/ hr Q48H IVPB ; Start 03/31/19 at 06:00 MADONNA ODELL March 29, 2019 13:27
--- NOTE | 2019-03-29 13:27 | CONS ---
Assessment/Plan Assessment/Plan Assessment/Plan (Daily) 73 yo with #Anemia -Hg ok at 8.7 today -pt is noted to have a macrocytic anemia which is mostly likely 2/2 underlying myelodysplastic syndrome -continue epogen 40,000 units weekly -iron panel reveals mild iron deficiency. s/p ferrilict -vitamin b12 and folate levels are ok -past workup for anemia reveals a negative SPEP and no signs of hemolysis. will however recheck LDH, haptoglobin and retic -f/u colonoscopy results # fluid collection -measuring 3.1 x 3.2 x 8.5 cm extending along the left iliopsoas/iliacus muscles. This could represent peridiverticular abscess/contained perforation. -IR to drain -pt is currently on vancomycin and zosyn Patient seen in collaboration with Dr Kiser/ [facility] staff Consultation Date/Type/Reason Admit Date/Time March 17, 2019 at 14:33 Initial Consult Date 03/18/19 Type of Consult Hematology/Oncology Reason for Consultation Anemia Requesting Provider: IMER VARGAS Date/Time of Note DATE: 03/29/19 TIME: 13:27 24 HR Interval Summary Free Text/Dictation patient seems comfortable on trach to vent no GI bleed reported no new events reported last night Subjective hx not possible: pt non-verbal Constitutional: requiring O2 Exam/Review of Systems Exam Vitals Vital Signs Date Temp Pulse Resp B/P (MAP) Pulse Ox O2 O2 Flow FiO2 Time Delivery Rate 03/29/19 98.3 55 20 144/67 100 12:04 (92) 03/29/19 30 11:16 03/29/19 Trach 08:29 Collar Intake and Output 03/28/19 03/28/19 03/29/19 1515:00 23:00 07:00 IntakeIntake Total 390 ml 2200 ml OutputOutput Total 450 ml 350 ml BalanceBalance -60 ml 1850 ml Constitutional: non-verbal, frail Psych: nl mood/affect Eyes: nl sclera ENMT: nl external ears & nose Neck: other (tach intact) Respiratory: diminished breath sounds Cardiovascular: nl pulses, other (s1s2) Gastrointestinal: soft, non-tender, other (gt intact) Musculoskeletal: muscle weakness, range of motion Extremities: normal pulses Neurological: confused, lethargic Results Result Diagram: 5/18/19 0516 5/18/19 0516 Results 24hrs Laboratory Tests Test 03/29/19 05:16 03/29/19 07:09 White Blood Count 7.2 Red Blood Count 2.83 L Hemoglobin 8.7 L Hematocrit 29.5 L Mean Corpuscular Volume 104.2 H Mean Corpuscular Hemoglobin 30.7 Mean Corpuscular Hemoglobin Concent 29.5 L Red Cell Distribution Width 18.4 H Platelet Count 280 Mean Platelet Volume 8.8 Immature Granulocytes % 0.700 H Neutrophils % 71.0 Lymphocytes % 22.2 Monocytes % 4.3 Eosinophils % 1.5 Basophils % 0.3 Nucleated Red Blood Cells % 0.0 Immature Granulocytes # 0.050 H Neutrophils # 5.1 Lymphocytes # 1.6 Monocytes # 0.3 Eosinophils # 0.1 Basophils # 0.0 Nucleated Red Blood Cells # 0.0 Sodium Level 141 Potassium Level 4.1 Chloride Level 119 H Carbon Dioxide Level 16 L Anion Gap 6 Blood Urea Nitrogen 8 Creatinine 0.73 Est Glomerular Filtrat Rate mL/min Glucose Level 108 Calcium Level 8.0 L Magnesium Level 2.0 Vancomycin Level Trough 10.3 Medications Medication Current Medications Acetaminophen (Tylenol Liquid) 650 mg Q4H PRN GTB MILD PAIN 1-3; Start 03/17/19 at 21:30 Bisacodyl (Dulcolax Supp) 10 mg DAILY PRN [place] CONSTIPATION; Start 03/17/19 at 21:00 Chlorhexidine Gluconate (Peridex) 15 ml Q12H MM Last administered on 03/29/19at 08:55; Admin Dose 15 ML; Start 03/17/19 at 21:00 Digoxin (Digoxin) 0.125 mg DAILY@13 PO Last administered on 03/27/19at 13:16; Admin Dose 0.125 MG; Start 03/18/19 at 13:00 Docusate Sodium (Colace) 100 mg DAILY PO Last administered on 03/29/19at 08:54; Admin Dose 100 MG; Start 03/18/19 at 09:00 Levetiracetam (Keppra Liquid) 250 mg Q12H GTB Last administered on 03/29/19at 08:55; Admin Dose 250 MG; Start 03/17/19 at 21:00 Magnesium Hydroxide (Milk Of Mag) 30 ml DAILY PRN GTB CONSTIPATION; Start 03/17/19 at 21:00 Metoprolol Tartrate (Lopressor) 25 mg BID GTB Last administered on 03/28/19 08:07; Admin Dose 25 MG; Start 03/17/19 at 21:00 Lansoprazole (Prevacid) 30 mg DAILY@06 GTB Last administered on 03/29/19 05:52; Admin Dose 30 MG; Start 03/18/19 at 06:00 Epoetin Amor-epbx (RETACRIT(non-esrd)) 40,000 unit We@1700 SC Last administered on 03/26/19 17:30; Admin Dose 40,000 UNIT; Start 03/19/19 at 17:00 Multivit/Ca Carb/ B Cmplx/FA/Prenat (Renee-Antonio) 1 tab DAILY GTB Last adminis tered on 03/29/19 08:54; Admin Dose 1 TAB; Start 03/21/19 at 09:00 Zinc Sulfate (Zinc Sulfate) 220 mg DAILY GTB Last administered on 03/29/19 08:54; Admin Dose 220 MG; Start 03/21/19 at 09:00 Collagenase (Santyl) 1 applic BID TOP Last administered on 03/29/19 08:55; Admin Dose 1 APPLIC; Start 03/20/19 at 16:28 Vancomycin HCl (Vanco Iv Per Pharmacy) VANCOMYCIN PER PHARMACY PER PROTOCOL XX ; Start 03/23/19 at 06:30 Piperacillin Sod/ Tazobactam Sod 100 ml @ 200 mls/hr Q6 IVPB Last administered on 03/29/19 11:51; Admin Dose 200 MLS/HR; Start 03/23/19 at 06:30 Acetylcysteine (Mucomyst) 2 ml Q6H RESP THERAPY NEB Last administered on 03/29/19 07:59; Admin Dose 2 ML; Start 03/24/19 at 11:00 Levalbuterol (Xopenex Hfa) 2 puff Q6H RESP THERAPY INH Last administered on 03/29/19 07:58; Admin Dose 2 PUFF; Start 03/24/19 at 14:00 Triamcinolone Acetonide (Kenalog 0.1% Cr) 1 applic BID TOP Last administered on 03/29/19 08:55; Admin Dose 1 APPLIC; Start 03/27/19 at 09:00 Potassium Chloride/Dextrose/ Sod Cl 1,000 ml @ 75 mls/hr [id number] IV Last administered on 03/28/19at 23:42; Admin Dose 75 MLS/HR; Start 03/27/19 at 08:00 Vancomycin HCl 1.25 gm/Sodium Chloride 250 ml @ 83.333 mls/ hr Q48H IVPB ; Start 03/31/19 at 06:00 FRANCESCO SIU March 29, 2019 13:27
--- NOTE | 2019-03-29 13:38 | CONS ---
Consult Date/Type/Reason Admit Date/Time March 17, 2019 at 14:33 Initial Consult Date 03/18/19 Requesting Provider: IMER VARGAS Date/Time of Note DATE: 03/29/19 TIME: 13:36 Subjective NO acute events - pt comfortable - resp support - euvolemic by exam. NO ectopy noted on tele. ROS: No fever, no chills, no nausea, no vomiting, no diarrhea/constipation - per nurse, chronic SOB Objective Vitals Vital Signs Date Temp Pulse Resp B/P (MAP) Pulse Ox O2 O2 Flow FiO2 Time Delivery Rate 03/29/19 98.3 55 20 144/67 100 12:04 (92) 03/29/19 30 11:16 03/29/19 Trach 08:29 Collar Intake and Output 03/28/19 03/28/19 03/29/19 1515:00 23:00 07:00 IntakeIntake Total 390 ml 2200 ml OutputOutput Total 450 ml 350 ml BalanceBalance -60 ml 1850 ml Exam General: WN/WD/NAD, AOx 0 HEENT: Unicetric/atraumatic/EOMI (does not follow commands) NECK: trach Lymph: no lymphadenopathy HEART: regular with no S3, II/ systolic murmur at apex LUNGS: Coarse sounds ABD: soft, NT, ND, +BS - PEG : Intact Neuro: non focal SKIN: chronic changes EXT: trace edema Results/Medications Result Diagram: 03/29/19 0516 03/29/19 0516 Results 24 hrs Laboratory Tests Test 03/29/19 05:16 03/29/19 07:09 White Blood Count 7.2 Red Blood Count 2.83 L Hemoglobin 8.7 L Hematocrit 29.5 L Mean Corpuscular Volume 104.2 H Mean Corpuscular Hemoglobin 30.7 Mean Corpuscular Hemoglobin Concent 29.5 L Red Cell Distribution Width 18.4 H Platelet Count 280 Mean Platelet Volume 8.8 Immature Granulocytes % 0.700 H Neutrophils % 71.0 Lymphocytes % 22.2 Monocytes % 4.3 Eosinophils % 1.5 Basophils % 0.3 Nucleated Red Blood Cells % 0.0 Immature Granulocytes # 0.050 H Neutrophils # 5.1 Lymphocytes # 1.6 Monocytes # 0.3 Eosinophils # 0.1 Basophils # 0.0 Nucleated Red Blood Cells # 0.0 Sodium Level 141 Potassium Level 4.1 Chloride Level 119 H Carbon Dioxide Level 16 L Anion Gap 6 Blood Urea Nitrogen 8 Creatinine 0.73 Est Glomerular Filtrat Rate mL/min Glucose Level 108 Calcium Level 8.0 L Magnesium Level 2.0 Vancomycin Level Trough 10.3 Home Meds Reported Medications Levalbuterol Hcl* (Xopenex*) 1.25 Mg/0.5 Ml Vial.neb, 1.25 MG INHALATION Q6H for WHEEZING AND SOB, EA 03/17/19 Levalbuterol Hcl* (Levalbuterol Hcl*) 1.25 Mg/0.5 Ml Vial.neb, 1.25 MG INHALATION Q3H, VIAL 03/17/19 Ascorbic Acid (Vitamin C) 500 Mg Tab, 500 MG GTB DAILY, TAB 03/17/19 Cran/Vitc/Mannose/Inulin/Brom (Uti-Stat Liquid) 3,875 Mg/30 Ml Liquid, 30 ML GTB BID 03/17/19 Acetaminophen* (Acetaminophen*) 500 MG Extra Strength Tablet, 1000 MG PO Q4H PRN for NEEDED, TAB UNTIL 04/16/19 03/17/19 Acetaminophen* (Tylenol*) 325 Mg Tablet, 650 MG GTB BID PRN for PAIN MGT, TAB 03/17/19 Acetaminophen* (Tylenol*) 325 Mg Tablet, 650 MG GTB Q4H PRN for MILD PAIN LEVEL 1-3, TAB AND FEVER 101F, END DATE 04/16/19 03/17/19 Acetaminophen* (Tylenol*) 325 Mg Tablet, 650 MG GTB NEEDED PRN for TRACH TUBE CHANGE, TAB 03/17/19 Epoetin Amor (Procrit) 4,000 Unit/1 Ml Vial, 4000 UNIT IJ Q WED, VIAL 03/17/19 Amino Acids/Protein Hydrolys (PRO-STAT LIQUID) 30 Ml Liquid.pkt, 30 ML GTB DAILY 03/17/19 Multivitamins* (Theragran*) 1 Tab Tab, 1 TAB GTB DAILY, TAB 03/17/19 Magnesium Hydroxide* (Milk Of Magnesia*) 400 Mg/5 Ml Oral.susp, 30 ML GTB NEEDED, ML END DATE 04/16/19 03/17/19 Metoprolol Tartrate* (Lopressor*) 25 Mg Tab, 25 MG GTB BID, #60 TAB HOLD IF SBP<110 OR HR<60 03/17/19 Levetiracetam* (Levetiracetam*) 500 Mg/5 Ml Solution, 2.5 ML PO Q12H, ML 03/17/19 Mineral Oil* (Fleet* Mineral Oil Enema) Unknown Strength Oil, 1 APPLIC [place] NEEDED PRN for CONSTIPATION, ENEMA 03/17/19 Bisacodyl (Dulcolax) 10 Mg Supp.rect, 10 MG RC NEEDED, SUPP.RECT UNTIL 04/16/19 03/17/19 Digoxin* (Digox*) 125 Mcg Tablet, 0.125 MG GTB DAILY PRN for HOLD IF HR<60, TAB 03/17/19 Docusate Sodium* (Colace*) 100 Mg Capsule, 100 MG GTB DAILY, #30 CAP 03/17/19 Chlorhexidine Gluconate (Peridex) 473 Ml Mouthwash, 15 ML MM Q12H, BOTTLE 03/17/19 Medications Current Medications Acetaminophen (Tylenol Liquid) 650 mg Q4H PRN GTB MILD PAIN 1-3; Start 03/17/19 at 21:30 Bisacodyl (Dulcolax Supp) 10 mg DAILY PRN [place] CONSTIPATION; Start 03/17/19 at 21:00 Chlorhexidine Gluconate (Peridex) 15 ml Q12H MM Last administered on 03/29/19at 08:55; Admin Dose 15 ML; Start 03/17/19 at 21:00 Digoxin (Digoxin) 0.125 mg DAILY@13 PO Last administered on 03/27/19at 13:16; Admin Dose 0.125 MG; Start 03/18/19 at 13:00 Docusate Sodium (Colace) 100 mg DAILY PO Last administered on 03/29/19at 08:54; Admin Dose 100 MG; Start 03/18/19 at 09:00 Levetiracetam (Keppra Liquid) 250 mg Q12H GTB Last administered on 03/29/19at 08:55; Admin Dose 250 MG; Start 03/17/19 at 21:00 Magnesium Hydroxide (Milk Of Mag) 30 ml DAILY PRN GTB CONSTIPATION; Start 03/17/19 at 21:00 Metoprolol Tartrate (Lopressor) 25 mg BID GTB Last administered on 03/28/19at 08:07; Admin Dose 25 MG; Start 03/17/19 at 21:00 Lansoprazole (Prevacid) 30 mg DAILY@06 GTB Last administered on 03/29/19at 05:52; Admin Dose 30 MG; Start 03/18/19 at 06:00 Epoetin Amor-epbx (RETACRIT(non-esrd)) 40,000 unit We@1700 SC Last administered on 03/26/19at 17:30; Admin Dose 40,000 UNIT; Start 03/19/19 at 17:00 Multivit/Ca Carb/ B Cmplx/FA/Prenat (Renee-Antonio) 1 tab DAILY GTB Last administered on 03/29/19 08:54; Admin Dose 1 TAB; Start 03/21/19 at 09:00 Zinc Sulfate (Zinc Sulfate) 220 mg DAILY GTB Last administered on 03/29/19at 08:54; Admin Dose 220 MG; Start 03/21/19 at 09:00 Collagenase (Santyl) 1 applic BID TOP Last administered on 03/29/19 08:55; Admin Dose 1 APPLIC; Start 03/20/19 at 16:28 Vancomycin HCl (Vanco Iv Per Pharmacy) VANCOMYCIN PER PHARMACY PER PROTOCOL XX ; Start 03/23/19 at 06:30 Piperacillin Sod/ Tazobactam Sod 100 ml @ 200 mls/hr Q6 IVPB Last administered on 03/29/19at 11:51; Admin Dose 200 MLS/HR; Start 03/23/19 at 06:30 Acetylcysteine (Mucomyst) 2 ml Q6H RESP THERAPY NEB Last administered on 03/29/19 07:59; Admin Dose 2 ML; Start 03/24/19 at 11:00 Levalbuterol (Xopenex Hfa) 2 puff Q6H RESP THERAPY INH Last administered on 07:58; Admin Dose 2 PUFF; Start 03/24/19 at 14:00 Triamcinolone Acetonide (Kenalog 0.1% Cr) 1 applic BID TOP Last administered on 03/29/19 08:55; Admin Dose 1 APPLIC; Start 03/27/19 at 09:00 Potassium Chloride/Dextrose/ Sod Cl 1,000 ml @ 75 mls/hr [id number] IV Last administered on 03/28/19at 23:42; Admin Dose 75 MLS/HR; Start 03/27/19 at 08:00 Vancomycin HCl 1.25 gm/Sodium Chloride 250 ml @ 83.333 mls/ hr Q48H IVPB ; Start 03/31/19 at 06:00 Assessment/Plan Hospital Course (Demo Recall) 1. Premature ventricular contractions. Premature ventricular contractions are not confirmed based on my interpretation on telemetry strip. We will monitor clinically now. No new arrhythmia now. NO focal ectopy on tele. Better now - will follow clinically. NO new focal ectopy on tele now. 2. Supraventricular tachycardia, possibly atrial tachycardia versus a short run of atrial tachycardia. No particular treatment is required. Continue to treat the patient with a beta-jude now. She is also on digoxin which is reasonable. Rate controlled now. In sinus now - rachele at times - no pauses. On meds - better.REsolved. 3. Hypertension. Blood pressure is well optimized now, which was actually in the low side. I think it is reasonable to hydrate as needed. BP stable. Stable overall. BP well maintained. 4. Respiratory failure. Continue respiratory therapy. The patient is on the ventilator. 5. Chronic malnourished state. Continue feedings per PEG. At goal. 6. Anemia. Hemoglobin is fairly stable now. No evidence of bleeding. We will monitor clinically. H/H stable now. NO bleeding. Hg 8.7 now. KINGSTON HEARD MD March 29, 2019 13:38
--- NOTE | 2019-03-29 16:41 | PN ---
Date/Time of Note Date/Time of Note DATE: 03/29/19 TIME: 16:36 Assessment/Plan Lines/Catheters IV Catheter Type (from [facility]): Peripheral IV Damon in Place (from [facility]): Yes Assessment/Plan Chief Complaint/Hosp Course 1. Sigmoid diverticulosis with a focal area of abnormal wall thickening of the proximal sigmoid colon with an adjacent gas containing fluid collection measuring 3.1 x 3.2 x 8.5 cm extending along the left iliopsoas/iliacus muscles. This could represent peridiverticular abscess/contained perforation. Not drainable per IR. Family does not want aggressive measures (OR) -Continue Abx per ID -supportive -nutrition ok -cont to obs for now -consider d/w IR again 2. anemia: No overt bleed noted -Monitor and transfuse as needed -Per hematology 3. VDRF: -Pulmonary toilet -Vent management per pulmonary 4. CKD -Limit nephrotoxic meds -Renally dose meds -Per renal 5. Atrial fibrillation history -Rate control 6. Heart failure: -Cardiac optimization 7. Dysphagia with PEG placement -Continue tube feeds with aspiration precautions Thank you. Patient seen and examined in collaboration with Dr. Harry Mario. Subjective 24 Hr Interval Summary Tolerating tf. Vitals wnl. No fevers, labored breathing, congested cough, tele changes, diarrhea, sz, rash. Exam/Review of Systems Vital Signs Vitals Vital Signs Date Temp Pulse Resp B/P (MAP) Pulse Ox O2 O2 Flow FiO2 Time Delivery Rate 03/29/19 98.3 60 20 157/69 100 15:16 (98) 03/29/19 30 15:10 03/29/19 Trach 08:29 Collar Intake and Output 03/28/19 03/28/19 03/29/19 1414:59 22:59 06:59 IntakeIntake Total 390 ml 2200 ml OutputOutput Total 450 ml 350 ml BalanceBalance -60 ml 1850 ml Exam Free Text/Dictation Constitutional: alert; No oriented, No distress Psych: nl mood/affect Head: normocephalic, atraumatic Eyes: nl conjunctiva, EOMI, nl lids, nl sclera ENMT: nl external ears & nose, nl lips & teeth, mucosa pink and moist Neck: supple, non-tender, other (Tracheostomy) Respiratory: normal air movement, other (Vent); No congested cough Cardiovascular: regular rate and rhythm Gastrointestinal: soft, non-tender, other (PEG); No distended Genitourinary - Female: nl external genitalia Musculoskeletal: nl extremities to inspection, nl gait and stance Extremities: normal pulses; No edema Neurological: No nl mental status, No nl speech (Nonverbal, noncommunicative), No nl strength, No focal weakness Skin: No rash or lesions Results Result Diagram: 03/29/19 0516 03/29/19 0516 EULA HICKMAN NP March 29, 2019 16:41
[2019-03-30] VITALS (20 sets, daily range): BP systolic 133–142; BP diastolic 61–68; PULSE 57–70; RESP 19–26
[2019-03-30] MEDS: PIPER-TAZO 3.375 GM IV (PMX) 100 ML IVPB SCH ×4 (00:22→17:37)
[2019-03-30] MEDS: LEVALBUTEROL (HFA) 15 GM INHALER INH SCH ×4 (01:22→19:36)
[2019-03-30] MEDS: ACETYLCYSTEINE 20% 4 ML VIAL NEB SCH ×4 (01:27→19:36)
[2019-03-30] MEDS: D5W-0.45 NACL + KCL 40 MEQ 1,000 ML IV SCH (06:00)
[2019-03-30] MEDS: LANSOPRAZOLE 30 MG CAP GTB SCH (06:00)
[2019-03-30] MEDS: DOCUSATE SODIUM 100 MG CAP PO SCH (09:00)
[2019-03-30] MEDS: MULTIVIT/CA CARB/B CMPLX/FA TAB GTB SCH (09:03)
[2019-03-30] MEDS: ZINC SULFATE 220 MG CAP GTB SCH (09:03)
[2019-03-30] MEDS: METOPROLOL 25 MG TAB GTB SCH ×2 (09:03→21:13)
[2019-03-30] MEDS: LEVETIRACETAM (100 MG/ML) 5ML CUP GTB SCH ×2 (09:03→21:13)
[2019-03-30] MEDS: CHLORHEXIDINE GLUCONATE 15 ML UD CUP MM SCH ×2 (09:04→21:12)
[2019-03-30] MEDS: COLLAGENASE 5 GM (UD JAR) TOP SCH ×2 (09:16→21:12)
[2019-03-30] MEDS: TRIAMCINOLONE ACET 0.1% 15 GM CR TOP SCH ×2 (09:17→21:12)
--- NOTE | 2019-03-30 11:21 | CONS ---
Consult Date/Type/Reason Admit Date/Time March 17, 2019 at 14:33 Initial Consult Date 03/18/19 Requesting Provider: IMER VARGAS Date/Time of Note DATE: 03/30/19 TIME: 11:18 Subjective NO acute events - pt comfortable - no focal ectopy on tele. ROS: No fever, no chills, no nausea, no vomiting, no diarrhea/constipation - per nurse Objective Vitals Vital Signs Date Temp Pulse Resp B/P (MAP) Pulse Ox O2 O2 Flow FiO2 Time Delivery Rate 03/30/19 64 22 98 30 09:45 03/30/19 98.9 141/65 Mechanical 07:35 (90) Ventilator Intake and Output 03/29/19 03/29/19 03/30/19 1515:00 23:00 07:00 IntakeIntake Total 1000 ml 2220 ml OutputOutput Total 1100 ml 650 ml BalanceBalance -100 ml 1570 ml Exam General: WN/WD/NAD, AOx 0 HEENT: Unicetric/atraumatic/EOMI (does not follow commands) NECK: trach Lymph: no lymphadenopathy HEART: regular with no S3, II/ systolic murmur at apex LUNGS: Coarse sounds ABD: soft, NT, ND, +BS - PEG : Intact Neuro: non focal SKIN: chronic changes EXT: trace edema Results/Medications Result Diagram: 03/29/1951503/29/19 05 Home Meds Reported Medications Levalbuterol Hcl* (Xopenex*) 1.25 Mg/0.5 Ml Vial.neb, 1.25 MG INHALATION Q6H for WHEEZING AND SOB, EA 03/17/19 Levalbuterol Hcl* (Levalbuterol Hcl*) 1.25 Mg/0.5 Ml Vial.neb, 1.25 MG INHALATION Q3H, VIAL 03/17/19 Ascorbic Acid (Vitamin C) 500 Mg Tab, 500 MG GTB DAILY, TAB 03/17/19 Cran/Vitc/Mannose/Inulin/Brom (Uti-Stat Liquid) 3,875 Mg/30 Ml Liquid, 30 ML GTB BID 03/17/19 Acetaminophen* (Acetaminophen*) 500 MG Extra Strength Tablet, 1000 MG PO Q4H PRN for NEEDED, TAB UNTIL 04/16/19 03/17/19 Acetaminophen* (Tylenol*) 325 Mg Tablet, 650 MG GTB BID PRN for PAIN MGT, TAB 03/17/19 Acetaminophen* (Tylenol*) 325 Mg Tablet, 650 MG GTB Q4H PRN for MILD PAIN LEVEL 1-3, TAB AND FEVER 101F, END DATE 04/16/19 03/17/19 Acetaminophen* (Tylenol*) 325 Mg Tablet, 650 MG GTB NEEDED PRN for TRACH TUBE CHANGE, TAB 03/17/19 Epoetin Amor (Procrit) 4,000 Unit/1 Ml Vial, 4000 UNIT IJ Q WED, VIAL 03/17/19 Amino Acids/Protein Hydrolys (PRO-STAT LIQUID) 30 Ml Liquid.pkt, 30 ML GTB DAILY 03/17/19 Multivitamins* (Theragran*) 1 Tab Tab, 1 TAB GTB DAILY, TAB 03/17/19 Magnesium Hydroxide* (Milk Of Magnesia*) 400 Mg/5 Ml Oral.susp, 30 ML GTB NEEDED, ML END DATE 04/16/19 03/17/19 Metoprolol Tartrate* (Lopressor*) 25 Mg Tab, 25 MG GTB BID, #60 TAB HOLD IF SBP<110 OR HR<60 03/17/19 Levetiracetam* (Levetiracetam*) 500 Mg/5 Ml Solution, 2.5 ML PO Q12H, ML 03/17/19 Mineral Oil* (Fleet* Mineral Oil Enema) Unknown Strength Oil, 1 APPLIC [place] NEEDED PRN for CONSTIPATION, ENEMA 03/17/19 Bisacodyl (Dulcolax) 10 Mg Supp.rect, 10 MG RC NEEDED, SUPP.RECT UNTIL 04/16/19 03/17/19 Digoxin* (Digox*) 125 Mcg Tablet, 0.125 MG GTB DAILY PRN for HOLD IF HR<60, TAB 03/17/19 Docusate Sodium* (Colace*) 100 Mg Capsule, 100 MG GTB DAILY, #30 CAP 03/17/19 Chlorhexidine Gluconate (Peridex) 473 Ml Mouthwash, 15 ML MM Q12H, BOTTLE 03/17/19 Medications Current Medications Acetaminophen (Tylenol Liquid) 650 mg Q4H PRN GTB MILD PAIN 1-3; Start 03/17/19 at 21:30 Bisacodyl (Dulcolax Supp) 10 mg DAILY PRN [place] CONSTIPATION; Start 03/17/19 at 21:00 Chlorhexidine Gluconate (Peridex) 15 ml Q12H MM Last administered on 03/30/19 09:04; Admin Dose 15 ML; Start 03/17/19 at 21:00 Digoxin (Digoxin) 0.125 mg DAILY@13 PO Last administered on 03/27/19 13:16; Admin Dose 0.125 MG; Start 03/18/19 at 13:00 Docusate Sodium (Colace) 100 mg DAILY PO Last administered on 03/29/19 08:54; Admin Dose 100 MG; Start 03/18/19 at 09:00 Levetiracetam (Keppra Liquid) 250 mg Q12H GTB Last administered on 03/30/19 09:03; Admin Dose 250 MG; Start 03/17/19 at 21:00 Magnesium Hydroxide (Milk Of Mag) 30 ml DAILY PRN GTB CONSTIPATION; Start 03/17/19 at 21:00 Metoprolol Tartrate (Lopressor) 25 mg BID GTB Last administered on 03/30/19 09:03; Admin Dose 25 MG; Start 03/17/19 at 21:00 Lansoprazole (Prevacid) 30 mg DAILY@06 GTB Last administered on 03/30/19 06:00; Admin Dose 30 MG; Start 03/18/19 at 06:00 Epoetin Amor-epbx (RETACRIT(non-esrd)) 40,000 unit We@1700 SC Last administered on 03/26/19 17:30; Admin Dose 40,000 UNIT; Start 03/19/19 at 17:00 Multivit/Ca Carb/ B Cmplx/FA/Prenat (Renee-Antonio) 1 tab DAILY GTB Last administered on 03/30/19 09:03; Admin Dose 1 TAB; Start 03/21/19 at 09:00 Zinc Sulfate (Zinc Sulfate) 220 mg DAILY GTB Last administered on 03/30/19 09:03; Admin Dose 220 MG; Start 03/21/19 at 09:00 Collagenase (Santyl) 1 applic BID TOP Last administered on 03/30/19 09:16; Admin Dose 1 APPLIC; Start 03/20/19 at 16:28 Vancomycin HCl (Vanco Iv Per Pharmacy) VANCOMYCIN PER PHARMACY PER PROTOCOL XX ; Start 03/23/19 at 06:30 Piperacillin Sod/ Tazobactam Sod 100 ml @ 200 mls/hr Q6 IVPB Last administered on 03/30/19at 06:00; Admin Dose 200 MLS/HR; Start 03/23/19 at 06:30 Acetylcysteine (Mucomyst) 2 ml Q6H RESP THERAPY NEB Last administered on 03/30/19at 08:32; Admin Dose 2 ML; Start 03/24/19 at 11:00 Levalbuterol (Xopenex Hfa) 2 puff Q6H RESP THERAPY INH Last administered on 03/30/19at 08:30; Admin Dose 2 PUFF; Start 03/24/19 at 14:00 Triamcinolone Acetonide (Kenalog 0.1% Cr) 1 applic BID TOP Last administered on 03/30/19at 09:17; Admin Dose 1 APPLIC; Start 03/27/19 at 09:00 Vancomycin HCl 1.25 gm/Sodium Chloride 250 ml @ 83.333 mls/ hr Q48H IVPB ; Start 03/31/19 at 06:00 Miscellaneous Information (*Order Clarification Bulletin) MEDICATION REQUIRES CLARIFICATI... Q8H XX ; Start 03/30/19 at 08:30 Assessment/Plan Hospital Course (Demo Recall) 1. Premature ventricular contractions. Premature ventricular contractions are not confirmed based on my interpretation on telemetry strip. We will monitor clinically now. No new arrhythmia now. NO focal ectopy on tele. Better now - will follow clinically. NO new focal ectopy on tele now. Sinus, rate controlled. 2. Supraventricular tachycardia, possibly atrial tachycardia versus a short run of atrial tachycardia. No particular treatment is required. Continue to treat the patient with a beta-jude now. She is also on digoxin which is reasonable. Rate controlled now. In sinus now - rachele at times - no pauses. On meds - better.REsolved. 3. Hypertension. Blood pressure is well optimized now, which was actually in the low side. I think it is reasonable to hydrate as needed. BP stable. Stable overall. BP well maintained. In good range now. 4. Respiratory failure. Continue respiratory therapy. The patient is on the ventilator. 5. Chronic malnourished state. Continue feedings per PEG. At goal. Stable. 6. Anemia. Hemoglobin is fairly stable now. No evidence of bleeding. We will monitor clinically. H/H stable now. NO bleeding. Hg 8.7 now. Unchanged. KINGSTON HEARD MD March 30, 2019 11:21
--- NOTE | 2019-03-30 11:33 | PN ---
Date/Time of Note Date/Time of Note DATE: 03/30/19 TIME: 11:33 Assessment/Plan VTE Prophylaxis Risk score (from Ns)>0 risk: 7 SCD applied (from Ns): Yes Pharmacological prophylaxis: LMWH Lines/Catheters IV [facility] Type [facility] Peripheral IV Urinary Cath still in place: Yes Reason Cath still needed: skin wounds contaminated by urine Assessment/Plan Hospital Course -Hypokalemia, resolved -Hypomagnesium - replace mag. am Mag level -Diverticular abscess, Dr Mario is following in surgical consultation. Continue NPO, IVF. -Severe diverticulosis with spasm per colonoscopy. Dr. Galdamez is following in gastroenterology consultation. -Anemia. Stool for OB neg. Continue Epogen and Iron supplementation. Dr. Kiser is following in hematology consultation -Ventilator dependent respiratory failure with tracheostomy. Dr. Davenport is follo wing in pulmonology consultation. -Acute on chronic kidney disease. Monitor BUN and creatinine. Dr. Grant is following in nephrology consultation -Atrial fibrillation, continue metoprolol -Diastolic congestive heart failure. Dr. Hernandez is following in cardiology consultation. -Pulmonary fibrosis, continue Pulmicort. -Dysphagia with G-tube. -Chronic encephalopathy -COPD -History of CVA, continue aspirin. -Seizure disorder/status epilepticus. Continue Keppra and Ativan as needed. -MRSA nares colonization Result Diagram: 03/29/1951503/29/19515 Subjective 24 Hr Interval Summary Free Text/Dictation Patient resting, appears comfortable Exam/Review of Systems Exam Vitals Vital Signs Date Temp Pulse Resp B/P (MAP) Pulse Ox O2 O2 Flow FiO2 Time Delivery Rate 03/30/19 98.3 65 20 136/68 100 11:21 (90) 03/30/19 30 11:17 03/30/19 Mechanical 07:35 Ventilator Intake and Output 03/29/19 03/29/19 03/30/19 1515:00 23:00 07:00 IntakeIntake Total 1000 ml 2220 ml OutputOutput Total 1100 ml 650 ml BalanceBalance -100 ml 1570 ml Constitutional: well developed Head: normocephalic, atraumatic Neck: supple Respiratory: diminished breath sounds Cardiovascular: regular rate and rhythm Gastrointestinal: soft, non-tender Extremities: normal pulses Medications Medication Current Medications Acetaminophen (Tylenol Liquid) 650 mg Q4H PRN GTB MILD PAIN 1-3; Start 03/17/19 at 21:30 Bisacodyl (Dulcolax Supp) 10 mg DAILY PRN [place] CONSTIPATION; Start 03/17/19 at 21:00 Chlorhexidine Gluconate (Peridex) 15 ml Q12H MM Last administered on 03/30/19 09:04; Admin Dose 15 ML; Start 03/17/19 at 21:00 Digoxin (Digoxin) 0.125 mg DAILY@13 PO Last administered on 03/27/19 13:16; Admin Dose 0.125 MG; Start 03/18/19 at 13:00 Docusate Sodium (Colace) 100 mg DAILY PO Last administered on 03/29/19 08:54; Admin Dose 100 MG; Start 03/18/19 at 09:00 Levetiracetam (Keppra Liquid) 250 mg Q12H GTB Last administered on 03/30/19 09:03; Admin Dose 250 MG; Start 03/17/19 at 21:00 Magnesium Hydroxide (Milk Of Mag) 30 ml DAILY PRN GTB CONSTIPATION; Start 03/17/19 at 21:00 Metoprolol Tartrate (Lopressor) 25 mg BID GTB Last administered on 03/30/19 09:03; Admin Dose 25 MG; Start 03/17/19 at 21:00 Lansoprazole (Prevacid) 30 mg DAILY@06 GTB Last administered on 03/30/19 06:00; Admin Dose 30 MG; Start 03/18/19 at 06:00 Epoetin Amor-epbx (RETACRIT(non-esrd)) 40,000 unit We@1700 SC Last administered on 03/26/19 17:30; Admin Dose 40,000 UNIT; Start 03/19/19 at 17:00 Multivit/Ca Carb/ B Cmplx/FA/Prenat (Renee-Antonio) 1 tab DAILY GTB Last administered on 03/30/19 09:03; Admin Dose 1 TAB; Start 03/21/19 at 09:00 Zinc Sulfate (Zinc Sulfate) 220 mg DAILY GTB Last administered on 03/30/19 09:03; Admin Dose 220 MG; Start 03/21/19 at 09:00 Collagenase (Santyl) 1 applic BID TOP Last administered on 03/30/19 09:16; Admin Dose 1 APPLIC; Start 03/20/19 at 16:28 Vancomycin HCl (Vanco Iv Per Pharmacy) VANCOMYCIN PER PHARMACY PER PROTOCOL XX ; Start 03/23/19 at 06:30 Piperacillin Sod/ Tazobactam Sod 100 ml @ 200 mls/hr Q6 IVPB Last administered on 03/30/19 06:00; Admin Dose 200 MLS/HR; Start 03/23/19 at 06:30 Acetylcysteine (Mucomyst) 2 ml Q6H RESP THERAPY NEB Last administered on 03/30/19 08:32; Admin Dose 2 ML; Start 03/24/19 at 11:00 Levalbuterol (Xopenex Hfa) 2 puff Q6H RESP THERAPY INH Last administered on 03/30/19 08:30; Admin Dose 2 PUFF; Start 03/24/19 at 14:00 Triamcinolone Acetonide (Kenalog 0.1% Cr) 1 applic BID TOP Last administered on 03/30/19 09:17; Admin Dose 1 APPLIC; Start 03/27/19 at 09:00 Vancomycin HCl 1.25 gm/Sodium Chloride 250 ml @ 83.333 mls/ hr Q48H IVPB ; Start 03/31/19 at 06:00 Miscellaneous Information (*Order Clarification Bulletin) MEDICATION REQUIRES CLARIFICATI... Q8H XX ; Start 03/30/19 at 08:30 ROSALVA SANCHES March 30, 2019 11:33
--- NOTE | 2019-03-30 11:55 | CONS ---
Consultation Date/Type/Reason Admit Date/Time March 17, 2019 at 14:33 Initial Consult Date 03/18/19 Type of Consult SUBJECTIVE: Pt is with chronic encephalopathy, Trach to vent. No acute events over night. NO fevers. VS: stable T: 98.3 LABS: Reviewed. Indwelling: Trach, PEG, Damon Antimicrobials: Vancomycin, Zosyn Physical examination: GEN: Chronically ill-appearing elderly woman, in no distress. HENT: Head atraumatic normocephalic; neck is supple; tracheostomy present PULM: chest rise symmetrical, breath sounds diminished bases. Heart: S1-S2. Abdomen: soft, bowel sounds present. Assessment: 1. Sigmoid diverticulosis with abscess 2. Left lower lobe atelectasis ? PNA 3. Chronic respiratory failure and dysphagia 4. Seizure disorder 5. Acute on chronic encephalopathy 6. Chronic kidney disease 7. Urinary tract infection as per urinalysis Plan: Clinically unchanged. No aggressive measures per family. Continue current antibiotics. Requesting Provider: IMER VARGAS Date/Time of Note DATE: 03/30/19 TIME: 11:55 Exam/Review of Systems Exam Vitals Vital Signs Date Temp Pulse Resp B/P (MAP) Pulse Ox O2 O2 Flow FiO2 Time Delivery Rate 03/30/19 98.3 65 20 136/68 100 11:21 (90) 03/30/19 30 11:17 03/30/19 Mechanical 07:35 Ventilator Intake and Output 03/29/19 03/29/19 03/30/19 1515:00 23:00 07:00 IntakeIntake Total 1000 ml 2220 ml OutputOutput Total 1100 ml 650 ml BalanceBalance -100 ml 1570 ml Results Result Diagram: 03/29/19 0516 03/29/19 0516 Medications Medication Current Medications Acetaminophen (Tylenol Liquid) 650 mg Q4H PRN GTB MILD PAIN 1-3; Start 03/17/19 at 21:30 Bisacodyl (Dulcolax Supp) 10 mg DAILY PRN [place] CONSTIPATION; Start 03/17/19 at 21:00 Chlorhexidine Gluconate (Peridex) 15 ml Q12H MM Last administered on 03/30/19at 09:04; Admin Dose 15 ML; Start 03/17/19 at 21:00 Digoxin (Digoxin) 0.125 mg DAILY@13 PO Last administered on 03/27/19 13:16; Admin Dose 0.125 MG; Start 03/18/19 at 13:00 Docusate Sodium (Colace) 100 mg DAILY PO Last administered on 03/29/19 08:54; Admin Dose 100 MG; Start 03/18/19 at 09:00 Levetiracetam (Keppra Liquid) 250 mg Q12H GTB Last administered on 03/30/19 09:03; Admin Dose 250 MG; Start 03/17/19 at 21:00 Magnesium Hydroxide (Milk Of Mag) 30 ml DAILY PRN GTB CONSTIPATION; Start 03/17/19 at 21:00 Metoprolol Tartrate (Lopressor) 25 mg BID GTB Last administered on 03/30/19 09:03; Admin Dose 25 MG; Start 03/17/19 at 21:00 Lansoprazole (Prevacid) 30 mg DAILY@06 GTB Last administered on 03/30/19 06:00; Admin Dose 30 MG; Start 03/18/19 at 06:00 Epoetin Amor-epbx (RETACRIT(non-esrd)) 40,000 unit We@1700 SC Last administered on 03/26/19 17:30; Admin Dose 40,000 UNIT; Start 03/19/19 at 17:00 Multivit/Ca Carb/ B Cmplx/FA/Prenat (Renee-Antonio) 1 tab DAILY GTB Last administered on 03/30/19 09:03; Admin Dose 1 TAB; Start 03/21/19 at 09:00 Zinc Sulfate (Zinc Sulfate) 220 mg DAILY GTB Last administered on 03/30/19 09:03; Admin Dose 220 MG; Start 03/21/19 at 09:00 Collagenase (Santyl) 1 applic BID TOP Last administered on 03/30/19 09:16; Admin Dose 1 APPLIC; Start 03/20/19 at 16:28 Vancomycin HCl (Vanco Iv Per Pharmacy) VANCOMYCIN PER PHARMACY PER PROTOCOL XX ; Start 03/23/19 at 06:30 Piperacillin Sod/ Tazobactam Sod 100 ml @ 200 mls/hr Q6 IVPB Last administered on 03/30/19 11:53; Admin Dose 200 MLS/HR; Start 03/23/19 at 06:30 Acetylcysteine (Mucomyst) 2 ml Q6H RESP THERAPY NEB Last administered on 03/30/19 08:32; Admin Dose 2 ML; Start 03/24/19 at 11:00 Levalbuterol (Xopenex Hfa) 2 puff Q6H RESP THERAPY INH Last administered on 03/30/19at 08:30; Admin Dose 2 PUFF; Start 03/24/19 at 14:00 Triamcinolone Acetonide (Kenalog 0.1% Cr) 1 applic BID TOP Last administered on 03/30/19at 09:17; Admin Dose 1 APPLIC; Start 03/27/19 at 09:00 Vancomycin HCl 1.25 gm/Sodium Chloride 250 ml @ 83.333 mls/ hr Q48H IVPB ; Start 03/31/19 at 06:00 Miscellaneous Information (*Order Clarification Bulletin) MEDICATION REQUIRES CLARIFICATI... Q8H XX ; Start 03/30/19 at 08:30 MADONNA ODELL March 30, 2019 11:55
--- NOTE | 2019-03-30 12:15 | CONS ---
Assessment/Plan Assessment/Plan Assessment/Plan (Daily) 73 yo with #Anemia -Hg ok at 8.7 today -pt is noted to have a macrocytic anemia which is mostly likely 2/2 underlying myelodysplastic syndrome -continue epogen 40,000 units weekly -iron panel reveals mild iron deficiency. s/p ferrilict -vitamin b12 and folate levels are ok -past workup for anemia reveals a negative SPEP and no signs of hemolysis. will however recheck LDH, haptoglobin and retic -f/u colonoscopy results # fluid collection -measuring 3.1 x 3.2 x 8.5 cm extending along the left iliopsoas/iliacus muscles. This could represent peridiverticular abscess/contained perforation. -IR to drain -pt is currently on vancomycin and zosyn Patient seen in collaboration with Dr Kiser/ dw staff Consultation Date/Type/Reason Admit Date/Time March 17, 2019 at 14:33 Initial Consult Date 03/18/19 Type of Consult Hematology/Oncology Reason for Consultation Anemia Requesting Provider: IMER VARGAS Date/Time of Note DATE: 03/30/19 TIME: 12:15 24 HR Interval Summary Free Text/Dictation resting; seems comfortable no new issues reported last night dw staff Subjective hx not possible: pt non-verbal Constitutional: requiring O2 Exam/Review of Systems Exam Vitals Vital Signs Date Temp Pulse Resp B/P (MAP) Pulse Ox O2 O2 Flow FiO2 Time Delivery Rate 03/30/19 98.3 65 20 136/68 100 11:21 (90) 03/30/19 30 11:17 03/30/19 Mechanical 07:35 Ventilator Intake and Output 03/29/19 03/29/19 03/30/19 1414:59 22:59 06:59 IntakeIntake Total 1000 ml 2220 ml OutputOutput Total 1100 ml 650 ml BalanceBalance -100 ml 1570 ml Constitutional: non-verbal, frail Psych: nl mood/affect Eyes: nl lids, nl sclera ENMT: nl external ears & nose Neck: non-tender, other (tack intact) Respiratory: clear to auscultation Cardiovascular: nl pulses, other (s1s2) Gastrointestinal: soft, other (gt intact) Musculoskeletal: muscle weakness, range of motion Extremities: normal pulses Neurological: lethargic Skin: other (decub) Results Result Diagram: 03/29/19 0516 03/29/19 0516 Medications Medication Current Medications Acetaminophen (Tylenol Liquid) 650 mg Q4H PRN GTB MILD PAIN 1-3; Start 03/17/19 at 21:30 Bisacodyl (Dulcolax Supp) 10 mg DAILY PRN [place] CONSTIPATION; Start 03/17/19 at 21:00 Chlorhexidine Gluconate (Peridex) 15 ml Q12H MM Last administered on 03/30/19 09:04; Admin Dose 15 ML; Start 03/17/19 at 21:00 Digoxin (Digoxin) 0.125 mg DAILY@13 PO Last administered on 03/27/19 13:16; Admin Dose 0.125 MG; Start 03/18/19 at 13:00 Docusate Sodium (Colace) 100 mg DAILY PO Last administered on 03/29/19 08:54; Admin Dose 100 MG; Start 03/18/19 at 09:00 Levetiracetam (Keppra Liquid) 250 mg Q12H GTB Last administered on 03/30/19 09:03; Admin Dose 250 MG; Start 03/17/19 at 21:00 Magnesium Hydroxide (Milk Of Mag) 30 ml DAILY PRN GTB CONSTIPATION; Start 03/17/19 at 21:00 Metoprolol Tartrate (Lopressor) 25 mg BID GTB Last administered on 03/30/19 09:03; Admin Dose 25 MG; Start 03/17/19 at 21:00 Lansoprazole (Prevacid) 30 mg DAILY@06 GTB Last administered on 03/30/19at 06:00; Admin Dose 30 MG; Start 03/18/19 at 06:00 Epoetin Amor-epbx (RETACRIT(non-esrd)) 40,000 unit We@1700 SC Last administered on 03/26/19 17:30; Admin Dose 40,000 UNIT; Start 03/19/19 at 17:00 Multivit/Ca Carb/ B Cmplx/FA/Prenat (Renee-Antonio) 1 tab DAILY GTB Last administered on 03/30/19 09:03; Admin Dose 1 TAB; Start 03/21/19 at 09:00 Zinc Sulfate (Zinc Sulfate) 220 mg DAILY GTB Last administered on 03/30/19 09:03; Admin Dose 220 MG; Start 03/21/19 at 09:00 Collagenase (Santyl) 1 applic BID TOP Last administered on 03/30/19 09:16; Admin Dose 1 APPLIC; Start 03/20/19 at 16:28 Vancomycin HCl (Vanco Iv Per Pharmacy) VANCOMYCIN PER PHARMACY PER PROTOCOL XX ; Start 03/23/19 at 06:30 Piperacillin Sod/ Tazobactam Sod 100 ml @ 200 mls/hr Q6 IVPB Last administered on 03/30/19at 11:53; Admin Dose 200 MLS/HR; Start 03/23/19 at 06:30 Acetylcysteine (Mucomyst) 2 ml Q6H RESP THERAPY NEB Last administered on 03/30/19 08:32; Admin Dose 2 ML; Start 03/24/19 at 11:00 Levalbuterol (Xopenex Hfa) 2 puff Q6H RESP THERAPY INH Last administered on 03/30/19 08:30; Admin Dose 2 PUFF; Start 03/24/19 at 14:00 Triamcinolone Acetonide (Kenalog 0.1% Cr) 1 applic BID TOP Last administered on 03/30/19 09:17; Admin Dose 1 APPLIC; Start 03/27/19 at 09:00 Vancomycin HCl 1.25 gm/Sodium Chloride 250 ml @ 83.333 mls/ hr Q48H IVPB ; Start 03/31/19 at 06:00 Miscellaneous Information (*Order Clarification Bulletin) MEDICATION REQUIRES CLARIFICATI... Q8H XX ; Start 03/30/19 at 08:30 FRANCESCO SIU March 30, 2019 12:15
--- NOTE | 2019-03-30 12:40 | PN ---
DATE: 03/30/2019 SUBJECTIVE: The patient is stable. No events overnight. Patient is tolerating tube feeding. No ot her events noted. OBJECTIVE: VITAL SIGNS: Blood pressure is 141/65, respirations 20, pulse 64, temperature 98.9. HEENT: Head is normocephalic. NECK: Supple. HEART: Regular rate. LUNGS: Show diminished breath sounds at the base. ABDOMEN: Soft, nontender to palpation without rebound or guarding. EXTREMITIES: Negative for clubbing, cyanosis, no edema. DERMATOLOGIC: No rashes. MUSCULOSKELETAL: No joint effusion. NEUROLOGIC: No change in exam. MEDICATIONS: The patient's medications have been reviewed. LABORATORY DATA: Has been reviewed. IMAGING STUDIES: Have been reviewed. ASSESSMENT AND PLAN: 1. Chronic kidney disease, stage III. Renal function is currently stable, below baseline. Continue current treatment plan, supportive care, renally dose all meds. 2. Hypokalemia and hypomagnesemia. Continue to monitor and replete as needed. 3. Anemia. Monitor hemoglobin and hematocrit levels. 4. Mineral bone disorder, monitor calcium and phosphorus levels. 5. Hypertension. Blood pressure controlled. 6. Diverticulosis with intra-abdominal abscess. Continue to monitor. 7. Ventilator-dependent respiratory failure. Vent settings have been reviewed. Continue to monitor . 8. Dysphagia. Continue tube feeding. Will discontinue IV fluids. 9. Chronic encephalopathy. No change. 10. Seizure disorder. Continue current medical management. Dictated By: RAJINDER ATWOOD DO NR/NTS Conf#: [id number] DID#: [id number] CC: JAYLEN LUGO MD; MENDEL FIELDS MD;*EndCC*
[2019-03-30] MEDS: DIGOXIN 0.125 MG TAB PO SCH (12:41)
--- NOTE | 2019-03-30 12:57 | PN ---
Date/Time of Note Date/Time of Note DATE: 03/30/19 TIME: 12:53 Assessment/Plan Lines/Catheters IV Catheter Type (from [facility], [place]): Peripheral IV Damon in Place (from [facility], [place]): Yes Assessment/Plan Chief Complaint/Hosp Course 1. Sigmoid diverticulosis with a focal area of abnormal wall thickening of the proximal sigmoid colon with an adjacent gas containing fluid collection measuring 3.1 x 3.2 x 8.5 cm extending along the left iliopsoas/iliacus muscles. This could represent peridiverticular abscess/contained perforation. Not drainable per IR. Family does not want aggressive measures (OR) -Continue Abx per ID -supportive -nutrition ok 2. anemia: No overt bleed noted -Monitor and transfuse as needed -Per hematology 3. VDRF: -Pulmonary toilet -Vent management per pulmonary 4. CKD -Limit nephrotoxic meds -Renally dose meds -Per renal 5. Atrial fibrillation history -Rate control 6. Heart failure: -Cardiac optimization 7. Dysphagia with PEG placement -Continue tube feeds with aspiration precautions Thank you. Patient seen and examined in collaboration with Dr. Harry Mario. Subjective 24 Hr Interval Summary appears comfortable. Tolerating diet. No fevers, congested cough, labored breathing, vomiting, diarrhea, sz, rash. Exam/Review of Systems Vital Signs Vitals Vital Signs Date Temp Pulse Resp B/P (MAP) Pulse Ox O2 O2 Flow FiO2 Time Delivery Rate 03/30/19 98.3 65 20 136/68 100 11:21 (90) 03/30/19 30 11:17 03/30/19 Mechanical 07:35 Ventilator Intake and Output 03/29/19 03/29/19 03/30/19 1515:00 23:00 07:00 IntakeIntake Total 1000 ml 2220 ml OutputOutput Total 1100 ml 650 ml BalanceBalance -100 ml 1570 ml Exam Free Text/Dictation Constitutional: alert; No oriented, No distress Psych: nl mood/affect Head: normocephalic, atraumatic Eyes: nl conjunctiva, EOMI, nl lids, nl sclera ENMT: nl external ears & nose, nl lips & teeth, mucosa pink and moist Neck: supple, non-tender, other (Tracheostomy) Respiratory: normal air movement, other (Vent); No congested cough Cardiovascular: regular rate and rhythm Gastrointestinal: soft, non-tender, other (PEG); No distended Genitourinary - Female: nl external genitalia Musculoskeletal: nl extremities to inspection, nl gait and stance Extremities: normal pulses; No edema Neurological: No nl mental status, No nl speech (Nonverbal, noncommunicative), No nl strength, No focal weakness Skin: No rash or lesions Results Result Diagram: 03/29/19 0516 03/29/19 0516 EULA HICKMAN NP March 30, 2019 12:57
--- NOTE | 2019-03-30 13:41 | CONS ---
Assessment/Plan Assessment/Plan Hospital Course (Demo Recall) 73 yo female Interval hx: no acute changes. tolerating tube feeds 1. Anemia of chronic disease --per DR Kiser note "pt is noted to have a macrocytic anemia which is mostly likely 2/2 underlying myelodysplastic syndrome" 2. Chronic kidney disease. 3. Hypertension. 4. Paroxysmal atrial fibrillation. 5. Cerebrovascular accident. 6. Possible meningioma. 7. Vent dependent respiratory failure. 8. Dysphagia, status post G-tube. 9. S/P colonoscopy 03/20 -found severe diverticulosis of left side of colon with spasm and poor prep 10. Walled off diverticular perforation abscess PLAN: Continue present care. Repeat CT scan in two weeks Pt examined and plan of care discussed with Dr. Galdamez Consultation Date/Type/Reason Admit Date/Time March 17, 2019 at 14:33 Initial Consult Date 03/18/19 Requesting Provider: IMER VARGAS Date/Time of Note DATE: 03/30/19 TIME: 13:39 Exam/Review of Systems Exam Vitals Vital Signs Date Temp Pulse Resp B/P (MAP) Pulse Ox O2 O2 Flow FiO2 Time Delivery Rate 03/30/19 62 12:01 03/30/19 98.3 20 136/68 100 11:21 (90) 03/30/19 30 11:17 03/30/19 Mechanical 07:35 Ventilator Intake and Output 03/29/19 03/29/19 03/30/19 1515:00 23:00 07:00 IntakeIntake Total 1000 ml 2220 ml OutputOutput Total 1100 ml 650 ml BalanceBalance -100 ml 1570 ml Respiratory: diminished breath sounds Cardiovascular: regular rate and rhythm Gastrointestinal: soft, bowel sounds Results Result Diagram: 03/29/19 0516 03/29/19 0516 Medications Medication Current Medications Acetaminophen (Tylenol Liquid) 650 mg Q4H PRN GTB MILD PAIN 1-3; Start 03/17/19 at 21:30 Bisacodyl (Dulcolax Supp) 10 mg DAILY PRN [place] CONSTIPATION; Start 03/17/19 at 21:00 Chlorhexidine Gluconate (Peridex) 15 ml Q12H MM Last administered on 03/30/19at 09:04; Admin Dose 15 ML; Start 03/17/19 at 21:00 Digoxin (Digoxin) 0.125 mg DAILY@13 PO Last administered on 03/27/19 13:16; Admin Dose 0.125 MG; Start 03/18/19 at 13:00 Docusate Sodium (Colace) 100 mg DAILY PO Last administered on 03/29/19 08:54; Admin Dose 100 MG; Start 03/18/19 at 09:00 Levetiracetam (Keppra Liquid) 250 mg Q12H GTB Last administered on 03/30/19 09:03; Admin Dose 250 MG; Start 03/17/19 at 21:00 Magnesium Hydroxide (Milk Of Mag) 30 ml DAILY PRN GTB CONSTIPATION; Start 03/17/19 at 21:00 Metoprolol Tartrate (Lopressor) 25 mg BID GTB Last administered on 03/30/19 09:03; Admin Dose 25 MG; Start 03/17/19 at 21:00 Lansoprazole (Prevacid) 30 mg DAILY@06 GTB Last administered on 03/30/19 06:00; Admin Dose 30 MG; Start 03/18/19 at 06:00 Epoetin Amor-epbx (RETACRIT(non-esrd)) 40,000 unit We@1700 SC Last administered on 03/26/19 17:30; Admin Dose 40,000 UNIT; Start 03/19/19 at 17:00 Multivit/Ca Carb/ B Cmplx/FA/Prenat (Renee-Antonio) 1 tab DAILY GTB Last administe red on 03/30/19 09:03; Admin Dose 1 TAB; Start 03/21/19 at 09:00 Zinc Sulfate (Zinc Sulfate) 220 mg DAILY GTB Last administered on 03/30/19 09:03; Admin Dose 220 MG; Start 03/21/19 at 09:00 Collagenase (Santyl) 1 applic BID TOP Last administered on 03/30/19 09:16; Admin Dose 1 APPLIC; Start 03/20/19 at 16:28 Vancomycin HCl (Vanco Iv Per Pharmacy) VANCOMYCIN PER PHARMACY PER PROTOCOL XX ; Start 03/23/19 at 06:30 Piperacillin Sod/ Tazobactam Sod 100 ml @ 200 mls/hr Q6 IVPB Last administered on 03/30/19 11:53; Admin Dose 200 MLS/HR; Start 03/23/19 at 06:30 Acetylcysteine (Mucomyst) 2 ml Q6H RESP THERAPY NEB Last administered on 03/30/19 08:32; Admin Dose 2 ML; Start 03/24/19 at 11:00 Levalbuterol (Xopenex Hfa) 2 puff Q6H RESP THERAPY INH Last administered on 03/30/19at 13:37; Admin Dose 2 PUFF; Start 03/24/19 at 14:00 Triamcinolone Acetonide (Kenalog 0.1% Cr) 1 applic BID TOP Last administered on 03/30/19at 09:17; Admin Dose 1 APPLIC; Start 03/27/19 at 09:00 Vancomycin HCl 1.25 gm/Sodium Chloride 250 ml @ 83.333 mls/ hr Q48H IVPB ; Start 03/31/19 at 06:00 Miscellaneous Information (*Order Clarification Bulletin) MEDICATION REQUIRES CLARIFICATI... Q8H XX ; Start 03/30/19 at 08:30 TEODORA DAVILA March 30, 2019 13:41
[2019-03-31] VITALS (23 sets, daily range): BP systolic 146–176; BP diastolic 66–83; PULSE 69–152; RESP 16–27
[2019-03-31] MEDS: PIPER-TAZO 3.375 GM IV (PMX) 100 ML IVPB SCH ×4 (00:06→18:06)
[2019-03-31] MEDS: LEVALBUTEROL (HFA) 15 GM INHALER INH SCH ×4 (01:22→20:47)
[2019-03-31] MEDS: ACETYLCYSTEINE 20% 4 ML VIAL NEB SCH ×4 (01:22→20:50)
[2019-03-31] MEDS: LANSOPRAZOLE 30 MG CAP GTB SCH (06:16)
[2019-03-31] MEDS: VANCOMYCIN HCL 1.25 GM in SOD CHLORIDE 0.9% 250 ML IVPB SCH (06:59)
[2019-03-31] MEDS: DOCUSATE SODIUM 100 MG CAP PO SCH (09:00)
--- NOTE | 2019-03-31 09:06 | CONS ---
Assessment/Plan Assessment/Plan Hospital Course (Demo Recall) 73 yo female Interval hx: no acute changes. tolerating tube feeds. 2 bm, no signs of GI bl eeding, no diarrhea. WBC are 11 today 1. Anemia of chronic disease --per DR Kiser note "pt is noted to have a macrocytic anemia which is mostly likely 2/2 underlying myelodysplastic syndrome" 2. Chronic kidney disease. 3. Hypertension. 4. Paroxysmal atrial fibrillation. 5. Cerebrovascular accident. 6. Possible meningioma. 7. Vent dependent respiratory failure. 8. Dysphagia, status post G-tube. 9. S/P colonoscopy 03/20 -found severe diverticulosis of left side of colon with spasm and poor prep 10. Walled off diverticular perforation abscess PLAN: Continue present care. Repeat CT scan in two weeks Pt examined and plan of care discussed with Dr. Galdamez Consultation Date/Type/Reason Admit Date/Time March 17, 2019 at 14:33 Initial Consult Date 03/18/19 Requesting Provider: IMER VARGAS Date/Time of Note DATE: 03/31/19 TIME: 09:04 Exam/Review of Systems Exam Vitals Vital Signs Date Temp Pulse Resp B/P (MAP) Pulse Ox O2 O2 Flow FiO2 Time Delivery Rate 03/31/19 99.1 100 17 176/72 99 07:30 (106) 03/31/19 30 05:40 03/30/19 Mechanical 07:35 Ventilator Intake and Output 03/30/19 03/30/19 03/31/19 1515:00 23:00 07:00 IntakeIntake Total 1120 ml 1520 ml OutputOutput Total 1900 ml 350 ml BalanceBalance -780 ml 1170 ml Constitutional: alert Head: normocephalic Eyes: PERRL ENMT: mucosa pink and moist Neck: other (trach) Respiratory: other (Non labored, symmetrical chest rise) Gastrointestinal: soft, non-tender (no non verbal cues to pain during palpitation), bowel sounds Results Result Diagram: 03/31/19 0440 03/31/19 0440 Results 24hrs Laboratory Tests Test 03/31/19 00:30 03/31/19 04:40 Stool Occult Blood NEGATIVE White Blood Count 11.5 #H Red Blood Count 3.37 L Hemoglobin 10.3 L Hematocrit 35.5 #L Mean Corpuscular Volume 105.3 H Mean Corpuscular Hemoglobin 30.6 Mean Corpuscular Hemoglobin Concent 29.0 L Red Cell Distribution Width 18.5 H Platelet Count 287 Mean Platelet Volume 8.8 Immature Granulocytes % 0.900 H Neutrophils % 80.9 H Lymphocytes % 13.4 L Monocytes % 3.0 Eosinophils % 1.5 Basophils % 0.3 Nucleated Red Blood Cells % 0.0 Immature Granulocytes # 0.100 H Neutrophils # 9.3 H Lymphocytes # 1.6 Monocytes # 0.4 Eosinophils # 0.2 Basophils # 0.0 Nucleated Red Blood Cells # 0.0 Sodium Level 139 Potassium Level 5.1 Chloride Level 115 H Carbon Dioxide Level 19 L Anion Gap 5 Blood Urea Nitrogen 13 Creatinine 0.74 Est Glomerular Filtrat Rate mL/min Glucose Level 121 Calcium Level 8.6 Phosphorus Level 2.1 L Magnesium Level 1.9 Medications Medication Current Medications Acetaminophen (Tylenol Liquid) 650 mg Q4H PRN GTB MILD PAIN 1-3; Start 03/17/19 at 21:30 Bisacodyl (Dulcolax Supp) 10 mg DAILY PRN [place] CONSTIPATION; Start 03/17/19 at 21:00 Chlorhexidine Gluconate (Peridex) 15 ml Q12H MM Last administered on 03/30/19at 21:12; Admin Dose 15 ML; Start 03/17/19 at 21:00 Digoxin (Digoxin) 0.125 mg DAILY@13 PO Last administered on 03/27/19at 13:16; Admin Dose 0.125 MG; Start 03/18/19 at 13:00 Docusate Sodium (Colace) 100 mg DAILY PO Last administered on 03/29/19at 08:54; Admin Dose 100 MG; Start 03/18/19 at 09:00 Levetiracetam (Keppra Liquid) 250 mg Q12H GTB Last administered on 03/30/19at 21 :13; Admin Dose 250 MG; Start 03/17/19 at 21:00 Magnesium Hydroxide (Milk Of Mag) 30 ml DAILY PRN GTB CONSTIPATION; Start 03/17/19 at 21:00 Metoprolol Tartrate (Lopressor) 25 mg BID GTB Last administered on 03/30/19at 21:13; Admin Dose 25 MG; Start 03/17/19 at 21:00 Lansoprazole (Prevacid) 30 mg DAILY@06 GTB Last administered on 03/31/19 06:16; Admin Dose 30 MG; Start 03/18/19 at 06:00 Epoetin Amor-epbx (RETACRIT(non-esrd)) 40,000 unit We@1700 SC Last administered on 03/26/19 17:30; Admin Dose 40,000 UNIT; Start 03/19/19 at 17:00 Multivit/Ca Carb/ B Cmplx/FA/Prenat (Renee-Antonio) 1 tab DAILY GTB Last administered on 03/30/19 09:03; Admin Dose 1 TAB; Start 03/21/19 at 09:00 Zinc Sulfate (Zinc Sulfate) 220 mg DAILY GTB Last administered on 03/30/19 09:03; Admin Dose 220 MG; Start 03/21/19 at 09:00 Collagenase (Santyl) 1 applic BID TOP Last administered on 03/30/19 21:12; Admin Dose 1 APPLIC; Start 03/20/19 at 16:28 Vancomycin HCl (Vanco Iv Per Pharmacy) VANCOMYCIN PER PHARMACY PER PROTOCOL XX ; Start 03/23/19 at 06:30 Piperacillin Sod/ Tazobactam Sod 100 ml @ 200 mls/hr Q6 IVPB Last administered on 03/31/19 06:16; Admin Dose 200 MLS/HR; Start 03/23/19 at 06:30 Acetylcysteine (Mucomyst) 2 ml Q6H RESP THERAPY NEB Last administered on 03/31/19 01:22; Admin Dose 2 ML; Start 03/24/19 at 11:00 Levalbuterol (Xopenex Hfa) 2 puff Q6H RESP THERAPY INH Last administered on 03/31/19 01:22; Admin Dose 2 PUFF; Start 03/24/19 at 14:00 Triamcinolone Acetonide (Kenalog 0.1% Cr) 1 applic BID TOP Last administered on 03/30/19 21:12; Admin Dose 1 APPLIC; Start 03/27/19 at 09:00 Vancomycin HCl 1.25 gm/Sodium Chloride 250 ml @ 83.333 mls/ hr Q48H IVPB Last administered on 03/31/19 06:59; Admin Dose 83.333 MLS/HR; Start 03/31/19 at 06:00 Miscellaneous Information (*Order Clarification Bulletin) MEDICATION REQUIRES CLARIFICATI... Q8H XX Last administered on 03/31/19at 01:09; Admin Dose 1 EA; Start 03/30/19 at 08:30 Sodium Phosphate (Neutra-Phos) 250 mg BID GTB ; Start 03/31/19 at 09:00 TEODORA DAVILA March 31, 2019 09:06
[2019-03-31] MEDS: LEVETIRACETAM (100 MG/ML) 5ML CUP GTB SCH ×2 (09:15→21:50)
[2019-03-31] MEDS: NEUTRA-PHOS 250 MG PACKET GTB SCH ×2 (09:15→21:50)
[2019-03-31] MEDS: COLLAGENASE 5 GM (UD JAR) TOP SCH ×2 (09:15→21:52)
[2019-03-31] MEDS: CHLORHEXIDINE GLUCONATE 15 ML UD CUP MM SCH ×2 (09:15→21:51)
[2019-03-31] MEDS: METOPROLOL 25 MG TAB GTB SCH ×3 (09:16→23:00)
[2019-03-31] MEDS: MULTIVIT/CA CARB/B CMPLX/FA TAB GTB SCH (09:16)
[2019-03-31] MEDS: TRIAMCINOLONE ACET 0.1% 15 GM CR TOP SCH ×2 (09:19→21:52)
--- NOTE | 2019-03-31 09:54 | PN ---
DATE: 03/31/2019 SUBJECTIVE: The patient is stable. No events overnight. OBJECTIVE: VITAL SIGNS: Blood pressure is 176/72, pulse 100, respirations 17, temperature 99.1. HEENT: Head is normocephalic. NECK: Supple. HEART: Regular rate. LUNGS: Show diminished breath sounds at the base. ABDOMEN: Soft, nontender to palpation without rebound or guarding. EXTREMITIES: Negative for clubbing, cyanosis, no edema. DERMATOLOGIC: No rashes. MUSCULOSKELETAL: No joint effusion. NEUROLOGIC: No change in exam. MEDICATIONS: Reviewed. LABORATORY DATA: Reviewed. IMAGING STUDIES: Reviewed. ASSESSMENT AND PLAN: 1. Chronic kidney disease, stage III. Renal function is stable currently below baseline. Continue current treatment plan, supportive care, renally dose all medications. 2. Hypokalemia and hypomagnesemia, improved. Continue to monitor. 3. Mineral bone disorder. The patient is hypophosphatemic. We will replete with sodium phosphate. 4. Anemia. Continue to monitor hemoglobin and hematocrit levels. 5. Hypertension. Continue current blood pressure regimen. 6. Diverticulosis, questionable intraabdominal abscess. The patient is pending possible IR drainage . 7. Ventilator-dependent respiratory failure. Vent settings have been reviewed. Continue to monitor . 8. Dysphagia. Continue tube feeding. 9. Chronic encephalopathy. No change. 10. Seizure disorder. Continue current medical management. Dictated By: RAJINDER WATTS/NTS Conf#: [id number] DID#: [id number] CC: JYALEN LUGO MD; MENDEL FIELDS MD;*End*
--- NOTE | 2019-03-31 10:46 | PN ---
Date/Time of Note Date/Time of Note DATE: 03/31/19 TIME: 10:43 Assessment/Plan Lines/Catheters IV Catheter Type (from [facility]): Saline Lock Damon in Place (from [facility]): Yes Assessment/Plan Chief Complaint/Hosp Course 1. Sigmoid diverticulosis with a focal area of abnormal wall thickening of the proximal sigmoid colon with an adjacent gas containing fluid collection measuring 3.1 x 3.2 x 8.5 cm extending along the left iliopsoas/iliacus muscles. This could represent peridiverticular abscess/contained perforation. Not drainable per IR. Family does not want aggressive measures (OR). s/p abx per ID -? reimage if wbc worsens -supportive -nutritional optimization 2. Anemia: No overt bleed noted -Monitor and transfuse as needed -Per hematology 3. VDRF: -Pulmonary toilet -Vent management per pulmonary 4. CKD -Limit nephrotoxic meds -Renally dose meds -Per renal 5. Atrial fibrillation history -Rate control 6. Heart failure: -Cardiac optimization 7. Dysphagia with PEG placement -Continue tube feeds with aspiration precautions Thank you Subjective 24 Hr Interval Summary WBC increased to 11. Tachycardia. Tolerating diet. No fevers, congested cough, labored breathing, vomiting, diarrhea, sz, rash. Exam/Review of Systems Vital Signs Vitals Vital Signs Date Temp Pulse Resp B/P (MAP) Pulse Ox O2 O2 Flow FiO2 Time Delivery Rate 03/31/19 105 08:01 03/31/19 99.1 17 176/72 99 07:30 (106) 03/31/19 30 05:40 03/30/19 Mechanical 07:35 Ventilator Intake and Output 03/30/19 03/30/19 03/31/19 1515:00 23:00 07:00 IntakeIntake Total 1120 ml 1520 ml OutputOutput Total 1900 ml 350 ml BalanceBalance -780 ml 1170 ml Exam Free Text/Dictation Constitutional: alert; No oriented, No distress Psych: nl mood/affect Head: normocephalic, atraumatic Eyes: nl conjunctiva, EOMI, nl lids, nl sclera ENMT: nl external ears & nose, nl lips & teeth, mucosa pink and moist Neck: supple, non-tender, other (Tracheostomy) Respiratory: normal air movement, other (Vent); No congested cough Cardiovascular: s1s2 Gastrointestinal: soft, non-tender, other (PEG); No distended Genitourinary - Female: nl external genitalia Musculoskeletal: nl extremities to inspection, nl gait and stance Extremities: normal pulses; No edema Neurological: No nl mental status, No nl speech (Nonverbal, noncommunicative), No nl strength, No focal weakness Skin: No rash or lesions Results Result Diagram: 03/31/1943903/31/19 0440 MARÍA ELENA MARTINEZ MD March 31, 2019 10:46
--- NOTE | 2019-03-31 11:02 | CONS ---
Assessment/Plan Assessment/Plan Hospital Course (Demo Recall) 73 yo with #Anemia -Hg > 10 -pt is noted to have a macrocytic anemia which is mostly likely 2/2 underlying myelodysplastic syndrome -continue epogen 40,000 units weekly -iron panel reveals mild iron deficiency. s/p ferrilict -vitamin b12 and folate levels are ok -past workup for anemia reveals a negative SPEP and no signs of hemolysis. will however recheck LDH, haptoglobin and retic -f/u colonoscopy results # fluid collection -measuring 3.1 x 3.2 x 8.5 cm extending along the left iliopsoas/iliacus muscles. This could represent peridiverticular abscess/contained perforation. -not drainable per IR -pt is currently on vancomycin and zosyn Consultation Date/Type/Reason Admit Date/Time March 17, 2019 at 14:33 Initial Consult Date 03/18/19 Type of Consult hematology Reason for Consultation anemia Requesting Provider: IMER VARGAS Date/Time of Note DATE: 03/31/19 TIME: 10:57 24 HR Interval Summary Free Text/Dictation no acute overnight events. Hg went up to 10. no GIB. pt restarted on G tube feeds Exam/Review of Systems Exam Vitals Vital Signs Date Temp Pulse Resp B/P (MAP) Pulse Ox O2 O2 Flow FiO2 Time Delivery Rate 03/31/19 105 08:01 03/31/19 99.1 17 176/72 99 07:30 (106) 03/31/19 30 05:40 03/30/19 Mechanical 07:35 Ventilator Intake and Output 03/30/19 03/30/19 03/31/19 1515:00 23:00 07:00 IntakeIntake Total 1120 ml 1520 ml OutputOutput Total 1900 ml 350 ml BalanceBalance -780 ml 1170 ml Constitutional: alert, frail Psych: no complaints Head: normocephalic Eyes: nl conjunctiva ENMT: nl external ears & nose Neck: supple Respiratory: clear to auscultation Cardiovascular: regular rate and rhythm Gastrointestinal: soft Musculoskeletal: nl extremities to inspection Results Result Diagram: 03/31/19 0440 03/31/19 0440 Results 24hrs Laboratory Tests Test 03/31/19 00:30 03/31/19 04:40 Stool Occult Blood NEGATIVE White Blood Count 11.5 #H Red Blood Count 3.37 L Hemoglobin 10.3 L Hematocrit 35.5 #L Mean Corpuscular Volume 105.3 H Mean Corpuscular Hemoglobin 30.6 Mean Corpuscular Hemoglobin Concent 29.0 L Red Cell Distribution Width 18.5 H Platelet Count 287 Mean Platelet Volume 8.8 Immature Granulocytes % 0.900 H Neutrophils % 80.9 H Lymphocytes % 13.4 L Monocytes % 3.0 Eosinophils % 1.5 Basophils % 0.3 Nucleated Red Blood Cells % 0.0 Immature Granulocytes # 0.100 H Neutrophils # 9.3 H Lymphocytes # 1.6 Monocytes # 0.4 Eosinophils # 0.2 Basophils # 0.0 Nucleated Red Blood Cells # 0.0 Sodium Level 139 Potassium Level 5.1 Chloride Level 115 H Carbon Dioxide Level 19 L Anion Gap 5 Blood Urea Nitrogen 13 Creatinine 0.74 Est Glomerular Filtrat Rate mL/min Glucose Level 121 Calcium Level 8.6 Phosphorus Level 2.1 L Magnesium Level 1.9 Medications Medication Current Medications Acetaminophen (Tylenol Liquid) 650 mg Q4H PRN GTB MILD PAIN 1-3; Start 03/17/19 at 21:30 Bisacodyl (Dulcolax Supp) 10 mg DAILY PRN ME CONSTIPATION; Start 03/17/19 at 21:00 Chlorhexidine Gluconate (Peridex) 15 ml Q12H MM Last administered on 03/31/19at 09:15; Admin Dose 15 ML; Start 03/17/19 at 21:00 Digoxin (Digoxin) 0.125 mg DAILY@13 PO Last administered on 03/27/19at 13:16; Admin Dose 0.125 MG; Start 03/18/19 at 13:00 Docusate Sodium (Colace) 100 mg DAILY PO Last administered on 03/29/19at 08:54; Admin Dose 100 MG; Start 03/18/19 at 09:00 Levetiracetam (Keppra Liquid) 250 mg Q12H GTB Last administered on 03/31/19at 09:15; Admin Dose 250 MG; Start 03/17/19 at 21:00 Magnesium Hydroxide (Milk Of Mag) 30 ml DAILY PRN GTB CONSTIPATION; Start 03/17/19 at 21:00 Metoprolol Tartrate (Lopressor) 25 mg BID GTB Last administered on 03/31/19at 09:16; Admin Dose 25 MG; Start 03/17/19 at 21:00 Lansoprazole (Prevacid) 30 mg DAILY@06 GTB Last administered on 03/31/19 06:16; Admin Dose 30 MG; Start 03/18/19 at 06:00 Epoetin Amor-epbx (RETACRIT(non-esrd)) 40,000 unit We@1700 SC Last administered on 03/26/19 17:30; Admin Dose 40,000 UNIT; Start 03/19/19 at 17:00 Multivit/Ca Carb/ B Cmplx/FA/Prenat (Renee-Antonio) 1 tab DAILY GTB Last administered on 03/31/19 09:16; Admin Dose 1 TAB; Start 03/21/19 at 09:00 Zinc Sulfate (Zinc Sulfate) 220 mg DAILY GTB Last administered on 03/30/19 09:03; Admin Dose 220 MG; Start 03/21/19 at 09:00 Collagenase (Santyl) 1 applic BID TOP Last administered on 03/31/19 09:15; Admin Dose 1 APPLIC; Start 03/20/19 at 16:28 Vancomycin HCl (Vanco Iv Per Pharmacy) VANCOMYCIN PER PHARMACY PER PROTOCOL XX ; Start 03/23/19 at 06:30 Piperacillin Sod/ Tazobactam Sod 100 ml @ 200 mls/hr Q6 IVPB Last administered on 03/31/19 06:16; Admin Dose 200 MLS/HR; Start 03/23/19 at 06:30 Acetylcysteine (Mucomyst) 2 ml Q6H RESP THERAPY NEB Last administered on 03/31/19 01:22; Admin Dose 2 ML; Start 03/24/19 at 11:00 Levalbuterol (Xopenex Hfa) 2 puff Q6H RESP THERAPY INH Last administered on 03/31/19 01:22; Admin Dose 2 PUFF; Start 03/24/19 at 14:00 Triamcinolone Acetonide (Kenalog 0.1% Cr) 1 applic BID TOP Last administered on 03/31/19 09:19; Admin Dose 1 APPLIC; Start 03/27/19 at 09:00 Vancomycin HCl 1.25 gm/Sodium Chloride 250 ml @ 83.333 mls/ hr Q48H IVPB Last administered on 03/31/19 06:59; Admin Dose 83.333 MLS/HR; Start 03/31/19 at 06:00 Miscellaneous Information (*Order Clarification Bulletin) MEDICATION REQUIRES CLARIFICATI... Q8H XX Last administered on 03/31/19at 01:09; Admin Dose 1 EA; Start 03/30/19 at 08:30 Sodium Phosphate (Neutra-Phos) 250 mg BID GTB Last administered on 03/31/19at 09:15; Admin Dose 250 MG; Start 03/31/19 at 09:00 IJEOMA GROSSMAN M.D. March 31, 2019 11:02
--- NOTE | 2019-03-31 11:30 | CONS ---
Assessment/Plan Assessment/Plan Hospital Course (Demo Recall) IMP: 1.PVC-ongoing. EF 65% by echo 10/29. neg trop x 3 2.Bradycardia-to 50's 3.HTN-elevated 4.REsp failure-chronic s/p trach 5.SVT-short run. Again recurrent short run at approx 150-160 ? PAFL/AT 6.anemia Recc: -Tele -Continue BB with increase given recurrent short run SVT this am -will also add ACEI to improve BP -Continue abx's and f/u cx data -Continue digoxin -Continue mucomyst and bronchodilators Consultation Date/Type/Reason Admit Date/Time March 17, 2019 at 14:33 Initial Consult Date 03/18/19 Type of Consult Cardiology Reason for Consultation SVT/HTN Requesting Provider: IMER VARGAS Date/Time of Note DATE: 03/31/19 TIME: 11:25 Exam/Review of Systems Vital Signs Vitals Vital Signs Date Temp Pulse Resp B/P (MAP) Pulse Ox O2 O2 Flow FiO2 Time Delivery Rate 03/31/19 105 08:01 03/31/19 99.1 17 176/72 99 07:30 (106) 03/31/19 30 05:40 03/30/19 Mechanical 07:35 Ventilator Intake and Output 03/30/19 03/30/19 03/31/19 1515:00 23:00 07:00 IntakeIntake Total 1120 ml 1520 ml OutputOutput Total 1900 ml 350 ml BalanceBalance -780 ml 1170 ml Exam Exam Review of Systems: CONSTITUTIONAL: No fevers, chills. PULMONARY: No sob CARDIOVASCULAR: No chest pain/palpitations GASTROINTESTINAL: No nausea/vomiting. GENITOURINARY: No hematuria/dysuria. MUSCULOSKELETAL: No myagias/arthalgias. PSYCHIATRIC: The patient denies depression. NEUROLOGIC:lethargic Constitutional: other (sleeping) Psych: no complaints ENMT: mucosa pink and moist Neck: other (trached) Respiratory: diminished breath sounds (at bases/B) Cardiovascular: regular rate and rhythm Gastrointestinal: soft, non-tender Musculoskeletal: muscle weakness (mild generalized) Extremities: edema (none) Neurological: other (No focal deficits) Labs Result Diagram: 03/31/19 0440 03/31/19 0440 Results 24hrs Laboratory Tests Test 03/31/19 00:30 03/31/19 04:40 Stool Occult Blood NEGATIVE White Blood Count 11.5 #H Red Blood Count 3.37 L Hemoglobin 10.3 L Hematocrit 35.5 #L Mean Corpuscular Volume 105.3 H Mean Corpuscular Hemoglobin 30.6 Mean Corpuscular Hemoglobin Concent 29.0 L Red Cell Distribution Width 18.5 H Platelet Count 287 Mean Platelet Volume 8.8 Immature Granulocytes % 0.900 H Neutrophils % 80.9 H Lymphocytes % 13.4 L Monocytes % 3.0 Eosinophils % 1.5 Basophils % 0.3 Nucleated Red Blood Cells % 0.0 Immature Granulocytes # 0.100 H Neutrophils # 9.3 H Lymphocytes # 1.6 Monocytes # 0.4 Eosinophils # 0.2 Basophils # 0.0 Nucleated Red Blood Cells # 0.0 Sodium Level 139 Potassium Level 5.1 Chloride Level 115 H Carbon Dioxide Level 19 L Anion Gap 5 Blood Urea Nitrogen 13 Creatinine 0.74 Est Glomerular Filtrat Rate mL/min Glucose Level 121 Calcium Level 8.6 Phosphorus Level 2.1 L Magnesium Level 1.9 Medications Medications Current Medications Acetaminophen (Tylenol Liquid) 650 mg Q4H PRN GTB MILD PAIN 1-3; Start 03/17/19 at 21:30 Bisacodyl (Dulcolax Supp) 10 mg DAILY PRN OR CONSTIPATION; Start 03/17/19 at 21:00 Chlorhexidine Gluconate (Peridex) 15 ml Q12H MM Last administered on 03/31/19at 09:15; Admin Dose 15 ML; Start 03/17/19 at 21:00 Digoxin (Digoxin) 0.125 mg DAILY@13 PO Last administered on 03/27/19at 13:16; Admin Dose 0.125 MG; Start 03/18/19 at 13:00 Docusate Sodium (Colace) 100 mg DAILY PO Last administered on 03/29/19at 08:54; Admin Dose 100 MG; Start 03/18/19 at 09:00 Levetiracetam (Keppra Liquid) 250 mg Q12H GTB Last administered on 03/31/19at 09:15; Admin Dose 250 MG; Start 03/17/19 at 21:00 Magnesium Hydroxide (Milk Of Mag) 30 ml DAILY PRN GTB CONSTIPATION; Start at 21:00 Metoprolol Tartrate (Lopressor) 25 mg BID GTB Last administered on 03/31/19 09:16; Admin Dose 25 MG; Start 03/17/19 at 21:00 Lansoprazole (Prevacid) 30 mg DAILY@06 GTB Last administered on 03/31/19 06:16; Admin Dose 30 MG; Start 03/18/19 at 06:00 Epoetin Amor-epbx (RETACRIT(non-esrd)) 40,000 unit We@1700 SC Last administered on 03/26/19 17:30; Admin Dose 40,000 UNIT; Start 03/19/19 at 17:00 Multivit/Ca Carb/ B Cmplx/FA/Prenat (Renee-Antonio) 1 tab DAILY GTB Last administered on 03/31/19 09:16; Admin Dose 1 TAB; Start 03/21/19 at 09:00 Zinc Sulfate (Zinc Sulfate) 220 mg DAILY GTB Last administered on 03/30/19 09:03; Admin Dose 220 MG; Start 03/21/19 at 09:00 Collagenase (Santyl) 1 applic BID TOP Last administered on 03/31/19 09:15; Admin Dose 1 APPLIC; Start 03/20/19 at 16:28 Vancomycin HCl (Vanco Iv Per Pharmacy) VANCOMYCIN PER PHARMACY PER PROTOCOL XX ; Start 03/23/19 at 06:30 Piperacillin Sod/ Tazobactam Sod 100 ml @ 200 mls/hr Q6 IVPB Last administered on 03/31/19 06:16; Admin Dose 200 MLS/HR; Start 03/23/19 at 06:30 Acetylcysteine (Mucomyst) 2 ml Q6H RESP THERAPY NEB Last administered on 03/31/19 01:22; Admin Dose 2 ML; Start 03/24/19 at 11:00 Levalbuterol (Xopenex Hfa) 2 puff Q6H RESP THERAPY INH Last administered on 03/31/19 01:22; Admin Dose 2 PUFF; Start 03/24/19 at 14:00 Triamcinolone Acetonide (Kenalog 0.1% Cr) 1 applic BID TOP Last administered on 03/31/19 09:19; Admin Dose 1 APPLIC; Start 03/27/19 at 09:00 Vancomycin HCl 1.25 gm/Sodium Chloride 250 ml @ 83.333 mls/ hr Q48H IVPB Last administered on 03/31/19 06:59; Admin Dose 83.333 MLS/HR; Start 03/31/19 at 06:00 Miscellaneous Information (*Order Clarification Bulletin) MEDICATION REQUIRES CLARIFICATI... Q8H XX Last administered on 03/31/19 01:09; Admin Dose 1 EA; Start 03/30/19 at 08:30 Sodium Phosphate (Neutra-Phos) 250 mg BID GTB Last administered on 03/31/19 09:15; Admin Dose 250 MG; Start 03/31/19 at 09:00 LUIS FERGUSON March 31, 2019 11:30
[2019-03-31] MEDS: ZINC SULFATE 220 MG CAP GTB SCH (11:44)
[2019-03-31] MEDS: DIGOXIN 0.125 MG TAB PO SCH (13:52)
--- NOTE | 2019-03-31 14:25 | CONS ---
Assessment/Plan Assessment/Plan Hospital Course (Demo Recall) All noted. No acute changes overnight patient is noncommunicative in no distress no fevers Indwelling: Trach, PEG, Damon Antimicrobials: Vancomycin, Zosyn Physical examination: Chronically ill-appearing elderly woman in no distress. Head atraumatic normocephalic neck is supple tracheostomy present chest rise symmetrical breath sounds diminished bases. Heart: S1-S2. Abdomen soft bowel sounds present. Assessment: 1. Sigmoid diverticulosis with abscess 2. Left lower lobe atelectasis ? PNA 3. Chronic respiratory failure and dysphagia 4. Seizure disorder 5. Acute on chronic encephalopathy 6. Chronic kidney disease 7. Urinary tract infection as per urinalysis Plan: Clinically unchanged, surgical rec-s noted, no aggressive measures per family, continue antibiotics Consultation Date/Type/Reason Admit Date/Time March 17, 2019 at 14:33 Initial Consult Date 03/18/19 Type of Consult id Requesting Provider: IMER VARGAS Date/Time of Note DATE: 03/31/19 TIME: 14:25 Exam/Review of Systems Exam Vitals Vital Signs Date Temp Pulse Resp B/P (MAP) Pulse Ox O2 O2 Flow FiO2 Time Delivery Rate 03/31/19 78 12:01 03/31/19 99.3 16 167/73 100 11:28 (104) 03/31/19 30 08:20 03/30/19 Mechanical 07:35 Ventilator Intake and Output 03/30/19 03/30/19 03/31/19 1515:00 23:00 07:00 IntakeIntake Total 1120 ml 1520 ml OutputOutput Total 1900 ml 350 ml BalanceBalance -780 ml 1170 ml Results Result Diagram: 03/31/19 0440 03/31/19 0440 Results 24hrs Laboratory Tests Test 03/31/19 00:30 03/31/19 04:40 Stool Occult Blood NEGATIVE White Blood Count 11.5 #H Red Blood Count 3.37 L Hemoglobin 10.3 L Hematocrit 35.5 #L Mean Corpuscular Volume 105.3 H Mean Corpuscular Hemoglobin 30.6 Mean Corpuscular Hemoglobin Concent 29.0 L Red Cell Distribution Width 18.5 H Platelet Count 287 Mean Platelet Volume 8.8 Immature Granulocytes % 0.900 H Neutrophils % 80.9 H Lymphocytes % 13.4 L Monocytes % 3.0 Eosinophils % 1.5 Basophils % 0.3 Nucleated Red Blood Cells % 0.0 Immature Granulocytes # 0.100 H Neutrophils # 9.3 H Lymphocytes # 1.6 Monocytes # 0.4 Eosinophils # 0.2 Basophils # 0.0 Nucleated Red Blood Cells # 0.0 Sodium Level 139 Potassium Level 5.1 Chloride Level 115 H Carbon Dioxide Level 19 L Anion Gap 5 Blood Urea Nitrogen 13 Creatinine 0.74 Est Glomerular Filtrat Rate mL/min Glucose Level 121 Calcium Level 8.6 Phosphorus Level 2.1 L Magnesium Level 1.9 Medications Medication Current Medications Acetaminophen (Tylenol Liquid) 650 mg Q4H PRN GTB MILD PAIN 1-3; Start 03/17/19 at 21:30 Bisacodyl (Dulcolax Supp) 10 mg DAILY PRN CO CONSTIPATION; Start 03/17/19 at 21:00 Chlorhexidine Gluconate (Peridex) 15 ml Q12H MM Last administered on 03/31/19 09:15; Admin Dose 15 ML; Start 03/17/19 at 21:00 Digoxin (Digoxin) 0.125 mg DAILY@13 PO Last administered on 03/31/19at 13:52; Admin Dose 0.125 MG; Start 03/18/19 at 13:00 Docusate Sodium (Colace) 100 mg DAILY PO Last administered on 03/29/19 08:54; Admin Dose 100 MG; Start 03/18/19 at 09:00 Levetiracetam (Keppra Liquid) 250 mg Q12H GTB Last administered on 03/31/19 09:15; Admin Dose 250 MG; Start 03/17/19 at 21:00 Magnesium Hydroxide (Milk Of Mag) 30 ml DAILY PRN GTB CONSTIPATION; Start 03/17/19 at 21:00 Lansoprazole (Prevacid) 30 mg DAILY@06 GTB Last administered on 03/31/19at 06:16; Admin Dose 30 MG; Start 03/18/19 at 06:00 Epoetin Amor-epbx (RETACRIT(non-esrd)) 40,000 unit We@1700 SC Last administered on 03/26/19at 17:30; Admin Dose 40,000 UNIT; Start 03/19/19 at 17:00 Multivit/Ca Carb/ B Cmplx/FA/Prenat (Renee-Antonio) 1 tab DAILY GTB Last administered on 03/31/19 09:16; Admin Dose 1 TAB; Start 03/21/19 at 09:00 Zinc Sulfate (Zinc Sulfate) 220 mg DAILY GTB Last administered on 03/31/19 11:44; Admin Dose 220 MG; Start 03/21/19 at 09:00 Collagenase (Santyl) 1 applic BID TOP Last administered on 03/31/19 09:15; Admin Dose 1 APPLIC; Start 03/20/19 at 16:28 Vancomycin HCl (Vanco Iv Per Pharmacy) VANCOMYCIN PER PHARMACY PER PROTOCOL XX ; Start 03/23/19 at 06:30 Piperacillin Sod/ Tazobactam Sod 100 ml @ 200 mls/hr Q6 IVPB Last administered on 03/31/19 11:44; Admin Dose 200 MLS/HR; Start 03/23/19 at 06:30 Acetylcysteine (Mucomyst) 2 ml Q6H RESP THERAPY NEB Last administered on 03/31/19 08:20; Admin Dose 2 ML; Start 03/24/19 at 11:00 Levalbuterol (Xopenex Hfa) 2 puff Q6H RESP THERAPY INH Last administered on 03/31/19 08:20; Admin Dose 2 PUFF; Start 03/24/19 at 14:00 Triamcinolone Acetonide (Kenalog 0.1% Cr) 1 applic BID TOP Last administered on 03/31/19 09:19; Admin Dose 1 APPLIC; Start 03/27/19 at 09:00 Vancomycin HCl 1.25 gm/Sodium Chloride 250 ml @ 83.333 mls/ hr Q48H IVPB Last administered on 03/31/19 06:59; Admin Dose 83.333 MLS/HR; Start 03/31/19 at 06 :00 Miscellaneous Information (*Order Clarification Bulletin) MEDICATION REQUIRES CLARIFICATI... Q8H XX Last administered on 03/31/19 01:09; Admin Dose 1 EA; Start 03/30/19 at 08:30 Sodium Phosphate (Neutra-Phos) 250 mg BID GTB Last administered on 03/31/19 09:15; Admin Dose 250 MG; Start 03/31/19 at 09:00 Metoprolol Tartrate (Lopressor) 25 mg Q8 GTB Last administered on 5/20/19at 13:53; Admin Dose 25 MG; Start 03/31/19 at 14:00 Benazepril HCl (Lotensin) 10 mg BID PO ; Start 03/31/19 at 21:00 DEBO UMANA NP March 31, 2019 14:25
--- NOTE | 2019-03-31 17:24 | PN ---
Date/Time of Note Date/Time of Note DATE: 03/31/19 TIME: 17:20 Assessment/Plan VTE Prophylaxis Risk score (from Ns)>0 risk: 7 SCD applied (from Ns): Yes Pharmacological prophylaxis: NA/contraindicated Pharm contraindication: bleeding Lines/Catheters IV [facility] Type [facility]from [facility] Peripheral IV Urinary Cath still in place: Yes Reason Cath still needed: urinary retention Assessment/Plan Hospital Course Patient with increased leukocytosis, low-grade fever and elevated blood pressure. Tolerates G-tube feeding per RN with minimal residual. Patient is continues on Vanco Zosyn. Assessment/Plan -Diverticular abscess, Dr Mario is following in surgical consultation. Abscess is too small for drainage by IR. Family did not want any surgical intervention. Plan to repeat CT in 2 weeks. -Severe diverticulosis with spasm per colonoscopy. Dr. Galdamez is following in gastroenterology consultation. -Anemia. Stool for OB neg. Continue Epogen and Iron supplementation. Dr. Kiser is following in hematology consultation -Ventilator dependent respiratory failure with tracheostomy. Dr. Davenport is following in pulmonology consultation. -Acute on chronic kidney disease. Monitor BUN and creatinine. Dr. Grant is following in nephrology consultation -Atrial fibrillation, continue metoprolol -Diastolic congestive heart failure. Dr. Hernandez is following in cardiology consultation. -Pulmonary fibrosis, continue Pulmicort. -Dysphagia with G-tube. -Chronic encephalopathy -COPD -History of CVA, continue aspirin. -Seizure disorder/status epilepticus. Continue Keppra and Ativan as needed. -MRSA nares colonization Further recommendations based on clinical course. Plan of care discussed with Dr. Phillips. Result Diagram: 03/31/19 0440 03/31/19 0440 Results 24hrs Laboratory Tests Test 03/31/19 00:30 03/31/19 04:40 Stool Occult Blood NEGATIVE White Blood Count 11.5 #H Red Blood Count 3.37 L Hemoglobin 10.3 L Hematocrit 35.5 #L Mean Corpuscular Volume 105.3 H Mean Corpuscular Hemoglobin 30.6 Mean Corpuscular Hemoglobin Concent 29.0 L Red Cell Distribution Width 18.5 H Platelet Count 287 Mean Platelet Volume 8.8 Immature Granulocytes % 0.900 H Neutrophils % 80.9 H Lymphocytes % 13.4 L Monocytes % 3.0 Eosinophils % 1.5 Basophils % 0.3 Nucleated Red Blood Cells % 0.0 Immature Granulocytes # 0.100 H Neutrophils # 9.3 H Lymphocytes # 1.6 Monocytes # 0.4 Eosinophils # 0.2 Basophils # 0.0 Nucleated Red Blood Cells # 0.0 Sodium Level 139 Potassium Level 5.1 Chloride Level 115 H Carbon Dioxide Level 19 L Anion Gap 5 Blood Urea Nitrogen 13 Creatinine 0.74 Est Glomerular Filtrat Rate mL/min Glucose Level 121 Calcium Level 8.6 Phosphorus Level 2.1 L Magnesium Level 1.9 Exam/Review of Systems Exam Vitals Vital Signs Date Temp Pulse Resp B/P (MAP) Pulse Ox O2 O2 Flow FiO2 Time Delivery Rate 03/31/19 98.1 72 17 146/66 98 15:26 (92) 03/31/19 30 14:51 03/30/19 Mechanical 07:35 Ventilator Intake and Output 03/30/19 03/30/19 03/31/19 1515:00 23:00 07:00 IntakeIntake Total 1120 ml 1520 ml OutputOutput Total 1900 ml 350 ml BalanceBalance -780 ml 1170 ml Exam Constitutional: frail Neck: other (trach) Respiratory: diminished breath sounds Cardiovascular: regular rate and rhythm Gastrointestinal: soft, non-tender, other (G-tube) Extremities: normal pulses Neurological: lethargic Results Results 24hrs Laboratory Tests Test 03/31/19 00:30 03/31/19 04:40 Stool Occult Blood NEGATIVE White Blood Count 11.5 #H Red Blood Count 3.37 L Hemoglobin 10.3 L Hematocrit 35.5 #L Mean Corpuscular Volume 105.3 H Mean Corpuscular Hemoglobin 30.6 Mean Corpuscular Hemoglobin Concent 29.0 L Red Cell Distribution Width 18.5 H Platelet Count 287 Mean Platelet Volume 8.8 Immature Granulocytes % 0.900 H Neutrophils % 80.9 H Lymphocytes % 13.4 L Monocytes % 3.0 Eosinophils % 1.5 Basophils % 0.3 Nucleated Red Blood Cells % 0.0 Immature Granulocytes # 0.100 H Neutrophils # 9.3 H Lymphocytes # 1.6 Monocytes # 0.4 Eosinophils # 0.2 Basophils # 0.0 Nucleated Red Blood Cells # 0.0 Sodium Level 139 Potassium Level 5.1 Chloride Level 115 H Carbon Dioxide Level 19 L Anion Gap 5 Blood Urea Nitrogen 13 Creatinine 0.74 Est Glomerular Filtrat Rate mL/min Glucose Level 121 Calcium Level 8.6 Phosphorus Level 2.1 L Magnesium Level 1.9 Medications Medication Current Medications Acetaminophen (Tylenol Liquid) 650 mg Q4H PRN GTB MILD PAIN 1-3; Start 03/17/19 at 21:30 Bisacodyl (Dulcolax Supp) 10 mg DAILY PRN MD CONSTIPATION; Start 03/17/19 at 21:00 Chlorhexidine Gluconate (Peridex) 15 ml Q12H MM Last administered on 03/31/19 09:15; Admin Dose 15 ML; Start 03/17/19 at 21:00 Digoxin (Digoxin) 0.125 mg DAILY@13 PO Last administered on 03/31/19 13:52; Admin Dose 0.125 MG; Start 03/18/19 at 13:00 Docusate Sodium (Colace) 100 mg DAILY PO Last administered on 03/29/19 08:54; Admin Dose 100 MG; Start 03/18/19 at 09:00 Levetiracetam (Keppra Liquid) 250 mg Q12H GTB Last administered on 03/31/19 09:15; Admin Dose 250 MG; Start 03/17/19 at 21:00 Magnesium Hydroxide (Milk Of Mag) 30 ml DAILY PRN GTB CONSTIPATION; Start 03/17/19 at 21:00 Lansoprazole (Prevacid) 30 mg DAILY@06 GTB Last administered on 03/31/19 06:16; Admin Dose 30 MG; Start 03/18/19 at 06:00 Epoetin Amor-epbx (RETACRIT(non-esrd)) 40,000 unit We@1700 SC Last administered on 03/26/19 17:30; Admin Dose 40,000 UNIT; Start 03/19/19 at 17:00 Multivit/Ca Carb/ B Cmplx/FA/Prenat (Renee-Antonio) 1 tab DAILY GTB Last administered on 03/31/19 09:16; Admin Dose 1 TAB; Start 03/21/19 at 09:00 Zinc Sulfate (Zinc Sulfate) 220 mg DAILY GTB Last administered on 03/31/19 11:44; Admin Dose 220 MG; Start 03/21/19 at 09:00 Collagenase (Santyl) 1 applic BID TOP Last administered on 03/31/19 09:15; Admin Dose 1 APPLIC; Start 03/20/19 at 16:28 Vancomycin HCl (Vanco Iv Per Pharmacy) VANCOMYCIN PER PHARMACY PER PROTOCOL XX ; Start 03/23/19 at 06:30 Piperacillin Sod/ Tazobactam Sod 100 ml @ 200 mls/hr Q6 IVPB Last administered on 03/31/19 11:44; Admin Dose 200 MLS/HR; Start 03/23/19 at 06:30 Acetylcysteine (Mucomyst) 2 ml Q6H RESP THERAPY NEB Last administered on 03/31/19 14:50; Admin Dose 2 ML; Start 03/24/19 at 11:00 Levalbuterol (Xopenex Hfa) 2 puff Q6H RESP THERAPY INH Last administered on 03/31/19 14:50; Admin Dose 2 PUFF; Start 03/24/19 at 14:00 Triamcinolone Acetonide (Kenalog 0.1% Cr) 1 applic BID TOP Last administered on 03/31/19 09:19; Admin Dose 1 APPLIC; Start 03/27/19 at 09:00 Vancomycin HCl 1.25 gm/Sodium Chloride 250 ml @ 83.333 mls/ hr Q48H IVPB Last administered on 03/31/19 06:59; Admin Dose 83.333 MLS/HR; Start 03/31/19 at 06:00 Sodium Phosphate (Neutra-Phos) 250 mg BID GTB Last administered on 03/31/19 09:15; Admin Dose 250 MG; Start 03/31/19 at 09:00 Metoprolol Tartrate (Lopressor) 25 mg Q8 GTB Last administered on 03/31/19 13:53; Admin Dose 25 MG; Start 03/31/19 at 14:00 Benazepril HCl (Lotensin) 10 mg BID PO ; Start 03/31/19 at 21:00 IMER VARGAS March 31, 2019 17:24
[2019-03-31] MEDS: BENAZEPRIL 10 MG TAB PO SCH (21:51)
[2019-04-01] VITALS (22 sets, daily range): BP systolic 114–149; BP diastolic 56–67; PULSE 53–67; RESP 16–20
[2019-04-01] MEDS: PIPER-TAZO 3.375 GM IV (PMX) 100 ML IVPB SCH ×4 (00:57→17:30)
[2019-04-01] MEDS: ACETYLCYSTEINE 20% 4 ML VIAL NEB SCH ×4 (01:06→20:47)
[2019-04-01] MEDS: LEVALBUTEROL (HFA) 15 GM INHALER INH SCH ×5 (01:06→20:47)
[2019-04-01] MEDS: METOPROLOL 25 MG TAB GTB SCH ×3 (06:03→22:00)
[2019-04-01] MEDS: LANSOPRAZOLE 30 MG CAP GTB SCH (06:03)
--- NOTE | 2019-04-01 08:37 | PN ---
DATE: 04/01/2019 SUBJECTIVE: The patient is stable. No events overnight. OBJECTIVE: VITAL SIGNS: Blood pressure is 114/56, pulse 57, respirations 17, temperature 98.2. HEENT: Head is normocephalic. NECK: Supple. HEART: Regular rate. LUNGS: Show diminished breath sounds at the base. ABDOMEN: Soft, nontender to palpation without rebound or guarding. EXTREMITIES: Negative for clubbing, cyanosis, no edema. DERMATOLOGIC: No rashes. MUSCULOSKELETAL: No joint effusion. NEUROLOGIC: No change in exam. MEDICATIONS: Reviewed. LABORATORY DATA: Reviewed. ASSESSMENT AND PLAN: 1. Chronic kidney disease, stage III. Renal function is stable. Continue current treatment plans, supportive care, renally dose all medications. 2. Hypokalemia and hypomagnesemia, improved. Continue to monitor. 3. Mineral bone disorder. The patient is on sodium phosphate. We will repeat a phosphorus level. 4. Anemia. Monitor hemoglobin and hematocrit levels. 5. Hypertension. Continue current blood pressure regimen. 6. Diverticulosis. Continue to monitor. 7. Ventilator-dependent respiratory failure. Vent settings have been reviewed. Continue to monitor . 8. Dysphagia. Continue tube feeding. 9. Chronic encephalopathy. No change. 10. Seizure disorder. Continue current medical management. Dictated By: RAJINDER ATWOOD DO NR/NTS Conf#: [id number] DID#: [id number] CC: MENDEL FIELDS MD; JAYLEN LUGO MD;*EndCC*
--- NOTE | 2019-04-01 08:41 | CONS ---
Assessment/Plan Assessment/Plan Hospital Course (Demo Recall) 73 yo female 1. Anemia of chronic disease --per DR Kiser note "pt is noted to have a macrocytic anemia which is mostly likely 2/2 underlying myelodysplastic syndrome" 2. Chronic kidney disease. 3. Hypertension. 4. Paroxysmal atrial fibrillation. 5. Cerebrovascular accident. 6. Possible meningioma. 7. Vent dependent respiratory failure. 8. Dysphagia, status post G-tube. 9. S/P colonoscopy 03/20 -found severe diverticulosis of left side of colon with spasm and poor prep 10. Walled off diverticular perforation abscess PLAN: Continue present care. Repeat CT scan in around end of first week of April to re evaluate abscess Pt examined and plan of care discussed with Dr. Galdamez Consultation Date/Type/Reason Admit Date/Time March 17, 2019 at 14:33 Initial Consult Date 03/18/19 Requesting Provider: IMER VARGAS Date/Time of Note DATE: 04/01/19 TIME: 08:39 24 HR Interval Summary Free Text/Dictation Abdomen soft. BM qd. Tolerating tube feeds. Afebrile. WBC wnl. Exam/Review of Systems Exam Vitals Vital Signs Date Temp Pulse Resp B/P (MAP) Pulse Ox O2 O2 Flow FiO2 Time Delivery Rate 04/01/19 98.2 57 17 114/56 100 07:32 (75) 04/01/19 30 07:21 03/30/19 Mechanical 07:35 Ventilator Intake and Output 03/31/19 03/31/19 04/01/19 1515:00 23:00 07:00 IntakeIntake Total 1320 ml OutputOutput Total 1000 ml BalanceBalance 320 ml Constitutional: alert Head: normocephalic Eyes: PERRL Gastrointestinal: soft, non-tender, bowel sounds Results Result Diagram: 04/01/1951104/01/19 0512 Results 24hrs Laboratory Tests Test 04/01/19 05:12 White Blood Count 6.0 # Red Blood Count 2.87 L Hemoglobin 8.9 L Hematocrit 30.4 L Mean Corpuscular Volume 105.9 H Mean Corpuscular Hemoglobin 31.0 Mean Corpuscular Hemoglobin Concent 29.3 L Red Cell Distribution Width 18.1 H Platelet Count 229 # Mean Platelet Volume 9.0 Immature Granulocytes % 0.800 H Neutrophils % 63.2 Lymphocytes % 27.0 Monocytes % 5.2 Eosinophils % 3.3 Basophils % 0.5 Nucleated Red Blood Cells % 0.0 Immature Granulocytes # 0.050 H Neutrophils # 3.8 Lymphocytes # 1.6 Monocytes # 0.3 Eosinophils # 0.2 Basophils # 0.0 Nucleated Red Blood Cells # 0.0 Sodium Level 143 Potassium Level 4.6 Chloride Level 117 H Carbon Dioxide Level 21 Anion Gap 5 Blood Urea Nitrogen 16 Creatinine 0.79 Est Glomerular Filtrat Rate mL/min Glucose Level 98 Calcium Level 8.4 Medications Medication Current Medications Acetaminophen (Tylenol Liquid) 650 mg Q4H PRN GTB MILD PAIN 1-3; Start 03/17/19 at 21:30 Bisacodyl (Dulcolax Supp) 10 mg DAILY PRN [place] CONSTIPATION; Start 03/17/19 at 21:00 Chlorhexidine Gluconate (Peridex) 15 ml Q12H MM Last administered on 03/31/19at 21:51; Admin Dose 15 ML; Start 03/17/19 at 21:00 Digoxin (Digoxin) 0.125 mg DAILY@13 PO Last administered on 03/31/19at 13:52; Admin Dose 0.125 MG; Start 03/18/19 at 13:00 Docusate Sodium (Colace) 100 mg DAILY PO Last administered on 03/29/19at 08:54; Admin Dose 100 MG; Start 03/18/19 at 09:00 Levetiracetam (Keppra Liquid) 250 mg Q12H GTB Last administered on 03/31/19at 21:50; Admin Dose 250 MG; Start 03/17/19 at 21:00 Magnesium Hydroxide (Milk Of Mag) 30 ml DAILY PRN GTB CONSTIPATION; Start 03/17/19 at 21:00 Lansoprazole (Prevacid) 30 mg DAILY@06 GTB Last administered on 04/01/19at 0 6:03; Admin Dose 30 MG; Start 03/18/19 at 06:00 Epoetin Amor-epbx (RETACRIT(non-esrd)) 40,000 unit We@1700 SC Last administered on 03/26/19at 17:30; Admin Dose 40,000 UNIT; Start 03/19/19 at 17:00 Multivit/Ca Carb/ B Cmplx/FA/Prenat (Renee-Antonio) 1 tab DAILY GTB Last administered on 03/31/19 09:16; Admin Dose 1 TAB; Start 03/21/19 at 09:00 Zinc Sulfate (Zinc Sulfate) 220 mg DAILY GTB Last administered on 03/31/19 11:44; Admin Dose 220 MG; Start 03/21/19 at 09:00 Collagenase (Santyl) 1 applic BID TOP Last administered on 03/31/19 21:52; Admin Dose 1 APPLIC; Start 03/20/19 at 16:28 Vancomycin HCl (Vanco Iv Per Pharmacy) VANCOMYCIN PER PHARMACY PER PROTOCOL XX ; Start 03/23/19 at 06:30 Piperacillin Sod/ Tazobactam Sod 100 ml @ 200 mls/hr Q6 IVPB Last administered on 04/01/19 06:08; Admin Dose 200 MLS/HR; Start 03/23/19 at 06:30 Acetylcysteine (Mucomyst) 2 ml Q6H RESP THERAPY NEB Last administered on 04/01/19 07:20; Admin Dose 2 ML; Start 03/24/19 at 11:00 Levalbuterol (Xopenex Hfa) 2 puff Q6H RESP THERAPY INH Last administered on 04/01/19 07:20; Admin Dose 2 PUFF; Start 03/24/19 at 14:00 Triamcinolone Acetonide (Kenalog 0.1% Cr) 1 applic BID TOP Last administered on 03/31/19 21:52; Admin Dose 1 APPLIC; Start 03/27/19 at 09:00 Vancomycin HCl 1.25 gm/Sodium Chloride 250 ml @ 83.333 mls/ hr Q48H IVPB Last administered on 03/31/19 06:59; Admin Dose 83.333 MLS/HR; Start 03/31/19 at 06:00 Sodium Phosphate (Neutra-Phos) 250 mg BID GTB Last administered on 03/31/19 21:50; Admin Dose 250 MG; Start 03/31/19 at 09:00 Metoprolol Tartrate (Lopressor) 25 mg Q8 GTB Last administered on 04/01/19 06:03; Admin Dose 25 MG; Start 03/31/19 at 14:00 Benazepril HCl (Lotensin) 10 mg BID PO Last administered on 03/31/19 21:51; Admin Dose 10 MG; Start 03/31/19 at 21:00 TEODORA DAVILA April 01, 2019 08:41
[2019-04-01] MEDS: CHLORHEXIDINE GLUCONATE 15 ML UD CUP MM SCH ×2 (09:06→21:42)
[2019-04-01] MEDS: ZINC SULFATE 220 MG CAP GTB SCH (09:07)
[2019-04-01] MEDS: TRIAMCINOLONE ACET 0.1% 15 GM CR TOP SCH ×2 (09:07→21:42)
[2019-04-01] MEDS: MULTIVIT/CA CARB/B CMPLX/FA TAB GTB SCH (09:07)
[2019-04-01] MEDS: LEVETIRACETAM (100 MG/ML) 5ML CUP GTB SCH ×2 (09:07→21:40)
[2019-04-01] MEDS: DOCUSATE SODIUM 100 MG CAP PO SCH (09:07)
[2019-04-01] MEDS: BENAZEPRIL 10 MG TAB PO SCH ×2 (09:07→21:41)
[2019-04-01] MEDS: COLLAGENASE 5 GM (UD JAR) TOP SCH ×2 (09:07→21:41)
[2019-04-01] MEDS: NEUTRA-PHOS 250 MG PACKET GTB SCH ×2 (09:08→21:40)
--- NOTE | 2019-04-01 11:10 | PN ---
Date/Time of Note Date/Time of Note DATE: 04/01/19 TIME: 11:07 Assessment/Plan Lines/Catheters IV Catheter Type (from [facility]): Saline Lock Damon in Place (from [facility]): Yes Assessment/Plan Chief Complaint/Hosp Course 1. Sigmoid diverticulosis with a focal area of abnormal wall thickening of the proximal sigmoid colon with an adjacent gas containing fluid collection measuring 3.1 x 3.2 x 8.5 cm extending along the left iliopsoas/iliacus muscles. This could represent peridiverticular abscess/contained perforation. Not drainable per IR. Family does not want aggressive measures (OR). s/p abx per ID -? reimage if wbc worsens (wbc nl) -supportive -nutritional optimization -dc planning ok from surgical standpoint 2. Anemia: No overt bleed noted -Monitor and transfuse as needed -Per hematology 3. VDRF: -Pulmonary toilet -Vent management per pulmonary 4. CKD -Limit nephrotoxic meds -Renally dose meds -Per renal 5. Atrial fibrillation history -Rate control 6. Heart failure: -Cardiac optimization 7. Dysphagia with PEG placement -Continue tube feeds with aspiration precautions Thank you. Patient seen and examined in collaboration with Dr. Harry Mario. Subjective 24 Hr Interval Summary WBC improved. Appears comfortable. Nonverbal indicators of pain not present. No fevers, congested cough, vomiting, diarrhea, sz, rash. Exam/Review of Systems Vital Signs Vitals Vital Signs Date Temp Pulse Resp B/P (MAP) Pulse Ox O2 O2 Flow FiO2 Time Delivery Rate 04/01/19 53 08:01 04/01/19 98.2 17 114/56 100 07:32 (75) 04/01/19 30 07:21 03/30/19 Mechanical 07:35 Ventilator Intake and Output 03/31/19 03/31/19 04/01/19 1515:00 23:00 07:00 IntakeIntake Total 1320 ml OutputOutput Total 1000 ml BalanceBalance 320 ml Exam Free Text/Dictation Constitutional: alert; No oriented, No distress Psych: nl mood/affect Head: normocephalic, atraumatic Eyes: nl conjunctiva, EOMI, nl lids, nl sclera ENMT: nl external ears & nose, nl lips & teeth, mucosa pink and moist Neck: supple, non-tender, other (Tracheostomy) Respiratory: normal air movement, other (Vent); No congested cough Cardiovascular: s1s2 Gastrointestinal: soft, non-tender, other (PEG); No distended Genitourinary - Female: nl external genitalia Musculoskeletal: nl extremities to inspection, nl gait and stance Extremities: normal pulses; No edema Neurological: No nl mental status, No nl speech (Nonverbal, noncommunicative), No nl strength, No focal weakness Skin: No rash or lesions Results Result Diagram: 04/01/19 0512 04/01/19 0512 EULA HICKMAN NP April 01, 2019 11:10
[2019-04-01] MEDS: DIGOXIN 0.125 MG TAB PO SCH (13:00)
--- NOTE | 2019-04-01 14:22 | CONS ---
Assessment/Plan Assessment/Plan Hospital Course (Demo Recall) 73 yo with #Anemia -Hg dropped to 8.9 -pt is noted to have a macrocytic anemia which is mostly likely 2/2 underlying myelodysplastic syndrome -continue epogen 40,000 units weekly -iron panel reveals mild iron deficiency. s/p ferrilict -vitamin b12 and folate levels are ok -past workup for anemia reveals a negative SPEP and no signs of hemolysis. will however recheck LDH, haptoglobin and retic -f/u colonoscopy results # fluid collection -measuring 3.1 x 3.2 x 8.5 cm extending along the left iliopsoas/iliacus muscles. This could represent peridiverticular abscess/contained perforation. -not drainable per IR -pt is currently on vancomycin and zosyn Consultation Date/Type/Reason Admit Date/Time March 17, 2019 at 14:33 Initial Consult Date 03/18/19 Type of Consult hematology Reason for Consultation anemia Requesting Provider: IMER VARGAS Date/Time of Note DATE: 04/01/19 TIME: 14:15 24 HR Interval Summary Free Text/Dictation no acute overnight events. Hg did drop 8.9. no active bleeding per nurse Exam/Review of Systems Exam Vitals Vital Signs Date Temp Pulse Resp B/P (MAP) Pulse Ox O2 O2 Flow FiO2 Time Delivery Rate 04/01/19 68 20 97 30 13:10 04/01/19 98.2 134/61 11:46 (85) 03/30/19 Mechanical 07:35 Ventilator Intake and Output 03/31/19 03/31/19 04/01/19 1515:00 23:00 07:00 IntakeIntake Total 1320 ml OutputOutput Total 1000 ml BalanceBalance 320 ml Constitutional: alert Psych: confusion Head: normocephalic Eyes: nl conjunctiva ENMT: nl external ears & nose Neck: supple Respiratory: clear to auscultation Cardiovascular: regular rate and rhythm Gastrointestinal: soft Musculoskeletal: nl extremities to inspection Extremities: normal pulses Results Result Diagram: 04/01/1951104/01/19511 Results 24hrs Laboratory Tests Test 04/01/19 05:12 White Blood Count 6.0 # Red Blood Count 2.87 L Hemoglobin 8.9 L Hematocrit 30.4 L Mean Corpuscular Volume 105.9 H Mean Corpuscular Hemoglobin 31.0 Mean Corpuscular Hemoglobin Concent 29.3 L Red Cell Distribution Width 18.1 H Platelet Count 229 # Mean Platelet Volume 9.0 Immature Granulocytes % 0.800 H Neutrophils % 63.2 Lymphocytes % 27.0 Monocytes % 5.2 Eosinophils % 3.3 Basophils % 0.5 Nucleated Red Blood Cells % 0.0 Immature Granulocytes # 0.050 H Neutrophils # 3.8 Lymphocytes # 1.6 Monocytes # 0.3 Eosinophils # 0.2 Basophils # 0.0 Nucleated Red Blood Cells # 0.0 Sodium Level 143 Potassium Level 4.6 Chloride Level 117 H Carbon Dioxide Level 21 Anion Gap 5 Blood Urea Nitrogen 16 Creatinine 0.79 Est Glomerular Filtrat Rate mL/min Glucose Level 98 Calcium Level 8.4 Medications Medication Current Medications Acetaminophen (Tylenol Liquid) 650 mg Q4H PRN GTB MILD PAIN 1-3; Start 03/17/19 at 21:30 Bisacodyl (Dulcolax Supp) 10 mg DAILY PRN ID CONSTIPATION; Start 03/17/19 at 21:00 Chlorhexidine Gluconate (Peridex) 15 ml Q12H MM Last administered on 04/01/19at 09:06; Admin Dose 15 ML; Start 03/17/19 at 21:00 Digoxin (Digoxin) 0.125 mg DAILY@13 PO Last administered on 03/31/19at 13:52; Admin Dose 0.125 MG; Start 03/18/19 at 13:00 Docusate Sodium (Colace) 100 mg DAILY PO Last administered on 04/01/19at 09:07; Admin Dose 100 MG; Start 03/18/19 at 09:00 Levetiracetam (Keppra Liquid) 250 mg Q12H GTB Last administered on 04/01/19at 0 9:07; Admin Dose 250 MG; Start 03/17/19 at 21:00 Magnesium Hydroxide (Milk Of Mag) 30 ml DAILY PRN GTB CONSTIPATION; Start 03/17/19 at 21:00 Lansoprazole (Prevacid) 30 mg DAILY@06 GTB Last administered on 04/01/19at 06:03; Admin Dose 30 MG; Start 03/18/19 at 06:00 Epoetin Amor-epbx (RETACRIT(non-esrd)) 40,000 unit We@1700 SC Last administered on 03/26/19at 17:30; Admin Dose 40,000 UNIT; Start 03/19/19 at 17:00 Multivit/Ca Carb/ B Cmplx/FA/Prenat (Renee-Antonio) 1 tab DAILY GTB Last administered on 04/01/19 09:07; Admin Dose 1 TAB; Start 03/21/19 at 09:00 Zinc Sulfate (Zinc Sulfate) 220 mg DAILY GTB Last administered on 04/01/19 09:07; Admin Dose 220 MG; Start 03/21/19 at 09:00 Collagenase (Santyl) 1 applic BID TOP Last administered on 04/01/19 09:07; Admin Dose 1 APPLIC; Start 03/20/19 at 16:28 Vancomycin HCl (Vanco Iv Per Pharmacy) VANCOMYCIN PER PHARMACY PER PROTOCOL XX ; Start 03/23/19 at 06:30 Piperacillin Sod/ Tazobactam Sod 100 ml @ 200 mls/hr Q6 IVPB Last administered on 04/01/19 13:03; Admin Dose 200 MLS/HR; Start 03/23/19 at 06:30 Acetylcysteine (Mucomyst) 2 ml Q6H RESP THERAPY NEB Last administered on 04/01/19 13:10; Admin Dose 2 ML; Start 03/24/19 at 11:00 Levalbuterol (Xopenex Hfa) 2 puff Q6H RESP THERAPY INH Last administered on 04/01/19 13:10; Admin Dose 2 PUFF; Start 03/24/19 at 14:00 Triamcinolone Acetonide (Kenalog 0.1% Cr) 1 applic BID TOP Last administered on 04/01/19 09:07; Admin Dose 1 APPLIC; Start 03/27/19 at 09:00 Vancomycin HCl 1.25 gm/Sodium Chloride 250 ml @ 83.333 mls/ hr Q48H IVPB Last administered on 03/31/19 06:59; Admin Dose 83.333 MLS/HR; Start 03/31/19 at 06:00 Sodium Phosphate (Neutra-Phos) 250 mg BID GTB Last administered on 04/01/19 09:08; Admin Dose 250 MG; Start 03/31/19 at 09:00 Metoprolol Tartrate (Lopressor) 25 mg Q8 GTB Last administered on 04/01/19 06:03; Admin Dose 25 MG; Start 03/31/19 at 14:00 Benazepril HCl (Lotensin) 10 mg BID PO Last administered on 04/01/19at 09:07; Admin Dose 10 MG; Start 03/31/19 at 21:00 IJEOMA GROSSMAN M.D. April 01, 2019 14:22
--- NOTE | 2019-04-01 14:39 | CONS ---
Consult Date/Type/Reason Admit Date/Time March 17, 2019 at 14:33 Initial Consult Date 03/18/19 Requesting Provider: IMER VARGAS Date/Time of Note DATE: 04/01/19 TIME: 14:37 Subjective NO acute e vents - pt comfortable - no CP - in good fluid status - con't resp RX ROS: No fever, no chills, no nausea, no vomiting, no diarrhea/constipation - per nurse - chronic SOB Objective Vitals Vital Signs Date Temp Pulse Resp B/P (MAP) Pulse Ox O2 O2 Flow FiO2 Time Delivery Rate 04/01/19 68 20 97 30 13:10 04/01/19 98.2 134/61 11:46 (85) 03/30/19 Mechanical 07:35 Ventilator Intake and Output 03/31/19 03/31/19 04/01/19 1515:00 23:00 07:00 IntakeIntake Total 1320 ml OutputOutput Total 1000 ml BalanceBalance 320 ml Exam General: WN/WD/NAD, AOx 0 HEENT: Unicetric/atraumatic/EOMI (does not follow commands) NECK: trach Lymph: no lymphadenopathy HEART: regular with no S3, II/ systolic murmur at apex LUNGS: Coarse sounds ABD: soft, NT, ND, +BS : Intact Neuro: non focal SKIN: chronic changes EXT: trace edema Results/Medications Result Diagram: 04/01/1951104/01/1912 Results 24 hrs Laboratory Tests Test 04/01/19 05:12 White Blood Count 6.0 # Red Blood Count 2.87 L Hemoglobin 8.9 L Hematocrit 30.4 L Mean Corpuscular Volume 105.9 H Mean Corpuscular Hemoglobin 31.0 Mean Corpuscular Hemoglobin Concent 29.3 L Red Cell Distribution Width 18.1 H Platelet Count 229 # Mean Platelet Volume 9.0 Immature Granulocytes % 0.800 H Neutrophils % 63.2 Lymphocytes % 27.0 Monocytes % 5.2 Eosinophils % 3.3 Basophils % 0.5 Nucleated Red Blood Cells % 0.0 Immature Granulocytes # 0.050 H Neutrophils # 3.8 Lymphocytes # 1.6 Monocytes # 0.3 Eosinophils # 0.2 Basophils # 0.0 Nucleated Red Blood Cells # 0.0 Sodium Level 143 Potassium Level 4.6 Chloride Level 117 H Carbon Dioxide Level 21 Anion Gap 5 Blood Urea Nitrogen 16 Creatinine 0.79 Est Glomerular Filtrat Rate mL/min Glucose Level 98 Calcium Level 8.4 Home Meds Reported Medications Levalbuterol Hcl* (Xopenex*) 1.25 Mg/0.5 Ml Vial.neb, 1.25 MG INHALATION Q6H for WHEEZING AND SOB, EA 03/17/19 Levalbuterol Hcl* (Levalbuterol Hcl*) 1.25 Mg/0.5 Ml Vial.neb, 1.25 MG INHAL ATION Q3H, VIAL 03/17/19 Ascorbic Acid (Vitamin C) 500 Mg Tab, 500 MG GTB DAILY, TAB 03/17/19 Cran/Vitc/Mannose/Inulin/Brom (Uti-Stat Liquid) 3,875 Mg/30 Ml Liquid, 30 ML GTB BID 03/17/19 Acetaminophen* (Acetaminophen*) 500 MG Extra Strength Tablet, 1000 MG PO Q4H PRN for NEEDED, TAB UNTIL 04/16/19 03/17/19 Acetaminophen* (Tylenol*) 325 Mg Tablet, 650 MG GTB BID PRN for PAIN MGT, TAB 03/17/19 Acetaminophen* (Tylenol*) 325 Mg Tablet, 650 MG GTB Q4H PRN for MILD PAIN LEVEL 1-3, TAB AND FEVER 101F, END DATE 04/16/19 03/17/19 Acetaminophen* (Tylenol*) 325 Mg Tablet, 650 MG GTB NEEDED PRN for TRACH TUBE CHANGE, TAB 03/17/19 Epoetin Amor (Procrit) 4,000 Unit/1 Ml Vial, 4000 UNIT IJ Q WED, VIAL 03/17/19 Amino Acids/Protein Hydrolys (PRO-STAT LIQUID) 30 Ml Liquid.pkt, 30 ML GTB DAILY 03/17/19 Multivitamins* (Theragran*) 1 Tab Tab, 1 TAB GTB DAILY, TAB 03/17/19 Magnesium Hydroxide* (Milk Of Magnesia*) 400 Mg/5 Ml Oral.susp, 30 ML GTB NEEDED, ML END DATE 04/16/19 03/17/19 Metoprolol Tartrate* (Lopressor*) 25 Mg Tab, 25 MG GTB BID, #60 TAB HOLD IF SBP<110 OR HR<60 03/17/19 Levetiracetam* (Levetiracetam*) 500 Mg/5 Ml Solution, 2.5 ML PO Q12H, ML 03/17/19 Mineral Oil* (Fleet* Mineral Oil Enema) Unknown Strength Oil, 1 APPLIC OK NEEDED PRN for CONSTIPATION, ENEMA 03/17/19 Bisacodyl (Dulcolax) 10 Mg Supp.rect, 10 MG RC NEEDED, SUPP.RECT UNTIL 04/16/19 03/17/19 Digoxin* (Digox*) 125 Mcg Tablet, 0.125 MG GTB DAILY PRN for HOLD IF HR<60, TAB 03/17/19 Docusate Sodium* (Colace*) 100 Mg Capsule, 100 MG GTB DAILY, #30 CAP 03/17/19 Chlorhexidine Gluconate (Peridex) 473 Ml Mouthwash, 15 ML MM Q12H, BOTTLE 03/17/19 Medications Current Medications Acetaminophen (Tylenol Liquid) 650 mg Q4H PRN GTB MILD PAIN 1-3; Start 03/17/19 at 21:30 Bisacodyl (Dulcolax Supp) 10 mg DAILY PRN [place] CONSTIPATION; Start 03/17/19 at 21:00 Chlorhexidine Gluconate (Peridex) 15 ml Q12H MM Last administered on 04/01/19at 09:06; Admin Dose 15 ML; Start 03/17/19 at 21:00 Digoxin (Digoxin) 0.125 mg DAILY@13 PO Last administered on 03/31/19at 13:52; Admin Dose 0.125 MG; Start 03/18/19 at 13:00 Docusate Sodium (Colace) 100 mg DAILY PO Last administered on 04/01/19at 09:07; Admin Dose 100 MG; Start 03/18/19 at 09:00 Levetiracetam (Keppra Liquid) 250 mg Q12H GTB Last administered on 04/01/19at 09:07; Admin Dose 250 MG; Start 03/17/19 at 21:00 Magnesium Hydroxide (Milk Of Mag) 30 ml DAILY PRN GTB CONSTIPATION; Start 03/17/19 at 21:00 Lansoprazole (Prevacid) 30 mg DAILY@06 GTB Last administered on 04/01/19at 06:03; Admin Dose 30 MG; Start 03/18/19 at 06:00 Epoetin Amor-epbx (RETACRIT(non-esrd)) 40,000 unit We@1700 SC Last administered on 03/26/19 17:30; Admin Dose 40,000 UNIT; Start 03/19/19 at 17:00 Multivit/Ca Carb/ B Cmplx/FA/Prenat (Renee-Antonio) 1 tab DAILY GTB Last administered on 04/01/19 09:07; Admin Dose 1 TAB; Start 03/21/19 at 09:00 Zinc Sulfate (Zinc Sulfate) 220 mg DAILY GTB Last administered on 04/01/19 09:07; Admin Dose 220 MG; Start 03/21/19 at 09:00 Collagenase (Santyl) 1 applic BID TOP Last administered on 04/01/19 09:07; Admin Dose 1 APPLIC; Start 03/20/19 at 16:28 Vancomycin HCl (Vanco Iv Per Pharmacy) VANCOMYCIN PER PHARMACY PER PROTOCOL XX ; Start 03/23/19 at 06:30 Piperacillin Sod/ Tazobactam Sod 100 ml @ 200 mls/hr Q6 IVPB Last administered on 04/01/19 13:03; Admin Dose 200 MLS/HR; Start 03/23/19 at 06:30 Acetylcysteine (Mucomyst) 2 ml Q6H RESP THERAPY NEB Last administered on 13:10; Admin Dose 2 ML; Start 03/24/19 at 11:00 Levalbuterol (Xopenex Hfa) 2 puff Q6H RESP THERAPY INH Last administered on 04/01/19 13:10; Admin Dose 2 PUFF; Start 03/24/19 at 14:00 Triamcinolone Acetonide (Kenalog 0.1% Cr) 1 applic BID TOP Last administered on 04/01/19 09:07; Admin Dose 1 APPLIC; Start 03/27/19 at 09:00 Vancomycin HCl 1.25 gm/Sodium Chloride 250 ml @ 83.333 mls/ hr Q48H IVPB Last administered on 03/31/19 06:59; Admin Dose 83.333 MLS/HR; Start 03/31/19 at 06:00 Sodium Phosphate (Neutra-Phos) 250 mg BID GTB Last administered on 04/01/19 09:08; Admin Dose 250 MG; Start 03/31/19 at 09:00 Metoprolol Tartrate (Lopressor) 25 mg Q8 GTB Last administered on 04/01/19at 06:03; Admin Dose 25 MG; Start 03/31/19 at 14:00 Benazepril HCl (Lotensin) 10 mg BID PO Last administered on 04/01/19at 09:07; Admin Dose 10 MG; Start 03/31/19 at 21:00 Assessment/Plan Hospital Course (Demo Recall) 1. Premature ventricular contractions. Premature ventricular contractions are not confirmed based on my interpretation on telemetry strip. We will monitor clinically now. No new arrhythmia now. NO focal ectopy on tele. Better now - will follow clinically. NO new focal ectopy on tele now. Sinus, rate controlled. No focal ectopy on tele. 2. Supraventricular tachycardia, possibly atrial tachycardia versus a short run of atrial tachycardia. No particular treatment is required. Continue to treat the patient with a beta-jude now. She is also on digoxin which is reasonable. Stable now. 3. Hypertension. Blood pressure is well optimized now, which was actually in the low side. I think it is reasonable to hydrate as needed. BP stable. Stable overall. BP well maintained. In good range now. Treated. 4. Respiratory failure. Continue respiratory therapy. The patient is on the ventilator. 5. Chronic malnourished state. Continue feedings per PEG. At goal. Stable. 6. Anemia. Hemoglobin is fairly stable now. No evidence of bleeding. We will monitor clinically. H/H stable now. NO bleeding. Hg 8.9 now. Unchanged. KINGSTON HEARD MD April 01, 2019 14:39
--- NOTE | 2019-04-01 14:50 | CONS ---
Assessment/Plan Assessment/Plan Hospital Course (Demo Recall) No aute events overnight patient is noncommunicative in no distress afebrile WBC today 6 platelets 229 neutrophils 63.2 BUN 16 creatinine 0.79cute changes overnight patient is noncommunicative in no distress no fevers Indwelling: Trach, PEG, Damon Antimicrobials: Vancomycin, Zosyn Physical examination: Chronically ill-appearing elderly woman in no distress. Head atraumatic normocephalic neck is supple tracheostomy present chest rise symmetrical breath sounds diminished bases. Heart: S1-S2. Abdomen soft bowel sounds present. Assessment: 1. Sigmoid diverticulosis with abscess 2. Left lower lobe atelectasis ? PNA 3. Chronic respiratory failure and dysphagia 4. Seizure disorder 5. Acute on chronic encephalopathy 6. Chronic kidney disease 7. Urinary tract infection as per urinalysis Plan: Clinically unchanged, surgical rec-s noted, no aggressive measures per family, continue antibiotics, consider repeat CT of the abdomen Consultation Date/Type/Reason Admit Date/Time March 17, 2019 at 14:33 Initial Consult Date 03/18/19 Type of Consult id Requesting Provider: IMER VARGAS Date/Time of Note DATE: 04/01/19 TIME: 14:50 Exam/Review of Systems Exam Vitals Vital Signs Date Temp Pulse Resp B/P (MAP) Pulse Ox O2 O2 Flow FiO2 Time Delivery Rate 04/01/19 68 20 97 30 13:10 04/01/19 98.2 134/61 11:46 (85) 03/30/19 Mechanical 07:35 Ventilator Intake and Output 03/31/19 03/31/19 04/01/19 1515:00 23:00 07:00 IntakeIntake Total 1320 ml OutputOutput Total 1000 ml BalanceBalance 320 ml Results Result Diagram: 04/01/1951104/01/19 0512 Results 24hrs Laboratory Tests Test 04/01/19 05:12 White Blood Count 6.0 # Red Blood Count 2.87 L Hemoglobin 8.9 L Hematocrit 30.4 L Mean Corpuscular Volume 105.9 H Mean Corpuscular Hemoglobin 31.0 Mean Corpuscular Hemoglobin Concent 29.3 L Red Cell Distribution Width 18.1 H Platelet Count 229 # Mean Platelet Volume 9.0 Immature Granulocytes % 0.800 H Neutrophils % 63.2 Lymphocytes % 27.0 Monocytes % 5.2 Eosinophils % 3.3 Basophils % 0.5 Nucleated Red Blood Cells % 0.0 Immature Granulocytes # 0.050 H Neutrophils # 3.8 Lymphocytes # 1.6 Monocytes # 0.3 Eosinophils # 0.2 Basophils # 0.0 Nucleated Red Blood Cells # 0.0 Sodium Level 143 Potassium Level 4.6 Chloride Level 117 H Carbon Dioxide Level 21 Anion Gap 5 Blood Urea Nitrogen 16 Creatinine 0.79 Est Glomerular Filtrat Rate mL/min Glucose Level 98 Calcium Level 8.4 Medications Medication Current Medications Acetaminophen (Tylenol Liquid) 650 mg Q4H PRN GTB MILD PAIN 1-3; Start 03/17/19 at 21:30 Bisacodyl (Dulcolax Supp) 10 mg DAILY PRN [place] CONSTIPATION; Start 03/17/19 at 21:00 Chlorhexidine Gluconate (Peridex) 15 ml Q12H MM Last administered on 04/01/19 09:06; Admin Dose 15 ML; Start 03/17/19 at 21:00 Digoxin (Digoxin) 0.125 mg DAILY@13 PO Last administered on 03/31/19 13:52; Admin Dose 0.125 MG; Start 03/18/19 at 13:00 Docusate Sodium (Colace) 100 mg DAILY PO Last administered on 04/01/19 09:07; Admin Dose 100 MG; Start 03/18/19 at 09:00 Levetiracetam (Keppra Liquid) 250 mg Q12H GTB Last administered on 04/01/19 09:07; Admin Dose 250 MG; Start 03/17/19 at 21:00 Magnesium Hydroxide (Milk Of Mag) 30 ml DAILY PRN GTB CONSTIPATION; Start 03/17/19 at 21:00 Lansoprazole (Prevacid) 30 mg DAILY@06 GTB Last administered on 04/01/19 06:03; Admin Dose 30 MG; Start 03/18/19 at 06:00 Epoetin Amor-epbx (RETACRIT(non-esrd)) 40,000 unit We@1700 SC Last administered on 03/26/19 17:30; Admin Dose 40,000 UNIT; Start 03/19/19 at 17:00 Multivit/Ca Carb/ B Cmplx/FA/Prenat (Renee-Antonio) 1 tab DAILY GTB Last administered on 04/01/19 09:07; Admin Dose 1 TAB; Start 03/21/19 at 09:00 Zinc Sulfate (Zinc Sulfate) 220 mg DAILY GTB Last administered on 04/01/19 09:07; Admin Dose 220 MG; Start 03/21/19 at 09:00 Collagenase (Santyl) 1 applic BID TOP Last administered on 04/01/19 09:07; Admin Dose 1 APPLIC; Start 03/20/19 at 16:28 Vancomycin HCl (Vanco Iv Per Pharmacy) VANCOMYCIN PER PHARMACY PER PROTOCOL XX ; Start 03/23/19 at 06:30 Piperacillin Sod/ Tazobactam Sod 100 ml @ 200 mls/hr Q6 IVPB Last administered on 04/01/19 13:03; Admin Dose 200 MLS/HR; Start 03/23/19 at 06:30 Acetylcysteine (Mucomyst) 2 ml Q6H RESP THERAPY NEB Last administered on 04/01/19 13:10; Admin Dose 2 ML; Start 03/24/19 at 11:00 Levalbuterol (Xopenex Hfa) 2 puff Q6H RESP THERAPY INH Last administered on 04/01/19 13:10; Admin Dose 2 PUFF; Start 03/24/19 at 14:00 Triamcinolone Acetonide (Kenalog 0.1% Cr) 1 applic BID TOP Last administered on 04/01/19 09:07; Admin Dose 1 APPLIC; Start 03/27/19 at 09:00 Vancomycin HCl 1.25 gm/Sodium Chloride 250 ml @ 83.333 mls/ hr Q48H IVPB Last administered on 03/31/19 06:59; Admin Dose 83.333 MLS/HR; Start 03/31/19 at 06:00 Sodium Phosphate (Neutra-Phos) 250 mg BID GTB Last administered on 04/01/19 09:08; Admin Dose 250 MG; Start 03/31/19 at 09:00 Metoprolol Tartrate (Lopressor) 25 mg Q8 GTB Last administered on 04/01/19 06:03; Admin Dose 25 MG; Start 03/31/19 at 14:00 Benazepril HCl (Lotensin) 10 mg BID PO Last administered on 04/01/19 09:07; Admin Dose 10 MG; Start 03/31/19 at 21:00 DEBO UMANA NP April 01, 2019 14:50
--- NOTE | 2019-04-01 18:07 | PN ---
Date/Time of Note Date/Time of Note DATE: 04/01/19 TIME: 18:04 Assessment/Plan VTE Prophylaxis Risk score (from Ns)>0 risk: 6 SCD applied (from Ns): Yes Pharmacological prophylaxis: NA/contraindicated Pharm contraindication: anticoag not tolerated Lines/Catheters IV [facility] Saline Lock Urinary Cath still in place: Yes Reason Cath still needed: urinary retention Assessment/Plan Hospital Course Patient remains hemodynamically stable, tolerates G-tube feeding well, DC planning Assessment/Plan -Diverticular abscess, Dr Mario is following in surgical consultation. Abscess is too small for drainage by IR. Family did not want any surgical intervention. Plan to repeat CT in 2 weeks. Continue antibiotics. Per ID patient is currently on Vanco and Zosyn. Dr. Melendez is following in infection disease consultation. -Severe diverticulosis with spasm per colonoscopy. Dr. Galdamez is following in gastroenterology consultation. -Anemia. Stool for OB neg. Continue Epogen and Iron supplementation. Dr. Kiser is following in hematology consultation -Ventilator dependent respiratory failure with tracheostomy. Dr. Davenport is following in pulmonology consultation. -Acute on chronic kidney disease. Monitor BUN and creatinine. Dr. Grant is following in nephrology consultation -Atrial fibrillation, continue metoprolol -Diastolic congestive heart failure. Dr. Hernandez is following in cardiology consultation. -Pulmonary fibrosis, continue Pulmicort. -Dysphagia with G-tube. -Chronic encephalopathy -COPD -History of CVA, continue aspirin. -Seizure disorder/status epilepticus. Continue Keppra and Ativan as needed. -MRSA nares colonization Further recommendations based on clinical course. Plan of care discussed with Dr. Phillips. Result Diagram: 04/01/19 0512 04/01/19 0512 Results 24hrs Laboratory Tests Test 04/01/19 05:12 White Blood Count 6.0 # Red Blood Count 2.87 L Hemoglobin 8.9 L Hematocrit 30.4 L Mean Corpuscular Volume 105.9 H Mean Corpuscular Hemoglobin 31.0 Mean Corpuscular Hemoglobin Concent 29.3 L Red Cell Distribution Width 18.1 H Platelet Count 229 # Mean Platelet Volume 9.0 Immature Granulocytes % 0.800 H Neutrophils % 63.2 Lymphocytes % 27.0 Monocytes % 5.2 Eosinophils % 3.3 Basophils % 0.5 Nucleated Red Blood Cells % 0.0 Immature Granulocytes # 0.050 H Neutrophils # 3.8 Lymphocytes # 1.6 Monocytes # 0.3 Eosinophils # 0.2 Basophils # 0.0 Nucleated Red Blood Cells # 0.0 Sodium Level 143 Potassium Level 4.6 Chloride Level 117 H Carbon Dioxide Level 21 Anion Gap 5 Blood Urea Nitrogen 16 Creatinine 0.79 Est Glomerular Filtrat Rate mL/min Glucose Level 98 Calcium Level 8.4 Exam/Review of Systems Exam Vitals Vital Signs Date Temp Pulse Resp B/P (MAP) Pulse Ox O2 O2 Flow FiO2 Time Delivery Rate 04/01/19 69 20 97 30 17:47 04/01/19 99.0 144/63 15:47 (90) 03/30/19 Mechanical 07:35 Ventilator Intake and Output 03/31/19 03/31/19 04/01/19 1515:00 23:00 07:00 IntakeIntake Total 1320 ml OutputOutput Total 1000 ml BalanceBalance 320 ml Exam Constitutional: frail Neck: other (trach) Respiratory: diminished breath sounds Cardiovascular: regular rate and rhythm Gastrointestinal: soft, non-tender, other (G-tube) Extremities: normal pulses Neurological: lethargic Results Results 24hrs Laboratory Tests Test 04/01/19 05:12 White Blood Count 6.0 # Red Blood Count 2.87 L Hemoglobin 8.9 L Hematocrit 30.4 L Mean Corpuscular Volume 105.9 H Mean Corpuscular Hemoglobin 31.0 Mean Corpuscular Hemoglobin Concent 29.3 L Red Cell Distribution Width 18.1 H Platelet Count 229 # Mean Platelet Volume 9.0 Immature Granulocytes % 0.800 H Neutrophils % 63.2 Lymphocytes % 27.0 Monocytes % 5.2 Eosinophils % 3.3 Basophils % 0.5 Nucleated Red Blood Cells % 0.0 Immature Granulocytes # 0.050 H Neutrophils # 3.8 Lymphocytes # 1.6 Monocytes # 0.3 Eosinophils # 0.2 Basophils # 0.0 Nucleated Red Blood Cells # 0.0 Sodium Level 143 Potassium Level 4.6 Chloride Level 117 H Carbon Dioxide Level 21 Anion Gap 5 Blood Urea Nitrogen 16 Creatinine 0.79 Est Glomerular Filtrat Rate mL/min Glucose Level 98 Calcium Level 8.4 Medications Medication Current Medications Acetaminophen (Tylenol Liquid) 650 mg Q4H PRN GTB MILD PAIN 1-3; Start 03/17/19 at 21:30 Bisacodyl (Dulcolax Supp) 10 mg DAILY PRN [place] CONSTIPATION; Start 03/17/19 at 21:00 Chlorhexidine Gluconate (Peridex) 15 ml Q12H MM Last administered on 04/01/19 09:06; Admin Dose 15 ML; Start 03/17/19 at 21:00 Digoxin (Digoxin) 0.125 mg DAILY@13 PO Last administered on 03/31/19 13:52; Admin Dose 0.125 MG; Start 03/18/19 at 13:00 Docusate Sodium (Colace) 100 mg DAILY PO Last administered on 04/01/19 09:07; Admin Dose 100 MG; Start 03/18/19 at 09:00 Levetiracetam (Keppra Liquid) 250 mg Q12H GTB Last administered on 04/01/19 09:07; Admin Dose 250 MG; Start 03/17/19 at 21:00 Magnesium Hydroxide (Milk Of Mag) 30 ml DAILY PRN GTB CONSTIPATION; Start 03/17/19 at 21:00 Lansoprazole (Prevacid) 30 mg DAILY@06 GTB Last administered on 04/01/19at 06:03; Admin Dose 30 MG; Start 03/18/19 at 06:00 Epoetin Amor-epbx (RETACRIT(non-esrd)) 40,000 unit We@1700 SC Last administered on 03/26/19at 17:30; Admin Dose 40,000 UNIT; Start 03/19/19 at 17:00 Multivit/Ca Carb/ B Cmplx/FA/Prenat (Renee-Antonio) 1 tab DAILY GTB Last administered on 04/01/19 09:07; Admin Dose 1 TAB; Start 03/21/19 at 09:00 Zinc Sulfate (Zinc Sulfate) 220 mg DAILY GTB Last administered on 04/01/19 09:07; Admin Dose 220 MG; Start 03/21/19 at 09:00 Collagenase (Santyl) 1 applic BID TOP Last administered on 04/01/19 09:07; Admin Dose 1 APPLIC; Start 03/20/19 at 16:28 Vancomycin HCl (Vanco Iv Per Pharmacy) VANCOMYCIN PER PHARMACY PER PROTOCOL XX ; Start 03/23/19 at 06:30 Piperacillin Sod/ Tazobactam Sod 100 ml @ 200 mls/hr Q6 IVPB Last administered on 04/01/19 17:30; Admin Dose 200 MLS/HR; Start 03/23/19 at 06:30 Acetylcysteine (Mucomyst) 2 ml Q6H RESP THERAPY NEB Last administered on 04/01/19 13:10; Admin Dose 2 ML; Start 03/24/19 at 11:00 Levalbuterol (Xopenex Hfa) 2 puff Q6H RESP THERAPY INH Last administered on 04/01/19 13:10; Admin Dose 2 PUFF; Start 03/24/19 at 14:00 Triamcinolone Acetonide (Kenalog 0.1% Cr) 1 applic BID TOP Last administered on 04/01/19 09:07; Admin Dose 1 APPLIC; Start 03/27/19 at 09:00 Vancomycin HCl 1.25 gm/Sodium Chloride 250 ml @ 83.333 mls/ hr Q48H IVPB Last administered on 03/31/19 06:59; Admin Dose 83.333 MLS/HR; Start 03/31/19 at 06:00 Sodium Phosphate (Neutra-Phos) 250 mg BID GTB Last administered on 04/01/19 09:08; Admin Dose 250 MG; Start 03/31/19 at 09:00 Metoprolol Tartrate (Lopressor) 25 mg Q8 GTB Last administered on 04/01/19 15:28; Admin Dose 25 MG; Start 03/31/19 at 14:00 Benazepril HCl (Lotensin) 10 mg BID PO Last administered on 04/01/19 09:07; Admin Dose 10 MG; Start 03/31/19 at 21:00 IMER VARGAS April 01, 2019 18:06
[2019-04-02] VITALS (24 sets, daily range): BP systolic 139–162; BP diastolic 65–84; PULSE 54–68; RESP 16–25
[2019-04-02] MEDS: PIPER-TAZO 3.375 GM IV (PMX) 100 ML IVPB SCH ×5 (00:40→23:26)
[2019-04-02] MEDS: LEVALBUTEROL (HFA) 15 GM INHALER INH SCH ×4 (01:31→21:27)
[2019-04-02] MEDS: ACETYLCYSTEINE 20% 4 ML VIAL NEB SCH ×4 (01:31→21:30)
[2019-04-02] MEDS: METOPROLOL 25 MG TAB GTB SCH ×3 (05:38→22:00)
[2019-04-02] MEDS: LANSOPRAZOLE 30 MG CAP GTB SCH (05:38)
[2019-04-02] MEDS: VANCOMYCIN HCL 1.25 GM in SOD CHLORIDE 0.9% 250 ML IVPB SCH (06:27)
--- NOTE | 2019-04-02 08:50 | PN ---
DATE: 04/02/2019 SUBJECTIVE: The patient is stable. No events overnight. OBJECTIVE: VITAL SIGNS: Blood pressure is 144/66, pulse 64, respirations 16, temperature 99.4. HEENT: Head is normocephalic. NECK: Supple. HEART: Regular rate. LUNGS: Show diminished breath sounds at the base. ABDOMEN: Soft, nontender to palpation without rebound or guarding. EXTREMITIES: Negative for clubbing, cyanosis, no edema. DERMATOLOGIC: No rashes. MUSCULOSKELETAL: No joint effusion. NEUROLOGIC: No change in exam. MEDICATIONS: Reviewed. LABORATORY DATA: Reviewed. ASSESSMENT AND PLAN: 1. Chronic kidney disease, stage III. Renal function is stable. Continue current treatment plan, s upportive care and renally dose all medications. 2. Hypokalemia and hypomagnesemia, improved. Continue to monitor. 3. Mineral bone disorder. Continue to monitor calcium and phosphorus levels. 4. Anemia. Continue to monitor hemoglobin and hematocrit levels. 5. Hypertension. Continue current blood pressure regimen. 6. Ventilator-dependent respiratory failure. Vent settings have been reviewed. 7. Intraabdominal abscess. Continue antibiotic therapy. 8. Dysphagia. Continue tube feeding. 9. Chronic encephalopathy. No change. 10. Seizure disorder. Continue medical management. Dictated By: RAJINDER ATWOOD DO NR/NTS Conf#: [id number] DID#: [id number] CC: MENDEL FIELDS MD; JAYLEN LUGO MD;*End*
[2019-04-02] MEDS: COLLAGENASE 5 GM (UD JAR) TOP SCH ×2 (09:41→21:45)
[2019-04-02] MEDS: MULTIVIT/CA CARB/B CMPLX/FA TAB GTB SCH (09:41)
[2019-04-02] MEDS: CHLORHEXIDINE GLUCONATE 15 ML UD CUP MM SCH ×2 (09:41→21:45)
[2019-04-02] MEDS: LEVETIRACETAM (100 MG/ML) 5ML CUP GTB SCH ×2 (09:41→21:45)
[2019-04-02] MEDS: DOCUSATE SODIUM 100 MG CAP PO SCH (09:42)
[2019-04-02] MEDS: ZINC SULFATE 220 MG CAP GTB SCH (09:42)
[2019-04-02] MEDS: NEUTRA-PHOS 250 MG PACKET GTB SCH ×2 (09:42→21:45)
[2019-04-02] MEDS: BENAZEPRIL 10 MG TAB PO SCH ×2 (09:42→21:46)
[2019-04-02] MEDS: TRIAMCINOLONE ACET 0.1% 15 GM CR TOP SCH ×2 (09:43→21:52)
--- NOTE | 2019-04-02 10:46 | CONS ---
Assessment/Plan Assessment/Plan Hospital Course (Demo Recall) 73 yo with #Anemia -Hg dropped to 8.9 -pt is noted to have a macrocytic anemia which is mostly likely 2/2 underlying myelodysplastic syndrome -continue epogen 40,000 units weekly -iron panel reveals mild iron deficiency. s/p ferrilict -vitamin b12 and folate levels are ok -past workup for anemia reveals a negative SPEP and no signs of hemolysis. will however recheck LDH, haptoglobin and retic -f/u colonoscopy results # fluid collection -measuring 3.1 x 3.2 x 8.5 cm extending along the left iliopsoas/iliacus muscles. This could represent peridiverticular abscess/contained perforation. -not drainable per IR -pt is currently on vancomycin and zosyn Consultation Date/Type/Reason Admit Date/Time March 17, 2019 at 14:33 Initial Consult Date 03/18/19 Type of Consult hematology Reason for Consultation MDS/ anemia Requesting Provider: IMER VARGAS Date/Time of Note DATE: 04/02/19 TIME: 10:44 24 HR Interval Summary Free Text/Dictation no acute overnight events Exam/Review of Systems Exam Vitals Vital Signs Date Temp Pulse Resp B/P (MAP) Pulse Ox O2 O2 Flow FiO2 Time Delivery Rate 04/02/19 64 22 100 30 09:15 04/02/19 99.4 144/66 08:09 (92) 04/02/19 Mechanical 04:38 Ventilator Intake and Output 04/01/19 04/01/19 04/02/19 1515:00 23:00 07:00 IntakeIntake Total 1120 ml OutputOutput Total 800 ml 650 ml BalanceBalance -800 ml 470 ml Constitutional: alert, frail Psych: confusion Head: normocephalic Eyes: nl conjunctiva ENMT: nl external ears & nose Neck: supple, other (trach in place) Respiratory: clear to auscultation Cardiovascular: regular rate and rhythm Gastrointestinal: soft Musculoskeletal: nl extremities to inspection Results Result Diagram: 04/01/1951104/01/19511 Medications Medication Current Medications Acetaminophen (Tylenol Liquid) 650 mg Q4H PRN GTB MILD PAIN 1-3; Start 03/17/19 at 21:30 Bisacodyl (Dulcolax Supp) 10 mg DAILY PRN [place] CONSTIPATION; Start 03/17/19 at 21:00 Chlorhexidine Gluconate (Peridex) 15 ml Q12H MM Last administered on 04/02/19 09:41; Admin Dose 15 ML; Start 03/17/19 at 21:00 Digoxin (Digoxin) 0.125 mg DAILY@13 PO Last administered on 03/31/19 13:52; Admin Dose 0.125 MG; Start 03/18/19 at 13:00 Docusate Sodium (Colace) 100 mg DAILY PO Last administered on 04/02/19 09:42; Admin Dose 100 MG; Start 03/18/19 at 09:00 Levetiracetam (Keppra Liquid) 250 mg Q12H GTB Last administered on 04/02/19 09:41; Admin Dose 250 MG; Start 03/17/19 at 21:00 Magnesium Hydroxide (Milk Of Mag) 30 ml DAILY PRN GTB CONSTIPATION; Start 03/17/19 at 21:00 Lansoprazole (Prevacid) 30 mg DAILY@06 GTB Last administered on 04/02/19 05:38; Admin Dose 30 MG; Start 03/18/19 at 06:00 Epoetin Amor-epbx (RETACRIT(non-esrd)) 40,000 unit We@1700 SC Last administered on 03/26/19 17:30; Admin Dose 40,000 UNIT; Start 03/19/19 at 17:00 Multivit/Ca Carb/ B Cmplx/FA/Prenat (Renee-Antonio) 1 tab DAILY GTB Last administered on 04/02/19 09:41; Admin Dose 1 TAB; Start 03/21/19 at 09:00 Zinc Sulfate (Zinc Sulfate) 220 mg DAILY GTB Last administered on 04/02/19 09:42; Admin Dose 220 MG; Start 03/21/19 at 09:00 Collagenase (Santyl) 1 applic BID TOP Last administered on 04/02/19 09:41; Admin Dose 1 APPLIC; Start 03/20/19 at 16:28 Vancomycin HCl (Vanco Iv Per Pharmacy) VANCOMYCIN PER PHARMACY PER PROTOCOL XX ; Start 03/23/19 at 06:30 Piperacillin Sod/ Tazobactam Sod 100 ml @ 200 mls/hr Q6 IVPB Last administered on 04/02/19 05:38; Admin Dose 200 MLS/HR; Start 03/23/19 at 06:30 Acetylcysteine (Mucomyst) 2 ml Q6H RESP THERAPY NEB Last administered on 04/02/19 07:53; Admin Dose 2 ML; Start 03/24/19 at 11:00 Levalbuterol (Xopenex Hfa) 2 puff Q6H RESP THERAPY INH Last administered on 04/02/19 07:53; Admin Dose 2 PUFF; Start 03/24/19 at 14:00 Triamcinolone Acetonide (Kenalog 0.1% Cr) 1 applic BID TOP Last administered on 04/02/19 09:43; Admin Dose 1 APPLIC; Start 03/27/19 at 09:00 Vancomycin HCl 1.25 gm/Sodium Chloride 250 ml @ 83.333 mls/ hr Q48H IVPB Last administered on 04/02/19 06:27; Admin Dose 83.333 MLS/HR; Start 03/31/19 at 06:00 Sodium Phosphate (Neutra-Phos) 250 mg BID GTB Last administered on 04/02/19 09:42; Admin Dose 250 MG; Start 03/31/19 at 09:00 Metoprolol Tartrate (Lopressor) 25 mg Q8 GTB Last administered on 04/02/19 05:38; Admin Dose 25 MG; Start 03/31/19 at 14:00 Benazepril HCl (Lotensin) 10 mg BID PO Last administered on 04/02/19 09:42; Admin Dose 10 MG; Start 03/31/19 at 21:00 IJEOMA GROSSMAN M.D. April 02, 2019 10:46
--- NOTE | 2019-04-02 11:30 | CONS ---
Assessment/Plan Assessment/Plan Hospital Course (Demo Recall) IMP: 1.PVC-ongoing. EF 65% by echo 10/29. neg trop x 3 2.Bradycardia-to 50's 3.HTN-elevated 4.REsp failure-chronic s/p trach 5.SVT-short run. Again recurrent short run at approx 150-160 ? PAFL/AT 03/31. NO recurrence since increase to BB 6.anemia Recc: -Tele -Continue current BB -Continue curent ACEI dose -Continue abx's and f/u cx data -Continue digoxin -Continue mucomyst and bronchodilators Consultation Date/Type/Reason Admit Date/Time March 17, 2019 at 14:33 Initial Consult Date 03/18/19 Type of Consult Cardiology Reason for Consultation SVT Requesting Provider: IMER VARGAS Date/Time of Note DATE: 04/02/19 TIME: 11:27 Exam/Review of Systems Vital Signs Vitals Vital Signs Date Temp Pulse Resp B/P (MAP) Pulse Ox O2 O2 Flow FiO2 Time Delivery Rate 04/02/19 98.0 64 16 139/65 100 11:20 (89) 04/02/19 30 11:11 04/02/19 Mechanical 04:38 Ventilator Intake and Output 04/01/19 04/01/19 04/02/19 1515:00 23:00 07:00 IntakeIntake Total 1120 ml OutputOutput Total 800 ml 650 ml BalanceBalance -800 ml 470 ml Exam Exam Review of Systems: CONSTITUTIONAL: No fevers, chills. PULMONARY: No sob CARDIOVASCULAR: No chest pain/palpitations GASTROINTESTINAL: No nausea/vomiting. GENITOURINARY: No hematuria/dysuria. MUSCULOSKELETAL: No myagias/arthalgias. PSYCHIATRIC: The patient denies depression. NEUROLOGIC: lethargic somewhat Constitutional: alert Psych: no complaints Head: normocephalic ENMT: mucosa pink and moist Neck: supple, jvd (9 cm water), other (trached) Respiratory: diminished breath sounds (at bases/B) Cardiovascular: regular rate and rhythm Gastrointestinal: soft, non-tender Musculoskeletal: muscle weakness (mild generalized) Extremities: edema (none) Neurological: lethargic Labs Result Diagram: 04/01/1951104/01/19511 Medications Medications Current Medications Acetaminophen (Tylenol Liquid) 650 mg Q4H PRN GTB MILD PAIN 1-3; Start 03/17/19 at 21:30 Bisacodyl (Dulcolax Supp) 10 mg DAILY PRN [place] CONSTIPATION; Start 03/17/19 at 21:00 Chlorhexidine Gluconate (Peridex) 15 ml Q12H MM Last administered on 04/02/19 09:41; Admin Dose 15 ML; Start 03/17/19 at 21:00 Digoxin (Digoxin) 0.125 mg DAILY@13 PO Last administered on 03/31/19 13:52; Admin Dose 0.125 MG; Start 03/18/19 at 13:00 Docusate Sodium (Colace) 100 mg DAILY PO Last administered on 04/02/19 09:42; Admin Dose 100 MG; Start 03/18/19 at 09:00 Levetiracetam (Keppra Liquid) 250 mg Q12H GTB Last administered on 04/02/19 09:41; Admin Dose 250 MG; Start 03/17/19 at 21:00 Magnesium Hydroxide (Milk Of Mag) 30 ml DAILY PRN GTB CONSTIPATION; Start 03/17/19 at 21:00 Lansoprazole (Prevacid) 30 mg DAILY@06 GTB Last administered on 04/02/19 05:38; Admin Dose 30 MG; Start 03/18/19 at 06:00 Epoetin Amor-epbx (RETACRIT(non-esrd)) 40,000 unit We@1700 SC Last administered on 03/26/19 17:30; Admin Dose 40,000 UNIT; Start 03/19/19 at 17:00 Multivit/Ca Carb/ B Cmplx/FA/Prenat (Renee-Antonio) 1 tab DAILY GTB Last administered on 04/02/19 09:41; Admin Dose 1 TAB; Start 03/21/19 at 09:00 Zinc Sulfate (Zinc Sulfate) 220 mg DAILY GTB Last administered on 04/02/19 09:42; Admin Dose 220 MG; Start 03/21/19 at 09:00 Collagenase (Santyl) 1 applic BID TOP Last administered on 04/02/19 09:41; Admin Dose 1 APPLIC; Start 03/20/19 at 16:28 Vancomycin HCl (Vanco Iv Per Pharmacy) VANCOMYCIN PER PHARMACY PER PROTOCOL XX ; Start 03/23/19 at 06:30 Piperacillin Sod/ Tazobactam Sod 100 ml @ 200 mls/hr Q6 IVPB Last administered on 04/02/19 05:38; Admin Dose 200 MLS/HR; Start 03/23/19 at 06:30 Acetylcysteine (Mucomyst) 2 ml Q6H RESP THERAPY NEB Last administered on 04/02/19 07:53; Admin Dose 2 ML; Start 03/24/19 at 11:00 Levalbuterol (Xopenex Hfa) 2 puff Q6H RESP THERAPY INH Last administered on 04/02/19 07:53; Admin Dose 2 PUFF; Start 03/24/19 at 14:00 Triamcinolone Acetonide (Kenalog 0.1% Cr) 1 applic BID TOP Last administered on 04/02/19 09:43; Admin Dose 1 APPLIC; Start 03/27/19 at 09:00 Vancomycin HCl 1.25 gm/Sodium Chloride 250 ml @ 83.333 mls/ hr Q48H IVPB Last administered on 04/02/19 06:27; Admin Dose 83.333 MLS/HR; Start 03/31/19 at 06:00 Sodium Phosphate (Neutra-Phos) 250 mg BID GTB Last administered on 04/02/19 09:42; Admin Dose 250 MG; Start 03/31/19 at 09:00 Metoprolol Tartrate (Lopressor) 25 mg Q8 GTB Last administered on 04/02/19 05:38; Admin Dose 25 MG; Start 03/31/19 at 14:00 Benazepril HCl (Lotensin) 10 mg BID PO Last administered on 04/02/19 09:42; Ad min Dose 10 MG; Start 03/31/19 at 21:00 LUIS FERGUSON April 02, 2019 11:30
[2019-04-02] MEDS: DIGOXIN 0.125 MG TAB PO SCH (13:26)
--- NOTE | 2019-04-02 14:39 | CONS ---
Assessment/Plan Assessment/Plan Hospital Course (Demo Recall) No aute events overnight patient is noncommunicative in no distress afebrile WBC today 6 platelets 229 neutrophils 63.2 BUN 16 creatinine 0.79cute changes overnight patient is noncommunicative in no distress no fevers Indwelling: Trach, PEG, Damon Antimicrobials: Vancomycin, Zosyn Physical examination: Chronically ill-appearing elderly woman in no distress. Head atraumatic normocephalic neck is supple tracheostomy present chest rise symmetrical breath sounds diminished bases. Heart: S1-S2. Abdomen soft bowel sounds present. Assessment: 1. Sigmoid diverticulosis with abscess 2. Left lower lobe atelectasis ? PNA 3. Chronic respiratory failure and dysphagia 4. Seizure disorder 5. Acute on chronic encephalopathy 6. Chronic kidney disease 7. Urinary tract infection as per urinalysis Plan: Remains unchanged, completed second week of antibiotics, pending repeat CT abdomen Consultation Date/Type/Reason Admit Date/Time March 17, 2019 at 14:33 Initial Consult Date 03/18/19 Type of Consult id Requesting Provider: IMER VARGAS Date/Time of Note DATE: 04/02/19 TIME: 14:39 Exam/Review of Systems Exam Vitals Vital Signs Date Temp Pulse Resp B/P (MAP) Pulse Ox O2 O2 Flow FiO2 Time Delivery Rate 04/02/19 72 21 100 30 13:00 04/02/19 98.0 139/65 11:20 (89) 04/02/19 Mechanical 04:38 Ventilator Intake and Output 04/01/19 04/01/19 04/02/19 1515:00 23:00 07:00 IntakeIntake Total 1120 ml OutputOutput Total 800 ml 650 ml BalanceBalance -800 ml 470 ml Results Result Diagram: 04/01/19 0504/01/19 0512 Medications Medication Current Medications Acetaminophen (Tylenol Liquid) 650 mg Q4H PRN GTB MILD PAIN 1-3; Start 03/17/19 at 21:30 Bisacodyl (Dulcolax Supp) 10 mg DAILY PRN [place] CONSTIPATION; Start 03/17/19 at 21:00 Chlorhexidine Gluconate (Peridex) 15 ml Q12H MM Last administered on 04/02/19at 09:41; Admin Dose 15 ML; Start 03/17/19 at 21:00 Digoxin (Digoxin) 0.125 mg DAILY@13 PO Last administered on 04/02/19 13:26; Admin Dose 0.125 MG; Start 03/18/19 at 13:00 Docusate Sodium (Colace) 100 mg DAILY PO Last administered on 04/02/19 09:42; Admin Dose 100 MG; Start 03/18/19 at 09:00 Levetiracetam (Keppra Liquid) 250 mg Q12H GTB Last administered on 04/02/19 09:41; Admin Dose 250 MG; Start 03/17/19 at 21:00 Magnesium Hydroxide (Milk Of Mag) 30 ml DAILY PRN GTB CONSTIPATION; Start 03/17/19 at 21:00 Lansoprazole (Prevacid) 30 mg DAILY@06 GTB Last administered on 04/02/19 05:38; Admin Dose 30 MG; Start 03/18/19 at 06:00 Epoetin Amor-epbx (RETACRIT(non-esrd)) 40,000 unit We@1700 SC Last administered on 03/26/19 17:30; Admin Dose 40,000 UNIT; Start 03/19/19 at 17:00 Multivit/Ca Carb/ B Cmplx/FA/Prenat (Renee-Antonio) 1 tab DAILY GTB Last administered on 04/02/19 09:41; Admin Dose 1 TAB; Start 03/21/19 at 09:00 Zinc Sulfate (Zinc Sulfate) 220 mg DAILY GTB Last administered on 04/02/19 09:42; Admin Dose 220 MG; Start 03/21/19 at 09:00 Collagenase (Santyl) 1 applic BID TOP Last administered on 04/02/19 09:41; Admin Dose 1 APPLIC; Start 03/20/19 at 16:28 Vancomycin HCl (Vanco Iv Per Pharmacy) VANCOMYCIN PER PHARMACY PER PROTOCOL XX ; Start 03/23/19 at 06:30 Piperacillin Sod/ Tazobactam Sod 100 ml @ 200 mls/hr Q6 IVPB Last administered on 04/02/19 13:25; Admin Dose 200 MLS/HR; Start 03/23/19 at 06:30 Acetylcysteine (Mucomyst) 2 ml Q6H RESP THERAPY NEB Last administered on 04/02/19 07:53; Admin Dose 2 ML; Start 03/24/19 at 11:00 Levalbuterol (Xopenex Hfa) 2 puff Q6H RESP THERAPY INH Last administered on 04/02/19 07:53; Admin Dose 2 PUFF; Start 03/24/19 at 14:00 Triamcinolone Acetonide (Kenalog 0.1% Cr) 1 applic BID TOP Last administered on 04/02/19 09:43; Admin Dose 1 APPLIC; Start 03/27/19 at 09:00 Vancomycin HCl 1.25 gm/Sodium Chloride 250 ml @ 83.333 mls/ hr Q48H IVPB Last administered on 04/02/19 06:27; Admin Dose 83.333 MLS/HR; Start 03/31/19 at 06:00 Sodium Phosphate (Neutra-Phos) 250 mg BID GTB Last administered on 04/02/19 09:42; Admin Dose 250 MG; Start 03/31/19 at 09:00 Metoprolol Tartrate (Lopressor) 25 mg Q8 GTB Last administered on 04/02/19 13:26; Admin Dose 25 MG; Start 03/31/19 at 14:00 Benazepril HCl (Lotensin) 10 mg BID PO Last administered on 04/02/19 09:42; Admin Dose 10 MG; Start 03/31/19 at 21:00 DEBO UMANA NP April 02, 2019 14:39
--- NOTE | 2019-04-02 15:38 | PN ---
Date/Time of Note Date/Time of Note DATE: 04/02/19 TIME: 15:37 Assessment/Plan Lines/Catheters IV Catheter Type (from [facility]): Saline Lock Damon in Place (from [facility]): Yes Assessment/Plan Chief Complaint/Hosp Course 1. Sigmoid diverticulosis with a focal area of abnormal wall thickening of the proximal sigmoid colon with an adjacent gas containing fluid collection measuring 3.1 x 3.2 x 8.5 cm extending along the left iliopsoas/iliacus muscles. This could represent peridiverticular abscess/contained perforation. Not drainable per IR. Family does not want aggressive measures (OR). s/p abx per ID -? reimage if wbc worsens (wbc nl) -supportive -nutritional optimization -dc planning ok from surgical standpoint 2. Anemia: No overt bleed noted -Monitor and transfuse as needed -Per hematology 3. VDRF: -Pulmonary toilet -Vent management per pulmonary 4. CKD -Limit nephrotoxic meds -Renally dose meds -Per renal 5. Atrial fibrillation history -Rate control 6. Heart failure: -Cardiac optimization 7. Dysphagia with PEG placement -Continue tube feeds with aspiration precautions Thank you Subjective 24 Hr Interval Summary WBC improved. Appears comfortable. Nonverbal indicators of pain not present. No fevers, congested cough, vomiting, diarrhea, sz, rash. Exam/Review of Systems Vital Signs Vitals Vital Signs Date Temp Pulse Resp B/P (MAP) Pulse Ox O2 O2 Flow FiO2 Time Delivery Rate 04/02/19 98.7 55 17 162/70 100 15:20 (100) 04/02/19 30 15:09 04/02/19 Mechanical 04:38 Ventilator Intake and Output 04/01/19 04/01/19 04/02/19 1515:00 23:00 07:00 IntakeIntake Total 1120 ml OutputOutput Total 800 ml 650 ml BalanceBalance -800 ml 470 ml Exam Free Text/Dictation Constitutional: alert; No oriented, No distress Psych: nl mood/affect Head: normocephalic, atraumatic Eyes: nl conjunctiva, EOMI, nl lids, nl sclera ENMT: nl external ears & nose, nl lips & teeth, mucosa pink and moist Neck: supple, non-tender, other (Tracheostomy) Respiratory: normal air movement, other (Vent); No congested cough Cardiovascular: s1s2 Gastrointestinal: soft, non-tender, other (PEG); No distended Genitourinary - Female: nl external genitalia Musculoskeletal: nl extremities to inspection, nl gait and stance Extremities: normal pulses; No edema Neurological: No nl mental status, No nl speech (Nonverbal, noncommunicative), No nl strength, No focal weakness Skin: No rash or lesions Results Result Diagram: 04/01/19 0512 04/01/19 0512 MARÍA ELENA MARTINEZ MD April 02, 2019 15:38
[2019-04-02] MEDS: EPOETIN ALFA-EPBX (NON-ESRD 10,000 UNIT/ML VIAL SC SCH (17:08)
--- NOTE | 2019-04-02 17:44 | CONS ---
Assessment/Plan Assessment/Plan Assessment/Plan (Daily) Assessment/Plan Assessment/Plan Hospital Course (Demo Recall) 73 yo female 1. Anemia of chronic disease --per DR Kiser note "pt is noted to have a macrocytic anemia which is mostly likely 2/2 underlying myelodysplastic syndrome" 2. Chronic kidney disease. 3. Hypertension. 4. Paroxysmal atrial fibrillation. 5. Cerebrovascular accident. 6. Possible meningioma. 7. Vent dependent respiratory failure. 8. Dysphagia, status post G-tube. 9. S/P colonoscopy 03/20 -found severe diverticulosis of left side of colon with spasm and poor prep 10. Walled off diverticular perforation abscess PLAN: Continue present care. Repeat CT scan has been done waiting for the result Consultation Date/Type/Reason Admit Date/Time March 17, 2019 at 14:33 Initial Consult Date 03/18/19 Requesting Provider: IMER VARGAS Date/Time of Note DATE: 04/02/19 TIME: 17:43 24 HR Interval Summary Subjective hx not possible: pt non-verbal Constitutional: no complaints, improved Exam/Review of Systems Exam Vitals Vital Signs Date Temp Pulse Resp B/P (MAP) Pulse Ox O2 O2 Flow FiO2 Time Delivery Rate 04/02/19 60 25 100 30 17:00 04/02/19 98.7 162/70 15:20 (100) 04/02/19 Mechanical 04:38 Ventilator Intake and Output 04/01/19 04/01/19 04/02/19 1515:00 23:00 07:00 IntakeIntake Total 1120 ml OutputOutput Total 800 ml 650 ml BalanceBalance -800 ml 470 ml Constitutional: non-verbal ENMT: intubated Respiratory: clear to auscultation, normal air movement Gastrointestinal: soft, nl liver, spleen, non-tender Musculoskeletal: nl extremities to inspection, nl gait and stance Results Result Diagram: 04/01/1951104/01/19511 Medications Medication Current Medications Acetaminophen (Tylenol Liquid) 650 mg Q4H PRN GTB MILD PAIN 1-3; Start 03/17/19 at 21:30 Bisacodyl (Dulcolax Supp) 10 mg DAILY PRN [place] CONSTIPATION; Start 03/17/19 at 21:00 Chlorhexidine Gluconate (Peridex) 15 ml Q12H MM Last administered on 04/02/19at 09:41; Admin Dose 15 ML; Start 03/17/19 at 21:00 Digoxin (Digoxin) 0.125 mg DAILY@13 PO Last administered on 04/02/19 13:26; Admin Dose 0.125 MG; Start 03/18/19 at 13:00 Docusate Sodium (Colace) 100 mg DAILY PO Last administered on 04/02/19 09:42; Admin Dose 100 MG; Start 03/18/19 at 09:00 Levetiracetam (Keppra Liquid) 250 mg Q12H GTB Last administered on 04/02/19 09:41; Admin Dose 250 MG; Start 03/17/19 at 21:00 Magnesium Hydroxide (Milk Of Mag) 30 ml DAILY PRN GTB CONSTIPATION; Start 03/17/19 at 21:00 Lansoprazole (Prevacid) 30 mg DAILY@06 GTB Last administered on 04/02/19 05:38; Admin Dose 30 MG; Start 03/18/19 at 06:00 Epoetin Amor-epbx (RETACRIT(non-esrd)) 40,000 unit We@1700 SC Last administered on 04/02/19 17:08; Admin Dose 40,000 UNIT; Start 03/19/19 at 17:00 Multivit/Ca Carb/ B Cmplx/FA/Prenat (Renee-Antonio) 1 tab DAILY GTB Last administered on 04/02/19 09:41; Admin Dose 1 TAB; Start 03/21/19 at 09:00 Zinc Sulfate (Zinc Sulfate) 220 mg DAILY GTB Last administered on 04/02/19 09:42; Admin Dose 220 MG; Start 03/21/19 at 09:00 Collagenase (Santyl) 1 applic BID TOP Last administered on 04/02/19 09:41; Admin Dose 1 APPLIC; Start 03/20/19 at 16:28 Vancomycin HCl (Vanco Iv Per Pharmacy) VANCOMYCIN PER PHARMACY PER PROTOCOL XX ; Start 03/23/19 at 06:30 Piperacillin Sod/ Tazobactam Sod 100 ml @ 200 mls/hr Q6 IVPB Last administered on 04/02/19 17:08; Admin Dose 200 MLS/HR; Start 03/23/19 at 06:30 Acetylcysteine (Mucomyst) 2 ml Q6H RESP THERAPY NEB Last administered on 04/02/19 15:11; Admin Dose 2 ML; Start 03/24/19 at 11:00 Levalbuterol (Xopenex Hfa) 2 puff Q6H RESP THERAPY INH Last administered on 04/02/19 15:11; Admin Dose 2 PUFF; Start 03/24/19 at 14:00 Triamcinolone Acetonide (Kenalog 0.1% Cr) 1 applic BID TOP Last administered on 04/02/19 09:43; Admin Dose 1 APPLIC; Start 03/27/19 at 09:00 Vancomycin HCl 1.25 gm/Sodium Chloride 250 ml @ 83.333 mls/ hr Q48H IVPB Last administered on 04/02/19 06:27; Admin Dose 83.333 MLS/HR; Start 03/31/19 at 06:00 Sodium Phosphate (Neutra-Phos) 250 mg BID GTB Last administered on 04/02/19 09:42; Admin Dose 250 MG; Start 03/31/19 at 09:00 Metoprolol Tartrate (Lopressor) 25 mg Q8 GTB Last administered on 04/02/19 13:26; Admin Dose 25 MG; Start 03/31/19 at 14:00 Benazepril HCl (Lotensin) 10 mg BID PO Last administered on 04/02/19 09:42; Admin Dose 10 MG; Start 03/31/19 at 21:00 TYSON ALICEA MD April 02, 2019 17:44
--- NOTE | 2019-04-02 18:50 | PN ---
Date/Time of Note Date/Time of Note DATE: 04/02/19 TIME: 18:49 Assessment/Plan VTE Prophylaxis Risk score (from Ns)>0 risk: 6 SCD applied (from Ns): Yes Pharmacological prophylaxis: NA/contraindicated Pharm contraindication: bleeding Lines/Catheters IV C[facility] Type (from [facility]): [place] Urinary Cath still in place: Yes Reason Cath still needed: urinary retention Assessment/Plan Hospital Course No acute events overnight, pending CT of the abdomen and pelvis, patient remains hemodynamically stable, tolerates G-tube feeding well, DC planning Assessment/Plan -Diverticular abscess, Dr Mario is following in surgical consultation. Abscess is too small for drainage by IR. Family did not want any surgical in tervention. Plan to repeat CT in 2 weeks. Continue antibiotics. Per ID patient is currently on Vanco and Zosyn. Dr. Melendez is following in infection disease consultation. -Severe diverticulosis with spasm per colonoscopy. Dr. Galdamez is following in gastroenterology consultation. -Anemia. Stool for OB neg. Continue Epogen and Iron supplementation. Dr. Kiser is following in hematology consultation -Ventilator dependent respiratory failure with tracheostomy. Dr. Davenport is following in pulmonology consultation. -Acute on chronic kidney disease. Monitor BUN and creatinine. Dr. Grant is following in nephrology consultation -Atrial fibrillation, continue metoprolol -Diastolic congestive heart failure. Dr. Hernandez is following in cardiology consultation. -Pulmonary fibrosis, continue Pulmicort. -Dysphagia with G-tube. -Chronic encephalopathy -COPD -History of CVA, continue aspirin. -Seizure disorder/status epilepticus. Continue Keppra and Ativan as needed. -MRSA nares colonization Further recommendations based on clinical course. Plan of care discussed with Dr. Phillips. Result Diagram: 04/01/1951104/01/19511 Exam/Review of Systems Exam Vitals Vital Signs Date Temp Pulse Resp B/P (MAP) Pulse Ox O2 O2 Flow FiO2 Time Delivery Rate 04/02/19 60 25 100 30 17:00 04/02/19 98.7 162/70 15:20 (100) 04/02/19 Mechanical 04:38 Ventilator Intake and Output 04/01/19 04/01/19 04/02/19 1515:00 23:00 07:00 IntakeIntake Total 1120 ml OutputOutput Total 800 ml 650 ml BalanceBalance -800 ml 470 ml Exam Constitutional: awake, alert Neck: other (trach) Respiratory: diminished breath sounds Cardiovascular: regular rate and rhythm Gastrointestinal: soft, non-tender, other (G-tube) Extremities: normal pulses Medications Medication Current Medications Acetaminophen (Tylenol Liquid) 650 mg Q4H PRN GTB MILD PAIN 1-3; Start 03/17/19 at 21:30 Bisacodyl (Dulcolax Supp) 10 mg DAILY PRN [place] CONSTIPATION; Start 03/17/19 at 21:00 Chlorhexidine Gluconate (Peridex) 15 ml Q12H MM Last administered on 04/02/19 09:41; Admin Dose 15 ML; Start 03/17/19 at 21:00 Digoxin (Digoxin) 0.125 mg DAILY@13 PO Last administered on 04/02/19 13:26; Admin Dose 0.125 MG; Start 03/18/19 at 13:00 Docusate Sodium (Colace) 100 mg DAILY PO Last administered on 04/02/19 09:42; Admin Dose 100 MG; Start 03/18/19 at 09:00 Levetiracetam (Keppra Liquid) 250 mg Q12H GTB Last administered on 04/02/19 09:41; Admin Dose 250 MG; Start 03/17/19 at 21:00 Magnesium Hydroxide (Milk Of Mag) 30 ml DAILY PRN GTB CONSTIPATION; Start 03/17/19 at 21:00 Lansoprazole (Prevacid) 30 mg DAILY@06 GTB Last administered on 04/02/19 05:38; Admin Dose 30 MG; Start 03/18/19 at 06:00 Epoetin Amor-epbx (RETACRIT(non-esrd)) 40,000 unit We@1700 SC Last administered on 04/02/19 17:08; Admin Dose 40,000 UNIT; Start 03/19/19 at 17:00 Multivit/Ca Carb/ B Cmplx/FA/Prenat (Renee-Antonio) 1 tab DAILY GTB Last administered on 04/02/19 09:41; Admin Dose 1 TAB; Start 03/21/19 at 09:00 Zinc Sulfate (Zinc Sulfate) 220 mg DAILY GTB Last administered on 04/02/19 09:42; Admin Dose 220 MG; Start 03/21/19 at 09:00 Collagenase (Santyl) 1 applic BID TOP Last administered on 04/02/19 09:41; Admin Dose 1 APPLIC; Start 03/20/19 at 16:28 Vancomycin HCl (Vanco Iv Per Pharmacy) VANCOMYCIN PER PHARMACY PER PROTOCOL XX ; Start 03/23/19 at 06:30 Piperacillin Sod/ Tazobactam Sod 100 ml @ 200 mls/hr Q6 IVPB Last administered on 04/02/19 17:08; Admin Dose 200 MLS/HR; Start 03/23/19 at 06:30 Acetylcysteine (Mucomyst) 2 ml Q6H RESP THERAPY NEB Last administered on 04/02/19 15:11; Admin Dose 2 ML; Start 03/24/19 at 11:00 Levalbuterol (Xopenex Hfa) 2 puff Q6H RESP THERAPY INH Last administered on 04/02/19 15:11; Admin Dose 2 PUFF; Start 03/24/19 at 14:00 Triamcinolone Acetonide (Kenalog 0.1% Cr) 1 applic BID TOP Last administered on 04/02/19 09:43; Admin Dose 1 APPLIC; Start 03/27/19 at 09:00 Vancomycin HCl 1.25 gm/Sodium Chloride 250 ml @ 83.333 mls/ hr Q48H IVPB Last administered on 04/02/19 06:27; Admin Dose 83.333 MLS/HR; Start 03/31/19 at 06:00 Sodium Phosphate (Neutra-Phos) 250 mg BID GTB Last administered on 04/02/19 09:42; Admin Dose 250 MG; Start 03/31/19 at 09:00 Metoprolol Tartrate (Lopressor) 25 mg Q8 GTB Last administered on 04/02/19 13:26; Admin Dose 25 MG; Start 03/31/19 at 14:00 Benazepril HCl (Lotensin) 10 mg BID PO Last administered on 04/02/19 09:42; Admin Dose 10 MG; Start 03/31/19 at 21:00 IMER VARGAS April 02, 2019 18:50
[2019-04-03] VITALS (26 sets, daily range): BP systolic 133–165; BP diastolic 55–112; PULSE 53–72; RESP 20–21
[2019-04-03] MEDS: LEVALBUTEROL (HFA) 15 GM INHALER INH SCH ×4 (02:51→19:35)
[2019-04-03] MEDS: ACETYLCYSTEINE 20% 4 ML VIAL NEB SCH ×4 (02:53→19:35)
[2019-04-03] MEDS: LANSOPRAZOLE 30 MG CAP GTB SCH (05:26)
[2019-04-03] MEDS: PIPER-TAZO 3.375 GM IV (PMX) 100 ML IVPB SCH ×3 (05:26→17:30)
[2019-04-03] MEDS: METOPROLOL 25 MG TAB GTB SCH ×3 (05:27→21:00)
[2019-04-03] MEDS: CHLORHEXIDINE GLUCONATE 15 ML UD CUP MM SCH ×2 (08:29→20:55)
[2019-04-03] MEDS: MULTIVIT/CA CARB/B CMPLX/FA TAB GTB SCH (08:29)
[2019-04-03] MEDS: BENAZEPRIL 10 MG TAB PO SCH (08:29)
[2019-04-03] MEDS: ZINC SULFATE 220 MG CAP GTB SCH (08:29)
[2019-04-03] MEDS: DOCUSATE SODIUM 100 MG CAP PO SCH (08:29)
[2019-04-03] MEDS: COLLAGENASE 5 GM (UD JAR) TOP SCH ×2 (08:29→20:56)
[2019-04-03] MEDS: NEUTRA-PHOS 250 MG PACKET GTB SCH ×2 (08:29→20:55)
[2019-04-03] MEDS: LEVETIRACETAM (100 MG/ML) 5ML CUP GTB SCH ×2 (08:29→20:55)
[2019-04-03] MEDS: TRIAMCINOLONE ACET 0.1% 15 GM CR TOP SCH ×2 (08:30→20:56)
--- NOTE | 2019-04-03 09:29 | PN ---
DATE: 04/03/2019 SUBJECTIVE: The patient is stable. No events overnight. OBJECTIVE: VITAL SIGNS: Blood pressure is 165/73, pulse 71, respirations 20, temperature 98.6. HEENT: Head is normocephalic. NECK: Supple. HEART: Regular rate. LUNGS: Show diminished breath sounds at the base. ABDOMEN: Soft, nontender to palpation without rebound or guarding. EXTREMITIES: Negative for clubbing, cyanosis, no edema. DERMATOLOGIC: No rashes. MUSCULOSKELETAL: No joint effusion. NEUROLOGIC: No change in exam. MEDICATIONS: Reviewed. LABORATORY DATA: Reviewed. IMAGING STUDIES: Reviewed. ASSESSMENT AND PLAN: 1. Chronic kidney disease stage III. The patient's renal function is currently stable. Continue cu rrent treatment plan, supportive care and renally dose all medications. 2. Hypokalemia and hypomagnesemia, improved. 3. Mineral bone disorder. Monitor calcium and phosphorus levels. 4. Anemia. Monitor hemoglobin and hematocrit levels. 5. Hypertension. Continue current blood pressure regimen. Adjust medications as needed. 6. Ventilator-dependent respiratory failure. Vent settings have been reviewed. Continue to monitor . 7. Intraabdominal abscess. The patient is on antibiotic therapy. Repeat CT scan is pending for ree valuation. 8. Dysphagia. Continue tube feeding. 9. Chronic encephalopathy. No change. Dictated By: RAJINDER ATWOOD DO NR/NTS Conf#: [id number] DID#: [id number] CC: JAYLEN LUGO MD; MENDEL FIELDS MD;*EndCC*
[2019-04-03] MEDS ORDERED: BENAZEPRIL 10 MG TAB PO SCH (09:30)
--- NOTE | 2019-04-03 10:30 | CONS ---
Assessment/Plan Assessment/Plan Assessment/Plan (Daily) Assessment/Plan Assessment/Plan Hospital Course (Demo Recall) 73 yo female 1. Anemia of chronic disease --per DR Kiser note "pt is noted to have a macrocytic anemia which is mostly likely 2/2 underlying myelodysplastic syndrome" 2. Chronic kidney disease. 3. Hypertension. 4. Paroxysmal atrial fibrillation. 5. Cerebrovascular accident. 6. Possible meningioma. 7. Vent dependent respiratory failure. 8. Dysphagia, status post G-tube. 9. S/P colonoscopy 03/20 -found severe diverticulosis of left side of colon with spasm and poor prep 10. Walled off diverticular perforation abscess PLAN: Continue present care. Repeat CT scan next week Consultation Date/Type/Reason Admit Date/Time March 17, 2019 at 14:33 Initial Consult Date 03/18/19 Requesting Provider: IMER VARGAS Date/Time of Note DATE: 04/03/19 TIME: 10:29 24 HR Interval Summary Subjective hx not possible: pt non-verbal Exam/Review of Systems Exam Vitals Vital Signs Date Temp Pulse Resp B/P (MAP) Pulse Ox O2 O2 Flow FiO2 Time Delivery Rate 04/03/19 59 20 98 30 09:40 04/03/19 98.6 165/73 Mechanical 07:41 (103) Ventilator Intake and Output 04/02/19 04/02/19 04/03/19 1515:00 23:00 07:00 IntakeIntake Total 1120 ml 1320 ml OutputOutput Total 900 ml 1100 ml BalanceBalance 220 ml 220 ml Constitutional: non-verbal ENMT: intubated Respiratory: diminished breath sounds Results Result Diagram: 04/01/19 0512 04/01/19 05 Medications Medication Current Medications Acetaminophen (Tylenol Liquid) 650 mg Q4H PRN GTB MILD PAIN 1-3; Start 03/17/19 at 21:30 Bisacodyl (Dulcolax Supp) 10 mg DAILY PRN [place] CONSTIPATION; Start 03/17/19 at 21:00 Chlorhexidine Gluconate (Peridex) 15 ml Q12H MM Last administered on 04/03/19at 08:29; Admin Dose 15 ML; Start 03/17/19 at 21:00 Digoxin (Digoxin) 0.125 mg DAILY@13 PO Last administered on 04/02/19at 13:26; Admin Dose 0.125 MG; Start 03/18/19 at 13:00 Docusate Sodium (Colace) 100 mg DAILY PO Last administered on 04/03/19 08:29; Admin Dose 100 MG; Start 03/18/19 at 09:00 Levetiracetam (Keppra Liquid) 250 mg Q12H GTB Last administered on 04/03/19 08:29; Admin Dose 250 MG; Start 03/17/19 at 21:00 Magnesium Hydroxide (Milk Of Mag) 30 ml DAILY PRN GTB CONSTIPATION; Start 03/17/19 at 21:00 Lansoprazole (Prevacid) 30 mg DAILY@06 GTB Last administered on 04/03/19 05:26; Admin Dose 30 MG; Start 03/18/19 at 06:00 Epoetin Amor-epbx (RETACRIT(non-esrd)) 40,000 unit We@1700 SC Last administered on 04/02/19 17:08; Admin Dose 40,000 UNIT; Start 03/19/19 at 17:00 Multivit/Ca Carb/ B Cmplx/FA/Prenat (Renee-Antonio) 1 tab DAILY GTB Last administered on 04/03/19 08:29; Admin Dose 1 TAB; Start 03/21/19 at 09:00 Zinc Sulfate (Zinc Sulfate) 220 mg DAILY GTB Last administered on 04/03/19 08:29; Admin Dose 220 MG; Start 03/21/19 at 09:00 Collagenase (Santyl) 1 applic BID TOP Last administered on 04/03/19 08:29; Admin Dose 1 APPLIC; Start 03/20/19 at 16:28 Vancomycin HCl (Vanco Iv Per Pharmacy) VANCOMYCIN PER PHARMACY PER PROTOCOL XX ; Start 03/23/19 at 06:30 Piperacillin Sod/ Tazobactam Sod 100 ml @ 200 mls/hr Q6 IVPB Last administered on 04/03/19 05:26; Admin Dose 200 MLS/HR; Start 03/23/19 at 06:30 Acetylcysteine (Mucomyst) 2 ml Q6H RESP THERAPY NEB Last administered on 04/03/19 08:14; Admin Dose 2 ML; Start 03/24/19 at 11:00 Levalbuterol (Xopenex Hfa) 2 puff Q6H RESP THERAPY INH Last administered on 04/03/19 08:14; Admin Dose 2 PUFF; Start 03/24/19 at 14:00 Triamcinolone Acetonide (Kenalog 0.1% Cr) 1 applic BID TOP Last administered on 04/03/19 08:30; Admin Dose 1 APPLIC; Start 03/27/19 at 09:00 Vancomycin HCl 1.25 gm/Sodium Chloride 250 ml @ 83.333 mls/ hr Q48H IVPB Last administered on 04/02/19 06:27; Admin Dose 83.333 MLS/HR; Start 03/31/19 at 06:00 Sodium Phosphate (Neutra-Phos) 250 mg BID GTB Last administered on 04/03/19 08:29; Admin Dose 250 MG; Start 03/31/19 at 09:00 Metoprolol Tartrate (Lopressor) 25 mg Q8 GTB Last administered on 04/03/19 05:27; Admin Dose 25 MG; Start 03/31/19 at 14:00 Benazepril HCl (Lotensin) 20 mg BID PO ; Start 04/03/19 at 21:00 Benazepril HCl (Lotensin) 10 mg ONCE PO Last administered on 04/03/19 09:39; Admin Dose 10 MG; Start 04/03/19 at 09:30; Stop 04/03/19 at 12:00 TYSON ALICEA MD April 03, 2019 10:30
--- NOTE | 2019-04-03 12:20 | PN ---
Date/Time of Note Date/Time of Note DATE: 04/03/19 TIME: 12:18 Assessment/Plan Lines/Catheters IV [facility] Type (from [facility] Peripheral IV Damon in Place (from [facility]): Yes Assessment/Plan Chief Complaint/Hosp Course 1. Sigmoid diverticulosis with a focal area of abnormal wall thickening of the proximal sigmoid colon with an adjacent gas containing fluid collection measuring 3.1 x 3.2 x 8.5 cm extending along the left iliopsoas/iliacus muscles. This could represent peridiverticular abscess/contained perforation. Not drainable per IR. Family does not want aggressive measures (OR). s/p abx per ID -? reimage if wbc worsens (wbc nl, vitals normal) -supportive -nutritional optimization -dc planning ok from surgical standpoint 2. Anemia: No overt bleed noted -Monitor and transfuse as needed -Per hematology 3. VDRF: -Pulmonary toilet -Vent management per pulmonary 4. CKD -Limit nephrotoxic meds -Renally dose meds -Per renal 5. Atrial fibrillation history -Rate control 6. Heart failure: -Cardiac optimization 7. Dysphagia with PEG placement -Continue tube feeds with aspiration precautions Thank you. Patient seen and examined in collaboration with Dr. Harry Mairo. Subjective 24 Hr Interval Summary Appears comfortable. Tolerating tube feeds. + Bowel function. Nonverbal indicators of pain at present. No fevers, labored breathing, congested cough, vomiting, diarrhea, seizure, rash. Exam/Review of Systems Vital Signs Vitals Vital Signs Date Temp Pulse Resp B/P (MAP) Pulse Ox O2 O2 Flow FiO2 Time Delivery Rate 04/03/19 98.2 63 20 148/65 100 Mechanical 11:38 (92) Ventilator 04/03/19 30 11:18 Intake and Output 04/02/19 04/02/19 04/03/19 1515:00 23:00 07:00 IntakeIntake Total 1120 ml 1320 ml OutputOutput Total 900 ml 1100 ml BalanceBalance 220 ml 220 ml Exam Free Text/Dictation Constitutional: alert; No oriented, No distress Psych: nl mood/affect Head: normocephalic, atraumatic Eyes: nl conjunctiva, EOMI, nl lids, nl sclera ENMT: nl external ears & nose, nl lips & teeth, mucosa pink and moist Neck: supple, non-tender, other (Tracheostomy) Respiratory: normal air movement, other (Vent); No congested cough Cardiovascular: s1s2 Gastrointestinal: soft, non-tender, other (PEG); No distended Genitourinary - Female: nl external genitalia Musculoskeletal: nl extremities to inspection, nl gait and stance Extremities: normal pulses; No edema Neurological: No nl mental status, No nl speech (Nonverbal, noncommunicative), No nl strength, No focal weakness Skin: No rash or lesions Results Result Diagram: 04/01/19 0512 04/01/19 0512 EULA HICKMAN NP April 03, 2019 12:20
[2019-04-03] MEDS: DIGOXIN 0.125 MG TAB PO SCH (13:00)
--- NOTE | 2019-04-03 13:11 | CONS ---
Assessment/Plan Assessment/Plan Hospital Course (Demo Recall) 73 yo with #Anemia -Hg dropped to 8.9 -pt is noted to have a macrocytic anemia which is mostly likely 2/2 underlying myelodysplastic syndrome -continue epogen 40,000 units weekly -iron panel reveals mild iron deficiency. s/p ferrilict -vitamin b12 and folate levels are ok -past workup for anemia reveals a negative SPEP and no signs of hemolysis. will however recheck LDH, haptoglobin and retic -f/u colonoscopy results # fluid collection -measuring 3.1 x 3.2 x 8.5 cm extending along the left iliopsoas/iliacus muscles. This could represent peridiverticular abscess/contained perforation. -not drainable per IR -pt is currently on vancomycin and zosyn Consultation Date/Type/Reason Admit Date/Time March 17, 2019 at 14:33 Initial Consult Date 03/18/19 Type of Consult hematology Reason for Consultation anemia Requesting Provider: IMER VARGAS Date/Time of Note DATE: 04/03/19 TIME: 13:10 24 HR Interval Summary Free Text/Dictation no acute overnight events Exam/Review of Systems Exam Vitals Vital Signs Date Temp Pulse Resp B/P (MAP) Pulse Ox O2 O2 Flow FiO2 Time Delivery Rate 04/03/19 59 12:00 04/03/19 98.2 20 148/65 100 Mechanical 11:38 (92) Ventilator 04/03/19 30 11:18 Intake and Output 04/02/19 04/02/19 04/03/19 1515:00 23:00 07:00 IntakeIntake Total 1120 ml 1320 ml OutputOutput Total 900 ml 1100 ml BalanceBalance 220 ml 220 ml Constitutional: distress, frail Psych: confusion Head: normocephalic Eyes: nl conjunctiva ENMT: nl external ears & nose Neck: other (trach in place) Respiratory: clear to auscultation Cardiovascular: regular rate and rhythm Gastrointestinal: soft Musculoskeletal: nl extremities to inspection Results Result Diagram: 04/01/1951104/01/19 05 Medications Medication Current Medications Acetaminophen (Tylenol Liquid) 650 mg Q4H PRN GTB MILD PAIN 1-3; Start 03/17/19 at 21:30 Bisacodyl (Dulcolax Supp) 10 mg DAILY PRN [place] CONSTIPATION; Start 03/17/19 at 21:00 Chlorhexidine Gluconate (Peridex) 15 ml Q12H MM Last administered on 04/03/19 08:29; Admin Dose 15 ML; Start 03/17/19 at 21:00 Digoxin (Digoxin) 0.125 mg DAILY@13 PO Last administered on 04/02/19 13:26; Admin Dose 0.125 MG; Start 03/18/19 at 13:00 Docusate Sodium (Colace) 100 mg DAILY PO Last administered on 04/03/19 08:29; Admin Dose 100 MG; Start 03/18/19 at 09:00 Levetiracetam (Keppra Liquid) 250 mg Q12H GTB Last administered on 04/03/19 08:29; Admin Dose 250 MG; Start 03/17/19 at 21:00 Magnesium Hydroxide (Milk Of Mag) 30 ml DAILY PRN GTB CONSTIPATION; Start 03/17/19 at 21:00 Lansoprazole (Prevacid) 30 mg DAILY@06 GTB Last administered on 04/03/19 05:26; Admin Dose 30 MG; Start 03/18/19 at 06:00 Epoetin Amor-epbx (RETACRIT(non-esrd)) 40,000 unit We@1700 SC Last administered on 04/02/19 17:08; Admin Dose 40,000 UNIT; Start 03/19/19 at 17:00 Multivit/Ca Carb/ B Cmplx/FA/Prenat (Renee-Antonio) 1 tab DAILY GTB Last administered on 04/03/19 08:29; Admin Dose 1 TAB; Start 03/21/19 at 09:00 Zinc Sulfate (Zinc Sulfate) 220 mg DAILY GTB Last administered on 04/03/19 08:29; Admin Dose 220 MG; Start 03/21/19 at 09:00 Collagenase (Santyl) 1 applic BID TOP Last administered on 04/03/19 08:29; Admin Dose 1 APPLIC; Start 03/20/19 at 16:28 Vancomycin HCl (Vanco Iv Per Pharmacy) VANCOMYCIN PER PHARMACY PER PROTOCOL XX ; Start 03/23/19 at 06:30 Piperacillin Sod/ Tazobactam Sod 100 ml @ 200 mls/hr Q6 IVPB Last administered on 04/03/19 11:19; Admin Dose 200 MLS/HR; Start 03/23/19 at 06:30 Acetylcysteine (Mucomyst) 2 ml Q6H RESP THERAPY NEB Last administered on 04/03/19 08:14; Admin Dose 2 ML; Start 03/24/19 at 11:00 Levalbuterol (Xopenex Hfa) 2 puff Q6H RESP THERAPY INH Last administered on 04/03/19 08:14; Admin Dose 2 PUFF; Start 03/24/19 at 14:00 Triamcinolone Acetonide (Kenalog 0.1% Cr) 1 applic BID TOP Last administered on 04/03/19 08:30; Admin Dose 1 APPLIC; Start 03/27/19 at 09:00 Vancomycin HCl 1.25 gm/Sodium Chloride 250 ml @ 83.333 mls/ hr Q48H IVPB Last administered on 04/02/19 06:27; Admin Dose 83.333 MLS/HR; Start 03/31/19 at 06:00 Sodium Phosphate (Neutra-Phos) 250 mg BID GTB Last administered on 04/03/19 08:29; Admin Dose 250 MG; Start 03/31/19 at 09:00 Metoprolol Tartrate (Lopressor) 25 mg Q8 GTB Last administered on 04/03/19 05:27; Admin Dose 25 MG; Start 03/31/19 at 14:00 Benazepril HCl (Lotensin) 20 mg BID PO ; Start 04/03/19 at 21:00 IJEOMA GROSSMAN M.D. April 03, 2019 13:11
--- NOTE | 2019-04-03 14:13 | PN ---
Date/Time of Note Date/Time of Note DATE: 04/03/19 TIME: 14:13 Assessment/Plan VTE Prophylaxis Risk score (from Ns)>0 risk: 6 SCD applied (from Ns): Yes Pharmacological prophylaxis: NA/contraindicated Pharm contraindication: bleeding Lines/Catheters IV [facility] Type (from [facility]): Peripheral IV Urinary Cath still in place: Yes Reason Cath still needed: urinary retention Assessment/Plan Hospital Course No acute events overnight, pending CT of the abdomen and pelvis, patient remains hemodynamically stable, tolerates G-tube feeding well, DC planning Assessment/Plan -Diverticular abscess, Dr Mario is following in surgical consultation. Abscess is too small for drainage by IR. Family did not want any surgical intervention. Plan to repeat CT in 2 weeks. Continue antibiotics. Per ID patient is currently on Vanco and Zosyn. Dr. Melendez is following in infection disease consultation. -Severe diverticulosis with spasm per colonoscopy. Dr. Galdamez is following in gastroenterology consultation. -Anemia. Stool for OB neg. Continue Epogen and Iron supplementation. Dr. Kiser is following in hematology consultation -Ventilator dependent respiratory failure with tracheostomy. Dr. Davenport is following in pulmonology consultation. -Acute on chronic kidney disease. Monitor BUN and creatinine. Dr. Grant is following in nephrology consultation -Atrial fibrillation, continue metoprolol -Diastolic congestive heart failure. Dr. Hernandez is following in cardiology consultation. -Pulmonary fibrosis, continue Pulmicort. -Dysphagia with G-tube. -Chronic encephalopathy -COPD -History of CVA, continue aspirin. -Seizure disorder/status epilepticus. Continue Keppra and Ativan as needed. -MRSA nares colonization Further recommendations based on clinical course. Plan of care discussed with Dr. Phillips. Result Diagram: 04/01/1951104/01/19511 Exam/Review of Systems Exam Vitals Vital Signs Date Temp Pulse Resp B/P (MAP) Pulse Ox O2 O2 Flow FiO2 Time Delivery Rate 04/03/19 59 12:00 04/03/19 30 12:00 04/03/19 98.2 20 148/65 100 Mechanical 11:38 (92) Ventilator Intake and Output 04/02/19 04/02/19 04/03/19 1515:00 23:00 07:00 IntakeIntake Total 1120 ml 1320 ml OutputOutput Total 900 ml 1100 ml BalanceBalance 220 ml 220 ml Exam Constitutional: awake, alert Neck: other (trach) Respiratory: diminished breath sounds Cardiovascular: regular rate and rhythm Gastrointestinal: soft, non-tender, other (G-tube) Extremities: normal pulses Medications Medication Current Medications Acetaminophen (Tylenol Liquid) 650 mg Q4H PRN GTB MILD PAIN 1-3; Start 03/17/19 at 21:30 Bisacodyl (Dulcolax Supp) 10 mg DAILY PRN [place] CONSTIPATION; Start 03/17/19 at 21:00 Chlorhexidine Gluconate (Peridex) 15 ml Q12H MM Last administered on 04/03/19 08:29; Admin Dose 15 ML; Start 03/17/19 at 21:00 Digoxin (Digoxin) 0.125 mg DAILY@13 PO Last administered on 04/02/19 13:26; Admin Dose 0.125 MG; Start 03/18/19 at 13:00 Docusate Sodium (Colace) 100 mg DAILY PO Last administered on 04/03/19 08:29; Admin Dose 100 MG; Start 03/18/19 at 09:00 Levetiracetam (Keppra Liquid) 250 mg Q12H GTB Last administered on 04/03/19 08:29; Admin Dose 250 MG; Start 03/17/19 at 21:00 Magnesium Hydroxide (Milk Of Mag) 30 ml DAILY PRN GTB CONSTIPATION; Start 03/17/19 at 21:00 Lansoprazole (Prevacid) 30 mg DAILY@06 GTB Last administered on 04/03/19 05:26; Admin Dose 30 MG; Start 03/18/19 at 06:00 Epoetin Amor-epbx (RETACRIT(non-esrd)) 40,000 unit We@1700 SC Last administered on 04/02/19 17:08; Admin Dose 40,000 UNIT; Start 03/19/19 at 17:00 Multivit/Ca Carb/ B Cmplx/FA/Prenat (Renee-Antonio) 1 tab DAILY GTB Last administered on 04/03/19 08:29; Admin Dose 1 TAB; Start 03/21/19 at 09:00 Zinc Sulfate (Zinc Sulfate) 220 mg DAILY GTB Last administered on 04/03/19 08:29; Admin Dose 220 MG; Start 03/21/19 at 09:00 Collagenase (Santyl) 1 applic BID TOP Last administered on 04/03/19 08:29; Admin Dose 1 APPLIC; Start 03/20/19 at 16:28 Vancomycin HCl (Vanco Iv Per Pharmacy) VANCOMYCIN PER PHARMACY PER PROTOCOL XX ; Start 03/23/19 at 06:30 Piperacillin Sod/ Tazobactam Sod 100 ml @ 200 mls/hr Q6 IVPB Last administered on 04/03/19 11:19; Admin Dose 200 MLS/HR; Start 03/23/19 at 06:30 Acetylcysteine (Mucomyst) 2 ml Q6H RESP THERAPY NEB Last administered on 04/03/19 08:14; Admin Dose 2 ML; Start 03/24/19 at 11:00 Levalbuterol (Xopenex Hfa) 2 puff Q6H RESP THERAPY INH Last administered on 04/03/19 08:14; Admin Dose 2 PUFF; Start 03/24/19 at 14:00 Triamcinolone Acetonide (Kenalog 0.1% Cr) 1 applic BID TOP Last administered on 04/03/19 08:30; Admin Dose 1 APPLIC; Start 03/27/19 at 09:00 Vancomycin HCl 1.25 gm/Sodium Chloride 250 ml @ 83.333 mls/ hr Q48H IVPB Last administered on 04/02/19 06:27; Admin Dose 83.333 MLS/HR; Start 03/31/19 at 06:00 Sodium Phosphate (Neutra-Phos) 250 mg BID GTB Last administered on 04/03/19 08:29; Admin Dose 250 MG; Start 03/31/19 at 09:00 Metoprolol Tartrate (Lopressor) 25 mg Q8 GTB Last administered on 04/03/19 05:27; Admin Dose 25 MG; Start 03/31/19 at 14:00 Benazepril HCl (Lotensin) 20 mg BID PO ; Start 04/03/19 at 21:00 IMER VARGAS April 03, 2019 14:13
--- NOTE | 2019-04-03 15:45 | CONS ---
Assessment/Plan Assessment/Plan Hospital Course (Demo Recall) No aute events overnight patient is noncommunicative in no distress afebrile Indwelling: Trach, PEG, Damon Antimicrobials: Vancomycin, Zosyn Physical examination: Chronically ill-appearing elderly woman in no distress. Head atraumatic normocephalic neck is supple tracheostomy present chest rise symmetrical breath sounds diminished bases. Heart: S1-S2. Abdomen soft bowel sounds present. Assessment: 1. Sigmoid diverticulosis with abscess 2. Left lower lobe atelectasis ? PNA 3. Chronic respiratory failure and dysphagia 4. Seizure disorder 5. Acute on chronic encephalopathy 6. Chronic kidney disease 7. Urinary tract infection as per urinalysis Plan: Remains unchanged, completing second week of antibiotics, pending repeat CT abdomen Consultation Date/Type/Reason Admit Date/Time March 17, 2019 at 14:33 Initial Consult Date 03/18/19 Type of Consult id Requesting Provider: IMER VARGAS Date/Time of Note DATE: 04/03/19 TIME: 15:44 Exam/Review of Systems Exam Vitals Vital Signs Date Temp Pulse Resp B/P (MAP) Pulse Ox O2 O2 Flow FiO2 Time Delivery Rate 04/03/19 66 20 98 30 14:59 04/03/19 98.2 148/65 Mechanical 11:38 (92) Ventilator Intake and Output 04/02/19 04/02/19 04/03/19 1515:00 23:00 07:00 IntakeIntake Total 1120 ml 1320 ml OutputOutput Total 900 ml 1100 ml BalanceBalance 220 ml 220 ml Results Result Diagram: 04/01/1951104/01/19 05 Medications Medication Current Medications Acetaminophen (Tylenol Liquid) 650 mg Q4H PRN GTB MILD PAIN 1-3; Start 03/17/19 at 21:30 Bisacodyl (Dulcolax Supp) 10 mg DAILY PRN [place] CONSTIPATION; Start 03/17/19 at 21:00 Chlorhexidine Gluconate (Peridex) 15 ml Q12H MM Last administered on 04/03/19at 08:29; Admin Dose 15 ML; Start 03/17/19 at 21:00 Digoxin (Digoxin) 0.125 mg DAILY@13 PO Last administered on 04/02/19at 13:26; Ad min Dose 0.125 MG; Start 03/18/19 at 13:00 Docusate Sodium (Colace) 100 mg DAILY PO Last administered on 04/03/19 08:29; Admin Dose 100 MG; Start 03/18/19 at 09:00 Levetiracetam (Keppra Liquid) 250 mg Q12H GTB Last administered on 04/03/19 08:29; Admin Dose 250 MG; Start 03/17/19 at 21:00 Magnesium Hydroxide (Milk Of Mag) 30 ml DAILY PRN GTB CONSTIPATION; Start 03/17/19 at 21:00 Lansoprazole (Prevacid) 30 mg DAILY@06 GTB Last administered on 04/03/19 05:26; Admin Dose 30 MG; Start 03/18/19 at 06:00 Epoetin Amor-epbx (RETACRIT(non-esrd)) 40,000 unit We@1700 SC Last administered on 04/02/19 17:08; Admin Dose 40,000 UNIT; Start 03/19/19 at 17:00 Multivit/Ca Carb/ B Cmplx/FA/Prenat (Renee-Antonio) 1 tab DAILY GTB Last administered on 04/03/19 08:29; Admin Dose 1 TAB; Start 03/21/19 at 09:00 Zinc Sulfate (Zinc Sulfate) 220 mg DAILY GTB Last administered on 04/03/19 08:29; Admin Dose 220 MG; Start 03/21/19 at 09:00 Collagenase (Santyl) 1 applic BID TOP Last administered on 04/03/19 08:29; Admin Dose 1 APPLIC; Start 03/20/19 at 16:28 Vancomycin HCl (Vanco Iv Per Pharmacy) VANCOMYCIN PER PHARMACY PER PROTOCOL XX ; Start 03/23/19 at 06:30 Piperacillin Sod/ Tazobactam Sod 100 ml @ 200 mls/hr Q6 IVPB Last administered on 04/03/19 11:19; Admin Dose 200 MLS/HR; Start 03/23/19 at 06:30 Acetylcysteine (Mucomyst) 2 ml Q6H RESP THERAPY NEB Last administered on 04/03/19 14:48; Admin Dose 2 ML; Start 03/24/19 at 11:00 Levalbuterol (Xopenex Hfa) 2 puff Q6H RESP THERAPY INH Last administered on 04/03/19 14:48; Admin Dose 2 PUFF; Start 03/24/19 at 14:00 Triamcinolone Acetonide (Kenalog 0.1% Cr) 1 applic BID TOP Last administered on 04/03/19at 08:30; Admin Dose 1 APPLIC; Start 03/27/19 at 09:00 Vancomycin HCl 1.25 gm/Sodium Chloride 250 ml @ 83.333 mls/ hr Q48H IVPB Last administered on 04/02/19at 06:27; Admin Dose 83.333 MLS/HR; Start 03/31/19 at 06:00 Sodium Phosphate (Neutra-Phos) 250 mg BID GTB Last administered on 04/03/19at 08:29; Admin Dose 250 MG; Start 03/31/19 at 09:00 Metoprolol Tartrate (Lopressor) 25 mg Q8 GTB Last administered on 04/03/19at 05:27; Admin Dose 25 MG; Start 03/31/19 at 14:00 Benazepril HCl (Lotensin) 20 mg BID PO ; Start 04/03/19 at 21:00 DEBO UMANA NP April 03, 2019 15:45
--- NOTE | 2019-04-03 18:30 | CONS ---
Assessment/Plan Assessment/Plan Hospital Course (Demo Recall) IMP: 1.PVC-ongoing. EF 65% by echo 10/29. neg trop x 3 2.Bradycardia-to 50's 3.HTN-elevated 4.REsp failure-chronic s/p trach 5.SVT-short run. Again recurrent short run at approx 150-160 ? PAFL/AT 03/31. NO recurrence since increase to BB 6.anemia Recc: -Tele -Continue current BB -Continue curent ACEI dose -Continue abx's and f/u cx data -Continue digoxin -Continue mucomyst and bronchodilators Consultation Date/Type/Reason Admit Date/Time March 17, 2019 at 14:33 Initial Consult Date 03/18/19 Type of Consult Cardiology Reason for Consultation SVT Requesting Provider: IMER VARGAS Date/Time of Note DATE: 04/03/19 TIME: 18:29 Exam/Review of Systems Vital Signs Vitals Vital Signs Date Temp Pulse Resp B/P (MAP) Pulse Ox O2 O2 Flow FiO2 Time Delivery Rate 04/03/19 59 20 99 30 17:15 04/03/19 99.0 150/112 Mechanical 15:43 (125) Ventilator Intake and Output 04/02/19 04/02/19 04/03/19 1515:00 23:00 07:00 IntakeIntake Total 1120 ml 1320 ml OutputOutput Total 900 ml 1100 ml BalanceBalance 220 ml 220 ml Exam Exam Review of Systems: CONSTITUTIONAL: No fevers, chills. PULMONARY: No sob CARDIOVASCULAR: No chest pain/palpitations GASTROINTESTINAL: No nausea/vomiting. GENITOURINARY: No hematuria/dysuria. MUSCULOSKELETAL: No myagias/arthalgias. PSYCHIATRIC: The patient denies depression. NEUROLOGIC: No weakness Constitutional: other (sleeping) Psych: no complaints Head: normocephalic ENMT: mucosa pink and moist Neck: supple, jvd (9 cm water), other (trached) Respiratory: diminished breath sounds (at bases/B) Cardiovascular: regular rate and rhythm Gastrointestinal: soft, non-tender Musculoskeletal: muscle tone (normal) Extremities: edema (none) Neurological: confused, lethargic Labs Result Diagram: 04/01/1951104/01/19511 Medications Medications Current Medications Acetaminophen (Tylenol Liquid) 650 mg Q4H PRN GTB MILD PAIN 1-3; Start 03/17/19 at 21:30 Bisacodyl (Dulcolax Supp) 10 mg DAILY PRN [place] CONSTIPATION; Start 03/17/19 at 21:00 Chlorhexidine Gluconate (Peridex) 15 ml Q12H MM Last administered on 04/03/19 08:29; Admin Dose 15 ML; Start 03/17/19 at 21:00 Digoxin (Digoxin) 0.125 mg DAILY@13 PO Last administered on 04/02/19 13:26; Admin Dose 0.125 MG; Start 03/18/19 at 13:00 Docusate Sodium (Colace) 100 mg DAILY PO Last administered on 04/03/19 08:29; Admin Dose 100 MG; Start 03/18/19 at 09:00 Levetiracetam (Keppra Liquid) 250 mg Q12H GTB Last administered on 04/03/19 08:29; Admin Dose 250 MG; Start 03/17/19 at 21:00 Magnesium Hydroxide (Milk Of Mag) 30 ml DAILY PRN GTB CONSTIPATION; Start 03/17/19 at 21:00 Lansoprazole (Prevacid) 30 mg DAILY@06 GTB Last administered on 04/03/19 05:26; Admin Dose 30 MG; Start 03/18/19 at 06:00 Epoetin Amor-epbx (RETACRIT(non-esrd)) 40,000 unit We@1700 SC Last administered on 04/02/19 17:08; Admin Dose 40,000 UNIT; Start 03/19/19 at 17:00 Multivit/Ca Carb/ B Cmplx/FA/Prenat (Renee-Antonio) 1 tab DAILY GTB Last adm inistered on 04/03/19 08:29; Admin Dose 1 TAB; Start 03/21/19 at 09:00 Zinc Sulfate (Zinc Sulfate) 220 mg DAILY GTB Last administered on 04/03/19 08:29; Admin Dose 220 MG; Start 03/21/19 at 09:00 Collagenase (Santyl) 1 applic BID TOP Last administered on 04/03/19 08:29; Admin Dose 1 APPLIC; Start 03/20/19 at 16:28 Vancomycin HCl (Vanco Iv Per Pharmacy) VANCOMYCIN PER PHARMACY PER PROTOCOL XX ; Start 03/23/19 at 06:30 Piperacillin Sod/ Tazobactam Sod 100 ml @ 200 mls/hr Q6 IVPB Last administered on 04/03/19 17:30; Admin Dose 200 MLS/HR; Start 03/23/19 at 06:30 Acetylcysteine (Mucomyst) 2 ml Q6H RESP THERAPY NEB Last administered on 04/03/19 14:48; Admin Dose 2 ML; Start 03/24/19 at 11:00 Levalbuterol (Xopenex Hfa) 2 puff Q6H RESP THERAPY INH Last administered on 04/03/19 14:48; Admin Dose 2 PUFF; Start 03/24/19 at 14:00 Triamcinolone Acetonide (Kenalog 0.1% Cr) 1 applic BID TOP Last administered on 04/03/19 08:30; Admin Dose 1 APPLIC; Start 03/27/19 at 09:00 Vancomycin HCl 1.25 gm/Sodium Chloride 250 ml @ 83.333 mls/ hr Q48H IVPB Last administered on 04/02/19 06:27; Admin Dose 83.333 MLS/HR; Start 03/31/19 at 06:00 Sodium Phosphate (Neutra-Phos) 250 mg BID GTB Last administered on 04/03/19 08:29; Admin Dose 250 MG; Start 03/31/19 at 09:00 Metoprolol Tartrate (Lopressor) 25 mg Q8 GTB Last administered on 04/03/19 05:27; Admin Dose 25 MG; Start 03/31/19 at 14:00 Benazepril HCl (Lotensin) 20 mg BID PO ; Start 04/03/19 at 21:00 Miscellaneous Information (*Rx Drug Level Order Reminder*) VANCO TR LEVEL PRIOR... 0500 ONCE XX ; Start 04/04/19 at 05:00; Stop 04/04/19 at 05:01 LUIS FERGUSON April 03, 2019 18:30
[2019-04-03] MEDS: BENAZEPRIL 20 MG TAB PO SCH (20:55)
[2019-04-04] VITALS (22 sets, daily range): BP systolic 131–156; BP diastolic 61–75; PULSE 57–69; RESP 20–22
[2019-04-04] MEDS: LEVALBUTEROL (HFA) 15 GM INHALER INH SCH ×4 (01:54→19:35)
[2019-04-04] MEDS: ACETYLCYSTEINE 20% 4 ML VIAL NEB SCH ×4 (01:54→19:35)
[2019-04-04] MEDS: PIPER-TAZO 3.375 GM IV (PMX) 100 ML IVPB SCH ×5 (03:08→21:07)
[2019-04-04] MEDS: VANCOMYCIN HCL 1.25 GM in SOD CHLORIDE 0.9% 250 ML IVPB SCH (06:16)
[2019-04-04] MEDS: METOPROLOL 25 MG TAB GTB SCH ×3 (06:17→21:07)
[2019-04-04] MEDS: LANSOPRAZOLE 30 MG CAP GTB SCH (06:17)
[2019-04-04] MEDS: LEVETIRACETAM (100 MG/ML) 5ML CUP GTB SCH ×2 (09:00→21:06)
[2019-04-04] MEDS: ZINC SULFATE 220 MG CAP GTB SCH (09:00)
[2019-04-04] MEDS: DOCUSATE SODIUM 100 MG CAP PO SCH (09:00)
[2019-04-04] MEDS: MULTIVIT/CA CARB/B CMPLX/FA TAB GTB SCH (09:00)
[2019-04-04] MEDS: NEUTRA-PHOS 250 MG PACKET GTB SCH ×2 (09:00→21:06)
[2019-04-04] MEDS: CHLORHEXIDINE GLUCONATE 15 ML UD CUP MM SCH ×2 (09:00→21:06)
[2019-04-04] MEDS: COLLAGENASE 5 GM (UD JAR) TOP SCH ×2 (09:00→21:06)
[2019-04-04] MEDS: BENAZEPRIL 20 MG TAB PO SCH ×2 (09:01→21:08)
[2019-04-04] MEDS: TRIAMCINOLONE ACET 0.1% 15 GM CR TOP SCH ×2 (09:14→21:07)
--- NOTE | 2019-04-04 09:39 | PN ---
DATE: 04/04/2019 SUBJECTIVE: The patient is stable. No events overnight. OBJECTIVE: VITAL SIGNS: Blood pressure is 152/75, pulse 66, respirations 20, temperature 98.5. HEENT: Head is normocephalic. NECK: Supple. HEART: Regular rate. LUNGS: Show diminished breath sounds at the base. ABDOMEN: Soft, nontender to palpation without rebound or guarding. EXTREMITIES: Negative for clubbing, cyanosis, no edema. DERMATOLOGIC: No rashes. MUSCULOSKELETAL: No joint effusion. NEUROLOGIC: No change in exam. MEDICATIONS: Reviewed. LABORATORY DATA: Reviewed. ASSESSMENT AND PLAN: 1. Chronic kidney disease stage III. The patient's renal function is stable. Continue current alfonso tment plans, supportive care, and renally dose all medications. 2. Hypokalemia and hypomagnesemia, improved. 3. Mineral bone disorder, monitor calcium and phosphorus levels. 4. Anemia. Continue to monitor hemoglobin and hematocrit levels. 5. Hypertension. Continue current blood pressure regimen. 6. Ventilator-dependent respiratory failure. Vent settings have been reviewed. Continue to monitor . 7. Intraabdominal abscess. The patient is currently on antibiotic therapy. We will continue to mon itor. 8. Dysphagia. Continue tube feeding. 9. Chronic encephalopathy. No change. Dictated By: RAJINDER ATWOOD DO NR/NTS Conf#: [id number] DID#: [id number] CC: MENDEL FIELDS MD; JAYLEN LUGO MD;*EndCC*
--- NOTE | 2019-04-04 12:15 | CONS ---
Assessment/Plan Assessment/Plan Hospital Course (Demo Recall) No aute events overnight patient is noncommunicative in no distress afebrile Indwelling: Trach, PEG, Damon Antimicrobials: Vancomycin, Zosyn Physical examination: Chronically ill-appearing elderly woman in no distress. Head atraumatic normocephalic neck is supple tracheostomy present chest rise symmetrical breath sounds diminished bases. Heart: S1-S2. Abdomen soft bowel sounds present. Assessment: 1. Sigmoid diverticulosis with abscess 2. Left lower lobe atelectasis ? PNA 3. Chronic respiratory failure and dysphagia 4. Seizure disorder 5. Acute on chronic encephalopathy 6. Chronic kidney disease 7. Urinary tract infection as per urinalysis Plan: Remains unchanged, repeat CT noted, continue on IV abx indefinitely, family refused aggressive measures, pt is DNR >dc to SNF Consultation Date/Type/Reason Admit Date/Time March 17, 2019 at 14:33 Initial Consult Date 03/18/19 Type of Consult id Requesting Provider: IMER VARGAS Date/Time of Note DATE: 04/04/19 TIME: 12:14 Exam/Review of Systems Exam Vitals Vital Signs Date Temp Pulse Resp B/P (MAP) Pulse Ox O2 O2 Flow FiO2 Time Delivery Rate 04/04/19 97.9 61 20 142/62 100 Trach 11:22 (88) Collar 04/04/19 30 11:17 Intake and Output 04/03/19 04/03/19 04/04/19 1515:00 23:00 07:00 IntakeIntake Total 100 ml 820 ml 1220 ml OutputOutput Total 850 ml 1200 ml BalanceBalance 100 ml -30 ml 20 ml Results Result Diagram: 04/01/19 0512 04/04/19 0512 Results 24hrs Laboratory Tests Test 04/04/19 05:12 Blood Urea Nitrogen 17 Creatinine 0.75 Vancomycin Level Trough 12.1 Medications Medication Current Medications Acetaminophen (Tylenol Liquid) 650 mg Q4H PRN GTB MILD PAIN 1-3; Start 03/17/19 at 21:30 Bisacodyl (Dulcolax Supp) 10 mg DAILY PRN [place] CONSTIPATION; Start 03/17/19 at 21:00 Chlorhexidine Gluconate (Peridex) 15 ml Q12H MM Last administered on 04/04/19at 09:00; Admin Dose 15 ML; Start 03/17/19 at 21:00 Digoxin (Digoxin) 0.125 mg DAILY@13 PO Last administered on 04/02/19 13:26; Admin Dose 0.125 MG; Start 03/18/19 at 13:00 Docusate Sodium (Colace) 100 mg DAILY PO Last administered on 04/04/19 09:00; Admin Dose 100 MG; Start 03/18/19 at 09:00 Levetiracetam (Keppra Liquid) 250 mg Q12H GTB Last administered on 04/04/19 09:00; Admin Dose 250 MG; Start 03/17/19 at 21:00 Magnesium Hydroxide (Milk Of Mag) 30 ml DAILY PRN GTB CONSTIPATION; Start 03/17/19 at 21:00 Lansoprazole (Prevacid) 30 mg DAILY@06 GTB Last administered on 04/04/19 06:17; Admin Dose 30 MG; Start 03/18/19 at 06:00 Epoetin Amor-epbx (RETACRIT(non-esrd)) 40,000 unit We@1700 SC Last administered on 04/02/19 17:08; Admin Dose 40,000 UNIT; Start 03/19/19 at 17:00 Multivit/Ca Carb/ B Cmplx/FA/Prenat (Renee-Antonio) 1 tab DAILY GTB Last administered on 04/04/19 09:00; Admin Dose 1 TAB; Start 03/21/19 at 09:00 Zinc Sulfate (Zinc Sulfate) 220 mg DAILY GTB Last administered on 04/04/19 09 :00; Admin Dose 220 MG; Start 03/21/19 at 09:00 Collagenase (Santyl) 1 applic BID TOP Last administered on 04/04/19 09:00; Admin Dose 1 APPLIC; Start 03/20/19 at 16:28 Vancomycin HCl (Vanco Iv Per Pharmacy) VANCOMYCIN PER PHARMACY PER PROTOCOL XX ; Start 03/23/19 at 06:30 Piperacillin Sod/ Tazobactam Sod 100 ml @ 200 mls/hr Q6 IVPB Last administered on 04/04/19 11:35; Admin Dose 200 MLS/HR; Start 03/23/19 at 06:30 Acetylcysteine (Mucomyst) 2 ml Q6H RESP THERAPY NEB Last administered on 5/2 4/19at 08:17; Admin Dose 2 ML; Start 03/24/19 at 11:00 Levalbuterol (Xopenex Hfa) 2 puff Q6H RESP THERAPY INH Last administered on 04/04/19 08:16; Admin Dose 2 PUFF; Start 03/24/19 at 14:00 Triamcinolone Acetonide (Kenalog 0.1% Cr) 1 applic BID TOP Last administered on 04/04/19 09:14; Admin Dose 1 APPLIC; Start 03/27/19 at 09:00 Vancomycin HCl 1.25 gm/Sodium Chloride 250 ml @ 83.333 mls/ hr Q48H IVPB Last administered on 04/04/19 06:16; Admin Dose 83.333 MLS/HR; Start 03/31/19 at 06:00 Sodium Phosphate (Neutra-Phos) 250 mg BID GTB Last administered on 04/04/19 09:00; Admin Dose 250 MG; Start 03/31/19 at 09:00 Metoprolol Tartrate (Lopressor) 25 mg Q8 GTB Last administered on 04/04/19 06:17; Admin Dose 25 MG; Start 03/31/19 at 14:00 Benazepril HCl (Lotensin) 20 mg BID PO Last administered on 04/04/19 09:01; Admin Dose 20 MG; Start 04/03/19 at 21:00 DEBO UMANA NP April 04, 2019 12:15
[2019-04-04] MEDS: DIGOXIN 0.125 MG TAB PO SCH (12:50)
--- NOTE | 2019-04-04 14:41 | CONS ---
Assessment/Plan Assessment/Plan Hospital Course (Demo Recall) IMP: 1.PVC-ongoing. EF 65% by echo 10/29. neg trop x 3 2.Bradycardia-to 50's 3.HTN-elevated 4.REsp failure-chronic s/p trach 5.SVT-short run. Again recurrent short run at approx 150-160 ? PAFL/AT 03/31. NO recurrence since increase to BB 6.anemia Recc: -Tele -Continue current BB -Continue current ACEI dose -Continue abx's and f/u cx data -Continue digoxin as tolerted only given borderline Bradycardia -Continue mucomyst and bronchodilators Consultation Date/Type/Reason Admit Date/Time March 17, 2019 at 14:33 Initial Consult Date 03/18/19 Type of Consult Cardiology Reason for Consultation SVT Requesting Provider: IMER VARGAS Date/Time of Note DATE: 04/04/19 TIME: 14:39 Exam/Review of Systems Vital Signs Vitals Vital Signs Date Temp Pulse Resp B/P (MAP) Pulse Ox O2 O2 Flow FiO2 Time Delivery Rate 04/04/19 55 20 98 30 13:31 04/04/19 97.9 142/62 Trach 11:22 (88) Collar Intake and Output 04/03/19 04/03/19 04/04/19 1515:00 23:00 07:00 IntakeIntake Total 100 ml 820 ml 1220 ml OutputOutput Total 850 ml 1200 ml BalanceBalance 100 ml -30 ml 20 ml Exam Exam Review of Systems: CONSTITUTIONAL: No fevers, chills. PULMONARY: No sob CARDIOVASCULAR: No chest pain/palpitations GASTROINTESTINAL: No nausea/vomiting. GENITOURINARY: No hematuria/dysuria. MUSCULOSKELETAL: No myagias/arthalgias. PSYCHIATRIC: The patient denies depression. NEUROLOGIC: No weakness Constitutional: alert Psych: no complaints Head: normocephalic ENMT: mucosa pink and moist Neck: supple, jvd (9 cm water) Respiratory: diminished breath sounds Cardiovascular: regular rate and rhythm Gastrointestinal: soft, non-tender Musculoskeletal: muscle tone (normal) Extremities: edema (none) Neurological: other (No focal deficits) Labs Result Diagram: 04/01/19 0512 04/04/19 0512 Results 24hrs Laboratory Tests Test 04/04/19 05:12 Blood Urea Nitrogen 17 Creatinine 0.75 Vancomycin Level Trough 12.1 Medications Medications Current Medications Acetaminophen (Tylenol Liquid) 650 mg Q4H PRN GTB MILD PAIN 1-3; Start 03/17/19 at 21:30 Bisacodyl (Dulcolax Supp) 10 mg DAILY PRN [place] CONSTIPATION; Start 03/17/19 at 21:00 Chlorhexidine Gluconate (Peridex) 15 ml Q12H MM Last administered on 04/04/19 09:00; Admin Dose 15 ML; Start 03/17/19 at 21:00 Digoxin (Digoxin) 0.125 mg DAILY@13 PO Last administered on 04/02/19 13:26; Admin Dose 0.125 MG; Start 03/18/19 at 13:00 Docusate Sodium (Colace) 100 mg DAILY PO Last administered on 04/04/19 09:00; Admin Dose 100 MG; Start 03/18/19 at 09:00 Levetiracetam (Keppra Liquid) 250 mg Q12H GTB Last administered on 04/04/19 09:00; Admin Dose 250 MG; Start 03/17/19 at 21:00 Magnesium Hydroxide (Milk Of Mag) 30 ml DAILY PRN GTB CONSTIPATION; Start 03/17/19 at 21:00 Lansoprazole (Prevacid) 30 mg DAILY@06 GTB Last administered on 04/04/19 06:17; Admin Dose 30 MG; Start 03/18/19 at 06:00 Epoetin Amor-epbx (RETACRIT(non-esrd)) 40,000 unit We@1700 SC Last administered on 04/02/19 17:08; Admin Dose 40,000 UNIT; Start 03/19/19 at 17:00 Multivit/Ca Carb/ B Cmplx/FA/Prenat (Renee-Antonio) 1 tab DAILY GTB Last administered on 04/04/19 09:00; Admin Dose 1 TAB; Start 03/21/19 at 09:00 Zinc Sulfate (Zinc Sulfate) 220 mg DAILY GTB Last administered on 04/04/19 09:00; Admin Dose 220 MG; Start 03/21/19 at 09:00 Collagenase (Santyl) 1 applic BID TOP Last administered on 04/04/19 09:00; Admin Dose 1 APPLIC; Start 03/20/19 at 16:28 Vancomycin HCl (Vanco Iv Per Pharmacy) VANCOMYCIN PER PHARMACY PER PROTOCOL XX ; Start 03/23/19 at 06:30 Piperacillin Sod/ Tazobactam Sod 100 ml @ 200 mls/hr Q6 IVPB Last administered on 04/04/19 11:35; Admin Dose 200 MLS/HR; Start 03/23/19 at 06:30 Acetylcysteine (Mucomyst) 2 ml Q6H RESP THERAPY NEB Last administered on 04/04/19 13:23; Admin Dose 2 ML; Start 03/24/19 at 11:00 Levalbuterol (Xopenex Hfa) 2 puff Q6H RESP THERAPY INH Last administered on 04/04/19 13:23; Admin Dose 2 PUFF; Start 03/24/19 at 14:00 Triamcinolone Acetonide (Kenalog 0.1% Cr) 1 applic BID TOP Last administered on 04/04/19 09:14; Admin Dose 1 APPLIC; Start 03/27/19 at 09:00 Vancomycin HCl 1.25 gm/Sodium Chloride 250 ml @ 83.333 mls/ hr Q48H IVPB Last administered on 04/04/19 06:16; Admin Dose 83.333 MLS/HR; Start 03/31/19 at 06:00 Sodium Phosphate (Neutra-Phos) 250 mg BID GTB Last administered on 04/04/19 09:00; Admin Dose 250 MG; Start 03/31/19 at 09:00 Metoprolol Tartrate (Lopressor) 25 mg Q8 GTB Last administered on 04/04/19 06:17; Admin Dose 25 MG; Start 03/31/19 at 14:00 Benazepril HCl (Lotensin) 20 mg BID PO Last administered on 04/04/19 09:01; Admin Dose 20 MG; Start 04/03/19 at 21:00 LUIS FERGUSON April 04, 2019 14:41
--- NOTE | 2019-04-04 14:57 | CONS ---
Assessment/Plan Assessment/Plan Assessment/Plan (Daily) 73 yo female 1. Anemia of chronic disease --per DR Kiser note "pt is noted to have a macrocytic anemia which is mostly likely 2/2 underlying myelodysplastic syndrome" 2. Chronic kidney disease. 3. Hypertension. 4. Paroxysmal atrial fibrillation. 5. Cerebrovascular accident. 6. Possible meningioma. 7. Vent dependent respiratory failure. 8. Dysphagia, status post G-tube. 9. S/P colonoscopy 03/20 -found severe diverticulosis of left side of colon with spasm and poor prep 10. Walled off diverticular perforation abscess 11. Patient has good pneumobilia most probably related to prior sphincterotomy PLAN: Continue present care. Repeat CT scan after few weeks Radiologist cannot drain the abscess Consultation Date/Type/Reason Admit Date/Time March 17, 2019 at 14:33 Initial Consult Date 03/18/19 Requesting Provider: IMER VARGAS Date/Time of Note DATE: 04/04/19 TIME: 14:56 24 HR Interval Summary Subjective hx not possible: pt non-verbal Exam/Review of Systems Exam Vitals Vital Signs Date Temp Pulse Resp B/P (MAP) Pulse Ox O2 O2 Flow FiO2 Time Delivery Rate 04/04/19 55 20 98 30 13:31 04/04/19 97.9 142/62 Trach 11:22 (88) Collar Intake and Output 04/03/19 04/03/19 04/04/19 1515:00 23:00 07:00 IntakeIntake Total 100 ml 820 ml 1220 ml OutputOutput Total 850 ml 1200 ml BalanceBalance 100 ml -30 ml 20 ml Constitutional: non-verbal ENMT: intubated Respiratory: diminished breath sounds Cardiovascular: nl pulses Musculoskeletal: nl extremities to inspection, nl gait and stance Extremities: normal pulses Results Result Diagram: 04/01/19 0512 04/04/19 0512 Results 24hrs Laboratory Tests Test 04/04/19 05:12 Blood Urea Nitrogen 17 Creatinine 0.75 Vancomycin Level Trough 12.1 Medications Medication Current Medications Acetaminophen (Tylenol Liquid) 650 mg Q4H PRN GTB MILD PAIN 1-3; Start 03/17/19 at 21:30 Bisacodyl (Dulcolax Supp) 10 mg DAILY PRN [place] CONSTIPATION; Start 03/17/19 at 21:00 Chlorhexidine Gluconate (Peridex) 15 ml Q12H MM Last administered on 04/04/19 09:00; Admin Dose 15 ML; Start 03/17/19 at 21:00 Digoxin (Digoxin) 0.125 mg DAILY@13 PO Last administered on 04/02/19 13:26; Admin Dose 0.125 MG; Start 03/18/19 at 13:00 Docusate Sodium (Colace) 100 mg DAILY PO Last administered on 04/04/19 09:00; Admin Dose 100 MG; Start 03/18/19 at 09:00 Levetiracetam (Keppra Liquid) 250 mg Q12H GTB Last administered on 04/04/19 09:00; Admin Dose 250 MG; Start 03/17/19 at 21:00 Magnesium Hydroxide (Milk Of Mag) 30 ml DAILY PRN GTB CONSTIPATION; Start 03/17/19 at 21:00 Lansoprazole (Prevacid) 30 mg DAILY@06 GTB Last administered on 04/04/19 06:17; Admin Dose 30 MG; Start 03/18/19 at 06:00 Epoetin Amor-epbx (RETACRIT(non-esrd)) 40,000 unit We@1700 SC Last administered on 04/02/19 17:08; Admin Dose 40,000 UNIT; Start 03/19/19 at 17:00 Multivit/Ca Carb/ B Cmplx/FA/Prenat (Renee-Antonio) 1 tab DAILY GTB Last administered on 04/04/19 09:00; Admin Dose 1 TAB; Start 03/21/19 at 09:00 Zinc Sulfate (Zinc Sulfate) 220 mg DAILY GTB Last administered on 04/04/19 09: 00; Admin Dose 220 MG; Start 03/21/19 at 09:00 Collagenase (Santyl) 1 applic BID TOP Last administered on 04/04/19 09:00; Admin Dose 1 APPLIC; Start 03/20/19 at 16:28 Vancomycin HCl (Vanco Iv Per Pharmacy) VANCOMYCIN PER PHARMACY PER PROTOCOL XX ; Start 03/23/19 at 06:30 Piperacillin Sod/ Tazobactam Sod 100 ml @ 200 mls/hr Q6 IVPB Last administered on 04/04/19 11:35; Admin Dose 200 MLS/HR; Start 03/23/19 at 06:30 Acetylcysteine (Mucomyst) 2 ml Q6H RESP THERAPY NEB Last administered on 04/04 13:23; Admin Dose 2 ML; Start 03/24/19 at 11:00 Levalbuterol (Xopenex Hfa) 2 puff Q6H RESP THERAPY INH Last administered on 04/04/19 13:23; Admin Dose 2 PUFF; Start 03/24/19 at 14:00 Triamcinolone Acetonide (Kenalog 0.1% Cr) 1 applic BID TOP Last administered on 04/04/19 09:14; Admin Dose 1 APPLIC; Start 03/27/19 at 09:00 Vancomycin HCl 1.25 gm/Sodium Chloride 250 ml @ 83.333 mls/ hr Q48H IVPB Last administered on 04/04/19 06:16; Admin Dose 83.333 MLS/HR; Start 03/31/19 at 06:00 Sodium Phosphate (Neutra-Phos) 250 mg BID GTB Last administered on 04/04/19 09:00; Admin Dose 250 MG; Start 03/31/19 at 09:00 Metoprolol Tartrate (Lopressor) 25 mg Q8 GTB Last administered on 04/04/19 06:17; Admin Dose 25 MG; Start 03/31/19 at 14:00 Benazepril HCl (Lotensin) 20 mg BID PO Last administered on 04/04/19 09:01; Admin Dose 20 MG; Start 04/03/19 at 21:00 TYSON ALICEA MD April 04, 2019 14:57
--- NOTE | 2019-04-04 18:50 | PN ---
Date/Time of Note Date/Time of Note DATE: 04/04/19 TIME: 18:48 Assessment/Plan Lines/Catheters IV Catheter Type (from [facility]): Peripheral IV Damon in Place (from [facility]): Yes Assessment/Plan Chief Complaint/Hosp Course 1. Sigmoid diverticulosis with a focal area of abnormal wall thickening of the proximal sigmoid colon with an adjacent gas containing fluid collection measuring 3.1 x 3.2 x 8.5 cm extending along the left iliopsoas/iliacus muscles. This could represent peridiverticular abscess/contained perforation. Not drainable per IR. Family does not want aggressive measures (OR). s/p abx per ID; repeat ct noted -supportive -nutritional optimization -abx per id -dc planning ok from surgical standpoint 2. Anemia: No overt bleed noted -Monitor and transfuse as needed -Per hematology 3. VDRF: -Pulmonary toilet -Vent management per pulmonary 4. CKD -Limit nephrotoxic meds -Renally dose meds -Per renal 5. Atrial fibrillation history -Rate control 6. Heart failure: -Cardiac optimization 7. Dysphagia with PEG placement -Continue tube feeds with aspiration precautions Thank you. Patient seen and examined in collaboration with Dr. Harry Mario. Subjective [address] noted. No significant change. No fevers, labored breathing, congested cough, vomiting, diarrhea. Exam/Review of Systems Vital Signs Vitals Vital Signs Date Temp Pulse Resp B/P (MAP) Pulse Ox O2 O2 Flow FiO2 Time Delivery Rate 04/04/19 60 20 98 30 17:07 04/04/19 98.1 140/66 Trach 15:32 (90) Collar Intake and Output 04/03/19 04/03/19 04/04/19 1515:00 23:00 07:00 IntakeIntake Total 100 ml 820 ml 1220 ml OutputOutput Total 850 ml 1200 ml BalanceBalance 100 ml -30 ml 20 ml Exam Free Text/Dictation Constitutional: alert; No oriented, No distress Psych: nl mood/affect Head: normocephalic, atraumatic Eyes: nl conjunctiva, EOMI, nl lids, nl sclera ENMT: nl external ears & nose, nl lips & teeth, mucosa pink and moist Neck: supple, non-tender, other (Tracheostomy) Respiratory: normal air movement, other (Vent); No congested cough Cardiovascular: s1s2 Gastrointestinal: soft, non-tender, other (PEG); No distended Genitourinary - Female: nl external genitalia Musculoskeletal: nl extremities to inspection, nl gait and stance Extremities: normal pulses; No edema Neurological: No nl mental status, No nl speech (Nonverbal, noncommunicative), No nl strength, No focal weakness Skin: No rash or lesions Results Result Diagram: 04/01/19 0512 04/04/19 0512 EULA HICKMAN NP April 04, 2019 18:50
--- NOTE | 2019-04-04 19:02 | PN ---
DATE: 04/04/2019 SUBJECTIVE: Followup on severe diverticulosis with walled off diverticular perforation and abscess, respiratory failure, COPD, paroxysmal atrial fibrillation, anemia, most likely due to underlying myel odysplastic syndrome, CVA. The patient remains nonverbal, no reported fever or chills. No reported vomiting. The patient is tolerating G-tube feeding well. No reported abdominal distention. PHYSICAL EXAMINATION: GENERAL: The patient is lethargic, currently on vent. VITAL SIGNS: Temperature 97.9, pulse 55 to 61, respiration 20, blood pressure 142/62, O2 saturation 100% on FiO2 of 30%. HEENT: No eye discharge or redness. Nose and ears normal. NECK: Trach is in place. CHEST: Diminished air entry bilaterally. CARDIOVASCULAR: S1, S2 normal, no murmur. ABDOMEN: Soft, nondistended, nontender. EXTREMITIES: No edema. NEUROLOGIC: The patient is lethargic but arousable; however, does not follow any commands. IMPRESSION: 1. COPD and respiratory failure. Continue vent support and breathing treatment. Continue IV antibi otic as per infectious disease. The patient is currently on vancomycin and Zosyn. 2. Paroxysmal atrial fibrillation. Patient is currently on digoxin and metoprolol. The patient is being seen by Dr. Hernandez' group. The patient also remains on digoxin. I spoke with patient's daughter, Yoon and updated her regarding patient's condition and plan of c are. The patient is ready to be discharged to ____; however, her previous subacute does not have bed . Prognosis for meaningful recovery remains poor. I have explained that the patient's daughter on m ultiple occasions. Dictated By: JAYLEN VILLA/NTS Conf#: [id number] DID#: [id number] CC: MENDEL FIELDS MD;*EndCC*
[2019-04-05] VITALS (23 sets, daily range): BP systolic 130–155; BP diastolic 61–69; PULSE 56–72; RESP 18–20
[2019-04-05] MEDS: LEVALBUTEROL (HFA) 15 GM INHALER INH SCH ×4 (01:17→20:26)
[2019-04-05] MEDS: ACETYLCYSTEINE 20% 4 ML VIAL NEB SCH ×4 (01:17→20:26)
[2019-04-05] MEDS: METOPROLOL 25 MG TAB GTB SCH ×4 (05:43→23:42)
[2019-04-05] MEDS: PIPER-TAZO 3.375 GM IV (PMX) 100 ML IVPB SCH ×3 (05:43→17:03)
[2019-04-05] MEDS: LANSOPRAZOLE 30 MG CAP GTB SCH (05:43)
--- NOTE | 2019-04-05 08:59 | PN ---
DATE: 04/05/2019 SUBJECTIVE: The patient is stable, no events overnight. OBJECTIVE: VITAL SIGNS: Blood pressure is 153/69, respirations 19, pulse 63, temperature 98.6. HEENT: Head is normocephalic. NECK: Supple. HEART: Regular rate. LUNGS: Show diminished breath sounds at the base. ABDOMEN: Soft, nontender to palpation without rebound or guarding. EXTREMITIES: Negative for clubbing, cyanosis, no edema. DERMATOLOGIC: No rashes. MUSCULOSKELETAL: No joint effusion. NEUROLOGIC: No change in exam. MEDICATIONS: Reviewed. LABORATORY DATA: Reviewed. ASSESSMENT AND PLAN: 1. Chronic kidney disease, stage III. The patient's renal function is stable. Continue current rosibel atment plan, supportive care, renally dose all medications. 2. Hypokalemia and hypomagnesemia, improved. 3. Mineral bone disorder, monitor calcium and phosphorus levels. 4. Anemia. Continue to monitor hemoglobin and hematocrit levels. 5. Hypertension. Continue current blood pressure regimen. 6. Ventilator-dependent respiratory failure. Vent settings have been reviewed. Continue to monitor . 7. Intraabdominal abscess. Continue current antibiotic regimen. 8. Dysphagia. Continue tube feeding. 9. Chronic encephalopathy. No change. Dictated By: RAJINDER ATWOOD DO NR/NTS Conf#: [id number] DID#: [id number] CC: JAYLEN LUGO MD; MENDEL FIELDS MD;*EndCC*
[2019-04-05] MEDS: CHLORHEXIDINE GLUCONATE 15 ML UD CUP MM SCH ×2 (09:09→21:11)
[2019-04-05] MEDS: LEVETIRACETAM (100 MG/ML) 5ML CUP GTB SCH ×2 (09:09→20:53)
[2019-04-05] MEDS: MULTIVIT/CA CARB/B CMPLX/FA TAB GTB SCH (09:09)
[2019-04-05] MEDS: NEUTRA-PHOS 250 MG PACKET GTB SCH ×2 (09:09→20:54)
[2019-04-05] MEDS: COLLAGENASE 5 GM (UD JAR) TOP SCH ×2 (09:09→21:11)
[2019-04-05] MEDS: ZINC SULFATE 220 MG CAP GTB SCH (09:10)
[2019-04-05] MEDS: TRIAMCINOLONE ACET 0.1% 15 GM CR TOP SCH ×2 (09:10→21:12)
[2019-04-05] MEDS: DOCUSATE SODIUM 100 MG CAP PO SCH (09:10)
[2019-04-05] MEDS: BENAZEPRIL 20 MG TAB PO SCH ×2 (09:15→20:56)
[2019-04-05] MEDS: DIGOXIN 0.125 MG TAB PO SCH (12:28)
--- NOTE | 2019-04-05 14:30 | CONS ---
Assessment/Plan Assessment/Plan Hospital Course (Demo Recall) IMP: 1.PVC-ongoing. EF 65% by echo 10/29. neg trop x 3 2.Bradycardia-to 50's 3.HTN-elevated 4.REsp failure-chronic s/p trach 5.SVT-short run. Again recurrent short run at approx 150-160 ? PAFL/AT 03/31. NO recurrence since increase to BB 6.anemia Recc: -Tele -Continue current BB -Continue current ACEI dose -Continue abx's and f/u cx data -Continue digoxin as tolerated only -Continue mucomyst and bronchodilators Consultation Date/Type/Reason Admit Date/Time March 17, 2019 at 14:33 Initial Consult Date 03/18/19 Type of Consult Cardiology Reason for Consultation SVT Requesting Provider: IMER VARGAS Date/Time of Note DATE: 04/05/19 TIME: 14:29 Exam/Review of Systems Vital Signs Vitals Vital Signs Date Temp Pulse Resp B/P (MAP) Pulse Ox O2 O2 Flow FiO2 Time Delivery Rate 04/05/19 60 12:10 04/05/19 30 12:00 04/05/19 98.1 20 130/61 99 11:15 (84) 04/04/19 Trach 15:32 Collar Intake and Output 04/04/19 04/04/19 04/05/19 1515:00 23:00 07:00 IntakeIntake Total 350 ml 200 ml 1270 ml OutputOutput Total 1100 ml 1600 ml BalanceBalance 350 ml -900 ml -330 ml Exam Exam Review of Systems: CONSTITUTIONAL: No fevers, chills. PULMONARY: No sob CARDIOVASCULAR: No chest pain/palpitations GASTROINTESTINAL: No nausea/vomiting. GENITOURINARY: No hematuria/dysuria. MUSCULOSKELETAL: No myagias/arthalgias. PSYCHIATRIC: The patient denies depression. NEUROLOGIC: No weakness Constitutional: other (sleping) Psych: no complaints, confusion Head: normocephalic ENMT: mucosa pink and moist Neck: supple, jvd, other (trached) Respiratory: diminished breath sounds (at bases/B) Cardiovascular: regular rate and rhythm Gastrointestinal: soft, non-tender Musculoskeletal: muscle weakness (generalized) Extremities: edema (none) Neurological: other (No focal deficits) Labs Result Diagram: 04/05/19 0530 04/05/19 0530 Results 24hrs Laboratory Tests Test 04/05/19 05:30 White Blood Count 7.9 # Red Blood Count 3.40 L Hemoglobin 10.7 #L Hematocrit 35.2 L Mean Corpuscular Volume 103.5 H Mean Corpuscular Hemoglobin 31.5 Mean Corpuscular Hemoglobin Concent 30.4 L Red Cell Distribution Width 18.1 H Platelet Count 231 Mean Platelet Volume 9.3 Immature Granulocytes % 0.600 H Neutrophils % 72.1 Lymphocytes % 19.2 Monocytes % 4.3 Eosinophils % 3.4 Basophils % 0.4 Nucleated Red Blood Cells % 0.0 Immature Granulocytes # 0.050 H Neutrophils # 5.7 Lymphocytes # 1.5 Monocytes # 0.3 Eosinophils # 0.3 Basophils # 0.0 Nucleated Red Blood Cells # 0.0 Sodium Level 138 Potassium Level 4.5 Chloride Level 108 Carbon Dioxide Level 24 Anion Gap 6 Blood Urea Nitrogen 16 Creatinine 0.78 Est Glomerular Filtrat Rate mL/min Glucose Level 84 Calcium Level 8.6 Phosphorus Level 4.1 Medications Medications Current Medications Acetaminophen (Tylenol Liquid) 650 mg Q4H PRN GTB MILD PAIN 1-3; Start 03/17/19 at 21:30 Bisacodyl (Dulcolax Supp) 10 mg DAILY PRN [place] CONSTIPATION; Start 03/17/19 at 21:00 Chlorhexidine Gluconate (Peridex) 15 ml Q12H MM Last administered on 04/05/19at 09:09; Admin Dose 15 ML; Start 03/17/19 at 21:00 Digoxin (Digoxin) 0.125 mg DAILY@13 PO Last administered on 04/05/19at 12:28; Admin Dose 0.125 MG; Start 03/18/19 at 13:00 Docusate Sodium (Colace) 100 mg DAILY PO Last administered on 04/05/19 09:10; Admin Dose 100 MG; Start 03/18/19 at 09:00 Levetiracetam (Keppra Liquid) 250 mg Q12H GTB Last administered on 04/05/19 09:09; Admin Dose 250 MG; Start 03/17/19 at 21:00 Magnesium Hydroxide (Milk Of Mag) 30 ml DAILY PRN GTB CONSTIPATION; Start 03/17/19 at 21:00 Lansoprazole (Prevacid) 30 mg DAILY@06 GTB Last administered on 04/05/19 05:43; Admin Dose 30 MG; Start 03/18/19 at 06:00 Epoetin Amor-epbx (RETACRIT(non-esrd)) 40,000 unit We@1700 SC Last administered on 04/02/19 17:08; Admin Dose 40,000 UNIT; Start 03/19/19 at 17:00 Multivit/Ca Carb/ B Cmplx/FA/Prenat (Renee-Antonio) 1 tab DAILY GTB Last administered on 04/05/19 09:09; Admin Dose 1 TAB; Start 03/21/19 at 09:00 Zinc Sulfate (Zinc Sulfate) 220 mg DAILY GTB Last administered on 04/05/19 09:10; Admin Dose 220 MG; Start 03/21/19 at 09:00 Collagenase (Santyl) 1 applic BID TOP Last administered on 04/05/19 09:09; Admin Dose 1 APPLIC; Start 03/20/19 at 16:28 Vancomycin HCl (Vanco Iv Per Pharmacy) VANCOMYCIN PER PHARMACY PER PROTOCOL XX ; Start 03/23/19 at 06:30 Piperacillin Sod/ Tazobactam Sod 100 ml @ 200 mls/hr Q6 IVPB Last administered on 04/05/19 10:58; Admin Dose 200 MLS/HR; Start 03/23/19 at 06:30 Acetylcysteine (Mucomyst) 2 ml Q6H RESP THERAPY NEB Last administered on 04/05/19 13:03; Admin Dose 2 ML; Start 03/24/19 at 11:00 Levalbuterol (Xopenex Hfa) 2 puff Q6H RESP THERAPY INH Last administered on 04/05/19 13:02; Admin Dose 2 PUFF; Start 03/24/19 at 14:00 Triamcinolone Acetonide (Kenalog 0.1% Cr) 1 applic BID TOP Last administered on 04/05/19 09:10; Admin Dose 1 APPLIC; Start 03/27/19 at 09:00 Vancomycin HCl 1.25 gm/Sodium Chloride 250 ml @ 83.333 mls/ hr Q48H IVPB Last administered on 04/04/19 06:16; Admin Dose 83.333 MLS/HR; Start 03/31/19 at 06:00 Sodium Phosphate (Neutra-Phos) 250 mg BID GTB Last administered on 04/05/19 09:09; Admin Dose 250 MG; Start 03/31/19 at 09:00 Metoprolol Tartrate (Lopressor) 25 mg Q8 GTB Last administered on 04/05/19 13:46; Admin Dose 25 MG; Start 03/31/19 at 14:00 Benazepril HCl (Lotensin) 20 mg BID PO Last administered on 04/05/19 09:15; Admin Dose 20 MG; Start 04/03/19 at 21:00 LUIS FERGUSON April 05, 2019 14:30
--- NOTE | 2019-04-05 18:48 | CONS ---
Assessment/Plan Assessment/Plan Hospital Course (Demo Recall) ID NOTE CURRENT ABX: DAY #14 = VANCO IV + ZOSYN 24H INTERVAL SUMMARY * Resting -- VSS, NAD, looks comfortable -- (+)Diverticulosis on colonoscopy w/abscess, no surgery per family * CT ABD revealing diverticulitis w/small abscess -- started on broad spectrum IV ABX for conservative tx RADIOLOGY IMAGING REPORTS * 03/21/19 CT ABD-PEL: * 1. Sigmoid diverticulosis with a focal area of abnormal wall thickening of the proximal sigmoid colon with an adjacent gas containing fluid collection measuring 3.1 x 3.2 x 8.5 cm extending along the left iliopsoas/iliacus muscles. This could represent peridiverticular abscess/contained perforation. No additional fluid collection is identified in the remainder of the abdomen. * 2. Complete atelectasis of the left lower lobe. Query mucus plugging. Consider bronchoscopy for further evaluation. * 3. Unchanged left adrenal nodule. * 4. Cholelithiasis. * 5. Splenomegaly. * 6. Peg tube is in satisfactory position. * 7. Multiple bilateral renal cysts. * 8. Aortoiliac vascular calcifications with no aneurysmal dilatation. * 03/17/19 CXR: IMPRESSION:Chronic interstitial changes throughout the lungs.Small right pleural effusion.Calcified aorta consistent with atherosclerotic disease. * 03/17/[address] * 1. No intracranial hemorrhage, mass effect or midline shift. * 2. Moderate generalized atrophy. Severe chronic microangiopathic ischemic change. * 3. Multiple areas of chronic infarcts in the right parietal, occipital and temporal lobes. * 4. Intracranial atherosclerosis. * 5. Unchanged left parietal convexity parafalcine presumed meningiomas. Microbiology * NONE THIS ADMISSION * PER REVIEW PRIOR ADMISSION: * Hx of (+)VRE Stool Colonization * Hx of GNR Trach pathogen colonization PHYSICAL EXAMINATION: GENERAL: Afebrile, VSS, opens eyes, nonverbal, chronically ill-appearing HEENT: AT, NC, anicteric NECK: Supple,(+)TRACH secure CHEST: Equal chest rise bilaterally, without dyspnea on observation HEART: Pulse RRR ABDOMEN: Soft EXTREMITIES: Warm, dry, Bilateral lower extremities edema SKIN: no diaphoresis ID ASSESSMENT 73 yo MORBID OBESE F admit with 1. SIRS w/ low grade temps, leukocytosis, transient low b/p 90/44 2. Diverticulitis w/small abscess on CT * 03/21/19 CT ABD-PEL: Sigmoid diverticulosis with a focal area of abnormal wall thickening of the proximal sigmoid colon with an adjacent gas containing fluid collection measuring 3.1 x 3.2 x 8.5 cm extending along the left iliopsoas/iliacus muscles. This could represent peridiverticular abscess/contained perforation. 3. Encephalopathy secondary to hx of CVA 4. Seizure disorder/w/hx of prior status epilepticus 5. Status post healthcare associated pneumonia * CT evidence 03/21/19: Complete atelectasis of the left lower lobe. Query mucus plugging. Consider bronchoscopy for further evaluation. 6. Hx of GNR Tracheobronchitis == Polymicrobial GNR trach colonization 7. Chronic respiratory failure=> (+)Trach * COPD Emphysema * Interstitial Lung Disease * (+)PHTN 8. Hx of PRIOR Bilateral superficial venous thrombus within the cephalic veins. 9. Hx of Bilateral lower extremity cellulitis, likely acute on chronic 10. Hx of Breast folds = moisture yeast dermatitis 11. Atrial fibrillation. 12. Hx of CHF w/pulmonary edema and BLEXT edema 13. Anemia. 14. Dysphagia ABX ALLERGIES: KNDA CURRENT ABX: DAY #14=> VANCO IV + ZOSYN ID RECOMMENDATIONS Started on appropriate ABX Continue current ABX -- still w/concern ABSCESS - no surgery per family . Consultation Date/Type/Reason Admit Date/Time March 17, 2019 at 14:33 Initial Consult Date 03/18/19 Requesting Provider: IMER VARGAS Date/Time of Note DATE: 04/05/19 TIME: 18:45 Exam/Review of Systems Exam Vitals Vital Signs Date Temp Pulse Resp B/P (MAP) Pulse Ox O2 O2 Flow FiO2 Time Delivery Rate 04/05/19 60 20 97 30 17:15 04/05/19 98.3 139/65 15:54 (89) 04/04/19 Trach 15:32 Collar Intake and Output 04/04/19 04/04/19 04/05/19 1515:00 23:00 07:00 IntakeIntake Total 350 ml 200 ml 1270 ml OutputOutput Total 1100 ml 1600 ml BalanceBalance 350 ml -900 ml -330 ml Results Result Diagram: 04/05/19 0530 04/05/19 0530 Results 24hrs Laboratory Tests Test 04/05/19 05:30 White Blood Count 7.9 # Red Blood Count 3.40 L Hemoglobin 10.7 #L Hematocrit 35.2 L Mean Corpuscular Volume 103.5 H Mean Corpuscular Hemoglobin 31.5 Mean Corpuscular Hemoglobin Concent 30.4 L Red Cell Distribution Width 18.1 H Platelet Count 231 Mean Platelet Volume 9.3 Immature Granulocytes % 0.600 H Neutrophils % 72.1 Lymphocytes % 19.2 Monocytes % 4.3 Eosinophils % 3.4 Basophils % 0.4 Nucleated Red Blood Cells % 0.0 Immature Granulocytes # 0.050 H Neutrophils # 5.7 Lymphocytes # 1.5 Monocytes # 0.3 Eosinophils # 0.3 Basophils # 0.0 Nucleated Red Blood Cells # 0.0 Sodium Level 138 Potassium Level 4.5 Chloride Level 108 Carbon Dioxide Level 24 Anion Gap 6 Blood Urea Nitrogen 16 Creatinine 0.78 Est Glomerular Filtrat Rate mL/min Glucose Level 84 Calcium Level 8.6 Phosphorus Level 4.1 Medications Medication Current Medications Acetaminophen (Tylenol Liquid) 650 mg Q4H PRN GTB MILD PAIN 1-3; Start 03/17/19 at 21:30 Bisacodyl (Dulcolax Supp) 10 mg DAILY PRN [place] CONSTIPATION; Start 03/17/19 at 21:00 Chlorhexidine Gluconate (Peridex) 15 ml Q12H MM Last administered on 04/05/19at 09:09; Admin Dose 15 ML; Start 03/17/19 at 21:00 Digoxin (Digoxin) 0.125 mg DAILY@13 PO Last administered on 04/05/19at 12:28; Admin Dose 0.125 MG; Start 03/18/19 at 13:00 Docusate Sodium (Colace) 100 mg DAILY PO Last administered on 04/05/19 09:10; Admin Dose 100 MG; Start 03/18/19 at 09:00 Levetiracetam (Keppra Liquid) 250 mg Q12H GTB Last administered on 04/05/19 09:09; Admin Dose 250 MG; Start 03/17/19 at 21:00 Magnesium Hydroxide (Milk Of Mag) 30 ml DAILY PRN GTB CONSTIPATION; Start 03/17/19 at 21:00 Lansoprazole (Prevacid) 30 mg DAILY@06 GTB Last administered on 04/05/19at 05:43; Admin Dose 30 MG; Start 03/18/19 at 06:00 Epoetin Amor-epbx (RETACRIT(non-esrd)) 40,000 unit We@1700 SC Last administered on 04/02/19 17:08; Admin Dose 40,000 UNIT; Start 03/19/19 at 17:00 Multivit/Ca Carb/ B Cmplx/FA/Prenat (Renee-Antonio) 1 tab DAILY GTB Last ad ministered on 04/05/19 09:09; Admin Dose 1 TAB; Start 03/21/19 at 09:00 Zinc Sulfate (Zinc Sulfate) 220 mg DAILY GTB Last administered on 04/05/19 09:10; Admin Dose 220 MG; Start 03/21/19 at 09:00 Collagenase (Santyl) 1 applic BID TOP Last administered on 04/05/19 09:09; Admin Dose 1 APPLIC; Start 03/20/19 at 16:28 Vancomycin HCl (Vanco Iv Per Pharmacy) VANCOMYCIN PER PHARMACY PER PROTOCOL XX ; Start 03/23/19 at 06:30 Piperacillin Sod/ Tazobactam Sod 100 ml @ 200 mls/hr Q6 IVPB Last administered on 04/05/19 17:03; Admin Dose 200 MLS/HR; Start 03/23/19 at 06:30 Acetylcysteine (Mucomyst) 2 ml Q6H RESP THERAPY NEB Last administered on 04/05/19 13:03; Admin Dose 2 ML; Start 03/24/19 at 11:00 Levalbuterol (Xopenex Hfa) 2 puff Q6H RESP THERAPY INH Last administered on 04/05/19 13:02; Admin Dose 2 PUFF; Start 03/24/19 at 14:00 Triamcinolone Acetonide (Kenalog 0.1% Cr) 1 applic BID TOP Last administered on 04/05/19 09:10; Admin Dose 1 APPLIC; Start 03/27/19 at 09:00 Vancomycin HCl 1.25 gm/Sodium Chloride 250 ml @ 83.333 mls/ hr Q48H IVPB Last administered on 04/04/19 06:16; Admin Dose 83.333 MLS/HR; Start 03/31/19 at 06:00 Sodium Phosphate (Neutra-Phos) 250 mg BID GTB Last administered on 04/05/19 09:09; Admin Dose 250 MG; Start 03/31/19 at 09:00 Metoprolol Tartrate (Lopressor) 25 mg Q8 GTB Last administered on 04/05/19 13:46; Admin Dose 25 MG; Start 03/31/19 at 14:00 Benazepril HCl (Lotensin) 20 mg BID PO Last administered on 04/05/19 09:15; Admin Dose 20 MG; Start 04/03/19 at 21:00 ELIAS CORONEL NP April 05, 2019 18:48
--- NOTE | 2019-04-05 21:34 | PN ---
Date/Time of Note Date/Time of Note DATE: 04/05/19 TIME: 21:33 Assessment/Plan VTE Prophylaxis Risk score (from [facility])>0 risk: 7 SCD applied (from [facility]): Yes SCD contraindicated: other Pharmacological prophylaxis: other Pharm contraindication: other Lines/Catheters IV Catheter Type (from [facility]): Peripheral IV Urinary Cath still in place: Yes Reason Cath still needed: urinary retention Assessment/Plan Assessment/Plan - COPD and respiratory failure. Continue vent support and breathing treatment. -Diverticular abscess, Dr Mario is following in surgical consultation. Abscess is too small for drainage by IR. Family did not want any surgical intervention. Plan to repeat CT in 2 weeks. Continue antibiotics. Per ID patient is currently on Vanco and Zosyn. Dr. Melendez is following in infection disease consultation. -Paroxysmal atrial fibrillation. Patient is currently on digoxin and meto prolol. The patient is being seen by Dr. Hernandez' group. The patient also remains on digoxin. -Severe diverticulosis with spasm per colonoscopy -Anemia, rule out GI bleed. Dr. Galdamez is following in gastroenterology consultation. Dr. Kiser is following in hematology consultation -Ventilator dependent respiratory failure with tracheostomy. Dr. Davenport is following in pulmonology consultation. -Acute on chronic kidney disease. Monitor BUN and creatinine. Dr. Grant is following in nephrology consultation -Diastolic congestive heart failure. Dr. Hernandez is following in cardiology consultation. -Pulmonary fibrosis, continue Pulmicort. -Dysphagia with G-tube. -Chronic encephalopathy -COPD -History of CVA, continue aspirin. -Seizure disorder/status epilepticus. Continue Keppra and Ativan as needed. -MRSA nares colonization Further recommendations based on clinical course. Plan of care discussed with Dr. Phillips. no events overnight per staff Result Diagram: 04/05/19 0530 04/05/19 0530 Results 24hrs Laboratory Tests Test 04/05/19 05:30 White Blood Count 7.9 # Red Blood Count 3.40 L Hemoglobin 10.7 #L Hematocrit 35.2 L Mean Corpuscular Volume 103.5 H Mean Corpuscular Hemoglobin 31.5 Mean Corpuscular Hemoglobin Concent 30.4 L Red Cell Distribution Width 18.1 H Platelet Count 231 Mean Platelet Volume 9.3 Immature Granulocytes % 0.600 H Neutrophils % 72.1 Lymphocytes % 19.2 Monocytes % 4.3 Eosinophils % 3.4 Basophils % 0.4 Nucleated Red Blood Cells % 0.0 Immature Granulocytes # 0.050 H Neutrophils # 5.7 Lymphocytes # 1.5 Monocytes # 0.3 Eosinophils # 0.3 Basophils # 0.0 Nucleated Red Blood Cells # 0.0 Sodium Level 138 Potassium Level 4.5 Chloride Level 108 Carbon Dioxide Level 24 Anion Gap 6 Blood Urea Nitrogen 16 Creatinine 0.78 Est Glomerular Filtrat Rate mL/min Glucose Level 84 Calcium Level 8.6 Phosphorus Level 4.1 Subjective 24 Hr Interval Summary Free Text/Dictation no events overnight per staff Subjective hx not possible: pt non-verbal Constitutional: requiring O2 Exam/Review of Systems Exam Vitals Vital Signs Date Temp Pulse Resp B/P (MAP) Pulse Ox O2 O2 Flow FiO2 Time Delivery Rate 04/05/19 62 20:58 04/05/19 20 98 30 20:22 04/05/19 99.7 142/67 20:00 (92) 04/04/19 Trach 15:32 Collar Intake and Output 04/04/19 04/04/19 04/05/19 1515:00 23:00 07:00 IntakeIntake Total 350 ml 200 ml 1270 ml OutputOutput Total 1100 ml 1600 ml BalanceBalance 350 ml -900 ml -330 ml Results Results 24hrs Laboratory Tests Test 04/05/19 05:30 White Blood Count 7.9 # Red Blood Count 3.40 L Hemoglobin 10.7 #L Hematocrit 35.2 L Mean Corpuscular Volume 103.5 H Mean Corpuscular Hemoglobin 31.5 Mean Corpuscular Hemoglobin Concent 30.4 L Red Cell Distribution Width 18.1 H Platelet Count 231 Mean Platelet Volume 9.3 Immature Granulocytes % 0.600 H Neutrophils % 72.1 Lymphocytes % 19.2 Monocytes % 4.3 Eosinophils % 3.4 Basophils % 0.4 Nucleated Red Blood Cells % 0.0 Immature Granulocytes # 0.050 H Neutrophils # 5.7 Lymphocytes # 1.5 Monocytes # 0.3 Eosinophils # 0.3 Basophils # 0.0 Nucleated Red Blood Cells # 0.0 Sodium Level 138 Potassium Level 4.5 Chloride Level 108 Carbon Dioxide Level 24 Anion Gap 6 Blood Urea Nitrogen 16 Creatinine 0.78 Est Glomerular Filtrat Rate mL/min Glucose Level 84 Calcium Level 8.6 Phosphorus Level 4.1 Medications Medication Current Medications Acetaminophen (Tylenol Liquid) 650 mg Q4H PRN GTB MILD PAIN 1-3; Start 03/17/19 at 21:30 Bisacodyl (Dulcolax Supp) 10 mg DAILY PRN [place] CONSTIPATION; Start 03/17/19 at 21:00 Chlorhexidine Gluconate (Peridex) 15 ml Q12H MM Last administered on 04/05/19 21:11; Admin Dose 15 ML; Start 03/17/19 at 21:00 Digoxin (Digoxin) 0.125 mg DAILY@13 PO Last administered on 04/05/19 12:28; Admin Dose 0.125 MG; Start 03/18/19 at 13:00 Docusate Sodium (Colace) 100 mg DAILY PO Last administered on 04/05/19 09:10; Admin Dose 100 MG; Start 03/18/19 at 09:00 Levetiracetam (Keppra Liquid) 250 mg Q12H GTB Last administered on 04/05/19 20:53; Admin Dose 250 MG; Start 03/17/19 at 21:00 Magnesium Hydroxide (Milk Of Mag) 30 ml DAILY PRN GTB CONSTIPATION; Start 03/17/19 at 21:00 Lansoprazole (Prevacid) 30 mg DAILY@06 GTB Last administered on 04/05/19 05:43; Admin Dose 30 MG; Start 03/18/19 at 06:00 Epoetin Amor-epbx (RETACRIT(non-esrd)) 40,000 unit We@1700 SC Last administered on 04/02/19 17:08; Admin Dose 40,000 UNIT; Start 03/19/19 at 17:00 Multivit/Ca Carb/ B Cmplx/FA/Prenat (Renee-Antonio) 1 tab DAILY GTB Last administered on 04/05/19 09:09; Admin Dose 1 TAB; Start 03/21/19 at 09:00 Zinc Sulfate (Zinc Sulfate) 220 mg DAILY GTB Last administered on 04/05/19 09:10; Admin Dose 220 MG; Start 03/21/19 at 09:00 Collagenase (Santyl) 1 applic BID TOP Last administered on 04/05/19 21:11; Admin Dose 1 APPLIC; Start 03/20/19 at 16:28 Vancomycin HCl (Vanco Iv Per Pharmacy) VANCOMYCIN PER PHARMACY PER PROTOCOL XX ; Start 03/23/19 at 06:30 Piperacillin Sod/ Tazobactam Sod 100 ml @ 200 mls/hr Q6 IVPB Last administered on 04/05/19 17:03; Admin Dose 200 MLS/HR; Start 03/23/19 at 06:30 Acetylcysteine (Mucomyst) 2 ml Q6H RESP THERAPY NEB Last administered on 04/05/19 20:26; Admin Dose 2 ML; Start 03/24/19 at 11:00 Levalbuterol (Xopenex Hfa) 2 puff Q6H RESP THERAPY INH Last administered on 04/05/19 20:26; Admin Dose 2 PUFF; Start 03/24/19 at 14:00 Triamcinolone Acetonide (Kenalog 0.1% Cr) 1 applic BID TOP Last administered on 04/05/19 21:12; Admin Dose 1 APPLIC; Start 03/27/19 at 09:00 Vancomycin HCl 1.25 gm/Sodium Chloride 250 ml @ 83.333 mls/ hr Q48H IVPB Last administered on 04/04/19 06:16; Admin Dose 83.333 MLS/HR; Start 03/31/19 at 06:00 Sodium Phosphate (Neutra-Phos) 250 mg BID GTB Last administered on 04/05/19 20:54; Admin Dose 250 MG; Start 03/31/19 at 09:00 Metoprolol Tartrate (Lopressor) 25 mg Q8 GTB Last administered on 04/05/19 13:46; Admin Dose 25 MG; Start 03/31/19 at 14:00 Benazepril HCl (Lotensin) 20 mg BID PO Last administered on 04/05/19 20:56; Admin Dose 20 MG; Start 04/03/19 at 21:00 FRANCESCO SIU April 05, 2019 21:33
[2019-04-06] VITALS (23 sets, daily range): BP systolic 132–141; BP diastolic 62–68; PULSE 58–70; RESP 17–20
[2019-04-06] MEDS: PIPER-TAZO 3.375 GM IV (PMX) 100 ML IVPB SCH ×5 (00:48→23:13)
[2019-04-06] MEDS: ACETYLCYSTEINE 20% 4 ML VIAL NEB SCH ×5 (01:25→21:37)
[2019-04-06] MEDS: LEVALBUTEROL (HFA) 15 GM INHALER INH SCH ×5 (01:25→21:37)
[2019-04-06] MEDS: LANSOPRAZOLE 30 MG CAP GTB SCH (06:13)
[2019-04-06] MEDS: VANCOMYCIN HCL 1.25 GM in SOD CHLORIDE 0.9% 250 ML IVPB SCH (06:13)
[2019-04-06] MEDS: METOPROLOL 25 MG TAB GTB SCH ×3 (06:20→23:09)
--- NOTE | 2019-04-06 07:56 | PN ---
Date/Time of Note Date/Time of Note DATE: 04/06/19 TIME: 07:56 Assessment/Plan VTE Prophylaxis Risk score (from [facility])>0 risk: 7 SCD applied (from [facility]): Yes SCD contraindicated: other Pharmacological prophylaxis: other Pharm contraindication: other Lines/Catheters IV Catheter Type (from [facility]): Peripheral IV Urinary Cath still in place: Yes Reason Cath still needed: urinary retention Assessment/Plan Assessment/Plan - COPD and respiratory failure. Continue vent support and breathing treatment. -Diverticular abscess, Dr Mario is following in surgical consultation. Abscess is too small for drainage by IR. Family did not want any surgical intervention. Plan to repeat CT in 2 weeks. Continue antibiotics. Per ID patient is currently on Vanco and Zosyn. Dr. Melendez is following in infection disease consultation. -Paroxysmal atrial fibrillation. Patient is currently on digoxin and meto prolol. The patient is being seen by Dr. Hernandez' group. The patient also remains on digoxin. -Severe diverticulosis with spasm per colonoscopy -Anemia, rule out GI bleed. Dr. Galdamez is following in gastroenterology consultation. Dr. Kiser is following in hematology consultation -Ventilator dependent respiratory failure with tracheostomy. Dr. Davenport is following in pulmonology consultation. -Acute on chronic kidney disease. Monitor BUN and creatinine. Dr. Grant is following in nephrology consultation -Diastolic congestive heart failure. Dr. Hernandez is following in cardiology consultation. -Pulmonary fibrosis, continue Pulmicort. -Dysphagia with G-tube. -Chronic encephalopathy -COPD -History of CVA, continue aspirin. -Seizure disorder/status epilepticus. Continue Keppra and Ativan as needed. -MRSA nares colonization Further recommendations based on clinical course. Plan of care discussed with Dr. Phillips. Result Diagram: 04/06/19 0504 04/06/19 0504 Results 24hrs Laboratory Tests Test 04/06/19 05:04 White Blood Count 5.7 # Red Blood Count 3.15 L Hemoglobin 9.7 L Hematocrit 32.5 L Mean Corpuscular Volume 103.2 H Mean Corpuscular Hemoglobin 30.8 Mean Corpuscular Hemoglobin Concent 29.8 L Red Cell Distribution Width 18.1 H Platelet Count 231 Mean Platelet Volume 9.3 Immature Granulocytes % 0.500 H Neutrophils % 62.0 Lymphocytes % 26.7 Monocytes % 6.0 Eosinophils % 4.4 Basophils % 0.4 Nucleated Red Blood Cells % 0.0 Immature Granulocytes # 0.030 Neutrophils # 3.5 Lymphocytes # 1.5 Monocytes # 0.3 Eosinophils # 0.3 Basophils # 0.0 Nucleated Red Blood Cells # 0.0 Sodium Level 139 Potassium Level 4.1 Chloride Level 109 Carbon Dioxide Level 25 Anion Gap 5 Blood Urea Nitrogen 17 Creatinine 0.82 Est Glomerular Filtrat Rate mL/min Glucose Level 93 Calcium Level 8.6 Subjective 24 Hr Interval Summary Free Text/Dictation no events overnight per staff Subjective hx not possible: pt non-verbal Constitutional: requiring IVF, requiring O2 Exam/Review of Systems Exam Vitals Vital Signs Date Temp Pulse Resp B/P (MAP) Pulse Ox O2 O2 Flow FiO2 Time Delivery Rate 04/06/19 68 20 98 30 07:49 04/06/19 98.2 132/62 07:39 (85) 04/04/19 Trach 15:32 Collar Intake and Output 04/05/19 04/05/19 04/06/19 1515:00 23:00 07:00 IntakeIntake Total 1260 ml OutputOutput Total 1400 ml 1150 ml BalanceBalance -1400 ml 110 ml Constitutional: non-verbal, frail Psych: nl mood/affect Eyes: nl lids ENMT: nl external ears & nose Neck: other (jack inatct) Respiratory: clear to auscultation Cardiovascular: nl pulses, other (s1s2) Gastrointestinal: soft, non-tender, other (gt intact) Musculoskeletal: muscle weakness, range of motion Extremities: normal pulses Neurological: confused Skin: other Results Results 24hrs Laboratory Tests Test 04/06/19 05:04 White Blood Count 5.7 # Red Blood Count 3.15 L Hemoglobin 9.7 L Hematocrit 32.5 L Mean Corpuscular Volume 103.2 H Mean Corpuscular Hemoglobin 30.8 Mean Corpuscular Hemoglobin Concent 29.8 L Red Cell Distribution Width 18.1 H Platelet Count 231 Mean Platelet Volume 9.3 Immature Granulocytes % 0.500 H Neutrophils % 62.0 Lymphocytes % 26.7 Monocytes % 6.0 Eosinophils % 4.4 Basophils % 0.4 Nucleated Red Blood Cells % 0.0 Immature Granulocytes # 0.030 Neutrophils # 3.5 Lymphocytes # 1.5 Monocytes # 0.3 Eosinophils # 0.3 Basophils # 0.0 Nucleated Red Blood Cells # 0.0 Sodium Level 139 Potassium Level 4.1 Chloride Level 109 Carbon Dioxide Level 25 Anion Gap 5 Blood Urea Nitrogen 17 Creatinine 0.82 Est Glomerular Filtrat Rate mL/min Glucose Level 93 Calcium Level 8.6 Medications Medication Current Medications Acetaminophen (Tylenol Liquid) 650 mg Q4H PRN GTB MILD PAIN 1-3; Start 03/17/19 at 21:30 Bisacodyl (Dulcolax Supp) 10 mg DAILY PRN [place] CONSTIPATION; Start 03/17/19 at 21:00 Chlorhexidine Gluconate (Peridex) 15 ml Q12H MM Last administered on 04/05/19 21:11; Admin Dose 15 ML; Start 03/17/19 at 21:00 Digoxin (Digoxin) 0.125 mg DAILY@13 PO Last administered on 04/05/19 12:28; Admin Dose 0.125 MG; Start 03/18/19 at 13:00 Docusate Sodium (Colace) 100 mg DAILY PO Last administered on 04/05/19 09:10; Admin Dose 100 MG; Start 03/18/19 at 09:00 Levetiracetam (Keppra Liquid) 250 mg Q12H GTB Last administered on 04/05/19 20:53; Admin Dose 250 MG; Start 03/17/19 at 21:00 Magnesium Hydroxide (Milk Of Mag) 30 ml DAILY PRN GTB CONSTIPATION; Start 03/17/19 at 21:00 Lansoprazole (Prevacid) 30 mg DAILY@06 GTB Last administered on 04/06/19 06:13; Admin Dose 30 MG; Start 03/18/19 at 06:00 Epoetin Amor-epbx (RETACRIT(non-esrd)) 40,000 unit We@1700 SC Last administered on 04/02/19 17:08; Admin Dose 40,000 UNIT; Start 03/19/19 at 17:00 Multivit/Ca Carb/ B Cmplx/FA/Prenat (Renee-Antonio) 1 tab DAILY GTB Last administered on 04/05/19 09:09; Admin Dose 1 TAB; Start 03/21/19 at 09:00 Zinc Sulfate (Zinc Sulfate) 220 mg DAILY GTB Last administered on 04/05/19 09:10; Admin Dose 220 MG; Start 03/21/19 at 09:00 Collagenase (Santyl) 1 applic BID TOP Last administered on 04/05/19 21:11; Admin Dose 1 APPLIC; Start 03/20/19 at 16:28 Vancomycin HCl (Vanco Iv Per Pharmacy) VANCOMYCIN PER PHARMACY PER PROTOCOL XX ; Start 03/23/19 at 06:30 Piperacillin Sod/ Tazobactam Sod 100 ml @ 200 mls/hr Q6 IVPB Last administered on 04/06/19 05:05; Admin Dose 200 MLS/HR; Start 03/23/19 at 06:30 Acetylcysteine (Mucomyst) 2 ml Q6H RESP THERAPY NEB Last administered on 04/06/19 01:25; Admin Dose 2 ML; Start 03/24/19 at 11:00 Levalbuterol (Xopenex Hfa) 2 puff Q6H RESP THERAPY INH Last administered on 04/06/19 01:25; Admin Dose 2 PUFF; Start 03/24/19 at 14:00 Triamcinolone Acetonide (Kenalog 0.1% Cr) 1 applic BID TOP Last administered on 04/05/19 21:12; Admin Dose 1 APPLIC; Start 03/27/19 at 09:00 Vancomycin HCl 1.25 gm/Sodium Chloride 250 ml @ 83.333 mls/ hr Q48H IVPB Last administered on 04/06/19 06:13; Admin Dose 83.333 MLS/HR; Start 03/31/19 at 06:00 Sodium Phosphate (Neutra-Phos) 250 mg BID GTB Last administered on 04/05/19 20:54; Admin Dose 250 MG; Start 03/31/19 at 09:00 Metoprolol Tartrate (Lopressor) 25 mg Q8 GTB Last administered on 04/06/19 06:20; Admin Dose 25 MG; Start 03/31/19 at 14:00 Benazepril HCl (Lotensin) 20 mg BID PO Last administered on 04/05/19 20:56; Admin Dose 20 MG; Start 04/03/19 at 21:00 FRANCESCO SIU April 06, 2019 07:56
[2019-04-06] MEDS: MULTIVIT/CA CARB/B CMPLX/FA TAB GTB SCH (09:10)
[2019-04-06] MEDS: COLLAGENASE 5 GM (UD JAR) TOP SCH ×2 (09:11→20:56)
[2019-04-06] MEDS: BENAZEPRIL 20 MG TAB PO SCH ×2 (09:11→20:56)
[2019-04-06] MEDS: NEUTRA-PHOS 250 MG PACKET GTB SCH ×2 (09:11→20:52)
[2019-04-06] MEDS: DOCUSATE SODIUM 100 MG CAP PO SCH (09:11)
[2019-04-06] MEDS: ZINC SULFATE 220 MG CAP GTB SCH (09:11)
[2019-04-06] MEDS: CHLORHEXIDINE GLUCONATE 15 ML UD CUP MM SCH ×2 (09:12→23:09)
[2019-04-06] MEDS: TRIAMCINOLONE ACET 0.1% 15 GM CR TOP SCH ×2 (09:14→23:09)
[2019-04-06] MEDS: LEVETIRACETAM (100 MG/ML) 5ML CUP GTB SCH ×2 (09:24→20:51)
--- NOTE | 2019-04-06 10:40 | PN ---
DATE: 04/06/2019 SUBJECTIVE: The patient is stable. No events overnight. OBJECTIVE: VITAL SIGNS: Blood pressure is 132/62, respirations 20, pulse 58, temperature 98.2. HEENT: Head is normocephalic. NECK: Supple. HEART: Regular rate. LUNGS: Show diminished breath sounds at the base. ABDOMEN: Soft, nontender to palpation without rebound or guarding. EXTREMITIES: Negative for clubbing, cyanosis, no edema. DERMATOLOGIC: No rashes. MUSCULOSKELETAL: No joint effusion. NEUROLOGIC: No change in exam. MEDICATIONS: The patient's medications have been reviewed. LABORATORY DATA: Has been reviewed. ASSESSMENT AND PLAN: 1. Chronic kidney disease, stage III. Renal function stable. Continue current treatment plan, supp ortive care, renally dose all medication. 2. Hypokalemia and hypomagnesemia, improved. Continue to monitor. 3. Mineral bone disorder, monitor calcium and phosphorus levels. 4. Anemia. Monitor hemoglobin and hematocrit levels. 5. Hypertension. Continue current blood pressure regimen. 6. Ventilator-dependent respiratory failure. Vent settings have been reviewed. Continue to monitor . 7. Intraabdominal abscess. The patient is being treated with IV antibiotics. Will continue. 8. Dysphagia. Continue tube feeding. 9. Chronic encephalopathy. No change. Dictated By: RAJINDER ATWOOD DO NR/NTS Conf#: [id number] DID#: [id number] CC: JAYLEN LUGO MD; MENDEL FIELDS MD;*End*
[2019-04-06] MEDS: DIGOXIN 0.125 MG TAB PO SCH (12:19)
--- NOTE | 2019-04-06 15:06 | CONS ---
Assessment/Plan Assessment/Plan Hospital Course (Demo Recall) ID NOTE CURRENT ABX: DAY #15 = VANCO IV + ZOSYN 24H INTERVAL SUMMARY * Chronic encephalopathy -- VSS, NAD, looks comfortable -- (+)Diverticulosis on colonoscopy w/abscess, no surgery per family * CT ABD revealing diverticulitis w/small abscess -- started on broad spectrum IV ABX for conservative tx RADIOLOGY IMAGING REPORTS * 03/21/19 CT ABD-PEL: * 1. Sigmoid diverticulosis with a focal area of abnormal wall thickening of the proximal sigmoid colon with an adjacent gas containing fluid collection measuring 3.1 x 3.2 x 8.5 cm extending along the left iliopsoas/iliacus muscles. This could represent peridiverticular abscess/contained perforation. No additional fluid collection is identified in the remainder of the abdomen. * 2. Complete atelectasis of the left lower lobe. Query mucus plugging. Consider bronchoscopy for further evaluation. * 3. Unchanged left adrenal nodule. * 4. Cholelithiasis. * 5. Splenomegaly. * 6. Peg tube is in satisfactory position. * 7. Multiple bilateral renal cysts. * 8. Aortoiliac vascular calcifications with no aneurysmal dilatation. * 03/17/19 CXR: IMPRESSION:Chronic interstitial changes throughout the lisa gs.Small right pleural effusion.Calcified aorta consistent with atherosclerotic disease. * 03/17/[address] * 1. No intracranial hemorrhage, mass effect or midline shift. * 2. Moderate generalized atrophy. Severe chronic microangiopathic ischemic change. * 3. Multiple areas of chronic infarcts in the right parietal, occipital and temporal lobes. * 4. Intracranial atherosclerosis. * 5. Unchanged left parietal convexity parafalcine presumed meningiomas. Microbiology * NONE THIS ADMISSION * PER REVIEW PRIOR ADMISSION: * Hx of (+)VRE Stool Colonization * Hx of GNR Trach pathogen colonization PHYSICAL EXAMINATION: GENERAL: Afebrile, VSS, opens eyes, nonverbal, chronically ill-appearing HEENT: AT, NC, anicteric NECK: Supple,(+)TRACH secure CHEST: Equal chest rise bilaterally, without dyspnea on observation HEART: Pulse RRR ABDOMEN: Soft EXTREMITIES: Warm, dry, Bilateral lower extremities edema SKIN: no diaphoresis ID ASSESSMENT 73 yo MORBID OBESE F admit with 1. SIRS w/ low grade temps, leukocytosis, transient low b/p 90/44 2. Diverticulitis w/small abscess on CT * 03/21/19 CT ABD-PEL: Sigmoid diverticulosis with a focal area of abnormal wall thickening of the proximal sigmoid colon with an adjacent gas containing fluid collection measuring 3.1 x 3.2 x 8.5 cm extending along the left iliopsoas/iliacus muscles. This could represent peridiverticular abscess/contained perforation. 3. Encephalopathy secondary to hx of CVA 4. Seizure disorder/w/hx of prior status epilepticus 5. Status post healthcare associated pneumonia * CT evidence 03/21/19: Complete atelectasis of the left lower lobe. Query mucus plugging. Consider bronchoscopy for further evaluation. 6. Hx of GNR Tracheobronchitis == Polymicrobial GNR trach colonization 7. Chronic respiratory failure=> (+)Trach * COPD Emphysema * Interstitial Lung Disease * (+)PHTN 8. Hx of PRIOR Bilateral superficial venous thrombus within the cephalic veins. 9. Hx of Bilateral lower extremity cellulitis, likely acute on chronic 10. Hx of Breast folds = moisture yeast dermatitis 11. Atrial fibrillation. 12. Hx of CHF w/pulmonary edema and BLEXT edema 13. Anemia. 14. Dysphagia ABX ALLERGIES: KNDA CURRENT ABX: DAY #15=> VANCO IV + ZOSYN ID RECOMMENDATIONS Started on appropriate ABX Continue current ABX -- still w/concern ABSCESS - no surgery per family . Consultation Date/Type/Reason Admit Date/Time March 17, 2019 at 14:33 Initial Consult Date 03/18/19 Requesting Provider: IMER VARGAS Date/Time of Note DATE: 04/06/19 TIME: 15:04 Exam/Review of Systems Exam Vitals Vital Signs Date Temp Pulse Resp B/P (MAP) Pulse Ox O2 O2 Flow FiO2 Time Delivery Rate 04/06/19 58 20 100 30 14:49 04/06/19 98.7 135/63 11:40 (87) 04/04/19 Trach 15:32 Collar Intake and Output 04/05/19 04/05/19 04/06/19 1515:00 23:00 07:00 IntakeIntake Total 1260 ml OutputOutput Total 1400 ml 1150 ml BalanceBalance -1400 ml 110 ml Results Result Diagram: 04/06/19 0504 04/06/19 0504 Results 24hrs Laboratory Tests Test 04/06/19 05:04 White Blood Count 5.7 # Red Blood Count 3.15 L Hemoglobin 9.7 L Hematocrit 32.5 L Mean Corpuscular Volume 103.2 H Mean Corpuscular Hemoglobin 30.8 Mean Corpuscular Hemoglobin Concent 29.8 L Red Cell Distribution Width 18.1 H Platelet Count 231 Mean Platelet Volume 9.3 Immature Granulocytes % 0.500 H Neutrophils % 62.0 Lymphocytes % 26.7 Monocytes % 6.0 Eosinophils % 4.4 Basophils % 0.4 Nucleated Red Blood Cells % 0.0 Immature Granulocytes # 0.030 Neutrophils # 3.5 Lymphocytes # 1.5 Monocytes # 0.3 Eosinophils # 0.3 Basophils # 0.0 Nucleated Red Blood Cells # 0.0 Sodium Level 139 Potassium Level 4.1 Chloride Level 109 Carbon Dioxide Level 25 Anion Gap 5 Blood Urea Nitrogen 17 Creatinine 0.82 Est Glomerular Filtrat Rate mL/min Glucose Level 93 Calcium Level 8.6 Medications Medication Current Medications Acetaminophen (Tylenol Liquid) 650 mg Q4H PRN GTB MILD PAIN 1-3; Start 03/17/19 at 21:30 Bisacodyl (Dulcolax Supp) 10 mg DAILY PRN [place] CONSTIPATION; Start 03/17/19 at 21:00 Chlorhexidine Gluconate (Peridex) 15 ml Q12H MM Last administered on 04/06/19at 09:12; Admin Dose 15 ML; Start 03/17/19 at 21:00 Digoxin (Digoxin) 0.125 mg DAILY@13 PO Last administered on 04/06/19at 12:19; Admin Dose 0.125 MG; Start 03/18/19 at 13:00 Docusate Sodium (Colace) 100 mg DAILY PO Last administered on 04/06/19at 09:11; Admin Dose 100 MG; Start 03/18/19 at 09:00 Levetiracetam (Keppra Liquid) 250 mg Q12H GTB Last administered on 04/06/19at 09:24; Admin Dose 250 MG; Start 03/17/19 at 21:00 Magnesium Hydroxide (Milk Of Mag) 30 ml DAILY PRN GTB CONSTIPATION; Start 03/17/19 at 21:00 Lansoprazole (Prevacid) 30 mg DAILY@06 GTB Last administered on 04/06/19at 06:13; Admin Dose 30 MG; Start 03/18/19 at 06:00 Epoetin Amor-epbx (RETACRIT(non-esrd)) 40,000 unit We@1700 SC Last administered on 04/02/19 17:08; Admin Dose 40,000 UNIT; Start 03/19/19 at 17:00 Multivit/Ca Carb/ B Cmplx/FA/Prenat (Renee-Antonio) 1 tab DAILY GTB Last administered on 04/06/19 09:10; Admin Dose 1 TAB; Start 03/21/19 at 09:00 Zinc Sulfate (Zinc Sulfate) 220 mg DAILY GTB Last administered on 04/06/19 09:11; Admin Dose 220 MG; Start 03/21/19 at 09:00 Collagenase (Santyl) 1 applic BID TOP Last administered on 04/06/19 09:11; Admin Dose 1 APPLIC; Start 03/20/19 at 16:28 Vancomycin HCl (Vanco Iv Per Pharmacy) VANCOMYCIN PER PHARMACY PER PROTOCOL XX ; Start 03/23/19 at 06:30 Piperacillin Sod/ Tazobactam Sod 100 ml @ 200 mls/hr Q6 IVPB Last administered on 04/06/19 12:20; Admin Dose 200 MLS/HR; Start 03/23/19 at 06:30 Acetylcysteine (Mucomyst) 2 ml Q6H RESP THERAPY NEB Last administered on 04/06/19 14:31; Admin Dose 2 ML; Start 03/24/19 at 11:00 Levalbuterol (Xopenex Hfa) 2 puff Q6H RESP THERAPY INH Last administered on 04/06/19 14:31; Admin Dose 2 PUFF; Start 03/24/19 at 14:00 Triamcinolone Acetonide (Kenalog 0.1% Cr) 1 applic BID TOP Last administered on 04/06/19 09:14; Admin Dose 1 APPLIC; Start 03/27/19 at 09:00 Vancomycin HCl 1.25 gm/Sodium Chloride 250 ml @ 83.333 mls/ hr Q48H IVPB Last administered on 04/06/19 06:13; Admin Dose 83.333 MLS/HR; Start 03/31/19 at 06:00 Sodium Phosphate (Neutra-Phos) 250 mg BID GTB Last administered on 04/06/19 09:11; Admin Dose 250 MG; Start 03/31/19 at 09:00 Metoprolol Tartrate (Lopressor) 25 mg Q8 GTB Last administered on 04/06/19at 06:20; Admin Dose 25 MG; Start 03/31/19 at 14:00 Benazepril HCl (Lotensin) 20 mg BID PO Last administered on 04/06/19at 09:11; Admin Dose 20 MG; Start 04/03/19 at 21:00 ELIAS CORONEL NP April 06, 2019 15:06
--- NOTE | 2019-04-06 15:27 | CONS ---
Assessment/Plan Assessment/Plan Hospital Course (Demo Recall) IMP: 1.PVC-ongoing. EF 65% by echo 10/29. neg trop x 3 2.Bradycardia-to 50's 3.HTN-elevated 4.REsp failure-chronic s/p trach 5.SVT-short run. Again recurrent short run at approx 150-160 ? PAFL/AT 03/31. NO recurrence since increase to BB 6.anemia Recc: -Tele -Continue current BB as tolerated only -Continue current ACEI dose -Continue abx's and f/u cx data -Continue digoxin as tolerated only -Continue mucomyst and bronchodilators Consultation Date/Type/Reason Admit Date/Time March 17, 2019 at 14:33 Initial Consult Date 03/18/19 Type of Consult Cardiology Reason for Consultation SVT Requesting Provider: IMER VARGAS Date/Time of Note DATE: 04/06/19 TIME: 15:26 Exam/Review of Systems Vital Signs Vitals Vital Signs Date Temp Pulse Resp B/P (MAP) Pulse Ox O2 O2 Flow FiO2 Time Delivery Rate 04/06/19 58 20 100 30 14:49 04/06/19 98.7 135/63 11:40 (87) 04/04/19 Trach 15:32 Collar Intake and Output 04/05/19 04/05/19 04/06/19 1515:00 23:00 07:00 IntakeIntake Total 1260 ml OutputOutput Total 1400 ml 1150 ml BalanceBalance -1400 ml 110 ml Exam Exam Review of Systems: CONSTITUTIONAL: No fevers, chills. PULMONARY: No sob CARDIOVASCULAR: No chest pain/palpitations GASTROINTESTINAL: No nausea/vomiting. GENITOURINARY: No hematuria/dysuria. MUSCULOSKELETAL: No myagias/arthalgias. PSYCHIATRIC: The patient denies depression. NEUROLOGIC: No weakness Constitutional: other (encephalopathic) Psych: no complaints Head: normocephalic ENMT: mucosa pink and moist Neck: supple, jvd (9 cm water), other (trached) Respiratory: diminished breath sounds (at bases/B) Cardiovascular: regular rate and rhythm Gastrointestinal: soft, non-tender Musculoskeletal: muscle tone (normal) Extremities: edema (none) Neurological: other (No focal deficits) Labs Result Diagram: 04/06/19 0504 04/06/19 0504 Results 24hrs Laboratory Tests Test 04/06/19 05:04 White Blood Count 5.7 # Red Blood Count 3.15 L Hemoglobin 9.7 L Hematocrit 32.5 L Mean Corpuscular Volume 103.2 H Mean Corpuscular Hemoglobin 30.8 Mean Corpuscular Hemoglobin Concent 29.8 L Red Cell Distribution Width 18.1 H Platelet Count 231 Mean Platelet Volume 9.3 Immature Granulocytes % 0.500 H Neutrophils % 62.0 Lymphocytes % 26.7 Monocytes % 6.0 Eosinophils % 4.4 Basophils % 0.4 Nucleated Red Blood Cells % 0.0 Immature Granulocytes # 0.030 Neutrophils # 3.5 Lymphocytes # 1.5 Monocytes # 0.3 Eosinophils # 0.3 Basophils # 0.0 Nucleated Red Blood Cells # 0.0 Sodium Level 139 Potassium Level 4.1 Chloride Level 109 Carbon Dioxide Level 25 Anion Gap 5 Blood Urea Nitrogen 17 Creatinine 0.82 Est Glomerular Filtrat Rate mL/min Glucose Level 93 Calcium Level 8.6 Medications Medications Current Medications Acetaminophen (Tylenol Liquid) 650 mg Q4H PRN GTB MILD PAIN 1-3; Start 03/17/19 at 21:30 Bisacodyl (Dulcolax Supp) 10 mg DAILY PRN [place] CONSTIPATION; Start 03/17/19 at 21:00 Chlorhexidine Gluconate (Peridex) 15 ml Q12H MM Last administered on 04/06/19at 09:12; Admin Dose 15 ML; Start 03/17/19 at 21:00 Digoxin (Digoxin) 0.125 mg DAILY@13 PO Last administered on 04/06/19at 12:19; Admin Dose 0.125 MG; Start 03/18/19 at 13:00 Docusate Sodium (Colace) 100 mg DAILY PO Last administered on 04/06/19at 09:11; Admin Dose 100 MG; Start 03/18/19 at 09:00 Levetiracetam (Keppra Liquid) 250 mg Q12H GTB Last administered on 04/06/19at 09:24; Admin Dose 250 MG; Start 03/17/19 at 21:00 Magnesium Hydroxide (Milk Of Mag) 30 ml DAILY PRN GTB CONSTIPATION; Start 03/17/19 at 21:00 Lansoprazole (Prevacid) 30 mg DAILY@06 GTB Last administered on 04/06/19at 06:13; Admin Dose 30 MG; Start 03/18/19 at 06:00 Epoetin Amor-epbx (RETACRIT(non-esrd)) 40,000 unit We@1700 SC Last administered on 04/02/19 17:08; Admin Dose 40,000 UNIT; Start 03/19/19 at 17:00 Multivit/Ca Carb/ B Cmplx/FA/Prenat (Renee-Antonio) 1 tab DAILY GTB Last administered on 04/06/19 09:10; Admin Dose 1 TAB; Start 03/21/19 at 09:00 Zinc Sulfate (Zinc Sulfate) 220 mg DAILY GTB Last administered on 04/06/19 09:11; Admin Dose 220 MG; Start 03/21/19 at 09:00 Collagenase (Santyl) 1 applic BID TOP Last administered on 04/06/19 09:11; Admin Dose 1 APPLIC; Start 03/20/19 at 16:28 Vancomycin HCl (Vanco Iv Per Pharmacy) VANCOMYCIN PER PHARMACY PER PROTOCOL XX ; Start 03/23/19 at 06:30 Piperacillin Sod/ Tazobactam Sod 100 ml @ 200 mls/hr Q6 IVPB Last administered on 04/06/19 12:20; Admin Dose 200 MLS/HR; Start 03/23/19 at 06:30 Acetylcysteine (Mucomyst) 2 ml Q6H RESP THERAPY NEB Last administered on 04/06/19 14:31; Admin Dose 2 ML; Start 03/24/19 at 11:00 Levalbuterol (Xopenex Hfa) 2 puff Q6H RESP THERAPY INH Last administered on 04/06/19 14:31; Admin Dose 2 PUFF; Start 03/24/19 at 14:00 Triamcinolone Acetonide (Kenalog 0.1% Cr) 1 applic BID TOP Last administered on 04/06/19 09:14; Admin Dose 1 APPLIC; Start 03/27/19 at 09:00 Vancomycin HCl 1.25 gm/Sodium Chloride 250 ml @ 83.333 mls/ hr Q48H IVPB Last administered on 04/06/19 06:13; Admin Dose 83.333 MLS/HR; Start 03/31/19 at 06:00 Sodium Phosphate (Neutra-Phos) 250 mg BID GTB Last administered on 04/06/19 09:11; Admin Dose 250 MG; Start 03/31/19 at 09:00 Metoprolol Tartrate (Lopressor) 25 mg Q8 GTB Last administered on 04/06/19at 06:20; Admin Dose 25 MG; Start 03/31/19 at 14:00 Benazepril HCl (Lotensin) 20 mg BID PO Last administered on 04/06/19at 09:11; Admin Dose 20 MG; Start 04/03/19 at 21:00 LUIS FERGUSON April 06, 2019 15:27
[2019-04-07] VITALS (24 sets, daily range): BP systolic 117–142; BP diastolic 58–68; PULSE 54–97; RESP 16–22
[2019-04-07] MEDS: ACETYLCYSTEINE 20% 4 ML VIAL NEB SCH ×4 (01:17→20:45)
[2019-04-07] MEDS: LEVALBUTEROL (HFA) 15 GM INHALER INH SCH ×4 (01:17→21:03)
[2019-04-07] MEDS: LANSOPRAZOLE 30 MG CAP GTB SCH (05:26)
[2019-04-07] MEDS: PIPER-TAZO 3.375 GM IV (PMX) 100 ML IVPB SCH ×3 (05:26→17:43)
[2019-04-07] MEDS: METOPROLOL 25 MG TAB GTB SCH ×3 (05:42→21:24)
--- NOTE | 2019-04-07 08:38 | PN ---
DATE: 04/07/2019 SUBJECTIVE: The patient is stable, no events overnight. OBJECTIVE: VITAL SIGNS: Blood pressure is 142/65, pulse 63, respirations 16, temperature 98.0. HEENT: Head is normocephalic. NECK: Supple. HEART: Regular rate. LUNGS: Show diminished breath sounds at the base. ABDOMEN: Soft, nontender to palpation without rebound or guarding. EXTREMITIES: Negative for clubbing, cyanosis, no edema. DERMATOLOGIC: No rashes. MUSCULOSKELETAL: No joint effusion. NEUROLOGIC: No change in exam. MEDICATIONS: Reviewed. LABORATORY DATA: Reviewed. ASSESSMENT AND PLAN: 1. Chronic kidney disease, stage III. Renal function is stable. Continue current treatment plans, supportive care, renally dose all medications. 2. Hypokalemia and hypomagnesemia, improved. Continue to monitor. 3. Mineral bone disorder, monitor calcium and phosphorus levels. 4. Anemia. Monitor hemoglobin and hematocrit levels. 5. Hypertension. Blood pressure is stable, continue to monitor. 6. Ventilator-dependent respiratory failure. Vent settings have been reviewed. Continue to monitor . 7. Intraabdominal abscess. The patient is completing course of IV antibiotics. 8. Dysphagia. Continue tube feeding. 9. Chronic encephalopathy. No change. Dictated By: RAJINDER ATWOOD DO NR/NTS Conf#: [id number] DID#: [id number] CC: JAYLEN LUGO MD; MENDEL FIELDS MD;*End*
[2019-04-07] MEDS: DOCUSATE SODIUM 100 MG CAP PO SCH (08:55)
[2019-04-07] MEDS: ZINC SULFATE 220 MG CAP GTB SCH (08:55)
[2019-04-07] MEDS: CHLORHEXIDINE GLUCONATE 15 ML UD CUP MM SCH ×2 (08:55→21:21)
[2019-04-07] MEDS: LEVETIRACETAM (100 MG/ML) 5ML CUP GTB SCH ×2 (08:55→21:21)
[2019-04-07] MEDS: COLLAGENASE 5 GM (UD JAR) TOP SCH ×2 (08:55→21:22)
[2019-04-07] MEDS: BENAZEPRIL 20 MG TAB PO SCH ×2 (08:55→21:25)
[2019-04-07] MEDS: NEUTRA-PHOS 250 MG PACKET GTB SCH ×2 (08:55→21:21)
[2019-04-07] MEDS: MULTIVIT/CA CARB/B CMPLX/FA TAB GTB SCH (08:55)
[2019-04-07] MEDS: TRIAMCINOLONE ACET 0.1% 15 GM CR TOP SCH ×2 (08:56→21:22)
--- NOTE | 2019-04-07 12:01 | CONS ---
Assessment/Plan Assessment/Plan Hospital Course (Demo Recall) IMP: 1.PVC-ongoing. EF 65% by echo 10/29. neg trop x 3 2.Bradycardia-to 50's 3.HTN-elevated 4.REsp failure-chronic s/p trach 5.SVT-short run. Again recurrent short run at approx 150-160 ? PAFL/AT 03/31. NO recurrence since increase to BB 6.anemia Recc: -Tele -Continue current BB as tolerated only -Continue current ACEI dose -Continue abx's and f/u cx data -Continue digoxin as tolerated only -Continue mucomyst and bronchodilators Consultation Date/Type/Reason Admit Date/Time March 17, 2019 at 14:33 Initial Consult Date 03/18/19 Type of Consult Cardiology Reason for Consultation SVT Requesting Provider: IMER VARGAS Date/Time of Note DATE: 04/07/19 TIME: 12:00 Exam/Review of Systems Vital Signs Vitals Vital Signs Date Temp Pulse Resp B/P (MAP) Pulse Ox O2 O2 Flow FiO2 Time Delivery Rate 04/07/19 98.6 74 18 129/68 100 11:34 (88) 04/07/19 30 09:50 04/04/19 Trach 15:32 Collar Intake and Output 04/06/19 04/06/19 04/07/19 1515:00 23:00 07:00 IntakeIntake Total 350 ml 1160 ml OutputOutput Total 1400 ml 800 ml BalanceBalance 350 ml -1400 ml 360 ml Exam Exam Review of Systems: CONSTITUTIONAL: No fevers, chills. PULMONARY: No sob CARDIOVASCULAR: No chest pain/palpitations GASTROINTESTINAL: No nausea/vomiting. GENITOURINARY: No hematuria/dysuria. MUSCULOSKELETAL: No myagias/arthalgias. PSYCHIATRIC: The patient denies depression. NEUROLOGIC: No weakness Constitutional: alert Psych: no complaints Head: normocephalic ENMT: mucosa pink and moist Neck: supple, jvd (9 cm water) Respiratory: diminished breath sounds (at bases/B) Cardiovascular: regular rate and rhythm Gastrointestinal: soft, non-tender Musculoskeletal: muscle tone (normal) Extremities: edema (none) Neurological: confused, lethargic Labs Result Diagram: 04/06/19 0504 04/06/19 0504 Medications Medications Current Medications Acetaminophen (Tylenol Liquid) 650 mg Q4H PRN GTB MILD PAIN 1-3; Start 03/17/19 at 21:30 Bisacodyl (Dulcolax Supp) 10 mg DAILY PRN [place] CONSTIPATION; Start 03/17/19 at 21:00 Chlorhexidine Gluconate (Peridex) 15 ml Q12H MM Last administered on 04/07/19 08:55; Admin Dose 15 ML; Start 03/17/19 at 21:00 Digoxin (Digoxin) 0.125 mg DAILY@13 PO Last administered on 04/06/19 12:19; Admin Dose 0.125 MG; Start 03/18/19 at 13:00 Docusate Sodium (Colace) 100 mg DAILY PO Last administered on 04/07/19 08:55; Admin Dose 100 MG; Start 03/18/19 at 09:00 Levetiracetam (Keppra Liquid) 250 mg Q12H GTB Last administered on 04/07/19 08:55; Admin Dose 250 MG; Start 03/17/19 at 21:00 Magnesium Hydroxide (Milk Of Mag) 30 ml DAILY PRN GTB CONSTIPATION; Start 03/17/19 at 21:00 Lansoprazole (Prevacid) 30 mg DAILY@06 GTB Last administered on 04/07/19 05:26; Admin Dose 30 MG; Start 03/18/19 at 06:00 Epoetin Amor-epbx (RETACRIT(non-esrd)) 40,000 unit We@1700 SC Last administered on 04/02/19at 17:08; Admin Dose 40,000 UNIT; Start 03/19/19 at 17:00 Multivit/Ca Carb/ B Cmplx/FA/Prenat (Renee-Antonio) 1 tab DAILY GTB Last administered on 04/07/19 08:55; Admin Dose 1 TAB; Start 03/21/19 at 09:00 Zinc Sulfate (Zinc Sulfate) 220 mg DAILY GTB Last administered on 04/07/19 08:55; Admin Dose 220 MG; Start 03/21/19 at 09:00 Collagenase (Santyl) 1 applic BID TOP Last administered on 04/07/19 08:55; Admin Dose 1 APPLIC; Start 03/20/19 at 16:28 Vancomycin HCl (Vanco Iv Per Pharmacy) VANCOMYCIN PER PHARMACY PER PROTOCOL XX ; Start 03/23/19 at 06:30 Piperacillin Sod/ Tazobactam Sod 100 ml @ 200 mls/hr Q6 IVPB Last administered on 04/07/19 05:26; Admin Dose 200 MLS/HR; Start 03/23/19 at 06:30 Acetylcysteine (Mucomyst) 2 ml Q6H RESP THERAPY NEB Last administered on 04/07/19 09:01; Admin Dose 2 ML; Start 03/24/19 at 11:00 Levalbuterol (Xopenex Hfa) 2 puff Q6H RESP THERAPY INH Last administered on 04/07/19 09:00; Admin Dose 2 PUFF; Start 03/24/19 at 14:00 Triamcinolone Acetonide (Kenalog 0.1% Cr) 1 applic BID TOP Last administered on 04/07/19 08:56; Admin Dose 1 APPLIC; Start 03/27/19 at 09:00 Vancomycin HCl 1.25 gm/Sodium Chloride 250 ml @ 83.333 mls/ hr Q48H IVPB Last administered on 04/06/19 06:13; Admin Dose 83.333 MLS/HR; Start 03/31/19 at 06:00 Sodium Phosphate (Neutra-Phos) 250 mg BID GTB Last administered on 04/07/19 08:55; Admin Dose 250 MG; Start 03/31/19 at 09:00 Metoprolol Tartrate (Lopressor) 25 mg Q8 GTB Last administered on 04/07/19 05:42; Admin Dose 25 MG; Start 03/31/19 at 14:00 Benazepril HCl (Lotensin) 20 mg BID PO Last administered on 04/07/19 08:55; Admin Dose 20 MG; Start 04/03/19 at 21:00 LUIS FERGUSON April 07, 2019 12:01
--- NOTE | 2019-04-07 12:15 | CONS ---
Assessment/Plan Assessment/Plan Hospital Course (Demo Recall) ID NOTE CURRENT ABX: DAY #16 = VANCO IV + ZOSYN 24H INTERVAL SUMMARY * Clinically status quo --- Chronic encephalopathy -- VSS, NAD, looks comfortable -- (+)Diverticulosis on colonoscopy w/abscess, no surgery per [facility] * CT ABD revealing diverticulitis w/small abscess -- started on broad spectrum IV ABX for conservative tx RADIOLOGY IMAGING REPORTS * 03/21/19 CT ABD-PEL: * 1. Sigmoid diverticulosis with a focal area of abnormal wall thickening of the proximal sigmoid colon with an adjacent gas containing fluid collection measuring 3.1 x 3.2 x 8.5 cm extending along the left iliopsoas/iliacus muscles. This could represent peridiverticular abscess/contained perforation. No additional fluid collection is identified in the remainder of the abdomen. * 2. Complete atelectasis of the left lower lobe. Query mucus plugging. Consider bronchoscopy for further evaluation. * 3. Unchanged left adrenal nodule. * 4. Cholelithiasis. * 5. Splenomegaly. * 6. Peg tube is in satisfactory position. * 7. Multiple bilateral renal cysts. * 8. Aortoiliac vascular calcifications with no aneurysmal dilatation. * 03/17/19 CXR: IMPRESSION:Chronic interstitial changes throughout the lungs.Small right pleural effusion.Calcified aorta consistent with atheroscle rotic disease. * 03/17/[address] * 1. No intracranial hemorrhage, mass effect or midline shift. * 2. Moderate generalized atrophy. Severe chronic microangiopathic ischemic change. * 3. Multiple areas of chronic infarcts in the right parietal, occipital and temporal lobes. * 4. Intracranial atherosclerosis. * 5. Unchanged left parietal convexity parafalcine presumed meningiomas. Microbiology * NONE THIS ADMISSION * PER REVIEW PRIOR ADMISSION: * Hx of (+)VRE Stool Colonization * Hx of GNR Trach pathogen colonization PHYSICAL EXAMINATION: GENERAL: Afebrile, VSS, opens eyes, nonverbal, chronically ill-appearing HEENT: AT, NC, anicteric NECK: Supple,(+)TRACH secure CHEST: Equal chest rise bilaterally, without dyspnea on observation HEART: Pulse RRR ABDOMEN: Soft EXTREMITIES: Warm, dry, Bilateral lower extremities edema SKIN: no diaphoresis ID ASSESSMENT 73 yo MORB[employer] OBESE F admit with 1. SIRS w/ low grade temps, leukocytosis, transient low b/p 90/44 2. Diverticulitis w/small abscess on CT * 03/21/19 CT ABD-PEL: Sigmoid diverticulosis with a focal area of abnormal wall thickening of the proximal sigmoid colon with an adjacent gas containing fluid collection measuring 3.1 x 3.2 x 8.5 cm extending along the left yasir opsoas/iliacus muscles. This could represent peridiverticular abscess/contained perforation. 3. Encephalopathy secondary to hx of CVA 4. Seizure disorder/w/hx of prior status epilepticus 5. Status post healthcare associated pneumonia * CT evidence 03/21/19: Complete atelectasis of the left lower lobe. Query mucus plugging. Consider bronchoscopy for further evaluation. 6. Hx of GNR Tracheobronchitis == Polymicrobial GNR trach colonization 7. Chronic respiratory failure=> (+)Trach * COPD Emphysema * Interstitial Lung Disease * (+)PHTN 8. Hx of PRIOR Bilateral superficial venous thrombus within the cephalic veins. 9. Hx of Bilateral lower extremity cellulitis, likely acute on chronic 10. Hx of Breast folds = moisture yeast dermatitis 11. Atrial fibrillation. 12. Hx of CHF w/pulmonary edema and BLEXT edema 13. Anemia. 14. Dysphagia ABX ALLERGIES: KNDA CURRENT ABX: DAY #15=> VANCO IV + ZOSYN ID RECOMMENDATIONS Started on appropriate ABX Continue current ABX -- still w/concern ABSCESS - no surgery per family . Consultation Date/Type/Reason Admit Date/Time March 17, 2019 at 14:33 Initial Consult Date 03/18/19 Requesting Provider: IMER VARGAS Date/Time of Note DATE: 04/07/19 TIME: 12:15 Exam/Review of Systems Exam Vitals Vital Signs Date Temp Pulse Resp B/P (MAP) Pulse Ox O2 O2 Flow FiO2 Time Delivery Rate 04/07/19 98.6 74 18 129/68 100 11:34 (88) 04/07/19 30 09:50 04/04/19 Trach 15:32 Collar Intake and Output 04/06/19 04/06/19 04/07/19 1515:00 23:00 07:00 IntakeIntake Total 350 ml 1160 ml OutputOutput Total 1400 ml 800 ml BalanceBalance 350 ml -1400 ml 360 ml Results Result Diagram: 04/06/19 0504 04/06/19 0504 Medications Medication Current Medications Acetaminophen (Tylenol Liquid) 650 mg Q4H PRN GTB MILD PAIN 1-3; Start 03/17/19 at 21:30 Bisacodyl (Dulcolax Supp) 10 mg DAILY PRN [place] CONSTIPATION; Start 03/17/19 at 21:00 Chlorhexidine Gluconate (Peridex) 15 ml Q12H MM Last administered on 04/07/19 08:55; Admin Dose 15 ML; Start 03/17/19 at 21:00 Digoxin (Digoxin) 0.125 mg DAILY@13 PO Last administered on 04/06/19 12:19; Admin Dose 0.125 MG; Start 03/18/19 at 13:00 Docusate Sodium (Colace) 100 mg DAILY PO Last administered on 04/07/19 08:55; Admin Dose 100 MG; Start 03/18/19 at 09:00 Levetiracetam (Keppra Liquid) 250 mg Q12H GTB Last administered on 04/07/19 08:55; Admin Dose 250 MG; Start 03/17/19 at 21:00 Magnesium Hydroxide (Milk Of Mag) 30 ml DAILY PRN GTB CONSTIPATION; Start 03/17/19 at 21:00 Lansoprazole (Prevacid) 30 mg DAILY@06 GTB Last administered on 04/07/19 05:26; Admin Dose 30 MG; Start 03/18/19 at 06:00 Epoetin Amor-epbx (RETACRIT(non-esrd)) 40,000 unit We@1700 SC Last administered on 04/02/19at 17:08; Admin Dose 40,000 UNIT; Start 03/19/19 at 17:00 Multivit/Ca Carb/ B Cmplx/FA/Prenat (Renee-Antonio) 1 tab DAILY GTB Last administered on 04/07/19 08:55; Admin Dose 1 TAB; Start 03/21/19 at 09:00 Zinc Sulfate (Zinc Sulfate) 220 mg DAILY GTB Last administered on 04/07/19 08:55; Admin Dose 220 MG; Start 03/21/19 at 09:00 Collagenase (Santyl) 1 applic BID TOP Last administered on 04/07/19 08:55; Admin Dose 1 APPLIC; Start 03/20/19 at 16:28 Vancomycin HCl (Vanco Iv Per Pharmacy) VANCOMYCIN PER PHARMACY PER PROTOCOL XX ; Start 03/23/19 at 06:30 Piperacillin Sod/ Tazobactam Sod 100 ml @ 200 mls/hr Q6 IVPB Last administered on 04/07/19 05:26; Admin Dose 200 MLS/HR; Start 03/23/19 at 06:30 Acetylcysteine (Mucomyst) 2 ml Q6H RESP THERAPY NEB Last administered on 04/07/19 09:01; Admin Dose 2 ML; Start 03/24/19 at 11:00 Levalbuterol (Xopenex Hfa) 2 puff Q6H RESP THERAPY INH Last administered on 04/07/19 09:00; Admin Dose 2 PUFF; Start 03/24/19 at 14:00 Triamcinolone Acetonide (Kenalog 0.1% Cr) 1 applic BID TOP Last administered on 04/07/19 08:56; Admin Dose 1 APPLIC; Start 03/27/19 at 09:00 Vancomycin HCl 1.25 gm/Sodium Chloride 250 ml @ 83.333 mls/ hr Q48H IVPB Last administered on 04/06/19 06:13; Admin Dose 83.333 MLS/HR; Start 03/31/19 at 06:00 Sodium Phosphate (Neutra-Phos) 250 mg BID GTB Last administered on 04/07/19 08:55; Admin Dose 250 MG; Start 03/31/19 at 09:00 Metoprolol Tartrate (Lopressor) 25 mg Q8 GTB Last administered on 04/07/19 05:42; Admin Dose 25 MG; Start 03/31/19 at 14:00 Benazepril HCl (Lotensin) 20 mg BID PO Last administered on 04/07/19 08:55; Admin Dose 20 MG; Start 04/03/19 at 21:00 ELIAS CORONEL NP April 07, 2019 12:15
[2019-04-07] MEDS: DIGOXIN 0.125 MG TAB PO SCH (13:01)
--- NOTE | 2019-04-07 14:31 | PN ---
Date/Time of Note Date/Time of Note DATE: 04/07/19 TIME: 14:28 Assessment/Plan VTE Prophylaxis Risk score (from Ns)>0 risk: 7 SCD applied (from [facility]): Yes Pharmacological prophylaxis: NA/contraindicated Pharm contraindication: anticoag not tolerated Lines/Catheters IV C[facility]ter Type (from [facility]): Peripheral IV Urinary Cath still in place: Yes Reason Cath still needed: urinary retention Assessment/Plan Hospital Course Patient continues on ventilatory support without distress, tolerates G-tube feeding, DC planning Assessment/Plan -Diverticular abscess, Dr Mario is following in surgical consultation. Abscess is too small for drainage by IR. Family did not want any surgical intervention. Per ID patient is currently on Vanco and Zosyn. Dr. Melendez is following in infection disease consultation. -Severe diverticulosis with spasm per colonoscopy. Dr. Galdamez is following in gastroenterology consultation. -Anemia. Stool for OB neg. Continue Epogen and Iron supplementation. Dr. Kiser is following in hematology consultation -Ventilator dependent respiratory failure with tracheostomy. Dr. Davenport is following in pulmonology consultation. -Acute on chronic kidney disease. Monitor BUN and creatinine. Dr. Grant is following in nephrology consultation -Atrial fibrillation, continue metoprolol -Diastolic congestive heart failure. Dr. Hernandez is following in cardiology consultation. -Pulmonary fibrosis, continue Pulmicort. -Dysphagia with G-tube. -Chronic encephalopathy -COPD -History of CVA, continue aspirin. -Seizure disorder/status epilepticus. Continue Keppra and Ativan as needed. -MRSA nares colonization Further recommendations based on clinical course. Plan of care discussed with Dr. Phillips. Result Diagram: 04/06/19 0504 04/06/19 0504 Exam/Review of Systems Exam Vitals Vital Signs Date Temp Pulse Resp B/P (MAP) Pulse Ox O2 O2 Flow FiO2 Time Delivery Rate 04/07/19 60 20 100 30 13:36 04/07/19 98.6 129/68 11:34 (88) 04/04/19 Trach 15:32 Collar Intake and Output 04/06/19 04/06/19 04/07/19 1414:59 22:59 06:59 IntakeIntake Total 350 ml 1160 ml OutputOutput Total 1400 ml 800 ml BalanceBalance 350 ml -1400 ml 360 ml Exam Constitutional: awake, alert Neck: other (trach) Respiratory: diminished breath sounds Cardiovascular: regular rate and rhythm Gastrointestinal: soft, non-tender, other (G-tube) Extremities: normal pulses Medications Medication Current Medications Acetaminophen (Tylenol Liquid) 650 mg Q4H PRN GTB MILD PAIN 1-3; Start 03/17/19 at 21:30 Bisacodyl (Dulcolax Supp) 10 mg DAILY PRN [place] CONSTIPATION; Start 03/17/19 at 21:00 Chlorhexidine Gluconate (Peridex) 15 ml Q12H MM Last administered on 04/07/19 08:55; Admin Dose 15 ML; Start 03/17/19 at 21:00 Digoxin (Digoxin) 0.125 mg DAILY@13 PO Last administered on 04/07/19 13:01; Admin Dose 0.125 MG; Start 03/18/19 at 13:00 Docusate Sodium (Colace) 100 mg DAILY PO Last administered on 04/07/19 08:55; Admin Dose 100 MG; Start 03/18/19 at 09:00 Levetiracetam (Keppra Liquid) 250 mg Q12H GTB Last administered on 04/07/19 08:55; Admin Dose 250 MG; Start 03/17/19 at 21:00 Magnesium Hydroxide (Milk Of Mag) 30 ml DAILY PRN GTB CONSTIPATION; Start 03/17/19 at 21:00 Lansoprazole (Prevacid) 30 mg DAILY@06 GTB Last administered on 04/07/19 05:26; Admin Dose 30 MG; Start 03/18/19 at 06:00 Epoetin Amor-epbx (RETACRIT(non-esrd)) 40,000 unit We@1700 SC Last administered on 04/02/19 17:08; Admin Dose 40,000 UNIT; Start 03/19/19 at 17:00 Multivit/Ca Carb/ B Cmplx/FA/Prenat (Renee-Antonio) 1 tab DAILY GTB Last administ ered on 04/07/19 08:55; Admin Dose 1 TAB; Start 03/21/19 at 09:00 Zinc Sulfate (Zinc Sulfate) 220 mg DAILY GTB Last administered on 04/07/19 08:55; Admin Dose 220 MG; Start 03/21/19 at 09:00 Collagenase (Santyl) 1 applic BID TOP Last administered on 04/07/19 08:55; Admin Dose 1 APPLIC; Start 03/20/19 at 16:28 Vancomycin HCl (Vanco Iv Per Pharmacy) VANCOMYCIN PER PHARMACY PER PROTOCOL XX ; Start 03/23/19 at 06:30 Piperacillin Sod/ Tazobactam Sod 100 ml @ 200 mls/hr Q6 IVPB Last administered on 04/07/19 13:01; Admin Dose 200 MLS/HR; Start 03/23/19 at 06:30 Acetylcysteine (Mucomyst) 2 ml Q6H RESP THERAPY NEB Last administered on 04/07/19 09:01; Admin Dose 2 ML; Start 03/24/19 at 11:00 Levalbuterol (Xopenex Hfa) 2 puff Q6H RESP THERAPY INH Last administered on 04/07/19 09:00; Admin Dose 2 PUFF; Start 03/24/19 at 14:00 Triamcinolone Acetonide (Kenalog 0.1% Cr) 1 applic BID TOP Last administered on 04/07/19 08:56; Admin Dose 1 APPLIC; Start 03/27/19 at 09:00 Vancomycin HCl 1.25 gm/Sodium Chloride 250 ml @ 83.333 mls/ hr Q48H IVPB Last administered on 04/06/19 06:13; Admin Dose 83.333 MLS/HR; Start 03/31/19 at 06:00 Sodium Phosphate (Neutra-Phos) 250 mg BID GTB Last administered on 04/07/19 08:55; Admin Dose 250 MG; Start 03/31/19 at 09:00 Metoprolol Tartrate (Lopressor) 25 mg Q8 GTB Last administered on 04/07/19 13:01; Admin Dose 25 MG; Start 03/31/19 at 14:00 Benazepril HCl (Lotensin) 20 mg BID PO Last administered on 04/07/19 08:55; Admin Dose 20 MG; Start 04/03/19 at 21:00 IMER VARGAS April 07, 2019 14:31
--- NOTE | 2019-04-07 17:46 | PN ---
Date/Time of Note Date/Time of Note DATE: 04/07/19 TIME: 17:45 Assessment/Plan VTE Prophylaxis Risk score (from [facility])>0 risk: 7 SCD applied (from [facility]): Yes SCD contraindicated: other Pharmacological prophylaxis: other Pharm contraindication: other Lines/Catheters IV Catheter Type (from [facility]): Peripheral IV Urinary Cath still in place: Yes Reason Cath still needed: urinary retention Assessment/Plan Assessment/Plan 73 yo with #Anemia -Hg trended up to 9.7 -pt is noted to have a macrocytic anemia which is mostly likely 2/2 underlying myelodysplastic syndrome -continue epogen 40,000 units weekly -iron panel reveals mild iron deficiency. s/p ferrilict -vitamin b12 and folate levels are ok -past workup for anemia reveals a negative SPEP and no signs of hemolysis. will however recheck LDH, haptoglobin and retic -f/u colonoscopy results # fluid collection -measuring 3.1 x 3.2 x 8.5 cm extending along the left iliopsoas/iliacus muscles. This could represent peridiverticular abscess/contained perforation. -not drainable per IR -pt is currently on vancomycin and zosyn Patient seen in collaboration with Dr Kiser/dw staff Result Diagram: 04/06/19 0504 04/06/19 0504 Subjective 24 Hr Interval Summary Free Text/Dictation alert/eyes open daughters at bed side- all qs answered no bleeding reported no new events reported last night dw staff Subjective hx not possible: pt non-verbal Constitutional: requiring O2 Exam/Review of Systems Exam Vitals Vital Signs Date Temp Pulse Resp B/P (MAP) Pulse Ox O2 O2 Flow FiO2 Time Delivery Rate 04/07/19 61 16:39 04/07/19 20 100 30 15:45 04/07/19 97.9 134/58 15:36 (83) 04/04/19 Trach 15:32 Collar Intake and Output 04/06/19 04/06/19 04/07/19 1515:00 23:00 07:00 IntakeIntake Total 350 ml 1160 ml OutputOutput Total 1400 ml 800 ml BalanceBalance 350 ml -1400 ml 360 ml Constitutional: alert, frail Psych: nl mood/affect Eyes: nl lids ENMT: nl external ears & nose Neck: non-tender, other (trach intact) Respiratory: diminished breath sounds (at bases bilaterally) Cardiovascular: nl pulses, other (s1s2) Gastrointestinal: soft, non-tender, other (gt intact) Musculoskeletal: nl gait and stance, muscle weakness, range of motion Extremities: normal pulses Neurological: other (alert- opens eyes at times) Medications Medication Current Medications Acetaminophen (Tylenol Liquid) 650 mg Q4H PRN GTB MILD PAIN 1-3; Start 03/17/19 at 21:30 Bisacodyl (Dulcolax Supp) 10 mg DAILY PRN [place] CONSTIPATION; Start 03/17/19 at 21:00 Chlorhexidine Gluconate (Peridex) 15 ml Q12H MM Last administered on 04/07/19 08:55; Admin Dose 15 ML; Start 03/17/19 at 21:00 Digoxin (Digoxin) 0.125 mg DAILY@13 PO Last administered on 04/07/19 13:01; Admin Dose 0.125 MG; Start 03/18/19 at 13:00 Docusate Sodium (Colace) 100 mg DAILY PO Last administered on 04/07/19 08:55; Admin Dose 100 MG; Start 03/18/19 at 09:00 Levetiracetam (Keppra Liquid) 250 mg Q12H GTB Last administered on 04/07/19 08:55; Admin Dose 250 MG; Start 03/17/19 at 21:00 Magnesium Hydroxide (Milk Of Mag) 30 ml DAILY PRN GTB CONSTIPATION; Start 03/17/19 at 21:00 Lansoprazole (Prevacid) 30 mg DAILY@06 GTB Last administered on 04/07/19 05:26; Admin Dose 30 MG; Start 03/18/19 at 06:00 Epoetin Amor-epbx (RETACRIT(non-esrd)) 40,000 unit We@1700 SC Last administered on 04/02/19 17:08; Admin Dose 40,000 UNIT; Start 03/19/19 at 17:00 Multivit/Ca Carb/ B Cmplx/FA/Prenat (Renee-Antonio) 1 tab DAILY GTB Last admini stered on 04/07/19 08:55; Admin Dose 1 TAB; Start 03/21/19 at 09:00 Zinc Sulfate (Zinc Sulfate) 220 mg DAILY GTB Last administered on 04/07/19 08:55; Admin Dose 220 MG; Start 03/21/19 at 09:00 Collagenase (Santyl) 1 applic BID TOP Last administered on 04/07/19 08:55; Admin Dose 1 APPLIC; Start 03/20/19 at 16:28 Vancomycin HCl (Vanco Iv Per Pharmacy) VANCOMYCIN PER PHARMACY PER PROTOCOL XX ; Start 03/23/19 at 06:30 Piperacillin Sod/ Tazobactam Sod 100 ml @ 200 mls/hr Q6 IVPB Last administered on 04/07/19 17:43; Admin Dose 200 MLS/HR; Start 03/23/19 at 06:30 Acetylcysteine (Mucomyst) 2 ml Q6H RESP THERAPY NEB Last administered on 04/07/19 14:00; Admin Dose 2 ML; Start 03/24/19 at 11:00 Levalbuterol (Xopenex Hfa) 2 puff Q6H RESP THERAPY INH Last administered on 04/07/19 14:00; Admin Dose 2 PUFF; Start 03/24/19 at 14:00 Triamcinolone Acetonide (Kenalog 0.1% Cr) 1 applic BID TOP Last administered on 04/07/19 08:56; Admin Dose 1 APPLIC; Start 03/27/19 at 09:00 Vancomycin HCl 1.25 gm/Sodium Chloride 250 ml @ 83.333 mls/ hr Q48H IVPB Last administered on 04/06/19 06:13; Admin Dose 83.333 MLS/HR; Start 03/31/19 at 06:00 Sodium Phosphate (Neutra-Phos) 250 mg BID GTB Last administered on 04/07/19 08:55; Admin Dose 250 MG; Start 03/31/19 at 09:00 Metoprolol Tartrate (Lopressor) 25 mg Q8 GTB Last administered on 04/07/19 13:01; Admin Dose 25 MG; Start 03/31/19 at 14:00 Benazepril HCl (Lotensin) 20 mg BID PO Last administered on 04/07/19 08:55; Admin Dose 20 MG; Start 04/03/19 at 21:00 FRANCESCO SIU April 07, 2019 17:46
[2019-04-08] VITALS (21 sets, daily range): BP systolic 118–136; BP diastolic 56–78; PULSE 61–89; RESP 18–20
[2019-04-08] MEDS: PIPER-TAZO 3.375 GM IV (PMX) 100 ML IVPB SCH ×4 (00:17→17:57)
[2019-04-08] MEDS: LEVALBUTEROL (HFA) 15 GM INHALER INH SCH ×4 (01:15→19:14)
[2019-04-08] MEDS: ACETYLCYSTEINE 20% 4 ML VIAL NEB SCH ×4 (01:46→19:13)
[2019-04-08] MEDS: VANCOMYCIN HCL 1.25 GM in SOD CHLORIDE 0.9% 250 ML IVPB SCH (05:41)
[2019-04-08] MEDS: METOPROLOL 25 MG TAB GTB SCH ×3 (05:43→22:01)
[2019-04-08] MEDS: LANSOPRAZOLE 30 MG CAP GTB SCH (05:43)
--- NOTE | 2019-04-08 08:11 | CONS ---
Consult Date/Type/Reason Admit Date/Time March 17, 2019 at 14:33 Initial Consult Date 03/18/19 Requesting Provider: IMER VARGAS Date/Time of Note DATE: 04/08/19 TIME: 08:09 Subjective No acute events - pt comfortable - no CP now - in good fluid status. NO sustained ectopy on tele. Per nurse: O F/C/N/V/ - con't resp Rx Objective Vitals Vital Signs Date Temp Pulse Resp B/P (MAP) Pulse Ox O2 O2 Flow FiO2 Time Delivery Rate 04/08/19 66 20 100 30 05:53 04/08/19 98.7 128/56 04:54 (80) 04/04/19 Trach 15:32 Collar Intake and Output 04/07/19 04/07/19 04/08/19 1515:00 23:00 07:00 IntakeIntake Total 1340 ml OutputOutput Total 550 ml 1100 ml BalanceBalance -550 ml 240 ml Exam General: WN/WD/NAD, AOx 0 HEENT: Unicetric/atraumatic/EOMI (does not follow commands) NECK: trach Lymph: no lymphadenopathy HEART: regular with no S3, II/ systolic murmur at apex LUNGS: Coarse sounds ABD: soft, NT, ND, +BS : Intact Neuro: s/p CVA SKIN: chronic changes EXT: trace edema Results/Medications Result Diagram: 04/08/1933 04/08/19 05 Results 24 hrs Laboratory Tests Test 04/08/19 05:33 White Blood Count 7.0 # Red Blood Count 3.18 L Hemoglobin 9.8 L Hematocrit 32.9 L Mean Corpuscular Volume 103.5 H Mean Corpuscular Hemoglobin 30.8 Mean Corpuscular Hemoglobin Concent 29.8 L Red Cell Distribution Width 17.5 H Platelet Count 251 Mean Platelet Volume 9.6 Immature Granulocytes % 0.400 Neutrophils % 61.8 Lymphocytes % 26.7 Monocytes % 6.0 Eosinophils % 4.7 Basophils % 0.4 Nucleated Red Blood Cells % 0.0 Immature Granulocytes # 0.030 Neutrophils # 4.3 Lymphocytes # 1.9 Monocytes # 0.4 Eosinophils # 0.3 Basophils # 0.0 Nucleated Red Blood Cells # 0.0 Sodium Level 140 Potassium Level 4.2 Chloride Level 109 Carbon Dioxide Level 25 Anion Gap 6 Blood Urea Nitrogen 22 H Creatinine 0.86 Est Glomerular Filtrat Rate mL/min Glucose Level 96 Calcium Level 8.6 Home Meds Reported Medications Levalbuterol Hcl* (Xopenex*) 1.25 Mg/0.5 Ml Vial.neb, 1.25 MG INHALATION Q6H for WHEEZING AND SOB, EA 03/17/19 Levalbuterol Hcl* (Levalbuterol Hcl*) 1.25 Mg/0.5 Ml Vial.neb, 1.25 MG INHALATION Q3H, VIAL 03/17/19 Ascorbic Acid (Vitamin C) 500 Mg Tab, 500 MG GTB DAILY, TAB 03/17/19 Cran/Vitc/Mannose/Inulin/Brom (Uti-Stat Liquid) 3,875 Mg/30 Ml Liquid, 30 ML GTB BID 03/17/19 Acetaminophen* (Acetaminophen*) 500 MG Extra Strength Tablet, 1000 MG PO Q4H PRN for NEEDED, TAB UNTIL 04/16/19 03/17/19 Acetaminophen* (Tylenol*) 325 Mg Tablet, 650 MG GTB BID PRN for PAIN MGT, TAB 03/17/19 Acetaminophen* (Tylenol*) 325 Mg Tablet, 650 MG GTB Q4H PRN for MILD PAIN LEVEL 1-3, TAB AND FEVER 101F, END DATE 04/16/19 03/17/19 Acetaminophen* (Tylenol*) 325 Mg Tablet, 650 MG GTB NEEDED PRN for TRACH TUBE CHANGE, TAB 03/17/19 Epoetin Amor (Procrit) 4,000 Unit/1 Ml Vial, 4000 UNIT IJ Q WED, VIAL 03/17/19 Amino Acids/Protein Hydrolys (PRO-STAT LIQUID) 30 Ml Liquid.pkt, 30 ML GTB DAILY 03/17/19 Multivitamins* (Theragran*) 1 Tab Tab, 1 TAB GTB DAILY, TAB 03/17/19 Magnesium Hydroxide* (Milk Of Magnesia*) 400 Mg/5 Ml Oral.susp, 30 ML GTB NEEDED, ML END DATE 04/16/19 03/17/19 Metoprolol Tartrate* (Lopressor*) 25 Mg Tab, 25 MG GTB BID, #60 TAB HOLD IF SBP<110 OR HR<60 03/17/19 Levetiracetam* (Levetiracetam*) 500 Mg/5 Ml Solution, 2.5 ML PO Q12H, ML 03/17/19 Mineral Oil* (Fleet* Mineral Oil Enema) Unknown Strength Oil, 1 APPLIC [place] NEEDED PRN for CONSTIPATION, ENEMA 03/17/19 Bisacodyl (Dulcolax) 10 Mg Supp.rect, 10 MG RC NEEDED, SUPP.RECT UNTIL 04/16/19 03/17/19 Digoxin* (Digox*) 125 Mcg Tablet, 0.125 MG GTB DAILY PRN for HOLD IF HR<60, TAB 03/17/19 Docusate Sodium* (Colace*) 100 Mg Capsule, 100 MG GTB DAILY, #30 CAP 03/17/19 Chlorhexidine Gluconate (Peridex) 473 Ml Mouthwash, 15 ML MM Q12H, BOTTLE 03/17/19 Medications Current Medications Acetaminophen (Tylenol Liquid) 650 mg Q4H PRN GTB MILD PAIN 1-3; Start 03/17/19 at 21:30 Bisacodyl (Dulcolax Supp) 10 mg DAILY PRN [place] CONSTIPATION; Start 03/17/19 at 21:00 Chlorhexidine Gluconate (Peridex) 15 ml Q12H MM Last administered on 04/07/19at 21:21; Admin Dose 15 ML; Start 03/17/19 at 21:00 Digoxin (Digoxin) 0.125 mg DAILY@13 PO Last administered on 04/07/19at 13:01; Admin Dose 0.125 MG; Start 03/18/19 at 13:00 Docusate Sodium (Colace) 100 mg DAILY PO Last administered on 04/07/19at 08:55; Admin Dose 100 MG; Start 03/18/19 at 09:00 Levetiracetam (Keppra Liquid) 250 mg Q12H GTB Last administered on 04/07/19at 21:21; Admin Dose 250 MG; Start 03/17/19 at 21:00 Magnesium Hydroxide (Milk Of Mag) 30 ml DAILY PRN GTB CONSTIPATION; Start 03/17/19 at 21:00 Lansoprazole (Prevacid) 30 mg DAILY@06 GTB Last administered on 04/08/19at 05:43; Admin Dose 30 MG; Start 03/18/19 at 06:00 Epoetin Amor-epbx (RETACRIT(non-esrd)) 40,000 unit We@1700 SC Last administered on 04/02/19 17:08; Admin Dose 40,000 UNIT; Start 03/19/19 at 17:00 Multivit/Ca Carb/ B Cmplx/FA/Prenat (Renee-Antonio) 1 tab DAILY GTB Last administered on 04/07/19 08:55; Admin Dose 1 TAB; Start 03/21/19 at 09:00 Zinc Sulfate (Zinc Sulfate) 220 mg DAILY GTB Last administered on 04/07/19 08:55; Admin Dose 220 MG; Start 03/21/19 at 09:00 Collagenase (Santyl) 1 applic BID TOP Last administered on 04/07/19 21:22; Admin Dose 1 APPLIC; Start 03/20/19 at 16:28 Vancomycin HCl (Vanco Iv Per Pharmacy) VANCOMYCIN PER PHARMACY PER PROTOCOL XX ; Start 03/23/19 at 06:30 Piperacillin Sod/ Tazobactam Sod 100 ml @ 200 mls/hr Q6 IVPB Last administered on 04/08/19 05:41; Admin Dose 200 MLS/HR; Start 03/23/19 at 06:30 Acetylcysteine (Mucomyst) 2 ml Q6H RESP THERAPY NEB Last administered on 04/08/19 07:59; Admin Dose 2 ML; Start 03/24/19 at 11:00 Levalbuterol (Xopenex Hfa) 2 puff Q6H RESP THERAPY INH Last administered on 04/08/19 07:58; Admin Dose 2 PUFF; Start 03/24/19 at 14:00 Triamcinolone Acetonide (Kenalog 0.1% Cr) 1 applic BID TOP Last administered on 04/07/19 21:22; Admin Dose 1 APPLIC; Start 03/27/19 at 09:00 Vancomycin HCl 1.25 gm/Sodium Chloride 250 ml @ 83.333 mls/ hr Q48H IVPB Last administered on 04/08/19 05:41; Admin Dose 83.333 MLS/HR; Start 03/31/19 at 06:00 Sodium Phosphate (Neutra-Phos) 250 mg BID GTB Last administered on 04/07/19 21:21; Admin Dose 250 MG; Start 03/31/19 at 09:00 Metoprolol Tartrate (Lopressor) 25 mg Q8 GTB Last administered on 5/28/19at 05:43; Admin Dose 25 MG; Start 03/31/19 at 14:00 Benazepril HCl (Lotensin) 20 mg BID PO Last administered on 04/07/19at 21:25; Admin Dose 20 MG; Start 04/03/19 at 21:00 Assessment/Plan Hospital Course (Demo Recall) 1. Premature ventricular contractions. Premature ventricular contractions are not confirmed based on my interpretation on telemetry strip. No focal ectopy on tele. Rate controlled. 2. Supraventricular tachycardia, possibly atrial tachycardia versus a short run of atrial tachycardia. No particular treatment is required. Continue to treat the patient with a beta-jude now. She is also on digoxin which is reasonable. Stable now. 3. Hypertension. Blood pressure is well optimized now, which was actually in the low side. I think it is reasonable to hydrate as needed. BP stable. Stable overall. BP well maintained. In good range now. Treated. In good range. 4. Respiratory failure. Continue respiratory therapy. The patient is on the ventilator. 5. Chronic malnourished state. Continue feedings per PEG. At goal. Stable. 6. Anemia. Hemoglobin is fairly stable now. No evidence of bleeding. We will monitor clinically. H/H stable now. NO bleeding. Hg 9.8 now. Unchanged. NO bleeding noted. KINGSTON HEARD MD April 08, 2019 08:11
--- NOTE | 2019-04-08 08:49 | PN ---
DATE: 04/08/2019 SUBJECTIVE: The patient is stable. No events overnight. OBJECTIVE: VITAL SIGNS: Blood pressure is 128/56, respirations 20, pulse 89, temperature 98.7. HEENT: Head is normocephalic. NECK: Supple. HEART: Regular rate. LUNGS: Show diminished breath sounds at the base. ABDOMEN: Soft, nontender to palpation. No rebound or guarding. EXTREMITIES: Negative for clubbing, cyanosis, no edema. DERMATOLOGIC: No rashes. MUSCULOSKELETAL: No joint effusion. NEUROLOGIC: No change in exam. MEDICATIONS: Reviewed. LABORATORY DATA: Reviewed. IMAGING STUDIES: Reviewed. ASSESSMENT AND PLAN: 1. Chronic kidney disease, stage III. Renal function is stable. Continue current treatment plan, s upportive care, renally dose all medications. 2. Hypokalemia and hypomagnesemia. Continue to monitor and replete as needed. 3. Mineral bone disorder. Monitor calcium and phosphorus levels. 4. Anemia. Continue to monitor hemoglobin and hematocrit levels. 5. Hypertension. Blood pressure is stable, continue to monitor. 6. Ventilator-dependent respiratory failure. Vent settings have been reviewed. Continue to monitor . 7. Intraabdominal abscess. The patient is completing a course of IV antibiotics. 8. Dysphagia. Continue tube feeding. 9. Chronic encephalopathy. No change. Dictated By: RAJINDER WATTS/NTS Conf#: [id number] DID#: [id number] CC: MENDEL FIELDS MD; JAYLEN LUGO MD;*EndCC*
[2019-04-08] MEDS: LEVETIRACETAM (100 MG/ML) 5ML CUP GTB SCH ×2 (08:58→22:01)
[2019-04-08] MEDS: NEUTRA-PHOS 250 MG PACKET GTB SCH ×2 (08:58→22:01)
[2019-04-08] MEDS: CHLORHEXIDINE GLUCONATE 15 ML UD CUP MM SCH ×2 (08:58→22:01)
[2019-04-08] MEDS: COLLAGENASE 5 GM (UD JAR) TOP SCH ×2 (08:58→22:02)
[2019-04-08] MEDS: BENAZEPRIL 20 MG TAB PO SCH ×2 (08:59→22:01)
[2019-04-08] MEDS: ZINC SULFATE 220 MG CAP GTB SCH (08:59)
[2019-04-08] MEDS: MULTIVIT/CA CARB/B CMPLX/FA TAB GTB SCH (08:59)
[2019-04-08] MEDS: TRIAMCINOLONE ACET 0.1% 15 GM CR TOP SCH ×2 (08:59→22:02)
[2019-04-08] MEDS: DOCUSATE SODIUM 100 MG CAP PO SCH (08:59)
--- NOTE | 2019-04-08 10:32 | PN ---
Date/Time of Note Date/Time of Note DATE: 04/08/19 TIME: 10:19 Assessment/Plan Lines/Catheters IV Catheter Type (from [facility]): Saline Lock Damon in Place (from [facility]): Yes Assessment/Plan Chief Complaint/Hosp Course 1. Sigmoid diverticulosis with a focal area of abnormal wall thickening of the proximal sigmoid colon with an adjacent gas containing fluid collection measuring 3.1 x 3.2 x 8.5 cm extending along the left iliopsoas/iliacus muscles. This could represent peridiverticular abscess/contained perforation. Not drainable per IR. Family does not want aggressive measures (OR). s/p abx per ID; repeat ct noted -supportive -nutritional optimization -abx per id -dc ok from surgical standpoint -eventual repeat CT 2. Anemia: No overt bleed noted -Monitor and transfuse as needed -Per hematology 3. VDRF: -Pulmonary toilet -Vent management per pulmonary 4. CKD -Limit nephrotoxic meds -Renally dose meds -Per renal 5. Atrial fibrillation history -Rate control 6. Heart failure: -Cardiac optimization 7. Dysphagia with PEG placement -Continue tube feeds with aspiration precautions Thank you. Patient seen and examined in collaboration with Dr. Harry Mario. Subjective 24 Hr Interval Summary Appears comfortable. Nonverbal indicators of pain not present. No fevers, labored breathing, congested cough, dysrhythmia, v/d, sz rash. Exam/Review of Systems Vital Signs Vitals Vital Signs Date Temp Pulse Resp B/P (MAP) Pulse Ox O2 O2 Flow FiO2 Time Delivery Rate 04/08/19 60 20 100 30 09:45 04/08/19 98.8 134/64 08:31 (87) 04/04/19 Trach 15:32 Collar Intake and Output 04/07/19 04/07/19 04/08/19 1515:00 23:00 07:00 IntakeIntake Total 1340 ml OutputOutput Total 550 ml 1100 ml BalanceBalance -550 ml 240 ml Exam Free Text/Dictation Constitutional: alert; No oriented, No distress Psych: nl mood/affect Head: normocephalic, atraumatic Eyes: nl conjunctiva, EOMI, nl lids, nl sclera ENMT: nl external ears & nose, nl lips & teeth, mucosa pink and moist Neck: supple, non-tender, other (Tracheostomy) Respiratory: normal air movement, other (Vent); No congested cough Cardiovascular: s1s2 Gastrointestinal: soft, non-tender, other (PEG); No distended Genitourinary - Female: nl external genitalia Musculoskeletal: nl extremities to inspection, nl gait and stance Extremities: normal pulses; No edema Neurological: No nl mental status, No nl speech (Nonverbal, noncommunicative), No nl strength, No focal weakness Skin: No rash or lesions Results Result Diagram: 04/08/19 0533 04/08/19 0533 EULA HICKMAN NP April 08, 2019 10:30
--- NOTE | 2019-04-08 11:32 | CONS ---
Assessment/Plan Assessment/Plan Hospital Course (Demo Recall) 73 yo with #Anemia -Hg stable at 9.8 -pt is noted to have a macrocytic anemia which is mostly likely 2/2 underlying myelodysplastic syndrome -continue epogen 40,000 units weekly -iron panel reveals mild iron deficiency. s/p ferrilict -vitamin b12 and folate levels are ok -past workup for anemia reveals a negative SPEP and no signs of hemolysis. will however recheck LDH, haptoglobin and retic -f/u colonoscopy results # fluid collection -measuring 3.1 x 3.2 x 8.5 cm extending along the left iliopsoas/iliacus muscles. This could represent peridiverticular abscess/contained perforation. -not drainable per IR -pt is currently on vancomycin and zosyn Consultation Date/Type/Reason Admit Date/Time March 17, 2019 at 14:33 Initial Consult Date 03/18/19 Type of Consult hematology Reason for Consultation anemia Requesting Provider: IMER VARGAS Date/Time of Note DATE: 04/08/19 TIME: 11:29 24 HR Interval Summary Free Text/Dictation no acute overnight events Exam/Review of Systems Exam Vitals Vital Signs Date Temp Pulse Resp B/P (MAP) Pulse Ox O2 O2 Flow FiO2 Time Delivery Rate 04/08/19 68 20 100 30 11:21 04/08/19 98.8 134/64 08:31 (87) 04/04/19 Trach 15:32 Collar Intake and Output 04/07/19 04/07/19 04/08/19 1515:00 23:00 07:00 IntakeIntake Total 1340 ml OutputOutput Total 550 ml 1100 ml BalanceBalance -550 ml 240 ml Constitutional: frail Psych: confusion Head: normocephalic Eyes: nl conjunctiva ENMT: nl external ears & nose Neck: other (trach in place) Respiratory: clear to auscultation Cardiovascular: regular rate and rhythm Gastrointestinal: soft Musculoskeletal: nl extremities to inspection Extremities: normal pulses Results Result Diagram: 04/08/1933 04/08/19 0533 Results 24hrs Laboratory Tests Test 04/08/19 05:33 White Blood Count 7.0 # Red Blood Count 3.18 L Hemoglobin 9.8 L Hematocrit 32.9 L Mean Corpuscular Volume 103.5 H Mean Corpuscular Hemoglobin 30.8 Mean Corpuscular Hemoglobin Concent 29.8 L Red Cell Distribution Width 17.5 H Platelet Count 251 Mean Platelet Volume 9.6 Immature Granulocytes % 0.400 Neutrophils % 61.8 Lymphocytes % 26.7 Monocytes % 6.0 Eosinophils % 4.7 Basophils % 0.4 Nucleated Red Blood Cells % 0.0 Immature Granulocytes # 0.030 Neutrophils # 4.3 Lymphocytes # 1.9 Monocytes # 0.4 Eosinophils # 0.3 Basophils # 0.0 Nucleated Red Blood Cells # 0.0 Sodium Level 140 Potassium Level 4.2 Chloride Level 109 Carbon Dioxide Level 25 Anion Gap 6 Blood Urea Nitrogen 22 H Creatinine 0.86 Est Glomerular Filtrat Rate mL/min Glucose Level 96 Calcium Level 8.6 Medications Medication Current Medications Acetaminophen (Tylenol Liquid) 650 mg Q4H PRN GTB MILD PAIN 1-3; Start 03/17/19 at 21:30 Bisacodyl (Dulcolax Supp) 10 mg DAILY PRN [place] CONSTIPATION; Start 03/17/19 at 21:00 Chlorhexidine Gluconate (Peridex) 15 ml Q12H MM Last administered on 04/08/19 08:58; Admin Dose 15 ML; Start 03/17/19 at 21:00 Digoxin (Digoxin) 0.125 mg DAILY@13 PO Last administered on 04/07/19 13:01; Admin Dose 0.125 MG; Start 03/18/19 at 13:00 Docusate Sodium (Colace) 100 mg DAILY PO Last administered on 04/08/19 08:59; Admin Dose 100 MG; Start 03/18/19 at 09:00 Levetiracetam (Keppra Liquid) 250 mg Q12H GTB Last administered on 04/08/19 08:58; Admin Dose 250 MG; Start 03/17/19 at 21:00 Magnesium Hydroxide (Milk Of Mag) 30 ml DAILY PRN GTB CONSTIPATION; Start 03/17/19 at 21:00 Lansoprazole (Prevacid) 30 mg DAILY@06 GTB Last administered on 04/08/19 05:43; Admin Dose 30 MG; Start 03/18/19 at 06:00 Epoetin Amor-epbx (RETACRIT(non-esrd)) 40,000 unit We@1700 SC Last administered on 04/02/19 17:08; Admin Dose 40,000 UNIT; Start 03/19/19 at 17:00 Multivit/Ca Carb/ B Cmplx/FA/Prenat (Renee-Antonio) 1 tab DAILY GTB Last administered on 04/08/19 08:59; Admin Dose 1 TAB; Start 03/21/19 at 09:00 Zinc Sulfate (Zinc Sulfate) 220 mg DAILY GTB Last administered on 04/08/19 08:59; Admin Dose 220 MG; Start 03/21/19 at 09:00 Collagenase (Santyl) 1 applic BID TOP Last administered on 04/08/19 08:58; Admin Dose 1 APPLIC; Start 03/20/19 at 16:28 Vancomycin HCl (Vanco Iv Per Pharmacy) VANCOMYCIN PER PHARMACY PER PROTOCOL XX ; Start 03/23/19 at 06:30 Piperacillin Sod/ Tazobactam Sod 100 ml @ 200 mls/hr Q6 IVPB Last administered on 04/08/19 11:19; Admin Dose 200 MLS/HR; Start 03/23/19 at 06:30 Acetylcysteine (Mucomyst) 2 ml Q6H RESP THERAPY NEB Last administered on 04/08/19 07:59; Admin Dose 2 ML; Start 03/24/19 at 11:00 Levalbuterol (Xopenex Hfa) 2 puff Q6H RESP THERAPY INH Last administered on 04/08/19 07:58; Admin Dose 2 PUFF; Start 03/24/19 at 14:00 Triamcinolone Acetonide (Kenalog 0.1% Cr) 1 applic BID TOP Last administered on 04/08/19 08:59; Admin Dose 1 APPLIC; Start 03/27/19 at 09:00 Vancomycin HCl 1.25 gm/Sodium Chloride 250 ml @ 83.333 mls/ hr Q48H IVPB Last administered on 04/08/19 05:41; Admin Dose 83.333 MLS/HR; Start 03/31/19 at 06 :00 Sodium Phosphate (Neutra-Phos) 250 mg BID GTB Last administered on 04/08/19 08:58; Admin Dose 250 MG; Start 03/31/19 at 09:00 Metoprolol Tartrate (Lopressor) 25 mg Q8 GTB Last administered on 04/08/19 05:43; Admin Dose 25 MG; Start 03/31/19 at 14:00 Benazepril HCl (Lotensin) 20 mg BID PO Last administered on 04/08/19at 08:59; Admin Dose 20 MG; Start 04/03/19 at 21:00 IJEOMA GROSSMAN M.D. April 08, 2019 11:32
[2019-04-08] MEDS: DIGOXIN 0.125 MG TAB PO SCH (14:00)
--- NOTE | 2019-04-08 15:07 | CONS ---
Assessment/Plan Assessment/Plan Hospital Course (Demo Recall) No acute changes, looks comfortable, no fevers Indwelling: Trach, PEG, Damon Antimicrobials: Vancomycin, Zosyn Physical examination: Chronically ill-appearing elderly woman in no distress. H ead atraumatic normocephalic neck is supple tracheostomy present chest rise symmetrical breath sounds diminished bases. Heart: S1-S2. Abdomen soft bowel sounds present. Assessment: 1. Sigmoid diverticulosis with abscess 2. Left lower lobe atelectasis ? PNA 3. Chronic respiratory failure and dysphagia 4. Seizure disorder 5. Acute on chronic encephalopathy 6. Chronic kidney disease 7. Urinary tract infection as per urinalysis Plan: Remains unchanged, repeat CT noted, continue on IV abx indefinitely, family refused aggressive measures, pt is DNR >dc to SNF Consultation Date/Type/Reason Admit Date/Time March 17, 2019 at 14:33 Initial Consult Date 03/18/19 Type of Consult id Requesting Provider: IMER VARGAS Date/Time of Note DATE: 04/08/19 TIME: 15:06 Exam/Review of Systems Exam Vitals Vital Signs Date Temp Pulse Resp B/P (MAP) Pulse Ox O2 O2 Flow FiO2 Time Delivery Rate 04/08/19 20 20 100 30 13:52 04/08/19 98.8 134/64 08:31 (87) 04/04/19 Trach 15:32 Collar Intake and Output 04/07/19 04/07/19 04/08/19 1515:00 23:00 07:00 IntakeIntake Total 1340 ml OutputOutput Total 550 ml 1100 ml BalanceBalance -550 ml 240 ml Results Result Diagram: 04/08/19 0533 04/08/19 0533 Results 24hrs Laboratory Tests Test 04/08/19 05:33 White Blood Count 7.0 # Red Blood Count 3.18 L Hemoglobin 9.8 L Hematocrit 32.9 L Mean Corpuscular Volume 103.5 H Mean Corpuscular Hemoglobin 30.8 Mean Corpuscular Hemoglobin Concent 29.8 L Red Cell Distribution Width 17.5 H Platelet Count 251 Mean Platelet Volume 9.6 Immature Granulocytes % 0.400 Neutrophils % 61.8 Lymphocytes % 26.7 Monocytes % 6.0 Eosinophils % 4.7 Basophils % 0.4 Nucleated Red Blood Cells % 0.0 Immature Granulocytes # 0.030 Neutrophils # 4.3 Lymphocytes # 1.9 Monocytes # 0.4 Eosinophils # 0.3 Basophils # 0.0 Nucleated Red Blood Cells # 0.0 Sodium Level 140 Potassium Level 4.2 Chloride Level 109 Carbon Dioxide Level 25 Anion Gap 6 Blood Urea Nitrogen 22 H Creatinine 0.86 Est Glomerular Filtrat Rate mL/min Glucose Level 96 Calcium Level 8.6 Medications Medication Current Medications Acetaminophen (Tylenol Liquid) 650 mg Q4H PRN GTB MILD PAIN 1-3; Start 03/17/19 at 21:30 Bisacodyl (Dulcolax Supp) 10 mg DAILY PRN [place] CONSTIPATION; Start 03/17/19 at 21:00 Chlorhexidine Gluconate (Peridex) 15 ml Q12H MM Last administered on 04/08/19 08:58; Admin Dose 15 ML; Start 03/17/19 at 21:00 Digoxin (Digoxin) 0.125 mg DAILY@13 PO Last administered on 04/08/19 14:00; Admin Dose 0.125 MG; Start 03/18/19 at 13:00 Docusate Sodium (Colace) 100 mg DAILY PO Last administered on 04/08/19 08:59; Admin Dose 100 MG; Start 03/18/19 at 09:00 Levetiracetam (Keppra Liquid) 250 mg Q12H GTB Last administered on 04/08/19 08:58; Admin Dose 250 MG; Start 03/17/19 at 21:00 Magnesium Hydroxide (Milk Of Mag) 30 ml DAILY PRN GTB CONSTIPATION; Start 03/17/19 at 21:00 Lansoprazole (Prevacid) 30 mg DAILY@06 GTB Last administered on 04/08/19at 05:43; Admin Dose 30 MG; Start 03/18/19 at 06:00 Epoetin Amor-epbx (RETACRIT(non-esrd)) 40,000 unit We@1700 SC Last administered on 04/02/19 17:08; Admin Dose 40,000 UNIT; Start 03/19/19 at 17:00 Multivit/Ca Carb/ B Cmplx/FA/Prenat (Renee-Antonio) 1 tab DAILY GTB Last administered on 04/08/19 08:59; Admin Dose 1 TAB; Start 03/21/19 at 09:00 Zinc Sulfate (Zinc Sulfate) 220 mg DAILY GTB Last administered on 04/08/19 08:59; Admin Dose 220 MG; Start 03/21/19 at 09:00 Collagenase (Santyl) 1 applic BID TOP Last administered on 04/08/19 08:58; Admin Dose 1 APPLIC; Start 03/20/19 at 16:28 Vancomycin HCl (Vanco Iv Per Pharmacy) VANCOMYCIN PER PHARMACY PER PROTOCOL XX ; Start 03/23/19 at 06:30 Piperacillin Sod/ Tazobactam Sod 100 ml @ 200 mls/hr Q6 IVPB Last administered on 04/08/19 11:19; Admin Dose 200 MLS/HR; Start 03/23/19 at 06:30 Acetylcysteine (Mucomyst) 2 ml Q6H RESP THERAPY NEB Last administered on 13:25; Admin Dose 2 ML; Start 03/24/19 at 11:00 Levalbuterol (Xopenex Hfa) 2 puff Q6H RESP THERAPY INH Last administered on 04/08/19 13:25; Admin Dose 2 PUFF; Start 03/24/19 at 14:00 Triamcinolone Acetonide (Kenalog 0.1% Cr) 1 applic BID TOP Last administered on 04/08/19 08:59; Admin Dose 1 APPLIC; Start 03/27/19 at 09:00 Vancomycin HCl 1.25 gm/Sodium Chloride 250 ml @ 83.333 mls/ hr Q48H IVPB Last administered on 04/08/19 05:41; Admin Dose 83.333 MLS/HR; Start 03/31/19 at 06:00 Sodium Phosphate (Neutra-Phos) 250 mg BID GTB Last administered on 04/08/19 08:58; Admin Dose 250 MG; Start 03/31/19 at 09:00 Metoprolol Tartrate (Lopressor) 25 mg Q8 GTB Last administered on 04/08/19 13:59; Admin Dose 25 MG; Start 03/31/19 at 14:00 Benazepril HCl (Lotensin) 20 mg BID PO Last administered on 04/08/19 08:59; Admin Dose 20 MG; Start 04/03/19 at 21:00 DEBO UMANA NP April 08, 2019 15:07
--- NOTE | 2019-04-08 18:51 | PN ---
Date/Time of Note Date/Time of Note DATE: 04/08/19 TIME: 18:48 Assessment/Plan VTE Prophylaxis Risk score (from Ns)>0 risk: 7 SCD applied (from Ns): Yes Pharmacological prophylaxis: NA/contraindicated Pharm contraindication: anticoag not tolerated Lines/Catheters IV C[facility] Type (from [facility]): Saline Lock Urinary Cath still in place: Yes Reason Cath still needed: urinary retention Assessment/Plan Hospital Course Patient continues on ventilatory support without distress, tolerates G-tube feeding, DC planning Assessment/Plan -Diverticular abscess, Dr Mario is following in surgical consultation. Abscess is too small for drainage by IR. Family did not want any surgical intervention. Recent repeat of CT of the abdomen and pelvis with redemonstration of diverticular abscess. Continue Vanco and Zosyn. Dr. Melendez is following in infection disease consultation. -Severe diverticulosis with spasm per colonoscopy. Dr. Galdamez is following in gastroenterology consultation. -Anemia. Stool for OB neg. Continue Epogen and Iron supplementation. Dr. Kiser is following in hematology consultation -Ventilator dependent respiratory failure with tracheostomy. Dr. Davenport is following in pulmonology consultation. -Acute on chronic kidney disease. Monitor BUN and creatinine. Dr. Grant is following in nephrology consultation -Atrial fibrillation, continue metoprolol -Diastolic congestive heart failure. Dr. Hernandez is following in cardiology consultation. -Pulmonary fibrosis, continue Pulmicort. -Dysphagia with G-tube. -Chronic encephalopathy -COPD -History of CVA, continue aspirin. -Seizure disorder/status epilepticus. Continue Keppra and Ativan as needed. -MRSA nares colonization Further recommendations based on clinical course. Plan of care discussed with Dr. Phillips. Result Diagram: 04/08/1933 04/08/1933 Results 24hrs Laboratory Tests Test 04/08/19 05:33 White Blood Count 7.0 # Red Blood Count 3.18 L Hemoglobin 9.8 L Hematocrit 32.9 L Mean Corpuscular Volume 103.5 H Mean Corpuscular Hemoglobin 30.8 Mean Corpuscular Hemoglobin Concent 29.8 L Red Cell Distribution Width 17.5 H Platelet Count 251 Mean Platelet Volume 9.6 Immature Granulocytes % 0.400 Neutrophils % 61.8 Lymphocytes % 26.7 Monocytes % 6.0 Eosinophils % 4.7 Basophils % 0.4 Nucleated Red Blood Cells % 0.0 Immature Granulocytes # 0.030 Neutrophils # 4.3 Lymphocytes # 1.9 Monocytes # 0.4 Eosinophils # 0.3 Basophils # 0.0 Nucleated Red Blood Cells # 0.0 Sodium Level 140 Potassium Level 4.2 Chloride Level 109 Carbon Dioxide Level 25 Anion Gap 6 Blood Urea Nitrogen 22 H Creatinine 0.86 Est Glomerular Filtrat Rate mL/min Glucose Level 96 Calcium Level 8.6 Exam/Review of Systems Exam Vitals Vital Signs Date Temp Pulse Resp B/P (MAP) Pulse Ox O2 O2 Flow FiO2 Time Delivery Rate 04/08/19 89 20 98 30 17:20 04/08/19 98.6 118/56 Mechanical 16:06 (76) Ventilator Intake and Output 04/07/19 04/07/19 04/08/19 1515:00 23:00 07:00 IntakeIntake Total 1020 ml 1340 ml OutputOutput Total 1550 ml 1100 ml BalanceBalance -530 ml 240 ml Exam Constitutional: awake, alert Neck: other (trach) Respiratory: diminished breath sounds Cardiovascular: regular rate and rhythm Gastrointestinal: soft, non-tender, other (G-tube) Extremities: normal pulses Results Results 24hrs Laboratory Tests Test 04/08/19 05:33 White Blood Count 7.0 # Red Blood Count 3.18 L Hemoglobin 9.8 L Hematocrit 32.9 L Mean Corpuscular Volume 103.5 H Mean Corpuscular Hemoglobin 30.8 Mean Corpuscular Hemoglobin Concent 29.8 L Red Cell Distribution Width 17.5 H Platelet Count 251 Mean Platelet Volume 9.6 Immature Granulocytes % 0.400 Neutrophils % 61.8 Lymphocytes % 26.7 Monocytes % 6.0 Eosinophils % 4.7 Basophils % 0.4 Nucleated Red Blood Cells % 0.0 Immature Granulocytes # 0.030 Neutrophils # 4.3 Lymphocytes # 1.9 Monocytes # 0.4 Eosinophils # 0.3 Basophils # 0.0 Nucleated Red Blood Cells # 0.0 Sodium Level 140 Potassium Level 4.2 Chloride Level 109 Carbon Dioxide Level 25 Anion Gap 6 Blood Urea Nitrogen 22 H Creatinine 0.86 Est Glomerular Filtrat Rate mL/min Glucose Level 96 Calcium Level 8.6 Medications Medication Current Medications Acetaminophen (Tylenol Liquid) 650 mg Q4H PRN GTB MILD PAIN 1-3; Start 03/17/19 at 21:30 Bisacodyl (Dulcolax Supp) 10 mg DAILY PRN [place] CONSTIPATION; Start 03/17/19 at 21:00 Chlorhexidine Gluconate (Peridex) 15 ml Q12H MM Last administered on 04/08/19 08:58; Admin Dose 15 ML; Start 03/17/19 at 21:00 Digoxin (Digoxin) 0.125 mg DAILY@13 PO Last administered on 04/08/19 14:00; Admin Dose 0.125 MG; Start 03/18/19 at 13:00 Docusate Sodium (Colace) 100 mg DAILY PO Last administered on 04/08/19 08:59; Admin Dose 100 MG; Start 03/18/19 at 09:00 Levetiracetam (Keppra Liquid) 250 mg Q12H GTB Last administered on 04/08/19 08:58; Admin Dose 250 MG; Start 03/17/19 at 21:00 Magnesium Hydroxide (Milk Of Mag) 30 ml DAILY PRN GTB CONSTIPATION; Start 03/17/19 at 21:00 Lansoprazole (Prevacid) 30 mg DAILY@06 GTB Last administered on 04/08/19 05:43; Admin Dose 30 MG; Start 03/18/19 at 06:00 Epoetin Amor-epbx (RETACRIT(non-esrd)) 40,000 unit We@1700 SC Last administered on 04/02/19 17:08; Admin Dose 40,000 UNIT; Start 03/19/19 at 17:00 Multivit/Ca Carb/ B Cmplx/FA/Prenat (Renee-Atnonio) 1 tab DAILY GTB Last administered on 04/08/19 08:59; Admin Dose 1 TAB; Start 03/21/19 at 09:00 Zinc Sulfate (Zinc Sulfate) 220 mg DAILY GTB Last administered on 04/08/19 08:59; Admin Dose 220 MG; Start 03/21/19 at 09:00 Collagenase (Santyl) 1 applic BID TOP Last administered on 04/08/19 08:58; Admin Dose 1 APPLIC; Start 03/20/19 at 16:28 Vancomycin HCl (Vanco Iv Per Pharmacy) VANCOMYCIN PER PHARMACY PER PROTOCOL XX ; Start 03/23/19 at 06:30 Piperacillin Sod/ Tazobactam Sod 100 ml @ 200 mls/hr Q6 IVPB Last administered on 04/08/19 17:57; Admin Dose 200 MLS/HR; Start 03/23/19 at 06:30 Acetylcysteine (Mucomyst) 2 ml Q6H RESP THERAPY NEB Last administered on 04/08/19 13:25; Admin Dose 2 ML; Start 03/24/19 at 11:00 Levalbuterol (Xopenex Hfa) 2 puff Q6H RESP THERAPY INH Last administered on 04/08/19 13:25; Admin Dose 2 PUFF; Start 03/24/19 at 14:00 Triamcinolone Acetonide (Kenalog 0.1% Cr) 1 applic BID TOP Last administered on 04/08/19 08:59; Admin Dose 1 APPLIC; Start 03/27/19 at 09:00 Vancomycin HCl 1.25 gm/Sodium Chloride 250 ml @ 83.333 mls/ hr Q48H IVPB Last administered on 04/08/19 05:41; Admin Dose 83.333 MLS/HR; Start 03/31/19 at 06:00 Sodium Phosphate (Neutra-Phos) 250 mg BID GTB Last administered on 04/08/19 08:58; Admin Dose 250 MG; Start 03/31/19 at 09:00 Metoprolol Tartrate (Lopressor) 25 mg Q8 GTB Last administered on 04/08/19 13:59; Admin Dose 25 MG; Start 03/31/19 at 14:00 Benazepril HCl (Lotensin) 20 mg BID PO Last administered on 04/08/19 08:59; Admin Dose 20 MG; Start 04/03/19 at 21:00 IMER VARGAS April 08, 2019 18:51
[2019-04-09] VITALS (24 sets, daily range): BP systolic 132–152; BP diastolic 64–84; PULSE 55–78; RESP 18–21
[2019-04-09] MEDS: PIPER-TAZO 3.375 GM IV (PMX) 100 ML IVPB SCH ×4 (00:25→18:38)
[2019-04-09] MEDS: LEVALBUTEROL (HFA) 15 GM INHALER INH SCH ×4 (01:25→19:40)
[2019-04-09] MEDS: ACETYLCYSTEINE 20% 4 ML VIAL NEB SCH ×4 (01:25→19:40)
[2019-04-09] MEDS: LANSOPRAZOLE 30 MG CAP GTB SCH (06:18)
[2019-04-09] MEDS: METOPROLOL 25 MG TAB GTB SCH ×3 (06:19→21:28)
--- NOTE | 2019-04-09 09:15 | PN ---
Date/Time of Note Date/Time of Note DATE: 04/09/19 TIME: 09:13 Assessment/Plan Lines/Catheters IV Catheter Type (from [facility]): Saline Lock Damon in Place (from [facility]): Yes Assessment/Plan Chief Complaint/Hosp Course 1. Sigmoid diverticulosis with a focal area of abnormal wall thickening of the proximal sigmoid colon with an adjacent gas containing fluid collection measuring 3.1 x 3.2 x 8.5 cm extending along the left iliopsoas/iliacus muscles. This could represent peridiverticular abscess/contained perforation. Not drainable per IR. Family does not want aggressive measures (OR). Continues on Abx per ID; repeat ct noted -supportive -nutritional optimization -abx per id -dc ok from surgical standpoint -eventual repeat CT if infectious symptoms 2. Anemia: No overt bleed noted -Monitor and transfuse as needed -Per hematology 3. VDRF: -Pulmonary toilet -Vent management per pulmonary 4. CKD -Limit nephrotoxic meds -Renally dose meds -Per renal 5. Atrial fibrillation history -Rate control 6. Heart failure: -Cardiac optimization 7. Dysphagia with PEG placement -Continue tube feeds with aspiration precautions Thank you. Patient seen and examined in collaboration with Dr. Harry Mario. Subjective 24 Hr Interval Summary Appears comfortable. Nonverbal indicators of pain not present. No labored breathing, congested cough, vomiting, diarrhea, seizure, rash, fevers. + Bowel function. Tolerating tube feeds. Exam/Review of Systems Vital Signs Vitals Vital Signs Date Temp Pulse Resp B/P (MAP) Pulse Ox O2 O2 Flow FiO2 Time Delivery Rate 04/09/19 63 08:31 04/09/19 20 99 30 07:44 04/09/19 98.3 141/65 Mechanical 07:03 (90) Ventilator Intake and Output 04/08/19 04/08/19 04/09/19 1515:00 23:00 07:00 IntakeIntake Total 1020 ml 1240 ml OutputOutput Total 1100 ml 1800 ml BalanceBalance -80 ml -560 ml Exam Free Text/Dictation Constitutional: alert; No oriented, No distress Psych: nl mood/affect Head: normocephalic, atraumatic Eyes: nl conjunctiva, EOMI, nl lids, nl sclera ENMT: nl external ears & nose, nl lips & teeth, mucosa pink and moist Neck: supple, non-tender, other (Tracheostomy) Respiratory: normal air movement, other (Vent); No congested cough Cardiovascular: s1s2 Gastrointestinal: soft, non-tender, other (PEG); No distended Genitourinary - Female: nl external genitalia Musculoskeletal: nl extremities to inspection, nl gait and stance Extremities: normal pulses; No edema Neurological: No nl mental status, No nl speech (Nonverbal, noncommunicative), No nl strength, No focal weakness Skin: No rash or lesions Results Result Diagram: 04/08/19 0533 04/08/19 0533 EULA HICKMAN NP April 09, 2019 09:15
--- NOTE | 2019-04-09 09:24 | PN ---
DATE: 04/09/2019 SUBJECTIVE: The patient is stable. No events overnight. OBJECTIVE: VITAL SIGNS: Blood pressure is 141/65, pulse 76, respirations 20, temperature 98.3. HEENT: Head is normocephalic. NECK: Supple. HEART: Regular rate. LUNGS: Show diminished breath sounds at the base. ABDOMEN: Soft, nontender to palpation without rebound or guarding. EXTREMITIES: Negative for clubbing, cyanosis, no edema. DERMATOLOGIC: No rashes. MUSCULOSKELETAL: No joint effusion. NEUROLOGIC: No change in exam. MEDICATIONS: Reviewed. LABORATORY DATA: Reviewed. IMAGING STUDIES: Reviewed. ASSESSMENT AND PLAN: 1. Chronic kidney disease stage III. Renal function is stable. Continue current treatment plan. 2. Hypokalemia and hypomagnesemia. Continue to monitor and replete as needed. 3. Mineral bone disorder, monitor calcium and phosphorus levels. 4. Anemia. Monitor hemoglobin and hematocrit levels. 5. Hypertension. Continue current blood pressure regimen. 6. Ventilator-dependent respiratory failure. Vent settings have been reviewed. 7. Intra-abdominal abscess. The patient is completing course of IV antibiotics. 8. Dysphagia. Continue tube feeding. 9. Chronic encephalopathy. No change. Dictated By: RAJINDER ATWOOD DO NR/NTS Conf#: [id number] DID#: [id number] CC: MENDEL FIELDS MD; JAYLEN LUGO MD;*EndCC*
[2019-04-09] MEDS: DOCUSATE SODIUM 100 MG CAP PO SCH (09:31)
[2019-04-09] MEDS: COLLAGENASE 5 GM (UD JAR) TOP SCH ×2 (09:31→21:27)
[2019-04-09] MEDS: CHLORHEXIDINE GLUCONATE 15 ML UD CUP MM SCH ×2 (09:31→21:27)
[2019-04-09] MEDS: NEUTRA-PHOS 250 MG PACKET GTB SCH ×2 (09:32→21:28)
[2019-04-09] MEDS: MULTIVIT/CA CARB/B CMPLX/FA TAB GTB SCH (09:32)
[2019-04-09] MEDS: ZINC SULFATE 220 MG CAP GTB SCH (09:32)
[2019-04-09] MEDS: LEVETIRACETAM (100 MG/ML) 5ML CUP GTB SCH ×2 (09:32→21:28)
[2019-04-09] MEDS: TRIAMCINOLONE ACET 0.1% 15 GM CR TOP SCH ×2 (09:34→21:30)
[2019-04-09] MEDS: BENAZEPRIL 20 MG TAB PO SCH (09:34)
[2019-04-09] MEDS: DIGOXIN 0.125 MG TAB PO SCH (12:10)
--- NOTE | 2019-04-09 13:56 | CONS ---
Assessment/Plan Assessment/Plan Hospital Course (Demo Recall) No acute changes, looks comfortable, no fevers Indwelling: Trach, PEG, Damon Antimicrobials: Vancomycin, Zosyn Physical examination: Chronically ill-appearing elderly woman in no distress. H ead atraumatic normocephalic neck is supple tracheostomy present chest rise symmetrical breath sounds diminished bases. Heart: S1-S2. Abdomen soft bowel sounds present. Assessment: 1. Sigmoid diverticulosis with abscess 2. Left lower lobe atelectasis ? PNA 3. Chronic respiratory failure and dysphagia 4. Seizure disorder 5. Acute on chronic encephalopathy 6. Chronic kidney disease 7. Urinary tract infection as per urinalysis Plan: Remains unchanged, continue on IV abx indefinitely, family refused aggressive measures, pt is DNR >dc to SNF Consultation Date/Type/Reason Admit Date/Time March 17, 2019 at 14:33 Initial Consult Date 03/18/19 Type of Consult id Requesting Provider: IMER VARGAS Date/Time of Note DATE: 04/09/19 TIME: 13:55 Exam/Review of Systems Exam Vitals Vital Signs Date Temp Pulse Resp B/P (MAP) Pulse Ox O2 O2 Flow FiO2 Time Delivery Rate 04/09/19 55 12:14 04/09/19 98.6 20 145/66 100 Mechanical 11:13 (92) Ventilator 04/09/19 30 07:44 Intake and Output 04/08/19 04/08/19 04/09/19 1515:00 23:00 07:00 IntakeIntake Total 1020 ml 1240 ml OutputOutput Total 1100 ml 1800 ml BalanceBalance -80 ml -560 ml Results Result Diagram: 04/08/19 0533 04/08/19 0533 Medications Medication Current Medications Acetaminophen (Tylenol Liquid) 650 mg Q4H PRN GTB MILD PAIN 1-3 Last administered on 04/09/19at 09:32; Admin Dose 650 MG; Start 03/17/19 at 21:30 Bisacodyl (Dulcolax Supp) 10 mg DAILY PRN [place] CONSTIPATION; Start 03/17/19 at 21:00 Chlorhexidine Gluconate (Peridex) 15 ml Q12H MM Last administered on 04/09/19at 09:31; Admin Dose 15 ML; Start 03/17/19 at 21:00 Digoxin (Digoxin) 0.125 mg DAILY@13 PO Last administered on 04/09/19 12:10; Admin Dose 0.125 MG; Start 03/18/19 at 13:00 Docusate Sodium (Colace) 100 mg DAILY PO Last administered on 04/09/19 09:31; Admin Dose 100 MG; Start 03/18/19 at 09:00 Levetiracetam (Keppra Liquid) 250 mg Q12H GTB Last administered on 04/09/19 09:32; Admin Dose 250 MG; Start 03/17/19 at 21:00 Magnesium Hydroxide (Milk Of Mag) 30 ml DAILY PRN GTB CONSTIPATION; Start 03/17/19 at 21:00 Lansoprazole (Prevacid) 30 mg DAILY@06 GTB Last administered on 04/09/19 06:18; Admin Dose 30 MG; Start 03/18/19 at 06:00 Epoetin Amor-epbx (RETACRIT(non-esrd)) 40,000 unit We@1700 SC Last administered on 04/02/19 17:08; Admin Dose 40,000 UNIT; Start 03/19/19 at 17:00 Multivit/Ca Carb/ B Cmplx/FA/Prenat (Renee-Antonio) 1 tab DAILY GTB Last administered on 04/09/19 09:32; Admin Dose 1 TAB; Start 03/21/19 at 09:00 Zinc Sulfate (Zinc Sulfate) 220 mg DAILY GTB Last administered on 04/09/19 09:32; Admin Dose 220 MG; Start 03/21/19 at 09:00 Collagenase (Santyl) 1 applic BID TOP Last administered on 04/09/19 09:31; Admin Dose 1 APPLIC; Start 03/20/19 at 16:28 Vancomycin HCl (Vanco Iv Per Pharmacy) VANCOMYCIN PER PHARMACY PER PROTOCOL XX ; Start 03/23/19 at 06:30 Piperacillin Sod/ Tazobactam Sod 100 ml @ 200 mls/hr Q6 IVPB Last administered on 04/09/19 12:10; Admin Dose 200 MLS/HR; Start 03/23/19 at 06:30 Acetylcysteine (Mucomyst) 2 ml Q6H RESP THERAPY NEB Last administered on 04/09/19 13:23; Admin Dose 2 ML; Start 03/24/19 at 11:00 Levalbuterol (Xopenex Hfa) 2 puff Q6H RESP THERAPY INH Last administered on 04/09/19 13:23; Admin Dose 2 PUFF; Start 03/24/19 at 14:00 Triamcinolone Acetonide (Kenalog 0.1% Cr) 1 applic BID TOP Last administered on 04/09/19 09:34; Admin Dose 1 APPLIC; Start 03/27/19 at 09:00 Vancomycin HCl 1.25 gm/Sodium Chloride 250 ml @ 83.333 mls/ hr Q48H IVPB Last administered on 04/08/19 05:41; Admin Dose 83.333 MLS/HR; Start 03/31/19 at 06:00 Sodium Phosphate (Neutra-Phos) 250 mg BID GTB Last administered on 04/09/19 09:32; Admin Dose 250 MG; Start 03/31/19 at 09:00 Metoprolol Tartrate (Lopressor) 25 mg Q8 GTB Last administered on 04/09/19 06:19; Admin Dose 25 MG; Start 03/31/19 at 14:00 Benazepril HCl (Lotensin) 20 mg BID PO Last administered on 04/09/19 09:34; Admin Dose 20 MG; Start 04/03/19 at 21:00 DEBO UMANA NP April 09, 2019 13:56
--- NOTE | 2019-04-09 14:59 | CONS ---
Assessment/Plan Assessment/Plan Hospital Course (Demo Recall) 73 yo with #Anemia -Hg stable at 9.8 -pt is noted to have a macrocytic anemia which is mostly likely 2/2 underlying myelodysplastic syndrome -continue epogen 40,000 units weekly -iron panel reveals mild iron deficiency. s/p ferrilict -vitamin b12 and folate levels are ok -past workup for anemia reveals a negative SPEP and no signs of hemolysis. will however recheck LDH, haptoglobin and retic -f/u colonoscopy results # fluid collection -measuring 3.1 x 3.2 x 8.5 cm extending along the left iliopsoas/iliacus muscles. This could represent peridiverticular abscess/contained perforation. -not drainable per IR -pt is currently on vancomycin and zosyn Consultation Date/Type/Reason Admit Date/Time March 17, 2019 at 14:33 Initial Consult Date 03/18/19 Type of Consult hematology Reason for Consultation anemia Requesting Provider: IMER VARGAS Date/Time of Note DATE: 04/09/19 TIME: 14:58 24 HR Interval Summary Free Text/Dictation no acute overnight events Exam/Review of Systems Exam Vitals Vital Signs Date Temp Pulse Resp B/P (MAP) Pulse Ox O2 O2 Flow FiO2 Time Delivery Rate 04/09/19 55 12:14 04/09/19 98.6 20 145/66 100 Mechanical 11:13 (92) Ventilator 04/09/19 30 07:44 Intake and Output 04/08/19 04/08/19 04/09/19 1515:00 23:00 07:00 IntakeIntake Total 1020 ml 1240 ml OutputOutput Total 1100 ml 1800 ml BalanceBalance -80 ml -560 ml Constitutional: frail Psych: confusion, depression Head: normocephalic Eyes: nl conjunctiva ENMT: nl external ears & nose Neck: supple Respiratory: clear to auscultation Cardiovascular: regular rate and rhythm Gastrointestinal: soft Musculoskeletal: nl extremities to inspection Results Result Diagram: 04/08/19 0533 04/08/19532 Medications Medication Current Medications Acetaminophen (Tylenol Liquid) 650 mg Q4H PRN GTB MILD PAIN 1-3 Last administered on 04/09/19at 09:32; Admin Dose 650 MG; Start 03/17/19 at 21:30 Bisacodyl (Dulcolax Supp) 10 mg DAILY PRN [place] CONSTIPATION; Start 03/17/19 at 21:00 Chlorhexidine Gluconate (Peridex) 15 ml Q12H MM Last administered on 04/09/19 09:31; Admin Dose 15 ML; Start 03/17/19 at 21:00 Digoxin (Digoxin) 0.125 mg DAILY@13 PO Last administered on 04/09/19 12:10; Admin Dose 0.125 MG; Start 03/18/19 at 13:00 Docusate Sodium (Colace) 100 mg DAILY PO Last administered on 04/09/19 09:31; Admin Dose 100 MG; Start 03/18/19 at 09:00 Levetiracetam (Keppra Liquid) 250 mg Q12H GTB Last administered on 04/09/19 09:32; Admin Dose 250 MG; Start 03/17/19 at 21:00 Magnesium Hydroxide (Milk Of Mag) 30 ml DAILY PRN GTB CONSTIPATION; Start 03/17/19 at 21:00 Lansoprazole (Prevacid) 30 mg DAILY@06 GTB Last administered on 04/09/19 06:18; Admin Dose 30 MG; Start 03/18/19 at 06:00 Epoetin Amor-epbx (RETACRIT(non-esrd)) 40,000 unit We@1700 SC Last administered on 04/02/19 17:08; Admin Dose 40,000 UNIT; Start 03/19/19 at 17:00 Multivit/Ca Carb/ B Cmplx/FA/Prenat (Renee-Antonio) 1 tab DAILY GTB Last administered on 04/09/19 09:32; Admin Dose 1 TAB; Start 03/21/19 at 09:00 Zinc Sulfate (Zinc Sulfate) 220 mg DAILY GTB Last administered on 04/09/19 09:32; Admin Dose 220 MG; Start 03/21/19 at 09:00 Collagenase (Santyl) 1 applic BID TOP Last administered on 04/09/19 09:31; Admin Dose 1 APPLIC; Start 03/20/19 at 16:28 Vancomycin HCl (Vanco Iv Per Pharmacy) VANCOMYCIN PER PHARMACY PER PROTOCOL XX ; Start 03/23/19 at 06:30 Piperacillin Sod/ Tazobactam Sod 100 ml @ 200 mls/hr Q6 IVPB Last administered on 04/09/19 12:10; Admin Dose 200 MLS/HR; Start 03/23/19 at 06:30 Acetylcysteine (Mucomyst) 2 ml Q6H RESP THERAPY NEB Last administered on 04/09/19 13:23; Admin Dose 2 ML; Start 03/24/19 at 11:00 Levalbuterol (Xopenex Hfa) 2 puff Q6H RESP THERAPY INH Last administered on 04/09/19 13:23; Admin Dose 2 PUFF; Start 03/24/19 at 14:00 Triamcinolone Acetonide (Kenalog 0.1% Cr) 1 applic BID TOP Last administered on 04/09/19 09:34; Admin Dose 1 APPLIC; Start 03/27/19 at 09:00 Vancomycin HCl 1.25 gm/Sodium Chloride 250 ml @ 83.333 mls/ hr Q48H IVPB Last administered on 04/08/19 05:41; Admin Dose 83.333 MLS/HR; Start 03/31/19 at 06:00 Sodium Phosphate (Neutra-Phos) 250 mg BID GTB Last administered on 04/09/19 09:32; Admin Dose 250 MG; Start 03/31/19 at 09:00 Metoprolol Tartrate (Lopressor) 25 mg Q8 GTB Last administered on 04/09/19 14:08; Admin Dose 25 MG; Start 03/31/19 at 14:00 Benazepril HCl (Lotensin) 20 mg BID PO Last administered on 04/09/19 09:34; Admin Dose 20 MG; Start 04/03/19 at 21:00 IJEOMA GROSSMAN M.D. April 09, 2019 14:59
--- NOTE | 2019-04-09 15:42 | PN ---
Date/Time of Note Date/Time of Note DATE: 04/09/19 TIME: 15:40 Assessment/Plan VTE Prophylaxis Risk score (from Ns)>0 risk: 6 SCD applied (from Ns): Yes Pharmacological prophylaxis: NA/contraindicated Pharm contraindication: anticoag not tolerated Lines/Catheters IV [facility] Saline Lock Urinary Cath still in place: Yes Reason Cath still needed: urinary retention Assessment/Plan Hospital Course Patient with faint rash over the upper extremities and trunk scabies scrape is negative, patient continues on antibiotics for diverticular abscess, remains stable, DC planning no senior care facility bed is available as per case management meeting in the morning. Assessment/Plan -Diverticular abscess, Dr Mario is following in surgical consultation. Abscess is too small for drainage by IR. Family did not want any surgical intervention. Recent repeat of CT of the abdomen and pelvis with redem onstration of diverticular abscess. Continue Vanco and Zosyn. Dr. Melendez is following in infection disease consultation. -Severe diverticulosis with spasm per colonoscopy. Dr. Galdamez is following in gastroenterology consultation. -Anemia. Stool for OB neg. Continue Epogen and Iron supplementation. Dr. Kiser is following in hematology consultation -Ventilator dependent respiratory failure with tracheostomy. Dr. Davenport is following in pulmonology consultation. -Acute on chronic kidney disease. Monitor BUN and creatinine. Dr. Grant is following in nephrology consultation -Atrial fibrillation, continue metoprolol -Diastolic congestive heart failure. Dr. Hernandez is following in cardiology consultation. -Pulmonary fibrosis, continue Pulmicort. -Dysphagia with G-tube. -Chronic encephalopathy -COPD -History of CVA, continue aspirin. -Seizure disorder/status epilepticus. Continue Keppra and Ativan as needed. -MRSA nares colonization Further recommendations based on clinical course. Plan of care discussed with Dr. Phillips. Result Diagram: 04/08/19 0504/08/19 0533 Exam/Review of Systems Exam Vitals Vital Signs Date Temp Pulse Resp B/P (MAP) Pulse Ox O2 O2 Flow FiO2 Time Delivery Rate 04/09/19 30 12:33 04/09/19 55 12:14 04/09/19 98.6 20 145/66 100 Mechanical 11:13 (92) Ventilator Intake and Output 04/08/19 04/08/19 04/09/19 1515:00 23:00 07:00 IntakeIntake Total 1020 ml 1240 ml OutputOutput Total 1100 ml 1800 ml BalanceBalance -80 ml -560 ml Exam Constitutional: awake, alert Neck: other (trach) Respiratory: diminished breath sounds Cardiovascular: regular rate and rhythm Gastrointestinal: soft, non-tender, other (G-tube) Extremities: normal pulses Medications Medication Current Medications Acetaminophen (Tylenol Liquid) 650 mg Q4H PRN GTB MILD PAIN 1-3 Last a dministered on 04/09/19 09:32; Admin Dose 650 MG; Start 03/17/19 at 21:30 Bisacodyl (Dulcolax Supp) 10 mg DAILY PRN [place] CONSTIPATION; Start 03/17/19 at 21:00 Chlorhexidine Gluconate (Peridex) 15 ml Q12H MM Last administered on 04/09/19 09:31; Admin Dose 15 ML; Start 03/17/19 at 21:00 Digoxin (Digoxin) 0.125 mg DAILY@13 PO Last administered on 04/09/19 12:10; Admin Dose 0.125 MG; Start 03/18/19 at 13:00 Docusate Sodium (Colace) 100 mg DAILY PO Last administered on 04/09/19 09:31; Admin Dose 100 MG; Start 03/18/19 at 09:00 Levetiracetam (Keppra Liquid) 250 mg Q12H GTB Last administered on 04/09/19 09:32; Admin Dose 250 MG; Start 03/17/19 at 21:00 Magnesium Hydroxide (Milk Of Mag) 30 ml DAILY PRN GTB CONSTIPATION; Start 03/17/19 at 21:00 Lansoprazole (Prevacid) 30 mg DAILY@06 GTB Last administered on 04/09/19 06:18; Admin Dose 30 MG; Start 03/18/19 at 06:00 Epoetin Amor-epbx (RETACRIT(non-esrd)) 40,000 unit We@1700 SC Last administered on 04/02/19 17:08; Admin Dose 40,000 UNIT; Start 03/19/19 at 17:00 Multivit/Ca Carb/ B Cmplx/FA/Prenat (Renee-Antonio) 1 tab DAILY GTB Last administered on 04/09/19 09:32; Admin Dose 1 TAB; Start 03/21/19 at 09:00 Zinc Sulfate (Zinc Sulfate) 220 mg DAILY GTB Last administered on 04/09/19 09:32; Admin Dose 220 MG; Start 03/21/19 at 09:00 Collagenase (Santyl) 1 applic BID TOP Last administered on 04/09/19 09:31; Admin Dose 1 APPLIC; Start 03/20/19 at 16:28 Vancomycin HCl (Vanco Iv Per Pharmacy) VANCOMYCIN PER PHARMACY PER PROTOCOL XX ; Start 03/23/19 at 06:30 Piperacillin Sod/ Tazobactam Sod 100 ml @ 200 mls/hr Q6 IVPB Last administered on 04/09/19 12:10; Admin Dose 200 MLS/HR; Start 03/23/19 at 06:30 Acetylcysteine (Mucomyst) 2 ml Q6H RESP THERAPY NEB Last administered on 04/09/19 13:23; Admin Dose 2 ML; Start 03/24/19 at 11:00 Levalbuterol (Xopenex Hfa) 2 puff Q6H RESP THERAPY INH Last administered on 04/09/19 13:23; Admin Dose 2 PUFF; Start 03/24/19 at 14:00 Triamcinolone Acetonide (Kenalog 0.1% Cr) 1 applic BID TOP Last administered on 04/09/19 09:34; Admin Dose 1 APPLIC; Start 03/27/19 at 09:00 Vancomycin HCl 1.25 gm/Sodium Chloride 250 ml @ 83.333 mls/ hr Q48H IVPB Last administered on 04/08/19 05:41; Admin Dose 83.333 MLS/HR; Start 03/31/19 at 06:00 Sodium Phosphate (Neutra-Phos) 250 mg BID GTB Last administered on 04/09/19 09:32; Admin Dose 250 MG; Start 03/31/19 at 09:00 Metoprolol Tartrate (Lopressor) 25 mg Q8 GTB Last administered on 04/09/19 14:08; Admin Dose 25 MG; Start 03/31/19 at 14:00 Benazepril HCl (Lotensin) 20 mg BID PO Last administered on 04/09/19 09:34; Admin Dose 20 MG; Start 04/03/19 at 21:00 IMER VARGAS April 09, 2019 15:42
[2019-04-09] MEDS: EPOETIN ALFA-EPBX (NON-ESRD 10,000 UNIT/ML VIAL SC SCH (17:00)
--- NOTE | 2019-04-09 17:12 | CONS ---
Assessment/Plan Assessment/Plan Assessment/Plan (Daily) Assessment/Plan (Daily) 73 yo female 1. Anemia of chronic disease --per DR Kiser note "pt is noted to have a macrocytic anemia which is mostly likely 2/2 underlying myelodysplastic syndrome" 2. Chronic kidney disease. 3. Hypertension. 4. Paroxysmal atrial fibrillation. 5. Cerebrovascular accident. 6. Possible meningioma. 7. Vent dependent respiratory failure. 8. Dysphagia, status post G-tube. 9. S/P colonoscopy 03/20 -found severe diverticulosis of left side of colon with spasm and poor prep 10. Walled off diverticular perforation abscess,pt totally asymptomatic 11. Patient has good pneumobilia most probably related to prior sphincterotomy PLAN: Continue present care. Repeat CT scan after few weeks Radiologist cannot drain the abscess, continue antibiotics Without drainage procedure it will be difficult for the abscess to heal Consultation Date/Type/Reason Admit Date/Time March 17, 2019 at 14:33 Initial Consult Date 03/18/19 Requesting Provider: IMER VARGAS Date/Time of Note DATE: 04/09/19 TIME: 17:12 24 HR Interval Summary Subjective hx not possible: pt non-verbal Exam/Review of Systems Exam Vitals Vital Signs Date Temp Pulse Resp B/P (MAP) Pulse Ox O2 O2 Flow FiO2 Time Delivery Rate 04/09/19 57 16:19 04/09/19 98.6 20 143/84 99 Mechanical 16:13 (103) Ventilator 04/09/19 30 16:05 Intake and Output 04/08/19 04/08/19 04/09/19 1515:00 23:00 07:00 IntakeIntake Total 1020 ml 1240 ml OutputOutput Total 1100 ml 1800 ml BalanceBalance -80 ml -560 ml ENMT: intubated Results Result Diagram: 04/08/19 0533 04/08/19 0533 Medications Medication Current Medications Acetaminophen (Tylenol Liquid) 650 mg Q4H PRN GTB MILD PAIN 1-3 Last administered on 04/09/19at 09:32; Admin Dose 650 MG; Start 03/17/19 at 21:30 Bisacodyl (Dulcolax Supp) 10 mg DAILY PRN [place] CONSTIPATION; Start 03/17/19 at 21:00 Chlorhexidine Gluconate (Peridex) 15 ml Q12H MM Last administered on 04/09/19 09:31; Admin Dose 15 ML; Start 03/17/19 at 21:00 Digoxin (Digoxin) 0.125 mg DAILY@13 PO Last administered on 04/09/19 12:10; Admin Dose 0.125 MG; Start 03/18/19 at 13:00 Docusate Sodium (Colace) 100 mg DAILY PO Last administered on 04/09/19 09:31; Admin Dose 100 MG; Start 03/18/19 at 09:00 Levetiracetam (Keppra Liquid) 250 mg Q12H GTB Last administered on 04/09/19 09:32; Admin Dose 250 MG; Start 03/17/19 at 21:00 Magnesium Hydroxide (Milk Of Mag) 30 ml DAILY PRN GTB CONSTIPATION; Start 03/17/19 at 21:00 Lansoprazole (Prevacid) 30 mg DAILY@06 GTB Last administered on 04/09/19 06:18; Admin Dose 30 MG; Start 03/18/19 at 06:00 Epoetin Amor-epbx (RETACRIT(non-esrd)) 40,000 unit We@1700 SC Last administered on 04/02/19 17:08; Admin Dose 40,000 UNIT; Start 03/19/19 at 17:00 Multivit/Ca Carb/ B Cmplx/FA/Prenat (Renee-Antonio) 1 tab DAILY GTB Last adm inistered on 04/09/19 09:32; Admin Dose 1 TAB; Start 03/21/19 at 09:00 Zinc Sulfate (Zinc Sulfate) 220 mg DAILY GTB Last administered on 04/09/19 09:32; Admin Dose 220 MG; Start 03/21/19 at 09:00 Collagenase (Santyl) 1 applic BID TOP Last administered on 04/09/19 09:31; Admin Dose 1 APPLIC; Start 03/20/19 at 16:28 Vancomycin HCl (Vanco Iv Per Pharmacy) VANCOMYCIN PER PHARMACY PER PROTOCOL XX ; Start 03/23/19 at 06:30 Piperacillin Sod/ Tazobactam Sod 100 ml @ 200 mls/hr Q6 IVPB Last administered on 04/09/19 12:10; Admin Dose 200 MLS/HR; Start 03/23/19 at 06:30 Acetylcysteine (Mucomyst) 2 ml Q6H RESP THERAPY NEB Last administered on 04/09/19 13:23; Admin Dose 2 ML; Start 03/24/19 at 11:00 Levalbuterol (Xopenex Hfa) 2 puff Q6H RESP THERAPY INH Last administered on 04/09/19 13:23; Admin Dose 2 PUFF; Start 03/24/19 at 14:00 Triamcinolone Acetonide (Kenalog 0.1% Cr) 1 applic BID TOP Last administered on 04/09/19 09:34; Admin Dose 1 APPLIC; Start 03/27/19 at 09:00 Vancomycin HCl 1.25 gm/Sodium Chloride 250 ml @ 83.333 mls/ hr Q48H IVPB Last administered on 04/08/19 05:41; Admin Dose 83.333 MLS/HR; Start 03/31/19 at 06:00 Sodium Phosphate (Neutra-Phos) 250 mg BID GTB Last administered on 04/09/19 09:32; Admin Dose 250 MG; Start 03/31/19 at 09:00 Metoprolol Tartrate (Lopressor) 25 mg Q8 GTB Last administered on 04/09/19 14:08; Admin Dose 25 MG; Start 03/31/19 at 14:00 Benazepril HCl (Lotensin) 20 mg BID PO Last administered on 04/09/19 09:34; Admin Dose 20 MG; Start 04/03/19 at 21:00 TYSON ALICEA MD April 09, 2019 17:12
--- NOTE | 2019-04-09 17:27 | CONS ---
Assessment/Plan Assessment/Plan Hospital Course (Demo Recall) IMP: 1.PVC-ongoing. EF 65% by echo 10/29. neg trop x 3 2.Bradycardia-to 50's 3.HTN-elevated 4.REsp failure-chronic s/p trach 5.SVT-short run. Again recurrent short run at approx 150-160 ? PAFL/AT 03/31. NO recurrence since increase to BB 6.anemia Recc: -Tele -Continue current BB as tolerated only -Continue current ACEI with slight uptitration -Continue abx's and f/u cx data -Continue digoxin as tolerated only -Continue mucomyst and bronchodilators Consultation Date/Type/Reason Admit Date/Time March 17, 2019 at 14:33 Initial Consult Date 03/18/19 Type of Consult Cardiology Reason for Consultation SVT Requesting Provider: IMER VARGAS Date/Time of Note DATE: 04/09/19 TIME: 17:25 Exam/Review of Systems Vital Signs Vitals Vital Signs Date Temp Pulse Resp B/P (MAP) Pulse Ox O2 O2 Flow FiO2 Time Delivery Rate 04/09/19 57 16:19 04/09/19 98.6 20 143/84 99 Mechanical 16:13 (103) Ventilator 04/09/19 30 16:05 Intake and Output 04/08/19 04/08/19 04/09/19 1515:00 23:00 07:00 IntakeIntake Total 1020 ml 1240 ml OutputOutput Total 1100 ml 1800 ml BalanceBalance -80 ml -560 ml Exam Exam Review of Systems: CONSTITUTIONAL: No fevers, chills. PULMONARY: No sob CARDIOVASCULAR: No chest pain/palpitations GASTROINTESTINAL: No nausea/vomiting. GENITOURINARY: No hematuria/dysuria. MUSCULOSKELETAL: No myagias/arthalgias. PSYCHIATRIC: The patient denies depression. NEUROLOGIC: Encephalopathic Constitutional: alert, other (sleeping) Psych: no complaints Head: normocephalic ENMT: mucosa pink and moist Neck: supple, jvd (9 cm water) Respiratory: diminished breath sounds Cardiovascular: regular rate and rhythm Gastrointestinal: soft, non-tender Musculoskeletal: muscle tone (normal) Extremities: edema (none) Neurological: other (No focal deficits) Labs Result Diagram: 04/08/19 0533 04/08/19532 Medications Medications Current Medications Acetaminophen (Tylenol Liquid) 650 mg Q4H PRN GTB MILD PAIN 1-3 Last administered on 04/09/19 09:32; Admin Dose 650 MG; Start 03/17/19 at 21:30 Bisacodyl (Dulcolax Supp) 10 mg DAILY PRN [place] CONSTIPATION; Start 03/17/19 at 21:00 Chlorhexidine Gluconate (Peridex) 15 ml Q12H MM Last administered on 04/09/19 09:31; Admin Dose 15 ML; Start 03/17/19 at 21:00 Digoxin (Digoxin) 0.125 mg DAILY@13 PO Last administered on 04/09/19 12:10; Admin Dose 0.125 MG; Start 03/18/19 at 13:00 Docusate Sodium (Colace) 100 mg DAILY PO Last administered on 04/09/19 09:31; Admin Dose 100 MG; Start 03/18/19 at 09:00 Levetiracetam (Keppra Liquid) 250 mg Q12H GTB Last administered on 04/09/19 09:32; Admin Dose 250 MG; Start 03/17/19 at 21:00 Magnesium Hydroxide (Milk Of Mag) 30 ml DAILY PRN GTB CONSTIPATION; Start 03/17/19 at 21:00 Lansoprazole (Prevacid) 30 mg DAILY@06 GTB Last administered on 04/09/19 06:18; Admin Dose 30 MG; Start 03/18/19 at 06:00 Epoetin Amor-epbx (RETACRIT(non-esrd)) 40,000 unit We@1700 SC Last administered on 04/02/19 17:08; Admin Dose 40,000 UNIT; Start 03/19/19 at 17:00 Multivit/Ca Carb/ B Cmplx/FA/Prenat (Renee-Antonio) 1 tab DAILY GTB Last administered on 04/09/19 09:32; Admin Dose 1 TAB; Start 03/21/19 at 09:00 Zinc Sulfate (Zinc Sulfate) 220 mg DAILY GTB Last administered on 04/09/19 09:32; Admin Dose 220 MG; Start 03/21/19 at 09:00 Collagenase (Santyl) 1 applic BID TOP Last administered on 04/09/19 09:31; Adm in Dose 1 APPLIC; Start 03/20/19 at 16:28 Vancomycin HCl (Vanco Iv Per Pharmacy) VANCOMYCIN PER PHARMACY PER PROTOCOL XX ; Start 03/23/19 at 06:30 Piperacillin Sod/ Tazobactam Sod 100 ml @ 200 mls/hr Q6 IVPB Last administered on 04/09/19 12:10; Admin Dose 200 MLS/HR; Start 03/23/19 at 06:30 Acetylcysteine (Mucomyst) 2 ml Q6H RESP THERAPY NEB Last administered on 04/09/19 13:23; Admin Dose 2 ML; Start 03/24/19 at 11:00 Levalbuterol (Xopenex Hfa) 2 puff Q6H RESP THERAPY INH Last administered on 04/09/19 13:23; Admin Dose 2 PUFF; Start 03/24/19 at 14:00 Triamcinolone Acetonide (Kenalog 0.1% Cr) 1 applic BID TOP Last administered on 04/09/19 09:34; Admin Dose 1 APPLIC; Start 03/27/19 at 09:00 Vancomycin HCl 1.25 gm/Sodium Chloride 250 ml @ 83.333 mls/ hr Q48H IVPB Last administered on 04/08/19 05:41; Admin Dose 83.333 MLS/HR; Start 03/31/19 at 06:00 Sodium Phosphate (Neutra-Phos) 250 mg BID GTB Last administered on 04/09/19 09:32; Admin Dose 250 MG; Start 03/31/19 at 09:00 Metoprolol Tartrate (Lopressor) 25 mg Q8 GTB Last administered on 04/09/19 14:08; Admin Dose 25 MG; Start 03/31/19 at 14:00 Benazepril HCl (Lotensin) 20 mg BID PO Last administered on 04/09/19 09:34; Admin Dose 20 MG; Start 04/03/19 at 21:00 LUIS FERGUSON April 09, 2019 17:27
[2019-04-09] MEDS: BENAZEPRIL 10 MG TAB PO SCH (21:29)
[2019-04-10] VITALS (17 sets, daily range): BP systolic 117–155; BP diastolic 58–69; PULSE 50–74; RESP 16–20
[2019-04-10] MEDS: PIPER-TAZO 3.375 GM IV (PMX) 100 ML IVPB SCH ×4 (00:05→17:41)
[2019-04-10] MEDS: ACETYLCYSTEINE 20% 4 ML VIAL NEB SCH ×3 (01:23→15:07)
[2019-04-10] MEDS: LEVALBUTEROL (HFA) 15 GM INHALER INH SCH ×3 (01:24→15:06)
[2019-04-10] MEDS: LANSOPRAZOLE 30 MG CAP GTB SCH (05:59)
[2019-04-10] MEDS: VANCOMYCIN HCL 1.25 GM in SOD CHLORIDE 0.9% 250 ML IVPB SCH (05:59)
[2019-04-10] MEDS: METOPROLOL 25 MG TAB GTB SCH ×2 (06:00→13:20)
[2019-04-10] MEDS: LEVETIRACETAM (100 MG/ML) 5ML CUP GTB SCH (07:58)
[2019-04-10] MEDS: MULTIVIT/CA CARB/B CMPLX/FA TAB GTB SCH (07:58)
[2019-04-10] MEDS: ZINC SULFATE 220 MG CAP GTB SCH (07:58)
[2019-04-10] MEDS: NEUTRA-PHOS 250 MG PACKET GTB SCH (07:58)
[2019-04-10] MEDS: CHLORHEXIDINE GLUCONATE 15 ML UD CUP MM SCH (08:08)
[2019-04-10] MEDS: DOCUSATE SODIUM 100 MG CAP PO SCH (08:09)
[2019-04-10] MEDS: COLLAGENASE 5 GM (UD JAR) TOP SCH (08:10)
[2019-04-10] MEDS: TRIAMCINOLONE ACET 0.1% 15 GM CR TOP SCH (08:10)
--- NOTE | 2019-04-10 09:03 | CONS ---
Assessment/Plan Assessment/Plan Hospital Course (Demo Recall) 73 yo with #Anemia -Hg stable at 9.8 -pt is noted to have a macrocytic anemia which is mostly likely 2/2 underlying myelodysplastic syndrome -continue epogen 40,000 units weekly -iron panel reveals mild iron deficiency. s/p ferrilict -vitamin b12 and folate levels are ok -past workup for anemia reveals a negative SPEP and no signs of hemolysis. will however recheck LDH, haptoglobin and retic -f/u colonoscopy results # fluid collection -measuring 3.1 x 3.2 x 8.5 cm extending along the left iliopsoas/iliacus muscles. This could represent peridiverticular abscess/contained perforation. -not drainable per IR -pt is currently on vancomycin and zosyn Consultation Date/Type/Reason Admit Date/Time March 17, 2019 at 14:33 Initial Consult Date 03/18/19 Type of Consult hematology Reason for Consultation anemia Requesting Provider: IMER VARGAS Date/Time of Note DATE: 04/10/19 TIME: 09:02 24 HR Interval Summary Free Text/Dictation no acute overnight events Exam/Review of Systems Exam Vitals Vital Signs Date Temp Pulse Resp B/P (MAP) Pulse Ox O2 O2 Flow FiO2 Time Delivery Rate 04/10/19 64 08:40 04/10/19 98.8 16 117/58 100 08:02 (77) 04/10/19 30 07:20 04/09/19 Mechanical 16:13 Ventilator Intake and Output 04/09/19 04/09/19 04/10/19 1515:00 23:00 07:00 IntakeIntake Total 100 ml 1120 ml 1220 ml OutputOutput Total 850 ml 1050 ml BalanceBalance 100 ml 270 ml 170 ml Constitutional: distress, frail Psych: confusion Head: normocephalic Eyes: nl conjunctiva ENMT: nl external ears & nose Neck: other (trach in place) Respiratory: clear to auscultation Cardiovascular: regular rate and rhythm Gastrointestinal: soft Musculoskeletal: nl extremities to inspection Extremities: normal pulses Results Result Diagram: 04/08/1953204/08/19532 Medications Medication Current Medications Acetaminophen (Tylenol Liquid) 650 mg Q4H PRN GTB MILD PAIN 1-3 Last administered on 04/09/19at 09:32; Admin Dose 650 MG; Start 03/17/19 at 21:30 Bisacodyl (Dulcolax Supp) 10 mg DAILY PRN [place] CONSTIPATION; Start 03/17/19 at 21:00 Chlorhexidine Gluconate (Peridex) 15 ml Q12H MM Last administered on 04/10/19 08:08; Admin Dose 15 ML; Start 03/17/19 at 21:00 Digoxin (Digoxin) 0.125 mg DAILY@13 PO Last administered on 04/09/19 12:10; Admin Dose 0.125 MG; Start 03/18/19 at 13:00 Docusate Sodium (Colace) 100 mg DAILY PO Last administered on 04/09/19 09:31; Admin Dose 100 MG; Start 03/18/19 at 09:00 Levetiracetam (Keppra Liquid) 250 mg Q12H GTB Last administered on 04/10/19 07:58; Admin Dose 250 MG; Start 03/17/19 at 21:00 Magnesium Hydroxide (Milk Of Mag) 30 ml DAILY PRN GTB CONSTIPATION; Start 03/17/19 at 21:00 Lansoprazole (Prevacid) 30 mg DAILY@06 GTB Last administered on 04/10/19 05:59; Admin Dose 30 MG; Start 03/18/19 at 06:00 Epoetin Amor-epbx (RETACRIT(non-esrd)) 40,000 unit We@1700 SC Last administered on 04/09/19 17:00; Admin Dose 40,000 UNIT; Start 03/19/19 at 17:00 Multivit/Ca Carb/ B Cmplx/FA/Prenat (Renee-Antonio) 1 tab DAILY GTB Last administered on 04/10/19 07:58; Admin Dose 1 TAB; Start 03/21/19 at 09:00 Zinc Sulfate (Zinc Sulfate) 220 mg DAILY GTB Last administered on 04/10/19 07:58; Admin Dose 220 MG; Start 03/21/19 at 09:00 Collagenase (Santyl) 1 applic BID TOP Last administered on 04/10/19 08:10; Admin Dose 1 APPLIC; Start 03/20/19 at 16:28 Vancomycin HCl (Vanco Iv Per Pharmacy) VANCOMYCIN PER PHARMACY PER PROTOCOL XX ; Start 03/23/19 at 06:30 Piperacillin Sod/ Tazobactam Sod 100 ml @ 200 mls/hr Q6 IVPB Last administered on 04/10/19 05:29; Admin Dose 200 MLS/HR; Start 03/23/19 at 06:30 Acetylcysteine (Mucomyst) 2 ml Q6H RESP THERAPY NEB Last administered on 04/10/19 08:26; Admin Dose 2 ML; Start 03/24/19 at 11:00 Levalbuterol (Xopenex Hfa) 2 puff Q6H RESP THERAPY INH Last administered on 04/10/19 08:26; Admin Dose 2 PUFF; Start 03/24/19 at 14:00 Triamcinolone Acetonide (Kenalog 0.1% Cr) 1 applic BID TOP Last administered on 04/10/19 08:10; Admin Dose 1 APPLIC; Start 03/27/19 at 09:00 Vancomycin HCl 1.25 gm/Sodium Chloride 250 ml @ 83.333 mls/ hr Q48H IVPB Last administered on 04/10/19 05:59; Admin Dose 83.333 MLS/HR; Start 03/31/19 at 06:00 Sodium Phosphate (Neutra-Phos) 250 mg BID GTB Last administered on 04/10/19 07:58; Admin Dose 250 MG; Start 03/31/19 at 09:00 Metoprolol Tartrate (Lopressor) 25 mg Q8 GTB Last administered on 04/10/19 06:00; Admin Dose 25 MG; Start 03/31/19 at 14:00 Benazepril HCl (Lotensin) 30 mg BID PO Last administered on 04/09/19 21:29; Admin Dose 30 MG; Start 04/09/19 at 21:00 IJEOMA GROSSMAN M.D. April 10, 2019 09:03
--- NOTE | 2019-04-10 10:32 | PN ---
DATE: 04/10/2019 SUBJECTIVE: The patient is stable. No events overnight. OBJECTIVE: VITAL SIGNS: Blood pressure is 117/58, pulse 50, respirations 16, temperature 98.8. HEENT: Head is normocephalic. NECK: Supple. HEART: Regular rate. LUNGS: Show diminished breath sounds at the base. ABDOMEN: Soft, nontender to palpation without rebound or guarding. EXTREMITIES: Negative for clubbing, cyanosis, no edema. DERMATOLOGIC: No rashes. MUSCULOSKELETAL: No joint effusion. NEUROLOGIC: No change in exam. MEDICATIONS: Reviewed. LABORATORY DATA: Reviewed. ASSESSMENT AND PLAN: 1. Chronic kidney disease, stage III. Renal function is stable. Continue current treatment plans, supportive care, renally dose all medications. 2. Hypokalemia and hypomagnesemia. Continue to monitor and replete as needed. 3. Mineral bone disorder, monitor calcium and phosphorus levels. 4. Anemia. Continue to monitor hemoglobin and hematocrit levels. 5. Hypertension. Continue current blood pressure regimen. 6. Ventilator-dependent respiratory failure. Vent settings have been reviewed. Continue to monitor . 7. Intraabdominal abscess. The patient is completing course of antibiotic therapy. 8. Dysphagia. Continue tube feeding. 9. Chronic encephalopathy. No change. Dictated By: RAJINDER ATWOOD DO NR/NTS Conf#: [id number] DID#: [id number] CC: MENDEL FIELDS MD; JAYLEN LUGO MD;*EndCC*
--- NOTE | 2019-04-10 11:00 | PN ---
Date/Time of Note Date/Time of Note DATE: 04/10/19 TIME: 10:59 Assessment/Plan Lines/Catheters IV Catheter Type (from [facility]): Peripheral IV Damon in Place (from [facility]): Yes Assessment/Plan Chief Complaint/Hosp Course 1. Sigmoid diverticulosis with a focal area of abnormal wall thickening of the proximal sigmoid colon with an adjacent gas containing fluid collection measuring 3.1 x 3.2 x 8.5 cm extending along the left iliopsoas/iliacus muscles. This could represent peridiverticular abscess/contained perforation. Not drainable per IR. Family does not want aggressive measures (OR). Continues on Abx per ID; repeat ct noted -supportive -nutritional optimization -abx per id -dc ok from surgical standpoint -repeat CT if infectious symptoms 2. Anemia: No overt bleed noted -Monitor and transfuse as needed -Per hematology 3. VDRF: -Pulmonary toilet -Vent management per pulmonary 4. CKD -Limit nephrotoxic meds -Renally dose meds -Per renal 5. Atrial fibrillation history -Rate control 6. Heart failure: -Cardiac optimization 7. Dysphagia with PEG placement -Continue tube feeds with aspiration precautions Thank you. Patient seen and examined in collaboration with Dr. Harry Mario. Subjective 24 Hr Interval Summary No overnight events. Appears comfortable. Nonverbal indicators of pain at present. Tolerating tube feeds. + Bowel function. No fevers, labored breathing, congested cough, vomiting, diarrhea, seizure, rash. Exam/Review of Systems Vital Signs Vitals Vital Signs Date Temp Pulse Resp B/P (MAP) Pulse Ox O2 O2 Flow FiO2 Time Delivery Rate 04/10/19 59 20 100 30 09:20 04/10/19 98.8 117/58 08:02 (77) 04/09/19 Mechanical 16:13 Ventilator Intake and Output 04/09/19 04/09/19 04/10/19 1515:00 23:00 07:00 IntakeIntake Total 100 ml 1120 ml 1220 ml OutputOutput Total 850 ml 1050 ml BalanceBalance 100 ml 270 ml 170 ml Exam Free Text/Dictation Constitutional: alert; No oriented, No distress Psych: nl mood/affect Head: normocephalic, atraumatic Eyes: nl conjunctiva, EOMI, nl lids, nl sclera ENMT: nl external ears & nose, nl lips & teeth, mucosa pink and moist Neck: supple, non-tender, other (Tracheostomy) Respiratory: normal air movement, other (Vent); No congested cough Cardiovascular: s1s2 Gastrointestinal: soft, non-tender, other (PEG); No distended Genitourinary - Female: nl external genitalia Musculoskeletal: nl extremities to inspection, nl gait and stance Extremities: normal pulses; No edema Neurological: No nl mental status, No nl speech (Nonverbal, noncommunicative), No nl strength, No focal weakness Skin: No rash or lesions Results Result Diagram: 04/08/19 0533 04/08/19 0533 EULA HICKMAN NP April 10, 2019 11:00
[2019-04-10] MEDS: BENAZEPRIL 10 MG TAB PO SCH (11:10)
[2019-04-10] MEDS: DIGOXIN 0.125 MG TAB PO SCH (12:03)
--- NOTE | 2019-04-10 12:14 | CONS ---
Assessment/Plan Assessment/Plan Hospital Course (Demo Recall) IMP: 1.PVC-improved on BB EF 65% by echo 10/29. neg trop x 3 2.Bradycardia-to 50's 3.HTN-elevated 4.REsp failure-chronic s/p trach 5.SVT-short run. Again recurrent short run at approx 150-160 ? PAFL/AT 03/31. NO recurrence since increase to BB 6.anemia Recc: -Tele -Continue current BB/ACEI with currently reasonable BP control -Continue abx's and f/u cx data -Continue digoxin as tolerated only -Continue mucomyst and bronchodilators -Follow volume status closely Consultation Date/Type/Reason Admit Date/Time March 17, 2019 at 14:33 Initial Consult Date 03/18/19 Type of Consult Cardiology Reason for Consultation SVT Requesting Provider: IMER VARGAS Date/Time of Note DATE: 04/10/19 TIME: 12:11 Exam/Review of Systems Vital Signs Vitals Vital Signs Date Temp Pulse Resp B/P (MAP) Pulse Ox O2 O2 Flow FiO2 Time Delivery Rate 04/10/19 98.8 65 16 145/60 100 11:07 (88) 04/10/19 30 09:20 04/09/19 Mechanical 16:13 Ventilator Intake and Output 04/09/19 04/09/19 04/10/19 1515:00 23:00 07:00 IntakeIntake Total 100 ml 1120 ml 1220 ml OutputOutput Total 850 ml 1050 ml BalanceBalance 100 ml 270 ml 170 ml Exam Exam Review of Systems: CONSTITUTIONAL: No fevers, chills. PULMONARY:trached CARDIOVASCULAR: No chest pain/palpitations GASTROINTESTINAL: No nausea/vomiting. GENITOURINARY: No hematuria/dysuria. MUSCULOSKELETAL: No myagias/arthalgias. PSYCHIATRIC: The patient denies depression. NEUROLOGIC: No weakness Constitutional: other (encephalopathic) Psych: no complaints Head: normocephalic ENMT: mucosa pink and moist Neck: supple, jvd (9 cm water) Respiratory: other (upper airway rhoncherous sounds) Cardiovascular: regular rate and rhythm Gastrointestinal: soft, non-tender Musculoskeletal: muscle weakness (mild generalized) Extremities: edema (trace/B) Labs Result Diagram: 04/08/1935 04/08/19532 Medications Medications Current Medications Acetaminophen (Tylenol Liquid) 650 mg Q4H PRN GTB MILD PAIN 1-3 Last administered on 04/09/19 09:32; Admin Dose 650 MG; Start 03/17/19 at 21:30 Bisacodyl (Dulcolax Supp) 10 mg DAILY PRN [place] CONSTIPATION; Start 03/17/19 at 21:00 Chlorhexidine Gluconate (Peridex) 15 ml Q12H MM Last administered on 04/10/19 08:08; Admin Dose 15 ML; Start 03/17/19 at 21:00 Digoxin (Digoxin) 0.125 mg DAILY@13 PO Last administered on 04/10/19 12:03; Admin Dose 0.125 MG; Start 03/18/19 at 13:00 Docusate Sodium (Colace) 100 mg DAILY PO Last administered on 04/09/19 09:31; Admin Dose 100 MG; Start 03/18/19 at 09:00 Levetiracetam (Keppra Liquid) 250 mg Q12H GTB Last administered on 04/10/19 07:58; Admin Dose 250 MG; Start 03/17/19 at 21:00 Magnesium Hydroxide (Milk Of Mag) 30 ml DAILY PRN GTB CONSTIPATION; Start 03/17/19 at 21:00 Lansoprazole (Prevacid) 30 mg DAILY@06 GTB Last administered on 04/10/19 05:59; Admin Dose 30 MG; Start 03/18/19 at 06:00 Epoetin Amor-epbx (RETACRIT(non-esrd)) 40,000 unit We@1700 SC Last administered on 04/09/19 17:00; Admin Dose 40,000 UNIT; Start 03/19/19 at 17:00 Multivit/Ca Carb/ B Cmplx/FA/Prenat (Renee-Antonio) 1 tab DAILY GTB Last administered on 04/10/19 07:58; Admin Dose 1 TAB; Start 03/21/19 at 09:00 Zinc Sulfate (Zinc Sulfate) 220 mg DAILY GTB Last administered on 04/10/19 07:58; Admin Dose 220 MG; Start 03/21/19 at 09:00 Collagenase (Santyl) 1 applic BID TOP Last administered on 04/10/19 08:10; Admin Dose 1 APPLIC; Start 03/20/19 at 16:28 Vancomycin HCl (Vanco Iv Per Pharmacy) VANCOMYCIN PER PHARMACY PER PROTOCOL XX ; Start 03/23/19 at 06:30 Piperacillin Sod/ Tazobactam Sod 100 ml @ 200 mls/hr Q6 IVPB Last administered on 04/10/19 12:03; Admin Dose 200 MLS/HR; Start 03/23/19 at 06:30 Acetylcysteine (Mucomyst) 2 ml Q6H RESP THERAPY NEB Last administered on 04/10/19 08:26; Admin Dose 2 ML; Start 03/24/19 at 11:00 Levalbuterol (Xopenex Hfa) 2 puff Q6H RESP THERAPY INH Last administered on 04/10/19 08:26; Admin Dose 2 PUFF; Start 03/24/19 at 14:00 Triamcinolone Acetonide (Kenalog 0.1% Cr) 1 applic BID TOP Last administered on 04/10/19 08:10; Admin Dose 1 APPLIC; Start 03/27/19 at 09:00 Vancomycin HCl 1.25 gm/Sodium Chloride 250 ml @ 83.333 mls/ hr Q48H IVPB Last administered on 04/10/19 05:59; Admin Dose 83.333 MLS/HR; Start 03/31/19 at 06:00 Sodium Phosphate (Neutra-Phos) 250 mg BID GTB Last administered on 04/10/19 07:58; Admin Dose 250 MG; Start 03/31/19 at 09:00 Metoprolol Tartrate (Lopressor) 25 mg Q8 GTB Last administered on 04/10/19 06:00; Admin Dose 25 MG; Start 03/31/19 at 14:00 Benazepril HCl (Lotensin) 30 mg BID PO Last administered on 04/10/19 11:10; Admin Dose 30 MG; Start 04/09/19 at 21:00 LUIS FERGUSON April 10, 2019 12:13
--- NOTE | 2019-04-10 13:08 | DS ---
Date/Time of Note Date/Time of Note DATE: 04/10/19 TIME: 13:06 Discharge Summary Admission/Discharge Info Admit Date/Time March 17, 2019 at 14:33 Discharge Date/Time Patient Condition: Stable Hx of Present Illness The patient is a 73-year-old female well known to me from previous several admissions. The patient has history of COPD, chronic respiratory failure, CVA, paroxysmal atrial fibrillation, seizure disorder, anemia of chronic kidney disease, history of diastolic congestive heart failure, pulmonary fibrosis. The patient also is status post cardiopulmonary arrest. The patient at baseline is noncommunicative and is vent dependent. The patient is being followed by Dr. Rambo Davenport from pulmonary standpoint at [facility]. I was called this morning regarding the patient's hemoglobin being around 7.8. The patient was sent to [facility] ER for further evaluation and management. The patient did not have any obvious hematemesis or melena. No reported hematuria. No reported any known peptic ulcer disease. The patient has a G-tube since 11/2018. The patient did not have any fever or chills. No history of leg edema. No history of any change in her respiratory status or mental status. The patient is awake however nonverbal and no useful communication was possible. The patient also was noted to have stable vital signs and her hemoglobin was noted to be 7.8 down from 9.2 back in 12/2018. Chemistry revealed BUN of 81 up from 53 approximately 3 months ago. The patient had normal AST and ALT, although slightly elevated. Chest x-ray revealed chronic interstitial changes, small right pleural effusion. CT of the head was negative for any intracranial hemorrhage, mass effect or midline shift. The patient was noted to have multiple areas of chronic infarct in the right parietal, occipital and temporal lobes with possible meningioma. The patient is being admitted for further evaluation and management. Hospital Course -Diverticular abscess, Dr Mario is following in surgical consultation. Abscess is too small for drainage by IR. Family did not want any surgical intervention. Recent repeat of CT of the abdomen and pelvis with redemonstration of diverticular abscess. Continue Vanco and Zosyn. Dr. Melendez is following in infection disease consultation. -Severe diverticulosis with spasm per colonoscopy. Dr. Galdamez is following in gastroenterology consultation. -Anemia. Stool for OB neg. Continue Epogen and Iron supplementation. Dr. Kiser is following in hematology consultation -Ventilator dependent respiratory failure with tracheostomy. Dr. Davenport is following in pulmonology consultation. -Acute on chronic kidney disease. Monitor BUN and creatinine. Dr. Grant is following in nephrology consultation -Atrial fibrillation, continue metoprolol -Diastolic congestive heart failure. Dr. Hernandez is following in cardiology consultation. -Pulmonary fibrosis, continue Pulmicort. -Dysphagia with G-tube. -Chronic encephalopathy -COPD -History of CVA, continue aspirin. -Seizure disorder/status epilepticus. Continue Keppra and Ativan as needed. -MRSA nares colonization -Faint rash over the upper extremities and trunk scabies scrape is negative. Plan of care discussed with Dr. Phillips. Home Meds Reported Medications Levalbuterol Hcl* (Xopenex*) 1.25 Mg/0.5 Ml Vial.neb, 1.25 MG INHALATION Q6H for WHEEZING AND SOB, EA 03/17/19 Levalbuterol Hcl* (Levalbuterol Hcl*) 1.25 Mg/0.5 Ml Vial.neb, 1.25 MG INHALATION Q3H, VIAL 03/17/19 Ascorbic Acid (Vitamin C) 500 Mg Tab, 500 MG GTB DAILY, TAB 03/17/19 Cran/Vitc/Mannose/Inulin/Brom (Uti-Stat Liquid) 3,875 Mg/30 Ml Liquid, 30 ML GTB BID 03/17/19 Acetaminophen* (Acetaminophen*) 500 MG Extra Strength Tablet, 1000 MG PO Q4H PRN for NEEDED, TAB UNTIL 04/16/19 03/17/19 Acetaminophen* (Tylenol*) 325 Mg Tablet, 650 MG GTB BID PRN for PAIN MGT, TAB 03/17/19 Acetaminophen* (Tylenol*) 325 Mg Tablet, 650 MG GTB Q4H PRN for MILD PAIN LEVEL 1-3, TAB AND FEVER 101F, END DATE 04/16/19 03/17/19 Acetaminophen* (Tylenol*) 325 Mg Tablet, 650 MG GTB NEEDED PRN for TRACH TUBE CHANGE, TAB 03/17/19 Epoetin Amor (Procrit) 4,000 Unit/1 Ml Vial, 4000 UNIT IJ Q WED, VIAL 03/17/19 Amino Acids/Protein Hydrolys (PRO-STAT LIQUID) 30 Ml Liquid.pkt, 30 ML GTB DAILY 03/17/19 Multivitamins* (Theragran*) 1 Tab Tab, 1 TAB GTB DAILY, TAB 03/17/19 Magnesium Hydroxide* (Milk Of Magnesia*) 400 Mg/5 Ml Oral.susp, 30 ML GTB NEEDED, ML END DATE 04/16/19 03/17/19 Metoprolol Tartrate* (Lopressor*) 25 Mg Tab, 25 MG GTB BID, #60 TAB HOLD IF SBP<110 OR HR<60 03/17/19 Levetiracetam* (Levetiracetam*) 500 Mg/5 Ml Solution, 2.5 ML PO Q12H, ML 03/17/19 Mineral Oil* (Fleet* Mineral Oil Enema) Unknown Strength Oil, 1 APPLIC MI NEEDED PRN for CONSTIPATION, ENEMA 03/17/19 Bisacodyl (Dulcolax) 10 Mg Supp.rect, 10 MG RC NEEDED, SUPP.RECT UNTIL 04/16/19 03/17/19 Digoxin* (Digox*) 125 Mcg Tablet, 0.125 MG GTB DAILY PRN for HOLD IF HR<60, TAB 03/17/19 Docusate Sodium* (Colace*) 100 Mg Capsule, 100 MG GTB DAILY, #30 CAP 03/17/19 Chlorhexidine Gluconate (Peridex) 473 Ml Mouthwash, 15 ML MM Q12H, BOTTLE 03/17/19 Follow-up Plan CBC BMP in 1 week Primary Care Provider Higinio Phillips MD Time spent on discharge: > 30 minutes IMER VARGAS April 10, 2019 13:07
--- NOTE | 2019-04-10 14:24 | CONS ---
Assessment/Plan Assessment/Plan Hospital Course (Demo Recall) No acute changes, looks comfortable, no fevers Indwelling: Trach, PEG, Damon Antimicrobials: Vancomycin, Zosyn Physical examination: Chronically ill-appearing elderly woman in no distress. H ead atraumatic normocephalic neck is supple tracheostomy present chest rise symmetrical breath sounds diminished bases. Heart: S1-S2. Abdomen soft bowel sounds present. Assessment: 1. Sigmoid diverticulosis with abscess 2. Left lower lobe atelectasis ? PNA 3. Chronic respiratory failure and dysphagia 4. Seizure disorder 5. Acute on chronic encephalopathy 6. Chronic kidney disease 7. Urinary tract infection as per urinalysis Plan: Remains unchanged, continue on IV abx indefinitely, family refused aggressive measures, pt is DNR, pending dc back to SNF Consultation Date/Type/Reason Admit Date/Time March 17, 2019 at 14:33 Initial Consult Date 03/18/19 Type of Consult id Requesting Provider: IMER VARGAS Date/Time of Note DATE: 04/10/19 TIME: 14:23 Exam/Review of Systems Exam Vitals Vital Signs Date Temp Pulse Resp B/P (MAP) Pulse Ox O2 O2 Flow FiO2 Time Delivery Rate 04/10/19 66 12:31 04/10/19 20 100 30 11:35 04/10/19 98.8 145/60 11:07 (88) 04/09/19 Mechanical 16:13 Ventilator Intake and Output 04/09/19 04/09/19 04/10/19 1515:00 23:00 07:00 IntakeIntake Total 100 ml 1120 ml 1220 ml OutputOutput Total 850 ml 1050 ml BalanceBalance 100 ml 270 ml 170 ml Results Result Diagram: 04/08/19 0533 04/08/19 0533 Medications Medication Current Medications Acetaminophen (Tylenol Liquid) 650 mg Q4H PRN GTB MILD PAIN 1-3 Last administered on 04/09/19at 09:32; Admin Dose 650 MG; Start 03/17/19 at 21:30 Bisacodyl (Dulcolax Supp) 10 mg DAILY PRN [place] CONSTIPATION; Start 03/17/19 at 21:00 Chlorhexidine Gluconate (Peridex) 15 ml Q12H MM Last administered on 04/10/19at 08:08; Admin Dose 15 ML; Start 03/17/19 at 21:00 Digoxin (Digoxin) 0.125 mg DAILY@13 PO Last administered on 04/10/19 12:03; Admin Dose 0.125 MG; Start 03/18/19 at 13:00 Docusate Sodium (Colace) 100 mg DAILY PO Last administered on 04/09/19 09:31; Admin Dose 100 MG; Start 03/18/19 at 09:00 Levetiracetam (Keppra Liquid) 250 mg Q12H GTB Last administered on 04/10/19 07:58; Admin Dose 250 MG; Start 03/17/19 at 21:00 Magnesium Hydroxide (Milk Of Mag) 30 ml DAILY PRN GTB CONSTIPATION; Start 03/17/19 at 21:00 Lansoprazole (Prevacid) 30 mg DAILY@06 GTB Last administered on 04/10/19 05:59; Admin Dose 30 MG; Start 03/18/19 at 06:00 Epoetin Amor-epbx (RETACRIT(non-esrd)) 40,000 unit We@1700 SC Last administered on 04/09/19 17:00; Admin Dose 40,000 UNIT; Start 03/19/19 at 17:00 Multivit/Ca Carb/ B Cmplx/FA/Prenat (Renee-Antonio) 1 tab DAILY GTB Last administered on 04/10/19 07:58; Admin Dose 1 TAB; Start 03/21/19 at 09:00 Zinc Sulfate (Zinc Sulfate) 220 mg DAILY GTB Last administered on 04/10/19 07:58; Admin Dose 220 MG; Start 03/21/19 at 09:00 Collagenase (Santyl) 1 applic BID TOP Last administered on 04/10/19 08:10; Admin Dose 1 APPLIC; Start 03/20/19 at 16:28 Vancomycin HCl (Vanco Iv Per Pharmacy) VANCOMYCIN PER PHARMACY PER PROTOCOL XX ; Start 03/23/19 at 06:30 Piperacillin Sod/ Tazobactam Sod 100 ml @ 200 mls/hr Q6 IVPB Last administered on 04/10/19 12:03; Admin Dose 200 MLS/HR; Start 03/23/19 at 06:30 Acetylcysteine (Mucomyst) 2 ml Q6H RESP THERAPY NEB Last administered on 04/10/19 08:26; Admin Dose 2 ML; Start 03/24/19 at 11:00 Levalbuterol (Xopenex Hfa) 2 puff Q6H RESP THERAPY INH Last administered on 04/10/19 08:26; Admin Dose 2 PUFF; Start 03/24/19 at 14:00 Triamcinolone Acetonide (Kenalog 0.1% Cr) 1 applic BID TOP Last administered on 04/10/19 08:10; Admin Dose 1 APPLIC; Start 03/27/19 at 09:00 Vancomycin HCl 1.25 gm/Sodium Chloride 250 ml @ 83.333 mls/ hr Q48H IVPB Last administered on 04/10/19 05:59; Admin Dose 83.333 MLS/HR; Start 03/31/19 at 06:00 Sodium Phosphate (Neutra-Phos) 250 mg BID GTB Last administered on 04/10/19 07:58; Admin Dose 250 MG; Start 03/31/19 at 09:00 Metoprolol Tartrate (Lopressor) 25 mg Q8 GTB Last administered on 04/10/19 13:20; Admin Dose 25 MG; Start 03/31/19 at 14:00 Benazepril HCl (Lotensin) 30 mg BID PO Last administered on 04/10/19 11:10; Admin Dose 30 MG; Start 04/09/19 at 21:00 DEBO UMANA NP April 10, 2019 14:24
--- NOTE | 2019-04-10 23:04 | CONS ---
DATE OF ADMISSION: 03/17/2019 DATE OF CONSULTATION: SUBJECTIVE: The patient is nonverbal on ventilator. As per the staff, no issue. OBJECTIVE VITAL SIGNS: Stable. GENERAL: The patient is afebrile. ABDOMEN: Totally benign, nontender and nondistended. LUNGS: The patient is on vent. No wheezes. Air entry is good. EXTREMITIES: No edema. NEUROLOGIC: The patient does not communicate. LABORATORY DATA: ____. Sodium is 140, BUN is 22 and creatinine is within normal limits. IMPRESSION: 1. Diverticular abscess. The patient is on antibiotic, not a candidate for drainage as per the radi ologist. 2. Vent dependent respiratory failure. 3. Pneumobilia. 4. Dysphagia, status post G-tube. 5. Cerebrovascular accident. 6. Atrial fibrillation. 7. Hypertension. 8. Anemia. PLAN: To continue antibiotic and repeat CAT scan after 2 to 3 weeks. Dictated By: TYSON NAVARRETE/MONROE Conf#: [id number] DID#: [id number]
== END 2019-04-10 18:39 | DRG 811 ==
LOC: E/R 12:05 → 6WM 14:33 → EDBEDREQ 18:08
PROVIDERS: ADMIT Internal Medicine; ATTEND Internal Medicine
PROC: 5A1955Z Respiratory Ventilation, Greater than 96 Consecutive Hours (ICD-10-PCS; 2019-03-17)
PROC: 30233N1 Transfusion of Nonautologous Red Blood Cells into Peripheral Vein, Percutaneous Approach (ICD-10-PCS; principal; 2019-03-18)
PROC: 0DJD8ZZ Inspection of Lower Intestinal Tract, Via Natural or Artificial Opening Endoscopic (ICD-10-PCS; 2019-03-19)
DX: D46.9 Myelodysplastic syndrome, unspecified (principal); L89.153 Pressure ulcer of sacral region, stage 3; J18.1 Lobar pneumonia, unspecified organism; J96.10 Chronic respiratory failure, unspecified whether with hypoxia or hypercapnia; I13.0 Hypertensive heart and chronic kidney disease with heart failure and stage 1 through stage 4 chronic kidney disease, or unspecified chronic kidney disease; I50.30 Unspecified diastolic (congestive) heart failure; N17.9 Acute kidney failure, unspecified; G93.49 Other encephalopathy; E46 Unspecified protein-calorie malnutrition; I47.1 Supraventricular tachycardia; K57.20 Diverticulitis of large intestine with perforation and abscess without bleeding; Z99.11 Dependence on respirator [ventilator] status; J98.11 Atelectasis; D63.0 Anemia in neoplastic disease; D63.1 Anemia in chronic kidney disease; D32.9 Benign neoplasm of meninges, unspecified; E87.6 Hypokalemia; E83.42 Hypomagnesemia; E78.5 Hyperlipidemia, unspecified; E86.0 Dehydration; G40.909 Epilepsy, unspecified, not intractable, without status epilepticus; I95.9 Hypotension, unspecified; I25.10 Atherosclerotic heart disease of native coronary artery without angina pectoris; J44.9 Chronic obstructive pulmonary disease, unspecified; I48.0 Paroxysmal atrial fibrillation; J84.10 Pulmonary fibrosis, unspecified; N18.3 Chronic kidney disease, stage 3 (moderate); R13.10 Dysphagia, unspecified; R21 Rash and other nonspecific skin eruption; Z22.322 Carrier or suspected carrier of Methicillin resistant Staphylococcus aureus; Z86.73 Personal history of transient ischemic attack (TIA), and cerebral infarction without residual deficits; Z68.25 Body mass index [BMI] 25.0-25.9, adult; Z86.74 Personal history of sudden cardiac arrest; Z87.891 Personal history of nicotine dependence; Z93.0 Tracheostomy status; Z93.1 Gastrostomy status; Z79.01 Long term (current) use of anticoagulants
CPT/HCPCS: 36415; 36430; 36600; 70450; 71045; 74176; 80048; 80053; 80162; 80202; 81001; 82270; 82565; 82607; 82668; 82728; 82746; 82803; 82962; 83010; 83540; 83605; 83615; 83735; 84100; 84443; 84484; 84520; 85025; 85045; 85610; 85730; 86850; 86900; 86901; 86920; 87075; 93005; 94002; 94003; 94640; 94664; 94667; 94668; J1610; J2543; J2916; J3010; J3370; J3475; J3480; J7042; J7050; P9016; Q5106; Q9967

== ENCOUNTER 2019-05-17 08:29 | Inpatient (IN) | payer MEDICARE, OTHER ==
[~2019-05-17] VITALS: Ht 165.1 cm; Wt 65.0 kg
[~2019-05-17 08:29] MED LIST changes: +ACET-141 PO; +ACET325T33 GTB; -ACET325T33 PO; -ALLO100T PO; +AMIN30LI GTB; -APIX2.5T PO; +ASC500 GTB; -ASC500 PO; -ATOR20TA38 PO; -BETH25TA PO; +BISA10SU55 RC; -BUDE0.5A INHALATION; +CHLO473M4 MM; +CRAN3875 GTB; -CYAN100080 PO; -DIGO125T PO; +DIGO125T19 GTB; +DOCU-144 GTB; -DOCU-144 PO; -EPO10ESRD SC; +EPOE40009 IJ; -FAMO20TA18 PO; -FER325 PO; -FOLI-49 PO; -FURO-110 PO; -IPRA3AMP29 INHALATION; -L. A1CAP12 PO; +LEVA1.2523 INHALATION; +LEVE500S8 PO; +MAGN400O19 GTB; -MAGN400O19 PO; -MAGN400T28 PO; -METH40VI IV; +METO-448 GTB; -METO-448 PO; -MORP10DI10 SL; +MULTI GTB; -MULTI PO; -ONDA4TAB13 PO; -SAN30GM TOP
[2019-05-17] MEDS ORDERED: SODIUM CHLORIDE 0.9% 1L BAG IV* STA (08:55)
[2019-05-17] MEDS ORDERED: CEFEPIME 2GM/50 ML (PMX) 50 ML IVPB STA (08:55)
[2019-05-17] MEDS ORDERED: VANCOMYCIN 1 GM (PMX) 250 ML IVPB ONE (09:00)
[2019-05-17] MEDS ORDERED: ALTEPLASE (CATHFLO) 2 MG INJ CATHETER ONE (09:30)
[2019-05-17] MEDS ORDERED: ACET160O41 GTB ×2 (10:15→10:17)
[2019-05-17] MEDS ORDERED: APIX5TAB GTB (10:17)
[2019-05-17] MEDS ORDERED: ARGI1POW19 GTB (10:19)
[2019-05-17] MEDS ORDERED: DIGO125T GTB (10:21)
[2019-05-17] MEDS ORDERED: DOCU-144 GTB (10:22)
[2019-05-17] MEDS ORDERED: LACT1TAB19 GTB (10:24)
[2019-05-17] MEDS ORDERED: IPRATROPIUM BROM (10:28)
[2019-05-17] MEDS ORDERED: EPO10ESRD SC (10:30)
[2019-05-17] MEDS ORDERED: LEVA0.3112 INHALATION (10:31)
[2019-05-17] MEDS ORDERED: LEVA1.2527 INHALATION (10:31)
[2019-05-17] MEDS ORDERED: METO-429 GTB (10:32)
[2019-05-17] MEDS ORDERED: NEPHRO-VITE GTB (10:33)
--- NOTE | 2019-05-17 10:33 | ERD ---
ER Documentation Chief Complaint Chief Complaint PT BIB RA 7 from [facility] with new onset Afib , with HR as high as 150's. HPI 73-year-old female brought to the emergency department by paramedics from her care facility for evaluation of fever and tachycardia. Patient is nonverbal providing no further history. According to my conversations with the daughter, the patient has had a fever for a few days. Although blood tests were performed at the care facility, there were no significant answers and as the patient became febrile again and tachycardic, she was referred to the emergency department for evaluation. According to my conversation with the primary doctor, patient has been treated as an outpatient but continues to not improve. I have reviewed the petroleum production engineer pre-hospital care. Pre-hospital vital signs were reviewed. Pre-hospital diagnostic tests were reviewed. Upon arrival, patient is nonverbal and provides no insight. ROS All systems reviewed and are negative except as per history of present illness. Medications Home Meds Reported Medications Lactobacillus Acidophilus (Acidophilus) 1 Each Tablet, 1 EACH GTB DAILY, TAB FOR 14 DAYS, STOP DATE 05/27/19 05/17/19 Docusate Sodium* (Colace*) 100 Mg Capsule, 100 MG GTB DAILY, #30 CAP 05/17/19 Digoxin* (Digitek*) 125 Mcg Tablet, 0.125 MG GTB DAILY PRN for HOLD IF HR<60, TA B 05/17/19 Arginine/Ascorbate Sod/Antonio AC (Arginaid Powder) 1 Each Powd.pack, 1 EACH GTB BID STOP DATE 07/06/19 05/17/19 Apixaban* (Eliquis*) 5 Mg Tablet, 5 MG GTB BID, TAB 05/17/19 Acetaminophen* (Acetaminophen* Susp) 160 Mg/5 Ml Oral.susp, 20 ML GTB DAILY PRN for PAIN MANAGEMENT, ML 05/17/19 Acetaminophen* (Acetaminophen* Susp) 160 Mg/5 Ml Oral.susp, 20 ML GTB Q4H PRN for PAIN, ML AND TEMP>100.5 05/17/19 Discontinued Reported Medications Levalbuterol Hcl* (Xopenex*) 1.25 Mg/0.5 Ml Vial.neb, 1.25 MG INHALATION Q6H for WHEEZING AND SOB, EA 03/17/19 Levalbuterol Hcl* (Levalbuterol Hcl*) 1.25 Mg/0.5 Ml Vial.neb, 1.25 MG INHALATION Q3H, VIAL 03/17/19 Ascorbic Acid (Vitamin C) 500 Mg Tab, 500 MG GTB DAILY, TAB 03/17/19 Cran/Vitc/Mannose/Inulin/Brom (Uti-Stat Liquid) 3,875 Mg/30 Ml Liquid, 30 ML GTB BID 03/17/19 Acetaminophen* (Acetaminophen*) 500 MG Extra Strength Tablet, 1000 MG PO Q4H PRN for NEEDED, TAB UNTIL 04/16/19 03/17/19 Acetaminophen* (Tylenol*) 325 Mg Tablet, 650 MG GTB BID PRN for PAIN MGT, TAB 03/17/19 Acetaminophen* (Tylenol*) 325 Mg Tablet, 650 MG GTB Q4H PRN for MILD PAIN LEVEL 1-3, TAB AND FEVER 101F, END DATE 04/16/19 03/17/19 Acetaminophen* (Tylenol*) 325 Mg Tablet, 650 MG GTB NEEDED PRN for TRACH TUBE CHANGE, TAB 03/17/19 Epoetin Amor (Procrit) 4,000 Unit/1 Ml Vial, 4000 UNIT IJ Q WED, VIAL 03/17/19 Amino Acids/Protein Hydrolys (PRO-STAT LIQUID) 30 Ml Liquid.pkt, 30 ML GTB DAILY 03/17/19 Multivitamins* (Theragran*) 1 Tab Tab, 1 TAB GTB DAILY, TAB 03/17/19 Magnesium Hydroxide* (Milk Of Magnesia*) 400 Mg/5 Ml Oral.susp, 30 ML GTB NE EDED, ML END DATE 04/16/19 03/17/19 Metoprolol Tartrate* (Lopressor*) 25 Mg Tab, 25 MG GTB BID, #60 TAB HOLD IF SBP<110 OR HR<60 03/17/19 Levetiracetam* (Levetiracetam*) 500 Mg/5 Ml Solution, 2.5 ML PO Q12H, ML 03/17/19 Mineral Oil* (Fleet* Mineral Oil Enema) Unknown Strength Oil, 1 APPLIC [place] NEEDED PRN for CONSTIPATION, ENEMA 03/17/19 Bisacodyl (Dulcolax) 10 Mg Supp.rect, 10 MG RC NEEDED, SUPP.RECT UNTIL 04/16/19 03/17/19 Digoxin* (Digox*) 125 Mcg Tablet, 0.125 MG GTB DAILY PRN for HOLD IF HR<60, TAB 03/17/19 Docusate Sodium* (Colace*) 100 Mg Capsule, 100 MG GTB DAILY, #30 CAP 03/17/19 Chlorhexidine Gluconate (Peridex) 473 Ml Mouthwash, 15 ML MM Q12H, BOTTLE 03/17/19 Allergies Allergies: Coded Allergies: No Known Allergy (Unverified , 05/17/19) PMhx/Soc History of Surgery: No Hx Neurological Disorder: Yes (confused; non verbal) Hx Respiratory Disorders: Yes (COPD, Chroic Resp Failure,Trach to vent , pul fibrosis) Hx Cardiac Disorders: Yes (HTN, AFIB, CVA,) Hx Psychiatric Problems: Yes (confused) Hx Miscellaneous Medical Probl: Yes (non communicative) Hx Alcohol Use: No Hx Substance Use: No Hx Tobacco Use: No Smoking Status: Never smoker Physical Exam Vitals Vital Signs Date Temp Pulse Resp B/P (MAP) Pulse Ox O2 O2 Flow FiO2 Time Delivery Rate 05/17/19 98.8 127 26 131/85 100 08:43 (100) Physical Exam General: Frail, bed bound, ill appearing HEENT: Mucous membranes dry, sclera nonicteric Neck: Tracheostomy noted. Ostomy patent. No inflammatory changes noted. No JVD. Cardiovascular: Rapid irregularly irregular rate and rhythm with no murmurs Lungs: Transmission of upper airway sounds. Abdomen: Soft with G-tube appreciated. Nontender to palpation. Bowel sounds noted. : Diaper in place and incontinent. Indwelling Damon catheter draining clear urine Extremities: Atrophic but atraumatic with no edema, cyanosis or clubbing. Neurologic: Baseline organic brain syndrome noted. Gag reflex week. Motor strength diminished in all 4 extremities but otherwise nonfocal. Skin: Skin breakdown noted per nursing note. Result Diagram: 05/17/1990405/17/19904 Results 24 hrs Laboratory Tests Test 05/17/19 09:05 05/17/19 09:33 White Blood Count 8.9 10^3/ul Red Blood Count 2.52 10^6/ul Hemoglobin 7.9 g/dl Hematocrit 26.5 % Mean Corpuscular Volume 105.2 fl Mean Corpuscular Hemoglobin 31.3 pg Mean Corpuscular Hemoglobin Concent 29.8 g/dl Red Cell Distribution Width 17.8 % Platelet Count 332 10^3/UL Mean Platelet Volume 10.4 fl Immature Granulocytes % 4.300 % Neutrophils % 71.0 % Lymphocytes % 16.8 % Monocytes % 5.4 % Eosinophils % 1.8 % Basophils % 0.7 % Nucleated Red Blood Cells % 0.2 /100WBC Immature Granulocytes # 0.380 10^3/ul Neutrophils # 6.3 10^3/ul Lymphocytes # 1.5 10^3/ul Monocytes # 0.5 10^3/ul Eosinophils # 0.2 10^3/ul Basophils # 0.1 10^3/ul Nucleated Red Blood Cells # 0.0 10^3/ul Prothrombin Time 15.0 Sec Prothrombin Time Ratio 1.2 INR International Normalized Ratio 1.17 Activated Partial Thromboplast Time 43.2 Sec Urine Color YELLOW Urine Clarity CLOUDY Urine pH 5.0 Urine Specific [place] 1.016 Urine Ketones NEGATIVE mg/dL Urine Nitrite NEGATIVE mg/dL Urine Bilirubin NEGATIVE mg/dL Urine Urobilinogen NEGATIVE mg/dL Urine Leukocyte Esterase 1+ [place]/ul Urine Microscopic RBC 20 /HPF Urine Microscopic WBC 24 /HPF Urine Squamous Epithelial Cells FEW /HPF Urine Bacteria FEW /HPF Urine Yeast (Budding) MANY /HPF Urine Hemoglobin NEGATIVE mg/dL Urine Glucose NEGATIVE mg/dL Urine Total Protein NEGATIVE mg/dl Sodium Level 147 mmol/L Potassium Level 4.0 mmol/L Chloride Level 111 mmol/L Carbon Dioxide Level 27 mmol/L Anion Gap 9 Blood Urea Nitrogen 97 mg/dl Creatinine 0.85 mg/dl Est Glomerular Filtrat Rate mL/min mL/min Glucose Level 142 mg/dl Calcium Level 9.3 mg/dl Total Bilirubin 0.1 mg/dl Direct Bilirubin 0.00 mg/dl Indirect Bilirubin 0.1 mg/dl Aspartate Amino Transf (AST/SGOT) 21 IU/L Alanine Aminotransferase (ALT/SGPT) 9 IU/L Alkaline Phosphatase 87 IU/L Troponin I 0.158 ng/ml Total Protein 7.0 g/dl Albumin 3.1 g/dl Globulin 3.90 g/dl Albumin/Globulin Ratio 0.79 POC Venous Lactate 2.5 mmol/L Current Medications Medications Dose Sig/Ale Start Time Status Last (Trade) Ordered Route PRN Stop Time Admin Dose Reason Admin Sodium 2,040 ml BOLUS OVER 2 05/17/19 DC 05/17/19 Chloride HOURS STAT 08:55 05/17/19 09:44 (NS) IV* 08:56 Cefepime HCl 50 ml @ ONCE STAT 05/17/19 DC 05/17/19 100 mls/hr IVPB 08:55 05/17/19 09:45 09:24 Vancomycin 250 ml @ ONCE ONCE 05/17/19 05/17/19 HCl 125 mls/hr IVPB 09:00 05/17/19 10:22 10:59 Alteplase, 2 mg ONCE ONCE 05/17/19 DC Recombinant CATHETER 09:30 05/17/19 (Cathflo 09:31 (Activase)) Procedures/MDM Patient was taken to a room, seen and evaluated. Comfort measures were initiated. Level of care was confirmed with the daughter Diagnostic tests were ordered and reviewed. 3 LEAD RHYTHM STRIP: Atrial fibrillation with rapid ventricular response EK lead EKG reviewed by myself: Atrial fibrillation with rapid ventricular response Normal [place] and intervals Nonspecific ST and T wave changes without ST elevation Impression: A. fib with RVR, nonspecific ischemic changes RADIOLOGY: Reviewed with the radiologist CONSULTATION: Alan was notified for admission REEVALUATION: 1030: Diagnostic tests were appreciated and arrangements were made for admission MEDICAL DECISION MAKIN-year-old female presents the emergency department likely septic. Source at this time appears to be a catheter associated urinary tract infection as well as the possibility of a ventilator associated, healthca re associated pneumonia. Patient has been started on broad-spectrum antibiotics and fluids. DNR status was confirmed with the patient's family who have requested fluids and antibiotics but no further aggressive interventions and continuation of current care. Severe Sepsis criteria: Infectious source: Catheter associated urinary tract infection, healthcare associated/ventilator associated pneumonia End organ damage indicated by: Lactate > 2.0 mmol/L Sepsis Management: Time of recognition of severe sepsis: Upon arrival Within 3 hours of recognition: Blood cultures x 2 before broad-spectrum antibiotics: Yes 30 ml/kg NS bolus Completed Initial lactate noted Repeat lactate pending Septic Shock Assessment: Any lactic acid > 4.0 No Persistent hypotension (SBP < 90 or 40 mmHg drop, MAP < 65) despite 30 mL/kg IV fluid bolus No A focused sepsis perfusion/reperfusion reassessment examination was performed post 30ml/kg bolus @ 1030: Vital signs noted per nursing note Persistent Hypotension Treatment: NA CRITICAL CARE: Time:>35 minutes Patient has a significant chance of clinical deterioration Treatments/Evaluations: Close monitoring and treatment of unstable vital signs, cardiorespiratory, and neurologic status, while maintaining tight balance of fluid, respiratory, and cardiac interventions. Departure Diagnosis: Primary Impression: Sepsis Additional Impressions: Anemia Ventilator associated pneumonia Catheter-associated urinary tract infection Atrial fibrillation with rapid ventricular response TON PUGA May 17, 2019 10:33
[2019-05-17] MEDS ORDERED: CHLO473M4 MM (10:34)
[2019-05-17] MEDS ORDERED: AMIN30LI GTB (10:35)
[2019-05-17] MEDS ORDERED: BUDE1AMP INHALATION (10:36)
[2019-05-17] MEDS ORDERED: BALS60OI TOP (10:39)
[2019-05-17] MEDS ORDERED: VIT500LI GTB (10:40)
[2019-05-17] MEDS ORDERED: ZINC220T GTB (10:41)
[2019-05-17] MEDS ORDERED: ONDANSETRON 4 MG INJ IV PRN (11:00)
[2019-05-17] MEDS ORDERED: ACETAMINOPHEN 325 MG TAB PO PRN (11:00)
--- NOTE | 2019-05-17 11:24 | CONS ---
DATE OF ADMISSION: 05/17/2019 DATE OF CONSULTATION: 05/17/2019 TYPE OF CONSULTATION: Infectious disease consult. REASON FOR CONSULTATION: Antibiotic management. HISTORY OF PRESENT ILLNESS: Tawana Dowd is a 73-year-old female who was brought in by kerry gardiner from a longterm facility with new onset of atrial fibrillation with a ventricular rate as high as 150. She also came in for evaluation of fever and tachycardia. According to the daughter, th e patient had fever for 2 days. Blood tests were performed at the care facility. There is no signif icant answers as the patient being febrile and tachycardic and she was referred to the emergency room . Her past problems include COPD, chronic respiratory failure with trach to vent, pulmonary fibrosis , hypertension, atrial fibrillation, CVA. The patient is confused and nonverbal, noncommunicative. FAMILY HISTORY: Noncontributory. SOCIAL HISTORY: She does not smoke, drink or abuse drugs at this point. ALLERGIES: NONE TO PENICILLIN, SULFA OR FOODS. MEDICATIONS: Per chart. REVIEW OF SYSTEMS: As per HPI. PHYSICAL EXAMINATION: GENERAL: She is a frail, bedbound, chronically ill-appearing female in no acute distress. VITAL SIGNS: She is afebrile, pulse is 127, respirations 26, blood pressure within normal limits. SKIN: Without generalized rash. HEENT: Within normal limits. NECK: Tracheostomy with ostomy patent. No CDI. No JVD. CHEST: Decreased breath sounds at the bases. HEART: Irregularly irregular rhythm. ABDOMEN: Soft, without organosplenomegaly or masses. G-tube appreciated. EXTREMITIES: She has an indwelling Damon draining clear urine. RECTAL, GENITAL AND EXTREMITIES: Otherwise, she is atrophic but atraumatic without cyanosis, clubbing , or edema. RECTAL AND GENITAL: Deferred. NEUROLOGIC: No focal neurological abnormality. ANCILLARY LABORATORY DATA: White count 8.9, H and H 7.9 and 26.5, platelet count 332,000. BUN and c reatinine 97/0.85, glucose of 142. HOSPITAL COURSE: The patient's chest x-ray showed bilateral right greater than the left opacities di ffusely involving the right lung and left perihilar regions reflecting pulmonary edema and/or pneumon ia. There is a left retrocardiac airspace disease or atelectasis, small bilateral pleural effusions, aortic atherosclerosis. Support devices in satisfactory positions. She has a trach, right upper ex tremity PICC line, a G-tube and a Damon catheter. IMPRESSION AND PLAN: We will continue her on therapy for pneumonia. Her urine has 1+ leukocyte thania rase, 24 white cells per high-power field, so she may have a urinary tract infection as well, but she has bilateral pneumonitis. We will continue her on vancomycin and cefepime. I will dictate my find ings to Dr. Phillips. Dictated By: MENDEL FIELDS MD, JD/NTS Conf#: [id number] DID#: [id number] CC: TON PUGA;*End*
--- NOTE | 2019-05-17 12:26 | HP ---
Date/Time of Note Date/Time of Note DATE: 05/17/19 TIME: 12:21 Assessment/Plan VTE Prophylaxis SCD contraindicated: other Pharmacological prophylaxis: other Pharm contraindication: other Lines/Catheters [facility] Saline Lock Assessment/Plan Assessment/Plan - Sepsis- Lactic acid- 1.6 - Admit to unit - id - Dr Melendez notified - Small bilateral pleural effusions. - Small bilateral pleural effusions. -Ventilator dependent respiratory failure with tracheostomy. - pulmonology consultation.- notified Catheter-associated urinary tract infection - id notified -Atrial fibrillation with rapid ventricular response. - Continue Eliquis and metoprolol. Dr. Romero notified in cardiology consultation. -Diastolic congestive heart failure. -Anemia of Chronic Kidney Diseases - . Continue Epogen and iron supplements. - monitor CBC -Pulmonary fibrosis, continue Pulmicort. -Dysphagia with G-tube. - aspiration precautions -Chronic encephalopathy -COPD -History of CVA, continue aspirin. -Seizure disorder/status epilepticus. - seizure precautions - Continue Keppra and Ativan as needed. -Hx of Diverticular abscess which was too small for drainage by radiology and family declined any surgical intervention. -Hx of Severe diverticulosis with spasm per colonoscopy. Further recommendations based on clinical course. Plan of care discussed with Dr. Phillips. Result Diagram: 05/17/1990405/17/19904 Results 24hrs Laboratory Tests Test 05/17/19 09:05 05/17/19 09:33 05/17/19 11:01 White Blood Count 8.9 # Red Blood Count 2.52 #L Hemoglobin 7.9 L Hematocrit 26.5 L Mean Corpuscular Volume 105.2 H Mean Corpuscular Hemoglobin 31.3 Mean Corpuscular Hemoglobin Concent 29.8 L Red Cell Distribution Width 17.8 H Platelet Count 332 # Mean Platelet Volume 10.4 Immature Granulocytes % 4.300 H Neutrophils % 71.0 Lymphocytes % 16.8 Monocytes % 5.4 Eosinophils % 1.8 Basophils % 0.7 Nucleated Red Blood Cells % 0.2 H Immature Granulocytes # 0.380 H Neutrophils # 6.3 Lymphocytes # 1.5 Monocytes # 0.5 Eosinophils # 0.2 Basophils # 0.1 Nucleated Red Blood Cells # 0.0 Prothrombin Time 15.0 H Prothrombin Time Ratio 1.2 INR International Normalized Ratio 1.17 Activated Partial Thromboplast Time 43.2 H Urine Color YELLOW Urine Clarity CLOUDY A Urine pH 5.0 Urine Specific [place] 1.016 Urine Ketones NEGATIVE Urine Nitrite NEGATIVE Urine Bilirubin NEGATIVE Urine Urobilinogen NEGATIVE Urine Leukocyte Esterase 1+ H Urine Microscopic RBC 20 H Urine Microscopic WBC 24 H Urine Squamous Epithelial Cells FEW Urine Bacteria FEW A Urine Yeast (Budding) MANY A Urine Hemoglobin NEGATIVE Urine Glucose NEGATIVE Urine Total Protein NEGATIVE Sodium Level 147 H Potassium Level 4.0 Chloride Level 111 H Carbon Dioxide Level 27 Anion Gap 9 Blood Urea Nitrogen 97 H Creatinine 0.85 Est Glomerular Filtrat Rate mL/min Glucose Level 142 Calcium Level 9.3 Total Bilirubin 0.1 L Direct Bilirubin 0.00 Indirect Bilirubin 0.1 Aspartate Amino Transf (AST/SGOT) 21 Alanine Aminotransferase (ALT/SGPT) 9 L Alkaline Phosphatase 87 Troponin I 0.158 *H Total Protein 7.0 Albumin 3.1 L Globulin 3.90 H Albumin/Globulin Ratio 0.79 POC Venous Lactate 2.5 *H Lactic Acid Level 2.1 *H HPI/ROS Admit Date/Time Admit Date/Time 10:40 ROS [id number] female, a SNF resident is admitted with fever and tachycardia.Patient is nonverbal providing no further history.The patient has history of COPD, chronic respiratory failure, CVA, paroxysmal atrial fibrillation, seizure disorder, anemia of chronic kidney disease, history of diastolic congestive heart failure, pulmonary fibrosis. The patient also is status post cardiopulmonary arrest. The patient at baseline is noncommunicative and is vent dependent.No reported seizure activity. Patient is admitted under Dr Phillips EKG:- 12 lead EKG Atrial fibrillation with rapid ventricular response Normal [place] and intervals Nonspecific ST and T wave changes without ST elevation Impression: A. fib with RVR, nonspecific ischemic changes CXR - 1. Bilateral, right greater than left opacities diffusely involving the right lung and left perihilar regions reflect a pulmonary edema and/or pneumonia. there is left retrocardiac airspace disease or atelectasis. 2. Small bilateral pleural effusions. 3. Aortic atherosclerosis. 4. Support devices in satisfactory position. ROS All systems reviewed and are negative except as per history of present illness. Limited because the patient was noncommunicative. Medications Home Meds Reported Medications Lactobacillus Acidophilus (Acidophilus) 1 Each Tablet, 1 EACH GTB DAILY, TAB FOR 14 DAYS, STOP DATE 05/27/19 05/17/19 Docusate Sodium* (Colace*) 100 Mg Capsule, 100 MG GTB DAILY, #30 CAP 05/17/19 Digoxin* (Digitek*) 125 Mcg Tablet, 0.125 MG GTB DAILY PRN for HOLD IF HR<60, TAB 05/17/19 Arginine/Ascorbate Sod/Antonio AC (Arginaid Powder) 1 Each Powd.pack, 1 EACH GTB BID STOP DATE 07/06/19 05/17/19 Apixaban* (Eliquis*) 5 Mg Tablet, 5 MG GTB BID, TAB 05/17/19 Acetaminophen* (Acetaminophen* Susp) 160 Mg/5 Ml Oral.susp, 20 ML GTB DAILY PRN for PAIN MANAGEMENT, ML 05/17/19 Acetaminophen* (Acetaminophen* Susp) 160 Mg/5 Ml Oral.susp, 20 ML GTB Q4H PRN for PAIN, ML AND TEMP>100.5 05/17/19 Discontinued Reported Medications Levalbuterol Hcl* (Xopenex*) 1.25 Mg/0.5 Ml Vial.neb, 1.25 MG INHALATION Q6H for WHEEZING AND SOB, EA 03/17/19 Levalbuterol Hcl* (Levalbuterol Hcl*) 1.25 Mg/0.5 Ml Vial.neb, 1.25 MG INHALATION Q3H, VIAL 03/17/19 Ascorbic Acid (Vitamin C) 500 Mg Tab, 500 MG GTB DAILY, TAB 03/17/19 Cran/Vitc/Mannose/Inulin/Brom (Uti-Stat Liquid) 3,875 Mg/30 Ml Liquid, 30 ML GTB BID 03/17/19 Acetaminophen* (Acetaminophen*) 500 MG Extra Strength Tablet, 1000 MG PO Q4H PRN for NEEDED, TAB UNTIL 04/16/19 03/17/19 Acetaminophen* (Tylenol*) 325 Mg Tablet, 650 MG GTB BID PRN for PAIN MGT, TAB 03/17/19 Acetaminophen* (Tylenol*) 325 Mg Tablet, 650 MG GTB Q4H PRN for MILD PAIN LEVEL 1-3, TAB AND FEVER 101F, END DATE 04/16/19 03/17/19 Acetaminophen* (Tylenol*) 325 Mg Tablet, 650 MG GTB NEEDED PRN for TRACH TUBE CHANGE, TAB 03/17/19 Epoetin Amor (Procrit) 4,000 Unit/1 Ml Vial, 4000 UNIT IJ Q WED, VIAL 03/17/19 Amino Acids/Protein Hydrolys (PRO-STAT LIQUID) 30 Ml Liquid.pkt, 30 ML GTB DAILY 03/17/19 Multivitamins* (Theragran*) 1 Tab Tab, 1 TAB GTB DAILY, TAB 03/17/19 Magnesium Hydroxide* (Milk Of Magnesia*) 400 Mg/5 Ml Oral.susp, 30 ML GTB NEEDED, ML END DATE 04/16/19 03/17/19 Metoprolol Tartrate* (Lopressor*) 25 Mg Tab, 25 MG GTB BID, #60 TAB HOLD IF SBP<110 OR HR<60 03/17/19 Levetiracetam* (Levetiracetam*) 500 Mg/5 Ml Solution, 2.5 ML PO Q12H, ML 03/17/19 Mineral Oil* (Fleet* Mineral Oil Enema) Unknown Strength Oil, 1 APPLIC [place] NEEDED PRN for CONSTIPATION, ENEMA 03/17/19 Bisacodyl (Dulcolax) 10 Mg Supp.rect, 10 MG RC NEEDED, SUPP.RECT UNTIL 04/16/19 03/17/19 Digoxin* (Digox*) 125 Mcg Tablet, 0.125 MG GTB DAILY PRN for HOLD IF HR<60, TAB 03/17/19 Docusate Sodium* (Colace*) 100 Mg Capsule, 100 MG GTB DAILY, #30 CAP 03/17/19 Chlorhexidine Gluconate (Peridex) 473 Ml Mouthwash, 15 ML MM Q12H, BOTTLE 03/17/19 Allergies Allergies: Coded Allergies: No Known Allergy (Unverified , 05/17/19) Subjective hx not possible: pt non-verbal, pt critical status PMH/Family/Social Past Medical History PMhx/Soc As stated above. History of Surgery: No Hx Neurological Disorder: Yes ( 2019, the patient was diagnosed with epilepsy, confused; non verbal) Hx Respiratory Disorders: Yes (COPD, Chroic Resp Failure,Trach to vent , pul fibrosis) Hx Cardiac Disorders: Yes (HTN, AFIB, CVA,) Hx Psychiatric Problems: Yes (confused) Hx Miscellaneous Medical Probl: Yes (non communicative) Hx Alcohol Use: No Hx Substance Use: No Hx Tobacco Use: No Smoking Status: Ex-smoker, quit smoking when she underwent tracheostomy PShx Status post tracheostomy and G-tube placement. Family hx No pertinent family history. Noncontributory for patient's condition. Medications Current Medications Ondansetron HCl (Zofran Inj) 4 mg ER BRIDGE PRN IV NAUSEA/VOMITING; Start 05/17/19 at 11:00; Stop 05/18/19 at 10:59 Acetaminophen (Tylenol Tab) 650 mg ER BRIDGE PRN PO .MILD PAIN 1-3 OR TEMP; Start 05/17/19 at 11:00; Stop 05/18/19 at 10:59 Coded Allergies: No Known Allergy (Unverified , 05/17/19) Past Surgical History Past Surgical Hx: other Family History Significant Family History: no pertinent family hx Social History Smoking Status: Never smoker Exam/Review of Systems Vital Signs Vitals Vital Signs Date Temp Pulse Resp B/P (MAP) Pulse Ox O2 O2 Flow FiO2 Time Delivery Rate 05/17/19 97.9 112 20 101/74 100 Mechanical 10:47 (83) Ventilator 05/17/19 50 09:00 Exam Constitutional: well developed, non-verbal, frail Psych: nl mood/affect Eyes: nl lids ENMT: nl external ears & nose Respiratory: diminished breath sounds Cardiovascular: nl pulses, other Gastrointestinal: soft, other Musculoskeletal: muscle weakness Extremities: normal pulses Neurological: unresponsive Skin: other FRANCESCO SIU May 17, 2019 12:26
--- NOTE | 2019-05-17 14:24 | CONS ---
Consultation Date/Type/Reason Admit Date/Time 10:40 Type of Consult Cardiology Date/Time of Note DATE: 05/17/19 TIME: 14:22 Hx of Present Illness Pt well known to me with a.fib - now mild RVR in a setting of PNA - will allow for now, hold Eliquis given decreased H/H - full note dictated #[id number] Past Medical History Home Meds Reported Medications Zinc Sulfate* (Zinc Sulfate*) 220 Mg Tablet, 220 MG GTB DAILY, TAB STOP DATE 06/06/19 05/17/19 Vit C-Ascorbate Ca-Ascorb Sod (Vitamin C) 500 Mg/15 Ml Liquid, 500 MG GTB BID, ML STOP DATE 08/05/19 05/17/19 Balsam [place] Oil (Venelex Ointment) 60 Gm Oint..gm., 1 APPLIC TOP DAILY, #1 TUB APPLY TORIGHT BUTTOCK DTPI TOPICALLY. FOR 14 DAYS,STOP DATE 05/18/19 05/17/19 Budesonide* (Pulmicort*) 1 Mg/2 Ml Ampul.neb, 0.5 ML INHALATION BID, #60 AMP 05/17/19 Amino Acids/Protein Hydrolys (PRO-STAT LIQUID) 30 Ml Liquid.pkt, 30 ML GTB BID 05/17/19 Chlorhexidine Gluconate (Peridex) 473 Ml Mouthwash, 15 ML MM BID, BOTTLE 05/17/19 [Nephro-Antonio] No Conflict Check, 0.8 MG GTB DAILY 05/17/19 Metoprolol Tartrate* (Lopressor*) 50 Mg Tab, 50 MG GTB BID, #60 TAB HOLD FOR SBP<110 OR HR<60 05/17/19 Levalbuterol* (Xopenex*) 0.31 Mg/3 Ml Nebu, 0.31 MG INHALATION Q8, EA 05/17/19 Levalbuterol Hcl* (Xopenex*) 1.25 Mg/3 Ml Vial.neb, 1.25 MG INHALATION QID for WHEEZING AND SOB, EA OR NEEDED 05/17/19 Epoetin Amor (Epogen) 10,000 Units/Ml Soln, 4000 UNITS SC Q WED, VIAL 05/17/19 [Ipratropium Brom.] No Conflict Check, 0.5 ML QID IPRATROPIUM BROMIDE SOLUTION 0.02% 0.5ML VIA VENT. 05/17/19 Lactobacillus Acidophilus (Acidophilus) 1 Each Tablet, 1 EACH GTB DAILY, TAB FOR 14 DAYS, STOP DATE 05/27/19 05/17/19 Docusate Sodium* (Colace*) 100 Mg Capsule, 100 MG GTB DAILY, #30 CAP 05/17/19 Digoxin* (Digitek*) 125 Mcg Tablet, 0.125 MG GTB DAILY PRN for HOLD IF HR<60, TAB 05/17/19 Arginine/Ascorbate Sod/Antonio AC (Arginaid Powder) 1 Each Powd.pack, 1 EACH GTB BID STOP DATE 07/06/19 05/17/19 Apixaban* (Eliquis*) 5 Mg Tablet, 5 MG GTB BID, TAB 05/17/19 Acetaminophen* (Acetaminophen* Susp) 160 Mg/5 Ml Oral.susp, 20 ML GTB DAILY PRN for PAIN MANAGEMENT, ML 05/17/19 Acetaminophen* (Acetaminophen* Susp) 160 Mg/5 Ml Oral.susp, 20 ML GTB Q4H PRN for PAIN, ML AND TEMP>100.5 05/17/19 Discontinued Reported Medications Levalbuterol Hcl* (Xopenex*) 1.25 Mg/0.5 Ml Vial.neb, 1.25 MG INHALATION Q6H for WHEEZING AND SOB, EA 03/17/19 Levalbuterol Hcl* (Levalbuterol Hcl*) 1.25 Mg/0.5 Ml Vial.neb, 1.25 MG INHALATION Q3H, VIAL 03/17/19 Ascorbic Acid (Vitamin C) 500 Mg Tab, 500 MG GTB DAILY, TAB 03/17/19 Cran/Vitc/Mannose/Inulin/Brom (Uti-Stat Liquid) 3,875 Mg/30 Ml Liquid, 30 ML GTB BID 03/17/19 Acetaminophen* (Acetaminophen*) 500 MG Extra Strength Tablet, 1000 MG PO Q4H PRN for NEEDED, TAB UNTIL 04/16/19 03/17/19 Acetaminophen* (Tylenol*) 325 Mg Tablet, 650 MG GTB BID PRN for PAIN MGT, TAB 03/17/19 Acetaminophen* (Tylenol*) 325 Mg Tablet, 650 MG GTB Q4H PRN for MILD PAIN LEVEL 1-3, TAB AND FEVER 101F, END DATE 04/16/19 03/17/19 Acetaminophen* (Tylenol*) 325 Mg Tablet, 650 MG GTB NEEDED PRN for TRACH TUBE CHANGE, TAB 03/17/19 Epoetin Amor (Procrit) 4,000 Unit/1 Ml Vial, 4000 UNIT IJ Q WED, VIAL 03/17/19 Amino Acids/Protein Hydrolys (PRO-STAT LIQUID) 30 Ml Liquid.pkt, 30 ML GTB DAILY 03/17/19 Multivitamins* (Theragran*) 1 Tab Tab, 1 TAB GTB DAILY, TAB 03/17/19 Magnesium Hydroxide* (Milk Of Magnesia*) 400 Mg/5 Ml Oral.susp, 30 ML GTB NEEDED, ML END DATE 04/16/19 03/17/19 Metoprolol Tartrate* (Lopressor*) 25 Mg Tab, 25 MG GTB BID, #60 TAB HOLD IF SBP<110 OR HR<60 03/17/19 Levetiracetam* (Levetiracetam*) 500 Mg/5 Ml Solution, 2.5 ML PO Q12H, ML 03/17/19 Mineral Oil* (Fleet* Mineral Oil Enema) Unknown Strength Oil, 1 APPLIC PA NEEDED PRN for CONSTIPATION, ENEMA 03/17/19 Bisacodyl (Dulcolax) 10 Mg Supp.rect, 10 MG RC NEEDED, SUPP.RECT UNTIL 04/16/19 03/17/19 Digoxin* (Digox*) 125 Mcg Tablet, 0.125 MG GTB DAILY PRN for HOLD IF HR<60, TAB 03/17/19 Docusate Sodium* (Colace*) 100 Mg Capsule, 100 MG GTB DAILY, #30 CAP 03/17/19 Chlorhexidine Gluconate (Peridex) 473 Ml Mouthwash, 15 ML MM Q12H, BOTTLE 03/17/19 Medications Current Medications Ondansetron HCl (Zofran Inj) 4 mg ER BRIDGE PRN IV NAUSEA/VOMITING; Start 05/17/19 at 11:00; Stop 05/18/19 at 10:59 Acetaminophen (Tylenol Tab) 650 mg ER BRIDGE PRN PO .MILD PAIN 1-3 OR TEMP; Start 05/17/19 at 11:00; Stop 05/18/19 at 10:59 Allergies: Coded Allergies: No Known Allergy (Unverified , 05/17/19) Past Surgical History Past Surgical Hx: other Social History Smoking Status: Never smoker Exam/Review of Systems Vital Signs Vitals Vital Signs Date Temp Pulse Resp B/P (MAP) Pulse Ox O2 O2 Flow FiO2 Time Delivery Rate 05/17/19 98.8 106 20 108/92 100 Mechanical 13:11 (97) Ventilator 05/17/19 50 09:00 Labs Result Diagram: 05/17/19 0905 05/17/19 0905 Results 24hrs Laboratory Tests Test 05/17/19 09:05 05/17/19 09:33 05/17/19 11:01 05/17/19 13:11 White Blood Count 8.9 # Red Blood Count 2.52 #L Hemoglobin 7.9 L Hematocrit 26.5 L Mean Corpuscular Volume 105.2 H Mean Corpuscular 31.3 Hemoglobin Mean Corpuscular 29.8 L Hemoglobin Concent Red Cell Distribution 17.8 H Width Platelet Count 332 # Mean Platelet Volume 10.4 Immature Granulocytes % 4.300 H Neutrophils % 71.0 Lymphocytes % 16.8 Monocytes % 5.4 Eosinophils % 1.8 Basophils % 0.7 Nucleated Red Blood 0.2 H Cells % Immature Granulocytes # 0.380 H Neutrophils # 6.3 Lymphocytes # 1.5 Monocytes # 0.5 Eosinophils # 0.2 Basophils # 0.1 Nucleated Red Blood 0.0 Cells # Prothrombin Time 15.0 H Prothrombin Time Ratio 1.2 INR International 1.17 Normalized Ratio Activated 43.2 H Partial Thromboplast Time Urine Color YELLOW Urine Clarity CLOUDY A Urine pH 5.0 Urine Specific [place] 1.016 Urine Ketones NEGATIVE Urine Nitrite NEGATIVE Urine Bilirubin NEGATIVE Urine Urobilinogen NEGATIVE Urine Leukocyte Esterase 1+ H Urine Microscopic RBC 20 H Urine Microscopic WBC 24 H Urine Squamous FEW Epithelial Cells Urine Bacteria FEW A Urine Yeast (Budding) MANY A Urine Hemoglobin NEGATIVE Urine Glucose NEGATIVE Urine Total Protein NEGATIVE Sodium Level 147 H Potassium Level 4.0 Chloride Level 111 H Carbon Dioxide Level 27 Anion Gap 9 Blood Urea Nitrogen 97 H Creatinine 0.85 Est Glomerular Filtrat Rate mL/min Glucose Level 142 Calcium Level 9.3 Total Bilirubin 0.1 L Direct Bilirubin 0.00 Indirect Bilirubin 0.1 Aspartate Amino 21 Transf (AST/SGOT) Alanine 9 L Aminotransferase (ALT/SG PT) Alkaline Phosphatase 87 Troponin I 0.158 *H Total Protein 7.0 Albumin 3.1 L Globulin 3.90 H Albumin/Globulin Ratio 0.79 POC Venous Lactate 2.5 *H Lactic Acid Level 2.1 *H 1.6 Medications Medications Current Medications Ondansetron HCl (Zofran Inj) 4 mg ER BRIDGE PRN IV NAUSEA/VOMITING; Start 05/17/19 at 11:00; Stop 05/18/19 at 10:59 Acetaminophen (Tylenol Tab) 650 mg ER BRIDGE PRN PO .MILD PAIN 1-3 OR TEMP; Start 05/17/19 at 11:00; Stop 05/18/19 at 10:59 KINGSTON HEARD MD May 17, 2019 14:24
[2019-05-18] VITALS (19 sets, daily range): BP systolic 120–147; BP diastolic 54–88; PULSE 73–115; RESP 16–28; Ht 165.1 cm; Wt 65.0 kg
[2019-05-18] MEDS ORDERED: PENDING SANTYL ORDER FOR WOUND CARE XX PRN (01:00)
[2019-05-18] MEDS ORDERED: DIGOXIN 0.125 MG TAB GTB PRN (01:30)
[2019-05-18] MEDS: LEVALBUTEROL (HFA) 15 GM INHALER INH SCH ×4 (02:00→19:35)
[2019-05-18] MEDS ORDERED: LEVALBUTEROL (NEB) 0.63 MG/3 ML AMP HHN SCH (02:00)
[2019-05-18] MEDS: DEXTROSE 5% 1,000 ML IV SCH ×2 (02:30→18:23)
[2019-05-18] MEDS ORDERED: ACETAMINOPHEN 650MG/20.3ML CUP GTB PRN (05:00)
[2019-05-18] MEDS ORDERED: MEROPENEM 1 GM/50ML(PMX) 50 ML IVPB SCH (06:00)
[2019-05-18] MEDS: BUDESONIDE (NEB) 0.5MG/2ML AMP INH SCH ×3 (08:10→19:35)
[2019-05-18] MEDS ORDERED: [UNRECOGNIZED DRUG - OTHER] GTB SCH (09:00)
[2019-05-18] MEDS: BALSAM PERU/CASTOR OIL 60 GM TUBE TOP SCH (09:29)
[2019-05-18] MEDS: ZINC SULFATE 220 MG CAP GTB SCH (09:29)
[2019-05-18] MEDS: CHLORHEXIDINE GLUCONATE 15 ML UD CUP MM SCH ×2 (09:29→20:17)
[2019-05-18] MEDS: L ACIDOPHIL/B LACTIS/B LONGUM CAPSULE GTB SCH (09:29)
[2019-05-18] MEDS: ASCORBIC ACID 500 MG TAB GTB SCH ×2 (09:29→20:18)
[2019-05-18] MEDS: METOPROLOL 50 MG TAB GTB SCH ×2 (09:30→20:18)
[2019-05-18] MEDS: APIXABAN 5 MG TABLET GTB SCH ×2 (09:30→20:18)
[2019-05-18] MEDS: DIGOXIN 0.125 MG TAB GTB SCH (09:30)
--- NOTE | 2019-05-18 12:30 | CONS ---
Consult Date/Type/Reason Admit Date/Time May 17, 2019 at 10:35 Initial Consult Date Date/Time of Note DATE: 05/18/19 TIME: 12:27 Subjective NO acute events - pt comfortable - rate better controlled - con't anti- coagulation now. ROS: No fever, no chills, no nausea, no vomiting, no diarrhea/constipation - per nurse Objective Vitals Vital Signs Date Temp Pulse Resp B/P (MAP) Pulse Ox O2 O2 Flow FiO2 Time Delivery Rate 05/18/19 99.0 86 18 144/66 100 Trach 11:25 (92) Collar 05/18/19 35 09:39 Intake and Output 05/17/19 05/17/19 05/18/19 1515:00 23:00 07:00 IntakeIntake Total 550 ml OutputOutput Total 1750 ml BalanceBalance -1200 ml Exam General: WN/WD/NAD, AOx 0 HEENT: Unicetric/atraumatic/EOMI (does not follow commands) NECK: trach Lymph: no lymphadenopathy HEART: irregular with no S3, II/ systolic murmur at apex LUNGS: Coarse sounds ABD: soft, NT, ND, +BS : Intact Neuro: s/p CVA SKIN: chronic changes EXT: trace edema Results/Medications Result Diagram: 05/18/1961805/18/19618 Results 24 hrs Laboratory Tests Test 05/17/19 13:11 05/18/19 06:19 Lactic Acid Level 1.6 2.2 *H White Blood Count 8.4 Red Blood Count 2.35 L Hemoglobin 7.3 L Hematocrit 24.5 L Mean Corpuscular Volume 104.3 H Mean Corpuscular Hemoglobin 31.1 Mean Corpuscular Hemoglobin Concent 29.8 L Red Cell Distribution Width 17.8 H Platelet Count 327 Mean Platelet Volume 10.1 Immature Granulocytes % 4.500 H Neutrophils % Segmented Neutrophils % (Manual) 65 Band Neutrophils % (Manual) 13 H Lymphocytes % Lymphocytes % (Manual) 13 L Monocytes % Monocytes % (Manual) 2 Eosinophils % Eosinophils % (Manual) 3 Basophils % Myelocytes % (Manual) 3 H Promyelocytes % (Manual) 1 H Nucleated Red Blood Cells % 0.0 Immature Granulocytes # 0.380 H Neutrophils # Neutrophils # (Manual) 5.5 Band Neutrophils # 1.0 H Lymphocytes (Manual) 1.0 Lymphocytes # Monocytes # Monocytes # (Manual) 0.1 L Eosinophils # Basophils # Myelocytes # 0.2 H Promyelocytes # 0.0 Nucleated Red Blood Cells # Platelet Estimate NORMAL Polychromasia 3+ Anisocytosis 3+ Macrocytosis 3+ Sodium Level 150 H Potassium Level 3.5 Chloride Level 118 H Carbon Dioxide Level 25 Anion Gap 7 Blood Urea Nitrogen 72 H Creatinine 0.72 Est Glomerular Filtrat Rate mL/min Glucose Level 142 Calcium Level 8.9 Home Meds Reported Medications Zinc Sulfate* (Zinc Sulfate*) 220 Mg Tablet, 220 MG GTB DAILY, TAB STOP DATE 06/06/19 05/17/19 Vit C-Ascorbate Ca-Ascorb Sod (Vitamin C) 500 Mg/15 Ml Liquid, 500 MG GTB BID, ML STOP DATE 08/05/19 05/17/19 Balsam [place] Oil (Venelex Ointment) 60 Gm Oint..gm., 1 APPLIC TOP DAILY, #1 TUB APPLY TORIGHT BUTTOCK DTPI TOPICALLY. FOR 14 DAYS,STOP DATE 05/18/19 05/17/19 Budesonide* (Pulmicort*) 1 Mg/2 Ml Ampul.neb, 0.5 ML INHALATION BID, #60 AMP 05/17/19 Amino Acids/Protein Hydrolys (PRO-STAT LIQUID) 30 Ml Liquid.pkt, 30 ML GTB BID 05/17/19 Chlorhexidine Gluconate (Peridex) 473 Ml Mouthwash, 15 ML MM BID, BOTTLE 05/17/19 [Nephro-Antonio] No Conflict Check, 0.8 MG GTB DAILY 05/17/19 Metoprolol Tartrate* (Lopressor*) 50 Mg Tab, 50 MG GTB BID, #60 TAB HOLD FOR SBP<110 OR HR<60 05/17/19 Levalbuterol* (Xopenex*) 0.31 Mg/3 Ml Nebu, 0.31 MG INHALATION Q8, EA 05/17/19 Levalbuterol Hcl* (Xopenex*) 1.25 Mg/3 Ml Vial.neb, 1.25 MG INHALATION QID for WHEEZING AND SOB, EA OR NEEDED 05/17/19 Epoetin Amor (Epogen) 10,000 Units/Ml Soln, 4000 UNITS SC Q WED, VIAL 05/17/19 [Ipratropium Brom.] No Conflict Check, 0.5 ML QID IPRATROPIUM BROMIDE SOLUTION 0.02% 0.5ML VIA VENT. 05/17/19 Lactobacillus Acidophilus (Acidophilus) 1 Each Tablet, 1 EACH GTB DAILY, TAB FOR 14 DAYS, STOP DATE 05/27/19 05/17/19 Docusate Sodium* (Colace*) 100 Mg Capsule, 100 MG GTB DAILY, #30 CAP 05/17/19 Digoxin* (Digitek*) 125 Mcg Tablet, 0.125 MG GTB DAILY PRN for HOLD IF HR<60, TAB 05/17/19 Arginine/Ascorbate Sod/Antonio AC (Arginaid Powder) 1 Each Powd.pack, 1 EACH GTB BID STOP DATE 07/06/19 05/17/19 Apixaban* (Eliquis*) 5 Mg Tablet, 5 MG GTB BID, TAB 05/17/19 Acetaminophen* (Acetaminophen* Susp) 160 Mg/5 Ml Oral.susp, 20 ML GTB DAILY PRN for PAIN MANAGEMENT, ML 05/17/19 Acetaminophen* (Acetaminophen* Susp) 160 Mg/5 Ml Oral.susp, 20 ML GTB Q4H PRN for PAIN, ML AND TEMP>100.5 05/17/19 Discontinued Reported Medications Levalbuterol Hcl* (Xopenex*) 1.25 Mg/0.5 Ml Vial.neb, 1.25 MG INHALATION Q6H for WHEEZING AND SOB, EA 03/17/19 Levalbuterol Hcl* (Levalbuterol Hcl*) 1.25 Mg/0.5 Ml Vial.neb, 1.25 MG INHALATION Q3H, VIAL 03/17/19 Ascorbic Acid (Vitamin C) 500 Mg Tab, 500 MG GTB DAILY, TAB 03/17/19 Cran/Vitc/Mannose/Inulin/Brom (Uti-Stat Liquid) 3,875 Mg/30 Ml Liquid, 30 ML GTB BID 03/17/19 Acetaminophen* (Acetaminophen*) 500 MG Extra Strength Tablet, 1000 MG PO Q4H PRN for NEEDED, TAB UNTIL 04/16/19 03/17/19 Acetaminophen* (Tylenol*) 325 Mg Tablet, 650 MG GTB BID PRN for PAIN MGT, TAB 03/17/19 Acetaminophen* (Tylenol*) 325 Mg Tablet, 650 MG GTB Q4H PRN for MILD PAIN LEVEL 1-3, TAB AND FEVER 101F, END DATE 04/16/19 03/17/19 Acetaminophen* (Tylenol*) 325 Mg Tablet, 650 MG GTB NEEDED PRN for TRACH TUBE CHANGE, TAB 03/17/19 Epoetin Amor (Procrit) 4,000 Unit/1 Ml Vial, 4000 UNIT IJ Q WED, VIAL 03/17/19 Amino Acids/Protein Hydrolys (PRO-STAT LIQUID) 30 Ml Liquid.pkt, 30 ML GTB DAILY 03/17/19 Multivitamins* (Theragran*) 1 Tab Tab, 1 TAB GTB DAILY, TAB 03/17/19 Magnesium Hydroxide* (Milk Of Magnesia*) 400 Mg/5 Ml Oral.susp, 30 ML GTB NEEDED, ML END DATE 04/16/19 03/17/19 Metoprolol Tartrate* (Lopressor*) 25 Mg Tab, 25 MG GTB BID, #60 TAB HOLD IF SBP<110 OR HR<60 03/17/19 Levetiracetam* (Levetiracetam*) 500 Mg/5 Ml Solution, 2.5 ML PO Q12H, ML 03/17/19 Mineral Oil* (Fleet* Mineral Oil Enema) Unknown Strength Oil, 1 APPLIC PA NEEDED PRN for CONSTIPATION, ENEMA 03/17/19 Bisacodyl (Dulcolax) 10 Mg Supp.rect, 10 MG RC NEEDED, SUPP.RECT UNTIL 04/16/19 03/17/19 Digoxin* (Digox*) 125 Mcg Tablet, 0.125 MG GTB DAILY PRN for HOLD IF HR<60, TAB 03/17/19 Docusate Sodium* (Colace*) 100 Mg Capsule, 100 MG GTB DAILY, #30 CAP 03/17/19 Chlorhexidine Gluconate (Peridex) 473 Ml Mouthwash, 15 ML MM Q12H, BOTTLE 03/17/19 Medications Current Medications Miscellaneous Information (Pending [facility] Order For Wound Care) This patient marks... PRN PRN XX WOUND CARE; Start 05/18/19 at 01:00 Apixaban (Eliquis) 5 mg BID GTB Last administered on 05/18/19at 09:30; Admin Dose 5 MG; Start 05/18/19 at 09:00 Chlorhexidine Gluconate (Peridex) 15 ml BID MM Last administered on 05/18/19 09:29; Admin Dose 15 ML; Start 05/18/19 at 09:00 Metoprolol Tartrate (Lopressor) 50 mg BID GTB Last administered on 05/18/19 09:30; Admin Dose 50 MG; Start 05/18/19 at 09:00 Zinc Sulfate (Zinc Sulfate) 220 mg DAILY GTB Last administered on 05/18/19 09:29; Admin Dose 220 MG; Start 05/18/19 at 09:00 Lactobacillus Acidophilus (Florajen3 Capsule) 1 each DAILY GTB Last administered on 05/18/19 09:29; Admin Dose 1 EACH; Start 05/18/19 at 09:00 Epoetin Amor-epbx (Retacrit (Esrd)) 10,000 unit We@1700 SC ; Start 05/21/19 at 1 7:00 Budesonide (Pulmicort (Neb)) 1 mg BID RESP THERAPY INH ; Start 05/18/19 at 09:00 Meropenem/Sodium Chloride 50 ml @ 100 mls/hr Q12H IVPB Last administered on 05/18/19 06:06; Admin Dose 100 MLS/HR; Start 05/18/19 at 06:00 Dextrose 1,000 ml @ 60 mls/hr [id number] IV Last administered on 05/18/19 02:30; Admin Dose 60 MLS/HR; Start 05/18/19 at 01:30 Levalbuterol (Xopenex Hfa) 2 puff Q6H RESP THERAPY INH Last administered on 05/18/19 08:00; Admin Dose 2 PUFF; Start 05/18/19 at 02:00 Digoxin (Digoxin) 0.125 mg DAILY GTB Last administered on 05/18/19 09:30; Admin Dose 0.125 MG; Start 05/18/19 at 09:00 Ascorbic Acid (Vitamin C) 500 mg BID GTB Last administered on 05/18/19 09:29; Admin Dose 500 MG; Start 05/18/19 at 09:00 Acetaminophen (Tylenol Liquid) 650 mg Q4H PRN GTB MILD PAIN(1-3)OR ELEVATED TEMP; Start 05/18/19 at 05:00 Assessment/Plan Hospital Course (Demo Recall) 1.PVC-improved on BB EF 65% by echo 10/29. neg trop x 3 - no new sustained episodes now. 2.H/o Bradycardia-to 50's, now a. fib/ afl at 80s - con't to follow. 3.HTN- better now, con't to adjust rx 4.REsp failure-chronic s/p trach - pulmary tetam follows 5.SVT-short run. Again recurrent short run at approx 150-160 ? PAFL/AT 03/31. 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
--- NOTE | 2019-05-18 12:37 | CONS ---
DATE OF ADMISSION: 05/17/2019 DATE OF CONSULTATION: 05/18/2019 REASON FOR CONSULTATION: Ventilator management. Thank you, Dr. Phillips, for this consultation. HISTORY OF PRESENT ILLNESS: This is a 73-year-old, vent-dependent respiratory failure. The patient transferred from snf facility yesterday for evaluation of fever and tachycardia. The pat ient is nonverbal and unable to give further history. On admission, found to have atrial fibrillatio n with rapid ventricular rate. PAST MEDICAL HISTORY: Includes CVA, encephalopathy, pulmonary fibrosis, essential hypertension, vent -dependent respiratory failure. MEDICATIONS: Per chart. ALLERGIES: Apparently none. SOCIAL HISTORY: She is a nonsmoker, no alcohol, no history of drug use. FAMILY HISTORY: Noncontributory. SYSTEMS REVIEW: A 12-point review of systems unable to perform. PHYSICAL EXAMINATION: GENERAL: Elderly-appearing lady, appears comfortable at rest, no acute distress. VITAL SIGNS: Currently afebrile, pulse is 86, blood pressure 144/66, O2 saturation 96%, FIO2 35%. NECK: Trach site clean and intact. CARDIAC: S1, S2, no added sounds or murmurs. CHEST: Diminished air entry bilaterally. ABDOMEN: Soft, nontender. No guarding or rebound. EXTREMITIES: No cyanosis, clubbing, edema. NEUROLOGIC: Unable to assess. LABORATORY DATA: White count 8.4, hemoglobin 7.3, platelets of 327. BUN 72, creatinine 0.72. INR 1 .17. DIAGNOSTIC DATA: Chest x-ray shows bilateral infiltrates, right greater than left, small bilateral p leural effusions. IMPRESSION: 1. Possible healthcare-associated pneumonia. 2. Vent dependent respiratory failure. 3. Atrial fibrillation with rapid ventricular rate. 4. Chronic encephalopathy. 5. Incomplete data. PLAN: 1. Continue antibiotics. 2. IV fluids. 3. Rate control. 4. Check procalcitonin. 5. Continue anticoagulation with Eliquis. 6. DVT and GI prophylaxis. Dictated By: ERUM ALCOCER MD SV/MONROE Conf#: [id number] DID#: [id number] CC: JAYLEN PHILLIPS MD;*EndCC*
--- NOTE | 2019-05-18 13:40 | CONS ---
Assessment/Plan Assessment/Plan Hospital Course (Demo Recall) ID NOTE CURRENT ABX: DAY #2 = VANCO IV + MERREM 05/18/1919 05/18/19618 24H INTERVAL SUMMARY * Chronic encephalopathy -- admit with SIRS Tmax 99.3 + tachycardia HR 127 due ti UTI and HCAP * Today no fevers, VSS, NAD, looks comfortable * PT known to Dr. Melendez's ID service from prior admission where she was treated for LLL MUCOUS PLUGGING PNA which resolved -- also treatted conservatively with lengthy course of Vanco IV + Zosyn for Diverticular abscess that was to small for drainage by IR. Family did not want any surgical intervention. PER GI notes: Severe diverticulosis with spasm per colonoscopy. Microbiology * 05/17/19 URINE CX: URINE CULTURE Preliminary Culture too young to evaluate * PER REVIEW PRIOR ADMISSION: * Hx of (+)VRE Stool Colonization * Hx of GNR Trach pathogen colonization RADIOLOGY IMAGING REPORTS * 05/17/19 CXR: 1. Bilateral, right greater than left opacities diffusely involving the right lung and left perihilar regions reflect a pulmonary edema and/or pneumonia. there is left retrocardiac airspace disease or atelectasis. 2. Small bilateral pleural effusions. * 04/03/19 CT ABD-PEL: No significant interval change in size of the air and fluid collection adjacent to the sigmoid colon and left iliopsoas muscle, likely representing diverticular abscess. -> Noted resolution of prior LLL PNA * 03/21/19 CT ABD-PEL: * 1. Sigmoid diverticulosis with a focal area of abnormal wall thickening of the proximal sigmoid colon with an adjacent gas containing fluid collection measuring 3.1 x 3.2 x 8.5 cm extending along the left iliopsoas/iliacus muscles. This could represent peridiverticular abscess/contained perforation. No additional fluid collection is identified in the remainder of the abdomen. * 2. Complete atelectasis of the left lower lobe. Query mucus plugging. Consider bronchoscopy for further evaluation. * 3. Unchanged left adrenal nodule. * 4. Cholelithiasis. * 5. Splenomegaly. * 6. Peg tube is in satisfactory position. * 7. Multiple bilateral renal cysts. * 8. Aortoiliac vascular calcifications with no aneurysmal dilatation. * 03/17/[address] * 1. No intracranial hemorrhage, mass effect or midline shift. * 2. Moderate generalized atrophy. Severe chronic microangiopathic ischemic change. * 3. Multiple areas of chronic infarcts in the right parietal, occipital and temporal lobes. * 4. Intracranial atherosclerosis. * 5. Unchanged left parietal convexity parafalcine presumed meningiomas. PHYSICAL EXAMINATION: GENERAL: Afebrile, VSS, opens eyes, nonverbal, chronically ill-appearing HEENT: AT, NC, anicteric NECK: Supple,(+)TRACH secure CHEST: Equal chest rise bilaterally, without dyspnea on observation HEART: Pulse RRR ABDOMEN: Soft EXTREMITIES: Warm, dry, Bilateral lower extremities edema SKIN: no diaphoresis ID ASSESSMENT 73 yo MORBID OBESE F admit with 1. SIRS w/ low grade temps, leukocytosis, 2. UTI per UA 3. Recurrent HCAP = VAP * 05/17/19 CXR: 1. Bilateral, right greater than left opacities diffusely involving the right lung and left perihilar regions reflect a pulmonary edema and/or pneumonia. there is left retrocardiac airspace disease or atelectasis. 2. Small bilateral pleural effusions. 4. 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 Dysphagia -> Peg 6. Encephalopathy chronic w/hx of CVA 7. Seizure disorder/w/hx of prior status epilepticus 8. Atrial fibrillation. 9. Hx of CHF w/pulmonary edema and BLEXT edema 10. Severe diverticulosis with spasm per colonoscopy. 11. Hx of Diverticulitis w/small abscess on CT - too small for IR drainage, family opted for conservative Tx per DC last 04/10/19 12. Hx of PRIOR Bilateral superficial venous thrombus within the cephalic veins. 13. Hx of Bilateral lower extremity cellulitis, likely acute on chronic 14. Hx of Breast folds = moisture yeast dermatitis 15. Anemia. ABX ALLERGIES: KNDA CURRENT ABX: DAY #2 = VANCO IV + MERREM ID RECOMMENDATIONS Change MERREM TO CEFEPIME * hx of SEIZURE disorder - s/p hx of status epilepticus possible related to prior MERREM . Consultation Date/Type/Reason Admit Date/Time May 17, 2019 at 10:35 Initial Consult Date Date/Time of Note DATE: 05/18/19 TIME: 13:19 Exam/Review of Systems Exam Vitals Vital Signs Date Temp Pulse Resp B/P (MAP) Pulse Ox O2 O2 Flow FiO2 Time Delivery Rate 05/18/19 99.0 86 18 144/66 100 Trach 11:25 (92) Collar 05/18/19 35 09:39 Intake and Output 05/17/19 05/17/19 05/18/19 1515:00 23:00 07:00 IntakeIntake Total 550 ml OutputOutput Total 1750 ml BalanceBalance -1200 ml Results Result Diagram: 05/18/1919 05/18/19618 Results 24hrs Laboratory Tests Test 05/18/19 06:19 White Blood Count 8.4 Red Blood Count 2.35 L Hemoglobin 7.3 L Hematocrit 24.5 L Mean Corpuscular Volume 104.3 H Mean Corpuscular Hemoglobin 31.1 Mean Corpuscular Hemoglobin Concent 29.8 L Red Cell Distribution Width 17.8 H Platelet Count 327 Mean Platelet Volume 10.1 Immature Granulocytes % 4.500 H Neutrophils % Segmented Neutrophils % (Manual) 65 Band Neutrophils % (Manual) 13 H Lymphocytes % Lymphocytes % (Manual) 13 L Monocytes % Monocytes % (Manual) 2 Eosinophils % Eosinophils % (Manual) 3 Basophils % Myelocytes % (Manual) 3 H Promyelocytes % (Manual) 1 H Nucleated Red Blood Cells % 0.0 Immature Granulocytes # 0.380 H Neutrophils # Neutrophils # (Manual) 5.5 Band Neutrophils # 1.0 H Lymphocytes (Manual) 1.0 Lymphocytes # Monocytes # Monocytes # (Manual) 0.1 L Eosinophils # Basophils # Myelocytes # 0.2 H Promyelocytes # 0.0 Nucleated Red Blood Cells # Platelet Estimate NORMAL Polychromasia 3+ Anisocytosis 3+ Macrocytosis 3+ Sodium Level 150 H Potassium Level 3.5 Chloride Level 118 H Carbon Dioxide Level 25 Anion Gap 7 Blood Urea Nitrogen 72 H Creatinine 0.72 Est Glomerular Filtrat Rate mL/min Glucose Level 142 Lactic Acid Level 2.2 *H Calcium Level 8.9 Medications Medication Current Medications Miscellaneous Information (Pending Santyl Order For Wound Care) This patient marks... PRN PRN XX WOUND CARE; Start 05/18/19 at 01:00 Apixaban (Eliquis) 5 mg BID GTB Last administered on 05/18/19at 09:30; Admin Dose 5 MG; Start 05/18/19 at 09:00 Chlorhexidine Gluconate (Peridex) 15 ml BID MM Last administered on 05/18/19 09:29; Admin Dose 15 ML; Start 05/18/19 at 09:00 Metoprolol Tartrate (Lopressor) 50 mg BID GTB Last administered on 05/18/19 09:30; Admin Dose 50 MG; Start 05/18/19 at 09:00 Zinc Sulfate (Zinc Sulfate) 220 mg DAILY GTB Last administered on 05/18/19 09:29; Admin Dose 220 MG; Start 05/18/19 at 09:00 Lactobacillus Acidophilus (Florajen3 Capsule) 1 each DAILY GTB Last administered on 05/18/19 09:29; Admin Dose 1 EACH; Start 05/18/19 at 09:00 Epoetin Amor-epbx (Retacrit (Esrd)) 10,000 unit We@1700 SC ; Start 05/21/19 at 17:00 Budesonide (Pulmicort (Neb)) 1 mg BID RESP THERAPY INH ; Start 05/18/19 at 09:00 Meropenem/Sodium Chloride 50 ml @ 100 mls/hr Q12H IVPB Last administered on 05/18/19 06:06; Admin Dose 100 MLS/HR; Start 05/18/19 at 06:00 Dextrose 1,000 ml @ 60 mls/hr [id number] IV Last administered on 05/18/19 02:30; Admin Dose 60 MLS/HR; Start 05/18/19 at 01:30 Levalbuterol (Xopenex Hfa) 2 puff Q6H RESP THERAPY INH Last administered on 05/18/19 08:00; Admin Dose 2 PUFF; Start 05/18/19 at 02:00 Digoxin (Digoxin) 0.125 mg DAILY GTB Last administered on 05/18/19 09:30; Admin Dose 0.125 MG; Start 05/18/19 at 09:00 Ascorbic Acid (Vitamin C) 500 mg BID GTB Last administered on 05/18/19 09:29; Admin Dose 500 MG; Start 05/18/19 at 09:00 Acetaminophen (Tylenol Liquid) 650 mg Q4H PRN GTB MILD PAIN(1-3)OR ELEVATED TEMP; Start 05/18/19 at 05:00 ELIAS CORONEL NP May 18, 2019 13:30
[2019-05-18] MEDS: CEFEPIME 1GM/50 ML (PMX) 50 ML IVPB SCH ×2 (16:07→20:19)
[2019-05-19] VITALS (17 sets, daily range): BP systolic 111–144; BP diastolic 50–70; PULSE 84–100; RESP 16–24
[2019-05-19] MEDS: LEVALBUTEROL (HFA) 15 GM INHALER INH SCH ×4 (01:13→20:08)
--- NOTE | 2019-05-19 06:15 | CONS ---
DATE OF ADMISSION: 05/17/2019 DATE OF CONSULTATION: 05/17/2019 TYPE OF CONSULTATION: Cardiology. REFERRING PHYSICIAN: Jaylen Phillips MD REASON FOR EVALUATION: Atrial fibrillation, shortness of breath. HISTORY OF PRESENT ILLNESS: Ms. Dowd is a 73-year-old woman known from multiple prior admissi ons and evaluations with history of hypertension, dyslipidemia, history of CVAs in the past, history of ventilator dependent respiratory failure in the past, who comes to the hospital now for shortness of breath. The patient is in Emergency. The patient is in atrial fibrillation as well, and I am her e to see her in consultation. The patient has long history of is benign Eliquis before. She is being treated for pneumonia now. She appears to be hemodynamically stable at this particular point. As such, conservative therapy would be expected given her overall chronic illness. We are g oing to optimize her fluid status. I think it would be somewhat reasonable to hydrate the patient fo r atrial fibrillation, somewhat tachycardic, we are going to resume her home medications as needed, a dditional agents as tolerated. PAST MEDICAL HISTORY: 1. Hypertension. 2. Dyslipidemia. 3. History of cerebrovascular accident. 4. History of respiratory failure, chronic on ventilator. 5. History of malnutrition. 6. History of coronary artery disease, chronic atrial fibrillation. ALLERGIES: No known drug allergies. SOCIAL HISTORY: The patient does not smoke, does not drink, does not use drugs. FAMILY HISTORY: Negative for sudden cardiac or premature coronary artery disease. MEDICATIONS: See chart. REVIEW OF SYSTEMS: The patient is not able to provide at this particular point. CURRENT MEDICATION LIST: 1. on discharge. 2. Vancomycin. 3. Cefepime. The patient is not able to describe but she appears to be in atrial fibrillation. She had some short ness of breath as well as pneumonia. There has been no recent fevers, and there has been no recent w eight changes. PHYSICAL EXAMINATION: VITAL SIGNS: Temperature is . Heart rate 106, in atrial fibrillation . GENERAL: She is thin woman with . HEART: Irregularly irregular. Soft systolic murmur. PMI is nondisplaced. LUNGS: Coarse with wheezing. ABDOMEN: Distended, bowel sounds present. . edema. She has some chronic skin changes. LABORATORY DATA: White blood cell count 8.9, hemoglobin 7.9, platelets 332. Her INR is 1.7, sodium 137, 4.0, BUN is 19, creatinine 0.8. Lactic acid is elevated to 2.1. Troponin 0.158. ASSESSMENT AND PLAN: 1. Ventricular pacemaker appears to be atrial fibrillation with rapid ventricular response. She is somewhat anemic and blood pressure is borderline. We will allow for now. 2. The patient is being hydrated and treated with antibiotics. 3. Elevated troponin. Patient is minimally troponin, probably demand type 2 ischemia. There is no intervention planned at this moment. Will monitor clinically. 4. the patient is on Eliquis at home. Her hemoglobin is somewhat down. I think we will hold off on Eliquis now while tracking her hemoglobin which is at 7.9. 5. Pneumonia. The patient is on antibiotics. Continue respiratory care per primary team. 6. History of cerebrovascular accident. Skin care advised. I would like to thank Dr. Phillips for referring this patient for my evaluation. Dictated By: KINGSTON HEARD MD ML/NTS Conf#: [id number] DID#: [id number] CC: JAYLEN PHILLIPS MD;*EndCC*
[2019-05-19] MEDS: BUDESONIDE (NEB) 0.5MG/2ML AMP INH SCH ×2 (09:00→19:56)
[2019-05-19] MEDS: L ACIDOPHIL/B LACTIS/B LONGUM CAPSULE GTB SCH (10:22)
[2019-05-19] MEDS: ASCORBIC ACID 500 MG TAB GTB SCH ×2 (10:22→20:16)
[2019-05-19] MEDS: CEFEPIME 1GM/50 ML (PMX) 50 ML IVPB SCH ×2 (10:22→20:17)
[2019-05-19] MEDS: CHLORHEXIDINE GLUCONATE 15 ML UD CUP MM SCH ×2 (10:23→20:17)
[2019-05-19] MEDS: APIXABAN 5 MG TABLET GTB SCH ×2 (10:23→20:17)
[2019-05-19] MEDS: DIGOXIN 0.125 MG TAB GTB SCH (10:23)
[2019-05-19] MEDS: ZINC SULFATE 220 MG CAP GTB SCH (10:26)
[2019-05-19] MEDS: METOPROLOL 50 MG TAB GTB SCH ×2 (10:27→20:17)
[2019-05-19] MEDS: BALSAM PERU/CASTOR OIL 60 GM TUBE TOP SCH (10:30)
[2019-05-19] MEDS: DEXTROSE 5% 1,000 ML IV SCH (10:35)
--- NOTE | 2019-05-19 13:38 | PN ---
DATE: 05/19/2019 SUBJECTIVE: The patient was seen earlier by Dr. Fernandes, yesterday in pulmonary consultation. Today , the patient's general condition remains the same. She is unresponsive with no eye opening seen. S he is on ventilator support through tracheostomy. PHYSICAL EXAMINATION: VITAL SIGNS: Show temperature 98.3, blood pressure 111/68, pulse rate 84, respirations 18, pulse oxi metry 100% saturation. NECK: Tracheal secretions are clear. No bleeding seen. HEART: Regular rhythm with sinus tachycardia intermittently. CHEST: Breath sounds are heard bilaterally, diminished in both the lower lung corona with a few inte rmittent rales and rhonchi. ABDOMEN: Soft, no distention seen, tolerating G-tube feedings. Bowel sounds are present. EXTREMITIES: Show no edema. NEUROLOGIC: Spasticity seen in all the extremities. IMAGING: The chest x-ray taken initially on 05/17/2019 is reported to show bilateral infiltrates, mo re on the right side than on the left, small bilateral pleural effusions also seen. Follow up chest x-ray done today is reported to show increased left basilar atelectasis and otherwise no significant interval change seen. LABORATORY DATA: WBC count 8300, hemoglobin 6.5, hematocrit 21.7, platelets within normal limits. T he chemistry panel shows sodium 145, potassium 3.2, bicarbonate 25, BUN 59, creatinine 0.71. BUN has improved from 72 to 59. Lactic acid level was slightly high at 2.2. The procalcitonin level is als o high at 0.45. The sputum culture is reported to show gram-negative bacilli, identification and sensitivity are awai david. Urine culture shows Janine albicans. Blood culture shows no growth. Stools are positive for Clostridium difficile toxin. The patient is also being seen by infectious disease cost consultant. At present, her antibiotic therapy includes Maxipime. IMPRESSION: 1. Ventilator-associated healthcare-acquired pneumonia. 2. Chronic encephalopathy. 3. History of chronic obstructive pulmonary disease. 4. History of pulmonary fibrosis. 5. History of paroxysmal atrial fibrillation. 6. History of congestive heart failure. 7. Chronic anemia. 8. Acute kidney injury, probably secondary to dehydration. 9. History of seizure disorder. 10. History of cerebrovascular accident in the past. RECOMMENDATIONS: 1. Will continue ventilator support for long-term. The patient is not a candidate for weaning trial s. 2. Continue antibiotics as per infectious disease cost consultant's recommendations. 3. Continue bronchodilator inhalation therapy. 4. Continue steroid inhalation therapy. 5. Deep venous thrombosis prophylaxis. 6. Gastrointestinal prophylaxis. Dictated By: KORTNEY GAMEZ MD SR/NTS Conf#: [id number] DID#: [id number] CC: JAYLEN LUGO MD;*EndCC*
--- NOTE | 2019-05-19 14:52 | PN ---
Date/Time of Note Date/Time of Note DATE: 05/19/19 TIME: 14:44 Assessment/Plan VTE Prophylaxis Risk score (from Ns)>0 risk: 9 SCD applied (from [facility] [place]): Yes Pharmacological prophylaxis: apixaban Lines/Catheters IV C[facility]ter Type (from [facility]): PICC Line Central line still needed: Yes Urinary Cath still in place: Yes Reason Cath still needed: urinary retention Assessment/Plan Hospital Course Patient continues on vent, diarrhea last night 3 times , stool C. difficile came back positive, Vanco via G-tube. S/p transfusion of 2 units of packed red blood cells for hemoglobin of 6.5 today. Assessment/Plan -Sepsis secondary to HCAP, continue antibiotics per ID, follow-up on cultures. Dr. Melendez is following in infection disease consultation. -C. difficile colitis, continue Vanco via G-tube -Atrial fibrillation with rapid ventricular response. Continue Eliquis and metoprolol. Dr. Romero is following in cardiology consultation. -Anemia status post blood transfusion continue to monitor H&H. Continue Epogen and iron supplements. -Hypernatremia secondary to dehydration. -Ventilator dependent respiratory failure with tracheostomy. Dr. Davenport is following in pulmonology consultation. -Diastolic congestive heart failure. -Pulmonary fibrosis, continue Pulmicort. -Dysphagia with G-tube. -Chronic encephalopathy -COPD -History of CVA, continue aspirin. -Seizure disorder/status epilepticus. Continue Keppra and Ativan as needed. -MRSA nares colonization -Hx of Diverticular abscess which was too small for drainage by radiology and family declined any surgical intervention. -Hx of Severe diverticulosis with spasm per colonoscopy. Further recommendations based on clinical course. Plan of care discussed with Dr. Phillips. Result Diagram: 05/19/19 0658 05/19/19 0658 Results 24hrs Laboratory Tests Test 05/19/19 06:58 White Blood Count 8.3 Red Blood Count 2.08 L Hemoglobin 6.5 *L Hematocrit 21.7 L Mean Corpuscular Volume 104.3 H Mean Corpuscular Hemoglobin 31.3 Mean Corpuscular Hemoglobin Concent 30.0 L Red Cell Distribution Width 17.5 H Platelet Count 330 Mean Platelet Volume 10.3 Immature Granulocytes % 6.600 H Neutrophils % 64.3 Segmented Neutrophils % (Manual) 64 Band Neutrophils % (Manual) 15 H Lymphocytes % 17.9 Lymphocytes % (Manual) 7 L Monocytes % 4.8 Monocytes % (Manual) 1 Eosinophils % 6.0 Eosinophils % (Manual) 8 H Basophils % 0.4 Basophils % (Manual) 3 H Myelocytes % (Manual) 1 H Promyelocytes % (Manual) 1 H Nucleated Red Blood Cells % 0.4 H Immature Granulocytes # 0.550 H Neutrophils # 5.3 Neutrophils # (Manual) 5.4 Band Neutrophils # 1.2 H Lymphocytes (Manual) 0.5 L Lymphocytes # 1.5 Monocytes # 0.4 Monocytes # (Manual) 0.0 L Eosinophils # 0.5 Basophils # 0.0 Basophils # (Manual) 0.2 H Myelocytes # 0.0 Promyelocytes # 0.0 Nucleated Red Blood Cells # 0.0 Pathologist Review (Hematology) YES Platelet Estimate NORMAL Polychromasia 3+ Poikilocytosis 1+ Anisocytosis 2+ Microcytosis 1+ Macrocytosis 1+ Sodium Level 145 H Potassium Level 3.2 L Chloride Level 113 H Carbon Dioxide Level 25 Anion Gap 7 Blood Urea Nitrogen 59 H Creatinine 0.71 Est Glomerular Filtrat Rate mL/min Glucose Level 132 Calcium Level 8.7 Phosphorus Level 2.3 L Magnesium Level 2.3 Exam/Review of Systems Exam Vitals Vital Signs Date Temp Pulse Resp B/P (MAP) Pulse Ox O2 O2 Flow FiO2 Time Delivery Rate 05/19/19 98.3 84 18 111/68 100 Mechanical 11:36 (82) Ventilator 05/19/19 35 08:36 Intake and Output 05/18/19 05/18/19 05/19/19 1515:00 23:00 07:00 IntakeIntake Total 350 ml 1810 ml 1700 ml OutputOutput Total 900 ml 750 ml BalanceBalance 350 ml 910 ml 950 ml Constitutional: non-verbal Head: normocephalic Neck: supple, other (Tracheostomy) Respiratory: diminished breath sounds Cardiovascular: irregular rhythm Gastrointestinal: soft, non-tender, other (G-tube) Extremities: normal pulses Neurological: lethargic Results Results 24hrs Laboratory Tests Test 05/19/19 06:58 White Blood Count 8.3 Red Blood Count 2.08 L Hemoglobin 6.5 *L Hematocrit 21.7 L Mean Corpuscular Volume 104.3 H Mean Corpuscular Hemoglobin 31.3 Mean Corpuscular Hemoglobin Concent 30.0 L Red Cell Distribution Width 17.5 H Platelet Count 330 Mean Platelet Volume 10.3 Immature Granulocytes % 6.600 H Neutrophils % 64.3 Segmented Neutrophils % (Manual) 64 Band Neutrophils % (Manual) 15 H Lymphocytes % 17.9 Lymphocytes % (Manual) 7 L Monocytes % 4.8 Monocytes % (Manual) 1 Eosinophils % 6.0 Eosinophils % (Manual) 8 H Basophils % 0.4 Basophils % (Manual) 3 H Myelocytes % (Manual) 1 H Promyelocytes % (Manual) 1 H Nucleated Red Blood Cells % 0.4 H Immature Granulocytes # 0.550 H Neutrophils # 5.3 Neutrophils # (Manual) 5.4 Band Neutrophils # 1.2 H Lymphocytes (Manual) 0.5 L Lymphocytes # 1.5 Monocytes # 0.4 Monocytes # (Manual) 0.0 L Eosinophils # 0.5 Basophils # 0.0 Basophils # (Manual) 0.2 H Myelocytes # 0.0 Promyelocytes # 0.0 Nucleated Red Blood Cells # 0.0 Pathologist Review (Hematology) YES Platelet Estimate NORMAL Polychromasia 3+ Poikilocytosis 1+ Anisocytosis 2+ Microcytosis 1+ Macrocytosis 1+ Sodium Level 145 H Potassium Level 3.2 L Chloride Level 113 H Carbon Dioxide Level 25 Anion Gap 7 Blood Urea Nitrogen 59 H Creatinine 0.71 Est Glomerular Filtrat Rate mL/min Glucose Level 132 Calcium Level 8.7 Phosphorus Level 2.3 L Magnesium Level 2.3 Medications Medication Current Medications Miscellaneous Information (Pending Santyl Order For Wound Care) This patient marks... PRN PRN XX WOUND CARE; Start 05/18/19 at 01:00 Apixaban (Eliquis) 5 mg BID GTB Last administered on 05/19/19 10:23; Admin Dose 5 MG; Start 05/18/19 at 09:00 Chlorhexidine Gluconate (Peridex) 15 ml BID MM Last administered on 05/19/19 10:23; Admin Dose 15 ML; Start 05/18/19 at 09:00 Metoprolol Tartrate (Lopressor) 50 mg BID GTB Last administered on 05/19/19 10:27; Admin Dose 50 MG; Start 05/18/19 at 09:00 Zinc Sulfate (Zinc Sulfate) 220 mg DAILY GTB Last administered on 05/19/19 10:26; Admin Dose 220 MG; Start 05/18/19 at 09:00 Lactobacillus Acidophilus (Florajen3 Capsule) 1 each DAILY GTB Last administered on 05/19/19 10:22; Admin Dose 1 EACH; Start 05/18/19 at 09:00 Epoetin Amor-epbx (Retacrit (Esrd)) 10,000 unit We@1700 SC ; Start 05/21/19 at 17:00 Budesonide (Pulmicort (Neb)) 1 mg BID RESP THERAPY INH Last administered on 05/18/19 19:35; Admin Dose 1 MG; Start 05/18/19 at 09:00 Dextrose 1,000 ml @ 60 mls/hr [id number] IV Last administered on 05/19/19 10:35; Admin Dose 60 MLS/HR; Start 05/18/19 at 01:30 Levalbuterol (Xopenex Hfa) 2 puff Q6H RESP THERAPY INH Last administered on 05/19/19 08:36; Admin Dose 2 PUFF; Start 05/18/19 at 02:00 Digoxin (Digoxin) 0.125 mg DAILY GTB Last administered on 05/19/19 10:23; Admin Dose 0.125 MG; Start 05/18/19 at 09:00 Ascorbic Acid (Vitamin C) 500 mg BID GTB Last administered on 05/19/19 10:22; A dmin Dose 500 MG; Start 05/18/19 at 09:00 Acetaminophen (Tylenol Liquid) 650 mg Q4H PRN GTB MILD PAIN(1-3)OR ELEVATED TEMP; Start 05/18/19 at 05:00 Cefepime HCl 50 ml @ 100 mls/hr Q12 IVPB Last administered on 05/19/19 10:22; Admin Dose 100 MLS/HR; Start 05/18/19 at 14:00 IMER VARGAS May 19, 2019 14:52
[2019-05-19] MEDS ORDERED: POTASSIUM CHLORIDE 20 MEQ POWDER FOR ORAL SOLN GTB ONE (15:00)
--- NOTE | 2019-05-19 16:27 | CONS ---
Assessment/Plan Assessment/Plan Hospital Course (Demo Recall) ID NOTE CURRENT ABX: DAY #3 = VANCO IV + CEVFEPIME S/P MERREM 24H INTERVAL SUMMARY * Chronic encephalopathy -- admit with SIRS Tmax 99.3 + tachycardia HR 127 due ti UTI and HCAP * CLINICALLY STABLE -- Afebrile, VSS, NAD, * PT known to Dr. Melendez's ID service from prior admission where she was treated for LLL MUCOUS PLUGGING PNA which resolved -- also treated conservatively with lengthy course of Vanco IV + Zosyn for Diverticular abscess that was to small for drainage by IR. Family did not want any surgical intervention. PER GI notes: Severe diverticulosis with spasm per colonoscopy. Microbiology * 05/19/19 (+)C.DIFF TOXIN * 05/18/19 RESPIRATORY CULTURE Preliminary Organism 1 GRAM NEGATIVE ADALID QUANTITY 2+ Organism 2 GRAM NEGATIVE ADALID#2 QUANTITY 3+ * 05/17/19 URINE CX: URINE CULTURE Final Organism 1 JULIO ALBICANS COLONY COUNT >100,000 CFU/ml * PER REVIEW PRIOR ADMISSION: * Hx of (+)VRE Stool Colonization * Hx of GNR Trach pathogen colonization RADIOLOGY IMAGING REPORTS * 05/17/19 CXR: 1. Bilateral, right greater than left opacities diffusely involving the right lung and left perihilar regions reflect a pulmonary edema and/or pneumonia. there is left retrocardiac airspace disease or atelectasis. 2. Small bilateral pleural effusions. * 04/03/19 CT ABD-PEL: No significant interval change in size of the air and fluid collection adjacent to the sigmoid colon and left iliopsoas muscle, li ying representing diverticular abscess. -> Noted resolution of prior LLL PNA * 03/21/19 CT ABD-PEL: * 1. Sigmoid diverticulosis with a focal area of abnormal wall thickening of the proximal sigmoid colon with an adjacent gas containing fluid collection measuring 3.1 x 3.2 x 8.5 cm extending along the left iliopsoas/iliacus muscles. This could represent peridiverticular abscess/contained perforation. No additional fluid collection is identified in the remainder of the abdomen. * 2. Complete atelectasis of the left lower lobe. Query mucus plugging. Consider bronchoscopy for further evaluation. * 3. Unchanged left adrenal nodule. * 4. Cholelithiasis. * 5. Splenomegaly. * 6. Peg tube is in satisfactory position. * 7. Multiple bilateral renal cysts. * 8. Aortoiliac vascular calcifications with no aneurysmal dilatation. * 03/17/[address] * 1. No intracranial hemorrhage, mass effect or midline shift. * 2. Moderate generalized atrophy. Severe chronic microangiopathic ischemic change. * 3. Multiple areas of chronic infarcts in the right parietal, occipital and temporal lobes. * 4. Intracranial atherosclerosis. * 5. Unchanged left parietal convexity parafalcine presumed meningiomas. PHYSICAL EXAMINATION: GENERAL: Afebrile, VSS, opens eyes, nonverbal, chronically ill-appearing HEENT: AT, NC, anicteric NECK: Supple,(+)TRACH secure CHEST: Equal chest rise bilaterally, without dyspnea on observation HEART: Pulse RRR ABDOMEN: Soft EXTREMITIES: Warm, dry, Bilateral lower extremities edema SKIN: no diaphoresis ID ASSESSMENT 73 yo MORBID OBESE F admit with 1. SIRS w/ low grade temps, leukocytosis, 2. UTI per UA 3. Recurrent HCAP = VAP * 05/17/19 CXR: 1. Bilateral, right greater than left opacities diffusely involving the right lung and left perihilar regions reflect a pulmonary edema and/or pneumonia. there is left retrocardiac airspace disease or atelectasis. 2. Small bilateral pleural effusions. 4. 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 Dysphagia -> Peg 6. Encephalopathy chronic w/hx of CVA 7. Seizure disorder/w/hx of prior status epilepticus 8. Atrial fibrillation. 9. Hx of CHF w/pulmonary edema and BLEXT edema 10. Severe diverticulosis with spasm per colonoscopy. 11. Hx of Diverticulitis w/small abscess on CT - too small for IR drainage, family opted for conservative Tx per DC last 04/10/19 12. Hx of PRIOR Bilateral superficial venous thrombus within the cephalic veins. 13. Hx of Bilateral lower extremity cellulitis, likely acute on chronic 14. Hx of Breast folds = moisture yeast dermatitis 15. Anemia. ABX ALLERGIES: KNDA CURRENT ABX: DAY #2 = VANCO IV + MERREM ID RECOMMENDATIONS 1. DC VANCO iv 2. Continue CEFEPIME * hx of SEIZURE disorder - s/p hx of status epilepticus possible related to prior MERREM 3. Start CANCIDAS for C.Albicans UTI == (Diflucan interacts with DOAC) 4. Start Vanco LIQ 250mg Q6 H via peg for (+)C. Diff colitis Consultation Date/Type/Reason Admit Date/Time May 17, 2019 at 10:35 Initial Consult Date Date/Time of Note DATE: 05/19/19 TIME: 16:20 Exam/Review of Systems Exam Vitals Vital Signs Date Temp Pulse Resp B/P (MAP) Pulse Ox O2 O2 Flow FiO2 Time Delivery Rate 05/19/19 98.2 100 16 137/59 98 Mechanical 15:49 (85) Ventilator 05/19/19 35 15:00 Intake and Output 05/18/19 05/18/19 05/19/19 1515:00 23:00 07:00 IntakeIntake Total 350 ml 1810 ml 1700 ml OutputOutput Total 900 ml 750 ml BalanceBalance 350 ml 910 ml 950 ml Results Result Diagram: 05/19/19 0658 05/19/19 0658 Results 24hrs Laboratory Tests Test 05/19/19 06:58 White Blood Count 8.3 Red Blood Count 2.08 L Hemoglobin 6.5 *L Hematocrit 21.7 L Mean Corpuscular Volume 104.3 H Mean Corpuscular Hemoglobin 31.3 Mean Corpuscular Hemoglobin Concent 30.0 L Red Cell Distribution Width 17.5 H Platelet Count 330 Mean Platelet Volume 10.3 Immature Granulocytes % 6.600 H Neutrophils % 64.3 Segmented Neutrophils % (Manual) 64 Band Neutrophils % (Manual) 15 H Lymphocytes % 17.9 Lymphocytes % (Manual) 7 L Monocytes % 4.8 Monocytes % (Manual) 1 Eosinophils % 6.0 Eosinophils % (Manual) 8 H Basophils % 0.4 Basophils % (Manual) 3 H Myelocytes % (Manual) 1 H Promyelocytes % (Manual) 1 H Nucleated Red Blood Cells % 0.4 H Immature Granulocytes # 0.550 H Neutrophils # 5.3 Neutrophils # (Manual) 5.4 Band Neutrophils # 1.2 H Lymphocytes (Manual) 0.5 L Lymphocytes # 1.5 Monocytes # 0.4 Monocytes # (Manual) 0.0 L Eosinophils # 0.5 Basophils # 0.0 Basophils # (Manual) 0.2 H Myelocytes # 0.0 Promyelocytes # 0.0 Nucleated Red Blood Cells # 0.0 Pathologist Review (Hematology) YES Platelet Estimate NORMAL Polychromasia 3+ Poikilocytosis 1+ Anisocytosis 2+ Microcytosis 1+ Macrocytosis 1+ Sodium Level 145 H Potassium Level 3.2 L Chloride Level 113 H Carbon Dioxide Level 25 Anion Gap 7 Blood Urea Nitrogen 59 H Creatinine 0.71 Est Glomerular Filtrat Rate mL/min Glucose Level 132 Calcium Level 8.7 Phosphorus Level 2.3 L Magnesium Level 2.3 Medications Medication Current Medications Miscellaneous Information (Pending [facility] Order For Wound Care) This patient marks... PRN PRN XX WOUND CARE; Start 05/18/19 at 01:00 Apixaban (Eliquis) 5 mg BID GTB Last administered on 05/19/19 10:23; Admin Dose 5 MG; Start 05/18/19 at 09:00 Chlorhexidine Gluconate (Peridex) 15 ml BID MM Last administered on 05/19/19 10:23; Admin Dose 15 ML; Start 05/18/19 at 09:00 Metoprolol Tartrate (Lopressor) 50 mg BID GTB Last administered on 05/19/19 10:27; Admin Dose 50 MG; Start 05/18/19 at 09:00 Zinc Sulfate (Zinc Sulfate) 220 mg DAILY GTB Last administered on 05/19/19 10:26; Admin Dose 220 MG; Start 05/18/19 at 09:00 Lactobacillus Acidophilus (Florajen3 Capsule) 1 each DAILY GTB Last admi nistered on 05/19/19 10:22; Admin Dose 1 EACH; Start 05/18/19 at 09:00 Epoetin Amor-epbx (Retacrit (Esrd)) 10,000 unit We@1700 SC ; Start 05/21/19 at 17:00 Budesonide (Pulmicort (Neb)) 1 mg BID RESP THERAPY INH Last administered on 05/18/19 19:35; Admin Dose 1 MG; Start 05/18/19 at 09:00 Dextrose 1,000 ml @ 60 mls/hr [id number] IV Last administered on 05/19/19 10:35; Admin Dose 60 MLS/HR; Start 05/18/19 at 01:30 Levalbuterol (Xopenex Hfa) 2 puff Q6H RESP THERAPY INH Last administered on 05/19/19 15:05; Admin Dose 2 PUFF; Start 05/18/19 at 02:00 Digoxin (Digoxin) 0.125 mg DAILY GTB Last administered on 05/19/19 10:23; Admin Dose 0.125 MG; Start 05/18/19 at 09:00 Ascorbic Acid (Vitamin C) 500 mg BID GTB Last administered on 05/19/19 10:22; Admin Dose 500 MG; Start 05/18/19 at 09:00 Acetaminophen (Tylenol Liquid) 650 mg Q4H PRN GTB MILD PAIN(1-3)OR ELEVATED TEMP; Start 05/18/19 at 05:00 Cefepime HCl 50 ml @ 100 mls/hr Q12 IVPB Last administered on 05/19/19 10:22; Admin Dose 100 MLS/HR; Start 05/18/19 at 14:00 Vancomycin HCl (Vancomycin Oral Syringe) 250 mg Q6 PO ; Start 05/19/19 at 15:00 ELIAS CORONEL NP May 19, 2019 16:27
[2019-05-19] MEDS: VANCOMYCIN HCL 250 MG/5ML POSYG PO SCH ×2 (16:45→17:55)
--- NOTE | 2019-05-19 17:29 | CONS ---
Assessment/Plan Assessment/Plan Hospital Course (Demo Recall) 1.PVC-improved on BB EF 65% by echo 10/29. neg trop x 3 - no new sustained episodes now. 2.H/o Bradycardia-to 50's, now a. fib/ afl at 90-100s - con't to follow. 3.HTN- better now, con't to adjust rx 4.REsp failure-chronic s/p trach - pulmary team follows 5.SVT-PAF mainly rate controlled with some rvr to low 100's 6.Anemia - H/h stable now 7. Secondary hypercoag satte - on Eliquis now Recc: -Tele -Incresae BB -Continue digoxin and consider IVP dose -Continue eliquis -Continue abx's and antifungals -Follow volume status closely Consultation Date/Type/Reason Admit Date/Time May 17, 2019 at 10:35 Initial Consult Date 05/17/19 Type of Consult Cardiology Reason for Consultation AF Requesting Provider: JAYLEN LUGO MD Date/Time of Note DATE: 05/19/19 TIME: 17:21 Exam/Review of Systems Vital Signs Vitals Vital Signs Date Temp Pulse Resp B/P (MAP) Pulse Ox O2 O2 Flow FiO2 Time Delivery Rate 05/19/19 98.2 100 16 137/59 98 Mechanical 15:49 (85) Ventilator 05/19/19 35 15:00 Intake and Output 05/18/19 05/18/19 05/19/19 1515:00 23:00 07:00 IntakeIntake Total 350 ml 1810 ml 1700 ml OutputOutput Total 900 ml 750 ml BalanceBalance 350 ml 910 ml 950 ml Exam Exam Review of Systems: CONSTITUTIONAL: No fevers, chills. PULMONARY: No sob CARDIOVASCULAR: No chest pain/palpitations GASTROINTESTINAL: No nausea/vomiting. GENITOURINARY: No hematuria/dysuria. MUSCULOSKELETAL: No myagias/arthalgias. PSYCHIATRIC: The patient denies depression. NEUROLOGIC: lethargic Constitutional: other (lethargic) Psych: no complaints Head: normocephalic ENMT: mucosa pink and moist Neck: supple, jvd (9 cm water) Respiratory: diminished breath sounds Cardiovascular: irregular rhythm Gastrointestinal: soft, non-tender Musculoskeletal: muscle weakness (generalized) Extremities: pitting pedal edema (trace/B) Neurological: lethargic Labs Result Diagram: 05/19/19 0658 05/19/19 0658 Results 24hrs Laboratory Tests Test 05/19/19 06:58 White Blood Count 8.3 Red Blood Count 2.08 L Hemoglobin 6.5 *L Hematocrit 21.7 L Mean Corpuscular Volume 104.3 H Mean Corpuscular Hemoglobin 31.3 Mean Corpuscular Hemoglobin Concent 30.0 L Red Cell Distribution Width 17.5 H Platelet Count 330 Mean Platelet Volume 10.3 Immature Granulocytes % 6.600 H Neutrophils % 64.3 Segmented Neutrophils % (Manual) 64 Band Neutrophils % (Manual) 15 H Lymphocytes % 17.9 Lymphocytes % (Manual) 7 L Monocytes % 4.8 Monocytes % (Manual) 1 Eosinophils % 6.0 Eosinophils % (Manual) 8 H Basophils % 0.4 Basophils % (Manual) 3 H Myelocytes % (Manual) 1 H Promyelocytes % (Manual) 1 H Nucleated Red Blood Cells % 0.4 H Immature Granulocytes # 0.550 H Neutrophils # 5.3 Neutrophils # (Manual) 5.4 Band Neutrophils # 1.2 H Lymphocytes (Manual) 0.5 L Lymphocytes # 1.5 Monocytes # 0.4 Monocytes # (Manual) 0.0 L Eosinophils # 0.5 Basophils # 0.0 Basophils # (Manual) 0.2 H Myelocytes # 0.0 Promyelocytes # 0.0 Nucleated Red Blood Cells # 0.0 Pathologist Review (Hematology) YES Platelet Estimate NORMAL Polychromasia 3+ Poikilocytosis 1+ Anisocytosis 2+ Microcytosis 1+ Macrocytosis 1+ Sodium Level 145 H Potassium Level 3.2 L Chloride Level 113 H Carbon Dioxide Level 25 Anion Gap 7 Blood Urea Nitrogen 59 H Creatinine 0.71 Est Glomerular Filtrat Rate mL/min Glucose Level 132 Calcium Level 8.7 Phosphorus Level 2.3 L Magnesium Level 2.3 Medications Medications Current Medications [facility] This patient marks... PRN PRN XX WOUND CARE; Start 05/18/19 at 01:00 Apixaban (Eliquis) 5 mg BID GTB Last administered on 05/19/19at 10:23; Admin Dose 5 MG; Start 05/18/19 at 09:00 Chlorhexidine Gluconate (Peridex) 15 ml BID MM Last administered on 05/19/19 10:23; Admin Dose 15 ML; Start 05/18/19 at 09:00 Metoprolol Tartrate (Lopressor) 50 mg BID GTB Last administered on 05/19/19 10:27; Admin Dose 50 MG; Start 05/18/19 at 09:00 Zinc Sulfate (Zinc Sulfate) 220 mg DAILY GTB Last administered on 05/19/19 10:26; Admin Dose 220 MG; Start 05/18/19 at 09:00 Lactobacillus Acidophilus (Florajen3 Capsule) 1 each DAILY GTB Last administered on 05/19/19 10:22; Admin Dose 1 EACH; Start 05/18/19 at 09:00 Epoetin Amor-epbx (Retacrit (Esrd)) 10,000 unit We@1700 SC ; Start 05/21/19 at 17:00 Budesonide (Pulmicort (Neb)) 1 mg BID RESP THERAPY INH Last administered on 05/18/19 19:35; Admin Dose 1 MG; Start 05/18/19 at 09:00 Dextrose 1,000 ml @ 60 mls/hr [id number] IV Last administered on 05/19/19 10:35; Admin Dose 60 MLS/HR; Start 05/18/19 at 01:30 Levalbuterol (Xopenex Hfa) 2 puff Q6H RESP THERAPY INH Last administered on 05/19/19 15:05; Admin Dose 2 PUFF; Start 05/18/19 at 02:00 Digoxin (Digoxin) 0.125 mg DAILY GTB Last administered on 05/19/19 10:23; Admin Dose 0.125 MG; Start 05/18/19 at 09:00 Ascorbic Acid (Vitamin C) 500 mg BID GTB Last administered on 05/19/19 10:22; Admin Dose 500 MG; Start 05/18/19 at 09:00 Acetaminophen (Tylenol Liquid) 650 mg Q4H PRN GTB MILD PAIN(1-3)OR ELEVATED TEMP; Start 05/18/19 at 05:00 Cefepime HCl 50 ml @ 100 mls/hr Q12 IVPB Last administered on 05/19/19 10:22; Admin Dose 100 MLS/HR; Start 05/18/19 at 14:00 Vancomycin HCl (Vancomycin Oral Syringe) 250 mg Q6 PO Last administered on 05/19/19at 16:45; Admin Dose 250 MG; Start 05/19/19 at 15:00 Caspofungin 70 mg/ Sodium Chloride 250 ml @ 250 mls/hr ONCE ONCE IVPB ; Start 05/19/19 at 18:00; Stop 05/19/19 at 18:59 Caspofungin 50 mg/ Sodium Chloride 250 ml @ 250 mls/hr Q24H IVPB ; Start 05/20/19 at 18:00 LUIS FERGUSON May 19, 2019 17:29
[2019-05-19] MEDS ORDERED: DIGOXIN 500 MCG INJ IV ONE (17:30)
[2019-05-19] MEDS ORDERED: CASPOFUNGIN 70 MG in SOD CHLORIDE 0.9% 250 ML IVPB ONE (18:00)
[2019-05-20] VITALS (17 sets, daily range): BP systolic 121–143; BP diastolic 60–70; PULSE 76–91; RESP 16–23
[2019-05-20] MEDS: VANCOMYCIN HCL 250 MG/5ML POSYG PO SCH ×4 (00:17→18:28)
[2019-05-20] MEDS: LEVALBUTEROL (HFA) 15 GM INHALER INH SCH ×4 (01:53→19:30)
[2019-05-20] MEDS: DEXTROSE 5% 1,000 ML IV SCH ×3 (05:35→20:10)
[2019-05-20] MEDS: BUDESONIDE (NEB) 0.5MG/2ML AMP INH SCH ×2 (08:26→19:30)
[2019-05-20] MEDS: ASCORBIC ACID 500 MG TAB GTB SCH ×2 (09:24→20:40)
[2019-05-20] MEDS: CEFEPIME 1GM/50 ML (PMX) 50 ML IVPB SCH (09:24)
[2019-05-20] MEDS: L ACIDOPHIL/B LACTIS/B LONGUM CAPSULE GTB SCH (09:24)
[2019-05-20] MEDS: ZINC SULFATE 220 MG CAP GTB SCH (09:25)
[2019-05-20] MEDS: APIXABAN 5 MG TABLET GTB SCH ×2 (09:26→20:40)
[2019-05-20] MEDS: DIGOXIN 0.125 MG TAB GTB SCH (09:26)
[2019-05-20] MEDS: METOPROLOL 50 MG TAB GTB SCH ×2 (09:26→20:42)
[2019-05-20] MEDS: BALSAM PERU/CASTOR OIL 60 GM TUBE TOP SCH (09:27)
[2019-05-20] MEDS: CHLORHEXIDINE GLUCONATE 15 ML UD CUP MM SCH ×2 (09:27→20:41)
--- NOTE | 2019-05-20 11:32 | CONS ---
Consult Date/Type/Reason Admit Date/Time May 17, 2019 at 10:35 Initial Consult Date Requesting Provider: JAYLEN LUGO MD Date/Time of Note DATE: 05/20/19 TIME: 11:30 Subjective NO acute events - pt comfortable - no CP now - in good fluid status - con't resp Rx ROS: No fever, no chills, no nausea, no vomiting, no diarrhea/constipation - per nurse, chronic sOB - pt non-verbal Objective Vitals Vital Signs Date Temp Pulse Resp B/P (MAP) Pulse Ox O2 O2 Flow FiO2 Time Delivery Rate 05/20/19 98.0 22 134/66 99 Mechanical 08:38 (88) Ventilator Trach Collar 05/20/19 76 06:05 05/20/19 35 05:19 Intake and Output 05/19/19 05/19/19 05/20/19 1515:00 23:00 07:00 IntakeIntake Total 1200 ml 850 ml OutputOutput Total 700 ml 1450 ml BalanceBalance 500 ml -600 ml Exam General: WN/WD/NAD, AOx 0 HEENT: Unicetric/atraumatic/EOMI (does not follow commands) NECK: trach Lymph: no lymphadenopathy HEART: regular with no S3, II/ systolic murmur at apex, PMI L LUNGS: Coarse sounds ABD: soft, NT, ND, +BS - PEG : Intact Neuro: non focal SKIN: chronic changes EXT: trace edema Results/Medications Result Diagram: 05/20/19 0611 05/19/19 0658 Results 24 hrs Laboratory Tests Test 05/20/19 06:11 White Blood Count 12.3 #H Red Blood Count 3.07 #L Hemoglobin 9.5 #L Hematocrit 29.7 #L Mean Corpuscular Volume 96.7 Mean Corpuscular Hemoglobin 30.9 Mean Corpuscular Hemoglobin Concent 32.0 Red Cell Distribution Width 19.6 H Platelet Count 334 Mean Platelet Volume 9.9 Immature Granulocytes % 7.800 H Neutrophils % Segmented Neutrophils % (Manual) 60 Band Neutrophils % (Manual) 17 H Lymphocytes % Lymphocytes % (Manual) 11 L Monocytes % Monocytes % (Manual) 4 Eosinophils % Eosinophils % (Manual) 5 Basophils % Metamyelocytes % (manual) 1 H Myelocytes % (Manual) 2 H Nucleated Red Blood Cells % 0.3 H Immature Granulocytes # 0.960 H Neutrophils # Neutrophils # (Manual) 7.6 H Band Neutrophils # 2.0 H Lymphocytes (Manual) 1.3 Lymphocytes # Monocytes # Monocytes # (Manual) 0.4 Eosinophils # Basophils # Metamyelocytes # 0.1 H Myelocytes # 0.2 H Nucleated Red Blood Cells # Platelet Estimate NORMAL Giant Platelets 2 H Platelet Morphology Comment @See below Polychromasia 1+ Anisocytosis 1+ Home Meds Reported Medications Zinc Sulfate* (Zinc Sulfate*) 220 Mg Tablet, 220 MG GTB DAILY, TAB STOP DATE 06/06/19 05/17/19 Vit C-Ascorbate Ca-Ascorb Sod (Vitamin C) 500 Mg/15 Ml Liquid, 500 MG GTB BID, ML STOP DATE 08/05/19 05/17/19 Balsam Wily/[place] Oil (Venelex Ointment) 60 Gm Oint..gm., 1 APPLIC TOP DAILY, #1 TUB APPLY TORIGHT BUTTOCK DTPI TOPICALLY. FOR 14 DAYS,STOP DATE 05/18/19 05/17/19 Budesonide* (Pulmicort*) 1 Mg/2 Ml Ampul.neb, 0.5 ML INHALATION BID, #60 AMP 05/17/19 Amino Acids/Protein Hydrolys (PRO-STAT LIQUID) 30 Ml Liquid.pkt, 30 ML GTB BID 05/17/19 Chlorhexidine Gluconate (Peridex) 473 Ml Mouthwash, 15 ML MM BID, BOTTLE 05/17/19 [Nephro-Antonio] No Conflict Check, 0.8 MG GTB DAILY 05/17/19 Metoprolol Tartrate* (Lopressor*) 50 Mg Tab, 50 MG GTB BID, #60 TAB HOLD FOR SBP<110 OR HR<60 05/17/19 Levalbuterol* (Xopenex*) 0.31 Mg/3 Ml Nebu, 0.31 MG INHALATION Q8, EA 05/17/19 Levalbuterol Hcl* (Xopenex*) 1.25 Mg/3 Ml Vial.neb, 1.25 MG INHALATION QID for WHEEZING AND SOB, EA OR NEEDED 05/17/19 Epoetin Amor (Epogen) 10,000 Units/Ml Soln, 4000 UNITS SC Q WED, VIAL 05/17/19 [Ipratropium Brom.] No Conflict Check, 0.5 ML QID IPRATROPIUM BROMIDE SOLUTION 0.02% 0.5ML VIA VENT. 05/17/19 Lactobacillus Acidophilus (Acidophilus) 1 Each Tablet, 1 EACH GTB DAILY, TAB FOR 14 DAYS, STOP DATE 05/27/19 05/17/19 Docusate Sodium* (Colace*) 100 Mg Capsule, 100 MG GTB DAILY, #30 CAP 05/17/19 Digoxin* (Digitek*) 125 Mcg Tablet, 0.125 MG GTB DAILY PRN for HOLD IF HR<60, TAB 05/17/19 Arginine/Ascorbate Sod/Antonio AC (Arginaid Powder) 1 Each Powd.pack, 1 EACH GTB BID STOP DATE 07/06/19 05/17/19 Apixaban* (Eliquis*) 5 Mg Tablet, 5 MG GTB BID, TAB 05/17/19 Acetaminophen* (Acetaminophen* Susp) 160 Mg/5 Ml Oral.susp, 20 ML GTB DAILY PRN for PAIN MANAGEMENT, ML 05/17/19 Acetaminophen* (Acetaminophen* Susp) 160 Mg/5 Ml Oral.susp, 20 ML GTB Q4H PRN fo r PAIN, ML AND TEMP>100.5 05/17/19 Discontinued Reported Medications Levalbuterol Hcl* (Xopenex*) 1.25 Mg/0.5 Ml Vial.neb, 1.25 MG INHALATION Q6H for WHEEZING AND SOB, EA 03/17/19 Levalbuterol Hcl* (Levalbuterol Hcl*) 1.25 Mg/0.5 Ml Vial.neb, 1.25 MG INHALATI ON Q3H, VIAL 03/17/19 Ascorbic Acid (Vitamin C) 500 Mg Tab, 500 MG GTB DAILY, TAB 03/17/19 Cran/Vitc/Mannose/Inulin/Brom (Uti-Stat Liquid) 3,875 Mg/30 Ml Liquid, 30 ML GTB BID 03/17/19 Acetaminophen* (Acetaminophen*) 500 MG Extra Strength Tablet, 1000 MG PO Q4H PRN for NEEDED, TAB UNTIL 04/16/19 03/17/19 Acetaminophen* (Tylenol*) 325 Mg Tablet, 650 MG GTB BID PRN for PAIN MGT, TAB 03/17/19 Acetaminophen* (Tylenol*) 325 Mg Tablet, 650 MG GTB Q4H PRN for MILD PAIN LEVEL 1-3, TAB AND FEVER 101F, END DATE 04/16/19 03/17/19 Acetaminophen* (Tylenol*) 325 Mg Tablet, 650 MG GTB NEEDED PRN for TRACH TUBE CHANGE, TAB 03/17/19 Epoetin Amor (Procrit) 4,000 Unit/1 Ml Vial, 4000 UNIT IJ Q WED, VIAL 03/17/19 Amino Acids/Protein Hydrolys (PRO-STAT LIQUID) 30 Ml Liquid.pkt, 30 ML GTB DAILY 03/17/19 Multivitamins* (Theragran*) 1 Tab Tab, 1 TAB GTB DAILY, TAB 03/17/19 Magnesium Hydroxide* (Milk Of Magnesia*) 400 Mg/5 Ml Oral.susp, 30 ML GTB NEEDED, ML END DATE 04/16/19 03/17/19 Metoprolol Tartrate* (Lopressor*) 25 Mg Tab, 25 MG GTB BID, #60 TAB HOLD IF SBP<110 OR HR<60 03/17/19 Levetiracetam* (Levetiracetam*) 500 Mg/5 Ml Solution, 2.5 ML PO Q12H, ML 03/17/19 Mineral Oil* (Fleet* Mineral Oil Enema) Unknown Strength Oil, 1 APPLIC UT NEEDED PRN for CONSTIPATION, ENEMA 03/17/19 Bisacodyl (Dulcolax) 10 Mg Supp.rect, 10 MG RC NEEDED, SUPP.RECT UNTIL 04/16/19 03/17/19 Digoxin* (Digox*) 125 Mcg Tablet, 0.125 MG GTB DAILY PRN for HOLD IF HR<60, TAB 03/17/19 Docusate Sodium* (Colace*) 100 Mg Capsule, 100 MG GTB DAILY, #30 CAP 03/17/19 Chlorhexidine Gluconate (Peridex) 473 Ml Mouthwash, 15 ML MM Q12H, BOTTLE 03/17/19 Medications Current Medications Miscellaneous Information (Pending [facility] Order For Wound Care) This patient marks... PRN PRN XX WOUND CARE; Start 05/18/19 at 01:00 Apixaban (Eliquis) 5 mg BID GTB Last administered on 05/20/19at 09:26; Admin Dose 5 MG; Start 05/18/19 at 09:00 Chlorhexidine Gluconate (Peridex) 15 ml BID MM Last administered on 05/20/19 09:27; Admin Dose 15 ML; Start 05/18/19 at 09:00 Zinc Sulfate (Zinc Sulfate) 220 mg DAILY GTB Last administered on 05/20/19 09:25; Admin Dose 220 MG; Start 05/18/19 at 09:00 Lactobacillus Acidophilus (Florajen3 Capsule) 1 each DAILY GTB Last administered on 05/20/19 09:24; Admin Dose 1 EACH; Start 05/18/19 at 09:00 Epoetin Amor-epbx (Retacrit (Esrd)) 10,000 unit We@1700 SC ; Start 05/21/19 at 17:00 Budesonide (Pulmicort (Neb)) 1 mg BID RESP THERAPY INH Last administered on 05/20/19 08:26; Admin Dose 1 MG; Start 05/18/19 at 09:00 Dextrose 1,000 ml @ 60 mls/hr [id number] IV Last administered on 05/20/19 05:35; Admin Dose 60 MLS/HR; Start 05/18/19 at 01:30 Levalbuterol (Xopenex Hfa) 2 puff Q6H RESP THERAPY INH Last administered on 05/20/19 08:25; Admin Dose 2 PUFF; Start 05/18/19 at 02:00 Digoxin (Digoxin) 0.125 mg DAILY GTB Last administered on 05/20/19 09:26; Admin Dose 0.125 MG; Start 05/18/19 at 09:00 Ascorbic Acid (Vitamin C) 500 mg BID GTB Last administered on 05/20/19 09:24; Admin Dose 500 MG; Start 05/18/19 at 09:00 Acetaminophen (Tylenol Liquid) 650 mg Q4H PRN GTB MILD PAIN(1-3)OR ELEVATED TEMP; Start 05/18/19 at 05:00 Cefepime HCl 50 ml @ 100 mls/hr Q12 IVPB Last administered on 05/20/19 09:24; Admin Dose 100 MLS/HR; Start 05/18/19 at 14:00 Vancomycin HCl (Vancomycin Oral Syringe) 250 mg Q6 PO Last administered on 05/20/19 05:35; Admin Dose 250 MG; Start 05/19/19 at 15:00 Caspofungin 50 mg/ Sodium Chloride 250 ml @ 250 mls/hr Q24H IVPB ; Start 05/20/19 at 18:00 Metoprolol Tartrate (Lopressor) 75 mg BID GTB Last administered on 05/20/19at 09:26; Admin Dose 75 MG; Start 05/19/19 at 21:00 Assessment/Plan Hospital Course (Demo Recall) 1.PVC-improved on BB EF 65% by echo 10/29. neg trop x 3 - no new sustained episodes now. Rate controlled - con't monitoring. 2.H/o Bradycardia-to 50's, now a. fib/ afl at 80s - con't to follow. NO indication for pacer now. 3.HTN- better now, con't to adjust rx 4.REsp failure-chronic s/p trach - pulmary tetam follows - con't supportiver Rx. 5.SVT-short run. Again recurrent short run at approx 150-160 ? PAFL/AT 03/31. NO recurrence since increase to BB - now rate controlled - rate controlled now. 6.Anemia - H/h stable now - ni bleeding. 7. Secondary hypercoag satte - on Eliquis now - con't to monitor. KINGSTON HEARD MD May 20, 2019 11:32
--- NOTE | 2019-05-20 12:14 | CONS ---
Consultation Date/Type/Reason Admit Date/Time May 17, 2019 at 10:35 Initial Consult Date Type of Consult Patient's condition is stable. Has remained hemodynamically stable. General exam; elderly woman, on ventilator via tracheostomy, noncommunicative. Currently no distress. H ENT exam; supple neck, no JVD. No lymphadenopathy. Midline trachea. No thyromegaly. Tracheostomy in place. Patient is edentulous. Chest exam; diminished but clear breath sounds. S1-S2 audible, no murmurs. Abdomen exam; soft, no organomegaly. G-tube in place. Bowel sounds are audible. Extremity exam; no peripheral edema. VIDEO PRODUCTION COORDINATOR exam; patient is noncommunicative. Ventilator setting; assist control of 18, tidal volume 500, PEEP of 5, 35% FiO2. Assessment and recommendations; 1. Patient with history of VDRF and chronic encephalopathy admitted for sepsis due to pneumonia. Currently on appropriate antimicrobial regimen. 2. History of hypertension and cardiac arrhythmia. 3. Anemia. 4. Improving hypernatremia. Continue current supportive care. Patient responding well to current treatment regimen. Requesting Provider: JAYLEN LUGO MD Date/Time of Note DATE: 05/20/19 TIME: 12:13 Exam/Review of Systems Exam Vitals Vital Signs Date Temp Pulse Resp B/P (MAP) Pulse Ox O2 O2 Flow FiO2 Time Delivery Rate 05/20/19 98.0 22 134/66 99 Mechanical 08:38 (88) Ventilator Trach Collar 05/20/19 76 06:05 05/20/19 35 05:19 Intake and Output 05/19/19 05/19/19 05/20/19 1515:00 23:00 07:00 IntakeIntake Total 1200 ml 850 ml OutputOutput Total 700 ml 1450 ml BalanceBalance 500 ml -600 ml Results Result Diagram: 05/20/19 0611 05/19/19 0658 Results 24hrs Laboratory Tests Test 05/20/19 06:11 White Blood Count 12.3 #H Red Blood Count 3.07 #L Hemoglobin 9.5 #L Hematocrit 29.7 #L Mean Corpuscular Volume 96.7 Mean Corpuscular Hemoglobin 30.9 Mean Corpuscular Hemoglobin Concent 32.0 Red Cell Distribution Width 19.6 H Platelet Count 334 Mean Platelet Volume 9.9 Immature Granulocytes % 7.800 H Neutrophils % Segmented Neutrophils % (Manual) 60 Band Neutrophils % (Manual) 17 H Lymphocytes % Lymphocytes % (Manual) 11 L Monocytes % Monocytes % (Manual) 4 Eosinophils % Eosinophils % (Manual) 5 Basophils % Metamyelocytes % (manual) 1 H Myelocytes % (Manual) 2 H Nucleated Red Blood Cells % 0.3 H Immature Granulocytes # 0.960 H Neutrophils # Neutrophils # (Manual) 7.6 H Band Neutrophils # 2.0 H Lymphocytes (Manual) 1.3 Lymphocytes # Monocytes # Monocytes # (Manual) 0.4 Eosinophils # Basophils # Metamyelocytes # 0.1 H Myelocytes # 0.2 H Nucleated Red Blood Cells # Platelet Estimate NORMAL Giant Platelets 2 H Platelet Morphology Comment @See below Polychromasia 1+ Anisocytosis 1+ Medications Medication Current Medications Miscellaneous Information (Pending Santyl Order For Wound Care) This patient marks... PRN PRN XX WOUND CARE; Start 05/18/19 at 01:00 Apixaban (Eliquis) 5 mg BID GTB Last administered on 05/20/19 09:26; Admin Dose 5 MG; Start 05/18/19 at 09:00 Chlorhexidine Gluconate (Peridex) 15 ml BID MM Last administered on 05/20/19 09:27; Admin Dose 15 ML; Start 05/18/19 at 09:00 Zinc Sulfate (Zinc Sulfate) 220 mg DAILY GTB Last administered on 05/20/19 09:25; Admin Dose 220 MG; Start 05/18/19 at 09:00 Lactobacillus Acidophilus (Florajen3 Capsule) 1 each DAILY GTB Last administere d on 05/20/19 09:24; Admin Dose 1 EACH; Start 05/18/19 at 09:00 Epoetin Amor-epbx (Retacrit (Esrd)) 10,000 unit We@1700 SC ; Start 05/21/19 at 17:00 Budesonide (Pulmicort (Neb)) 1 mg BID RESP THERAPY INH Last administered on 05/20/19 08:26; Admin Dose 1 MG; Start 05/18/19 at 09:00 Dextrose 1,000 ml @ 60 mls/hr [id number] IV Last administered on 05/20/19at 05:35; Admin Dose 60 MLS/HR; Start 05/18/19 at 01:30 Levalbuterol (Xopenex Hfa) 2 puff Q6H RESP THERAPY INH Last administered on 05/20/19 08:25; Admin Dose 2 PUFF; Start 05/18/19 at 02:00 Digoxin (Digoxin) 0.125 mg DAILY GTB Last administered on 05/20/19 09:26; Admin Dose 0.125 MG; Start 05/18/19 at 09:00 Ascorbic Acid (Vitamin C) 500 mg BID GTB Last administered on 05/20/19 09:24; Admin Dose 500 MG; Start 05/18/19 at 09:00 Acetaminophen (Tylenol Liquid) 650 mg Q4H PRN GTB MILD PAIN(1-3)OR ELEVATED TEMP; Start 05/18/19 at 05:00 Cefepime HCl 50 ml @ 100 mls/hr Q12 IVPB Last administered on 05/20/19 09:24; Admin Dose 100 MLS/HR; Start 05/18/19 at 14:00 Vancomycin HCl (Vancomycin Oral Syringe) 250 mg Q6 PO Last administered on 05/20/19 05:35; Admin Dose 250 MG; Start 05/19/19 at 15:00 Caspofungin 50 mg/ Sodium Chloride 250 ml @ 250 mls/hr Q24H IVPB ; Start 05/20/19 at 18:00 Metoprolol Tartrate (Lopressor) 75 mg BID GTB Last administered on 05/20/19 09:26; Admin Dose 75 MG; Start 05/19/19 at 21:00 GABRIEL TODD May 20, 2019 12:14
--- NOTE | 2019-05-20 14:25 | PN ---
DATE: 05/20/2019 The patient's general condition is the same. She is noncognitive, no eye opening. She is on long-te rm ventilator support through tracheostomy. PHYSICAL EXAMINATION: VITAL SIGNS: Temperature 97.8, blood pressure 144/70, pulse rate 87, respirations 20, pulse oximetry 100% saturation. She is on 35% oxygen, no fever spikes in the last 24 hours. NECK: Tracheal secretions are minimal to moderate. No gross bleeding seen. HEART: Irregular rhythm showing atrial fibrillation. CHEST: Breath sounds are diminished in both the mid and the lower lung corona with intermittent rale s and rhonchi. ABDOMEN: Soft, tolerating tube feedings. Bowel sounds are present. No distention seen. EXTREMITIES: Show no edema. Generalized spasticity in all the extremities. LABORATORY DATA: Today's lab tests show sodium 145, potassium 3.2, BUN decreased to 59, creatinine a lmost same 0.71, glucose 132. CBC shows a WBC count higher at 12,300, hemoglobin 9.5, hematocrit 29. 7, platelets within normal limits. After blood transfusion. Hemoglobin and hematocrit have stabiliz ed and improved. The sputum culture is reported to show Providencia stuartii and Acinetobacter baumannii. In fact, se nsitivity is awaited. IMPRESSION: 1. Ventilator-associated healthcare-acquired pneumonia. 2. Chronic encephalopathy. 3. History of chronic obstructive lung disease. 4. History of pulmonary fibrosis. 5. Atrial fibrillation. 6. History of congestive heart failure. 7. Chronic anemia. 8. Acute kidney injury, probably secondary to dehydration. 9. History of seizure disorder. 10. History of cerebrovascular accident in the past. RECOMMENDATIONS: 1. Continue ventilator support for long-term. 2. Continue antibiotics as per the infectious disease marketing database consultant's recommendations. 3. Continue bronchodilator inhalation therapy. 4. Continue steroid inhalation therapy. 5. Deep venous thrombosis prophylaxis. 6. Gastrointestinal prophylaxis. Dictated By: KORTNEY GAMEZ MD SR/NTS Conf#: [id number] DID#: [id number] CC: JAYLEN LUGO MD;*EndCC*
--- NOTE | 2019-05-20 14:26 | CONS ---
Assessment/Plan Assessment/Plan Hospital Course (Demo Recall) Patient is noncommunicative looks comfortable afebrile WBC 12.3 bands 17 BUN 59 creatinine 0.71 lactic acid 2.2 Microbiology: Urine culture on admission grew Janine albicans, endotracheal aspirate growing Acinetobacter Ernesto and probably dentia, blood cultures negative, stool for C. difficile positive Indwelling: Trach, PEG, Damon, right upper extremity PICC line Antimicrobials: Cancidas, PO vancomycin, cefepime Physical examination: Chronically ill-appearing elderly woman who is in no distress. Head atraumatic normocephalic neck is supple tracheostomy present chest rise symmetrical breath sounds diminished bases heart: S1-S2. Abdomen soft bowel sounds present. Extremities with trace edema Assessment: 1. Sepsis, present on admission 2. Urinary tract infection, possibly colonized 3. Healthcare associated pneumonia 4. History of seizure 5. History of diverticulitis with abscess 6. C. difficile colitis 7. DNR Plan: Change cefepime to colistin INH Consultation Date/Type/Reason Admit Date/Time May 17, 2019 at 10:35 Initial Consult Date Type of Consult id Requesting Provider: JAYLEN LUGO MD Date/Time of Note DATE: 05/20/19 TIME: 14:25 Exam/Review of Systems Exam Vitals Vital Signs Date Temp Pulse Resp B/P (MAP) Pulse Ox O2 O2 Flow FiO2 Time Delivery Rate 05/20/19 97.5 91 18 128/68 96 Mechanical 12:29 (88) Ventilator Trach Collar 05/20/19 35 05:19 Intake and Output 05/19/19 05/19/19 05/20/19 1515:00 23:00 07:00 IntakeIntake Total 1200 ml 850 ml OutputOutput Total 700 ml 1450 ml BalanceBalance 500 ml -600 ml Results Result Diagram: 05/20/19 0611 05/19/19 0658 Results 24hrs Laboratory Tests Test 05/20/19 05:00 05/20/19 06:11 Blood Gas Specimen Source Blood arterial Arterial Blood Date Drawn 05/20/2019 1:25:16 PM Arterial Blood pH (Temp corrected) 7.385 Arterial Blood pCO2 (Temp correct) 38.2 Arterial Blood pO2 (Temp corrected) 140.0 H Arterial Blood HCO3 22.3 Arterial Blood Base Excess -2.4 Arterial Blood Oxygen Saturation 98.5 Jeremie Test ACCEPTAB Arterial Blood Gas Puncture Site Left Radial Arterial Blood Carboxyhemoglobin 0.3 Arterial Blood Methemoglobin 0.1 Blood Gas A-a O2 Differential 65.1 H Oxyhemoglobin Percent 98.1 Blood Gas Temperature 37.0 Blood Gas Respiration Rate 16.0 Blood Gas Actual Respiration Rate 18 Blood Gas Modality VENT - AC FiO2 35.0 Blood Gas Tidal Volume 500.0 Blood Gas Low PEEP Setting 5.0 Blood Gas Notified Whom TM Blood Gas Notified Time 05/20/2019 1:38:12 PM White Blood Count 12.3 #H Red Blood Count 3.07 #L Hemoglobin 9.5 #L Hematocrit 29.7 #L Mean Corpuscular Volume 96.7 Mean Corpuscular Hemoglobin 30.9 Mean Corpuscular Hemoglobin Concent 32.0 Red Cell Distribution Width 19.6 H Platelet Count 334 Mean Platelet Volume 9.9 Immature Granulocytes % 7.800 H Neutrophils % Segmented Neutrophils % (Manual) 60 Band Neutrophils % (Manual) 17 H Lymphocytes % Lymphocytes % (Manual) 11 L Monocytes % Monocytes % (Manual) 4 Eosinophils % Eosinophils % (Manual) 5 Basophils % Metamyelocytes % (manual) 1 H Myelocytes % (Manual) 2 H Nucleated Red Blood Cells % 0.3 H Immature Granulocytes # 0.960 H Neutrophils # Neutrophils # (Manual) 7.6 H Band Neutrophils # 2.0 H Lymphocytes (Manual) 1.3 Lymphocytes # Monocytes # Monocytes # (Manual) 0.4 Eosinophils # Basophils # Metamyelocytes # 0.1 H Myelocytes # 0.2 H Nucleated Red Blood Cells # Platelet Estimate NORMAL Giant Platelets 2 H Platelet Morphology Comment @See below Polychromasia 1+ Anisocytosis 1+ Medications Medication Current Medications Miscellaneous [facility] This patient marks... PRN PRN XX WOUND CARE; Start 05/18/19 at 01:00 Apixaban (Eliquis) 5 mg BID GTB Last administered on 05/20/19at 09:26; Admin Dose 5 MG; Start 05/18/19 at 09:00 Chlorhexidine Gluconate (Peridex) 15 ml BID MM Last administered on 05/20/19at 09:27; Admin Dose 15 ML; Start 05/18/19 at 09:00 Zinc Sulfate (Zinc Sulfate) 220 mg DAILY GTB Last administered on 05/20/19at 09:25; Admin Dose 220 MG; Start 05/18/19 at 09:00 Lactobacillus Acidophilus (Florajen3 Capsule) 1 each DAILY GTB Last administered on 05/20/19 09:24; Admin Dose 1 EACH; Start 05/18/19 at 09:00 Epoetin Amor-epbx (Retacrit (Esrd)) 10,000 unit We@1700 SC ; Start 05/21/19 at 17:00 Budesonide (Pulmicort (Neb)) 1 mg BID RESP THERAPY INH Last administered on 05/20/19 08:26; Admin Dose 1 MG; Start 05/18/19 at 09:00 Dextrose 1,000 ml @ 60 mls/hr [id number] IV Last administered on 05/20/19 13:42; Admin Dose 60 MLS/HR; Start 05/18/19 at 01:30 Levalbuterol (Xopenex Hfa) 2 puff Q6H RESP THERAPY INH Last administered on 05/20/19 13:45; Admin Dose 2 PUFF; Start 05/18/19 at 02:00 Digoxin (Digoxin) 0.125 mg DAILY GTB Last administered on 05/20/19 09:26; Admin Dose 0.125 MG; Start 05/18/19 at 09:00 Ascorbic Acid (Vitamin C) 500 mg BID GTB Last administered on 05/20/19 09:24; Admin Dose 500 MG; Start 05/18/19 at 09:00 Acetaminophen (Tylenol Liquid) 650 mg Q4H PRN GTB MILD PAIN(1-3)OR ELEVATED TEMP; Start 05/18/19 at 05:00 Cefepime HCl 50 ml @ 100 mls/hr Q12 IVPB Last administered on 05/20/19 09:24; Admin Dose 100 MLS/HR; Start 05/18/19 at 14:00 Vancomycin HCl (Vancomycin Oral Syringe) 250 mg Q6 PO Last administered on 05/20/19 12:29; Admin Dose 250 MG; Start 05/19/19 at 15:00 Caspofungin 50 mg/ Sodium Chloride 250 ml @ 250 mls/hr Q24H IVPB ; Start 05/20/19 at 18:00 Metoprolol Tartrate (Lopressor) 75 mg BID GTB Last administered on 05/20/19 09:26; Admin Dose 75 MG; Start 05/19/19 at 21:00 DEBO UMANA NP May 20, 2019 14:26
[2019-05-20] MEDS ORDERED: CASPOFUNGIN 50 MG in SOD CHLORIDE 0.9% 250 ML IVPB SCH (18:00)
[2019-05-20] MEDS ORDERED: COLISTIMETHATE (25 MG/ML INHAL SYG) NEB SCH (20:00)
[2019-05-21] MEDS ORDERED: EPOETIN ALFA-EPBX (ESRD) 10,000 UNIT/ML VIAL SC SCH (17:00)
--- NOTE | 2019-05-26 10:02 | DS ---
Date/Time of Note Date/Time of Note DATE: 05/26/19 TIME: 09:58 Discharge Summary Admission/Discharge Info Admit Date/Time May 17, 2019 at 10:35 Discharge Date/Time May 20, 2019 at 22:00 Patient Condition: Stable Hx of Present Illness The patient is a 73-year-old female with chronic vent, GT, trach, chronic encephalopathy brought to the emergency department by paramedics from her care facility for evaluation of fever and tachycardia. Hospital Course Pt d/alvin to [facility] -Sepsis secondary to HCAP, continue antibiotics per ID, follow-up on cultures. Dr. Melendez is following in infection disease consultation. -C. difficile colitis, continue Vanco via G-tube -Atrial fibrillation with rapid ventricular response. Continue Eliquis and metoprolol. Dr. Romero is following in cardiology consultation. -Anemia, status post blood transfusion continue to monitor H&H. Continue Epogen and iron supplements. -Hypernatremia secondary to dehydration. -Ventilator dependent respiratory failure with tracheostomy. Dr. Davenport is following in pulmonology consultation. -Diastolic congestive heart failure. -Pulmonary fibrosis, continue Pulmicort. -Dysphagia with G-tube. -Chronic encephalopathy -COPD -History of CVA, continue aspirin. -Seizure disorder/status epilepticus. Continue Keppra and Ativan as needed. -MRSA nares colonization -Hx of Diverticular abscess which was too small for drainage by radiology and family declined any surgical intervention. -Hx of Severe diverticulosis with spasm per colonoscopy. Plan of care discussed with Dr. Phillips. Home Meds Reported Medications Zinc Sulfate* (Zinc Sulfate*) 220 Mg Tablet, 220 MG GTB DAILY, TAB STOP DATE 06/06/19 05/17/19 Vit C-Ascorbate Ca-Ascorb Sod (Vitamin C) 500 Mg/15 Ml Liquid, 500 MG GTB BID, ML STOP DATE 08/05/19 05/17/19 Balsam Wily/Davy Oil (Venelex Ointment) 60 Gm Oint..gm., 1 APPLIC TOP DAILY, #1 TUB APPLY TORIGHT BUTTOCK DTPI TOPICALLY. FOR 14 DAYS,STOP DATE 05/18/19 05/17/19 Budesonide* (Pulmicort*) 1 Mg/2 Ml Ampul.neb, 0.5 ML INHALATION BID, #60 AMP 05/17/19 Amino Acids/Protein Hydrolys (PRO-STAT LIQUID) 30 Ml Liquid.pkt, 30 ML GTB BID 05/17/19 Chlorhexidine Gluconate (Peridex) 473 Ml Mouthwash, 15 ML MM BID, BOTTLE 05/17/19 [Nephro-Antonio] No Conflict Check, 0.8 MG GTB DAILY 05/17/19 Metoprolol Tartrate* (Lopressor*) 50 Mg Tab, 50 MG GTB BID, #60 TAB HOLD FOR SBP<110 OR HR<60 05/17/19 Levalbuterol* (Xopenex*) 0.31 Mg/3 Ml Nebu, 0.31 MG INHALATION Q8, EA 05/17/19 Levalbuterol Hcl* (Xopenex*) 1.25 Mg/3 Ml Vial.neb, 1.25 MG INHALATION QID for WHEEZING AND SOB, EA OR NEEDED 05/17/19 Epoetin Amor (Epogen) 10,000 Units/Ml Soln, 4000 UNITS SC Q WED, VIAL 05/17/19 [Ipratropium Brom.] No Conflict Check, 0.5 ML QID IPRATROPIUM BROMIDE SOLUTION 0.02% 0.5ML VIA VENT. 05/17/19 Lactobacillus Acidophilus (Acidophilus) 1 Each Tablet, 1 EACH GTB DAILY, TAB FOR 14 DAYS, STOP DATE 05/27/19 05/17/19 Docusate Sodium* (Colace*) 100 Mg Capsule, 100 MG GTB DAILY, #30 CAP 05/17/19 Digoxin* (Digitek*) 125 Mcg Tablet, 0.125 MG GTB DAILY PRN for HOLD IF HR<60, TAB 05/17/19 Arginine/Ascorbate Sod/Antonio AC (Arginaid Powder) 1 Each Powd.pack, 1 EACH GTB BID STOP DATE 07/06/19 05/17/19 Apixaban* (Eliquis*) 5 Mg Tablet, 5 MG GTB BID, TAB 05/17/19 Acetaminophen* (Acetaminophen* Susp) 160 Mg/5 Ml Oral.susp, 20 ML GTB DAILY PRN for PAIN MANAGEMENT, ML 05/17/19 Acetaminophen* (Acetaminophen* Susp) 160 Mg/5 Ml Oral.susp, 20 ML GTB Q4H PRN for PAIN, ML AND TEMP>100.5 05/17/19 Primary Care Provider Higinio Phillips MD Time spent on discharge: > 30 minutes IMER VARGAS May 26, 2019 10:02
== END 2019-05-20 22:00 | disposition short-term general hospital (02) | DRG 871 ==
LOC: E/R 08:29 → TEL 10:35
PROVIDERS: ADMIT Internal Medicine; ATTEND Internal Medicine
PROC: 5A1945Z Respiratory Ventilation, 24-96 Consecutive Hours (ICD-10-PCS; principal; 2019-05-17)
PROC: 30233N1 Transfusion of Nonautologous Red Blood Cells into Peripheral Vein, Percutaneous Approach (ICD-10-PCS; 2019-05-19)
DX: A41.9 Sepsis, unspecified organism (principal); J18.9 Pneumonia, unspecified organism; T83.511A Infection and inflammatory reaction due to indwelling urethral catheter, initial encounter; Z99.11 Dependence on respirator [ventilator] status; N39.0 Urinary tract infection, site not specified; J96.10 Chronic respiratory failure, unspecified whether with hypoxia or hypercapnia; G93.40 Encephalopathy, unspecified; L03.116 Cellulitis of left lower limb; L03.115 Cellulitis of right lower limb; E46 Unspecified protein-calorie malnutrition; E87.2 Acidosis; A04.72 Enterocolitis due to Clostridium difficile, not specified as recurrent; E87.0 Hyperosmolality and hypernatremia; I50.30 Unspecified diastolic (congestive) heart failure; I48.2 Chronic atrial fibrillation; J44.9 Chronic obstructive pulmonary disease, unspecified; J84.10 Pulmonary fibrosis, unspecified; R13.10 Dysphagia, unspecified; D64.9 Anemia, unspecified; G40.909 Epilepsy, unspecified, not intractable, without status epilepticus; I10 Essential (primary) hypertension; I49.3 Ventricular premature depolarization; E78.5 Hyperlipidemia, unspecified; I25.10 Atherosclerotic heart disease of native coronary artery without angina pectoris; N18.9 Chronic kidney disease, unspecified; D63.1 Anemia in chronic kidney disease; Z79.02 Long term (current) use of antithrombotics/antiplatelets
CPT/HCPCS: 36430; 36600; 71045; 80048; 80053; 81001; 82803; 83605; 83735; 84100; 84145; 84484; 85025; 85610; 85730; 86850; 86900; 86901; 86920; 87070; 87075; 87081; 87086; 89220; 93005; 94002; 94003; 94640; 94664; 94667; 94668; 94799; 96374; 96375; J0692; J2185; J2997; J3370; J7030; J7050; J7070; P9016